=== PATIENT | female | born 1945 | race Caucasian/White ===

== ENCOUNTER 2021-01-28 10:16 | Emergency (ER) | payer MEDICARE, OTHER, SELFPAY ==
[2021-01-28 10:23] VITALS: BP 219/109; PULSE 100; O2SAT 98
[2021-01-28 10:28] VITALS: BP 209/82; PULSE 91; RESP 16; TEMP 36.2; O2SAT 98; BMI 39.4
--- NOTE | 2021-01-28 10:44 | ED.EPISTAXIS ---
History of Present Illness General Chief Complaint: Epistaxis <CHIO Sanderson Last Filed: 01/28/21 16:05> Stated Complaint: BLOODY NOSE, NOT ON BLOOD THINNERS <CHIO Sanderson Last Filed: 01/28/21 16:05> Time Seen by Provider: 01/28/21 10:21 <Marilyn Oliva NP - Last Filed: 01/28/21 16:05> Source: patient <CHIO Sanderson Last Filed: 01/28/21 16:05> Mode of arrival: ambulatory <CHIO Sanderson Last Filed: 01/28/21 16:05> Limitations: no limitations <CHIO Sanderson Last Filed: 01/28/21 16:05> History of Present Illness HPI Narrative: 75 yo female with past medical history of COPD, anemia, CHF, hypothyroidism, hypertension, DM, HLD here with complaints of epistaxis x 30 minutes. Patient tells me she was blowing her nose when she developed epistaxis. Not on anticoagulation. No SANTILLAN, dizziness, nausea, vomiting or vision changes. <CHIO Sanderson Last Filed: 01/28/21 16:05> Location: Yes bilateral nares <CHIO Sanderson Last Filed: 01/28/21 16:05> Related Data Home Medications: Previous Rx's Medication Instructions Recorded atorvastatin 40 mg tablet 40 mg PO BEDTIME 90 Days #90 tab 07/29/20 metformin 500 mg tablet 500 mg PO .five times a day 30 08/15/20 Days #150 tab amlodipine 5 mg tablet 5 mg PO DAILY #90 tab 09/07/20 gemfibrozil 600 mg tablet 600 mg PO BID #180 tab 09/07/20 glipizide 5 mg tablet 10 mg PO BID #360 tab 09/22/20 lorazepam 0.5 mg tablet 0.5 mg PO TID PRN 30 Days #90 tab 12/24/20 oxycodone 5 mg tablet 5 mg PO BID PRN 30 Days #60 tab 12/24/20 levothyroxine 200 mcg tablet 200 mcg PO DAILY #60 tab 12/25/20 <CHIO Sanderson Last Filed: 01/28/21 16:05> Allergies/Adverse Reactions: Allergies Allergy/AdvReac Type Severity Reaction Status Date / Time ibuprofen [From Motrin] Allergy Unknown swelling Verified 01/29/21 09:50 codeine [CODEINE] AdvReac Unknown SLEEPY Verified 01/29/21 09:50 <Marilyn Oliva NP - Last Filed: 01/28/21 16:05> Review of Systems Review of Systems: Yes all other systems are reviewed and are negative <Marilyn Oliva NP - Last Filed: 01/28/21 16:05> Constitutional: Constitutional: Reports no additional constitutional complaints, Denies body ache(s), Denies chills, Denies fever(s), Denies headache(s) and Denies weakness <Marilyn Oliva NP - Last Filed: 01/28/21 16:05> Eyes: Eyes: Reports no additional eye complaints and Denies change in vision <Marilyn Oliva NP - Last Filed: 01/28/21 16:05> ENT: Reports system reviewed and no additional complaints, except as documented, Denies dizziness, Denies headache(s), Reports epistaxis, Denies nasal congestion, Denies nasal discharge and Denies neck pain <Marilyn Oliva NP - Last Filed: 01/28/21 16:05> Cardiovascular: Cardiovascular: Reports no additional cardiovascular complaints, Denies chest pain, Denies leg edema and Denies dyspnea <Marilyn Oliva NP - Last Filed: 01/28/21 16:05> Respiratory: Respiratory: Reports no additional respiratory complaints, Denies cough and Denies dyspnea <Marilyn Oliva NP - Last Filed: 01/28/21 16:05> Gastrointestinal: Gastrointestinal: Reports no additional gastrointestinal complaints, Denies abdominal pain, Denies diarrhea, Denies nausea and Denies vomiting <Marilyn Oliva NP - Last Filed: 01/28/21 16:05> Genitourinary: Genitourinary: Reports no additional female genitourinary complaints and Denies urinary incontinence <Marilyn Oliva NP - Last Filed: 01/28/21 16:05> Musculoskeletal: Musculoskeletal: Reports no additional musculoskeletal complaints, Denies back pain, Denies arthralgias, Denies joint swelling, Denies neck pain, Denies numbness and Denies tingling <Marilyn Oliva NP - Last Filed: 01/28/21 16:05> Integumentary/Breasts: Skin/Breast: Reports system reviewed and no additional complaints, except as docu and Denies rash <Marilyn Oliva NP - Last Filed: 01/28/21 16:05> Neurologic: Reports system reviewed and no additional complaints, except as documented, Denies Abnormal speech present, Denies dizziness, Denies headache(s), Denies numbness, Denies tingling and Denies weakness <Marilyn Oliva NP - Last Filed: 01/28/21 16:05> [facility] Past Medical History Attestation statement: The following information was validated with the patient. <Marilyn Oliva NP - Last Filed: 01/28/21 16:05> Source: old records reviewed and nursing notes reviewed <Marilyn Oliva NP - Last Filed: 01/28/21 16:05> Medical History: Medical History (Updated 01/29/21 @ 11:03 by Neida Soto MD) Anxiety CHF (congestive heart failure) Chronic pain syndrome COPD (chronic obstructive pulmonary disease) Diabetes mellitus Essential hypertension Hypothyroidism Pernicious anemia Pure hypercholesterolemia <Marilyn Oliva NP - Last Filed: 01/28/21 16:05> Surgical History: Surgical History Deficient knowledge of leg surgery H/O left knee surgery History of appendectomy History of tonsillectomy and adenoidectomy <Marilyn Oliva NP - Last Filed: 01/28/21 16:05> Family History Family History: Family History Father CVD (cardiovascular disease) Mother No problems noted. Family/Other FH: mental illness <Marilyn Oliva NP - Last Filed: 01/28/21 16:05> Social History Social History: Social History Smoking Status: Former smoker Tobacco Type: Cigarette <Marilyn Oliva NP - Last Filed: 01/28/21 16:05> Physical Exam Vital Signs: Vital Signs: Last Vital Signs Temp 97.2 F 01/28/21 10:28 Pulse 73 01/28/21 10:51 Resp 20 01/28/21 10:51 BP 160/73 H 01/28/21 10:51 Pulse Ox 98 01/28/21 10:51 Body Mass Index 39.4 <Marilyn Oliva NP - Last Filed: 01/28/21 16:05> Vital Signs: Last Vital Signs Temp 97.2 F 01/28/21 10:28 Pulse 73 01/28/21 10:51 Resp 20 01/28/21 10:51 BP 160/73 H 01/28/21 10:51 Pulse Ox 98 01/28/21 10:51 Body Mass Index 39.4 <Wagner Ferrera MD - Last Filed: 02/12/21 07:43> Const: General: cooperative, healthy appearing, comfortable and no acute distress <Marilyn Oliva NP - Last Filed: 01/28/21 16:05> Orientation/consciousness: patient oriented x3 <Marilyn Oliva NP - Last Filed: 01/28/21 16:05> Limitations: no limitations <Marilyn Oliva NP - Last Filed: 01/28/21 16:05> HENMT: Head: Yes normal to inspection <Marilyn Oliva NP - Last Filed: 01/28/21 16:05> Ears: hearing grossly normal bilaterally <Marilyn Oliva NP - Last Filed: 01/28/21 16:05> General nose exam: Normal external nose present and Epistaxis present (Dried blood at the nares. Left nare no active, right nare small anterior) <Marilyn Oliva NP - Last Filed: 01/28/21 16:05> Face and sinus: Yes normal facial exam <Marilyn Oliva NP - Last Filed: 01/28/21 16:05> Mouth: Normal oral and palatal mucosa present <Marilyn Oliva NP - Last Filed: 01/28/21 16:05> Throat: Yes posterior oropharynx normal <Marilyn Oliva NP - Last Filed: 01/28/21 16:05> Eyes: General: appearance normal, both eyes and all related structures <Marilyn Oliva NP - Last Filed: 01/28/21 16:05> Pupils: Equal, round and reactive pupils present <Marilyn Oliva NP - Last Filed: 01/28/21 16:05> Neck: Neck: Yes normal visual inspection <Marilyn Oliva NP - Last Filed: 01/28/21 16:05> Chest: Chest palpation & inspection: normal inspection of the chest <Marilyn Oliva NP - Last Filed: 01/28/21 16:05> Resp: Effort & Inspection: normal respiratory effort <Marilyn Oliva NP - Last Filed: 01/28/21 16:05> Auscultation: clear to auscultation bilaterally <Marilyn Oliva NP - Last Filed: 01/28/21 16:05> Cardio: Rate: regular rate <Marilyn Oliva NP - Last Filed: 01/28/21 16:05> Rhythm: regular rhythm <Marilyn Oliva NP - Last Filed: 01/28/21 16:05> Peripheral pulses: Peripheral pulses 2+ throughout <Marilyn Oliva NP - Last Filed: 01/28/21 16:05> GI: Inspection: Yes normal to inspection <Marilyn Oliva NP - Last Filed: 01/28/21 16:05> Palpation (GI): Soft to palpation and nontender <Marilyn Oliva NP - Last Filed: 01/28/21 16:05> Auscultation: normal bowel sounds <Marilyn Oliva NP - Last Filed: 01/28/21 16:05> Back/Spine/Pelvis: Thoracic/Lumbar Spine: thoracic and lumbar spine normal to inspection <Marilyn Oliva NP - Last Filed: 01/28/21 16:05> Skin: General skin exam: no rashes or lesions noted <Marilyn Oliva NP - Last Filed: 01/28/21 16:05> Neuro: General: patient oriented x3, no focal motor deficits and normal sensation to monofilament <Marilyn Oliva NP - Last Filed: 01/28/21 16:05> Cranial nerves: Yes Equal, round and reactive pupils present <Marilyn Oliva NP - Last Filed: 01/28/21 16:05> Cognition (Neuro): normal cognition <Marilyn Oliva NP - Last Filed: 01/28/21 16:05> Speech: No Abnormal speech present <Marilyn Oliva NP - Last Filed: 01/28/21 16:05> Gait exam (Neuro): Normal gait present <Marilyn Oliva NP - Last Filed: 01/28/21 16:05> Motor exam (neuro): 5/5 motor strength present throughout <Marilyn Oliva NP - Last Filed: 01/28/21 16:05> Extrem: General: Yes normal to inspection <Marilyn Oliva NP - Last Filed: 01/28/21 16:05> Course Course Course Narrative: 75-year-old female here with epistaxis from bilateral nares times 30 minutes. No anticoagulation use. On arrival patient has 1 small area of epistaxis in the right anterior Reynoso. Left Reynoso no active bleeding. Will apply topical TXA for 30 minutes and reassess. 1120-packing removed. No active bleeding. Will monitor for short time prior to dispo. Blood pressure improving with no intervention. 1205-Patient monitored in ED for 2 hrs with no continued bleeding. Plan for discharge home. Reviewed worrisome signs and symptoms of when to return to the emergency department. Comfortable discharge home. <Marilyn Oliva NP - Last Filed: 01/28/21 16:05> I have reviewed the chart <Wagner Ferrera MD - Last Filed: 02/12/21 07:43> MDM - Epistaxis Medical Records Attestation: I reviewed the patient's medical records. <Marilyn Oliva NP - Last Filed: 01/28/21 16:05> Lab Data Attestation: I reviewed the patient's lab results. <Marilyn Oliva NP - Last Filed: 01/28/21 16:05> Discharge Plan Discharge Clinical Impression: Epistaxis <Marilyn Oliva NP - Last Filed: 01/28/21 16:05> Patient Disposition: Home, Self-Care <Marilyn Oliva NP - Last Filed: 01/28/21 16:05> Instructions: Nosebleed (ED) <Marilyn Oliva NP - Last Filed: 01/28/21 16:05> Additional Instructions: Keep the nose well lubricated with Vaseline or Aquaphor Avoid blowing the nose today No picking at the nose and any future blowing must be gentle <Marilyn Oliva NP - Last Filed: 01/28/21 16:05> Prescriptions: No Action atorvastatin 40 mg tablet 40 mg PO BEDTIME 90 Days Qty: 90 RF: 3 metformin 500 mg tablet 500 mg PO .five times a day 30 Days Qty: 150 RF: 11 gemfibrozil 600 mg tablet 600 mg PO BID Qty: 180 RF: 1 amlodipine 5 mg tablet 5 mg PO DAILY Qty: 90 RF: 1 glipizide 5 mg tablet 10 mg PO BID Qty: 360 RF: 1 lorazepam 0.5 mg tablet 0.5 mg PO TID PRN (Reason: anxiety) 30 Days Qty: 90 RF: 0 oxycodone 5 mg tablet 5 mg PO BID PRN (Reason: pain) 30 Days Qty: 60 RF: 0 levothyroxine 200 mcg tablet 200 mcg PO DAILY Qty: 60 RF: 3 <Marilyn Oliva NP - Last Filed: 01/28/21 16:05> Referrals: Neida Mirza MD [Primary Care Provider] - 2 days <Marilyn Oliva NP - Last Filed: 01/28/21 16:05> Interventions: ED Discharge Assessment Last Done: 01/28/21 12:55 <Marilyn Oliva NP - Last Filed: 01/28/21 16:05> Discharge Date/Time: 01/28/21 12:55 <Marilyn Oliva NP - Last Filed: 01/28/21 16:05>
[2021-01-28] MEDS: Tranexamic Acid 1,000 MG/10 ML VIAL 500 MG INTRANASAL (10:50)
[2021-01-28 10:51] VITALS: BP 160/73; PULSE 73; RESP 20; O2SAT 98
== END 2021-01-28 12:55 | disposition home or self-care (01) ==
PROVIDERS: Emergency Provider Emergency Medicine; PCP Internal Medicine
DX: R04.0 Epistaxis (principal); J44.9 Chronic obstructive pulmonary disease, unspecified; E11.9 Type 2 diabetes mellitus without complications; E03.9 Hypothyroidism, unspecified; Z87.891 Personal history of nicotine dependence; Z79.899 Other long term (current) drug therapy
CPT/HCPCS: 30901; 99284

== ENCOUNTER 2021-11-10 00:58 | Inpatient (IN) | payer MEDICARE, OTHER, SELFPAY ==
[2021-11-10] VITALS (37 sets, daily range): BP systolic 68–166; BP diastolic 17–88; PULSE 43–77; RESP 7–44; TEMP 33.7–36.8; O2SAT 3–100; BMI 48.6
--- NOTE | ~2021-11-10 | XR_ITS ---
EXAMINATION: XR CHEST CLINICAL INFORMATION: Shortness of breath COMPARISON: 06/16/2019 TECHNIQUE: Frontal view of the chest was obtained. FINDINGS: Cardiomegaly and pulmonary venous congestion. Bilateral perihilar patchy airspace opacities. Small bilateral pleural effusions suspected. No pneumothorax. XR/XR chest 1V IMPRESSION: Bilateral patchy airspace opacities could represent pulmonary edema or atypical pneumonitis.
--- NOTE | ~2021-11-10 | XR_ITS ---
EXAMINATION: XR CHEST CLINICAL INFORMATION: Dialysis, port placement COMPARISON: 11/10/2021 TECHNIQUE: Frontal view of the chest was obtained. FINDINGS: Catheter overlying the superior vena cava. There is no pneumothorax. Developing left basilar opacity may be infiltrate or atelectasis and or effusion. The right lung is comparable to previous. Findings suggest vascular congestion. XR/XR chest 1V IMPRESSION: Catheter overlying superior vena cava. There is no pneumothorax. Developing left basilar opacity. Attention to follow-up. There is vascular congestion here as well.
--- NOTE | ~2021-11-10 | CT_ITS ---
EXAMINATION: CT CHEST WITHOUT CONTRAST CT ABDOMEN AND PELVIS WITHOUT CONTRAST CLINICAL INFORMATION: Congestive heart failure. Chest pain and abdominal pain. Rule out third spacing. COMPARISON: Multiple previous chest x-rays with the last chest x-ray of 11/10/2021. Chest CT of 06/06/2019, 05/28/[address] scan of 05/20/2019. TECHNIQUE: Multidetector volumetric CT imaging of the chest, abdomen and pelvis is acquired without intravenous contrast administration. Postprocessing is performed at a dedicated workstation. Multiplanar reformatted images are submitted. This CT scan was performed using dose optimization techniques as appropriate to a performed exam including the following: *Automated exposure control *Adjustment of mA and/or kV according to patient size (this includes techniques or standardized protocols for targeted exams were dose is matched to indication/reason for exam; i.e. extremities or head) *Use of iterative reconstruction technique DLP: 2032 mGy-cm. FINDINGS: CHEST: There is no evidence of axillary, mediastinal or hilar adenopathy. Mild cardiomegaly. No pericardial effusion. Three-vessel coronary calcifications are noted. Trachea and central bronchi are well patent. Trace bilateral pleural effusions with mild dependent atelectasis in the lung bases. Trace effusions are noted in the bilateral fissure. There is interlobular septal thickening with faint scattered ground-glass opacities. The findings likely represent interstitial edema with mild alveolar edema. Additionally there is a more focal patchy airspace opacity in the posterior right upper lobe (series 5 image 20). Additional small patchy opacities noted in the more inferior right upper lobe. No discrete pulmonary nodules or masses are seen. The visualized chest wall soft tissues are grossly unremarkable. ABDOMEN AND PELVIS: The unenhanced liver, gallbladder, biliary tree, spleen and pancreas are unremarkable. No adrenal nodule. The kidneys are normal in size, shape and attenuation for patient's age. A 0.8 cm partially exophytic isodense lesion from the lateral cortex of the lower pole of the right kidney is a stable finding since previous CT of 05/20/2019 and probably represents a benign lesion/cyst. No evidence of radiopaque urinary tract calculi, hydroureteronephrosis or significant perinephric stranding. The stomach is decompressed. No abnormal small-bowel dilatation. The appendix is not clearly identified; however, there are no inflammatory changes in the expected location of the appendix. Colon is normal in caliber. No evidence of colonic wall thickening. There is moderate stool burden in the colon. No evidence of intestinal pneumatosis. Diffuse mesenteric stranding is noted. No free intraperitoneal air or fluid. There is diffuse anasarca in the visualized abdominal and pelvic wall. Mild thickening of the skin is noted in the lower abdomen/pelvis anteriorly. The bladder is decompressed due to Moyer catheter in place. Unremarkable CT appearance of the uterus and ovaries/adnexa. There is no evidence of pathologically enlarged lymph nodes. The aortoiliac vessels are normal in caliber. Moderate calcific atherosclerosis of the aorta. OSSEOUS STRUCTURES: There is no evidence of acute or suspicious osseous lesion in the chest, abdomen and pelvis. Multilevel degenerative changes in the spine. Mild degenerative changes in the bilateral hips. CT/CT abdomen pelvis wo con IMPRESSION: 1. Findings suggestive of mild pulmonary interstitial edema and probable minimal alveolar edema. Trace bilateral pleural effusions with associated bibasilar mild atelectasis. 2. Focal airspace opacities in the right upper lobe could be inflammatory or infectious in etiology. 3. No ascites. Diffuse anasarca in the visualized abdominal wall. Diffuse mesenteric stranding. 4. Moderate stool burden in the colon without evidence of abnormal bowel dilatation or bowel obstruction. 5. Cardiomegaly with 3-vessel coronary calcifications.
--- NOTE | ~2021-11-10 | XR_ITS ---
EXAMINATION: XR CHEST CLINICAL INFORMATION: Increased shortness of breath. Evaluate for congestive heart failure. COMPARISON: 11/10/2021 at 1:46 AM TECHNIQUE: Frontal view of the chest was obtained. FINDINGS: Stable cardiomegaly and pulmonary venous congestion, and bilateral perihilar patchy/streaky airspace opacities. No large pleural effusion. There may be small bilateral pleural effusions. No pneumothorax. XR/XR chest 1V IMPRESSION: Stable portable radiographic appearance of the chest. There could be interstitial and mild alveolar pulmonary edema, or atypical pneumonitis.
--- NOTE | 2021-11-10 01:26 | ED_ITS ---
HPI - SOB/Dyspnea General Chief Complaint: Dyspnea Stated Complaint: SOB 86% RA 96% 2LPM Time Seen by Provider: 11/10/21 01:11 Source: patient and EMS Limitations: no limitations History of Present Illness HPI Narrative: This is a 76-year-old female with history of COPD, CHF, pernicious anemia, hypertension, diabetes mellitus, who complains of worsening shortness of breath this evening. The patient denies any chest pain, cough, or fever. She denies having a nebulizer machine at home, does have an albuterol inhaler. She has noted chronic swelling in her legs which has worsened recently. She notes the erythema to her right leg is chronic. She denies any abdominal pain, nausea, sweats. Related Data Previous Rx's Medication Instructions Recorded glipizide 5 mg tablet 10 mg PO BID #360 tab 04/29/21 fluticasone 250 mcg-salmeterol 50 1 inh INHALATION BID 30 Days #60 ea 04/30/21 mcg/dose blistr powdr for inhalation (Advair Diskus) atorvastatin 40 mg tablet 40 mg PO BEDTIME 90 Days #90 tab 08/06/21 levothyroxine 200 mcg tablet 200 mcg PO DAILY #60 tab 08/26/21 oxycodone 5 mg tablet 5 mg PO BID PRN 30 Days #60 tab 08/28/21 amlodipine 5 mg tablet 5 mg PO DAILY #90 tab 08/31/21 metformin 500 mg tablet 500 mg PO .five times a day 30 09/03/21 Days #150 tab albuterol sulfate 90 mcg/actuation 2 inh INHALATION Q4-6H PRN 30 Days 09/23/21 aerosol inhaler (ProAir HFA) #6.7 g gemfibrozil 600 mg tablet 600 mg PO BID #180 tab 09/23/21 lorazepam 0.5 mg tablet 0.5 mg PO TID PRN 30 Days #90 tab 10/21/21 Allergies Allergy/AdvReac Type Severity Reaction Status Date / Time ibuprofen [From Motrin] Allergy Unknown swelling Verified 01/29/21 09:50 codeine [CODEINE] AdvReac Unknown SLEEPY Verified 01/29/21 09:50 Review of Systems Constitutional: Constitutional: Reports as per HPI Eyes: Eyes: Reports no additional eye complaints ENT: Reports system reviewed and no additional complaints, except as documented Cardiovascular: Cardiovascular: Reports edema and Reports dyspnea Respiratory: Respiratory: Denies cough and Reports dyspnea Gastrointestinal: Gastrointestinal: Denies abdominal pain, Denies nausea and Denies vomiting Musculoskeletal: Musculoskeletal: Reports no additional musculoskeletal complaints Integumentary/Breasts: Comments: Redness to right leg Neurologic: Reports system reviewed and no additional complaints, except as documented and Denies Sensory deficit (Neuro) [facility] Past Medical History Medical History (Updated 11/10/21 @ 02:08 by Iggy Ryan MD) Anxiety CHF (congestive heart failure) Chronic pain syndrome COPD (chronic obstructive pulmonary disease) Diabetes mellitus Essential hypertension Hypothyroidism Pernicious anemia Pure hypercholesterolemia Surgical History Deficient knowledge of leg surgery H/O left knee surgery History of appendectomy History of tonsillectomy and adenoidectomy Family History Family History Father CVD (cardiovascular disease) Mother No problems noted. Family/Other FH: mental illness Social History Social History Alcohol intake: unknown Patient Tobacco Use Status: Former Tobacco user Smoked in Last 30 Days: Yes Use of substances other than those prescribed or required for medical reasons: No Advance Directives: No Advance Directives Information Provided: Yes Physical Exam Vital Signs: Vital Signs: Last Vital Signs Temp 98.2 F 11/10/21 02:00 Pulse 49 L 11/10/21 02:00 Resp 22 H 11/10/21 02:00 BP 98/32 L 11/10/21 02:00 Pulse Ox 97 11/10/21 02:00 BMI result Body Mass Index 48.6 Const: Other: Patient morbidly obese, mildly lethargic appearing but not in respiratory distress, able to speak in full sentences General: cooperative, no acute distress and alert Orientation/consciousness: patient oriented x3 HENMT: Head: Yes normal to inspection Eyes: General: appearance normal, both eyes and all related structures Eyelids: Yes eyelids normal Conjunctivae: conjunctivae normal Pupils: Equal, round and reactive pupils present Neck: Neck: Yes normal visual inspection and Yes supple Chest: Chest palpation & inspection: normal inspection of the chest Resp: Effort & Inspection: normal respiratory effort Auscultation: clear to auscultation bilaterally Cardio: Rate: regular rate Rhythm: regular rhythm Heart sounds: S1 normal heart sound present, S2 normal heart sound present, no gallops, no murmurs and no rubs GI: Palpation (GI): Soft to palpation, nontender and Other GI palpation findings present (Non-distended) Auscultation: normal bowel sounds Skin: Other: Chronic venous stasis changes bilaterally with increased erythema to the right leg compared to the left Neuro: General: patient oriented x3, no focal motor deficits and CN's II-XI intact bilaterally Cranial nerves: Yes Equal, round and reactive pupils present Cognition (Neuro): normal cognition Motor exam (neuro): 5/5 motor strength present throughout Sensory Exam: No Sensory deficit (Neuro) Extrem: General: Yes normal to inspection and Yes no pedal edema Psych: Appearance: grossly normal Affect: normal affect MDM - SOB/Dyspnea MDM Narrative Medical decision making narrative: Patient with history of CHF, COPD, had worsened shortness of breath tonight. Patient does have chronic appearing leg edema. Patient has bradycardia, fused have a sinus rhythm. Patient's pulse oximetry came up to normal on 2 L nasal cannula. Chest x-ray does show marked cardiomegaly, as well as vascular congestion. Patient is being signed out to Dr. Perez at 02:05 AM Lab Data Result diagrams: 11/10/21 01:27 11/10/21 01:40 Labs: Lab Results 11/10/21 11/10/21 11/10/21 Range/Units 01:27 01:27 01:27 WBC 8.6 (4.8-10.8) X10*3/uL RBC 3.30 L (4.20-5.50) X10*6/uL Hgb 10.1 L (12.0-16.0) g/dl Hct 35.5 L (37.0-47.0) % MCV 107.6 H (80.0-98.0) fL MCH 30.6 (27.0-33.0) pg MCHC 28.5 L (31.0-35.0) g/dl RDW 16.4 H (11.0-16.0) % Plt Count 296 (160-400) X10*3/uL MPV 10.6 (9.4-12.3) fL Immature Gran % (Auto) 1.3 H (0.0-0.4) % Neut % (Auto) 91.5 H (45-73) % Lymph % (Auto) 2.6 L (20-40) % [place] % (Auto) 4.3 (2-11) % Eos % (Auto) 0.1 (0-4) % Baso % (Auto) 0.2 (0-2) % Lymph # (Auto) 0.2 L (1.2-4.9) X10*3/uL [place] # (Auto) 0.4 (0.1-1.2) X10*3/uL Eos # (Auto) 0.0 (0.0-0.4) X10*3/uL Baso # (Auto) 0.0 (0.0-0.2) X10*3/uL Abs Immat Gran (auto) 0.11 H (0.00-0.03) X10*3/uL Absolute Neuts (auto) 7.8 (2.0-8.3) x10*3/uL Absolute Nucleated RBC 0.030 H (0.0-0.012) X10*3/uL Nucleated RBC % (auto) 0.4 H (0.0-0.2) /100WBC Smear Tech's Comments VERIFIED Troponin I High Sens 37.4 H (<3.5-17.0) ng/L B-Natriuretic Peptide 900 H (<100) pg/mL COVID-19 (CAROLYN) Negative (Negative) COVID-19 Clin Com See Note Imaging Data Chest x-ray: Attestation: I personally reviewed and interpreted this imaging study as follows: My impression: Cardiomegaly, congestive heart failure ECG Data Attestation: I personally reviewed and interpreted this ECG as follows: ECG interpretation date: 11/10/21 ECG interpretation time: 02:03 Interpretation: Sinus bradycardia with a rate of 48. Left axis deviation. Nonspecific intraventricular conduction delay Discharge Plan Discharge Clinical Impression: CHF (congestive heart failure) Prescriptions: No Action glipizide 5 mg tablet 10 mg PO BID Qty: 360 RF: 2 fluticasone propion-salmeterol [Advair Diskus] 250-50 mcg/dose blister with device 1 inh inhalation BID 30 Days Qty: 60 RF: 6 atorvastatin 40 mg tablet 40 mg PO BEDTIME 90 Days Qty: 90 RF: 3 levothyroxine 200 mcg tablet 200 mcg PO DAILY Qty: 60 RF: 3 oxycodone 5 mg tablet 5 mg PO BID PRN (Reason: pain) 30 Days Qty: 60 RF: 0 amlodipine 5 mg tablet 5 mg PO DAILY Qty: 90 RF: 0 metformin 500 mg tablet 500 mg PO .five times a day 30 Days Qty: 150 RF: 11 gemfibrozil 600 mg tablet 600 mg PO BID Qty: 180 RF: 1 albuterol sulfate [ProAir HFA] 90 mcg/actuation HFA aerosol inhaler 2 inh inhalation Q4-6H PRN (Reason: shortness of breath or wheezing) 30 Days Qty: 6.7 RF: 0 lorazepam 0.5 mg tablet 0.5 mg PO TID PRN (Reason: anxiety) 30 Days Qty: 90 RF: 0
[2021-11-10 01:35] LABS: Basophils Percent Auto 0.2 % (0-2); Eosinophils Percent Auto 0.1 % (0-4); Hematocrit 35.5 % (37.0-47.0); Hemoglobin 10.1 g/dl (12.0-16.0); Imm Gran Abs Auto 0.11 X10*3/uL (0.00-0.03); Imm Gran Pct Auto 1.3 % (0.0-0.4); Lymphocytes Absolute Auto 0.2 X10*3/uL (1.2-4.9); Lymphocytes Percent Auto 2.6 % (20-40); MANUAL DIFF FLAG SCAN; Mean Corpuscular HGB Conc 28.5 g/dl (31.0-35.0); Mean Corpuscular Hemoglobin 30.6 pg (27.0-33.0); Mean Corpuscular Volume 107.6 fL (80.0-98.0); Mean Platelet Volume 10.6 fL (9.4-12.3); Monocytes Absolute Auto 0.4 X10*3/uL (0.1-1.2); Monocytes Percent Auto 4.3 % (2-11); NRBC Pct Auto 0.4 /100WBC (0.0-0.2); Neutrophils Absolute Auto 7.8 x10*3/uL (2.0-8.3); Neutrophils Percent Auto 91.5 % (45-73); Platelet Count 296 X10*3/uL (160-400); Red Cell Distribution Width 16.4 % (11.0-16.0); SCAN SMEAR FLAG 1; White Blood Count 8.6 X10*3/uL (4.8-10.8)
[2021-11-10] MEDS: Albuterol/Iprat 2.5/0.5MG 3 ML AMPUL.NEB INHALE (01:45)
[2021-11-10 01:55] LABS: COVID-19 Test Negative (Negative)
[2021-11-10 01:56] LABS: B Type Natriuretic Peptide 900 pg/mL (<100); Troponin-I High Sensitivity 37.4 ng/L (<3.5-17.0)
[2021-11-10 02:07] LABS: SLIDE REVIEW VERIFIED
[2021-11-10 02:17] LABS: Lactic Acid 6.4 mmol/L (0.5-2.0)
[2021-11-10 02:17] LABS: Alanine Aminotransferase 19 U/L (0-31); Albumin Level 3.4 g/dL (3.5-5.0); Alkaline Phosphatase 149 U/L (39-117); Anion Gap 24 (12-20); Aspartate Amino Transferase 24 U/L (5-31); Bilirubin Total 0.3 mg/dL (0.0-1.0); Blood Urea Nitrogen 75 mg/dL (9-16); Carbon Dioxide 10 mmol/L (22-29); Chloride 114 mmol/L (96-108); Creatinine Clr Calc Pharmacy 20.2; Estimated Glomerular Filt Rate 15; Glucose Random 125 mg/dL (60-115); Magnesium 2.6 mg/dL (1.6-2.6); Potassium 8.4 mmol/L (3.3-5.1); Sodium 140 mmol/L (135-145); Total Protein 6.4 g/dL (6.5-8.0)
[2021-11-10] MEDS: 0.9 % Sodium Chloride 500 ML 999 ML IV ×2 (02:30→03:23)
[2021-11-10] MEDS: Calcium Gluconate/NaCl,Iso-Osm 1 GM/50 ML PLAST..BAG IV (02:37)
[2021-11-10] MEDS: Dextrose 50 % 25 GM/50 ML SYRINGE IVPUSH ×2 (02:40→05:12)
[2021-11-10] MEDS: Insulin Regular, Human 100 UNIT/ML 3 ML VIAL 10 UNIT IVPUSH ×2 (02:40→05:11)
[2021-11-10 02:43] LABS: Appearance Urine TURBID; Color Urine RED; Glucose Urine UA NEG (NEG); Leukocyte Esterase Urine 2+ (NEG); Nitrite Urine NEG (NEG); PH 5.5 (5.0-8.0); Specific Gravity - Urine >= 1.030 (1.005-1.025); UACC Culture Trigger YES; Urine Blood 2+ (NEG); Urine Ketones 5 MG/DL (NEG); Urine Protein 3+ MG/DL (NEG-TRACE)
[2021-11-10] MEDS: Hydrocortisone Sod Succ/PF 100 MG VIAL IVPUSH (02:44)
[2021-11-10] MEDS: Sodium Bicarbonate 8.4% 50 MEQ/50 ML SYRINGE IVPUSH ×2 (02:45→05:12)
[2021-11-10 02:59] LABS: Bacteria Urine 4+ /LPF; Mucus Urine TRACE /LPF; Renal Epithelial Cells Urine TRACE /LPF; Squamous Epithelial Cell Urine 1+ /LPF; WBC Clumps Urine NOTED
[2021-11-10 03:02] LABS: Thyroid Stimulating Hormone 0.67 uIU/mL (0.32-4.0)
[2021-11-10] MEDS: cefTRIAXone sodium 1 GM in 0.9 % Sodium Chloride 50 ML IV ×2 (03:20→23:57)
[2021-11-10 03:50] LABS: Reflex Lactate? Lactic Acid Added
[2021-11-10 04:12] LABS: VBG Base Excess -17.6 mmol/L; VBG HCO3 10 mmol/L (22-26); VBG pCO2 29 mmHg; VBG pH 7.12 (7.32-7.43); VBG pO2 221 mmHg
[2021-11-10 04:13] LABS: Venous Blood Gas Refer to POC result
[2021-11-10 04:42] LABS: ~Lactic Acid-LAB USE ONLY 5.4 mmol/L (0.5-2.0)
[2021-11-10 04:42] LABS: Anion Gap 24 (12-20); Blood Urea Nitrogen 73 mg/dL (9-16); Calcium 7.9 mg/dL (8.4-10.2); Carbon Dioxide 11 mmol/L (22-29); Chloride 114 mmol/L (96-108); Creatinine Clr Calc Pharmacy 20.5; Estimated Glomerular Filt Rate 15; Glucose Random 121 mg/dL (60-115); Phosphorus 5.8 mg/dL (2.7-4.5); Sodium 141 mmol/L (135-145)
[2021-11-10] MEDS: Sodium Polystyrene Sulfon/Sorb 15 GM/60 ML ORAL.SUSP 45 GM PO ×2 (05:11→09:32)
[2021-11-10] MEDS: 0.9 % Sodium Chloride 500 ML IV (05:12)
--- NOTE | 2021-11-10 06:10 | PC.NURSE ---
Pt now tachypneic and increasing WOB- with noted SPO2 desaturation reported to md. RR in mid 30s shallow. Provider called to bedside. Pt remains Hypotensive, reports increased anxiety Plan: pt patient on HFNC at 55Lpm with titiration of FIO2 and repeat chest xr.
--- NOTE | 2021-11-10 06:18 | PC.NURSE ---
CXR obtained. Pt on HFNC at this time,
[2021-11-10 06:20] LABS: Reflex Lactate? 2 Y
--- NOTE | 2021-11-10 06:22 | PC.NURSE ---
HFNC settings 55L @ 55%
--- NOTE | 2021-11-10 06:41 | PC.NURSE ---
From temp sense francisco placement: approximately 21ml of Urine output.
[2021-11-10 07:24] LABS: ~Lactic Acid-LAB USE ONLY 5.1 mmol/L (0.5-2.0)
[2021-11-10 08:58] LABS: Acetaminophen LAB 5 mcg/mL (<30); Salicylate < 5.0 mg/dL (15-30)
--- NOTE | 2021-11-10 10:53 | W.PM.CCCN ---
History of Present Illness Data of Consult Service Date: 11/10/21 Requesting physician: Jennifer Tenorio Primary Care Provider: Unknown Physician HPI Reason for consult: hyperkalemia in the face of acute renal failure 76-year-old morbidly obese female who is a type 2 diabetic on metformin and glipizide also a hypertensive underlying COPD with bronchospasm and hyperlipidemic on a toward the statin who presents with profound weakness to the point where she was unable to stand without assistance off the toilet and was literally weight but no loss of consciousness no distinct chest pain or shortness of breath but had a very sallow color borderline blood pressure in the emergency room sinus bradycardia with wide QRS and a complete left bundle branch block pattern and with just mildly prolonged QT interval of about 480-490 milliseconds and a QRS duration of 130 milliseconds who despite Moyer catheter remains an uric over several hours and I had started her on a bicarb drip profoundly acidotic with a pH of 7.1 hyperkalemic initially at 8.4 treated and then came down to 8 then treated yet again with a profound fecal output and now down to 7 with slight narrowing of the QRS complex but pH still remains a 7.1 and the patient remains virtually an uric and it is a combination of a positive anion gap metabolic acidosis contributed to by a significant lactic acidosis which could be the metformin in the face of an urea in addition to the renal failure and she is frankly uremic bedside echo showed fair preservation with 55% ejection fraction of her left ventricular reserve no distinct right ventricular dilatation and no primary valve or pericardial disease she is a treated hypothyroid on 200 mcg of levothyroxine I have discussed this with the renal consult and we both agree she needs urgent dialysis and a bring her to the ICU for placement of a dialysis catheter Review of Systems Review of Systems: Yes all other systems are reviewed and are negative [facility] Past Medical History Medical History (Updated 11/10/21 @ 14:45 by Xander Painter MD) Anxiety CHF (congestive heart failure) Chronic pain syndrome COPD (chronic obstructive pulmonary disease) Diabetes mellitus Essential hypertension Hypothyroidism Left bundle branch block Morbid obesity Pernicious anemia Pure hypercholesterolemia Family History Family History Father CVD (cardiovascular disease) Mother No problems noted. Family/Other FH: mental illness Surgical History Surgical History Deficient knowledge of leg surgery H/O left knee surgery History of appendectomy History of tonsillectomy and adenoidectomy Social History Social History Alcohol intake: unknown Patient Tobacco Use Status: Former Tobacco user Smoked in Last 30 Days: Yes Use of substances other than those prescribed or required for medical reasons: No Advance Directives: No Advance Directives Information Provided: Yes Meds Allergies Allergy/AdvReac Type Severity Reaction Status Date / Time ibuprofen [From Motrin] Allergy Unknown swelling Verified 01/29/21 09:50 codeine [CODEINE] AdvReac Unknown SLEEPY Verified 01/29/21 09:50 Active Medications: Current Medications Sodium Bicarbonate 100 meq/ (Dextrose) 1,000 mls @ 50 mls/hr IV .Q20H GEO Physical Exam Vital Signs: Vital Signs: Last Vital Signs Temp 96.8 F 11/10/21 07:03 Pulse 60 11/10/21 09:29 Resp 22 H 11/10/21 09:29 BP 156/59 H 11/10/21 10:15 Pulse Ox 100 11/10/21 09:29 BMI result Body Mass Index 48.6 patient is awake and oriented but very weak skin color is sallow with with very severe bilateral stasis dermatitis and unfortunately f ilthy abdomen is massively obese but no organome madai chest essentially is clear even by radiographic imaging cardiac exam shows preserved reserve by bedside echo Results Labs CBC & Chem 7: 11/10/21 01:27 11/10/21 13:06 Labs: Short CBC 11/10/21 Range/Units 01:27 WBC 8.6 (4.8-10.8) X10*3/uL Hgb 10.1 L (12.0-16.0) g/dl Hct 35.5 L (37.0-47.0) % Plt Count 296 (160-400) X10*3/uL BMP 11/10/21 11/10/21 01:40 03:57 Sodium 140 141 Potassium 8.4 H* 8.0 H* Chloride 114 H 114 H Carbon Dioxide 10 L* 11 L BUN 75 H 73 H Creatinine 3.01 H 2.97 H Calcium 8.0 L 7.9 L Cardiac Enzymes 11/10/21 Range/Units 03:57 Total Creatine Kinase 151 H (26-140) U/L Liver Function 11/10/21 Range/Units 01:40 Total Bilirubin 0.3 (0.0-1.0) mg/dL AST 24 (5-31) U/L ALT 19 (0-31) U/L Alkaline Phosphatase 149 H (39-117) U/L Albumin 3.4 L (3.5-5.0) g/dL Urine 11/10/21 Range/Units 02:31 Urine Color RED A Urine Appearance TURBID Urine pH 5.5 (5.0-8.0) Ur Specific [place] >= 1.030 H (1.005-1.025) Urine Protein 3+ H (NEG-TRACE) MG/DL Urine Glucose (UA) NEG (NEG) MG/DL Assessment and Plan (1) Acute renal failure: Status: Acute (2) Acute hyperkalemia: Status: Acute (3) Urinary tract infection: Status: Acute (4) Pernicious anemia: Status: Acute (5) COPD (chronic obstructive pulmonary disease): Status: Acute (6) Hypothyroidism: Qualifiers: Hypothyroidism type: unspecified Qualified Code(s): E03.9 - Hypothyroidism, unspecified Status: Acute (7) Diabetes mellitus: Qualifiers: Diabetes mellitus type: type 2 Diabetes mellitus long-term insulin use: 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
[2021-11-10] MEDS: Sodium Bicarbonate 8.4% 100 MEQ in Dextrose 5 % 900 ML 50 MEQ IV (11:59)
[2021-11-10 13:29] LABS: Venous Blood Gas Refer to POC result
[2021-11-10 13:47] LABS: VBG Base Excess -15.9 mmol/L; VBG HCO3 12 mmol/L (22-26); VBG pCO2 38 mmHg; VBG pH 7.11 (7.32-7.43); VBG pO2 186 mmHg
[2021-11-10 14:17] LABS: Anion Gap 27 (12-20); Blood Urea Nitrogen 78 mg/dL (9-16); Calcium 7.5 mg/dL (8.4-10.2); Carbon Dioxide 11 mmol/L (22-29); Chloride 116 mmol/L (96-108); Creatinine Clr Calc Pharmacy 19.5; Estimated Glomerular Filt Rate 15; Glucose Random 131 mg/dL (60-115); Sodium 147 mmol/L (135-145)
[2021-11-10 14:18] LABS: Erythrocyte Sedimentation Rate 20 MM/HR (0-20)
[2021-11-10 14:25] LABS: Lactic Acid 4.8 mmol/L (0.5-2.0)
[2021-11-10 15:11] LABS: Glucose, Whole Blood 117 mg/dL (60-115)
[2021-11-10 15:45] LABS: Reflex Lactate? Lactic Acid Added
[2021-11-10] MEDS: Midazolam HCl/PF 2 MG/2 ML VIAL IVPUSH (16:05)
--- NOTE | 2021-11-10 16:31 | PHA.MEDREC ---
Pharmacy Consult ? Medication Reconciliation Pharmacy has completed the medication reconciliation Double checked med rec done by nurse.
--- NOTE | 2021-11-10 17:23 | P.CONNP_ITS ---
History of Present Illness Reason for Consult Consult date: 11/10/21 Reason for consult: MARJORIE Chief Complaint Chief complaint: Weakness/acute renal failure/hyperkalemia History of Present Illness Narrative: 76 yr old woman with DM comes with severe acidosis , Hyperkalemia - 8.4 and Marjorie She was on metformin prior to admission. Initially treated medically in ER . K remains at 7.0 I was consulted by ICU attending requesting emegency dialysis. Review of Systems Review of Systems Unable to obtain due to mentation. [facility] Past Medical History Medical History (Updated 11/10/21 @ 14:45 by Xander Painter MD) Anxiety CHF (congestive heart failure) Chronic pain syndrome COPD (chronic obstructive pulmonary disease) Diabetes mellitus Essential hypertension Hypothyroidism Left bundle branch block Morbid obesity Pernicious anemia Pure hypercholesterolemia Family History Family History Father CVD (cardiovascular disease) Mother No problems noted. Family/Other FH: mental illness Surgical History Surgical History Deficient knowledge of leg surgery H/O left knee surgery History of appendectomy History of tonsillectomy and adenoidectomy Social History Social History Household Members: Family and Children Housing: House Do you presently have visiting nurse or other home services: No Alcohol intake: unknown Patient Tobacco Use Status: Former Tobacco user Tobacco use type: Cigarette Smoked in Last 30 Days: No Patient Interested in Nicotine Replacement: No Patient Given Instructions on How to Stop Smoking: No Second Hand Smoke Exposure: No Use of substances other than those prescribed or required for medical reasons: No Currently Displaying Signs/Symptoms of Drug Intoxication Withdrawal: No Have you been hit, kicked, punched, or otherwise hurt by someone within the past year? If so, by whom?: No Do you feel safe in your current relationship?: No Is there a partner from a previous relationship who is making you feel unsafe now?: No Are you made to feel afraid or neglected: No Advance Directives: No Advance Directives Information Provided: Yes Do you have thoughts of harming others: None Do you have a plan to hurt others: No Plan Recently lost weight without trying: No Eating poorly because of decreased appetite: No Nutrition Risks: No Nutritional Risk and Diabetes new onset/Uncontrolled : No Current occupational status: disabled Meds Allergies Allergy/AdvReac Type Severity Reaction Status Date / Time ibuprofen [From Motrin] Allergy Unknown swelling Verified 01/29/21 09:50 codeine [CODEINE] AdvReac Unknown SLEEPY Verified 01/29/21 09:50 Active Medications: Current Medications Dextrose (Dextrose 50 % 25 Gm/50 Ml Syringe) 25 gm IVPUSH Q15M PRN; Protocol PRN Reason: per Hypoglycemia Standing Ord. Glucose (Glucose Gel 15 Gm Gel..Gram.) 15 gm PO Q15M PRN; Protocol PRN Reason: per Hypoglycemia Standing Ord. Heparin Sodium (Porcine) (Heparin Sodium,Porcine 5,000 Unit/Ml Vial) 5,000 unit SUBCUT Q8H GEO Sodium Bicarbonate 100 meq/ (Dextrose) 1,000 mls @ 50 mls/hr IV .Q20H [facility] Last Admin: 11/10/21 11:59 Dose: 50 mls/hr Documented by: Pantoprazole Sodium 40 mg/ (Sodium Chloride) 110 mls @ 400 mls/hr IV DAILY@0630 [facility] Insulin Human Lispro (Insulin Lispro 100 Unit/Ml 3 Ml Vial) 0 unit SUBCUT Q6H [facility]; Protocol Last Admin: 11/10/21 15:09 Dose: Not Given Documented by: Levothyroxine Sodium (Levothyroxine Sodium 100 Mcg Vial) 100 mcg IVPUSH DAILY [facility] Physical Exam Vital Signs: Last Vital Signs Temp 97.2 F 11/10/21 14:38 Pulse 72 11/10/21 16:03 Resp 21 H 11/10/21 16:59 BP 151/47 H 11/10/21 16:03 Pulse Ox 97 11/10/21 16:03 BMI result Body Mass Index 48.6 Const Other: Ill appearing. Responds to pain Lungs with rhonchi Hrt- Sinus yuri, No S3 or S4 Abd soft with BS Ns No myoclonus Ext-Erythema Results Lab Results Result Diagrams: 11/10/21 01:27 11/11/21 13:53 Lab results: Chemistry 11/10/21 11/10/21 11/10/21 01:40 03:57 13:06 Sodium 140 141 147 H Potassium 8.4 H* 8.0 H* 7.0 H* Carbon Dioxide 10 L* 11 L 11 L BUN 75 H 73 H 78 H Creatinine 3.01 H 2.97 H 3.13 H Calcium 8.0 L 7.9 L 7.5 L Phosphorus 5.8 H Hematology 11/10/21 01:27 WBC 8.6 Hgb 10.1 L Plt Count 296 Urinalysis 11/10/21 02:31 Urine Color RED A Urine Appearance TURBID Urine pH 5.5 Ur Specific [place] >= 1.030 H Urine Protein 3+ H Urine Glucose (UA) NEG Urine Ketones 5 Urine Blood 2+ H Urine Nitrite NEG Ur Leukocyte Esterase 2+ H Urine RBC 1-4 Urine WBC 76-150 H Ur Squamous Epith Cells 1+ Assessment and Plan (1) Lactic acidosis: Status: Acute (2) Acute renal failure: Status: Acute (3) Acute hyperkalemia: Status: Acute Will arrange for emergency dialysis Low K bath to correct hyperkalemia DC Metformin Agree with current IVF Management discussed with ICU attending. Procedures Date of Service Date of Service: 11/10/21
[2021-11-10] MEDS: Heparin Sodium,Porcine 5,000 UNIT/ML VIAL 5000 UNIT SUBCUT ×2 (17:28→23:56)
--- NOTE | 2021-11-10 17:50 | W.PM.CCHP ---
Procedures Date of Service Date of Service: 11/10/21 Abscess I/D Consent for Procedure: Elective - informed consent obtained Procedure Note Procedure Note: the patient presents with acute uremia with profound metabolic acidosis and intractable pH of 7.1 combination of uremia and lactic acidosis from metformin as well as marked hyperkalemia at 8.4 therefore after sterile preparation and draping in the usual fashion utilizing ultrasound guidance via the right internal jugular vein gained easy entry without complication passing retrograde with Seldinger technique J tipped guidewire and progressive dilators and then a 13 Portuguese and 20 cm length triple-lumen dialysis catheter without complication and by chest x-ray the no pneumothorax no significant bleeding position in the tip in the right atrium was perfect and then sterilely dressed and awaiting dialysis
--- NOTE | 2021-11-10 17:52 | PM.CCHP ---
History of Present Illness Date of Service: 11/10/21 Attending physician on admission: Xander Painter Chief Complaint: weakness 76-year-old morbidly obese female complaining of weakness noted to be in a significant sinus bradycardia with a wide QRS complex duration 130 milliseconds QT prolongation 490 milliseconds with symptomatic sinus bradycardia very weak very sallow and noted to be uremic with a BUN of 80 creatinine of 3 pH of 7.1 potassium of 8.4 and then we began to treat the potassium unknown type 2 diabetic and treated hypothyroidism with underlying COPD pernicious anemia and hyperlipidemia because the because she remained virtually an uric with persistent metabolic acidosis but improving potassium down to 7.0 but still dangerous course that required short-term dialysis was chosen patient agreed after having explained and I proceeded to place a triple-lumen 13 Vincentian dialysis catheter via the right internal jugular vein without complication bedside echo shows fairly preserved left ventricular systolic reserve and CT scan of the chest was really Tinel consistent with interstitial pulmonary edema Review of Systems Review of Systems: Yes all other systems are reviewed and are negative [facility] Past Medical History Medical History (Updated 11/10/21 @ 14:45 by Xander Painter MD) Anxiety CHF (congestive heart failure) Chronic pain syndrome COPD (chronic obstructive pulmonary disease) Diabetes mellitus Essential hypertension Hypothyroidism Left bundle branch block Morbid obesity Pernicious anemia Pure hypercholesterolemia Family History Family History Father CVD (cardiovascular disease) Mother No problems noted. Family/Other FH: mental illness Surgical History Surgical History Deficient knowledge of leg surgery H/O left knee surgery History of appendectomy History of tonsillectomy and adenoidectomy Social History Social History Alcohol intake: unknown Patient Tobacco Use Status: Former Tobacco user Smoked in Last 30 Days: Yes Use of substances other than those prescribed or required for medical reasons: No Advance Directives: No Advance Directives Information Provided: Yes Meds Allergies Allergy/AdvReac Type Severity Reaction Status Date / Time ibuprofen [From Motrin] Allergy Unknown swelling Verified 01/29/21 09:50 codeine [CODEINE] AdvReac Unknown SLEEPY Verified 01/29/21 09:50 Active Medications: Current Medications Dextrose (Dextrose 50 % 25 Gm/50 Ml Syringe) 25 gm IVPUSH Q15M PRN; Protocol PRN Reason: per Hypoglycemia Standing Ord. Glucose (Glucose Gel 15 Gm Gel..Gram.) 15 gm PO Q15M PRN; Protocol PRN Reason: per Hypoglycemia Standing Ord. Heparin Sodium (Porcine) (Heparin Sodium,Porcine 5,000 Unit/Ml Vial) 5,000 unit SUBCUT Q8H [facility] Last Admin: 11/10/21 17:28 Dose: 5,000 unit Documented by: Sodium Bicarbonate 100 meq/ (Dextrose) 1,000 mls @ 50 mls/hr IV .Q20H GEO Last Admin: 11/10/21 11:59 Dose: 50 mls/hr Documented by: Pantoprazole Sodium 40 mg/ (Sodium Chloride) 110 mls @ 400 mls/hr IV DAILY@0630 [facility] Insulin Human Lispro (Insulin Lispro 100 Unit/Ml 3 Ml Vial) 0 unit SUBCUT Q6H [facility]; Protocol Last Admin: 11/10/21 15:09 Dose: Not Given Documented by: Levothyroxine Sodium (Levothyroxine Sodium 100 Mcg Vial) 100 mcg IVPUSH DAILY [facility] Physical Exam Vital Signs: Vital Signs: Last Vital Signs Temp 97 F 11/10/21 17:35 Pulse 77 11/10/21 17:35 Resp 26 H 11/10/21 17:35 BP 166/63 H 11/10/21 17:35 Pulse Ox 100 11/10/21 17:35 BMI result Body Mass Index 48.6 she was awake and she was oriented at a able to carry on conversation and make judgment abdomen was obese but by CT scan no organomegaly no free fluid no free air a chest without the use of accessory muscles nor diaphragmatic effort nonetheless still plus Thorek bedside echo showing preserved systol ic reserve of the ventricle bilateral peripheral stasis dermatitis absolutely filthy but no evidence of cellulitis Results Labs CBC and Chem 7: 11/10/21 01:27 11/10/21 13:06 Labs: Laboratory Results - last 24 hr 11/10/21 11/10/21 11/10/21 01:27 01:27 01:27 MCV 107.6 H MCH 30.6 MCHC 28.5 L RDW 16.4 H Plt Count 296 MPV 10.6 Immature Gran % (Auto) 1.3 H Neut % (Auto) 91.5 H Lymph % (Auto) 2.6 L [place] % (Auto) 4.3 Eos % (Auto) 0.1 Baso % (Auto) 0.2 Lymph # (Auto) 0.2 L [place] # (Auto) 0.4 Eos # (Auto) 0.0 Baso # (Auto) 0.0 Abs Immat Gran (auto) 0.11 H Absolute Neuts (auto) 7.8 Absolute Nucleated RBC 0.030 H Nucleated RBC % (auto) 0.4 H Smear Tech's Comments VERIFIED ESR VBG pH VBG pCO2 VBG pO2 VBG HCO3 VBG O2 Saturation VBG Base Excess Anion Gap Estim Creat Clear Calc Estimated GFR POC Glucose Random Glucose Lactic Acid Lactic Acid F/U @ 2Hr Lactic Acid F/U @ 4Hr Calcium Phosphorus Magnesium Total Bilirubin AST ALT Alkaline Phosphatase Total Creatine Kinase Troponin I High Sens 37.4 H B-Natriuretic Peptide 900 H Total Protein Albumin TSH Urine Color Urine Appearance Urine pH Ur Specific [place] Urine Protein Urine Glucose (UA) Urine Ketones Urine Blood Urine Nitrite Ur Leukocyte Esterase Urine RBC Urine WBC Urine WBC Clumps Ur Squamous Epith Cells Ur Renal Epithelial Cell Urine Bacteria Granular Casts Urine Mucus Salicylates Acetaminophen COVID-19 (CAROLYN) Negative COVID-19 Clin Com See Note 11/10/21 11/10/21 11/10/21 01:40 01:46 02:31 MCV MCH MCHC RDW Plt Count MPV Immature Gran % (Auto) Neut % (Auto) Lymph % (Auto) [place] % (Auto) Eos % (Auto) Baso % (Auto) Lymph # (Auto) [place] # (Auto) Eos # (Auto) Baso # (Auto) Abs Immat Gran (auto) Absolute Neuts (auto) Absolute Nucleated RBC Nucleated RBC % (auto) Smear Tech's Comments ESR VBG pH VBG pCO2 VBG pO2 VBG HCO3 VBG O2 Saturation VBG Base Excess Anion Gap 24 H Estim Creat Clear Calc 20.2 Estimated GFR 15 POC Glucose Random Glucose 125 H Lactic Acid 6.4 H* Lactic Acid F/U @ 2Hr Lactic Acid F/U @ 4Hr Calcium 8.0 L Phosphorus Magnesium 2.6 Total Bilirubin 0.3 AST 24 ALT 19 Alkaline Phosphatase 149 H Total Creatine Kinase Troponin I High Sens B-Natriuretic Peptide Total Protein 6.4 L Albumin 3.4 L TSH 0.67 Urine Color RED A Urine Appearance TURBID Urine pH 5.5 Ur Specific [place] >= 1.030 H Urine Protein 3+ H Urine Glucose (UA) NEG Urine Ketones 5 Urine Blood 2+ H Urine Nitrite NEG Ur Leukocyte Esterase 2+ H Urine RBC 1-4 Urine WBC 76-150 H Urine WBC Clumps NOTED Ur Squamous Epith Cells 1+ Ur Renal Epithelial Cell TRACE Urine Bacteria 4+ Granular Casts 10-14 Urine Mucus TRACE Salicylates Acetaminophen COVID-19 (CAROLYN) COVID-19 Clin Com 11/10/21 11/10/21 11/10/21 03:57 04:05 04:12 MCV MCH MCHC RDW Plt Count MPV Immature Gran % (Auto) Neut % (Auto) Lymph % (Auto) [place] % (Auto) Eos % (Auto) Baso % (Auto) Lymph # (Auto) [place] # (Auto) Eos # (Auto) Baso # (Auto) Abs Immat Gran (auto) Absolute Neuts (auto) Absolute Nucleated RBC Nucleated RBC % (auto) Smear Tech's Comments ESR VBG pH 7.12 L* VBG pCO2 29 VBG pO2 221 VBG HCO3 10 L VBG O2 Saturation 99.0 VBG Base Excess -17.6 Anion Gap 24 H Estim Creat Clear Calc 20.5 Estimated GFR 15 POC Glucose Random Glucose 121 H Lactic Acid Lactic Acid F/U @ 2Hr 5.4 H* Lactic Acid F/U @ 4Hr Calcium 7.9 L Phosphorus 5.8 H Magnesium Total Bilirubin AST ALT Alkaline Phosphatase Total Creatine Kinase 151 H Troponin I High Sens B-Natriuretic Peptide Total Protein Albumin TSH Urine Color Urine Appearance Urine pH Ur Specific [place] Urine Protein Urine Glucose (UA) Urine Ketones Urine Blood Urine Nitrite Ur Leukocyte Esterase Urine RBC Urine WBC Urine WBC Clumps Ur Squamous Epith Cells Ur Renal Epithelial Cell Urine Bacteria Granular Casts Urine Mucus Salicylates < 5.0 L Acetaminophen 5 COVID-19 (CAROLYN) COVID-19 Clin Com 11/10/21 11/10/21 11/10/21 06:47 13:06 13:06 MCV MCH MCHC RDW Plt Count MPV Immature Gran % (Auto) Neut % (Auto) Lymph % (Auto) [place] % (Auto) Eos % (Auto) Baso % (Auto) Lymph # (Auto) [place] # (Auto) Eos # (Auto) Baso # (Auto) Abs Immat Gran (auto) Absolute Neuts (auto) Absolute Nucleated RBC Nucleated RBC % (auto) Smear Tech's Comments ESR 20 VBG pH VBG pCO2 VBG pO2 VBG HCO3 VBG O2 Saturation VBG Base Excess Anion Gap 27 H Estim Creat Clear Calc 19.5 Estimated GFR 15 POC Glucose Random Glucose 131 H Lactic Acid Lactic Acid F/U @ 2Hr Lactic Acid F/U @ 4Hr 5.1 H* Calcium 7.5 L Phosphorus Magnesium Total Bilirubin AST ALT Alkaline Phosphatase Total Creatine Kinase Troponin I High Sens B-Natriuretic Peptide Total Protein Albumin TSH Urine Color Urine Appearance Urine pH Ur Specific [place] Urine Protein Urine Glucose (UA) Urine Ketones Urine Blood Urine Nitrite Ur Leukocyte Esterase Urine RBC Urine WBC Urine WBC Clumps Ur Squamous Epith Cells Ur Renal Epithelial Cell Urine Bacteria Granular Casts Urine Mucus Salicylates Acetaminophen COVID-19 (CAROLYN) COVIDPocket Change 11/10/21 11/10/21 11/10/21 13:21 13:42 15:07 MCV MCH MCHC RDW Plt Count MPV Immature Gran % (Auto) Neut % (Auto) Lymph % (Auto) [place] % (Auto) Eos % (Auto) Baso % (Auto) Lymph # (Auto) [place] # (Auto) Eos # (Auto) Baso # (Auto) Abs Immat Gran (auto) Absolute Neuts (auto) Absolute Nucleated RBC Nucleated RBC % (auto) Smear Tech's Comments ESR VBG pH 7.11 L* VBG pCO2 38 VBG pO2 186 VBG HCO3 12 L VBG O2 Saturation 99.0 VBG Base Excess -15.9 Anion Gap Estim Creat Clear Calc Estimated GFR POC Glucose 117 H Random Glucose Lactic Acid 4.8 H* Lactic Acid F/U @ 2Hr Lactic Acid F/U @ 4Hr Calcium Phosphorus Magnesium Total Bilirubin AST ALT Alkaline Phosphatase Total Creatine Kinase Troponin I High Sens B-Natriuretic Peptide Total Protein Albumin TSH Urine Color Urine Appearance Urine pH Ur Specific [place] Urine Protein Urine Glucose (UA) Urine Ketones Urine Blood Urine Nitrite Ur Leukocyte Esterase Urine RBC Urine WBC Urine WBC Clumps Ur Squamous Epith Cells Ur Renal Epithelial Cell Urine Bacteria Granular Casts Urine Mucus Salicylates Acetaminophen COVID-19 (CAROLYN) COVID-19 [facility] Radiologist's Impressions: Impressions Chest X-Ray 11/10/21 01:52 IMPRESSION: Bilateral patchy airspace opacities could represent pulmonary edema or atypical pneumonitis. Chest X-Ray 11/10/21 06:22 IMPRESSION: Stable portable radiographic appearance of the chest. There could be interstitial and mild alveolar pulmonary edema, or atypical pneumonitis. Abdomen/Pelvis CT 11/10/21 09:40 IMPRESSION: 1. Findings suggestive of mild pulmonary interstitial edema and probable minimal alveolar edema. Trace bilateral pleural effusions with associated bibasilar mild atelectasis. 2. Focal airspace opacities in the right upper lobe could be inflammatory or infectious in etiology. 3. No ascites. Diffuse anasarca in the visualized abdominal wall. Diffuse mesenteric stranding. 4. Moderate stool burden in the colon without evidence of abnormal bowel dilatation or bowel obstruction. 5. Cardiomegaly with 3-vessel coronary calcifications. Chest CT 11/10/21 09:40 IMPRESSION: 1. Findings suggestive of mild pulmonary interstitial edema and probable minimal alveolar edema. Trace bilateral pleural effusions with associated bibasilar mild atelectasis. 2. Focal airspace opacities in the right upper lobe could be inflammatory or infectious in etiology. 3. No ascites. Diffuse anasarca in the visualized abdominal wall. Diffuse mesenteric stranding. 4. Moderate stool burden in the colon without evidence of abnormal bowel dilatation or bowel obstruction. 5. Cardiomegaly with 3-vessel coronary calcifications. Chest X-Ray 11/10/21 16:55 IMPRESSION: Catheter overlying superior vena cava. There is no pneumothorax. Developing left basilar opacity. Attention to follow-up. There is vascular congestion here as well. Assessment and Plan (1) Lactic acidosis: Status: Acute (2) Symptomatic bradycardia: Status: Acute (3) Sinus bradycardia: Status: Acute (4) Left bundle branch block: Status: Acute (5) Morbid obesity: Status: Acute (6) Uremia of renal origin: Status: Acute (7) Acute renal failure: Status: Acute (8) Acute hyperkalemia: Status: Acute (9) Urinary tract infection: Status: Acute (10) Chronic pain syndrome: Status: Acute (11) Pernicious anemia: Status: Acute (12) COPD (chronic obstructive pulmonary disease): Status: Acute (13) CHF (congestive heart failure): Status: Acute (14) Hypothyroidism: Qualifiers: Hypothyroidism type: unspecified Qualified Code(s): E03.9 - Hypothyroidism, unspecified Status: Acute (15) Essential hypertension: Status: Acute (16) Diabetes mellitus: Qualifiers: Diabetes mellitus type: type 2 Diabetes mellitus intermediate frame tender insulin use: without intermediate frame tender use Diabetes mellitus complication status: without complication Qualified Code(s): E11.9 - Type 2 diabetes mellitus without complications Status: Acute (17) Pure hypercholesterolemia: Status: Acute urgent hemodialysis tonight recheck blood gas and chemistry later on
[2021-11-10 19:32] LABS: ~Lactic Acid-LAB USE ONLY 1.7 mmol/L (0.5-2.0)
[2021-11-10 22:30] LABS: VBG Base Excess -6.1 mmol/L; VBG HCO3 19 mmol/L (22-26); VBG pCO2 38 mmHg; VBG pH 7.31 (7.32-7.43); VBG pO2 161 mmHg
[2021-11-10 22:30] LABS: Venous Blood Gas Refer to POC result
[2021-11-10 22:49] LABS: Anion Gap 16 (12-20); Blood Urea Nitrogen 36 mg/dL (9-16); Calcium 7.5 mg/dL (8.4-10.2); Carbon Dioxide 19 mmol/L (22-29); Chloride 109 mmol/L (96-108); Creatinine Clr Calc Pharmacy 35.2; Estimated Glomerular Filt Rate 29; Glucose Random 63 mg/dL (60-115); Sodium 140 mmol/L (135-145)
[2021-11-11] VITALS (31 sets, daily range): BP systolic 100–153; BP diastolic 35–80; PULSE 62–167; RESP 15–36; TEMP 35.7–37.6; O2SAT 89–100; BMI 48.6
[2021-11-11 02:21] LABS: Glucose, Whole Blood 37 mg/dL (60-115)
--- NOTE | 2021-11-11 02:37 | PC.NURSE ---
Pt bgl rechecked. Found to be 35, IVs on right side, Top: Sodium bicarb infusing, Bottom +blood return. no infiltrate noted. 1st amp d50 given, at approximately 1/4-1/3 of the amp given: pt was ntoed Noted to have swelling to lower FA access. Medication stopped. in upper FA, Flushed with good return, Rest of amp given. Pt c/o site pain and swelling. Both Lines given warm compresses. Hospitalist called to bedside and made aware of BGL. 2 additional points of access obtained. Pt has 20g in L wrist with swelling located at insertion site. 2nd amp of d50 given. 2nd point of access obtained: 20g Right bicep.
[2021-11-11 02:40] LABS: Glucose, Whole Blood 35 mg/dL (60-115)
[2021-11-11 02:40] LABS: Glucose, Whole Blood 47 mg/dL (60-115)
[2021-11-11 02:49] LABS: Glucose, Whole Blood 70 mg/dL (60-115)
[2021-11-11 03:09] LABS: Glucose, Whole Blood 109 mg/dL (60-115)
[2021-11-11 05:02] LABS: Acetone NONE DETECTED (NONE DETECTED); Analysis performed on: WHOLE BLOOD; Ethyl Alcohol g/dL (%) NONE DETECTED g/dL(%) (NONE DETECTED); Ethyl Alcohol mg/dL NONE DETECTED (NONE DETECTED); Isopropanol NONE DETECTED (NONE DETECTED)
[2021-11-11] MEDS: Heparin Sodium,Porcine 5,000 UNIT/ML VIAL 5000 UNIT SUBCUT ×2 (08:18→15:54)
[2021-11-11] MEDS: Pantoprazole Sodium 40 MG in 0.9 % Sodium Chloride 100 ML 400 MG IV (08:19)
[2021-11-11 08:20] LABS: Glucose, Whole Blood 79 mg/dL (60-115)
[2021-11-11] MEDS: Levothyroxine Sodium 100 MCG/5 ML VIAL IVPUSH (09:29)
[2021-11-11] MEDS: Sodium Bicarbonate 8.4% 100 MEQ in Dextrose 5 % 900 ML 50 MEQ IV (10:22)
--- NOTE | 2021-11-11 11:00 | CA_ITS ---
Transthoracic Echocardiogram Patient (Last, First, Middle): Radhika Vaca N Gender: Female Date of : 1945 Age: 76 Procedure Date: 11/11/2021 Procedure Type: Transthoracic Echocardiogram Location: ICU Height: 157.48 cm Weight: 120.2 kg BSA: 2.15 m2 Heart Rate: bpm BP: 136 / 49 mmHg [employer]inery [employer] Worker: Referring MD: Cortez Nelson MD Symptoms: pulm edema Study Quality: Fair ECG Rhythm: Sinus Conclusions: - Normal left ventricular size and systolic function. - Abnormal diastolic function is noted. Spectral Doppler is indicative of a pseudonormal filling pattern. Elevated filling pressures. - Mildly increased right ventricular cavity size. There is normal right ventricular systolic function. - The left atrium is moderately dilated. - Significantly elevated right atrial pressure. Severe pulmonary hypertension is present. Findings Left Ventricle Normal left ventricular size and systolic function. There is moderately increased left ventricular wall thickness. The visually estimated ejection fraction is between 60-65%. There is no evidence of regional wall motion abnormalities. Abnormal diastolic function is noted. Spectral Doppler is indicative of a pseudonormal filling pattern. Elevated filling pressures. Right Ventricle Mildly increased right ventricular cavity size. There is normal right ventricular systolic function. Atria The left atrium is moderately dilated. Aortic Valve Normal aortic valve structure and function. There is mild calcification of the aortic valve. There is no aortic valve stenosis. There is no aortic valve regurgitation. Mitral Valve There is severe mitral annular calcification. There is no mitral valve regurgitation. There is no mitral valve stenosis. Pulmonic Valve The pulmonic valve was not well visualized. Tricuspid Valve Normal tricuspid valve structure and function. There is mild tricuspid valve regurgitation. Significantly elevated right atrial pressure. Severe pulmonary hypertension is present. Great Vessels There is mild dilatation of the ascending aorta measuring 3.40 cm. The visualized portions of the pulmonary artery and branches are normal. Venous The inferior vena cava is dilated and does not collapse with inspiration. Pericardium/Pleural There is no evidence of pericardial effusion. Prior Study Comparison Changes noted compared to prior study. Elevated filling pressures. Severe pulm hypertension. Measurements 2D Linear Measurements IVSd: 1.42 0.6-0.9/0.6-1.0 cm LVIDd: 4.92 3.9-5.3/4.2-5.9 cm LVIDd Index: 2.29 2.4-3.2/2.2-3.1 cm/m2 LVIDs: 3.12 2.0-3.6 cm LVPWd: 1.38 0.7-1.1 cm Ao Root: 3.20 2.1-3.5 cm LA Diam: 4.50 2.7-3.8/3.0-4.0 cm LAIDs Index: 2.09 1.5-2.3 cm/m2 LV Mass: 354.64 67-162/88-224 g LV Mass Index: 164.95 43-95/49-115 g/m2 LVOT Diam: 2.20 3.0+(-)1.3 cm Mitral Valve MV VTI: 0.66 MV Pk Hayden: 1.99 MV Mn Hayden: 0.92 MV Pk Grad: 16.00 MV Mn Grad: 4.00 MV Pk E: 1.50 MV PK A: 1.12 MV Decel Time: 376.00 E/A: 1.30 E'Lateral: 6.09 E'Medial: 4.79 E/E' Med: 31.30 E/E' Lat: 24.60 PHT: 108.00 MVA PHT: 2.04 MVA Continuity: 1.62 Decel Jewell: 4.64 Aortic Valve AoV Pk Hayden: 1.80 AoV Mn Hayden: 1.28 AoV VTI: 0.45 AoV Pk Grad: 13.00 Aov Mn Grad: 7.00 CHASITY Cont.VTI: 2.36 LVOT LVOT Pk Hayden: 1.12 LVOT Mn Hayden: 0.77 LVOT VTI: 0.28 LVOT Pk Grad: 5.00 LVOT Mn Grad: 3.00 LVOT Diam: 2.20 LVOT Area: 3.80 Diastolic Function MV Pk E: 1.50 MV Pk A: 1.12 E/A: 1.30 E'Medial: 4.79 E/E' Med: 31.30 E' Laterial: 6.09 E/E' Lat: 24.60 Tricuspid Valve TR Pk Hayden: 4.20 TR Pk Grad: 71.00 RA Press: 15.00 RVSP: 86.00 Great Vessels Aorta Ao Root-2D: 3.20 2.0-3.7 cm Ao Asc: 3.40 2.1-3.4 cm Pulmonary Valve PV Pk Hayden: 1.37 Peak PV Grad: 8.00 Updated in Other Vendor System with Status of Final Jeremías Day MD electronically signed on 11/11/2021 6:30:46 PM with status of Final
[2021-11-11 11:43] LABS: Amphetamine Screen Urine Not Detected (Not Detect); Barbiturates, Urine Not Detected (Not Detect); Benzodiazepines Screen Urine POSITIVE (Not Detect); Cannabinoid Screen Urine Not Detected (Not Detect); Cocaine Screen Urine Not Detected (Not Detect); Fentanyl, urine Not Detected (Not Detect); Opiate Screen Urine Not Detected (Not Detect); Phencyclidine Screen Urine Not Detected (Not Detect)
--- NOTE | 2021-11-11 12:12 | MHC.CM.PN ---
Pt presently in ICU with respiratory therapist and unable to participate in CM assessment. Call placed to pt's next of kin, son Robbie with whom she lives. Per Robbie, pt is independent with ADL's, has [facility] for MOW and uses a walker. He states she very occassionally drives and most of her transportation needs are met by their neighbor. Pt sees Dr. Mccollum and has been to [facility] in 2019. Robbie states he is her HCP but does not have an official copy. [facility] on file from previous visit. D/C plan is likely for a return to home with [facility] vs STR. Robbie states pt would like to remain home if at all possible. He is able to assist pt with some care needs. refered to [facility] per family choice. Neighbor can transport home: Robbie will arrange.
--- NOTE | 2021-11-11 13:26 | HO.PM.IMPN ---
Subjective Subjective Date of Service: 11/11/21 Interval History: Feels short of breath. Hungry. Does not like the rectal tube. Review of Systems Review of Systems: Yes all other systems are reviewed and are negative Physical Exam Vital Signs: Vital Signs: Last Vital Signs Temp 98.2 F 11/11/21 13:00 Pulse 82 11/11/21 13:00 Resp 15 11/11/21 13:00 BP 132/45 L 11/11/21 13:00 Pulse Ox 97 11/11/21 13:00 BMI result Body Mass Index 48.6 Gen: in no acute distress HEENT: sclera anicteric, moist mucus membranes Neck: supple, RIJ HD catheter Lungs: diminished bilaterally Heart: regular rate and rhythm, no murmurs Abd: soft, non-tender, non-distended, obese Ext: no edema Skin: warm/well-perfused Neuro: alert and oriented x3, no focal findings Psych: appropriate affect Objective Data Active Medications Dextrose (Dextrose 50 % 25 Gm/50 Ml Syringe) 25 gm IVPUSH Q15M PRN; Protocol PRN Reason: per Hypoglycemia Standing Ord. Glucose (Glucose Gel 15 Gm Gel..Gram.) 15 gm PO Q15M PRN; Protocol PRN Reason: per Hypoglycemia Standing Ord. Heparin Sodium (Porcine) (Heparin Sodium,Porcine 5,000 Unit/Ml Vial) 5,000 unit SUBCUT Q8H [facility] Last Admin: 11/11/21 08:18 Dose: 5,000 unit Documented by: JUAN MIGUEL Sodium Bicarbonate 100 meq/ (Dextrose) 1,000 mls @ 50 mls/hr IV .Q20H [facility] Last Admin: 11/11/21 10:22 Dose: 50 mls/hr Documented by: JUAN MIGUEL Pantoprazole Sodium 40 mg/ (Sodium Chloride) 110 mls @ 400 mls/hr IV DAILY@0630 [facility] Last Infusion: 11/11/21 09:11 Dose: 0 mls/hr Documented by: JUAN MIGUEL Ceftriaxone Sodium 1 gm/ (Sodium Chloride) 50 mls @ 100 mls/hr IV Q24H [facility] Insulin Human Lispro (Insulin Lispro 100 Unit/Ml 3 Ml Vial) 0 unit SUBCUT Q6H [facility]; Protocol Last Admin: 11/11/21 08:17 Dose: Not Given Documented by: JUAN MIGUEL Non-Admin Reason: No Insulin Coverage Levothyroxine Sodium (Levothyroxine Sodium 100 Mcg/5 Ml Vial) 100 mcg IVPUSH DAILY@0600 [facility] Last Admin: 11/11/21 09:29 Dose: 100 mcg Documented by: JUAN MIGUEL Labs CBC & Chem 7: 11/10/21 01:27 11/10/21 22:07 Labs: Laboratory Results - last 24 hr 11/10/21 11/10/21 11/10/21 08:51 13:06 13:06 ESR 20 VBG pH VBG pCO2 VBG pO2 VBG HCO3 VBG O2 Saturation VBG Base Excess Anion Gap 27 H Estim Creat Clear Calc 19.5 Estimated GFR 15 POC Glucose Random Glucose 131 H Lactic Acid Lactic Acid F/U @ 2Hr Calcium 7.5 L Urine Opiates Screen Urine Fentanyl Screen Ur Barbiturates Screen Ur Phencyclidine Scrn Ur Amphetamines Screen U Benzodiazepines Scrn Urine Cocaine Screen U Marijuana (THC) Screen Volat Analys Perform On WHOLE BLOOD Ethyl Alcohol mg/dL NONE DETECTED Ethyl Alcohol g/dL NONE DETECTED Isopropyl Alc, Quant NONE DETECTED Acetone Level NONE DETECTED 11/10/21 11/10/21 11/10/21 13:21 13:42 15:07 ESR VBG pH 7.11 L* VBG pCO2 38 VBG pO2 186 VBG HCO3 12 L VBG O2 Saturation 99.0 VBG Base Excess -15.9 Anion Gap Estim Creat Clear Calc Estimated GFR POC Glucose 117 H Random Glucose Lactic Acid 4.8 H* Lactic Acid F/U @ 2Hr Calcium Urine Opiates Screen Urine Fentanyl Screen Ur Barbiturates Screen Ur Phencyclidine Scrn Ur Amphetamines Screen U Benzodiazepines Scrn Urine Cocaine Screen U Marijuana (THC) Screen Volat Analys Perform On Ethyl Alcohol mg/dL Ethyl Alcohol g/dL Isopropyl Alc, Quant Acetone Level 11/10/21 11/10/21 11/10/21 19:09 22:07 22:23 ESR VBG pH 7.31 L VBG pCO2 38 VBG pO2 161 VBG HCO3 19 L VBG O2 Saturation 100.0 VBG Base Excess -6.1 Anion Gap 16 Estim Creat Clear Calc 35.2 Estimated GFR 29 POC Glucose Random Glucose 63 Lactic Acid Lactic Acid F/U @ 2Hr 1.7 Calcium 7.5 L Urine Opiates Screen Urine Fentanyl Screen Ur Barbiturates Screen Ur Phencyclidine Scrn Ur Amphetamines Screen U Benzodiazepines Scrn Urine Cocaine Screen U Marijuana (THC) Screen Volat Analys Perform On Ethyl Alcohol mg/dL Ethyl Alcohol g/dL Isopropyl Alc, Quant Acetone Level 11/11/21 11/11/21 11/11/21 02:16 02:24 02:29 ESR VBG pH VBG pCO2 VBG pO2 VBG HCO3 VBG O2 Saturation VBG Base Excess Anion Gap Estim Creat Clear Calc Estimated GFR POC Glucose 37 L* 47 L* 35 L* Random Glucose Lactic Acid Lactic Acid F/U @ 2Hr Calcium Urine Opiates Screen Urine Fentanyl Screen Ur Barbiturates Screen Ur Phencyclidine Scrn Ur Amphetamines Screen U Benzodiazepines Scrn Urine Cocaine Screen U Marijuana (THC) Screen Volat Analys Perform On Ethyl Alcohol mg/dL Ethyl Alcohol g/dL Isopropyl Alc, Quant Acetone Level 11/11/21 11/11/21 11/11/21 02:44 03:06 08:16 ESR VBG pH VBG pCO2 VBG pO2 VBG HCO3 VBG O2 Saturation VBG Base Excess Anion Gap Estim Creat Clear Calc Estimated GFR POC Glucose 70 109 79 Random Glucose Lactic Acid Lactic Acid F/U @ 2Hr Calcium Urine Opiates Screen Urine Fentanyl Screen Ur Barbiturates Screen Ur Phencyclidine Scrn Ur Amphetamines Screen U Benzodiazepines Scrn Urine Cocaine Screen U Marijuana (THC) Screen Volat Analys Perform On Ethyl Alcohol mg/dL Ethyl Alcohol g/dL Isopropyl Alc, Quant Acetone Level 11/11/21 10:45 ESR VBG pH VBG pCO2 VBG pO2 VBG HCO3 VBG O2 Saturation VBG Base Excess Anion Gap Estim Creat Clear Calc Estimated GFR POC Glucose Random Glucose Lactic Acid Lactic Acid F/U @ 2Hr Calcium Urine Opiates Screen Not Detected Urine Fentanyl Screen Not Detected Ur Barbiturates Screen Not Detected Ur Phencyclidine Scrn Not Detected Ur Amphetamines Screen Not Detected U Benzodiazepines Scrn POSITIVE H Urine Cocaine Screen Not Detected U Marijuana (THC) Screen Not Detected Volat Analys Perform On Ethyl Alcohol mg/dL Ethyl Alcohol g/dL Isopropyl Alc, Quant Acetone Level Microbiology Microbiology Results: Microbiology 11/10/21 Unknown Urine Culture - Preliminary Urine Catheterized - Straight Catheter Gram negative eve 11/10/21 01:46 Blood Culture - Preliminary Blood - Venous No growth after 24 hours. 11/10/21 01:46 Blood Culture - Preliminary Blood - Venous No growth after 24 hours. Assessment and Plan (1) Lactic acidosis: Status: Acute (2) Uremia of renal origin: Status: Acute (3) Acute renal failure: Status: Acute (4) Acute hyperkalemia: Status: Acute Assessment and Plan: hospital d#2 76yo F with COPD, CHF, pernicious anemia, HTN, DM2, hypothyroidism presenting with 2 wk of progressive weakness and leg swelling and 1d of worsening dyspne presented with hypothermia, MARJORIE with uremia/hyperK/lactic acidosis # MARJORIE # metabolic acidosis # uremia # hyperK - resolved with emergency hemodialysis and also given Kayexelate - continue bicarbonate gtt pending repeat BMP - Nephrology following, leave Luis Manuel catheter in place for now - ?due to MTF- d/c'ed # acute hypoxic respiratory failure - on HFNC, wean as tolerated # pulmonary edema/CHF exacerbation - dialyzed as above. check TTE, trend BNP # diarrhea - perhaps due to Kayexelate but may have had some at home as well and so will check Cdiff PCR # UTI - ceftriaxone d#2, follow UCx # DM2 - was hypoglycemic likely due to renal failure- start diet # hypothyroidism - on LT4, IV equivalent to PO 200 mcg daily # COPD without acute exaerbation - ICS/LABA, prn LUCIA # VTE ppx - UFH Quality Stroke Does the patient have a stroke diagnosis?: No VTE Prior VTE?: No VTE Risk Level:: Medical - moderate - high VTE Device Contraindication: N/A - Device Ordered VTE Drug Contraindication: N/A - Med Ordered
[2021-11-11 14:41] LABS: Anion Gap 16 (12-20); Blood Urea Nitrogen 38 mg/dL (9-16); Calcium 7.3 mg/dL (8.4-10.2); Carbon Dioxide 24 mmol/L (22-29); Chloride 107 mmol/L (96-108); Creatinine Clr Calc Pharmacy 30.2; Estimated Glomerular Filt Rate 24; Glucose Random 68 mg/dL (60-115); Potassium 4.1 mmol/L (3.3-5.1); Sodium 143 mmol/L (135-145)
[2021-11-11 16:30] LABS: Glucose, Whole Blood 123 mg/dL (60-115)
--- NOTE | 2021-11-11 18:14 | P.PNNP_ITS ---
Subjective Subjective Date of Service: 11/28/21 Interval history: Events noted s/p HD yesterday Currently non oliguric Physical Exam Verdana 4l Vital Signs: Verdana 4d Verdana 4d Vital Signs: Verdana 4d Verdana 4Bd Last Vital Signs Verdana 4d [employer] New 4d Cynthia New 4d Temp 99.0 F 11/11/21 18:00 [employer] New 4d Pulse 95 11/11/21 18:00 [employer] New 4d Resp 20 11/11/21 18:00 BP 131/41 L 11/11/21 18:00 Pulse Ox 95 11/11/21 18:00 BMI result Body Mass Index 48.6 Const: Other: Ill appearing. Responds to pain Lungs with rhonchi Hrt- Sinus yuri, No S3 or S4 Abd soft with BS Ns No myoclonus Ext-Erythema Objective Data Labs CBC & Chem 7: 11/13/21 05:40 11/18/21 05:19 Labs: Laboratory Results - last 24 hr 11/10/21 11/10/21 11/10/21 08:51 19:09 22:07 VBG pH VBG pCO2 VBG pO2 VBG HCO3 VBG O2 Saturation VBG Base Excess Sodium 140 Potassium 4.0 D Chloride 109 H Carbon Dioxide 19 L Anion Gap 16 BUN 36 H D Creatinine 1.73 H Estim Creat Clear Calc 35.2 Estimated GFR 29 POC Glucose Random Glucose 63 Lactic Acid F/U @ 2Hr 1.7 Calcium 7.5 L Urine Opiates Screen Urine Fentanyl Screen Ur Barbiturates Screen Ur Phencyclidine Scrn Ur Amphetamines Screen U Benzodiazepines Scrn Urine Cocaine Screen U Marijuana (THC) Screen Volat Analys Perform On WHOLE BLOOD Ethyl Alcohol mg/dL NONE DETECTED Ethyl Alcohol g/dL NONE DETECTED Isopropyl Alc, Quant NONE DETECTED Acetone Level NONE DETECTED 11/10/21 11/11/21 11/11/21 22:23 02:16 02:24 VBG pH 7.31 L VBG pCO2 38 VBG pO2 161 VBG HCO3 19 L VBG O2 Saturation 100.0 VBG Base Excess -6.1 Sodium Potassium Chloride Carbon Dioxide Anion Gap BUN Creatinine Estim Creat Clear Calc Estimated GFR POC Glucose 37 L* 47 L* Random Glucose Lactic Acid F/U @ 2Hr Calcium Urine Opiates Screen Urine Fentanyl Screen Ur Barbiturates Screen Ur Phencyclidine Scrn Ur Amphetamines Screen U Benzodiazepines Scrn Urine Cocaine Screen U Marijuana (THC) Screen Volat Analys Perform On Ethyl Alcohol mg/dL Ethyl Alcohol g/dL Isopropyl Alc, Quant Acetone Level 11/11/21 11/11/21 11/11/21 02:29 02:44 03:06 VBG pH VBG pCO2 VBG pO2 VBG HCO3 VBG O2 Saturation VBG Base Excess Sodium Potassium Chloride Carbon Dioxide Anion Gap BUN Creatinine Estim Creat Clear Calc Estimated GFR POC Glucose 35 L* 70 109 Random Glucose Lactic Acid F/U @ 2Hr Calcium Urine Opiates Screen Urine Fentanyl Screen Ur Barbiturates Screen Ur Phencyclidine Scrn Ur Amphetamines Screen U Benzodiazepines Scrn Urine Cocaine Screen U Marijuana (THC) Screen Volat Analys Perform On Ethyl Alcohol mg/dL Ethyl Alcohol g/dL Isopropyl Alc, Quant Acetone Level 11/11/21 11/11/21 11/11/21 08:16 10:45 13:53 VBG pH VBG pCO2 VBG pO2 VBG HCO3 VBG O2 Saturation VBG Base Excess Sodium 143 Potassium 4.1 Chloride 107 Carbon Dioxide 24 Anion Gap 16 BUN 38 H Creatinine 2.02 H Estim Creat Clear Calc 30.2 Estimated GFR 24 POC Glucose 79 Random Glucose 68 Lactic Acid F/U @ 2Hr Calcium 7.3 L Urine Opiates Screen Not Detected Urine Fentanyl Screen Not Detected Ur Barbiturates Screen Not Detected Ur Phencyclidine Scrn Not Detected Ur Amphetamines Screen Not Detected U Benzodiazepines Scrn POSITIVE H Urine Cocaine Screen Not Detected U Marijuana (THC) Screen Not Detected Volat Analys Perform On Ethyl Alcohol mg/dL Ethyl Alcohol g/dL Isopropyl Alc, Quant Acetone Level 11/11/21 16:27 VBG pH VBG pCO2 VBG pO2 VBG HCO3 VBG O2 Saturation VBG Base Excess Sodium Potassium Chloride Carbon Dioxide Anion Gap BUN Creatinine Estim Creat Clear Calc Estimated GFR POC Glucose 123 H Random Glucose Lactic Acid F/U @ 2Hr Calcium Urine Opiates Screen Urine Fentanyl Screen Ur Barbiturates Screen Ur Phencyclidine Scrn Ur Amphetamines Screen U Benzodiazepines Scrn Urine Cocaine Screen U Marijuana (THC) Screen Volat Analys Perform On Ethyl Alcohol mg/dL Ethyl Alcohol g/dL Isopropyl Alc, Quant Acetone Level Microbiology Microbiology Results: Microbiology 11/10/21 Unknown Urine Catheterized - Straight Catheter Urine Culture - Preliminary Gram negative eve 11/10/21 01:46 Blood - Venous Blood Culture - Preliminary No growth after 24 hours. 11/10/21 01:46 Blood - Venous Blood Culture - Preliminary No growth after 24 hours. Procedures Date of Service Date of Service: 12/12/21 Assessment & Plan Assessment and plan (1) Lactic acidosis: Status: Resolved (2) Acute renal failure: Status: Resolved (3) Acute hyperkalemia: Status: Resolved Plan MARJORIE s/p Urgent HD for severe acidosis Renal function is improving UO has increased No need for dialysis today hyperkalemia stands corrected. LActic acidosis due to Metformin - Off Metformin now Keep I > O Can DC Bicarb If renal function continues to improve , will remove dialysis catheter in 24-48 hours Management discussed with ICU attending. Time Spent With Patient Time: Total time spent is greater than 50% in coordination of care (as documented) at patient's floor/unit and/or counseling patient: Time with patient: 15 - 24 minutes Progress Note: Quality Stroke Does the patient have a stroke diagnosis?: No
[2021-11-11 18:30] LABS: CDiff Gene PCR NEGATIVE (Negative)
[2021-11-11 21:21] LABS: Glucose, Whole Blood 169 mg/dL (60-115)
[2021-11-11] MEDS: Atorvastatin Calcium 40 MG TABLET PO (21:51)
[2021-11-11] MEDS: Insulin Lispro 100 UNIT/ML 3 ML VIAL SUBCUT (21:51)
[2021-11-11] MEDS: cefTRIAXone sodium 1 GM in 0.9 % Sodium Chloride 50 ML IV (21:52)
[2021-11-12] VITALS (7 sets, daily range): BP systolic 127–144; BP diastolic 44–79; PULSE 71–80; RESP 18–20; TEMP 36–36.8; O2SAT 94–100; BMI 48.5
--- NOTE | 2021-11-12 | ECG_ITS ---
Test Reason : sob Blood Pressure : / mmHG Vent. Rate : 075 BPM Atrial Rate : 075 BPM P-R Int : 152 ms QRS Dur : 108 ms QT Int : 418 ms P-R-T Axes : 020 -39 103 degrees QTc Int : 466 ms Sinus rhythm with marked sinus arrhythmia Left axis deviation Left ventricular hypertrophy with repolarization abnormality ( R in aVL , Gorge product ) Abnormal ECG When compared with ECG of 16-JUN-2019 02:02, No significant change was found Referred By: Xander Painter Electronically Signed By:Jeremías Day
[2021-11-12] MEDS: Heparin Sodium,Porcine 5,000 UNIT/ML VIAL 5000 UNIT SUBCUT ×4 (00:16→22:38)
[2021-11-12] MEDS: Pantoprazole Sodium 40 MG in 0.9 % Sodium Chloride 100 ML 400 MG IV (05:27)
[2021-11-12 06:43] LABS: Hematocrit 30.7 % (37.0-47.0); Hemoglobin 8.8 g/dl (12.0-16.0); Mean Corpuscular HGB Conc 28.7 g/dl (31.0-35.0); Mean Corpuscular Hemoglobin 28.9 pg (27.0-33.0); Mean Platelet Volume 9.3 fL (9.4-12.3); Platelet Count 274 X10*3/uL (160-400); Red Blood Count 3.04 X10*6/uL (4.20-5.50); Red Cell Distribution Width 16.4 % (11.0-16.0); White Blood Count 6.4 X10*3/uL (4.8-10.8)
[2021-11-12 06:45] LABS: Anion Gap 14 (12-20); Blood Urea Nitrogen 42 mg/dL (9-16); Calcium 6.9 mg/dL (8.4-10.2); Carbon Dioxide 25 mmol/L (22-29); Chloride 110 mmol/L (96-108); Creatinine Clr Calc Pharmacy 27.8; Estimated Glomerular Filt Rate 22; Glucose Random 72 mg/dL (60-115); Potassium 3.8 mmol/L (3.3-5.1); Sodium 145 mmol/L (135-145)
[2021-11-12 06:56] LABS: B Type Natriuretic Peptide 716 pg/mL (<100)
[2021-11-12 07:48] LABS: Glucose, Whole Blood 58 mg/dL (60-115)
[2021-11-12 07:59] LABS: Glucose, Whole Blood 91 mg/dL (60-115)
[2021-11-12] MEDS: Fluticasone/Vilanterol 100/25 BLST.W.DEV 1 PUFF INHALE (08:41)
[2021-11-12 09:23] LABS: Folate 4.4 ng/mL (> or = 4.0); Vitamin B12 297 pg/mL (200-900)
--- NOTE | 2021-11-12 11:20 | PM.PNNEP ---
Subjective Subjective Date of Service: 11/12/21 Interval history: Events noted, seen and examined Physical Exam Vital Signs: Vital Signs: Last Vital Signs Temp 97.6 F 11/12/21 07:14 Pulse 77 11/12/21 08:45 Resp 20 11/12/21 08:45 BP 127/58 L 11/12/21 07:14 Pulse Ox 100 11/12/21 07:14 BMI result Body Mass Index 48.5 Const: Other: Ill appearing. Responds to pain Lungs with rhonchi Hrt- Sinus yuri, No S3 or S4 Abd soft with BS Ns No myoclonus Ext-Erythema Objective Data Labs CBC & Chem 7: 11/12/21 05:46 11/12/21 05:46 Labs: Laboratory Results - last 24 hr 11/11/21 11/11/21 11/11/21 10:45 13:53 16:27 WBC RBC Hgb Hct MCV MCH MCHC RDW Plt Count MPV Absolute Nucleated RBC Nucleated RBC % (auto) Sodium 143 Potassium 4.1 Chloride 107 Carbon Dioxide 24 Anion Gap 16 BUN 38 H Creatinine 2.02 H Estim Creat Clear Calc 30.2 Estimated GFR 24 POC Glucose 123 H Random Glucose 68 Calcium 7.3 L B-Natriuretic Peptide Vitamin B12 Folate Urine Opiates Screen Not Detected Urine Fentanyl Screen Not Detected Ur Barbiturates Screen Not Detected Ur Phencyclidine Scrn Not Detected Ur Amphetamines Screen Not Detected U Benzodiazepines Scrn POSITIVE H Urine Cocaine Screen Not Detected U Marijuana (THC) Screen Not Detected C. difficile Tox B Gene 11/11/21 11/11/21 11/12/21 17:34 21:18 05:46 WBC 6.4 RBC 3.04 L Hgb 8.8 L Hct 30.7 L MCV 101.0 H D MCH 28.9 MCHC 28.7 L RDW 16.4 H Plt Count 274 MPV 9.3 L Absolute Nucleated RBC 0.000 Nucleated RBC % (auto) 0.0 Sodium Potassium Chloride Carbon Dioxide Anion Gap BUN Creatinine Estim Creat Clear Calc Estimated GFR POC Glucose 169 H Random Glucose Calcium B-Natriuretic Peptide Vitamin B12 Folate Urine Opiates Screen Urine Fentanyl Screen Ur Barbiturates Screen Ur Phencyclidine Scrn Ur Amphetamines Screen U Benzodiazepines Scrn Urine Cocaine Screen U Marijuana (THC) Screen C. difficile Tox B Gene NEGATIVE 11/12/21 11/12/21 11/12/21 05:46 05:46 05:46 WBC RBC Hgb Hct MCV MCH MCHC RDW Plt Count MPV Absolute Nucleated RBC Nucleated RBC % (auto) Sodium 145 Potassium 3.8 Chloride 110 H Carbon Dioxide 25 Anion Gap 14 BUN 42 H Creatinine 2.19 H Estim Creat Clear Calc 27.8 Estimated GFR 22 POC Glucose Random Glucose 72 Calcium 6.9 L B-Natriuretic Peptide 716 H Vitamin B12 297 Folate 4.4 Urine Opiates Screen Urine Fentanyl Screen Ur Barbiturates Screen Ur Phencyclidine Scrn Ur Amphetamines Screen U Benzodiazepines Scrn Urine Cocaine Screen U Marijuana (THC) Screen C. difficile Tox B Gene 11/12/21 11/12/21 07:17 07:55 WBC RBC Hgb Hct MCV MCH MCHC RDW Plt Count MPV Absolute Nucleated RBC Nucleated RBC % (auto) Sodium Potassium Chloride Carbon Dioxide Anion Gap BUN Creatinine Estim Creat Clear Calc Estimated GFR POC Glucose 58 L* 91 Random Glucose Calcium B-Natriuretic Peptide Vitamin B12 Folate Urine Opiates Screen Urine Fentanyl Screen Ur Barbiturates Screen Ur Phencyclidine Scrn Ur Amphetamines Screen U Benzodiazepines Scrn Urine Cocaine Screen U Marijuana (THC) Screen C. difficile Tox B Gene Microbiology Microbiology Results: Microbiology 11/10/21 01:46 Blood - Venous Blood Culture - Preliminary No growth after 48 hours. 11/10/21 01:46 Blood - Venous Blood Culture - Preliminary No growth after 48 hours. 11/10/21 Unknown Urine Catheterized - Straight Catheter Urine Culture - Preliminary Gram negative eve Procedures Date of Service Date of Service: 11/12/21 Assessment & Plan Assessment and plan (1) Lactic acidosis: Status: Acute (2) Acute renal failure: Status: Acute (3) Acute hyperkalemia: Status: Acute Assessment and Plan: 1. MARJORIE: SCr stable at 2.0 range; ques new BSL vs delayed recovery 2. CKD 3: ?? BSL SCr; last Scr 1.0 on EHR dates k to 2018 3. HyperK: resolved 4. DM 5. VOl: still hypervol on exam REC: cont diuretics; avoid metformin; track UOP/renal func; try to get BSL SCr from PCP's office; d/c HD cath if SCr remains < 2.5 tomorrow Time Spent With Patient Time: Total time spent is greater than 50% in coordination of care (as documented) at patient's floor/unit and/or counseling patient: Progress Note: Quality Stroke Does the patient have a stroke diagnosis?: No
[2021-11-12 11:25] LABS: Glucose, Whole Blood 158 mg/dL (60-115)
[2021-11-12] MEDS: Insulin Lispro 100 UNIT/ML 3 ML VIAL SUBCUT ×3 (12:34→22:38)
--- NOTE | 2021-11-12 13:04 | HO.PM.IMPN ---
Subjective Subjective Date of Service: 11/12/21 Interval History: Eating breakfast this AM. No pain. Good UOP. Review of Systems Review of Systems: Yes all other systems are reviewed and are negative Physical Exam Vital Signs: Vital Signs: Last Vital Signs Temp 97.6 F 11/12/21 11:19 Pulse 77 11/12/21 11:19 Resp 18 11/12/21 11:19 BP 139/54 L 11/12/21 11:19 Pulse Ox 97 11/12/21 11:19 BMI result Body Mass Index 48.5 Gen: in no acute distress HEENT: sclera anicteric, moist mucus membranes Neck: supple, RIJ HD catheter Lungs: diminished bilaterally Heart: regular rate and rhythm, no murmurs Abd: soft, non-tender, non-distended, obese Ext: no edema Skin: warm/well-perfused Neuro: alert and oriented x3, no focal findings Psych: appropriate affect Objective Data Active Medications Albuterol Sulfate (Albuterol Sulfate (0.083%) 2.5 Mg/3 Ml Vial.Neb) 2.5 mg INHALE Q2H PRN PRN Reason: shortness of breath/wheeze Atorvastatin Calcium (Atorvastatin Calcium 40 Mg Tablet) 40 mg PO BEDTIME [facility] Last Admin: 11/11/21 21:51 Dose: 40 mg Documented by: SERGIO Dextrose (Dextrose 50 % 25 Gm/50 Ml Syringe) 25 gm IVPUSH Q15M PRN; Protocol PRN Reason: per Hypoglycemia Standing Ord. Fluticasone/Vilanterol (Fluticasone/Vilanterol 100/25 Blst.W.Dev) 1 puff INHALE RDAILY [facility] Last Admin: 11/12/21 08:41 Dose: 1 puff Documented by: KATRINA Furosemide (Furosemide 40 Mg/4 Ml Vial) 40 mg IVPUSH BID@0900,1800 [facility]; Protocol Stop: 11/13/21 09:01 Glucose (Glucose Gel 15 Gm Gel..Gram.) 15 gm PO Q15M PRN; Protocol PRN Reason: per Hypoglycemia Standing Ord. Heparin Sodium (Porcine) (Heparin Sodium,Porcine 5,000 Unit/Ml Vial) 5,000 unit SUBCUT Q8H [facility] Last Admin: 11/12/21 09:58 Dose: 5,000 unit Documented by: YOLY Pantoprazole Sodium 40 mg/ (Sodium Chloride) 110 mls @ 400 mls/hr IV DAILY@0630 [facility] Last Infusion: 11/12/21 05:46 Dose: 0 mls/hr Documented by: MARK Ceftriaxone Sodium 1 gm/ (Sodium Chloride) 50 mls @ 100 mls/hr IV Q24H [facility] Last Infusion: 11/11/21 22:49 Dose: 0 mls/hr Documented by: SERGIO Insulin Human Lispro (Insulin Lispro 100 Unit/Ml 3 Ml Vial) 0 unit SUBCUT QIDACHS [facility]; Protocol Last Admin: 11/12/21 12:34 Dose: 2 unit Documented by: YOLY Levothyroxine Sodium (Levothyroxine Sodium 200 Mcg Tablet) 200 mcg PO DAILY@0600 [facility] Last Admin: 11/12/21 05:30 Dose: Not Given Documented by: MARK Non-Admin Reason: Med Not Available Labs CBC & Chem 7: 11/12/21 05:46 11/12/21 05:46 Labs: Laboratory Results - last 24 hr 11/11/21 11/11/21 11/11/21 13:53 16:27 17:34 MCV MCH MCHC RDW Plt Count MPV Absolute Nucleated RBC Nucleated RBC % (auto) Anion Gap 16 Estim Creat Clear Calc 30.2 Estimated GFR 24 POC Glucose 123 H Random Glucose 68 Calcium 7.3 L B-Natriuretic Peptide Vitamin B12 Folate C. difficile Tox B Gene NEGATIVE 11/11/21 11/12/21 11/12/21 21:18 05:46 05:46 MCV 101.0 H D MCH 28.9 MCHC 28.7 L RDW 16.4 H Plt Count 274 MPV 9.3 L Absolute Nucleated RBC 0.000 Nucleated RBC % (auto) 0.0 Anion Gap 14 Estim Creat Clear Calc 27.8 Estimated GFR 22 POC Glucose 169 H Random Glucose 72 Calcium 6.9 L B-Natriuretic Peptide Vitamin B12 Folate C. difficile Tox B Gene 11/12/21 11/12/21 11/12/21 05:46 05:46 07:17 MCV MCH MCHC RDW Plt Count MPV Absolute Nucleated RBC Nucleated RBC % (auto) Anion Gap Estim Creat Clear Calc Estimated GFR POC Glucose 58 L* Random Glucose Calcium B-Natriuretic Peptide 716 H Vitamin B12 297 Folate 4.4 C. difficile Tox B Gene 11/12/21 11/12/21 07:55 11:20 MCV MCH MCHC RDW Plt Count MPV Absolute Nucleated RBC Nucleated RBC % (auto) Anion Gap Estim Creat Clear Calc Estimated GFR POC Glucose 91 158 H Random Glucose Calcium B-Natriuretic Peptide Vitamin B12 Folate C. difficile Tox B Gene TTE 11/11/21 - Normal left ventricular size and systolic function.? - Abnormal diastolic function is noted.? Spectral Doppler is ? ? indicative of a pseudonormal filling pattern.? Elevated filling? pressures. ? - Mildly increased right ventricular cavity size.? There is? ? ? normal right ventricular systolic function.? - The left atrium is moderately dilated. ? - Significantly elevated right atrial pressure.? Severe pulmonary hypertension is present. ? Microbiology Microbiology Results: Microbiology 11/10/21 Unknown Urine Culture - Preliminary Urine Catheterized - Straight Catheter Gram negative eve 11/10/21 01:46 Blood Culture - Preliminary Blood - Venous No growth after 48 hours. 11/10/21 01:46 Blood Culture - Preliminary Blood - Venous No growth after 48 hours. Assessment and Plan (1) Lactic acidosis: Status: Acute (2) Uremia of renal origin: Status: Acute (3) Acute renal failure: Status: Acute (4) Acute hyperkalemia: Status: Acute Assessment and Plan: hospital d#3 76yo F with COPD, CHF, pernicious anemia, HTN, DM2, hypothyroidism presenting with 2 wk of progressive weakness and leg swelling and 1d of worsening dyspnea presented with hypothermia, MARJORIE with uremia/hyperK/lactic acidosis and admitted to ICU for emergency HD, stepped down to [facility] on hospital d#2 # MARJORIE # metabolic acidosis # uremia # hyperK - resolved with emergency hemodialysis and also given Kayexelate - d/c'ed biacrbonate gtt - Nephrology following, leave Luis Manuel catheter for 1 more day - ?due to MTF- d/c'ed # acute hypoxic respiratory failure - wean as tolerated and diurese # pulmonary edema/CHF exacerbation/[id number] HFpEF - dialyzed as above. will diurese with IV furosemide and trend I/O, BNP, BMP, Mg # diarrhea - due to Kayexelate, resolving # UTI - ceftriaxone d#3, follow UCx # DM2 - was hypoglycemic likely due to renal failure- restarted diet # hypothyroidism - continue LT4 # COPD without acute exaerbation - ICS/LABA, prn LUCIA # VTE ppx - UFH # dispo - anticipate eventual home with [facility]NA Quality Stroke Does the patient have a stroke diagnosis?: No VTE Prior VTE?: No VTE Risk Level:: Medical - moderate - high VTE Device Contraindication: N/A - Device Ordered VTE Drug Contraindication: N/A - Med Ordered
[2021-11-12 17:31] LABS: Glucose, Whole Blood 164 mg/dL (60-115)
[2021-11-12] MEDS: Furosemide 40 MG/4 ML VIAL IVPUSH (18:39)
[2021-11-12] MEDS: cefTRIAXone sodium 1 GM in 0.9 % Sodium Chloride 50 ML IV (22:37)
[2021-11-12] MEDS: Atorvastatin Calcium 40 MG TABLET PO (22:39)
[2021-11-12] MEDS: LORazepam 0.5 MG TABLET PO (22:45)
[2021-11-12] MEDS: oxyCODONE HCl Immed Release 5 MG TABLET PO (22:45)
[2021-11-13] VITALS (9 sets, daily range): BP systolic 150–166; BP diastolic 50–69; PULSE 69–84; RESP 16–32; TEMP 36.1–36.9; O2SAT 94–98
[2021-11-13 03:39] LABS: Glucose, Whole Blood 138 mg/dL (60-115)
[2021-11-13] MEDS: Albuterol Sulfate (0.083%) 2.5 MG/3 ML VIAL.NEB INHALE ×2 (04:07→08:38)
[2021-11-13] MEDS: Levothyroxine Sodium 200 MCG TABLET PO (05:22)
[2021-11-13] MEDS: Pantoprazole Sodium 40 MG in 0.9 % Sodium Chloride 100 ML 400 MG IV (05:22)
[2021-11-13 06:03] LABS: Hematocrit 30.5 % (37.0-47.0); Mean Corpuscular HGB Conc 29.5 g/dl (31.0-35.0); Mean Corpuscular Hemoglobin 29.7 pg (27.0-33.0); Mean Corpuscular Volume 100.7 fL (80.0-98.0); Platelet Count 217 X10*3/uL (160-400); Red Blood Count 3.03 X10*6/uL (4.20-5.50); White Blood Count 6.2 X10*3/uL (4.8-10.8)
--- NOTE | 2021-11-13 06:23 | PC.NURSE ---
Pt seen on bed alert and oriented but forgetful, tolerating O2 at 2L/mi via NC, still with SOB on exertion /repositioning, meds given, prn Oxycodone given and prn Lorazepam given as requested, slept at intervals, had increased WOB around 3am, O2 sat at high 90s, with Audible wheeze, RT came and given neb with good effect.
[2021-11-13 06:25] LABS: B Type Natriuretic Peptide 582 pg/mL (<100)
[2021-11-13 06:27] LABS: Anion Gap 13 (12-20); Blood Urea Nitrogen 42 mg/dL (9-16); Carbon Dioxide 28 mmol/L (22-29); Chloride 108 mmol/L (96-108); Creatinine Clr Calc Pharmacy 32.6; Estimated Glomerular Filt Rate 26; Glucose Random 149 mg/dL (60-115); Sodium 145 mmol/L (135-145)
[2021-11-13] MEDS: Fluticasone/Vilanterol 100/25 BLST.W.DEV 1 PUFF INHALE (08:34)
[2021-11-13 09:00] LABS: Glucose, Whole Blood 119 mg/dL (60-115)
[2021-11-13] MEDS: Heparin Sodium,Porcine 5,000 UNIT/ML VIAL 5000 UNIT SUBCUT ×3 (09:16→23:40)
[2021-11-13] MEDS: Furosemide 40 MG/4 ML VIAL IVPUSH ×2 (09:16→16:09)
--- NOTE | 2021-11-13 11:05 | PM.PNNEP ---
Subjective Subjective Date of Service: 11/13/21 Principal diagnosis: MARJORIE Interval history: Seen and exmianed, events noted. Physical Exam Vital Signs: Vital Signs: Last Vital Signs Temp 97.5 F 11/13/21 07:40 Pulse 81 11/13/21 08:35 Resp 20 11/13/21 08:35 BP 158/63 H 11/13/21 07:40 Pulse Ox 94 11/13/21 07:40 BMI result Body Mass Index 48.5 Const: Other: Ill appearing. Responds to pain Lungs with rhonchi Hrt- Sinus yuri, No S3 or S4 Abd soft with BS Ns No myoclonus Ext-Erythema Objective Data Labs CBC & Chem 7: 11/13/21 05:40 11/13/21 05:40 Labs: Laboratory Results - last 24 hr 11/12/21 11/12/21 11/13/21 11:20 17:28 03:35 WBC RBC Hgb Hct MCV MCH MCHC RDW Plt Count MPV Absolute Nucleated RBC Nucleated RBC % (auto) Sodium Potassium Chloride Carbon Dioxide Anion Gap BUN Creatinine Estim Creat Clear Calc Estimated GFR POC Glucose 158 H 164 H 138 H Random Glucose Calcium Magnesium B-Natriuretic Peptide 11/13/21 11/13/21 11/13/21 05:40 05:40 05:40 WBC 6.2 RBC 3.03 L Hgb 9.0 L Hct 30.5 L MCV 100.7 H MCH 29.7 MCHC 29.5 L RDW 16.0 Plt Count 217 MPV 9.0 L Absolute Nucleated RBC 0.000 Nucleated RBC % (auto) 0.0 Sodium 145 Potassium 4.0 Chloride 108 Carbon Dioxide 28 Anion Gap 13 BUN 42 H Creatinine 1.87 H Estim Creat Clear Calc 32.6 Estimated GFR 26 POC Glucose Random Glucose 149 H Calcium 7.0 L Magnesium 2.0 B-Natriuretic Peptide 582 H 11/13/21 08:36 WBC RBC Hgb Hct MCV MCH MCHC RDW Plt Count MPV Absolute Nucleated RBC Nucleated RBC % (auto) Sodium Potassium Chloride Carbon Dioxide Anion Gap BUN Creatinine Estim Creat Clear Calc Estimated GFR POC Glucose 119 H Random Glucose Calcium Magnesium B-Natriuretic Peptide Microbiology Microbiology Results: Microbiology 11/10/21 Unknown Urine Catheterized - Straight Catheter Urine Culture - Final Enterobacter cloacae complex 11/10/21 01:46 Blood - Venous Blood Culture - Preliminary No growth after 48 hours. 11/10/21 01:46 Blood - Venous Blood Culture - Preliminary No growth after 48 hours. Procedures Date of Service Date of Service: 11/13/21 Assessment & Plan Assessment and plan (1) Lactic acidosis: Start date: 11/13/21 Status: Acute (2) Acute renal failure: Status: Acute (3) Acute hyperkalemia: Status: Acute Assessment and Plan: 1. MARJORIE: SCr stable at 2.0 range; ques new BSL vs delayed recovery 2. CKD 3: ?? BSL SCr; last Scr 1.0 on EHR dates dack to 2018 3. HyperK: resolved 4. DM 5. VOl: still hypervol on exam REC: cont diuretics; avoid metformin; track UOP/renal func; try to get BSL SCr from PCP's office; d/c HD cath; will need oupt f/u wiht renal (I will arrange) Time Spent With Patient Time: Total time spent is greater than 50% in coordination of care (as documented) at patient's floor/unit and/or counseling patient: Progress Note: Quality Stroke Does the patient have a stroke diagnosis?: No
[2021-11-13 11:33] LABS: Glucose, Whole Blood 204 mg/dL (60-115)
[2021-11-13 12:53] LABS: Methyl Alcohol NONE DETECTED
[2021-11-13] MEDS: Insulin Lispro 100 UNIT/ML 3 ML VIAL SUBCUT ×3 (13:17→20:54)
--- NOTE | 2021-11-13 13:54 | P.PNIM_ITS ---
Subjective Subjective Date of Service: 11/13/21 Interval History: Up to chair for 1st time today. Very weak and short of breath. But hopeful about her recovery. Review of Systems Review of Systems: Yes all other systems are reviewed and are negative Physical Exam Vital Signs: Vital Signs: Last Vital Signs Temp 97.7 F 11/13/21 11:54 Pulse 76 11/13/21 11:54 Resp 20 11/13/21 11:54 BP 156/65 H 11/13/21 11:54 Pulse Ox 98 11/13/21 11:54 BMI result Body Mass Index 48.5 Gen: in no acute distress HEENT: sclera anicteric, moist mucus membranes Neck: supple, RIJ HD catheter Lungs: diminished bilaterally Heart: regular rate and rhythm, no murmurs Abd: soft, non-tender, non-distended, obese : Moyer with clear urine Ext: 1+ lower extremity edema Skin: warm/well-perfused Neuro: alert and oriented x3, no focal findings Psych: appropriate affect Objective Data Active Medications Albuterol Sulfate (Albuterol Sulfate (0.083%) 2.5 Mg/3 Ml Vial.Neb) 2.5 mg INHALE Q2H PRN PRN Reason: shortness of breath/wheeze Last Admin: 11/13/21 08:38 Dose: 2.5 mg Documented by: GABRIEL Atorvastatin Calcium (Atorvastatin Calcium 40 Mg Tablet) 40 mg PO BEDTIME [facility] Last Admin: 11/12/21 22:39 Dose: 40 mg Documented by: CURTISILScottie Dextrose (Dextrose 50 % 25 Gm/50 Ml Syringe) 25 gm IVPUSH Q15M PRN; Protocol PRN Reason: per Hypoglycemia Standing Ord. Fluticasone/Vilanterol (Fluticasone/Vilanterol 100/25 Blst.W.Dev) 1 puff INHALE RDAILY [facility] Last Admin: 11/13/21 08:34 Dose: 1 puff Documented by: GABRIEL Furosemide (Furosemide 40 Mg/4 Ml Vial) 40 mg IVPUSH BID@0900,1800 [facility]; Protocol Glucose (Glucose Gel 15 Gm Gel..Gram.) 15 gm PO Q15M PRN; Protocol PRN Reason: per Hypoglycemia Standing Ord. Heparin Sodium (Porcine) (Heparin Sodium,Porcine 5,000 Unit/Ml Vial) 5,000 unit SUBCUT Q8H [facility] Last Admin: 11/13/21 09:16 Dose: 5,000 unit Documented by: BRADY Pantoprazole Sodium 40 mg/ (Sodium Chloride) 110 mls @ 400 mls/hr IV DAILY@0630 [facility] Last Infusion: 11/13/21 06:18 Dose: 0 mls/hr Documented by: MO Ceftriaxone Sodium 1 gm/ (Sodium Chloride) 50 mls @ 100 mls/hr IV Q24H [facility] Last Infusion: 11/13/21 00:35 Dose: 0 mls/hr Documented by: MO Insulin Human Lispro (Insulin Lispro 100 Unit/Ml 3 Ml Vial) 0 unit SUBCUT QIDACHS [facility]; Protocol Last Admin: 11/13/21 13:17 Dose: 4 unit Documented by: BRADY Levothyroxine Sodium (Levothyroxine Sodium 200 Mcg Tablet) 200 mcg PO DAILY@0600 [facility] Last Admin: 11/13/21 05:22 Dose: 200 mcg Documented by: MO Lorazepam (Lorazepam 0.5 Mg Tablet) 0.5 mg PO TID PRN PRN Reason: anxiety Last Admin: 11/12/21 22:45 Dose: 0.5 mg Documented by: MO Oxycodone HCl (Oxycodone Hcl Immed Release 5 Mg Tablet) 5 mg PO BID PRN PRN Reason: pain- severe Last Admin: 11/12/21 22:45 Dose: 5 mg Documented by: MO Labs CBC & Chem 7: 11/13/21 05:40 11/13/21 05:40 Labs: Laboratory Results - last 24 hr 11/10/21 11/12/21 11/13/21 08:51 17:28 03:35 MCV MCH MCHC RDW Plt Count MPV Absolute Nucleated RBC Nucleated RBC % (auto) Anion Gap Estim Creat Clear Calc Estimated GFR POC Glucose 164 H 138 H Random Glucose Calcium Magnesium B-Natriuretic Peptide Methyl Alcohol Level NONE DETECTED 11/13/21 11/13/21 11/13/21 05:40 05:40 05:40 MCV 100.7 H MCH 29.7 MCHC 29.5 L RDW 16.0 Plt Count 217 MPV 9.0 L Absolute Nucleated RBC 0.000 Nucleated RBC % (auto) 0.0 Anion Gap 13 Estim Creat Clear Calc 32.6 Estimated GFR 26 POC Glucose Random Glucose 149 H Calcium 7.0 L Magnesium 2.0 B-Natriuretic Peptide 582 H Methyl Alcohol Level 11/13/21 11/13/21 08:36 11:21 MCV MCH MCHC RDW Plt Count MPV Absolute Nucleated RBC Nucleated RBC % (auto) Anion Gap Estim Creat Clear Calc Estimated GFR POC Glucose 119 H 204 H Random Glucose Calcium Magnesium B-Natriuretic Peptide Methyl Alcohol Level Microbiology Microbiology Results: Microbiology 11/10/21 Unknown Urine Culture - Final Urine Catheterized - Straight Catheter Enterobacter cloacae complex Assessment and Plan (1) Lactic acidosis: Status: Acute (2) Uremia of renal origin: Status: Acute (3) Acute renal failure: Status: Acute (4) Acute hyperkalemia: Status: Acute Assessment and Plan: hospital d#4 76yo F with COPD, CHF, pernicious anemia, HTN, DM2, hypothyroidism presenting with 2 wk of progressive weakness and leg swelling and 1d of worsening dyspnea presented with hypothermia, MARJORIE with uremia/hyperK/lactic acidosis and admitted to ICU for emergency HD, stepped down to C on hospital d#2 # MARJORIE # metabolic acidosis # uremia # hyperK - resolved with emergency hemodialysis x1 session and also given Kayexelate - d/c'ed biacrbonate gtt - Nephrology following, d/c Luis Manuel catheter - ?due to MTF- will stop this medication # acute hypoxic respiratory failure - wean as tolerated and continue to diurese # pulmonary edema/CHF exacerbation/[id number] HFpEF - dialyzed as above. will continue to diurese with IV furosemide and trend I/O, BNP, BMP, Mg. SCr improved with diuresis, suggesting some degree of cardiorenal syndrome # diarrhea - due to Kayexelate, resolving # UTI, cobian-sensitive Enterobacter cloacae - ceftriaxone d#01/30, follow UCx # DM2 - was hypoglycemic likely due to renal failure- restarted diet and hypoglycemia has resolved # hypothyroidism - continue LT4 # COPD without acute exaerbation - ICS/LABA, prn LUCIA # VTE ppx - UFH # dispo - STR vs home with VNA Quality Stroke Does the patient have a stroke diagnosis?: No VTE Prior VTE?: No VTE Risk Level:: Medical - moderate - high VTE Device Contraindication: N/A - Device Ordered VTE Drug Contraindication: N/A - Med Ordered
[2021-11-13] MEDS: LORazepam 0.5 MG TABLET PO (16:09)
[2021-11-13 16:16] LABS: Glucose, Whole Blood 202 mg/dL (60-115)
[2021-11-13 20:30] LABS: Glucose, Whole Blood 232 mg/dL (60-115)
[2021-11-13] MEDS: Atorvastatin Calcium 40 MG TABLET PO (20:54)
[2021-11-13] MEDS: cefTRIAXone sodium 1 GM in 0.9 % Sodium Chloride 50 ML IV (21:03)
[2021-11-13] MEDS: oxyCODONE HCl Immed Release 5 MG TABLET PO (23:41)
[2021-11-14] VITALS (7 sets, daily range): BP systolic 121–175; BP diastolic 57–75; PULSE 68–82; RESP 18–20; TEMP 36.1–37.1; O2SAT 94–98; BMI 47.5
[2021-11-14] MEDS: Levothyroxine Sodium 200 MCG TABLET PO (05:58)
[2021-11-14] MEDS: Pantoprazole Sodium 40 MG in 0.9 % Sodium Chloride 100 ML 400 MG IV (05:59)
[2021-11-14 06:51] LABS: B Type Natriuretic Peptide 397 pg/mL (<100)
[2021-11-14 06:54] LABS: Anion Gap 14 (12-20); Blood Urea Nitrogen 40 mg/dL (9-16); Calcium 7.2 mg/dL (8.4-10.2); Carbon Dioxide 29 mmol/L (22-29); Chloride 107 mmol/L (96-108); Creatinine Clr Calc Pharmacy 35.8; Estimated Glomerular Filt Rate 30; Glucose Random 142 mg/dL (60-115); Potassium 4.2 mmol/L (3.3-5.1); Sodium 146 mmol/L (135-145)
[2021-11-14 07:41] LABS: Glucose, Whole Blood 161 mg/dL (60-115)
[2021-11-14] MEDS: Fluticasone/Vilanterol 100/25 BLST.W.DEV 1 PUFF INHALE (07:59)
[2021-11-14] MEDS: Heparin Sodium,Porcine 5,000 UNIT/ML VIAL 5000 UNIT SUBCUT ×2 (08:19→16:56)
[2021-11-14] MEDS: Furosemide 40 MG/4 ML VIAL IVPUSH ×2 (08:19→16:56)
[2021-11-14] MEDS: Insulin Lispro 100 UNIT/ML 3 ML VIAL SUBCUT ×4 (08:19→21:53)
--- NOTE | 2021-11-14 10:25 | PM.PNNEP ---
Subjective Subjective Date of Service: 11/14/21 Principal diagnosis: MARJORIE Interval history: seen and examined, events noted Physical Exam Vital Signs: Vital Signs: Last Vital Signs Temp 97.1 F 11/14/21 07:39 Pulse 82 11/14/21 08:01 Resp 18 11/14/21 08:01 BP 175/66 H 11/14/21 07:39 Pulse Ox 95 11/14/21 07:39 BMI result Body Mass Index 47.5 Const: Other: Ill appearing. Responds to pain Lungs with rhonchi Hrt- Sinus yuri, No S3 or S4 Abd soft with BS Ns No myoclonus Ext-Erythema Objective Data Labs CBC & Chem 7: 11/13/21 05:40 11/14/21 05:43 Labs: Laboratory Results - last 24 hr 11/10/21 11/13/21 11/13/21 08:51 11:21 16:00 Sodium Potassium Chloride Carbon Dioxide Anion Gap BUN Creatinine Estim Creat Clear Calc Estimated GFR POC Glucose 204 H 202 H Random Glucose Calcium B-Natriuretic Peptide Methyl Alcohol Level NONE DETECTED 11/13/21 11/14/21 11/14/21 20:22 05:43 05:43 Sodium 146 H Potassium 4.2 Chloride 107 Carbon Dioxide 29 Anion Gap 14 BUN 40 H Creatinine 1.68 H Estim Creat Clear Calc 35.8 Estimated GFR 30 POC Glucose 232 H Random Glucose 142 H Calcium 7.2 L B-Natriuretic Peptide 397 H Methyl Alcohol Level 11/14/21 07:37 Sodium Potassium Chloride Carbon Dioxide Anion Gap BUN Creatinine Estim Creat Clear Calc Estimated GFR POC Glucose 161 H Random Glucose Calcium B-Natriuretic Peptide Methyl Alcohol Level Microbiology Microbiology Results: Microbiology 11/10/21 Unknown Urine Catheterized - Straight Catheter Urine Culture - Final Enterobacter cloacae complex 11/10/21 01:46 Blood - Venous Blood Culture - Preliminary No growth after 48 hours. 11/10/21 01:46 Blood - Venous Blood Culture - Preliminary No growth after 48 hours. Procedures Date of Service Date of Service: 11/14/21 Assessment & Plan Assessment and plan (1) Lactic acidosis: Status: Acute (2) Acute renal failure: Status: Acute (3) Acute hyperkalemia: Status: Acute Assessment and Plan: 1. MARJORIE: SCr cont to grad decr; ques new BSL 2. CKD 3: ?? BSL SCr; last Scr 1.0 on EHR dates dack to 2018 3. HyperK: resolved 4. DM 5. VOl: imporved REC: switch iv lasix to torsemide 40 qd; avoid metformin; track UOP/renal func; try to get BSL SCr from PCP's office; d/c HD cath; d/c francisco; will need oupt f/u wiht renal (I will arrange) Time Spent With Patient Time: Total time spent is greater than 50% in coordination of care (as documented) at patient's floor/unit and/or counseling patient: Progress Note: Quality Stroke Does the patient have a stroke diagnosis?: No
[2021-11-14 11:24] LABS: Glucose, Whole Blood 241 mg/dL (60-115)
[2021-11-14] MEDS: oxyCODONE HCl Immed Release 5 MG TABLET PO (11:45)
--- NOTE | 2021-11-14 11:48 | PC.NURSE ---
Skin/Wound assessment completed. Patient's skin tear on right arm has healed. Bilateral bruising to arms. No other skin issues noted at this time.
--- NOTE | 2021-11-14 13:26 | HO.PM.IMPN ---
Subjective Subjective Date of Service: 11/14/21 Interval History: Awake alert, complaining of generalized weakness, rectal tube with small amount of brown liquidy stool, Moyer catheter with clear urine, concern about removing rectal tube since she is nervous about bowel incontinence, denies shortness of breath, no fevers no chills no other acute issues overnight. Review of Systems Review of Systems: Yes all other systems are reviewed and are negative Physical Exam Vital Signs: Vital Signs: Last Vital Signs Temp 98.2 F 11/14/21 12:00 Pulse 69 11/14/21 12:00 Resp 20 11/14/21 12:00 BP 174/75 H 11/14/21 12:00 Pulse Ox 97 11/14/21 12:00 BMI result Body Mass Index 47.5 Gen: in no acute d istress HEENT: scl era anicteric, [address] st mucus membranes Neck: supple, RIJ HD catheter, no J VD Lungs: diminish ed bilaterally, no wheeze no rhonchi Heart: regular ra te and rhythm, no murmurs Abd: soft, non-tender, non-d istended, obese : Moyer with clear urine Ext: 1+ low er extremity edema Skin: warm/well-p erfused Neuro: frances rt and oriented x3 , no focal finding s Psych: appropria te affect Objective Data Active Medications Albuterol Sulfate (Albuterol Sulfate (0.083%) 2.5 Mg/3 Ml Vial.Neb) 2.5 mg INHALE Q2H PRN PRN Reason: shortness of breath/wheeze Last Admin: 11/13/21 08:38 Dose: 2.5 mg Documented by: GABRIEL Atorvastatin Calcium (Atorvastatin Calcium 40 Mg Tablet) 40 mg PO BEDTIME [facility] Last Admin: 11/13/21 20:54 Dose: 40 mg Documented by: ABIDA Dextrose (Dextrose 50 % 25 Gm/50 Ml Syringe) 25 gm IVPUSH Q15M PRN; Protocol PRN Reason: per Hypoglycemia Standing Ord. Fluticasone/Vilanterol (Fluticasone/Vilanterol 100/25 Blst.W.Dev) 1 puff INHALE RDAILY [facility] Last Admin: 11/14/21 07:59 Dose: 1 puff Documented by: SAMRA Furosemide (Furosemide 40 Mg/4 Ml Vial) 40 mg IVPUSH BID@0900,1800 [facility]; Protocol Last Admin: 11/14/21 08:19 Dose: 40 mg Documented by: JUAN MIGUEL Glucose (Glucose Gel 15 Gm Gel..Gram.) 15 gm PO Q15M PRN; Protocol PRN Reason: per Hypoglycemia Standing Ord. Heparin Sodium (Porcine) (Heparin Sodium,Porcine 5,000 Unit/Ml Vial) 5,000 unit SUBCUT Q8H [facility] Last Admin: 11/14/21 08:19 Dose: 5,000 unit Documented by: JUAN MIGUEL Ceftriaxone Sodium 1 gm/ (Sodium Chloride) 50 mls @ 100 mls/hr IV Q24H [facility] Last Infusion: 11/13/21 21:41 Dose: 0 mls/hr Documented by: ABIDA Insulin Human Lispro (Insulin Lispro 100 Unit/Ml 3 Ml Vial) 0 unit SUBCUT QIDACHS [facility]; Protocol Last Admin: 11/14/21 11:44 Dose: 4 unit Documented by: JUAN MIGUEL Levothyroxine Sodium (Levothyroxine Sodium 200 Mcg Tablet) 200 mcg PO DAILY@0600 [facility] Last Admin: 11/14/21 05:58 Dose: 200 mcg Documented by: ABIDA Lorazepam (Lorazepam 0.5 Mg Tablet) 0.5 mg PO TID PRN PRN Reason: anxiety Last Admin: 11/13/21 16:09 Dose: 0.5 mg Documented by: LEIGHTON Oxycodone HCl (Oxycodone Hcl Immed Release 5 Mg Tablet) 5 mg PO BID PRN PRN Reason: pain- severe Last Admin: 11/14/21 11:45 Dose: 5 mg Documented by: JUAN MIGUEL Labs CBC & Chem 7: 11/13/21 05:40 11/14/21 05:43 Labs: Laboratory Results - last 24 hr 11/13/21 11/13/21 11/14/21 16:00 20:22 05:43 Anion Gap 14 Estim Creat Clear Calc 35.8 Estimated GFR 30 POC Glucose 202 H 232 H Random Glucose 142 H Calcium 7.2 L B-Natriuretic Peptide 11/14/21 11/14/21 11/14/21 05:43 07:37 11:19 Anion Gap Estim Creat Clear Calc Estimated GFR POC Glucose 161 H 241 H Random Glucose Calcium B-Natriuretic Peptide 397 H Assessment and Plan (1) Chronic pain syndrome: Status: Acute (2) COPD (chronic obstructive pulmonary disease): Status: Acute (3) Hypothyroidism: Status: Acute (4) Essential hypertension: Status: Acute (5) Diabetes mellitus: Status: Acute (6) Pure hypercholesterolemia: Status: Acute (7) Uremia of renal origin: Status: Acute (8) Acute hyperkalemia: Status: Acute (9) Urinary tract infection: Status: Acute Assessment and Plan: 76yo F with COPD, CHF, pernicious anemia, HTN, DM2, hypothyroidism presenting with 2 wk of progressive weakness and leg swelling and 1d of worsening dyspnea presented with hypothermia, MARJORIE with uremia/hyperK/lactic acidosis and admitted to ICU for emergency HD, stepped down to [facility] on hospital d#2 # MARJORIE with metabolic acidosis and hyperkalemia - resolved with emergency hemodialysis x1 session and also given Kayexelate likely due to metformin Creatinine gradually trending down from 3 to 1.68 today, last baseline creatinine 1.07 [address] Nichole he recommend to discontinue hemodialysis catheter and Moyer catheter # acute hypoxic respiratory failure - wean as tolerated currently 97% on 3 L, continue to diurese # pulmonary edema/CHF exacerbation/[id number] HFpEF - dialyzed as above.? will continue to diurese with IV furosemide 40 mg b.i.d. and trend I/O, BNP, BMP, Mg.? SCr improved with diuresis, suggesting some degree of cardiorenal syndrome # diarrhea - due to Kayexelate, resolving, will DC rectal tube, will use bedside commode # UTI, cobian-sensitive Enterobacter cloacae - ceftriaxone d#03/01, urine culture grew Enterobacter [place] a sensitive to ceftriaxone # DM2 - was hypoglycemic likely due to renal failure- restarted diet and hypoglycemia has resolved, blood sugar trending up to 200 range, was on metformin at home that has been discontinued will consider glipizide XL low-dose # hypothyroidism - continue LT4 # COPD without acute exaerbation - ICS/LABA, prn LUCIA # VTE ppx - UFH # dispo - STR vs home with VNA, tolerating physical therapy Quality Stroke Does the patient have a stroke diagnosis?: No VTE Prior VTE?: No VTE Risk Level:: Medical - moderate - high VTE Device Contraindication: N/A - Device Ordered VTE Drug Contraindication: N/A - Med Ordered
[2021-11-14 16:46] LABS: Glucose, Whole Blood 199 mg/dL (60-115)
[2021-11-14 20:15] LABS: Glucose, Whole Blood 268 mg/dL (60-115)
[2021-11-14] MEDS: cefTRIAXone sodium 1 GM in 0.9 % Sodium Chloride 50 ML IV (21:53)
[2021-11-14] MEDS: Atorvastatin Calcium 40 MG TABLET PO (21:53)
[2021-11-14] MEDS: LORazepam 0.5 MG TABLET PO (21:53)
[2021-11-15] VITALS (9 sets, daily range): BP systolic 123–170; BP diastolic 44–81; PULSE 70–84; RESP 18–19; TEMP 36.3–37.1; O2SAT 93–98; BMI 47.9
[2021-11-15] MEDS: oxyCODONE HCl Immed Release 5 MG TABLET PO ×2 (00:09→12:53)
[2021-11-15] MEDS: Heparin Sodium,Porcine 5,000 UNIT/ML VIAL 5000 UNIT SUBCUT ×3 (00:09→16:27)
[2021-11-15] MEDS: Levothyroxine Sodium 200 MCG TABLET PO (06:00)
[2021-11-15 06:59] LABS: Anion Gap 13 (12-20); Blood Urea Nitrogen 41 mg/dL (9-16); Calcium 7.1 mg/dL (8.4-10.2); Carbon Dioxide 33 mmol/L (22-29); Chloride 101 mmol/L (96-108); Creatinine Clr Calc Pharmacy 32.8; Estimated Glomerular Filt Rate 27; Glucose Random 169 mg/dL (60-115); Potassium 3.7 mmol/L (3.3-5.1); Sodium 143 mmol/L (135-145)
[2021-11-15 07:10] LABS: Glucose, Whole Blood 170 mg/dL (60-115)
[2021-11-15] MEDS: Fluticasone/Vilanterol 100/25 BLST.W.DEV 1 PUFF INHALE (08:29)
[2021-11-15] MEDS: Insulin Lispro 100 UNIT/ML 3 ML VIAL SUBCUT ×4 (08:51→22:23)
[2021-11-15] MEDS: Furosemide 40 MG/4 ML VIAL IVPUSH (08:52)
[2021-11-15 10:56] LABS: Glucose, Whole Blood 266 mg/dL (60-115)
--- NOTE | 2021-11-15 12:59 | MHC.CM.PN ---
Female 76 MARJORIE HyperK+ NO VAXX. She lives with son. He assists with meals and adls. DP STR A referral was sent to [facility] at Pts request. No bed available in . Added Patience Eduardo to referral. She will transport via [facility]
--- NOTE | 2021-11-15 15:08 | P.PNNP_ITS ---
Subjective Subjective Date of Service: 11/15/21 Principal diagnosis: MARJORIE Interval history: Seen and examined, events noted Physical Exam Vital Signs: Vital Signs: Last Vital Signs Temp 98.3 F 11/15/21 10:59 Pulse 72 11/15/21 13:38 Resp 18 11/15/21 10:59 BP 170/81 H 11/15/21 13:38 Pulse Ox 93 11/15/21 13:38 BMI result Body Mass Index 47.9 Const: Other: Ill appearing. Responds to pain Lungs with rhonchi Hrt- Sinus yuri, No S3 or S4 Abd soft with BS Ns No myoclonus Ext-Erythema Objective Data Labs CBC & Chem 7: 11/13/21 05:40 11/15/21 06:11 Labs: Laboratory Results - last 24 hr 11/14/21 11/14/21 11/15/21 16:31 19:59 06:11 Sodium 143 Potassium 3.7 Chloride 101 Carbon Dioxide 33 H Anion Gap 13 BUN 41 H Creatinine 1.84 H Estim Creat Clear Calc 32.8 Estimated GFR 27 POC Glucose 199 H 268 H Random Glucose 169 H Calcium 7.1 L 11/15/21 11/15/21 07:05 10:53 Sodium Potassium Chloride Carbon Dioxide Anion Gap BUN Creatinine Estim Creat Clear Calc Estimated GFR POC Glucose 170 H 266 H Random Glucose Calcium Microbiology Microbiology Results: Microbiology 11/10/21 01:46 Blood - Venous Blood Culture - Final No growth after 5 days. 11/10/21 01:46 Blood - Venous Blood Culture - Final No growth after 5 days. 11/10/21 Unknown Urine Catheterized - Straight Catheter Urine Culture - Final Enterobacter cloacae complex Procedures Date of Service Date of Service: 11/15/21 Assessment & Plan Assessment and plan (1) Lactic acidosis: Status: Acute (2) Acute renal failure: Status: Acute (3) Acute hyperkalemia: Status: Acute Assessment and Plan: 1. MARJORIE: SCr slt bump up today may reflect ongoing diuresis; ques new BSL 2. CKD 3: ?? BSL SCr; last Scr 1.0 on EHR dates dack to 2018 3. HyperK: resolved 4. DM 5. VOl: imporved REC: hold diuretics x 24 hrs and start torsemide 20- 40 qd in next 24-48 hrs; a void metformin; track UOP/renal func; try to get BSL SCr from PCP's office;d/c francisco; will need oupt f/u with renal (I will arrange) Time Spent With Patient Time: Total time spent is greater than 50% in coordination of care (as documented) at patient's floor/unit and/or counseling patient: Progress Note: Quality Stroke Does the patient have a stroke diagnosis?: No
[2021-11-15 16:14] LABS: Glucose, Whole Blood 260 mg/dL (60-115)
--- NOTE | 2021-11-15 16:20 | P.PNIM_ITS ---
Subjective Subjective Date of Service: 11/15/21 Interval History: Sitting on recliner offers no acute complaints rectal tube removed no episodes of diarrhea or incontinence noted, resistant for removal of Moyer catheter, no acute events overnight. Review of Systems Review of Systems: Yes all other systems are reviewed and are negative Physical Exam Vital Signs: Vital Signs: Last Vital Signs Temp 98.7 F 11/15/21 15:14 Pulse 71 11/15/21 15:14 Resp 19 11/15/21 15:14 BP 153/44 H 11/15/21 15:14 Pulse Ox 94 11/15/21 15:14 BMI result Body Mass Index 47.9 Const: Other: Gen: in no acute distress Neck: supple, no JVD Lungs: diminished bilaterally, no?wheeze no rhonchi Heart: regular rate and rhythm, nomurmurs Abd: soft,?non-tender, non-distended, obese : Moyer with clear?urine Ext: Tracelower extremity edema Skin: warm/well-perfused Neuro: alert and oriented x3, no focal findings Psych: appropriate affect Objective Data Active Medications Albuterol Sulfate (Albuterol Sulfate (0.083%) 2.5 Mg/3 Ml Vial.Neb) 2.5 mg INHALE Q2H PRN PRN Reason: shortness of breath/wheeze Last Admin: 11/13/21 08:38 Dose: 2.5 mg Documented by: GABRIEL Atorvastatin Calcium (Atorvastatin Calcium 40 Mg Tablet) 40 mg PO BEDTIME [facility] Last Admin: 11/14/21 21:53 Dose: 40 mg Documented by: ABDULKADIR Dextrose (Dextrose 50 % 25 Gm/50 Ml Syringe) 25 gm IVPUSH Q15M PRN; Protocol PRN Reason: per Hypoglycemia Standing Ord. Fluticasone/Vilanterol (Fluticasone/Vilanterol 100/25 Blst.W.Dev) 1 puff INHALE RDAILY [facility] Last Admin: 11/15/21 08:29 Dose: 1 puff Documented by: SAMRA Glucose (Glucose Gel 15 Gm Gel..Gram.) 15 gm PO Q15M PRN; Protocol PRN Reason: per Hypoglycemia Standing Ord. Heparin Sodium (Porcine) (Heparin Sodium,Porcine 5,000 Unit/Ml Vial) 5,000 unit SUBCUT Q8H [facility] Last Admin: 11/15/21 08:52 Dose: 5,000 unit Documented by: HENOK Ceftriaxone Sodium 1 gm/ (Sodium Chloride) 50 mls @ 100 mls/hr IV Q24H [facility] Last Infusion: 11/14/21 22:59 Dose: 0 mls/hr Documented by: ABDULKADIR Insulin Human Lispro (Insulin Lispro 100 Unit/Ml 3 Ml Vial) 0 unit SUBCUT QIDACHS [facility]; Protocol Last Admin: 11/15/21 12:54 Dose: 6 unit Documented by: HENOK Levothyroxine Sodium (Levothyroxine Sodium 200 Mcg Tablet) 200 mcg PO DAILY@0600 [facility] Last Admin: 11/15/21 06:00 Dose: 200 mcg Documented by: YOLY Lorazepam (Lorazepam 0.5 Mg Tablet) 0.5 mg PO TID PRN PRN Reason: anxiety Last Admin: 11/14/21 21:53 Dose: 0.5 mg Documented by: ABDULKADIR Oxycodone HCl (Oxycodone Hcl Immed Release 5 Mg Tablet) 5 mg PO BID PRN PRN Reason: pain- severe Last Admin: 11/15/21 12:53 Dose: 5 mg Documented by: HENOK Labs CBC & Chem 7: 11/13/21 05:40 11/15/21 06:11 Labs: Laboratory Results - last 24 hr 11/14/21 11/14/21 11/15/21 16:31 19:59 06:11 Anion Gap 13 Estim Creat Clear Calc 32.8 Estimated GFR 27 POC Glucose 199 H 268 H Random Glucose 169 H Calcium 7.1 L 11/15/21 11/15/21 11/15/21 07:05 10:53 15:16 Anion Gap Estim Creat Clear Calc Estimated GFR POC Glucose 170 H 266 H 260 H Random Glucose Calcium Microbiology Microbiology Results: Microbiology 11/10/21 01:46 Blood Culture - Final Blood - Venous No growth after 5 days. 11/10/21 01:46 Blood Culture - Final Blood - Venous No growth after 5 days. Assessment and Plan (1) Chronic pain syndrome: Status: Acute (2) COPD (chronic obstructive pulmonary disease): Status: Acute (3) Hypothyroidism: Status: Acute (4) Essential hypertension: Status: Acute (5) Diabetes mellitus: Status: Acute (6) Pure hypercholesterolemia: Status: Acute (7) Uremia of renal origin: Status: Acute (8) Acute hyperkalemia: Status: Acute (9) Urinary tract infection: Status: Acute Assessment and Plan: 76yo F with COPD, CHF, pernicious anemia, HTN, DM2, hypothyroidism presenting with 2 wk of progressive weakness and leg swelling and 1d of worsening dyspnea presented with hypothermia, MARJORIE with uremia/hyperK/lactic acidosis and admitted to ICU for emergency HD, stepped down to [facility]MC on hospital d#2 # MARJORIE with metabolic acidosis and hyperkalemia - resolved with emergency hemodialysis x1 session and also given Kayexelate likely due to metformin Creatinine trended down from 3 to 1.68 but bumped back to 1.84 today, last baseline creatinine 1.07 2018 hemodialysis catheter removed, patient refusing to remove Moyer catheter Case discussed with Nephrology will hold diuretics times 24 hours and start torsemide 20-40 mg daily, will need close outpatient nephrology follow # acute hypoxic respiratory failure - wean as tolerated currently 94% on 2 L # pulmonary edema/CHF exacerbation/[id number] HFpEF - dialyzed as above.? Will hold diuretics since appear euvolemic and noted to have bump in creatinine , resume diuretics torsemide 20- 40 mg daily if noted to have fluid overload, follow BMP. # diarrhea - due to Kayexelate, resolved, rectal tube removed. # UTI, cobian-sensitive Enterobacter cloacae - ceftriaxone d#6/7, urine culture grew Enterobacter sensitive to ceftriaxone # DM2 - was hypoglycemic likely due to renal failure- restarted diet and hypoglycemia has resolved, blood sugar trending up to 200 range, was on metformin at home that has been discontinued start glipizide XL low-dose # hypothyroidism - continue LT4 # COPD without acute exaerbation - ICS/LABA, prn LUCIA # VTE ppx - UFH # dispo - STR psych social worker looking for bed Quality Stroke Does the patient have a stroke diagnosis?: No VTE Prior VTE?: No VTE Risk Level:: Medical - moderate - high VTE Device Contraindication: N/A - Device Ordered VTE Drug Contraindication: N/A - Med Ordered
[2021-11-15] MEDS: LORazepam 0.5 MG TABLET PO (17:50)
[2021-11-15 21:58] LABS: Glucose, Whole Blood 258 mg/dL (60-115)
[2021-11-15] MEDS: cefTRIAXone sodium 1 GM in 0.9 % Sodium Chloride 50 ML IV (22:23)
[2021-11-15] MEDS: Atorvastatin Calcium 40 MG TABLET PO (22:23)
[2021-11-16] VITALS (7 sets, daily range): BP systolic 135–163; BP diastolic 55–71; PULSE 64–76; RESP 16–19; TEMP 36.2–36.8; O2SAT 95–100; BMI 49.3
[2021-11-16] MEDS: Heparin Sodium,Porcine 5,000 UNIT/ML VIAL 5000 UNIT SUBCUT ×4 (00:01→23:41)
[2021-11-16] MEDS: oxyCODONE HCl Immed Release 5 MG TABLET PO ×2 (00:50→14:01)
[2021-11-16] MEDS: Levothyroxine Sodium 200 MCG TABLET PO (05:27)
[2021-11-16 06:28] LABS: Anion Gap 13 (12-20); Blood Urea Nitrogen 43 mg/dL (9-16); Calcium 7.3 mg/dL (8.4-10.2); Carbon Dioxide 34 mmol/L (22-29); Chloride 99 mmol/L (96-108); Creatinine Clr Calc Pharmacy 37.3; Estimated Glomerular Filt Rate 30; Glucose Random 170 mg/dL (60-115); Sodium 142 mmol/L (135-145)
[2021-11-16 06:37] LABS: B Type Natriuretic Peptide 254 pg/mL (<100)
[2021-11-16 07:54] LABS: Glucose, Whole Blood 151 mg/dL (60-115)
[2021-11-16] MEDS: Fluticasone/Vilanterol 100/25 BLST.W.DEV 1 PUFF INHALE (08:07)
[2021-11-16] MEDS: glipiZIDE XL 2.5 MG TAB.ER.24 PO (08:33)
[2021-11-16] MEDS: Insulin Lispro 100 UNIT/ML 3 ML VIAL SUBCUT ×4 (08:33→22:44)
--- NOTE | 2021-11-16 10:56 | MHC.CM.PN ---
NO UNVACCINATED BED OFFERS. [facility] IS STILL WILLING TO OFFER. RECTAL TUBE IS REMOVED. POSSIBLY HOME BY Thursday11/18/21 WITH NEW [facility]
--- NOTE | 2021-11-16 11:09 | MHC.CM.PN ---
PATIENT IS NOT AGREEABLE TO DC HOME TODAY OR TOMORROW. SHE IS AWARE OF NO LOCAL BED OFFERS. SHE DOES AGREE TO FINDING A BED OUT OF THE AREA AND ASKS THAT CASE MANAGEMENT TRY THIS OPTION. REFERRAL PLACED TO [facility] AND WILL BE ADDED TO IF NEEDED. CASE MANAGEMENT CONTINUING TO FOLLOW
[2021-11-16 11:49] LABS: Glucose, Whole Blood 224 mg/dL (60-115)
--- NOTE | 2021-11-16 12:29 | HO.PM.IMPN ---
Subjective Subjective Date of Service: 11/16/21 Interval History: good appetite rectal tube removed wishes to keep Moyer for now awaiting STR placement Review of Systems Review of Systems: Yes all other systems are reviewed and are negative Physical Exam Vital Signs: Vital Signs: Last Vital Signs Temp 97.3 F 11/16/21 12:00 Pulse 67 11/16/21 12:00 Resp 18 11/16/21 12:00 BP 136/65 11/16/21 07:57 Pulse Ox 95 11/16/21 12:00 BMI result Body Mass Index 49.3 Gen: in no acute distress HEENT: sclera anicteric, moist mucus membranes Neck: supple Lungs: diminished at bases bilaterally Heart: regular rate and rhythm, no murmurs Abd: soft, non-tender, non-distended, obese Ext: no edema Skin: warm/well-perfused Neuro: alert and oriented x3, no focal findings Psych: appropriate affect Objective Data Active Medications Albuterol Sulfate (Albuterol Sulfate (0.083%) 2.5 Mg/3 Ml Vial.Neb) 2.5 mg INHALE Q2H PRN PRN Reason: shortness of breath/wheeze Last Admin: 11/13/21 08:38 Dose: 2.5 mg Documented by: GABRIEL Atorvastatin Calcium (Atorvastatin Calcium 40 Mg Tablet) 40 mg PO BEDTIME [facility] Last Admin: 11/15/21 22:23 Dose: 40 mg Documented by: SALEEM Dextrose (Dextrose 50 % 25 Gm/50 Ml Syringe) 25 gm IVPUSH Q15M PRN; Protocol PRN Reason: per Hypoglycemia Standing Ord. Fluticasone/Vilanterol (Fluticasone/Vilanterol 100/25 Blst.W.Dev) 1 puff INHALE RDAILY [facility] Last Admin: 11/16/21 08:07 Dose: 1 puff Documented by: KATRINA Glipizide (Glipizide Xl 2.5 Mg Tab.Er.24) 2.5 mg PO DAILY [facility] Last Admin: 11/16/21 08:33 Dose: 2.5 mg Documented by: JUAN CARLOS Glucose (Glucose Gel 15 Gm Gel..Gram.) 15 gm PO Q15M PRN; Protocol PRN Reason: per Hypoglycemia Standing Ord. Heparin Sodium (Porcine) (Heparin Sodium,Porcine 5,000 Unit/Ml Vial) 5,000 unit SUBCUT Q8H [facility] Last Admin: 11/16/21 08:33 Dose: 5,000 unit Documented by: JUAN CARLOS Ceftriaxone Sodium 1 gm/ (Sodium Chloride) 50 mls @ 100 mls/hr IV Q24H [facility] Last Infusion: 11/15/21 23:23 Dose: 100 mls/hr Documented by: SALEEM Insulin Human Lispro (Insulin Lispro 100 Unit/Ml 3 Ml Vial) 0 unit SUBCUT QIDACHS [facility]; Protocol Last Admin: 11/16/21 12:03 Dose: 4 unit Documented by: JUAN CARLOS Levothyroxine Sodium (Levothyroxine Sodium 200 Mcg Tablet) 200 mcg PO DAILY@0600 [facility] Last Admin: 11/16/21 05:27 Dose: 200 mcg Documented by: SALEEM Lorazepam (Lorazepam 0.5 Mg Tablet) 0.5 mg PO TID PRN PRN Reason: anxiety Last Admin: 11/15/21 17:50 Dose: 0.5 mg Documented by: MUSA Oxycodone HCl (Oxycodone Hcl Immed Release 5 Mg Tablet) 5 mg PO BID PRN PRN Reason: pain- severe Last Admin: 11/16/21 00:50 Dose: 5 mg Documented by: SALEEM Labs CBC & Chem 7: 11/13/21 05:40 11/16/21 05:24 Labs: Laboratory Results - last 24 hr 11/15/21 11/15/21 11/16/21 15:16 21:18 05:24 Anion Gap 13 Estim Creat Clear Calc 37.3 Estimated GFR 30 POC Glucose 260 H 258 H Random Glucose 170 H Calcium 7.3 L B-Natriuretic Peptide 11/16/21 11/16/21 11/16/21 05:24 07:27 11:44 Anion Gap Estim Creat Clear Calc Estimated GFR POC Glucose 151 H 224 H Random Glucose Calcium B-Natriuretic Peptide 254 H Assessment and Plan (1) Chronic pain syndrome: Status: Acute (2) COPD (chronic obstructive pulmonary disease): Status: Acute (3) Hypothyroidism: Status: Acute (4) Essential hypertension: Status: Acute (5) Diabetes mellitus: Status: Acute (6) Pure hypercholesterolemia: Status: Acute (7) Uremia of renal origin: Status: Acute (8) Acute hyperkalemia: Status: Acute (9) Urinary tract infection: Status: Acute Assessment and Plan: hospital d#7 76yo F with COPD, CHF, pernicious anemia, HTN, DM2, hypothyroidism presenting with 2 wk of progressive weakness and leg swelling and 1d of worsening dyspnea presented with hypothermia, MARJORIE with uremia/hyperK/lactic acidosis and admitted to ICU for emergency HD, stepped down to IMC on hospital d#2 # MARJORIE with metabolic acidosis and hyperkalemia - resolved with emergency hemodialysis x1 session and also given Kayexelate likely due to metformin - SCr 3.01->1.68->1.84->1.65 - start torsemide 20 mg daily today - HD catheter removed # acute hypoxic respiratory failure - wean as tolerated; currently 95% on 3 L # pulmonary edema/CHF exacerbation/[id number] HFpEF - dialyzed as above.? was on IV diuresis- held for increasing SCr, now improved. start torsemide as above. # diarrhea - due to Kayexelate, resolved, rectal tube removed. # UTI, cobian-sensitive Enterobacter cloacae - ceftriaxone d#05/01 # DM2 - was hypoglycemic likely due to renal failure- restarted diet and hypoglycemia has resolved, blood sugar trending up to 200 range, was on metformin at home that has been discontinued - started glipizide XR # hypothyroidism - continue LT4 # COPD without acute exaerbation - ICS/LABA, prn LUCIA # VTE ppx - UFH # dispo - STR, awaiting placement, complicated by unvaccinated status Quality Stroke Does the patient have a stroke diagnosis?: No VTE Prior VTE?: No VTE Risk Level:: Medical - moderate - high VTE Device Contraindication: N/A - Device Ordered VTE Drug Contraindication: N/A - Med Ordered
--- NOTE | 2021-11-16 12:42 | PM.PNNEP ---
Subjective Subjective Date of Service: 11/16/21 Principal diagnosis: MARJORIE Interval history: Seen and examined, events noted Physical Exam Vital Signs: Vital Signs: Last Vital Signs Temp 97.3 F 11/16/21 12:00 Pulse 67 11/16/21 12:00 Resp 18 11/16/21 12:00 BP 136/65 11/16/21 07:57 Pulse Ox 95 11/16/21 12:00 BMI result Body Mass Index 49.3 Const: Other: Ill appearing. Responds to pain Lungs with rhonchi Hrt- Sinus yuri, No S3 or S4 Abd soft with BS Ns No myoclonus Ext-Erythema Objective Data Labs CBC & Chem 7: 11/13/21 05:40 11/16/21 05:24 Labs: Laboratory Results - last 24 hr 11/15/21 11/15/21 11/16/21 15:16 21:18 05:24 Sodium 142 Potassium 4.0 Chloride 99 Carbon Dioxide 34 H Anion Gap 13 BUN 43 H Creatinine 1.65 H Estim Creat Clear Calc 37.3 Estimated GFR 30 POC Glucose 260 H 258 H Random Glucose 170 H Calcium 7.3 L B-Natriuretic Peptide 11/16/21 11/16/21 11/16/21 05:24 07:27 11:44 Sodium Potassium Chloride Carbon Dioxide Anion Gap BUN Creatinine Estim Creat Clear Calc Estimated GFR POC Glucose 151 H 224 H Random Glucose Calcium B-Natriuretic Peptide 254 H Microbiology Microbiology Results: Microbiology 11/10/21 01:46 Blood - Venous Blood Culture - Final No growth after 5 days. 11/10/21 01:46 Blood - Venous Blood Culture - Final No growth after 5 days. 11/10/21 Unknown Urine Catheterized - Straight Catheter Urine Culture - Final Enterobacter cloacae complex Procedures Date of Service Date of Service: 11/16/21 Assessment & Plan Assessment and plan (1) Lactic acidosis: Status: Acute (2) Acute renal failure: Status: Acute (3) Acute hyperkalemia: Status: Acute Assessment and Plan: 1. MARJORIE: SCr slt bump up today may reflect ongoing diuresis; ques new BSL 2. CKD 3: ?? BSL SCr; last Scr 1.0 on EHR dates dack to 2019 3. HyperK: resolved 4. DM 5. VOl: imporved REC:start torsemide 20 qd; avoid metformin; track UOP/renal func; try to get BSL SCr from PCP's office;d/c [place]; will need oupt f/u with renal (I will arrange) Time Spent With Patient Time: Total time spent is greater than 50% in coordination of care (as documented) at patient's floor/unit and/or counseling patient: Progress Note: Quality Stroke Does the patient have a stroke diagnosis?: No
[2021-11-16 17:01] LABS: Glucose, Whole Blood 241 mg/dL (60-115)
[2021-11-16] MEDS: LORazepam 0.5 MG TABLET PO (17:14)
[2021-11-16 20:52] LABS: Glucose, Whole Blood 282 mg/dL (60-115)
[2021-11-16] MEDS: Atorvastatin Calcium 40 MG TABLET PO (22:44)
[2021-11-16] MEDS: cefTRIAXone sodium 1 GM in 0.9 % Sodium Chloride 50 ML IV (23:35)
[2021-11-17] VITALS (7 sets, daily range): BP systolic 124–171; BP diastolic 60–70; PULSE 65–77; RESP 16–19; TEMP 36–36.6; O2SAT 94–98
[2021-11-17] MEDS: oxyCODONE HCl Immed Release 5 MG TABLET PO ×2 (01:26→13:50)
[2021-11-17] MEDS: Levothyroxine Sodium 200 MCG TABLET PO (06:41)
[2021-11-17 07:58] LABS: Glucose, Whole Blood 170 mg/dL (60-115)
[2021-11-17] MEDS: Torsemide 20 MG TABLET PO (08:22)
[2021-11-17] MEDS: Heparin Sodium,Porcine 5,000 UNIT/ML VIAL 5000 UNIT SUBCUT ×3 (08:22→23:33)
[2021-11-17] MEDS: glipiZIDE XL 2.5 MG TAB.ER.24 PO (08:22)
[2021-11-17] MEDS: Insulin Lispro 100 UNIT/ML 3 ML VIAL SUBCUT ×4 (08:22→21:07)
--- NOTE | 2021-11-17 11:17 | HO.PM.IMPN ---
Subjective Subjective Date of Service: 11/17/21 Interval History: no dyspnea no chest pain no nausea or abd pain Review of Systems Review of Systems: Yes all other systems are reviewed and are negative Physical Exam Vital Signs: Vital Signs: Last Vital Signs Temp 97.2 F 11/17/21 08:00 Pulse 76 11/17/21 08:00 Resp 19 11/17/21 08:00 BP 149/69 H 11/17/21 08:00 Pulse Ox 98 11/17/21 08:00 BMI result Body Mass Index 49.3 Gen: in no acute distress HEENT: sclera anicteric, moist mucus membranes Neck: supple Lungs: diminished at bases bilaterally Heart: regular rate and rhythm, no murmurs : Moyer draining clear urine Abd: soft, non-tender, non-distended, obese Ext: no edema Skin: warm/well-perfused Neuro: alert and oriented x3, no focal findings Psych: appropriate affect Objective Data Active Medications Albuterol Sulfate (Albuterol Sulfate (0.083%) 2.5 Mg/3 Ml Vial.Neb) 2.5 mg INHALE Q2H PRN PRN Reason: shortness of breath/wheeze Last Admin: 11/13/21 08:38 Dose: 2.5 mg Documented by: GABRIEL Atorvastatin Calcium (Atorvastatin Calcium 40 Mg Tablet) 40 mg PO BEDTIME [facility] Last Admin: 11/16/21 22:44 Dose: 40 mg Documented by: SALEEM Dextrose (Dextrose 50 % 25 Gm/50 Ml Syringe) 25 gm IVPUSH Q15M PRN; Protocol PRN Reason: per Hypoglycemia Standing Ord. Fluticasone/Vilanterol (Fluticasone/Vilanterol 100/25 Blst.W.Dev) 1 puff INHALE RDAILY [facility] Last Admin: 11/17/21 08:06 Dose: Not Given Documented by: SAMRA Non-Admin Reason: Patient Asleep Glipizide (Glipizide Xl 2.5 Mg Tab.Er.24) 2.5 mg PO DAILY [facility] Last Admin: 11/17/21 08:22 Dose: 2.5 mg Documented by: JUAN CARLOS Glucose (Glucose Gel 15 Gm Gel..Gram.) 15 gm PO Q15M PRN; Protocol PRN Reason: per Hypoglycemia Standing Ord. Heparin Sodium (Porcine) (Heparin Sodium,Porcine 5,000 Unit/Ml Vial) 5,000 unit SUBCUT Q8H [facility] Last Admin: 11/17/21 08:22 Dose: 5,000 unit Documented by: JUAN CARLOS Insulin Human Lispro (Insulin Lispro 100 Unit/Ml 3 Ml Vial) 0 unit SUBCUT QIDACHS [facility]; Protocol Last Admin: 11/17/21 08:22 Dose: 2 unit Documented by: JUAN CARLOS Levothyroxine Sodium (Levothyroxine Sodium 200 Mcg Tablet) 200 mcg PO DAILY@0600 [facility] Last Admin: 11/17/21 06:41 Dose: 200 mcg Documented by: SALEEM Lorazepam (Lorazepam 0.5 Mg Tablet) 0.5 mg PO TID PRN PRN Reason: anxiety Last Admin: 11/16/21 17:14 Dose: 0.5 mg Documented by: JUAN CARLOS Oxycodone HCl (Oxycodone Hcl Immed Release 5 Mg Tablet) 5 mg PO BID PRN PRN Reason: pain- severe Last Admin: 11/17/21 01:26 Dose: 5 mg Documented by: SALEEM Torsemide (Torsemide 20 Mg Tablet) 20 mg PO DAILY [facility]; Protocol Last Admin: 11/17/21 08:22 Dose: 20 mg Documented by: JUAN CARLOS Labs CBC & Chem 7: 11/13/21 05:40 11/16/21 05:24 Labs: Laboratory Results - last 24 hr 11/16/21 11/16/21 11/16/21 11:44 16:46 20:32 POC Glucose 224 H 241 H 282 H 11/17/21 07:52 POC Glucose 170 H Assessment and Plan (1) Chronic pain syndrome: Status: Acute (2) COPD (chronic obstructive pulmonary disease): Status: Acute (3) Hypothyroidism: Status: Acute (4) Essential hypertension: Status: Acute (5) Diabetes mellitus: Status: Acute (6) Pure hypercholesterolemia: Status: Acute (7) Uremia of renal origin: Status: Acute (8) Acute hyperkalemia: Status: Acute (9) Urinary tract infection: Status: Acute Assessment and Plan: hospital d#8 76yo F with COPD, CHF, pernicious anemia, HTN, DM2, hypothyroidism presenting with 2 wk of progressive weakness and leg swelling and 1d of worsening dyspnea presented with hypothermia, MARJORIE with uremia/hyperK/lactic acidosis and admitted to ICU for emergency HD, stepped down to C on hospital d#2 # MARJORIE with metabolic acidosis and hyperkalemia - resolved with emergency hemodialysis x1 session and also given Kayexelate likely due to metformin - SCr 3.01->1.68->1.84->1.65 - started torsemide 20 mg daily on 11/16/21; recheck labs tomorrow - HD catheter removed # acute hypoxic respiratory failure - wean as tolerated; currently 98% on 2L # pulmonary edema/CHF exacerbation/yuudw-xm-tcvutcc HFpEF - dialyzed as above.? was on IV diuresis- held for increasing SCr, now improved. started torsemide as above; recheck BNP + BMP + Mg tomorrow # diarrhea - due to Kayexelate, resolved, rectal tube removed # UTI, cobian-sensitive Enterobacter cloacae - completed ceftriaxone x7d # DM2 - was hypoglycemic likely due to renal failure- restarted diet and hypoglycemia has resolved, blood sugar trending up to 200 range, was on metformin at home that has been discontinued - started glipizide XR # hypothyroidism - continue LT4 # COPD without acute exaerbation - ICS/LABA, prn LUCIA # VTE ppx - UFH # dispo - STR, awaiting placement, complicated by unvaccinated status Quality Stroke Does the patient have a stroke diagnosis?: No VTE Prior VTE?: No VTE Risk Level:: Medical - moderate - high VTE Device Contraindication: N/A - Device Ordered VTE Drug Contraindication: N/A - Med Ordered
--- NOTE | 2021-11-17 11:29 | P.PNNP_ITS ---
Subjective Subjective Date of Service: 11/17/21 Principal diagnosis: MARJORIE Interval history: Seen and examined, events noted Physical Exam Vital Signs: Vital Signs: Last Vital Signs Temp 97.2 F 11/17/21 08:00 Pulse 76 11/17/21 08:00 Resp 19 11/17/21 08:00 BP 149/69 H 11/17/21 08:00 Pulse Ox 98 11/17/21 08:00 BMI result Body Mass Index 49.3 Const: Other: Ill appearing. Responds to pain Lungs with rhonchi Hrt- Sinus yuri, No S3 or S4 Abd soft with BS Ns No myoclonus Ext-Erythema Objective Data Labs CBC & Chem 7: 11/13/21 05:40 11/16/21 05:24 Labs: Laboratory Results - last 24 hr 11/16/21 11/16/21 11/16/21 11:44 16:46 20:32 POC Glucose 224 H 241 H 282 H 11/17/21 07:52 POC Glucose 170 H Microbiology Microbiology Results: Microbiology 11/10/21 01:46 Blood - Venous Blood Culture - Final No growth after 5 days. 11/10/21 01:46 Blood - Venous Blood Culture - Final No growth after 5 days. 11/10/21 Unknown Urine Catheterized - Straight Catheter Urine Culture - Final Enterobacter cloacae complex Procedures Date of Service Date of Service: 11/17/21 Assessment & Plan Assessment and plan (1) Lactic acidosis: Status: Acute (2) Acute renal failure: Status: Acute (3) Acute hyperkalemia: Status: Acute Assessment and Plan: 1. MARJORIE: SCr stable and ? new BSL 2. CKD 3: ?? BSL SCr; last Scr 1.0 on EHR dates dack to 2018 3. HyperK: resolved 4. DM 5. VOl: imporved REC: cont torsemide 20 qd; avoid metformin; track UOP/renal func; try to get BSL SCr from PCP's office;d/c [place]; will need oupt f/u with renal (I will arrange) Time Spent With Patient Time: Total time spent is greater than 50% in coordination of care (as docume nted) at patient's floor/unit and/or counseling patient: Progress Note: Quality Stroke Does the patient have a stroke diagnosis?: No
[2021-11-17 11:41] LABS: Glucose, Whole Blood 230 mg/dL (60-115)
[2021-11-17] MEDS: LORazepam 0.5 MG TABLET PO ×2 (12:05→21:08)
[2021-11-17 16:09] LABS: Glucose, Whole Blood 241 mg/dL (60-115)
[2021-11-17 20:30] LABS: Glucose, Whole Blood 304 mg/dL (60-115)
[2021-11-17] MEDS: Atorvastatin Calcium 40 MG TABLET PO (21:08)
[2021-11-18] MEDS: oxyCODONE HCl Immed Release 5 MG TABLET PO ×2 (01:15→13:18)
[2021-11-18 03:13] VITALS: BP 127/58; PULSE 73; RESP 20; TEMP 37; O2SAT 92
[2021-11-18 06:03] LABS: Anion Gap 14 (12-20); Blood Urea Nitrogen 44 mg/dL (9-16); Calcium 7.7 mg/dL (8.4-10.2); Carbon Dioxide 35 mmol/L (22-29); Chloride 100 mmol/L (96-108); Creatinine Clr Calc Pharmacy 38.9; Estimated Glomerular Filt Rate 32; Glucose Random 222 mg/dL (60-115); Magnesium 1.7 mg/dL (1.6-2.6); Potassium 4.5 mmol/L (3.3-5.1); Sodium 144 mmol/L (135-145)
[2021-11-18] MEDS: Levothyroxine Sodium 200 MCG TABLET PO (06:04)
[2021-11-18 06:06] LABS: B Type Natriuretic Peptide 213 pg/mL (<100)
[2021-11-18 07:29] VITALS: BP 131/58; PULSE 70; RESP 18; TEMP 36.4; O2SAT 94
[2021-11-18 07:59] LABS: Glucose, Whole Blood 188 mg/dL (60-115)
[2021-11-18 08:11] VITALS: PULSE 72; RESP 18; O2SAT 94
[2021-11-18] MEDS: Fluticasone/Vilanterol 100/25 BLST.W.DEV 1 PUFF INHALE (08:11)
[2021-11-18] MEDS: Insulin Lispro 100 UNIT/ML 3 ML VIAL SUBCUT ×4 (08:50→21:00)
[2021-11-18] MEDS: glipiZIDE XL 2.5 MG TAB.ER.24 PO ×2 (08:50→21:01)
[2021-11-18] MEDS: Heparin Sodium,Porcine 5,000 UNIT/ML VIAL 5000 UNIT SUBCUT ×2 (08:50→17:18)
[2021-11-18] MEDS: Torsemide 20 MG TABLET PO (08:53)
[2021-11-18 11:03] LABS: Glucose, Whole Blood 320 mg/dL (60-115)
--- NOTE | 2021-11-18 11:16 | P.PNNP_ITS ---
Subjective Subjective Date of Service: 11/18/21 Principal diagnosis: MARJORIE Interval history: Seen and examined, events noted Physical Exam Vital Signs: Vital Signs: Last Vital Signs Temp 97.6 F 11/18/21 07:29 Pulse 72 11/18/21 08:11 Resp 18 11/18/21 08:11 BP 131/58 L 11/18/21 07:29 Pulse Ox 94 11/18/21 07:29 BMI result Body Mass Index 49.3 Const: General: cooperative, no acute distress and alert Orientation/consciousness: patient oriented x3 HENMT: Head: Yes normal to inspection Eyes: General: appearance normal, both eyes and all related structures Eyelids: Yes eyelids normal Conjunctivae: conjunctivae normal Pupils: Equal, round and reactive pupils present Neck: Neck: Yes normal visual inspection and Yes supple Chest: Chest palpation & inspection: normal inspection of the chest Resp: Effort & Inspection: normal respiratory effort Auscultation: clear to auscultation bilaterally Cardio: Rate: regular rate Rhythm: regular rhythm Heart sounds: S1 normal heart sound present, S2 normal heart sound present, no gallops, no murmurs and no rubs GI: Palpation (GI): Soft to palpation, nontender and Other GI palpation findings present (Non-distended) Auscultation: normal bowel sounds Neuro: General: patient oriented x3, no focal motor deficits and CN's II-XI intact bilaterally Cranial nerves: Yes Equal, round and reactive pupils present Cognition (Neuro): normal cognition Motor exam (neuro): 5/5 motor strength present throughout Sensory Exam: No Sensory deficit (Neuro) Extrem: General: Yes normal to inspection and Yes no pedal edema Psych: Appearance: grossly normal Affect: normal affect Objective Data Labs CBC & Chem 7: 11/13/21 05:40 11/18/21 05:19 Labs: Laboratory Results - last 24 hr 11/17/21 11/17/21 11/17/21 11:33 15:57 20:10 Sodium Potassium Chloride Carbon Dioxide Anion Gap BUN Creatinine Estim Creat Clear Calc Estimated GFR POC Glucose 230 H 241 H 304 H Random Glucose Calcium Magnesium B-Natriuretic Peptide 11/18/21 11/18/21 11/18/21 05:19 05:19 07:28 Sodium 144 Potassium 4.5 Chloride 100 Carbon Dioxide 35 H Anion Gap 14 BUN 44 H Creatinine 1.58 H Estim Creat Clear Calc 38.9 Estimated GFR 32 POC Glucose 188 H Random Glucose 222 H Calcium 7.7 L Magnesium 1.7 B-Natriuretic Peptide 213 H 11/18/21 10:58 Sodium Potassium Chloride Carbon Dioxide Anion Gap BUN Creatinine Estim Creat Clear Calc Estimated GFR POC Glucose 320 H Random Glucose Calcium Magnesium B-Natriuretic Peptide Microbiology Microbiology Results: Microbiology 11/10/21 01:46 Blood - Venous Blood Culture - Final No growth after 5 days. 11/10/21 01:46 Blood - Venous Blood Culture - Final No growth after 5 days. 11/10/21 Unknown Urine Catheterized - Straight Catheter Urine Culture - Final Enterobacter cloacae complex Procedures Date of Service Date of Service: 11/18/21 Assessment & Plan Assessment and plan (1) Lactic acidosis: Status: Acute (2) Acute renal failure: Status: Acute (3) Acute hyperkalemia: Status: Acute Assessment and Plan: 1. MARJORIE: SCr stable and ? new BSL 2. CKD 3: ?? BSL SCr; last Scr 1.0 on EHR dates k to 2018 3. HyperK: resolved 4. DM 5. VOl: imporved REC: no new recs; cont torsemide 20 qd; avoid metformin; track UOP/renal func; try to get BSL SCr from PCP's office;d/c francisco; will need oupt f/u with renal (I will arrange) Time Spent With Patient Time: Total time spent is greater than 50% in coordination of care (as documente d) at patient's floor/unit and/or counseling patient: Progress Note: Quality Stroke Does the patient have a stroke diagnosis?: No
--- NOTE | 2021-11-18 11:29 | MHC.CLN ---
NUTRITION ADDED 2 GRAM SODIUM TO DIET DUE TO KIDNEY FUNCTION. DIET=DIABETIC 2000 KCAL, 2 GRAM SODIUM.
--- NOTE | 2021-11-18 11:34 | HO.PM.IMPN ---
Subjective Subjective Date of Service: 11/18/21 Interval History: Complaining of urine leaking around Moyer catheter , refusing to remove Moyer since not ambulating, no history of urinary retention , denies shortness of breath no other acute issues overnight tolerating diet no nausea, no vomiting, no diarrhea. Review of Systems Review of Systems: Yes all other systems are reviewed and are negative Physical Exam Vital Signs: Vital Signs: Last Vital Signs Temp 97.6 F 11/18/21 07:29 Pulse 72 11/18/21 08:11 Resp 18 11/18/21 08:11 BP 131/58 L 11/18/21 07:29 Pulse Ox 94 11/18/21 07:29 BMI result Body Mass Index 49.3 Const: Other: Gen: Awake alert , in no acute distress HEENT: sclera anicteric, moist mucus membranes Neck: supple Lungs: diminished at bases bilaterally Heart: regular rate and rhythm, no murmurs : Moyer draining clear urine Abd: soft, non-tender, non-distended, obese Ext: no edema Skin: warm/well-perfused Neuro: alert and oriented x3, no focal findings Psych: appropriate affect ? Objective Data Active Medications Albuterol Sulfate (Albuterol Sulfate (0.083%) 2.5 Mg/3 Ml Vial.Neb) 2.5 mg INHALE Q2H PRN PRN Reason: shortness of breath/wheeze Last Admin: 11/13/21 08:38 Dose: 2.5 mg Documented by: GABRIEL Atorvastatin Calcium (Atorvastatin Calcium 40 Mg Tablet) 40 mg PO BEDTIME [facility] Last Admin: 11/17/21 21:08 Dose: 40 mg Documented by: CASTILScottie Dextrose (Dextrose 50 % 25 Gm/50 Ml Syringe) 25 gm IVPUSH Q15M PRN; Protocol PRN Reason: per Hypoglycemia Standing Ord. Fluticasone/Vilanterol (Fluticasone/Vilanterol 100/25 Blst.W.Dev) 1 puff INHALE RDAILY [facility] Last Admin: 11/18/21 08:11 Dose: 1 puff Documented by: WESLY Glipizide (Glipizide Xl 2.5 Mg Tab.Er.24) 2.5 mg PO DAILY [facility] Last Admin: 11/18/21 08:50 Dose: 2.5 mg Documented by: BRENDEN Glucose (Glucose Gel 15 Gm Gel..Gram.) 15 gm PO Q15M PRN; Protocol PRN Reason: per Hypoglycemia Standing Ord. Heparin Sodium (Porcine) (Heparin Sodium,Porcine 5,000 Unit/Ml Vial) 5,000 unit SUBCUT Q8H [facility] Last Admin: 11/18/21 08:50 Dose: 5,000 unit Documented by: BRENDEN Insulin Human Lispro (Insulin Lispro 100 Unit/Ml 3 Ml Vial) 0 unit SUBCUT QIDACHS [facility]; Protocol Last Admin: 11/18/21 08:50 Dose: 2 unit Documented by: BRENDEN Levothyroxine Sodium (Levothyroxine Sodium 200 Mcg Tablet) 200 mcg PO DAILY@0600 [facility] Last Admin: 11/18/21 06:04 Dose: 200 mcg Documented by: MO Lorazepam (Lorazepam 0.5 Mg Tablet) 0.5 mg PO TID PRN PRN Reason: anxiety Last Admin: 11/17/21 21:08 Dose: 0.5 mg Documented by: OM Oxycodone HCl (Oxycodone Hcl Immed Release 5 Mg Tablet) 5 mg PO BID PRN PRN Reason: pain- severe Last Admin: 11/18/21 01:15 Dose: 5 mg Documented by: MO Torsemide (Torsemide 20 Mg Tablet) 20 mg PO DAILY [facility]; Protocol Last Admin: 11/18/21 08:53 Dose: 20 mg Documented by: BRENDEN Labs CBC & Chem 7: 11/13/21 05:40 11/18/21 05:19 Labs: Laboratory Results - last 24 hr 11/17/21 11/17/21 11/17/21 11:33 15:57 20:10 Anion Gap Estim Creat Clear Calc Estimated GFR POC Glucose 230 H 241 H 304 H Random Glucose Calcium Magnesium B-Natriuretic Peptide 11/18/21 11/18/21 11/18/21 05:19 05:19 07:28 Anion Gap 14 Estim Creat Clear Calc 38.9 Estimated GFR 32 POC Glucose 188 H Random Glucose 222 H Calcium 7.7 L Magnesium 1.7 B-Natriuretic Peptide 213 H 11/18/21 10:58 Anion Gap Estim Creat Clear Calc Estimated GFR POC Glucose 320 H Random Glucose Calcium Magnesium B-Natriuretic Peptide Assessment and Plan (1) Chronic pain syndrome: Status: Acute (2) COPD (chronic obstructive pulmonary disease): Status: Acute (3) Hypothyroidism: Status: Acute (4) Essential hypertension: Status: Acute (5) Diabetes mellitus: Status: Acute (6) Pure hypercholesterolemia: Status: Acute (7) Uremia of renal origin: Status: Acute (8) Acute hyperkalemia: Status: Acute (9) Urinary tract infection: Status: Acute Assessment and Plan: 76yo F with COPD, CHF, pernicious anemia, HTN, DM2, hypothyroidism presenting with 2 wk of progressive weakness and leg swelling and 1d of worsening dyspnea presented with hypothermia, MARJORIE with uremia/hyperK/lactic acidosis and admitted to ICU for emergency HD, stepped down to [facility] on hospital d#2 # MARJORIE with metabolic acidosis and hyperkalemia - resolved with emergency hemodialysis x1 session and also given Kayexelate likely due to metformin - SCr 3.01->1.68->1.84->1.65 - cont.torsemide 20 mg daily on 11/16/21; creat improved to 1.58 - HD catheter removed # acute hypoxic respiratory failure - wean as tolerated; currently 98% on 2L # pulmonary edema/CHF exacerbation/[id number] HFpEF - dialyzed as above.? was on IV diuresis- held for increasing SCr, now improved. started torsemide as above; BNP improved, magnesium stable at 1.7 and creatinine is trending down # diarrhea - due to Kayexelate, resolved, rectal tube removed # UTI, cobian-sensitive Enterobacter cloacae - completed ceftriaxone x7d # DM2 - was hypoglycemic likely due to renal failure- restarted diet and hypoglycemia has resolved, blood sugar trending up to 200 range, was on metformin at home that has been discontinued - started glipizide XR will increase dose to 5 mg home dose 10 mg b.i.d. # hypothyroidism - continue LT4 # COPD without acute exaerbation - ICS/LABA, prn LUCIA # VTE ppx - UFH # dispo - STR, awaiting placement, complicated by unvaccinated status Quality Stroke Does the patient have a stroke diagnosis?: No VTE Prior VTE?: No VTE Risk Level:: Medical - moderate - high VTE Device Contraindication: N/A - Device Ordered VTE Drug Contraindication: N/A - Med Ordered
--- NOTE | 2021-11-18 11:44 | MHC.CM.PN ---
Broad SNF search is ongoing and CM will follow.
[2021-11-18 12:00] VITALS: BP 155/84; PULSE 78; RESP 20; TEMP 36.2; O2SAT 97
[2021-11-18] MEDS: Albuterol Sulfate (0.083%) 2.5 MG/3 ML VIAL.NEB INHALE (13:43)
--- NOTE | 2021-11-18 14:54 | MHC.CM.PN ---
Patient has been accepted at [facility] and will dc there tomorrow at 11 AM, once the bed becomes available, via [facility].IMM addressed with Patient and original has been given to her and a copy has been placed on the chart.Patient is aware of and in agreement with the dc plan.
[2021-11-18 16:00] VITALS: BP 153/67; PULSE 69; RESP 18; TEMP 37; O2SAT 98
[2021-11-18 16:32] LABS: Glucose, Whole Blood 252 mg/dL (60-115)
[2021-11-18] MEDS: LORazepam 0.5 MG TABLET PO (17:26)
[2021-11-18 18:57] VITALS: BP 162/72; PULSE 64; RESP 18; TEMP 36.4; O2SAT 98
[2021-11-18 20:15] LABS: Glucose, Whole Blood 262 mg/dL (60-115)
[2021-11-18] MEDS: Atorvastatin Calcium 40 MG TABLET PO (21:01)
[2021-11-18 22:52] LABS: COVID-19 Test Negative (Negative); IDNOW Serial# 55D5AD1C
[2021-11-19] VITALS: BP 173/74; PULSE 60; RESP 14; TEMP 36.1; O2SAT 100
[2021-11-19] MEDS: Albuterol Sulfate (0.083%) 2.5 MG/3 ML VIAL.NEB INHALE ×2 (00:16→06:32)
[2021-11-19 00:19] VITALS: PULSE 68; RESP 18; O2SAT 99
[2021-11-19] MEDS: Heparin Sodium,Porcine 5,000 UNIT/ML VIAL 5000 UNIT SUBCUT ×2 (00:37→07:28)
[2021-11-19] MEDS: oxyCODONE HCl Immed Release 5 MG TABLET PO (01:19)
[2021-11-19 03:50] VITALS: BP 139/62; PULSE 65; RESP 16; TEMP 36.2; O2SAT 98
[2021-11-19 06:00] VITALS: BMI 48.3
[2021-11-19 06:32] VITALS: PULSE 70; RESP 16; O2SAT 98
[2021-11-19] MEDS: LORazepam 0.5 MG TABLET PO (07:24)
[2021-11-19] MEDS: Torsemide 20 MG TABLET PO (07:24)
[2021-11-19] MEDS: glipiZIDE XL 2.5 MG TAB.ER.24 PO (07:24)
[2021-11-19 07:38] VITALS: BP 155/68; PULSE 73; RESP 19; TEMP 36.3; O2SAT 96
[2021-11-19 07:39] LABS: Glucose, Whole Blood 142 mg/dL (60-115)
[2021-11-19] MEDS: Fluticasone/Vilanterol 100/25 BLST.W.DEV 1 PUFF INHALE (08:19)
--- NOTE | 2021-11-19 08:24 | MHC.CM.PN ---
Per MD, Patient has been medically cleared for dc to [facility]/SNF today. Patient will dc to [facility] today at 11 AM. CM has left a detailed message for Patient's Son/Robbie at [phone].IMM addressed yesterday.
--- NOTE | 2021-11-19 09:45 | P.DS_ITS ---
DS: Providers Provider Date of Service: 11/19/21 Date of admission: 11/10/21 14:16 Primary care physician: Unknown Physician DS: Diagnosis Discharge Diagnosis (1) Chronic pain syndrome: Status: Acute (2) COPD (chronic obstructive pulmonary disease): Status: Acute (3) Hypothyroidism: Status: Acute (4) Essential hypertension: Status: Acute (5) Diabetes mellitus: Status: Acute (6) Pure hypercholesterolemia: Status: Acute (7) Uremia of renal origin: Status: Acute (8) Acute hyperkalemia: Status: Acute (9) Urinary tract infection: Status: Acute DS: Summary Hospital Course Hospital Course: Chief Complaint:? weakness 76-year-old morbidly obese female complaining of weakness noted to be in a significant sinus bradycardia with a wide QRS complex duration 130 milliseconds QT prolongation 490 milliseconds with symptomatic sinus bradycardia very weak very sallow and noted to be uremic with a BUN of 80 creatinine of 3 pH of 7.1 potassium of 8.4 and then we began to treat the potassium ?unknown type 2 diabetic and treated hypothyroidism with underlying COPD pernicious anemia and hyperlipidemia because the because she remained virtually an uric with persistent metabolic acidosis but improving potassium down to 7.0 but still dangerous course that required short-term dialysis was chosen patient agreed after having explained and I proceeded to place a triple-lumen 13 Georgian dialysis catheter via the right internal jugular vein without complication?bedside echo shows fairly preserved left ventricular systolic reserve and CT scan of the chest was really Tinel consistent with interstitial pulmonary edema Hospital course 76yo F with COPD, CHF, pernicious anemia, HTN, DM2, hypothyroidism presenting with 2 wk of progressive weakness and leg swelling and 1d of worsening dyspnea workup in the emergency room revealed hypothermia, MARJORIE with uremia/hyperK/lactic acidosis and admitted to ICU for emergency HD, stepped down to [facility] [place] hospital d#2 # MARJORIE with metabolic acidosis and hyperkalemia, patient treated with emergency hemodialysis x1 and was given Kayexalate serum creatinine improved SCr 3.01->1.68->1.84->1.65.>1.58, patient started on torsemide 20 mg daily creatinine remains stable, hemodialysis catheter has been removed recommend to follow BMP closely and outpatient follow-up with Dr. Nichole, metformin disco ntinue likely contributing to above symptoms # acute hypoxic respiratory failure resolved likely due to pulmonary edema wean oxygen as tolerated; currently 98% on 2L # pulmonary edema/[id number]-zu-yqpveig HFpEF patient was dialyzed as above and was treated with IV diuretics now on torsemide 20 mg daily BNP improved creatinine is trending down continue current treatment And follow labs, removed Moyer catheter once patient is more ambulatory. # diarrhea due to Kayexelate, resolved, rectal tube removed # UTI, cobian-sensitive Enterobacter cloacae, completed ceftriaxone x7d # DM2 was hypoglycemic likely due to renal failure- restarted diet and hypoglycemia has resolved, blood sugar trending up to 200 range, was on metformin at home that has been discontinued, started on glipizide XR 5 mg daily, home dose glipizide 10 mg b.i.d. can gradually increase dose of glipizide monitor blood sugar closely, strongly recommend diabetic diet and weight loss # hypothyroidism continue levothyroxine # COPD without acute exaerbation continue home inhalers Patient being discharged to rehab facility for less than 30 days Time Spent with Patient Time attestation: Total time spent providing and/or coordinating discharge services: Discharge coordination time: Greater than 30 minutes Quality: Stroke Does the patient have a stroke diagnosis?: No Physical Exam Vital Signs: Vital Signs: Last Vital Signs Temp 97.4 F 11/19/21 07:38 Pulse 73 11/19/21 07:38 Resp 19 11/19/21 07:38 BP 155/68 H 11/19/21 07:38 Pulse Ox 96 11/19/21 07:38 BMI result Body Mass Index 48.3 Const: Other: Gen:? Awake alert , in no acute distress HEENT: sclera anicteric, moist mucus membranes Neck: supple Lungs: diminished at bases bilaterally Heart: regular rate and rhythm, no murmurs : Moyer draining clear urine Abd: soft, non-tender, non-distended, obese Ext: no edema Skin: warm/well-perfused, dry scaly skin lower extremity Neuro: alert and oriented x3, no focal findings Psych: appropriate affect ? DS: Data Data Completed and Pending Labs on day of discharge: Laboratory Results - last 24 hr 11/18/21 11/18/21 11/18/21 10:58 16:27 18:59 POC Glucose 320 H 252 H 262 H COVID-19 (CAROLYN) COVID-19 Clin Com 11/18/21 11/19/21 22:16 07:17 POC Glucose 142 H COVID-19 (CAROLYN) Negative COVID-19 Clin Com See Note Discharge Plan Discharge Patient Disposition: Xfer SNF Discharge Diagnosis: Acute Kidney injury with metabolic acidosis Hyperkalemia Acute hypoxic respiratory failure Acute on chronic congestive heart failure with preserved EF Urinary tract infection Diarrhea Referrals: [facility] [Outside] - 1 Week Physician,Unknown J [Primary Care Provider] - 1 Week Discharge Medications: New torsemide 20 mg Tablet 20 mg PO DAILY Qty: 30 RF: 0 glipizide 5 mg tablet extended release 24 hr 5 mg PO DAILY Qty: 30 RF: 0 Continued fluticasone propion-salmeterol [Advair Diskus] 250-50 mcg/dose blister with device 1 inh inhalation BID 30 Days Qty: 60 RF: 6 atorvastatin 40 mg tablet 40 mg PO BEDTIME 90 Days Qty: 90 RF: 3 levothyroxine 200 mcg tablet 200 mcg PO DAILY Qty: 60 RF: 3 oxycodone 5 mg tablet 5 mg PO BID PRN (Reason: pain) 30 Days Qty: 60 RF: 0 gemfibrozil 600 mg tablet 600 mg PO BID Qty: 180 RF: 1 albuterol sulfate [ProAir HFA] 90 mcg/actuation HFA aerosol inhaler 2 inh inhalation Q4-6H PRN (Reason: shortness of breath or wheezing) 30 Days Qty: 6.7 RF: 0 lorazepam 0.5 mg tablet 0.5 mg PO TID PRN (Reason: anxiety) 30 Days Qty: 90 RF: 0 Discontinued glipizide 5 mg tablet 10 mg PO BID Qty: 360 RF: 2 amlodipine 5 mg tablet 5 mg PO DAILY Qty: 90 RF: 0 metformin 500 mg tablet 500 mg PO .five times a day 30 Days Qty: 150 RF: 11 Discharge Orders: Discharge Order (Routine); Ordered 11/19/21 Ordered By: Juliane Ann Diet: diabetic diet Activity on Discharge: As tolerated Stand Alone Forms: Patient Portal Discharge page Care Plan Goals: Acute kidney injury resolved follow BMP closely outpatient follow-up with Nephrology, follow diabetic diet , metformin discontinued. check bmp on 11/21/21, resume amlodipine if noted to have elevated blood pressure Health Concerns: Diabetes mellitus, congestive heart failure preserved EF, hypothyroidism, obesity take all medications as prescribed Plan of Treatment: Close outpatient follow-up with primary care physician in 1 week and with Nephrology in 1 week Assessment: per discharge summary
== END 2021-11-19 11:00 | disposition skilled nursing facility (03) | DRG 682 ==
LOC: HO.ED 06:42 → HO.EDOVER 16:00 → HO.ICU 18:10 → HO.IMC 11-12 00:09 → HO.S3 11-15 16:14
PROVIDERS: Emergency Medicine; Family Medicine; Physician Assistant; Admitting Provider Internal Medicine Cardiovascular Disease; Emergency Provider Emergency Medicine Emergency Medical Services; Visit Provider Hospitalist
DX: N17.9 Acute kidney failure, unspecified (principal); J96.01 Acute respiratory failure with hypoxia; I50.33 Acute on chronic diastolic (congestive) heart failure; Z68.42 Body mass index [BMI] 45.0-49.9, adult; E87.2 Acidosis; N39.0 Urinary tract infection, site not specified; K52.1 Toxic gastroenteritis and colitis; Z87.891 Personal history of nicotine dependence; E66.01 Morbid (severe) obesity due to excess calories; E78.5 Hyperlipidemia, unspecified; E03.9 Hypothyroidism, unspecified; E87.5 Hyperkalemia; D51.0 Vitamin B12 deficiency anemia due to intrinsic factor deficiency; N18.30 Chronic kidney disease, stage 3 unspecified; E11.22 Type 2 diabetes mellitus with diabetic chronic kidney disease; R94.31 Abnormal electrocardiogram [ECG] [EKG]; J44.9 Chronic obstructive pulmonary disease, unspecified; E11.649 Type 2 diabetes mellitus with hypoglycemia without coma; T50.3X5A Adverse effect of electrolytic, caloric and water-balance agents, initial encounter; Z23 Encounter for immunization; Z20.822 Contact with and (suspected) exposure to COVID-19; Z88.0 Allergy status to penicillin; Z88.6 Allergy status to analgesic agent; Z79.51 Long term (current) use of inhaled steroids; Z79.890 Hormone replacement therapy; Z79.899 Other long term (current) drug therapy
CPT/HCPCS: 36415; 71045; 71250; 74176; 80048; 80053; 80143; 80179; 80307; 80320; 81001; 82550; 82607; 82746; 82803; 82947; 83605; 83735; 83880; 84100; 84443; 84484; 85025; 85027; 85652; 87040; 87086; 87088; 87186; 87493; 87635; 90686; 90999; 93005; 93306; 94640; 96365; 96375; 96376; 97162; 97530; 99285; 99291; 99292; J0610; J0696; J1940; J2250

== ENCOUNTER 2022-01-17 11:07 | Outpatient (REF) | payer MEDICARE, MEDICAID, SELFPAY ==
[2022-01-17 13:44] LABS: MANUAL DIFF FLAG NO
[2022-01-17 13:56] LABS: Basophils Absolute Auto 0.1 X10*3/uL (0.0-0.2); Basophils Percent Auto 0.9 % (0-2); Eosinophils Absolute Auto 0.2 X10*3/uL (0.0-0.4); Eosinophils Percent Auto 2.6 % (0-4); Hematocrit 33.9 % (37.0-47.0); Hemoglobin 9.9 g/dl (12.0-16.0); Imm Gran Abs Auto 0.07 X10*3/uL (0.00-0.03); Imm Gran Pct Auto 1.2 % (0.0-0.4); Lymphocytes Absolute Auto 0.6 X10*3/uL (1.2-4.9); Lymphocytes Percent Auto 10.6 % (20-40); Mean Corpuscular HGB Conc 29.2 g/dl (31.0-35.0); Mean Corpuscular Hemoglobin 28.4 pg (27.0-33.0); Mean Corpuscular Volume 97.1 fL (80.0-98.0); Monocytes Absolute Auto 0.4 X10*3/uL (0.1-1.2); Monocytes Percent Auto 6.9 % (2-11); Neutrophils Absolute Auto 4.5 x10*3/uL (2.0-8.3); Neutrophils Percent Auto 77.8 % (45-73); Platelet Count 339 X10*3/uL (160-400); Red Blood Count 3.49 X10*6/uL (4.20-5.50); Red Cell Distribution Width 13.2 % (11.0-16.0); White Blood Count 5.8 X10*3/uL (4.8-10.8)
== END 2022-01-17 11:08 | disposition home or self-care (01) ==
LOC: HO.HMGCLNP 11:07
PROVIDERS: Visit Provider Physician Assistant
DX: E11.9 Type 2 diabetes mellitus without complications (principal)
CPT/HCPCS: 80053; 80061; 83036; 84443; 85025

== ENCOUNTER 2023-12-09 12:23 | Outpatient (AMB) | payer MEDICARE, MEDICAID, SELFPAY ==
--- NOTE | 2023-12-09 12:23 | A.OFFPC_ITS ---
Intake Visit Reasons: med refill home bound copd Intake Note: Telephone visit home bound for med review, COPD follow up Latex Caster Required: No Allergies ibuprofen [From Motrin] Allergy (Unknown, Verified 12/09/23 12:38) swelling codeine [CODEINE] Adverse Reaction (Unknown, Verified 12/09/23 12:38) SLEEPY Medication List - Last Reconciled 12/09/23 by Neida Soto MD amlodipine 5 mg PO DAILY 90 days atorvastatin 40 mg PO BEDTIME 90 days blood sugar diagnostic (Accu-Chek Odilia Plus test strips) Use 1 test strip once a day blood sugar diagnostic (Accu-Chek Guide test strips) Use 1 test strip once a day duloxetine (Cymbalta) 20 mg PO DAILY 90 days fluticasone propion-salmeterol 250-50 mcg/dose (Advair Diskus) 1 inh inhalation BID 30 days gemfibrozil 600 mg PO BID 90 days glipizide ER 5 mg PO DAILY insulin glargine (Basaglar KwikPen U-100 Insulin) 15 units (0.15 mL) subcut QAM 90 days insulin syringe-needle U-100 (BD Insulin Syringe Ultra-Fine) Use 1 needle once a day lancets (Accu-Chek Softclix Lancets) Use 1 lancet once a day levothyroxine 200 mcg PO DAILY 90 days lorazepam 0.5 mg PO TID PRN 30 days miscellaneous medical supply 1 ea miscellaneous DAILY miscellaneous medical supply 1 ea miscellaneous DAILY oxycodone 5 mg PO BID PRN 30 days pen needle, diabetic (1st Tier Unifine Pentips) Use 1 pen needle once a day Ventolin HFA 90 mcg/actuation (albuterol sulfate) 2 puffs inhalation Q6H PRN 30 days NS Tobacco use date assessed: 12/09/23 Fall risk assessment: No Falls in past year Last assessed Fall Risk: 12/09/23 Dental Screening Dental Screen Date: 12/09/23 Did you have a dental visit in the last 12 months?: No Did you have a dental problem in the last 6 months where you did not have access to dental care?: No Was dental information given to patient?: Patient declined HPI HPI Comments History of Present Illness Details This is a 78-year-old female with diabetes mellitus type 2 on long-term current use of insulin, hypertension, pure hypercholesterolemia, hypothyroidism, congestive heart failure and COPD on oxygen that has tele health visit by phone because she can not afford a phone with a camera for a video call and she refused to come to the office because she has urinary incontinence and is convinced that she will urinate while in the office and that will be embarrassing for her. I suggest diapers and she said she can not use it because she has thin thighs. She has not been in the office for 2 years because she said that she has COPD and can not use a mask but then the mask was optional and still she can not come and now is due to her incontinence. She has not been compliant with her blood work or her appointments. She said that her blood pressure and blood glucose are well control with her medications. She was on metformin in the past but was discontinue in the hospital due to low GFR in which I order multiple times labs that were not done. She is asking for Anirudh to go to her house and do the blood work because she can not go out due to her multiple conditions. I will order lipid panel and TSH. I will refer her to pulmonology for her COPD and her oxygen management. Last echocardiogram was 2021 showing a normal ejection fraction and severe pulmonary hypertension. She does not use diuretics anymore because as per patient she does not need them. She does have chronic low back pain due to lumbar degenerative disc disease and has been on opiates for many years. I advised her the importance of being seen at least once a year in the office because of all her conditions and because all the medications that she takes including controlled substances. I told her that she has to make an appointment with me to see her in person or I will not be able to prescribe her medications. [facility] Medical History (Updated 12/09/23 @ 19:12 by Neida Soto MD) MARJORIE (acute kidney injury) Left bundle branch block Morbid obesity Chronic pain syndrome Anxiety Pernicious anemia COPD (chronic obstructive pulmonary disease) CHF (congestive heart failure) Hypothyroidism Essential hypertension Diabetes mellitus Pure hypercholesterolemia Surgical History H/O left knee surgery Deficient knowledge of leg surgery History of tonsillectomy and adenoidectomy History of appendectomy Family History (Updated 12/09/23 @ 12:26 by MICHAEL Wiggins) Father CVD (cardiovascular disease) Mother No problems noted. Family/Other FH: mental illness Social History Household Members: Family and Children Housing: House Do you presently have visiting nurse or other home services: No Alcohol intake: unknown Patient Tobacco Use Status: Former Tobacco user Tobacco use type: Cigarette e-Cigarette/Vaping Use: Never Used Second Hand Smoke Exposure: No service: No Current occupational status: disabled Cognitive needs: Yes Hearing needs: No Vision needs: No Questionnaire PHQ-9 Over the last 2 weeks, how often have you been bothered by any of the following problems? 1. Little interest or pleasure in doing things: not at all 2. Feeling down, depressed, or hopeless: not at all 3. Trouble falling or staying asleep, or sleeping too much: not at all 4. Feeling tired or having little energy: not at all 5. Poor appetite or overeating: not at all 6. Feeling bad about yourself - or that you are a failure or have let yourself or your family down: not at all 7. Trouble concentrating on things, such as reading the newspaper or watching television: not at all 8. Moving or speaking so slowly that other people could have noticed. Or the opp osite - being so fidgety or restless that you have been moving around a lot more than usual: not at all 9. Thoughts that you would be better off or of hurting yourself in some way: not at all Total score: 0 Depression Screening Interpretation: Negative Depression Screening Done: Yes 89187 - PHQ-9 Billing: Yes Source: Developed by Drs. Valeriano Max, Tianna Reynolds, Glenroy Parra and colleagues, with an educational alexa from [employer]. Thrive Questionnaire Date Thrive assessed: 12/09/23 I am a: Patient What is your living situation today?: I have a steady place to live Within the past 12 months, did the food you bought not last and you didn't have the money to get more?: Never true Within the past 12 months, did you worry whether your food would run out before you got money to buy more?: Never true Do you have trouble paying for medicines?: No Do you have trouble getting transportation to medical appointments?: No Do you have trouble paying your heating and electricity bill?: No Do you have trouble taking care of your child, family member or friend?: No Do you have trouble with day-to-day activities such as bathing, preparing meals, shopping, managing finances, etc.?: Yes Are you currently unemployed and looking for a job?: No Are you interested in more education?: No Please select the resources that you would like help with: None Currently or been in a relationship where the following occur: no concerns reported THRIVE Score: 0 AUDIT C Alcohol Use Questionnaire (AUDIT-C) 1. How often do you have a drink containing alcohol?: Never Total Score: 0 ARGELIA-7 AMB Questionnaire ARGELIA-7 Date ARGELIA - 7 assessed: 12/09/23 Feeling nervous, anxious, or on edge: 1 = Several days Not being able to stop or control worryin = Not at all Worrying too much about different things: 2 = More than half the days Trouble relaxin = Not at all Being so restless that it is hard to sit still: 0 = Not at all Becoming easily annoyed or irritable: 0 = Not at all Feeling afraid as if something awful might happen: 1 = Several days Total ARGELIA-7 score (0-4 normal; 5-9 mild; 10-14 moderate; 15-21 severe): 4 Source: Developed by Drs. Valeriano Max, Tianna Reynolds, Glenroy Parra and colleagues, with an educational alexa from [employer]. ARGELIA-7 Assessment Billing ARGELIA-7 Assessment Tool: ARGELIA-7 Assessment 54685 Review of Systems Const All systems reviewed & are unremarkable except as noted in HPI and below Eyes Reports no additional complaints, Denies change in vision and Denies other visual disturbances Card Denies chest pain at rest, Denies chest pain with activity, Denies edema, Denies irregular heart rhythm, Denies claudication, Reports dyspnea, Reports dyspnea on exertion, Denies orthopnea, Denies paroxysmal nocturnal dyspnea and Denies slow heart rate Resp Denies cough, Reports dyspnea and Reports dyspnea on exertion GI Denies abdominal pain, Denies change in bowel habits, Denies excessive flatus, Denies nausea and Denies vomiting Denies urinary incontinence, Denies urinary hesitancy and Denies urinary urgency Musc Denies abnormal gait, Denies atrophy, Denies deformity and Denies limited range of motion Skin/Breast Denies bleeding lesions, Denies changing lesions and Denies rash Neuro Denies abnormal gait, Denies behavioral changes, Denies confusion and Denies lack of coordination Psych Denies behavioral changes and Denies confusion Physical exam (Primary Care) Tobacco/Smoking Status: Tobacco use Status Tobacco use date assessed 12/09/23 12/09/23 12:27 Patient Tobacco Use Status Former Tobacco user 12/09/23 12:27 Tobacco use type Cigarette 12/09/23 12:27 e-Cigarette/Vaping Use Never Used 12/09/23 12:27 PHQ-9: PHQ-9 Score PHQ-9: Total score 0 12/09/23 12:42 Depression Screening Interpretation: Negative Thrive Assessment: Date of Thrive Assessment Date Thrive assessed 12/09/23 12/09/23 12:27 Currently or been in a relationship where the following occur: no concerns reported Const General: No confusion Orientation/consciousness: No confusion Neuro General: No confusion Telehealth Telehealth Location of provider rendering services: practice address Location of patient: address on file Patient Identification confirmed using: Name, : Yes Telehealth method: voice only Patient verbally consented to treatment: Yes Patient verbally consented to billing insurance company: Yes Patient informed of any privacy concerns related to visit: Yes Minutes spent on Phone/Video with Pt.: 22 Assessment and Plan Assessment & Plan (1) Diabetes mellitus: Code(s): E11.9 - Type 2 diabetes mellitus without complications Qualifiers: Diabetes mellitus type: type 2 Diabetes mellitus penitentiary insulin use: without penitentiary use Diabetes mellitus complication status: without complication Qualified Code(s): E11.9 - Type 2 diabetes mellitus without complications Plan: Continue insulin. Labs ordered. A1c goal is equal or less than 7%. (2) CHF (congestive heart failure): Code(s): I50.9 - Heart failure, unspecified Qualifiers: Heart failure type: diastolic Heart failure chronicity: chronic Qualified Code(s): I50.32 - Chronic diastolic (congestive) heart failure Plan: The goal is to not gain 5 lb in a week. Keep blood pressure well control. (3) COPD (chronic obstructive pulmonary disease): Code(s): J44.9 - Chronic obstructive pulmonary disease, unspecified Qualifiers: COPD type: emphysema Emphysema type: centrilobular Qualified Code(s): J43.2 - Centrilobular emphysema Plan: Continue Advair. Referred to pulmonology for further evaluation and management. Continue oxygen as needed. (4) Hypothyroidism: Code(s): E03.9 - Hypothyroidism, unspecified Qualifiers: Hypothyroidism type: unspecified Qualified Code(s): E03.9 - Hypothyroidism, unspecified Plan: Continue levothyroxine. Monitor TSH. (5) Pure hypercholesterolemia: Code(s): E78.00 - Pure hypercholesterolemia, unspecified Plan: Continue statins. Repeat lipid panel. LDL goal should be less than 70. (6) Lumbar degenerative disc disease: Code(s): M51.36 - Other intervertebral disc degeneration, lumbar region Plan: Needs to renew pain management contract. Continue oxycodone as needed for pain. (7) Essential hypertension: Code(s): I10 - Essential (primary) hypertension Plan: Continue amlodipine. Blood pressure goal is equal or less than 130/80. Orders: Orders Lipid Panel Today E78.5 - Hyperlipidemia, unspecified Microalbumin, Random (w Creat) Today E11.9 - Type 2 diabetes mellitus without complications Vitamin D 25-OH Total Today E55.9 - Vitamin D deficiency, unspecified Complete Blood Count Auto Diff Today D64.9 - Anemia, unspecified IRON PROFILE Today D64.9 - Anemia, unspecified Thyroid Stimulating Hormone Today E03.9 - Hypothyroidism, unspecified Hemoglobin A1c Today E11.40 - Type 2 diabetes mellitus with diabetic neuropathy, unspecified NT-proBNP Today I50.9 - Heart failure, unspecified Comprehensive [place]. Panel Fast Today E11.9 - Type 2 diabetes mellitus without complications Vitamin B12 and Folate Today E53.8 - Deficiency of other specified B group vitamins Referrals Pulmonology Referral J44.9 - Chronic obstructive pulmonary disease, unspecified Coding Level of Care Code Tele Est Pt Level 4 (11386) Diagnoses Type 2 diabetes mellitus without complication, without long-term current use of insulin E11.9 Diabetes mellitus type: type 2 Diabetes mellitus ocean transportation intermediary insulin use: without ocean transportation intermediary use Diabetes mellitus complication status: without complication Chronic diastolic congestive heart failure I50.32 Heart failure type: diastolic Heart failure chronicity: chronic Centrilobular emphysema J43.2 COPD type: emphysema Emphysema type: centrilobular Hypothyroidism, unspecified type E03.9 Hypothyroidism type: unspecified Pure hypercholesterolemia E78.00 Lumbar degenerative disc disease M51.36 Essential hypertension I10 Additional Codes ARGELIA-7 Assessment Billing - ARGELIA-7 Assessment Tool: ARGELIA-7 Assessment [id number] ([id number]) Time Spent (min) 22
== END 2023-12-09 13:41 | disposition home or self-care (01) ==
LOC: HO.HMGH 12:23
PROVIDERS: PCP Internal Medicine; Visit Provider Internal Medicine
DX: E11.9 Type 2 diabetes mellitus without complications (principal); I11.0 Hypertensive heart disease with heart failure; I50.32 Chronic diastolic (congestive) heart failure; J43.2 Centrilobular emphysema; E03.9 Hypothyroidism, unspecified; E78.00 Pure hypercholesterolemia, unspecified; M51.36 Other intervertebral disc degeneration, lumbar region
CPT/HCPCS: 99443

== ENCOUNTER 2024-06-19 05:49 | Inpatient (IN) | payer MEDICARE, SELFPAY ==
[2024-06-19] VITALS (11 sets, daily range): BP systolic 130–179; BP diastolic 49–89; PULSE 66–98; RESP 20–28; TEMP 36.6–36.8; O2SAT 94–100; BMI 36.6
--- NOTE | 2024-06-19 | ECG_ITS ---
Test Reason : Hyperkalemia Blood Pressure : / mmHG Vent. Rate : 088 BPM Atrial Rate : 000 BPM P-R Int : 000 ms QRS Dur : 110 ms QT Int : 362 ms P-R-T Axes : 000 -41 100 degrees QTc Int : 438 ms Atrial fibrillation Left axis deviation Left ventricular hypertrophy with repolarization abnormality ( R in aVL , [place] product ) Abnormal ECG When compared with ECG of 19-JUN-2024 05:58, Atrial fibrillation has replaced Sinus rhythm Referred By: Opal Torres Electronically Signed By:SERGIO SAWYER
--- NOTE | ~2024-06-19 | XR_ITS ---
EXAMINATION: XR CHEST CLINICAL INFORMATION: Shortness of breath, COPD. COMPARISON: Chest radiograph 11/10/2021 TECHNIQUE: Frontal view of the chest was obtained. FINDINGS: Low lung volumes are present. Mild blunting of the right costophrenic sulcus is visualized. No focal pulmonary consolidation identified. Mild diffuse vascular indistinctness noted. Moderate aortic calcific atherosclerosis. XR/XR chest 1V IMPRESSION: *Small right pleural effusion. *Findings suspicious for pulmonary vascular congestion. *Low lung volumes. Electronically signed by: Angus Robles MD 06/19/2024 07:02 AM EDT
--- NOTE | ~2024-06-19 | CT_ITS ---
EXAMINATION: CT CHEST WITHOUT CONTRAST CLINICAL INFORMATION: Shortness of breath, evaluate for pneumonia. COMPARISON: Chest x-ray 06/19/2024 TECHNIQUE: Multidetector volumetric CT imaging of the chest was done. Axial MIP volume rendering provided. Sagittal and coronal reformatted images were obtained. This CT examination was performed using dose optimization techniques as appropriate, variously including the following: *Automated exposure control *Adjustment of mA and/or kV according to patient size (this includes techniques or standardized protocols for targeted exams where dose is matched to indication/reason for exam; i.e. extremities or head) *Use of iterative reconstruction technique DLP: 405 mGy-cm FINDINGS: PHYSICIST LIGHT AND OPTICS: Well-inflated lungs. LUNGS: There is mild emphysematous lungs with groundglass patchy opacities seen in both upper lobes. There are patchy ill-defined opacities seen in both upper lobes posterior segments and airspace consolidation right upper lobe posterior segment. There is bilateral pleural effusions right greater than left with dependent atelectasis and/or infiltrates. MEDIASTINUM: Ventral trachea and the bronchi appears widely patent with a soft tissue density along the posterior trachea question debris. Heart size is enlarged with moderate mitral valve calcification. There is no pericardial effusion. Small reaction lymph nodes in the mediastinum with the largest pretracheal lymph node measuring 8 mm short axis image 19/3. CORONARY ARTERY CALCIFICATION: There is moderate coronary artery calcifications. PLEURA: There are small bilateral pleural effusions with right lower lobe consolidation/atelectasis. There is loculated effusion suspected in upper right major fissure AXILLA: There are scattered bilateral lymph nodes. UPPER ABDOMEN: Visualized liver, spleen, pancreas and bilateral adrenal glands are unremarkable. OSSEOUS STRUCTURES: No aggressive lytic or sclerotic process seen. There is mild ventral spondylosis throughout the dorsal spine. CT/CT chest wo IV con IMPRESSION: Bilateral pleural effusions and right greater than left. Dependent bibasal atelectasis and likely right lower lobe consolidation. Diffuse groundglass attenuation both upper lobes with patchy ill-defined opacities suggestive of airway disease with underlying developing infiltrates. Fleischner guidelines were followed. Electronically signed by: Grant Willis MD 06/19/2024 10:11 AM EDT
--- NOTE | ~2024-06-19 | XR_ITS ---
EXAMINATION: XR CHEST CLINICAL INFORMATION: Shortness of breath COMPARISON: 06/19/2024 TECHNIQUE: Frontal view of the chest was obtained. FINDINGS: Mild cardiomegaly with mild distention of the pulmonary vessels persists. No significant change from the prior study. Mild congestive change and/or superimposed pneumonitis could have similar appearance. The previously noted right pleural effusion appears diminished. XR/XR chest 1V IMPRESSION: Slight improvement. Query mild congestive change. Electronically signed by: Riley Fuentes MD 06/22/2024 02:30 PM EDT
--- NOTE | 2024-06-19 06:03 | ECG_ITS ---
Test Reason : SOB Blood Pressure : / mmHG Vent. Rate : 068 BPM Atrial Rate : 068 BPM P-R Int : 166 ms QRS Dur : 108 ms QT Int : 398 ms P-R-T Axes : 000 -40 090 degrees QTc Int : 423 ms Normal sinus rhythm Left axis deviation Left ventricular hypertrophy with repolarization abnormality ( R in aVL , [place] product ) Abnormal ECG When compared with ECG of 12-NOV-2021 09:15, No significant change was found Referred By: Opal Torres Electronically Signed By:SERGIO SAWYER
--- NOTE | 2024-06-19 06:08 | ED.SOB ---
HPI - SOB/Dyspnea General Chief Complaint: Dyspnea Stated Complaint: sob Time Seen by Provider: 06/19/24 05:55 Source: patient and EMS Mode of arrival: EMS Limitations: no limitations History of Present Illness ED Provider: Dr. Jennifer Tenorio HPI Narrative: Patient comes to the emergency room complaining of 2-3 days of shortness of breath. Patient states that she is oxygen dependent 2 L. However, patient of an forgets to use her oxygen. Patient states that her oxygen drops to the 80s. However, patient states that she was not aware that even when she walks to the bathroom, she is supposed to use oxygen. Per EMS, patient's oxygen saturation was in the low 90s on her usual 2 L. patient received a DuoNeb, Solu-Medrol. Patient denies chest pain. Related Data Previous Rx's ?Medication ?Instructions ?Recorded glipizide 5 mg tablet, extended 5 mg PO DAILY #30 tabs 11/19/21 release 24 hr blood sugar diagnostic (Accu-Chek #100 ea 02/17/22 Odilia Plus test strips) miscellaneous medical supply 1 ea miscellaneous DAILY #1 ea 02/27/22 miscellaneous medical supply 1 ea miscellaneous DAILY #1 ea 02/27/22 blood sugar diagnostic (Accu-Chek #100 ea 03/04/22 Guide test strips) lancets (Accu-Chek Softclix #100 ea 11/10/22 Lancets) atorvastatin 40 mg tablet 40 mg PO BEDTIME 90 days #90 tabs 05/19/23 insulin syringe-needle U-100 0.5 #100 ea 07/29/23 mL 31 gauge x 5/16 (BD Insulin Syringe Ultra-Fine) pen needle, diabetic 31 gauge x #100 ea 07/29/23 5/16 (1st Tier Unifine Pentips) valacyclovir 1 gram tablet 1,000 mg PO Q8H 7 days #21 tabs 01/21/24 fluticasone 250 mcg-salmeterol 50 1 inh inhalation BID 30 days #60 ea 01/25/24 mcg/dose blistr powdr for inhalation (Advair Diskus) oxycodone 5 mg tablet 5 mg PO BID PRN pain 7 days #14 01/25/24 tabs gemfibrozil 600 mg tablet 600 mg PO BID 90 days #180 tabs 02/15/24 amlodipine 5 mg tablet 5 mg PO DAILY 90 days #90 tabs 03/07/24 levothyroxine 200 mcg tablet 200 mcg PO DAILY 90 days #90 tabs 03/07/24 lorazepam 0.5 mg tablet 0.5 mg PO TID PRN anxiety 30 days 04/04/24 #90 tabs insulin glargine 100 unit/mL (3 15 unit (0.15 mL) subcut QAM 90 04/05/24 mL) subcutaneous pen (Basaglar days #13.5 mL KwikPen U-100 Insulin) duloxetine 20 mg capsule,delayed 20 mg PO DAILY 90 days #90 caps 05/14/24 release (Cymbalta) albuterol sulfate 90 mcg/actuation 2 puff inhalation Q6H PRN 05/31/24 aerosol inhaler (Ventolin HFA) shortness of breath or wheezing 30 days #8.5 grams Allergies Allergy/AdvReac Type Severity Reaction Status Date / Time ibuprofen [From Motrin] Allergy Unknown swelling Verified 06/19/24 05:59 codeine [CODEINE] AdvReac Unknown SLEEPY Verified 06/19/24 05:59 Review of Systems Review of Systems: Constitutional : No Weight loss, No Fever, No Chills, No Night Sweats, No Fatigue, No Malaise ENT/Mouth : No Hearing loss, No Ear Pain, No Nasal Congestion, No Sinus Pain, No Hoarseness, No sore throat, No Rhinorrhea, No Swallowing Difficulty Eyes: No Eye Pain, No Swelling, No Redness, No Foreign Body, No Discharge, No Vision Changes Cardiovascular : No Chest Pain, No SOB, No Dyspnea on Exertion, No Orthopnea, No Edema, No Palpitations Respiratory : Complaining of cough, shortness of breath Gastrointestinal : No Nausea, No Vomiting, No Diarrhea, No Constipation, No abdominal Pain, No Hematochezia, No Melena Genitourinary : no irregular bleeding, No Dysuria, No Urinary Frequency, No Hematuria, No Urinary Incontinence, No Urgency, No Flank Pain, No Urinary Flow Changes, No Hesitancy Musculoskeletal : No joint pain, No Myalgias, No Joint Swelling Skin : No Skin Lesions, No rash Neuro : No Weakness, No Numbness, No Paresthesias, No Loss of Consciousness, No Dizziness, No Headache Psych : No Anxiety/Panic, No Depression, No SI/HI/AH/VH, No Social Issues, Heme/Lymph: No Bruising, No Bleeding,No Lymphadenopathy Endocrine : No Polyuria, No Polydipsia, No Temperature Intolerance [facility] Past Medical History Medical History MARJORIE (acute kidney injury) Left bundle branch block Morbid obesity Chronic pain syndrome Anxiety Pernicious anemia COPD (chronic obstructive pulmonary disease) CHF (congestive heart failure) Hypothyroidism Essential hypertension Diabetes mellitus Pure hypercholesterolemia Surgical History H/O left knee surgery Deficient knowledge of leg surgery History of tonsillectomy and adenoidectomy History of appendectomy Family History Family History (Updated 12/09/23 @ 12:26 by MICHAEL Wiggins) Father CVD (cardiovascular disease) Mother No problems noted. Family/Other FH: mental illness Social History Social History Household Members: Family and Children Housing: House Do you presently have visiting nurse or other home services: No Alcohol intake: unknown Patient Tobacco Use Status: Former Tobacco user Tobacco use type: Cigarette Smoked in Last 30 Days: No e-Cigarette/Vaping Use: Never Used Second Hand Smoke Exposure: No Use of substances other than those prescribed or required for medical reasons: No Advance Directives: No Advance Directives Information Provided: Yes Do you have a plan to hurt others: No Plan service: No Current occupational status: disabled Cognitive needs: Yes Hearing needs: No Vision needs: No Physical Exam Vital Signs: Vital Signs: Last Vital Signs Temp 98.2 F 06/19/24 05:56 Pulse 71 06/19/24 07:55 Resp 22 H 06/19/24 07:55 BP 172/56 H 06/19/24 07:55 Pulse Ox 97 06/19/24 07:55 O2 Del Method Nasal Cannula 06/19/24 07:55 O2 Flow Rate 2 06/19/24 07:55 Oxygen Flow Rate 2 06/19/24 05:56 BMI result Body Mass Index 36.6 Const: Other: Appearance: Alert. Oriented X3. No acute distress. Eyes: Pupils equal, round and reactive to light. ENT: Pharynx normal. Neck: Normal inspection. Neck supple. No lymph nodes noted. No crepitus CVS: Normal heart rate and rhythm. Pulses normal. Normal S1 and S2 Respiratory: No respiratory distress. Patient has bilateral wheezing, tachypneic Abdomen: Soft and nontender. No rigidity. No distention. Skin: Skin warm and dry. Normal skin color. Normal skin turgor. Extremities: No lower extremity edema. No Lacerations. No Rash Neuro: Oriented X 3. No motor deficit. No sensory deficit. Moving all extremities. No slurred speech. CN 2 through 12 grossly intact Psych: calm, cooperative, normal affect Course Course Course Narrative: all Of patient's labs pending -patient receiving another nebulization treatment. -my interpretation of chest x-ray, right lower lobe pneumonia. Patient empirically being treated with azithromycin and ceftriaxone. As mentioned above, patient already received Solu-Medrol and nebulization treatments -at this time, CHF exacerbation is not suspected. -patient's blood pressure normal, no fever, irregular heart rate, at this time, 06:55, sepsis is not suspected. As mentioned above, all of patient's labs pending -sign-out given to my colleague АНДРЕЙ Luong Reevaluation(s) Reevaluation #1: [id number]-I received sign-out on this patient pending labs, viral testing, chest x-ray results. [id number]-I went to see the patient. Her chest x-ray shows vascular congestion with no evidence of pneumonia. She does have 1+ pitting edema bilaterally. She sounds wet. She does have a history of failure but is not currently taking any diuretics. She is unsure of any weight gain. Nursing informs me they have been unable to get any labs on the patient. I was able to obtain some and they will call phleb for these. I did order Lasix 40mg as well as a CT noncontrast chest Medications Administered Discontinued Medications Generic Name Dose Route Start Last Admin Trade Name Freq PRN Reason Stop Dose Admin Albuterol Sulfate 5 mg/ 0 mg 06/19/24 06:15 06/19/24 06:17 Albuterol/Ipratropium 3 ml INHALE 06/19/24 06:16 3 each ONCE ONE Administration Furosemide 40 mg 06/19/24 07:29 06/19/24 07:52 Furosemide 40 Mg/4 Ml Vial IVPUSH 06/19/24 07:30 40 mg STAT STA Administration Protocol Azithromycin 500 mg/ Sodium 250 mls @ 125 mls/hr 06/19/24 06:48 06/19/24 11:31 Chloride IV 06/19/24 08:47 Infused ONCE ONE Infusion Ceftriaxone Sodium 1 gm/ 50 mls @ 100 mls/hr 06/19/24 06:48 06/19/24 11:31 Sodium Chloride IV 06/19/24 07:17 Infused ONCE ONE Infusion Lorazepam 0.5 mg 06/19/24 08:30 06/19/24 08:52 Lorazepam 0.5 Mg Tablet PO 06/19/24 08:31 0.5 mg ONCE ONE Administration Sodium Zirconium Cyclosilicate 5 gm 06/19/24 07:57 06/19/24 08:53 Sodium Zirconium Cyclosilicate 5 Gm Powd.Pack PO 06/19/24 07:58 5 gm ONCE ONE Administration Medical Decision Making Medical Decision Making MDM Narrative: 78-year-old female with a history of COPD who is oxygen dependent who presents with progressive shortness of breath for the last 2-3 days with productive cough with white sputum. No fever or chest pain. Does have some leg swelling. Denies leg pain. History of CHF currently not on diuretic. Consider CHF, COPD or pneumonia-pending workup Differential Diagnosis Differential Diagnoses: The differential diagnosis associated with the presentation includes (COVID, RSV, viral syndrome, pneumonia, CHF) ACS CHF COPD exacerbation PNA Admission/Observation Consideration of admission/observation: Escalation of care including admission/observation considered (Given patient's age, past medical history and presentation, admission has been considered) CT concerning for infiltrate, may have CHF, definitely COPD exacerbation despite nebs, IV steroids, lasix patient is still quite tachypnic, call out to hosptalist to admit Consult Healthcare Provider Management of the patient was discussed with: Hospitalist Patient admitted by Dr Barfield for further management Lab Data MDM Lab Attestation statement: I reviewed the patient's lab results. +hyper K. Lasix/lokelma ordered 06/19/24 09:16 06/19/24 07:32 Labs: Lab Results 06/19/24 06/19/24 06/19/24 Range/Units 07:32 08:27 08:35 WBC (4.8-10.8) X10*3/uL RBC (4.20-5.50) X10*6/uL Hgb (12.0-16.0) g/dl Hct (37.0-47.0) % MCV (80.0-98.0) fL MCH (27.0-33.0) pg MCHC (31.0-35.0) g/dl RDW (11.0-16.0) % Plt Count (160-400) X10*3/uL MPV (9.4-12.3) fL Immature Gran % (Auto) (0.0-0.4) % Neut % (Auto) (45-73) % Lymph % (Auto) (20-40) % [place] % (Auto) (2-11) % Eos % (Auto) (0-4) % Baso % (Auto) (0-2) % Lymph # (Auto) (1.2-4.9) X10*3/uL [place] # (Auto) (0.1-1.2) X10*3/uL Eos # (Auto) (0.0-0.4) X10*3/uL Baso # (Auto) (0.0-0.2) X10*3/uL Abs Immat Gran (auto) (0.00-0.03) X10*3/uL Absolute Neuts (auto) (2.0-8.3) x10*3/uL Absolute Nucleated RBC (0.0-0.012) X10*3/uL Nucleated RBC % (auto) (0.0-0.2) /100WBC Smear Tech's Comments VBG pH 7.51 H (7.32-7.43) VBG pCO2 20 mmHg VBG pO2 146 mmHg VBG HCO3 16 L (22-26) mmol/L VBG O2 Saturation 99.0 % VBG Base Excess -4.9 mmol/L Sodium 143 (135-145) mmol/L Potassium 5.8 H (3.3-5.1) mmol/L Chloride 115 H (96-108) mmol/L Carbon Dioxide 16 L (22-29) mmol/L Anion Gap 18 (12-20) BUN 56 H (9-16) mg/dL Creatinine 1.83 H (0.5-1.4) mg/dL Estim Creat Clear Calc 30.6 Estimated GFR 27 Random Glucose 335 H (60-115) mg/dL Lactic Acid 1.1 (0.5-2.0) mmol/L Calcium 8.4 D (8.4-10.2) mg/dL Magnesium 2.5 (1.6-2.6) mg/dL Total Bilirubin 0.2 (0.0-1.0) mg/dL Direct Bilirubin < 0.2 (0.0-0.5) mg/dL AST 14 (5-31) U/L ALT 19 (0-31) U/L Alkaline Phosphatase 172 H (39-117) U/L Troponin I High Sens 13.6 (<3.5-17.0) ng/L B-Natriuretic Peptide (<100) pg/mL Total Protein 6.8 (6.5-8.0) g/dL Albumin 3.4 L (3.5-5.0) g/dL Influenza Type A (PCR) (Negative) Influenza Type B (PCR) (Negative) RSV RNA Qual (PCR) (Negative) SARS-CoV-2 RNA (RT-PCR) (Negative) 06/19/24 06/19/24 Range/Units 08:48 09:16 WBC 10.7 (4.8-10.8) X10*3/uL RBC 2.95 L (4.20-5.50) X10*6/uL Hgb 9.1 L (12.0-16.0) g/dl Hct 29.9 L (37.0-47.0) % MCV 101.4 H (80.0-98.0) fL MCH 30.8 (27.0-33.0) pg MCHC 30.4 L (31.0-35.0) g/dl RDW 14.2 (11.0-16.0) % Plt Count 299 (160-400) X10*3/uL MPV 9.2 L (9.4-12.3) fL Immature Gran % (Auto) 2.2 H (0.0-0.4) % Neut % (Auto) 94.3 H (45-73) % Lymph % (Auto) 2.1 L (20-40) % [place] % (Auto) 0.9 L (2-11) % Eos % (Auto) 0.2 (0-4) % Baso % (Auto) 0.3 (0-2) % Lymph # (Auto) 0.2 L (1.2-4.9) X10*3/uL [place] # (Auto) 0.1 (0.1-1.2) X10*3/uL Eos # (Auto) 0.0 (0.0-0.4) X10*3/uL Baso # (Auto) 0.0 (0.0-0.2) X10*3/uL Abs Immat Gran (auto) 0.23 H (0.00-0.03) X10*3/uL Absolute Neuts (auto) 10.1 H (2.0-8.3) x10*3/uL Absolute Nucleated RBC 0.030 H (0.0-0.012) X10*3/uL Nucleated RBC % (auto) 0.3 H (0.0-0.2) /100WBC Smear Tech's Comments VERIFIED VBG pH (7.32-7.43) VBG pCO2 mmHg VBG pO2 mmHg VBG HCO3 (22-26) mmol/L VBG O2 Saturation % VBG Base Excess mmol/L Sodium (135-145) mmol/L Potassium (3.3-5.1) mmol/L Chloride (96-108) mmol/L Carbon Dioxide (22-29) mmol/L Anion Gap (12-20) BUN (9-16) mg/dL Creatinine (0.5-1.4) mg/dL Estim Creat Clear Calc Estimated GFR Random Glucose (60-115) mg/dL Lactic Acid (0.5-2.0) mmol/L Calcium (8.4-10.2) mg/dL Magnesium (1.6-2.6) mg/dL Total Bilirubin (0.0-1.0) mg/dL Direct Bilirubin (0.0-0.5) mg/dL AST (5-31) U/L ALT (0-31) U/L Alkaline Phosphatase (39-117) U/L Troponin I High Sens (<3.5-17.0) ng/L B-Natriuretic Peptide 755 H (<100) pg/mL Total Protein (6.5-8.0) g/dL Albumin (3.5-5.0) g/dL Influenza Type A (PCR) NEGATIVE (Negative) Influenza Type B (PCR) NEGATIVE (Negative) RSV RNA Qual (PCR) NEGATIVE (Negative) SARS-CoV-2 RNA (RT-PCR) NEGATIVE (Negative) Independent Interpretation I performed an independent interpretation of an: EKG, Plain X-Ray and CT Scan Interpretation: I independently reviewed the x-ray/CT chest and agree with the radiology report I independently viewed the EKG which shows normal sinus rhythm, LVH Radiology Impression Discussion of test interpretation with radiology: I have reviewed the radiologist's reading. Radiologist Impression: [address] [address] XRay Report Signed Patient: Radhika Vaca MR#: [id number] : 1945 Acct:[id number] Age/Sex: 78 / F ADM Date: 06/19/24 Loc: .ED Attending Dr: Ordering Physician: Jennifer Tenorio MD Date of Service: 06/19/24 Procedure(s): XR chest 1V Accession Number(s): [id number] cc: Jennifer Tenorio MD~ EXAMINATION: XR CHEST CLINICAL INFORMATION: Shortness of breath, COPD. COMPARISON: Chest radiograph 11/10/2021 TECHNIQUE: Frontal view of the chest was obtained. FINDINGS: Low lung volumes are present. Mild blunting of the right costophrenic sulcus is visualized. No focal pulmonary consolidation identified. Mild diffuse vascular indistinctness noted. Moderate aortic calcific atherosclerosis. XR/XR chest 1V IMPRESSION: *Small right pleural effusion. *Findings suspicious for pulmonary vascular congestion. *Low lung volumes. Electronically signed by: Angus Robles MD 06/19/2024 07:02 AM EDT [address] [address] [address] Scan Report Signed Patient: Radhika Vaca MR#: [id number] : 1945 Acct:[id number] Age/Sex: 78 / F ADM Date: 06/19/24 Loc: .ED Attending Dr: Ordering Physician: Marilyn Oliva NP Date of Service: 06/19/24 Procedure(s): CT chest wo IV con Accession Number(s): [id number] cc: Neida Mirza MD; Marilyn Oliva NP~ EXAMINATION: CT CHEST WITHOUT CONTRAST CLINICAL INFORMATION: Shortness of breath, evaluate for pneumonia. COMPARISON: Chest x-ray 06/19/2024 TECHNIQUE: Multidetector volumetric CT imaging of the chest was done. Axial MIP volume rendering provided. Sagittal and coronal reformatted images were obtained. This CT examination was performed using dose optimization techniques as appropriate, variously including the following: *Automated exposure control *Adjustment of mA and/or kV according to patient size (this includes techniques or standardized protocols for targeted exams where dose is matched to indication/reason for exam; i.e. extremities or head) *Use of iterative reconstruction technique DLP: 405 mGy-cm FINDINGS: PEANUT GRADER: Well-inflated lungs. LUNGS: There is mild emphysematous lungs with groundglass patchy opacities seen in both upper lobes. There are patchy ill-defined opacities seen in both upper lobes posterior segments and airspace consolidation right upper lobe posterior segment. There is bilateral pleural effusions right greater than left with dependent atelectasis and/or infiltrates. MEDIASTINUM: Ventral trachea and the bronchi appears widely patent with a soft tissue density along the posterior trachea question debris. Heart size is enlarged with moderate mitral valve calcification. There is no pericardial effusion. Small reaction lymph nodes in the mediastinum with the largest pretracheal lymph node measuring 8 mm short axis image 19/3. CORONARY ARTERY CALCIFICATION: There is moderate coronary artery calcifications. PLEURA: There are small bilateral pleural effusions with right lower lobe consolidation/atelectasis. There is loculated effusion suspected in upper right major fissure AXILLA: There are scattered bilateral lymph nodes. UPPER ABDOMEN: Visualized liver, spleen, pancreas and bilateral adrenal glands are unremarkable. OSSEOUS STRUCTURES: No aggressive lytic or sclerotic process seen. There is mild ventral spondylosis throughout the dorsal spine. CT/CT chest wo IV con IMPRESSION: Bilateral pleural effusions and right greater than left. Dependent bibasal atelectasis and likely right lower lobe consolidation. Diffuse groundglass attenuation both upper lobes with patchy ill-defined opacities suggestive of airway disease with underlying developing infiltrates. Fleischner guidelines were followed. Electronically signed by: Grant Willis MD 06/19/2024 10:11 AM EDT RP Critical Care Time Critical Care Time Critical Care Time: Yes Total Critical Care Time: 60 Attestation: Multiple re-evaluations her respiratory status, patient requiring hospitalization, discussion with hospitalist Discharge Plan Discharge Clinical Impression: Pneumonia, Acute exacerbation of chronic obstructive airways disease, Anemia, Hyperkalemia, Acute kidney injury superimposed on chronic kidney disease CHF (congestive heart failure) Qualifiers: Heart failure type: diastolic Heart failure chronicity: chronic Qualified Code(s): I50.32 - Chronic diastolic (congestive) heart failure Patient Disposition: Admitted As Inpatient
[2024-06-19] MEDS: Albuterol Sulfate 5 MG, Albuterol/Iprat 2.5/0.5MG 3 ML 3 ML INHALE (06:17)
[2024-06-19 07:51] LABS: Alanine Aminotransferase 19 U/L (0-31); Albumin Level 3.4 g/dL (3.5-5.0); Alkaline Phosphatase 172 U/L (39-117); Anion Gap 18 (12-20); Aspartate Amino Transferase 14 U/L (5-31); Bilirubin Direct < 0.2 mg/dL (0.0-0.5); Bilirubin Total 0.2 mg/dL (0.0-1.0); Blood Urea Nitrogen 56 mg/dL (9-16); Calcium 8.4 mg/dL (8.4-10.2); Carbon Dioxide 16 mmol/L (22-29); Chloride 115 mmol/L (96-108); Creatinine Clr Calc Pharmacy 30.6; Estimated Glomerular Filt Rate 27; Glucose Random 335 mg/dL (60-115); Magnesium 2.5 mg/dL (1.6-2.6); Potassium 5.8 mmol/L (3.3-5.1); Sodium 143 mmol/L (135-145); Total Protein 6.8 g/dL (6.5-8.0)
[2024-06-19] MEDS: Furosemide 40 MG/4 ML VIAL IVPUSH ×2 (07:52→18:29)
[2024-06-19] MEDS: cefTRIAXone sodium 1 GM in 0.9 % Sodium Chloride 50 ML IV (07:53)
[2024-06-19 07:58] LABS: Troponin-I High Sensitivity 13.6 ng/L (<3.5-17.0)
--- NOTE | 2024-06-19 07:58 | PC.NURSE ---
SOB after treatment. LS bases are cogested. tachipnic. speaking in short phrases. pure whick in palce. plus three pedal edema BLEs to mid shins. states she feels better right side lying at home.
[2024-06-19] MEDS: Azithromycin 500 MG in 0.9 % Sodium Chloride 250 ML 125 MG IV (08:11)
--- NOTE | 2024-06-19 08:31 | PC.NURSE ---
Pt is a very difficult stick. Marbella RN's tech and a RESIDENTIAL APPLIANCE REPAIR TECHNICIAN attempting labs. Phlebotomy is aware. A few tubes remain uncollected.
[2024-06-19 08:44] LABS: Lactic Acid 1.1 mmol/L (0.5-2.0)
[2024-06-19 08:45] LABS: VBG Base Excess -4.9 mmol/L; VBG HCO3 16 mmol/L (22-26); VBG pCO2 20 mmHg; VBG pH 7.51 (7.32-7.43); VBG pO2 146 mmHg
[2024-06-19] MEDS: LORazepam 0.5 MG TABLET PO ×3 (08:52→20:06)
[2024-06-19] MEDS: Sodium Zirconium Cyclosilicate 5 GM POWD.PACK PO (08:53)
[2024-06-19 08:55] LABS: Venous Blood Gas Refer to POC result
[2024-06-19 09:21] LABS: Basophils Percent Auto 0.3 % (0-2); Eosinophils Percent Auto 0.2 % (0-4); Hematocrit 29.9 % (37.0-47.0); Hemoglobin 9.1 g/dl (12.0-16.0); Imm Gran Abs Auto 0.23 X10*3/uL (0.00-0.03); Imm Gran Pct Auto 2.2 % (0.0-0.4); Lymphocytes Absolute Auto 0.2 X10*3/uL (1.2-4.9); Lymphocytes Percent Auto 2.1 % (20-40); MANUAL DIFF FLAG SCAN; Mean Corpuscular HGB Conc 30.4 g/dl (31.0-35.0); Mean Corpuscular Hemoglobin 30.8 pg (27.0-33.0); Mean Corpuscular Volume 101.4 fL (80.0-98.0); Mean Platelet Volume 9.2 fL (9.4-12.3); Monocytes Absolute Auto 0.1 X10*3/uL (0.1-1.2); Monocytes Percent Auto 0.9 % (2-11); NRBC Pct Auto 0.3 /100WBC (0.0-0.2); Neutrophils Absolute Auto 10.1 x10*3/uL (2.0-8.3); Neutrophils Percent Auto 94.3 % (45-73); Platelet Count 299 X10*3/uL (160-400); Red Blood Count 2.95 X10*6/uL (4.20-5.50); Red Cell Distribution Width 14.2 % (11.0-16.0); SCAN SMEAR FLAG 1; White Blood Count 10.7 X10*3/uL (4.8-10.8)
[2024-06-19 09:35] LABS: Influenza A PCR NEGATIVE (Negative); Influenza B PCR NEGATIVE (Negative); Resp Syncy Virus RNA Qual PCR NEGATIVE (Negative); SARS COV2 PCR INHOUSE NEGATIVE (Negative)
[2024-06-19 09:54] LABS: SLIDE REVIEW VERIFIED
[2024-06-19 10:09] LABS: B Type Natriuretic Peptide 755 pg/mL (<100)
--- NOTE | 2024-06-19 10:44 | PC.NURSE ---
update to Robbie molina.
--- NOTE | 2024-06-19 11:19 | PM.IMHP ---
History of Present Illness Date of Service: 06/19/24 Attending physician on admission: Beltran Barfield Chief Complaint: SOB Pt is a 78-year-old female with a PMH significant for?COPD, HFpEF, pernicious anemia, HTN, HLD insulin-dependent type 2 diabetes with neuropathy, CKD3, hypothyroidism, and mood disorder who presents to the ED with increasing SOB and RIZVI x2-3 days, worse this morning. Has also experienced chest heaviness during this time associated with deep breathing and exertion. Chronic lower edema at baseline. Nonproductive cough at baseline, however patient states she feels there is something ?rattling around? in her chest that she can not cough up. Patient reports she has previously diagnosed with CHF 3 years ago. Initially was started on home Lasix, but patient was unable to tolerate medication due to frequent urination and has not been taking any diuretics for over 2 years. Does not follow up outpatient with either cardiology or nephrology. Denies fever, chills, N/V/D, or abdominal pain. In the ED pt was tachypneic up to 28 and hypertensive up to 172/56. Labs were significant for stable macrocytic anemia 9.1/29.9 and MCV 101.4, potassium 5.8, bicarb 16, BUN 56, creatinine 1.83, random glucose 335, alk-phos 172, and BNP 755. Lactic acid WNL. No leukocytosis. Tested negative for influenza, RSV, and COVID. VB pH showed pH 7.1 with normal pCO2 and slightly low bicarb at 16. CXR showed right pleural effusion and findings suspicious for pulmonary vascular congestion. Chest CT found bilateral pleural effusions with right greater than left independent bibasilar atelectasis with likely right lower lobe consolidation. Overall found diffuse ground-glass attenuation suggestive of airway disease with underlying developing infiltrates. EKG pending. Pt was treated with DuoNebs, furosemide 40 mg IV, lorazepam, Lokelma, ceftriaxone, and azithromycin. Pt will be admitted to the hospital for treatment and further evaluation acute HFpEF exacerbation and hyperkalemia. Review of Systems Review of Systems: SOB, RIZVI Non-productive cough Chest heaviness associated with breathing and exertion No fever, chills, nausea, vomiting, diarrhea, abdominal pain PMFSH Medical History MARJORIE (acute kidney injury) Left bundle branch block Morbid obesity Chronic pain syndrome Anxiety Pernicious anemia COPD (chronic obstructive pulmonary disease) CHF (congestive heart failure) Hypothyroidism Essential hypertension Diabetes mellitus Pure hypercholesterolemia Family History Father CVD (cardiovascular disease) Mother No problems noted. Family/Other FH: mental illness Surgical History H/O left knee surgery Deficient knowledge of leg surgery History of tonsillectomy and adenoidectomy History of appendectomy Social History Household Members: Family and Children Housing: House Do you presently have visiting nurse or other home services: No Alcohol intake: unknown Patient Tobacco Use Status: Former Tobacco user Tobacco use type: Cigarette Smoked in Last 30 Days: No e-Cigarette/Vaping Use: Never Used Second Hand Smoke Exposure: No Use of substances other than those prescribed or required for medical reasons: No Advance Directives: No Advance Directives Information Provided: Yes Do you have a plan to hurt others: No Plan service: No Current occupational status: disabled Cognitive needs: Yes Hearing needs: No Vision needs: No Meds Allergies Allergy/AdvReac Type Severity Reaction Status Date / Time ibuprofen [From Motrin] Allergy Unknown swelling Verified 06/19/24 05:59 codeine [CODEINE] AdvReac Unknown SLEEPY Verified 06/19/24 05:59 Physical Exam Vital Signs and Narrative: Vital Signs: Last Vital Signs Temp 98.2 F 06/19/24 05:56 Pulse 71 06/19/24 07:55 Resp 22 H 06/19/24 07:55 BP 172/56 H 06/19/24 07:55 Pulse Ox 97 06/19/24 07:55 O2 Del Method Nasal Cannula 06/19/24 07:55 O2 Flow Rate 2 06/19/24 07:55 Oxygen Flow Rate 2 06/19/24 05:56 BMI result Body Mass Index 36.6 Constitutional: Alert, in no acute distress. Mental Status: Oriented to person, place and time. Eyes: Pupils are equal, round, and reactive to light. Ear, Nose, and Throat: Oropharynx clear, mucous membranes moist. Ears and nose without deformities. Trachea midline. Respiratory: Bibasilar crackles. No wheezing. Cardiovascular: S1, S2 regular. No murmurs, rubs, or gallops. Gastrointestinal: Abdomen soft, non-tender, non-distended. Normal bowel sounds. Neurologic: Cranial nerves II-XII are grossly intact bilaterally. No focal neurological deficits. Moves all extremities spontaneously. Skin: Warm, dry. Extremities: 1+ bilateral pitting edema. Chronic venous stasis dermatitis changes bilaterally. Psychiatric: Normal mood and affect. Results Labs 06/19/24 09:16 06/19/24 07:32 Labs: Laboratory Results - last 24 hr 06/19/24 06/19/24 06/19/24 07:32 08:27 08:35 MCV MCH MCHC RDW Plt Count MPV Immature Gran % (Auto) Neut % (Auto) Lymph % (Auto) [facility] % (Auto) Eos % (Auto) Baso % (Auto) Lymph # (Auto) [facility] # (Auto) Eos # (Auto) Baso # (Auto) Abs Immat Gran (auto) Absolute Neuts (auto) Absolute Nucleated RBC Nucleated RBC % (auto) Smear Tech's Comments VBG pH 7.51 H VBG pCO2 20 VBG pO2 146 VBG HCO3 16 L VBG O2 Saturation 99.0 VBG Base Excess -4.9 Anion Gap 18 Estim Creat Clear Calc 30.6 Estimated GFR 27 Random Glucose 335 H Lactic Acid 1.1 Calcium 8.4 D Magnesium 2.5 Total Bilirubin 0.2 Direct Bilirubin < 0.2 AST 14 ALT 19 Alkaline Phosphatase 172 H Troponin I High Sens 13.6 B-Natriuretic Peptide Total Protein 6.8 Albumin 3.4 L Influenza Type A (PCR) Influenza Type B (PCR) RSV RNA Qual (PCR) SARS-CoV-2 RNA (RT-PCR) 06/19/24 06/19/24 08:48 09:16 MCV 101.4 H MCH 30.8 MCHC 30.4 L RDW 14.2 Plt Count 299 MPV 9.2 L Immature Gran % (Auto) 2.2 H Neut % (Auto) 94.3 H Lymph % (Auto) 2.[address] [facility] % (Auto) 0.9 L Eos % (Auto) 0.2 Baso % (Auto) 0.3 Lymph # (Auto) 0.[address] [facility] # (Auto) 0.1 Eos # (Auto) 0.0 Baso # (Auto) 0.0 Abs Immat Gran (auto) 0.23 H Absolute Neuts (auto) 10.1 H Absolute Nucleated RBC 0.030 H Nucleated RBC % (auto) 0.3 H Smear Tech's Comments VERIFIED VBG pH VBG pCO2 VBG pO2 VBG HCO3 VBG O2 Saturation VBG Base Excess Anion Gap Estim Creat Clear Calc Estimated GFR Random Glucose Lactic Acid Calcium Magnesium Total Bilirubin Direct Bilirubin AST ALT Alkaline Phosphatase Troponin I High Sens B-Natriuretic Peptide 755 H Total Protein Albumin Influenza Type A (PCR) NEGATIVE Influenza Type B (PCR) NEGATIVE RSV RNA Qual (PCR) NEGATIVE SARS-CoV-2 RNA (RT-PCR) NEGATIVE Imaging Radiologist's Impressions: Impressions Chest X-Ray 06/19/24 06:04 IMPRESSION: *Small right pleural effusion. *Findings suspicious for pulmonary vascular congestion. *Low lung volumes. Electronically signed by: Angus Robles MD 06/19/2024 07:02 AM EDT RP Chest CT 06/19/24 09:36 IMPRESSION: Bilateral pleural effusions and right greater than left. Dependent bibasal atelectasis and likely right lower lobe consolidation. Diffuse groundglass attenuation both upper lobes with patchy ill-defined opacities suggestive of airway disease with underlying developing infiltrates. Fleischner guidelines were followed. Electronically signed by: Grant Willis MD 06/19/2024 10:11 AM EDT RP Assessment and Plan (1) Hyperkalemia: Status: Acute (2) Acute exacerbation of CHF (congestive heart failure): Status: Acute Plan Pt is a 78-year-old female with a PMH significant for?COPD, HFpEF, pernicious anemia, HTN, HLD insulin-dependent type 2 diabetes with neuropathy, CKD3, hypothyroidism, and mood disorder who presents to the ED with increasing SOB and RIZVI x2-3 days, worse this morning. Pt will be admitted to the hospital for treatment and further evaluation acute HFpEF exacerbation and hyperkalemia. Acute HFpEF exacerbation Pt with SOB, RIZVI, LLE, nonproductive cough Elevated BNP, CT with bilateral pleural effusions Likely secondary to medication noncompliance: Patient has not been taking diuretics for past 2+ years Lasix 40 mg b.i.d. Echocardiogram Follow Mag alejandra, I/O Daily weights, low-salt diet Cardiology consult Monitor on telemetry CKD 3 with Hyperkalemia Potassium 5.8 at time of presentation, peaked t-waves on EKG With metabolic acidosis compensated by respiratory alkalosis ? of RTA type 4 Patient given Lokelma in the ED Will give additional Lokelma, calcium gluconate, and albuterol Creatinine 1.83, around baseline Low phosphorus, low potassium diet Does not follow outpatient with Nephrology Nephrology consult Follow BMP Monitor on telemetry ?pneumonia CT with question of developing infiltrates Pt afebrile, no leukocytosis, nonproductive cough Clinically does not appear to have pneumonia, no sepsis Will continue azithromycin for pleiotropic effects, started 06/19/2024 COPD Not in acute exacerbation DuoNebs for SOB Guaifenesin for cough Continue home inhalers HTN Continue amlodipine HLD Continue statin, gemfibrozil Insulin-dependent type 2 diabetes Sliding scale insulin, Lantus Continue glipizide Diabetic diet Full Code Attending:?Dr. Barfield DVT Prophylaxis: Heparin Pt will require a hospitalization of at least two nights for treatment of?acute CHF exacerbation and hypokalemia that will require administration of IV diuretics, close monitoring of cardiac function and electrolytes, and specialist consultation with Cardiology and Nephrology. Quality Stroke Does the patient have a stroke diagnosis?: No VTE Prior VTE?: No VTE Risk Level:: Medical - moderate - high VTE Device Contraindication: Treatment Not Indicated VTE Drug Contraindication: N/A - Med Ordered
--- NOTE | 2024-06-19 11:43 | PC.NURSE ---
full bed change, pt cleaned, repositioned. purewick back in place.
[2024-06-19] MEDS: Sodium Zirconium Cyclosilicate 10 GM POWD.PACK PO ×2 (13:58→16:40)
--- NOTE | 2024-06-19 14:08 | PC.NURSE ---
Addendum entered by Mable Lo 06/19/24 14:15: rechecked POC before giving 8 unites of insulin. POC 482. Eden text to Dr Barfield for lispro dose. Per Dr. Barfield give 14u lispro. 8 units of insulin was not given, and 14 units will be given. Original Note: pr tiger text from Dr. Barfield - give sliding scale insulin based on sugar of 335. 8 units. unscheduled dose charted in MAR
[2024-06-19 14:09] LABS: Troponin-I High Sensitivity 12.1 ng/L (<3.5-17.0)
[2024-06-19] MEDS: Calcium Gluconate/NaCl,Iso-Osm 1 GM/50 ML PLAST..BAG IV ×2 (14:16→16:40)
[2024-06-19] MEDS: Heparin Sodium,Porcine 5,000 UNIT/ML VIAL 5000 UNIT SUBCUT (14:21)
[2024-06-19] MEDS: Insulin Lispro 100 UNIT/ML 3 ML VIAL SUBCUT ×3 (14:22→21:44)
[2024-06-19] MEDS: Albuterol/Iprat 2.5/0.5MG 3 ML AMPUL.NEB INHALE ×2 (14:28→21:14)
[2024-06-19] MEDS: Insulin Glargine,Hum.rec.anlog 100 UNIT/ML 10 ML VIAL 10 UNIT SUBCUT (14:33)
[2024-06-19 14:39] LABS: Glucose, Whole Blood 482 mg/dL (60-115)
[2024-06-19 15:10] LABS: Glucose Random 611 mg/dL (60-115)
[2024-06-19 15:11] LABS: Anion Gap 16 (12-20); Blood Urea Nitrogen 55 mg/dL (9-16); Calcium 8.3 mg/dL (8.4-10.2); Carbon Dioxide 21 mmol/L (22-29); Chloride 111 mmol/L (96-108); Creatinine Clr Calc Pharmacy 29.2; Estimated Glomerular Filt Rate 26; Potassium 5.8 mmol/L (3.3-5.1); Sodium 142 mmol/L (135-145)
[2024-06-19 15:16] LABS: Glucose, Whole Blood 580 mg/dL (60-115)
--- NOTE | 2024-06-19 15:20 | PC.NURSE ---
critical called BG 611. PA notified. tiger text order to recheck POC in 45 minutes
[2024-06-19 16:01] LABS: Glucose, Whole Blood 520 mg/dL (60-115)
[2024-06-19] MEDS: Sodium Bicarbonate 650 MG TABLET PO ×2 (16:40→20:06)
--- NOTE | 2024-06-19 16:57 | PC.NURSE ---
pt reports increased anxiety. PRN ativan given per mar
--- NOTE | 2024-06-19 17:18 | PHA.MEDREC ---
Addendum entered by Janine Chen RPh 06/19/24 17:31: [facility] reviewed Original Note: Pharmacy Consult ? Medication Reconciliation Pharmacy has completed the medication reconciliation. Patient poor historian. Called tracy Avalos to confirm meds.
--- NOTE | 2024-06-19 18:17 | PC.NURSE ---
recheck POC 399, PA notified
[2024-06-19 18:18] LABS: Glucose, Whole Blood 399 mg/dL (60-115)
[2024-06-19] MEDS: Insulin Regular, Human 100 UNIT/ML 10 ML VIAL 12 UNIT IVPUSH (18:25)
[2024-06-19 19:19] LABS: Glucose, Whole Blood 263 mg/dL (60-115)
[2024-06-19] MEDS: Atorvastatin Calcium 40 MG TABLET PO (20:06)
[2024-06-19] MEDS: Insulin Glargine,Hum.rec.anlog 100 UNIT/ML 10 ML VIAL 30 UNIT SUBCUT (20:07)
[2024-06-19 21:17] LABS: Glucose, Whole Blood 222 mg/dL (60-115)
[2024-06-19] MEDS: oxyCODONE HCl Immed Release 5 MG TABLET PO (21:44)
[2024-06-19] MEDS: gemfibroziL 600 MG TABLET PO (21:44)
[2024-06-19 22:41] LABS: Potassium 4.7 mmol/L (3.3-5.1)
--- NOTE | 2024-06-19 22:53 | PC.NURSE ---
Assumed care of this patient at 1900, patient very uncomfortable on hospital stretcher, complaining of coccyx pain r/t old tail bone injury, patient transitioned to hospital bed, repositioned, messaged provider Opal about pain medication, oxy 1x order given. Also spoke to Terrence RE: POC, did he still want SC given after IV insulin given 1 hour prior, okay to continue SC as ordered. Medicated per DEC. Patient now resting much more comfortably on bed at this time.
[2024-06-20] VITALS (15 sets, daily range): BP systolic 106–167; BP diastolic 36–72; PULSE 56–83; RESP 20–22; TEMP 36.2–36.8; O2SAT 90–100
--- NOTE | 2024-06-20 00:23 | PC.NURSE ---
assumed care of pt at this time. pt reports she is feeling anxious. prn not due at this time. MD notified. pt is axox4 calm/cooperative.
[2024-06-20] MEDS: LORazepam 0.5 MG TABLET PO ×3 (01:00→21:50)
[2024-06-20] MEDS: Heparin Sodium,Porcine 5,000 UNIT/ML VIAL 5000 UNIT SUBCUT ×3 (01:02→23:44)
[2024-06-20] MEDS: 0.9 % Sodium Chloride Flush 3 ML SYRINGE IVFLUSH ×3 (01:02→23:44)
--- NOTE | 2024-06-20 01:34 | PC.NURSE ---
pt medicated per mar tolerated po med. pt now resting comfortably in bed resp even and unlabored. call hull within reach.
[2024-06-20 05:32] LABS: Estimated Average Glucose 197 mg/dL; Hemoglobin A1c % 8.5 % (<6.0)
[2024-06-20 05:48] LABS: Anion Gap 16 (12-20); Blood Urea Nitrogen 59 mg/dL (9-16); Calcium 8.6 mg/dL (8.4-10.2); Carbon Dioxide 22 mmol/L (22-29); Chloride 109 mmol/L (96-108); Creatinine Clr Calc Pharmacy 29.4; Estimated Glomerular Filt Rate 26; Glucose Random 100 mg/dL (60-115); Magnesium 2.2 mg/dL (1.6-2.6); Sodium 142 mmol/L (135-145)
[2024-06-20] MEDS: Levothyroxine Sodium 200 MCG TABLET PO (06:45)
--- NOTE | 2024-06-20 07:00 | CA_ITS ---
Transthoracic Echocardiogram Patient (Last, First, Middle): Radhika Vaca N Gender: Female Date of : 1945 Age: 78 Procedure Date: 06/20/2024 Procedure Type: Transthoracic Echocardiogram Location: [facility] Height: 165.1 cm Weight: 99.79 kg BSA: 2.06 m2 Heart Rate: bpm BP: 134 / 59 mmHg Bolt Man: VIET Roberts MD: Opal [employer]ator: Fernando Leigh MD Symptoms: CHF exacerbation Study Quality: Fair ECG Rhythm: Sinus Conclusions: - 1. Normal LV ejection fraction 60 65% with pseudonormal filling pattern 2. At least mildly dilated left atrium 3. Mild calcific aortic stenosis 4. Heavy mitral annular calcification along with mitral valve leaflet calcification with possible mild mitral stenosis 5. Severely elevated right ventricular systolic pressure significant elevated right atrial pressures 6. Mildly dilated ascending aorta Findings Left Ventricle Normal left ventricular size and systolic function. There is mildly increased left ventricular wall thickness. The visually estimated ejection fraction is between 60-65%. Spectral Doppler is indicative of a pseudonormal filling pattern. Right Ventricle The right ventricle was not well visualized. Atria The left atrium is mildly dilated. Interatrial shunt cannot be excluded. The right atrium is likely dilated. Aortic Valve There is mild calcification of the aortic valve. There is mild aortic valve stenosis. The peak aortic gradient is 13 mmHg.The mean gradient is 8 mmHg. The aortic valve area is 1.91 cm2. There is no aortic valve regurgitation. Mitral Valve There is severe anterior and posterior mitral leaflet thickening. There is moderate anterior and moderate posterior mitral annular calcification. There is severe mitral annular calcification. There is no mitral valve regurgitation. mean gradient of 6 mm Hg. Mild mitral stenosis can not be ruled out. Pulmonic Valve The pulmonic valve was not well visualized. Tricuspid Valve Likely normal tricuspid valve structure and function. There is mild tricuspid valve regurgitation. Significantly elevated right atrial pressure. Severe pulmonary hypertension is present. Great Vessels The aorta was not well visualized. The pulmonary artery was not well visualized. There is mild dilatation of the ascending aorta measuring 3.70 cm. Venous The inferior vena cava is moderately dilated and does not collapse with inspiration. Pericardium/Pleural The pericardium was not well visualized. Prior Study Comparison No significant change compared to prior study dated: 11/11/2021. Measurements 2D Linear Measurements IVSd: 1.32 0.6-0.9/0.6-1.0 cm LVIDd: 4.44 3.9-5.3/4.2-5.9 cm LVIDd Index: 2.16 2.4-3.2/2.2-3.1 cm/m2 LVIDs: 2.65 2.0-3.6 cm LVPWd: 1.14 0.7-1.1 cm LA Diam: 4.60 2.7-3.8/3.0-4.0 cm LAIDs Index: 2.23 1.5-2.3 cm/m2 LV Mass: 250.62 67-162/88-224 g LV Mass Index: 121.66 43-95/49-115 g/m2 LVOT Diam: 2.00 3.0+(-)1.3 cm Mitral Valve MV VTI: 0.81 MV Pk Hayden: 2.27 MV Mn Hayden: 1.13 MV Pk Grad: 21.00 MV Mn Grad: 6.00 MV Pk E: 1.99 MV PK A: 1.28 MV Decel Time: 329.00 E/A: 1.60 E'Lateral: 4.57 E'Medial: 3.81 E/E' Med: 52.20 E/E' Lat: 43.50 PHT: 96.00 MVA PHT: 2.29 MVA Continuity: 1.07 Decel Coffee: 6.04 Aortic Valve AoV Pk Hayden: 1.83 AoV Mn Hayden: 1.30 AoV VTI: 0.45 AoV Pk Grad: 13.00 Aov Mn Grad: 8.00 CHASITY Cont.VTI: 1.91 LVOT LVOT Pk Hayden: 1.27 LVOT Mn Hayden: 0.82 LVOT VTI: 0.28 LVOT Pk Grad: 6.00 LVOT Mn Grad: 3.00 LVOT Diam: 2.00 LVOT Area: 3.14 Diastolic Function MV Pk E: 1.99 MV Pk A: 1.28 E/A: 1.60 E'Medial: 3.81 E/E' Med: 52.20 E' Laterial: 4.57 E/E' Lat: 43.50 Right Ventricle TAPSE (mm): 24.80 TVS' Hayden: 15.80 Tricuspid Valve TR Pk Hayden: 3.90 TR Pk Grad: 61.00 RA Press: 15.00 RVSP: 76.00 Great Vessels Aorta Sinus of Valsalva: 3.06 2.0-3.[address] Ridge: 2.40 1.7-3.4 cm Ao Asc: 3.70 2.1-3.4 cm Updated in Other Vendor System with Status of Final Fernando Leigh MD electronically signed on 06/20/2024 4:26:28 PM with status of Final
[2024-06-20 07:50] LABS: Glucose, Whole Blood 185 mg/dL (60-115)
[2024-06-20] MEDS: Albuterol/Iprat 2.5/0.5MG 3 ML AMPUL.NEB INHALE ×4 (07:50→19:43)
[2024-06-20] MEDS: Insulin Lispro 100 UNIT/ML 3 ML VIAL SUBCUT ×3 (08:30→21:48)
[2024-06-20] MEDS: Azithromycin 500 MG in 0.9 % Sodium Chloride 250 ML 125 MG IV (08:55)
[2024-06-20] MEDS: cefTRIAXone sodium 1 GM in 0.9 % Sodium Chloride 50 ML IV (08:58)
[2024-06-20] MEDS: Sodium Bicarbonate 650 MG TABLET PO ×4 (09:01→21:50)
[2024-06-20] MEDS: Furosemide 40 MG/4 ML VIAL IVPUSH ×2 (09:01→18:01)
[2024-06-20] MEDS: DULoxetine HCl 20 MG CAPSULE.DR PO (09:33)
--- NOTE | 2024-06-20 09:45 | PC.NURSE ---
Gemfibrozil unavailable in ED
--- NOTE | 2024-06-20 10:22 | P.CONNP_ITS ---
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 Has also experienced chest heaviness during this time associated with deep breathing and exertion. Chronic lower edema at baseline. Nonproductive cough at baseline, however patient states she feels there is something ?rattling around? in her chest that she can not cough up. Patient reports she has previously diagnosed with CHF 3 years ago. Initially was started on home Lasix, but patient was unable to tolerate medication due to frequent urination and has not been taking any diuretics for over 2 years. Denies fever, chills, N/V/D, or abdominal pain. She is well known to me from previous hospitalization and office visit. She was history of acute kidney injury with hyperkalemia requiring emergency dialysis couple of years ago. She has underlying CKD 3 PMFSH Past Medical History Medical History MARJORIE (acute kidney injury) Left bundle branch block Morbid obesity Chronic pain syndrome Anxiety Pernicious anemia COPD (chronic obstructive pulmonary disease) CHF (congestive heart failure) Hypothyroidism Essential hypertension Diabetes mellitus Pure hypercholesterolemia Family History Family History Father CVD (cardiovascular disease) Mother No problems noted. Family/Other FH: mental illness Surgical History Surgical History H/O left knee surgery Deficient knowledge of leg surgery History of tonsillectomy and adenoidectomy History of appendectomy Social History Social History Household Members: Children Housing: House Do you presently have visiting nurse or other home services: Yes ([facility]) Alcohol intake: unknown Patient Tobacco Use Status: Former Tobacco user Tobacco use type: Cigarette e-Cigarette/Vaping Use: Never Used Second Hand Smoke Exposure: No service: No Current occupational status: disabled Cognitive needs: Yes Hearing needs: No Vision needs: No Meds Allergies Allergy/AdvReac Type Severity Reaction Status Date / Time ibuprofen [From Motrin] Allergy Unknown swelling Verified 06/19/24 05:59 codeine [CODEINE] AdvReac Unknown SLEEPY Verified 06/19/24 05:59 Active Medications: Current Medications Acetaminophen (Acetaminophen 325 Mg Tablet) 650 mg PO Q6H PRN PRN Reason: Pain, Mild (Pain Scale 1-3), fever or headache Albuterol/Ipratropium (Albuterol/Iprat 2.5/0.5mg 3 Ml Ampul.Neb) 3 ml INHALE RQ4H WHILE AWAKE [facility] Last Admin: 06/20/24 07:50 Dose: 3 ml Atorvastatin Calcium (Atorvastatin Calcium 40 Mg Tablet) 40 mg PO BEDTIME [facility] Last Admin: 06/19/24 20:06 Dose: 40 mg Calcium Carbonate (Calcium Carbonate 750 Mg Tab.Chew) 750 mg PO Q4H PRN PRN Reason: Heartburn Duloxetine HCl (Duloxetine Hcl 20 Mg Capsule.Dr) 20 mg PO DAILY [facility] Last Admin: 06/20/24 09:33 Dose: 20 mg Furosemide (Furosemide 40 Mg/4 Ml Vial) 40 mg IVPUSH BID@0900,1800 [facility]; Protocol Last Admin: 06/20/24 09:01 Dose: 40 mg Gemfibrozil (Gemfibrozil 600 Mg Tablet) 600 mg PO BID [facility] Last Admin: 06/19/24 21:44 Dose: 600 mg Glucose (Glucose Gel 15 Gm Gel..Gram.) 15 gm PO Q15M PRN; Protocol PRN Reason: per Hypoglycemia Standing Ord. Guaifenesin/Dextromethorphan (Guaifenesin Dm 200/20/10 Ml 10 Ml Syrup) 10 ml PO Q6H PRN PRN Reason: Cough Heparin Sodium (Porcine) (Heparin Sodium,Porcine 5,000 Unit/Ml Vial) 5,000 unit SUBCUT Q12H [facility] Last Admin: 06/20/24 01:02 Dose: 5,000 unit Azithromycin 500 mg/ Sodium (Chloride) 250 mls @ 125 mls/hr IV Q24H [facility] Last Admin: 06/20/24 08:55 Dose: 125 mls/hr Dextrose (D10) 250 mls @ 750 mls/hr IV Q15M PRN; Protocol PRN Reason: per Hypoglycemia Standing Ord. Ceftriaxone Sodium 1 gm/ (Sodium Chloride) 50 mls @ 100 mls/hr IV Q24H [facility] Last Admin: 06/20/24 08:58 Dose: 100 mls/hr Insulin Glargine (Insulin Glargine,Hum.Rec.Anlog 100 Unit/Ml 10 Ml Vial) 30 unit SUBCUT BEDTIME [facility] Last Admin: 06/19/24 20:07 Dose: 30 unit Insulin Human Lispro (Insulin Lispro 100 Unit/Ml 3 Ml Vial) 0 unit SUBCUT QIDACHS [facility]; Protocol Last Admin: 06/20/24 08:30 Dose: 2 unit Levothyroxine Sodium (Levothyroxine Sodium 200 Mcg Tablet) 200 mcg PO DAILY@0600 [facility] Last Admin: 06/20/24 06:45 Dose: 200 mcg Lorazepam (Lorazepam 0.5 Mg Tablet) 0.5 mg PO TID PRN PRN Reason: anxiety Last Admin: 06/19/24 20:06 Dose: 0.5 mg Magnesium Hydroxide (Milk Of Magnesia 30 Ml Oral.Susp) 30 ml PO DAILY PRN PRN Reason: Constipation Melatonin (Melatonin 3 Mg Tablet) 6 mg PO BEDTIME PRN PRN Reason: Insomnia Ondansetron HCl (Ondansetron Hcl 4 Mg/2 Ml Vial) 4 mg IVPUSH Q8H PRN PRN Reason: Nausea and Vomiting Sodium Bicarbonate (Sodium Bicarbonate 650 Mg Tablet) 650 mg PO QID [facility] Last Admin: 06/20/24 09:01 Dose: 650 mg Sodium Chloride (0.9 % Sodium Chloride Flush 3 Ml Syringe) [address] [facility] Last Admin: 06/20/24 07:42 Dose: Not Given Home Medications ?Medication ?Instructions ?Recorded ?Confirmed ?Last Taken ?Type insulin glargine 100 unit/mL (3 15 unit subcut BEDTIME 06/19/24 06/19/24 06/18/24 History mL) subcutaneous pen (Basaglar KwikPen U-100 Insulin) levothyroxine 200 mcg tablet 200 mcg PO DAILY@0600 06/19/24 06/19/24 06/18/24 History Physical Exam Vital Signs: Last Vital Signs Temp 97.7 F 06/20/24 10:11 Pulse 62 06/20/24 10:11 Resp 20 06/20/24 10:11 BP 150/60 H 06/20/24 10:11 Pulse Ox 96 06/20/24 10:11 O2 Del Method Nasal Cannula 06/20/24 10:11 O2 Flow Rate 2 06/20/24 10:11 Oxygen Flow Rate 2 06/19/24 05:56 BMI result Body Mass Index 36.6 Neck Neck: Yes supple Resp Auscultation: clear to auscultation bilaterally Cardio Palpation: no palpable S3 Heart sounds: no rubs GI Palpation (GI): Soft to palpation Auscultation: normal bowel sounds Neuro Motor exam (neuro): no asterixis Results Lab Results 06/19/24 09:16 06/20/24 04:16 Lab results: Chemistry 06/19/24 06/19/24 06/19/24 07:32 14:37 22:13 Sodium 143 142 Potassium 5.8 H 5.8 H 4.7 Carbon Dioxide 16 L 21 L BUN 56 H 55 H Creatinine 1.83 H 1.91 H Calcium 8.4 D 8.3 L 06/20/24 04:16 Sodium 142 Potassium 5.0 Carbon Dioxide 22 BUN 59 H Creatinine 1.90 H Calcium 8.6 Hematology 06/19/24 09:16 WBC 10.7 Hgb 9.1 L Plt Count 299 Assessment and Plan (1) Acute kidney injury superimposed on chronic kidney disease: Status: Acute Plan 78-year-old man with MARJORIE superimposed on CKD. MARJORIE is primarily due to hypoperfusion. She has underlying CKD 3. No overt signs or symptoms of uremia. She has mild fluid overload. Agree with cautious diuresis. Keep her in negative fluid balance. Low-sodium diet. Continue overt nephrotoxic agents and hypotension. Adjust all medications to EGFR of less than 30 mL/minute. Anemia is multifactorial. She may need Epogen if hemoglobin stays less than 9 grams/deciliter. She will follow along with the team Procedures Date of Service Date of Service: 06/20/24
[2024-06-20] MEDS: gemfibroziL 600 MG TABLET PO ×2 (10:54→21:50)
--- NOTE | 2024-06-20 11:27 | MHC.CM.PN ---
CM met with Patient at bedside and addressed IMM with her, providing Patient with the original and a copy has been placed on the chart. Patient receives [facility] MOWs and home O2 from [facility]; home/resume said services is the goal and CM has initiated and will follow for dc planning. PCP is Dr. Neida Soto and Son/HCP/Robbie will transport to home. CM assisted Patient with the completion of a HCP; Patient named her Son/Robbie as her Agent.
--- NOTE | 2024-06-20 11:40 | PM.CNCAR ---
History of Present Illness History of Present Illness Date of Service: 06/20/24 Requesting physician: Beltran Barfield Consult reason: congestive heart failure Chief complaint: CHF, hyperkalemia Narrative: I was consulted to see Radhika in cardiology consultation today for acute hypoxemic respiratory failure related to heart failure. Patient is 78-year-old female with prior history of morbid obesity, sleep apnea, COPD, chronic anemia, hypertension, diabetes present hospital with progressive shortness of breath not able to breathe. Patient says this shortness of breath he has been happening over the last week or so. She has no significant leg edema. She sleeps in his semi reclining position and did not clearly complain of orthopnea. No clear PND. However shortness of breath with minimal exertion kept getting worse and she came to the emergency room. She had similar issues 3 years ago she was admitted with heart failure and she was prescribed diuretics but she stopped taking it couple years ago because of excessive diuresis. Since then she had done okay but now presents with shortness of breath. Findings consistent with elevated BNP and suggestive of CHF but also has bilateral atelectasis bilateral pleural effusion that could be contributing to hypoxemia. Underlying pneumonia can not be ruled out. She is currently getting broad-spectrum treatment along with antibiotics, diuretics, bronchodilators therapy. She also noted to be hyperkalemic in his currently getting Lokelma. Potassium to be follow-up. She has diuresed about 900 cc per continues to be short of breath as per her. Review of Systems Constitutional: Constitutional: Reports no additional constitutional complaints Cardiovascular: Cardiovascular: Denies chest pain, Denies leg edema, Denies lightheadedness, Denies Loss of Consciousness, Denies palpitations, Reports dyspnea and Reports dyspnea on exertion Respiratory: Respiratory: Reports dyspnea, Reports dyspnea on exertion and Reports wheezing Gastrointestinal: Gastrointestinal: Reports no additional gastrointestinal complaints Musculoskeletal: Musculoskeletal: Reports no additional musculoskeletal complaints Integumentary/Breasts: Skin/Breast: Reports system reviewed and no additional complaints, except as docu Endocrine: Endocrine: Denies palpitations Allergic/Immunologic: Allergic/Immunologic: Reports wheezing PMFSH Past Medical History Medical History MARJORIE (acute kidney injury) Left bundle branch block Morbid obesity Chronic pain syndrome Anxiety Pernicious anemia COPD (chronic obstructive pulmonary disease) CHF (congestive heart failure) Hypothyroidism Essential hypertension Diabetes mellitus Pure hypercholesterolemia Family History Family History Father CVD (cardiovascular disease) Mother No problems noted. Family/Other FH: mental illness Surgical History Surgical History H/O left knee surgery Deficient knowledge of leg surgery History of tonsillectomy and adenoidectomy History of appendectomy Social History Social History Household Members: Children Housing: House Do you presently have visiting nurse or other home services: Yes ([facility]) Alcohol intake: unknown Patient Tobacco Use Status: Former Tobacco user Tobacco use type: Cigarette e-Cigarette/Vaping Use: Never Used Second Hand Smoke Exposure: No service: No Current occupational status: disabled Cognitive needs: Yes Hearing needs: No Vision needs: No Meds Allergies Allergy/AdvReac Type Severity Reaction Status Date / Time ibuprofen [From Motrin] Allergy Unknown swelling Verified 06/19/24 05:59 codeine [CODEINE] AdvReac Unknown SLEEPY Verified 06/19/24 05:59 Active Medications: Current Medications Acetaminophen (Acetaminophen 325 Mg Tablet) 650 mg PO Q6H PRN PRN Reason: Pain, Mild (Pain Scale 1-3), fever or headache Albuterol/Ipratropium (Albuterol/Iprat 2.5/0.5mg 3 Ml Ampul.Neb) 3 ml INHALE RQ4H WHILE AWAKE [facility] Last Admin: 06/20/24 11:26 Dose: 3 ml Atorvastatin Calcium (Atorvastatin Calcium 40 Mg Tablet) 40 mg PO BEDTIME [facility] Last Admin: 06/19/24 20:06 Dose: 40 mg Calcium Carbonate (Calcium Carbonate 750 Mg Tab.Chew) 750 mg PO Q4H PRN PRN Reason: Heartburn Duloxetine HCl (Duloxetine Hcl 20 Mg Capsule.Dr) 20 mg PO DAILY [facility] Last Admin: 06/20/24 09:33 Dose: 20 mg Furosemide (Furosemide 40 Mg/4 Ml Vial) 40 mg IVPUSH BID@0900,1800 [facility]; Protocol Last Admin: 06/20/24 09:01 Dose: 40 mg Gemfibrozil (Gemfibrozil 600 Mg Tablet) 600 mg PO BID [facility] Last Admin: 06/20/24 10:54 Dose: 600 mg Glucose (Glucose Gel 15 Gm Gel..Gram.) 15 gm PO Q15M PRN; Protocol PRN Reason: per Hypoglycemia Standing Ord. Guaifenesin/Dextromethorphan (Guaifenesin Dm 200/20/10 Ml 10 Ml Syrup) 10 ml PO Q6H PRN PRN Reason: Cough Heparin Sodium (Porcine) (Heparin Sodium,Porcine 5,000 Unit/Ml Vial) 5,000 unit SUBCUT Q12H [facility] Last Admin: 06/20/24 01:02 Dose: 5,000 unit Azithromycin 500 mg/ Sodium (Chloride) 250 mls @ 125 mls/hr IV Q24H [facility] Last Admin: 06/20/24 08:55 Dose: 125 mls/hr Dextrose (D10) 250 mls @ 750 mls/hr IV Q15M PRN; Protocol PRN Reason: per Hypoglycemia Standing Ord. Ceftriaxone Sodium 1 gm/ (Sodium Chloride) 50 mls @ 100 mls/hr IV Q24H [facility] Last Admin: 06/20/24 08:58 Dose: 100 mls/hr Insulin Glargine (Insulin Glargine,Hum.Rec.Anlog 100 Unit/Ml 10 Ml Vial) 30 unit SUBCUT BEDTIME [facility] Last Admin: 06/19/24 20:07 Dose: 30 unit Insulin Human Lispro (Insulin Lispro 100 Unit/Ml 3 Ml Vial) 0 unit SUBCUT QIDACHS [facility]; Protocol Last Admin: 06/20/24 08:30 Dose: 2 unit Levothyroxine Sodium (Levothyroxine Sodium 200 Mcg Tablet) 200 mcg PO DAILY@0600 [facility] Last Admin: 06/20/24 06:45 Dose: 200 mcg Lorazepam (Lorazepam 0.5 Mg Tablet) 0.5 mg PO TID PRN PRN Reason: anxiety Last Admin: 06/19/24 20:06 Dose: 0.5 mg Magnesium Hydroxide (Milk Of Magnesia 30 Ml Oral.Susp) 30 ml PO DAILY PRN PRN Reason: Constipation Melatonin (Melatonin 3 Mg Tablet) 6 mg PO BEDTIME PRN PRN Reason: Insomnia Nystatin (Nystatin Powder 15 Gm Bottle) 1 appl TOPICAL TID [facility]; Protocol Ondansetron HCl (Ondansetron Hcl 4 Mg/2 Ml Vial) 4 mg IVPUSH Q8H PRN PRN Reason: Nausea and Vomiting Sodium Bicarbonate (Sodium Bicarbonate 650 Mg Tablet) 650 mg PO QID [facility] Last Admin: 06/20/24 09:01 Dose: 650 mg Sodium Chloride (0.9 % Sodium Chloride Flush 3 Ml Syringe) 3 ml IVFLUSH QSHIFT [facility] Last Admin: 06/20/24 07:42 Dose: Not Given Home Medications ?Medication ?Instructions ?Recorded ?Confirmed ?Last Taken ?Type insulin glargine 100 unit/mL (3 15 unit subcut BEDTIME 06/19/24 06/19/24 06/18/24 History mL) subcutaneous pen (Basaglar KwikPen U-100 Insulin) levothyroxine 200 mcg tablet 200 mcg PO DAILY@0600 06/19/24 06/19/24 06/18/24 History Physical Exam Vital Signs: Vital Signs: Last Vital Signs Temp 97.7 F 06/20/24 10:11 Pulse 68 06/20/24 11:26 Resp 20 06/20/24 11:26 BP 150/60 H 06/20/24 10:11 Pulse Ox 96 06/20/24 10:11 O2 Del Method Nasal Cannula 06/20/24 10:11 O2 Flow Rate 2 06/20/24 10:11 Oxygen Flow Rate 2 06/19/24 05:56 BMI result Body Mass Index 36.6 Const: General: cooperative, alert, awake and in distress mild and respiratory Nutritional Appearance: obese Orientation/consciousness: patient oriented x3 HEENT: Head: Yes normocephalic and Yes atraumatic Neck: Neck: Yes trachea midline, Yes supple and Yes JVD Resp: Effort & Inspection: normal respiratory effort and tachypneic Auscultation: wheezes and breath sounds absent (Both basis) Cardio: Jugular venous distension: JVD Rate: regular rate Rhythm: abnormal rhythm with ectopic beats Heart sounds: S1 normal heart sound present, S2 normal heart sound present, no click, no gallops, no murmurs and no rubs GI: Auscultation: normal bowel sounds Skin: General skin exam: no rashes or lesions noted Neuro: General: patient oriented x3 and no focal motor deficits Extrem: General: No clubbing, No cyanosis, Yes edema and Yes venous stasis dermatitis Objective Labs and Meds 06/19/24 09:16 06/20/24 04:16 Lab results: Laboratory Results - last 24 hr 06/19/24 06/19/24 06/19/24 13:39 14:11 14:37 Sodium 142 Potassium 5.8 H Chloride 111 H Carbon Dioxide 21 L Anion Gap 16 BUN 55 H Creatinine 1.91 H Estim Creat Clear Calc 29.2 Estimated GFR 26 POC Glucose 482 H* Random Glucose 611 H* Estimat Average Glucose Hemoglobin A1c % Calcium 8.3 L Magnesium Troponin I High Sens 12.1 06/19/24 06/19/24 06/19/24 15:12 15:57 18:15 Sodium Potassium Chloride Carbon Dioxide Anion Gap BUN Creatinine Estim Creat Clear Calc Estimated GFR POC Glucose 580 H* 520 H* 399 H* Random Glucose Estimat Average Glucose Hemoglobin A1c % Calcium Magnesium Troponin I High Sens 06/19/24 06/19/24 06/19/24 19:15 21:10 22:13 Sodium Potassium 4.7 Chloride Carbon Dioxide Anion Gap BUN Creatinine Estim Creat Clear Calc Estimated GFR POC Glucose 263 H 222 H Random Glucose Estimat Average Glucose Hemoglobin A1c % Calcium Magnesium Troponin I High Sens 06/20/24 06/20/24 04:16 07:45 Sodium 142 Potassium 5.0 Chloride 109 H Carbon Dioxide 22 Anion Gap 16 BUN 59 H Creatinine 1.90 H Estim Creat Clear Calc 29.4 Estimated GFR 26 POC Glucose 185 H Random Glucose 100 Estimat Average Glucose 197 Hemoglobin A1c % 8.5 H Calcium 8.6 Magnesium 2.2 Troponin I High Sens Assessment and Plan (1) Acute exacerbation of CHF (congestive heart failure): Status: Acute Acute hypoxemic respiratory failure with component of acute congestive heart failure but also reduced pulmonary capacity related to atelectasis and bilateral pleural effusion. Clinically still appears to be fluid overloaded. Continue with IV diuresis. Strict intake and output chart needs to be pursued. Continue monitor renal function as well as electrolytes and BNP. Management of heart failure was discussed importance of diuretic therapy on long-term basis were discussed. She says she will think about it. Continue to support underlying pulmonary issues and would suggest incentive pulmonary spirometry. Out of bed to chair. Continue supportive care and bronchodilators therapy. Politics being prescribed by hospitalist team at this point time. Will repeat echocardiogram. Overall high risk for recurrent hospitalization. Will follow with you Procedures Date of Service Date of Service: 06/20/24
[2024-06-20 11:45] LABS: Glucose, Whole Blood 194 mg/dL (60-115)
--- NOTE | 2024-06-20 12:45 | HO.SKINPHOTO ---
Location: Coccyx Category: Location: Right foot Category: Location: Left foot Category: Location: Category: Location: Category: Stage: Length: Width: Depth: cm Location: Category: Stage: Length: Width: Depth: cm
--- NOTE | 2024-06-20 15:38 | HO.PM.IMPN ---
Subjective Subjective Date of Service: 06/20/24 Interval History: chf execerbation, ckd. Review of Systems sob seems similar has dry cough no fever or chills Physical Exam Vital Signs: Vital Signs: Last Vital Signs Temp 97.9 F 06/20/24 12:00 Pulse 66 06/20/24 15:12 Resp 20 06/20/24 15:12 BP 156/60 H 06/20/24 12:00 Pulse Ox 92 06/20/24 12:00 O2 Del Method Nasal Cannula 06/20/24 12:00 O2 Flow Rate 2 06/20/24 12:00 Oxygen Flow Rate 2 06/19/24 05:56 BMI result Body Mass Index 36.6 Appearance: Alert.? Oriented X3.?. cvs: rrr, [id number] . res: air entry somewhat diminshed ,has base rales . abd: no rebound or guarding ,nt, bs present. ext pulses present , no cyanosis ,2+ edema neuro: axo3 , nonfocal. Objective Data Active Medications Acetaminophen (Acetaminophen 325 Mg Tablet) 650 mg PO Q6H PRN PRN Reason: Pain, Mild (Pain Scale 1-3), fever or headache Albuterol/Ipratropium (Albuterol/Iprat 2.5/0.5mg 3 Ml Ampul.Neb) 3 ml INHALE RQ4H WHILE AWAKE [facility] Last Admin: 06/20/24 15:12 Dose: 3 ml Documented By: RADHA Atorvastatin Calcium (Atorvastatin Calcium 40 Mg Tablet) 40 mg PO BEDTIME [facility] Last Admin: 06/19/24 20:06 Dose: 40 mg Documented By: BUD Calcium Carbonate (Calcium Carbonate 750 Mg Tab.Chew) 750 mg PO Q4H PRN PRN Reason: Heartburn Duloxetine HCl (Duloxetine Hcl 20 Mg Capsule.Dr) 20 mg PO DAILY [facility] Last Admin: 06/20/24 09:33 Dose: 20 mg Documented By: COLETTE Furosemide (Furosemide 40 Mg/4 Ml Vial) 40 mg IVPUSH BID@0900,1800 [facility]; Protocol Last Admin: 06/20/24 09:01 Dose: 40 mg Documented By: COLETTE Gemfibrozil (Gemfibrozil 600 Mg Tablet) 600 mg PO BID [facility] Last Admin: 06/20/24 10:54 Dose: 600 mg Documented By: AMANDA Glucose (Glucose Gel 15 Gm Gel..Gram.) 15 gm PO Q15M PRN; Protocol PRN Reason: per Hypoglycemia Standing Ord. Guaifenesin/Dextromethorphan (Guaifenesin Dm 200/20/10 Ml 10 Ml Syrup) 10 ml PO Q6H PRN PRN Reason: Cough Heparin Sodium (Porcine) (Heparin Sodium,Porcine 5,000 Unit/Ml Vial) 5,000 unit SUBCUT Q12H [facility] Last Admin: 06/20/24 14:31 Dose: 5,000 unit Documented By: AMANDA Azithromycin 500 mg/ Sodium (Chloride) 250 mls @ 125 mls/hr IV Q24H [facility] Last Infusion: 06/20/24 12:11 Dose: Infused Documented By: AMANDA Dextrose (D10) 250 mls @ 750 mls/hr IV Q15M PRN; Protocol PRN Reason: per Hypoglycemia Standing Ord. Ceftriaxone Sodium 1 gm/ (Sodium Chloride) 50 mls @ 100 mls/hr IV Q24H [facility] Last Infusion: 06/20/24 09:28 Dose: Infused Documented By: AMANDA Insulin Glargine (Insulin Glargine,Hum.Rec.Anlog 100 Unit/Ml 10 Ml Vial) 30 unit SUBCUT BEDTIME [facility] Last Admin: 06/19/24 20:07 Dose: 30 unit Documented By: BUD Insulin Human Lispro (Insulin Lispro 100 Unit/Ml 3 Ml Vial) 0 unit SUBCUT QIDACHS [facility]; Protocol Last Admin: 06/20/24 12:12 Dose: 2 unit Documented By: AMANDA Levothyroxine Sodium (Levothyroxine Sodium 200 Mcg Tablet) 200 mcg PO DAILY@0600 [facility] Last Admin: 06/20/24 06:45 Dose: 200 mcg Documented By: RIVER Lorazepam (Lorazepam 0.5 Mg Tablet) 0.5 mg PO TID PRN PRN Reason: anxiety Last Admin: 06/20/24 14:31 Dose: 0.5 mg Documented By: AMANDA Magnesium Hydroxide (Milk Of Magnesia 30 Ml Oral.Susp) 30 ml PO DAILY PRN PRN Reason: Constipation Melatonin (Melatonin 3 Mg Tablet) 6 mg PO BEDTIME PRN PRN Reason: Insomnia Nystatin (Nystatin Powder 15 Gm Bottle) 1 appl TOPICAL TID [facility]; Protocol Ondansetron HCl (Ondansetron Hcl 4 Mg/2 Ml Vial) 4 mg IVPUSH Q8H PRN PRN Reason: Nausea and Vomiting Sodium Bicarbonate (Sodium Bicarbonate 650 Mg Tablet) 650 mg PO QID [facility] Last Admin: 06/20/24 14:31 Dose: 650 mg Documented By: AMANDA Sodium Chloride (0.9 % Sodium Chloride Flush 3 Ml Syringe) 3 ml IVFLUSH QSHIFT [facility] Last Admin: 06/20/24 07:42 Dose: Not Given Documented By: COLETTE Non-Admin Reason: Previously Administered Labs 06/19/24 09:16 06/20/24 04:16 Labs: Laboratory Results - last 24 hr 06/19/24 06/19/24 06/19/24 15:57 18:15 19:15 Anion Gap Estim Creat Clear Calc Estimated GFR POC Glucose 520 H* 399 H* 263 H Random Glucose Estimat Average Glucose Hemoglobin A1c % Calcium Magnesium 06/19/24 06/20/24 06/20/24 21:10 04:16 07:45 Anion Gap 16 Estim Creat Clear Calc 29.4 Estimated GFR 26 POC Glucose 222 H 185 H Random Glucose 100 Estimat Average Glucose 197 Hemoglobin A1c % 8.5 H Calcium 8.6 Magnesium 2.2 06/20/24 11:41 Anion Gap Estim Creat Clear Calc Estimated GFR POC Glucose 194 H Random Glucose Estimat Average Glucose Hemoglobin A1c % Calcium Magnesium Microbiology Microbiology Results: Microbiology 06/19/24 08:27 Blood Culture - Preliminary Blood - Venous No growth after 24 hours. 06/19/24 07:32 Blood Culture - Preliminary Blood - Venous No growth after 24 hours. Assessment and Plan (1) Acute exacerbation of CHF (congestive heart failure): Status: Acute (2) Acute kidney injury superimposed on chronic kidney disease: Status: Acute Assessment and Plan: 78-year-old female with a PMH significant for?COPD, HFpEF, pernicious anemia, HTN, HLD insulin-dependent type 2 diabetes with neuropathy, CKD3, hypothyroidism, and mood disorder who presents to the ED with increasing SOB and RIZVI x2-3 days, worse this morning. Pt will be admitted to the hospital for treatment and further evaluation acute HFpEF exacerbation and hyperkalemia. Acute HFpEF exacerbation also has b/l atelactasis Pt with SOB, RIZVI, LLE, nonproductive cough Elevated BNP, CT with bilateral pleural effusions Likely secondary to medication noncompliance: Patient has not been taking diuretics for past 2+ years Lasix 40 mg b.i.d. Echocardiogram Follow lyMag elba, I/O neg 1.35liter Daily weights, low-salt diet Cardiology consult-noted -cotninue iv diuretics , moniter i/o Monitor on telemetry CKD 3 with Hyperkalemia given lokelma , nebs and insulin. Low phosphorus, low potassium diet neohrology eval ?pneumonia CT with question of developing infiltrates Pt afebrile, no leukocytosis, nonproductive cough Clinically does not appear to have pneumonia, no sepsis Will continue azithromycin for pleiotropic effects, started 06/19/2024 COPD Not in acute exacerbation DuoNebs for SOB Guaifenesin for cough Continue home inhalers HTN Continue amlodipine HLD Continue statin, gemfibrozil Insulin-dependent type 2 diabetes Sliding scale insulin, Lantus Continue glipizide Diabetic diet Full Code DVT Prophylaxis: Heparin ongoing hospitalization need for treatment of?acute CHF exacerbation and hypokalemia that will require administration of IV diuretics, close monitoring of cardiac function and electrolytes, and specialist consultation with Cardiology and Nephrology. Quality Stroke Does the patient have a stroke diagnosis?: No VTE Prior VTE?: No VTE Risk Level:: Medical - moderate - high VTE Device Contraindication: Treatment Not Indicated VTE Drug Contraindication: N/A - Med Ordered
[2024-06-20 17:02] LABS: Glucose, Whole Blood 143 mg/dL (60-115)
[2024-06-20] MEDS: Nystatin Powder 15 GM BOTTLE 1 APPL TOPICAL ×2 (17:06→21:54)
[2024-06-20 19:50] LABS: Glucose, Whole Blood 207 mg/dL (60-115)
[2024-06-20] MEDS: Insulin Glargine,Hum.rec.anlog 100 UNIT/ML 10 ML VIAL 30 UNIT SUBCUT (21:49)
[2024-06-20] MEDS: Atorvastatin Calcium 40 MG TABLET PO (21:50)
[2024-06-21] VITALS (10 sets, daily range): BP systolic 142–173; BP diastolic 56–82; PULSE 62–75; RESP 19–22; TEMP 36.1–36.7; O2SAT 92–100; BMI 37.8
[2024-06-21] MEDS: Levothyroxine Sodium 200 MCG TABLET PO (05:52)
[2024-06-21 06:58] LABS: Anion Gap 15 (12-20); Blood Urea Nitrogen 62 mg/dL (9-16); Carbon Dioxide 29 mmol/L (22-29); Chloride 105 mmol/L (96-108); Creatinine Clr Calc Pharmacy 29.2; Estimated Glomerular Filt Rate 25; Glucose Random 78 mg/dL (60-115); Potassium 4.9 mmol/L (3.3-5.1); Sodium 144 mmol/L (135-145)
[2024-06-21 07:09] LABS: Glucose, Whole Blood 65 mg/dL (60-115)
[2024-06-21 07:43] LABS: Glucose, Whole Blood 126 mg/dL (60-115)
[2024-06-21] MEDS: Albuterol/Iprat 2.5/0.5MG 3 ML AMPUL.NEB INHALE ×4 (07:50→19:12)
[2024-06-21] MEDS: cefTRIAXone sodium 1 GM in 0.9 % Sodium Chloride 50 ML IV (08:30)
[2024-06-21] MEDS: LORazepam 0.5 MG TABLET PO ×2 (08:39→15:55)
--- NOTE | 2024-06-21 09:25 | MHC.CM.PN ---
PT is recommending [facility] and [facility] is the first choice facility; CM will follow.
[2024-06-21] MEDS: 0.9 % Sodium Chloride Flush 3 ML SYRINGE IVFLUSH ×2 (09:38→17:07)
[2024-06-21] MEDS: Azithromycin 500 MG in 0.9 % Sodium Chloride 250 ML 125 MG IV (09:38)
[2024-06-21] MEDS: DULoxetine HCl 20 MG CAPSULE.DR PO (09:39)
[2024-06-21] MEDS: Nystatin Powder 15 GM BOTTLE 1 APPL TOPICAL ×2 (09:39→21:03)
[2024-06-21] MEDS: Sodium Bicarbonate 650 MG TABLET PO ×4 (09:39→21:02)
[2024-06-21] MEDS: gemfibroziL 600 MG TABLET PO ×2 (09:39→21:02)
[2024-06-21] MEDS: Furosemide 40 MG/4 ML VIAL IVPUSH (09:40)
--- NOTE | 2024-06-21 10:03 | PM.PNCARD ---
Subjective Subjective Date of Service: 06/21/24 Principal diagnosis: CHF, elevated creatinine. Interval history: Patient has diuresed about 3.6 L negative balance. Continues to be short of breath. Remains her diuretics and antibiotics. Complains of cough. Review of Systems Constitutional: Reports no additional constitutional complaints Cardiovascular: Denies chest pain, Denies lightheadedness, Denies Loss of Consciousness, Denies palpitations, Reports dyspnea and Reports dyspnea on exertion Respiratory: Reports cough, Reports dyspnea and Reports dyspnea on exertion Endocrine: Denies palpitations Physical Exam Vital Signs: Last Vital Signs Temp 97.1 F 06/21/24 07:08 Pulse 65 06/21/24 07:51 Resp 20 06/21/24 07:51 BP 170/63 H 06/21/24 07:08 Pulse Ox 95 06/21/24 07:08 O2 Del Method Nasal Cannula 06/21/24 07:08 O2 Flow Rate 2 06/21/24 07:08 Oxygen Flow Rate 2 06/19/24 05:56 BMI result Body Mass Index 37.8 Const General: cooperative, alert, awake and in distress mild and respiratory Nutritional Appearance: obese Orientation/consciousness: patient oriented x3 HEENT Head: Yes normocephalic and Yes atraumatic Neck Neck: Yes trachea midline, Yes supple and Yes JVD Resp Effort & Inspection: normal respiratory effort and tachypneic Auscultation: wheezes and breath sounds absent (Both basis) Cardio Jugular venous distension: JVD Rate: regular rate Rhythm: abnormal rhythm with ectopic beats Heart sounds: S1 normal heart sound present, S2 normal heart sound present, no click, no gallops, no murmurs and no rubs GI Auscultation: normal bowel sounds Skin General skin exam: no rashes or lesions noted Neuro General: patient oriented x3 and no focal motor deficits Extrem General: No clubbing, No cyanosis, Yes edema and Yes venous stasis dermatitis Objective Labs and Meds 06/19/24 09:16 06/21/24 06:11 Lab results: Laboratory Results - last 24 hr 06/20/24 06/20/24 06/20/24 11:41 16:51 19:29 Sodium Potassium Chloride Carbon Dioxide Anion Gap BUN Creatinine Estim Creat Clear Calc Estimated GFR POC Glucose 194 H 143 H 207 H Random Glucose Calcium 06/21/24 06/21/24 06/21/24 06:11 06:51 07:40 Sodium 144 Potassium 4.9 Chloride 105 Carbon Dioxide 29 Anion Gap 15 BUN 62 H Creatinine 1.95 H Estim Creat Clear Calc 29.2 Estimated GFR 25 POC Glucose 65 126 H Random Glucose 78 Calcium 8.0 L D Progress Note: A&P Assessment and plan (1) Acute exacerbation of CHF (congestive heart failure): Status: Acute Assessment and Plan: Acute congestive heart failure as well as pleural effusion and atelectasis. Continue incentive spirometry. Continue IV diuresis. Strict intake and output chart needs to be pursued. Echo consistent with severe right atrial elevated pressures along with LV diastolic dysfunction. Add Jardiance 10 mg to her regimen. Will continue to follow with you Time Spent With Patient Time: Total time managing care of this patient today ____ minutes. Progress Note: Quality Stroke Does the patient have a stroke diagnosis?: No Procedures Date of Service Date of Service: 06/21/24
[2024-06-21 10:37] LABS: B Type Natriuretic Peptide 254 pg/mL (<100)
[2024-06-21 10:59] LABS: Glucose, Whole Blood 152 mg/dL (60-115)
[2024-06-21] MEDS: Heparin Sodium,Porcine 5,000 UNIT/ML VIAL 5000 UNIT SUBCUT (12:13)
[2024-06-21] MEDS: Insulin Lispro 100 UNIT/ML 3 ML VIAL SUBCUT ×3 (12:13→21:01)
--- NOTE | 2024-06-21 12:19 | P.PNIM_ITS ---
Subjective Subjective Date of Service: 06/21/24 Interval History: chf execerbation, ckd. Review of Systems sob seomewhat improving i/o 3.8 liter neg leg edema also somewhat improving Physical Exam 2 Vital Signs: Vital Signs: Last Vital Signs Temp 97.5 F 06/21/24 11:08 Pulse 67 06/21/24 11:17 Resp 20 06/21/24 11:17 BP 170/74 H 06/21/24 11:08 Pulse Ox 93 06/21/24 11:08 O2 Del Method Nasal Cannula 06/21/24 11:08 O2 Flow Rate 2 06/21/24 11:08 Oxygen Flow Rate 2 06/19/24 05:56 BMI result Body Mass Index 37.8 Appearance: Alert.? Oriented X3.? cvs: rrr, [id number] . res: air entry somewhat diminshed ,has base rales . abd: no rebound or guarding ,nt, bs present. ext pulses present , no cyanosis ,1+ edema neuro: axo3 , nonfocal. Objective Data Active Medications Acetaminophen (Acetaminophen 325 Mg Tablet) 650 mg PO Q6H PRN PRN Reason: Pain, Mild (Pain Scale 1-3), fever or headache Albuterol/Ipratropium (Albuterol/Iprat 2.5/0.5mg 3 Ml Ampul.Neb) 3 ml INHALE RQ4H WHILE AWAKE [facility] Last Admin: 06/21/24 11:16 Dose: 3 ml Documented By: KATHLEEN Atorvastatin Calcium (Atorvastatin Calcium 40 Mg Tablet) 40 mg PO BEDTIME [facility] Last Admin: 06/20/24 21:50 Dose: 40 mg Documented By: XIOMY Calcium Carbonate (Calcium Carbonate 750 Mg Tab.Chew) 750 mg PO Q4H PRN PRN Reason: Heartburn Duloxetine HCl (Duloxetine Hcl 20 Mg Capsule.) 20 mg PO DAILY [facility] Last Admin: 06/21/24 09:39 Dose: 20 mg Documented By: DENZEL Furosemide (Furosemide 40 Mg/4 Ml Vial) 40 mg IVPUSH DAILY [facility]; Protocol Last Admin: 06/21/24 09:40 Dose: 40 mg Documented By: DENZEL Gemfibrozil (Gemfibrozil 600 Mg Tablet) 600 mg PO BID [facility] Last Admin: 06/21/24 09:39 Dose: 600 mg Documented By: DENZEL Glucose (Glucose Gel 15 Gm Gel..Gram.) 15 gm PO Q15M PRN; Protocol PRN Reason: per Hypoglycemia Standing Ord. Guaifenesin/Dextromethorphan (Guaifenesin Dm 200/20/10 Ml 10 Ml Syrup) 10 ml PO Q6H PRN PRN Reason: Cough Heparin Sodium (Porcine) (Heparin Sodium,Porcine 5,000 Unit/Ml Vial) 5,000 unit SUBCUT Q12H [facility] Last Admin: 06/21/24 12:13 Dose: 5,000 unit Documented By: DENZEL Azithromycin 500 mg/ Sodium (Chloride) 250 mls @ 125 mls/hr IV Q24H [facility] Last Infusion: 06/21/24 11:58 Dose: Infused Documented By: DENZEL Dextrose (D10) 250 mls @ 750 mls/hr IV Q15M PRN; Protocol PRN Reason: per Hypoglycemia Standing Ord. Ceftriaxone Sodium 1 gm/ (Sodium Chloride) 50 mls @ 100 mls/hr IV Q24H [facility] Last Infusion: 06/21/24 09:47 Dose: Infused Documented By: DENZEL Insulin Glargine (Insulin Glargine,Hum.Rec.Anlog 100 Unit/Ml 10 Ml Vial) 30 unit SUBCUT BEDTIME [facility] Last Admin: 06/20/24 21:49 Dose: 30 unit Documented By: XIOMY Insulin Human Lispro (Insulin Lispro 100 Unit/Ml 3 Ml Vial) 0 unit SUBCUT QIDACHS [facility]; Protocol Last Admin: 06/21/24 12:13 Dose: 2 unit Documented By: DENZEL Levothyroxine Sodium (Levothyroxine Sodium 200 Mcg Tablet) 200 mcg PO DAILY@0600 [facility] Last Admin: 06/21/24 05:52 Dose: 200 mcg Documented By: CINTHIA-RIVZOYA Lorazepam (Lorazepam 0.5 Mg Tablet) 0.5 mg PO TID PRN PRN Reason: anxiety Last Admin: 06/21/24 08:39 Dose: 0.5 mg Documented By: DENZEL Magnesium Hydroxide (Milk Of Magnesia 30 Ml Oral.Susp) 30 ml PO DAILY PRN PRN Reason: Constipation Melatonin (Melatonin 3 Mg Tablet) 6 mg PO BEDTIME PRN PRN Reason: Insomnia Nystatin (Nystatin Powder 15 Gm Bottle) 1 appl TOPICAL TID [facility]; Protocol Last Admin: 06/21/24 09:39 Dose: 1 appl Documented By: DENZEL Ondansetron HCl (Ondansetron Hcl 4 Mg/2 Ml Vial) 4 mg IVPUSH Q8H PRN PRN Reason: Nausea and Vomiting Sodium Bicarbonate (Sodium Bicarbonate 650 Mg Tablet) 650 mg PO QID [facility] Last Admin: 06/21/24 12:13 Dose: 650 mg Documented By: DENZEL Sodium Chloride (0.9 % Sodium Chloride Flush 3 Ml Syringe) 3 ml IVFLUSH QSHIFT [facility] Last Admin: 06/21/24 09:38 Dose: 3 ml Documented By: DENZEL Labs 06/19/24 09:16 06/21/24 06:11 Labs: Laboratory Results - last 24 hr 06/20/24 06/20/24 06/21/24 16:51 19:29 06:11 Anion Gap 15 Estim Creat Clear Calc 29.2 Estimated GFR 25 POC Glucose 143 H 207 H Random Glucose 78 Calcium 8.0 L D B-Natriuretic Peptide 06/21/24 06/21/24 06/21/24 06:51 07:40 09:02 Anion Gap Estim Creat Clear Calc Estimated GFR POC Glucose 65 126 H Random Glucose Calcium B-Natriuretic Peptide 254 H 06/21/24 10:56 Anion Gap Estim Creat Clear Calc Estimated GFR POC Glucose 152 H Random Glucose Calcium B-Natriuretic Peptide Microbiology Microbiology Results: Microbiology 06/19/24 08:27 Blood Culture - Preliminary Blood - Venous No growth after 48 hours. 06/19/24 07:32 Blood Culture - Preliminary Blood - Venous No growth after 48 hours. Assessment and Plan (1) Acute exacerbation of CHF (congestive heart failure): Status: Acute (2) Acute kidney injury superimposed on chronic kidney disease: Status: Acute Assessment and Plan: 78-year-old female with a PMH significant for?COPD, HFpEF, pernicious anemia, HTN, HLD insulin-dependent type 2 diabetes with neuropathy, CKD3, hypothyroidism, and mood disorder who presents to the ED with increasing SOB and RIZVI x2-3 days, worse this morning. Pt will be admitted to the hospital for treatment and further evaluation acute HFpEF exacerbation and hyperkalemia. Acute HFpEF exacerbation also has b/l atelactasis with activity SOB, nonproductive cough Likely secondary to medication noncompliance: Patient has not been taking diuretics for past 2+ years CT with bilateral pleural effusions i/o 3.8 liter negative ,bnp improving echo: Normal LV ejection fraction 60 65% with pseudonormal filling pattern At least mildly dilated left atrium Mild calcific aortic stenosis Heavy mitral annular calcification along with mitral valve leaflet calcification with possible mild mitral stenosis Severely elevated right ventricular systolic pressure significant elevated right atrial pressures Mildly dilated ascending aorta plan: adjusted Lasix 40 mg daily . Daily weights, low-salt diet Cardiology consult-noted -continue iv diuretics , moniter i/o Monitor on telemetry possible shala on CKD 3 with Hyperkalemia given lokelma , nebs and insulin on admission -hyperkalemia resolved. Low phosphorus, low potassium diet neohrology eval noted -moniter renal function/electrolytes ,avoid nephrotoxin ?pneumonia CT with question of developing infiltrates Pt afebrile, no leukocytosis, nonproductive cough no sepsis continue ceftriaxone+ azithromycin , started 06/19/2024 COPD Not in acute exacerbation DuoNebs for SOB Guaifenesin for cough Continue home inhalers HTN Continue amlodipine HLD Continue statin, gemfibrozil Insulin-dependent type 2 diabetes Sliding scale insulin, Lantus Continue glipizide Diabetic diet Full Code DVT Prophylaxis: Heparin ongoing hospitalization need for treatment of?acute CHF exacerbation and pneumonia that will require administration of IV diuretics, close monitoring of cardiac function and electrolytes,iv antibiotics. Quality Stroke Does the patient have a stroke diagnosis?: No VTE Prior VTE?: No VTE Risk Level:: Medical - moderate - high VTE Device Contraindication: Treatment Not Indicated VTE Drug Contraindication: N/A - Med Ordered
--- NOTE | 2024-06-21 14:09 | P.PNNP_ITS ---
Subjective Subjective Date of Service: 06/21/24 Principal diagnosis: CHF, elevated creatinine. Interval history: chf execerbation, ckd. Physical Exam 2 Vital Signs: Vital Signs: Last Vital Signs Temp 97.5 F 06/21/24 11:08 Pulse 67 06/21/24 11:17 Resp 20 06/21/24 11:17 BP 170/74 H 06/21/24 11:08 Pulse Ox 93 06/21/24 11:08 O2 Del Method Nasal Cannula 06/21/24 11:08 O2 Flow Rate 2 06/21/24 11:08 Oxygen Flow Rate 2 06/19/24 05:56 BMI result Body Mass Index 37.8 Neck: Neck: Yes supple Resp: Auscultation: clear to auscultation bilaterally Cardio: Palpation: no palpable S3 Heart sounds: no rubs GI: Palpation (GI): Soft to palpation Auscultation: normal bowel sounds Neuro: Motor exam (neuro): no asterixis Objective Data Labs 06/19/24 09:16 06/21/24 06:11 Labs: Laboratory Results - last 24 hr 06/20/24 06/20/24 06/21/24 16:51 19:29 06:11 Sodium 144 Potassium 4.9 Chloride 105 Carbon Dioxide 29 Anion Gap 15 BUN 62 H Creatinine 1.95 H Estim Creat Clear Calc 29.2 Estimated GFR 25 POC Glucose 143 H 207 H Random Glucose 78 Calcium 8.0 L D B-Natriuretic Peptide 06/21/24 06/21/24 06/21/24 06:51 07:40 09:02 Sodium Potassium Chloride Carbon Dioxide Anion Gap BUN Creatinine Estim Creat Clear Calc Estimated GFR POC Glucose 65 126 H Random Glucose Calcium B-Natriuretic Peptide 254 H 06/21/24 10:56 Sodium Potassium Chloride Carbon Dioxide Anion Gap BUN Creatinine Estim Creat Clear Calc Estimated GFR POC Glucose 152 H Random Glucose Calcium B-Natriuretic Peptide Microbiology Microbiology Results: Microbiology 06/19/24 08:27 Blood - Venous Blood Culture - Preliminary No growth after 48 hours. 06/19/24 07:32 Blood - Venous Blood Culture - Preliminary No growth after 48 hours. Procedures Date of Service Date of Service: 06/21/24 Assessment & Plan Assessment and plan (1) Acute kidney injury superimposed on chronic kidney disease: Status: Acute Plan 78-year-old man with MARJORIE superimposed on CKD. MARJORIE is primarily due to hypoperfusion. She has underlying CKD 3. No overt signs or symptoms of uremia. She has mild fluid overload. Agree with cautious diuresis. Keep her in negative fluid balance. Low-sodium diet. Continue to avoid nephrotoxic agents and hypotension. Adjust all medications to EGFR of less than 30 mL/minute. Anemia is multifactorial. She may need Epogen if hemoglobin stays less than 9 grams/deciliter. She will follow along with the team Time Spent With Patient Time: Total time managing care of this patient today ____ minutes. Progress Note: Quality Stroke Does the patient have a stroke diagnosis?: No
[2024-06-21 16:21] LABS: Glucose, Whole Blood 191 mg/dL (60-115)
--- NOTE | 2024-06-21 16:22 | HO.WOUND ---
Wound Consult: Initial 78 yr old? Female admitted to [facility] on 06/19/24 - See progress notes and H&P for detailed history.? Wound consult placed for BLE and Coccyx wound.? Patient agreeable to assessment and photo documentation.? Sacrum - Right Etiology: ?Deep Tissue Injury ?Present on Admission Measurements: see charting for detailed measurements Wound Bed: dark nonblanchable tissue purple and epidermal peeling noted Drainage / Odor: None Edges: ? irregular Patria wound: ? red pink blanchable tissue No Induration, Fluctuance or Warmth noted Pain: denies Goals of Treatment: ? Off Load and Protect with foam dressing Bilateral lower legs noted for venous dermatitis - red dark hemosiderin staining noted - both plantar area have thick calluses noted - no open wound noted - no topical interventions needed at this time. Recommendations: 1. Turn and Reposition every 2 hours and as needed for patient comfort.? Use pillows or wedges to support off loading positions. 2. Off Load all bony prominences with use of pillows and heel boots if needed.? Apply Preventative foams where needed. ? 3. Monitor for incontinence and moisture control, use barrier creams when needed for prevention and treatment. 4. Provide adequate and supplemental nutrition.? 5. Order low air loss mattress. 6. When applicable maintain blood glucose levels per Providers order. 7. Sacrum - Routine cleansing - Off Load Pressure - Apply sacral foam dressing - peel back and assess Q shift - Change every 5 days. Re-consult wound care Nurse for wound deterioration or wound changes.
[2024-06-21 19:57] LABS: Glucose, Whole Blood 176 mg/dL (60-115)
[2024-06-21] MEDS: Insulin Glargine,Hum.rec.anlog 100 UNIT/ML 10 ML VIAL 30 UNIT SUBCUT (21:00)
[2024-06-21] MEDS: Melatonin 3 MG TABLET 6 MG PO (21:02)
[2024-06-21] MEDS: Atorvastatin Calcium 40 MG TABLET PO (21:02)
[2024-06-22] VITALS (13 sets, daily range): BP systolic 134–161; BP diastolic 51–79; PULSE 61–77; RESP 18–20; TEMP 35.8–36.7; O2SAT 91–100; BMI 37.8
[2024-06-22] MEDS: 0.9 % Sodium Chloride Flush 3 ML SYRINGE IVFLUSH ×3 (00:50→16:14)
[2024-06-22] MEDS: Heparin Sodium,Porcine 5,000 UNIT/ML VIAL 5000 UNIT SUBCUT ×2 (01:39→12:46)
[2024-06-22] MEDS: LORazepam 0.5 MG TABLET PO ×2 (01:48→10:27)
[2024-06-22] MEDS: Levothyroxine Sodium 200 MCG TABLET PO (05:41)
[2024-06-22] MEDS: Albuterol/Iprat 2.5/0.5MG 3 ML AMPUL.NEB INHALE ×4 (05:44→19:14)
[2024-06-22 07:10] LABS: Glucose, Whole Blood 65 mg/dL (60-115)
[2024-06-22 07:17] LABS: Anion Gap 17 (12-20); Blood Urea Nitrogen 60 mg/dL (9-16); Calcium 7.8 mg/dL (8.4-10.2); Carbon Dioxide 31 mmol/L (22-29); Chloride 103 mmol/L (96-108); Creatinine Clr Calc Pharmacy 31.1; Estimated Glomerular Filt Rate 27; Glucose Random 68 mg/dL (60-115); Potassium 4.8 mmol/L (3.3-5.1); Sodium 146 mmol/L (135-145)
[2024-06-22] MEDS: Furosemide 40 MG/4 ML VIAL IVPUSH (08:59)
[2024-06-22] MEDS: DULoxetine HCl 20 MG CAPSULE.DR PO (09:00)
[2024-06-22] MEDS: gemfibroziL 600 MG TABLET PO ×2 (09:00→22:00)
[2024-06-22] MEDS: Sodium Bicarbonate 650 MG TABLET PO ×4 (09:00→22:01)
[2024-06-22] MEDS: Azithromycin 500 MG in 0.9 % Sodium Chloride 250 ML 125 MG IV (09:00)
--- NOTE | 2024-06-22 09:49 | HO.PM.IMPN ---
Subjective Subjective Date of Service: 06/22/24 Interval History: still sob Physical Exam Vital Signs: Vital Signs: Last Vital Signs Temp 98.1 F 06/22/24 07:33 Pulse 72 06/22/24 07:33 Resp 20 06/22/24 07:33 BP 161/72 H 06/22/24 08:59 Pulse Ox 93 06/22/24 07:33 O2 Del Method Nasal Cannula 06/22/24 07:33 O2 Flow Rate 2 06/22/24 07:33 Oxygen Flow Rate 2 06/19/24 05:56 BMI result Body Mass Index 37.8 Neck: Neck: Yes supple Resp: Auscultation: clear to auscultation bilaterally Cardio: Palpation: no palpable S3 Heart sounds: no rubs GI: Palpation (GI): Soft to palpation Auscultation: normal bowel sounds Neuro: Motor exam (neuro): no asterixis Objective Data Active Medications Acetaminophen (Acetaminophen 325 Mg Tablet) 650 mg PO Q6H PRN PRN Reason: Pain, Mild (Pain Scale 1-3), fever or headache Albuterol/Ipratropium (Albuterol/Iprat 2.5/0.5mg 3 Ml Ampul.Neb) 3 ml INHALE RQ4H WHILE AWAKE [facility] Last Admin: 06/22/24 05:44 Dose: 3 ml Documented By: VARSHA Atorvastatin Calcium (Atorvastatin Calcium 40 Mg Tablet) 40 mg PO BEDTIME [facility] Last Admin: 06/21/24 21:02 Dose: 40 mg Documented By: SANDRO Bumetanide (Bumetanide 1 Mg Tablet) 1 mg PO BID@0800,1700 [facility]; Protocol Calcium Carbonate (Calcium Carbonate 750 Mg Tab.Chew) 750 mg PO Q4H PRN PRN Reason: Heartburn Duloxetine HCl (Duloxetine Hcl 20 Mg Capsule.Dr) 20 mg PO DAILY [facility] Last Admin: 06/22/24 09:00 Dose: 20 mg Documented By: PERICO Gemfibrozil (Gemfibrozil 600 Mg Tablet) 600 mg PO BID [facility] Last Admin: 06/22/24 09:00 Dose: 600 mg Documented By: PERICO Glucose (Glucose Gel 15 Gm Gel..Gram.) 15 gm PO Q15M PRN; Protocol PRN Reason: per Hypoglycemia Standing Ord. Guaifenesin/Dextromethorphan (Guaifenesin Dm 200/20/10 Ml 10 Ml Syrup) 10 ml PO Q6H PRN PRN Reason: Cough Heparin Sodium (Porcine) (Heparin Sodium,Porcine 5,000 Unit/Ml Vial) 5,000 unit SUBCUT Q12H [facility] Last Admin: 06/22/24 01:39 Dose: 5,000 unit Documented By: SANDRO Azithromycin 500 mg/ Sodium (Chloride) 250 mls @ 125 mls/hr IV Q24H [facility] Last Admin: 06/22/24 09:00 Dose: 125 mls/hr Documented By: PERICO Dextrose (D10) 250 mls @ 750 mls/hr IV Q15M PRN; Protocol PRN Reason: per Hypoglycemia Standing Ord. Ceftriaxone Sodium 1 gm/ (Sodium Chloride) 50 mls @ 100 mls/hr IV Q24H [facility] Last Infusion: 06/21/24 09:47 Dose: Infused Documented By: DENZEL Insulin Glargine (Insulin Glargine,Hum.Rec.Anlog 100 Unit/Ml 10 Ml Vial) 30 unit SUBCUT BEDTIME [facility] Last Admin: 06/21/24 21:00 Dose: 30 unit Documented By: SANDRO Comments: Insulin Human Lispro (Insulin Lispro 100 Unit/Ml 3 Ml Vial) 0 unit SUBCUT QIDACHS [facility]; Protocol Last Admin: 06/22/24 07:13 Dose: Not Given Documented By: PERICO Non-Admin Reason: No Insulin Coverage Levothyroxine Sodium (Levothyroxine Sodium 200 Mcg Tablet) 200 mcg PO DAILY@0600 [facility] Last Admin: 06/22/24 05:41 Dose: 200 mcg Documented By: SANDRO Lorazepam (Lorazepam 0.5 Mg Tablet) 0.5 mg PO TID PRN PRN Reason: anxiety Last Admin: 06/22/24 01:48 Dose: 0.5 mg Documented By: SANDRO Magnesium Hydroxide (Milk Of Magnesia 30 Ml Oral.Susp) 30 ml PO DAILY PRN PRN Reason: Constipation Melatonin (Melatonin 3 Mg Tablet) 6 mg PO BEDTIME PRN PRN Reason: Insomnia Last Admin: 06/21/24 21:02 Dose: 6 mg Documented By: SANDRO Nystatin (Nystatin Powder 15 Gm Bottle) 1 appl TOPICAL TID [facility]; Protocol Last Admin: 06/21/24 21:03 Dose: 1 appl Documented By: SANDRO Ondansetron HCl (Ondansetron Hcl 4 Mg/2 Ml Vial) 4 mg IVPUSH Q8H PRN PRN Reason: Nausea and Vomiting Sodium Bicarbonate (Sodium Bicarbonate 650 Mg Tablet) 650 mg PO QID [facility] Last Admin: 06/22/24 09:00 Dose: 650 mg Documented By: PERICO Sodium Chloride (0.9 % Sodium Chloride Flush 3 Ml Syringe) 3 ml IVFLUSH QSHIFT [facility] Last Admin: 06/22/24 09:01 Dose: 3 ml Documented By: PERICO Labs 06/19/24 09:16 06/22/24 06:24 Labs: Laboratory Results - last 24 hr 06/21/24 06/21/24 06/21/24 09:02 10:56 16:16 Anion Gap Estim Creat Clear Calc Estimated GFR POC Glucose 152 H 191 H Random Glucose Calcium B-Natriuretic Peptide 254 H 06/21/24 06/22/24 06/22/24 19:46 06:24 07:06 Anion Gap 17 Estim Creat Clear Calc 31.1 Estimated GFR 27 POC Glucose 176 H 65 Random Glucose 68 Calcium 7.8 L B-Natriuretic Peptide Microbiology Microbiology Results: Microbiology 06/19/24 08:27 Blood Culture - Preliminary Blood - Venous No growth after 48 hours. 06/19/24 07:32 Blood Culture - Preliminary Blood - Venous No growth after 48 hours. Assessment and Plan (1) Acute exacerbation of CHF (congestive heart failure): Status: Acute (2) Acute kidney injury superimposed on chronic kidney disease: Status: Acute Assessment and Plan: 78F PMH COPD, HFpEF, pernicious anemia, HTN, HLD insulin-dependent type 2 diabetes with neuropathy, CKD3, hypothyroidism, and mood disorder who presented to the ED with increasing SOB and RIZVI x2-3 days Acute HFpEF exacerbation also has b/l atelactasis with activity SOB, nonproductive cough Likely secondary to medication noncompliance: Patient has not been taking diuretics for past 2+ years appears to have diuresed well, will change to po bumex CT with bilateral pleural effusions i/o 3.8 liter negative ,bnp improving echo: Normal LV ejection fraction 60 65% with pseudonormal filling pattern At least mildly dilated left atrium Mild calcific aortic stenosis Heavy mitral annular calcification along with mitral valve leaflet calcification with possible mild mitral stenosis Severely elevated right ventricular systolic pressure significant elevated right atrial pressures Mildly dilated ascending aorta still sob despite diruesis, will check repeat cxr CKD 3 with Hyperkalemia stable, resolved ?pneumonia CT with question of developing infiltrates Pt afebrile, no leukocytosis, nonproductive cough no sepsis continue ceftriaxone+ azithromycin , started 06/19/2024 COPD Not in acute exacerbation DuoNebs for SOB Guaifenesin for cough Continue home inhalers HTN Continue amlodipine HLD Continue statin, gemfibrozil Insulin-dependent type 2 diabetes Sliding scale insulin, Lantus Diabetic diet Full Code DVT Prophylaxis: Heparin reason for continued hospitalization: still sob Quality Stroke Does the patient have a stroke diagnosis?: No VTE Prior VTE?: No VTE Risk Level:: Medical - moderate - high VTE Device Contraindication: Treatment Not Indicated VTE Drug Contraindication: N/A - Med Ordered
--- NOTE | 2024-06-22 10:17 | MHC.CM.PN ---
Per ROUNDS discussion, Patient is not yet medically cleared for dc (still SOB); PT is recommending STR and CM will continue to follow.
[2024-06-22] MEDS: Nystatin Powder 15 GM BOTTLE 1 APPL TOPICAL ×3 (10:19→22:03)
--- NOTE | 2024-06-22 10:33 | P.PNCA_ITS ---
Subjective Subjective Date of Service: 06/22/24 Principal diagnosis: CHF, elevated creatinine. Interval history: Patient says she still short of breath not improved at all. However she has had a negative balance of 6.2 L. BNP is improved in the 200 range. She does not have any significant evidence of fluid overload. Denies any cardiac arrhythmias. Blood pressure remains elevated. Review of Systems Constitutional: Reports no additional constitutional complaints Cardiovascular: Denies chest pain, Denies leg edema, Denies lightheadedness, Denies Loss of Consciousness, Denies palpitations and Reports dyspnea Respiratory: Reports cough and Reports dyspnea Endocrine: Denies palpitations Physical Exam Vital Signs: Last Vital Signs Temp 98.1 F 06/22/24 07:33 Pulse 72 06/22/24 07:33 Resp 20 06/22/24 07:33 BP 161/72 H 06/22/24 08:59 Pulse Ox 93 06/22/24 07:33 O2 Del Method Nasal Cannula 06/22/24 07:33 O2 Flow Rate 2 06/22/24 07:33 Oxygen Flow Rate 2 06/19/24 05:56 BMI result Body Mass Index 37.8 Const General: cooperative, alert, awake and in distress mild and respiratory Nutritional Appearance: obese Orientation/consciousness: patient oriented x3 HEENT Head: Yes normocephalic and Yes atraumatic Neck Neck: Yes trachea midline, Yes supple and Yes no JVD Resp Effort & Inspection: normal respiratory effort and tachypneic Auscultation: wheezes and breath sounds absent (Both basis) Cardio Jugular venous distension: no JVD Rate: regular rate Rhythm: abnormal rhythm with ectopic beats Heart sounds: S1 normal heart sound present, S2 normal heart sound present, no click, no gallops, no murmurs and no rubs GI Auscultation: normal bowel sounds Skin General skin exam: no rashes or lesions noted Neuro General: patient oriented x3 and no focal motor deficits Extrem General: No clubbing, No cyanosis, Yes edema and Yes venous stasis dermatitis Objective Labs and Meds 06/19/24 09:16 06/22/24 06:24 Lab results: Laboratory Results - last 24 hr 06/21/24 06/21/24 06/21/24 09:02 10:56 16:16 Sodium Potassium Chloride Carbon Dioxide Anion Gap BUN Creatinine Estim Creat Clear Calc Estimated GFR POC Glucose 152 H 191 H Random Glucose Calcium B-Natriuretic Peptide 254 H 06/21/24 06/22/24 06/22/24 19:46 06:24 07:06 Sodium 146 H Potassium 4.8 Chloride 103 Carbon Dioxide 31 H Anion Gap 17 BUN 60 H Creatinine 1.83 H Estim Creat Clear Calc 31.1 Estimated GFR 27 POC Glucose 176 H 65 Random Glucose 68 Calcium 7.8 L B-Natriuretic Peptide Progress Note: A&P Assessment and plan (1) Acute exacerbation of CHF (congestive heart failure): Status: Acute Assessment and Plan: Acute decompensated congestive heart failure on presentation with negative balance of 6.2 L. I do not think her shortness of breath is not related to decompensated congestive heart failure. Possibly related to anxiety/deconditioning/pleural effusions/atelectasis. Would switch her to oral diuretics. Would switch her to Bumex 2 mg daily. I would also add Jardiance 10 mg to regimen. Blood pressure is not well optimized can increase Norvasc to [address] imaging to evaluate for pleural effusion and atelectasis. If she has significant pleural effusion may benefit from thoracocentesis. Recommend to continue pursue aggressive incentive spirometry. Will sign of the case (2) Essential hypertension: Status: Acute Assessment and Plan: Hypertension which is uncontrolled. Increase amlodipine to 10 mg daily. Low- salt diet. Continue other medications. Out of bed to chair. Will sign of the case. Thank you for allowing me to partake in his care Time Spent With Patient Time: Total time managing care of this patient today ____ minutes. Progress Note: Quality Stroke Does the patient have a stroke diagnosis?: No Procedures Date of Service Date of Service: 06/22/24
[2024-06-22 11:03] LABS: Glucose, Whole Blood 130 mg/dL (60-115)
[2024-06-22] MEDS: cefTRIAXone sodium 1 GM in 0.9 % Sodium Chloride 50 ML IV (11:41)
--- NOTE | 2024-06-22 12:00 | MHC.CLN ---
NUTRITION DIET=DIABETIC 2000 KCALS, 2 GRAM SODIUM. MARJORIE RESOLVED AND DISCONTINUED DIET RESTRICTION FOR LOW POTASSIUM AND LOW PHOSPHORUS. INTAKE AT MEALS 100%. SKIN WITH DTI RIGHT SACRUM PER WOUND RN. DIET SHOULD PROVIDE ADEQUATE PROTEIN TO PROMOTE SKIN INTEGRITY. FOLLOW FOR PO INTAKE AND SKIN INTEGRITY. SEE CLINICAL NUTRITION ASSESSMENT 06/22/24.
[2024-06-22] MEDS: Bumetanide 1 MG TABLET PO (16:14)
[2024-06-22 16:29] LABS: Glucose, Whole Blood 198 mg/dL (60-115)
[2024-06-22] MEDS: Insulin Lispro 100 UNIT/ML 3 ML VIAL SUBCUT ×2 (16:34→22:02)
[2024-06-22 20:08] LABS: Glucose, Whole Blood 225 mg/dL (60-115)
[2024-06-22] MEDS: Atorvastatin Calcium 40 MG TABLET PO (22:00)
[2024-06-22] MEDS: Melatonin 3 MG TABLET 6 MG PO (22:01)
[2024-06-22] MEDS: Insulin Glargine,Hum.rec.anlog 100 UNIT/ML 10 ML VIAL 30 UNIT SUBCUT (22:01)
[2024-06-23] MEDS: 0.9 % Sodium Chloride Flush 3 ML SYRINGE IVFLUSH (00:05)
[2024-06-23] MEDS: Heparin Sodium,Porcine 5,000 UNIT/ML VIAL 5000 UNIT SUBCUT ×2 (00:05→11:20)
[2024-06-23] MEDS: oxyCODONE HCl Immed Release 5 MG TABLET PO (00:12)
[2024-06-23 03:26] LABS: Glucose, Whole Blood 126 mg/dL (60-115)
[2024-06-23 03:30] LABS: Glucose, Whole Blood 117 mg/dL (60-115)
[2024-06-23 04:00] VITALS: BP 158/68; PULSE 75; RESP 19; TEMP 36.4; O2SAT 92
[2024-06-23 06:14] LABS: Hematocrit 30.8 % (37.0-47.0); Hemoglobin 9.3 g/dl (12.0-16.0); Mean Corpuscular HGB Conc 30.2 g/dl (31.0-35.0); Mean Corpuscular Volume 99.4 fL (80.0-98.0); Mean Platelet Volume 9.2 fL (9.4-12.3); Platelet Count 311 X10*3/uL (160-400); Red Cell Distribution Width 14.6 % (11.0-16.0); White Blood Count 8.4 X10*3/uL (4.8-10.8)
[2024-06-23] MEDS: Levothyroxine Sodium 200 MCG TABLET PO (06:17)
[2024-06-23 06:32] LABS: Anion Gap 16 (12-20); Blood Urea Nitrogen 54 mg/dL (9-16); Carbon Dioxide 35 mmol/L (22-29); Chloride 100 mmol/L (96-108); Creatinine Clr Calc Pharmacy 36.5; Estimated Glomerular Filt Rate 32; Glucose Fasting 91 mg/dL (60-99); Magnesium 2.1 mg/dL (1.6-2.6); Sodium 146 mmol/L (135-145)
[2024-06-23 07:10] VITALS: BP 170/82; PULSE 74; RESP 20; TEMP 36.8; O2SAT 94
[2024-06-23 07:11] LABS: Glucose, Whole Blood 85 mg/dL (60-115)
[2024-06-23] MEDS: Albuterol/Iprat 2.5/0.5MG 3 ML AMPUL.NEB INHALE ×2 (07:21→11:13)
[2024-06-23 07:23] VITALS: PULSE 82; RESP 20; O2SAT 95
--- NOTE | 2024-06-23 07:44 | PC.NURSE ---
Patient with c/o of lower back pain 05/04. Medicated with 5 mg po oxycodone with good relief. Assisted with incontinence care. 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 NSR on night monitor. No signs of acute distress noted.
[2024-06-23] MEDS: DULoxetine HCl 20 MG CAPSULE.DR PO (08:06)
[2024-06-23] MEDS: Bumetanide 1 MG TABLET 2 MG PO (08:06)
[2024-06-23] MEDS: gemfibroziL 600 MG TABLET PO (08:06)
[2024-06-23] MEDS: Empagliflozin 10 MG TABLET PO (08:06)
[2024-06-23] MEDS: amLODIPine Besylate 10 MG TABLET PO (08:07)
[2024-06-23] MEDS: Azithromycin 500 MG in 0.9 % Sodium Chloride 250 ML 125 MG IV (08:07)
[2024-06-23] MEDS: Nystatin Powder 15 GM BOTTLE 1 APPL TOPICAL (08:17)
--- NOTE | 2024-06-23 08:41 | P.CDIM_ITS ---
PROVIDER RESPONSE TEXT: To clarify, the appropriate diagnosis supported by the clinical indicators: Deep tissue injury Right sacrum QUERY TEXT: PHYSICIAN'S DOCUMENTATION REQUEST Date of Query: 06/23/2024 08:10 AM EDT Patient Name: Radhika Vaca Admit Date: 06/19/2024 Dear Nawaf Bhatti MD, A review of the medical record indicates additional documentation may be needed. Please review below and update the documentation accordingly. Clinical Indicators: Wound care assessment notes 06/21- Deep tissue injury right sacrum - present on arrival Dark non-blanchable tissue purple and epidermal peeling noted. Off load and protect with foam dressing. Based on the above, could you please provide further information regarding the ulcer/wound/injury: Deep tissue injury Right sacrum Other Other (explain) Clinically unable to determine (explain) Thank you, Sharda Kinsey, CCS, CDIS Use of terms such as suspected, likely, concern for, or probable (associated with a specific diagnosi s that is being evaluated, monitored, or treated as if it exists) are acceptable and can be coded in the inpatient se tting, when documented at the time of discharge. Please use your independent medical judgment in providing your response. THIS QUERY IS PART OF THE PERMANENT MEDICAL RECORD
--- NOTE | 2024-06-23 10:13 | PC.NURSE ---
Addendum entered by Tim Easton RN 06/23/24 11:16: report given to facility Addendum entered by Tim Easton RN 06/23/24 10:55: pt bladder scanned found to be 973ml. md informed. placing francisco per md order. pt c/o chest pressure. vitals WNL, pt stated she is anxious. prn ativan given, md informed. Original Note: pt c/o severe burning sensation/pain this AM demanding a francisco catheter stating the purewick is not working. Informed MD and ID. Pt to be bladder scanned. Patria area care performed. business leader informed. Pt refused pain medicine. Pt cleaned multiple times this shift.
--- NOTE | 2024-06-23 10:16 | P.PNIM_ITS ---
Subjective Subjective Date of Service: 06/23/24 Interval History: sob improved Physical Exam 2 Vital Signs: Vital Signs: Last Vital Signs Temp 98.2 F 06/23/24 07:10 Pulse 82 06/23/24 07:23 Resp 20 06/23/24 07:23 BP 170/82 H 06/23/24 07:10 Pulse Ox 94 06/23/24 07:10 O2 Del Method Nasal Cannula 06/23/24 07:10 O2 Flow Rate 2 06/23/24 07:10 Oxygen Flow Rate 2 06/19/24 05:56 BMI result Body Mass Index 37.8 Const: General: cooperative, alert, awake and in distress mild and respiratory Nutritional Appearance: obese Orientation/consciousness: patient oriented x3 HEENT: Head: Yes normocephalic and Yes atraumatic Neck: Neck: Yes trachea midline, Yes supple and Yes no JVD Resp: Effort & Inspection: normal respiratory effort and tachypneic A uscultation: wheezes and breath sounds absent (Both basis) Cardio: Jugular venous distension: no JVD Rate: regular rate Rhythm: a bnormal rhythm with ectopic beats Heart sounds: S1 normal heart sound present, S2 normal heart sound present, no click, no gallops, no murmurs and no rubs GI: Auscultation: normal bowel sounds Skin: General skin exam: no rashes or lesions noted Neuro: General: patient oriented x3 and no focal motor deficits Extrem: General: No clubbing, No cyanosis, Yes edema and Yes venous stasis dermatitis Objective Data Active Medications Acetaminophen (Acetaminophen 325 Mg Tablet) 650 mg PO Q6H PRN PRN Reason: Pain, Mild (Pain Scale 1-3), fever or headache Albuterol/Ipratropium (Albuterol/Iprat 2.5/0.5mg 3 Ml Ampul.Neb) 3 ml INHALE RQ4H WHILE AWAKE [facility] Last Admin: 06/23/24 07:21 Dose: 3 ml Documented By: KATRINA Amlodipine Besylate (Amlodipine Besylate 10 Mg Tablet) 10 mg PO DAILY [facility]; Protocol Last Admin: 06/23/24 08:07 Dose: 10 mg Documented By: DEMETRIUS Atorvastatin Calcium (Atorvastatin Calcium 40 Mg Tablet) 40 mg PO BEDTIME [facility] Last Admin: 06/22/24 22:00 Dose: 40 mg Documented By: HO.FENELOJ Bumetanide (Bumetanide 1 Mg Tablet) 2 mg PO DAILY [facility]; Protocol Last Admin: 06/23/24 08:06 Dose: 2 mg Documented By: DEMETRIUS Calcium Carbonate (Calcium Carbonate 750 Mg Tab.Chew) 750 mg PO Q4H PRN PRN Reason: Heartburn Duloxetine HCl (Duloxetine Hcl 20 Mg Capsule.Dr) 20 mg PO DAILY [facility] Last Admin: 06/23/24 08:06 Dose: 20 mg Documented By: DEMETRIUS Empagliflozin (Empagliflozin 10 Mg Tablet) 10 mg PO DAILY [facility] Last Admin: 06/23/24 08:06 Dose: 10 mg Documented By: DEMETRIUS Gemfibrozil (Gemfibrozil 600 Mg Tablet) 600 mg PO BID [facility] Last Admin: 06/23/24 08:06 Dose: 600 mg Documented By: DEMETRIUS Glucose (Glucose Gel 15 Gm Gel..Gram.) 15 gm PO Q15M PRN; Protocol PRN Reason: per Hypoglycemia Standing Ord. Guaifenesin/Dextromethorphan (Guaifenesin Dm 200/20/10 Ml 10 Ml Syrup) 10 ml PO Q6H PRN PRN Reason: Cough Heparin Sodium (Porcine) (Heparin Sodium,Porcine 5,000 Unit/Ml Vial) 5,000 unit SUBCUT Q12H [facility] Last Admin: 06/23/24 00:05 Dose: 5,000 unit Documented By: SANDRO Azithromycin 500 mg/ Sodium (Chloride) 250 mls @ 125 mls/hr IV Q24H [facility] Last Infusion: 06/23/24 10:08 Dose: Infused Documented By: DEMTERIUS Dextrose (D10) 250 mls @ 750 mls/hr IV Q15M PRN; Protocol PRN Reason: per Hypoglycemia Standing Ord. Ceftriaxone Sodium 1 gm/ (Sodium Chloride) 50 mls @ 100 mls/hr IV Q24H [facility] Last Infusion: 06/22/24 12:13 Dose: Infused Documented By: PERICO Insulin Glargine (Insulin Glargine,Hum.Rec.Anlog 100 Unit/Ml 10 Ml Vial) 30 unit SUBCUT BEDTIME [facility] Last Admin: 06/22/24 22:01 Dose: 1 unit Documented By: SANDRO Insulin Human Lispro (Insulin Lispro 100 Unit/Ml 3 Ml Vial) 0 unit SUBCUT QIDACHS [facility]; Protocol Last Admin: 06/23/24 07:28 Dose: Not Given Documented By: DEMETRIUS Non-Admin Reason: poc oor Levothyroxine Sodium (Levothyroxine Sodium 200 Mcg Tablet) 200 mcg PO DAILY@0600 [facility] Last Admin: 06/23/24 06:17 Dose: 200 mcg Documented By: SANDRO Lorazepam (Lorazepam 0.5 Mg Tablet) 0.5 mg PO TID PRN PRN Reason: anxiety Last Admin: 06/22/24 10:27 Dose: 0.5 mg Documented By: PERICO Magnesium Hydroxide (Milk Of Magnesia 30 Ml Oral.Susp) 30 ml PO DAILY PRN PRN Reason: Constipation Melatonin (Melatonin 3 Mg Tablet) 6 mg PO BEDTIME PRN PRN Reason: Insomnia Last Admin: 06/22/24 22:01 Dose: 6 mg Documented By: SANDRO Nystatin (Nystatin Powder 15 Gm Bottle) 1 appl TOPICAL TID [facility]; Protocol Last Admin: 06/23/24 08:17 Dose: 1 appl Documented By: DEMETRIUS Ondansetron HCl (Ondansetron Hcl 4 Mg/2 Ml Vial) 4 mg IVPUSH Q8H PRN PRN Reason: Nausea and Vomiting Oxycodone HCl (Oxycodone Hcl Immed Release 5 Mg Tablet) 5 mg PO Q6H PRN PRN Reason: Pain, Severe (Pain Scale 7-10) Last Admin: 06/23/24 00:12 Dose: 5 mg Documented By: SANDRO Sodium Bicarbonate (Sodium Bicarbonate 650 Mg Tablet) 650 mg PO QID [facility] Last Admin: 06/22/24 22:01 Dose: 650 mg Documented By: SANDRO Sodium Chloride (0.9 % Sodium Chloride Flush 3 Ml Syringe) [facility] Last Admin: 06/23/24 07:28 Dose: Not Given Documented By: DEMETRIUS Non-Admin Reason: Previously Administered Labs 06/23/24 05:40 06/23/24 05:40 Labs: Laboratory Results - last 24 hr 06/22/24 06/22/24 06/22/24 10:59 16:26 20:00 MCV MCH MCHC RDW Plt Count MPV Absolute Nucleated RBC Nucleated RBC % (auto) Anion Gap Estim Creat Clear Calc Estimated GFR POC Glucose 130 H 198 H 225 H Fasting Glucose Calcium Magnesium 06/23/24 06/23/24 06/23/24 03:20 03:26 05:40 MCV 99.4 H MCH 30.0 MCHC 30.2 L RDW 14.6 Plt Count 311 MPV 9.2 L Absolute Nucleated RBC 0.000 Nucleated RBC % (auto) 0.0 Anion Gap 16 Estim Creat Clear Calc 36.5 Estimated GFR 32 POC Glucose 126 H 117 H Fasting Glucose 91 Calcium 8.0 L Magnesium 2.1 06/23/24 06:52 MCV MCH MCHC RDW Plt Count MPV Absolute Nucleated RBC Nucleated RBC % (auto) Anion Gap Estim Creat Clear Calc Estimated GFR POC Glucose 85 Fasting Glucose Calcium Magnesium Assessment and Plan (1) Acute exacerbation of CHF (congestive heart failure): Status: Acute (2) Acute kidney injury superimposed on chronic kidney disease: Status: Acute Assessment and Plan: 78F PMH COPD, HFpEF, pernicious anemia, HTN, HLD insulin-dependent type 2 diabetes with neuropathy, CKD3, hypothyroidism, and mood disorder who presented to the ED with increasing SOB and RIZVI x2-3 days Acute HFpEF exacerbation also has b/l atelactasis with activity SOB, nonproductive cough Likely secondary to medication noncompliance: Patient has not been taking diuretics for past 2+ years appears to have diuresed well, will change to po bumex 2mg daily, added jardiance CT with bilateral pleural effusions i/o 3.8 liter negative ,bnp improving echo: Normal LV ejection fraction 60 65% with pseudonormal filling pattern At least mildly dilated left atrium Mild calcific aortic stenosis Heavy mitral annular calcification along with mitral valve leaflet calcification with possible mild mitral stenosis Severely elevated right ventricular systolic pressure significant elevated right atrial pressures Mildly dilated ascending aorta repeat cxr improved shala on CKD 3 with Hyperkalemia improved ?pneumonia CT with question of developing infiltrates Pt afebrile, no leukocytosis, nonproductive cough no sepsis continue ceftriaxone+ azithromycin , started 06/19/2024 COPD Not in acute exacerbation DuoNebs for SOB Guaifenesin for cough Continue home inhalers HTN Continue amlodipine increased to 10mg daily HLD Continue statin, gemfibrozil Insulin-dependent type 2 diabetes Sliding scale insulin, Lantus Diabetic diet Full Code DVT Prophylaxis: Heparin reason for continued hospitalization: placement Quality Stroke Does the patient have a stroke diagnosis?: No VTE Prior VTE?: No VTE Risk Level:: Medical - moderate - high VTE Device Contraindication: Treatment Not Indicated VTE Drug Contraindication: N/A - Med Ordered
--- NOTE | 2024-06-23 10:21 | PM.DS ---
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 06/20/24 08:00 Consult to Cardiology Routine Consulting Provider: [facility] [place] Reason for consultation: CHF exacerbation, CKD, to establish care 06/20/24 11:06 Consult to Wound Care Routine Reason for consultation: BLE redness, right foot wound, coccyx DS: Diagnosis Discharge Diagnosis (1) Acute exacerbation of CHF (congestive heart failure): Status: Acute (2) Acute kidney injury superimposed on chronic kidney disease: Status: Acute DS: Summary Hospital Course Hospital Course: from initial hpi: 78-year-old female with a PMH significant for?COPD, HFpEF, pernicious anemia, HTN, HLD insulin-dependent type 2 diabetes with neuropathy, CKD3, hypothyroidism, and mood disorder who presents to the ED with increasing SOB and RIZVI x2-3 days, worse this morning. Has also experienced chest heaviness during this time associated with deep breathing and exertion. Chronic lower edema at baseline. Nonproductive cough at baseline, however patient states she feels there is something ?rattling around? in her chest that she can not cough up. Patient reports she has previously diagnosed with CHF 3 years ago. Initially was started on home Lasix, but patient was unable to tolerate medication due to frequent urination and has not been taking any diuretics for over 2 years. Does not follow up outpatient with either cardiology or nephrology. Denies fever, chills, N/V/D, or abdominal pain. In the ED pt was tachypneic up to 28 and hypertensive up to 172/56. Labs were significant for stable macrocytic anemia 9.1/29.9 and MCV 101.4, potassium 5.8, bicarb 16, BUN 56, creatinine 1.83, random glucose 335, alk-phos 172, and BNP 755. Lactic acid WNL. No leukocytosis. Tested negative for influenza, RSV, and COVID. VB pH showed pH 7.1 with normal pCO2 and slightly low bicarb at 16. CXR showed right pleural effusion and findings suspicious for pulmonary vascular congestion. Chest CT found bilateral pleural effusions with right greater than left independent bibasilar atelectasis with likely right lower lobe consolidation. Overall found diffuse ground-glass attenuation suggestive of airway disease with underlying developing infiltrates. EKG pending. Pt was treated with DuoNebs, furosemide 40 mg IV, lorazepam, Lokelma, ceftriaxone, and azithromycin. Pt will be admitted to the hospital for treatment and further evaluation acute HFpEF exacerbation and hyperkalemia. hospital course: Patient was admitted for acute on chronic diastolic CHF. Was treated with IV Lasix and diuresed well. Was seen by Cardiology recommended transitioning to oral maintenance of Bumex 2 mg daily and adding Jardiance. For acute kidney injury with CKD 3 with hyperkalemia, hypokalemia resolved and renal function returned to baseline with diuresis. For question of pneumonia patient was treated with ceftriaxone azithromycin and will be transitioned to 3 more days of cefuroxime.. Fo for COPD patient remained stable was continued on DuoNebs as needed. For hypertension amlodipine was increased from 5 mg daily to 10 mg daily. For hyperlipidemia was continue statin and gemfibrozil. For obesity weight loss recommended. For diabetes was continued on basal bolus insulin. Course complicated by urinary retention. Moyer placed and will remain until more ambulatory and then should have a voiding trial. Due to debility patient was seen by physical therapy recommended short-term rehab which patient will be doing at assisted facility. Time Attestation Discharge Coordination Time (in mins): 33 Quality: Safe Use of Opioids Does Pt have an Active Cancer Diagnosis on the Problem List?: No Quality: Stroke Does the patient have a stroke diagnosis?: No Physical Exam Vital Signs: Vital Signs: Last Vital Signs Temp 98.2 F 06/23/24 07:10 Pulse 82 06/23/24 07:23 Resp 20 06/23/24 07:23 BP 170/82 H 06/23/24 07:10 Pulse Ox 94 06/23/24 07:10 O2 Del Method Nasal Cannula 06/23/24 07:10 O2 Flow Rate 2 06/23/24 07:10 Oxygen Flow Rate 2 06/19/24 05:56 BMI result Body Mass Index 37.8 Const: General: cooperative, alert, awake and in distress mild and respiratory Nutritional Appearance: obese Orientation/consciousness: patient oriented x3 HEENT: Head: Yes normocephalic and Yes atraumatic Neck: Neck: Yes trachea midline, Yes supple and Yes no JVD Resp: Effort & Inspection: normal respiratory effort and tachypneic Auscultation: wheezes and breath sounds absent (Both basis) Cardio: Jugular venous distension: no JVD Rate: regular rate Rhythm: abnormal rhythm with ectopic beats Heart sounds: S1 normal heart sound present, S2 normal heart sound present, no click, no gallops, no murmurs and no rubs GI: Auscultation: normal bowel sounds Skin: General skin exam: no rashes or lesions noted Neuro: General: patient oriented x3 and no focal motor deficits Extrem: General: No clubbing, No cyanosis, Yes edema and Yes venous stasis dermatitis DS: Data Data Completed and Pending Completed studies during hospitalization [Text1]: Procedures Insertion of Infusion Device into Superior Vena Cava, Percutaneous Approach (11/10/21) Performance of Urinary Filtration, Intermittent, Less than 6 Hours Per Day (11/10/21) Labs on day of discharge: Laboratory Results - last 24 hr 06/22/24 06/22/24 06/22/24 10:59 16:26 20:00 WBC RBC Hgb Hct MCV MCH MCHC RDW Plt Count MPV Absolute Nucleated RBC Nucleated RBC % (auto) Sodium Potassium Chloride Carbon Dioxide Anion Gap BUN Creatinine Estim Creat Clear Calc Estimated GFR POC Glucose 130 H 198 H 225 H Fasting Glucose Calcium Magnesium 06/23/24 06/23/24 06/23/24 03:20 03:26 05:40 WBC 8.4 RBC 3.10 L Hgb 9.3 L Hct 30.8 L MCV 99.4 H MCH 30.0 MCHC 30.2 L RDW 14.6 Plt Count 311 MPV 9.2 L Absolute Nucleated RBC 0.000 Nucleated RBC % (auto) 0.0 Sodium 146 H Potassium 5.0 Chloride 100 Carbon Dioxide 35 H Anion Gap 16 BUN 54 H Creatinine 1.56 H Estim Creat Clear Calc 36.5 Estimated GFR 32 POC Glucose 126 H 117 H Fasting Glucose 91 Calcium 8.0 L Magnesium 2.1 06/23/24 06:52 WBC RBC Hgb Hct MCV MCH MCHC RDW Plt Count MPV Absolute Nucleated RBC Nucleated RBC % (auto) Sodium Potassium Chloride Carbon Dioxide Anion Gap BUN Creatinine Estim Creat Clear Calc Estimated GFR POC Glucose 85 Fasting Glucose Calcium Magnesium Preliminary micro results at discharge 06/19/24 08:27 Blood Culture - Preliminary Blood - Venous No growth after 48 hours. 06/19/24 07:32 Blood Culture - Preliminary Blood - Venous No growth after 48 hours. Discharge Plan Discharge Anticipated Discharge Date/Time: 06/23/24 10:17 Patient Disposition: Xfer SNF Discharge Diagnosis: chf, pna, shala Referrals: [facility] [Outside] - 1 Week Neida Mirza MD [Primary Care Provider] - 1 Week Discharge Medications: New cefuroxime axetil 500 mg tablet 500 mg PO BID Qty: 6 0RF amlodipine 10 mg Tablet 10 mg PO DAILY Qty: 0 0RF Protocol: Hold for SBP< HOLD for SBP < : 90 bumetanide 1 mg Tablet 2 mg PO DAILY Qty: 0 0RF Protocol: Hold for SBP< HOLD for SBP < : 90 Jardiance 10 mg Tablet 10 mg PO DAILY Qty: 0 0RF Continued (DME) Accu-Chek Odilia Plus test strp Strip See Rx Instructions .Route Qty: 100 1RF Rx Instructions: Use 1 test strip once a day (DME) Accu-Chek Guide test strips Strip See Rx Instructions .Route Qty: 100 3RF Rx Instructions: Use 1 test strip once a day (DME) lancets [Accu-Chek Softclix Lancets] Misc See Rx Instructions .Route Qty: 100 3RF Rx Instructions: Use 1 lancet once a day (DME) insulin syringe-needle U-100 [BD Insulin Syringe Ultra-Fine] 0.5 mL 31 gauge x 5/16 syringe See Rx Instructions .Route Qty: 100 3RF Rx Instructions: Use 1 needle once a day (DME) pen needle, diabetic [1st Tier Unifine Pentips] 31 gauge x 5/16 needle See Rx Instructions .Route Qty: 100 4RF Rx Instructions: Use 1 pen needle once a day gemfibrozil 600 mg tablet 600 mg PO BID 90 Days Qty: 180 1RF lorazepam 0.5 mg tablet 0.5 mg PO TID PRN (Reason: anxiety) 30 Days Qty: 90 0RF Rx Instructions: coverage for Ranjith Chun duloxetine [Cymbalta] 20 mg capsule,delayed release(DR/EC) 20 mg PO DAILY 90 Days Qty: 90 0RF albuterol sulfate [Ventolin HFA] 90 mcg/actuation HFA aerosol inhaler 2 puff inhalation Q6H PRN (Reason: shortness of breath or wheezing) 30 Days Qty: 8.5 3RF atorvastatin 40 mg tablet 40 mg PO BEDTIME 90 Days Qty: 90 3RF levothyroxine 200 mcg tablet 200 mcg PO DAILY@0600 insulin glargine [Basaglar KwikPen U-100 Insulin] 100 unit/mL (3 mL) insulin pen 15 unit subcut BEDTIME Discontinued amlodipine 5 mg tablet 5 mg PO DAILY 90 Days Qty: 90 0RF Discharge Orders: Discharge Order (Routine); Ordered 06/23/24 Ordered By: Nawaf Bhatti Diet: Diabetic diet Activity on Discharge: As tolerated Stand Alone Forms: Patient Portal Discharge page Print Language: Arabic Care Plan Goals: recovery Health Concerns: chf, pna Plan of Treatment: 3 more days ceftin, started bumex 2mg daily, other med changes as noted on medrec Voiding trial when more ambulatory Assessment: see above Discharge Date/Time: 06/23/24 14:55
[2024-06-23 10:41] VITALS: BP 140/82
--- NOTE | 2024-06-23 10:45 | HO.WOUND ---
Wound Consult: Initial 78 yr old female admitted to [facility] 06/19/24 12:45 - see H&P for detailed history. Wound consult requested follow up by direct care nurse for pain and burning to the vaginal area. Per conversation with direct care nurse Bladder scan for 900cc unable to void. Discussed per protocol to attempt straight cath - per direct care nurse order per provider to place Moyer Cath, Lorena JENNINGS from infection control notified. Patients perineal area was not assessed - discomfort suspect is from urinary retention - direct care nurse reports no injury to vaginal area no wound consult needed at this time.
--- NOTE | 2024-06-23 10:50 | P.PNNP_ITS ---
Subjective Subjective Date of Service: 06/23/24 Principal diagnosis: CHF, elevated creatinine. Interval history: Events noted Physical Exam 2 Vital Signs: Vital Signs: Last Vital Signs Temp 98.2 F 06/23/24 07:10 Pulse 82 06/23/24 07:23 Resp 20 06/23/24 07:23 BP 140/82 H 06/23/24 10:41 Pulse Ox 94 06/23/24 07:10 O2 Del Method Nasal Cannula 06/23/24 07:10 O2 Flow Rate 2 06/23/24 07:10 Oxygen Flow Rate 2 06/19/24 05:56 BMI result Body Mass Index 37.8 Neck: Neck: Yes supple Resp: Auscultation: clear to auscultation bilaterally Cardio: Palpation: no palpable S3 Heart sounds: no rubs GI: Palpation (GI): Soft to palpation Auscultation: normal bowel sounds Neuro: Motor exam (neuro): no asterixis Objective Data Labs 06/23/24 05:40 06/23/24 05:40 Labs: Laboratory Results - last 24 hr 06/22/24 06/22/24 06/22/24 10:59 16:26 20:00 WBC RBC Hgb Hct MCV MCH MCHC RDW Plt Count MPV Absolute Nucleated RBC Nucleated RBC % (auto) Sodium Potassium Chloride Carbon Dioxide Anion Gap BUN Creatinine Estim Creat Clear Calc Estimated GFR POC Glucose 130 H 198 H 225 H Fasting Glucose Calcium Magnesium 06/23/24 06/23/24 06/23/24 03:20 03:26 05:40 WBC 8.4 RBC 3.10 L Hgb 9.3 L Hct 30.8 L MCV 99.4 H MCH 30.0 MCHC 30.2 L RDW 14.6 Plt Count 311 MPV 9.2 L Absolute Nucleated RBC 0.000 Nucleated RBC % (auto) 0.0 Sodium 146 H Potassium 5.0 Chloride 100 Carbon Dioxide 35 H Anion Gap 16 BUN 54 H Creatinine 1.56 H Estim Creat Clear Calc 36.5 Estimated GFR 32 POC Glucose 126 H 117 H Fasting Glucose 91 Calcium 8.0 L Magnesium 2.1 06/23/24 06:52 WBC RBC Hgb Hct MCV MCH MCHC RDW Plt Count MPV Absolute Nucleated RBC Nucleated RBC % (auto) Sodium Potassium Chloride Carbon Dioxide Anion Gap BUN Creatinine Estim Creat Clear Calc Estimated GFR POC Glucose 85 Fasting Glucose Calcium Magnesium Microbiology Microbiology Results: Microbiology 06/19/24 08:27 Blood - Venous Blood Culture - Preliminary No growth after 48 hours. 06/19/24 07:32 Blood - Venous Blood Culture - Preliminary No growth after 48 hours. Procedures Date of Service Date of Service: 06/23/24 Assessment & Plan Assessment and plan (1) Acute kidney injury superimposed on chronic kidney disease: Status: Acute Plan 78-year-old man with MARJORIE superimposed on CKD. MARJORIE is primarily due to hypoperfusion. She has underlying CKD 3. No overt signs or symptoms of uremia. She has mild fluid overload. Agree with cautious diuresis. Keep her in negative fluid balance. Low-sodium diet. Continue to avoid nephrotoxic agents and hypotension. Adjust all medications to EGFR of less than 30 mL/minute. Anemia is multifactorial. She may need Epogen if hemoglobin stays less than 9 grams/deciliter. She will follow along with the team Time Spent With Patient Time: Total time managing care of this patient today ____ minutes. Progress Note: Quality Stroke Does the patient have a stroke diagnosis?: No
[2024-06-23] MEDS: LORazepam 0.5 MG TABLET PO (10:51)
[2024-06-23 10:56] VITALS: BP 140/82; PULSE 92; RESP 20; TEMP 36.7; O2SAT 93
[2024-06-23 11:15] VITALS: PULSE 83; RESP 18
[2024-06-23] MEDS: cefTRIAXone sodium 1 GM in 0.9 % Sodium Chloride 50 ML IV (11:20)
[2024-06-23 11:27] LABS: Glucose, Whole Blood 166 mg/dL (60-115)
--- NOTE | 2024-06-23 11:28 | MHC.CM.PN ---
Pt is medically cleared for discharge to [facility] at [facility] today via BLS/Arielle at 2pm. Pt aware and in agreement with discharge plan, she requesting this CM call her son to update him. Pts son Yee called by this CM and updated per pts request.
[2024-06-23] MEDS: Insulin Lispro 100 UNIT/ML 3 ML VIAL SUBCUT (11:31)
[2024-06-23 11:40] LABS: Appearance Urine Clear; Color Urine Yellow; Glucose Urine UA 250 mg/dL (Negative); Leukocyte Esterase Urine Moderate (2+) (Negative); Nitrite Urine Negative (Negative); UMIC TRIGGER UA YES; Urine Blood Small (1+) (Negative); Urine Ketones Negative (Negative); Urine Protein 100 (2+) mg/dL (Neg-Trace)
[2024-06-23 12:17] LABS: Bacteria Urine None Seen (None Seen); Squamous Epithelial Cell Urine 0-2 /HPF (0-2); WBC Urine >50 /HPF (0-5)
== END 2024-06-23 14:55 | disposition skilled nursing facility (03) | DRG 291 ==
LOC: HO.ED 12:25 → HO.EDOVER 13:05 → HO.IMC 06-20 08:47
PROVIDERS: Emergency Medicine; Internal Medicine; Admitting Provider Student in an Organized Health Care Education/Training Program; Emergency Provider Emergency Medicine; PCP Internal Medicine; Visit Provider Internal Medicine
DX: I13.0 Hypertensive heart and chronic kidney disease with heart failure and stage 1 through stage 4 chronic kidney disease, or unspecified chronic kidney disease (principal); I50.33 Acute on chronic diastolic (congestive) heart failure; J18.9 Pneumonia, unspecified organism; J96.01 Acute respiratory failure with hypoxia; J44.0 Chronic obstructive pulmonary disease with (acute) lower respiratory infection; E87.20 Acidosis, unspecified; E87.3 Alkalosis; J98.11 Atelectasis; E87.5 Hyperkalemia; E11.40 Type 2 diabetes mellitus with diabetic neuropathy, unspecified; D63.1 Anemia in chronic kidney disease; E78.5 Hyperlipidemia, unspecified; N18.30 Chronic kidney disease, stage 3 unspecified; R33.9 Retention of urine, unspecified; E11.22 Type 2 diabetes mellitus with diabetic chronic kidney disease; I35.0 Nonrheumatic aortic (valve) stenosis; I05.0 Rheumatic mitral stenosis; E03.9 Hypothyroidism, unspecified; T50.2X6A Underdosing of carbonic-anhydrase inhibitors, benzothiadiazides and other diuretics, initial encounter; Z91.128 Patient's intentional underdosing of medication regimen for other reason; L89.156 Pressure-induced deep tissue damage of sacral region; Z20.822 Contact with and (suspected) exposure to COVID-19; Z99.81 Dependence on supplemental oxygen; Z91.199 Patient's noncompliance with other medical treatment and regimen due to unspecified reason; Z79.4 Long term (current) use of insulin; Z79.890 Hormone replacement therapy; Z79.899 Other long term (current) drug therapy
CPT/HCPCS: 0241U; 36415; 71045; 71250; 80048; 80076; 81001; 82803; 82947; 83036; 83605; 83735; 83880; 84132; 84484; 85025; 85027; 87040; 93005; 93306; 94640; 97110; 97162; 99285; C1758; J0456; J0613; J0696; J1644; J1940; Q9957

== ENCOUNTER 2024-06-19 12:45 | Outpatient (BNV) | payer MEDICARE, SELFPAY | END 2024-06-20 07:00 | PROVIDERS: Admitting Provider Student in an Organized Health Care Education/Training Program; Emergency Provider Emergency Medicine; PCP Internal Medicine; Visit Provider Internal Medicine Cardiovascular Disease | DX: I35.0 Nonrheumatic aortic (valve) stenosis (principal); I34.81 Nonrheumatic mitral (valve) annulus calcification; I36.1 Nonrheumatic tricuspid (valve) insufficiency | CPT/HCPCS: 93306 ==

== ENCOUNTER → 2024-06-19 12:45 | Outpatient (BNV) | payer MEDICARE, SELFPAY | PROVIDERS: Admitting Provider Student in an Organized Health Care Education/Training Program; Emergency Provider Emergency Medicine; PCP Internal Medicine; Visit Provider Internal Medicine Hypertension Specialist | DX: N17.9 Acute kidney failure, unspecified (principal); N18.30 Chronic kidney disease, stage 3 unspecified | CPT/HCPCS: 99223; 99232 ==

== ENCOUNTER → 2024-06-19 12:45 | Outpatient (BNV) | payer MEDICARE, SELFPAY | PROVIDERS: Admitting Provider Student in an Organized Health Care Education/Training Program; Emergency Provider Emergency Medicine; PCP Internal Medicine; Visit Provider Student in an Organized Health Care Education/Training Program | DX: I50.33 Acute on chronic diastolic (congestive) heart failure (principal); N17.9 Acute kidney failure, unspecified; N18.30 Chronic kidney disease, stage 3 unspecified | CPT/HCPCS: 99223; 99232; 99239 ==

== ENCOUNTER → 2024-06-19 12:45 | Outpatient (BNV) | payer MEDICARE, SELFPAY | PROVIDERS: Admitting Provider Student in an Organized Health Care Education/Training Program; Emergency Provider Emergency Medicine; PCP Internal Medicine; Visit Provider Internal Medicine Cardiovascular Disease | DX: I50.9 Heart failure, unspecified (principal); I10 Essential (primary) hypertension | CPT/HCPCS: 99222; 99233 ==

== ENCOUNTER 2024-08-03 13:00 | Inpatient (IN) | payer MEDICARE, SELFPAY ==
[2024-08-03] VITALS (18 sets, daily range): BP systolic 115–157; BP diastolic 41–67; PULSE 59–77; RESP 14–50; TEMP 36.6; O2SAT 84–99; BMI 34.2; BMI 36.1
--- NOTE | ~2024-08-03 | XR_ITS ---
EXAMINATION: XR CHEST CLINICAL INFORMATION: Thoracentesis COMPARISON: Chest 08/03/2024 TECHNIQUE: Frontal view of the chest was obtained. FINDINGS: There is moderate left pleural effusion with underlying left lower lobe atelectasis/consolidation. Rest of the lungs are expanded and clear. Heart size is enlarged. Pulmonary vascularity is normal. No gross bony abnormality seen. There is mild deformity of right mid ribs likely old healed fractures. No acute fracture seen. XR/XR chest 1V IMPRESSION: 1. Moderate left pleural effusion with underlying left lower lobe atelectasis/consolidation. 2. Mild pulmonary vascular congestion. Electronically signed by: Grant Willis MD 08/03/2024 08:26 PM EDT RP
--- NOTE | ~2024-08-03 | XR_ITS ---
EXAMINATION: XR CHEST CLINICAL INFORMATION: Shortness of breath COMPARISON: Prior chest radiograph 06/14/2024. TECHNIQUE: Frontal view of the chest was obtained. FINDINGS: Abnormal. Increasing consolidation and pleural effusion left base obscured in the left heart border. Left upper lung and right lung clear. Heart is borderline with normal caliber pulmonary vessels. Old right-sided rib fractures noted. XR/XR chest 1V IMPRESSION: Increasing left basilar consolidation and pleural effusion could reflect pneumonia. Electronically signed by: Riley Fuentes MD 08/03/2024 04:14 PM EDT
--- NOTE | 2024-08-03 13:22 | ED.SOB ---
HPI - SOB/Dyspnea General Chief Complaint: Dyspnea Stated Complaint: DIFF BREATHING, 100% NRB @10LPM PER EMS Time Seen by Provider: 08/03/24 13:22 Source: patient, EMS, RN notes reviewed and old records reviewed Mode of arrival: EMS Limitations: no limitations History of Present Illness ED Provider: Diaz Knowles PA-C HPI Narrative: 78-year-old female with a PMH significant for?chronic hypoxic respiratory failure on 2L NC, COPD, HFpEF, pernicious anemia, HTN, HLD insulin-dependent type 2 diabetes with neuropathy, CKD III, hypothyroidism, and mood disorder who presents to the ED from home via EMS for evaluation of difficulty breathing that started 2-3 days ago. She reports she feels like her CHF is acting up again. She reports compliance with her diuretics. She denies any significant weight gain. She denies any changes in her diet. She was admitted here in May for CHF exacerbation, went to rehab after that and has been home for the last 3 weeks. She denies any fever or chills, no chest pain, abdominal pain, nausea, vomiting, diarrhea. She endorses weakness and productive cough, does not look at the color of the phlegm. She intermittently has productive cough with her COPD. She denies any wheezing. No known sick contacts. EMS reports patient was hypoxic to 84% on room air. She was placed on 2 L nasal cannula with improvement in SpO2 93%. She reports did ongoing shortness of breath and difficulty breathing so she was replaced on 8 L via non-rebreather. MD elicited complaint: shortness of breath Pertinent past history: COPD and congestive heart failure Onset (ago): day(s) Timing: progressively worsening Severity: severe Exacerbating factors: exertion, movement and coughing Relieving factors: oxygen and upright position Known history of: COPD, congestive heart failure and diabetes Associated symptoms: cough and sputum production Treatment prior to arrival: oxygen Related Data Home oxygen amount: 2 liters Home Medications ?Medication ?Instructions ?Recorded ?Confirmed insulin glargine 100 unit/mL (3 15 unit subcut BEDTIME 06/19/24 06/19/24 mL) subcutaneous pen (Basaglar KwikPen U-100 Insulin) levothyroxine 200 mcg tablet 200 mcg PO DAILY@0600 06/19/24 06/19/24 Previous Rx's ?Medication ?Instructions ?Recorded insulin syringe-needle U-100 0.5 #100 ea 07/29/23 mL 31 gauge x 5/16 (BD Insulin Syringe Ultra-Fine) pen needle, diabetic 31 gauge x #100 ea 07/29/23 516 (1st Tier Unifine Pentips) gemfibrozil 600 mg tablet 600 mg PO BID 90 days #180 tabs 02/15/24 lorazepam 0.5 mg tablet 0.5 mg PO TID PRN anxiety 30 days 04/04/24 #90 tabs duloxetine 20 mg capsule,delayed 20 mg PO DAILY 90 days #90 caps 05/14/24 release (Cymbalta) albuterol sulfate 90 mcg/actuation 2 puff inhalation Q6H PRN 05/31/24 aerosol inhaler (Ventolin HFA) shortness of breath or wheezing 30 days #8.5 grams atorvastatin 40 mg tablet 40 mg PO BEDTIME 90 days #90 tabs 06/19/24 amlodipine 10 mg tablet 10 mg PO DAILY #0 tabs 06/23/24 cefuroxime axetil 500 mg tablet 500 mg PO BID #6 tabs 06/23/24 blood sugar diagnostic (Accu-Chek #100 ea 07/26/24 Odilia Plus test strips) blood sugar diagnostic (Accu-Chek #100 ea 07/26/24 Guide test strips) bumetanide 1 mg tablet 2 mg PO DAILY #90 tabs 07/26/24 empagliflozin 10 mg tablet 10 mg PO DAILY #90 tabs 07/26/24 (Jardiance) lancets (Accu-Chek Softclix #100 ea 07/26/24 Lancets) Allergies Allergy/AdvReac Type Severity Reaction Status Date / Time ibuprofen [From Motrin] Allergy Unknown swelling Verified 08/03/24 13:26 codeine [CODEINE] AdvReac Unknown SLEEPY Verified 08/03/24 13:26 Review of Systems Review of Systems: Yes all other systems are reviewed and are negative PMFSH Past Medical History Medical History MARJORIE (acute kidney injury) Left bundle branch block Morbid obesity Chronic pain syndrome Anxiety Pernicious anemia COPD (chronic obstructive pulmonary disease) CHF (congestive heart failure) Hypothyroidism Essential hypertension Diabetes mellitus Pure hypercholesterolemia Surgical History H/O left knee surgery Deficient knowledge of leg surgery History of tonsillectomy and adenoidectomy History of appendectomy Family History Family History Father CVD (cardiovascular disease) Mother No problems noted. Family/Other FH: mental illness Social History Social History Household Members: Children Housing: House Do you presently have visiting nurse or other home services: Yes ([facility]) Alcohol intake: unknown Patient Tobacco Use Status: Former Tobacco user Tobacco use type: Cigarette Smoked in Last 30 Days: No e-Cigarette/Vaping Use: Never Used Second Hand Smoke Exposure: No Use of substances other than those prescribed or required for medical reasons: No Advance Directives: Yes Advance Directives on File: Yes Advance Directives Date on File: 06/24/24 Do you have a plan to hurt others: No Plan service: No Current occupational status: disabled Cognitive needs: Yes Hearing needs: No Vision needs: No Physical Exam Vital Signs: Vital Signs: Last Vital Signs Pulse 64 08/03/24 14:57 Resp 24 H 08/03/24 14:57 BP 152/53 H 08/03/24 14:57 Pulse Ox 96 08/03/24 14:57 O2 Del Method BiPAP 08/03/24 14:57 BMI result Body Mass Index 34.2 Appearance: Lethargic female, appears older than stated age, on oxygen, tachypnea with moderate respiratory distress Head: normocephalic, atraumatic. Eyes: Pupils equal, round and reactive to light. ENT: Pharynx normal. No tonsillar swelling or exudate. Neck: Normal inspection. Neck supple. CVS: Normal heart rate and rhythm. Pulses normal. Respiratory: Moderate respiratory distress, increased respiratory rate and belly breathing pattern present. Breath sounds severely diminished in the left lung, mildly decreased in the right lower lobe. Abdomen: Obese, Soft and nontender. +BS x4 Skin: Skin warm and dry. Normal skin color. Normal skin turgor. No rashes. Extremities: Bilateral lower extremity swelling that is pitting, 3+ of the lower legs. Lower legs are erythematous, dry and scaling, tender to touch anteriorly Neuro/psych: Arouses to voice and answers questions appropriately. Diffusely weak, nonfocal, strength is equal and symmetrical throughout. Oriented X 3. No motor deficit. No sensory deficit. CN II-XII intact. Normal speech and cognition. Course Reevaluation(s) Reevaluation #1: Concern for infection at this time. Patient has a positive urinalysis. Moyer in place. She was refusing a PureWick. 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 She also has an acute kidney injury on top of her CKD. Moyer is reasonable at this point. She has no leukocytosis or fever. IV Rocephin was ordered. She was treated for hyperkalemia with calcium, insulin, D50, albuterol. She was given Bumex as well. Time: 15:11 Medications Administered Discontinued Medications Generic Name Dose Route Start Last Admin Trade Name Freq PRN Reason Stop Dose Admin Albuterol Sulfate 5 mg 08/03/24 14:07 08/03/24 14:17 Albuterol Sulfate (0.083%) 2.5 Mg/3 Ml Vial.Neb INHALE 08/03/24 14:08 5 mg ONCE ONE Administration Bumetanide 1 mg 08/03/24 13:59 08/03/24 14:34 Bumetanide 1 Mg/4 Ml Vial IVPUSH 08/03/24 14:00 1 mg ONCE ONE Administration Protocol Dextrose 25 gm 08/03/24 14:15 08/03/24 14:34 Dextrose 50 % 25 Gm/50 Ml Syringe IVPUSH 08/03/24 14:16 25 gm ONCE ONE Administration Calcium Gluconate 2 gm in 100 mls @ 50 mls/hr 08/03/24 14:06 08/03/24 14:34 Calcium Gluconate IV 08/03/24 16:05 50 mls/hr ONCE ONE Administration Ceftriaxone Sodium 1 gm/ 50 mls @ 100 mls/hr 08/03/24 15:10 08/03/24 15:35 Sodium Chloride IV 08/03/24 15:39 100 mls/hr ONCE ONE Administration Insulin Human Regular 5 unit 08/03/24 14:07 08/03/24 14:36 Insulin Regular, Human 100 Unit/Ml 10 Ml Vial IVPUSH 08/03/24 14:08 5 unit ONCE ONE Administration Medical Decision Making Medical Decision Making [facility] Narrative: 78-year-old female with a PMH significant for?chronic hypoxic respiratory failure on 2L NC, COPD, HFpEF, pernicious anemia, HTN, HLD insulin-dependent type 2 diabetes with neuropathy, CKD III, hypothyroidism, and mood disorder who presents to the ED from home via EMS for evaluation of difficulty breathing that started 2-3 days ago. Lethargic and tachypneic on arrival. Saturating well on 2 L will continues to complain of shortness of breath and difficulty breathing. No fever or tachycardia. Low suspicion for infection at this time. She is not wheezing, low suspicion for COPD exacerbation. Patient found to have hypercarbic respiratory failure with pH of 7.11 with PCO2 66. Lactic acid is low at 0.4. Bicarb was 19. She also has an MARJORIE on top of her CKD with acute hyperkalemia. Spoke with the lab there is no hemolysis. Potassium is 6.5. Mildly elevated peak T-waves. Heart rates are in the 60s to 80s. Blood pressure is stable in the 150s. Patient was placed on rescue BiPAP 16/8 with 28% FiO2. She is getting good tidal volumes around 400. She has triggering 100% of the time. She arouses to voice. Patient was given IV Bumex, calcium gluconate, insulin, D50, albuterol. 15: 30 - Patient continues to be tachypneic and acidotic on BiPAP. Repeat labs are pending. Will plan to admit to the intensive care unit for further management. Differential Diagnosis Differential Diagnoses: The differential diagnosis associated with the presentation includes Acute COPD exacerbation, acute CHF exacerbation, pneumonia, pleural effusion, malignant effusion Admission/Observation Consideration of admission/observation: Escalation of care including admission/observation considered Consult Healthcare Provider Management of the patient was discussed with: [employer] Dr. Baires Lab Data [facility] Lab Attestation statement: I reviewed the patient's lab results. Stable anemia, acute hyperkalemia, MARJORIE on CKD 08/03/24 13:37 08/03/24 13:37 Labs: Lab Results 08/03/24 08/03/24 08/03/24 Range/Units 13:37 13:45 14:48 WBC 9.3 (4.8-10.8) X10*3/uL RBC 3.35 L (4.20-5.50) X10*6/uL Hgb 10.2 L (12.0-16.0) g/dl Hct 32.9 L (37.0-47.0) % MCV 98.2 H (80.0-98.0) fL MCH 30.4 (27.0-33.0) pg MCHC 31.0 (31.0-35.0) g/dl RDW 14.0 (11.0-16.0) % Plt Count 331 (160-400) X10*3/uL MPV 9.0 L (9.4-12.3) fL Immature Gran % (Auto) 1.2 H (0.0-0.4) % Neut % (Auto) 89.6 H (45-73) % Lymph % (Auto) 4.0 L (20-40) % Brooke % (Auto) 4.6 (2-11) % Eos % (Auto) 0.3 (0-4) % Baso % (Auto) 0.3 (0-2) % Lymph # (Auto) 0.4 L (1.2-4.9) X10*3/uL Brooke # (Auto) 0.4 (0.1-1.2) X10*3/uL Eos # (Auto) 0.0 (0.0-0.4) X10*3/uL Baso # (Auto) 0.0 (0.0-0.2) X10*3/uL Abs Immat Gran (auto) 0.11 H (0.00-0.03) X10*3/uL Absolute Neuts (auto) 8.3 (2.0-8.3) x10*3/uL Absolute Nucleated RBC 0.000 (0.0-0.012) X10*3/uL Nucleated RBC % (auto) 0.0 (0.0-0.2) /100WBC O2 Saturation % ABG pH at Pt Temp (7.35-7.45) ABG pCO2 at Pt Temp (32-45) mmHg ABG pO2 at Pt Temp (83-108) mmHg ABG HCO3 (22-26) mmol/L ABG Base Excess (Actual) mmol/L VBG pH 7.11 L* (7.32-7.43) VBG pCO2 66 mmHg VBG pO2 67 mmHg VBG HCO3 21 L (22-26) mmol/L VBG O2 Saturation 93.0 % VBG Base Excess -8.7 mmol/L Sodium 141 (135-145) mmol/L Potassium 6.5 H* D (3.3-5.1) mmol/L Chloride 111 H (96-108) mmol/L Carbon Dioxide 19 L (22-29) mmol/L Anion Gap 18 (12-20) BUN 83 H (9-16) mg/dL Creatinine 2.12 H (0.5-1.4) mg/dL Estim Creat Clear Calc 26.4 Estimated GFR 23 Random Glucose 157 H (60-115) mg/dL Lactic Acid 0.4 L (0.5-2.0) mmol/L Calcium 8.3 L (8.4-10.2) mg/dL Magnesium 3.1 H (1.6-2.6) mg/dL Total Bilirubin 0.2 (0.0-1.0) mg/dL Direct Bilirubin < 0.2 (0.0-0.5) mg/dL AST 18 (5-31) U/L ALT 19 (0-31) U/L Alkaline Phosphatase 137 H (39-117) U/L Troponin I High Sens 13.2 (<3.5-17.0) ng/L B-Natriuretic Peptide 496 H (<100) pg/mL Total Protein 7.5 (6.5-8.0) g/dL Albumin 3.6 (3.5-5.0) g/dL Urine Color Yellow Urine Appearance Turbid Urine pH 6.0 (5.0-9.0) Ur Specific Safford 1.015 (1.005-1.025) Urine Protein 300 (3+) H (Neg-Trace) mg/dL Urine Glucose (UA) 500 H (Negative) mg/dL Urine Ketones Negative (Negative) mg/dL Urine Blood Moderate (2+) H (Negative) Urine Nitrite Negative (Negative) Ur Leukocyte Esterase Large (3+) H (Negative) Urine RBC 3-5 H (0-2) /HPF Urine WBC >50 H (0-5) /HPF Ur Squamous Epith Cells 6-10 (0-2) /HPF Urine Bacteria 4+ (None Seen) Hyaline Casts >20 (0-2) /LPF 08/03/24 08/03/24 Range/Units 15:38 15:52 WBC (4.8-10.8) X10*3/uL RBC (4.20-5.50) X10*6/uL Hgb (12.0-16.0) g/dl Hct (37.0-47.0) % MCV (80.0-98.0) fL MCH (27.0-33.0) pg MCHC (31.0-35.0) g/dl RDW (11.0-16.0) % Plt Count (160-400) X10*3/uL MPV (9.4-12.3) fL Immature Gran % (Auto) (0.0-0.4) % Neut % (Auto) (45-73) % Lymph % (Auto) (20-40) % Brooke % (Auto) (2-11) % Eos % (Auto) (0-4) % Baso % (Auto) (0-2) % Lymph # (Auto) (1.2-4.9) X10*3/uL Brooke # (Auto) (0.1-1.2) X10*3/uL Eos # (Auto) (0.0-0.4) X10*3/uL Baso # (Auto) (0.0-0.2) X10*3/uL Abs Immat Gran (auto) (0.00-0.03) X10*3/uL Absolute Neuts (auto) (2.0-8.3) x10*3/uL Absolute Nucleated RBC (0.0-0.012) X10*3/uL Nucleated RBC % (auto) (0.0-0.2) /100WBC O2 Saturation 97.0 % ABG pH at Pt Temp 7.15 L* (7.35-7.45) ABG pCO2 at Pt Temp 54 H (32-45) mmHg ABG pO2 at Pt Temp 89 (83-108) mmHg ABG HCO3 19 L (22-26) mmol/L ABG Base Excess (Actual) -9.2 mmol/L VBG pH 7.11 L* (7.32-7.43) VBG pCO2 58 mmHg VBG pO2 38 mmHg VBG HCO3 18 L (22-26) mmol/L VBG O2 Saturation 61.0 % VBG Base Excess -10.5 mmol/L Sodium (135-145) mmol/L Potassium (3.3-5.1) mmol/L Chloride (96-108) mmol/L Carbon Dioxide (22-29) mmol/L Anion Gap (12-20) BUN (9-16) mg/dL Creatinine (0.5-1.4) mg/dL Estim Creat Clear Calc Estimated GFR Random Glucose (60-115) mg/dL Lactic Acid (0.5-2.0) mmol/L Calcium (8.4-10.2) mg/dL Magnesium (1.6-2.6) mg/dL Total Bilirubin (0.0-1.0) mg/dL Direct Bilirubin (0.0-0.5) mg/dL AST (5-31) U/L ALT (0-31) U/L Alkaline Phosphatase (39-117) U/L Troponin I High Sens (<3.5-17.0) ng/L B-Natriuretic Peptide (<100) pg/mL Total Protein (6.5-8.0) g/dL Albumin (3.5-5.0) g/dL Urine Color Urine Appearance Urine pH (5.0-9.0) Ur Specific Safford (1.005-1.025) Urine Protein (Neg-Trace) mg/dL Urine Glucose (UA) (Negative) mg/dL Urine Ketones (Negative) mg/dL Urine Blood (Negative) Urine Nitrite (Negative) Ur Leukocyte Esterase (Negative) Urine RBC (0-2) /HPF Urine WBC (0-5) /HPF Ur Squamous Epith Cells (0-2) /HPF Urine Bacteria (None Seen) Hyaline Casts (0-2) /LPF ABG Data ABG Results: Attestation ABG: I personally reviewed and interpreted this ABG as follows: Interpretation: Acute hypercarbic respiratory failure Independent Interpretation I performed an independent interpretation of an: EKG and Plain X-Ray Interpretation: EKG with irregular rhythm, HR 60 bpm, irregular intervals, unclear if P waves are present, no ST segment elevations or depressions. compared to prior EKG she had sinus arrhythmia in May CXR with rotation, left sided pleural effusion much larger than prior Radiology Impression Discussion of test interpretation with radiology: I have reviewed the radiologist's reading. Independent Historian Clinical information obtained from an independent historian. History obtained from or confirmed by: EMS External Record Review External record reviewed: Inpatient record, Outpatient record, Prior outpatient labs and Prior outpatient radiology Tests considered The following testing was considered but not selected: CT scan chest - can be done inpatient if indicated Prescription Management I considered prescription management with: Antibiotic and Other (Diuretic) Chronic Conditions Patient?s care impacted by: Diabetes and Other (COPD, CHF) Critical Care Time Critical Care Time Critical Care Time: Yes Total Critical Care Time: 50 Attestation: I have personally provided critical care time exclusive of time spent on separately billable procedures. Time includes review of lab data, radiology results, discussion with consultants, and monitoring for potential decompensation. Intervention performed as documented. Discharge Plan Discharge Clinical Impression: Pleural effusion, Acute kidney injury superimposed on CKD, Acute hyperkalemia Acute and chronic respiratory failure Qualifiers: Respiratory failure complication: hypoxia and hypercapnia Qualified Code(s): J96.21 - Acute and chronic respiratory failure with hypoxia Patient Disposition: Admitted As Inpatient Print Language: Sri Lankan
--- NOTE | 2024-08-03 13:24 | ECG_ITS ---
Test Reason : SOB Blood Pressure : / mmHG Vent. Rate : 060 BPM Atrial Rate : 000 BPM P-R Int : 000 ms QRS Dur : 110 ms QT Int : 440 ms P-R-T Axes : 000 -32 086 degrees QTc Int : 440 ms Atrial fibrillation Left axis deviation Incomplete right bundle branch block Left ventricular hypertrophy with repolarization abnormality ( R in aVL , Gorge product ) Cannot rule out Septal infarct , age undetermined Abnormal ECG When compared with ECG of 19-JUN-2024 16:37, Atrial fibrillation has replaced Sinus rhythm Minimal criteria for Septal infarct are now Present Referred By: Isaura Knowles Electronically Signed By:BECKIE GARRETT MD
[2024-08-03 13:45] LABS: MANUAL DIFF FLAG NO
[2024-08-03 13:47] LABS: Basophils Percent Auto 0.3 % (0-2); Eosinophils Percent Auto 0.3 % (0-4); Hematocrit 32.9 % (37.0-47.0); Hemoglobin 10.2 g/dl (12.0-16.0); Imm Gran Abs Auto 0.11 X10*3/uL (0.00-0.03); Imm Gran Pct Auto 1.2 % (0.0-0.4); Lymphocytes Absolute Auto 0.4 X10*3/uL (1.2-4.9); Mean Corpuscular Hemoglobin 30.4 pg (27.0-33.0); Mean Corpuscular Volume 98.2 fL (80.0-98.0); Monocytes Absolute Auto 0.4 X10*3/uL (0.1-1.2); Monocytes Percent Auto 4.6 % (2-11); Neutrophils Absolute Auto 8.3 x10*3/uL (2.0-8.3); Neutrophils Percent Auto 89.6 % (45-73); Platelet Count 331 X10*3/uL (160-400); Red Blood Count 3.35 X10*6/uL (4.20-5.50); White Blood Count 9.3 X10*3/uL (4.8-10.8)
[2024-08-03 13:54] LABS: VBG Base Excess -8.7 mmol/L; VBG HCO3 21 mmol/L (22-26); VBG pCO2 66 mmHg; VBG pH 7.11 (7.32-7.43); VBG pO2 67 mmHg
[2024-08-03 13:55] LABS: Venous Blood Gas Refer to POC result
[2024-08-03 14:01] LABS: Lactic Acid 0.4 mmol/L (0.5-2.0)
[2024-08-03 14:07] LABS: Alanine Aminotransferase 19 U/L (0-31); Albumin Level 3.6 g/dL (3.5-5.0); Alkaline Phosphatase 137 U/L (39-117); Anion Gap 18 (12-20); Aspartate Amino Transferase 18 U/L (5-31); Bilirubin Direct < 0.2 mg/dL (0.0-0.5); Bilirubin Total 0.2 mg/dL (0.0-1.0); Blood Urea Nitrogen 83 mg/dL (9-16); Calcium 8.3 mg/dL (8.4-10.2); Carbon Dioxide 19 mmol/L (22-29); Chloride 111 mmol/L (96-108); Creatinine Clr Calc Pharmacy 26.4; Estimated Glomerular Filt Rate 23; Glucose Random 157 mg/dL (60-115); Magnesium 3.1 mg/dL (1.6-2.6); Potassium 6.5 mmol/L (3.3-5.1); Sodium 141 mmol/L (135-145); Total Protein 7.5 g/dL (6.5-8.0)
[2024-08-03 14:08] LABS: B Type Natriuretic Peptide 496 pg/mL (<100)
[2024-08-03 14:13] LABS: Troponin-I High Sensitivity 13.2 ng/L (<3.5-17.0)
[2024-08-03] MEDS: Albuterol Sulfate (0.083%) 2.5 MG/3 ML VIAL.NEB 5 MG INHALE (14:17)
[2024-08-03] MEDS: Calcium Gluconate/NaCl,Iso-Osm 2 GM/100 ML PLAST..BAG IV (14:34)
[2024-08-03] MEDS: Bumetanide 1 MG/4 ML VIAL IVPUSH (14:34)
[2024-08-03] MEDS: Dextrose 50 % 25 GM/50 ML SYRINGE IVPUSH (14:34)
[2024-08-03] MEDS: Insulin Regular, Human 100 UNIT/ML 10 ML VIAL IVPUSH (14:36)
[2024-08-03 15:05] LABS: Appearance Urine Turbid; Color Urine Yellow; Glucose Urine UA 500 mg/dL (Negative); Leukocyte Esterase Urine Large (3+) (Negative); Nitrite Urine Negative (Negative); Specific Gravity - Urine 1.015 (1.005-1.025); UMIC TRIGGER UACC YES; Urine Blood Moderate (2+) (Negative); Urine Ketones Negative (Negative); Urine Protein 300 (3+) mg/dL (Neg-Trace)
[2024-08-03 15:32] LABS: Bacteria Urine 4+ (None Seen); Hyaline Casts Urine >20 /LPF (0-2); UACC Culture Trigger YES; WBC Urine >50 /HPF (0-5)
[2024-08-03] MEDS: cefTRIAXone sodium 1 GM in 0.9 % Sodium Chloride 50 ML IV (15:35)
[2024-08-03 15:48] LABS: VBG Base Excess -10.5 mmol/L; VBG HCO3 18 mmol/L (22-26); VBG pCO2 58 mmHg; VBG pH 7.11 (7.32-7.43); VBG pO2 38 mmHg
[2024-08-03 15:48] LABS: Venous Blood Gas Refer to POC result
--- NOTE | 2024-08-03 15:48 | PC.NURSE ---
VBG critical reported from lab as pH 7.106, Isaura provider made aware, RT called, will come adjust settings, requested ABG ordered, Isaura to order.
[2024-08-03 16:02] LABS: ABG Base Excess -9.2 mmol/L; ABG HCO3 19 mmol/L (22-26); ABG pCO2 54 mmHg (32-45); ABG pH 7.15 (7.35-7.45); ABG pO2 89 mmHg (83-108)
[2024-08-03 16:49] LABS: Anion Gap 21 (12-20); Blood Urea Nitrogen 77 mg/dL (9-16); Calcium 8.3 mg/dL (8.4-10.2); Carbon Dioxide 15 mmol/L (22-29); Chloride 114 mmol/L (96-108); Creatinine Clr Calc Pharmacy 26.9; Estimated Glomerular Filt Rate 23; Glucose Random 170 mg/dL (60-115); Potassium 5.7 mmol/L (3.3-5.1); Sodium 144 mmol/L (135-145)
--- NOTE | 2024-08-03 16:55 | P.HPCC_ITS ---
History of Present Illness Date of Service: 08/03/24 Chief Complaint: Shortness of breaths 78-year-old lady with past medical history of COPD, pulmonary hypertension and right heart failure, hypertension, diabetes mellitus, CKD-III, hyperlipidemia, hypothyroidism, and mood disorder presented to the hospital with complaints of shortness of breath for past couple of days. Apparently patient was admitted to the hospital in May for heart failure exacerbation. In the ED patient was placed on the BiPAP support to worsening shortness of breath, labs suggestive of worsening MARJORIE on CKD with hyperkalemia to 6.4, ABG showing a pH of 7.11 so MICU was consulted for admission. Review of Systems 2 Review of Systems: Unable to obtain due to clinical status PMFSH Past Medical History Medical History MARJORIE (acute kidney injury) Left bundle branch block Morbid obesity Chronic pain syndrome Anxiety Pernicious anemia COPD (chronic obstructive pulmonary disease) CHF (congestive heart failure) Hypothyroidism Essential hypertension Diabetes mellitus Pure hypercholesterolemia Family History Family History Father CVD (cardiovascular disease) Mother No problems noted. Family/Other FH: mental illness Surgical History Surgical History H/O left knee surgery Deficient knowledge of leg surgery History of tonsillectomy and adenoidectomy History of appendectomy Social History Social History Household Members: Children Housing: House Do you presently have visiting nurse or other home services: Yes ([facility]) Alcohol intake: unknown Patient Tobacco Use Status: Former Tobacco user Tobacco use type: Cigarette Smoked in Last 30 Days: No e-Cigarette/Vaping Use: Never Used Second Hand Smoke Exposure: No Use of substances other than those prescribed or required for medical reasons: No Advance Directives: Yes Advance Directives on File: Yes Advance Directives Date on File: 06/24/24 Do you have a plan to hurt others: No Plan service: No Current occupational status: disabled Cognitive needs: Yes Hearing needs: No Vision needs: No Meds Allergies Allergy/AdvReac Type Severity Reaction Status Date / Time ibuprofen [From Motrin] Allergy Unknown swelling Verified 08/03/24 13:26 codeine [CODEINE] AdvReac Unknown SLEEPY Verified 08/03/24 13:26 Active Medications: Current Medications Heparin Sodium (Porcine) (Heparin Sodium,Porcine 5,000 Unit/Ml Vial) 5,000 unit SUBCUT Q8H [facility] Pantoprazole Sodium (Pantoprazole Sodium 40 Mg/10 Ml Vial) 40 mg IVPUSH DAILY@0630 [facility] Home Medications ?Medication ?Instructions ?Recorded ?Confirmed ?Last Taken ?Type insulin glargine 100 unit/mL (3 15 unit subcut BEDTIME 06/19/24 06/19/24 06/18/24 History mL) subcutaneous pen (Basaglar KwikPen U-100 Insulin) levothyroxine 200 mcg tablet 200 mcg PO DAILY@0600 06/19/24 06/19/24 06/18/24 History Physical Exam 2 Vital Signs: Vital Signs: Last Vital Signs Pulse 64 08/03/24 14:57 Resp 38 H 08/03/24 16:10 BP 152/53 H 08/03/24 14:57 Pulse Ox 96 08/03/24 14:57 O2 Del Method BiPAP 08/03/24 14:57 BMI result Body Mass Index 34.2 General: acute distress, ill appearing and tired appearing Nutritional Appearance: well nourished and overweight Eyes: appearance normal, both eyes and all related structures; Alignment and Position: alignment normal and position normal Neck: No lymphadenopathy, no thyromegaly Resp: bilateral air entry equal, decreased breath sounds of the left flank area Cardio: Regular rate, regular rhythm; Heart sounds: S1 normal heart sound present and S2 normal heart sound present, pericardial edema present GI: soft, nontender, no guarding, no hepatosplenomegaly : bladder normal to inspection, bladder normal to palpation, no renal angle tenderness Skin: Erythematous skin over bilateral lower extremities Neuro: Confusion present, no focal deficits Results Labs 08/03/24 13:37 08/03/24 16:25 Labs: Laboratory Results - last 24 hr 08/03/24 08/03/24 08/03/24 13:37 13:45 14:48 MCV 98.2 H MCH 30.4 MCHC 31.0 RDW 14.0 Plt Count 331 MPV 9.0 L Immature Gran % (Auto) 1.2 H Neut % (Auto) 89.6 H Lymph % (Auto) 4.0 L [place] % (Auto) 4.6 Eos % (Auto) 0.3 Baso % (Auto) 0.3 Lymph # (Auto) 0.4 L [place] # (Auto) 0.4 Eos # (Auto) 0.0 Baso # (Auto) 0.0 Abs Immat Gran (auto) 0.11 H Absolute Neuts (auto) 8.3 Absolute Nucleated RBC 0.000 Nucleated RBC % (auto) 0.0 O2 Saturation ABG pH at Pt Temp ABG pCO2 at Pt Temp ABG pO2 at Pt Temp ABG HCO3 ABG Base Excess (Actual) VBG pH 7.11 L* VBG pCO2 66 VBG pO2 67 VBG HCO3 21 L VBG O2 Saturation 93.0 VBG Base Excess -8.7 Anion Gap 18 Estim Creat Clear Calc 26.4 Estimated GFR 23 Random Glucose 157 H Lactic Acid 0.4 L Calcium 8.3 L Magnesium 3.1 H Total Bilirubin 0.2 Direct Bilirubin < 0.2 AST 18 ALT 19 Alkaline Phosphatase 137 H Troponin I High Sens 13.2 B-Natriuretic Peptide 496 H Total Protein 7.5 Albumin 3.6 Urine Color Yellow Urine Appearance Turbid Urine pH 6.0 Ur Specific [place] 1.015 Urine Protein 300 (3+) H Urine Glucose (UA) 500 H Urine Ketones Negative Urine Blood Moderate (2+) H Urine Nitrite Negative Ur Leukocyte Esterase Large (3+) H Urine RBC 3-5 H Urine WBC >50 H Ur Squamous Epith Cells 6-10 Urine Bacteria 4+ Hyaline Casts >20 08/03/24 08/03/24 08/03/24 15:38 15:52 16:25 MCV MCH MCHC RDW Plt Count MPV Immature Gran % (Auto) Neut % (Auto) Lymph % (Auto) [place] % (Auto) Eos % (Auto) Baso % (Auto) Lymph # (Auto) [place] # (Auto) Eos # (Auto) Baso # (Auto) Abs Immat Gran (auto) Absolute Neuts (auto) Absolute Nucleated RBC Nucleated RBC % (auto) O2 Saturation 97.0 ABG pH at Pt Temp 7.15 L* ABG pCO2 at Pt Temp 54 H ABG pO2 at Pt Temp 89 ABG HCO3 19 L ABG Base Excess (Actual) -9.2 VBG pH 7.11 L* VBG pCO2 58 VBG pO2 38 VBG HCO3 18 L VBG O2 Saturation 61.0 VBG Base Excess -10.5 Anion Gap 21 H Estim Creat Clear Calc 26.9 Estimated GFR 23 Random Glucose 170 H Lactic Acid Calcium 8.3 L Magnesium Total Bilirubin Direct Bilirubin AST ALT Alkaline Phosphatase Troponin I High Sens B-Natriuretic Peptide Total Protein Albumin Urine Color Urine Appearance Urine pH Ur Specific [place] Urine Protein Urine Glucose (UA) Urine Ketones Urine Blood Urine Nitrite Ur Leukocyte Esterase Urine RBC Urine WBC Ur Squamous Epith Cells Urine Bacteria Hyaline Casts Imaging Radiologist's Impressions: Impressions Chest X-Ray 08/03/24 13:25 IMPRESSION: Increasing left basilar consolidation and pleural effusion could reflect pneumonia. Electronically signed by: Riley Fuentes MD 08/03/2024 04:14 PM EDT RP Assessment and Plan (1) Acute hyperkalemia: Status: Acute (2) Acute kidney injury superimposed on CKD: Status: Acute (3) Pleural effusion: Status: Acute (4) Acute and chronic respiratory failure: Qualifiers: Respiratory failure complication: hypoxia and hypercapnia Qualified Code(s): J96.21 - Acute and chronic respiratory failure with hypoxia; J96.22 - Acute and chronic respiratory failure with hypercapnia Status: Acute (5) Anemia: Status: Acute (6) Chronic pain syndrome: Status: Acute Plan Neuro: Acute encephalopathy possibly due to metabolic encephalopathy Close neurological status monitoring in the ICU every hour Cardiac: Congestive heart failure: CHF possibly secondary to pulmonary hypertension type 3 Last TTE in 06/14/2024 showing normal LV systolic function, possible mitral valve calcification, elevated RVSP, dilated RV and RA We will start the patient on Lasix 80 mg TID Respiratory: Acute on chronic hypoxemic and hypercapnic respiratory failure due to COPD exacerbation from heart failure Currently on BiPAP support, we will place the support 20/, we will increase the rate to 20 with which patient has been at volume over 15 L with some leak. Last ABG showed pH of 7.15, pco2 54 and bicarb of 19, changes in the BiPAP settings helped improving minute ventilation Bedside ultrasound showed left-sided pleural effusion, we will possibly do a thoracentesis GI: Oral feeds as tolerated Renal: Acute kidney injury possibly secondary to cardiorenal syndrome Has underlying CKD stage 3 We will closely monitor I's and O's Avoid nephrotoxic medications Heme: Chronic anemia, closely monitor H&H, transfuse for hemoglobin less than 7 grams/deciliter Endocrine: Blood sugars under control Sliding scale insulin as needed Infectious disease: We will send pancultures We will start empiric ceftriaxone Musculoskeletal: Decubitus ulcer prevention protocol Lines: Peripheral Prophylaxis: Heparin, pantoprazole Patient's acute decompensation in the respiratory status needing BiPAP support is due to combination of decompensated heart failure and COPD exacerbation. This is not related to infection or sepsis. Patient's initial lactate was normal, can not get fluid boluses due to decompensated heart failure. Blood cultures has been sent, received empiric antibiotics Total time managing care of this patient today: 45 minutes.
[2024-08-03 17:11] LABS: Phosphorus 5.3 mg/dL (2.7-4.5)
[2024-08-03] MEDS: fentaNYL citrate/PF 100 MCG/2 ML VIAL 50 MCG IVPUSH (17:18)
--- NOTE | 2024-08-03 17:53 | PHA.MEDREC ---
Addendum entered by Adalgisa Pugh [facility] 08/03/24 18:17: reviewed Original Note: Pharmacy Consult ? Medication Reconciliation Pharmacy has completed the medication reconciliation. Spoke to patients son to confirm med list. Son was able to tell he what medications his mom is taking. Son states patient injects Basaglar KwikPen is 15 units at bedtime.
[2024-08-03] MEDS: methylPREDNISolone Sod Succ 40 MG/ML VIAL IVPUSH (17:55)
[2024-08-03] MEDS: Furosemide 100 MG/10 ML VIAL 80 MG IVPUSH (17:59)
[2024-08-03] MEDS: Pantoprazole Sodium 40 MG/10 ML VIAL IVPUSH (18:09)
[2024-08-03] MEDS: Heparin Sodium,Porcine 5,000 UNIT/ML VIAL 5000 UNIT SUBCUT (18:15)
[2024-08-03] MEDS: cefTRIAXone sodium 2 GM in 0.9 % Sodium Chloride 50 ML IV (18:18)
[2024-08-03] MEDS: Azithromycin 500 MG in 0.9 % Sodium Chloride 250 ML 125 MG IV (18:18)
[2024-08-03 19:15] LABS: RBC Pleural Fluid 0.026 X10*6/uL; WBC Pleural Fluid 0.549 X10*3/uL
[2024-08-03 19:46] LABS: BF Shift QC OK YES
[2024-08-03 19:47] LABS: Neutrophils Pleural Fluid 11 %
[2024-08-03 19:48] LABS: Lymphocytes Pleural Fluid 12 %; Monocytes Pleural Fluid 11 %; Other Cells Plerual Fl 66 %
[2024-08-03 20:10] LABS: VBG Base Excess -9.4 mmol/L; VBG HCO3 15 mmol/L (22-26); VBG pCO2 30 mmHg; VBG pH 7.31 (7.32-7.43); VBG pO2 51 mmHg
[2024-08-03] MEDS: Albuterol/Iprat 2.5/0.5MG 3 ML AMPUL.NEB INHALE (20:22)
[2024-08-03 20:27] LABS: Alanine Aminotransferase 18 U/L (0-31); Albumin Level 3.4 g/dL (3.5-5.0); Alkaline Phosphatase 124 U/L (39-117); Anion Gap 18 (12-20); Aspartate Amino Transferase 16 U/L (5-31); Bilirubin Total 0.2 mg/dL (0.0-1.0); Blood Urea Nitrogen 83 mg/dL (9-16); Calcium 8.7 mg/dL (8.4-10.2); Carbon Dioxide 18 mmol/L (22-29); Chloride 112 mmol/L (96-108); Creatinine Clr Calc Pharmacy 26.9; Estimated Glomerular Filt Rate 23; Glucose Random 156 mg/dL (60-115); Potassium 5.6 mmol/L (3.3-5.1); Sodium 142 mmol/L (135-145); Total Protein 7.1 g/dL (6.5-8.0)
[2024-08-03] MEDS: Albuterol Sulfate (0.083%) 2.5 MG/3 ML VIAL.NEB 10 MG INHALE (21:19)
[2024-08-03] MEDS: Dextrose 10 % 250 ML 750 ML IV (21:20)
[2024-08-03] MEDS: Insulin Regular, Human 100 UNIT/ML 10 ML VIAL 10 UNIT IVPUSH (21:20)
[2024-08-03 23:40] LABS: ABG Refer to POC result
[2024-08-03 23:49] LABS: Venous Blood Gas Refer to POC result
[2024-08-04] VITALS (22 sets, daily range): BP systolic 118–166; BP diastolic 36–70; PULSE 67–80; RESP 12–56; TEMP 36.2–37.4; O2SAT 93–98; BMI 36.0
[2024-08-04] MEDS: Furosemide 100 MG/10 ML VIAL 80 MG IVPUSH ×3 (00:56→21:40)
[2024-08-04] MEDS: Heparin Sodium,Porcine 5,000 UNIT/ML VIAL 5000 UNIT SUBCUT ×4 (00:56→23:40)
[2024-08-04] MEDS: methylPREDNISolone Sod Succ 40 MG/ML VIAL IVPUSH ×2 (00:56→08:18)
[2024-08-04] MEDS: 0.9 % Sodium Chloride Flush 3 ML SYRINGE IVFLUSH ×4 (01:02→23:41)
--- NOTE | 2024-08-04 01:29 | HO.SKINPHOTO ---
Location: Bilateral Buttocks Category: Pressure Stage: DTI
[2024-08-04] MEDS: Albuterol/Iprat 2.5/0.5MG 3 ML AMPUL.NEB INHALE ×5 (04:03→19:03)
[2024-08-04] MEDS: LORazepam 2 MG/ML VIAL 0.5 MG IVPUSH (04:07)
[2024-08-04 05:19] LABS: Glucose, Whole Blood 183 mg/dL (60-115)
[2024-08-04] MEDS: Pantoprazole Sodium 40 MG/10 ML VIAL IVPUSH (05:44)
[2024-08-04 05:47] LABS: VBG HCO3 16 mmol/L (22-26); VBG pCO2 25 mmHg; VBG pH 7.43 (7.32-7.43); VBG pO2 66 mmHg
[2024-08-04 05:52] LABS: Basophils Percent Auto 0.2 % (0-2); Eosinophils Percent Auto 0.2 % (0-4); Hematocrit 27.4 % (37.0-47.0); Hemoglobin 8.7 g/dl (12.0-16.0); Imm Gran Abs Auto 0.04 X10*3/uL (0.00-0.03); Imm Gran Pct Auto 0.6 % (0.0-0.4); Lymphocytes Absolute Auto 0.1 X10*3/uL (1.2-4.9); Lymphocytes Percent Auto 1.6 % (20-40); MANUAL DIFF FLAG SCAN; Mean Corpuscular HGB Conc 31.8 g/dl (31.0-35.0); Mean Corpuscular Hemoglobin 29.8 pg (27.0-33.0); Mean Corpuscular Volume 93.8 fL (80.0-98.0); Mean Platelet Volume 9.1 fL (9.4-12.3); Monocytes Absolute Auto 0.1 X10*3/uL (0.1-1.2); Monocytes Percent Auto 0.8 % (2-11); Neutrophils Percent Auto 96.6 % (45-73); Platelet Count 291 X10*3/uL (160-400); Red Blood Count 2.92 X10*6/uL (4.20-5.50); SCAN SMEAR FLAG 1; White Blood Count 6.2 X10*3/uL (4.8-10.8)
[2024-08-04 05:52] LABS: Venous Blood Gas Refer to POC result
[2024-08-04 06:07] LABS: Alanine Aminotransferase 15 U/L (0-31); Albumin Level 3.2 g/dL (3.5-5.0); Alkaline Phosphatase 110 U/L (39-117); Anion Gap 18 (12-20); Aspartate Amino Transferase 15 U/L (5-31); Bilirubin Total 0.2 mg/dL (0.0-1.0); Blood Urea Nitrogen 82 mg/dL (9-16); Calcium 8.8 mg/dL (8.4-10.2); Carbon Dioxide 17 mmol/L (22-29); Chloride 111 mmol/L (96-108); Creatinine Clr Calc Pharmacy 24.8; Estimated Glomerular Filt Rate 21; Glucose Random 197 mg/dL (60-115); Magnesium 2.7 mg/dL (1.6-2.6); Phosphorus 3.5 mg/dL (2.7-4.5); Potassium 4.9 mmol/L (3.3-5.1); Sodium 141 mmol/L (135-145); Total Protein 6.5 g/dL (6.5-8.0); Triglycerides 82 mg/dL (<150)
[2024-08-04 06:28] LABS: SLIDE REVIEW VERIFIED
--- NOTE | 2024-08-04 08:12 | P.PNCC_ITS ---
Subjective Subjective Date of Service: 08/04/24 Critical Care Time (minutes): 35 Comment: Underwent thoracentesis with 400 cc of fluid removal yesterday following which her respiratory status improved and currently she is stable on high-flow nasal cannula. Physical Exam 2 Vital Signs: Vital Signs: Last Vital Signs Temp 98.2 F 08/04/24 08:00 Pulse 69 08/04/24 08:00 Resp 20 08/04/24 08:00 BP 132/49 L 08/04/24 08:00 Pulse Ox 96 08/04/24 08:00 O2 Del Method High Flow Nasal C annula 08/04/24 08:00 O2 Flow Rate 50 08/04/24 08:00 FiO2 32 08/04/24 08:00 BMI result Body Mass Index 36.0 General: Ill-appearing, normal mentation Nutritional Appearance: well nourished and overweight Eyes: appearance normal, both eyes and all related structures; Alignment and Position: alignment normal and position normal Neck: No lymphadenopathy, no thyromegaly Resp: bilateral air entry equal, decreased breath sounds in the left axillary area Cardio: Regular rate, regular rhythm; Heart sounds: S1 normal heart sound present and S2 normal heart sound present GI: soft, nontender, no guarding, no hepatosplenomegaly : bladder normal to inspection, bladder normal to palpation, no renal angle tenderness Skin: no rashes or lesions noted and elasticity normal Neuro: oriented to person, oriented to place, oriented to time and moves all extremities Objective Data Labs 08/04/24 05:40 08/04/24 05:40 Labs: Laboratory Results - last 24 hr 08/03/24 08/03/24 08/03/24 13:37 13:45 14:48 WBC 9.3 RBC 3.35 L Hgb 10.2 L Hct 32.9 L MCV 98.2 H MCH 30.4 MCHC 31.0 RDW 14.0 Plt Count 331 MPV 9.0 L Immature Gran % (Auto) 1.2 H Neut % (Auto) 89.6 H Lymph % (Auto) 4.0 L [place] % (Auto) 4.6 Eos % (Auto) 0.3 Baso % (Auto) 0.3 Lymph # (Auto) 0.4 L [place] # (Auto) 0.4 Eos # (Auto) 0.0 Baso # (Auto) 0.0 Abs Immat Gran (auto) 0.11 H Absolute Neuts (auto) 8.3 Absolute Nucleated RBC 0.000 Nucleated RBC % (auto) 0.0 Smear Tech's Comments O2 Saturation ABG pH at Pt Temp ABG pCO2 at Pt Temp ABG pO2 at Pt Temp ABG HCO3 ABG Base Excess (Actual) VBG pH 7.11 L* VBG pCO2 66 VBG pO2 67 VBG HCO3 21 L VBG O2 Saturation 93.0 VBG Base Excess -8.7 Sodium 141 Potassium 6.5 H* D Chloride 111 H Carbon Dioxide 19 L Anion Gap 18 BUN 83 H Creatinine 2.12 H Estim Creat Clear Calc 26.4 Estimated GFR 23 POC Glucose Random Glucose 157 H Lactic Acid 0.4 L Calcium 8.3 L Phosphorus Magnesium 3.1 H Total Bilirubin 0.2 Direct Bilirubin < 0.2 AST 18 ALT 19 Alkaline Phosphatase 137 H Troponin I High Sens 13.2 B-Natriuretic Peptide 496 H Total Protein 7.5 Albumin 3.6 Triglycerides Urine Color Yellow Urine Appearance Turbid Urine pH 6.0 Ur Specific [place] 1.015 Urine Protein 300 (3+) H Urine Glucose (UA) 500 H Urine Ketones Negative Urine Blood Moderate (2+) H Urine Nitrite Negative Ur Leukocyte Esterase Large (3+) H Urine RBC 3-5 H Urine WBC >50 H Ur Squamous Epith Cells 6-10 Urine Bacteria 4+ Hyaline Casts >20 Pleural WBC Pleural RBC Pleural Neutrophils Pleural Lymphocytes Pleural Monocytes Pleural Other Cells 08/03/24 08/03/24 08/03/24 15:38 15:52 16:25 WBC RBC Hgb Hct MCV MCH MCHC RDW Plt Count MPV Immature Gran % (Auto) Neut % (Auto) Lymph % (Auto) [place] % (Auto) Eos % (Auto) Baso % (Auto) Lymph # (Auto) [place] # (Auto) Eos # (Auto) Baso # (Auto) Abs Immat Gran (auto) Absolute Neuts (auto) Absolute Nucleated RBC Nucleated RBC % (auto) Smear Tech's Comments O2 Saturation 97.0 ABG pH at Pt Temp 7.15 L* ABG pCO2 at Pt Temp 54 H ABG pO2 at Pt Temp 89 ABG HCO3 19 L ABG Base Excess (Actual) -9.2 VBG pH 7.11 L* VBG pCO2 58 VBG pO2 38 VBG HCO3 18 L VBG O2 Saturation 61.0 VBG Base Excess -10.5 Sodium 144 Potassium 5.7 H Chloride 114 H Carbon Dioxide 15 L Anion Gap 21 H BUN 77 H Creatinine 2.07 H Estim Creat Clear Calc 26.9 Estimated GFR 23 POC Glucose Random Glucose 170 H Lactic Acid Calcium 8.3 L Phosphorus 5.3 H Magnesium Total Bilirubin Direct Bilirubin AST ALT Alkaline Phosphatase Troponin I High Sens B-Natriuretic Peptide Total Protein Albumin Triglycerides Urine Color Urine Appearance Urine pH Ur Specific [place] Urine Protein Urine Glucose (UA) Urine Ketones Urine Blood Urine Nitrite Ur Leukocyte Esterase Urine RBC Urine WBC Ur Squamous Epith Cells Urine Bacteria Hyaline Casts Pleural WBC Pleural RBC Pleural Neutrophils Pleural Lymphocytes Pleural Monocytes Pleural Other Cells 08/03/24 08/03/24 08/03/24 18:37 19:59 20:00 WBC RBC Hgb Hct MCV MCH MCHC RDW Plt Count MPV Immature Gran % (Auto) Neut % (Auto) Lymph % (Auto) [place] % (Auto) Eos % (Auto) Baso % (Auto) Lymph # (Auto) [place] # (Auto) Eos # (Auto) Baso # (Auto) Abs Immat Gran (auto) Absolute Neuts (auto) Absolute Nucleated RBC Nucleated RBC % (auto) Smear Tech's Comments O2 Saturation ABG pH at Pt Temp ABG pCO2 at Pt Temp ABG pO2 at Pt Temp ABG HCO3 ABG Base Excess (Actual) VBG pH 7.31 L VBG pCO2 30 VBG pO2 51 VBG HCO3 15 L VBG O2 Saturation 88.0 VBG Base Excess -9.4 Sodium 142 Potassium 5.6 H Chloride 112 H Carbon Dioxide 18 L Anion Gap 18 BUN 83 H Creatinine 2.13 H Estim Creat Clear Calc 26.9 Estimated GFR 23 POC Glucose Random Glucose 156 H Lactic Acid Calcium 8.7 Phosphorus Magnesium Total Bilirubin 0.2 Direct Bilirubin AST 16 ALT 18 Alkaline Phosphatase 124 H Troponin I High Sens B-Natriuretic Peptide Total Protein 7.1 Albumin 3.4 L Triglycerides Urine Color Urine Appearance Urine pH Ur Specific [place] Urine Protein Urine Glucose (UA) Urine Ketones Urine Blood Urine Nitrite Ur Leukocyte Esterase Urine RBC Urine WBC Ur Squamous Epith Cells Urine Bacteria Hyaline Casts Pleural WBC 0.549 Pleural RBC 0.026 Pleural Neutrophils 11 Pleural Lymphocytes 12 Pleural Monocytes 11 Pleural Other Cells 66 08/04/24 08/04/24 08/04/24 05:16 05:37 05:40 WBC 6.2 RBC 2.92 L Hgb 8.7 L Hct 27.4 L MCV 93.8 MCH 29.8 MCHC 31.8 RDW 14.0 Plt Count 291 MPV 9.1 L Immature Gran % (Auto) 0.6 H Neut % (Auto) 96.6 H Lymph % (Auto) 1.6 L [place] % (Auto) 0.8 L Eos % (Auto) 0.2 Baso % (Auto) 0.2 Lymph # (Auto) 0.1 L [place] # (Auto) 0.1 Eos # (Auto) 0.0 Baso # (Auto) 0.0 Abs Immat Gran (auto) 0.04 H Absolute Neuts (auto) 6.0 Absolute Nucleated RBC 0.000 Nucleated RBC % (auto) 0.0 Smear Tech's Comments VERIFIED O2 Saturation ABG pH at Pt Temp ABG pCO2 at Pt Temp ABG pO2 at Pt Temp ABG HCO3 ABG Base Excess (Actual) VBG pH 7.43 VBG pCO2 25 VBG pO2 66 VBG HCO3 16 L VBG O2 Saturation 95.0 VBG Base Excess -6.0 Sodium 141 Potassium 4.9 Chloride 111 H Carbon Dioxide 17 L Anion Gap 18 BUN 82 H Creatinine 2.31 H Estim Creat Clear Calc 24.8 Estimated GFR 21 POC Glucose 183 H Random Glucose 197 H Lactic Acid Calcium 8.8 Phosphorus 3.5 Magnesium 2.7 H Total Bilirubin 0.2 Direct Bilirubin AST 15 ALT 15 Alkaline Phosphatase 110 Troponin I High Sens B-Natriuretic Peptide Total Protein 6.5 Albumin 3.2 L Triglycerides 82 Urine Color Urine Appearance Urine pH Ur Specific [place] Urine Protein Urine Glucose (UA) Urine Ketones Urine Blood Urine Nitrite Ur Leukocyte Esterase Urine RBC Urine WBC Ur Squamous Epith Cells Urine Bacteria Hyaline Casts Pleural WBC Pleural RBC Pleural Neutrophils Pleural Lymphocytes Pleural Monocytes Pleural Other Cells Progress Note: A&P Assessment and plan (1) Acute hyperkalemia: Status: Acute (2) Acute kidney injury superimposed on CKD: Status: Acute (3) Pleural effusion: Status: Acute (4) Acute and chronic respiratory failure: Status: Acute (5) Herpes zoster: Status: Acute (6) Anemia: Status: Acute (7) Chronic pain syndrome: Status: Acute Plan Neuro: Acute encephalopathy possibly due to metabolic encephalopathy, is improving Close neurological status monitoring in the ICU every hour Cardiac: Congestive heart failure: CHF possibly secondary to pulmonary hypertension type 3 Last TTE in 06/14/2024 showing normal LV systolic function, possible mitral valve calcification, elevated RVSP, dilated RV and RA Continue Lasix 80 mg TID We will do a bedside echo to evaluate her volume status Respiratory: Acute on chronic hypoxemic and hypercapnic respiratory failure due to COPD exacerbation from heart failure Was on hypercapnic respiratory failure needing BiPAP support yesterday, underwent thoracentesis with 400 cc of fluid removal following which her respiratory status improved. Currently she is stable on high-flow oxygen at 35% at 50L more to ease her breathing rather than hypoxia, we will transfer her to floor. We will change the Solu-Medrol to p.o. prednisone, continue duo nebs GI: Oral feeds as tolerated Renal: Acute kidney injury possibly secondary to cardiorenal syndrome Good urine output with Lasix, fluid balance net-2.2 L. We will do a bedside echo to further evaluate her volume status and then decide on her diuresis Has underlying CKD stage 3 We will closely monitor I's and O's Avoid nephrotoxic medications High anion gap metabolic acidosis: Secondary to acute on chronic kidney disease On Bicitra 30 mL q.i.d., bicarb 18 Heme: Chronic anemia, closely monitor H&H, transfuse for hemoglobin less than 7 grams/deciliter Endocrine: Blood sugars under control Sliding scale insulin as needed Infectious disease: Pending pancultures On empiric ceftriaxone and azithromycin Musculoskeletal: Decubitus ulcer prevention protocol Lines: Peripheral Prophylaxis: Heparin, pantoprazole Quality Stroke Does the patient have a stroke diagnosis?: No VTE Prior VTE?: No VTE Risk Level:: Medical - moderate - high VTE Device Contraindication: N/A - Device Ordered VTE Drug Contraindication: N/A - Med Ordered
--- NOTE | 2024-08-04 08:16 | P.CDIM_ITS ---
PROVIDER RESPONSE TEXT: To clarify, the appropriate diagnosis supported by the clinical indicators: Deep Tissue Injury bilateral buttocks: possible QUERY TEXT: PHYSICIAN'S DOCUMENTATION REQUEST Date of Query: 08/04/2024 08:04 AM EDT Patient Name: Radhika Vaca Admit Date: 08/03/2024 Dear Michael Baires MD, A review of the medical record indicates additional documentation may be needed. Please review below and update the documentation accordingly. Clinical Indicators: Wound care assessment - Deep tissue injury bilateral buttocks, present on admission. Triad applied, foam dressing, tolerated poorly. Based on the above, could you please provide further information regarding the ulcer/wound/injury: Deep Tissue Injury bilateral buttocks Possible, probable, suspected et c. Other (explain) Clinically unable to determine (explain) Thank you, Sharda Kinsey, CCS, CDIS Use of terms such as suspected, likely, concern for, or probable (associated with a specific diagnosi s that is being evaluated, monitored, or treated as if it exists) are acceptable and can be coded in the inpatient se tting, when documented at the time of discharge. Please use your independent medical judgment in providing your response. THIS QUERY IS PART OF THE PERMANENT MEDICAL RECORD
--- NOTE | 2024-08-04 09:20 | HO.WOUND ---
[address] [address] Radhika Vaca Female : 1945 Emr# [id number] 08/04/24 01:29 - Skin Note/Photo by Daniela Villagran RN Acct Num: [id number] : 1945 Patient Age: 78 Location: Bilateral Buttocks Category: Pressure Stage: DTI Initialized on 08/04/24 01:29 - END OF NOTE
--- NOTE | 2024-08-04 09:47 | W.PM.CCHP ---
Procedures Date of Service Date of Service: 08/04/24 Thoracentesis Consent for Procedure: Elective - informed consent obtained Indication: left-sided pleural effusion Procedure: therapeutic thoracentesis Local anesthetic used: lidocaine 1% Amount of anesthesia used (ml): 10 Bedside ultrasound used: yes, real-time guidance Preparation: sterile prep and drape Amount of fluid obtained (mL): 400 Fluid: bloody and sent to lab for analysis Post procedure exam: awake, alert, normal BP and normal HR Patient tolerated procedure: well Complications: none
--- NOTE | 2024-08-04 10:21 | HO.SKINPHOTO ---
Location:coccyx/buttock present upon admission barrier cream and foam dressing applied Category: Stage: Length: Width: Depth: cm Location: Category: Stage: Length: Width: Depth: cm Location: Category: Stage: Length: Width: Depth: cm Location: Category: Stage: Length: Width: Depth: cm Location: Category: Stage: Length: Width: Depth: cm Location: Category: Stage: Length: Width: Depth: cm
[2024-08-04 11:49] LABS: pH Pleural Fluid 7.23
[2024-08-04 11:50] LABS: Albumin Pleural Fluid 2.5
[2024-08-04 11:52] LABS: Glucose Pleural Fluid 186; LDH Pleural Fluid 156
[2024-08-04 11:53] LABS: Amylase Pleural Fluid 23; Creatinine Pleural Fluid 2.2
[2024-08-04 12:44] LABS: Glucose, Whole Blood 267 mg/dL (60-115)
--- NOTE | 2024-08-04 12:44 | HO.WOUND ---
Wound Consult: Initial 78yr old?female admitted to [facility] [place]03[place]24 - See progress notes and H&P for detailed history.? Wound consult placed for coccyx wound POA.? Patient agreeable to assessment and photo documentation.? See photo uploaded while in ICU Sacrum Etiology: ??Deep tissue Injury in Evolution Present on Admission Measurements: see charting for detailed measurements Wound Bed: dark maroon purple nonblanchable tissue - small pinpoint opening with red wound bed Drainage / Odor: none Edges: ? irregular and attached Patria wound: ?MASD to perianal area No Induration, Fluctuance or Warmth noted Pain: Pain noted Goals of Treatment: ? Off Load Pressure - Foam to protect from friction and moisture. Bilateral Lower Legs noted for venous dermatitis while at the bedside. no open wounds noted - recommend topical lotion or cream to soften thick scaling skin. Recommendations: 1. Turn and Reposition every 2 hours and as needed for patient comfort.? Use pillows or wedges to support off loading positions. 2. Off Load all bony prominences with use of pillows and heel boots if needed.? Apply Preventative foams where needed. ? 3. Monitor for incontinence and moisture control, use barrier creams when needed for prevention and treatment. 4. Provide adequate and supplemental nutrition.? 5. Order low air loss mattress. 6. When applicable maintain blood glucose levels per Providers order. 7. Sacrum - Off Load Pressure? - Cleanse with PH balance spray or wipes, pat dry. ?Apply thin layer of Triad to wound bed. Do not remove all of paste between applications as this may cause further skin damage.? Cover with foam dressing to aid in off loading and protection from friction. Change two days and PRN. Re-consult wound care Nurse for wound deterioration or wound changes.
--- NOTE | 2024-08-04 15:16 | MHC.CM.PN ---
Met w/pt to review d/c planning needs: pt states she resides at home w/adult son and has [facility] for skilled RN visits. She uses a walker and has 24/7 home O2 supplied by [employer]. Son assists with shopping: no vehicle so they rely on public transport. Pt had been at [facility] for STR - d/c'd in June. She would return if necessary but would prefer to return to home. IMM in chart, HCP verified. Pt will need BLS transport at the time of d/c to either home or STR. CM to follow.
[2024-08-04] MEDS: cefTRIAXone sodium 2 GM in 0.9 % Sodium Chloride 50 ML IV (16:43)
[2024-08-04] MEDS: Azithromycin 500 MG in 0.9 % Sodium Chloride 250 ML 125 MG IV (16:49)
--- NOTE | 2024-08-04 17:20 | PM.EVENT ---
Event Note Date of Service: 08/04/24 Event Note: Pt seen/examined, discussed with ICU MD. Admitted through ICU with acute hypoxic resp failure nand treated for heart failure and copd exacerbation with hypercarbia and required bipap. Improved and transfered to out of ICU. Med rec reviewed and completed. Restart insulin Lantus at night and sliding scale insulin, glucose check. Monitor metabolic acidosis Time Spent With Patient Time: Total time managing care of this patient today ____ minutes.
[2024-08-04 17:28] LABS: Glucose, Whole Blood 256 mg/dL (60-115)
[2024-08-04] MEDS: amLODIPine Besylate 10 MG TABLET PO (19:13)
[2024-08-04] MEDS: Insulin Lispro 100 UNIT/ML 3 ML VIAL 6 UNIT SUBCUT (19:13)
[2024-08-04 21:11] LABS: Glucose, Whole Blood 195 mg/dL (60-115)
[2024-08-04] MEDS: Atorvastatin Calcium 40 MG TABLET PO (21:40)
[2024-08-04 21:43] LABS: Glucose, Whole Blood 260 mg/dL (60-115)
[2024-08-04] MEDS: Insulin Glargine,Hum.rec.anlog 100 UNIT/ML 10 ML VIAL 15 UNIT SUBCUT (21:52)
[2024-08-04] MEDS: Insulin Lispro 100 UNIT/ML 3 ML VIAL SUBCUT (21:53)
[2024-08-04] MEDS: LORazepam 0.5 MG TABLET PO (23:40)
[2024-08-05] VITALS (8 sets, daily range): BP systolic 130–163; BP diastolic 62–71; PULSE 69–86; RESP 18–20; TEMP 36.1–37.3; O2SAT 92–96; BMI 36.0
[2024-08-05] MEDS: Levothyroxine Sodium 200 MCG TABLET PO (05:46)
[2024-08-05] MEDS: Omeprazole 20 MG CAPSULE.DR PO (05:46)
[2024-08-05 07:23] LABS: Glucose, Whole Blood 86 mg/dL (60-115)
[2024-08-05 08:48] LABS: Hematocrit 30.2 % (37.0-47.0); Hemoglobin 9.4 g/dl (12.0-16.0); Mean Corpuscular HGB Conc 31.1 g/dl (31.0-35.0); Mean Corpuscular Hemoglobin 29.3 pg (27.0-33.0); Mean Corpuscular Volume 94.1 fL (80.0-98.0); Platelet Count 310 X10*3/uL (160-400); Red Blood Count 3.21 X10*6/uL (4.20-5.50); White Blood Count 7.7 X10*3/uL (4.8-10.8)
[2024-08-05 09:06] LABS: Anion Gap 16 (12-20); Blood Urea Nitrogen 79 mg/dL (9-16); Calcium 8.3 mg/dL (8.4-10.2); Carbon Dioxide 23 mmol/L (22-29); Chloride 109 mmol/L (96-108); Creatinine Clr Calc Pharmacy 26.4; Estimated Glomerular Filt Rate 22; Glucose Random 126 mg/dL (60-115); Potassium 4.3 mmol/L (3.3-5.1); Sodium 144 mmol/L (135-145)
[2024-08-05] MEDS: Albuterol/Iprat 2.5/0.5MG 3 ML AMPUL.NEB INHALE ×3 (09:37→18:46)
[2024-08-05] MEDS: Heparin Sodium,Porcine 5,000 UNIT/ML VIAL 5000 UNIT SUBCUT ×2 (09:55→16:52)
[2024-08-05] MEDS: amLODIPine Besylate 10 MG TABLET PO (09:55)
[2024-08-05] MEDS: DULoxetine HCl 20 MG CAPSULE.DR PO (09:55)
[2024-08-05] MEDS: predniSONE 20 MG TABLET 40 MG PO (09:55)
[2024-08-05] MEDS: Furosemide 100 MG/10 ML VIAL 80 MG IVPUSH (09:55)
[2024-08-05] MEDS: 0.9 % Sodium Chloride Flush 3 ML SYRINGE IVFLUSH ×3 (09:56→21:32)
--- NOTE | 2024-08-05 11:07 | P.PNIM_ITS ---
Subjective Subjective Date of Service: 08/05/24 Interval History: f/u on acute on chronic hypoxic resp failure d/t copd, heart failure and pna with effusion s/p bipap in icu s/p thoracentesis, and overall doing better Physical Exam 2 Vital Signs: Vital Signs: Last Vital Signs Temp 97.1 F 08/05/24 08:00 Pulse 74 08/05/24 08:00 Resp 20 08/05/24 08:00 BP 159/67 H 08/05/24 08:00 Pulse Ox 96 08/05/24 08:00 O2 Del Method Nasal Cannula 08/05/24 08:00 O2 Flow Rate 2 08/05/24 08:00 FiO2 32 08/04/24 11:00 BMI result Body Mass Index 36.0 Const: Other: General: AO X 3, no acute distress Resp: CTA bilateral CVS: S1,S2,RRR GI: +BS, NT, no distention Skin: bilateral stasis venous stasis changes of both legs. Neuro: motor grossly intact Psych: appropriate affect Objective Data Active Medications Albuterol Sulfate (Albuterol Sulfate 90 Mcg 8 Gm Inhaler) 2 puff INHALE Q6H PRN PRN Reason: shortness of breath or wheezing Albuterol/Ipratropium (Albuterol/Iprat 2.5/0.5mg 3 Ml Ampul.Neb) 3 ml INHALE Q4H [facility] Last Admin: 08/05/24 09:37 Dose: 3 ml Documented By: ANASTASIYA Amlodipine Besylate (Amlodipine Besylate 10 Mg Tablet) 10 mg PO DAILY [facility]; Protocol Last Admin: 08/05/24 09:55 Dose: 10 mg Documented By: DENZEL Atorvastatin Calcium (Atorvastatin Calcium 40 Mg Tablet) 40 mg PO BEDTIME [facility] Last Admin: 08/04/24 21:40 Dose: 40 mg Documented By: ABIDA Citric Acid/Sodium Citrate (Citric Acid/Sodium Citrate 15 Ml Solution) 30 ml PO QID [facility] Last Admin: 08/05/24 09:50 Dose: Not Given Documented By: DENZEL Non-Admin Reason: Med Not Available Duloxetine HCl (Duloxetine Hcl 20 Mg Capsule.) 20 mg PO DAILY [facility] Last Admin: 08/05/24 09:55 Dose: 20 mg Documented By: DENZEL Furosemide (Furosemide 100 Mg/10 Ml Vial) 80 mg IVPUSH Q12H [facility]; Protocol Last Admin: 08/05/24 09:55 Dose: 80 mg Documented By: DENZEL Glucose (Glucose Gel 15 Gm Gel..Gram.) 15 gm PO Q15M PRN; Protocol PRN Reason: per Hypoglycemia Standing Ord. Heparin Sodium (Porcine) (Heparin Sodium,Porcine 5,000 Unit/Ml Vial) 5,000 unit SUBCUT Q8H [facility] Last Admin: 08/05/24 09:55 Dose: 5,000 unit Documented By: DENZEL Ceftriaxone Sodium 2 gm/ (Sodium Chloride) 50 mls @ 100 mls/hr IV Q24H [facility] Last Infusion: 08/04/24 17:30 Dose: Infused Documented By: ITA Azithromycin 500 mg/ Sodium (Chloride) 250 mls @ 125 mls/hr IV Q24H [facility] Last Infusion: 08/04/24 20:01 Dose: Infused Documented By: ITA Dextrose (D10) 250 mls @ 750 mls/hr IV Q15M PRN; Protocol PRN Reason: per Hypoglycemia Standing Ord. Insulin Glargine (Insulin Glargine,Hum.Rec.Anlog 100 Unit/Ml 10 Ml Vial) 15 unit SUBCUT BEDTIME [facility] Last Admin: 08/04/24 21:52 Dose: 15 unit Documented By: AIBDA Insulin Human Lispro (Insulin Lispro 100 Unit/Ml 3 Ml Vial) 0 unit SUBCUT QIDACHS [facility]; Protocol Last Admin: 08/05/24 08:07 Dose: Not Given Documented By: DENZEL Non-Admin Reason: No Insulin Coverage Levothyroxine Sodium (Levothyroxine Sodium 200 Mcg Tablet) 200 mcg PO DAILY@0600 [facility] Last Admin: 08/05/24 05:46 Dose: 200 mcg Documented By: YOLY Lorazepam (Lorazepam 0.5 Mg Tablet) 0.5 mg PO TID PRN PRN Reason: anxiety Last Admin: 08/04/24 23:40 Dose: 0.5 mg Documented By: YOLY Omeprazole (Omeprazole 20 Mg Capsule.) 20 mg PO DAILY@0630 [facility] Last Admin: 08/05/24 05:46 Dose: 20 mg Documented By: YOLY Prednisone (Prednisone 20 Mg Tablet) 40 mg PO DAILY [facility] Last Admin: 08/05/24 09:55 Dose: 40 mg Documented By: BROCindy Sodium Chloride (0.9 % Sodium Chloride Flush 3 Ml Syringe) 3 ml IVFLUSH QSHIFT [facility] Last Admin: 08/05/24 09:56 Dose: 3 ml Documented By: DOBROB Labs 08/05/24 08:40 08/05/24 08:40 Labs: Laboratory Results - last 24 hr 08/03/24 08/04/24 08/04/24 18:37 12:40 17:25 MCV MCH MCHC RDW Plt Count MPV Absolute Nucleated RBC Nucleated RBC % (auto) Anion Gap Estim Creat Clear Calc Estimated GFR POC Glucose 267 H 256 H Random Glucose Calcium Pleural pH 7.23 Pleural Creatinine 2.2 Pleural Total Protein 4.0 Pleural Albumin 2.5 Pleural LDH 156 Pleural Glucose 186 Pleural Amylase 23 08/04/24 08/04/24 08/05/24 18:46 21:06 07:03 MCV MCH MCHC RDW Plt Count MPV Absolute Nucleated RBC Nucleated RBC % (auto) Anion Gap Estim Creat Clear Calc Estimated GFR POC Glucose 195 H 260 H 86 Random Glucose Calcium Pleural pH Pleural Creatinine Pleural Total Protein Pleural Albumin Pleural LDH Pleural Glucose Pleural Amylase 08/05/24 08:40 MCV 94.1 MCH 29.3 MCHC 31.1 RDW 14.0 Plt Count 310 MPV 9.0 L Absolute Nucleated RBC 0.000 Nucleated RBC % (auto) 0.0 Anion Gap 16 Estim Creat Clear Calc 26.4 Estimated GFR 22 POC Glucose Random Glucose 126 H Calcium 8.3 L Pleural pH Pleural Creatinine Pleural Total Protein Pleural Albumin Pleural LDH Pleural Glucose Pleural Amylase Microbiology Microbiology Results: Microbiology 08/03/24 18:37 Gram Stain - Final Pleura Routine Culture - Preliminary No growth to date. Anaerobic Culture - Preliminary No growth to date. 08/03/24 15:33 Urine Culture - Final Urine clean catch - Clean Catch Midstream Methicillin Res Staph Aureus 08/03/24 14:06 Blood Culture - Preliminary Blood - Venous No growth after 24 hours. 08/03/24 13:37 Blood Culture - Preliminary Blood - Venous No growth after 24 hours. Assessment and Plan (1) Acute kidney injury superimposed on CKD: Status: Acute (2) Pleural effusion: Status: Acute (3) Acute and chronic respiratory failure: Status: Acute Plan 78F PMH COPD on home O2, HFpEF, pernicious anemia, HTN, HLD insulin-dependent type 2 diabetes with neuropathy, CKD3, hypothyroidism, and mood disorder admitted through the ICU with aute hypoxic and hypercarbic respriatory failure d/t COPD exacerbation and acute on chronic heart failure, PNA w/ Pleural effusion required BiPAP in the ICU, did well and transferred the next day Acut on chronic respiratory failure with hypercarbia d/t copd ex and heart failure, acute resp failure resolved -treat underlying copd and heart as below -O2 to keep sat 88 to 92 -bipap at night Acute on chronic HFpEF exacerbation -has been on IV Lasix 80 bid, -has diuressed 4.5 lit -change to oral Bumex home dose -resume jardiance COPD with acute exacerbation -Prednisone for 5 days -bronchodilators by Neb and O2 as above PNA with parapneumonic effusio s/p thoracentesis in ICU -continue Ceftriaxone and Azithro, change to Augmentin at dc MARJORIE on CKD 3 d/t cardiorenal syndrome -stable. Hyperkalemia d/t renal failure--resolved HTN -continue Norvasc 10 daily HLD -Lipitor, hold gemfibrozil d/t interaction with lipitor Insulin-dependent type 2 diabetes Sliding scale insulin, Lantus and jardiance Diabetic diet Full Code DVT Prophylaxis: Heparin PT eval for likely plaement Quality Stroke Does the patient have a stroke diagnosis?: No VTE Prior VTE?: No VTE Risk Level:: Medical - moderate - high VTE Device Contraindication: N/A - Device Ordered VTE Drug Contraindication: N/A - Med Ordered
[2024-08-05 12:02] LABS: Glucose, Whole Blood 187 mg/dL (60-115)
[2024-08-05] MEDS: Insulin Lispro 100 UNIT/ML 3 ML VIAL SUBCUT ×3 (12:50→21:32)
[2024-08-05] MEDS: Doxycycline Monohydrate 100 MG CAPSULE PO ×2 (12:50→21:32)
[2024-08-05] MEDS: Empagliflozin 10 MG TABLET PO (12:50)
--- NOTE | 2024-08-05 13:13 | MHC.CM.PN ---
Addendum entered by Manuela Holley 08/05/24 13:17: referral was submitted to [facility], and they declined to accept pt. Original Note: CM met with pt. to discuss DCP. She said she went to [facility] rehab at end of May for STR and that is where she wants to go again. At this time, she is c/o being very weak. PT eval attempted, she initially refused, but then agreed to participate in eval after PT discussed with her what she would do and CM let her know that this eval is needed in order for pt. to go to STR. Referral will be submitted to [facility]. Skilled.
--- NOTE | 2024-08-05 13:41 | MHC.CLN ---
F/U PT WITH INCREASED NUTRITION RISK R/T PRESSURE INJURY PO INTAKE GOOD DIET RX: 1800DM CARDIAC GRD M/S-APPROPRIATE PT RECEIVING ENSURE MAX BID TO PROMOTE WOUND HEALING SUPP TO PROVIDE 300KCALS, 60G PROTEIN MONITOR PO INTAKE AND ENCOURAGE SUPPLEMENTS
[2024-08-05 15:42] LABS: Glucose, Whole Blood 246 mg/dL (60-115)
[2024-08-05] MEDS: Azithromycin 500 MG in 0.9 % Sodium Chloride 250 ML 125 MG IV (16:52)
[2024-08-05] MEDS: cefTRIAXone sodium 2 GM VIAL IV (16:52)
[2024-08-05 21:24] LABS: Glucose, Whole Blood 305 mg/dL (60-115)
[2024-08-05] MEDS: Amoxicillin/Potassium Clav 875 MG TABLET PO (21:32)
[2024-08-05] MEDS: Insulin Glargine,Hum.rec.anlog 100 UNIT/ML 10 ML VIAL 15 UNIT SUBCUT (21:32)
[2024-08-05] MEDS: Atorvastatin Calcium 40 MG TABLET PO (21:32)
[2024-08-05] MEDS: Nystatin Powder 15 GM BOTTLE 1 APPL TOPICAL (22:37)
[2024-08-06] VITALS (9 sets, daily range): BP systolic 140–160; BP diastolic 65–74; PULSE 74–81; RESP 16–20; TEMP 36.1–36.8; O2SAT 92–97; BMI 33.5
[2024-08-06 00:15] LABS: Glucose, Whole Blood 191 mg/dL (60-115)
[2024-08-06] MEDS: Heparin Sodium,Porcine 5,000 UNIT/ML VIAL 5000 UNIT SUBCUT ×3 (00:46→18:00)
[2024-08-06] MEDS: LORazepam 0.5 MG TABLET PO ×2 (06:02→18:06)
[2024-08-06] MEDS: Omeprazole 20 MG CAPSULE.DR PO (06:05)
[2024-08-06] MEDS: Levothyroxine Sodium 200 MCG TABLET PO (06:05)
--- NOTE | 2024-08-06 06:35 | PC.NURSE ---
Pt c/o anxiety. Requested PRN Ativan. Given with good affect.
[2024-08-06 07:43] LABS: Glucose, Whole Blood 131 mg/dL (60-115)
[2024-08-06 08:01] LABS: Anion Gap 18 (12-20); Blood Urea Nitrogen 72 mg/dL (9-16); Calcium 8.5 mg/dL (8.4-10.2); Carbon Dioxide 25 mmol/L (22-29); Chloride 106 mmol/L (96-108); Estimated Glomerular Filt Rate 28; Glucose Random 151 mg/dL (60-115); Potassium 4.3 mmol/L (3.3-5.1); Sodium 145 mmol/L (135-145)
[2024-08-06] MEDS: Albuterol/Iprat 2.5/0.5MG 3 ML AMPUL.NEB INHALE ×2 (08:29→19:18)
[2024-08-06] MEDS: Bumetanide 1 MG TABLET 2 MG PO (10:04)
[2024-08-06] MEDS: Doxycycline Monohydrate 100 MG CAPSULE PO ×2 (10:04→21:23)
[2024-08-06] MEDS: predniSONE 20 MG TABLET 40 MG PO (10:04)
[2024-08-06] MEDS: Empagliflozin 10 MG TABLET PO (10:04)
[2024-08-06] MEDS: Amoxicillin/Potassium Clav 875 MG TABLET PO ×2 (10:04→21:23)
[2024-08-06] MEDS: DULoxetine HCl 20 MG CAPSULE.DR PO (10:04)
[2024-08-06] MEDS: 0.9 % Sodium Chloride Flush 3 ML SYRINGE IVFLUSH ×3 (10:05→21:26)
[2024-08-06] MEDS: amLODIPine Besylate 10 MG TABLET PO (10:05)
[2024-08-06 11:36] LABS: Glucose, Whole Blood 195 mg/dL (60-115)
--- NOTE | 2024-08-06 12:04 | P.PNIM_ITS ---
Subjective Subjective Date of Service: 08/06/24 Interval History: f/u on acute on chronic hypoxic resp failure d/t copd, heart failure and pna with effusion s/p bipap in icu s/p thoracentesis, and overall doing better overall doing better, no respiratory failure Physical Exam 2 Vital Signs: Vital Signs: Last Vital Signs Temp 97.5 F 08/06/24 07:45 Pulse 80 08/06/24 08:30 Resp 18 08/06/24 08:30 BP 146/73 H 08/06/24 07:45 Pulse Ox 96 08/06/24 07:45 O2 Del Method Nasal Cannula 08/06/24 07:45 O2 Flow Rate 2 08/06/24 07:45 FiO2 32 08/04/24 11:00 BMI result Body Mass Index 33.5 Const: Other: General: AO X 3, no acute distress Resp: CTA bilateral CVS: S1,S2,RRR GI: +BS, NT, no distention Skin: bilateral stasis venous stasis changes of both legs. Neuro: motor grossly intact Psych: appropriate affect Objective Data Active Medications Albuterol Sulfate (Albuterol Sulfate 90 Mcg 8 Gm Inhaler) 2 puff INHALE Q6H PRN PRN Reason: shortness of breath or wheezing Albuterol/Ipratropium (Albuterol/Iprat 2.5/0.5mg 3 Ml Ampul.Neb) 3 ml INHALE Q4H [facility] Last Admin: 08/06/24 08:29 Dose: 3 ml Documented By: LILY Amlodipine Besylate (Amlodipine Besylate 10 Mg Tablet) 10 mg PO DAILY [facility]; Protocol Last Admin: 08/06/24 10:05 Dose: 10 mg Documented By: DENZEL Amoxicillin/Clavulanate Potassium (Amoxicillin/Potassium Clav 875 Mg Tablet) 875 mg PO BID [facility] Last Admin: 08/06/24 10:04 Dose: 875 mg Documented By: DENZEL Atorvastatin Calcium (Atorvastatin Calcium 40 Mg Tablet) 40 mg PO BEDTIME [facility] Last Admin: 08/05/24 21:32 Dose: 40 mg Documented By: SERGIO Bumetanide (Bumetanide 1 Mg Tablet) 2 mg PO DAILY [facility]; Protocol Last Admin: 08/06/24 10:04 Dose: 2 mg Documented By: DENZEL Ceftriaxone Sodium (Ceftriaxone Sodium 2 Gm Vial) 2 gm IV Q24H [facility] Last Admin: 08/05/24 16:52 Dose: 2 gm Documented By: DENZEL Citric Acid/Sodium Citrate (Citric Acid/Sodium Citrate 15 Ml Solution) 30 ml PO QID [facility] Last Admin: 08/06/24 10:22 Dose: Not Given Documented By: DENZEL Non-Admin Reason: Med Not Available Doxycycline Monohydrate (Doxycycline Monohydrate 100 Mg Capsule) 100 mg PO BID [facility] Last Admin: 08/06/24 10:04 Dose: 100 mg Documented By: DENZEL Duloxetine HCl (Duloxetine Hcl 20 Mg Capsule.Dr) 20 mg PO DAILY [facility] Last Admin: 08/06/24 10:04 Dose: 20 mg Documented By: DENZEL Empagliflozin (Empagliflozin 10 Mg Tablet) 10 mg PO DAILY [facility] Last Admin: 08/06/24 10:04 Dose: 10 mg Documented By: DENZEL Glucose (Glucose Gel 15 Gm Gel..Gram.) 15 gm PO Q15M PRN; Protocol PRN Reason: per Hypoglycemia Standing Ord. Heparin Sodium (Porcine) (Heparin Sodium,Porcine 5,000 Unit/Ml Vial) 5,000 unit SUBCUT Q8H [facility] Last Admin: 08/06/24 10:05 Dose: 5,000 unit Documented By: DENZEL Azithromycin 500 mg/ Sodium (Chloride) 250 mls @ 125 mls/hr IV Q24H [facility] Last Infusion: 08/05/24 19:54 Dose: Infused Documented By: SERGIO Dextrose (D10) 250 mls @ 750 mls/hr IV Q15M PRN; Protocol PRN Reason: per Hypoglycemia Standing Ord. Insulin Glargine (Insulin Glargine,Hum.Rec.Anlog 100 Unit/Ml 10 Ml Vial) 15 unit SUBCUT BEDTIME [facility] Last Admin: 08/05/24 21:32 Dose: 15 unit Documented By: SERGIO Insulin Human Lispro (Insulin Lispro 100 Unit/Ml 3 Ml Vial) 0 unit SUBCUT QIDACHS [facility]; Protocol Last Admin: 08/06/24 08:09 Dose: Not Given Documented By: DENZEL Non-Admin Reason: No Insulin Coverage Levothyroxine Sodium (Levothyroxine Sodium 200 Mcg Tablet) 200 mcg PO DAILY@0600 [facility] Last Admin: 08/06/24 06:05 Dose: 200 mcg Documented By: YOLY Lorazepam (Lorazepam 0.5 Mg Tablet) 0.5 mg PO TID PRN PRN Reason: anxiety Last Admin: 08/06/24 06:02 Dose: 0.5 mg Documented By: YOLY Nystatin (Nystatin Powder 15 Gm Bottle) 1 appl TOPICAL BID [facility]; Protocol Last Admin: 08/06/24 10:22 Dose: Not Given Documented By: DENZEL Non-Admin Reason: Previously Administered Omeprazole (Omeprazole 20 Mg Capsule.) 20 mg PO DAILY@0630 [facility] Last Admin: 08/06/24 06:05 Dose: 20 mg Documented By: YOLY Prednisone (Prednisone 20 Mg Tablet) 40 mg PO DAILY [facility] Last Admin: 08/06/24 10:04 Dose: 40 mg Documented By: DENZEL Sodium Chloride (0.9 % Sodium Chloride Flush 3 Ml Syringe) 3 ml IVFLUSH QSHIFT [facility] Last Admin: 08/06/24 10:05 Dose: 3 ml Documented By: DENZEL Labs 08/05/24 08:40 08/06/24 06:49 Labs: Laboratory Results - last 24 hr 08/05/24 08/05/24 08/06/24 15:38 21:20 00:11 Hold Purple Top Anion Gap Estim Creat Clear Calc Estimated GFR POC Glucose 246 H 305 H 191 H Random Glucose Calcium 08/06/24 08/06/24 08/06/24 06:49 07:39 11:21 Hold Purple Top SEE NOTE Anion Gap 18 Estim Creat Clear Calc 31.0 Estimated GFR 28 POC Glucose 131 H 195 H Random Glucose 151 H Calcium 8.5 Microbiology Microbiology Results: Microbiology 08/03/24 18:37 Gram Stain - Final Pleura Routine Culture - Final No growth after 2 days Anaerobic Culture - Preliminary No growth to date. 08/03/24 14:06 Blood Culture - Preliminary Blood - Venous No growth after 48 hours. 08/03/24 13:37 Blood Culture - Preliminary Blood - Venous No growth after 48 hours. Assessment and Plan (1) Acute kidney injury superimposed on CKD: Status: Acute (2) Pleural effusion: Status: Acute (3) Acute and chronic respiratory failure: Status: Acute Plan 78F PMH COPD on home O2, HFpEF, pernicious anemia, HTN, HLD insulin-dependent type 2 diabetes with neuropathy, CKD3, hypothyroidism, and mood disorder admitted through the ICU with aute hypoxic and hypercarbic respriatory failure d/t COPD exacerbation and acute on chronic heart failure, PNA w/ Pleural effusion required BiPAP in the ICU, did well and transferred the next day Acut on chronic respiratory failure with hypercarbia d/t copd ex and heart failure, acute resp failure resolved -treat underlying copd and heart as below -O2 to keep sat 88 to 92 -bipap at night Acute on chronic HFpEF exacerbation -has been on IV Lasix 80 bid and changed to home Bumex 08/05 -continue jardiance COPD with acute exacerbation -Prednisone for 5 days -bronchodilators by Neb and O2 as above PNA with parapneumonic effusio s/p thoracentesis in ICU -was on Ceftriaxone and Azithro, changed to Augmentin + Doxy for total of 7 days MARJORIE on CKD 3 d/t cardiorenal syndrome,improved Hyperkalemia d/t renal failure--resolved HTN -continue Norvasc 10 daily HLD -Lipitor, hold gemfibrozil d/t interaction with lipitor Insulin-dependent type 2 diabetes Sliding scale insulin, Lantus and jardiance Diabetic diet Full Code DVT Prophylaxis: Heparin PT eval for likely plaement Quality Stroke Does the patient have a stroke diagnosis?: No VTE Prior VTE?: No VTE Risk Level:: Medical - moderate - high VTE Device Contraindication: N/A - Device Ordered VTE Drug Contraindication: N/A - Med Ordered
[2024-08-06] MEDS: Insulin Lispro 100 UNIT/ML 3 ML VIAL SUBCUT ×3 (12:06→21:24)
[2024-08-06 17:30] LABS: Glucose, Whole Blood 337 mg/dL (60-115)
[2024-08-06] MEDS: cefTRIAXone sodium 2 GM VIAL IV (18:01)
[2024-08-06] MEDS: Azithromycin 500 MG in 0.9 % Sodium Chloride 250 ML 125 MG IV (18:01)
[2024-08-06 20:51] LABS: Glucose, Whole Blood 306 mg/dL (60-115)
[2024-08-06] MEDS: Atorvastatin Calcium 40 MG TABLET PO (21:23)
[2024-08-06] MEDS: Insulin Glargine,Hum.rec.anlog 100 UNIT/ML 10 ML VIAL 15 UNIT SUBCUT (21:24)
[2024-08-06] MEDS: Nystatin Powder 15 GM BOTTLE 1 APPL TOPICAL (21:25)
[2024-08-07] VITALS (13 sets, daily range): BP systolic 129–159; BP diastolic 60–69; PULSE 58–75; RESP 12–20; TEMP 36.1–36.6; O2SAT 93–100; BMI 33.2
[2024-08-07] MEDS: Heparin Sodium,Porcine 5,000 UNIT/ML VIAL 5000 UNIT SUBCUT ×4 (01:13→23:51)
[2024-08-07] MEDS: LORazepam 0.5 MG TABLET PO ×2 (02:20→11:50)
[2024-08-07] MEDS: Levothyroxine Sodium 200 MCG TABLET PO (06:31)
[2024-08-07] MEDS: Omeprazole 20 MG CAPSULE.DR PO (06:31)
[2024-08-07 07:35] LABS: Glucose, Whole Blood 100 mg/dL (60-115)
[2024-08-07] MEDS: Albuterol/Iprat 2.5/0.5MG 3 ML AMPUL.NEB INHALE ×4 (07:46→20:28)
[2024-08-07] MEDS: DULoxetine HCl 20 MG CAPSULE.DR PO (08:10)
[2024-08-07] MEDS: Bumetanide 1 MG TABLET 2 MG PO (08:10)
[2024-08-07] MEDS: Amoxicillin/Potassium Clav 875 MG TABLET PO ×2 (08:10→21:51)
[2024-08-07] MEDS: amLODIPine Besylate 10 MG TABLET PO (08:10)
[2024-08-07] MEDS: Empagliflozin 10 MG TABLET PO (08:11)
[2024-08-07] MEDS: Doxycycline Monohydrate 100 MG CAPSULE PO ×2 (08:11→21:51)
[2024-08-07] MEDS: predniSONE 10 MG TABLET 30 MG PO (08:11)
[2024-08-07] MEDS: Acetaminophen 325 MG TABLET 650 MG PO (08:11)
[2024-08-07] MEDS: 0.9 % Sodium Chloride Flush 3 ML SYRINGE IVFLUSH ×3 (08:12→21:52)
[2024-08-07] MEDS: Nystatin Powder 15 GM BOTTLE 1 APPL TOPICAL ×2 (08:15→21:56)
[2024-08-07 10:18] LABS: Glucose, Whole Blood 258 mg/dL (60-115)
--- NOTE | 2024-08-07 11:20 | HO.PM.IMPN ---
Subjective Subjective Date of Service: 08/07/24 Interval History: f/u on acute on chronic hypoxic resp failure d/t copd, heart failure and pna with effusion s/p bipap in icu s/p thoracentesis, and overall doing better No new issues, breathing is good Physical Exam Vital Signs: Vital Signs: Last Vital Signs Temp 97.8 F 08/07/24 11:17 Pulse 61 08/07/24 11:17 Resp 18 08/07/24 11:17 BP 129/60 08/07/24 11:17 Pulse Ox 100 08/07/24 11:17 O2 Del Method Nasal Cannula 08/07/24 11:17 O2 Flow Rate 3 08/07/24 11:17 FiO2 32 08/04/24 11:00 BMI result Body Mass Index 33.2 Const: Other: General: AO X 3, no acute distress Resp: CTA bilateral CVS: S1,S2,RRR GI: +BS, NT, no distention Skin: bilateral stasis venous stasis changes of both legs. Neuro: motor grossly intact Psych: appropriate affect Objective Data Active Medications Acetaminophen (Acetaminophen 325 Mg Tablet) 650 mg PO Q4H PRN PRN Reason: Pain, Moderate(Pain Scale 4-6) Last Admin: 08/07/24 08:11 Dose: 650 mg Documented By: TATIANNA Albuterol Sulfate (Albuterol Sulfate 90 Mcg 8 Gm Inhaler) 2 puff INHALE Q6H PRN PRN Reason: shortness of breath or wheezing Albuterol/Ipratropium (Albuterol/Iprat 2.5/0.5mg 3 Ml Ampul.Neb) 3 ml INHALE Q4H [facility] Last Admin: 08/07/24 11:02 Dose: 3 ml Documented By: LILY Amlodipine Besylate (Amlodipine Besylate 10 Mg Tablet) 10 mg PO DAILY [facility]; Protocol Last Admin: 08/07/24 08:10 Dose: 10 mg Documented By: TATIANNA Amoxicillin/Clavulanate Potassium (Amoxicillin/Potassium Clav 875 Mg Tablet) 875 mg PO BID [facility] Last Admin: 08/07/24 08:10 Dose: 875 mg Documented By: TATIANNA Atorvastatin Calcium (Atorvastatin Calcium 40 Mg Tablet) 40 mg PO BEDTIME [facility] Last Admin: 08/06/24 21:23 Dose: 40 mg Documented By: NELDA Bumetanide (Bumetanide 1 Mg Tablet) 2 mg PO DAILY [facility]; Protocol Last Admin: 08/07/24 08:10 Dose: 2 mg Documented By: TATIANNA Ceftriaxone Sodium (Ceftriaxone Sodium 2 Gm Vial) 2 gm IV Q24H [facility] Last Admin: 08/06/24 18:01 Dose: 2 gm Documented By: BROCindy Doxycycline Monohydrate (Doxycycline Monohydrate 100 Mg Capsule) 100 mg PO BID [facility] Last Admin: 08/07/24 08:11 Dose: 100 mg Documented By: TATIANNA Duloxetine HCl (Duloxetine Hcl 20 Mg Capsule.Dr) 20 mg PO DAILY [facility] Last Admin: 08/07/24 08:10 Dose: 20 mg Documented By: TATIANNA Empagliflozin (Empagliflozin 10 Mg Tablet) 10 mg PO DAILY [facility] Last Admin: 08/07/24 08:11 Dose: 10 mg Documented By: TATIANNA Glucose (Glucose Gel 15 Gm Gel..Gram.) 15 gm PO Q15M PRN; Protocol PRN Reason: per Hypoglycemia Standing Ord. Heparin Sodium (Porcine) (Heparin Sodium,Porcine 5,000 Unit/Ml Vial) 5,000 unit SUBCUT Q8H [facility] Last Admin: 08/07/24 08:15 Dose: 5,000 unit Documented By: TATIANNA Azithromycin 500 mg/ Sodium (Chloride) 250 mls @ 125 mls/hr IV Q24H [facility] Last Infusion: 08/06/24 20:01 Dose: Infused Documented By: NELDA Dextrose (D10) 250 mls @ 750 mls/hr IV Q15M PRN; Protocol PRN Reason: per Hypoglycemia Standing Ord. Insulin Glargine (Insulin Glargine,Hum.Rec.Anlog 100 Unit/Ml 10 Ml Vial) 15 unit SUBCUT BEDTIME [facility] Last Admin: 08/06/24 21:24 Dose: 15 unit Documented By: NELDA Insulin Human Lispro (Insulin Lispro 100 Unit/Ml 3 Ml Vial) 0 unit SUBCUT QIDACHS [facility]; Protocol Last Admin: 08/07/24 07:35 Dose: Not Given Documented By: TATIANNA Non-Admin Reason: No Insulin Coverage Levothyroxine Sodium (Levothyroxine Sodium 200 Mcg Tablet) 200 mcg PO DAILY@0600 [facility] Last Admin: 08/07/24 06:31 Dose: 200 mcg Documented By: NELDA Lorazepam (Lorazepam 0.5 Mg Tablet) 0.5 mg PO TID PRN PRN Reason: anxiety Last Admin: 08/07/24 02:20 Dose: 0.5 mg Documented By: NELDA Nystatin (Nystatin Powder 15 Gm Bottle) 1 appl TOPICAL BID [facility]; Protocol Last Admin: 08/07/24 08:15 Dose: 1 appl Documented By: TATIANNA Omeprazole (Omeprazole 20 Mg Capsule.) 20 mg PO DAILY@0630 [facility] Last Admin: 08/07/24 06:31 Dose: 20 mg Documented By: NELDA Prednisone (Prednisone 10 Mg Tablet) 30 mg PO DAILY [facility] Last Admin: 08/07/24 08:11 Dose: 30 mg Documented By: TATIANNA Sodium Chloride (0.9 % Sodium Chloride Flush 3 Ml Syringe) 3 ml IVFLUSH QSHIFT [facility] Last Admin: 08/07/24 08:12 Dose: 3 ml Documented By: TATIANNA Labs 08/05/24 08:40 08/06/24 06:49 Labs: Laboratory Results - last 24 hr 08/06/24 08/06/24 08/06/24 11:21 17:18 20:47 POC Glucose 195 H 337 H 306 H 08/07/24 08/07/24 07:30 10:12 POC Glucose 100 258 H Microbiology Microbiology Results: Microbiology 08/03/24 18:37 Gram Stain - Final Pleura Routine Culture - Final No growth after 2 days Anaerobic Culture - Preliminary No growth to date. Assessment and Plan (1) Acute kidney injury superimposed on CKD: Status: Acute (2) Pleural effusion: Status: Acute (3) Acute and chronic respiratory failure: Status: Acute Plan 78F PMH COPD on home O2, HFpEF, pernicious anemia, HTN, HLD insulin-dependent type 2 diabetes with neuropathy, CKD3, hypothyroidism, and mood disorder admitted through the ICU with aute hypoxic and hypercarbic respriatory failure d/t COPD exacerbation and acute on chronic heart failure, PNA w/ Pleural effusion required BiPAP in the ICU, did well and transferred the next day Acut on chronic respiratory failure with hypercarbia d/t copd ex and heart failure, acute resp failure resolved -treat underlying copd and heart as below -O2 to keep sat 88 to 92 -bipap at night Acute on chronic HFpEF exacerbation -has been on IV Lasix 80 bid and changed to home Bumex 08/05 -continue jardiance COPD with acute exacerbation -Prednisone for 5 days -bronchodilators by Neb and O2 as above PNA with parapneumonic effusio s/p thoracentesis in ICU -was on Ceftriaxone and Azithro, changed to Augmentin + Doxy for total of 7 days MARJORIE on CKD 3 d/t cardiorenal syndrome,improved Hyperkalemia d/t renal failure--resolved HTN -continue Norvasc 10 daily HLD -Lipitor, hold gemfibrozil d/t interaction with lipitor Insulin-dependent type 2 diabetes Sliding scale insulin, Lantus and jardiance Diabetic diet Full Code DVT Prophylaxis: Heparin PT is recommending STR Quality Stroke Does the patient have a stroke diagnosis?: No VTE Prior VTE?: No VTE Risk Level:: Medical - moderate - high VTE Device Contraindication: N/A - Device Ordered VTE Drug Contraindication: N/A - Med Ordered
[2024-08-07 11:42] LABS: Glucose, Whole Blood 226 mg/dL (60-115)
[2024-08-07] MEDS: Insulin Lispro 100 UNIT/ML 3 ML VIAL SUBCUT ×3 (11:48→21:52)
[2024-08-07 17:06] LABS: Glucose, Whole Blood 307 mg/dL (60-115)
[2024-08-07 21:14] LABS: Glucose, Whole Blood 291 mg/dL (60-115)
[2024-08-07] MEDS: Atorvastatin Calcium 40 MG TABLET PO (21:51)
[2024-08-07] MEDS: Insulin Glargine,Hum.rec.anlog 100 UNIT/ML 10 ML VIAL 15 UNIT SUBCUT (21:51)
[2024-08-07] MEDS: oxyCODONE HCl Immed Release 5 MG TABLET PO (22:58)
[2024-08-08] VITALS (12 sets, daily range): BP systolic 131–150; BP diastolic 60–77; PULSE 59–71; RESP 16–18; TEMP 36.3–36.6; O2SAT 94–100; BMI 33.3
[2024-08-08] MEDS: Albuterol/Iprat 2.5/0.5MG 3 ML AMPUL.NEB INHALE ×7 (00:15→23:37)
[2024-08-08] MEDS: Acetaminophen 325 MG TABLET 650 MG PO ×2 (06:33→20:50)
[2024-08-08] MEDS: Omeprazole 20 MG CAPSULE.DR PO (06:33)
[2024-08-08] MEDS: Levothyroxine Sodium 200 MCG TABLET PO (06:34)
[2024-08-08 07:09] LABS: Glucose, Whole Blood 120 mg/dL (60-115)
[2024-08-08] MEDS: amLODIPine Besylate 10 MG TABLET PO (08:12)
[2024-08-08] MEDS: Empagliflozin 10 MG TABLET PO (08:12)
[2024-08-08] MEDS: Amoxicillin/Potassium Clav 875 MG TABLET PO ×2 (08:13→20:50)
[2024-08-08] MEDS: DULoxetine HCl 20 MG CAPSULE.DR PO (08:13)
[2024-08-08] MEDS: predniSONE 10 MG TABLET 30 MG PO (08:13)
[2024-08-08] MEDS: Doxycycline Monohydrate 100 MG CAPSULE PO ×2 (08:13→20:50)
[2024-08-08] MEDS: Bumetanide 1 MG TABLET 2 MG PO (08:13)
[2024-08-08] MEDS: oxyCODONE HCl Immed Release 5 MG TABLET PO (08:13)
[2024-08-08] MEDS: Heparin Sodium,Porcine 5,000 UNIT/ML VIAL 5000 UNIT SUBCUT ×2 (08:15→16:43)
[2024-08-08] MEDS: 0.9 % Sodium Chloride Flush 3 ML SYRINGE IVFLUSH ×3 (08:21→20:51)
[2024-08-08] MEDS: Nystatin Powder 15 GM BOTTLE 1 APPL TOPICAL (08:23)
--- NOTE | 2024-08-08 10:13 | P.PNIM_ITS ---
Subjective Subjective Date of Service: 08/08/24 Interval History: f/u on acute on chronic hypoxic resp failure d/t copd, heart failure and pna with effusion s/p bipap in icu s/p thoracentesis, and overall doing better No new issues, breathing is good. skin burning from Purewick not working well and wants a francisco Physical Exam 2 Vital Signs: Vital Signs: Last Vital Signs Temp 97.6 F 08/08/24 07:04 Pulse 59 08/08/24 07:32 Resp 18 08/08/24 07:32 BP 131/64 08/08/24 07:04 Pulse Ox 99 08/08/24 07:04 O2 Del Method Nasal Cannula 08/08/24 07:04 O2 Flow Rate 3 08/08/24 07:04 FiO2 32 08/04/24 11:00 BMI result Body Mass Index 33.3 Const: Other: General: AO X 3, no acute distress Resp: CTA bilateral CVS: S1,S2,RRR GI: +BS, NT, no distention Skin: bilateral stasis venous stasis changes of both legs. Neuro: motor grossly intact Psych: appropriate affect Objective Data Active Medications Acetaminophen (Acetaminophen 325 Mg Tablet) 650 mg PO Q4H PRN PRN Reason: Pain, Moderate(Pain Scale 4-6) Last Admin: 08/08/24 06:33 Dose: 650 mg Documented By: NELDA Albuterol Sulfate (Albuterol Sulfate 90 Mcg 8 Gm Inhaler) 2 puff INHALE Q6H PRN PRN Reason: shortness of breath or wheezing Albuterol/Ipratropium (Albuterol/Iprat 2.5/0.5mg 3 Ml Ampul.Neb) 3 ml INHALE Q4H [facility] Last Admin: 08/08/24 07:32 Dose: 3 ml Documented By: RADHA Amlodipine Besylate (Amlodipine Besylate 10 Mg Tablet) 10 mg PO DAILY [facility]; Protocol Last Admin: 08/08/24 08:12 Dose: 10 mg Documented By: TATIANNA Amoxicillin/Clavulanate Potassium (Amoxicillin/Potassium Clav 875 Mg Tablet) 875 mg PO BID [facility] Last Admin: 08/08/24 08:13 Dose: 875 mg Documented By: TATIANNA Atorvastatin Calcium (Atorvastatin Calcium 40 Mg Tablet) 40 mg PO BEDTIME [facility] Last Admin: 08/07/24 21:51 Dose: 40 mg Documented By: NELDA Bumetanide (Bumetanide 1 Mg Tablet) 2 mg PO DAILY [facility]; Protocol Last Admin: 08/08/24 08:13 Dose: 2 mg Documented By: TATIANNA Doxycycline Monohydrate (Doxycycline Monohydrate 100 Mg Capsule) 100 mg PO BID [facility] Last Admin: 08/08/24 08:13 Dose: 100 mg Documented By: TATIANNA Duloxetine HCl (Duloxetine Hcl 20 Mg Capsule.Dr) 20 mg PO DAILY [facility] Last Admin: 08/08/24 08:13 Dose: 20 mg Documented By: TATIANNA Empagliflozin (Empagliflozin 10 Mg Tablet) 10 mg PO DAILY [facility] Last Admin: 08/08/24 08:12 Dose: 10 mg Documented By: TATIANNA Glucose (Glucose Gel 15 Gm Gel..Gram.) 15 gm PO Q15M PRN; Protocol PRN Reason: per Hypoglycemia Standing Ord. Heparin Sodium (Porcine) (Heparin Sodium,Porcine 5,000 Unit/Ml Vial) 5,000 unit SUBCUT Q8H [facility] Last Admin: 08/08/24 08:15 Dose: 5,000 unit Documented By: TATIANNA Dextrose (D10) 250 mls @ 750 mls/hr IV Q15M PRN; Protocol PRN Reason: per Hypoglycemia Standing Ord. Insulin Glargine (Insulin Glargine,Hum.Rec.Anlog 100 Unit/Ml 10 Ml Vial) 15 unit SUBCUT BEDTIME [facility] Last Admin: 08/07/24 21:51 Dose: 15 unit Documented By: NELDA Insulin Human Lispro (Insulin Lispro 100 Unit/Ml 3 Ml Vial) 0 unit SUBCUT QIDACHS [facility]; Protocol Last Admin: 08/08/24 07:28 Dose: Not Given Documented By: TATIANNA Non-Admin Reason: No Insulin Coverage Levothyroxine Sodium (Levothyroxine Sodium 200 Mcg Tablet) 200 mcg PO DAILY@0600 [facility] Last Admin: 08/08/24 06:34 Dose: 200 mcg Documented By: NELDA Lorazepam (Lorazepam 0.5 Mg Tablet) 0.5 mg PO TID PRN PRN Reason: anxiety Last Admin: 08/07/24 11:50 Dose: 0.5 mg Documented By: TATIANNA Nystatin (Nystatin Powder 15 Gm Bottle) 1 appl TOPICAL BID [facility]; Protocol Last Admin: 08/08/24 08:23 Dose: 1 appl Documented By: TATIANNA Omeprazole (Omeprazole 20 Mg Capsule.) 20 mg PO DAILY@0630 [facility] Last Admin: 08/08/24 06:33 Dose: 20 mg Documented By: NELDA Oxycodone HCl (Oxycodone Hcl Immed Release 5 Mg Tablet) 5 mg PO Q8H PRN PRN Reason: Pain, Severe (Pain Scale 7-10) Last Admin: 08/08/24 08:13 Dose: 5 mg Documented By: TATIANNA Prednisone (Prednisone 10 Mg Tablet) 30 mg PO DAILY [facility] Last Admin: 08/08/24 08:13 Dose: 30 mg Documented By: TATIANNA Sodium Chloride (0.9 % Sodium Chloride Flush 3 Ml Syringe) 3 ml IVFLUSH QSHIFT [facility] Last Admin: 08/08/24 08:21 Dose: 3 ml Documented By: TATIANNA Labs 08/05/24 08:40 08/06/24 06:49 Labs: Laboratory Results - last 24 hr 08/07/24 08/07/24 08/07/24 10:12 11:33 17:01 POC Glucose 258 H 226 H 307 H 08/07/24 08/08/24 20:41 07:02 POC Glucose 291 H 120 H Microbiology Microbiology Results: Microbiology 08/03/24 18:37 Gram Stain - Final Pleura Routine Culture - Final No growth after 2 days Anaerobic Culture - Preliminary No growth to date. Assessment and Plan (1) Acute kidney injury superimposed on CKD: Status: Acute (2) Pleural effusion: Status: Acute (3) Acute and chronic respiratory failure: Status: Acute Plan 78F PMH COPD on home O2, HFpEF, pernicious anemia, HTN, HLD insulin-dependent type 2 diabetes with neuropathy, CKD3, hypothyroidism, and mood disorder admitted through the ICU with aute hypoxic and hypercarbic respriatory failure d/t COPD exacerbation and acute on chronic heart failure, PNA w/ Pleural effusion required BiPAP in the ICU, did well and transferred the next day Acut on chronic respiratory failure with hypercarbia d/t copd ex and heart failure, acute resp failure resolved -treat underlying copd and heart as below -O2 to keep sat 88 to 92 -bipap at night Acute on chronic HFpEF exacerbation -has been on IV Lasix 80 bid and changed to home Bumex 08/05 -continue jardiance COPD with acute exacerbation -Prednisone for 5 days -bronchodilators by Neb and O2 as above PNA with parapneumonic effusio s/p thoracentesis in ICU -was on Ceftriaxone and Azithro, changed to Augmentin + Doxy for total of 7 days MARJORIE on CKD 3 d/t cardiorenal syndrome,improved Hyperkalemia d/t renal failure--resolved HTN -continue Norvasc 10 daily HLD -Lipitor, hold gemfibrozil d/t interaction with lipitor Insulin-dependent type 2 diabetes Sliding scale insulin, Lantus and jardiance Diabetic diet skin fungal infection--nystatin powder Full Code DVT Prophylaxis: Heparin PT is recommending STR Quality Stroke Does the patient have a stroke diagnosis?: No VTE Prior VTE?: No VTE Risk Level:: Medical - moderate - high VTE Device Contraindication: N/A - Device Ordered VTE Drug Contraindication: N/A - Med Ordered
[2024-08-08 11:17] LABS: Glucose, Whole Blood 231 mg/dL (60-115)
[2024-08-08] MEDS: Insulin Lispro 100 UNIT/ML 3 ML VIAL SUBCUT ×3 (11:55→20:51)
[2024-08-08 16:47] LABS: Glucose, Whole Blood 265 mg/dL (60-115)
[2024-08-08 20:43] LABS: Glucose, Whole Blood 312 mg/dL (60-115)
[2024-08-08] MEDS: Atorvastatin Calcium 40 MG TABLET PO (20:50)
[2024-08-08] MEDS: LORazepam 0.5 MG TABLET PO (20:50)
[2024-08-08] MEDS: Insulin Glargine,Hum.rec.anlog 100 UNIT/ML 10 ML VIAL 15 UNIT SUBCUT (20:50)
[2024-08-09] VITALS (7 sets, daily range): BP systolic 138–152; BP diastolic 60–63; PULSE 63–71; RESP 16–18; TEMP 36.1–36.7; O2SAT 95–100; BMI 33.1
[2024-08-09] MEDS: Heparin Sodium,Porcine 5,000 UNIT/ML VIAL 5000 UNIT SUBCUT ×2 (00:24→10:22)
[2024-08-09] MEDS: Nystatin Powder 15 GM BOTTLE 1 APPL TOPICAL (00:25)
[2024-08-09 00:43] LABS: Appearance Urine Clear; Color Urine Yellow; Glucose Urine UA >=1000 mg/dL (Negative); Leukocyte Esterase Urine Negative (Negative); Nitrite Urine Negative (Negative); PH 5.5 (5.0-9.0); UMIC TRIGGER UACC YES; Urine Blood Trace (Negative); Urine Ketones Negative (Negative); Urine Protein 100 (2+) mg/dL (Neg-Trace)
[2024-08-09 01:16] LABS: Bacteria Urine None Seen (None Seen); Hyaline Casts Urine 0-2 /LPF (0-2); Squamous Epithelial Cell Urine 0-2 /HPF (0-2); WBC Urine 0-5 /HPF (0-5)
[2024-08-09] MEDS: oxyCODONE HCl Immed Release 5 MG TABLET PO (01:51)
[2024-08-09] MEDS: Albuterol/Iprat 2.5/0.5MG 3 ML AMPUL.NEB INHALE ×3 (03:27→11:07)
[2024-08-09] MEDS: Omeprazole 20 MG CAPSULE.DR PO (06:36)
[2024-08-09] MEDS: Levothyroxine Sodium 200 MCG TABLET PO (06:36)
[2024-08-09 07:16] LABS: Anion Gap 16 (12-20); Blood Urea Nitrogen 73 mg/dL (9-16); Carbon Dioxide 28 mmol/L (22-29); Chloride 105 mmol/L (96-108); Creatinine Clr Calc Pharmacy 28.9; Estimated Glomerular Filt Rate 26; Glucose Random 104 mg/dL (60-115); Potassium 4.5 mmol/L (3.3-5.1); Sodium 144 mmol/L (135-145)
[2024-08-09 07:57] LABS: Glucose, Whole Blood 84 mg/dL (60-115)
[2024-08-09] MEDS: predniSONE 10 MG TABLET 30 MG PO (10:20)
[2024-08-09] MEDS: Amoxicillin/Potassium Clav 875 MG TABLET PO (10:20)
[2024-08-09] MEDS: LORazepam 0.5 MG TABLET PO ×2 (10:20→14:58)
[2024-08-09] MEDS: Doxycycline Monohydrate 100 MG CAPSULE PO (10:20)
[2024-08-09] MEDS: 0.9 % Sodium Chloride Flush 3 ML SYRINGE IVFLUSH (10:21)
[2024-08-09] MEDS: Bumetanide 1 MG TABLET 2 MG PO (10:21)
[2024-08-09] MEDS: DULoxetine HCl 20 MG CAPSULE.DR PO (10:21)
[2024-08-09] MEDS: amLODIPine Besylate 10 MG TABLET PO (10:21)
[2024-08-09] MEDS: Empagliflozin 10 MG TABLET PO (10:21)
[2024-08-09 11:54] LABS: Glucose, Whole Blood 152 mg/dL (60-115)
[2024-08-09] MEDS: Insulin Lispro 100 UNIT/ML 3 ML VIAL SUBCUT (12:07)
--- NOTE | 2024-08-09 13:00 | PM.DS ---
DS: Providers Provider Date of Service: 08/09/24 Date of admission: 08/03/24 16:08 Primary care physician: Neida Soto MD Consults: 08/03/24 17:29 Consult to Wound Care Routine Reason for consultation: open area on coccyx Has provider been notified: Yes DS: Diagnosis Discharge Diagnosis (1) Acute kidney injury superimposed on CKD: Status: Resolved (2) Pleural effusion: Status: Resolved (3) Acute and chronic respiratory failure: Status: Resolved DS: Summary Hospital Course Hospital Course: Chief Complaint: Shortness of breaths 78-year-old lady with past medical history of COPD, pulmonary hypertension and right heart failure, hypertension, diabetes mellitus, CKD-III, hyperlipidemia, hypothyroidism, and mood disorder presented to the hospital with complaints of shortness of breath for past couple of days. Apparently patient was admitted to the hospital in May for heart failure exacerbation. In the ED patient was placed on the BiPAP support to worsening shortness of breath, labs suggestive of worsening MARJORIE on CKD with hyperkalemia to 6.4, ABG showing a pH of 7.11 so MICU was consulted for admission. Hospital course: 78-year-old female with a past medical history of COPD on home oxygen, heart failure with preserved ejection fraction (HFpEF), pernicious anemia, hypertension, hyperlipidemia, insulin-dependent type 2 diabetes with neuropathy, chronic kidney disease stage 3 (CKD3), hypothyroidism, and a mood disorder, was admitted through the ICU for acute hypoxic and hypercarbic respiratory failure due to a COPD exacerbation and [id number] heart failure. She was also diagnosed with pneumonia and a pleural effusion. The patient required BiPAP in the ICU, responded well to treatment, and was transferred to the general floor the next day. Acut on chronic respiratory failure with hypercarbia d/t copd ex and heart failure, acute respiratory failure has resolved resolved. Underlying COPD and heart failure were treated with goal to keep O2 saturation around 88 to 92%. She has been using BiPAP at night. Acute on chronic HFpEF exacerbation--While in the ICU she was treated with IV Lasix 80 mg twice daily and was eventually transitioned back to home Bumex 2 mg daily, to continue jardiance for dual roles (diabetes and heart failure) COPD with acute exacerbation, treated with bronchodilators and steroid and has completed 5 days of steroid, continue bronchodilators Pneumonia with with parapneumonic effusion s/p thoracentesis in ICU. Initially treated with Ceftriaxone and Azithromycin, which has been changed to oral Augmentin and Doxycyline for 3 more days, total of 10 days -was on Ceftriaxone and Azithro, changed to Augmentin + Doxy for total of 7 days MARJORIE on CKD 3 d/t cardiorenal syndrome, marjorie improved, Creatine within baseline Hyperkalemia d/t renal failure--resolved HTN -continue Norvasc 10 daily HLD -Lipitor, hold gemfibrozil d/t interaction with lipitor Insulin-dependent type 2 diabetes Sliding scale insulin, Lantus and jardiance Diabetic diet skin fungal infection--nystatin powder F PT is recommending STR Time Attestation Discharge Coordination Time (in mins): 40 Quality: Safe Use of Opioids Does Pt have an Active Cancer Diagnosis on the Problem List?: No Quality: Stroke Does the patient have a stroke diagnosis?: No Physical Exam Vital Signs: Vital Signs: Last Vital Signs Temp 97.8 F 08/09/24 11:52 Pulse 67 08/09/24 11:52 Resp 16 08/09/24 11:52 BP 152/63 H 08/09/24 11:52 Pulse Ox 96 08/09/24 11:52 O2 Del Method Nasal Cannula 08/09/24 11:52 O2 Flow Rate 3 08/09/24 11:52 FiO2 32 08/04/24 11:00 BMI result Body Mass Index 33.1 Const: Other: General: AO X 3, no acute distress Resp: CTA bilateral CVS: S1,S2,RRR GI: +BS, NT, no distention Skin: bilateral stasis venous stasis changes of both legs. Neuro: motor grossly intact Psych: appropriate affect DS: Data Data Completed and Pending Completed studies during hospitalization [Text1]: Procedures Insertion of Infusion Device into Superior Vena Cava, Percutaneous Approach (11/10/21) Performance of Urinary Filtration, Intermittent, Less than 6 Hours Per Day (11/10/21) Pending studies at discharge: Pending at discharge 08/03/24 18:20 Cytology [PTH] Routine Labs on day of discharge: Laboratory Results - last 24 hr 08/08/24 08/08/24 08/09/24 16:25 20:23 00:22 Hold Purple Top Sodium Potassium Chloride Carbon Dioxide Anion Gap BUN Creatinine Estim Creat Clear Calc Estimated GFR POC Glucose 265 H 312 H Random Glucose Calcium Urine Color Yellow Urine Appearance Clear Urine pH 5.5 Ur Specific [place] 1.020 Urine Protein 100 (2+) H Urine Glucose (UA) >=1000 H Urine Ketones Negative Urine Blood Trace H Urine Nitrite Negative Ur Leukocyte Esterase Negative Urine RBC 6-10 H Urine WBC 0-5 Ur Squamous Epith Cells 0-2 Urine Bacteria None Seen Hyaline Casts 0-2 08/09/24 08/09/24 08/09/24 06:44 07:49 11:50 Hold Purple Top SEE NOTE Sodium 144 Potassium 4.5 Chloride 105 Carbon Dioxide 28 Anion Gap 16 BUN 73 H Creatinine 1.90 H Estim Creat Clear Calc 28.9 Estimated GFR 26 POC Glucose 84 152 H Random Glucose 104 Calcium 8.0 L Urine Color Urine Appearance Urine pH Ur Specific [place] Urine Protein Urine Glucose (UA) Urine Ketones Urine Blood Urine Nitrite Ur Leukocyte Esterase Urine RBC Urine WBC Ur Squamous Epith Cells Urine Bacteria Hyaline Casts Discharge Plan Discharge Anticipated Discharge Date/Time: 08/09/24 13:15 Patient Disposition: [facility] Discharge Diagnosis: Acute respiratory failure, pneumononia, copd exacerbation, heart failure Referrals: [facility] [Outside] - 1 Week [facility] [Outside] - 1 Week Neida Mirza MD [Primary Care Provider] - 1 Week Discharge Medications: New nystatin 100,000 unit/gram Powder 1 appl topical BID Qty: 30 0RF Protocol: Apply to: Apply to: Groin insulin lispro [Admelog U-100 Insulin lispro] 100 unit/mL Solution See Protocol subcut QIDACHS Qty: 10 0RF Protocol: Insulin Correction Scale Less than or equal to 110 ---- Give (units): 0 111 to 150 Give (units): 0 151 to 200 Give (units): 2 201 to 250 Give (units): 4 251 to 300 Give (units): 6 301 to 350 Give (units): 8 Greater than 350 Give (units): 10 Call MD if Blood Glucose > : 350 Rx Instructions: BG <111 0 units, 111-150 - 0 units, 151-200 2 units, 201-250 4 units, 251-300 6 units, 301-350 8 units, >350 10 units omeprazole 20 mg Capsule,Delayed Release(Dr/Ec) 20 mg PO DAILY@0630 Qty: 30 0RF oxycodone 5 mg Tablet 5 mg PO Q8H PRN (Reason: Pain, Severe (Pain Scale 7-10)) Qty: 10 0RF Rx Instructions: Partial Fill upon patient request. doxycycline monohydrate 100 mg Capsule 100 mg PO BID Qty: 6 0RF amoxicillin-pot clavulanate 875-125 mg Tablet 1 tab PO BID Qty: 6 0RF ipratropium-albuterol 0.5 mg-3 mg(2.5 mg base)/3 mL Solution For Nebulization 3 ml inhalation Q4H PRN (Reason: shortness of breath or wheezing) Qty: 90 0RF Continued lorazepam 0.5 mg tablet 0.5 mg PO TID PRN (Reason: anxiety) 30 Days Qty: 90 0RF Rx Instructions: coverage for Ranjith Kopperl duloxetine [Cymbalta] 20 mg capsule,delayed release(DR/EC) 20 mg PO DAILY 90 Days Qty: 90 0RF albuterol sulfate [Ventolin HFA] 90 mcg/actuation HFA aerosol inhaler 2 puff inhalation Q6H PRN (Reason: shortness of breath or wheezing) 30 Days Qty: 8.5 3RF atorvastatin 40 mg tablet 40 mg PO BEDTIME 90 Days Qty: 90 3RF Jardiance 10 mg tablet 10 mg PO DAILY Qty: 90 1RF bumetanide 1 mg tablet 2 mg PO DAILY Qty: 90 1RF Protocol: Hold for SBP< HOLD for SBP < : 90 levothyroxine 200 mcg tablet 200 mcg PO DAILY@0600 insulin glargine [Basaglar KwikPen U-100 Insulin] 100 unit/mL (3 mL) insulin pen 15 unit subcut BEDTIME amlodipine 10 mg Tablet 10 mg PO DAILY Qty: 0 0RF Protocol: Hold for SBP< HOLD for SBP < : 90 Discontinued gemfibrozil 600 mg tablet 600 mg PO BID 90 Days Qty: 180 1RF No Action (DME) insulin syringe-needle U-100 [BD Insulin Syringe Ultra-Fine] 0.5 mL 31 gauge x 5/16 syringe See Rx Instructions .Route Qty: 100 3RF Rx Instructions: Use 1 needle once a day (DME) pen needle, diabetic [1st Tier Unifine Pentips] 31 gauge x 5/16 needle See Rx Instructions .Route Qty: 100 4RF Rx Instructions: Use 1 pen needle once a day (DME) Accu-Chek Odilia Plus test strp Strip See Rx Instructions .Route Qty: 100 1RF Rx Instructions: Use 1 test strip once a day (DME) Accu-Chek Guide test strips Strip See Rx Instructions .Route Qty: 100 3RF Rx Instructions: Use 1 test strip once a day (DME) lancets [Accu-Chek Softclix Lancets] Misc See Rx Instructions .Route Qty: 100 3RF Rx Instructions: Use 1 lancet once a day Discharge Orders: Discharge Order (Routine); Ordered 08/09/24 Ordered By: Christian Mujica Diet: Diabetic diet Activity on Discharge: As tolerated Stand Alone Forms: Patient Portal Discharge page Print Language: Telugu Care Plan Goals: recovery from respiatory failure Health Concerns: acute hypoxic respiratory failure copd exacerbation pneumonia heart failure pleural effusion Plan of Treatment: take augmentin and doxycycline as recommended and follow up with your doctor, continue all other medications to short term rehab for less than 30 days Assessment: see west Discharge Date/Time: 08/09/24 15:25
--- NOTE | 2024-08-09 13:13 | MHC.CM.PN ---
Second IMM 08/09/24, Pt has been medically cleared for DC, she will go to [facility] for STR this afternoon via BLS.
== END 2024-08-09 15:25 | disposition skilled nursing facility (03) | DRG 291 ==
LOC: HO.ED 15:13 → HO.EDOVER 16:15 → HO.ICU 16:22 → HO.IMC 08-04 11:23
PROVIDERS: Internal Medicine; Physician Assistant; Physician Assistant Medical; Admitting Provider Internal Medicine Critical Care Medicine; Emergency Provider Emergency Medicine; PCP Internal Medicine; Visit Provider Internal Medicine
DX: I13.0 Hypertensive heart and chronic kidney disease with heart failure and stage 1 through stage 4 chronic kidney disease, or unspecified chronic kidney disease (principal); G93.41 Metabolic encephalopathy; I50.33 Acute on chronic diastolic (congestive) heart failure; J96.21 Acute and chronic respiratory failure with hypoxia; J18.9 Pneumonia, unspecified organism; N17.9 Acute kidney failure, unspecified; J91.8 Pleural effusion in other conditions classified elsewhere; J44.1 Chronic obstructive pulmonary disease with (acute) exacerbation; J44.0 Chronic obstructive pulmonary disease with (acute) lower respiratory infection; E03.9 Hypothyroidism, unspecified; E87.5 Hyperkalemia; N18.30 Chronic kidney disease, stage 3 unspecified; E78.5 Hyperlipidemia, unspecified; B95.62 Methicillin resistant Staphylococcus aureus infection as the cause of diseases classified elsewhere; I27.23 Pulmonary hypertension due to lung diseases and hypoxia; G89.4 Chronic pain syndrome; E11.40 Type 2 diabetes mellitus with diabetic neuropathy, unspecified; L89.326 Pressure-induced deep tissue damage of left buttock; L89.316 Pressure-induced deep tissue damage of right buttock; B36.9 Superficial mycosis, unspecified; E11.22 Type 2 diabetes mellitus with diabetic chronic kidney disease; Z99.81 Dependence on supplemental oxygen; Z87.891 Personal history of nicotine dependence; Z79.4 Long term (current) use of insulin; Z79.890 Hormone replacement therapy; Z79.899 Other long term (current) drug therapy
CPT/HCPCS: 36415; 71045; 80048; 80053; 80076; 81001; 81003; 82042; 82150; 82570; 82803; 82945; 82947; 83605; 83615; 83735; 83880; 83986; 84100; 84157; 84478; 84484; 85025; 85027; 87040; 87070; 87073; 87086; 87088; 87186; 87205; 88112; 88305; 88341; 88342; 89051; 93005; 94640; 94799; 97162; 97530; 99285; C1758; J0456; J0613; J0696; J1644; J1939; J1940; J2060; J2470; J2919; J3010

== ENCOUNTER → 2024-08-03 13:24 | Outpatient (BNV) | payer MEDICARE, SELFPAY | PROVIDERS: Emergency Provider Emergency Medicine; Visit Provider Internal Medicine Cardiovascular Disease | DX: R94.31 Abnormal electrocardiogram [ECG] [EKG] (principal) | CPT/HCPCS: 93010 ==

== ENCOUNTER → 2024-08-03 16:08 | Outpatient (BNV) | payer MEDICARE, SELFPAY | PROVIDERS: Admitting Provider Internal Medicine Critical Care Medicine; Emergency Provider Emergency Medicine; PCP Internal Medicine; Visit Provider Internal Medicine | DX: J96.21 Acute and chronic respiratory failure with hypoxia (principal); J96.22 Acute and chronic respiratory failure with hypercapnia; N17.9 Acute kidney failure, unspecified; N18.30 Chronic kidney disease, stage 3 unspecified | CPT/HCPCS: 99232; 99239; 99499 ==

== ENCOUNTER → 2024-08-03 16:08 | Outpatient (BNV) | payer MEDICARE, SELFPAY | PROVIDERS: Admitting Provider Internal Medicine Critical Care Medicine; Emergency Provider Emergency Medicine; Visit Provider Internal Medicine Critical Care Medicine | DX: N17.9 Acute kidney failure, unspecified (principal); N18.9 Chronic kidney disease, unspecified; E87.5 Hyperkalemia; J90 Pleural effusion, not elsewhere classified; J96.21 Acute and chronic respiratory failure with hypoxia; J96.22 Acute and chronic respiratory failure with hypercapnia | CPT/HCPCS: 32555; 99223; 99291 ==

== ENCOUNTER 2024-10-27 07:08 | Inpatient (IN) | payer MEDICARE, OTHER, SELFPAY ==
[2024-10-27] VITALS (7 sets, daily range): BP systolic 130–156; BP diastolic 58–73; PULSE 74–88; RESP 16–24; TEMP 36.4–37; O2SAT 97–100; BMI 33.9
--- NOTE | ~2024-10-27 | XR_ITS ---
EXAMINATION: XR CHEST CLINICAL INFORMATION: shortness of breath COMPARISON: Chest x-ray 08/03/2024. TECHNIQUE: Frontal view of the chest was obtained. FINDINGS: The lungs are hypoexpanded any acute pneumonic process. The heart size is mildly enlarged with mild prominence of pulmonary vascularity question mild congestion. There is mild deformity of right lateral fifth and sixth ribs question old healed fracture. XR/XR chest 1V IMPRESSION: Mild cardiomegaly with pulmonary vascular congestion. Electronically signed by: Grant Willis MD 10/27/2024 08:35 AM EST
--- NOTE | ~2024-10-27 | US_ITS ---
EXAMINATION: US KIDNEY BILATERAL HISTORY: hydronephrosis TECHNIQUE: Real-time grayscale ultrasound imaging of the kidneys was performed and images were reviewed. COMPARISON: Correlation is made with a CT of the abdomen and pelvis dated 10/27/2024. FINDINGS: Right kidney: The right kidney measures 12.0 x 6.2 x 6.7 cm. There is cortical thinning. There are 2 cysts of the lower pole measuring 2.0 x 2.0 x 2.3 cm and 2.1 x 2.0 x 2.0 cm. There is no hydronephrosis or renal calculi. Left Kidney: The left kidney measures 12.3 x 6.5 x 7.2 cm. There is cortical thinning. There are no masses. There is no hydronephrosis or renal calculi. US/US renal BI IMPRESSION: Bilateral renal cortical thinning. Right renal cysts as described. No hydronephrosis. Electronically signed by: Valeriano Garnett MD 11/02/2024 03:57 PM EST
--- NOTE | ~2024-10-27 | CT_ITS ---
EXAMINATION: CT ABDOMEN AND PELVIS WITHOUT CONTRAST CLINICAL INFORMATION: Sacral wound COMPARISON: CT abdomen and pelvis 11/10/2021 TECHNIQUE: Multidetector volumetric imaging was performed from the superior aspect of the liver through the pubic symphysis. Sagittal and coronal reformatted images were obtained on the technologist's workstation. This CT examination was performed using dose optimization techniques as appropriate, variously including the following: *Automated exposure control *Adjustment of mA and/or kV according to patient size (this includes techniques or standardized protocols for targeted exams where dose is matched to indication/reason for exam; i.e. extremities or head) *Use of iterative reconstruction technique DLP: 1040 mGy-cm FINDINGS: LUNG BASES: There is a platelike atelectasis or scarring left lung base. Dense mitral valve calcification is seen. LIVER, GALLBLADDER, AND BILIARY TREE: The liver is normal in size, shape, and attenuation. No focal hepatic lesion or biliary ductal dilatation is present. The gallbladder is distended with no evidence of radiopaque gallstones, gallbladder wall thickening, or obvious pericholecystic inflammatory changes. PANCREAS: Unremarkable. SPLEEN: Unremarkable. ADRENAL GLANDS: Unremarkable. KIDNEYS AND URETERS: Kidneys are normal size and shape for patient's age. There is diffuse cortical thinning without radiopaque calculi. There is a 1.7 cm exophytic cyst mid pole right kidney measuring 8 Hounsfield units. There is bilateral perinephric stranding more so on the right and left. There is moderate hydroureteronephrosis exiting all the way to the bladder with no obstructive etiology seen along the ureters. BLADDER: Bladder is minimally prominent. There is no bladder wall thickening or radiopaque calculi GASTROINTESTINAL TRACT: There is moderate scattered stool and gas seen in colon without distention. Mild thickening of rectal wall without pericolic fat stranding. Similar findings were seen on the previous study The small bowel loops are normal caliber. Appendix is not visualized there there is no free air or inflammatory process in the abdomen. ABDOMINAL WALL: A small umbilical hernia containing intraperitoneal fat is noted. LYMPH NODES: Normal. VASCULAR: There is mild atherosclerotic changes of abdominal aorta without aneurysmal dilatation. IVC is normal caliber. PELVIC VISCERA: Uterus is anteverted and appears unremarkable. There is no adnexal mass or free fluid. OSSEOUS STRUCTURES: There are degenerative disc changes with vacuum disc phenomena lower dorsal spine, L2-3, L4-5-5-S1 disc levels. No aggressive lytic or sclerotic process seen.- CT/CT abdomen pelvis wo IV con IMPRESSION: Bilateral hydroureteronephrosis without any obstructive etiology. Small simple exophytic cyst mid pole right kidney, stable Mild constipation without obstruction. Mild circumferential thickening of the rectal wall, stable. Small umbilical hernia containing intraperitoneal fat. Fleischner guidelines were followed. Electronically signed by: Grant Willis MD 10/27/2024 10:48 AM EST
--- NOTE | 2024-10-27 07:15 | ED_ITS ---
HPI - General Adult General Chief complaint: Wound/Laceration Stated complaint: BED SORE PAIN/SPLIT ON BUTTOCK PER EMS Time Seen by Provider: 10/27/24 07:15 History of Present Illness ED Provider: Micah BUCK narrative: The patient is a 79-year-old female with a history of COPD. She lives at home with her son. She is on chronic home oxygen. The patient has multiple medical problems and was last hospitalized almost three months ago from August 03 to August 09, 2024. She has been hospitalized for an exacerbation of her COPD and her congestive heart failure. Additionally she was found to have had a pleural effusion and an acute kidney injury and may have also had pneumonia. She says that at discharge she went to a rehab facility and she was at a rehab facility for about a month. She has therefore been home almost 2 months. She says that she spends a lot of time sitting. She is not very ambulatory. She uses a walker to get around. She has developed a bedsore near her buttocks. She has had worsening pain at the site of the bedsore and this morning her son called an ambulance because the bedsore seemed to be getting worse and they did not feel they could handle this problem at home anymore. She does not think she has had a fever. She feels uncomfortable and anxious and she feels this is making her breathing worse. No abdominal pain. No nausea or vomiting. No significant chest pain. Related Data Home Medications ?Medication ?Instructions ?Recorded ?Confirmed insulin glargine 100 unit/mL (3 15 unit subcut BEDTIME 06/19/24 10/27/24 mL) subcutaneous pen (Danielaglar JoshPen U-100 Insulin) levothyroxine 200 mcg tablet 200 mcg PO DAILY@0600 06/19/24 10/27/24 oxycodone 5 mg tablet 5 mg PO BID PRN Pain, Severe (Pain 10/27/24 10/27/24 Scale 7-10) Previous Rx's ?Medication ?Instructions ?Recorded insulin syringe-needle U-100 0.5 #100 ea 07/29/23 mL 31 gauge x 03/10 (BD Insulin Syringe Ultra-Fine) pen needle, diabetic 31 gauge x #100 ea 07/29/2316 (1st Tier Unifine Pentips) lorazepam 0.5 mg tablet 0.5 mg PO TID PRN anxiety 30 days 04/04/24 #90 tabs duloxetine 20 mg capsule,delayed 20 mg PO DAILY 90 days #90 caps 05/14/24 release (Cymbalta) albuterol sulfate 90 mcg/actuation 2 puff inhalation Q6H PRN 05/31/24 aerosol inhaler (Ventolin HFA) shortness of breath or wheezing 30 days #8.5 grams atorvastatin 40 mg tablet 40 mg PO BEDTIME 90 days #90 tabs 06/19/24 blood sugar diagnostic (Accu-Chek #100 ea 07/26/24 Odilia Plus test strips) blood sugar diagnostic (Accu-Chek #100 ea 07/26/24 Guide test strips) bumetanide 1 mg tablet 2 mg PO DAILY #90 tabs 07/26/24 empagliflozin 10 mg tablet 10 mg PO DAILY #90 tabs 07/26/24 (Jardiance) lancets (Accu-Chek Softclix #100 ea 07/26/24 Lancets) nystatin 100,000 unit/gram topical 1 appl topical BID #30 grams 08/09/24 powder ipratropium 0.5 mg-albuterol 3 mg 3 ml inhalation Q4H PRN shortness 10/16/24 (2.5 mg base)/3 mL nebulization of breath or wheezing #90 mL soln Allergies Allergy/AdvReac Type Severity Reaction Status Date / Time ibuprofen [From Motrin] Allergy Unknown swelling Verified 10/27/24 07:38 codeine [CODEINE] AdvReac Unknown SLEEPY Verified 10/27/24 07:38 Review of Systems 2 Review of Systems: Yes all other systems are reviewed and are negative PMFSH Past Medical History Medical History Anemia Herpes zoster MARJORIE (acute kidney injury) Left bundle branch block Morbid obesity Chronic pain syndrome Anxiety Pernicious anemia COPD (chronic obstructive pulmonary disease) CHF (congestive heart failure) Hypothyroidism Essential hypertension Diabetes mellitus Pure hypercholesterolemia Surgical History H/O left knee surgery Deficient knowledge of leg surgery History of tonsillectomy and adenoidectomy History of appendectomy Family History Family History Father CVD (cardiovascular disease) Mother No problems noted. Family/Other FH: mental illness Social History Social History Household Members: Children Housing: Apartment Do you presently have visiting nurse or other home services: No Alcohol intake: unknown Patient Tobacco Use Status: Former Tobacco user Tobacco use type: Cigarette e-Cigarette/Vaping Use: Never Used Second Hand Smoke Exposure: No Use of substances other than those prescribed or required for medical reasons: No Currently Displaying Signs/Symptoms of Drug Intoxication Withdrawal: No Have you been hit, kicked, punched, or otherwise hurt by someone within the past year? If so, by whom?: No Do you feel safe in your current relationship?: Yes Is there a partner from a previous relationship who is making you feel unsafe now?: No Are you made to feel afraid or neglected: No [facility] Healthcare Practices: judaism Advance Directives: Yes Advance Directives on File: Yes Advance Directives Date on File: 06/24/24 Do you have a plan to hurt others: No Plan Recently lost weight without trying: Unsure Nutrition Risks: No Nutritional Risk Patient : No service: No Current occupational status: disabled Cognitive needs: Yes Hearing needs: No Vision needs: No Physical Exam ED Vital Signs: Vital Signs - 24 hr 10/27/24 10:43 10/27/24 13:04 Temperature 98.0 F 97.6 F Pulse Rate 88 74 Respiratory Rate 20 17 Blood Pressure 144/66 H 156/58 H Pulse Oximetry 97 99 Oxygen Delivery Method Nasal Cannula Nasal Cannula Oxygen Flow Rate 2 BMI result Body Mass Index 33.9 Const Other: The patient is a chronically ill-appearing 79-year-old woman who was awake and alert. She is wearing nasal oxygen as she does at home. She has a somewhat anxious affect. She seems to be mildly tachypneic but she does not seem to exhibit increased work of breathing. HENMT Other: Face is symmetrical. Mucous membranes are moist. Eyes Other: Pupils are round equal, conjunctivae are clear, extraocular movements intact Neck Other: No obvious JVD Resp Other: The patient seemed mildly tachypneic but was not exhibiting obvious increased work of breathing. Breath sounds may show some slight wheezes. No crackles. Cardio Rate: regular rate Rhythm: regular rhythm Heart sounds: S1 normal heart sound present and S2 normal heart sound present GI Other: The patient has a large abdomen. It is soft and nontender. Skin Other: The patient has an area of some skin breakdown on the right upper buttock near the sacrum. There is excoriation but no exposure of subcutaneous fat. Neuro Other: The patient is awake and alert. Her mental status seems clear. Cranial nerves are grossly intact. She moves her extremities symmetrically although she seems generally weak. Extrem Other: The patient seems to have findings of chronic venous stasis in both lower legs. Feet are cool. Pulses are not easily appreciated. Capillary refill seems present. Medications Administered Generic Name Dose Route Start Last Admin Trade Name Freq PRN Reason Stop Dose Admin Acetaminophen 650 mg 10/27/24 13:51 10/27/24 20:30 Acetaminophen 325 Mg Tablet PO 650 mg Q6H PRN Administration Pain, Mild 1-3,fever,headache Atorvastatin Calcium 40 mg 10/27/24 21:00 10/27/24 21:52 Atorvastatin Calcium 40 Mg Tablet PO 40 mg BEDTIME GEO Administration Bumetanide 2 mg 10/28/24 09:00 10/28/24 07:59 Bumetanide 1 Mg Tablet PO 2 mg DAILY GEO Administration Protocol Duloxetine HCl 20 mg 10/28/24 09:00 10/28/24 07:59 Duloxetine Hcl 20 Mg Capsule.Dr PO 20 mg DAILY GEO Administration Insulin Glargine 15 unit 10/27/24 21:00 10/27/24 21:52 Insulin Glargine,Hum.Rec.Anlog 100 Unit/Ml 10 Ml Vial SUBCUT 15 unit BEDTIME GEO Administration Insulin Human Lispro 0 unit 10/27/24 16:30 10/28/24 08:20 Insulin Lispro 100 Unit/Ml 3 Ml Vial SUBCUT 4 unit QIDACHS [facility] Administration Protocol Levothyroxine Sodium 200 mcg 10/28/24 06:00 10/28/24 06:23 Levothyroxine Sodium 200 Mcg Tablet PO 200 mcg DAILY@0600 GEO Administration Lorazepam 0.5 mg 10/27/24 15:31 10/27/24 21:52 Lorazepam 0.5 Mg Tablet PO 0.5 mg TID PRN Administration anxiety Nystatin 1 appl 10/27/24 21:00 10/27/24 21:53 Nystatin Powder 15 Gm Bottle TOPICAL Not Given BID [facility] Protocol Oxycodone HCl 5 mg 10/27/24 15:31 10/28/24 07:59 Oxycodone Hcl Immed Release 5 Mg Tablet PO 5 mg BID PRN Administration Pain, Severe (Pain Scale 7-10) Sodium Bicarbonate 1,300 mg 10/27/24 21:30 10/28/24 07:59 Sodium Bicarbonate 650 Mg Tablet PO 1,300 mg BID GEO Administration Sodium Chloride 3 ml 10/27/24 16:00 10/28/24 07:59 0.9 % Sodium Chloride Flush 3 Ml Syringe IVFLUSH 3 ml QSHIFT GEO Administration Discontinued Medications Generic Name Dose Route Start Last Admin Trade Name Freq PRN Reason Stop Dose Admin Albuterol/Ipratropium 3 ml 10/27/24 09:13 10/27/24 09:46 Albuterol/Iprat 2.5/0.5mg 3 Ml Ampul.Neb INHALE 10/27/24 09:14 3 ml ONCE ONE Administration Ceftriaxone Sodium 1 gm 10/27/24 11:43 10/27/24 11:50 Ceftriaxone Sodium 1 Gm Vial IVPUSH 10/27/24 11:44 1 gm ONCE ONE Administration Ceftriaxone Sodium 1 gm 10/28/24 01:14 10/28/24 01:49 Ceftriaxone Sodium 1 Gm Vial IVPUSH 10/28/24 01:15 1 gm ONCE ONE Administration Heparin Sodium (Porcine) 5,000 unit 10/27/24 14:00 10/27/24 14:34 Heparin Sodium,Porcine 5,000 Unit/Ml Vial SUBCUT 5,000 unit Q12H GEO Administration Morphine Sulfate 4 mg 10/28/24 01:30 10/28/24 01:54 Morphine Sulfate 4 Mg/Ml Cartridge IVPUSH 10/28/24 01:31 4 mg ONCE ONE Administration Protocol Medical Decision Making Medical Decision Making MDM Narrative: The patient is a 79-year-old female who comes from home. She looks as if she is quite chronically ill and is on home oxygen. She is complaining primarily of pain related to some skin breakdown on the right upper buttock near the sacrum. Rectal temperature was normal. The patient looked mildly tachypneic but I thought this was probably her baseline respiratory status. I was surprised that her venous blood gas showed a pCO2 of 18. Her pH was 7.36. This suggests respiratory compensation for metabolic acidosis. On her metabolic panel her bicarb was 13. There was no significant anion gap. The patient's CRP was 22. A CT scan of the abdomen and pelvis was done to investigate for a possible source of patient's elevated CRP and something that might explain her apparent metabolic acidosis. The primary finding on the CT scan was bilateral hydroureteronephrosis and a large bladder. The patient has been seemingly spontaneously voiding. A urinary catheter was placed and she quickly put out 800 mL of urine. Clearly she was having some degree of bladder outlet obstruction. Her urine looks infected. Blood cultures were obtained. Her lactate was normal. She was started on ceftriaxone. She will be admitted to the hospitalist service for further treatment and evaluation. Lab Data 10/27/24 07:55 10/28/24 05:23 Labs: Lab Results 10/27/24 10/27/24 10/27/24 Range/Units 07:55 08:02 08:24 WBC 12.2 H (4.8-10.8) X10*3/uL RBC 3.89 L D (4.20-5.50) X10*6/uL Hgb 11.2 L (12.0-16.0) g/dl Hct 34.6 L (37.0-47.0) % MCV 88.9 (80.0-98.0) fL MCH 28.8 (27.0-33.0) pg MCHC 32.4 (31.0-35.0) g/dl RDW 16.0 (11.0-16.0) % Plt Count 218 D (160-400) X10*3/uL MPV 9.0 L (9.4-12.3) fL Immature Gran % (Auto) 0.8 H (0.0-0.4) % Neut % (Auto) 90.5 H (45-73) % Lymph % (Auto) 3.0 L (20-40) % [place] % (Auto) 4.4 (2-11) % Eos % (Auto) 0.9 (0-4) % Baso % (Auto) 0.4 (0-2) % Lymph # (Auto) 0.4 L (1.2-4.9) X10*3/uL [place] # (Auto) 0.5 (0.1-1.2) X10*3/uL Eos # (Auto) 0.1 (0.0-0.4) X10*3/uL Baso # (Auto) 0.1 (0.0-0.2) X10*3/uL Abs Immat Gran (auto) 0.10 H (0.00-0.03) X10*3/uL Absolute Neuts (auto) 11.0 H (2.0-8.3) x10*3/uL Absolute Nucleated RBC 0.000 (0.0-0.012) X10*3/uL Nucleated RBC % (auto) 0.0 (0.0-0.2) /100WBC Smear Tech's Comments VERIFIED PT (10.9-12.4) SEC INR (0.9-1.1) VBG pH 7.36 (7.32-7.43) VBG pCO2 18 mmHg VBG pO2 235 mmHg VBG HCO3 10 L (22-26) mmol/L VBG O2 Saturation 100.0 % VBG Base Excess -12.2 mmol/L Sodium 139 (135-145) mmol/L Potassium 4.9 (3.3-5.1) mmol/L Chloride 113 H (96-108) mmol/L Carbon Dioxide 13 L (22-29) mmol/L Anion Gap 18 (12-20) BUN 80 H (9-16) mg/dL Creatinine 2.80 H (0.5-1.4) mg/dL Estim Creat Clear Calc 18.9 Estimated GFR 16 Random Glucose 163 H (60-115) mg/dL Lactic Acid (0.5-2.0) mmol/L Calcium 8.7 D (8.4-10.2) mg/dL Magnesium 2.3 (1.6-2.6) mg/dL Total Bilirubin 0.3 (0.0-1.0) mg/dL Direct Bilirubin 0.1 (0.0-0.5) mg/dL AST 22 (5-31) U/L ALT 6 (0-31) U/L Alkaline Phosphatase 86 (39-117) U/L C-Reactive Protein 22.57 H (< or = 0.50) mg/dL B-Natriuretic Peptide 671 H (<100) pg/mL Total Protein 6.8 (6.5-8.0) g/dL Albumin 3.0 L (3.5-5.0) g/dL Beta-Hydroxybutyrate 1.20 H (0.02-0.27) mmol/L Urine Color Urine Appearance Urine pH (5.0-9.0) Ur Specific [place] (1.005-1.025) Urine Protein (Neg-Trace) mg/dL Urine Glucose (UA) (Negative) mg/dL Urine Ketones (Negative) mg/dL Urine Blood (Negative) Urine Nitrite (Negative) Ur Leukocyte Esterase (Negative) Urine RBC (0-2) /HPF Urine WBC (0-5) /HPF Ur Squamous Epith Cells (0-2) /HPF Urine Bacteria (None Seen) Hyaline Casts (0-2) /LPF Influenza Type A (PCR) NEGATIVE (Negative) Influenza Type B (PCR) NEGATIVE (Negative) RSV RNA Qual (PCR) NEGATIVE (Negative) SARS-CoV-2 RNA (RT-PCR) NEGATIVE (Negative) 10/27/24 10/27/24 10/27/24 Range/Units 09:00 10:07 11:19 WBC (4.8-10.8) X10*3/uL RBC (4.20-5.50) X10*6/uL Hgb (12.0-16.0) g/dl Hct (37.0-47.0) % MCV (80.0-98.0) fL MCH (27.0-33.0) pg MCHC (31.0-35.0) g/dl RDW (11.0-16.0) % Plt Count (160-400) X10*3/uL MPV (9.4-12.3) fL Immature Gran % (Auto) (0.0-0.4) % Neut % (Auto) (45-73) % Lymph % (Auto) (20-40) % [place] % (Auto) (2-11) % Eos % (Auto) (0-4) % Baso % (Auto) (0-2) % Lymph # (Auto) (1.2-4.9) X10*3/uL [place] # (Auto) (0.1-1.2) X10*3/uL Eos # (Auto) (0.0-0.4) X10*3/uL Baso # (Auto) (0.0-0.2) X10*3/uL Abs Immat Gran (auto) (0.00-0.03) X10*3/uL Absolute Neuts (auto) (2.0-8.3) x10*3/uL Absolute Nucleated RBC (0.0-0.012) X10*3/uL Nucleated RBC % (auto) (0.0-0.2) /100WBC Smear Tech's Comments PT 11.9 (10.9-12.4) SEC INR 1.0 (0.9-1.1) VBG pH (7.32-7.43) VBG pCO2 mmHg VBG pO2 mmHg VBG HCO3 (22-26) mmol/L VBG O2 Saturation % VBG Base Excess mmol/L Sodium (135-145) mmol/L Potassium (3.3-5.1) mmol/L Chloride (96-108) mmol/L Carbon Dioxide (22-29) mmol/L Anion Gap (12-20) BUN (9-16) mg/dL Creatinine (0.5-1.4) mg/dL Estim Creat Clear Calc Estimated GFR Random Glucose (60-115) mg/dL Lactic Acid 0.8 (0.5-2.0) mmol/L Calcium (8.4-10.2) mg/dL Magnesium (1.6-2.6) mg/dL Total Bilirubin (0.0-1.0) mg/dL Direct Bilirubin (0.0-0.5) mg/dL AST (5-31) U/L ALT (0-31) U/L Alkaline Phosphatase (39-117) U/L C-Reactive Protein (< or = 0.50) mg/dL B-Natriuretic Peptide (<100) pg/mL Total Protein (6.5-8.0) g/dL Albumin (3.5-5.0) g/dL Beta-Hydroxybutyrate (0.02-0.27) mmol/L Urine Color Yellow Urine Appearance Turbid Urine pH 5.5 (5.0-9.0) Ur Specific [place] 1.010 (1.005-1.025) Urine Protein 300 (3+) H (Neg-Trace) mg/dL Urine Glucose (UA) 500 H (Negative) mg/dL Urine Ketones Trace (Negative) mg/dL Urine Blood Large (3+) H (Negative) Urine Nitrite Negative (Negative) Ur Leukocyte Esterase Large (3+) H (Negative) Urine RBC 11-20 H (0-2) /HPF Urine WBC >50 H (0-5) /HPF Ur Squamous Epith Cells 0-2 (0-2) /HPF Urine Bacteria 4+ (None Seen) Hyaline Casts 3-5 (0-2) /LPF Influenza Type A (PCR) (Negative) Influenza Type B (PCR) (Negative) RSV RNA Qual (PCR) (Negative) SARS-CoV-2 RNA (RT-PCR) (Negative) Discharge Plan Discharge Clinical Impression: Urinary tract infection, Urinary retention, Renal insufficiency, Metabolic acidosis, Skin ulcer of sacral region Patient Disposition: Admitted As Inpatient Interventions: Admission Worksheet (ED) Last Done: 10/27/24 20:18 Discharge Date/Time: 10/27/24 21:02
--- NOTE | 2024-10-27 07:15 | ED_ITS ---
HPI - Skin/Abscess/Foreign Bdy General Stated complaint: BED SORE PAIN/SPLIT ON BUTTOCK PER EMS Time Seen by Provider: 10/27/24 07:15 Related Data Home Medications ?Medication ?Instructions ?Recorded ?Confirmed insulin glargine 100 unit/mL (3 15 unit subcut BEDTIME 06/19/24 08/03/24 mL) subcutaneous pen (Basaglar KwikPen U-100 Insulin) levothyroxine 200 mcg tablet 200 mcg PO DAILY@0600 06/19/24 08/03/24 Previous Rx's ?Medication ?Instructions ?Recorded insulin syringe-needle U-100 0.5 #100 ea 07/29/23 mL 31 gauge x 5/16 (BD Insulin Syringe Ultra-Fine) pen needle, diabetic 31 gauge x #100 ea 07/29/23 5/16 (1st Tier Unifine Pentips) lorazepam 0.5 mg tablet 0.5 mg PO TID PRN anxiety 30 days 04/04/24 #90 tabs duloxetine 20 mg capsule,delayed 20 mg PO DAILY 90 days #90 caps 05/14/24 release (Cymbalta) albuterol sulfate 90 mcg/actuation 2 puff inhalation Q6H PRN 05/31/24 aerosol inhaler (Ventolin HFA) shortness of breath or wheezing 30 days #8.5 grams atorvastatin 40 mg tablet 40 mg PO BEDTIME 90 days #90 tabs 06/19/24 amlodipine 10 mg tablet 10 mg PO DAILY #0 tabs 06/23/24 blood sugar diagnostic (Accu-Chek #100 ea 07/26/24 Odilia Plus test strips) blood sugar diagnostic (Accu-Chek #100 ea 07/26/24 Guide test strips) bumetanide 1 mg tablet 2 mg PO DAILY #90 tabs 07/26/24 empagliflozin 10 mg tablet 10 mg PO DAILY #90 tabs 07/26/24 (Jardiance) lancets (Accu-Chek Softclix #100 ea 07/26/24 Lancets) amoxicillin 875 mg-potassium 1 tab PO BID #6 tabs 08/09/24 clavulanate 125 mg tablet doxycycline monohydrate 100 mg 100 mg PO BID #6 caps 08/09/24 capsule insulin lispro 100 unit/mL See Protocol subcut QIDACHS #10 mL 08/09/24 subcutaneous solution (Admelog U-100 Insulin lispro) nystatin 100,000 unit/gram topical 1 appl topical BID #30 grams 08/09/24 powder omeprazole 20 mg capsule,delayed 20 mg PO DAILY@0630 #30 caps 08/09/24 release oxycodone 5 mg tablet 5 mg PO Q8H PRN Pain, Severe (Pain 08/09/24 Scale 7-10) #10 tabs ipratropium 0.5 mg-albuterol 3 mg 3 ml inhalation Q4H PRN shortness 10/16/24 (2.5 mg base)/3 mL nebulization of breath or wheezing #90 mL soln Allergies Allergy/AdvReac Type Severity Reaction Status Date / Time ibuprofen [From Motrin] Allergy Unknown swelling Verified 08/03/24 13:26 codeine [CODEINE] AdvReac Unknown SLEEPY Verified 08/03/24 13:26 FOR[facility]LY [facility], [facility] Past Medical History Medical History MARJORIE (acute kidney injury) Left bundle branch block Morbid obesity Chronic pain syndrome Anxiety Pernicious anemia COPD (chronic obstructive pulmonary disease) CHF (congestive heart failure) Hypothyroidism Essential hypertension Diabetes mellitus Pure hypercholesterolemia Surgical History H/O left knee surgery Deficient knowledge of leg surgery History of tonsillectomy and adenoidectomy History of appendectomy Family History Family History Father CVD (cardiovascular disease) Mother No problems noted. Family/Other FH: mental illness Social History Social History Household Members: Unknown / Unable to assess Housing: Unknown / Unable to assess Do you presently have visiting nurse or other home services: Yes ([facility]) Alcohol intake: unknown Patient Tobacco Use Status: Former Tobacco user Tobacco use type: Cigarette e-Cigarette/Vaping Use: Never Used Second Hand Smoke Exposure: No Advance Directives Date on File: 06/24/24 service: No Current occupational status: disabled Cognitive needs: Yes Hearing needs: No Vision needs: No Discharge Plan Discharge Prescriptions: No Action (DME) insulin syringe-needle U-100 [BD Insulin Syringe Ultra-Fine] 0.5 mL 31 gauge x 5/16 syringe See Rx Instructions .Route Qty: 100 3RF Rx Instructions: Use 1 needle once a day (DME) pen needle, diabetic [1st Tier Unifine Pentips] 31 gauge x 5/16 needle See Rx Instructions .Route Qty: 100 4RF Rx Instructions: Use 1 pen needle once a day lorazepam 0.5 mg tablet 0.5 mg PO TID PRN (Reason: anxiety) 30 Days Qty: 90 0RF Rx Instructions: coverage for [facility] [place] duloxetine [Cymbalta] 20 mg capsule,delayed release(DR/EC) 20 mg PO DAILY 90 Days Qty: 90 0RF albuterol sulfate [Ventolin HFA] 90 mcg/actuation HFA aerosol inhaler 2 puff inhalation Q6H PRN (Reason: shortness of breath or wheezing) 30 Days Qty: 8.5 3RF atorvastatin 40 mg tablet 40 mg PO BEDTIME 90 Days Qty: 90 3RF Jardiance 10 mg tablet 10 mg PO DAILY Qty: 90 1RF bumetanide 1 mg tablet 2 mg PO DAILY Qty: 90 1RF Protocol: Hold for SBP< HOLD for SBP < : 90 (DME) Accu-Chek Odilia Plus test strp Strip See Rx Instructions .Route Qty: 100 1RF Rx Instructions: Use 1 test strip once a day (DME) Accu-Chek Guide test strips Strip See Rx Instructions .Route Qty: 100 3RF Rx Instructions: Use 1 test strip once a day (DME) lancets [Accu-Chek Softclix Lancets] Misc See Rx Instructions .Route Qty: 100 3RF Rx Instructions: Use 1 lancet once a day ipratropium-albuterol 0.5 mg-3 mg(2.5 mg base)/3 mL solution for nebulization 3 ml inhalation Q4H PRN (Reason: shortness of breath or wheezing) Qty: 90 0RF levothyroxine 200 mcg tablet 200 mcg PO DAILY@0600 insulin glargine [Basaglar KwikPen U-100 Insulin] 100 unit/mL (3 mL) insulin pen 15 unit subcut BEDTIME amlodipine 10 mg Tablet 10 mg PO DAILY Qty: 0 0RF Protocol: Hold for SBP< HOLD for SBP < : 90 nystatin 100,000 unit/gram Powder 1 appl topical BID Qty: 30 0RF Protocol: Apply to: Apply to: Groin insulin lispro [Admelog U-100 Insulin lispro] 100 unit/mL Solution See Protocol subcut YARED Qty: 10 0RF Protocol: Insulin Correction Scale Less than or equal to 110 ---- Give (units): 0 111 to 150 Give (units): 0 151 to 200 Give (units): 2 201 to 250 Give (units): 4 251 to 300 Give (units): 6 301 to 350 Give (units): 8 Greater than 350 Give (units): 10 Call MD if Blood Glucose > : 350 Rx Instructions: BG <111 0 units, 111-150 - 0 units, 151-200 2 units, 201-250 4 units, 251-300 6 units, 301-350 8 units, >350 10 units omeprazole 20 mg Capsule,Delayed Release(Dr/Ec) 20 mg PO DAILY@0630 Qty: 30 0RF oxycodone 5 mg Tablet 5 mg PO Q8H PRN (Reason: Pain, Severe (Pain Scale 7-10)) Qty: 10 0RF Rx Instructions: Partial Fill upon patient request. doxycycline monohydrate 100 mg Capsule 100 mg PO BID Qty: 6 0RF amoxicillin-pot clavulanate 875-125 mg Tablet 1 tab PO BID Qty: 6 0RF Print Language: Azeri
--- NOTE | 2024-10-27 07:33 | ECG_ITS ---
Test Reason : SOB Blood Pressure : / mmHG Vent. Rate : 077 BPM Atrial Rate : 077 BPM P-R Int : 212 ms QRS Dur : 116 ms QT Int : 430 ms P-R-T Axes : 067 -47 080 degrees QTc Int : 486 ms Sinus rhythm with marked sinus arrhythmia with 1st degree A-V block Left anterior fascicular block Left ventricular hypertrophy with QRS widening and repolarization abnormality ( R in aVL , [place] product ) Abnormal ECG When compared with ECG of 03-AUG-2024 13:34, Sinus rhythm has replaced Atrial fibrillation Minimal criteria for Septal infarct are no longer Present Referred By: Feng Obrien Electronically Signed By:BECKIE GARRETT MD
--- OUTSIDE RECORDS SUMMARY | 2024-10-27 07:54 | XMS_ITS | Continuity of Care Document ---
Author Organization [facility], [facility] Address [address] [place] [address] Care Team Providers Care Dental Hygiene Teacher Name Role Phone VALARIE JORDAN - 2ND FLOOR OTHER SHOBHA SMITH Primary Care Provider Assessment No assessment recorded. Plan of Treatment Reminders Order Date Submit Date Provider Last Modified By Organization Details Last Modified Time Details Appointments None record ed. Lab None record ed. Referral None record ed. Procedures None record ed. Surgeries None record ed. Imaging None record ed. Medication Orders None record ed. Patient TargetsNo targets recorded. Patient InstructionsNo instructions recorded. Reason for Referral None Reported. Problems Name Problem SNOMED Code Status Onset Date Resolution Date Notes Provider Name and Address Organization Details Recorded Time Acute hypoxemic respirator y failure 899909104 Active 2023 ALLAN PRADHAN NP [address] [facility], [address], [place], [address], [facility] 4 10:51:05 Pneumonia 775726659 Active 2023 ALLAN PRADHAN NP [address] , [address], [place], [address], [facility] 4 10:51:21 Pleural effusion 12323609 Active 2023 ALLAN PRADHAN NP [address] , [address], [place], [address], [facility] 4 10:51:43 Gastroesop hageal reflux disease without esophagiti s 385331456 Active 2023 ALLAN PRADHAN NP [address] [facility], [address], [place], [address], [facility] 4 10:53:46 Anxiety 66411046 Active 2023 ALLAN PRADHAN NP [address], [address], [place], [address], [facility] 4 11:00:09 Chronic kidney disease stage 3 349038519 Active 2023 ALLAN PRADHAN NP [address], [address], [place], [address], [facility] 4 11:21:29 Chronic pain syndrome 487087057 Active 2023 ALLAN PRADHAN NP [address], [address], [place], [address], [facility] 4 11:21:39 Acute nontraumat ic kidney injury 3826615410916 03 Active 2023 ALLAN PRADHAN NP [address], [address], [place], [address], [facility] 4 11:23:16 Left bundle branch block 01591818 Active 2023 ALLAN PRADHAN NP [address], [address], [place], [address], [facility] 4 11:23:30 Pernicious anemia 39529282 Active 2023 ALLAN PRADHAN NP [address], [address], [place], [address], [facility] 4 11:23:46 Obstructiv e sleep apnea syndrome 63316907 Active 2023 ALLAN PRADHAN NP [address], [address], [place], [address], [facility] 4 11:47:23 Open wound 550395456 Active 2023 sacral ALLAN PRADHAN NP [address], [address], [place], [address], [facility] 4 12:05:33 Asthenia 02527361 Active 2023 ALLAN PRADHAN NP [address], [address], [place], [address], [facility] 4 12:10:47 Diastolic heart failure 988221978 Active 2018 Hal Cole MD [address], [address], [place], [address], [facility] 9 14:45:31 Dysphagia 89705672 Active 2018 Hal Cole MD [address], [address], [place], [address], [facility] 9 14:45:39 Chronic obstructiv e pulmonary disease 21393609 Active 2018 Hal Cole MD [address], [address], [place], [address], [facility] 9 14:45:48 Essential hypertensi on 08929917 Active 2018 Hal Cole MD [address] [facility] [address], [address], [place], [address], [facility] 9 14:45:53 Diabetes mellitus 19055137 Active 2018 Hal Cole MD [address] [facility], [address], [place], [address], [facility] 9 14:45:57 Hyperlipid emia 19239273 Active 2018 Hal Cole MD [address] [facility] [address], [address], [place], [address], [facility] 9 14:46:04 Obesity 723096609 Active 2018 Hal Cole MD [address] [facility], [address], [place], [address], [facility] 9 14:46:12 Hypothyroi dism 04771489 Active 2018 Hal Cole MD [address] [facility] [address], [address], [place], [address], [facility] 9 14:50:40 Problem Notes None recorded. Medical Equipment None Reported. Allergies Allergen ID Allergen Name Allergen Category Reaction Reaction Severity Criticality Documentation Date Start Date Code Code System Note Provider Name and Address Organization Details Recorded Time [id number] 2824e ibuprofen medicatio n Not available Not available Not available 08/11/2024 5640 RxNorm swell ing Not Available Not Available Not Available [id number] 8577820o8 2824e codeine medicatio n Not available Not available Not available 08/11/2024 2670 RxNorm sleep y Not Available Not Available Not Available Medications Name Sig Start Date Stop Date Status Note LastModified by Organization Details LastModified Time Ativan 0.5 mg tablet 1 tab po tid prn 024 active Not Available Not Available Not Avai lable oxycodone 5 mg tablet Take 1 tablet every 8 hours by oral route as needed. 024 active Not Available Not Available Not Avai lable Vitals Date Recorded Body height Body weight Body mass index (BMI) Heart rate Respiratory rate Body temperature Oxygen saturation Oxygen saturation in Arterial blood by Pulse oximetry Systolic blood pressure Diastolic blood pressure Provider Name and Address Organization Details Last Updated DateTime 4 167.64 cm 72684.2 5 g 32.8 kg/m2 74 /min 16 /min 97.9 [degF] 95 % 95 % 133 mm[Hg] 72 mm[Hg] Eloina Odom, CHIO [address] [facility] [address] [facility] [address], [place], [address] [place] - [facility] 4 08:16:49 Social History Question Answer Notes LastModified by Organizat ion Details LastModified Time Tobacco Smoking Status [facility]oker Not Available [facility] 08/21/2020 03:13:21 Do You Have An Advance Directive? No Full Code [id number] Information not available 08/21/2020 What Is Your Level Of Alcohol Consumption? None [email or web address] Information not available 08/11/2024 What Is Your Code Status? Full Code [email or web address] Information not available 09/01/2024 Do You Have A Medical Power Of General Accountant? Yes Has HCP [email or web address] Information not available 08/11/2024 What Was The Date Of Your Most Recent Tobacco Screening? 08/11/2024 Information not available 08/11/2024 Do You Have An Out Of Hospital DNR? Yes Information not available 09/01/2024 How Much Tobacco Do You Smoke? 1.5 PPD [id number] Information not available 08/21/2020 Do You Use Any Illicit Or Recreational Drugs? No Information not available 08/11/2024 Has Tobacco Cessation Counseling Been Provided? No [email or web address] Information not available 08/11/2024 How Many Years Have You Smoked Tobacco? 25 [id number] Information not available 08/21/2020 Do You Or Have You Ever Used Any Other Forms Of Tobacco Or Nicotine? No Information not available 08/11/2024 Sex: Unknown Functional Status None recorded. Mental Status None recorded. Family History Relationship Description Onset Age of this Age Resolved Age Notes LastModified by Organization Details LastModified Time Father Disorder of cardiovascul ar system [email or web address] Not available 2023 11:24:15 Medical History No medical history recorded. Gynecological HistoryNo gynecological history recorded. Obstetrics History GPAL:G 0 P 0 0 0 0 Immunizations Vaccine Type Date Status Note Provider Nam e and Address Organization Details Recorded Time influenza, unspecified formulation 11/10/2021 completed Jessica Santos [facility] 08/10/2024 14:21:03 Past Encounters Encounter ID Performer Location Encounter Start Date Encounter Closed Date Diagnosis/Indication Diagnosis SNOMED-CT Code Diagnosis ICD10 Code [id number] ALLAN PRADHAN NP [address] [address] 09/01/2024 12:36:05 09/02/2024 11:15:18 Asthenia 67467705 R53.1 Acute hypo xemic respiratory failure 672030018 J96.01 Chronic ob structive pulmonary disease 99544268 J41.1 Pneumonia 949767828 J18. 9 Diastolic heart failure 344158560 I50.33 Pleural effusion 9132550 8 J90 Chronic ki dney disease stage 3 424899653 N18.30 Diabetes mellitus 645326 09 E11.9 Essential hypertension 98967967 I10 Hyperlipidemia 31291148 E78.49 Hypothyroidism 41930367 E03.8 Gastroesop hageal reflux disease without esophagitis 561234842 K21.9 Anxiety 30416175 F41.9 Chronic pain syndrome 37 6077678 G89.4 Obstructiv e sleep apnea syndrome 99573481 G47.33 Open wound 570315003 T14 .8XXA Constipation 11698351 K5 9.00 [id number] ALLAN PRADHAN NP [facility] [address] 09/06/2024 14:01:29 09/07/2024 10:12:43 Asthenia 48875542 R53.1 Acute hypo xemic respiratory failure 003243226 J96.01 Chronic ob structive pulmonary disease 26978201 J41.1 Pneumonia 275241540 J18. 9 Diastolic heart failure 126895286 I50.33 Pleural effusion 3329162 8 J90 Chronic ki dney disease stage 3 595991994 N18.30 Diabetes mellitus 756340 09 E11.9 Essential hypertension 03615407 I10 Hyperlipidemia 38860302 E78.49 Hypothyroidism 01090281 E03.8 Gastroesop hageal reflux disease without esophagitis 355809703 K21.9 Anxiety 16108825 F41.9 Chronic pain syndrome 37 5427440 G89.4 Obstructiv e sleep apnea syndrome 73359244 G47.33 Open wound 420402181 T14 .8XXA Constipation 33961427 K5 9.00 [id number] ALLAN PRADHAN NP [facility] [address] [address] 09/08/2024 13:47:32 09/09/2024 11:13:19 Constipation 21316901 K59.00 Asthenia 61465627 R53.1 Open wound 587379896 T14 .8XXA Acute hypo xemic respiratory failure 940407563 J96.01 Chronic ob structive pulmonary disease 94634731 J41.1 Pneumonia 463407509 J18. 9 Diastolic heart failure 281083950 I50.33 Pleural effusion 0296224 8 J90 Chronic ki dney disease stage 3 061427884 N18.30 Diabetes mellitus 171589 09 E11.9 Essential hypertension 90042589 I10 Hyperlipidemia 81437312 E78.49 Hypothyroidism 63314670 E03.8 Gastroesop hageal reflux disease without esophagitis 884421588 K21.9 Anxiety 80558919 F41.9 Chronic pain syndrome 37 0615459 G89.4 Obstructiv e sleep apnea syndrome 22728997 G47.33 [id number] Eloina Odom NP [facility] [address] [address] 09/14/2024 09:01:39 09/15/2024 09:07:05 Constipation 42440267 K59.00 Asthenia 24758382 R53.1 Open wound 267479407 T14 .8XXA Acute hypo xemic respiratory failure 456732205 J96.01 Chronic ob structive pulmonary disease 78383160 J41.1 Pneumonia 537690212 J18. 9 Diastolic heart failure 237314703 I50.33 Pleural effusion 7332744 8 J90 Chronic ki dney disease stage 3 868784294 N18.30 Diabetes mellitus 427807 09 E11.9 Essential hypertension 63094974 I10 Hyperlipidemia 87997714 E78.49 Hypothyroidism 20821374 E03.8 Gastroesop hageal reflux disease without esophagitis 111654221 K21.9 Anxiety 77579911 F41.9 Chronic pain syndrome 37 4480332 G89.4 Obstructiv e sleep apnea syndrome 21378800 G47.33 [id number] [facility] [address] 09/27/2024 20:05:35 09/28/2024 10:42:39 Diastolic heart failure 146703238 I50.33 Asthenia 00752846 R53.1 Open wound 974230363 T14 .8XXA Acute hypo xemic respiratory failure 427625386 J96.01 Chronic ob structive pulmonary disease 68679186 J41.1 Pleural effusion 9163658 8 J90 Chronic ki dney disease stage 3 406632008 N18.32 Diabetes mellitus 858499 09 E11.9 Essential hypertension 06304950 I10 Hyperlipidemia 87076348 E78.49 Hypothyroidism 17113446 E03.8 Gastroesop hageal reflux disease without esophagitis 878976943 K21.9 Pneumonia 714931176 J18. 9 Anxiety 54440092 F41.1 Chronic pain syndrome 37 5775185 G89.4 Obstructiv e sleep apnea syndrome 75441312 G47.33 [id number] [facility] [address] 09/30/2024 08:15:34 10/03/2024 13:20:59 Diastolic heart failure 391986589 I50.33 Asthenia 81187291 R53.1 Chronic ob structive pulmonary disease 64665870 J41.1 Pleural effusion 5159974 8 J90 Acute hypo xemic respiratory failure 161496608 J96.01 Chronic ki dney disease stage 3 120159419 N18.32 Diabetes mellitus 006637 09 E11.9 Essential hypertension 34986975 I10 Hyperlipidemia 88499865 E78.49 Open wound 604296960 T14 .8XXA Hypothyroidism 49805494 E03.8 Gastroesop hageal reflux disease without esophagitis 691755429 K21.9 Pneumonia 672143576 J18. 9 Anxiety 10880896 F41.1 Chronic pain syndrome 37 8305005 G89.4 Obstructiv e sleep apnea syndrome 46365681 G47.33 Health Concerns Section Related Observation LastModified by Organization Detai ls LastModified Time None Recorded Concern Status LastModified by Organization Details LastModified Time None Recorded Payers Encounter Date Sequence Insurance Name Policy Number Policy Tidwell Covered Member ID Tidwell Member ID Guarantor Name 09/30/2024 1 [place]: [employer] Radhika Vaca [id number] Radhika Vaca 09/30/2024 2 [place] [facility] Radhika Vaca [id number] Radhika Vaca Notes Date Note Type Note Provider Name and Address Organization Details Recorded Time 09/30/2024 text/html Pt is a 79 yo fe male seen for a discharge summary today. Her PMH includes HTN, CKD stage 3B, COPD on home O2, CHF-right sided, AODM, chronic pain, dysphagia, HLD, hypothyroidism, morbid obesity, pernicious anemia, LBBB, and TEZ. Radhika was admitted on 08/09 after a hospitalization for acute on chronic hypoxic resp failure due to a combination of PNA, COPD and CHF. Per records:She initially needed BiPAP support, but was quickly weaned.Responded well to multiple interventions including thoracentesis. She also had MARJORIE thought to be due to cardiorenal syndrome which resolved with fluid management. She also developed a sacral wound and was followed by wound care for this. She improved and was transferred here for STR. Since here at [facility]: She had a sacral wound treated with barrier cream and foam dressing now healed in. She was treated for a fungal rash mostly healed. She is aware continuing freq changes and antifungal cream or powder will cont to keep fungal at bay. BS controlled 100s with occassional 200s. Seems new supplies recently sent to pharmacy on dc from hospital. She has not used sliding scale much and controlled on home regimen of basaglar and jardiance with occassional SSI coverage. She was noted to be constipated required fleets enema, mag citrate, and increase in bowel meds while here which seems resolved. She reports she always has a large obese abd. Pneumonia resolved clinically and completed abx. Seems at baseline with chronic o2 at 2 liters. Overall, has made slow progress, but feels she is now at the point she was prior to this illness. She still needs help getting in and out of bed, but is ambulating with walker independently once up. Per therapy notes on 09/29 she ambulated with o2 75 with walker. Her home is handicapped accessible and her son is home almost all the time to help with transfers. She also has a lift chair she uses during the day. PT notes say she still has compromised balance and coordination, however she is persistant on heading to home today. Her vitals and Blood pressure are stable. Labs reviewed and stable while here. Cr 1.5-1.9 seems like new baseline. On exam, Radhika is persistant to go home and mentions a [employer] bus that may take her home with o2. She is aware social worker school is working on a plan and she will follow with pcp outpt. Breathing non labored. Eloina Odom NP [address] [facility], [address], [place], [address], [facility] 09/30/2024 08:56:26 OBGyn Episode No OBEpisode recorded.
--- OUTSIDE RECORDS SUMMARY | 2024-10-27 07:54 | XMS_ITS | Continuity of Care Document ---
Author Organization [facility], [facility] Address [address] [place] [address] Care Team Providers Care [employer] Mdm Developer Name Role Phone VALARIE JORDAN - 2ND FLOOR OTHER SHOBHA SMITH Primary Care Provider [phone] Assessment No assessment recorded. Plan of Treatment Reminders Order Date Submit Date Provider Last Modified By Organization Details Last Modified Time Details Appointments None record ed. Lab None record ed. Referral None record ed. Procedures None record ed. Surgeries None record ed. Imaging None record ed. Medication Orders None record ed. Patient TargetsNo targets recorded. Patient Instructions Encounter Date Encounter Id Patient Instructions Last Modified By Organization Details Last Modified Time 09/08/2024 [id number] medicines to avoid with kidney disease: care instructions Not available 09/08/2024 13:56:49 Reason for Referral None Reported. Problems Name Problem SNOMED Code Status Onset Date Resolution Date Notes Provider Name and Address Organization Details Recorded Time Acute hypoxemic respirator y failure 664230056 Active 2023 ALLAN PRADHAN NP [address] [facility], [address], [place], [address], [facility] 4 10:51:05 Pneumonia 228946752 Active 2023 ALLAN PRADHAN NP [address] [facility], [address], [place], [address], [facility] [employer] 4 10:51:21 Pleural effusion 85307357 Active 2023 ALLAN PRADHAN NP [address] [facility], [address], [place], [address], [facility] [employer] 4 10:51:43 Gastroesop hageal reflux disease without esophagiti s 641915592 Active 2023 ALLAN PRADHAN NP [address], [address], [place], [address], [facility] 4 10:53:46 Anxiety 39622788 Active 2023 ALLAN PRADHAN NP [address], [place], [address], [facility] 4 11:00:09 Chronic kidney disease stage 3 735197514 Active 2023 ALLAN PRADHAN NP [address], [place], [address], [facility] 4 11:21:29 Chronic pain syndrome 833291268 Active 2023 ALLAN PRADHAN NP [address], [address], [place], [address], [facility] 4 11:21:39 Acute nontraumat ic kidney injury 7524140761686 03 Active 2023 ALLAN PRADHAN NP [address], [address], [place], [address], [facility] 4 11:23:16 Left bundle branch block 35034135 Active 2023 ALLAN PRADHAN NP [address], [address], [place], [address], [facility] 4 11:23:30 Pernicious anemia 04542978 Active 2023 ALLAN PRADHAN NP [address], [place], [address], [facility] 4 11:23:46 Obstructiv e sleep apnea syndrome 44559596 Active 2023 ALLAN PRADHAN NP [address], [address], [place], [address], [facility] 4 11:47:23 Open wound 968487028 Active 2023 sacral ALLAN PRADHAN NP [address], [address], [place], [address], [facility] 4 12:05:33 Asthenia 33812701 Active 2023 ALLAN PRADHAN NP [address], [address], [place], [address], [facility] 4 12:10:47 Diastolic heart failure 655073342 Active 2018 Hal Cole MD [address], [place], [address], [facility] 9 14:45:31 Dysphagia 02626515 Active 2018 Hal Cole MD [address], [address], [place], [address], [facility] 9 14:45:39 Chronic obstructiv e pulmonary disease 83249113 Active 2018 Hal Cole MD [address], [place], [address], [facility] 9 14:45:48 Essential hypertensi on 42283946 Active 2018 Hal Cole MD [address], [address], [place], [address], [place] [facility] 9 14:45:53 Diabetes mellitus 99858362 Active 2018 Hal Cole MD [address], [address], [place], [address], [facility] 9 14:45:57 Hyperlipid emia 37392785 Active 2018 Hal Cole MD [address], [place], [address], [facility] 9 14:46:04 Obesity 481158044 Active 2018 Hal Cole MD [address], [address], [place], [address], [facility] 9 14:46:12 Hypothyroi dism 89665783 Active 2018 Hal Cole MD [address], [address], [place], [address], [facility] 9 14:50:40 Problem Notes None recorded. Medical Equipment None Reported. Allergies Allergen ID Allergen Name Allergen Category Reaction Reaction Severity Criticality Documentation Date Start Date Code Code System Note Provider Name and Address Organization Details Recorded Time [id number] 2824e ibuprofen medicatio n Not available Not available Not available 08/11/2024 5640 RxNorm swell ing Not Available Not Available Not Available [id number] 2824e codeine medicatio n Not available Not [...] Available Not Avai lable Vitals Date Recorded Heart rate Respiratory rate Body temperature Oxygen saturation Oxygen saturation in Arterial blood by Pulse oximetry Systolic blood pressure Diastolic blood pressure Provider Name and Address Organization Details Last Updated DateTime 4 74 /min 18 /min 99 [degF] 98 % 98 % 130 mm[Hg] 74 mm[Hg] ALLAN PRADHAN, CHIO [address] [facility], [address], [place], [address], [place] [facility] 4 13:48:17 Social History Question Answer Notes LastModified by Organizat ion Details LastModified Time Tobacco Smoking Status Former Smoker Not Available [facility] 08/21/2020 03:13:21 Do You Have An Advance Directive? No Full Code [id number] Information not available 08/21/2020 What Is Your Level Of Alcohol Consumption? None [email or web address] Information not available 08/11/2024 What Is Your Code Status? 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 08/11/2024 Information not available 08/11/2024 Do You Have An Out Of Hospital DNR? Yes Information not available 09/01/2024 How Much Tobacco Do You Smoke? 1.5 PPD [id number] Information not available 08/21/2020 Do You Use Any Illicit Or Recreational Drugs? No [email or web address] Information not available 08/11/2024 Has Tobacco Cessation Counseling Been Provided? No Information not available 08/11/2024 How Many Years Have You Smoked Tobacco? 25 [id number] Information not available 08/21/2020 Do You Or Have You Ever Used Any Other Forms Of Tobacco Or Nicotine? No [email or web address] Information not available 08/11/2024 Sex: Unknown Functional Status None recorded. Mental Status None recorded. Family History Relationship Description Onset Age of this Age Resolved Age Notes LastModified by Organization Details LastModified Time Father Disorder of cardiovascul ar system [email or web address] Not available 2023 11:24:15 Medical History No medical history recorded. Gynecological HistoryNo gynecological history recorded. Obstetrics History GPAL:G 0 P 0 0 0 0 Immunizations Vaccine Type Date Status Note Provider Nam e and Address Organization Details Recorded Time influenza, unspecified formulation 11/10/2021 completed [facility] 08/10/2024 14:21:03 Past Encounters Encounter ID Performer Location Encounter Start Date Encounter Closed Date Diagnosis/Indication Diagnosis SNOMED-CT Code Diagnosis ICD10 Code [id number] ALLAN PRADHAN NP [address] [address] 08/11/2024 10:50:24 08/15/2024 09:32:52 Acute hypoxemic respiratory failure 763074819 J96.01 Chronic ob structive pulmonary disease 69889285 J41.1 Pneumonia 284072518 J18. 9 Diastolic heart failure 938548771 I50.33 Pleural effusion 2221929 8 J90 Diabetes mellitus 149981 09 E11.9 Essential hypertension 77084702 I10 Hyperlipidemia 03543179 E78.49 Hypothyroidism 51724466 E03.8 Gastroesop hageal reflux disease without esophagitis 021325291 K21.9 Anxiety 95473676 F41.9 Chronic ki dney disease stage 3 340323933 N18.30 Chronic pain syndrome 37 1637566 G89.4 Obstructiv e sleep apnea syndrome 74548724 G47.33 Asthenia 47610608 R53.1 Open wound 920241279 T14 .8XXA [id number] Hal Cole MD [facility] [address] 08/15/2024 12:44:18 08/17/2024 11:09:33 Asthenia 34981094 R53.1 Acute hypo xemic respiratory failure 518061381 J96.01 Chronic ob structive pulmonary disease 20290496 J44.1 Pneumonia 457165489 J15. 8 Diastolic heart failure 593550508 I50.33 Diabetes mellitus 918350 09 E11.9 Hyperlipidemia 14042848 E78.49 Hypothyroidism 35000467 E03.8 Gastroesop hageal reflux disease without esophagitis 995690414 K21.9 Acute kidney injury 1466 9001 N17.8 [id number] ALLAN PRADHAN NP [facility] [address] [address] 08/16/2024 11:32:50 08/24/2024 10:16:43 Asthenia 41331760 R53.1 Acute hypo xemic respiratory failure 438833564 J96.01 Chronic ob structive pulmonary disease 68176565 J41.1 Pneumonia 360838420 J18. 9 Diastolic heart failure 406676305 I50.33 Pleural effusion 2828786 8 J90 Chronic ki dney disease stage 3 567760930 N18.30 Diabetes mellitus 125426 09 E11.9 Essential hypertension 53515061 I10 Hyperlipidemia 70297838 E78.49 Hypothyroidism 76238784 E03.8 Gastroesop hageal reflux disease without esophagitis 233432160 K21.9 Anxiety 03107960 F41.9 Chronic pain syndrome 37 2517774 G89.4 Obstructiv e sleep apnea syndrome 95216605 G47.33 Open wound 734669390 T14 .8XXA [id number] ALLAN PRADHAN NP [facility] [address] 08/23/2024 10:50:36 08/24/2024 10:28:22 Asthenia 80841507 R53.1 Acute hypo xemic respiratory failure 877740963 J96.01 Chronic ob structive pulmonary disease 71543391 J41.1 Pneumonia 073888478 J18. 9 Diastolic heart failure 874051278 I50.33 Pleural effusion 9151189 8 J90 Chronic ki dney disease stage 3 324071745 N18.30 Diabetes mellitus 795272 09 E11.9 Essential hypertension 84431283 I10 Hyperlipidemia 09018785 E78.49 Hypothyroidism 54120743 E03.8 Gastroesop hageal reflux disease without esophagitis 606135299 K21.9 Anxiety 53379743 F41.9 Chronic pain syndrome 37 8735835 G89.4 Obstructiv e sleep apnea syndrome 46409803 G47.33 Open wound 011678112 T14 .8XXA Constipation 93591845 K5 9.00 [id number] ALLAN PRADHAN NP [facility] [address] [address] 09/01/2024 12:36:05 09/02/2024 11:15:18 Asthenia 36726521 R53.1 Acute hypo xemic respiratory failure 456975995 J96.01 Chronic ob structive pulmonary disease 32760242 J41.1 Pneumonia 056499419 J18. 9 Diastolic heart failure 771971845 I50.33 Pleural effusion 6067326 8 J90 Chronic ki dney disease stage 3 659941115 N18.30 Diabetes mellitus 963447 09 E11.9 Essential hypertension 17879536 I10 Hyperlipidemia 32463790 E78.49 Hypothyroidism 61216034 E03.8 Gastroesop hageal reflux disease without esophagitis 080993832 K21.9 Anxiety 46101339 F41.9 Chronic pain syndrome 37 7847761 G89.4 Obstructiv e sleep apnea syndrome 50604349 G47.33 Open wound 519245640 T14 .8XXA Constipation 96475644 K5 9.00 [id number] ALLAN PRADHAN NP [facility] [address] [address] 09/06/2024 14:01:29 09/07/2024 10:12:43 Asthenia 91122084 R53.1 Acute hypo xemic respiratory failure 830497633 J96.01 Chronic ob structive pulmonary disease 21981602 J41.1 Pneumonia 914146209 J18. 9 Diastolic heart failure 316148776 I50.33 Pleural effusion 7074202 8 J90 Chronic ki dney disease stage 3 863954334 N18.30 Diabetes mellitus 622715 09 E11.9 Essential hypertension 72148797 I10 Hyperlipidemia 61139778 E78.49 Hypothyroidism 60679071 E03.8 Gastroesop hageal reflux disease without esophagitis 168333903 K21.9 Anxiety 55371759 F41.9 Chronic pain syndrome 37 5311015 G89.4 Obstructiv e sleep apnea syndrome 28780736 G47.33 Open wound 377463053 T14 .8XXA Constipation 25863630 K5 9.00 [id number] ALLAN PRADHAN NP [address] [address] 09/08/2024 13:47:32 09/09/2024 11:13:19 Constipation 47864712 K59.00 Asthenia 38381544 R53.1 Open wound 048383809 T14 .8XXA Acute hypo xemic respiratory failure 726323970 J96.01 Chronic ob structive pulmonary disease 32085937 J41.1 Pneumonia 762766013 J18. 9 Diastolic heart failure 645072062 I50.33 Pleural effusion 7755291 8 J90 Chronic ki dney disease stage 3 521253976 N18.30 Diabetes mellitus 764985 09 E11.9 Essential hypertension 62124369 I10 Hyperlipidemia 39274710 E78.49 Hypothyroidism 17154634 E03.8 Gastroesop hageal reflux disease without esophagitis 120683627 K21.9 Anxiety 02491047 F41.9 Chronic pain syndrome 37 9268238 G89.4 Obstructiv e sleep apnea syndrome 69098697 G47.33 Health Concerns Section Related Observation LastModified by Organization Detai ls LastModified Time None Recorded Concern Status LastModified by Organization Details LastModified Time None Recorded Payers Encounter Date Sequence Insurance Name Policy Number Policy Tidwell Covered Member ID Tidwell Member ID Guarantor Name 09/08/2024 1 [place] [employer] [employer] Radhika Vaca [id number] Radhika Vaca 09/08/2024 2 [place] [facility]aca [id number] Radhika Vaca Notes Date Note Type Note Provider Name and Address Organization Details Recorded Time 09/08/2024 text/html Radhika is seen today for an acute visit. She is a 78 yo lady, admitted to [facility] 08/09/24 from [facility] for continued care and rehab after a a brief hosp. due to resp. failure (COPD, PNA, CHF) and MARJORIE on CKD (cardiorenal syndrome). Also developed a sacral wound during admission. So far while here, Radhika has been doing well. Working with rehab, now up ambulating in the halls.VSS, BP variable at times but tends to run on the higher side.BS decent control, 100s-200s.No recent labs.Weights requested daily, 218 lbs the past 2 days, about 8 lbs. higher than earlier.Seen earlier in the week, concerned with worsening constipation and abdominal distention. Fleets and Mag Citrate ordered in addition to daily laxatives, now moving bowels well. Per staff passed multiple XXL stools. Upon exam, Radhika is in bed napping. Easily arousable, belly feeling better, closer to baseline. She says she has been moving her bowels much better lately, and continues with the daily laxatives. No other complaints today. SMALL: mod. fall risk PMH: anxiety, CKD3, COPD, chronic pain, DM, CHF, dysphagia, HTN, HLD, hypothyroid, LBBB, morbid obesity, pernicious anemia, TEZ, chronic O2 use.Full code ALLAN PRADHAN NP [address] [facility], [address], [place], [address], [facility] - [employer] 09/08/2024 13:56:51 OBGyn Episode No OBEpisode recorded.
--- OUTSIDE RECORDS SUMMARY | 2024-10-27 07:54 | XMS_ITS | Data Portability ---
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 Name Role Phone VALARIE JORDAN - 2ND FLOOR OTHER SHOBHA SMITH Primary Care Provider [phone] Assessment Encounter Date Assessment Date Assessment LastModified by Organization Details LastModified Time 09/27/2024 09/27/2024 Spent 30 reviewing records, seeing pt, consulting with staff and documenting [email or web address] Not available 09/28/2024 02:15:24 Plan of Treatment Reminders Order Date Submit [...] Modified By Organization Details Last Modified Time 09/06/2024 [id number] medicines to avoid with kidney disease: care instructions [email or web address] Not available 09/06/2024 14:42:44 09/08/2024 [id number] medicines to avoid with kidney disease: care instructions [email or web address] Not available 09/08/2024 13:56:49 Reason for Referral None Reported. Problems Name Problem SNOMED Code Status Onset Date Resolution Date Notes Provider Name and Address Organization Details Recorded Time Acute hypoxemic respirator y failure 160254418 Active 2023 ALLAN PRADHAN NP [address] [facility], [address], [place], [address], [email or web address] 4 10:51:05 Pneumonia 934422861 Active 2023 ALLAN PRADHAN NP [address] [facility], [address], [place], [address], [place] [facility] 4 10:51:21 Pleural effusion 28180704 Active 2023 ALLAN PRADHAN NP [address], [address], [place], [address], [facility] 4 10:51:43 Gastroesop hageal reflux disease without esophagiti s 742539915 Active 2023 ALLAN PRADHAN NP [address], [address], [place], [address], [facility] 4 10:53:46 Anxiety 45776142 Active 2023 ALLAN PRADHAN NP [address], [address], [place], [address], [facility] 4 11:00:09 Chronic kidney disease stage 3 305549559 Active 2023 ALLAN PRADHAN NP [address], [address], [place], [address], [facility] 4 11:21:29 Chronic pain syndrome 626467289 Active 2023 ALLAN PRADHAN NP [address], [address], [place], [address], [facility] 4 11:21:39 Acute nontraumat ic kidney injury 8787348762436 03 Active 2023 ALLAN PRADHAN NP [address], [address], [place], [address], [facility] 4 11:23:16 Left bundle branch block 12792127 Active 2023 ALLAN PRADHAN NP [address], [address], [place], [address], [facility] 4 11:23:30 Pernicious anemia 33142246 Active 2023 ALLAN PRADHAN NP [address], [address], [place], [address], [facility] 4 11:23:46 Obstructiv e sleep apnea syndrome 88564061 Active 2023 ALLAN PRADHAN NP [address], [address], [place], [address], [facility] 4 11:47:23 Open wound 854882628 Active 2023 sacral ALLAN PRADHAN NP [address], [address], [place], [address], [facility] 4 12:05:33 Asthenia 38714065 Active 2023 ALLAN PRADHAN NP [address], [address], [place] [address], [facility] 4 12:10:47 Diastolic heart failure 336888801 Active 2018 Hal Cole MD [address], [address], [place], [address], [facility] 9 14:45:31 Dysphagia 24736927 Active 2018 Hal Cole MD [address], [address], [place], [address], [facility] 9 14:45:39 Chronic obstructiv e pulmonary disease 23778248 Active 2018 Hal Cole MD [address], [address], [place], [address], [facility] 9 14:45:48 Essential hypertensi on 37490649 Active 2018 Hal Cloe MD [address], [address], [place], [address], [facility] 9 14:45:53 Diabetes mellitus 96839512 Active 2018 Hal Cole MD [address], [address], [place], [address], [facility] 9 14:45:57 Hyperlipid emia 54808000 Active 2018 Hal Cole MD [address], [address], [place], [address], [facility] 9 14:46:04 Obesity 066668318 Active 2018 Hal Cole MD [address], [address], [place], [address], [employer] [email or web address] 9 14:46:12 Hypothyroi dism 85535008 Active 2018 Hal Cole MD [address] [facility], [facility] [address], [place], [address], [email or web address] 9 14:50:40 Problem Notes None recorded. Medical Equipment None Reported. Allergies Allergen ID Allergen Name Allergen Category Reaction Reaction Severity Criticality Documentation Date Start Date Code Code System Note Provider Name and Address Organization Details Recorded Time [id number] 2824e ibuprofen medicatio n Not available Not available Not available 08/11/2024 5640 RxNorm swell ing Not Available Not Available Not Available [id number] 2824e codeine medicatio n Not available Not [...] Address Organization Details Last Updated DateTime 4 61 /min 22 /min 97.8 [degF] 99 % 99 % 151 mm[Hg] 86 mm[Hg] ALLAN PRADHAN NP [address] [facility], [facility] [address], [place], [address], [employer] 4 14:03:04 Date Recorded Heart rate Respiratory rate Body temperature Oxygen saturation Oxygen saturation in Arterial blood by Pulse oximetry Systolic blood pressure Diastolic blood pressure Provider Name and Address Organization Details Last Updated DateTime 4 74 /min 18 /min 99 [degF] 98 % 98 % 130 mm[Hg] 74 mm[Hg] ALLAN PRADHAN NP [address] [facility], [facility] [address], [place], [address], [employer] 4 13:48:17 Date Recorded Body weight Heart rate Respiratory rate Body temperature Oxygen saturation Oxygen saturation in Arterial blood by Pulse oximetry Systolic blood pressure Diastolic blood pressure Provider Name and Address Organization Details Last Updated DateTime 4 15416.1 4 g 69 /min 16 /min 98.3 [degF] 97 % 97 % 134 mm[Hg] 64 mm[Hg] Eloina Odom NP [address] [facility] [address], [place], [address], [employer] 4 09:02:44 Date Recorded Body height Body mass index (BMI) Body weight Heart rate Respiratory rate Body temperature Oxygen saturation Oxygen saturation in Arterial blood by Pulse oximetry Inhaled oxygen flow rate Systolic blood pressure Diastolic blood pressure Provider Name and Address Organization Details Last Updated DateTime 4 167.64 cm 32.9 kg/m2 95170.1 3 g 72 /min 18 /min 97.5 [degF] 97 % 97 % 2 L/min 129 mm[Hg] 76 mm[Hg] Carlee Amezcua MD [address], [place], [address], [facility] 4 22:10:41 Date Recorded Body height Body weight Body mass index (BMI) Heart rate Respiratory rate Body temperature Oxygen saturation Oxygen saturation in Arterial blood by Pulse oximetry Systolic blood pressure Diastolic blood pressure Provider Name and Address Organization Details Last Updated DateTime 4 167.64 cm 79234.2 5 g 32.8 kg/m2 74 /min 16 /min 97.9 [degF] 95 % 95 % 133 mm[Hg] 72 mm[Hg] Eloina Odom NP [address] [place] [address], [address] , [employer] 4 08:16:49 Social History Question Answer Notes LastModified by Organizat ion Details LastModified Time Tobacco Smoking Status [facility]oker Not Available [facility] 08/21/2020 03:13:21 Do You Have An Advance Directive? No Full Code [id number] Information not available 08/21/2020 What Is Your Level Of Alcohol Consumption? None [email or web address] Information not available 08/11/2024 What Is Your Code Status? Full Code Information not available 09/01/2024 Do You Have A Medical Power Of Park Superintendent? Yes Has HCP Information not available 08/11/2024 What Was The Date Of Your Most Recent Tobacco Screening? 08/11/2024 [email or web address] Information not available 08/11/2024 Do You Have An Out Of Hospital DNR? Yes [email or web address] Information not available 09/01/2024 How Much Tobacco Do You Smoke? 1.5 PPD [id number] Information not available 08/21/2020 Do You Use Any Illicit Or Recreational Drugs? No [email or web address] Information not available 08/11/2024 Has Tobacco Cessation Counseling Been Provided? No [email or web address] Information not available 08/11/2024 How Many Years Have You Smoked Tobacco? 25 [id number] Information not available 08/21/2020 Do You Or Have You Ever Used Any Other Forms Of Tobacco Or Nicotine? No [email or web address] Information not available 08/11/2024 Sex: Unknown Functional Status None recorded. Mental Status None recorded. Family History Relationship Description Onset Age of this Age Resolved Age Notes LastModified by Organization Details LastModified Time Father Disorder of cardiovascul ar system [email or web address] Not available 2023 11:24:15 Medical History No medical history recorded. Gynecological HistoryNo gynecological history recorded. Obstetrics History GPAL:G 0 P 0 0 0 0 Immunizations Vaccine Type Date Status Note Provider Nam e and Address Organization Details Recorded Time influenza, unspecified formulation 11/10/2021 completed Jessica gonsalez [facility] 08/10/2024 14:21:03 Past Encounters Encounter ID Performer Location Encounter Start Date Encounter Closed Date Diagnosis/Indication Diagnosis SNOMED-CT Code Diagnosis ICD10 Code [id number] [facility] [address] [place] [address] [place] [address] 06/01/2019 14:38:26 06/08/2019 15:41:33 Acute hypoxemic respiratory failure 003240998 J96.01 Diastolic heart failure 576641334 I50.33 Dysphagia 76624809 R13.1 2 Chronic ob structive pulmonary disease 46670673 J41.1 Essential hypertension 20005069 I10 Asthenia 56605915 R53.1 Diabetes mellitus 608355 09 E11.9 Hypothyroidism 40860115 E03.8 Hyperlipidemia 66263136 E78.49 Obesity 004129887 E66.01 [id number] [facility] [address] [place] [address] [place] [address] 06/06/2019 11:35:48 06/08/2019 16:08:53 Hypoxia 977022260 R09.02 Acute kidney injury 1466 9001 N17.9 Acute hypo xemic respiratory failure 617333575 J96.01 Diastolic heart failure 150524034 I50.33 Dysphagia 89865216 R13.1 2 Chronic ob structive pulmonary disease 75878472 J41.1 [id number] ALLAN PRADHAN NP [facility] [address] 08/11/2024 10:50:24 08/15/2024 09:32:52 Acute hypoxemic respiratory failure 587267360 J96.01 Chronic ob structive pulmonary disease 05699051 J41.1 Pneumonia 041421738 J18. 9 Diastolic heart failure 985709078 I50.33 Pleural effusion 2162555 8 J90 Diabetes mellitus 610179 09 E11.9 Essential hypertension 72025646 I10 Hyperlipidemia 17156016 E78.49 Hypothyroidism 12293592 E03.8 Gastroesop hageal reflux disease without esophagitis 917146269 K21.9 Anxiety 53478229 F41.9 Chronic ki dney disease stage 3 830415566 N18.30 Chronic pain syndrome 37 2602278 G89.4 Obstructiv e sleep apnea syndrome 79314822 G47.33 Asthenia 91673703 R53.1 Open wound 187425662 T14 .8XXA [id number] Hal Cole MD [facility] [address] [address] 08/15/2024 12:44:18 08/17/2024 11:09:33 Asthenia 84653407 R53.1 Acute hypo xemic respiratory failure 582630326 J96.01 Chronic ob structive pulmonary disease 87309443 J44.1 Pneumonia 478586025 J15. 8 Diastolic heart failure 368333667 I50.33 Diabetes mellitus 846540 09 E11.9 Hyperlipidemia 70251327 E78.49 Hypothyroidism 57301561 E03.8 Gastroesop hageal reflux disease without esophagitis 932644699 K21.9 Acute kidney injury 1466 9001 N17.8 [id number] ALLAN PRADHAN NP [facility] [address] 08/16/2024 11:32:50 08/24/2024 10:16:43 Asthenia 92256164 R53.1 Acute hypo xemic respiratory failure 328539984 J96.01 Chronic ob structive pulmonary disease 05723399 J41.1 Pneumonia 411496647 J18. 9 Diastolic heart failure 563792842 I50.33 Pleural effusion 2935369 8 J90 Chronic ki dney disease stage 3 711856598 N18.30 Diabetes mellitus 728711 09 E11.9 Essential hypertension 32137417 I10 Hyperlipidemia 17841471 E78.49 Hypothyroidism 27913662 E03.8 Gastroesop hageal reflux disease without esophagitis 428245648 K21.9 Anxiety 15919068 F41.9 Chronic pain syndrome 37 0114356 G89.4 Obstructiv e sleep apnea syndrome 54488658 G47.33 Open wound 344630002 T14 .8XXA [id number] ALLAN PRADHAN NP [facility] [address] [address] 08/23/2024 10:50:36 08/24/2024 10:28:22 Asthenia 09654448 R53.1 Acute hypo xemic respiratory failure 297756288 J96.01 Chronic ob structive pulmonary disease 34161937 J41.1 Pneumonia 841795941 J18. 9 Diastolic heart failure 142131590 I50.33 Pleural effusion 9578248 8 J90 Chronic ki dney disease stage 3 598435029 N18.30 Diabetes mellitus 241806 09 E11.9 Essential hypertension 43493462 I10 Hyperlipidemia 87996833 E78.49 Hypothyroidism 40006955 E03.8 Gastroesop hageal reflux disease without esophagitis 813318765 K21.9 Anxiety 36778109 F41.9 Chronic pain syndrome 37 4914056 G89.4 Obstructiv e sleep apnea syndrome 94423537 G47.33 Open wound 194142942 T14 .8XXA Constipation 58507612 K5 9.00 [id number] ALLAN PRADHAN NP [facility] [address] 09/01/2024 12:36:05 09/02/2024 11:15:18 Asthenia 62998825 R53.1 Acute hypo xemic respiratory failure 278985856 J96.01 Chronic ob structive pulmonary disease 22758583 J41.1 Pneumonia 534354500 J18. 9 Diastolic heart failure 940920022 I50.33 Pleural effusion 0340700 8 J90 Chronic ki dney disease stage 3 866474067 N18.30 Diabetes mellitus 421742 09 E11.9 Essential hypertension 71248444 I10 Hyperlipidemia 77774211 E78.49 Hypothyroidism 88128324 E03.8 Gastroesop hageal reflux disease without esophagitis 986753757 K21.9 Anxiety 47106083 F41.9 Chronic pain syndrome 37 1414931 G89.4 Obstructiv e sleep apnea syndrome 59270338 G47.33 Open wound 958298197 T14 .8XXA Constipation 24393138 K5 9.00 [id number] ALLAN PRADHAN NP [facility] [address] 09/06/2024 14:01:29 09/07/2024 10:12:43 Asthenia 24398970 R53.1 Acute hypo xemic respiratory failure 300295503 J96.01 Chronic ob structive pulmonary disease 37311468 J41.1 Pneumonia 060280449 J18. 9 Diastolic heart failure 677367218 I50.33 Pleural effusion 6611982 8 J90 Chronic ki dney disease stage 3 961998767 N18.30 Diabetes mellitus 622191 09 E11.9 Essential hypertension 88105277 I10 Hyperlipidemia 68964189 E78.49 Hypothyroidism 25938251 E03.8 Gastroesop hageal reflux disease without esophagitis 263309053 K21.9 Anxiety 80947755 F41.9 Chronic pain syndrome 37 8636332 G89.4 Obstructiv e sleep apnea syndrome 59936148 G47.33 Open wound 577442716 T14 .8XXA Constipation 90500984 K5 9.00 [id number] [facility] [address] 09/08/2024 13:47:32 09/09/2024 11:13:19 Constipation 85692223 K59.00 Asthenia 04437518 R53.1 Open wound 259398499 T14 .8XXA Acute hypo xemic respiratory failure 532401931 J96.01 Chronic ob structive pulmonary disease 56496747 J41.1 Pneumonia 982018785 J18. 9 Diastolic heart failure 083924115 I50.33 Pleural effusion 1204154 8 J90 Chronic ki dney disease stage 3 412965007 N18.30 Diabetes mellitus 326392 09 E11.9 Essential hypertension 90926652 I10 Hyperlipidemia 48263293 E78.49 Hypothyroidism 98224206 E03.8 Gastroesop hageal reflux disease without esophagitis 929935620 K21.9 Anxiety 08000895 F41.9 Chronic pain syndrome 37 6345073 G89.4 Obstructiv e sleep apnea syndrome 46539174 G47.33 [id number] Eloina Odom NP [address] [address] 09/14/2024 09:01:39 09/15/2024 09:07:05 Constipation 59627440 K59.00 Asthenia 69993676 R53.1 Open wound 758485425 T14 .8XXA Acute hypo xemic respiratory failure 250986313 J96.01 Chronic ob structive pulmonary disease 17104872 J41.1 Pneumonia 666391483 J18. 9 Diastolic heart failure 844883391 I50.33 Pleural effusion 9081920 8 J90 Chronic ki dney disease stage 3 523964608 N18.30 Diabetes mellitus 964459 09 E11.9 Essential hypertension 72952444 I10 Hyperlipidemia 02721141 E78.49 Hypothyroidism 47781275 E03.8 Gastroesop hageal reflux disease without esophagitis 512153500 K21.9 Anxiety 56920606 F41.9 Chronic pain syndrome 37 6928008 G89.4 Obstructiv e sleep apnea syndrome 15420494 G47.33 [id number] Carlee Amezcua MD [address] [address] 09/27/2024 20:05:35 09/28/2024 10:42:39 Diastolic heart failure 894117908 I50.33 Asthenia 02446239 R53.1 Open wound 897319987 T14 .8XXA Acute hypo xemic respiratory failure 629509997 J96.01 Chronic ob structive pulmonary disease 62583134 J41.1 Pleural effusion 8801612 8 J90 Chronic ki dney disease stage 3 940930485 N18.32 Diabetes mellitus 686895 09 E11.9 Essential hypertension 74719390 I10 Hyperlipidemia 20837334 E78.49 Hypothyroidism 78109140 E03.8 Gastroesop hageal reflux disease without esophagitis 286702554 K21.9 Pneumonia 052233430 J18. 9 Anxiety 40687106 F41.1 Chronic pain syndrome 37 7097893 G89.4 Obstructiv e sleep apnea syndrome 78550849 G47.33 [id number] Eloina Odom NP [address] [address] 09/30/2024 08:15:34 10/03/2024 13:20:59 Diastolic heart failure 329829792 I50.33 Asthenia 27900044 R53.1 Chronic ob structive pulmonary disease 11739587 J41.1 Pleural effusion 2248157 8 J90 Acute hypo xemic respiratory failure 638025998 J96.01 Chronic ki dney disease stage 3 424454284 N18.32 Diabetes mellitus 190933 09 E11.9 Essential hypertension 88123094 I10 Hyperlipidemia 35653395 E78.49 Open wound 662879482 T14 .8XXA Hypothyroidism 02644066 E03.8 Gastroesop hageal reflux disease without esophagitis 345988747 K21.9 Pneumonia 838561222 J18. 9 Anxiety 96865122 F41.1 Chronic pain syndrome 37 6088391 G89.4 Obstructiv e sleep apnea syndrome 13715139 G47.33 Health Concerns Section Related Observation LastModified by Organization Detai ls LastModified Time None Recorded Concern Status LastModified by Organization Details LastModified Time None Recorded Advance Directives Directive N: Full Code Payers Encounter Date Sequence Insurance Name Policy Number Policy Tidwell Covered Member ID Tidwell Member ID Guarantor Name 09/06/2024 1 [place] [employer] Radhika Vaca [id number] Radhika Vaca 09/06/2024 2 [place] [facility] Radhika Vaca [id number] Radhika Vaca 09/08/2024 1 [place] [facility] Radhika Vaca [id number] Radhika Mirelesin 09/08/2024 2 [place] [facility] Radhika Vaca [id number] Radhika Vaca 09/14/2024 1 [place] [facility] Radhika Mirelesin [id number] Radhika Patein 09/14/2024 2 [place] [facility] Radhika Vaca [id number] Radhika Mirelesin 09/27/2024 1 [place] [facility] Radhika Mirelesin [id number] Radhika Mirelesin 09/27/2024 2 [place] [facility] Radhika Vaca [id number] Radhika Mirelesin 09/30/2024 1 [place] [facility] Radhika Mirelesin [id number] Radhika Patein 09/30/2024 2 [place] [facility] Radhika Vaca [id number] Radhika Patesukhi Notes Date Note Type Note Provider Name and Address Organization Details Recorded Time 09/06/2024 text/html Radhika is seen today for a routine, 30 day visit. She is a 78 yo lady, admitted to [facility] 08/09/24 from [facility] for continued care and rehab after a [...] decent control, 100s-200s.No recent labs.Weights requested daily, last weight documented from 08/25. Laxatives increased last week due to constipation, apparently has not moved her bowels since 08/31. BM documentation reviewed, appears she had a large BM on 08/29 and 08/30, and a medium on 08/31. Otherwise, no BMs documented. Does not appear bowel protocol was implemented. Belly now very distended. Passing gas, but not BM.MAR reviewed, does not appear the senna- s was started last week as ordered. Referred to [facility] re: sacral area breakdown, checked EMR again, and still no notes scanned into chart yet. Order in place for triad cream and pressure relief to sacral area. Currently with a border foam in place which she prefers - pads the area and much more comfortable with the dressing in place. Upon exam, Radhika is resting in bed, arousable, pleasant, but sleepy. No c/o other than bowel issues. Still eating, no N/V, no abd. pain or stomach upset. SMALL: mod. fall risk PMH: anxiety, CKD3, COPD, chronic pain, DM, CHF, dysphagia, HTN, HLD, hypothyroid, LBBB, morbid obesity, pernicious anemia, TEZ, chronic O2 use.Full code ALLAN PRADHAN NP [address] [facility], [address], [place], [address], [facility] 09/06/2024 15:00:32 09/08/2024 text/html Radhika is seen today for an acute visit. She is a 78 yo lady, admitted to [facility] 08/09/24 from [facility] for continued care and rehab after a [...] anemia, TEZ, chronic O2 use.Full code ALLAN PRADHAN, [facility] [address] [facility], [address], [place], [address], [employer] 09/08/2024 13:56:51 09/14/2024 text/html Radhika is seen today for an acute rounding visit. PMH: anxiety, CKD3, COPD, chronic pain, DM, CHF, dysphagia, HTN, HLD, hypothyroid, LBBB, morbid obesity, pernicious anemia, ETZ, chronic O2 use.Full code She is a 78 yo lady, admitted to [facility] 08/09/24 from [facility] for continued care and rehab after a a brief hosp. due to resp. failure (COPD, PNA, CHF) and MARJORIE on CKD (cardiorenal syndrome). Also developed a sacral wound during admission. While here at [facility]:Radhika is doing well and working with rehab daily. During the last two sessions she has refused to ambulate due to diarrhea and did leg excercises and strengthening in bed with therapy. For the last few days she has had large hard stools with enema, stool softners and laxatives ordered and eventually had large amount of liquid diarrhea and feels she beyond cleaned out . She is agreeable to a stool softer and miralax daily and will see how that works now the diarrhea has stopped. She states she will wear a brief and ambulate with therapy today. She reports she would like to go home before her birthday on [birth year] and wants to speak with social work about this to create a plan. she is eating and drinking without nausea or vomiting. On exam, She is seen in bed in the early am on 2 l o2 at baseline. Her abd is distended and large. She states this is baseline and feels normal at this time and is much better. She appears euvolemic today. SMALL: mod. fall risk Eloina Odom, [facility] [address] [facility], [address], [place], [address], [employer] 09/14/2024 09:44:48 09/27/2024 text/html This is a 79 yo woman who I am seeing today for a routine MD 60 day reeval rounding visit.She was admitted on 08/09 after a hospitalization for acute on chronic hypoxic resp failure due to a combination of PNA, COPD and CHF.She initially needed BiPAP support, but was quickly weaned.Responded well to multiple interventions including thoracentesis.She also had MARJORIE thought to be due to cardiorenal syndrome which resolved with fluid management.She also developed a sacral wound and was followed by wound care for this.She improved and was transferred here for STR. She has made slow progress, but feels she is now at the point she was prior to this illness. She still needs help getting in and out of bed, but is ambulating with walker independently once up. Her home is handicapped accessible and her son is home almost all the time to help with transfers. She also has a lift chair she uses during the day.She tells me she feels like her breathing is back to baseline.She tells me the sacral ulcer is completely healed.She would love to go home the end of this week.Of note, PT notes say she still has compromised balance and coordination. Her PMH includes HTN, CKD stage 3B, COPD on home O2, CHF-right sided, AODM, chronic pain, dysphagia, HLD, hypothyroidism, morbid obesity, pernicious anemia, LBBB, and TEZ. Carlee Amezcua MD [address] [place] [address], [address], [place], [address], [facility] [employer] 09/28/2024 02:15:34 09/30/2024 text/html Pt is a 79 yo [...] transferred here for STR. Since [facility]: She had a sacral wound treated with [...] with o2. She is aware social worker aide is working on a plan and she will follow with pcp outpt. Breathing non labored. Eloina Odom, [facility] [address] [facility], [address], [place], [place], [address], [facility] - [email or web address] 09/30/2024 08:56:26 OBGyn Episode No OBEpisode recorded.
--- OUTSIDE RECORDS SUMMARY | 2024-10-27 07:55 | XMS_ITS | Continuity of Care Document ---
Author Organization [facility], [facility] Address [address] [place] [address] Care Team Providers Care Electric Repair Supervisor Name Role Phone VALARIE JORDAN - 2ND FLOOR OTHER SHOBHA SMITH Primary Care Provider [phone] Assessment No assessment recorded. Plan of Treatment Reminders Order Date Submit Date Provider Last Modified By Organization Details Last Modified Time Details Appointments None recorded. Lab None recorded. Referral None recorded. Procedures None recorded. Surgeries None recorded. Imaging None recorded. Medication Orders oxycodone 5 mg tablet 2023 [facility] , [address] [place] [address], [address], 21:36:35 Ativan 0.5 mg tablet 2023 [facility] , [address] [place] [address], [address], 22:06:47 Patient TargetsNo targets recorded. Patient Instructions Encounter Date Encounter Id Patient Instructions Last Modified By Organization Details Last Modified Time 08/11/2024 [id number] medicines to avoid with kidney disease: care instructions [email or web address] Not available 08/11/2024 12:23:41 Reason for Referral None Reported. Problems Name Problem SNOMED Code Status Onset Date Resolution Date Notes Provider Name and Address Organization Details Recorded Time Acute hypoxemic respirator y failure 030698779 Active 2023 ALLAN PRADHAN NP [address] [facility], [address], [place], [address] , [facility] 4 10:51:05 Pneumonia 828088918 Active 2023 ALLAN PRADHAN NP [address], [address], [place], [address], [facility] 4 10:51:21 Pleural effusion 84915348 Active 2023 ALLAN PRADHAN NP [address], [address], [place], [address], [facility] 4 10:51:43 Gastroesop hageal reflux disease without esophagiti s 447357197 Active 2023 ALLAN PRADHAN NP [address], [address], [place], [address], [facility] 4 10:53:46 Anxiety 99779237 Active 2023 ALLAN PRADHAN NP [address], [address], [place], [address], [facility] 4 11:00:09 Chronic kidney disease stage 3 416846082 Active 2023 ALLAN PRADHAN NP [address], [address], [place], [address], [facility] 4 11:21:29 Chronic pain syndrome 043487650 Active 2023 ALLAN PRADHAN NP [address], [address], [place], [address], [facility] 4 11:21:39 Acute nontraumat ic kidney injury 9124706470800 03 Active 2023 ALLAN PRADHAN NP [address], [address], [place], [address], [facility] 4 11:23:16 Left bundle branch block 15083621 Active 2023 ALLAN PRADHAN NP [address], [address], [place], [address], [facility] 4 11:23:30 Pernicious anemia 59312163 Active 2023 ALLAN PRADHAN NP [address], [address], [place], [address], [facility] 4 11:23:46 Obstructiv e sleep apnea syndrome 89259779 Active 2023 ALLAN PRADHAN NP [address], [address], [place], [address], [facility] 4 11:47:23 Open wound 785068678 Active 2023 [facility] ALLAN PRADHAN NP [address], [address], [place], [address], [facility] 4 12:05:33 Asthenia 49551694 Active 2023 ALLAN PRADHAN NP [address], [address], [place], [address], [facility] 4 12:10:47 Diastolic heart failure 054918998 Active 2018 Hal Cole MD [address], [address], [place], [address], [facility] 9 14:45:31 Dysphagia 54901222 Active 2018 Hal Cole MD [address], [place], [address], [facility] 9 14:45:39 Chronic obstructiv e pulmonary disease 97921808 Active 2018 Hal Cole MD [address] [facility], [address], [place], [address], [facility] 9 14:45:48 Essential hypertensi on 50171881 Active 2018 Hal Cole MD [address] [facility], [address], [place], [address], [facility] 9 14:45:53 Diabetes mellitus 76569161 Active 2018 Hal Cole MD [address], [address], [place], [address], [facility] 9 14:45:57 Hyperlipid emia 94094232 Active 2018 Hal Cole MD [address], [address], [place], [address], [facility] 9 14:46:04 Obesity 991653535 Active 2018 Hal Cole MD [address] [facility], [address], [place], [address], [facility] [employer] 9 14:46:12 Hypothyroi dism 69290835 Active 2018 Hal Cole MD [address] [facility], [address], [place], [address], [facility] 9 14:50:40 Problem Notes None recorded. Medical Equipment None Reported. Allergies Allergen ID Allergen Name Allergen Category Reaction Reaction Severity Criticality Documentation Date Start Date Code Code System Note Provider Name and Address Organization Details Recorded Time [id number] 2824e ibuprofen medicatio n Not available Not available Not available 08/11/2024 5640 RxNorm swell ing Not Available Not Available Not Available [id number] 3029057n3 2824e codeine medicatio n Not available Not [...] Address Organization Details Last Updated DateTime 4 72 /min 18 /min 97.5 [degF] 93 % 93 % 2 L/min 141 mm[Hg] 57 mm[Hg] ALLAN PRADHAN NP [address] [facility], [address], [place], [address], [facility] 4 11:47:04 Social History Question Answer Notes LastModified by Organizat ion Details LastModified Time Tobacco Smoking Status Former Smoker Not Available [facility] 08/21/2020 03:13:21 Do You Have An Advance Directive? No Full Code [id number] Information not available 08/21/2020 What Is Your Level Of Alcohol Consumption? None [email or web address] Information not available 08/11/2024 What Is Your Code Status? Full Code [email or web address] Information not available 09/01/2024 Do You Have A Medical Power Of Special Education Administrator? Yes Has HCP [email or web address] Information not available 08/11/2024 What Was The Date Of Your Most Recent Tobacco Screening? 08/11/2024 Information not available 08/11/2024 Do You Have An Out Of Hospital DNR? Yes [email or web address] Information not available 09/01/2024 How Much Tobacco Do You Smoke? 1.5 PPD [id number] Information not available 08/21/2020 Do You Use Any Illicit Or Recreational Drugs? No [email or web address] Information not available 08/11/2024 Has Tobacco Cessation Counseling Been Provided? No [email or web address] Information not available 08/11/2024 How Many Years Have You Smoked Tobacco? 25 [id number] Information not available 08/21/2020 Do You Or Have You Ever Used Any Other Forms Of Tobacco Or Nicotine? No [email or web address] Information not available 08/11/2024 Sex: Unknown Functional Status None recorded. Mental Status None recorded. Family History Relationship Description Onset Age of this Age Resolved Age Notes LastModified by Organization Details LastModified Time Father Disorder of cardiovascul ar system [email or web address] Not available 2023 11:24:15 Medical History No medical history recorded. Gynecological HistoryNo gynecological history recorded. Obstetrics History GPAL:G 0 P 0 0 0 0 Immunizations Vaccine Type Date Status Note Provider Nam e and Address Organization Details Recorded Time influenza, unspecified formulation 11/10/2021 completed Jessica gonsalez [place] [facility] 08/10/2024 14:21:03 Past Encounters Encounter ID Performer Location Encounter Start Date Encounter Closed Date Diagnosis/Indication Diagnosis SNOMED-CT Code Diagnosis ICD10 Code [id number] ALLAN PRADHAN NP [address] [address] 08/11/2024 10:50:24 08/15/2024 09:32:52 Acute hypoxemic respiratory failure 863173313 J96.01 Chronic ob structive pulmonary disease 32265290 J41.1 Pneumonia 209430652 J18. 9 Diastolic heart failure 177455669 I50.33 Pleural effusion 4517122 8 J90 Diabetes mellitus 522402 09 E11.9 Essential hypertension 23108683 I10 Hyperlipidemia 52896076 E78.49 Hypothyroidism 61661603 E03.8 Gastroesop hageal reflux disease without esophagitis 833182539 K21.9 Anxiety 66270876 F41.9 Chronic ki dney disease stage 3 784598452 N18.30 Chronic pain syndrome 37 5625092 G89.4 Obstructiv e sleep apnea syndrome 28042762 G47.33 Asthenia 16008545 R53.1 Open wound 985804670 T14 .8XXA Health Concerns Section Related Observation LastModified by Organization Detai ls LastModified Time None Recorded Concern Status LastModified by Organization Details LastModified Time None Recorded Payers Encounter Date Sequence Insurance Name Policy Number Policy Tidwell Covered Member ID Tidwell Member ID Guarantor Name 08/11/2024 1 [place] [employer] Radhika Vaca [id number] Radhika Vaca 08/11/2024 2 [place] [facility] Radhika Vaca [id number] Radhika Vaca Notes Date Note Type Note Provider Name and Address Organization Details Recorded Time 08/11/2024 text/html Radhika is seen today for initial intake.She is a 78 yo lady, admitted to [facility] 08/09/24 from [facility] for continued care and rehab after a a brief hosp. due to resp. failure and MARJORIE on CHF. She presented to [facility] 08/03 with SOB x [address]. Place on Bipap in the ER, labs indicating MARJORIE on CKD. Sent to MICU for mgmt. It was felt her acute resp. failure was due to COPD exac. and acute on chronic CHF. Also dx'd with PNA and pleural effusion. Fortunately responded to interventions (IV lasix, bronchodilators, steroids, ceftriaxone, azithromycin, and thoracentesis). Antibiotics changed to Augmentin and doxycycline x 3 days to complete a 10 day course of tx. MARJORIE on CKD felt related to cardiorenal syndrome, also improved with tx. Other meds continued except gemfibrozil due to interaction with lipitor . Nystatin powder added to help with fungal infection. Also developed a sacral wound during admission, no treatment outlined on d/c summary. SMALL: mod. fall risk PMH: anxiety, CKD3, COPD, chronic pain, DM, CHF, dysphagia, HTN, HLD, hypothyroid, LBBB, morbid obesity, pernicious anemia, TEZ, chronic O2 use.Full code ALLAN PRADHAN NP [address] [place] [address], [address], [place], [address], [facility] 08/11/2024 12:32:53 OBGyn Episode No OBEpisode recorded.
--- OUTSIDE RECORDS SUMMARY | 2024-10-27 07:55 | XMS_ITS | Continuity of Care Document ---
Author Organization [facility], [facility] Address [address] [place] [address] Care Team Providers Care Salon Sales Consultant Name Role Phone VALARIE JORDAN - 2ND [...] Modified By Organization Details Last Modified Time 09/01/2024 [id number] medicines to avoid with kidney disease: care instructions [email or web address] Not available 09/01/2024 12:48:09 Reason for Referral None Reported. Problems Name Problem SNOMED Code Status Onset Date Resolution Date Notes Provider Name and Address Organization Details Recorded Time Acute hypoxemic respirator y failure 267528847 Active 2023 ALLAN PRADHAN NP [address] [facility], [facility] [address], [place], [address], [facility] 4 10:51:05 Pneumonia 837080607 Active 2023 ALLAN PRADHAN NP [address] [facility], [address], [place], [address], [facility] 4 10:51:21 Pleural effusion 72731133 Active 2023 ALLAN PRADHAN NP [address] [facility], [address], [place], [address], [facility] 4 10:51:43 Gastroesop hageal reflux disease without esophagiti s 482808782 Active 2023 ALLAN PRADHAN NP [address], [address], [place], [address], [facility] 4 10:53:46 Anxiety 72543085 Active 2023 ALLAN PRADHAN NP [address], [address], [place], [address], [facility] 4 11:00:09 Chronic kidney disease stage 3 396984826 Active 2023 ALLAN PRADHAN NP [address], [place], [address], [facility] 4 11:21:29 Chronic pain syndrome 841438838 Active 2023 ALLAN PRADHAN NP [address], [address], [place], [address], [facility] 4 11:21:39 Acute nontraumat ic kidney injury 8275683855999 03 Active 2023 ALLAN PRADHAN NP [address], [address], [place], [address], [facility] 4 11:23:16 Left bundle branch block 59439658 Active 2023 ALLAN PRADHAN NP [address], [address], [place], [address], [facility] 4 11:23:30 Pernicious anemia 20901153 Active 2023 ALLAN PRADHAN NP [address], [address], [place], [address], [facility] 4 11:23:46 Obstructiv e sleep apnea syndrome 72913693 Active 2023 ALLAN PRADHAN NP [address], [address], [place], [address], [facility] 4 11:47:23 Open wound 757807969 Active 2023 sacral ALLAN PRADHAN NP [address], [address], [place], [address], [facility] 4 12:05:33 Asthenia 37653271 Active 2023 ALLAN PRADHAN NP [address], [address], [place], [address], [facility] 4 12:10:47 Diastolic heart failure 156161407 Active 2018 Hal Cole MD [address], [address], [place], [address], [facility] 9 14:45:31 Dysphagia 41926394 Active 2018 Hal Cole MD [address], [address], [place], [address], [facility] 9 14:45:39 Chronic obstructiv e pulmonary disease 73944010 Active 2018 Hal Cole MD [address], [address], [place], [address], [facility] 9 14:45:48 Essential hypertensi on 45937428 Active 2018 Hal Cole MD [address], [address], [place], [address], [facility] 9 14:45:53 Diabetes mellitus 40151972 Active 2018 Hal Cole MD [address], [address], [place], [address], [facility] 9 14:45:57 Hyperlipid emia 91319340 Active 2018 Hal Cole MD [address], [place], [address], [facility] 9 14:46:04 Obesity 820512878 Active 2018 Hal Cole MD [address], [address], [place], [address], [facility] 9 14:46:12 Hypothyroi dism 29857361 Active 2018 Hal Cole MD [address], [address], [place], [address], [facility] 9 14:50:40 Problem Notes None recorded. Medical Equipment None Reported. Allergies Allergen ID Allergen Name Allergen Category Reaction Reaction Severity Criticality Documentation Date Start Date Code Code System Note Provider Name and Address Organization Details Recorded Time [id number] 8964983s3 2824e ibuprofen medicatio n Not available Not available Not available 08/11/2024 5640 RxNorm swell ing Not Available Not Available Not Available [id number] 295122703 6618935a0 2824e codeine medicatio n Not available Not [...] Updated DateTime 4 74 /min 18 /min 97 [degF] 98 % 98 % 124 mm[Hg] 76 mm[Hg] ALLAN PRADHAN NP [address] [facility], [address], [place], [address], [place] [facility] 4 12:36:46 Social History Question Answer Notes LastModified by Organizat ion Details LastModified Time Tobacco Smoking Status Former Smoker Not Available [facility] 08/21/2020 03:13:21 Do You Have An Advance Directive? No Full Code [id number] Information not available 08/21/2020 What Is Your Level Of Alcohol Consumption? None [email or web address] Information not available 08/11/2024 What Is Your Code Status? Full Code [email or web address] Information not available 09/01/2024 Do You Have A Medical Power Of Fire Suppression Captain? Yes Has HCP Information not available 08/11/2024 What Was The Date Of Your Most Recent Tobacco Screening? 08/11/2024 [email or web address] Information not available 08/11/2024 Do You Have An Out Of Hospital DNR? Yes [email or web address] Information not available 09/01/2024 How Much Tobacco Do You Smoke? 1.5 PPD [id number] Information not available 08/21/2020 Do You Use Any Illicit Or Recreational Drugs? No [email or web address] Information not available 08/11/2024 Has Tobacco Cessation Counseling Been Provided? No [email or web address] Information not available 08/11/2024 How Many Years Have You Smoked Tobacco? 25 [id number] Information not available 08/21/2020 Do You Or Have You Ever Used Any Other Forms Of Tobacco Or Nicotine? No [email or web address] Information not available 08/11/2024 Sex: Unknown Functional Status None recorded. Mental Status None recorded. Family History Relationship Description Onset Age of this Age Resolved Age Notes LastModified by Organization Details LastModified Time Father Disorder of cardiovascul ar system [email or web address] Not available 2023 11:24:15 Medical History No medical history recorded. Gynecological HistoryNo gynecological history recorded. Obstetrics History GPAL:G 0 P 0 0 0 0 Immunizations Vaccine Type Date Status Note Provider Nam e and Address Organization Details Recorded Time influenza, unspecified formulation 11/10/2021 completed Jessica Santos [facility] 08/10/2024 14:21:03 Past Encounters Encounter ID Performer Location Encounter Start Date Encounter Closed Date Diagnosis/Indication Diagnosis SNOMED-CT Code Diagnosis ICD10 Code [id number] ALLAN PRADHAN NP [address] [address] 08/11/2024 10:50:24 08/15/2024 09:32:52 Acute hypoxemic respiratory failure 330913822 J96.01 Chronic ob structive pulmonary disease 12474149 J41.1 Pneumonia 453506535 J18. 9 Diastolic heart failure 996620556 I50.33 Pleural effusion 9043793 8 J90 Diabetes mellitus 837378 09 E11.9 Essential hypertension 08182390 I10 Hyperlipidemia 98927956 E78.49 Hypothyroidism 91801611 E03.8 Gastroesop hageal reflux disease without esophagitis 903736285 K21.9 Anxiety 52152516 F41.9 Chronic ki dney disease stage 3 601102145 N18.30 Chronic pain syndrome 37 7349981 G89.4 Obstructiv e sleep apnea syndrome 62608423 G47.33 Asthenia 70771888 R53.1 Open wound 718677863 T14 .8XXA [id number] Hal Cole MD [facility] [address] 08/15/2024 12:44:18 08/17/2024 11:09:33 Asthenia 69179360 R53.1 Acute hypo xemic respiratory failure 775646922 J96.01 Chronic ob structive pulmonary disease 36173079 J44.1 Pneumonia 806191476 J15. 8 Diastolic heart failure 711296741 I50.33 Diabetes mellitus 960462 09 E11.9 Hyperlipidemia 68074522 E78.49 Hypothyroidism 47365655 E03.8 Gastroesop hageal reflux disease without esophagitis 682342609 K21.9 Acute kidney injury 1466 9001 N17.8 [id number] ALLAN PRADHAN NP [facility] [address] [address] 08/16/2024 11:32:50 08/24/2024 10:16:43 Asthenia 89555818 R53.1 Acute hypo xemic respiratory failure 396396809 J96.01 Chronic ob structive pulmonary disease 48311689 J41.1 Pneumonia 964623878 J18. 9 Diastolic heart failure 217330140 I50.33 Pleural effusion 3923903 8 J90 Chronic ki dney disease stage 3 291472866 N18.30 Diabetes mellitus 991883 09 E11.9 Essential hypertension 53129713 I10 Hyperlipidemia 79401540 E78.49 Hypothyroidism 13924776 E03.8 Gastroesop hageal reflux disease without esophagitis 320983699 K21.9 Anxiety 84003555 F41.9 Chronic pain syndrome 37 6918284 G89.4 Obstructiv e sleep apnea syndrome 27514008 G47.33 Open wound 825254894 T14 .8XXA [id number] ALLAN PRADHAN NP [facility] [address] 08/23/2024 10:50:36 08/24/2024 10:28:22 Asthenia 16596653 R53.1 Acute hypo xemic respiratory failure 552547859 J96.01 Chronic ob structive pulmonary disease 89650670 J41.1 Pneumonia 779064123 J18. 9 Diastolic heart failure 258839663 I50.33 Pleural effusion 9961928 8 J90 Chronic ki dney disease stage 3 822075332 N18.30 Diabetes mellitus 940766 09 E11.9 Essential hypertension 21320467 I10 Hyperlipidemia 01417838 E78.49 Hypothyroidism 05293927 E03.8 Gastroesop hageal reflux disease without esophagitis 801976068 K21.9 Anxiety 60902535 F41.9 Chronic pain syndrome 37 7246745 G89.4 Obstructiv e sleep apnea syndrome 04958772 G47.33 Open wound 640453540 T14 .8XXA Constipation 33821892 K5 9.00 [id number] ALLAN PRADHAN NP [address] [address] 09/01/2024 12:36:05 09/02/2024 11:15:18 Asthenia 80695973 R53.1 Acute hypo xemic respiratory failure 294492636 J96.01 Chronic ob structive pulmonary disease 24174216 J41.1 Pneumonia 261439272 J18. 9 Diastolic heart failure 421842286 I50.33 Pleural effusion 1307907 8 J90 Chronic ki dney disease stage 3 643657413 N18.30 Diabetes mellitus 820647 09 E11.9 Essential hypertension 58600238 I10 Hyperlipidemia 77819976 E78.49 Hypothyroidism 77064836 E03.8 Gastroesop hageal reflux disease without esophagitis 347097586 K21.9 Anxiety 83269357 F41.9 Chronic pain syndrome 37 1821351 G89.4 Obstructiv e sleep apnea syndrome 50166757 G47.33 Open wound 840049909 T14 .8XXA Constipation 21883082 K5 9.00 Health Concerns Section Related Observation LastModified by Organization Detai ls LastModified Time None Recorded Concern Status LastModified by Organization Details LastModified Time None Recorded Payers Encounter Date Sequence Insurance Name Policy Number Policy Tidwell Covered Member ID Tidwell Member ID Guarantor Name 09/01/2024 1 [place] [email or web address] Radhika Vaca [id number] Radhika Vaca 09/01/2024 2 [place] [facility] Radhika Vaca [id number] Radhika Vaca Notes Date Note Type Note Provider Name and Address Organization Details Recorded Time 09/01/2024 text/html Radhika is seen today for an acute visit. She is a 78 yo lady, admitted to [facility] 08/09/24 from [facility] for continued care and rehab after a a brief hosp. due to resp. failure (COPD, PNA, CHF) and MARJORIE on CKD (cardiorenal syndrome). Also developed a sacral wound during admission. So far while here, Radhika has been doing well. Working with rehab, now starting to ambulate in her room with assist.She has been feeling better in general. Denies feeling weak or dizzy. No increased SOB, cough, resp. distress. Appetite good, starting to move bowels, but still sluggish. Agreeable to increase in laxatives. No abd. pain or N/V. VSS. BP variable at times.BS in good control, mostly 100s, occ. 200s.Despite order for daily weights, only 4 recorded so far in EMR (210 -> 216 lbs. on 08/25)Labs stable. Referred to Wound PA-C re: sacral area breakdown, checked EMR again, and no notes scanned into chart yet. Continues with triad cream and pressure relief to sacral area. Upon exam, Radhika is resting in bed, arousable, pleasant, but sleepy. No c/o other than bowel issues. SMALL: mod. fall risk PMH: anxiety, CKD3, COPD, chronic pain, DM, CHF, dysphagia, HTN, HLD, hypothyroid, LBBB, morbid obesity, pernicious anemia, TEZ, chronic O2 use.Full code ALLAN PRADHAN NP [address] [facility], [address], [place], [address], [facility] 09/01/2024 12:48:11 OBGyn Episode No OBEpisode recorded.
--- OUTSIDE RECORDS SUMMARY | 2024-10-27 07:55 | XMS_ITS | Continuity of Care Document ---
Author Organization [facility], [facility] Address [address] [place] [address] Care Team Providers Care Card Tender Name Role Phone VALARIE JORDAN - 2ND FLOOR OTHER SHOBHA SMITH Primary Care Provider [phone] Assessment No assessment recorded. Plan of Treatment [...] Modified By Organization Details Last Modified Time 08/23/2024 [id number] medicines to avoid with kidney disease: care instructions Not available 08/23/2024 11:19:09 Reason for Referral None Reported. Problems Name Problem SNOMED Code Status Onset Date Resolution Date Notes Provider Name and Address Organization Details Recorded Time Acute hypoxemic respirator y failure 065945291 Active 2023 ALLAN PRADHAN NP [address] [facility], [address], [place], [address], [facility] 4 10:51:05 Pneumonia 658792972 Active 2023 ALLAN PRADHAN NP [address] [facility], [address], [place], [address], [facility] [employer] 4 10:51:21 Pleural effusion 21983527 Active 2023 ALLAN PRADHAN NP [address] [facility], [address], [place], [address], [facility] 4 10:51:43 Gastroesop hageal reflux disease without esophagiti s 480969174 Active 2023 ALLAN PRADHAN NP [address], [address], [place], [address], [facility] 4 10:53:46 Anxiety 92137455 Active 2023 ALLAN PRADHAN NP [address], [address], [place], [address], [facility] 4 11:00:09 Chronic kidney disease stage 3 218846526 Active 2023 ALLAN PRADHAN NP [address], [address], [place], [address], [facility] 4 11:21:29 Chronic pain syndrome 222644925 Active 2023 ALLAN PRADHAN NP [address], [address], [place], [address], [facility] 4 11:21:39 Acute nontraumat ic kidney injury 0428757925093 03 Active 2023 ALLAN PRADHAN NP [address], [address], [place], [address], [facility] 4 11:23:16 Left bundle branch block 11777111 Active 2023 ALLAN PRADHAN NP [address], [place], [address], [facility] 4 11:23:30 Pernicious anemia 32259434 Active 2023 ALLAN PRADHAN NP [address], [address], [place], [address], [facility] 4 11:23:46 Obstructiv e sleep apnea syndrome 81793886 Active 2023 ALLAN PRADHAN NP [address], [address], [place], [address], [facility] 4 11:47:23 Open wound 251860705 Active 2023 sacral ALLAN PRADHAN NP [address], [address], [place], [address], [facility] 4 12:05:33 Asthenia 27759574 Active 2023 ALLAN PRADHAN NP [address], [address], [place], [address], [facility] 4 12:10:47 Diastolic heart failure 975966031 Active 2018 Hal Cole MD [address], [address], [place], [address], [facility] 9 14:45:31 Dysphagia 25184263 Active 2018 Hal Cole MD [address], [address], [place], [address], [facility] 9 14:45:39 Chronic obstructiv e pulmonary disease 89640724 Active 2018 Hal Cole MD [address], [address], [place], [address], [facility] 9 14:45:48 Essential hypertensi on 41364375 Active 2018 Hal Cole MD [address], [address], [place], [address], [facility] 9 14:45:53 Diabetes mellitus 36858409 Active 2018 Hal Cole MD [address], [address], [place], [address], [facility] 9 14:45:57 Hyperlipid emia 66307525 Active 2018 Hal Cole MD [address], [place], [address], [facility] 9 14:46:04 Obesity 882814497 Active 2018 Hal Cole MD [address], [place], [address], [facility] 9 14:46:12 Hypothyroi dism 33143234 Active 2018 Hal Cole MD [address], [address], [place], [address], [facility] 9 14:50:40 Problem Notes None recorded. Medical Equipment None Reported. Allergies Allergen ID Allergen Name Allergen Category Reaction Reaction Severity Criticality Documentation Date Start Date Code Code System Note Provider Name and Address Organization Details Recorded Time [id number] 0556365z6 2824e ibuprofen medicatio n Not available Not available Not available 08/11/2024 5640 RxNorm swell ing Not Available Not Available Not Available [id number] [id number] 3242840h4 2824e codeine medicatio n Not available Not [...] Address Organization Details Last Updated DateTime 4 62 /min 18 /min 98 [degF] 98 % 98 % 2 L/min 124 mm[Hg] 78 mm[Hg] ALLAN PRADHAN NP [address] [facility], [address], [place], [address] [place] - [facility] 4 10:51:27 Social History Question Answer Notes LastModified by Organizat ion Details LastModified Time Tobacco Smoking Status Former Smoker Not Available [facility] 08/21/2020 03:13:21 Do You Have An Advance Directive? No Full Code [id number] Information not available 08/21/2020 What Is Your Level Of Alcohol Consumption? None [email or web address] Information not available 08/11/2024 What Is Your Code Status? Full Code Information not available 09/01/2024 Do You Have A Medical Power Of Stabilizing Machine Operator? Yes Has HCP Information not available 08/11/2024 What Was The Date Of Your Most Recent Tobacco Screening? 08/11/2024 [email or web address] Information not available 08/11/2024 Do You Have An Out Of Hospital DNR? Yes Information not available 09/01/2024 How Much Tobacco Do You Smoke? 1.5 PPD [id number] Information not available 08/21/2020 Do You Use Any Illicit Or Recreational Drugs? No Information not available 08/11/2024 Has Tobacco Cessation Counseling Been Provided? No [email or web address] Information not available 08/11/2024 How Many Years Have You Smoked Tobacco? 25 [id number] Information not available 08/21/2020 Do You Or Have You Ever Used Any Other Forms Of Tobacco Or Nicotine? No [email or web address] Information not available 08/11/2024 Sex: Unknown Functional Status None recorded. Mental Status None recorded. Family History Relationship Description Onset Age of this Age Resolved Age Notes LastModified by Organization Details LastModified Time Father Disorder of cardiovascul ar system Not available 2023 11:24:15 Medical History No medical history recorded. Gynecological HistoryNo gynecological history recorded. Obstetrics History GPAL:G 0 P 0 0 0 0 Immunizations Vaccine Type Date Status Note Provider Nam e and Address Organization Details Recorded Time influenza, unspecified formulation 11/10/2021 completed Jessica Santos [facility] 08/10/2024 14:21:03 Past Encounters Encounter ID Performer Location Encounter Start Date Encounter Closed Date Diagnosis/Indication Diagnosis SNOMED-CT Code Diagnosis ICD10 Code [id number] ALLAN PRADHAN NP [address] [address] 08/11/2024 10:50:24 08/15/2024 09:32:52 Acute hypoxemic respiratory failure 426404034 J96.01 Chronic ob structive pulmonary disease 08200658 J41.1 Pneumonia 760458577 J18. 9 Diastolic heart failure 508964506 I50.33 Pleural effusion 0156413 8 J90 Diabetes mellitus 111179 09 E11.9 Essential hypertension 07317082 I10 Hyperlipidemia 31568636 E78.49 Hypothyroidism 43019701 E03.8 Gastroesop hageal reflux disease without esophagitis 346440030 K21.9 Anxiety 73902443 F41.9 Chronic ki dney disease stage 3 473530643 N18.30 Chronic pain syndrome 37 4233433 G89.4 Obstructiv e sleep apnea syndrome 36873397 G47.33 Asthenia 56387679 R53.1 Open wound 984006959 T14 .8XXA [id number] Hal Cole MD [address] [address] 08/15/2024 12:44:18 08/17/2024 11:09:33 Asthenia 95532475 R53.1 Acute hypo xemic respiratory failure 099179795 J96.01 Chronic ob structive pulmonary disease 21480518 J44.1 Pneumonia 595688373 J15. 8 Diastolic heart failure 671297529 I50.33 Diabetes mellitus 951233 09 E11.9 Hyperlipidemia 49525149 E78.49 Hypothyroidism 77493174 E03.8 Gastroesop hageal reflux disease without esophagitis 709794101 K21.9 Acute kidney injury 1466 9001 N17.8 [id number] ALLAN PRADHAN NP [facility] [address] [address] 08/16/2024 11:32:50 08/24/2024 10:16:43 Asthenia 58277492 R53.1 Acute hypo xemic respiratory failure 836003108 J96.01 Chronic ob structive pulmonary disease 06555303 J41.1 Pneumonia 809843657 J18. 9 Diastolic heart failure 696653520 I50.33 Pleural effusion 4619820 8 J90 Chronic ki dney disease stage 3 722251889 N18.30 Diabetes mellitus 965667 09 E11.9 Essential hypertension 04049714 I10 Hyperlipidemia 71482394 E78.49 Hypothyroidism 33738155 E03.8 Gastroesop hageal reflux disease without esophagitis 971781775 K21.9 Anxiety 02351832 F41.9 Chronic pain syndrome 37 5532447 G89.4 Obstructiv e sleep apnea syndrome 96487325 G47.33 Open wound 217699750 T14 .8XXA [id number] ALLAN PRADHAN NP [facility] [address] 08/23/2024 10:50:36 08/24/2024 10:28:22 Asthenia 59694367 R53.1 Acute hypo xemic respiratory failure 920215470 J96.01 Chronic ob structive pulmonary disease 64340418 J41.1 Pneumonia 012284559 J18. 9 Diastolic heart failure 176025386 I50.33 Pleural effusion 6451095 8 J90 Chronic ki dney disease stage 3 076915255 N18.30 Diabetes mellitus 676380 09 E11.9 Essential hypertension 48792451 I10 Hyperlipidemia 58772472 E78.49 Hypothyroidism 40848363 E03.8 Gastroesop hageal reflux disease without esophagitis 688771879 K21.9 Anxiety 82097232 F41.9 Chronic pain syndrome 37 1586101 G89.4 Obstructiv e sleep apnea syndrome 83784445 G47.33 Open wound 402503547 T14 .8XXA Constipation 48455107 K5 9.00 Health Concerns Section Related Observation LastModified by Organization Detai ls LastModified Time None Recorded Concern Status LastModified by Organization Details LastModified Time None Recorded Payers Encounter Date Sequence Insurance Name Policy Number Policy Tidwell Covered Member ID Tidwell Member ID Guarantor Name 08/23/2024 1 [place] [employer] Radhika Vaca [id number] Radhika Vaca 08/23/2024 2 [place] [facility] Radhika Vaca [id number] Radhika Vaca Notes Date Note Type Note Provider Name and Address Organization Details Recorded Time 08/23/2024 text/html Radhika is seen today for an acute visit. She is a 78 yo lady, admitted to [facility] 08/09/24 from [facility] for continued care and rehab after a [...] increased SOB, cough, resp. distress. Appetite good, but she reports she still has not moved her bowels and is starting to feel full. Passing gas, but not BM. Hoping if she can sit on the toilet to facilitate a BM. No abd. pain or N/V. Low air loss mattress in place, sacral area still sore but more comfortable.Comple moni antibiotics VSS.BS in good control, mostly 100s, occ. 200s.Despite order for daily weights, only 3 recorded so far in EMR (210 -> 208 lbs.)Labs 08/22 stable; sl. increase in Creat.BM log reviewed, documented BM qd - q other day. Referred to Wound PA-C re: sacral area breakdown, checked EMR again, and no notes scanned into chart yet. Continues with triad cream and pressure relief to sacral area. SMALL: mod. fall risk PMH: anxiety, CKD3, COPD, chronic pain, DM, CHF, dysphagia, HTN, HLD, hypothyroid, LBBB, morbid obesity, pernicious anemia, TEZ, chronic O2 use.Full code ALLAN PRADHAN NP [address] [facility], [address], [place], [address], [facility] 08/23/2024 11:19:11 OBGyn Episode No OBEpisode recorded.
--- OUTSIDE RECORDS SUMMARY | 2024-10-27 07:55 | XMS_ITS | Continuity of Care Document ---
Author Organization [facility] Address [address] [place] [address] Care Team Providers Care Learning Design Specialist Name Role Phone VALARIE JORDAN - 2ND [...] Recorded Time Acute hypoxemic respirator y failure 636237432 Active 2023 ALLAN PRADHAN NP [address] [facility], [address], [place], [address], [facility] [employer] [facility] 4 10:51:05 Pneumonia 527156866 Active 2023 ALLAN PRADHAN NP [address] , [address], [place], [address], [facility] [employer] 4 10:51:21 Pleural effusion 79716965 Active 2023 ALLAN PRADHAN NP [address] , [address], [place], [address], [facility] 4 10:51:43 Gastroesop hageal reflux disease without esophagiti s 312955121 Active 2023 ALLAN PRADHAN NP [address] [facility], [address], [place], [address], [facility] [employer] 4 10:53:46 Anxiety 98799176 Active 2023 ALLAN PRADHAN NP [address], [address], [place], [address], [facility] 4 11:00:09 Chronic kidney disease stage 3 391110238 Active 2023 ALLAN PRADHAN NP [address], [address], [place], [address], [facility] 4 11:21:29 Chronic pain syndrome 520842396 Active 2023 ALLAN PRADHAN NP [address], [address], [place], [address], [facility] 4 11:21:39 Acute nontraumat ic kidney injury 7133540327732 03 Active 2023 ALLAN PRADHAN NP [address], [address], [place], [address], [facility] 4 11:23:16 Left bundle branch block 80547631 Active 2023 ALLAN PRADHAN NP [address], [address], [place], [address], [facility] 4 11:23:30 Pernicious anemia 78071820 Active 2023 ALLAN PRADHAN NP [address], [address], [place], [address], [facility] 4 11:23:46 Obstructiv e sleep apnea syndrome 20297884 Active 2023 ALLAN PRADHAN NP [address], [address], [place], [address], [facility] 4 11:47:23 Open wound 595376640 Active 2023 sacral ALLAN PRADHAN NP [address], [place], [address], [facility] 4 12:05:33 Asthenia 56683816 Active 2023 ALLAN PRADHAN NP [address], [place], [address], [facility] 4 12:10:47 Diastolic heart failure 006282379 Active 2018 Hal Cole MD [address], [place], [address], [facility] 9 14:45:31 Dysphagia 81229877 Active 2018 Hal Cole MD [address], [place], [address], [facility] 9 14:45:39 Chronic obstructiv e pulmonary disease 30828078 Active 2018 Hal Cole MD [address], [place], [address], [facility] 9 14:45:48 Essential hypertensi on 44886208 Active 2018 Hal Cole MD [address] [facility], [address], [place], [address], [facility] 9 14:45:53 Diabetes mellitus 75628944 Active 2018 Hal Cole MD [address] [facility], [address], [place], [address], [facility] 9 14:45:57 Hyperlipid emia 93174294 Active 2018 Hal Cole MD [address] [facility], [address], [place], [address], [facility] 9 14:46:04 Obesity 999895196 Active 2018 Hal Cole MD [address] [facility], [address], [place], [address], [facility] 9 14:46:12 Hypothyroi dism 13111255 Active 2018 Hal Cole MD [address] [facility], [address], [place], [address], [facility] 9 14:50:40 Problem Notes None recorded. Medical Equipment None Reported. Allergies Allergen ID Allergen Name Allergen Category Reaction Reaction Severity Criticality Documentation Date Start Date Code Code System Note Provider Name and Address Organization Details Recorded Time [id number] 688864620 5632093q6 2824e ibuprofen medicatio n Not available Not available Not available 08/11/2024 5640 RxNorm swell ing Not Available Not Available Not Available [id number] [id number] 2824e codeine medicatio n Not available Not [...] Available Not Avai lable Vitals Date Recorded Systolic blood pressure Diastolic blood pressure Provider Name and Address Organization Details Last Updated DateTime 08/15/2024 134 mm[Hg] 72 mm[Hg] Hal Cole MD [address] [facility], [address], [place], [address], [place] [facility] 08/15/2024 12:44:53 Social History Question Answer Notes LastModified by Organizat ion Details LastModified Time Tobacco Smoking Status Former Smoker Not Available [employer] 08/21/2020 03:13:21 Do You Have An Advance Directive? No Full Code [id number] Information not available 08/21/2020 What Is Your Level Of Alcohol Consumption? None Information not available 08/11/2024 What Is Your Code Status? Full Code [email or web address] Information not available 09/01/2024 Do You Have A Medical Power Of Art Critic? Yes Has HCP [email or web address] Information not available 08/11/2024 What Was The Date Of Your Most Recent Tobacco Screening? 08/11/2024 [email or web address] Information not available 08/11/2024 Do You Have An Out Of Hospital DNR? Yes Information not available 09/01/2024 How Much Tobacco Do You Smoke? 1.5 PPD [id number] Information not available 08/21/2020 Do You Use Any Illicit Or Recreational Drugs? No [email or web address] Information not available 08/11/2024 Has Tobacco Cessation Counseling Been Provided? No [email or web address] Information not available 08/11/2024 How Many Years Have You Smoked Tobacco? 25 [id number] Information not available 08/21/2020 Do You Or Have You Ever Used Any Other Forms Of Tobacco Or Nicotine? No [email or web address] Information not available 08/11/2024 Sex: Unknown Functional Status None recorded. Mental Status None recorded. Family History Relationship Description Onset Age of this Age Resolved Age Notes LastModified by Organization Details LastModified Time Father Disorder of cardiovascul ar system [email or web address] Not available 2023 11:24:15 Medical History No medical history recorded. Gynecological HistoryNo gynecological history recorded. Obstetrics History GPAL:G 0 P 0 0 0 0 Immunizations Vaccine Type Date Status Note Provider Nam e and Address Organization Details Recorded Time influenza, unspecified formulation 11/10/2021 completed Jessica gonsalez [facility] 08/10/2024 14:21:03 Past Encounters Encounter ID Performer Location Encounter Start Date Encounter Closed Date Diagnosis/Indication Diagnosis SNOMED-CT Code Diagnosis ICD10 Code [id number] ALLAN PRADHAN NP [address] [address] 08/11/2024 10:50:24 08/15/2024 09:32:52 Acute hypoxemic respiratory failure 824738500 J96.01 Chronic ob structive pulmonary disease 67345520 J41.1 Pneumonia 536428083 J18. 9 Diastolic heart failure 153598304 I50.33 Pleural effusion 4179490 8 J90 Diabetes mellitus 520546 09 E11.9 Essential hypertension 50276215 I10 Hyperlipidemia 38636725 E78.49 Hypothyroidism 14921843 E03.8 Gastroesop hageal reflux disease without esophagitis 606116302 K21.9 Anxiety 94394805 F41.9 Chronic ki dney disease stage 3 337243206 N18.30 Chronic pain syndrome 37 1882593 G89.4 Obstructiv e sleep apnea syndrome 64482059 G47.33 Asthenia 34425320 R53.1 Open wound 919485027 T14 .8XXA [id number] Hal Cole MD [facility] [address] 08/15/2024 12:44:18 08/17/2024 11:09:33 Asthenia 26055246 R53.1 Acute hypo xemic respiratory failure 381873008 J96.01 Chronic ob structive pulmonary disease 77017963 J44.1 Pneumonia 715511690 J15. 8 Diastolic heart failure 292353164 I50.33 Diabetes mellitus 593396 09 E11.9 Hyperlipidemia 36931127 E78.49 Hypothyroidism 84356383 E03.8 Gastroesop hageal reflux disease without esophagitis 741464955 K21.9 Acute kidney injury 1466 9001 N17.8 Health Concerns Section Related Observation LastModified by Organization Detai ls LastModified Time None Recorded Concern Status LastModified by Organization Details LastModified Time None Recorded Payers Encounter Date Sequence Insurance Name Policy Number Policy Tidwell Covered Member ID Tidwell Member ID Guarantor Name 08/15/2024 1 [place] [employer] Radhika Vaca [id number] Radhika Vaca 08/15/2024 2 [place] [facility] Radhika Vaca [id number] Radhika Vcaa Notes Date Note Type Note Provider Name and Address Organization Details Recorded Time 08/15/2024 text/html Patient is a 78 yo female admit from hospital after presenting with increasing shortness of breath. Required Bipap on presentation for respiratory failure due to probable CHF, COPD and pneumonia. Treated with IV lasix, steroids and rocephin/zithromax, later changed to augmentin and doxy. Complicated by ARF on CRF improved with supportive care PMH is significant formorbid obesitychfcopd on O2crf stage 3htnhldhypothyroiddm dysphagiaanemia admit to facility for continued care and therapy Hal Cole MD [address] [place] [address], [address], [place], [address], [facility] [employer] 08/15/2024 13:00:33 OBGyn Episode No OBEpisode recorded.
[2024-10-27 08:02] LABS: Basophils Absolute Auto 0.1 X10*3/uL (0.0-0.2); Basophils Percent Auto 0.4 % (0-2); Eosinophils Absolute Auto 0.1 X10*3/uL (0.0-0.4); Eosinophils Percent Auto 0.9 % (0-4); Hematocrit 34.6 % (37.0-47.0); Hemoglobin 11.2 g/dl (12.0-16.0); Imm Gran Pct Auto 0.8 % (0.0-0.4); Lymphocytes Absolute Auto 0.4 X10*3/uL (1.2-4.9); MANUAL DIFF FLAG SCAN; Mean Corpuscular HGB Conc 32.4 g/dl (31.0-35.0); Mean Corpuscular Hemoglobin 28.8 pg (27.0-33.0); Mean Corpuscular Volume 88.9 fL (80.0-98.0); Monocytes Absolute Auto 0.5 X10*3/uL (0.1-1.2); Monocytes Percent Auto 4.4 % (2-11); Neutrophils Percent Auto 90.5 % (45-73); Platelet Count 218 X10*3/uL (160-400); Red Blood Count 3.89 X10*6/uL (4.20-5.50); SCAN SMEAR FLAG 1; White Blood Count 12.2 X10*3/uL (4.8-10.8)
[2024-10-27 08:07] LABS: VBG Base Excess -12.2 mmol/L; VBG HCO3 10 mmol/L (22-26); VBG pCO2 18 mmHg; VBG pH 7.36 (7.32-7.43); VBG pO2 235 mmHg
[2024-10-27 08:07] LABS: Venous Blood Gas Refer to POC result
[2024-10-27 08:23] LABS: SLIDE REVIEW VERIFIED
[2024-10-27 08:51] LABS: Alanine Aminotransferase 6 U/L (0-31); Alkaline Phosphatase 86 U/L (39-117); Anion Gap 18 (12-20); Aspartate Amino Transferase 22 U/L (5-31); Bilirubin Direct 0.1 mg/dL (0.0-0.5); Bilirubin Total 0.3 mg/dL (0.0-1.0); Blood Urea Nitrogen 80 mg/dL (9-16); Calcium 8.7 mg/dL (8.4-10.2); Carbon Dioxide 13 mmol/L (22-29); Chloride 113 mmol/L (96-108); Creatinine Clr Calc Pharmacy 18.9; Estimated Glomerular Filt Rate 16; Glucose Random 163 mg/dL (60-115); Magnesium 2.3 mg/dL (1.6-2.6); Potassium 4.9 mmol/L (3.3-5.1); Sodium 139 mmol/L (135-145); Total Protein 6.8 g/dL (6.5-8.0)
[2024-10-27 09:13] LABS: Prothrombin Time 11.9 SEC (10.9-12.4)
[2024-10-27 09:32] LABS: C Reactive Protein 22.57 mg/dL (< or = 0.50)
[2024-10-27] MEDS: Albuterol/Iprat 2.5/0.5MG 3 ML AMPUL.NEB INHALE (09:46)
[2024-10-27 09:48] LABS: Influenza A PCR NEGATIVE (Negative); Influenza B PCR NEGATIVE (Negative); Resp Syncy Virus RNA Qual PCR NEGATIVE (Negative); SARS COV2 PCR INHOUSE NEGATIVE (Negative)
[2024-10-27 09:49] LABS: B Type Natriuretic Peptide 671 pg/mL (<100)
[2024-10-27 10:32] LABS: Lactic Acid 0.8 mmol/L (0.5-2.0)
--- NOTE | 2024-10-27 11:22 | PC.NURSE ---
16F FC inserted, over 800 ccs cloudy purulent yellow drainage noted, Dr. Toney made aware.
[2024-10-27 11:28] LABS: Appearance Urine Turbid; Color Urine Yellow; Glucose Urine UA 500 mg/dL (Negative); Leukocyte Esterase Urine Large (3+) (Negative); Nitrite Urine Negative (Negative); PH 5.5 (5.0-9.0); UMIC TRIGGER UACC YES; Urine Blood Large (3+) (Negative); Urine Ketones Trace mg/dL (Negative); Urine Protein 300 (3+) mg/dL (Neg-Trace)
[2024-10-27 11:30] LABS: Bacteria Urine 4+ (None Seen); Squamous Epithelial Cell Urine 0-2 /HPF (0-2); UACC Culture Trigger YES; WBC Urine >50 /HPF (0-5)
[2024-10-27] MEDS: cefTRIAXone sodium 1 GM VIAL IVPUSH (11:50)
--- NOTE | 2024-10-27 13:20 | P.HPHOSP_ITS ---
History of Present Illness Date of Service: 10/27/24 Chief Complaint: pain from coccyx ulcer The patient is a 79-year-old female with a past medical history significant for COPD, HFpEF, pernicious anemia, HTN, HLD, insulin-dependent type 2 diabetes with neuropathy, CKD3, hypothyroidism, and mood disorder, who presents with increasing pain from her coccyx wound. She denies fever, chills, or shortness of breath. Routine workup revealed a positive urinalysis, and she is being treated for a UTI. However, she subsequently presented to the ED with increasing shortness of breath and dyspnea on exertion for the past 2?3 days, which worsened this morning. Findings include mild MARJORIE on CKD, a slightly elevated WBC, and a serum bicarbonate of 13 with no anion gap. Her COPD and respiratory status remain stable at this time. Review of Systems 2 Review of Systems: Gen: no fever Resp: no sob, no cough CV: no chest, no RIZVI, no leg edema GI: No n/v, no abd pain MSK/skin: pain from decub ulcer Neuro: No confusion Yes all other systems are reviewed and are negative [facility] Medical History Anemia Herpes zoster MARJORIE (acute kidney injury) Left bundle branch block Morbid obesity Chronic pain syndrome Anxiety Pernicious anemia COPD (chronic obstructive pulmonary disease) CHF (congestive heart failure) Hypothyroidism Essential hypertension Diabetes mellitus Pure hypercholesterolemia Family History Father CVD (cardiovascular disease) Mother No problems noted. Family/Other FH: mental illness Surgical History H/O left knee surgery Deficient knowledge of leg surgery History of tonsillectomy and adenoidectomy History of appendectomy Social History Household Members: Children Housing: Apartment Do you presently have visiting nurse or other home services: No Alcohol intake: unknown Patient Tobacco Use Status: Former Tobacco user Tobacco use type: Cigarette e-Cigarette/Vaping Use: Never Used Second Hand Smoke Exposure: No Use of substances other than those prescribed or required for medical reasons: No Currently Displaying Signs/Symptoms of Drug Intoxication Withdrawal: No Have you been hit, kicked, punched, or otherwise hurt by someone within the past year? If so, by whom?: No Do you feel safe in your current relationship?: Yes Is there a partner from a previous relationship who is making you feel unsafe now?: No Are you made to feel afraid or neglected: No [facility] Practices: sikhism Advance Directives: Yes Advance Directives on File: Yes Advance Directives Date on File: 06/24/24 Do you have a plan to hurt others: No Plan Recently lost weight without trying: Unsure Nutrition Risks: No Nutritional Risk Patient : No service: No Current occupational status: disabled Cognitive needs: Yes Hearing needs: No Vision needs: No Meds Allergies Allergy/AdvReac Type Severity Reaction Status Date / Time ibuprofen [From Motrin] Allergy Unknown swelling Verified 10/27/24 07:38 codeine [CODEINE] AdvReac Unknown SLEEPY Verified 10/27/24 07:38 Home Medications ?Medication ?Instructions ?Recorded ?Confirmed ?Last Taken ?Type insulin glargine 100 unit/mL (3 15 unit subcut BEDTIME 06/19/24 10/27/24 10/27/24 09:00 History mL) subcutaneous pen (Basaglar KwikPen U-100 Insulin) levothyroxine 200 mcg tablet 200 mcg PO DAILY@0600 06/19/24 10/27/24 10/27/24 09:00 History oxycodone 5 mg tablet 5 mg PO BID PRN Pain, Severe (Pain 10/27/24 10/27/24 10/27/24 09:00 History Scale 7-10) Physical Exam 2 Vital Signs and Narrative: Vital Signs: Last Vital Signs Temp 97.6 F 10/27/24 13:04 Pulse 74 10/27/24 13:04 Resp 17 10/27/24 13:04 BP 156/58 H 10/27/24 13:04 Pulse Ox 99 10/27/24 13:04 O2 Del Method Nasal Cannula 10/27/24 13:04 O2 Flow Rate 2 10/27/24 10:43 Oxygen Flow Rate 2 10/27/24 07:37 BMI result Body Mass Index 33.9 Constitutional: Alert, in no acute distress. Mental Status: Oriented to person, place and time. Eyes: Pupils are equal, round, and reactive to light. Ear, Nose, and Throat: Oropharynx clear, mucous membranes moist. Ears and nose without deformities. Trachea midline. Respiratory: Bibasilar crackles. No wheezing. Cardiovascular: S1, S2 regular. No murmurs, rubs, or gallops. Gastrointestinal: Abdomen soft, non-tender, non-distended. Normal bowel sounds. Neurologic: Cranial nerves II-XII are grossly intact bilaterally. No focal neurological deficits. Moves all extremities spontaneously. Skin: Extremities: 1+ bilateral pitting edema. Chronic venous stasis dermatitis changes bilaterally. Psychiatric: Normal mood and affect. Results Labs 10/27/24 07:55 10/28/24 05:23 Labs: Laboratory Results - last 24 hr 10/27/24 10/27/24 10/27/24 07:55 08:02 08:24 MCV 88.9 MCH 28.8 MCHC 32.4 RDW 16.0 Plt Count 218 D MPV 9.0 L Immature Gran % (Auto) 0.8 H Neut % (Auto) 90.5 H Lymph % (Auto) 3.0 L [place] % (Auto) 4.4 Eos % (Auto) 0.9 Baso % (Auto) 0.4 Lymph # (Auto) 0.4 L [place] # (Auto) 0.5 Eos # (Auto) 0.1 Baso # (Auto) 0.1 Abs Immat Gran (auto) 0.10 H Absolute Neuts (auto) 11.0 H Absolute Nucleated RBC 0.000 Nucleated RBC % (auto) 0.0 Smear Tech's Comments VERIFIED PT INR VBG pH 7.36 VBG pCO2 18 VBG pO2 235 VBG HCO3 10 L VBG O2 Saturation 100.0 VBG Base Excess -12.2 Anion Gap 18 Estim Creat Clear Calc 18.9 Estimated GFR 16 Random Glucose 163 H Lactic Acid Calcium 8.7 D Magnesium 2.3 Total Bilirubin 0.3 Direct Bilirubin 0.1 AST 22 ALT 6 Alkaline Phosphatase 86 C-Reactive Protein 22.57 H B-Natriuretic Peptide 671 H Total Protein 6.8 Albumin 3.0 L Urine Color Urine Appearance Urine pH Ur Specific [place] Urine Protein Urine Glucose (UA) Urine Ketones Urine Blood Urine Nitrite Ur Leukocyte Esterase Urine RBC Urine WBC Ur Squamous Epith Cells Urine Bacteria Hyaline Casts Influenza Type A (PCR) NEGATIVE Influenza Type B (PCR) NEGATIVE RSV RNA Qual (PCR) NEGATIVE SARS-CoV-2 RNA (RT-PCR) NEGATIVE 10/27/24 10/27/24 10/27/24 09:00 10:07 11:19 MCV MCH MCHC RDW Plt Count MPV Immature Gran % (Auto) Neut % (Auto) Lymph % (Auto) [place] % (Auto) Eos % (Auto) Baso % (Auto) Lymph # (Auto) [place] # (Auto) Eos # (Auto) Baso # (Auto) Abs Immat Gran (auto) Absolute Neuts (auto) Absolute Nucleated RBC Nucleated RBC % (auto) Smear Tech's Comments PT 11.9 INR 1.0 VBG pH VBG pCO2 VBG pO2 VBG HCO3 VBG O2 Saturation VBG Base Excess Anion Gap Estim Creat Clear Calc Estimated GFR Random Glucose Lactic Acid 0.8 Calcium Magnesium Total Bilirubin Direct Bilirubin AST ALT Alkaline Phosphatase C-Reactive Protein B-Natriuretic Peptide Total Protein Albumin Urine Color Yellow Urine Appearance Turbid Urine pH 5.5 Ur Specific [place] 1.010 Urine Protein 300 (3+) H Urine Glucose (UA) 500 H Urine Ketones Trace Urine Blood Large (3+) H Urine Nitrite Negative Ur Leukocyte Esterase Large (3+) H Urine RBC 11-20 H Urine WBC >50 H Ur Squamous Epith Cells 0-2 Urine Bacteria 4+ Hyaline Casts 3-5 Influenza Type A (PCR) Influenza Type B (PCR) RSV RNA Qual (PCR) SARS-CoV-2 RNA (RT-PCR) Imaging Radiologist's Impressions: Impressions Chest X-Ray 10/27/24 08:05 IMPRESSION: Mild cardiomegaly with pulmonary vascular congestion. Electronically signed by: Grant Willis MD 10/27/2024 08:35 AM EST RP Abdomen/Pelvis CT 10/27/24 10:27 IMPRESSION: Bilateral hydroureteronephrosis without any obstructive etiology. Small simple exophytic cyst mid pole right kidney, stable Mild constipation without obstruction. Mild circumferential thickening of the rectal wall, stable. Small umbilical hernia containing intraperitoneal fat. Fleischner guidelines were followed. Electronically signed by: Grant Willis MD 10/27/2024 10:48 AM EST RP Assessment and Plan (1) Metabolic acidosis: Status: Acute (2) Renal insufficiency: Status: Acute (3) Urinary tract infection: Status: Acute Plan 79F PMH COPD on home O2, HFpEF, pernicious anemia, HTN, HLD insulin-dependent type 2 diabetes with neuropathy, CKD3, hypothyroidism, and mood disorder here with pain from pressure ulcer and incidental UTI, no speis, and acute on chronic renal failure complicated by metabolic acidosis Sore back from pressure ulcer --POA, no evidence of infection -wound care consult -frequent turning -and other nursng protocl UTI, no sepsis, culture sent -continue Ceftriaxone Metabolic acidosis--without GAP, likely Jardiance induced acidosis, -hold jardiance -check B-hydroxybutyrate -may need bicab replacement MARJORIE on CKD,concern for chf, so avoid fluid for now and closely monitor and consider nephrology consultation chronic respiratory failure d/t copd , no exacrebation -continue home inhalers -O2 to keep sat 88 to 92 chronic HFpEF, no exacerbation -resume home diuretic -hold jardiance because of metabolic acidosis COPD with acute exacerbation -Prednisone for 5 days -bronchodilators by Neb and O2 as above HTN -resume home meds once med rec verified HLD -statin Insulin-dependent type 2 diabetes Sliding scale insulin, Lantus stop jardiance as stated above Diabetic diet Full Code DVT Prophylaxis: Heparin Code: Full code Quality Stroke Does the patient have a stroke diagnosis?: No VTE Prior VTE?: No VTE Risk Level:: Medical - moderate - high VTE Device Contraindication: N/A - Device Ordered VTE Drug Contraindication: N/A - Med Ordered
--- NOTE | 2024-10-27 14:25 | PHA.MEDREC ---
Pharmacy Consult ? Medication Reconciliation Pharmacy has completed the medication reconciliation. Pt asked me to call her son Robbie, spoke with him over the phone and he was able to confirm her home meds. States the only insulin he gives her is the glargine 15 units at night and that she stopped taking her amlodipine a long time ago .
[2024-10-27] MEDS: Heparin Sodium,Porcine 5,000 UNIT/ML VIAL 5000 UNIT SUBCUT (14:34)
[2024-10-27] MEDS: Insulin Lispro 100 UNIT/ML 3 ML VIAL SUBCUT ×2 (16:13→21:52)
[2024-10-27] MEDS: 0.9 % Sodium Chloride Flush 3 ML SYRINGE IVFLUSH ×2 (16:13→21:52)
[2024-10-27 16:26] LABS: Glucose, Whole Blood 266 mg/dL (60-115)
[2024-10-27 17:06] LABS: Alanine Aminotransferase < 6 U/L (0-31); Albumin Level 2.9 g/dL (3.5-5.0); Alkaline Phosphatase 87 U/L (39-117); Anion Gap 18 (12-20); Aspartate Amino Transferase 22 U/L (5-31); Bilirubin Total 0.2 mg/dL (0.0-1.0); Blood Urea Nitrogen 74 mg/dL (9-16); Calcium 8.3 mg/dL (8.4-10.2); Carbon Dioxide 12 mmol/L (22-29); Chloride 113 mmol/L (96-108); Creatinine Clr Calc Pharmacy 18.8; Estimated Glomerular Filt Rate 16; Glucose Random 280 mg/dL (60-115); Potassium 4.5 mmol/L (3.3-5.1); Sodium 138 mmol/L (135-145); Total Protein 6.7 g/dL (6.5-8.0)
[2024-10-27] MEDS: oxyCODONE HCl Immed Release 5 MG TABLET PO (19:19)
[2024-10-27 20:09] LABS: Glucose, Whole Blood 268 mg/dL (60-115)
[2024-10-27] MEDS: Acetaminophen 325 MG TABLET 650 MG PO (20:30)
--- NOTE | 2024-10-27 21:21 | HO.SKINPHOTO ---
Location: right buttock Category: pressure Stage: II Length: Width: Depth: cm Location: Category: Stage: Length: Width: Depth: cm Location: Category: Stage: Length: Width: Depth: cm Location: Category: Stage: Length: Width: Depth: cm Location: Category: Stage: Length: Width: Depth: cm Location: Category: Stage: Length: Width: Depth: cm
[2024-10-27] MEDS: Sodium Bicarbonate 650 MG TABLET 1300 MG PO (21:51)
[2024-10-27] MEDS: Atorvastatin Calcium 40 MG TABLET PO (21:52)
[2024-10-27] MEDS: Insulin Glargine,Hum.rec.anlog 100 UNIT/ML 10 ML VIAL 15 UNIT SUBCUT (21:52)
[2024-10-27] MEDS: LORazepam 0.5 MG TABLET PO (21:52)
--- NOTE | 2024-10-28 00:52 | MHC.PIE ---
p; informed by staff pt is wet with urine even with francisco? dark yellow/brown urine with sediment/clots noted in tube. i; francisco hand irrigated. p; post irrigation, francisco output noted with dark cloudy sediment that turned to bloody with sediment. pt also c/o pain 10/10 to back and bladder/burning pain i; dr lee notified. new order morphine 4 mg iv once p; blood cx positive for GNR i; dr lee notified by lab - new order ceftriaxone once e; will cont to [facility]
--- NOTE | 2024-10-28 00:55 | PM.EVENT ---
Event Note Date of Service: 10/28/24 Event Note: Nurse reported hematuria with clots. Will hold heparin. Will start CBI and consult urology Time Spent With Patient Time: Total time managing care of this patient today ____ minutes.
--- NOTE | 2024-10-28 01:15 | PM.EVENT ---
Event Note Date of Service: 10/28/24 Event Note: Lab reported Gram negative bacteremia. Will increase ceftriaxone to 2g daily Time Spent With Patient Time: Total time managing care of this patient today ____ minutes.
[2024-10-28] MEDS: cefTRIAXone sodium 1 GM VIAL IVPUSH (01:49)
[2024-10-28] MEDS: Morphine Sulfate 4 MG/ML CARTRIDGE IVPUSH (01:54)
[2024-10-28 03:21] VITALS: BP 126/58; PULSE 81; RESP 18; TEMP 36.4; O2SAT 99
[2024-10-28 05:50] LABS: Anion Gap 18 (12-20); Blood Urea Nitrogen 73 mg/dL (9-16); Calcium 8.4 mg/dL (8.4-10.2); Carbon Dioxide 12 mmol/L (22-29); Chloride 112 mmol/L (96-108); Creatinine Clr Calc Pharmacy 20.2; Estimated Glomerular Filt Rate 18; Glucose Random 257 mg/dL (60-115); Potassium 4.3 mmol/L (3.3-5.1); Sodium 138 mmol/L (135-145)
[2024-10-28] MEDS: Levothyroxine Sodium 200 MCG TABLET PO (06:23)
[2024-10-28] MEDS: 0.9 % Sodium Chloride Flush 3 ML SYRINGE IVFLUSH (07:59)
[2024-10-28] MEDS: DULoxetine HCl 20 MG CAPSULE.DR PO (07:59)
[2024-10-28] MEDS: Bumetanide 1 MG TABLET 2 MG PO (07:59)
[2024-10-28] MEDS: Sodium Bicarbonate 650 MG TABLET 1300 MG PO (07:59)
[2024-10-28] MEDS: oxyCODONE HCl Immed Release 5 MG TABLET PO ×2 (07:59→21:47)
[2024-10-28 08:00] VITALS: BP 170/74; PULSE 80; RESP 18; TEMP 36.1; O2SAT 100
[2024-10-28] MEDS: Insulin Lispro 100 UNIT/ML 3 ML VIAL SUBCUT ×4 (08:20→21:48)
[2024-10-28 08:21] LABS: Glucose, Whole Blood 202 mg/dL (60-115)
--- NOTE | 2024-10-28 09:53 | HO.PM.IMPN ---
Subjective Subjective Date of Service: 10/28/24 Interval History: She is overall feeling better, still with soreness on back from pressure ulcer, Review of Systems no fever Physical Exam Vital Signs: Vital Signs: Last Vital Signs Temp 96.9 F 10/28/24 08:00 Pulse 80 10/28/24 08:00 Resp 18 10/28/24 08:00 BP 170/74 H 10/28/24 08:00 Pulse Ox 100 10/28/24 08:00 O2 Del Method Nasal Cannula 10/28/24 08:00 O2 Flow Rate 2 10/28/24 08:00 Oxygen Flow Rate 2 10/27/24 07:37 BMI result Body Mass Index 33.9 Const: Other: General: AO X 3, no acute distress Resp: CTA bilateral CVS: S1,S2,RRR GI: +BS, NT, no distention Skin: see back pic in h and p Neuro: motor grossly intact Psych: appropriate affect Skin: Other: The patient has an area of some skin breakdown on the right upper buttock near the sacrum. There is excoriation but no exposure of subcutaneous fat. Objective Data Active Medications Acetaminophen (Acetaminophen 325 Mg Tablet) 650 mg PO Q6H PRN PRN Reason: Pain, Mild 1-3,fever,headache Last Admin: 10/27/24 20:30 Dose: 650 mg Documented By: JANETH Albuterol Sulfate (Albuterol Sulfate 90 Mcg 8 Gm Inhaler) 2 puff INHALE Q6H PRN PRN Reason: shortness of breath or wheezing Albuterol/Ipratropium (Albuterol/Iprat 2.5/0.5mg 3 Ml Ampul.Neb) 3 ml INHALE Q4H PRN PRN Reason: shortness of breath or wheezing Atorvastatin Calcium (Atorvastatin Calcium 40 Mg Tablet) 40 mg PO BEDTIME [facility] Last Admin: 10/27/24 21:52 Dose: 40 mg Documented By: CARLOS Bumetanide (Bumetanide 1 Mg Tablet) 2 mg PO DAILY [facility]; Protocol Last Admin: 10/28/24 07:59 Dose: 2 mg Documented By: PHUC Calcium Carbonate (Calcium Carbonate 750 Mg Tab.Chew) 750 mg PO Q4H PRN PRN Reason: Heartburn Ceftriaxone Sodium (Ceftriaxone Sodium 2 Gm Vial) 2 gm IVPUSH Q24H [facility] Duloxetine HCl (Duloxetine Hcl 20 Mg Capsule.Dr) 20 mg PO DAILY [facility] Last Admin: 10/28/24 07:59 Dose: 20 mg Documented By: PHUC Glucose (Glucose Gel 15 Gm Gel..Gram.) 15 gm PO Q15M PRN; Protocol PRN Reason: per Hypoglycemia Standing Ord. Dextrose (D10) 250 mls @ 750 mls/hr IV Q15M PRN; Protocol PRN Reason: per Hypoglycemia Standing Ord. Sodium Bicarbonate 100 meq/ (Dextrose) 1,000 mls @ 50 mls/hr IV .Q20H [facility] Insulin Glargine (Insulin Glargine,Hum.Rec.Anlog 100 Unit/Ml 10 Ml Vial) 15 unit SUBCUT BEDTIME [facility] Last Admin: 10/27/24 21:52 Dose: 15 unit Documented By: CARLOS Insulin Human Lispro (Insulin Lispro 100 Unit/Ml 3 Ml Vial) 0 unit SUBCUT QIDACHS [facility]; Protocol Last Admin: 10/28/24 08:20 Dose: 4 unit Documented By: PHUC Levothyroxine Sodium (Levothyroxine Sodium 200 Mcg Tablet) 200 mcg PO DAILY@0600 [facility] Last Admin: 10/28/24 06:23 Dose: 200 mcg Documented By: CARLOS Lorazepam (Lorazepam 0.5 Mg Tablet) 0.5 mg PO TID PRN PRN Reason: anxiety Last Admin: 10/27/24 21:52 Dose: 0.5 mg Documented By: CARLOS Magnesium Hydroxide (Milk Of Magnesia 30 Ml Oral.Susp) 30 ml PO DAILY PRN PRN Reason: Constipation Melatonin (Melatonin 3 Mg Tablet) 6 mg PO BEDTIME PRN PRN Reason: Insomnia Nystatin (Nystatin Powder 15 Gm Bottle) 1 appl TOPICAL BID [facility]; Protocol Last Admin: 10/27/24 21:53 Dose: Not Given Documented By: CARLOS Non-Admin Reason: Med Not Available Oxycodone HCl (Oxycodone Hcl Immed Release 5 Mg Tablet) 5 mg PO BID PRN PRN Reason: Pain, Severe (Pain Scale 7-10) Last Admin: 10/28/24 07:59 Dose: 5 mg Documented By: PHUC Polyethylene Glycol (Polyethylene Glycol 3350 17 Gm Powd.Pack) 17 gm PO DAILY PRN PRN Reason: Constipation Sodium Bicarbonate (Sodium Bicarbonate 650 Mg Tablet) 1,300 mg PO BID [facility] Last Admin: 10/28/24 07:59 Dose: 1,300 mg Documented By: PHUC Sodium Chloride (0.9 % Sodium Chloride Flush 3 Ml Syringe) 3 ml IVFLUSH QSHIFT [facility] Last Admin: 10/28/24 07:59 Dose: 3 ml Documented By: PHUC Labs 10/27/24 07:55 10/29/24 07:37 Labs: Laboratory Results - last 24 hr 10/27/24 10/27/24 10/27/24 08:24 10:07 11:19 Anion Gap Estim Creat Clear Calc Estimated GFR POC Glucose Random Glucose Lactic Acid 0.8 Calcium Total Bilirubin AST ALT Alkaline Phosphatase Total Protein Albumin Beta-Hydroxybutyrate 1.20 H Urine Color Yellow Urine Appearance Turbid Urine pH 5.5 Ur Specific [place] 1.010 Urine Protein 300 (3+) H Urine Glucose (UA) 500 H Urine Ketones Trace Urine Blood Large (3+) H Urine Nitrite Negative Ur Leukocyte Esterase Large (3+) H Urine RBC 11-20 H Urine WBC >50 H Ur Squamous Epith Cells 0-2 Urine Bacteria 4+ Hyaline Casts 3-5 10/27/24 10/27/24 10/27/24 16:03 16:32 20:06 Anion Gap 18 Estim Creat Clear Calc 18.8 Estimated GFR 16 POC Glucose 266 H 268 H Random Glucose 280 H Lactic Acid Calcium 8.3 L Total Bilirubin 0.2 AST 22 ALT < 6 Alkaline Phosphatase 87 Total Protein 6.7 Albumin 2.9 L Beta-Hydroxybutyrate Urine Color Urine Appearance Urine pH Ur Specific [place] Urine Protein Urine Glucose (UA) Urine Ketones Urine Blood Urine Nitrite Ur Leukocyte Esterase Urine RBC Urine WBC Ur Squamous Epith Cells Urine Bacteria Hyaline Casts 10/28/24 10/28/24 05:23 08:17 Anion Gap 18 Estim Creat Clear Calc 20.2 Estimated GFR 18 POC Glucose 202 H Random Glucose 257 H Lactic Acid Calcium 8.4 Total Bilirubin AST ALT Alkaline Phosphatase Total Protein Albumin Beta-Hydroxybutyrate Urine Color Urine Appearance Urine pH Ur Specific [place] Urine Protein Urine Glucose (UA) Urine Ketones Urine Blood Urine Nitrite Ur Leukocyte Esterase Urine RBC Urine WBC Ur Squamous Epith Cells Urine Bacteria Hyaline Casts Microbiology Microbiology Results: Microbiology 10/27/24 10:07 Blood Culture - Preliminary Blood - Venous Prelim: GNR Gram Stain only Assessment and Plan (1) Hematuria: Status: Acute (2) Acute kidney injury superimposed on CKD: Status: Acute (3) Urinary tract infection: Status: Acute (4) Gram-negative bacteremia: Status: Acute Plan 79F PMH COPD on home O2, HFpEF, pernicious anemia, HTN, HLD insulin-dependent type 2 diabetes with neuropathy, CKD3, hypothyroidism, and mood disorder here with pain from pressure ulcer and incidental UTI, no speis, and acute on chronic renal failure complicated by metabolic acidosis Sore back from pressure ulcer --POA, no evidence of infection -wound care consult -frequent turning -and other nursng protocl UTI, no sepsis, culture sent -continue Ceftriaxone GNR bacteremia, likely same source as uti -continue Ceftriaxone 2g daily, follow sensitivity Metabolic acidosis--without GAP, likely Jardiance induced acidosis, unchanged -hold jardiance -B-hydroxybutyrate mild high, -IV and PO bicab replacement and repeat lab -Nephrology following -may need bicab replacement MARJORIE on CKD,concern for chf, better, chronic respiratory failure d/t copd , no exacrebation -continue home inhalers -O2 to keep sat 88 to 92 chronic HFpEF, no exacerbation -resume home diuretic -hold jardiance because of metabolic acidosis COPD with acute exacerbation -Prednisone for 5 days -bronchodilators by Neb and O2 as above HTN -resume home meds once med rec verified HLD -statin Insulin-dependent type 2 diabetes Sliding scale insulin, Lantus stop jardiance as stated above Diabetic diet Full Code DVT Prophylaxis: Heparin Code: Full code Quality Stroke Does the patient have a stroke diagnosis?: No VTE Prior VTE?: No VTE Risk Level:: Medical - moderate - high VTE Device Contraindication: N/A - Device Ordered VTE Drug Contraindication: N/A - Med Ordered
[2024-10-28] MEDS: Sodium Bicarbonate 8.4% 100 MEQ in Dextrose 5 % 900 ML 50 MEQ IV (10:08)
--- NOTE | 2024-10-28 10:57 | MHC.CM.PN ---
PT REPORTS SHE LIVES WITH HER SON AND IS INDEPENDENT WITH CARE SHE HAS MEALS ON WHEELS AND NO OTHER SERVICES PT HAS HOME O2 FROM [employer] A TOILET RISE, A VAL WALKER, GRAB BARS, AND RAMP SHE HAS A MOLST AND HCP ON FILE PCP: SHOBHA BOOGIE IMM DELIVERED DCP: TBD PENDING PT EVAL PT STATES IF SHE QUALIFIES FOR STR, SHE WOULD PREFER [facility] SKILLED SHE WILL LIKELY NEED BLS TRANSFER EVEN IF SHE RETURNS HOME
[2024-10-28 11:10] LABS: Glucose, Whole Blood 257 mg/dL (60-115)
[2024-10-28] MEDS: Albuterol/Iprat 2.5/0.5MG 3 ML AMPUL.NEB INHALE ×2 (11:13→17:21)
[2024-10-28 11:19] VITALS: PULSE 88; RESP 18; O2SAT 95
[2024-10-28] MEDS: cefTRIAXone sodium 2 GM VIAL IVPUSH (11:19)
--- NOTE | 2024-10-28 13:15 | P.CDIM_ITS ---
PROVIDER RESPONSE TEXT: To clarify, the appropriate diagnosis supported by the clinical indicators: stage 3 QUERY TEXT: PHYSICIAN'S DOCUMENTATION REQUEST Date of Query: 10/28/2024 08:29 AM EST Patient Name: Radhika Vaca Admit Date: 10/27/2024 Dear Christian Mujica MD, A review of the medical record indicates additional documentation may be needed. Please review below and update the documentation accordingly. Clinical Indicators: patient admitted with pain from coccyx ulcer/bed sore Based on the above, could you please provide further information regarding the stage of pressure ulce r/wound: stage 1 stage 2 stage 3 stage 4 unstageable Other (explain) Clinically unable to determine (explain) Thank you, Génesis Forman RN Use of terms such as suspected, likely, concern for, or probable (associated with a specific diagnosi s that is being evaluated, monitored, or treated as if it exists) are acceptable and can be coded in the inpatient se tting, when documented at the time of discharge. Please use your independent medical judgment in providing your response. THIS QUERY IS PART OF THE PERMANENT MEDICAL RECORD
--- NOTE | 2024-10-28 13:17 | P.CDIM_ITS ---
PROVIDER RESPONSE TEXT: To clarify, the appropriate diagnosis supported by the clinical indicators: Chronic Respiratory failure with hypoxia QUERY TEXT: PHYSICIAN'S DOCUMENTATION REQUEST Date of Query: 10/28/2024 08:34 AM EST Patient Name: Radhika Vaca Admit Date: 10/27/2024 Dear Christian Mujica MD, A review of the medical record indicates additional documentation may be needed. Please review below and update the documentation accordingly. Respiratory failure was documented on 10/27/24. Clinical Indicators: chronic respiratory failure d/t COPD , no exacerbation on home oxygen SATS 97-100 on 2L O2 If possible, please further clarify the type of respiratory failure: Chronic Respiratory failure with hypoxia Chronic Respiratory failure with hypercapnia Chronic Respiratory failure with hypoxia and hypercapnia Other (explain) Clinically unable to determine (explain) Thank you, Génesis Forman RN Use of terms such as suspected, likely, concern for, or probable (associated with a specific diagnosi s that is being evaluated, monitored, or treated as if it exists) are acceptable and can be coded in the inpatient se tting, when documented at the time of discharge. Please use your independent medical judgment in providing your response. THIS QUERY IS PART OF THE PERMANENT MEDICAL RECORD
--- NOTE | 2024-10-28 13:17 | P.CDIM_ITS ---
PROVIDER RESPONSE TEXT: To clarify, the appropriate diagnosis supported by the clinical indicators: Acute QUERY TEXT: PHYSICIAN'S DOCUMENTATION REQUEST Date of Query: 10/28/2024 08:33 AM EST Patient Name: Radhika Vaca Admit Date: 10/27/2024 Dear Christian Mujica MD, A review of the medical record indicates additional documentation may be needed. Please review below and update the documentation accordingly. Clinical Indicators: Per H&P: Metabolic acidosis--without GAP, likely Jardiance induced acidosis, -hold jardiance -check B-hydroxybutyrate Clarify which of the following accurately represents the acuity of the Metabolic Acidosis. Possible options might include: Acute Acute on chronic Compensated Chronic stable condition Remission Other (explain) Clinically unable to determine (explain) Thank you, Génesis Forman RN Use of terms such as suspected, likely, concern for, or probable (associated with a specific diagnosi s that is being evaluated, monitored, or treated as if it exists) are acceptable and can be coded in the inpatient se tting, when documented at the time of discharge. Please use your independent medical judgment in providing your response. THIS QUERY IS PART OF THE PERMANENT MEDICAL RECORD
--- NOTE | 2024-10-28 13:33 | HO.WOUND ---
Wound Consult: Initial 79yr old?female admitted to [facility] [place] on 10/27/24 - See progress notes and H&P for detailed history.? Wound consult placed for buttock wound POA.? Patient agreeable to assessment and photo documentation.? Sacrum Etiology: ??Currently Unstageable Pressure Injury previous admission documented as Deep tissue Injury in Evolution Present on Admission Measurements: 4.5cm x 4cm x 0.2cm Wound Bed: adherent pale slough with granulation buds noted Drainage / Odor: small amount of serosang Edges: ? irregular and attached Patria wound: ?MASD to perianal area dark maroon purple slow to blanchable tissue No Induration, Fluctuance or Warmth noted Pain: Pain noted Goals of Treatment: ? Off Load Pressure - Foam and Triad to protect from friction and moisture Right Heel - Intact red blanchable tissue however the patient reports significant pain to the heel and the pigmentation is bright red recommend preventative treatment of foam dressing and off loading heels from surface of bed with pillows. Left Heel Etiology: Deep tissue Injury Present on Admission Measurements: 0.2cm x 2cm x 0cm Wound Bed: intact dark purple nonblanchable tissue Drainage / Odor: None Edges: ? irregular and attached Patria wound: ? dark red slow to blanchable tissue No Induration, Fluctuance or Warmth noted Pain: Significant Pain noted Goals of Treatment: ? Off Load Pressure - Foam to protect from friction and aid in pressure redistribution Bilateral Lower Legs noted for venous dermatitis while at the bedside. no open wounds noted - recommend topical lotion or cream to soften thick scaling skin. Recommendations: 1. Turn and Reposition every 2 hours and as needed for patient comfort.? Use pillows or wedges to support off loading positions. 2. Off Load all bony prominences with use of pillows and heel boots if needed.? Apply Preventative foams where needed. ? 3. Monitor for incontinence and moisture control, use barrier creams when needed for prevention and treatment. 4. Provide adequate and supplemental nutrition.? 5. Order low air loss mattress. 6. When applicable maintain blood glucose levels per Providers order. 7. Sacrum - Off Load Pressure? - Cleanse with PH balance spray or wipes, pat dry. ?Apply thin layer of Triad to wound bed. Do not remove all of paste between applications as this may cause further skin damage.? Cover with foam dressing to aid in off loading and protection from friction. Change two days and PRN. 8. Bilateral Heels - Elevate heels off of bed with use of pillows. Apply skin prep to heels followed by foam dressings. Change every 3 days and PRN. Re-consult wound care Nurse for wound deterioration or wound changes.
[2024-10-28 14:11] LABS: Anion Gap 15 (12-20); Carbon Dioxide 18 mmol/L (22-29); Chloride 112 mmol/L (96-108); Potassium 4.5 mmol/L (3.3-5.1); Sodium 140 mmol/L (135-145)
[2024-10-28 14:24] VITALS: BMI 33.9
--- NOTE | 2024-10-28 14:27 | MHC.CLN ---
PT WITH INCREASED NUTRITION RISK R/T PRESSURE INJURY PO INTAKE 75% X 2 MEALS DIET RX: 1800DM-WILL INCREASE TO 2000DM D/T WOUND HEALING INCREASED NEEDS RECOMMEND ADDING ENSURE MAX BID TO PROMOTE WOUND HEALING SUPP TO PROVIDE 300KCALS, 60G PROTEIN MONITOR PO INTAKE AND ENCOURAGE SUPPLEMENTS SEE ALSO FULL CLINICAL NUTRITION ASSESSMENT
[2024-10-28 15:17] VITALS: BP 146/71; PULSE 78; RESP 18; TEMP 36.2; O2SAT 100
[2024-10-28 16:07] LABS: Glucose, Whole Blood 275 mg/dL (60-115)
--- NOTE | 2024-10-28 16:26 | P.CONNP_ITS ---
History of Present Illness Reason for Consult Consult date: 10/28/24 Chief Complaint Chief complaint: UTI, metabolic acidosis, marjorie History of Present Illness Narrative: 79-year-old female with COPD, HFpEF, HTN, HLD, insulin-dependent type 2 diabetes with neuropathy, CKD3, hypothyroidism, and mood disorder, who presented to ER with increasing pain from her coccyx wound. She denies fever, chills, or shortness of breath. Routine workup revealed a positive urinalysis, and she is being treated for a UTI. She has GNR in blood culture. However, she had increasing shortness of breath and dyspnea on exertion for the past 2?3 days, which worsened as well. W/U showed mild MARJORIE on CKD, a slightly elevated WBC, and a serum bicarbonate of 13 with no anion gap. Nephrology has been consulted to assist in her clinical care during her current hospital stay Review of Systems Review of Systems Yes all other systems are reviewed and are negative PMFSH Past Medical History Medical History Anemia Herpes zoster MARJORIE (acute kidney injury) Left bundle branch block Morbid obesity Chronic pain syndrome Anxiety Pernicious anemia COPD (chronic obstructive pulmonary disease) CHF (congestive heart failure) Hypothyroidism Essential hypertension Diabetes mellitus Pure hypercholesterolemia Family History Family History Father CVD (cardiovascular disease) Mother No problems noted. Family/Other FH: mental illness Surgical History Surgical History H/O left knee surgery Deficient knowledge of leg surgery History of tonsillectomy and adenoidectomy History of appendectomy Social History Social History Household Members: Children Housing: Apartment Do you presently have visiting nurse or other home services: No Alcohol intake: unknown Patient Tobacco Use Status: Former Tobacco user Tobacco use type: Cigarette e-Cigarette/Vaping Use: Never Used Second Hand Smoke Exposure: No Use of substances other than those prescribed or required for medical reasons: No Currently Displaying Signs/Symptoms of Drug Intoxication Withdrawal: No Have you been hit, kicked, punched, or otherwise hurt by someone within the past year? If so, by whom?: No Do you feel safe in your current relationship?: Yes Is there a partner from a previous relationship who is making you feel unsafe now?: No Are you made to feel afraid or neglected: No Jew Healthcare Practices: gnosticism Advance Directives: Yes Advance Directives on File: Yes Advance Directives Date on File: 06/24/24 Do you have a plan to hurt others: No Plan Recently lost weight without trying: Unsure Nutrition Risks: No Nutritional Risk Patient : No service: No Current occupational status: disabled Cognitive needs: Yes Hearing needs: No Vision needs: No Meds Allergies Allergy/AdvReac Type Severity Reaction Status Date / Time ibuprofen [From Motrin] Allergy Unknown swelling Verified 10/27/24 07:38 codeine [CODEINE] AdvReac Unknown SLEEPY Verified 10/27/24 07:38 Active Medications: Current Medications Acetaminophen (Acetaminophen 325 Mg Tablet) 650 mg PO Q6H PRN PRN Reason: Pain, Mild 1-3,fever,headache Last Admin: 10/27/24 20:30 Dose: 650 mg Albuterol Sulfate (Albuterol Sulfate 90 Mcg 8 Gm Inhaler) 2 puff INHALE Q6H PRN PRN Reason: shortness of breath or wheezing Albuterol/Ipratropium (Albuterol/Iprat 2.5/0.5mg 3 Ml Ampul.Neb) 3 ml INHALE Q4H PRN PRN Reason: shortness of breath or wheezing Last Admin: 10/28/24 11:13 Dose: 3 ml Atorvastatin Calcium (Atorvastatin Calcium 40 Mg Tablet) 40 mg PO BEDTIME [facility] Last Admin: 10/27/24 21:52 Dose: 40 mg Bumetanide (Bumetanide 1 Mg Tablet) 2 mg PO DAILY [facility]; Protocol Last Admin: 10/28/24 07:59 Dose: 2 mg Calcium Carbonate (Calcium Carbonate 750 Mg Tab.Chew) 750 mg PO Q4H PRN PRN Reason: Heartburn Ceftriaxone Sodium (Ceftriaxone Sodium 2 Gm Vial) 2 gm IVPUSH Q24H [facility] Last Admin: 10/28/24 11:19 Dose: 2 gm Duloxetine HCl (Duloxetine Hcl 20 Mg Capsule.Dr) 20 mg PO DAILY [facility] Last Admin: 10/28/24 07:59 Dose: 20 mg Glucose (Glucose Gel 15 Gm Gel..Gram.) 15 gm PO Q15M PRN; Protocol PRN Reason: per Hypoglycemia Standing Ord. Dextrose (D10) 250 mls @ 750 mls/hr IV Q15M PRN; Protocol PRN Reason: per Hypoglycemia Standing Ord. Sodium Bicarbonate 100 meq/ (Dextrose) 1,000 mls @ 50 mls/hr IV .Q20H [facility] Insulin Glargine (Insulin Glargine,Hum.Rec.Anlog 100 Unit/Ml 10 Ml Vial) 15 unit SUBCUT BEDTIME [facility] Last Admin: 10/27/24 21:52 Dose: 15 unit Insulin Human Lispro (Insulin Lispro 100 Unit/Ml 3 Ml Vial) 0 unit SUBCUT QIDACHS [facility]; Protocol Last Admin: 10/28/24 11:19 Dose: 6 unit Levothyroxine Sodium (Levothyroxine Sodium 200 Mcg Tablet) 200 mcg PO DAILY@0600 [facility] Last Admin: 10/28/24 06:23 Dose: 200 mcg Lorazepam (Lorazepam 0.5 Mg Tablet) 0.5 mg PO TID PRN PRN Reason: anxiety Last Admin: 10/27/24 21:52 Dose: 0.5 mg Magnesium Hydroxide (Milk Of Magnesia 30 Ml Oral.Susp) 30 ml PO DAILY PRN PRN Reason: Constipation Melatonin (Melatonin 3 Mg Tablet) 6 mg PO BEDTIME PRN PRN Reason: Insomnia Nystatin (Nystatin Powder 15 Gm Bottle) 1 appl TOPICAL BID [facility]; Protocol Last Admin: 10/27/24 21:53 Dose: Not Given Oxycodone HCl (Oxycodone Hcl Immed Release 5 Mg Tablet) 5 mg PO BID PRN PRN Reason: Pain, Severe (Pain Scale 7-10) Last Admin: 10/28/24 07:59 Dose: 5 mg Polyethylene Glycol (Polyethylene Glycol 3350 17 Gm Powd.Pack) 17 gm PO DAILY PRN PRN Reason: Constipation Sodium Bicarbonate (Sodium Bicarbonate 650 Mg Tablet) 1,300 mg PO BID [facility] Last Admin: 10/28/24 07:59 Dose: 1,300 mg Sodium Chloride (0.9 % Sodium Chloride Flush 3 Ml Syringe) [facility] Last Admin: 10/28/24 15:49 Dose: Not Given Home Medications ?Medication ?Instructions ?Recorded ?Confirmed ?Last Taken ?Type insulin glargine 100 unit/mL (3 15 unit subcut BEDTIME 08/10/27/24 10/27/24 09:00 History mL) subcutaneous pen (Basaglar KwikPen U-100 Insulin) levothyroxine 200 mcg tablet 200 mcg PO DAILY@0600 06/19/24 10/27/24 10/27/24 09:00 History oxycodone 5 mg tablet 5 mg PO BID PRN Pain, Severe (Pain 10/27/24 10/27/24 10/27/24 09:00 History Scale 7-10) Physical Exam Vital Signs: Last Vital Signs Temp 97.2 F 10/28/24 15:17 Pulse 78 10/28/24 15:17 Resp 18 10/28/24 15:17 BP 146/71 H 10/28/24 15:17 Pulse Ox 100 10/28/24 15:17 O2 Del Method Nasal Cannula 10/28/24 15:17 O2 Flow Rate 2 10/28/24 08:00 Oxygen Flow Rate 2 10/27/24 07:37 BMI result Body Mass Index 33.9 Const General: comfortable and no acute distress Orientation/consciousness: patient oriented x3 HEENT Head: Yes normocephalic Mouth: Normal oral and palatal mucosa present Eyes EOM: EOMs intact bilaterally Neck Neck: Yes supple Resp Auscultation: clear to auscultation bilaterally Cardio Jugular venous distension: no JVD Rate: regular rate GI Palpation (GI): Soft to palpation Auscultation: normal bowel sounds General: Yes no CVA tenderness Back/Spine/Pelvis Back: no CVA tenderness Skin General skin exam: no rashes or lesions noted Neuro General: patient oriented x3 and moves all extremities Results Lab Results 10/27/24 07:55 10/28/24 13:50 Lab results: Chemistry 10/27/24 10/27/24 10/28/24 08:24 16:32 05:23 Sodium 139 138 138 Potassium 4.9 4.5 4.3 Carbon Dioxide 13 L 12 L 12 L BUN 80 H 74 H 73 H Creatinine 2.80 H 2.81 H 2.61 H Calcium 8.7 D 8.3 L 8.4 10/28/24 13:50 Sodium 140 Potassium 4.5 Carbon Dioxide 18 L BUN Creatinine Calcium Hematology 10/27/24 07:55 WBC 12.2 H Hgb 11.2 L Plt Count 218 D Urinalysis 10/27/24 11:19 Urine Color Yellow Urine Appearance Turbid Urine pH 5.5 Ur Specific [place] 1.010 Urine Protein 300 (3+) H Urine Glucose (UA) 500 H Urine Ketones Trace Urine Blood Large (3+) H Urine Nitrite Negative Ur Leukocyte Esterase Large (3+) H Urine RBC 11-20 H Urine WBC >50 H Ur Squamous Epith Cells 0-2 Hyaline Casts 3-5 Assessment and Plan (1) Acute kidney injury superimposed on CKD: Status: Acute (2) Metabolic acidosis: Status: Acute Plan Has CKD at baseline; Metabolic acidosis multifactorial; Beta HB high Was on Jardiance- put on hold; Was given PO NaHCO3 last night; No indication for renal replacement Started IV NaHCO3 this AM; Renal function stable; C/W rest of current supportive care for now Procedures Date of Service Date of Service: 10/28/24
[2024-10-28] MEDS: Nystatin Powder 15 GM BOTTLE 1 APPL TOPICAL ×2 (16:55→21:51)
[2024-10-28 17:21] VITALS: PULSE 89; RESP 18; O2SAT 98
--- NOTE | 2024-10-28 17:35 | PM.UROCN ---
History of Present Illness Consult details Consult date: 10/28/24 Narrative: 79-year-old female with a past medical history significant for COPD, HFpEF, pernicious anemia, HTN, HLD, insulin-dependent type 2 diabetes with neuropathy, CKD3, hypothyroidism, and mood disorder, who presents with increasing pain from her coccyx wound. Routine workup revealed a positive urinalysis, and she is being treated for a UTI. Urology called to evaluate for gross hematuria. The patient is currently on CBI. CTAP notes bilateral hydronephrosis hydroureter to level of the bladder no urolithiasis noted. However bladder is distended at time of imaging.. Review of Systems Review of Systems: Yes all other systems are reviewed and are negative Constitutional: Constitutional: Reports no additional constitutional complaints Eyes: Eyes: Reports no additional eye complaints ENT: Reports system reviewed and no additional complaints, except as documented Cardiovascular: Cardiovascular: Reports no additional cardiovascular complaints Respiratory: Respiratory: Reports no additional respiratory complaints Gastrointestinal: Gastrointestinal: Reports no additional gastrointestinal complaints Genitourinary: Genitourinary: Reports as per HPI Musculoskeletal: Musculoskeletal: Reports no additional musculoskeletal complaints Integumentary/Breasts: Skin/Breast: Reports system reviewed and no additional complaints, except as docu Neurologic: Reports system reviewed and no additional complaints, except as documented Psychiatric: Psychiatric: Reports no additional psychiatric complaints Endocrine: Endocrine: Reports no additional endocrine complaints Hematologic/Lymphatic: Hematologic/Lymphatic: Reports no additional hematologic/lymphatic complaints Allergic/Immunologic: Allergic/Immunologic: Reports no additional allergic/immunologic complaints PMFSH Past Medical History Medical History Anemia Herpes zoster MARJORIE (acute kidney injury) Left bundle branch block Morbid obesity Chronic pain syndrome Anxiety Pernicious anemia COPD (chronic obstructive pulmonary disease) CHF (congestive heart failure) Hypothyroidism Essential hypertension Diabetes mellitus Pure hypercholesterolemia Family History Family History Father CVD (cardiovascular disease) Mother No problems noted. Family/Other FH: mental illness Surgical History Surgical History H/O left knee surgery Deficient knowledge of leg surgery History of tonsillectomy and adenoidectomy History of appendectomy Social History Social History Household Members: Children Housing: Apartment Do you presently have visiting nurse or other home services: No Alcohol intake: unknown Patient Tobacco Use Status: Former Tobacco user Tobacco use type: Cigarette e-Cigarette/Vaping Use: Never Used Second Hand Smoke Exposure: No Use of substances other than those prescribed or required for medical reasons: No Currently Displaying Signs/Symptoms of Drug Intoxication Withdrawal: No Have you been hit, kicked, punched, or otherwise hurt by someone within the past year? If so, by whom?: No Do you feel safe in your current relationship?: Yes Is there a partner from a previous relationship who is making you feel unsafe now?: No Are you made to feel afraid or neglected: No [facility] Practices: [facility]ahai Advance Directives: Yes Advance Directives on File: Yes Advance Directives Date on File: 06/24/24 Do you have a plan to hurt others: No Plan Recently lost weight without trying: Unsure Nutrition Risks: No Nutritional Risk Patient : No service: No Current occupational status: disabled Cognitive needs: Yes Hearing needs: No Vision needs: No Meds Allergies Allergy/AdvReac Type Severity Reaction Status Date / Time ibuprofen [From Motrin] Allergy Unknown swelling Verified 10/27/24 07:38 codeine [CODEINE] AdvReac Unknown SLEEPY Verified 10/27/24 07:38 Active Medications: Current Medications Acetaminophen (Acetaminophen 325 Mg Tablet) 650 mg PO Q6H PRN PRN Reason: Pain, Mild 1-3,fever,headache Last Admin: 10/27/24 20:30 Dose: 650 mg Albuterol Sulfate (Albuterol Sulfate 90 Mcg 8 Gm Inhaler) 2 puff INHALE Q6H PRN PRN Reason: shortness of breath or wheezing Albuterol/Ipratropium (Albuterol/Iprat 2.5/0.5mg 3 Ml Ampul.Neb) 3 ml INHALE Q4H PRN PRN Reason: shortness of breath or wheezing Last Admin: 10/28/24 17:21 Dose: 3 ml Atorvastatin Calcium (Atorvastatin Calcium 40 Mg Tablet) 40 mg PO BEDTIME [facility] Last Admin: 10/27/24 21:52 Dose: 40 mg Bumetanide (Bumetanide 1 Mg Tablet) 2 mg PO DAILY [facility]; Protocol Last Admin: 10/28/24 07:59 Dose: 2 mg Calcium Carbonate (Calcium Carbonate 750 Mg Tab.Chew) 750 mg PO Q4H PRN PRN Reason: Heartburn Ceftriaxone Sodium (Ceftriaxone Sodium 2 Gm Vial) 2 gm IVPUSH Q24H [facility] Last Admin: 10/28/24 11:19 Dose: 2 gm Duloxetine HCl (Duloxetine Hcl 20 Mg Capsule.Dr) 20 mg PO DAILY [facility] Last Admin: 10/28/24 07:59 Dose: 20 mg Glucose (Glucose Gel 15 Gm Gel..Gram.) 15 gm PO Q15M PRN; Protocol PRN Reason: per Hypoglycemia Standing Ord. Dextrose (D10) 250 mls @ 750 mls/hr IV Q15M PRN; Protocol PRN Reason: per Hypoglycemia Standing Ord. Sodium Bicarbonate 100 meq/ (Dextrose) 1,000 mls @ 50 mls/hr IV .Q20H [facility] Insulin Glargine (Insulin Glargine,Hum.Rec.Anlog 100 Unit/Ml 10 Ml Vial) 15 unit SUBCUT BEDTIME [facility] Last Admin: 10/27/24 21:52 Dose: 15 unit Insulin Human Lispro (Insulin Lispro 100 Unit/Ml 3 Ml Vial) 0 unit SUBCUT QIDACHS [facility]; Protocol Last Admin: 10/28/24 16:49 Dose: 6 unit Levothyroxine Sodium (Levothyroxine Sodium 200 Mcg Tablet) 200 mcg PO DAILY@0600 [facility] Last Admin: 10/28/24 06:23 Dose: 200 mcg Lorazepam (Lorazepam 0.5 Mg Tablet) 0.5 mg PO TID PRN PRN Reason: anxiety Last Admin: 10/27/24 21:52 Dose: 0.5 mg Magnesium Hydroxide (Milk Of Magnesia 30 Ml Oral.Susp) 30 ml PO DAILY PRN PRN Reason: Constipation Melatonin (Melatonin 3 Mg Tablet) 6 mg PO BEDTIME PRN PRN Reason: Insomnia Nystatin (Nystatin Powder 15 Gm Bottle) 1 appl TOPICAL BID [facility]; Protocol Last Admin: 10/28/24 16:55 Dose: 1 appl Oxycodone HCl (Oxycodone Hcl Immed Release 5 Mg Tablet) 5 mg PO BID PRN PRN Reason: Pain, Severe (Pain Scale 7-10) Last Admin: 10/28/24 07:59 Dose: 5 mg Polyethylene Glycol (Polyethylene Glycol 3350 17 Gm Powd.Pack) 17 gm PO DAILY PRN PRN Reason: Constipation Sodium Bicarbonate (Sodium Bicarbonate 650 Mg Tablet) 1,300 mg PO BID [facility] Last Admin: 10/28/24 07:59 Dose: 1,300 mg Sodium Chloride (0.9 % Sodium Chloride Flush 3 Ml Syringe) 3 ml IVFLUSH QSHIFT [facility] Last Admin: 10/28/24 15:49 Dose: Not Given Home Medications ?Medication ?Instructions ?Recorded ?Confirmed ?Last Taken ?Type insulin glargine 100 unit/mL (3 15 unit subcut BEDTIME 06/19/24 10/27/24 10/27/24 09:00 History mL) subcutaneous pen (Basaglar KwikPen U-100 Insulin) levothyroxine 200 mcg tablet 200 mcg PO DAILY@0600 06/19/24 10/27/24 10/27/24 09:00 History oxycodone 5 mg tablet 5 mg PO BID PRN Pain, Severe (Pain 10/27/24 10/27/24 10/27/24 09:00 History Scale 7-10) Physical Exam Vital Signs: Vital Signs: Last Vital Signs Temp 97.2 F 10/28/24 15:17 Pulse 89 10/28/24 17:21 Resp 18 10/28/24 17:21 BP 146/71 H 10/28/24 15:17 Pulse Ox 100 10/28/24 15:17 O2 Del Method Nasal Cannula 10/28/24 15:17 O2 Flow Rate 2 10/28/24 08:00 Oxygen Flow Rate 2 10/27/24 07:37 BMI result Body Mass Index 33.9 Const: General: cooperative, healthy appearing and no acute distress Orientation/consciousness: patient oriented x3 HEENT: Head: Yes normal to inspection, Yes normocephalic and Yes atraumatic Eyes: Conjunctivae: conjunctivae normal Neck: Neck: Yes normal visual inspection and Yes trachea midline Chest: Chest palpation & inspection: normal inspection of the chest Resp: Effort & Inspection: normal respiratory effort Cardio: Rate: regular rate GI: Inspection: Yes normal to inspection Palpation (GI): Soft to palpation : Other: Catheter in place on continuous bladder irrigation General: No no CVA tenderness Back/Spine/Pelvis: Back: No no CVA tenderness Neuro: General: patient oriented x3 Psych: Appearance: grossly normal Results Labs 10/27/24 07:55 10/28/24 13:50 Labs: Abnormal lab results 10/27/24 10/28/24 10/28/24 Range/Units 20:06 05:23 08:17 Chloride 112 H (96-108) mmol/L Carbon Dioxide 12 L (22-29) mmol/L BUN 73 H (9-16) mg/dL Creatinine 2.61 H (0.5-1.4) mg/dL POC Glucose 268 H 202 H (60-115) mg/dL Random Glucose 257 H (60-115) mg/dL 10/28/24 10/28/24 10/28/24 Range/Units 10:57 13:50 16:03 Chloride 112 H (96-108) mmol/L Carbon Dioxide 18 L (22-29) mmol/L BUN (9-16) mg/dL Creatinine (0.5-1.4) mg/dL POC Glucose 257 H 275 H (60-115) mg/dL Random Glucose (60-115) mg/dL BMP 10/28/24 10/28/24 05:23 13:50 Sodium 138 140 Potassium 4.3 4.5 Chloride 112 H 112 H Carbon Dioxide 12 L 18 L BUN 73 H Creatinine 2.61 H Calcium 8.4 Urine 10/27/24 Range/Units 11:19 Urine Color Yellow Urine Appearance Turbid Urine pH 5.5 (5.0-9.0) Ur Specific [place] 1.010 (1.005-1.025) Urine Protein 300 (3+) H (Neg-Trace) mg/dL Urine Glucose (UA) 500 H (Negative) mg/dL Imaging Additional studies: Date of Service: 10/27/24 EXAMINATION: CT ABDOMEN AND PELVIS WITHOUT CONTRAST CLINICAL INFORMATION: Sacral wound COMPARISON: CT abdomen and pelvis 11/10/2021 TECHNIQUE: Multidetector volumetric imaging was performed from the superior aspect of the liver through the pubic symphysis. Sagittal and coronal reformatted images were obtained on the technologist's workstation. This CT examination was performed using dose optimization techniques as appropriate, variously including the following: *Automated exposure control *Adjustment of mA and/or kV according to patient size (this includes techniques or standardized protocols for targeted exams where dose is matched to indication/reason for exam; i.e. extremities or head) *Use of iterative reconstruction technique DLP: 1040 mGy-cm FINDINGS: LUNG BASES: There is a platelike atelectasis or scarring left lung base. Dense mitral valve calcification is seen. LIVER, GALLBLADDER, AND BILIARY TREE: The liver is normal in size, shape, and attenuation. No focal hepatic lesion or biliary ductal dilatation is present. The gallbladder is distended with no evidence of radiopaque gallstones, gallbladder wall thickening, or obvious pericholecystic inflammatory changes. PANCREAS: Unremarkable. SPLEEN: Unremarkable. ADRENAL GLANDS: Unremarkable. KIDNEYS AND URETERS: Kidneys are normal size and shape for patient's age. There is diffuse cortical thinning without radiopaque calculi. There is a 1.7 cm exophytic cyst mid pole right kidney measuring 8 Hounsfield units. There is bilateral perinephric stranding more so on the right and left. There is moderate hydroureteronephrosis exiting all the way to the bladder with no obstructive etiology seen along the ureters. BLADDER: Bladder is minimally prominent. There is no bladder wall thickening or radiopaque calculi GASTROINTESTINAL TRACT: There is moderate scattered stool and gas seen in colon without distention. Mild thickening of rectal wall without pericolic fat stranding. Similar findings were seen on the previous study The small bowel loops are normal caliber. Appendix is not visualized there there is no free air or inflammatory process in the abdomen. ABDOMINAL WALL: A small umbilical hernia containing intraperitoneal fat is noted. LYMPH NODES: Normal. VASCULAR: There is mild atherosclerotic changes of abdominal aorta without aneurysmal dilatation. IVC is normal caliber. PELVIC VISCERA: Uterus is anteverted and appears unremarkable. There is no adnexal mass or free fluid. OSSEOUS STRUCTURES: There are degenerative disc changes with vacuum disc phenomena lower dorsal spine, L2-3, L4-5-5-S1 disc levels. No aggressive lytic or sclerotic process seen.- IMPRESSION: Bilateral hydroureteronephrosis without any obstructive etiology. Small simple exophytic cyst mid pole right kidney, stable Mild constipation without obstruction. Mild circumferential thickening of the rectal wall, stable. Small umbilical hernia containing intraperitoneal fat. Assessment and Plan (1) Acute kidney injury superimposed on CKD: Status: Acute (2) Urinary tract infection: Status: Acute (3) Hematuria: Status: Acute (4) Bilateral hydronephrosis: Status: Acute Plan Hematuria improving with continuous bladder irrigation. bilateral hydronephrosis hydroureter to level of the bladder no urolithiasis noted. However bladder is distended at time of imaging.. Patient denies flank pain. On IV antibiotics. Will monitor. Procedures Date of Service Date of Service: 10/28/24
[2024-10-28] MEDS: Acetaminophen 325 MG TABLET 650 MG PO (18:37)
--- NOTE | 2024-10-28 18:37 | PC.NURSE ---
late note entry form 10/27/24 @ 2030. patient had request to take Tylenol between oxycodone doses for additional pain relief. Tylenol was administered to patient per their request for a pain score of 10. patient had been administered oxycodone about 1 hour prior to tylenol which was to be administered for pain score of 10.
[2024-10-28 19:45] VITALS: BP 126/60; PULSE 88; RESP 18; TEMP 36.6; O2SAT 97
[2024-10-28 21:01] LABS: Glucose, Whole Blood 312 mg/dL (60-115)
[2024-10-28] MEDS: LORazepam 0.5 MG TABLET PO (21:47)
[2024-10-28] MEDS: Atorvastatin Calcium 40 MG TABLET PO (21:47)
[2024-10-28] MEDS: Insulin Glargine,Hum.rec.anlog 100 UNIT/ML 10 ML VIAL 15 UNIT SUBCUT (21:48)
[2024-10-29 03:33] VITALS: BP 146/64; PULSE 79; RESP 18; TEMP 36.6; O2SAT 100
[2024-10-29 07:21] VITALS: BP 156/66; PULSE 74; RESP 24; TEMP 36.2; O2SAT 96
[2024-10-29 07:31] LABS: Glucose, Whole Blood 219 mg/dL (60-115)
[2024-10-29] MEDS: Insulin Lispro 100 UNIT/ML 3 ML VIAL SUBCUT ×4 (07:43→21:39)
[2024-10-29] MEDS: Levothyroxine Sodium 200 MCG TABLET PO (07:44)
[2024-10-29] MEDS: DULoxetine HCl 20 MG CAPSULE.DR PO (07:44)
[2024-10-29] MEDS: Bumetanide 1 MG TABLET 2 MG PO (07:44)
[2024-10-29] MEDS: 0.9 % Sodium Chloride Flush 3 ML SYRINGE IVFLUSH (07:47)
[2024-10-29] MEDS: Nystatin Powder 15 GM BOTTLE 1 APPL TOPICAL ×2 (07:53→21:38)
[2024-10-29 08:02] LABS: Anion Gap 16 (12-20); Blood Urea Nitrogen 61 mg/dL (9-16); Calcium 8.4 mg/dL (8.4-10.2); Carbon Dioxide 20 mmol/L (22-29); Chloride 109 mmol/L (96-108); Creatinine Clr Calc Pharmacy 24.1; Estimated Glomerular Filt Rate 22; Glucose Random 254 mg/dL (60-115); Potassium 4.7 mmol/L (3.3-5.1); Sodium 140 mmol/L (135-145)
--- NOTE | 2024-10-29 09:09 | HO.PM.IMPN ---
Subjective Subjective Date of Service: 10/29/24 Interval History: She is overall feeling better, still with soreness on back from pressure ulcer, Review of Systems no fever Physical Exam Vital Signs: Vital Signs: Last Vital Signs Temp 97.1 F 10/29/24 07:21 Pulse 74 10/29/24 07:21 Resp 24 H 10/29/24 07:21 BP 156/66 H 10/29/24 07:21 Pulse Ox 96 10/29/24 07:21 O2 Del Method Nasal Cannula 10/29/24 07:21 O2 Flow Rate 2 10/29/24 07:21 Oxygen Flow Rate 2 10/27/24 07:37 BMI result Body Mass Index 33.9 Const: Other: General: AO X 3, no acute distress Resp: CTA bilateral CVS: S1,S2,RRR GI: +BS, NT, no distention Skin: No rash Neuro: motor grossly intact Psych: appropriate affect Objective Data Active Medications Acetaminophen (Acetaminophen 325 Mg Tablet) 650 mg PO Q6H PRN PRN Reason: Pain, Mild 1-3,fever,headache Last Admin: 10/28/24 18:37 Dose: 650 mg Documented By: JUAN CARLOS Albuterol Sulfate (Albuterol Sulfate 90 Mcg 8 Gm Inhaler) 2 puff INHALE Q6H PRN PRN Reason: shortness of breath or wheezing Albuterol/Ipratropium (Albuterol/Iprat 2.5/0.5mg 3 Ml Ampul.Neb) 3 ml INHALE Q4H PRN PRN Reason: shortness of breath or wheezing Last Admin: 10/28/24 17:21 Dose: 3 ml Documented By: PRABHA Atorvastatin Calcium (Atorvastatin Calcium 40 Mg Tablet) 40 mg PO BEDTIME [facility] Last Admin: 10/28/24 21:47 Dose: 40 mg Documented By: SALEEM Bumetanide (Bumetanide 1 Mg Tablet) 2 mg PO DAILY [facility]; Protocol Last Admin: 10/29/24 07:44 Dose: 2 mg Documented By: LISSA Calcium Carbonate (Calcium Carbonate 750 Mg Tab.Chew) 750 mg PO Q4H PRN PRN Reason: Heartburn Ceftriaxone Sodium (Ceftriaxone Sodium 2 Gm Vial) 2 gm IVPUSH Q24H [facility] Last Admin: 10/28/24 11:19 Dose: 2 gm Documented By: JUAN CARLOS Duloxetine HCl (Duloxetine Hcl 20 Mg Capsule.Dr) 20 mg PO DAILY [facility] Last Admin: 10/29/24 07:44 Dose: 20 mg Documented By: LISSA Glucose (Glucose Gel 15 Gm Gel..Gram.) 15 gm PO Q15M PRN; Protocol PRN Reason: per Hypoglycemia Standing Ord. Dextrose (D10) 250 mls @ 750 mls/hr IV Q15M PRN; Protocol PRN Reason: per Hypoglycemia Standing Ord. Insulin Glargine (Insulin Glargine,Hum.Rec.Anlog 100 Unit/Ml 10 Ml Vial) 15 unit SUBCUT BEDTIME [facility] Last Admin: 10/28/24 21:48 Dose: 15 unit Documented By: SALEEM Insulin Human Lispro (Insulin Lispro 100 Unit/Ml 3 Ml Vial) 0 unit SUBCUT QIDACHS [facility]; Protocol Last Admin: 10/29/24 07:43 Dose: 4 unit Documented By: LISSA Levothyroxine Sodium (Levothyroxine Sodium 200 Mcg Tablet) 200 mcg PO DAILY@0600 [facility] Last Admin: 10/29/24 07:44 Dose: 200 mcg Documented By: LISSA Lorazepam (Lorazepam 0.5 Mg Tablet) 0.5 mg PO TID PRN PRN Reason: anxiety Last Admin: 10/28/24 21:47 Dose: 0.5 mg Documented By: SALEEM Magnesium Hydroxide (Milk Of Magnesia 30 Ml Oral.Susp) 30 ml PO DAILY PRN PRN Reason: Constipation Melatonin (Melatonin 3 Mg Tablet) 6 mg PO BEDTIME PRN PRN Reason: Insomnia Nystatin (Nystatin Powder 15 Gm Bottle) 1 appl TOPICAL BID [facility]; Protocol Last Admin: 10/29/24 07:53 Dose: 1 appl Documented By: LISSA Oxycodone HCl (Oxycodone Hcl Immed Release 5 Mg Tablet) 5 mg PO BID PRN PRN Reason: Pain, Severe (Pain Scale 7-10) Last Admin: 10/28/24 21:47 Dose: 5 mg Documented By: SALEEM Polyethylene Glycol (Polyethylene Glycol 3350 17 Gm Powd.Pack) 17 gm PO DAILY PRN PRN Reason: Constipation Sodium Chloride (0.9 % Sodium Chloride Flush 3 Ml Syringe) 3 ml IVFLUSH QSHIFT [facility] Last Admin: 10/29/24 07:47 Dose: 3 ml Documented By: LISSA Labs 10/27/24 07:55 10/29/24 07:37 Labs: Laboratory Results - last 24 hr 10/28/24 10/28/24 10/28/24 10:57 13:50 16:03 Hold Purple Top Anion Gap 15 Estim Creat Clear Calc Estimated GFR POC Glucose 257 H 275 H Random Glucose Calcium 10/28/24 10/29/24 10/29/24 20:37 06:00 07:25 Hold Purple Top SEE NOTE Anion Gap Estim Creat Clear Calc Estimated GFR POC Glucose 312 H 219 H Random Glucose Calcium 10/29/24 07:37 Hold Purple Top Anion Gap 16 Estim Creat Clear Calc 24.1 Estimated GFR 22 POC Glucose Random Glucose 254 H Calcium 8.4 Microbiology Microbiology Results: Microbiology 10/27/24 10:07 Blood Culture - Preliminary Blood - Venous Gram negative eve 10/27/24 Unknown Urine Culture - Final Urine Catheterized - Francisco Catheter Escherichia coli 10/27/24 10:07 Blood Culture - Preliminary Blood - Venous No growth after 24 hours. Assessment and Plan (1) Hematuria: Status: Acute (2) Acute kidney injury superimposed on CKD: Status: Acute (3) Urinary tract infection: Status: Acute (4) Gram-negative bacteremia: Status: Acute Plan 79F PMH COPD on home O2, HFpEF, pernicious anemia, HTN, HLD insulin-dependent type 2 diabetes with neuropathy, CKD3, hypothyroidism, and mood disorder here with pain from pressure ulcer and incidental UTI, no speis, and acute on chronic renal failure complicated by metabolic acidosis Sore back from pressure ulcer --POA, no evidence of infection -wound care consult -frequent turning -and other nursng protocl Ecoli UTI, no sepsis, sensitive to ceftriaxone -continue Ceftriaxone GNR bacteremia, likely same source as uti -continue Ceftriaxone 2g daily, follow sensitivity Metabolic acidosis--without GAP, likely Jardiance induced acidosis, improved -hold jardiance -monitor, -hold bicab replacement and follow -Nephrology following Hydronephrosis MARJORIE on CKD4, stable -continue francisco -urology follwing Hematuria, likely traumatic Francisco -resolved, stop CBI, leave follow chronic respiratory failure d/t copd , no exacrebation -continue home inhalers -O2 to keep sat 88 to 92 chronic HFpEF, no exacerbation -continue home diuretic -hold jardiance because of metabolic acidosis COPD, no exacerbation HTN--in past was on Norvasc, but not on present med list -restart Norvasc at 5 HLD -statin Insulin-dependent type 2 diabetes Sliding scale insulin, Lantus stop jardiance as stated above Diabetic diet Full Code DVT Prophylaxis: Heparin Code: Full code Quality Stroke Does the patient have a stroke diagnosis?: No VTE Prior VTE?: No VTE Risk Level:: Medical - moderate - high VTE Device Contraindication: N/A - Device Ordered VTE Drug Contraindication: N/A - Med Ordered
--- NOTE | 2024-10-29 10:32 | PC.NURSE ---
Attempt IV x 2 with two RNs, unsuccessful. Primary RN notified.
[2024-10-29] MEDS: LORazepam 0.5 MG TABLET PO (10:57)
[2024-10-29 11:31] LABS: Glucose, Whole Blood 271 mg/dL (60-115)
[2024-10-29] MEDS: Acetaminophen 325 MG TABLET 650 MG PO (14:49)
[2024-10-29 15:11] VITALS: PULSE 74; RESP 24; O2SAT 95
[2024-10-29] MEDS: Albuterol/Iprat 2.5/0.5MG 3 ML AMPUL.NEB INHALE (15:11)
[2024-10-29 15:15] VITALS: BP 143/65; PULSE 91; RESP 18; TEMP 36.2; O2SAT 97
[2024-10-29 16:17] LABS: Glucose, Whole Blood 349 mg/dL (60-115)
[2024-10-29] MEDS: oxyCODONE HCl Immed Release 5 MG TABLET PO (17:07)
--- NOTE | 2024-10-29 17:56 | PC.NURSE ---
Unable to get IV Access earlier. Reach out to US MONITORING SPECIALIST, she is unable to place line due to acuity of ICU. Attempt to reach out to RN on S4 to place line. updated.
[2024-10-29] MEDS: levoFLOXacin 500 MG TABLET PO (18:03)
--- NOTE | 2024-10-29 18:06 | PC.NURSE ---
Clin Sup notified that patient doesn't have access. Possibly a staff member on overnights can attempt IV line.
--- NOTE | 2024-10-29 18:13 | PC.NURSE ---
1030a notified MD that patients IV was leaking and that multiple nurses attempted to place a new one without success. Notified that asked ICU nurse to place ultrasound guided IV but that she is very busy and could not confirm if she had time. at 220p notified MD that patient anxious that IV still not placed and asking for something other than Ativan for anxiety. MD notified that multiple nurses were asked to place ultrasound guided IV at 6p and that neither are able to do it. Also reminded that patient never received IV abx and PO abx prescribed and administered by nurse.
[2024-10-29 19:40] VITALS: BP 120/56; PULSE 85; RESP 17; TEMP 36.1; O2SAT 95
[2024-10-29 20:17] LABS: Glucose, Whole Blood 407 mg/dL (60-115)
[2024-10-29] MEDS: Atorvastatin Calcium 40 MG TABLET PO (21:39)
[2024-10-29] MEDS: Insulin Glargine,Hum.rec.anlog 100 UNIT/ML 10 ML VIAL 15 UNIT SUBCUT (21:39)
[2024-10-30] MEDS: Albuterol Sulfate 90 MCG 8 GM INHALER 2 PUFF INHALE (01:44)
[2024-10-30] MEDS: LORazepam 0.5 MG TABLET PO ×3 (01:45→21:12)
[2024-10-30 02:52] VITALS: BP 137/63; PULSE 85; RESP 19; TEMP 36.1; O2SAT 95
[2024-10-30] MEDS: oxyCODONE HCl Immed Release 5 MG TABLET PO ×3 (04:02→21:44)
[2024-10-30] MEDS: Levothyroxine Sodium 200 MCG TABLET PO (07:15)
[2024-10-30 07:17] VITALS: BP 142/65; PULSE 81; RESP 18; TEMP 36.7; O2SAT 96
[2024-10-30 07:29] LABS: Anion Gap 17 (12-20); Blood Urea Nitrogen 66 mg/dL (9-16); Calcium 7.9 mg/dL (8.4-10.2); Carbon Dioxide 19 mmol/L (22-29); Chloride 103 mmol/L (96-108); Creatinine Clr Calc Pharmacy 26.8; Estimated Glomerular Filt Rate 25; Potassium 4.4 mmol/L (3.3-5.1); Sodium 135 mmol/L (135-145)
[2024-10-30 07:36] LABS: Glucose Random 372 mg/dL (60-115)
[2024-10-30 07:40] LABS: Glucose, Whole Blood 321 mg/dL (60-115)
[2024-10-30] MEDS: Insulin Lispro 100 UNIT/ML 3 ML VIAL SUBCUT ×7 (07:41→21:12)
[2024-10-30] MEDS: 0.9 % Sodium Chloride Flush 3 ML SYRINGE IVFLUSH ×2 (07:41→16:48)
[2024-10-30] MEDS: DULoxetine HCl 20 MG CAPSULE.DR PO (08:30)
[2024-10-30] MEDS: Bumetanide 1 MG TABLET 2 MG PO (08:30)
--- NOTE | 2024-10-30 09:24 | HO.PM.IMPN ---
Subjective Subjective Date of Service: 10/30/24 Interval History: No new issues, blood culture and urine growing e coli creatine is better Review of Systems no fever Physical Exam Vital Signs: Vital Signs: Last Vital Signs Temp 98.1 F 10/30/24 07:17 Pulse 81 10/30/24 07:17 Resp 18 10/30/24 07:17 BP 142/65 H 10/30/24 07:17 Pulse Ox 96 10/30/24 07:17 O2 Del Method Nasal Cannula 10/30/24 07:17 O2 Flow Rate 2.0 10/30/24 07:17 Oxygen Flow Rate 2 10/27/24 07:37 BMI result Body Mass Index 33.9 Const: Other: General: AO X 3, no acute distress Resp: CTA bilateral CVS: S1,S2,RRR GI: +BS, NT, no distention Skin: see pressure ulcer from earlier documentation Neuro: motor grossly intact Psych: appropriate affect Objective Data Active Medications Acetaminophen (Acetaminophen 325 Mg Tablet) 650 mg PO Q6H PRN PRN Reason: Pain, Mild 1-3,fever,headache Last Admin: 10/29/24 14:49 Dose: 650 mg Documented By: ILSSA Albuterol Sulfate (Albuterol Sulfate 90 Mcg 8 Gm Inhaler) 2 puff INHALE Q6H PRN PRN Reason: shortness of breath or wheezing Last Admin: 10/30/24 01:44 Dose: 2 puff Documented By: GUIDO Albuterol/Ipratropium (Albuterol/Iprat 2.5/0.5mg 3 Ml Ampul.Neb) 3 ml INHALE Q4H PRN PRN Reason: shortness of breath or wheezing Last Admin: 10/29/24 15:11 Dose: 3 ml Documented By: RADHA Atorvastatin Calcium (Atorvastatin Calcium 40 Mg Tablet) 40 mg PO BEDTIME [facility] Last Admin: 10/29/24 21:39 Dose: 40 mg Documented By: GUIDO Bumetanide (Bumetanide 1 Mg Tablet) 2 mg PO DAILY [facility]; Protocol Last Admin: 10/30/24 08:30 Dose: 2 mg Documented By: JIE Calcium Carbonate (Calcium Carbonate 750 Mg Tab.Chew) 750 mg PO Q4H PRN PRN Reason: Heartburn Ceftriaxone Sodium (Ceftriaxone Sodium 2 Gm Vial) 2 gm IVPUSH Q24H [facility] Last Admin: 10/29/24 18:22 Dose: Not Given Documented By: LISSA Non-Admin Reason: No Access Duloxetine HCl (Duloxetine Hcl 20 Mg Capsule.) 20 mg PO DAILY [facility] Last Admin: 10/30/24 08:30 Dose: 20 mg Documented By: JIE Glucose (Glucose Gel 15 Gm Gel..Gram.) 15 gm PO Q15M PRN; Protocol PRN Reason: per Hypoglycemia Standing Ord. Dextrose (D10) 250 mls @ 750 mls/hr IV Q15M PRN; Protocol PRN Reason: per Hypoglycemia Standing Ord. Insulin Glargine (Insulin Glargine,Hum.Rec.Anlog 100 Unit/Ml 10 Ml Vial) 15 unit SUBCUT BEDTIME [facility] Last Admin: 10/29/24 21:39 Dose: 15 unit Documented By: GUIDO Insulin Human Lispro (Insulin Lispro 100 Unit/Ml 3 Ml Vial) 0 unit SUBCUT QIDACHS [facility]; Protocol Last Admin: 10/30/24 07:41 Dose: 10 unit Documented By: JIE Levothyroxine Sodium (Levothyroxine Sodium 200 Mcg Tablet) 200 mcg PO DAILY@0600 [facility] Last Admin: 10/30/24 07:15 Dose: 200 mcg Documented By: JIE Lorazepam (Lorazepam 0.5 Mg Tablet) 0.5 mg PO TID PRN PRN Reason: anxiety Last Admin: 10/30/24 01:45 Dose: 0.5 mg Documented By: GUIDO Magnesium Hydroxide (Milk Of Magnesia 30 Ml Oral.Susp) 30 ml PO DAILY PRN PRN Reason: Constipation Melatonin (Melatonin 3 Mg Tablet) 6 mg PO BEDTIME PRN PRN Reason: Insomnia Nystatin (Nystatin Powder 15 Gm Bottle) 1 appl TOPICAL BID [facility]; Protocol Last Admin: 10/29/24 21:38 Dose: 1 appl Documented By: GUIDO Oxycodone HCl (Oxycodone Hcl Immed Release 5 Mg Tablet) 5 mg PO BID PRN PRN Reason: Pain, Severe (Pain Scale 7-10) Last Admin: 10/30/24 04:02 Dose: 5 mg Documented By: GUIDO Polyethylene Glycol (Polyethylene Glycol 3350 17 Gm Powd.Pack) 17 gm PO DAILY PRN PRN Reason: Constipation Sodium Chloride (0.9 % Sodium Chloride Flush 3 Ml Syringe) 3 ml IVFLUSH QSHIFT [facility] Last Admin: 10/30/24 07:41 Dose: 3 ml Documented By: JIE Labs 10/27/24 07:55 10/30/24 05:49 Labs: Laboratory Results - last 24 hr 10/29/24 10/29/24 10/29/24 11:14 16:09 20:11 Hold Purple Top Anion Gap Estim Creat Clear Calc Estimated GFR POC Glucose 271 H 349 H 407 H* Random Glucose Calcium 10/30/24 10/30/24 05:49 07:20 Hold Purple Top SEE NOTE Anion Gap 17 Estim Creat Clear Calc 26.8 Estimated GFR 25 POC Glucose 321 H Random Glucose 372 H* Calcium 7.9 L Microbiology Microbiology Results: Microbiology 10/27/24 10:07 Blood Culture - Preliminary Blood - Venous Escherichia coli 10/27/24 10:07 Blood Culture - Preliminary Blood - Venous No growth after 48 hours. 10/27/24 Unknown Urine Culture - Final Urine Catheterized - Francisco Catheter Escherichia coli Assessment and Plan (1) Hematuria: Status: Acute (2) Acute kidney injury superimposed on CKD: Status: Acute (3) Urinary tract infection: Status: Acute (4) Gram-negative bacteremia: Status: Acute Plan 79F PMH COPD on home O2, HFpEF, pernicious anemia, HTN, HLD insulin-dependent type 2 diabetes with neuropathy, CKD3, hypothyroidism, and mood disorder here with pain from pressure ulcer and incidental UTI, no speis, and acute on chronic renal failure complicated by metabolic acidosis Sore back from pressure ulcer --POA, no evidence of infection -wound care consult -frequent turning per nursing protocol Ecoli UTI and Bacteremia, no sepsis, sensitive to ceftriaxone -continue Ceftriaxone and change to Ceftin at DC Metabolic acidosis--without GAP, likely Jardiance induced acidosis, improved -hold jardiance -monitor, -hold bicab replacement and follow -Nephrology following Hydronephrosis MARJORIE on CKD4, stable -continue francisco -urology follwing Hematuria, likely traumatic Francisco -resolved, stop CBI, leave follow chronic respiratory failure d/t copd , no exacrebation -continue home inhalers -O2 to keep sat 88 to 92 chronic HFpEF, no exacerbation -continue home diuretic -hold jardiance because of metabolic acidosis COPD, no exacerbation HTN--in past was on Norvasc, but not on present med list -restart Norvasc at 5 HLD -statin Insulin-dependent type 2 diabetes with hyperglycemia Sliding scale insulin, increase lantus 15 to 20, add 5 unit pre meal insulin (for sugars >200) stop jardiance as stated above Diabetic diet Full Code DVT Prophylaxis: Heparin Code: Full code Quality Stroke Does the patient have a stroke diagnosis?: No VTE Prior VTE?: No VTE Risk Level:: Medical - moderate - high VTE Device Contraindication: N/A - Device Ordered VTE Drug Contraindication: N/A - Med Ordered
[2024-10-30] MEDS: Albuterol/Iprat 2.5/0.5MG 3 ML AMPUL.NEB INHALE ×2 (11:19→17:41)
[2024-10-30 11:31] VITALS: PULSE 83; RESP 18; O2SAT 95
[2024-10-30 11:37] LABS: Glucose, Whole Blood 280 mg/dL (60-115)
[2024-10-30] MEDS: cefTRIAXone sodium 2 GM VIAL IVPUSH (12:33)
[2024-10-30] MEDS: Acetaminophen 325 MG TABLET 650 MG PO (12:47)
[2024-10-30 15:58] VITALS: BP 130/59; PULSE 91; RESP 16; TEMP 36.3; O2SAT 96
[2024-10-30 16:33] LABS: Glucose, Whole Blood 309 mg/dL (60-115)
[2024-10-30 17:42] VITALS: PULSE 87; RESP 18; O2SAT 94
[2024-10-30 19:30] VITALS: BP 127/59; PULSE 84; RESP 18; TEMP 36.3; O2SAT 96
[2024-10-30 20:21] LABS: Glucose, Whole Blood 355 mg/dL (60-115)
[2024-10-30] MEDS: Atorvastatin Calcium 40 MG TABLET PO (21:12)
[2024-10-30] MEDS: Insulin Glargine,Hum.rec.anlog 100 UNIT/ML 10 ML VIAL 20 UNIT SUBCUT (21:13)
[2024-10-30] MEDS: Nystatin Powder 15 GM BOTTLE 1 APPL TOPICAL (21:55)
[2024-10-31 04:00] VITALS: BP 131/58; PULSE 86; RESP 18; TEMP 36.8; O2SAT 98
[2024-10-31] MEDS: oxyCODONE HCl Immed Release 5 MG TABLET PO ×3 (05:33→18:36)
[2024-10-31] MEDS: Levothyroxine Sodium 200 MCG TABLET PO (05:33)
[2024-10-31 07:10] VITALS: BP 145/63; PULSE 72; RESP 16; TEMP 37.2; O2SAT 98
[2024-10-31 07:30] LABS: Glucose, Whole Blood 201 mg/dL (60-115)
[2024-10-31] MEDS: 0.9 % Sodium Chloride Flush 3 ML SYRINGE IVFLUSH ×2 (07:57→16:35)
[2024-10-31] MEDS: Insulin Lispro 100 UNIT/ML 3 ML VIAL SUBCUT ×5 (07:57→21:12)
[2024-10-31] MEDS: Bumetanide 1 MG TABLET 2 MG PO (07:58)
[2024-10-31] MEDS: DULoxetine HCl 20 MG CAPSULE.DR PO (07:58)
--- NOTE | 2024-10-31 08:39 | P.PNNP_ITS ---
Subjective Subjective Date of Service: 10/31/24 Interval history: Events noted Physical Exam 2 Vital Signs: Vital Signs: Last Vital Signs Temp 98.9 F 10/31/24 07:10 Pulse 72 10/31/24 07:10 Resp 16 10/31/24 07:10 BP 145/63 H 10/31/24 07:10 Pulse Ox 98 10/31/24 07:10 O2 Del Method Nasal Cannula 10/31/24 07:10 O2 Flow Rate 2 10/31/24 07:10 Oxygen Flow Rate 2 10/27/24 07:37 BMI result Body Mass Index 33.9 Const: General: comfortable and no acute distress O rientation/consciousness: patient oriented x3 HEENT: Head: Yes normocephalic Mouth: Normal oral and palatal mucosa present Eyes: EOM: EOMs intact bilaterally Neck: Neck: Yes supple Resp: Auscultation: clear to auscultation bilaterally Cardio: Jugular venous distension: no JVD Rate: regular rate GI: Palpation (GI): Soft to palpation Auscultation: normal bowel sounds : General: Yes no CVA tenderness Back/Spine/Pelvis: Back: no CVA tenderness Skin: General skin exam: no rashes or lesions noted Neuro: General: patient oriented x3 and moves all extremities Objective Data Labs 10/27/24 07:55 10/30/24 05:49 Labs: Laboratory Results - last 24 hr 10/30/24 10/30/24 10/30/24 11:33 16:29 20:16 POC Glucose 280 H 309 H 355 H* 10/31/24 07:15 POC Glucose 201 H Microbiology Microbiology Results: Microbiology 10/27/24 10:07 Blood - Venous Blood Culture - Preliminary Escherichia coli 10/27/24 10:07 Blood - Venous Blood Culture - Preliminary No growth after 48 hours. 10/27/24 Unknown Urine Catheterized - Moyer Catheter Urine Culture - Final Escherichia coli Procedures Date of Service Date of Service: 10/31/24 Assessment & Plan Assessment and plan (1) Acute kidney injury superimposed on CKD: Status: Acute (2) Metabolic acidosis: Status: Acute Plan MARJORIE superimposed on CKD MARJORIE due to obstructive uropathy with a component of volume depletion/hypoperfusion E.Coli Urosepsis Cr is marginally improving Metabolic acidosis multifactorial; Beta HB high Was on Jardiance- put on hold; Was given PO NaHCO3 last night; No indication for renal replacement Renal function stable; C/W rest of current supportive care for now Time Spent With Patient Time: Total time managing care of this patient today ____ minutes. Progress Note: Quality Stroke Does the patient have a stroke diagnosis?: No
[2024-10-31 08:41] VITALS: PULSE 72; RESP 16; O2SAT 95
[2024-10-31] MEDS: Albuterol/Iprat 2.5/0.5MG 3 ML AMPUL.NEB INHALE ×2 (08:41→19:44)
--- NOTE | 2024-10-31 09:19 | HO.PM.IMPN ---
Subjective Subjective Date of Service: 10/31/24 Interval History: No new issues, blood culture and urine growing e coli she is reporting her pain is better and overall is feeling better Review of Systems no fever Physical Exam Vital Signs: Vital Signs: Last Vital Signs Temp 98.9 F 10/31/24 07:10 Pulse 72 10/31/24 08:41 Resp 16 10/31/24 08:41 BP 145/63 H 10/31/24 07:10 Pulse Ox 98 10/31/24 07:10 O2 Del Method Nasal Cannula 10/31/24 07:10 O2 Flow Rate 2 10/31/24 07:10 Oxygen Flow Rate 2 10/27/24 07:37 BMI result Body Mass Index 33.9 Const: Other: General: AO X 3, no acute distress Resp: CTA bilateral CVS: S1,S2,RRR GI: +BS, NT, no distention Skin: see pressure ulcer from earlier documentation Neuro: motor grossly intact Psych: appropriate affect Objective Data Active Medications Acetaminophen (Acetaminophen 325 Mg Tablet) 650 mg PO Q6H PRN PRN Reason: Pain, Mild 1-3,fever,headache Last Admin: 10/30/24 12:47 Dose: 650 mg Documented By: JIE Albuterol Sulfate (Albuterol Sulfate 90 Mcg 8 Gm Inhaler) 2 puff INHALE Q6H PRN PRN Reason: shortness of breath or wheezing Last Admin: 10/30/24 01:44 Dose: 2 puff Documented By: GUIDO Albuterol/Ipratropium (Albuterol/Iprat 2.5/0.5mg 3 Ml Ampul.Neb) 3 ml INHALE Q4H PRN PRN Reason: shortness of breath or wheezing Last Admin: 10/31/24 08:41 Dose: 3 ml Documented By: RADHA Atorvastatin Calcium (Atorvastatin Calcium 40 Mg Tablet) 40 mg PO BEDTIME [facility] Last Admin: 10/30/24 21:12 Dose: 40 mg Documented By: LUIS Bumetanide (Bumetanide 1 Mg Tablet) 2 mg PO DAILY [facility]; Protocol Last Admin: 10/31/24 07:58 Dose: 2 mg Documented By: MARV Calcium Carbonate (Calcium Carbonate 750 Mg Tab.Chew) 750 mg PO Q4H PRN PRN Reason: Heartburn Ceftriaxone Sodium (Ceftriaxone Sodium 2 Gm Vial) 2 gm IVPUSH Q24H [facility] Last Admin: 10/30/24 12:33 Dose: 2 gm Documented By: JIE Duloxetine HCl (Duloxetine Hcl 20 Mg Capsule.Dr) 20 mg PO DAILY [facility] Last Admin: 10/31/24 07:58 Dose: 20 mg Documented By: MARV Glucose (Glucose Gel 15 Gm Gel..Gram.) 15 gm PO Q15M PRN; Protocol PRN Reason: per Hypoglycemia Standing Ord. Dextrose (D10) 250 mls @ 750 mls/hr IV Q15M PRN; Protocol PRN Reason: per Hypoglycemia Standing Ord. Insulin Glargine (Insulin Glargine,Hum.Rec.Anlog 100 Unit/Ml 10 Ml Vial) 20 unit SUBCUT BEDTIME [facility] Last Admin: 10/30/24 21:13 Dose: 20 unit Documented By: LUIS Insulin Human Lispro (Insulin Lispro 100 Unit/Ml 3 Ml Vial) 0 unit SUBCUT QIDACHS [facility]; Protocol Last Admin: 10/31/24 07:57 Dose: 4 unit Documented By: MARV Insulin Human Lispro (Insulin Lispro 100 Unit/Ml 3 Ml Vial) 5 unit SUBCUT QIDACHS [facility] Last Admin: 10/31/24 07:57 Dose: 5 unit Documented By: MARV Levothyroxine Sodium (Levothyroxine Sodium 200 Mcg Tablet) 200 mcg PO DAILY@0600 [facility] Last Admin: 10/31/24 05:33 Dose: 200 mcg Documented By: JENARO Lorazepam (Lorazepam 0.5 Mg Tablet) 0.5 mg PO TID PRN PRN Reason: anxiety Last Admin: 10/30/24 21:12 Dose: 0.5 mg Documented By: LUIS Magnesium Hydroxide (Milk Of Magnesia 30 Ml Oral.Susp) 30 ml PO DAILY PRN PRN Reason: Constipation Melatonin (Melatonin 3 Mg Tablet) 6 mg PO BEDTIME PRN PRN Reason: Insomnia Nystatin (Nystatin Powder 15 Gm Bottle) 1 appl TOPICAL BID [facility]; Protocol Last Admin: 10/30/24 21:55 Dose: 1 appl Documented By: LUIS Oxycodone HCl (Oxycodone Hcl Immed Release 5 Mg Tablet) 5 mg PO Q6H PRN PRN Reason: Pain, Severe (Pain Scale 7-10) Last Admin: 10/31/24 05:33 Dose: 5 mg Documented By: JENARO Polyethylene Glycol (Polyethylene Glycol 3350 17 Gm Powd.Pack) 17 gm PO DAILY PRN PRN Reason: Constipation Sodium Chloride (0.9 % Sodium Chloride Flush 3 Ml Syringe) 3 ml IVFLUSH QSHIFT [facility] Last Admin: 10/31/24 07:57 Dose: 3 ml Documented By: MARV Labs 10/27/24 07:55 10/30/24 05:49 Labs: Laboratory Results - last 24 hr 10/30/24 10/30/24 10/30/24 11:33 16:29 20:16 POC Glucose 280 H 309 H 355 H* 10/31/24 07:15 POC Glucose 201 H Microbiology Microbiology Results: Microbiology 10/27/24 10:07 Blood Culture - Preliminary Blood - Venous Escherichia coli Assessment and Plan (1) Hematuria: Status: Acute (2) Acute kidney injury superimposed on CKD: Status: Acute (3) Urinary tract infection: Status: Acute (4) Gram-negative bacteremia: Status: Acute Plan 79F PMH COPD on home O2, HFpEF, pernicious anemia, HTN, HLD insulin-dependent type 2 diabetes with neuropathy, CKD3, hypothyroidism, and mood disorder here with pain from pressure ulcer and incidental UTI, no speis, and acute on chronic renal failure complicated by metabolic acidosis Sore back from pressure ulcer --POA, no evidence of infection -wound care consult -frequent turning per nursing protocol Ecoli UTI and Bacteremia, no sepsis, sensitive to ceftriaxone -continue Ceftriaxone and change to Ceftin at DC probably for 14 days, check with ID Metabolic acidosis--without GAP, likely Jardiance induced acidosis, improved -hold jardiance -monitor, -hold bicab replacement and follow -Nephrology following Hydronephrosis MARJORIE on CKD4, stable -continue francisco -urology follwing Hematuria, likely traumatic Francisco -resolved, stoped CBI, leave francisco for now for skin, uro following chronic respiratory failure d/t copd , no exacrebation -continue home inhalers -O2 to keep sat 88 to 92 chronic HFpEF, no exacerbation -continue home diuretic -hold jardiance because of metabolic acidosis COPD, no exacerbation HTN--in past was on Norvasc, but not on present med list -restart Norvasc at 5 HLD -statin Insulin-dependent type 2 diabetes with hyperglycemia Sliding scale insulin, increase lantus 20, add 5 unit pre meal insulin (for sugars >200) stop jardiance as stated above Diabetic diet Full Code DVT Prophylaxis: Heparin PT eval for possible rehab, she is open to this Code: Full code Quality Stroke Does the patient have a stroke diagnosis?: No VTE Prior VTE?: No VTE Risk Level:: Medical - moderate - high VTE Device Contraindication: N/A - Device Ordered VTE Drug Contraindication: N/A - Med Ordered
[2024-10-31 09:20] LABS: Anion Gap 16 (12-20); Blood Urea Nitrogen 74 mg/dL (9-16); Carbon Dioxide 19 mmol/L (22-29); Chloride 106 mmol/L (96-108); Creatinine Clr Calc Pharmacy 18.6; Estimated Glomerular Filt Rate 16; Glucose Random 219 mg/dL (60-115); Potassium 4.3 mmol/L (3.3-5.1); Sodium 137 mmol/L (135-145)
[2024-10-31 09:29] LABS: Calcium 8.7 mg/dL (8.4-10.2)
--- NOTE | 2024-10-31 11:07 | MHC.CLN ---
F/U DIET=DIAB 2000 KCAL. SUPPLEMENT ENSURE MAX BID PROVIDES 300 KCALS, 60 G PROTEIN. INTAKE AT MEALS 75-100%. STAGE II PRESSURE INJURY TO RIGHT BUTTOCKS. SUPPLEMENT TO PROMOTE WOUND HEALING. MONITOR PO INTAKE AND ENCOURAGE SUPPLEMENTS.
[2024-10-31 11:30] LABS: Glucose, Whole Blood 164 mg/dL (60-115)
[2024-10-31] MEDS: cefTRIAXone sodium 2 GM VIAL IVPUSH (11:50)
[2024-10-31] MEDS: Nystatin Powder 15 GM BOTTLE 1 APPL TOPICAL ×2 (11:58→21:17)
--- NOTE | 2024-10-31 13:38 | PC.NURSE ---
pt refused francisco removal, stated that pure wick irritates her. eduated pt. MD Mujica notified.
[2024-10-31 15:36] VITALS: BP 138/80; PULSE 79; RESP 18; TEMP 36.5; O2SAT 95
--- NOTE | 2024-10-31 16:08 | MHC.CM.PN ---
PT INITIALLY STATING SHE WANTED TO GO TO [facility], [facility] WAS OFFERING A BED HOWEVER PT IS NOW IN THE COPAY DAYS OF HER MEDICARE THEREFORE, SHE WOULD HAVE A COPAY OF $200+ PER DAY CM SPOKE TO PTS SON, EVGENY [phone] WHO STATES THEY DO NOT HAVE THAT MONEY AND ASKS IF SHE WOULD BE OK TO DC HOME CM UNABLE TO DETERMINE PTS SAFETY SHE DID NOT PARTICIPATE WITH PT TODAY PER DISCUSSION, CM WILL FOLLOW UP WITH PTS SON AFTER PtS PT EVAL TOMORROW CM MET WITH PT AND INFORMED HER OF THE COPAY, SHE ALSO STATES THEY CANNOT PAY THIS PT STATES SHE UNDERSTANDS IT IS IMPORTANT TO WORK WITH PT AND WILL WHEN THEY RETURN TOMORROW
[2024-10-31 16:09] LABS: Glucose, Whole Blood 196 mg/dL (60-115)
--- NOTE | 2024-10-31 16:21 | P.CNID_ITS ---
History of Present Illness Data of Consult Service Date: 10/31/24 [facility] Primary Care Provider: Neida Soto MD HPI Reason for consult: sepsis, Ecoli,tachycardia and leukocytosis She presents with weakness and concern over sacral decub and she also has urinary retetention. She has COPD and HTN. On arrival 10/27 blood and urine cultures show E coli. She has no fever or chills . She has mild bilateral hydronephrosis. Review of Systems 2 Review of Systems: Yes Unobtainable due to mental condition PMFSH Past Medical History Medical History Anemia Herpes zoster MARJORIE (acute kidney injury) Left bundle branch block Morbid obesity Chronic pain syndrome Anxiety Pernicious anemia COPD (chronic obstructive pulmonary disease) CHF (congestive heart failure) Hypothyroidism Essential hypertension Diabetes mellitus Pure hypercholesterolemia Family History Family History Father CVD (cardiovascular disease) Mother No problems noted. Family/Other FH: mental illness Surgical History Surgical History H/O left knee surgery Deficient knowledge of leg surgery History of tonsillectomy and adenoidectomy History of appendectomy Social History Social History Household Members: Children Housing: Apartment Do you presently have visiting nurse or other home services: No Alcohol intake: unknown Patient Tobacco Use Status: Former Tobacco user Tobacco use type: Cigarette e-Cigarette/Vaping Use: Never Used Second Hand Smoke Exposure: No Use of substances other than those prescribed or required for medical reasons: No Currently Displaying Signs/Symptoms of Drug Intoxication Withdrawal: No Have you been hit, kicked, punched, or otherwise hurt by someone within the past year? If so, by whom?: No Do you feel safe in your current relationship?: Yes Is there a partner from a previous relationship who is making you feel unsafe now?: No Are you made to feel afraid or neglected: No [employer] Healthcare Practices: adventism Advance Directives: Yes Advance Directives on File: Yes Advance Directives Date on File: 06/24/24 Do you have a plan to hurt others: No Plan Recently lost weight without trying: Unsure Nutrition Risks: No Nutritional Risk Patient : No service: No Current occupational status: disabled Cognitive needs: Yes Hearing needs: No Vision needs: No Meds Allergies Allergy/AdvReac Type Severity Reaction Status Date / Time ibuprofen [From Motrin] Allergy Unknown swelling Verified 10/27/24 07:38 codeine [CODEINE] AdvReac Unknown SLEEPY Verified 10/27/24 07:38 Active Medications: Current Medications Acetaminophen (Acetaminophen 325 Mg Tablet) 650 mg PO Q6H PRN PRN Reason: Pain, Mild 1-3,fever,headache Last Admin: 10/30/24 12:47 Dose: 650 mg Albuterol Sulfate (Albuterol Sulfate 90 Mcg 8 Gm Inhaler) 2 puff INHALE Q6H PRN PRN Reason: shortness of breath or wheezing Last Admin: 10/30/24 01:44 Dose: 2 puff Albuterol/Ipratropium (Albuterol/Iprat 2.5/0.5mg 3 Ml Ampul.Neb) 3 ml INHALE Q4H PRN PRN Reason: shortness of breath or wheezing Last Admin: 10/31/24 08:41 Dose: 3 ml Atorvastatin Calcium (Atorvastatin Calcium 40 Mg Tablet) 40 mg PO BEDTIME [facility] Last Admin: 10/30/24 21:12 Dose: 40 mg Bumetanide (Bumetanide 1 Mg Tablet) 2 mg PO DAILY [facility]; Protocol Last Admin: 10/31/24 07:58 Dose: 2 mg Calcium Carbonate (Calcium Carbonate 750 Mg Tab.Chew) 750 mg PO Q4H PRN PRN Reason: Heartburn Ceftriaxone Sodium (Ceftriaxone Sodium 2 Gm Vial) 2 gm IVPUSH Q24H [facility] Last Admin: 10/31/24 11:50 Dose: 2 gm Duloxetine HCl (Duloxetine Hcl 20 Mg Capsule.Dr) 20 mg PO DAILY [facility] Last Admin: 10/31/24 07:58 Dose: 20 mg Glucose (Glucose Gel 15 Gm Gel..Gram.) 15 gm PO Q15M PRN; Protocol PRN Reason: per Hypoglycemia Standing Ord. Dextrose (D10) 250 mls @ 750 mls/hr IV Q15M PRN; Protocol PRN Reason: per Hypoglycemia Standing Ord. Insulin Glargine (Insulin Glargine,Hum.Rec.Anlog 100 Unit/Ml 10 Ml Vial) 20 unit SUBCUT BEDTIME [facility] Last Admin: 10/30/24 21:13 Dose: 20 unit Insulin Human Lispro (Insulin Lispro 100 Unit/Ml 3 Ml Vial) 0 unit SUBCUT QIDACHS [facility]; Protocol Last Admin: 10/31/24 12:33 Dose: 2 unit Levothyroxine Sodium (Levothyroxine Sodium 200 Mcg Tablet) 200 mcg PO DAILY@0600 [facility] Last Admin: 10/31/24 05:33 Dose: 200 mcg Lorazepam (Lorazepam 0.5 Mg Tablet) 0.5 mg PO TID PRN PRN Reason: anxiety Last Admin: 10/30/24 21:12 Dose: 0.5 mg Magnesium Hydroxide (Milk Of Magnesia 30 Ml Oral.Susp) 30 ml PO DAILY PRN PRN Reason: Constipation Melatonin (Melatonin 3 Mg Tablet) 6 mg PO BEDTIME PRN PRN Reason: Insomnia Nystatin (Nystatin Powder 15 Gm Bottle) 1 appl TOPICAL BID [facility]; Protocol Last Admin: 10/31/24 11:58 Dose: 1 appl Oxycodone HCl (Oxycodone Hcl Immed Release 5 Mg Tablet) 5 mg PO Q6H PRN PRN Reason: Pain, Severe (Pain Scale 7-10) Last Admin: 10/31/24 12:32 Dose: 5 mg Polyethylene Glycol (Polyethylene Glycol 3350 17 Gm Powd.Pack) 17 gm PO DAILY PRN PRN Reason: Constipation Sodium Chloride (0.9 % Sodium Chloride Flush 3 Ml Syringe) 3 ml IVFLUSH QSHIFT [facility] Last Admin: 10/31/24 07:57 Dose: 3 ml Home Medications ?Medication ?Instructions ?Recorded ?Confirmed ?Last Taken ?Type insulin glargine 100 unit/mL (3 15 unit subcut BEDTIME 06/19/24 10/27/24 10/27/24 09:00 History mL) subcutaneous pen (Basaglar KwikPen U-100 Insulin) levothyroxine 200 mcg tablet 200 mcg PO DAILY@0600 06/19/24 10/27/24 10/27/24 09:00 History oxycodone 5 mg tablet 5 mg PO BID PRN Pain, Severe (Pain 10/27/24 10/27/24 10/27/24 09:00 History Scale 7-10) Physical Exam 2 Vital Signs: Vital Signs: Last Vital Signs Temp 97.7 F 10/31/24 15:36 Pulse 79 10/31/24 15:36 Resp 18 10/31/24 15:36 BP 138/80 10/31/24 15:36 Pulse Ox 95 10/31/24 15:36 O2 Del Method Nasal Cannula 10/31/24 15:36 O2 Flow Rate 2 10/31/24 15:36 Oxygen Flow Rate 2 10/27/24 07:37 BMI result Body Mass Index 33.9 Const: General: cooperative HEENT: Head: Yes normal to inspection Face and sinus: Yes normal facial exam Mouth: Normal oral and palatal mucosa present Teeth and gingiva: d entition normal Eyes: General: appearance normal, both eyes and all related structures P upils: Equal, round and reactive pupils present Resp: Effort & Inspection: normal respiratory effort Cardio: Rate: regular rate Rhythm: regular rhythm GI: Palpation (GI): Soft to palpation and nontender : General: Yes no CVA tenderness Back/Spine/Pelvis: Back: no CVA tenderness Skin: General skin exam: no rashes or lesions noted Neuro: General: moves all extremities Cranial nerves: Yes Equal, round and reactive pupils present Extrem: General: Yes normal to inspection Psych: Appearance: grossly normal Results Labs 10/27/24 07:55 10/31/24 08:26 Labs: BMP 10/31/24 08:26 Sodium 137 Potassium 4.3 Chloride 106 Carbon Dioxide 19 L BUN 74 H Creatinine 2.84 H Calcium 8.7 D Microbiology Microbiology Results: Microbiology 10/27/24 10:07 Blood - Venous Blood Culture - Preliminary Escherichia coli 10/27/24 10:07 Blood - Venous Blood Culture - Preliminary No growth after 48 hours. 10/27/24 Unknown Urine Catheterized - Moyer Catheter Urine Culture - Final Escherichia coli Assessment and Plan (1) Gram-negative bacteremia: Status: Acute (2) Bilateral hydronephrosis: Status: Acute (3) Hematuria: Status: Acute Plan She has bacteremia and is tolerating Ceftriaxone. Would continue Ceftriaxone and on discharge total po cephalosporins for 10 days. There is apparently no OM and local care for sacral decub
[2024-10-31 19:45] VITALS: PULSE 94; RESP 18; O2SAT 96
[2024-10-31 20:00] VITALS: BP 134/59; PULSE 96; RESP 17; TEMP 36; O2SAT 98
[2024-10-31 20:59] LABS: Glucose, Whole Blood 271 mg/dL (60-115)
[2024-10-31] MEDS: Acetaminophen 325 MG TABLET 650 MG PO (21:10)
[2024-10-31] MEDS: Atorvastatin Calcium 40 MG TABLET PO (21:11)
[2024-10-31] MEDS: LORazepam 0.5 MG TABLET PO (21:11)
[2024-10-31] MEDS: Insulin Glargine,Hum.rec.anlog 100 UNIT/ML 10 ML VIAL 20 UNIT SUBCUT (21:12)
[2024-11-01] VITALS (8 sets, daily range): BP systolic 109–149; BP diastolic 53–67; PULSE 62–87; RESP 16–24; TEMP 36–36.2; O2SAT 95–99
[2024-11-01] MEDS: oxyCODONE HCl Immed Release 5 MG TABLET PO ×4 (01:55→23:11)
[2024-11-01] MEDS: 0.9 % Sodium Chloride Flush 3 ML SYRINGE IVFLUSH ×4 (02:03→22:18)
[2024-11-01] MEDS: Levothyroxine Sodium 200 MCG TABLET PO (05:44)
[2024-11-01 07:27] LABS: Glucose, Whole Blood 240 mg/dL (60-115)
[2024-11-01] MEDS: Insulin Lispro 100 UNIT/ML 3 ML VIAL SUBCUT ×4 (07:34→22:17)
[2024-11-01] MEDS: Albuterol/Iprat 2.5/0.5MG 3 ML AMPUL.NEB INHALE ×4 (08:07→23:46)
[2024-11-01] MEDS: Bumetanide 1 MG TABLET 2 MG PO (08:22)
[2024-11-01] MEDS: DULoxetine HCl 20 MG CAPSULE.DR PO (08:22)
[2024-11-01] MEDS: Nystatin Powder 15 GM BOTTLE 1 APPL TOPICAL ×2 (08:24→22:17)
[2024-11-01 11:06] LABS: Anion Gap 15 (12-20); Blood Urea Nitrogen 80 mg/dL (9-16); Calcium 8.5 mg/dL (8.4-10.2); Carbon Dioxide 20 mmol/L (22-29); Chloride 105 mmol/L (96-108); Creatinine Clr Calc Pharmacy 19.1; Estimated Glomerular Filt Rate 17; Glucose Random 273 mg/dL (60-115); Potassium 4.3 mmol/L (3.3-5.1); Sodium 136 mmol/L (135-145)
[2024-11-01 11:29] LABS: Glucose, Whole Blood 228 mg/dL (60-115)
[2024-11-01] MEDS: cefTRIAXone sodium 2 GM VIAL IVPUSH (11:38)
[2024-11-01] MEDS: LORazepam 0.5 MG TABLET PO (11:51)
--- NOTE | 2024-11-01 14:48 | P.PNNP_ITS ---
Subjective Subjective Date of Service: 11/01/24 Interval history: Events noted. All recent data reviewed Physical Exam 2 Vital Signs: Vital Signs: Last Vital Signs Temp 96.9 F 11/01/24 07:18 Pulse 87 11/01/24 11:07 Resp 18 11/01/24 11:07 BP 149/67 H 11/01/24 07:18 Pulse Ox 97 11/01/24 07:18 O2 Del Method Nasal Cannula 11/01/24 07:18 O2 Flow Rate 2 11/01/24 07:18 Oxygen Flow Rate 2 10/27/24 07:37 BMI result Body Mass Index 33.9 Const: General: comfortable and no acute distress O rientation/consciousness: patient oriented x3 HEENT: Head: Yes normocephalic Mouth: Normal oral and palatal mucosa present Eyes: EOM: EOMs intact bilaterally Neck: Neck: Yes supple Resp: Auscultation: clear to auscultation bilaterally Cardio: Jugular venous distension: no JVD Rate: regular rate GI: Palpation (GI): Soft to palpation Auscultation: normal bowel sounds Neuro: General: patient oriented x3 and moves all extremities Objective Data Labs 10/27/24 07:55 11/01/24 10:37 Labs: Laboratory Results - last 24 hr 10/31/24 10/31/24 11/01/24 16:02 20:47 07:20 Sodium Potassium Chloride Carbon Dioxide Anion Gap BUN Creatinine Estim Creat Clear Calc Estimated GFR POC Glucose 196 H 271 H 240 H Random Glucose Calcium 11/01/24 11/01/24 10:37 11:22 Sodium 136 Potassium 4.3 Chloride 105 Carbon Dioxide 20 L Anion Gap 15 BUN 80 H Creatinine 2.76 H Estim Creat Clear Calc 19.1 Estimated GFR 17 POC Glucose 228 H Random Glucose 273 H Calcium 8.5 Microbiology Microbiology Results: Microbiology 10/27/24 10:07 Blood - Venous Blood Culture - Final No growth after 5 days. 10/27/24 10:07 Blood - Venous Blood Culture - Preliminary Escherichia coli 10/27/24 Unknown Urine Catheterized - Moyer Catheter Urine Culture - Final Escherichia coli Procedures Date of Service Date of Service: 11/01/24 Assessment & Plan Assessment and plan (1) Bilateral hydronephrosis: Status: Acute (2) Acute kidney injury superimposed on CKD: Status: Acute (3) Essential hypertension: Status: Acute (4) Metabolic acidosis: Status: Acute Plan MARJORIE superimposed on CKD MARJORIE due to obstructive uropathy with a component of volume depletion/hypoperfusion E.Coli Urosepsis; Serum Cr better Metabolic acidosis multifactorial; Beta HB high; Was on Jardiance- put on hold; Was given PO NaHCO3 last night; No indication for renal replacement C/W rest of current supportive care for now Progress Note: Quality Stroke Does the patient have a stroke diagnosis?: No
--- NOTE | 2024-11-01 15:18 | P.PNIM_ITS ---
Subjective Subjective Date of Service: 11/01/24 Interval History: No new issues, blood culture and urine growing e coli Review of Systems pain seems somewhat improving no fevers Physical Exam 2 Vital Signs: Vital Signs: Last Vital Signs Temp 97.2 F 11/01/24 15:03 Pulse 72 11/01/24 15:03 Resp 18 11/01/24 15:03 BP 149/67 H 11/01/24 07:18 Pulse Ox 96 11/01/24 15:03 O2 Del Method Nasal Cannula 11/01/24 15:03 O2 Flow Rate 1 11/01/24 15:03 Oxygen Flow Rate 2 10/27/24 07:37 BMI result Body Mass Index 33.9 General: AO X 3, no acute distress Resp: CTA bilateral CVS: S1,S2,RRR GI: +BS, NT, no distention Skin: see pressure ulcer from earlier documentation Neuro: motor grossly intact Psych: appropriate affect Objective Data Active Medications Acetaminophen (Acetaminophen 325 Mg Tablet) 650 mg PO Q6H PRN PRN Reason: Pain, Mild 1-3,fever,headache Last Admin: 10/31/24 21:10 Dose: 650 mg Documented By: LUIS Albuterol Sulfate (Albuterol Sulfate 90 Mcg 8 Gm Inhaler) 2 puff INHALE Q6H PRN PRN Reason: shortness of breath or wheezing Last Admin: 10/30/24 01:44 Dose: 2 puff Documented By: GUIDO Albuterol/Ipratropium (Albuterol/Iprat 2.5/0.5mg 3 Ml Ampul.Neb) 3 ml INHALE Q4H PRN PRN Reason: shortness of breath or wheezing Last Admin: 11/01/24 11:05 Dose: 3 ml Documented By: ALBARO Atorvastatin Calcium (Atorvastatin Calcium 40 Mg Tablet) 40 mg PO BEDTIME [facility] Last Admin: 10/31/24 21:11 Dose: 40 mg Documented By: LUIS Bumetanide (Bumetanide 1 Mg Tablet) 2 mg PO DAILY [facility] [place]; Protocol Last Admin: 11/01/24 08:22 Dose: 2 mg Documented By: MARV Calcium Carbonate (Calcium Carbonate 750 Mg Tab.Chew) 750 mg PO Q4H PRN PRN Reason: Heartburn Ceftriaxone Sodium (Ceftriaxone Sodium 2 Gm Vial) 2 gm IVPUSH Q24H [facility] [place] Last Admin: 11/01/24 11:38 Dose: 2 gm Documented By: MARV Duloxetine HCl (Duloxetine Hcl 20 Mg Capsule.Dr) 20 mg PO DAILY [facility] [place] Last Admin: 11/01/24 08:22 Dose: 20 mg Documented By: MARV Glucose (Glucose Gel 15 Gm Gel..Gram.) 15 gm PO Q15M PRN; Protocol PRN Reason: per Hypoglycemia Standing Ord. Dextrose (D10) 250 mls @ 750 mls/hr IV Q15M PRN; Protocol PRN Reason: per Hypoglycemia Standing Ord. Insulin Glargine (Insulin Glargine,Hum.Rec.Anlog 100 Unit/Ml 10 Ml Vial) 20 unit SUBCUT BEDTIME [facility] Last Admin: 10/31/24 21:12 Dose: 20 unit Documented By: LUIS Insulin Human Lispro (Insulin Lispro 100 Unit/Ml 3 Ml Vial) 0 unit SUBCUT QIDACHS [facility] [place]; Protocol Last Admin: 11/01/24 11:37 Dose: 4 unit Documented By: MARV Levothyroxine Sodium (Levothyroxine Sodium 200 Mcg Tablet) 200 mcg PO DAILY@0600 [facility] [place] Last Admin: 11/01/24 05:44 Dose: 200 mcg Documented By: LUIS Lorazepam (Lorazepam 0.5 Mg Tablet) 0.5 mg PO TID PRN PRN Reason: anxiety Last Admin: 11/01/24 11:51 Dose: 0.5 mg Documented By: MARV Magnesium Hydroxide (Milk Of Magnesia 30 Ml Oral.Susp) 30 ml PO DAILY PRN PRN Reason: Constipation Melatonin (Melatonin 3 Mg Tablet) 6 mg PO BEDTIME PRN PRN Reason: Insomnia Nystatin (Nystatin Powder 15 Gm Bottle) 1 appl TOPICAL BID [facility] [place]; Protocol Last Admin: 11/01/24 08:24 Dose: 1 appl Documented By: MARV Oxycodone HCl (Oxycodone Hcl Immed Release 5 Mg Tablet) 5 mg PO Q6H PRN PRN Reason: Pain, Severe (Pain Scale 7-10) Last Admin: 11/01/24 09:44 Dose: 5 mg Documented By: MARV Polyethylene Glycol (Polyethylene Glycol 3350 17 Gm Powd.Pack) 17 gm PO DAILY PRN PRN Reason: Constipation Sodium Chloride (0.9 % Sodium Chloride Flush 3 Ml Syringe) 3 ml IVFLUSH QSHIFT GEO Last Admin: 11/01/24 07:35 Dose: 3 ml Documented By: MARV Labs 10/27/24 07:55 11/01/24 10:37 Labs: Laboratory Results - last 24 hr 10/31/24 10/31/24 11/01/24 16:02 20:47 07:20 Anion Gap Estim Creat Clear Calc Estimated GFR POC Glucose 196 H 271 H 240 H Random Glucose Calcium 11/01/24 11/01/24 10:37 11:22 Anion Gap 15 Estim Creat Clear Calc 19.1 Estimated GFR 17 POC Glucose 228 H Random Glucose 273 H Calcium 8.5 Microbiology Microbiology Results: Microbiology 10/27/24 10:07 Blood Culture - Final Blood - Venous No growth after 5 days. Assessment and Plan (1) Hematuria: Status: Acute (2) Acute kidney injury superimposed on CKD: Status: Acute (3) Urinary tract infection: Status: Acute (4) Gram-negative bacteremia: Status: Acute Plan 79F PMH COPD on home O2, HFpEF, pernicious anemia, HTN, HLD insulin-dependent type 2 diabetes with neuropathy, CKD3, hypothyroidism, and mood disorder here with pain from pressure ulcer and incidental UTI, no speis, and acute on chronic renal failure complicated by metabolic acidosis Ecoli UTI and Bacteremia, no sepsis, sensitive to ceftriaxone -continue Ceftriaxone and change to Ceftin at DC probably for 14 days, check with ID Metabolic acidosis--without GAP, likely Jardiance induced acidosis, improved hold jardiance monitor,hold bicab replacement and follow Nephrology following Hydronephrosis MARJORIE on CKD4 cr in 2.7-2.8 range -continue francisco nephro-MARJORIE due to obstructive uropathy with a component of volume depletion. urology follow up Hematuria, likely traumatic Francisco -resolved, stoped CBI, leave francisco for now for skin, uro following chronic respiratory failure d/t copd , no exacrebation -continue home inhalers -O2 to keep sat 88 to 92 chronic HFpEF, no exacerbation -continue home diuretic -hold jardiance because of metabolic acidosis COPD, no exacerbation HTN--in past was on Norvasc, but not on present med list -restart Norvasc at 5 HLD -statin Insulin-dependent type 2 diabetes with hyperglycemia Sliding scale insulin, increase lantus 20, add 5 unit pre meal insulin (for sugars >200) stop jardiance as stated above Diabetic diet Sore back from pressure ulcer --POA, no evidence of infection wound care consult -frequent turning per nursing protocol Turn and Reposition every 2 hours and as needed for patient comfort.? Use pillows or wedges to support off loading positions. Off Load all bony prominences with use of pillows and heel boots if needed.? Apply Preventative foams where needed. ? Monitor for incontinence and moisture control, use barrier creams when needed for prevention and treatment. Provide adequate and supplemental nutrition.? Order low air loss mattress. When applicable maintain blood glucose levels per Providers order. Sacrum - Off Load Pressure? - Cleanse with PH balance spray or wipes, pat dry. ?Apply thin layer of Triad to wound bed. Do not remove all of paste between applications as this may cause further skin damage.? Cover with foam dressing to aid in off loading and protection from friction. Change two days and PRN. Bilateral Heels - Elevate heels off of bed with use of pillows. Apply skin prep to heels followed by foam dressings. Change every 3 days and PRN. DVT Prophylaxis: mech devices sec to hematuria. PT eval for possible rehab, she is open to this Code: Full code ongoing need for hospitlisation: marjorie on ckd , bacteremia -need iv antibiotics , close monitreing renal function/elecatrolytes ,urology follow up for ?bilateral hydronephrosis/marjorie Quality Stroke Does the patient have a stroke diagnosis?: No VTE Prior VTE?: No VTE Risk Level:: Medical - moderate - high VTE Device Contraindication: N/A - Device Ordered VTE Drug Contraindication: N/A - Med Ordered
--- NOTE | 2024-11-01 15:53 | MHC.CM.PN ---
Per MD rounds Patient is not ready to discharge today. She continues with JACOB Hydronephrosis and MARJORIE. DP home with services. Patient will transport via BLS.
[2024-11-01 15:58] LABS: Glucose, Whole Blood 316 mg/dL (60-115)
--- NOTE | 2024-11-01 17:43 | PC.NURSE ---
Dr. Barfield advised to keep francisco in place.
[2024-11-01 20:39] LABS: Glucose, Whole Blood 328 mg/dL (60-115)
[2024-11-01] MEDS: Atorvastatin Calcium 40 MG TABLET PO (22:06)
[2024-11-01] MEDS: Insulin Glargine,Hum.rec.anlog 100 UNIT/ML 10 ML VIAL 20 UNIT SUBCUT (22:17)
[2024-11-02] VITALS (10 sets, daily range): BP systolic 119–163; BP diastolic 57–96; PULSE 60–74; RESP 16–20; TEMP 36.1–36.6; O2SAT 94–98
[2024-11-02] MEDS: oxyCODONE HCl Immed Release 5 MG TABLET PO ×3 (05:19→17:39)
[2024-11-02] MEDS: Levothyroxine Sodium 200 MCG TABLET PO (05:20)
[2024-11-02] MEDS: Albuterol/Iprat 2.5/0.5MG 3 ML AMPUL.NEB INHALE ×6 (05:24→23:27)
[2024-11-02 07:45] LABS: Glucose, Whole Blood 349 mg/dL (60-115)
[2024-11-02] MEDS: Insulin Lispro 100 UNIT/ML 3 ML VIAL SUBCUT ×4 (07:53→19:55)
[2024-11-02] MEDS: DULoxetine HCl 20 MG CAPSULE.DR PO (07:53)
[2024-11-02] MEDS: Bumetanide 1 MG TABLET 2 MG PO (07:54)
[2024-11-02] MEDS: 0.9 % Sodium Chloride Flush 3 ML SYRINGE IVFLUSH ×3 (07:55→19:56)
[2024-11-02] MEDS: Nystatin Powder 15 GM BOTTLE 1 APPL TOPICAL ×2 (08:01→19:54)
--- NOTE | 2024-11-02 09:28 | MHC.CLN ---
F/U DIET=DIAB 2000 KCAL. SUPPLEMENT ENSURE MAX BID PROVIDES 300 KCALS, 60 G PROTEIN. INTAKE AT MEALS 75-100%. STAGE II PRESSURE INJURY TO RIGHT BUTTOCKS. SUPPLEMENT TO PROMOTE WOUND HEALING. NEPHROLOGY FOLLOWING. CONTINUE TO MONITOR LABS. MONITOR PO INTAKE AND ENCOURAGE SUPPLEMENTS.
[2024-11-02 11:12] LABS: Glucose, Whole Blood 383 mg/dL (60-115)
[2024-11-02] MEDS: cefTRIAXone sodium 2 GM VIAL IVPUSH (11:35)
--- NOTE | 2024-11-02 12:54 | P.PNNP_ITS ---
Subjective Subjective Date of Service: 11/02/24 Interval history: Events noted. All recent data reviewed Physical Exam 2 Vital Signs: Vital Signs: Last Vital Signs Temp 96.9 F 11/02/24 07:05 Pulse 71 11/02/24 11:10 Resp 20 11/02/24 11:10 BP 152/68 H 11/02/24 07:05 Pulse Ox 98 11/02/24 07:05 O2 Del Method Nasal Cannula 11/02/24 07:05 O2 Flow Rate 2 11/02/24 07:05 Oxygen Flow Rate 2 10/27/24 07:37 BMI result Body Mass Index 33.9 Const: General: comfortable and no acute distress O rientation/consciousness: patient oriented x3 HEENT: Head: Yes normocephalic Mouth: Normal oral and palatal mucosa present Eyes: EOM: EOMs intact bilaterally Neck: Neck: Yes supple Resp: Auscultation: clear to auscultation bilaterally Cardio: Jugular venous distension: no JVD Rate: regular rate GI: Palpation (GI): Soft to palpation Auscultation: normal bowel sounds Skin: General skin exam: no rashes or lesions noted Neuro: General: patient oriented x3 and moves all extremities Objective Data Labs 10/27/24 07:55 11/01/24 10:37 Labs: Laboratory Results - last 24 hr 11/01/24 11/01/24 11/02/24 15:54 20:35 07:10 POC Glucose 316 H 328 H 349 H 11/02/24 11:08 POC Glucose 383 H* Microbiology Microbiology Results: Microbiology 10/27/24 10:07 Blood - Venous Blood Culture - Final No growth after 5 days. 10/27/24 10:07 Blood - Venous Blood Culture - Preliminary Escherichia coli 10/27/24 Unknown Urine Catheterized - Moyer Catheter Urine Culture - Final Escherichia coli Procedures Date of Service Date of Service: 11/02/24 Assessment & Plan Assessment and plan (1) Bilateral hydronephrosis: Status: Acute (2) Acute kidney injury superimposed on CKD: Status: Acute Plan MARJORIE superimposed on CKD MARJORIE due to obstructive uropathy with a component of volume depletion/hypoperfusion E.Coli Urosepsis; Serum Cr better Metabolic acidosis multifactorial; Beta HB high; Was on Jardiance- put on hold; Was given PO NaHCO3 ; No indication for renal replacement C/W rest of current supportive care for now Progress Note: Quality Stroke Does the patient have a stroke diagnosis?: No
--- NOTE | 2024-11-02 13:56 | HO.WOUND ---
Wound Consult: Follow up 79yr old?female admitted to [facility] [place] on 10/27/24 - See progress notes and H&P for detailed history.? Wound consult follow up for buttock and left heel wound POA.? Patient agreeable to assessment and photo documentation of heels, she refused sacral assessment since she was up to a chair. Educated on the importance of assessment to ensure proper healing she began to get frustrated and requested future time or date assessment. Will attempt sacral assessment tomorrow. ? Right Heel - Intact red blanchable tissue however the patient reports significant pain to the heel and the pigmentation is bright red recommend continue preventative treatment of foam dressing and off loading heels from surface of bed with pillows. Left Heel Etiology: Deep tissue Injury Present on Admission Measurements: 0.2cm x 2cm x 0cm two lesions Wound Bed: intact dark purple nonblanchable tissue Drainage / Odor: None Edges: ? irregular and attached Patria wound: ? dark red slow to blanchable tissue No Induration, Fluctuance or Warmth noted Pain: Significant Pain noted Goals of Treatment: ? Off Load Pressure - Foam to protect from friction and aid in pressure redistribution Bilateral Lower Legs noted for venous dermatitis while at the bedside. no open wounds noted - recommend topical lotion or cream to soften thick scaling skin. No new topical recommendations needed at this time. Recommendations: 1. Turn and Reposition every 2 hours and as needed for patient comfort.? Use pillows or wedges to support off loading positions. 2. Off Load all bony prominences with use of pillows and heel boots if needed.? Apply Preventative foams where needed. ? 3. Monitor for incontinence and moisture control, use barrier creams when needed for prevention and treatment. 4. Provide adequate and supplemental nutrition.? 5. Order low air loss mattress. 6. When applicable maintain blood glucose levels per Providers order. 7. Sacrum - Off Load Pressure? - Cleanse with PH balance spray or wipes, pat dry. ?Apply thin layer of Triad to wound bed. Do not remove all of paste between applications as this may cause further skin damage.? Cover with foam dressing to aid in off loading and protection from friction. Change two days and PRN. 8. Bilateral Heels - Elevate heels off of bed with use of pillows. Apply skin prep to heels followed by foam dressings. Change every 3 days and PRN. Re-consult wound care Nurse for wound deterioration or wound changes. Previous assessment on 10/28/24: Sacrum Etiology: ??Currently Unstageable Pressure Injury previous admission documented as Deep tissue Injury in Evolution Present on Admission Measurements: 4.5cm x 4cm x 0.2cm Wound Bed: adherent pale slough with granulation buds noted Drainage / Odor: small amount of serosang Edges: ? irregular and attached Patria wound: ?MASD to perianal area dark maroon purple slow to blanchable tissue No Induration, Fluctuance or Warmth noted Pain: Pain noted Goals of Treatment: ? Off Load Pressure - Foam and Triad to protect from friction and moisture Right Heel - Intact red blanchable tissue however the patient reports significant pain to the heel and the pigmentation is bright red recommend preventative treatment of foam dressing and off loading heels from surface of bed with pillows. Left Heel Etiology: Deep tissue Injury Present on Admission Measurements: 0.2cm x 2cm x 0cm Wound Bed: intact dark purple nonblanchable tissue Drainage / Odor: None Edges: ? irregular and attached Patria wound: ? dark red slow to blanchable tissue No Induration, Fluctuance or Warmth noted Pain: Significant Pain noted Goals of Treatment: ? Off Load Pressure - Foam to protect from friction and aid in pressure redistribution Bilateral Lower Legs noted for venous dermatitis while at the bedside. no open wounds noted - recommend topical lotion or cream to soften thick scaling skin. Recommendations: 1. Turn and Reposition every 2 hours and as needed for patient comfort.? Use pillows or wedges to support off loading positions. 2. Off Load all bony prominences with use of pillows and heel boots if needed.? Apply Preventative foams where needed. ? 3. Monitor for incontinence and moisture control, use barrier creams when needed for prevention and treatment. 4. Provide adequate and supplemental nutrition.? 5. Order low air loss mattress. 6. When applicable maintain blood glucose levels per Providers order. 7. Sacrum - Off Load Pressure? - Cleanse with PH balance spray or wipes, pat dry. ?Apply thin layer of Triad to wound bed. Do not remove all of paste between applications as this may cause further skin damage.? Cover with foam dressing to aid in off loading and protection from friction. Change two days and PRN. 8. Bilateral Heels - Elevate heels off of bed with use of pillows. Apply skin prep to heels followed by foam dressings. Change every 3 days and PRN. Re-consult wound care Nurse for wound deterioration or wound changes.
--- NOTE | 2024-11-02 14:07 | HO.PM.IMPN ---
Subjective Subjective Date of Service: 11/02/24 Interval History: Ecoli UTI and Bacteremia shala on ckd Review of Systems seems improving no new c/o Physical Exam Vital Signs: Vital Signs: Last Vital Signs Temp 96.9 F 11/02/24 07:05 Pulse 71 11/02/24 11:10 Resp 20 11/02/24 11:10 BP 152/68 H 11/02/24 07:05 Pulse Ox 98 11/02/24 07:05 O2 Del Method Nasal Cannula 11/02/24 07:05 O2 Flow Rate 2 11/02/24 07:05 Oxygen Flow Rate 2 10/27/24 07:37 BMI result Body Mass Index 33.9 General: AO X 3, no acute distress Resp: air entry fair , no rales , has few rhonchii CVS: S1,S2,RRR GI: +BS, NT, no distention Skin: see pressure ulcer from earlier documentation Neuro: motor grossly intact Psych: appropriate affect Objective Data Active Medications Acetaminophen (Acetaminophen 325 Mg Tablet) 650 mg PO Q6H PRN PRN Reason: Pain, Mild 1-3,fever,headache Last Admin: 10/31/24 21:10 Dose: 650 mg Documented By: LUIS Albuterol Sulfate (Albuterol Sulfate 90 Mcg 8 Gm Inhaler) 2 puff INHALE Q6H PRN PRN Reason: shortness of breath or wheezing Last Admin: 10/30/24 01:44 Dose: 2 puff Documented By: GUIDO Albuterol/Ipratropium (Albuterol/Iprat 2.5/0.5mg 3 Ml Ampul.Neb) 3 ml INHALE Q4H PRN PRN Reason: shortness of breath or wheezing Last Admin: 11/02/24 08:12 Dose: 3 ml Documented By: PRABHA Albuterol/Ipratropium (Albuterol/Iprat 2.5/0.5mg 3 Ml Ampul.Neb) 3 ml INHALE RQ4H WHILE AWAKE GEO Last Admin: 11/02/24 11:07 Dose: 3 ml Documented By: KATRINA Atorvastatin Calcium (Atorvastatin Calcium 40 Mg Tablet) 40 mg PO BEDTIME GEO Last Admin: 11/01/24 22:06 Dose: 40 mg Documented By: SARAHY Calcium Carbonate (Calcium Carbonate 750 Mg Tab.Chew) 750 mg PO Q4H PRN PRN Reason: Heartburn Ceftriaxone Sodium (Ceftriaxone Sodium 2 Gm Vial) 2 gm IVPUSH Q24H [facility] Last Admin: 11/02/24 11:35 Dose: 2 gm Documented By: JIE Duloxetine HCl (Duloxetine Hcl 20 Mg Capsule.Dr) 20 mg PO DAILY [facility] Last Admin: 11/02/24 07:53 Dose: 20 mg Documented By: JIE Glucose (Glucose Gel 15 Gm Gel..Gram.) 15 gm PO Q15M PRN; Protocol PRN Reason: per Hypoglycemia Standing Ord. Dextrose (D10) 250 mls @ 750 mls/hr IV Q15M PRN; Protocol PRN Reason: per Hypoglycemia Standing Ord. Insulin Glargine (Insulin Glargine,Hum.Rec.Anlog 100 Unit/Ml 10 Ml Vial) 20 unit SUBCUT BEDTIME [facility] Last Admin: 11/01/24 22:17 Dose: 20 unit Documented By: SARAHY Insulin Human Lispro (Insulin Lispro 100 Unit/Ml 3 Ml Vial) 0 unit SUBCUT QIDACHS [facility]; Protocol Last Admin: 11/02/24 12:54 Dose: 10 unit Documented By: JIE Levothyroxine Sodium (Levothyroxine Sodium 200 Mcg Tablet) 200 mcg PO DAILY@0600 [facility] Last Admin: 11/02/24 05:20 Dose: 200 mcg Documented By: SARAHY Magnesium Hydroxide (Milk Of Magnesia 30 Ml Oral.Susp) 30 ml PO DAILY PRN PRN Reason: Constipation Melatonin (Melatonin 3 Mg Tablet) 6 mg PO BEDTIME PRN PRN Reason: Insomnia Nystatin (Nystatin Powder 15 Gm Bottle) 1 appl TOPICAL BID [facility]; Protocol Last Admin: 11/02/24 08:01 Dose: 1 appl Documented By: JIE Oxycodone HCl (Oxycodone Hcl Immed Release 5 Mg Tablet) 5 mg PO Q6H PRN PRN Reason: Pain, Severe (Pain Scale 7-10) Last Admin: 11/02/24 11:34 Dose: 5 mg Documented By: JIE Polyethylene Glycol (Polyethylene Glycol 3350 17 Gm Powd.Pack) 17 gm PO DAILY PRN PRN Reason: Constipation Sodium Chloride (0.9 % Sodium Chloride Flush 3 Ml Syringe) 3 ml IVFLUSH QSHIFT [facility] Last Admin: 11/02/24 07:55 Dose: 3 ml Documented By: JIE Labs 10/27/24 07:55 11/01/24 10:37 Labs: Laboratory Results - last 24 hr 11/01/24 11/01/24 11/02/24 15:54 20:35 07:10 POC Glucose 316 H 328 H 349 H 11/02/24 11:08 POC Glucose 383 H* Microbiology Microbiology Results: Microbiology 10/27/24 10:07 Blood Culture - Final Blood - Venous No growth after 5 days. Assessment and Plan (1) Gram-negative bacteremia: Status: Acute (2) Bilateral hydronephrosis: Status: Acute Assessment and Plan: 79F PMH COPD on home O2, HFpEF, pernicious anemia, HTN, HLD insulin-dependent type 2 diabetes with neuropathy, CKD3, hypothyroidism, and mood disorder here with pain from pressure ulcer and incidental UTI, no speis, and acute on chronic renal failure complicated by metabolic acidosis Ecoli UTI and Bacteremia, no sepsis, sensitive to ceftriaxone -continue Ceftriaxone and change to Ceftin at DC probably for 14 days, check with ID Metabolic acidosis--without GAP, likely Jardiance induced acidosis, improved hold jardiance monitor,hold bicab replacement and follow Nephrology following Hydronephrosis SHALA on CKD4 cr in 2.7-2.8 range -continue francisco nephro-SHALA due to obstructive uropathy with a component of volume depletion. urology follow up-added renal us for ?bilateral hydronephrosis/shala. Hematuria, likely traumatic Francisco -resolved, stoped CBI, leave francisco for now for skin, uro following chronic respiratory failure d/t copd , no exacrebation -continue home inhalers -O2 to keep sat 88 to 92 chronic HFpEF, no exacerbation -continue home diuretic -hold jardiance because of metabolic acidosis COPD, no exacerbation HTN--in past was on Norvasc, but not on present med list -restart Norvasc at 5 HLD -statin Insulin-dependent type 2 diabetes with hyperglycemia Sliding scale insulin, increase lantus 20, add 5 unit pre meal insulin (for sugars >200) stop jardiance as stated above Diabetic diet Sore back from pressure ulcer --POA, no evidence of infection wound care consult -frequent turning per nursing protocol Turn and Reposition every 2 hours and as needed for patient comfort.? Use pillows or wedges to support off loading positions. Off Load all bony prominences with use of pillows and heel boots if needed.? Apply Preventative foams where needed. ? Monitor for incontinence and moisture control, use barrier creams when needed for prevention and treatment. Provide adequate and supplemental nutrition.? Order low air loss mattress. When applicable maintain blood glucose levels per Providers order. Sacrum - Off Load Pressure? - Cleanse with PH balance spray or wipes, pat dry. ?Apply thin layer of Triad to wound bed. Do not remove all of paste between applications as this may cause further skin damage.? Cover with foam dressing to aid in off loading and protection from friction. Change two days and PRN. Bilateral Heels - Elevate heels off of bed with use of pillows. Apply skin prep to heels followed by foam dressings. Change every 3 days and PRN. DVT Prophylaxis: mech devices sec to hematuria. PT eval for possible rehab. Code: Full code ongoing need for hospitlisation: shala on ckd , bacteremia -need iv antibiotics , close monitreing renal function/elecatrolytes ,urology follow up for ?bilateral hydronephrosis/shala Quality Stroke Does the patient have a stroke diagnosis?: No VTE Prior VTE?: No VTE Risk Level:: Medical - moderate - high VTE Device Contraindication: N/A - Device Ordered VTE Drug Contraindication: N/A - Med Ordered
--- NOTE | 2024-11-02 15:35 | MHC.CM.PN ---
Per MD rounds Patient is not medically clear to discharge. A Nephrology consult was ordered. DP Home with resumption of [facility].
[2024-11-02 16:52] LABS: Glucose, Whole Blood 372 mg/dL (60-115)
[2024-11-02 19:44] LABS: Glucose, Whole Blood 347 mg/dL (60-115)
[2024-11-02] MEDS: Insulin Glargine,Hum.rec.anlog 100 UNIT/ML 10 ML VIAL 25 UNIT SUBCUT (19:52)
[2024-11-02] MEDS: Atorvastatin Calcium 40 MG TABLET PO (19:53)
[2024-11-03] VITALS (8 sets, daily range): BP systolic 106–159; BP diastolic 52–73; PULSE 68–78; RESP 17–20; TEMP 36.2–36.4; O2SAT 95–98
[2024-11-03] MEDS: oxyCODONE HCl Immed Release 5 MG TABLET PO ×4 (02:50→23:38)
[2024-11-03] MEDS: Albuterol/Iprat 2.5/0.5MG 3 ML AMPUL.NEB INHALE ×5 (03:43→19:09)
[2024-11-03] MEDS: Levothyroxine Sodium 200 MCG TABLET PO (06:34)
[2024-11-03 07:22] LABS: Glucose, Whole Blood 230 mg/dL (60-115)
[2024-11-03] MEDS: Insulin Lispro 100 UNIT/ML 3 ML VIAL SUBCUT ×6 (07:55→20:18)
[2024-11-03] MEDS: 0.9 % Sodium Chloride Flush 3 ML SYRINGE IVFLUSH ×3 (07:56→19:47)
[2024-11-03] MEDS: cefuroxime axetiL 250 MG TABLET PO ×2 (09:32→19:47)
[2024-11-03] MEDS: DULoxetine HCl 20 MG CAPSULE.DR PO (09:32)
--- NOTE | 2024-11-03 10:42 | HO.WOUND ---
Wound Consult: Follow up 79yr old?female admitted to [facility] on 10/27/24 - See progress notes and H&P for detailed history.? Wound consult follow up for buttock wound POA.? Patient agreeable to assessment and photo documentation.? 10/28/24 Sacrum Etiology: ??Stage 3 Pressure Injury - currently resolving, Previously documented as Unstageable Pressure Injury previous admission documented as Deep tissue Injury in Evolution Present on Admission Measurements: 3cm x 4cm x 0.2cm Wound Bed: red clean moist viable wound bed Drainage / Odor: small amount of serosang Edges: ? irregular and attached Patria wound: ?MASD to periwound area dark maroon purple remains blanchable tissue of note some areas are slow to phillip as on admission No Induration, Fluctuance or Warmth noted Pain: Pain noted Goals of Treatment: ? Off Load Pressure - Foam and Triad to protect from friction and moisture Right Heel - Intact pink blanchable tissue however the patient reports significant pain to the heel recommend continue preventative treatment of foam dressing and off loading heels from surface of bed with pillows. Left Heel 11/02/24 Left Heel 10/28/24 Etiology: Deep tissue Injury Present on Admission Measurements: 0.2cm x 2cm x 0cm two lesions Wound Bed: intact dark purple nonblanchable tissue Drainage / Odor: None Edges: ? irregular and attached Patria wound: ? dark red slow to blanchable tissue No Induration, Fluctuance or Warmth noted Pain: Significant Pain noted Goals of Treatment: ? Off Load Pressure - Foam to protect from friction and aid in pressure redistribution Bilateral Lower Legs noted for venous dermatitis while at the bedside. no open wounds noted - recommend topical lotion or cream to soften thick scaling skin. No new topical recommendations needed at this time. Recommendations: 1. Turn and Reposition every 2 hours and as needed for patient comfort.? Use pillows or wedges to support off loading positions. 2. Off Load all bony prominences with use of pillows and heel boots if needed.? Apply Preventative foams where needed. ? 3. Monitor for incontinence and moisture control, use barrier creams when needed for prevention and treatment. 4. Provide adequate and supplemental nutrition.? 5. Order low air loss mattress. 6. When applicable maintain blood glucose levels per Providers order. 7. Sacrum - Off Load Pressure? - Cleanse with PH balance spray or wipes, pat dry. ?Apply thin layer of Triad to wound bed. Do not remove all of paste between applications as this may cause further skin damage.? Cover with foam dressing to aid in off loading and protection from friction. Change every 3 days and PRN. 8. Bilateral Heels - Elevate heels off of bed with use of pillows. Apply skin prep to heels followed by foam dressings. Change every 5 days and PRN. At time of d/c to home patient should continue to off load pressure from bony prominences. Foam dressing can be continued if available. Triad should be continued to the sacral area to allow for healing and protect from moisture and friction. Patient advised if wearing brief to change once wet or soiled. Re-consult wound care Nurse for wound deterioration or wound changes.
--- NOTE | 2024-11-03 11:03 | MHC.CM.PN ---
IMM 11/03/24 Patient is discharged by MD today. She wishes to appeal her discharge. The Notice of non coverage has been given to the patient as well as [facility]. Patient has called [facility]. CM will wait for decision. A VM has been left for the patients son.
--- NOTE | 2024-11-03 11:10 | P.F2F_ITS ---
Service Date Service Date: 11/03/24 Encounter Date of encounter: 11/03/24 Encounter: shala on ckd ,e coli bacteremia, pressure ulcer Reasons for Services Signs and symptoms assessed: new fever or urinary c/o or sob Reason for assisted: CV/CP assess and/or care, wound care, diabetic teaching, monitoring of unstable blood sugar, medication management, medication treatment and teach disease management Reason for physical therapy: home safety and mobility, therapeutic exercises, restore joint function, gait/transfer training, assess need for DME, ADL training, energy conservation and other MD Overseeing Care: Neida Soto Homebound: Leaving the home is medically contraindicated at this time without the asist of a device and/or another person due th the listed conditions above and below. Reason homebound: weakness related to hospital stay Homebound supporting statement: Patient is generalised weak has multiple comorbidities- need help going to ger ointments and labs draws, wound care , medical management as well as PT. Certification: Based on the above findings, I certify that this patient is confined to the home and needs intermittent assisted care, physical therapy and/or speech therapy, or continues to need occupational therapy. The patient is under my care, and I have initiated the establishment of the plan of care. The patient will be followed by a physician who will periodically review the plan of care. Time Spent With Patient Time: Total time managing care of this patient today ____ minutes.
--- NOTE | 2024-11-03 11:13 | P.DS_ITS ---
DS: Providers Provider Date of Service: 11/03/24 Date of admission: 10/27/24 13:51 Date of discharge: 11/03/24 Primary care physician: Neida Soto MD Consults: 10/27/24 07:41 Consult to Wound Care Routine Reason for consultation: wound on coccyx, no prior wound care 10/27/24 14:53 Consult to Wound Care Routine Reason for consultation: wound to right buttock 10/27/24 21:18 Consult to Nephrology Routine Consulting Provider: [facility] Reason for consultation: Marjorie on CKD, hyperchloremic metabolic acidosis Has provider been notified: No 10/28/24 00:54 Consult to Urology Routine Consulting Provider: [facility] Reason for consultation: hematuria 10/31/24 09:21 Consult to Infectious Diseases Routine Consulting Provider: [facility] Reason for consultation: bacteremia Has provider been notified: No 11/02/24 02:01 Consult to Wound Care Routine Reason for consultation: wound on coccyx Attending physician on discharge: Beltran Barfield Discharging clinician: Beltran Barfield DS: Diagnosis Discharge Diagnosis (1) Gram-negative bacteremia: Status: Acute (2) Bilateral hydronephrosis: Status: Acute DS: Summary Hospital Course Hospital Course: HPI: 79-year-old female with a past medical history significant for COPD, HFpEF, pernicious anemia, HTN, HLD, insulin-dependent type 2 diabetes with neuropathy, CKD3, hypothyroidism, and mood disorder, who presents with increasing pain from her coccyx wound. She denies fever, chills, or shortness of breath. Routine workup revealed a positive urinalysis, and she is being treated for a UTI. However, she subsequently presented to the ED with increasing shortness of breath and dyspnea on exertion for the past 2?3 days, which worsened this morning. Findings include mild MARJORIE on CKD, a slightly elevated WBC, and a serum bicarbonate of 13 with no anion gap. Her COPD and respiratory status remain stable at this time. Hospital course: 79F PMH COPD on home O2, HFpEF, pernicious anemia, HTN, HLD insulin-dependent type 2 diabetes with neuropathy, CKD3, hypothyroidism, and mood disorder here with pain from pressure ulcer and incidental UTI, no speis, and acute on chronic renal failure complicated by metabolic acidosis: E coli UTI and bacteremia burt turcios was on ceftriaxone and subsequently switched to p.o. Ceftin upon discharge and metabolic acidosis was thought to be related to Jardiance which is placed on hold, MARJORIE on CKD-was thought to be related to volume depletion/question of obstructive uropathy-seen by nephrology and Urology: Diuretics was placed on hold initially, Francisco placed and renal sono was repeated-on renal sono patient does not have hydronephrosis: Discussed with nephrology creatinine is stable between 2.7-2.8 range. Upon discharge nephrology recommended to adjust Bumex to 1 mg daily. Monitor BMP in 1 week outpatient. Urology recommended to continue Francisco-they will decide outpatient voiding trial. Patient had episode of brief hematuria which was requiring brief CBI-hematuria resolved.has ct abd intially (10/27/24): b/l hydronpheosis , has francisco , renal us as above done on 11/02/24: does not show hydronephrosis. d/w urology-recomneded to continue francisco and follow up with urology outpatient . Patient is to follow-up with Nephrology and Urology outpatient. dm with hyperglycemia : lantus adjusted to 25units at bedtime ,moniter fs and further management outaptient. Patient has sore back from pressure ulcer(Poa): Seen by wound care: Instructions as above. Patient will be going home with VNA and PT. plan: Monitor BMP in 1 week outpatient. lantus adjusted to 25units at bedtime ,moniter fs and further management outaptient. Complete Ceftin 250 mg b.i.d. for 10 days. Bumex adjusted to 1 mg daily Jardiance is at hold until seen by Nephrology. Diabetic and CHF education given. Patient is to follow-up with Urology outpatient for Francisco as above. Patient is to follow out patiently with PCP, Nephro, urology. Above management discussed with the patient in detail length she understand and in agreement with the above plan, time spent 40 minute. Time Attestation Total time managing care of this patient today: 40 mintues. Discharge Coordination Time (in mins): 40 min Quality: Safe Use of Opioids Does Pt have an Active Cancer Diagnosis on the Problem List?: No Quality: Stroke Does the patient have a stroke diagnosis?: No Physical Exam Vital Signs: Vital Signs: Last Vital Signs Temp 97.3 F 01/09/25 08:00 Pulse 77 11/03/24 08:00 Resp 20 11/03/24 08:00 BP 159/73 H 11/03/24 08:00 Pulse Ox 95 11/03/24 08:00 O2 Del Method Nasal Cannula 11/03/24 08:00 O2 Flow Rate 2 11/03/24 08:00 Oxygen Flow Rate 2 10/27/24 07:37 BMI result Body Mass Index 33.9 General: AO X 3, no acute distress Resp: air entry fair , no rales , has few rhonchii CVS: S1,S2,RRR GI: +BS, NT, no distention Skin: see pressure ulcer from earlier documentation Neuro: motor grossly intact Psych: appropriate affect DS: Data Data Completed and Pending Completed studies during hospitalization [Text1]: Procedures Assistance with Respiratory Ventilation, Less than 24 Consecutive Hours, Continuous Positive Airway Pressure (08/03/24) Drainage of Left Pleural Cavity, Percutaneous Approach (08/03/24) Insertion of Infusion Device into Superior Vena Cava, Percutaneous Approach (11/10/21) Performance of Urinary Filtration, Intermittent, Less than 6 Hours Per Day (11/10/21) Labs on day of discharge: Laboratory Results - last 24 hr 11/02/24 11/02/24 11/02/24 11:08 16:48 19:37 POC Glucose 383 H* 372 H* 347 H 11/03/24 07:18 POC Glucose 230 H Preliminary micro results at discharge 10/27/24 10:07 Blood Culture - Preliminary Blood - Venous Escherichia coli Imaging Chest x-ray: Radiologist's impression: ITS Impressions Chest X-Ray 10/27/24 08:05 IMPRESSION: Mild cardiomegaly with pulmonary vascular congestion. Electronically signed by: Grant Willis MD 10/27/2024 08:35 AM EST RP Abdomen/Pelvis CT 10/27/24 10:27 IMPRESSION: Bilateral hydroureteronephrosis without any obstructive etiology. Small simple exophytic cyst mid pole right kidney, stable Mild constipation without obstruction. Mild circumferential thickening of the rectal wall, stable. Small umbilical hernia containing intraperitoneal fat. Fleischner guidelines were followed. Electronically signed by: Grant Willis MD 10/27/2024 10:48 AM EST RP Renal Ultrasound 11/02/24 15:16 IMPRESSION: Bilateral renal cortical thinning. Right renal cysts as described. No hydronephrosis. Electronically signed by: Valeriano Garnett MD 11/02/2024 03:57 PM EST Discharge Plan Discharge Anticipated Discharge Date/Time: 11/03/24 08:39 Patient Disposition: Home Health Service Discharge Diagnosis: Ecoli UTI and Bacteremia, no sepsis, sensitive to ceftriaxone,hydronephrosis ,akion ckd 4 Referrals: [facility] [Outside] - 1 Week Neida Mirza MD [Primary Care Provider] - Discharge Medications: New cefuroxime axetil 250 mg tablet 250 mg PO Q12H Qty: 18 0RF Continued (DME) insulin syringe-needle U-100 [BD Insulin Syringe Ultra-Fine] 0.5 mL 31 gauge x 5/16 syringe See Rx Instructions .Route Qty: 100 3RF Rx Instructions: Use 1 needle once a day (DME) pen needle, diabetic [1st Tier Unifine Pentips] 31 gauge x 5/16 needle See Rx Instructions .Route Qty: 100 4RF Rx Instructions: Use 1 pen needle once a day lorazepam 0.5 mg tablet 0.5 mg PO TID PRN (Reason: anxiety) 30 Days Qty: 90 0RF Rx Instructions: coverage for Ranjith [place] duloxetine [Cymbalta] 20 mg capsule,delayed release(DR/EC) 20 mg PO DAILY 90 Days Qty: 90 0RF albuterol sulfate [Ventolin HFA] 90 mcg/actuation HFA aerosol inhaler 2 puff inhalation Q6H PRN (Reason: shortness of breath or wheezing) 30 Days Qty: 8.5 3RF atorvastatin 40 mg tablet 40 mg PO BEDTIME 90 Days Qty: 90 3RF (DME) Accu-Chek Odilia Plus test strp Strip See Rx Instructions .Route Qty: 100 1RF Rx Instructions: Use 1 test strip once a day (DME) Accu-Chek Guide test strips Strip See Rx Instructions .Route Qty: 100 3RF Rx Instructions: Use 1 test strip once a day (DME) lancets [Accu-Chek Softclix Lancets] Misc See Rx Instructions .Route Qty: 100 3RF Rx Instructions: Use 1 lancet once a day ipratropium-albuterol 0.5 mg-3 mg(2.5 mg base)/3 mL solution for nebulization 3 ml inhalation Q4H PRN (Reason: shortness of breath or wheezing) Qty: 90 0RF oxycodone 5 mg tablet 5 mg PO BID PRN (Reason: Pain, Severe (Pain Scale 7-10)) Rx Instructions: Partial Fill upon patient request. levothyroxine 200 mcg tablet 200 mcg PO DAILY@0600 nystatin 100,000 unit/gram Powder 1 appl topical BID Qty: 30 0RF Protocol: Apply to: Apply to: Groin Changed bumetanide 1 mg tablet 1 mg PO DAILY Qty: 90 1RF Protocol: Hold for SBP< HOLD for SBP < : 90 insulin glargine [Basaglar KwikPen U-100 Insulin] 100 unit/mL (3 mL) insulin pen 25 unit subcut BEDTIME Qty: 15 0RF Held Jardiance 10 mg tablet 10 mg PO DAILY Qty: 90 1RF Hold Instructions: Resume on 12/27/24. Discharge Orders: Discharge Order (Routine); Ordered 11/04/24 Ordered By: Beltran Barfield Diet: Advance to usual diet Activity on Discharge: As tolerated Stand Alone Forms: Patient Portal Discharge page Print Language: Gibralt[place] Other Ambulatory Orders: Basic Metabolic Panel (Routine) Timeframe: 1 Week Facility: [facility] - Location: Laboratory Ordered By: Beltran Barfield Activity Restrictions/Additional Instructions: Bilateral Heels - Elevate heels off of bed or recliner surface with use of pillows. Apply skin prep to heels followed by foam dressings. Change every 5 days and PRN. At time of d/c to home patient should continue to off load pressure from bony prominences. Foam dressing can be continued if available. Triad should be continued to the sacral area to allow for healing and protect from moisture and friction. Patient advised if wearing brief to change once wet or soiled. follow up with wound care Recommend follow up out patient [facility] at [address] [place] [id number] and to call for an appointment at time of discharge. [phone].? Care Plan Goals: 79F PMH COPD on home O2, HFpEF, pernicious anemia, HTN, HLD insulin-dependent type 2 diabetes with neuropathy, CKD3, hypothyroidism, and mood disorder here with pain from pressure ulcer and incidental UTI, no speis, and acute on chronic renal failure complicated by metabolic acidosis: E coli UTI and bacteremia patient was on ceftriaxone and subsequently switched to p.o. Ceftin upon discharge and metabolic acidosis was thought to be related to Jardiance which is placed on hold, MARJORIE on CKD-was thought to be related to volume depletion/question of obstructive uropathy-seen by nephrology and Urology: Diuretics was placed on hold initially, Francisco placed and renal sono was repeated-on renal sono patient does not have hydronephrosis: Discussed with nephrology creatinine is stable between 2.7-2.8 range. Upon discharge nephrology recommended to adjust Bumex to 1 mg daily. Monitor BMP in 1 week outpatient. Urology recommended to continue Francisco-they will decide outpatient voiding trial. Patient had episode of brief hematuria which was requiring brief CBI-hematuria resolved. Patient is to follow-up with Nephrology and Urology outpatient. dm with hyperglycemia : lantus adjusted to 25units at bedtime ,moniter fs and further management outaptient. Patient has sore back from pressure ulcer(Poa): Seen by wound care: Instructions as above. Patient will be going home with VNA and PT. Health Concerns: as above. Plan of Treatment: Monitor BMP in 1 week outpatient. lantus adjusted to 25units at bedtime. Complete Ceftin 250 mg b.i.d. for 10 days. Bumex adjusted to 1 mg daily Jardiance is at hold until seen by Nephrology. Diabetic and CHF education given. Patient is to follow-up with Urology outpatient for Francisco as above. Patient is to follow out patiently with PCP, Nephro, urology. Assessment: As above. Patient Instructions: Kidney Infection (DC), Sepsis (GEN)
[2024-11-03 11:23] LABS: Glucose, Whole Blood 254 mg/dL (60-115)
[2024-11-03 13:43] LABS: Glucose, Whole Blood 312 mg/dL (60-115)
--- NOTE | 2024-11-03 13:54 | P.PNIM_ITS ---
Subjective Subjective Date of Service: 11/03/24 Interval History: ckd Review of Systems no new symptoms seems at her baseline Physical Exam 2 Vital Signs: Vital Signs: Last Vital Signs Temp 97.3 F 11/03/24 08:00 Pulse 77 11/03/24 11:22 Resp 20 11/03/24 11:22 BP 159/73 H 11/03/24 08:00 Pulse Ox 95 11/03/24 08:00 O2 Del Method Nasal Cannula 11/03/24 08:00 O2 Flow Rate 2 11/03/24 08:00 Oxygen Flow Rate 2 10/27/24 07:37 BMI result Body Mass Index 33.9 General: AO X 3, no acute distress Resp: air entry fair , no rales , has few rhonchii CVS: S1,S2,RRR GI: +BS, NT, no distention Skin: see pressure ulcer from earlier documentation Neuro: motor grossly intact Psych: appropriate affect Objective Data Active Medications Acetaminophen (Acetaminophen 325 Mg Tablet) 650 mg PO Q6H PRN PRN Reason: Pain, Mild 1-3,fever,headache Last Admin: 10/31/24 21:10 Dose: 650 mg Documented By: LUIS Albuterol Sulfate (Albuterol Sulfate 90 Mcg 8 Gm Inhaler) 2 puff INHALE Q6H PRN PRN Reason: shortness of breath or wheezing Last Admin: 10/30/24 01:44 Dose: 2 puff Documented By: GUIDO Albuterol/Ipratropium (Albuterol/Iprat 2.5/0.5mg 3 Ml Ampul.Neb) 3 ml INHALE Q4H PRN PRN Reason: shortness of breath or wheezing Last Admin: 11/03/24 03:43 Dose: 3 ml Documented By: VARSHA Albuterol/Ipratropium (Albuterol/Iprat 2.5/0.5mg 3 Ml Ampul.Neb) 3 ml INHALE RQ4H WHILE AWAKE [facility] Last Admin: 11/03/24 11:21 Dose: 3 ml Documented By: KATRINA Atorvastatin Calcium (Atorvastatin Calcium 40 Mg Tablet) 40 mg PO BEDTIME [facility] Last Admin: 11/02/24 19:53 Dose: 40 mg Documented By: LINDY Calcium Carbonate (Calcium Carbonate 750 Mg Tab.Chew) 750 mg PO Q4H PRN PRN Reason: Heartburn Cefuroxime Axetil (Cefuroxime Axetil 250 Mg Tablet) 250 mg PO Q12H [facility] Last Admin: 11/03/24 09:32 Dose: 250 mg Documented By: DENZEL Duloxetine HCl (Duloxetine Hcl 20 Mg Capsule.Dr) 20 mg PO DAILY [facility] Last Admin: 11/03/24 09:32 Dose: 20 mg Documented By: DENZEL Glucose (Glucose Gel 15 Gm Gel..Gram.) 15 gm PO Q15M PRN; Protocol PRN Reason: per Hypoglycemia Standing Ord. Dextrose (D10) 250 mls @ 750 mls/hr IV Q15M PRN; Protocol PRN Reason: per Hypoglycemia Standing Ord. Insulin Glargine (Insulin Glargine,Hum.Rec.Anlog 100 Unit/Ml 10 Ml Vial) 25 unit SUBCUT BEDTIME [facility] Last Admin: 11/02/24 19:52 Dose: 25 unit Documented By: LINDY Insulin Human Lispro (Insulin Lispro 100 Unit/Ml 3 Ml Vial) 0 unit SUBCUT QIDACHS [facility]; Protocol Last Admin: 11/03/24 13:44 Dose: 10 unit Documented By: DAVID Levothyroxine Sodium (Levothyroxine Sodium 200 Mcg Tablet) 200 mcg PO DAILY@0600 [facility] Last Admin: 11/03/24 06:34 Dose: 200 mcg Documented By: LINDY Magnesium Hydroxide (Milk Of Magnesia 30 Ml Oral.Susp) 30 ml PO DAILY PRN PRN Reason: Constipation Melatonin (Melatonin 3 Mg Tablet) 6 mg PO BEDTIME PRN PRN Reason: Insomnia Nystatin (Nystatin Powder 15 Gm Bottle) 1 appl TOPICAL BID [facility]; Protocol Last Admin: 11/03/24 09:33 Dose: Not Given Documented By: DENZEL Non-Admin Reason: Previously Administered Oxycodone HCl (Oxycodone Hcl Immed Release 5 Mg Tablet) 5 mg PO Q6H PRN PRN Reason: Pain, Severe (Pain Scale 7-10) Last Admin: 11/03/24 09:32 Dose: 5 mg Documented By: DENZEL Polyethylene Glycol (Polyethylene Glycol 3350 17 Gm Powd.Pack) 17 gm PO DAILY PRN PRN Reason: Constipation Sodium Chloride (0.9 % Sodium Chloride Flush 3 Ml Syringe) 3 ml IVFLUSH QSHIFT GEO Last Admin: 11/03/24 07:56 Dose: 3 ml Documented By: DAVID Labs 10/27/24 07:55 11/01/24 10:37 Labs: Laboratory Results - last 24 hr 11/02/24 11/02/24 11/03/24 16:48 19:37 07:18 POC Glucose 372 H* 347 H 230 H 11/03/24 11/03/24 11:16 13:30 POC Glucose 254 H 312 H Assessment and Plan (1) Gram-negative bacteremia: Status: Acute Plan 79F PMH COPD on home O2, HFpEF, pernicious anemia, HTN, HLD insulin-dependent type 2 diabetes with neuropathy, CKD3, hypothyroidism, and mood disorder here with pain from pressure ulcer and incidental UTI, no speis, and acute on chronic renal failure complicated by metabolic acidosis Ecoli UTI and Bacteremia, no sepsis, sensitive to ceftriaxone stop Ceftriaxone and change to Ceftin at DC probably for 10more days. Metabolic acidosis--without GAP, likely Jardiance induced acidosis, improved hold jardiance imptoving follow outpatient with nepjrology. Hydronephrosis MARJORIE on CKD4 cr in 2.7-2.8 range urology added renal us-does not show hydronephrosis d/w nephrology and urology:continue francisco nephro-MARJORIE due to obstructive uropathy with a component of volume depletion. Hematuria, likely traumatic -has Francisco- hematuria resolved. chronic respiratory failure d/t copd , no exacrebation -continue home inhalers -O2 to keep sat 88 to 92 chronic HFpEF, no exacerbation d/w nephro:adjusted bumex to 1mg po daily,hold jardiance because of metabolic acidosis. COPD, no exacerbation. HTN--in past was on Norvasc, but not on present med list continue Norvasc at 5 HLD-statin Insulin-dependent type 2 diabetes with hyperglycemia Sliding scale insulin, increase lantus 25, added 5 unit pre meal insulin (for sugars >200). Diabetic diet Sore back from pressure ulcer --POA, no evidence of infection wound care consult -frequent turning per nursing protocol Turn and Reposition every 2 hours and as needed for patient comfort.? Use pillows or wedges to support off loading positions. Off Load all bony prominences with use of pillows and heel boots if needed.? Apply Preventative foams where needed. ? Monitor for incontinence and moisture control, use barrier creams when needed for prevention and treatment. Provide adequate and supplemental nutrition.? Order low air loss mattress. When applicable maintain blood glucose levels per Providers order. Sacrum - Off Load Pressure? - Cleanse with PH balance spray or wipes, pat dry. ?Apply thin layer of Triad to wound bed. Do not remove all of paste between applications as this may cause further skin damage.? Cover with foam dressing to aid in off loading and protection from friction. Change two days and PRN. Bilateral Heels - Elevate heels off of bed with use of pillows. Apply skin prep to heels followed by foam dressings. Change every 3 days and PRN. DVT Prophylaxis: mech devices sec to hematuria. PT eval for possible rehab. Code: Full code ongoing need for hospitlisation: patient appealed discharge. Quality Stroke Does the patient have a stroke diagnosis?: No VTE Prior VTE?: No VTE Risk Level:: Medical - moderate - high VTE Device Contraindication: N/A - Device Ordered VTE Drug Contraindication: N/A - Med Ordered
[2024-11-03] MEDS: Acetaminophen 325 MG TABLET 650 MG PO (14:24)
[2024-11-03 16:30] LABS: Glucose, Whole Blood 218 mg/dL (60-115)
[2024-11-03] MEDS: Atorvastatin Calcium 40 MG TABLET PO (19:47)
[2024-11-03] MEDS: Nystatin Powder 15 GM BOTTLE 1 APPL TOPICAL (19:48)
[2024-11-03 20:11] LABS: Glucose, Whole Blood 348 mg/dL (60-115)
[2024-11-03] MEDS: Insulin Glargine,Hum.rec.anlog 100 UNIT/ML 10 ML VIAL 25 UNIT SUBCUT (20:18)
[2024-11-03] MEDS: Albuterol Sulfate 90 MCG 8 GM INHALER 2 PUFF INHALE (23:39)
[2024-11-04 03:18] VITALS: BP 126/60; PULSE 78; RESP 18; TEMP 36.2; O2SAT 99
[2024-11-04] MEDS: Albuterol Sulfate 90 MCG 8 GM INHALER 2 PUFF INHALE (04:08)
[2024-11-04] MEDS: Acetaminophen 325 MG TABLET 650 MG PO (04:09)
[2024-11-04] MEDS: Levothyroxine Sodium 200 MCG TABLET PO (05:53)
[2024-11-04] MEDS: oxyCODONE HCl Immed Release 5 MG TABLET PO ×2 (05:53→12:08)
[2024-11-04 07:42] VITALS: BP 136/63; PULSE 82; RESP 18; TEMP 36.2; O2SAT 97
[2024-11-04 07:48] LABS: Glucose, Whole Blood 160 mg/dL (60-115)
[2024-11-04] MEDS: Albuterol/Iprat 2.5/0.5MG 3 ML AMPUL.NEB INHALE ×2 (08:14→11:22)
--- NOTE | 2024-11-04 08:15 | PC.NURSE ---
Holding 5u scheduled 7:30 am insulin per MD as POC is 160, giving sliding scale 2u per MD
[2024-11-04 08:16] VITALS: PULSE 82; RESP 20; O2SAT 97
[2024-11-04] MEDS: Insulin Lispro 100 UNIT/ML 3 ML VIAL SUBCUT ×2 (08:23→12:08)
[2024-11-04] MEDS: DULoxetine HCl 20 MG CAPSULE.DR PO (08:23)
[2024-11-04] MEDS: Docusate Sodium 100 MG CAPSULE PO (08:24)
[2024-11-04] MEDS: cefuroxime axetiL 250 MG TABLET PO (08:24)
[2024-11-04] MEDS: 0.9 % Sodium Chloride Flush 3 ML SYRINGE IVFLUSH (08:24)
[2024-11-04] MEDS: Nystatin Powder 15 GM BOTTLE 1 APPL TOPICAL (08:32)
[2024-11-04 11:24] VITALS: PULSE 79; RESP 20; O2SAT 98
--- NOTE | 2024-11-04 11:27 | MHC.CM.PN ---
Patient has lost the appeal of discharge. Her son has been notified of the discharge. She will transport via BLS. supervisor beater room time is 1pm. Pts son will be there to let her in.
--- NOTE | 2024-11-04 11:44 | MHC.CLN ---
F/U DIET=DIAB 2000 KCAL. SUPPLEMENT ENSURE MAX BID PROVIDES 300 KCALS, 60 G PROTEIN. INTAKE AT MEALS 75-100%. STAGE III PRESSURE INJURY TO RIGHT BUTTOCKS AND DTI TO LEFT HEEL. SUPPLEMENT TO PROMOTE WOUND HEALING. MONITOR PO INTAKE AND ENCOURAGE SUPPLEMENTS.
[2024-11-04 11:52] LABS: Glucose, Whole Blood 191 mg/dL (60-115)
--- NOTE | 2024-11-04 13:01 | PC.NURSE ---
Education printed for SON in discharge paperwork on follow up, and [facility].
--- NOTE | 2024-11-08 13:10 | MHC.CM.PN ---
Received call from patient's son, Robbie, stating Dayna PRATT called an would not see mother because hospital did not send them all the paperwork. Call placed to Dayna. NORAHA: unable to see patient because she has not gone to her PCP in [address] Mccollum not willing to write orders until seen. Canceled appointments noted. Return call to patient and son. Explained they have to see Dr. Mccollum in order to have VNA. Patient has an appt on 12/21/24. Suggested they call office to attempt to gain earlier appointment or inquire regarding telehealth.
== END 2024-11-04 13:38 | disposition home health service (06) | DRG 689 ==
LOC: HO.ED 12:04 → HO.EDOVER 14:02 → HO.S3 20:07
PROVIDERS: Admitting Provider Internal Medicine; Emergency Provider Emergency Medicine; PCP Internal Medicine; Visit Provider Internal Medicine
DX: N13.6 Pyonephrosis (principal); L89.153 Pressure ulcer of sacral region, stage 3; E87.21 Acute metabolic acidosis; J96.11 Chronic respiratory failure with hypoxia; I13.0 Hypertensive heart and chronic kidney disease with heart failure and stage 1 through stage 4 chronic kidney disease, or unspecified chronic kidney disease; I50.32 Chronic diastolic (congestive) heart failure; R78.81 Bacteremia; B96.20 Unspecified Escherichia coli [E. coli] as the cause of diseases classified elsewhere; N18.4 Chronic kidney disease, stage 4 (severe); E11.40 Type 2 diabetes mellitus with diabetic neuropathy, unspecified; E03.9 Hypothyroidism, unspecified; I87.2 Venous insufficiency (chronic) (peripheral); E78.5 Hyperlipidemia, unspecified; E11.65 Type 2 diabetes mellitus with hyperglycemia; J44.9 Chronic obstructive pulmonary disease, unspecified; R31.9 Hematuria, unspecified; N17.9 Acute kidney failure, unspecified; E11.22 Type 2 diabetes mellitus with diabetic chronic kidney disease; D51.0 Vitamin B12 deficiency anemia due to intrinsic factor deficiency; Z99.81 Dependence on supplemental oxygen; Z20.822 Contact with and (suspected) exposure to COVID-19; Z87.891 Personal history of nicotine dependence; Z79.4 Long term (current) use of insulin; Z79.890 Hormone replacement therapy; Z79.899 Other long term (current) drug therapy
CPT/HCPCS: 0241U; 36415; 71045; 74176; 76775; 80048; 80051; 80053; 80076; 81001; 82010; 82803; 82947; 83605; 83735; 83880; 85025; 85610; 86140; 87040; 87077; 87086; 87088; 87186; 87205; 93005; 94640; 97110; 97162; 97530; 99285; C1758; J0696; J1644; J2270

== ENCOUNTER → 2024-10-27 07:33 | Outpatient (BNV) | payer MEDICARE, SELFPAY | PROVIDERS: Emergency Provider Emergency Medicine; PCP Internal Medicine; Visit Provider Radiology Diagnostic Radiology | DX: I51.7 Cardiomegaly (principal); N13.39 Other hydronephrosis; N28.1 Cyst of kidney, acquired | CPT/HCPCS: 71045; 74176 ==

== ENCOUNTER → 2024-10-27 07:33 | Outpatient (BNV) | payer MEDICARE, SELFPAY | PROVIDERS: Admitting Provider Internal Medicine; Emergency Provider Emergency Medicine; PCP Internal Medicine; Visit Provider Internal Medicine Cardiovascular Disease | DX: R94.31 Abnormal electrocardiogram [ECG] [EKG] (principal) | CPT/HCPCS: 93010 ==

== ENCOUNTER 2024-10-27 13:51 | Outpatient (BNV) | payer MEDICARE, MEDICAID, SELFPAY | END 2024-11-02 15:16 | PROVIDERS: Admitting Provider Internal Medicine; Emergency Provider Emergency Medicine; PCP Internal Medicine; Visit Provider Radiology Diagnostic Radiology | DX: N28.9 Disorder of kidney and ureter, unspecified (principal); N28.1 Cyst of kidney, acquired | CPT/HCPCS: 76775 ==

== ENCOUNTER → 2024-10-27 13:51 | Outpatient (BNV) | payer MEDICARE, SELFPAY | PROVIDERS: Admitting Provider Internal Medicine; Emergency Provider Emergency Medicine; PCP Internal Medicine; Visit Provider Internal Medicine Nephrology | DX: N13.30 Unspecified hydronephrosis (principal); N17.9 Acute kidney failure, unspecified; N18.30 Chronic kidney disease, stage 3 unspecified | CPT/HCPCS: 99223; 99232 ==

== ENCOUNTER → 2024-10-27 13:51 | Outpatient (BNV) | payer MEDICARE, MEDICAID, SELFPAY | PROVIDERS: Admitting Provider Internal Medicine; Emergency Provider Emergency Medicine; PCP Internal Medicine; Visit Provider Internal Medicine | DX: R78.81 Bacteremia (principal); N13.30 Unspecified hydronephrosis; R31.9 Hematuria, unspecified | CPT/HCPCS: 99222 ==

== ENCOUNTER → 2024-10-27 13:51 | Outpatient (BNV) | payer MEDICARE, MEDICAID, SELFPAY | PROVIDERS: Admitting Provider Internal Medicine; Emergency Provider Emergency Medicine; PCP Internal Medicine; Visit Provider Urology | DX: N17.9 Acute kidney failure, unspecified (principal); N18.9 Chronic kidney disease, unspecified; N39.0 Urinary tract infection, site not specified; R31.9 Hematuria, unspecified; N13.30 Unspecified hydronephrosis | CPT/HCPCS: 99222 ==

== ENCOUNTER → 2024-10-27 13:51 | Outpatient (BNV) | payer MEDICARE, MEDICAID, SELFPAY | PROVIDERS: Admitting Provider Internal Medicine; Emergency Provider Emergency Medicine; PCP Internal Medicine; Visit Provider Student in an Organized Health Care Education/Training Program | DX: R78.81 Bacteremia (principal); N13.30 Unspecified hydronephrosis; E87.21 Acute metabolic acidosis | CPT/HCPCS: 99223; 99231; 99232; 99239; 99499; G0180 ==

== ENCOUNTER 2024-11-21 10:40 | Emergency (ER) | payer MEDICARE, MEDICAID, SELFPAY ==
--- NOTE | 2024-11-21 10:52 | ED.GENADULT ---
HPI - General Adult General Chief complaint: Urogenital-Female Stated complaint: CATH ISSUE PER EMS Time Seen by Provider: 11/21/24 10:51 Source: patient, EMS, RN notes reviewed and old records reviewed Mode of arrival: EMS Limitations: no limitations History of Present Illness ED Provider: Mayte HPI narrative: Patient is a 79-year-old female with history of anemia, LBBB, obesity, chronic pain syndrome, anxiety, COPD, CHF, hypothyroidism, HTN, DM, hypercholesterolemia presenting to the ED with complaint of her indwelling urinary catheter leaking since this morning. States she had it placed a few weeks ago for urinary retention. She denies any fevers, body aches, abdominal pain or back pain. Has not noted any hematuria in her drainage bag. MD complaint: catheter leaking Onset (ago): hour(s) Associated symptoms: denies other symptoms Treatments prior to arrival: none Related Data Home Medications ?Medication ?Instructions ?Recorded ?Confirmed levothyroxine 200 mcg tablet 200 mcg PO DAILY@0600 06/19/24 11/07/24 oxycodone 5 mg tablet 5 mg PO BID PRN Pain, Severe (Pain 10/27/24 11/07/24 Scale 7-10) Previous Rx's ?Medication ?Instructions ?Recorded insulin syringe-needle U-100 0.5 #100 ea 07/29/23 mL 31 gauge x 5/16 (BD Insulin Syringe Ultra-Fine) pen needle, diabetic 31 gauge x #100 ea 07/29/23 5/16 (1st Tier Unifine Pentips) lorazepam 0.5 mg tablet 0.5 mg PO TID PRN anxiety 30 days 04/04/24 #90 tabs duloxetine 20 mg capsule,delayed 20 mg PO DAILY 90 days #90 caps 05/14/24 release (Cymbalta) albuterol sulfate 90 mcg/actuation 2 puff inhalation Q6H PRN 05/31/24 aerosol inhaler (Ventolin HFA) shortness of breath or wheezing 30 days #8.5 grams atorvastatin 40 mg tablet 40 mg PO BEDTIME 90 days #90 tabs 06/19/24 blood sugar diagnostic (Accu-Chek #100 ea 07/26/24 Odilia Plus test strips) empagliflozin 10 mg tablet 10 mg PO DAILY #90 tabs 07/26/24 (Jardiance) nystatin 100,000 unit/gram topical 1 appl topical BID #30 grams 08/09/24 powder ipratropium 0.5 mg-albuterol 3 mg 3 ml inhalation Q4H PRN shortness 10/16/24 (2.5 mg base)/3 mL nebulization of breath or wheezing #90 mL soln bumetanide 1 mg tablet 1 mg PO DAILY #90 tabs 11/03/24 cefuroxime axetil 250 mg tablet 250 mg PO Q12H #18 tabs 11/03/24 insulin glargine 100 unit/mL (3 25 unit (0.25 mL) subcut BEDTIME 11/04/24 mL) subcutaneous pen (Basaglar #15 mL KwikPen U-100 Insulin) blood sugar diagnostic (Accu-Chek #100 ea 11/08/24 Guide test strips) lancets (Accu-Chek Softclix #100 ea 11/08/24 Lancets) Allergies Allergy/AdvReac Type Severity Reaction Status Date / Time ibuprofen [From Motrin] Allergy Unknown swelling Verified 11/21/24 11:03 codeine [CODEINE] AdvReac Unknown SLEEPY Verified 10/27/24 07:38 Review of Systems Review of Systems: As per HPI Yes all other systems are reviewed and are negative Constitutional: Constitutional: Reports as per HPI PMFSH Past Medical History Medical History Anemia Herpes zoster MARJORIE (acute kidney injury) Left bundle branch block Morbid obesity Chronic pain syndrome Anxiety Pernicious anemia COPD (chronic obstructive pulmonary disease) CHF (congestive heart failure) Hypothyroidism Essential hypertension Diabetes mellitus Pure hypercholesterolemia Surgical History H/O left knee surgery Deficient knowledge of leg surgery History of tonsillectomy and adenoidectomy History of appendectomy Family History Family History Father CVD (cardiovascular disease) Mother No problems noted. Family/Other FH: mental illness Social History Social History Household Members: Children Housing: Apartment Do you presently have visiting nurse or other home services: No Alcohol intake: unknown Patient Tobacco Use Status: Former Tobacco user Tobacco use type: Cigarette e-Cigarette/Vaping Use: Never Used Second Hand Smoke Exposure: No Advance Directives: Yes Advance Directives on File: Yes Advance Directives Date on File: 06/24/24 service: No Current occupational status: disabled Cognitive needs: Yes Hearing needs: No Vision needs: No Physical Exam ED Vital Signs: Vital Signs - 24 hr 11/21/24 11:01 Temperature 98.1 F Pulse Rate 68 Respiratory Rate 19 Blood Pressure 164/95 H Pulse Oximetry 95 Oxygen Delivery Method Nasal Cannula BMI result Body Mass Index 34.8 Vital signs have been reviewed and appear to be correct. Blood pressure elevated. Heart rate normal. Respiratory rate normal. Temperature normal. Oxygen saturation normal. Const General: cooperative, no acute distress and ill appearing chronically Nutritional Appearance: obese Orientation/consciousness: oriented to person, oriented to place, oriented to time and patient oriented x3 Limitations: no limitations HENMT Head: Yes normocephalic and Yes atraumatic Ears: external ears normal General nose exam: Normal external nose present Face and sinus: Yes face symmetric Mouth: oropharynx normal and moist mucous membranes Throat: Yes uvula midline Eyes Pupils: Equal, round and reactive pupils present Neck Neck: Yes normal visual inspection and Yes supple Resp Effort & Inspection: normal respiratory effort and able to speak in complete sentences Auscultation: clear to auscultation bilaterally Cardio Rate: regular rate Rhythm: regular rhythm Heart sounds: S1 normal heart sound present and S2 normal heart sound present GI Palpation (GI): Soft to palpation and nontender Auscultation: normoactive bowel sounds Other: indwelling urinary catheter with urine draining into bag, no hematuria General: Yes no CVA tenderness Back/Spine/Pelvis Back: no CVA tenderness Skin General skin exam: elasticity normal and turgor normal Wounds: wounds noted (erythema with mild excoriation to right buttock, improved compared to 10/27) Neuro General: oriented to person, oriented to place, oriented to time, patient oriented x3, moves all extremities, no focal motor deficits and CN's II-XI intact bilaterally Cranial nerves: Yes Equal, round and reactive pupils present Cognition (Neuro): normal cognition Extrem General: Yes full ROM, Yes no pedal edema and Yes no calf tenderness Psych Mental Status: mental status grossly normal Affect: normal affect Thought process: Normal thought process present Medications Administered Discontinued Medications Generic Name Dose Route Start Last Admin Trade Name Freq PRN Reason Stop Dose Admin Albuterol Sulfate 2 puff 11/21/24 12:37 11/21/24 12:51 Albuterol Sulfate 90 Mcg 8 Gm Inhaler INHALE 11/21/24 12:38 2 puff ONCE ONE Administration Medical Decision Making Medical Decision Making [facility] Narrative: Patient is a 79-year-old female with history of anemia, LBBB, obesity, chronic pain syndrome, anxiety, COPD, CHF, hypothyroidism, HTN, DM, hypercholesterolemia, CKD3 presenting to the ED with complaint of her indwelling urinary catheter leaking since this morning. On exam patient is awake, A+Ox3, BP elevated, VS otherwise WNL, afebrile, normal neurological exam without focal deficits, physical exam findings as above. Given reported symptoms and physical exam findings, initial differential includes but is not limited to catheter malfunction, UTI, pyelonephritis. Will replace catheter as current catheter contaminated with stool, patient reports frequent episodes of bowel incontinence. Urinalysis notable for 3+ leukocytes, 3+ blood, 3+ protein, >50WBCs, and WBC clumps present. Case discussed with attending MD, Dr. Davis, who notes that patient frequently has large amount of leukocytes and WBCs as well as blood. Patient was treated for UTI on 10/27/24. Dr. Davis recommends holding off on additional antibiotics until urine culture is back. Indwelling catheter changed without complications. Follow up with PCP/urology. Return precautions discussed. Patient verbalized understanding of and agreement with plan. Differential Diagnosis Differential Diagnoses: The differential diagnosis associated with the presentation includes As per [facility] Admission/Observation Consideration of admission/observation: Escalation of care including admission/observation considered Patient would have been admitted to the hospital had their work up had any findings where hospital admission was appropriate and their clinical presentation warranted hospital admission. Lab Data [facility] Lab Attestation statement: I reviewed the patient's lab results. As per [facility] Labs: Lab Results 11/21/24 Range/Units 13:30 Urine Color Yellow Urine Appearance Turbid Urine pH 6.0 (5.0-9.0) Ur Specific [place] 1.015 (1.005-1.025) Urine Protein 300 (3+) H (Neg-Trace) mg/dL Urine Glucose (UA) >=1000 H (Negative) mg/dL Urine Ketones Negative (Negative) mg/dL Urine Blood Large (3+) H (Negative) Urine Nitrite Negative (Negative) Ur Leukocyte Esterase Large (3+) H (Negative) Urine RBC >20 H (0-2) /HPF Urine WBC >50 H (0-5) /HPF Urine WBC Clumps Present Ur Squamous Epith Cells 0-2 (0-2) /HPF Urine Bacteria Trace (None Seen) Hyaline Casts 0-2 (0-2) /LPF External Record Review External record reviewed: Inpatient record, Office record and Outpatient record Prescription Management I considered prescription management with: Antibiotic (see MDM) Discharge Plan Discharge Clinical Impression: Urinary catheter complication Patient Disposition: Home, Self-Care Additional Instructions: You were evaluated in the emergency department today for a leaking urinary catheter. The catheter was replaced in the ED today. Your urine results are pending and you will be contacted via telephone if you require antibiotics. Please follow up with your primary care provider and urologist as needed. Return to the emergency department if you have any additional complications with your catheter or for any other new or concerning symptoms. Prescriptions: No Action (DME) insulin syringe-needle U-100 [BD Insulin Syringe Ultra-Fine] 0.5 mL 31 gauge x 5/16 syringe See Rx Instructions .Route Qty: 100 3RF Rx Instructions: Use 1 needle once a day (DME) pen needle, diabetic [1st Tier Unifine Pentips] 31 gauge x 5/16 needle See Rx Instructions .Route Qty: 100 4RF Rx Instructions: Use 1 pen needle once a day lorazepam 0.5 mg tablet 0.5 mg PO TID PRN (Reason: anxiety) 30 Days Qty: 90 0RF Rx Instructions: coverage for Ranjith Dale duloxetine [Cymbalta] 20 mg capsule,delayed release(DR/EC) 20 mg PO DAILY 90 Days Qty: 90 0RF albuterol sulfate [Ventolin HFA] 90 mcg/actuation HFA aerosol inhaler 2 puff inhalation Q6H PRN (Reason: shortness of breath or wheezing) 30 Days Qty: 8.5 3RF atorvastatin 40 mg tablet 40 mg PO BEDTIME 90 Days Qty: 90 3RF Jardiance 10 mg tablet 10 mg PO DAILY Qty: 90 1RF (DME) Accu-Chek Odilia Plus test strp Strip See Rx Instructions .Route Qty: 100 1RF Rx Instructions: Use 1 test strip once a day ipratropium-albuterol 0.5 mg-3 mg(2.5 mg base)/3 mL solution for nebulization 3 ml inhalation Q4H PRN (Reason: shortness of breath or wheezing) Qty: 90 0RF (DME) Accu-Chek Guide test strips Strip See Rx Instructions .Route Qty: 100 3RF Rx Instructions: Use 1 test strip once a day (DME) lancets [Accu-Chek Softclix Lancets] [facility] See Rx Instructions .Route Qty: 100 3RF Rx Instructions: Use 1 lancet once a day oxycodone 5 mg tablet 5 mg PO BID PRN (Reason: Pain, Severe (Pain Scale 7-10)) Rx Instructions: Partial Fill upon patient request. bumetanide 1 mg tablet 1 mg PO DAILY Qty: 90 1RF Protocol: Hold for SBP< HOLD for SBP < : 90 cefuroxime axetil 250 mg tablet 250 mg PO Q12H Qty: 18 0RF insulin glargine [Basaglar KwikPen U-100 Insulin] 100 unit/mL (3 mL) insulin pen 25 unit subcut BEDTIME Qty: 15 0RF levothyroxine 200 mcg tablet 200 mcg PO DAILY@0600 nystatin 100,000 unit/gram Powder 1 appl topical BID Qty: 30 0RF Protocol: Apply to: Apply to: Groin Referrals: [facility] Urology Services [Provider Group] Print Language: [place]er
[2024-11-21 11:01] VITALS: BP 164/95; BP 172/81; PULSE 68; PULSE 76; RESP 19; TEMP 36.7; O2SAT 95; O2SAT 99; BMI 34.8
[2024-11-21] MEDS: Albuterol Sulfate 90 MCG 8 GM INHALER 2 PUFF INHALE (12:51)
[2024-11-21 13:56] LABS: Appearance Urine Turbid; Color Urine Yellow; Glucose Urine UA >=1000 mg/dL (Negative); Leukocyte Esterase Urine Large (3+) (Negative); Nitrite Urine Negative (Negative); Specific Gravity - Urine 1.015 (1.005-1.025); UMIC TRIGGER UACC YES; Urine Blood Large (3+) (Negative); Urine Ketones Negative (Negative); Urine Protein 300 (3+) mg/dL (Neg-Trace)
[2024-11-21 13:58] LABS: Bacteria Urine Trace (None Seen); Hyaline Casts Urine 0-2 /LPF (0-2); RBC Urine >20 /HPF (0-2); Squamous Epithelial Cell Urine 0-2 /HPF (0-2); UACC Culture Trigger YES; WBC Clumps Urine Present; WBC Urine >50 /HPF (0-5)
--- OUTSIDE RECORDS SUMMARY | 2024-11-21 16:09 | XMS_ITS | Encounter Summary ---
Author Organization [employer] Address [address] [place] [address] Care Team Providers Care Vision Care Associate Name Role Phone Hal Cole MD Primary Care Provider [phone] Encounter Details Date Type Department Care Team (Late st Contact Info) Description 09/28/2024 Lab Requisition [facility] - Main Lab [address] [facility] [place] [address] Hal Cole MD [address] [place] [address], [phone] Essential (primary) hypertension; Chronic obstructive pulmonary disease, unspecified (CMS/HCC) Social History Tobacco Use Types Packs/Day Years Used Date Smoking Tobacco: Never Assessed Sex and Gender Information Value Date Recorded Sex Assigned at Not on file Gender Identity Not on file Sexual Orientation Not on file documented as of this encounter Plan of Treatment Not on file documented as of this encounter Procedures Procedure Name Priority Date/Time Associated Diagnosis Comments THYROID STIMULATING HORMONE WITH REFLEX TO FREE T4 AND FREE T3 Routine 09/28/2024 7:04 AM EST Essential (primary) hypertension Chronic obstructive pulmonary disease, unspecified (CMS/HCC) FREE THYROXINE WITH REFLEX TO FREE TRIIODOTHYRONINE Routine 09/28/2024 7:04 AM EST Essential (primary) hypertension Chronic obstructive pulmonary disease, unspecified (CMS/HCC) COMPLETE BLOOD COUNT Routine 09/28/2024 7:04 AM EST Essential (primary) hypertension Chronic obstructive pulmonary disease, unspecified (CMS/HCC) TRIIODOTHYRONINE FREE Routine 09/28/2024 7:04 AM EST Essential (primary) hypertension Chronic obstructive pulmonary disease, unspecified (CMS/HCC) BASIC METABOLIC PANEL Routine 09/28/2024 7:04 AM EST Essential (primary) hypertension Chronic obstructive pulmonary disease, unspecified (CMS/HCC) documented in this encounter Results * (ABNORMAL) Triiodothyronine free (09/28/2024 7:04 AM EST) T3, Free 148(L) 230 - 420 pcg/dL LAB CHEMISTRY METHOD 09/28/2024 1:08 PM EST [facility] Blood Venous blood specimen / Unknown Venipuncture / Unknown 09/28/2024 7:04 AM EST 09/28/2024 11:03 AM EST Hal Cole MD LAB BLOOD ORDERABLES Performing Organization Address [facility]/ZIP Co de Phone Number [facility] [address] [place] [address], * Free thyroxine with reflex to free triiodothyronine (09/28/2024 7:04 AM EST) Pathologist [facility] Free T4 0.88 0.70 - 1.80 ng/dL LAB CHEMISTRY METHOD 09/28/2024 12:41 PM EST [facility] Blood Venous blood specimen / Unknown Venipuncture / Unknown 09/28/2024 7:04 AM EST 09/28/2024 11:03 AM EST Hal Cole MD LAB BLOOD ORDERABLES [facility] [address] [place] [address], * (ABNORMAL) Thyroid stimulating hormone with reflex to free t4 and free t3 (09/28/2024 7:04 AM EST) TSH 50.98(H) 0.40 - 4.00 mcIU/mL LAB CHEMISTRY METHOD 09/28/2024 12:15 PM EST [facility] Blood Venous blood specimen / Unknown Venipuncture / Unknown 09/28/2024 7:04 AM EST 09/28/2024 11:03 AM EST Hal Cole MD LAB BLOOD ORDERABLES [facility] [address] [place] [address], * (ABNORMAL) Basic metabolic panel (09/28/2024 7:04 AM EST) Sodium 141 133 - 145 mmol/L LAB CHEMISTRY METHOD 09/28/2024 12:06 PM [facility] Potassium 4.2 3.5 - 5.5 mmol/L LAB CHEMISTRY METHOD 09/28/2024 12:06 PM [facility] Chloride 106 96 - 110 mmol/L LAB CHEMISTRY METHOD 09/28/2024 12:06 PM [facility] CO2 29 21 - 32 mmol/L LAB CHEMISTRY METHOD 09/28/2024 12:06 PM [facility] Anion Gap 6 3 - 11 LAB CHEMISTRY METHOD 09/28/2024 12:06 PM [facility] Glucose 139(H) 70 - 100 mg/dL LAB CHEMISTRY METHOD 09/28/2024 12:06 PM [facility] BUN 67(H) 5 - 25 mg/dL LAB CHEMISTRY METHOD 09/28/2024 12:06 PM [facility] Creatinine 1.83(H) 0.50 - 1.10 mg/dL LAB CHEMISTRY METHOD 09/28/2024 12:06 PM [facility] eGFR 28(L) >=60 mL/min/1. 73m2 LAB CHEMISTRY METHOD 09/28/2024 12:06 PM [facility] Comment:Calculation based on the??Chronic Kidney Disease Epidemiology Collaboration (CKD-EPI) equation refit??without adjustment for race. BUN/Creatinine Ratio 36.6 LAB CHEMISTRY METHOD 09/28/2024 12:06 PM [facility] Calcium 8.3(L) 8.5 - 10.5 mg/dL LAB CHEMISTRY METHOD 09/28/2024 12:06 PM [facility] Blood Venous blood specimen / Unknown Venipuncture / Unknown 09/28/2024 7:04 AM EST 09/28/2024 11:03 AM EST Hal Cole MD LAB BLOOD ORDERABLES [facility] [address] [place] [address], * (ABNORMAL) Complete blood count (09/28/2024 7:04 AM EST) WBC 7.1 4.8 - 10.8 K/mcL LAB HEMETOLOGY METHOD 09/28/2024 11:31 AM [facility] RBC 3.70(L) 3.80 - 4.80 M/[facility] LAB HEMETOLOGY METHOD 09/28/2024 11:31 AM [facility] Hemoglobin 10.8(L) 11.5 - 16.0 g/dL LAB HEMETOLOGY METHOD 09/28/2024 11:31 AM [facility] Hematocrit 36.0 35.0 - 47.0 % LAB HEMETOLOGY METHOD 09/28/2024 11:31 AM [facility] MCV 96.5 79.0 - 98.0 FL LAB HEMETOLOGY METHOD 09/28/2024 11:31 AM [facility] MCH 29.0 27.0 - 32.0 pcg LAB HEMETOLOGY METHOD 09/28/2024 11:31 AM [facility] MCHC 30.0(L) 32.0 - 37.0 g/dL LAB HEMETOLOGY METHOD 09/28/2024 11:31 AM [facility] RDW 13.5 11.0 - 15.0 % LAB HEMETOLOGY METHOD 09/28/2024 11:31 AM EST [facility] Platelets 214 130 - 400 K/mcL LAB HEMETOLOGY METHOD 09/28/2024 11:31 AM EST [facility] MPV 9.9 7.0 - 11.0 FL LAB HEMETOLOGY METHOD 09/28/2024 11:31 AM EST [facility] NRBC 0.0 <1.0 % LAB HEMETOLOGY METHOD 09/28/2024 11:31 AM EST [facility] NRBC Absolute 0.00 <0.10 K/mcL LAB HEMETOLOGY METHOD 09/28/2024 11:31 AM [facility] Blood Venous blood specimen / Unknown Venipuncture / Unknown 09/28/2024 7:04 AM EST 09/28/2024 11:03 AM EST Hal Cole MD LAB BLOOD ORDERABLES [facility] [address] [place] [address], documented in this encounter Visit Diagnoses Diagnosis Essential (primary) hypertension Unspecified essential hypertension Chronic obstructive pulmonary disease, unspecified (CMS/HCC) documented in this encounter Care Teams Vision Care Associate Relationship Specialty Start Date End Date Hal Cole MD [address] [place] [address], [phone] PCP - General Family Medicine 09/15/24 documented as of this encounter
--- OUTSIDE RECORDS SUMMARY | 2024-11-21 16:09 | XMS_ITS | Encounter Summary ---
Author Organization [employer] [facility] Address [address] [place] [address] Care Team Providers Care Rotary Veneer Machine Operator Name Role Phone aHl Cole MD Primary Care Provider [phone] Encounter Details Date Type Department Care Team (Late st Contact Info) Description 09/21/2024 Lab Requisition [facility] - Main Lab [address] [place] [address] Hal Cole MD [address] [place] [address], [phone] Chronic kidney disease, unspecified Social History Tobacco Use Types Packs/Day Years Used Date Smoking Tobacco: Never Assessed Sex and Gender Information Value Date Recorded Sex Assigned at Not on file Gender Identity Not on file Sexual Orientation Not on file documented as of this encounter Plan of Treatment Not on file documented as of this encounter Procedures Procedure Name Priority Date/Time Associated Diagnosis Comments BASIC METABOLIC PANEL Routine 09/21/2024 7:31 AM EST Chronic kidney disease, unspecified documented in this encounter Results * (ABNORMAL) Basic metabolic panel (09/21/2024 7:31 AM EST) Sodium 143 133 - 145 mmol/L LAB CHEMISTRY METHOD 09/21/2024 12:11 PM EST [facility] Potassium 4.2 3.5 - 5.5 mmol/L LAB CHEMISTRY METHOD 09/21/2024 12:11 PM EST [facility] Chloride 107 96 - 110 mmol/L LAB CHEMISTRY METHOD 09/21/2024 12:11 PM EST [facility] CO2 26 21 - 32 mmol/L LAB CHEMISTRY METHOD 09/21/2024 12:11 PM EST [facility] Anion Gap 10 3 - 11 LAB CHEMISTRY METHOD 09/21/2024 12:11 PM [facility] Glucose 126(H) 70 - 100 mg/dL LAB CHEMISTRY METHOD 09/21/2024 12:11 PM [facility] BUN 49(H) 5 - 25 mg/dL LAB CHEMISTRY METHOD 09/21/2024 12:11 PM [facility] Creatinine 1.58(H) 0.50 - 1.10 mg/dL LAB CHEMISTRY METHOD 09/21/2024 12:11 PM [facility] eGFR 34(L) >=60 mL/min/1. 73m2 LAB CHEMISTRY METHOD 09/21/2024 12:11 PM [facility] Comment:Calculation based on the??Chronic Kidney Disease Epidemiology Collaboration (CKD-EPI) equation refit??without adjustment for race. BUN/Creatinine Ratio 31.0 LAB CHEMISTRY METHOD 09/21/2024 12:11 PM [facility] Calcium 8.4(L) 8.5 - 10.5 mg/dL LAB CHEMISTRY METHOD 09/21/2024 12:11 PM [facility] Blood Venous blood specimen / Unknown Venipuncture / Unknown 09/21/2024 7:31 AM EST 09/21/2024 9:59 AM EST Hal Cole MD LAB BLOOD ORDERABLES [facility] [address] [place] [address], documented in this encounter Visit Diagnoses Diagnosis Chronic kidney disease, unspecified documented in this encounter Care Teams Rotary Veneer Machine Operator Relationship Specialty Start Date End Date Hal Cole MD [address] [place] [address], [phone] PCP - General Family Medicine 09/15/24 documented as of this encounter
--- OUTSIDE RECORDS SUMMARY | 2024-11-21 16:09 | XMS_ITS | Encounter Summary ---
Author Organization [employer] Address [address] [place] [address] Care Team Providers Care Electrical And Radio Mechanic Name Role Phone Hal Cole MD Primary Care Provider [phone] Encounter Details Date Type Department Care Team (Late st Contact Info) Description 08/27/2024 Lab Requisition [facility] - Main Lab [address] [facility] [place] [address] Hal Cole MD [address] [place] [address], [phone] Type 2 diabetes mellitus without complications (CMS/HCC); Chronic obstructive pulmonary disease, unspecified (CMS/HCC) Social [...] Procedure Name Priority Date/Time Associated Diagnosis Comments TRAVEL PHLEBOTOMY FEE Routine 08/29/2024 5:30 AM EST Type 2 diabetes mellitus without complications (CMS/HCC) Chronic obstructive pulmonary disease, unspecified (CMS/HCC) COMPLETE BLOOD COUNT Routine 08/29/2024 5:30 AM EST Type 2 diabetes mellitus without complications (CMS/HCC) Chronic obstructive pulmonary disease, unspecified (CMS/HCC) BASIC METABOLIC PANEL Routine 08/29/2024 5:30 AM EST Type 2 diabetes mellitus without complications (CMS/HCC) Chronic obstructive pulmonary disease, unspecified (CMS/HCC) documented in this encounter Results * Travel phlebotomy fee (08/29/2024 5:30 AM EST) [facility] TRAVEL PHLEBOTOMY FEE Completed 08/29/2024 10:01 AM [facility] Blood Venous blood specimen / Unknown Venipuncture / Unknown 08/29/2024 5:30 AM EST 08/29/2024 9:51 AM EST Hal Cole MD LAB BLOOD ORDERABLES [facility] [address] [place] [address], * (ABNORMAL) Basic metabolic panel (08/29/2024 5:30 AM EST) [facility] Sodium 137 133 - 145 mmol/L LAB CHEMISTRY METHOD 08/29/2024 10:57 AM [facility] Potassium 5.0 3.5 - 5.5 mmol/L LAB CHEMISTRY METHOD 08/29/2024 10:57 AM [facility] Comment:Hemolysis present Chloride 101 96 - 110 mmol/L LAB CHEMISTRY METHOD 08/29/2024 10:57 AM [facility] CO2 29 21 - 32 mmol/L LAB CHEMISTRY METHOD 08/29/2024 10:57 AM [facility] Anion Gap 7 3 - 11 LAB CHEMISTRY METHOD 08/29/2024 10:57 AM [facility] Glucose 156(H) 70 - 100 mg/dL LAB CHEMISTRY METHOD 08/29/2024 10:57 AM [facility] BUN 62(H) 5 - 25 mg/dL LAB CHEMISTRY METHOD 08/29/2024 10:57 AM [facility] Creatinine 1.63(H) 0.50 - 1.10 mg/dL LAB CHEMISTRY METHOD 08/29/2024 10:57 AM [facility] eGFR 33(L) >=60 mL/min/1. 73m2 LAB CHEMISTRY METHOD 08/29/2024 10:57 AM [facility] Comment:Calculation based on the??Chronic Kidney Disease Epidemiology Collaboration (CKD-EPI) equation refit??without adjustment for race. BUN/Creatinine Ratio 38.0 LAB CHEMISTRY METHOD 08/29/2024 10:57 AM [facility] Calcium 8.8 8.5 - 10.5 mg/dL LAB CHEMISTRY METHOD 08/29/2024 10:57 AM [facility] Blood Venous blood specimen / Unknown Venipuncture / Unknown 08/29/2024 5:30 AM EST 08/29/2024 9:51 AM EST Hal Cole MD LAB BLOOD ORDERABLES [facility] [address] [place] [address], * (ABNORMAL) Complete blood count (08/29/2024 5:30 AM EST) WBC 8.4 4.8 - 10.8 K/mcL LAB HEMETOLOGY METHOD 08/29/2024 10:59 AM [facility] RBC 4.00 3.80 - 4.80 M/mcL LAB HEMETOLOGY METHOD 08/29/2024 10:59 AM [facility] Hemoglobin 11.6 11.5 - 16.0 g/dL LAB HEMETOLOGY METHOD 08/29/2024 10:59 AM [facility] Hematocrit 39.0 35.0 - 47.0 % LAB HEMETOLOGY METHOD 08/29/2024 10:59 AM [facility] MCV 98.5(H) 79.0 - 98.0 FL LAB HEMETOLOGY METHOD 08/29/2024 10:59 AM [facility] MCH 29.3 27.0 - 32.0 pcg LAB HEMETOLOGY METHOD 08/29/2024 10:59 AM [facility] MCHC 29.7(L) 32.0 - 37.0 g/dL LAB HEMETOLOGY METHOD 08/29/2024 10:59 AM EST [facility] RDW 13.5 11.0 - 15.0 % LAB HEMETOLOGY METHOD 08/29/2024 10:59 AM [facility] Platelets 308 130 - 400 K/mcL LAB HEMETOLOGY METHOD 08/29/2024 10:59 AM [facility] MPV 9.9 7.0 - 11.0 FL LAB HEMETOLOGY METHOD 08/29/2024 10:59 AM [facility] NRBC 0.0 <1.0 % LAB HEMETOLOGY METHOD 08/29/2024 10:59 AM [facility] NRBC Absolute 0.00 <0.10 K/mcL LAB HEMETOLOGY METHOD 08/29/2024 10:59 AM [facility] Blood Venous blood specimen / Unknown Venipuncture / Unknown 08/29/2024 5:30 AM EST 08/29/2024 9:51 AM EST Hal Cole MD LAB BLOOD ORDERABLES [facility] [address] [phone] documented in this encounter Visit Diagnoses Diagnosis Type 2 diabetes mellitus without complications (CMS/HCC) Chronic obstructive pulmonary disease, unspecified (CMS/HCC) documented in this encounter Care Teams Electrical And Radio Mechanic Relationship Specialty Start Date End Date Hal Cole MD [address] [place] [address], [phone] PCP - General Family Medicine 09/15/24 documented as of this encounter
--- OUTSIDE RECORDS SUMMARY | 2024-11-21 16:09 | XMS_ITS | Clinical Summary ---
Author Organization [facility] Address [address] [place] [address] Phone Care Team Providers Care Improvement Specialist Name Role Phone Neida Mirza MD Primary Care Provider [phone] Allergies Active Allergy Reactions Criticality Noted Date Comments Codeine 05/31/2019 Ibuprofen 12/05/2021 Medications atorvastatin (LIPITOR) 40 MG tablet Take 1 tablet by mouth 1 (one) time each day Active gemfibrozil (LOPID) 600 MG tablet Take 1 tablet by mouth in the morning and 1 tablet in the evening. Active levothyroxine (SYNTHROID, LEVOTHROID) 200 MCG tablet Take 1 tablet by mouth 1 (one) time each day Active LORazepam (ATIVAN) 0.5 MG tablet Take 1 tablet by mouth Active albuterol HFA (PROVENTIL HFA;VENTOLIN HFA) 108 (90 Base) MCG/ACT inhaler INHALE ONCE INTO THE LUNGS EVERY 4 HOURS FOR 30 DAYS NEEDED FOR SHOPRTNESS OF BREATH OR WHEEZING 2 Active oxyCODONE (ROXICODONE) 5 MG immediate release tablet TAKE 1 TABLET (5MG) BY MOUTH TWICE DAILY NEEDED FOR PAIN. 1 Active DULoxetine (CYMBALTA) [address] capsule Take 20 mg by mouth 1 (one) time each day Do not crush or chew. Active insulin glargine (LANTUS) 100 UNIT/ML injection Inject 10 Units under the skin every night Active torsemide (DEMADEX) 20 MG tablet Take 20 mg by mouth 1 (one) time each day Active acetaminophen (TYLENOL) 325 MG tablet Take by mouth every 6 (six) hours if needed for mild pain Active amLODIPine (NORVASC) 5 MG tablet Take 5 mg by mouth 1 (one) time each day 2 Active Active Problems Problem Noted Date Diagnosed Date Acute nontraumatic kidney injury 12/05/2021 Anemia 12/05/2021 Acute and chronic respiratory failure with hypox ia 05/31/2019 Acute kidney failure 05/31/2019 Chronic obstructive pulmonary disease 05/31/2019 Dysphagia, oropharyngeal phase 05/31/2019 Heart failure 05/31/2019 Hyperlipidemia 05/31/2019 Essential (primary) hypertension 05/31/2019 Morbid (severe) obesity due to excess calories 0 05/31/2019 Other specified hypothyroidism 05/31/2019 Shortness of breath 05/31/2019 Type 2 diabetes mellitus without complication Family History Medical History Relation Comments Heart disease Father Relation Status Comments Father Unknown Mother Unknown Social History Tobacco Use Types Packs/Day Years Used Date Smoking Tobacco: Former Smokeless Tobacco: Never Alcohol Use Standard Drinks/Week Comments Yes 0 (1 standard drink = 0.6 oz pure alcohol) Alcoholic Drinks/day: Occasional social drink Comments Unknown Sex and Gender Information Value Date Recorded Sex Assigned at Not on file Legal Sex Female 4:55 PM EST Gender Identity Not on file Sexual Orientation Not on file Last Filed Vital Signs Vital Sign Reading Time Taken Comments Blood Pressure 117/72 04/10/2022 12:49 PM EDT Pulse 68 12/09/2021 12:36 PM EST Temperature - - Respiratory Rate - - Oxygen Saturation 96% 12/09/2021 12:36 PM EST Inhaled Oxygen Concentration - - Weight 98.5 kg (217 lb 3.2 oz) 04/10/2022 12:49 PM EDT Height 165.1 cm (5' 5 ) 07/01/2019 12:00 PM EDT Body Mass Index 36.14 07/01/2019 12:00 PM EDT Plan of Treatment Health Maintenance Due Date Last Done Comments Pneumococcal Vaccine: 65+ Ye ars (1 of 2 - PCV) 1951 Diabetes: Hemoglobin A1C 11/25/2021 Diabetes: Ophthalmology Exam 11/25/2021 Diabetes: Pedal Pulse Checked 11/25/2021 Diabetes: Sensory Foot Exam 11/25/2021 Diabetes: Visual Foot Exam 11/25/2021 Influenza Vaccine (#1) 2024 Hepatitis B Vaccine Aged Out No longe r eligible based on patient's age to complete this topic Insurance MEDICARE MEDICARE Care Teams Improvement Specialist Relationship Specialty Start Date End Date Neida Mirza MD [address] [place], [place] PCP - General 11/05/20
--- OUTSIDE RECORDS SUMMARY | 2024-11-21 16:09 | XMS_ITS | Clinical Summary ---
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 [address] [place] [phone] Hal Cole MD Essential (primary) hypertension; Chronic obstructive pulmonary disease, unspecified (CMS/HCC) 09/21/[address] [facility] [address] [place] [phone] Hal Cole MD Chronic kidney disease, unspecified 09/15/[address] [facility] [address] [place] [phone] Hal Cole MD Chronic obstructive pulmonary disease, unspecified (CMS/HCC) 08/27/[address] [facility] [address] [place] [phone] Hal Cole MD Type 2 diabetes mellitus without complications (CMS/HCC); Chronic obstructive pulmonary disease, unspecified (CMS/HCC) from Last 3 Months Social History Tobacco Use Types Packs/Day Years Used Date Smoking Tobacco: Never Assessed Sex and Gender Information Value Date Recorded Sex Assigned at Not on file Gender Identity Not on file Sexual Orientation Not on file Plan of Treatment Health Maintenance Due Date Last Done Comments Pneumococcal Vaccine: 65+ Years (1 of 2 - PCV) 1951 Diabetes: Annual Foot Exam 1957 Diabetes: Annual Retina Eye Exam 1957 DTaP,Tdap,and Td Vaccines (1 - Tdap) 1966 Zoster Vaccines (1 of 2) 1997 RSV Immunization Patients 60+ Years Old (1 - 1-dose 75+ series) 2022 Cholesterol Screening (Lipid Panel) 09/27/2022 Depression Screening 09/27/2022 Falls Risk Assessment 09/27/2022 Hepatitis C Screening 09/27/2022 Medicare Annual Wellness Visit 09/27/2022 Osteoporosis Screening (Bone Density Screening) 09/27/2022 Social Influencers of Health Screening 09/27/2022 COVID-19 Vaccine ( season) 2024 Influenza Vaccine (#1) 2024 Diabetes: Annual Urine Albumin-Creatinine Ratio (uACR) 08/27/2024 Diabetes: Blood Sugar Control Test (HGBA1C) 08/27/2024 Diabetes: Annual GFR (Glomerular Filtration Rate) 09/28/2025 09/28/2024, 09/21/2024, 09/15/2024, Additional history exists Hypertension/CHF/CAD Annual BMP Blood Test 09/28/2025 09/28/2024, 09/21/2024, 09/15/2024, Additional history exists HIB Vaccines Aged Out No longer eligi ble based on patient's age to complete this topic HPV Vaccines Aged Out No longer eligi ble based on patient's age to complete this topic Hepatitis A Vaccines Aged Out No long er eligible based on patient's age to complete this topic Hepatitis B Vaccines Aged Out No long er eligible based on patient's age to complete this topic IPV Vaccines Aged Out No longer eligi ble based on patient's age to complete this topic MMR Vaccines Aged Out No longer eligi ble based on patient's age to complete this topic Meningococcal ACWY Vaccine Aged Out N o longer eligible based on patient's age to complete this topic RSV Immunization Patients Under 20 months Aged Out No longer eligible based on patient's age to complete this topic Varicella Vaccines Aged Out No longer eligible based on patient's age to complete this topic Procedures Procedure Name Priority Date/Time Associated Diagnosis Comments TRIIODOTHYRONINE FREE Routine 09/28/2024 7:04 AM EST Essential (primary) hypertension Chronic obstructive pulmonary disease, unspecified (CMS/HCC) FREE THYROXINE WITH REFLEX TO FREE TRIIODOTHYRONINE Routine 09/28/2024 7:04 AM EST Essential (primary) hypertension Chronic obstructive pulmonary disease, unspecified (CMS/HCC) THYROID STIMULATING HORMONE WITH REFLEX TO FREE T4 AND FREE T3 Routine 09/28/2024 7:04 AM EST Essential (primary) hypertension Chronic obstructive pulmonary disease, unspecified (CMS/HCC) BASIC METABOLIC PANEL Routine 09/28/2024 7:04 AM EST Essential (primary) hypertension Chronic obstructive pulmonary disease, unspecified (CMS/HCC) COMPLETE BLOOD COUNT Routine 09/28/2024 7:04 AM EST Essential (primary) hypertension Chronic obstructive pulmonary disease, unspecified (CMS/HCC) BASIC METABOLIC PANEL Routine 09/21/2024 7:31 AM EST Chronic kidney disease, unspecified CBC WITH AUTO DIFFERENTIAL Routine 09/15/2024 5:17 AM EST Chronic obstructive pulmonary disease, unspecified (CMS/HCC) BASIC METABOLIC PANEL Routine 09/15/2024 5:17 AM EST Chronic obstructive pulmonary disease, unspecified (CMS/HCC) CBC AND DIFFERENTIAL Routine 09/15/2024 5:17 AM EST Chronic obstructive pulmonary disease, unspecified (CMS/HCC) TRAVEL PHLEBOTOMY FEE Routine 08/29/2024 5:30 AM EST Type 2 diabetes mellitus without complications (CMS/HCC) Chronic obstructive pulmonary disease, unspecified (CMS/HCC) BASIC METABOLIC PANEL Routine 08/29/2024 5:30 AM EST Type 2 diabetes mellitus without complications (CMS/HCC) Chronic obstructive pulmonary disease, unspecified (CMS/HCC) COMPLETE BLOOD COUNT Routine 08/29/2024 5:30 AM EST Type 2 diabetes mellitus without complications (CMS/HCC) Chronic obstructive pulmonary disease, unspecified (CMS/HCC) from Last 3 Months Results * (ABNORMAL) Thyroid stimulating hormone with reflex to free t4 and free t3 (09/28/2024 7:04 AM EST) TSH 50.98(H) 0.40 - 4.00 mcIU/mL LAB CHEMISTRY METHOD 09/28/2024 12:15 PM EST [facility] Blood Venous blood specimen / Unknown Venipuncture / Unknown 09/28/2024 7:04 AM EST 09/28/2024 11:03 AM EST Hal Cole MD LAB BLOOD ORDERABLES [facility] [address] [place] [address], * Free thyroxine with reflex to free triiodothyronine (09/28/2024 7:04 AM EST) Pathologist [facility] Free T4 0.88 0.70 - 1.80 ng/dL LAB CHEMISTRY METHOD 09/28/2024 12:41 PM EST [facility] Blood Venous blood specimen / Unknown Venipuncture / Unknown 09/28/2024 7:04 AM EST 09/28/2024 11:03 AM EST Hal Cole MD LAB BLOOD ORDERABLES Performing Organization Address City/[facility]/ZIP Co de Phone Number [facility] [address] [place] [address], [place] [phone] * (ABNORMAL) Complete blood count (09/28/2024 7:04 AM EST) Only the most recent of2 resultswithin the time period is included. WBC 7.1 4.8 - 10.8 K/mcL LAB HEMETOLOGY METHOD 09/28/2024 11:31 AM EST [facility] RBC 3.70(L) 3.80 - 4.80 M/mcL LAB HEMETOLOGY METHOD 09/28/2024 11:31 AM EST [facility] Hemoglobin 10.8(L) 11.5 - 16.0 g/dL LAB HEMETOLOGY METHOD 09/28/2024 11:31 AM [facility] Hematocrit 36.0 35.0 - 47.0 % LAB HEMETOLOGY METHOD 09/28/2024 11:31 AM [facility] MCV 96.5 79.0 - 98.0 FL LAB HEMETOLOGY METHOD 09/28/2024 11:31 AM [facility] MCH 29.0 27.0 - 32.0 pcg LAB HEMETOLOGY METHOD 09/28/2024 11:31 AM [facility] MCHC 30.0(L) 32.0 - 37.0 g/dL LAB HEMETOLOGY METHOD 09/28/2024 11:31 AM [facility] RDW 13.5 11.0 - 15.0 % LAB HEMETOLOGY METHOD 09/28/2024 11:31 AM [facility] Platelets 214 130 - 400 K/mcL LAB HEMETOLOGY METHOD 09/28/2024 11:31 AM [facility] MPV 9.9 7.0 - 11.0 FL LAB HEMETOLOGY METHOD 09/28/2024 11:31 AM [facility] NRBC 0.0 <1.0 % LAB HEMETOLOGY METHOD 09/28/2024 11:31 AM [facility] NRBC Absolute 0.00 <0.10 K/mcL LAB HEMETOLOGY METHOD 09/28/2024 11:31 AM [facility] Blood Venous blood specimen / Unknown Venipuncture / Unknown 09/28/2024 7:04 AM EST 09/28/2024 11:03 AM EST Hal Cole MD LAB BLOOD ORDERABLES [facility] [address] [place] [address], [place] [phone] * (ABNORMAL) Triiodothyronine free (09/28/2024 7:04 AM EST) Pathologist [facility] T3, Free 148(L) 230 - 420 pcg/dL LAB CHEMISTRY METHOD 09/28/2024 1:08 PM [facility] Blood Venous blood specimen / Unknown Venipuncture / Unknown 09/28/2024 7:04 AM EST 09/28/2024 11:03 AM EST Hal Cole MD LAB BLOOD ORDERABLES [facility] [address] [place] [address], * (ABNORMAL) Basic metabolic panel (09/28/2024 7:04 AM EST) Only the most recent of4 resultswithin the time period is included. [facility] Sodium 141 133 - 145 mmol/L LAB CHEMISTRY METHOD 09/28/2024 12:06 PM [facility] Potassium 4.2 3.5 - 5.5 mmol/L LAB CHEMISTRY METHOD 09/28/2024 12:06 PM [facility] Chloride 106 96 - 110 mmol/L LAB CHEMISTRY METHOD 09/28/2024 12:06 PM [facility] CO2 29 21 - 32 mmol/L LAB CHEMISTRY METHOD 09/28/2024 12:06 PM [facility] Anion Gap 6 3 - 11 LAB CHEMISTRY METHOD 09/28/2024 12:06 PM [facility] Glucose 139(H) 70 - 100 mg/dL LAB CHEMISTRY METHOD 09/28/2024 12:06 PM [facility] BUN 67(H) 5 - 25 mg/dL LAB CHEMISTRY METHOD 09/28/2024 12:06 PM [facility] Creatinine 1.83(H) 0.50 - 1.10 mg/dL LAB CHEMISTRY METHOD 09/28/2024 12:06 PM [facility] eGFR 28(L) >=60 mL/min/1. 73m2 LAB CHEMISTRY METHOD 09/28/2024 12:06 PM [facility] Comment:Calculation based on the??Chronic Kidney Disease Epidemiology Collaboration (CKD-EPI) equation refit??without adjustment for race. BUN/Creatinine Ratio 36.6 LAB CHEMISTRY METHOD 09/28/2024 12:06 PM [facility] Calcium 8.3(L) 8.5 - 10.5 mg/dL LAB CHEMISTRY METHOD 09/28/2024 12:06 PM [facility] Blood Venous blood specimen / Unknown Venipuncture / Unknown 09/28/2024 7:04 AM EST 09/28/2024 11:03 AM EST Hal Cole MD LAB BLOOD ORDERABLES [facility] [address] [place] [address], * (ABNORMAL) CBC auto differential (09/15/2024 5:17 AM EST) WBC 7.4 4.8 - 10.8 K/mcL LAB HEMETOLOGY METHOD 09/15/2024 8:25 AM [facility] RBC 3.70(L) 3.80 - 4.80 M/mcL LAB HEMETOLOGY METHOD 09/15/2024 8:25 AM [facility] Hemoglobin 10.6(L) 11.5 - 16.0 g/dL LAB HEMETOLOGY METHOD 09/15/2024 8:25 AM [facility] Hematocrit 35.5 35.0 - 47.0 % LAB HEMETOLOGY METHOD 09/15/2024 8:25 AM [facility] MCV 95.4 79.0 - 98.0 FL LAB HEMETOLOGY METHOD 09/15/2024 8:25 AM [facility] MCH 28.5 27.0 - 32.0 pcg LAB HEMETOLOGY METHOD 09/15/2024 8:25 AM [facility] MCHC 29.9(L) 32.0 - 37.0 g/dL LAB HEMETOLOGY METHOD 09/15/2024 8:25 AM [facility] RDW 13.3 11.0 - 15.0 % LAB HEMETOLOGY METHOD 09/15/2024 8:25 AM [facility] Platelets 245 130 - 400 K/mcL LAB HEMETOLOGY METHOD 09/15/2024 8:25 AM [facility] MPV 9.5 7.0 - 11.0 FL LAB HEMETOLOGY METHOD 09/15/2024 8:25 AM [facility] NRBC 0.0 <1.0 % LAB HEMETOLOGY METHOD 09/15/2024 8:25 AM [facility] NRBC Absolute 0.00 <0.10 K/mcL LAB HEMETOLOGY METHOD 09/15/2024 8:25 AM [facility] Neutrophils Relative 73.5 % LAB HEMETOLOGY METHOD 09/15/2024 8:25 AM [facility] Lymphocytes Relative 14.3 % LAB HEMETOLOGY METHOD 09/15/2024 8:25 AM [facility] Monocytes Relative 6.0 % LAB HEMETOLOGY METHOD 09/15/2024 8:25 AM [facility] Eosinophils Relative 4.8 % LAB HEMETOLOGY METHOD 09/15/2024 8:25 AM [facility] Basophils Relative 0.7 % LAB HEMETOLOGY METHOD 09/15/2024 8:25 AM [facility] Immature Granulocytes Relative 0.7 % LAB HEMETOLOGY METHOD 09/15/2024 8:25 AM EST [facility] Neutrophils Absolute 5.41 1.50 - 7.00 K/mcL LAB HEMETOLOGY METHOD 09/15/2024 8:25 AM EST [facility] Lymphocytes Absolute 1.05 1.00 - 5.00 K/mcL LAB HEMETOLOGY METHOD 09/15/2024 8:25 AM EST [facility] Monocytes Absolute 0.44 0.20 - 1.00 K/mcL LAB HEMETOLOGY METHOD 09/15/2024 8:25 AM EST [facility] Eosinophils Absolute 0.35 0.00 - 0.50 K/mcL LAB HEMETOLOGY METHOD 09/15/2024 8:25 AM EST [facility] Basophils Absolute 0.05 0.00 - 0.20 K/mcL LAB HEMETOLOGY METHOD 09/15/2024 8:25 AM EST [facility] Immature Granulocytes Absolute 0.05(H) 0.00 - 0.03 K/mcL LAB HEMETOLOGY METHOD 09/15/2024 8:25 AM EST [facility] Blood Venous blood specimen / Unknown Venipuncture / Unknown 09/15/2024 5:17 AM EST 09/15/2024 8:04 AM EST Hal Cole MD LAB BLOOD ORDERABLES [facility] [address] [place] [address], * Travel phlebotomy fee (08/29/2024 5:30 AM EST) [facility] TRAVEL PHLEBOTOMY FEE Completed 08/29/2024 10:01 AM EST [facility] Blood Venous blood specimen / Unknown Venipuncture / Unknown 08/29/2024 5:30 AM EST 08/29/2024 9:51 AM EST Hal Cole MD LAB BLOOD ORDERABLES [facility] [address] [place] [address], from Last 3 Months Care Teams Welding Machine Operator Helper Arc Relationship Specialty Start Date End Date Hal Cole MD [address] [facility] [address] [facility] [phone] PCP - General Family Medicine 09/15/24
--- OUTSIDE RECORDS SUMMARY | 2024-11-21 16:09 | XMS_ITS | Encounter Summary ---
Author Organization [employer] Address [address] [place] [address] Care Team Providers Care Tin Can Feeder Name Role Phone Hal Cole MD Primary Care Provider [phone] Encounter Details Date Type Department Care Team (Late st Contact Info) Description 09/15/2024 Lab Requisition [facility] - Main Lab [address] [place] [address] Hal Cole MD [address] [place] [address], [phone] Chronic obstructive pulmonary disease, unspecified (CMS/HCC) Social [...] Procedure Name Priority Date/Time Associated Diagnosis Comments CBC WITH AUTO DIFFERENTIAL Routine 09/15/2024 5:17 AM EST Chronic obstructive pulmonary disease, unspecified (CMS/HCC) CBC AND DIFFERENTIAL Routine 09/15/2024 5:17 AM EST Chronic obstructive pulmonary disease, unspecified (CMS/HCC) BASIC METABOLIC PANEL Routine 09/15/2024 5:17 AM EST Chronic obstructive pulmonary disease, unspecified (CMS/HCC) documented in this encounter Results * (ABNORMAL) CBC auto differential (09/15/2024 5:17 AM EST) [facility] Signature WBC 7.4 4.8 - 10.8 K/[facility] LAB HEMETOLOGY METHOD 09/15/2024 8:25 AM EST [facility] RBC 3.70(L) 3.80 - 4.80 M/[facility] LAB HEMETOLOGY METHOD 09/15/2024 8:25 AM [facility] LAB Hemoglobin 10.6(L) 11.5 - 16.0 g/dL LAB HEMETOLOGY METHOD 09/15/2024 8:25 AM [facility] LAB Hematocrit 35.5 35.0 - 47.0 % LAB HEMETOLOGY METHOD 09/15/2024 8:25 AM [facility] LAB MCV 95.4 79.0 - 98.0 FL LAB HEMETOLOGY METHOD 09/15/2024 8:25 AM [facility] LAB MCH 28.5 27.0 - 32.0 pcg LAB HEMETOLOGY METHOD 09/15/2024 8:25 AM [facility] LAB MCHC 29.9(L) 32.0 - 37.0 g/dL LAB HEMETOLOGY METHOD 09/15/2024 8:25 AM [facility] LAB RDW 13.3 11.0 - 15.0 % LAB HEMETOLOGY METHOD 09/15/2024 8:25 AM [facility] LAB Platelets 245 130 - 400 K/[facility] LAB HEMETOLOGY METHOD 09/15/2024 8:25 AM [facility] LAB MPV 9.5 7.0 - 11.0 FL LAB HEMETOLOGY METHOD 09/15/2024 8:25 AM [facility] LAB NRBC 0.0 <1.0 % LAB HEMETOLOGY METHOD 09/15/2024 8:25 AM [facility] LAB NRBC Absolute 0.00 <0.10 K/mcL LAB HEMETOLOGY METHOD 09/15/2024 8:25 AM [facility] LAB Neutrophils Relative 73.5 % LAB HEMETOLOGY METHOD 09/15/2024 8:25 AM [facility] LAB Lymphocytes Relative 14.3 % LAB HEMETOLOGY METHOD 09/15/2024 8:25 AM EST [facility] LAB Monocytes Relative 6.0 % LAB HEMETOLOGY METHOD 09/15/2024 8:25 AM EST [facility] LAB Eosinophils Relative 4.8 % LAB HEMETOLOGY METHOD 09/15/2024 8:25 AM [facility] LAB Basophils Relative 0.7 % LAB HEMETOLOGY METHOD 09/15/2024 8:25 AM [facility] LAB Immature Granulocytes Relative 0.7 % LAB HEMETOLOGY METHOD 09/15/2024 8:25 AM [facility] LAB Neutrophils Absolute 5.41 1.50 - 7.00 K/mcL LAB HEMETOLOGY METHOD 09/15/2024 8:25 AM [facility] LAB Lymphocytes Absolute 1.05 1.00 - 5.00 K/mcL LAB HEMETOLOGY METHOD 09/15/2024 8:25 AM EST [facility] LAB Monocytes Absolute 0.44 0.20 - 1.00 K/mcL LAB HEMETOLOGY METHOD 09/15/2024 8:25 AM EST [facility] LAB Eosinophils Absolute 0.35 0.00 - 0.50 K/mcL LAB HEMETOLOGY METHOD 09/15/2024 8:25 AM EST [facility] LAB Basophils Absolute 0.05 0.00 - 0.20 K/mcL LAB HEMETOLOGY METHOD 09/15/2024 8:25 AM [facility] LAB Immature Granulocytes Absolute 0.05(H) 0.00 - 0.03 K/mcL LAB HEMETOLOGY METHOD 09/15/2024 8:25 AM [facility] LAB Blood Venous blood specimen / Unknown Venipuncture / Unknown 09/15/2024 5:17 AM EST 09/15/2024 8:04 AM EST Hal Cole MD LAB BLOOD ORDERABLES [facility] LAB [address] [place] [address], * (ABNORMAL) Basic metabolic panel (09/15/2024 5:17 AM EST) Sodium 141 133 - 145 mmol/L LAB CHEMISTRY METHOD 09/15/2024 9:01 AM [facility] LAB Potassium 3.7 3.5 - 5.5 mmol/L LAB CHEMISTRY METHOD 09/15/2024 9:01 AM [facility] LAB Chloride 104 96 - 110 mmol/L LAB CHEMISTRY METHOD 09/15/2024 9:01 AM [facility] LAB CO2 32 21 - 32 mmol/L LAB CHEMISTRY METHOD 09/15/2024 9:01 AM [facility] LAB Anion Gap 5 3 - 11 LAB CHEMISTRY METHOD 09/15/2024 9:01 AM [facility] LAB Glucose 187(H) 70 - 100 mg/dL LAB CHEMISTRY METHOD 09/15/2024 9:01 AM [facility] BUN 57(H) 5 - 25 mg/dL LAB CHEMISTRY METHOD 09/15/2024 9:01 AM [facility] LAB Creatinine 1.92(H) 0.50 - 1.10 mg/dL LAB CHEMISTRY METHOD 09/15/2024 9:01 AM [facility] LAB eGFR 27(L) >=60 mL/min/1. 73m2 LAB CHEMISTRY METHOD 09/15/2024 9:01 AM [facility] LAB Comment:Calculation based on the??Chronic Kidney Disease Epidemiology Collaboration (CKD-EPI) equation refit??without adjustment for race. BUN/Creatinine Ratio 29.7 LAB CHEMISTRY METHOD 09/15/2024 9:01 AM [facility] LAB Calcium 8.4(L) 8.5 - 10.5 mg/dL LAB CHEMISTRY METHOD 09/15/2024 9:01 AM [facility] LAB Blood Venous blood specimen / Unknown Venipuncture / Unknown 09/15/2024 5:17 AM EST 09/15/2024 8:04 AM EST Hal Cole MD LAB BLOOD ORDERABLES [facility] [address] [place] [address], documented in this encounter Visit Diagnoses Diagnosis Chronic obstructive pulmonary disease, unspecified (CMS/HCC) documented in this encounter Care Teams Tin Can Feeder Relationship Specialty Start Date End Date Hal Cole MD [address] [place] [address] [address] [place], [phone] PCP - General Family Medicine 09/15/24 documented as of this encounter
--- OUTSIDE RECORDS SUMMARY | 2024-11-21 16:09 | XMS_ITS ---
Author Organization [facility] Address Unknown Allergies, Adverse Reactions, Alerts Substance Reaction Status Noted Date Resolved Date Codeine active 05/31/2019 Problems Problem Status Start Date End Date CHRONIC OBSTRUCTIVE PULMONAR Y DISEASE, UNSPECIFIED (Primary) (J44.9 - ICD-10-CM) ACTIVE 05/31/2019 HEART FAILURE, UNSPECIFIED (I50.9 - ICD-10-CM) ACTIVE 05/31/2019 HYPERLIPIDEMIA, UNSPECIFIED (E78.5 - ICD-10-CM) ACTIVE 05/31/2019 ESSENTIAL (PRIMARY) HYPERTENSION (I10 - ICD-10-CM) ACT TOBIAS 05/31/2019 TYPE 2 DIABETES MELLITUS WIT HOUT COMPLICATIONS (E11.9 - ICD-10-CM) ACTIVE 05/31/2019 SHORTNESS OF BREATH (R06.02 - ICD-10-CM) ACTIVE 05/31/2019 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 - ICD-10-CM) ACTIVE 05/31/2019 MORBID (SEVERE) OBESITY DUE TO EXCESS CALORIES (E66.01 - ICD-10-CM) ACTIVE 05/31/2019 DYSPHAGIA, OROPHARYNGEAL PHASE (R13.12 - ICD-10-CM) AC TIVE 05/31/2019 OTHER SPECIFIED HYPOTHYROIDISM (E03.8 - ICD-10-CM) ACT TOBIAS 05/31/2019 ACUTE KIDNEY FAILURE, UNSPECIFIED (N17.9 - ICD-10-CM) ACTIVE 05/31/2019 Encounters Encounter Performer Performer Role Encounter Diagnoses Location Date Discharge - [facility] - Acute care [place] [facility] 05/31/2019 04:01 pm EDT - 06/06/2019 12:27 pm EDT Reason For Referral Chest Pain Immunizations Vaccine Date Influenza PCV13 (Pneumococcal Conjugate)Vaccine Social History
--- OUTSIDE RECORDS SUMMARY | 2024-11-21 16:09 | XMS_ITS | Data Portability ---
Author Organization [facility] [employer] [facility], Main Office Address [address] [facility] [place] [address] Care Team Providers Care Grip Name Role Phone VALARIE JORDAN - 2ND FLOOR OTHER SHOBHA SMITH Primary Care Provider [phone] Assessment Encounter Date Assessment Date Assessment LastModified [...] By Organization Details Last Modified Time 09/06/2024 [id number] medicines to avoid with kidney disease: care instructions Not available 09/06/2024 14:42:44 09/08/2024 [id number] medicines to avoid with kidney disease: care instructions Not available 09/08/2024 13:56:49 Reason for Referral None Reported. Problems Name Problem SNOMED Code Status Onset Date Resolution Date Notes Provider Name and Address Organization Details Recorded Time Acute hypoxemic respirator y failure 521326058 Active 2023 ALLAN PRADHAN NP [address] [facility], [address], [place], [address], [facility] [employer] 4 10:51:05 Pneumonia 343498572 Active 2023 ALLAN PRADHAN NP [address] [facility], [address], [place], [address], [place] [facility] 4 10:51:21 Pleural effusion 07190071 Active 2023 ALLAN PRADHAN NP [address], [address], [place], [address], [facility] 4 10:51:43 Gastroesop hageal reflux disease without esophagiti s 899432256 Active 2023 ALLAN PRADHAN NP [address], [place], [address], [facility] 4 10:53:46 Anxiety 73197895 Active 2023 ALLAN PRADHAN NP [address], [place], [address], [facility] 4 11:00:09 Chronic kidney disease stage 3 279132179 Active 2023 ALLAN PRADHAN NP [address], [place], [address], [facility] 4 11:21:29 Chronic pain syndrome 140401270 Active 2023 ALLAN PRADHAN NP [address], [place], [address], [facility] 4 11:21:39 Acute nontraumat ic kidney injury 1820215908448 03 Active 2023 ALLAN PRADHAN NP [address], [place], [address], [facility] 4 11:23:16 Left bundle branch block 08019178 Active 2023 ALLAN PRADHAN NP [address], [place], [address], [facility] 4 11:23:30 Pernicious anemia 16080638 Active 2023 ALLAN PRADHAN NP [address], [address], [place], [address], [facility] 4 11:23:46 Obstructiv e sleep apnea syndrome 63386984 Active 2023 ALLAN PRADHAN NP [address], [place], [address], [facility] 4 11:47:23 Open wound 808152199 Active 2023 sacral ALLAN PRADHAN NP [address], [place], [address], [facility] 4 12:05:33 Asthenia 90538006 Active 2023 ALLAN PRADHAN NP [address], [place], [address], [facility] 4 12:10:47 Diastolic heart failure 629309151 Active 2018 Hal Cole MD [address], [place], [address], [facility] 9 14:45:31 Dysphagia 76917482 Active 2018 Hal Cole MD [address], [place], [address], [facility] 9 14:45:39 Chronic obstructiv e pulmonary disease 46210884 Active 2018 Hal Cole MD [address], [place], [address], [facility] 9 14:45:48 Essential hypertensi on 61804504 Active 2018 Hal Cole MD [address], [place], [address], [facility] 9 14:45:53 Diabetes mellitus 24607585 Active 2018 Hal Cole MD [address], [place], [address], [facility] 9 14:45:57 Hyperlipid emia 12896501 Active 2018 Hal Cole MD [address], [place], [address], [facility] 9 14:46:04 Obesity 000015239 Active 2018 Hal Cole MD [address], [place], [address], [employer] 9 14:46:12 Hypothyroi dism 80215436 Active 2018 Hal Cole MD [address] [facility] [facility] [address], [place], [address], [employer] 9 14:50:40 Problem Notes None recorded. Medical Equipment None Reported. Allergies Allergen ID Allergen Name Allergen Category Reaction Reaction Severity Criticality Documentation Date Start Date Code Code System Note Provider Name and Address Organization Details Recorded Time [id number] 2824e ibuprofen medicatio n Not available Not available Not available 08/11/2024 5640 RxNorm swell ing Not Available Not Available Not Available [id number] 2824e codeine medicatio n Not available Not [...] mm[Hg] 86 mm[Hg] ALLAN PRADHAN NP [address] [facility], [facility] [address], [place], [address], [employer] 4 14:03:04 Date Recorded Heart rate Respiratory rate Body temperature Oxygen saturation Oxygen saturation in Arterial blood by Pulse oximetry Systolic blood pressure Diastolic blood pressure Provider Name and Address Organization Details Last Updated DateTime 4 74 /min 18 /min 99 [degF] 98 % 98 % 130 mm[Hg] 74 mm[Hg] ALLAN PRADHAN NP [address] [facility], [facility] [address], [place], [address], [employer] 4 13:48:17 Date Recorded Body weight Heart rate Respiratory rate Body temperature Oxygen saturation Oxygen saturation in Arterial blood by Pulse oximetry Systolic blood pressure Diastolic blood pressure Provider Name and Address Organization Details Last Updated DateTime 4 15836.1 4 g 69 /min 16 /min 98.3 [degF] 97 % 97 % 134 mm[Hg] 64 mm[Hg] Eloina Odom NP [address] [facility] [address], [place], [address], [employer] 4 09:02:44 Date Recorded Body height Body mass index (BMI) Body weight Heart rate Respiratory rate Body temperature Oxygen saturation Oxygen saturation in Arterial blood by Pulse oximetry Inhaled oxygen flow rate Systolic blood pressure Diastolic blood pressure Provider Name and Address Organization Details Last Updated DateTime 4 167.64 cm 32.9 kg/m2 91292.1 3 g 72 /min 18 /min 97.5 [degF] 97 % 97 % 2 L/min 129 mm[Hg] 76 mm[Hg] Carlee Amezcua MD [address] [facility] [address], [place], [address], [employer] 4 22:10:41 Date Recorded Body height Body weight Body mass index (BMI) Heart rate Respiratory rate Body temperature Oxygen saturation Oxygen saturation in Arterial blood by Pulse oximetry Systolic blood pressure Diastolic blood pressure Provider Name and Address Organization Details Last Updated DateTime 4 167.64 cm 72805.2 5 g 32.8 kg/m2 74 /min 16 /min 97.9 [degF] 95 % 95 % 133 mm[Hg] 72 mm[Hg] Eloina Odom NP [address] [facility] [address], [place], [address] , [employer] 4 08:16:49 Social History Question Answer Notes LastModified by Organizat ion Details LastModified Time Tobacco Smoking Status Former Smoker Not Available [facility] 08/21/2020 03:13:21 Do You Have An Advance Directive? No Full Code [id number] Information not available 08/21/2020 What Is Your Level Of Alcohol Consumption? None [email or web address] Information not available 08/11/2024 What Is Your Code Status? Full Code [email or web address] Information not available 09/01/2024 Do You Have A Medical Power Of Hotel Registration Clerk? Yes Has HCP [email or web address] Information not available 08/11/2024 What Was The Date Of Your Most Recent Tobacco Screening? 08/11/2024 [email or web address] Information not available 08/11/2024 Do You Have An Out Of Hospital DNR? Yes [email or web address] Information not available 09/01/2024 How Much Tobacco Do You Smoke? 1.5 PPD [id number] Information not available 08/21/2020 Do You Use Any Illicit Or Recreational Drugs? No [email or web address] Information not available 08/11/2024 Has Tobacco Cessation Counseling Been Provided? No [email or web address] Information not available 08/11/2024 How Many Years Have You Smoked Tobacco? 25 [id number] Information not available 08/21/2020 Do You Or Have You Ever Used Any Other Forms Of Tobacco Or Nicotine? No [email or web address] Information not available 08/11/2024 Sex: Unknown Functional [...] unspecified formulation 11/10/2021 completed Jessica gonsalez MA [facility] 08/10/2024 14:21:03 Past Encounters Encounter ID Performer Location Encounter Start Date Encounter Closed Date Diagnosis/Indication Diagnosis SNOMED-CT Code Diagnosis ICD10 Code Diagnosis Note [id number] MD ARMEN Urrutia [address] [place] [address] [place] [address] 06/01/2019 14:38:26 06/08/2019 15:41:33 Acute hypoxemic respiratory failure 981163004 J96.01 see HPIseconda ry to aspiration dx with dysphagiaC HF exacerbati on with recent dx of diastolic CHFmonitor respirator y functionto be scheduled for sleep study due to concern for OSAtitrate O2 in patient with baseline COPD Diastolic heart failure 970040564 I50.33 see HPIappears chronicall y ill due to multiple co-morbid conditions recent dx with diuresis of 18 liters at prior hospitaliz ationnow onlasix 40 mg bidmonitor weights and fluid statusmoni tor respirator y and renal functionti trate medication s prn Dysphagia 54817505 R13.1 2 see HPIeval by speechnow on ground mech soft dietrepeat speech eval prn Chronic ob structive pulmonary disease 04459298 J41.1 hx tobacco quit > 30 yrs priormonit or respirator y functionto be scheduled for sleep study with concern for OSApulmona ry consult prn Essential hypertension 41547353 I10 norvasc 5 mg qdlasix 40 mg bidmonitor bp and renal function Asthenia 45159671 R53.1 PT OT eval and treatmonit or fall risk Diabetes mellitus 269923 09 E11.9 hx of DMonmetfor min 1000 mg bid with 500 mg q noonglipiz nneka 5 mg bidinsulin SSmonitor blood glucose Hypothyroidism 79098573 E03.8 synthroid 200 mcg qdmonitor tsh prn Hyperlipidemia 30213806 E78.49 gemfibrozi l 600 mg bidlipitor 40 mg qd continue Obesity 970789138 E66.01 dietary eval at baseline [id number] [facility] [address] [place] [address] [place] [address] 06/06/2019 11:35:48 06/08/2019 16:08:53 Hypoxia 499350261 R09.02 send to ER for this d/t sat 50% on O2 with chest pain. Acute kidney injury 1466 9001 N17.9 likely d/t overdiures is. had been on lasix 40 bid, sending to ER, may need this held. Acute hypo xemic respiratory failure 222143780 J96.01 see HPIseconda ry to aspiration dx with dysphagiaC HF exacerbati on with recent dx of diastolic CHFmonitor respirator y functionto be scheduled for sleep study due to concern for OSAtitrate O2 in patient with baseline COPD Diastolic heart failure 566317831 I50.33 see HPIappears chronicall y ill due to multiple co-morbid conditions recent dx with diuresis of 18 liters at prior hospitaliz ationhere was on:lasix 40 mg bid*Now appearing dry- may need to hold diuretics at hospital. Dysphagia 58789498 R13.1 2 see HPIeval by spe[facility]chnow [facility] dietrepeat speech eval prn Chronic ob structive pulmonary disease 13786213 J41.1 hx tobacco quit > 30 yrs priorsendi ng to ER for hypoxia, chest pain, ARF [id number] ALLAN PRADHAN NP [address] [address] 08/11/2024 10:50:24 08/15/2024 09:32:52 Acute hypoxemic respiratory failure 284162768 J96.01 Bangs related to COPD and acute on chronic CHF.Respon ded well to interventi ons in hosp.Chuck nue O2 @ 2L - chronic use.Contin ue inhalers for COPD, bumex for CHF.Monito r closely Chronic ob structive pulmonary disease 20853368 J41.1 Treated for exac. in hosp. with nebs and steroids with adamaris wright.Continue O2 - uses 2L chronicall y at home.Chuck nue:duoneb prnalbuter ol MDI prn - at bedside for self administra tion.Monit or sats, resp. status for change. Pneumonia 700832066 J18. 9 Treated with ceftriaxon e and azithromyc in x 7 days with adamaris wright, transition ed to Augmentin 875 mg bid x 3d and Doxy 100 mg bid x 3d upon d/c to complete a 10 day course of tx.Monitor resp. sx. Diastolic heart failure 458791300 I50.33 Treated with IV lasix in hosp., changed back to bumex 2 mg qd with adamaris t in condition. Continue bumexHeart healthy/lo w salt dietDaily VS and weightsLab s q mond. x 3Follow for decompensa tion Pleural effusion 8841442 8 J90 s/p thoracente sismonitor Diabetes mellitus 211049 09 E11.9 A1C 7.6%Contin ue home meds:basag lar 15 units qdjardianc e 10 mg qdlispro SSICarb control dietAdjust meds prn Essential hypertension 99868127 I10 Continue home meds:norva sc 10 mg qdbumex 2 mg qdMoniotor VS, labs, adjust meds prn Hyperlipidemia 80625476 E78.49 continue atorvastat in 40 mg qdgemfibro zil stopped due to interventi on with lipitor LF Ts WNRLipid panel if stays chcf Hypothyroidism 75228981 E03.8 Continue levothyrox ine 200 mcg qdTSH, FT4 prn Gastroesop hageal reflux disease without esophagitis 049540222 K21.9 ??started omeprazole 20 mg qd while in the hospitalmo nitor GI sx.conside r stopping in 6 wks. if no sx. Anxiety 94477493 F41.9 Continue home meds:cymba lta 20 mg qdativan 0.5 mg tid prn (x14d, then re-eval)Ps ych referral PRNMonitor mood, behaviors Chronic ki dney disease stage 3 637359912 N18.30 Monitor labs - BMP q mond. x 3Maintain hydrationA void nephrotoxi cs Chronic pain syndrome 37 6080954 G89.4 Continue:c ymbalta 20 mg qdoxycodon e 5 mg q8 hr prnPt. states chronic low back pain, knee pain, and sacral pain due to a fractured tailbone at 20 yrs. of age) Obstructiv e sleep apnea syndrome 21071033 G47.33 Per pt.Does not use CPAP, instead wears O2 2L RTC at home. Asthenia 89941815 R53.1 Deconditio rosana due to hospitaliz ation and chronic medical conditions .PT OT eval and tx.Goal is to return home. Open wound 655245731 T14 .8XXA Open wound sacral area - developed in hosp.Suspe ct started first as MASD due to chronic incontinen ce, now with opening in skin.Plan -Triad cream q shift and prnPressur e relief as much as possible - needs low air loss bed as well as astute q 2 hr. turning.Ke ep brief open, keep skin as clean and dry as possible.R efer to Wound PA-CMVI with minerals dailyDieta ry supplement s per puller out Concern of potential breakdown on heels as does not allow pillow under legs to float heels due to chronic sacral pain from old fracture. Can try heel boots if cyndi. to help reduce pressure as well as skin prep qd.Monitor closely. [id number] Hal Cole MD [facility] [address] [address] 08/15/2024 12:44:18 08/17/2024 11:09:33 Asthenia 26061898 R53.1 PT OT Eval and treatmonit or fall risk and need for increased support in community Acute hypo xemic respiratory failure 431133687 J96.01 see HPI due to CHF, COPD, pneumoniao n O2 at baselinemo nitor respirator y status and need to repeat imaging Chronic ob structive pulmonary disease 94185270 J44.1 On O2 at baselineco mpleted steroid coursecont inue outpatient medsmonito r respirator y status Pneumonia 294589289 J15. 8 see HPI now to complete doxy and augmentinm onitor need to reimage Diastolic heart failure 859557168 I50.33 required IV lasix in hospital now onbumex 2 mg qdmonitor respirator y and fluid statusnote d ARF on CRF Diabetes mellitus 979293 09 E11.9 continue out patient medsmonito r need to titrate Hyperlipidemia 13066396 E78.49 medication s adjusted in hospital now onlipitor 40 mg qd Hypothyroidism 20635424 E03.8 synthroid 200 mcg qdtsh prn Gastroesop hageal reflux disease without esophagitis 323688140 K21.9 recently started on PPImonitor need to continuetr ial off in 2-4 weeks Acute kidney injury 1466 9001 N17.8 ARF on CRFmonitor renal functionav oid nephrotoxi c meds as ablenephro consult prn [id number] ALLAN PRADHAN NP [facility] [address] [address] 08/16/2024 11:32:50 08/24/2024 10:16:43 Asthenia 41093349 R53.1 Deconditio rosana due to hospitaliz ation and chronic medical conditions .Continue PT OT eval and tx.Goal is to return home. Acute hypo xemic respiratory failure 357658196 J96.01 Bangs related to COPD and acute on chronic CHF.Respon ded well to interventi ons in hosp.Chuck nue O2 @ 2L - chronic use.Contin ue inhalers for COPD, bumex for CHF.Monito r closely Chronic ob structive pulmonary disease 63444318 J41.1 Treated for exac. in hosp. with nebs and steroids with improvemen t.Continue O2 - uses 2L chronicall y at home.Chuck nue:duoneb prnalbuter ol MDI prn - at bedside for self administra tion.Monit or sats, resp. status for change. Pneumonia 946092286 J18. 9 Treated with ceftriaxon e and azithromyc in x 7 days with improvemen t, transition ed to Augmentin 875 mg bid x 3d and Doxy 100 mg bid x 3d upon d/c to complete a 10 day course of tx.Monitor resp. sx. Diastolic heart failure 864320824 I50.33 Treated with IV lasix in hosp., changed back to bumex 2 mg qd with improvemen t in condition. Continue bumexHeart healthy/lo w salt dietDaily VS and weights (reminded nursing of daily weights and record)Lab s q mond. x 3Follow for decompensa tion Pleural effusion 9604960 8 J90 s/p thoracente sismonitor Chronic ki dney disease stage 3 402762180 N18.30 Monitor labs - BMP q mond. x 3Maintain hydrationA void nephrotoxi cs Diabetes mellitus 187408 09 E11.9 A1C 7.6%BS mostly 100sContin ue home meds:basag lar 15 units qdjardianc e 10 mg qdlispro SSICarb control dietAdjust meds prn Essential hypertension 22669021 I10 Continue home meds:norva sc 10 mg qdbumex 2 mg qdMoniotor VS, labs, adjust meds prn Hyperlipidemia 55361724 E78.49 continue atorvastat in 40 mg qdgemfibro zil stopped due to interventi on with lipitor LF Ts WNRLipid panel if stays chcf Hypothyroidism 86264601 E03.8 Continue levothyrox ine 200 mcg qdTSH, FT4 prn Gastroesop hageal reflux disease without esophagitis 277112111 K21.9 ??started omeprazole 20 mg qd while in the hospitalmo nitor GI sx.conside r stopping in 6 wks. if no sx. Anxiety 09868937 F41.9 Continue home meds:cymba lta 20 mg qdativan 0.5 mg tid prn (x14d, then re-eval)Ps ych referral PRNMonitor mood, behaviors Chronic pain syndrome 37 5292284 G89.4 Continue:c ymbalta 20 mg qdoxycodon e 5 mg q8 hr prnPt. states chronic low back pain, knee pain, and sacral pain due to a fractured tailbone at 20 yrs. of age) Obstructiv e sleep apnea syndrome 78120643 G47.33 Per pt.Does not use CPAP, instead wears O2 2L RTC at home. Open wound 802697237 T14 .8XXA Open wound sacral area - developed in hosp.Suspe ct started first as MASD due to chronic incontinen ce, now with opening in skin.Plan -Continue: Triad cream q shift and prnPressur e relief as much as possibleRe ferred to Wound PA-CMVI with minerals daily addedDieta ry supplement s per puller out - currently on glucerna bid. Concern of potential breakdown on heels as does not allow pillow under legs to float heels due to chronic sacral pain from old fracture. Can try heel boots if cyndi. to help reduce pressure as well as skin prep qd.Monitor closely. [id number] ALLAN PRADHAN NP [facility] [address] [address] 08/23/2024 10:50:36 08/24/2024 10:28:22 Asthenia 71048972 R53.1 Deconditio rosana due to hospitaliz ation and chronic medical conditions .PT OT eval and tx., making gains.Goal is to return home. Acute hypo xemic respiratory failure 400734161 J96.01 Bangs related to COPD and acute on chronic CHF.Respon ded well to interventi ons in hosp., currently stable.Con tinue O2 @ 2L - chronic use.Contin ue inhalers for COPD, bumex for CHF.Monito r closely Chronic ob structive pulmonary disease 01014147 J41.1 Treated for exac. in hosp. with nebs and steroids with improvemen t.Continue O2 - uses 2L chronicall y at home.Chuck nue:duoneb prnalbuter ol MDI prn - at bedside for self administra tion.Monit or sats, resp. status for change. Pneumonia 110446577 J18. 9 Treated with ceftriaxon e and azithromyc in x 7 days with improvemen t, transition ed to Augmentin 875 mg bid x 3d and Doxy 100 mg bid x 3d upon d/c to complete a 10 day course of tx.Resolvi ng, continue to monitor resp. sx. Diastolic heart failure 401859321 I50.33 Treated with IV lasix in hosp., changed back to bumex 2 mg qd with improvemen t in condition. Continue bumexHeart healthy/lo w salt dietDaily VS and weights (reminded nursing again of daily weights and record)Lab s q mond. x 3Follow for decompensa tion Pleural effusion 6438472 8 J90 s/p thoracente sismonitor Chronic ki dney disease stage 3 736739760 N18.30 Monitor labs - BMP q mond. x 2 more timesMaint ain hydrationA void nephrotoxi cs Diabetes mellitus 985703 09 E11.9 A1C 7.6%BS mostly 100sContin ue home meds:basag lar 15 units qdjardianc e 10 mg qdlispro SSICarb control dietAdjust meds prn Essential hypertension 47701758 I10 Continue home meds:norva sc 10 mg qdbumex 2 mg qdMoniotor VS, labs, adjust meds prn Hyperlipidemia 70778485 E78.49 continue atorvastat in 40 mg qdgemfibro zil stopped due to interventi on with lipitor LF Ts WNRLipid panel if stays chcf Hypothyroidism 99971035 E03.8 Continue levothyrox ine 200 mcg qdTSH, FT4 prn Gastroesop hageal reflux disease without esophagitis 527375317 K21.9 ??started omeprazole 20 mg qd while in the hospitalmo nitor GI sx.conside r stopping in 6 wks. if no sx. Anxiety 76649363 F41.9 Continue home meds:cymba lta 20 mg qdativan 0.5 mg tid prn (x14d, then re-eval)Ps ych referral PRNMonitor mood, behaviors Chronic pain syndrome 37 2691566 G89.4 Continue:c ymbalta 20 mg qdoxycodon e 5 mg q8 hr prnPt. states chronic low back pain, knee pain, and sacral pain due to a fractured tailbone at 20 yrs. of age) Obstructiv e sleep apnea syndrome 49612947 G47.33 Per pt.Does not use CPAP, instead wears O2 2L RTC at home. Open wound 942364178 T14 .8XXA Open wound sacral area - developed in hosp.Suspe ct started first as MASD due to chronic incontinen ce, now with opening in skin.Plan -Continue: Triad cream q shift and prnPressur e relief as much as possibleRe ferred to Wound PA-CMVI with minerals daily addedDieta ry supplement s per puller out - currently on glucerna bid. Concern of potential breakdown on heels as does not allow pillow under legs to float heels due to chronic sacral pain from old fracture. Can try heel boots if cyndi. to help reduce pressure as well as skin prep qd.Monitor closely. Constipation 32431654 K5 9.00 discussed with LIVING NURSE, last BM 3 days ago.add miralax daily, start today.enco urage OOB, fiber, fluids [id number] [facility] [address] 09/01/2024 12:36:05 09/02/2024 11:15:18 Asthenia 74783426 R53.1 Deconditio rosana due to hospitaliz ation and chronic medical conditions .PT OT eval and tx., making gains.Goal is to return home. Acute hypo xemic respiratory failure 002272972 J96.01 Bangs related to COPD and acute on chronic CHF.Respon ded well to interventi ons in hosp., currently stable.Con tinue O2 @ 2L - chronic use.Contin ue inhalers for COPD, bumex for CHF.Monito r closely Chronic ob structive pulmonary disease 75191096 J41.1 Treated for exac. in hosp. with nebs and steroids with improvemen t.Continue O2 - uses 2L chronicall y at home.Chuck nue:duoneb prnalbuter ol MDI prn - at bedside for self administra tion.Monit or sats, resp. status for change. Pneumonia 556823820 J18. 9 Treated with ceftriaxon e and azithromyc in x 7 days with improvemen t, transition ed to Augmentin 875 mg bid x 3d and Doxy 100 mg bid x 3d upon d/c to complete a 10 day course of tx.Resolvi ng, continue to monitor resp. sx. Diastolic heart failure 458622118 I50.33 Treated with IV lasix in hosp., changed back to bumex 2 mg qd with improvemen t in condition. Continue bumexHeart healthy/lo w salt dietDaily VS and weights (reminded nursing AGAIN of daily weights and record)Lab s q mond. x 3Follow for decompensa tion Pleural effusion 5867861 8 J90 s/p thoracente sismonitor Chronic ki dney disease stage 3 342832996 N18.30 Monitor labs - BMP q mond. x 2 more timesMaint ain hydrationA void nephrotoxi cs Diabetes mellitus 514713 09 E11.9 A1C 7.6%BS mostly 100sContin ue home meds:basag lar 15 units qdjardianc e 10 mg qdlispro SSICarb control dietAdjust meds prn Essential hypertension 98191651 I10 Continue home meds:norva sc 10 mg qdbumex 2 mg qdMoniotor VS, labs, adjust meds prn Hyperlipidemia 27333661 E78.49 continue atorvastat in 40 mg qdgemfibro zil stopped due to interventi on with lipitor LF Ts WNRLipid panel if stays chcf Hypothyroidism 06575166 E03.8 Continue levothyrox ine 200 mcg qdTSH, FT4 prn Gastroesop hageal reflux disease without esophagitis 044114738 K21.9 ??started omeprazole 20 mg qd while in the hospitalmo nitor GI sx.conside r stopping in 6 wks. if no sx. Anxiety 40770253 F41.9 Continue home meds:cymba lta 20 mg qdativan 0.5 mg tid prn (x14d, then re-eval)Ps [facility] referral PRNMonitor mood, behaviors Chronic pain syndrome 37 7640414 G89.4 Continue:c ymbalta 20 mg qdoxycodon e 5 mg q8 hr prnPt. states chronic low back pain, knee pain, and sacral pain due to a fractured tailbone at 20 yrs. of age) Obstructiv e sleep apnea syndrome 54477395 G47.33 Per pt.Does not use CPAP, instead wears O2 2L RTC at home. Open wound 341981944 T14 .8XXA Open wound sacral area - developed in hosp.[place] ct started first as MASD due to chronic incontinen ce, now with opening in skin.Plan -Continue: Triad cream q shift and prnPressur e relief as much as possibleRe ferred to Wound PA-CMVI with minerals daily addedDieta ry supplement s per puller out - currently on glucerna bid. Concern of potential breakdown on heels as does not allow pillow under legs to float heels due to chronic sacral pain from old fracture. Can try heel boots if cyndi. to help reduce pressure as well as skin prep qd.Monitor closely. Constipation 18613495 K5 9.00 Bowels still sluggishAl ready on miralax, now add senna-s 2 tabs daily, hold for loose stool.enco urage OOB, fiber, fluidsCont inue to monitor and adjust. [id number] ALLAN PRADHAN, CHIO [facility] [address] [address] 09/06/2024 14:01:29 09/07/2024 10:12:43 Asthenia 24103806 R53.1 Deconditio rosana due to hospitaliz ation and chronic medical conditions .PT OT eval and tx., making gains.Goal is to return home. Acute hypo xemic respiratory failure 926495374 J96.01 Bangs related to COPD and acute on chronic CHF.Respon ded well to interventi ons in hosp., currently stable.Con tinue O2 @ 2L - chronic use.Contin ue inhalers for COPD, bumex for CHF.Monito r closely Chronic ob structive pulmonary disease 12377632 J41.1 Treated for exac. in hosp. with nebs and steroids with adamaris t.Continue O2 - uses 2L chronicall y at home.Chuck nue:duoneb prnalbuter ol MDI prn - at bedside for self administra tion.Monit or sats, resp. status for change. Pneumonia 693526993 J18. 9 Treated with ceftriaxon e and azithromyc in x 7 days with improvemen t, transition ed to Augmentin 875 mg bid x 3d and Doxy 100 mg bid x 3d upon d/c to complete a 10 day course of tx.Resolvi ng, continue to monitor resp. sx. Diastolic heart failure 627927655 I50.33 Treated with IV lasix in hosp., changed back to bumex 2 mg qd with improvetiera t in condition. Continue bumexHeart healthy/lo w salt dietDaily VS and weights (reminded nursing AGAIN of daily weights and record)CBC , BMP in am x 1Follow for decompensa tion Pleural effusion 0209309 8 J90 s/p thoracente sismonitor Chronic ki dney disease stage 3 929060648 N18.30 Monitor labs - BMP x 1 in amMaintain hydrationA void nephrotoxi cs Diabetes mellitus 869974 09 E11.9 A1C 7.6%BS mostly 100s - 200sContin ue home meds:basag lar 15 units qdjardianc e 10 mg qdlispro SSICarb control dietAdjust meds prn Essential hypertension 90780967 I10 Continue home meds:norva sc 10 mg qdbumex 2 mg qdMoniotor VS, labs, adjust meds prn Hyperlipidemia 17162073 E78.49 continue atorvastat in 40 mg qdgemfibro zil stopped due to interventi on with lipitor LF Ts WNRLipid panel 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 if no sx. Anxiety 53985984 F41.9 Continue home meds:cymba lta 20 mg qdativan 0.5 mg tid prn (x14d, then re-eval)Ps h referral PRNMonitor mood, behaviors Chronic pain syndrome 37 7527821 G89.4 Continue:c ymbalta 20 mg qdoxycodon e 5 mg q8 hr prnPt. states chronic low back pain, knee pain, and sacral pain due to a fractured tailbone at 20 yrs. of age) Obstructiv e sleep apnea syndrome 84760687 G47.33 Per pt.Does not use CPAP, instead wears O2 2L RTC at home. Open wound 340325916 T14 .8XXA Open wound sacral area - developed in hosp.[place] ct started first as MASD due to chronic incontinen ce, now with opening in skin.Had been referred to Wound PAZari in house, but has not been seen.Fortu nately the area is improving. Plan -Continue triad cream, cover with border foam dressing for comfort, change q od and prn.Pressu re relief as much as possibleMV I with minerals daily addedDieta ry supplement s per puller out - currently on glucerna bid. Concern of potential breakdown on heels as does not allow pillow under legs to float heels due to chronic sacral pain from old fracture. Can try heel boots if cyndi. to help reduce pressure as well as skin prep qd.Monitor closely. Constipation 97194336 K5 9.00 No BM since 08/31 if documentat ion correct.RI N bowel meds not used.Curre ntly on miralax daily.Torrey a-s 2 tabs bid ordered 09/01, currently not on MARAbdomen distended. Plan -Fleets nowMag Citrate 1/2 bottle today, repeat 1/2 bottle in am if poor results.In crease miralax to bidRe-orde r senna-s 2 tabs bid, hold for loose stoolMonit or closely.en courage OOB, fiber, fluidsCont inue to monitor and adjust. [id number] ALLAN PRADHAN NP [address] [address] 09/08/2024 13:47:32 09/09/2024 11:13:19 Constipation 20365491 K59.00 No BM since 08/31 if documentat ion correct.RI N bowel meds had not been utilized. Mag Citrate and fleets ordered with very good results. Now on:Miralax bidSenna-s 2 tabs bid Plan -Continue current laxativesE ncourage OOB, fiber, fluidsCont inue to monitor closely and adjust PRN Asthenia 20022064 R53.1 Deconditio rosana due to hospitaliz ation and chronic medical conditions .PT OT eval and tx., making gains.Goal is to return home. Open wound 380260762 T14 .8XXA Open wound sacral area - developed in hosp.[place] ct started first as MASD due to chronic incontinen ce, now with opening in skin.Had been referred to Wound PAZari in house, but has not been seen.Surinderu vipul the area is improving. Plan -Continue triad cream, cover with border foam dressing for comfort, change q od and prn.Pressu re relief as much as possibleMV I with minerals daily addedDieta ry supplement s per puller out - currently on glucerna bid. Concern of potential breakdown on heels as does not allow pillow under legs to float heels due to chronic sacral pain from old fracture. Can try heel boots if cyndi. to help reduce pressure as well as skin prep qd.Monitor closely. Acute hypo xemic respiratory failure 440238443 J96.01 Bangs related to COPD and acute on chronic CHF.Respon ded well to interventi ons in hosp., currently stable.Con tinue O2 @ 2L - chronic use.Contin ue inhalers for COPD, bumex for CHF.Monito r closely Chronic ob structive pulmonary disease 65509943 J41.1 Treated for exac. in hosp. with nebs and steroids with adamaris wright.Continue O2 - uses 2L chronicall y at home.Chuck nue:ducarab prnalbuter ol MDI prn - at bedside for self administra tion.Monit or sats, resp. status for change. Pneumonia 351503792 J18. 9 Treated with ceftriaxon e and azithromyc in x 7 days with adamaris wright, transition ed to Augmentin 875 mg bid x 3d and Doxy 100 mg bid x 3d upon d/c to complete a 10 day course of tx.Resolvi ng, continue to monitor resp. sx. Diastolic heart failure 636596759 I50.33 Treated with IV lasix in hosp., changed back to bumex 2 mg qd with adamaris wright in condition. Continue bumexHeart healthy/lo w salt dietDaily VS and weights (reminded nursing AGAIN of daily weights and record)CBC , BMP in am x 1Follow for decompensa tion Pleural effusion 4658678 8 J90 s/p thoracente sismonitor Chronic ki dney disease stage 3 994653339 N18.30 Monitor labs - BMP x 1 in amMaintain hydrationA void nephrotoxi cs Diabetes mellitus 307938 09 E11.9 A1C 7.6%BS mostly 100s - 200sContin ue home meds:basag lar 15 units qdjardianc e 10 mg qdlispro SSICarb control dietAdjust meds prn Essential hypertension 58948585 I10 Continue home meds:norva sc 10 mg qdbumex 2 mg qdMoniotor VS, labs, adjust meds prn Hyperlipidemia 80903676 E78.49 continue atorvastat in 40 mg qdgemfibro zil stopped due to interventi on with lipitor LF Ts WNRLipid panel if stays [facility] Hypothyroidism 43536072 E03.8 Continue levothyrox ine 200 mcg qdTSH, FT4 prn Gastroesop hageal reflux disease without esophagitis 163095277 K21.9 ??started omeprazole 20 mg qd while in the hospitalmo nitor GI sx.conside r stopping in 6 wks. if no sx. Anxiety 84390988 F41.9 Continue home meds:cymba lta 20 mg qdativan 0.5 mg tid prn (x14d, then re-eval)Ps h referral PRNMonitor mood, behaviors Chronic pain syndrome 37 0095874 G89.4 Continue:c ymbalta 20 mg qdoxycodon e 5 mg q8 hr prnPt. states chronic low back pain, knee pain, and sacral pain due to a fractured tailbone at 20 yrs. of age) Obstructiv e sleep apnea syndrome 66742826 G47.33 Per pt.Does not use CPAP, instead wears O2 2L RTC at home. [id number] [facility] [address] 09/14/2024 09:01:39 09/15/2024 09:07:05 Constipation 68683644 K59.00 resolvedMa g Citrate and fleets ordered with very good results.Miralax daily09/14 change Senna-s 2 tabs from bid to dailyEncou rage OOB, fiber, fluidsCont inue to monitor closely and adjust PRN Asthenia 74520863 R53.1 Deconditio rosana due to hospitaliz ation and chronic medical conditions .PT OT eval and tx., making gains.Goal is to return home. Open wound 237078938 T14 .8XXA Open wound sacral area - developed in hosp.[place] ct started first as MASD due to chronic incontinen ce, now with opening in skin.Had been referred to Wound PA-C in house, but has not been seen.area is improving. will reconsultC ontinuetri ad cream, cover with border foam dressing for comfort, change q od and prn.Pressu re relief as much as possibleMV I with minerals dailyDieta ry supplement s per puller out - currently on glucerna bid. Concern of potential breakdown on heels as does not allow pillow under legs to float heels due to chronic sacral pain from old fracture. Can try heel boots if cyndi. to help reduce pressure as well as skin prep qd.Monitor closely. Acute hypo xemic respiratory failure 644082402 J96.01 Bangs related to COPD and acute on chronic CHF.Respon ded well to interventi ons in hosp., currently stable.Con tinue O2 @ 2L - chronic use.Contin ue inhalers for COPD, bumex for CHF.Monito r closely Chronic ob structive pulmonary disease 58216944 J41.1 Treated for exac. in hosp. with nebs and steroids with adamaris t.Continue O2 - uses 2L chronicall y at home.Chuck nue:duoneb prnalbuter ol MDI prn - at bedside for self administra tion.Monit or sats, resp. status for change. Pneumonia 548748482 J18. 9 resolvedTr eated with ceftriaxon e and azithromyc in x 7 days with adamaris t, transition ed to Augmentin 875 mg bid x 3d and Doxy 100 mg bid x 3d upon d/c to complete a 10 day course of tx.Resolvi ng, continue to monitor resp. sx.monitor for need to repeat cxr if resp symptoms persist/re turn Diastolic heart failure 963000273 I50.33 Treated with IV lasix in hosp.,harding ged back to bumex 2 mg qd with adamaris t in condition. Heart healthy/lo w salt dietDaily VS and weightspt currently 218, will need another weight(8 lb increase since admit)nsg awareFollo w for decompensa tionmonito rbmp and cbc maggi 09/15 Pleural effusion 2006577 8 J90 stable without increased work of breathings /p thoracente sis from hospmonito r Chronic ki dney disease stage 3 955796064 N18.30 bmp and cbc as above, monitor need to continueMa intain hydrationA void nephrotoxi cs Diabetes mellitus 820014 09 E11.9 A1C 7.6%BS mostly 100s - 200sContin ue :basaglar 15 units qdjardianc e 10 mg qdlispro SSICarb control dietAdjust meds prn Essential hypertension 73295491 I10 Continue:n orvasc 10 mg qdbumex 2 mg qdMoniotor VS, labs, adjust meds prn Hyperlipidemia 86566702 E78.49 continueat orvastatin 40 mg qdgemfibro zil stopped due to interventi on with lipitor LF Ts WNRLipid panel 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 started while in the hospital)m onitor GI sx.conside r stopping in 6 wks. if no sx. Anxiety 20091539 F41.9 Continue :cymbalta 20 mg qdativan 0.5 mg tid prn (x14d, then re-eval)ev al on sych referral PRNMonitor mood, behaviors Chronic pain syndrome 37 5960623 G89.4 Continue:c ymbalta 20 mg qdoxycodon e 5 mg q8 hr prnPt. states chronic low back pain, knee pain, and sacral pain due to a fractured tailbone at 20 yrs. of age) Obstructiv e sleep apnea syndrome 38887299 G47.33 Per pt.Does not use CPAP, instead wears O2 2L RTC at home. [id number] Carlee [facility]zc[facility] [address] 09/27/2024 20:05:35 09/28/2024 10:42:39 Diastolic heart failure 044165400 I50.33 Appears euvolemic. Last wt on 09/24 was down 5# from previous wt.Daily wts have been ordered 4 times and not being done.Wts ordered for M/W/FConti nue Bumex 2 mg qd.Monitor resp. status, fluid status, wts and labs. Asthenia 85198764 R53.1 Improved back to baseline per pt.Unclear if rehab agrees.Molina villareal have SS consult with rehab and pt tomorrow to see if ready for d/c. Open wound 318699729 T14 .8XXA Resolved.C ontinue good skin care to prevent reopening. Acute hypo xemic respiratory failure 178353906 J96.01 Resolved.A s above. Chronic ob structive pulmonary disease 89863511 J41.1 Back to baseline per pt.Continu e atrovent 2 puffs q 6 hrs prn.Contin ue supplement al O2 titrated to sats >90%Monito r resp status. Pleural effusion 7002831 8 J90 Thought to be due to PNA and CHF.Txed with abxs and thoracente sis.No f/u needed unless increased sxs.Monito r resp status Chronic ki dney disease stage 3 510006862 N18.32 Back to baseline.C ontinue to avoid nephrotoxi c meds as able.Monit or labs.Renal consult prn. Diabetes mellitus 008161 09 E11.9 Sugars in adequate control.Co ntinue basaglar 15 units qd, jardiance 10 mg qd and SSIMonitor fingerstic ks TID and HgA1C q 3 months. Essential hypertension 46701789 I10 In good control since here.Chuck nue amlodipine 10 mg qd and bumex 2 mg qdMonitor BP and labs. Hyperlipidemia 42893271 E78.49 Continue atorvastat in 40 mg qdMonitor labs as outpt Hypothyroidism 53126215 E03.8 Continue levothyrox ine 200 mcg qdI can't find a TSH in [facility] or [facility] systems.Wi ll order for AM Gastroesop hageal reflux disease without esophagitis 222285699 K21.9 No current sxs.Contin ue omeprazole 20 mg qdMonitor GI sx. Pneumonia 175173182 J18. 9 Resolved Anxiety 41746392 F41.1 Mood good tonight.Co ntinue Cymbalta 20 mg qd and lorazepam 0.5 mg TID prn.Monito r mood.Psych following. Chronic pain syndrome 37 0806260 G89.4 Continue meds as above and oxycodone 5 mg q 8 hrs prn and APAP 650 mg q 4 hrs prn.Monito r sxs. Obstructiv e sleep apnea syndrome 24793969 G47.33 Not on CPAP.F/U as outpt. [id number] Eloina Odom NP [facility] [address] 09/30/2024 08:15:34 10/03/2024 13:20:59 Diastolic heart failure 725829306 I50.33 Appears euvolemic. weight 203 on 09/24 last, down approx 5 lbs hereweight daily at homeContin ue Bumex 2 mg qd.Monitor resp. status, fluid status, at home with services and pcp outpt Asthenia 61603344 R53.1 Improved back to baseline per pt.Unclear if rehab agrees but pt insistent on going home.Pt able to walk approx 75 feet with walker and at baseline prior to hospitaliz ationmonit or with pcp outpt Chronic ob structive pulmonary disease 23689045 J41.1 Back to baseline per pt.Continu e atrovent 2 puffs q 6 hrs prn.Contin ue supplement al O2 2at liters baseline and titrated to sats >90%Monito r resp status outpt with pcp and services Pleural effusion 4438149 8 J90 Thought to be due to PNA and CHF.Txed with abxs and thoracente sis.No f/u needed unless increased sxs.Monito r resp status outpt with pcp Acute hypo xemic respiratory failure 701014765 J96.01 Resolved.A s above. Chronic ki dney disease stage 3 014227518 N18.32 Back to baseline. cr 1.5-1.9Con tinue to avoid nephrotoxi c meds as able.Monit or labs outpt with pcpRenal consult prn outpt Diabetes mellitus 682546 09 E11.9 Sugars in adequate control.mo stly 100-200sCo ntinue basaglar 15 units qd, jardiance 10 mg qd and SSIMonitor fingerstic ks TID and HgA1C q 3 months with pcp outpt Essential hypertension 03981997 I10 In good control since here.Chuck nue amlodipine 10 mg qd and bumex 2 mg qdMonitor BP and labs outpt with pcp prn Hyperlipidemia 77041063 E78.49 Continue atorvastat in 40 mg qdMonitor outpt with pcp Open wound 012849929 T14 .8XXA Resolved.C ontinue good skin care to prevent reopening. Hypothyroidism 48572343 E03.8 Continue levothyrox ine 200 mcg qdmonitor oupt with pcp Gastroesop hageal reflux disease without esophagitis 668285271 K21.9 No current sxs.Contin ue omeprazole 20 mg qdMonitor GI sx. outpt with pcp Pneumonia 722391090 J18. 9 Resolved Anxiety 50539425 F41.1 Mood good tonight.Co ntinue Cymbalta 20 mg qd and lorazepam 0.5 mg TID prn.Monito r mood outpt with pcp Chronic pain syndrome 37 8130077 G89.4 Continue meds as above and oxycodone 5 mg q 8 hrs prn and APAP 650 mg q 4 hrs prn.Monito r sxs. outpt with pcp Obstructiv e sleep apnea syndrome 56648040 G47.33 Not on CPAP.F/U as outpt Health Concerns Section Related Observation LastModified by Organization Detai ls LastModified Time None Recorded Concern Status LastModified by Organization Details LastModified Time None Recorded Advance Directives Directive N: Full Code Payers Encounter Date Sequence Insurance Name Policy Number Policy Tidwell Covered Member ID [place] Member ID Guarantor Name 09/06/2024 1 [place] [employer] Radhika Vaca [id number] Radhika Vaca 09/06/2024 2 [place] [facility] Radhika Vaca [id number] Radhika Vaca 09/08/2024 1 [place] [employer] Radhika Vaca [id number] Radhika Vaca 09/08/2024 2 [place] [facility] Radhika Vaca [id number] Radhika Vaca 09/14/2024 1 [place] [employer] Radhika Vaca [id number] Radhika Vaca 09/14/2024 2 [place] [facility] Radhika Vaca [id number] Radhika Vaca 09/27/2024 1 [place] [facility] Radhika Vaca [id number] Radhika Vaca 09/27/2024 2 [place] [facility] Radhika Vaca [id number] Radhika Vaca 09/30/2024 1 [place]: [facility] Radhika Vaca [id number] Radhika Vaca 09/30/2024 2 [place] [facility] Radhika Vaca [id number] Radhika Vaca Notes Date Note Type Note Provider Name and Address Organization Details Recorded Time 09/06/2024 text/html Radhika is seen today for a routine, 30 day visit. She is a 78 yo lady, admitted to [facility] 08/09/24 from [facility] for continued care [...] last week as ordered. Referred to Wound PA-C re: sacral area [...] O2 use.Full code ALLAN PRADHAN NP [address], [address], [place], [address], [facility] [employer] 09/06/2024 15:00:32 09/08/2024 text/html Radhika is seen today for an acute visit. She is a 78 yo lady, admitted to [facility] 08/09/24 from [facility] for continued care [...] O2 use.Full code ALLAN PRADHAN NP [address], [address], [place], [address], [facility] [employer] 09/08/2024 13:56:51 09/14/2024 text/html Radhika is seen today for an acute rounding visit. PMH: anxiety, CKD3, COPD, chronic pain, DM, CHF, dysphagia, HTN, HLD, hypothyroid, LBBB, morbid obesity, pernicious anemia, TEZ, chronic O2 use.Full code She is a 78 yo lady, admitted to [facility] 08/09/24 from [facility] for continued care and rehab after a a brief hosp. due to resp. failure (COPD, PNA, CHF) and MARJORIE on CKD (cardiorenal syndrome). Also developed a sacral wound during admission. While here at [facility]:Radhika is doing well and working with rehab [...] mod. fall risk Eloina Odom, CHIO [address], [address], [place], [address], [facility] [employer] 09/14/2024 09:44:48 09/27/2024 text/html This is a [...] anemia, LBBB, and TEZ. Carlee Amezcua MD [address] [place] [address], [address], [place], [address], [facility] - [employer] 09/28/2024 02:15:34 09/30/2024 text/html Pt is a [...] transferred here for STR. Since [facility]: She had a sacral wound treated [...] her home with o2. She is aware nephrology social worker is working on a plan and she will follow with pcp outpt. Breathing non labored. Eloina Odom NP [address], [address], [place], [address], [facility] [employer] 09/30/2024 08:56:26 OBGyn Episode No OBEpisode recorded.
[2024-11-21 17:16] VITALS: BP 126/49; PULSE 86; RESP 20; TEMP 36.8; O2SAT 96
--- NOTE | 2024-11-21 17:18 | PC.NURSE ---
catheter that was present on admission was removed. new 16f catheter inserted.
[2024-11-21 18:26] VITALS: BP 126/49; PULSE 86; RESP 20; TEMP 36.8; O2SAT 96
== END 2024-11-21 18:27 | disposition home or self-care (01) ==
PROVIDERS: Registered Nurse Emergency; Emergency Provider Emergency Medicine; PCP Internal Medicine
DX: T83.038A Leakage of other urinary catheter, initial encounter (principal); Y73.8 Miscellaneous gastroenterology and urology devices associated with adverse incidents, not elsewhere classified; Y92.019 Unspecified place in single-family (private) house as the place of occurrence of the external cause; R33.9 Retention of urine, unspecified
CPT/HCPCS: 51702; 81001; 87086; 87088; 99284

== ENCOUNTER 2024-12-23 06:05 | Emergency (ER) | payer MEDICARE, MEDICAID, SELFPAY ==
[2024-12-23 06:14] VITALS: BP 155/58; PULSE 63; RESP 24; TEMP 37.1; O2SAT 100; BMI 36.6
--- NOTE | 2024-12-23 06:33 | PC.NURSE ---
new francisco cath placed, 18f. provider aware. patient appears more comfortable after new francisco cath placed.
--- NOTE | 2024-12-23 06:52 | ED.FEMALEGU ---
HPI - Female Genitourinary General Chief complaint: Urogenital-Female Stated complaint: Cath pulled out pain & Diff breathing BGL 256 Time Seen by Provider: 12/23/24 06:32 Source: patient and EMS Mode of arrival: EMS Limitations: no limitations History of Present Illness ED Provider: Kelli Vital NP HPI Narrative: Patient is a 79-year-old female presents emergency department via EMS for evaluation. She reports prior to arrival, her Moyer catheter tubing had gotten caught underneath her chair she went to stand up and it pulled, the catheter was not fully removed. She was endorsing pain and pressure to the genital region. On arrival, the Moyer catheter again was not fully dislodged, was removed and she had great relief from the pain, the catheter balloon was still inflated. she otherwise denies any recent complications with the catheter, denies fevers, chills, nausea, vomiting, abdominal or back pain. Related Data Home Medications ?Medication ?Instructions ?Recorded ?Confirmed levothyroxine 200 mcg tablet 200 mcg PO DAILY@0600 06/19/24 11/07/24 oxycodone 5 mg tablet 5 mg PO BID PRN Pain, Severe (Pain 10/27/24 11/07/24 Scale 7-10) Previous Rx's ?Medication ?Instructions ?Recorded insulin syringe-needle U-100 0.5 #100 ea 07/29/23 mL 31 gauge x 5/16 (BD Insulin Syringe Ultra-Fine) pen needle, diabetic 31 gauge x #100 ea 07/29/23 5/16 (1st Tier Unifine Pentips) lorazepam 0.5 mg tablet 0.5 mg PO TID PRN anxiety 30 days 04/04/24 #90 tabs duloxetine 20 mg capsule,delayed 20 mg PO DAILY 90 days #90 caps 05/14/24 release (Cymbalta) atorvastatin 40 mg tablet 40 mg PO BEDTIME 90 days #90 tabs 06/19/24 blood sugar diagnostic (Accu-Chek #100 ea 07/26/24 Odilia Plus test strips) empagliflozin 10 mg tablet 10 mg PO DAILY #90 tabs 07/26/24 (Jardiance) nystatin 100,000 unit/gram topical 1 appl topical BID #30 grams 08/09/24 powder ipratropium 0.5 mg-albuterol 3 mg 3 ml inhalation Q4H PRN shortness 10/16/24 (2.5 mg base)/3 mL nebulization of breath or wheezing #90 mL soln bumetanide 1 mg tablet 1 mg PO DAILY #90 tabs 11/03/24 cefuroxime axetil 250 mg tablet 250 mg PO Q12H #18 tabs 11/03/24 blood sugar diagnostic (Accu-Chek #100 ea 11/08/24 Guide test strips) lancets (Accu-Chek Softclix #100 ea 11/08/24 Lancets) albuterol sulfate 90 mcg/actuation 2 puff inhalation Q6H PRN 12/08/24 aerosol inhaler (Ventolin HFA) shortness of breath or wheezing 30 days #8.5 grams insulin glargine 100 unit/mL (3 25 unit (0.25 mL) subcut BEDTIME 12/22/24 mL) subcutaneous pen (Basaglar 30 days #7.5 mL KwikPen U-100 Insulin) Allergies Allergy/AdvReac Type Severity Reaction Status Date / Time ibuprofen [From Motrin] Allergy Unknown swelling Verified 12/23/24 06:17 codeine [CODEINE] AdvReac Unknown SLEEPY Verified 12/23/24 06:17 Review of Systems Review of Systems: Yes all other systems are reviewed and are negative PMFSH Past Medical History Attestation statement: The following information was validated with the patient. Source: old records reviewed Medical History Anemia Herpes zoster MARJORIE (acute kidney injury) Left bundle branch block Morbid obesity Chronic pain syndrome Anxiety Pernicious anemia COPD (chronic obstructive pulmonary disease) CHF (congestive heart failure) Hypothyroidism Essential hypertension Diabetes mellitus Pure hypercholesterolemia Surgical History H/O left knee surgery Deficient knowledge of leg surgery History of tonsillectomy and adenoidectomy History of appendectomy Family History Family History Father CVD (cardiovascular disease) Mother No problems noted. Family/Other FH: mental illness Social History Social History Household Members: Children Housing: Apartment Do you presently have visiting nurse or other home services: No Alcohol intake: unknown Patient Tobacco Use Status: Former Tobacco user Tobacco use type: Cigarette Smoked in Last 30 Days: No e-Cigarette/Vaping Use: Never Used Second Hand Smoke Exposure: No Use of substances other than those prescribed or required for medical reasons: No Advance Directives: Yes Advance Directives on File: Yes Advance Directives Date on File: 06/24/24 service: No Current occupational status: disabled Cognitive needs: Yes Hearing needs: No Vision needs: No Physical Exam Vital Signs: Vital Signs: Last Vital Signs Temp 98.7 F 12/23/24 06:14 Pulse 63 12/23/24 06:14 Resp 24 H 12/23/24 06:14 BP 155/58 H 12/23/24 06:14 Pulse Ox 100 12/23/24 06:14 O2 Del Method Nasal Cannula 12/23/24 06:14 Oxygen Flow Rate 2 12/23/24 06:14 BMI result Body Mass Index 36.6 Appearance: Alert.?Oriented to person, place and time. No acute distress.?Normal affect.? CVS: Heart sounds normal. Normal heart rate and rhythm.? Pulses normal.?? Respiratory: No respiratory distress.? Lung sounds clear to auscultation bilaterally?? Abdomen: Soft and non-tender. Normoactive bowel sounds. ? Urogenital: No bleeding or erythema at the urethra, catheter insertion site free from abnormal findings Skin: Skin warm and dry.? Normal skin color.? Neuro: Moves all extremities spontaneously. Sensation intact bilaterally. Medical Decision Making Medical Decision Making MDM Narrative: patient is a 79-year-old female with past medical history of anemia, left bundle-branch block, obesity, chronic pain syndrome, anxiety, COPD, CHF, hypothyroidism, hypertension, diabetes, hypercholesterolemia presents emergency department for accidental dislodgement of Moyer catheter as per HPI. Catheter was removed on arrival to the ED Moyer, balloon was still inflated, had relief from pain at the urethra after removal. Moyer catheter was replaced without incident by nursing staff. It is draining clear yellow urine. No signs and symptoms to suggest urogenital infection. Stable for discharge back home at this time. Examination is benign. Differential Diagnosis Differential Diagnoses: The differential diagnosis associated with the presentation includes ( See narrative above) Independent Historian Clinical information obtained from an independent historian. History obtained from or confirmed by: EMS External Record Review External record reviewed: Outpatient record Prescription Management I considered prescription management with: Pain Medication ( Tylenol as needed) Discharge Plan Discharge Clinical Impression: Dislodged Moyer catheter Patient Disposition: Home, Self-Care Additional Instructions: You were seen in the emergency department after Moyer catheter had accidentally dislodged. This was replaced without difficulty and was draining adequately clear yellow urine. Follow-up with your primary care doctor. Return with any new or worsening symptoms or concerns Prescriptions: No Action (DME) insulin syringe-needle U-100 [BD Insulin Syringe Ultra-Fine] 0.5 mL 31 gauge x 5/16 syringe See Rx Instructions .Route Qty: 100 3RF Rx Instructions: Use 1 needle once a day (DME) pen needle, diabetic [1st Tier Unifine Pentips] 31 gauge x 5/16 needle See Rx Instructions .Route Qty: 100 4RF Rx Instructions: Use 1 pen needle once a day lorazepam 0.5 mg tablet 0.5 mg PO TID PRN (Reason: anxiety) 30 Days Qty: 90 0RF Rx Instructions: coverage for Ranjith Chnu duloxetine [Cymbalta] 20 mg capsule,delayed release(DR/EC) 20 mg PO DAILY 90 Days Qty: 90 0RF atorvastatin 40 mg tablet 40 mg PO BEDTIME 90 Days Qty: 90 3RF Jardiance 10 mg tablet 10 mg PO DAILY Qty: 90 1RF (DME) Accu-Chek Odilia Plus test strp Strip See Rx Instructions .Route Qty: 100 1RF Rx Instructions: Use 1 test strip once a day ipratropium-albuterol 0.5 mg-3 mg(2.5 mg base)/3 mL solution for nebulization 3 ml inhalation Q4H PRN (Reason: shortness of breath or wheezing) Qty: 90 0RF (DME) Accu-Chek Guide test strips Strip See Rx Instructions .Route Qty: 100 3RF Rx Instructions: Use 1 test strip once a day (DME) lancets [Accu-Chek Softclix Lancets] Misc See Rx Instructions .Route Qty: 100 3RF Rx Instructions: Use 1 lancet once a day albuterol sulfate [Ventolin HFA] 90 mcg/actuation HFA aerosol inhaler 2 puff inhalation Q6H PRN (Reason: shortness of breath or wheezing) 30 Days Qty: 8.5 1RF insulin glargine [Basaglar KwikPen U-100 Insulin] 100 unit/mL (3 mL) insulin pen 25 unit subcut BEDTIME 30 Days Qty: 7.5 0RF oxycodone 5 mg tablet 5 mg PO BID PRN (Reason: Pain, Severe (Pain Scale 7-10)) Rx Instructions: Partial Fill upon patient request. bumetanide 1 mg tablet 1 mg PO DAILY Qty: 90 1RF Protocol: Hold for SBP< HOLD for SBP < : 90 cefuroxime axetil 250 mg tablet 250 mg PO Q12H Qty: 18 0RF levothyroxine 200 mcg tablet 200 mcg PO DAILY@0600 nystatin 100,000 unit/gram Powder 1 appl topical BID Qty: 30 0RF Protocol: Apply to: Apply to: [facility] [employer] Language: Luxembourger
--- NOTE | 2024-12-23 07:07 | PC.NURSE ---
Moyer draining clear yellow urine. Protective blacked to buttocks per patients request. Transport home via ems to be booked , patient provided with phone to call son
--- OUTSIDE RECORDS SUMMARY | 2024-12-23 07:16 | XMS_ITS | Encounter Summary ---
Author Organization [facility] Address [address] [place] [address] Care Team Providers Care Ribbon Lapper Tender Name Role Phone Hal Cole MD Primary Care Provider [phone] Encounter Details Date Type Department Care Team (Late st Contact Info) Description 09/21/[address] [facility] - Main Lab [address] [place] [address] Hal Cole MD [address] [place] [address], [phone] Chronic kidney disease, unspecified Social History Tobacco Use Types Packs/Day Years Used Date Smoking Tobacco: Never Assessed Comments Unknown Sex and Gender Information Value Date Recorded Sex Assigned at Not on file Legal Sex Female 8:35 PM EST Gender Identity Not on file [...] LAB CHEMISTRY METHOD 09/21/2024 12:11 PM EST [facility] Potassium 4.2 3.5 - 5.5 mmol/L LAB CHEMISTRY METHOD 09/21/2024 12:11 PM EST [facility] Chloride 107 96 - 110 mmol/L LAB CHEMISTRY METHOD 09/21/2024 12:11 PM EST [facility] CO2 26 21 - 32 mmol/L LAB CHEMISTRY METHOD 09/21/2024 12:11 PM [facility] Anion Gap 10 3 - 11 LAB CHEMISTRY METHOD 09/21/2024 12:11 PM [facility] Glucose 126(H) 70 - 100 mg/dL LAB CHEMISTRY METHOD 09/21/2024 12:11 PM [facility] BUN 49(H) 5 - 25 mg/dL LAB CHEMISTRY METHOD 09/21/2024 12:11 PM [facility] Creatinine 1.58(H) 0.50 - 1.10 mg/dL LAB CHEMISTRY METHOD 09/21/2024 12:11 PM [facility] eGFR 34(L) >=60 mL/min/1. 73m2 LAB CHEMISTRY METHOD 09/21/2024 12:11 PM [facility] Comment:Calculation based on the??Chronic Kidney Disease Epidemiology Collaboration (CKD-EPI) equation refit??without adjustment for race. BUN/Creatinine Ratio 31.0 LAB CHEMISTRY METHOD 09/21/2024 12:11 PM [facility] Calcium 8.4(L) 8.5 - 10.5 mg/dL LAB CHEMISTRY METHOD 09/21/2024 12:11 PM [facility] Blood Venous blood specimen / Unknown Venipuncture / Unknown 09/21/2024 7:31 AM EST 09/21/2024 9:59 AM EST us Hal Cole MD LAB BLOOD ORDERABLES Final Resul t [facility] [address] [place] [address], documented in this encounter Visit Diagnoses Diagnosis Chronic kidney disease, unspecified documented in this encounter Care Teams Ribbon Lapper Tender Relationship Specialty Start Date End Date Hal Cole MD [address] [place] [address], [phone] PCP - General Family Medicine 11/21/24 documented as of this encounter
--- OUTSIDE RECORDS SUMMARY | 2024-12-23 07:16 | XMS_ITS | Encounter Summary ---
Author Organization [employer] Address [address] [place] [address] Care Team Providers Care Software Engineer Kernel Name Role Phone Hal Cole MD Primary Care Provider [phone] Encounter Details Date Type Department Care Team (Late st Contact Info) Description 09/28/2024 Lab Requisition [facility] - Main Lab [address] [facility] [place] [address] Hal Cole MD [address] [place] [address], [phone] Essential (primary) hypertension; Chronic obstructive pulmonary [...] LAB CHEMISTRY METHOD 09/28/2024 1:08 PM EST [facility] Blood Venous blood specimen / Unknown Venipuncture / Unknown 09/28/2024 7:04 AM EST 09/28/2024 11:03 AM EST Hal Cole MD LAB BLOOD ORDERABLES Final Resul t Performing Organization Address [facility]/ZIP Co de Phone Number [facility] [address] [place] [address], [place] [phone] * Free thyroxine with reflex to free triiodothyronine (09/28/2024 7:04 AM EST) Free T4 0.88 0.70 - 1.80 ng/dL LAB CHEMISTRY METHOD 09/28/2024 12:41 PM EST [facility] Blood Venous blood specimen / Unknown Venipuncture / Unknown 09/28/2024 7:04 AM EST 09/28/2024 11:03 AM EST Hal Cole MD LAB BLOOD ORDERABLES Final Resul t Performing Organization Address City/[facility]/ZIP Co de Phone Number [facility] [address] [place] [address], [place] [phone] * (ABNORMAL) Thyroid stimulating hormone with reflex to free t4 and free t3 (09/28/2024 7:04 AM EST) TSH 50.98(H) 0.40 - 4.00 mcIU/mL LAB CHEMISTRY METHOD 09/28/2024 12:15 PM [facility] Blood Venous blood specimen / Unknown Venipuncture / Unknown 09/28/2024 7:04 AM EST 09/28/2024 11:03 AM EST us Hal Cole MD LAB BLOOD ORDERABLES Final Resul t [facility] [address] [place] [address], [place] [phone] * (ABNORMAL) Basic metabolic panel (09/28/2024 7:04 AM EST) Sodium 141 133 - 145 mmol/L LAB CHEMISTRY METHOD 09/28/2024 12:06 PM [facility] Potassium 4.2 3.5 - 5.5 mmol/L LAB CHEMISTRY METHOD 09/28/2024 12:06 PM [facility] Chloride 106 96 - 110 mmol/L LAB CHEMISTRY METHOD 09/28/2024 12:06 PM [facility] CO2 29 21 - 32 mmol/L LAB CHEMISTRY METHOD 09/28/2024 12:06 PM [facility] Anion Gap 6 3 - 11 LAB CHEMISTRY METHOD 09/28/2024 12:06 PM [facility] Glucose 139(H) 70 - 100 mg/dL LAB CHEMISTRY METHOD 09/28/2024 12:06 PM [facility] BUN 67(H) 5 - 25 mg/dL LAB CHEMISTRY METHOD 09/28/2024 12:06 PM [facility] Creatinine 1.83(H) 0.50 - 1.10 mg/dL LAB CHEMISTRY METHOD 09/28/2024 12:06 PM [facility] eGFR 28(L) >=60 mL/min/1. 73m2 LAB CHEMISTRY METHOD 09/28/2024 12:06 PM EST [facility] Comment:Calculation based on the??Chronic Kidney Disease Epidemiology Collaboration (CKD-EPI) equation refit??without adjustment for race. BUN/Creatinine Ratio 36.6 LAB CHEMISTRY METHOD 09/28/2024 12:06 PM [facility] Calcium 8.3(L) 8.5 - 10.5 mg/dL LAB CHEMISTRY METHOD 09/28/2024 12:06 PM [facility] Blood Venous blood specimen / Unknown Venipuncture / Unknown 09/28/2024 7:04 AM EST 09/28/2024 11:03 AM EST us Hal Cole MD LAB BLOOD ORDERABLES Final Resul t [facility] [address] [place] [address], [place] [phone] * (ABNORMAL) Complete blood count (09/28/2024 7:04 AM EST) WBC 7.1 4.8 - 10.8 K/mcL LAB HEMETOLOGY METHOD 09/28/2024 11:31 AM [facility] RBC 3.70(L) 3.80 - 4.80 M/mcL LAB HEMETOLOGY METHOD 09/28/2024 11:31 AM [facility] Hemoglobin 10.8(L) 11.5 - 16.0 g/dL LAB HEMETOLOGY METHOD 09/28/2024 11:31 AM [facility] Hematocrit 36.0 35.0 - 47.0 % LAB HEMETOLOGY METHOD 09/28/2024 11:31 AM [facility] MCV 96.5 79.0 - 98.0 FL LAB HEMETOLOGY METHOD 09/28/2024 11:31 AM [facility] MCH 29.0 27.0 - 32.0 pcg LAB HEMETOLOGY METHOD 09/28/2024 11:31 AM EST [facility] MCHC 30.0(L) 32.0 - 37.0 g/dL LAB HEMETOLOGY METHOD 09/28/2024 11:31 AM [facility] RDW 13.5 11.0 - 15.0 % LAB HEMETOLOGY METHOD 09/28/2024 11:31 AM [facility] Platelets 214 130 - 400 K/mcL LAB HEMETOLOGY METHOD 09/28/2024 11:31 AM [facility] MPV 9.9 7.0 - 11.0 FL LAB HEMETOLOGY METHOD 09/28/2024 11:31 AM [facility] NRBC 0.0 <1.0 % LAB HEMETOLOGY METHOD 09/28/2024 11:31 AM [facility] NRBC Absolute 0.00 <0.10 K/mcL LAB HEMETOLOGY METHOD 09/28/2024 11:31 AM [facility] Blood Venous blood specimen / Unknown Venipuncture / Unknown 09/28/2024 7:04 AM EST 09/28/2024 11:03 AM EST us Hal Cole MD LAB BLOOD ORDERABLES Final Resul t [facility] [address] [place] [address], documented in this encounter Visit Diagnoses Diagnosis Essential (primary) hypertension Unspecified essential hypertension Chronic obstructive pulmonary disease, unspecified (CMS/HCC) documented in this encounter Care Teams Software Engineer Kernel Relationship Specialty Start Date End Date Hal Cole MD [address] [place] [address], [phone] PCP - General Family Medicine 09/15/24 documented as of this encounter
--- OUTSIDE RECORDS SUMMARY | 2024-12-23 07:16 | XMS_ITS | Encounter Summary ---
Author Organization [facility] Address [address] [place] [address] Care Team Providers Care Transition Program Manager Name Role Phone aHl Cole MD Primary Care Provider [phone] Encounter Details Date Type Department Care Team (Late st Contact Info) Description 08/27/[address] [facility] - Main Lab [address] [facility] [place] [address] Hal Cole MD [address] [place] [address], [phone] Type 2 diabetes mellitus without complications [...] Travel phlebotomy fee (08/29/2024 5:30 AM EST) [facility] HOME TRAVEL PHLEBOTOMY FEE Completed 08/29/2024 10:01 AM [facility] Blood Venous blood specimen / Unknown Venipuncture / Unknown 08/29/2024 5:30 AM EST 08/29/2024 9:51 AM EST us Hal Cole MD LAB BLOOD ORDERABLES Final Resul t [facility] [address] [place] [address], [place] [phone] * (ABNORMAL) Basic metabolic panel (08/29/2024 5:30 AM EST) [facility] Sodium 137 133 - 145 mmol/L LAB CHEMISTRY METHOD 08/29/2024 10:57 AM [facility] Potassium 5.0 3.5 - 5.5 mmol/L LAB CHEMISTRY METHOD 08/29/2024 10:57 AM [facility] Comment:Hemolysis present Chloride 101 96 - 110 mmol/L LAB CHEMISTRY METHOD 08/29/2024 10:57 AM [facility] CO2 29 21 - 32 mmol/L LAB CHEMISTRY METHOD 08/29/2024 10:57 AM [facility] Anion Gap 7 3 - 11 LAB CHEMISTRY METHOD 08/29/2024 10:57 AM [facility] Glucose 156(H) 70 - 100 mg/dL LAB CHEMISTRY METHOD 08/29/2024 10:57 AM [facility] BUN 62(H) 5 - 25 mg/dL LAB CHEMISTRY METHOD 08/29/2024 10:57 AM [facility] Creatinine 1.63(H) 0.50 - 1.10 mg/dL LAB CHEMISTRY METHOD 08/29/2024 10:57 AM [facility] eGFR 33(L) >=60 mL/min/1. 73m2 LAB CHEMISTRY METHOD 08/29/2024 10:57 AM [facility] Comment:Calculation based on the??Chronic Kidney Disease Epidemiology Collaboration (CKD-EPI) equation refit??without adjustment for race. BUN/Creatinine Ratio 38.0 LAB CHEMISTRY METHOD 08/29/2024 10:57 AM [facility] Calcium 8.8 8.5 - 10.5 mg/dL LAB CHEMISTRY METHOD 08/29/2024 10:57 AM [facility] Blood Venous blood specimen / Unknown Venipuncture / Unknown 08/29/2024 5:30 AM EST 08/29/2024 9:51 AM EST us Hal Cole MD LAB BLOOD ORDERABLES Final Resul t [facility] [address] [place] [address], * (ABNORMAL) Complete blood count (08/29/2024 5:30 AM EST) WBC 8.4 4.8 - 10.8 K/mcL LAB HEMETOLOGY METHOD 08/29/2024 10:59 AM [facility] RBC 4.00 3.80 - 4.80 M/mcL LAB HEMETOLOGY METHOD 08/29/2024 10:59 AM [facility] Hemoglobin 11.6 11.5 - 16.0 g/dL LAB HEMETOLOGY METHOD 08/29/2024 10:59 AM [facility] Hematocrit 39.0 35.0 - 47.0 % LAB HEMETOLOGY METHOD 08/29/2024 10:59 AM [facility] MCV 98.5(H) 79.0 - 98.0 FL LAB HEMETOLOGY METHOD 08/29/2024 10:59 AM [facility] MCH 29.3 27.0 - 32.0 pcg LAB HEMETOLOGY METHOD 08/29/2024 10:59 AM EST [facility] MCHC 29.7(L) 32.0 - 37.0 g/dL LAB HEMETOLOGY METHOD 08/29/2024 10:59 AM [facility] RDW 13.5 11.0 - 15.0 % LAB HEMETOLOGY METHOD 08/29/2024 10:59 AM [facility] Platelets 308 130 - 400 K/mcL LAB HEMETOLOGY METHOD 08/29/2024 10:59 AM [facility] MPV 9.9 7.0 - 11.0 FL LAB HEMETOLOGY METHOD 08/29/2024 10:59 AM [facility] NRBC 0.0 <1.0 % LAB HEMETOLOGY METHOD 08/29/2024 10:59 AM [facility] NRBC Absolute 0.00 <0.10 K/mcL LAB HEMETOLOGY METHOD 08/29/2024 10:59 AM [facility] Blood Venous blood specimen / Unknown Venipuncture / Unknown 08/29/2024 5:30 AM EST 08/29/2024 9:51 AM EST us Hal Cole MD LAB BLOOD ORDERABLES Final Resul t [facility] [address] [place] [address], documented in this encounter Visit Diagnoses Diagnosis Type 2 diabetes mellitus without complications (CMS/HCC) Chronic obstructive pulmonary disease, unspecified (CMS/HCC) documented in this encounter Care Teams Transition Program Manager Relationship Specialty Start Date End Date Hal Cole MD [address] [place] [address], [phone] PCP - General Family Medicine 09/15/24 documented as of this encounter
--- OUTSIDE RECORDS SUMMARY | 2024-12-23 07:17 | XMS_ITS | Clinical Summary ---
Author Organization [facility] Address [address] [place] [address] Phone Care Team Providers Care Onshore Diver Name Role Phone Neida Mirza MD Primary Care Provider [phone] Allergies Active Allergy Reactions Criticality Noted Date [...] Pneumococcal Vaccine: 65+ Ye ars (1 of 1 - PCV) 2012 Diabetes: Hemoglobin A1C 11/25/2021 Diabetes: Ophthalmology Exam 11/25/2021 Diabetes: Pedal Pulse Checked 11/25/2021 Diabetes: Sensory Foot Exam 11/25/2021 Diabetes: Visual Foot Exam 11/25/2021 Influenza Vaccine (#1) 2024 Hepatitis B Vaccine Aged Out No longe r eligible based on patient's age to complete this topic Insurance MEDICARE MEDICARE Care Teams Onshore Diver Relationship Specialty Start Date End Date Neida Mirza MD [address] [place], [place] PCP - General 11/05/20
--- OUTSIDE RECORDS SUMMARY | 2024-12-23 07:17 | XMS_ITS | Clinical Summary ---
Author Organization [address] [facility] Address [address] [place] [address] Phone Care Team Providers Care Resistor Tester Name Role Phone Hal Cole MD Primary Care Provider [phone] Encounters Date Type Department Care Team Description 09/28/2024 Lab Requisition [facility] - Main Lab [address] [place] [address] Hal Cole MD Essential (primary) hypertension; Chronic obstructive pulmonary disease, unspecified (CMS/HCC) from [...] Health Maintenance Due Date Last Done Comments DTaP,Tdap,and Td Vaccines (1 - Tdap) 1966 Pneumococcal Vaccine: 50+ Years (1 of 2 - PCV) 1966 Zoster Vaccines (1 of 2) 1997 RSV Immunization Patients 60+ Years Old (1 - 1-dose 75+ series) 2022 Cholesterol Screening (Lipid Panel) 09/27/2022 Depression Screening 09/27/2022 Falls Risk Assessment 09/27/2022 Hepatitis C Screening 09/27/2022 Medicare Annual Wellness Visit 09/27/2022 Osteoporosis Screening (Bone Density Screening) 09/27/2022 Social Influencers of Health Screening 09/27/2022 COVID-19 Vaccine ( - season) 2024 Influenza Vaccine (#1) 2024 Hypertension/CHF/CAD Annual BMP Blood Test 09/28/2025 09/28/2024, [...] patient's age to complete this topic Meningococcal B Vacine Aged Out No lo nger eligible based on patient's age to complete [...] hypertension Chronic obstructive pulmonary disease, unspecified (CMS/HCC) from Last 3 Months Results * (ABNORMAL) Thyroid stimulating hormone with reflex to free t4 and free t3 (09/28/2024 7:04 AM EST) TSH 50.98(H) 0.40 - 4.00 mcIU/mL LAB CHEMISTRY METHOD 09/28/2024 12:15 PM EST [facility] Blood Venous blood specimen / Unknown Venipuncture / Unknown 09/28/2024 7:04 AM EST 09/28/2024 11:03 AM EST Hal Cole MD LAB BLOOD ORDERABLES Final Resul t Performing Organization Address [facility]/ZIP Co de Phone Number [facility] [address] [place] [address], [place] [phone] * Free thyroxine with reflex to free triiodothyronine (09/28/2024 7:04 AM EST) [facility] Free T4 0.88 0.70 - 1.80 ng/dL LAB CHEMISTRY METHOD 09/28/2024 12:41 PM EST [facility] Blood Venous blood specimen / Unknown Venipuncture / Unknown 09/28/2024 7:04 AM EST 09/28/2024 11:03 AM EST Hal Cole MD LAB BLOOD ORDERABLES Final Resul t Performing Organization Address [facility] de Phone Number [facility] [address] [place] [address], [place] [phone] * (ABNORMAL) Complete blood count (09/28/2024 7:04 AM EST) Pathologist [facility] WBC 7.1 4.8 - 10.8 K/mcL LAB HEMETOLOGY METHOD 09/28/2024 11:31 AM EST [facility] RBC 3.70(L) 3.80 - 4.80 M/mcL LAB HEMETOLOGY METHOD 09/28/2024 11:31 AM EST [facility] Hemoglobin 10.8(L) 11.5 - 16.0 g/dL LAB HEMETOLOGY METHOD 09/28/2024 11:31 AM EST [facility] Hematocrit 36.0 35.0 - 47.0 % LAB HEMETOLOGY METHOD 09/28/2024 11:31 AM [facility] MCV 96.5 79.0 - 98.0 FL LAB HEMETOLOGY METHOD 09/28/2024 11:31 AM [facility] MCH 29.0 27.0 - 32.0 pcg LAB HEMETOLOGY METHOD 09/28/2024 11:31 AM [facility] MCHC 30.0(L) 32.0 - 37.0 g/dL LAB HEMETOLOGY METHOD 09/28/2024 11:31 AM [facility] RDW 13.5 11.0 - 15.0 % LAB HEMETOLOGY METHOD 09/28/2024 11:31 AM [facility] Platelets 214 130 - 400 K/mcL LAB HEMETOLOGY METHOD 09/28/2024 11:31 AM [facility] MPV 9.9 7.0 - 11.0 FL LAB HEMETOLOGY METHOD 09/28/2024 11:31 AM [facility] NRBC 0.0 <1.0 % LAB HEMETOLOGY METHOD 09/28/2024 11:31 AM [facility] NRBC Absolute 0.00 <0.10 K/mcL LAB HEMETOLOGY METHOD 09/28/2024 11:31 AM [facility] Blood Venous blood specimen / Unknown Venipuncture / Unknown 09/28/2024 7:04 AM EST 09/28/2024 11:03 AM EST us Hal Cole MD LAB BLOOD ORDERABLES Final Resul t [facility] [address] [place] [address], * (ABNORMAL) Triiodothyronine free (09/28/2024 7:04 AM EST) T3, Free 148(L) 230 - 420 pcg/dL LAB CHEMISTRY METHOD 09/28/2024 1:08 PM [facility] Blood Venous blood specimen / Unknown Venipuncture / Unknown 09/28/2024 7:04 AM EST 09/28/2024 11:03 AM EST us Hal Cole MD LAB BLOOD ORDERABLES Final Resul t [facility] [address] [place] [address], [place] [phone] * (ABNORMAL) Basic metabolic panel (09/28/2024 7:04 AM EST) Pathologist [facility] Sodium 141 133 - 145 mmol/L LAB CHEMISTRY METHOD 09/28/2024 12:06 PM [facility] Potassium 4.2 3.5 - 5.5 mmol/L LAB CHEMISTRY METHOD 09/28/2024 12:06 PM [facility] Chloride 106 96 - 110 mmol/L LAB CHEMISTRY METHOD 09/28/2024 12:06 PM [facility] CO2 29 21 - 32 mmol/L LAB CHEMISTRY METHOD 09/28/2024 12:06 PM [facility] Anion Gap 6 3 - 11 LAB CHEMISTRY METHOD 09/28/2024 12:06 PM [facility] Glucose 139(H) 70 - 100 mg/dL LAB CHEMISTRY METHOD 09/28/2024 12:06 PM [facility] BUN 67(H) 5 - 25 mg/dL LAB CHEMISTRY METHOD 09/28/2024 12:06 PM [facility] Creatinine 1.83(H) 0.50 - 1.10 mg/dL LAB CHEMISTRY METHOD 09/28/2024 12:06 PM [facility] eGFR 28(L) >=60 mL/min/1. 73m2 LAB CHEMISTRY METHOD 09/28/2024 12:06 PM EST [facility] Comment:Calculation based on the??Chronic Kidney Disease Epidemiology Collaboration (CKD-EPI) equation refit??without adjustment for race. BUN/Creatinine Ratio 36.6 LAB CHEMISTRY METHOD 09/28/2024 12:06 PM EST [facility] Calcium 8.3(L) 8.5 - 10.5 mg/dL LAB CHEMISTRY METHOD 09/28/2024 12:06 PM EST [facility] Blood Venous blood specimen / Unknown Venipuncture / Unknown 09/28/2024 7:04 AM EST 09/28/2024 11:03 AM EST us Hal Cole MD LAB BLOOD ORDERABLES Final Resul t [facility] [address] [place] [address], from Last 3 Months Insurance MEDICAID - [place] MEDICARE Care Teams Resistor Tester Relationship Specialty Start Date End Date Hal Cole MD [address] [place] [address], [phone] PCP - General Family Medicine 09/15/24
--- OUTSIDE RECORDS SUMMARY | 2024-12-23 07:17 | XMS_ITS | Encounter Summary ---
Author Organization [employer] Address [address] [place] [address] Care Team Providers Care House Director Name Role Phone Hal Cole MD Primary Care Provider [phone] Encounter Details Date Type Department Care Team (Late st Contact Info) Description 09/15/[address] [facility] - Main Lab [address] [place] [address] Hal Cole MD [address] [place] [address], [phone] Chronic obstructive pulmonary disease, unspecified (CMS/HCC) [...] AM EST) WBC 7.4 4.8 - 10.8 K/[facility] LAB HEMETOLOGY METHOD 09/15/2024 8:[address] [facility] RBC 3.70(L) 3.80 - 4.80 M/mcL LAB HEMETOLOGY METHOD 09/15/2024 8:[address] [facility] Hemoglobin 10.6(L) 11.5 - 16.0 g/dL LAB HEMETOLOGY METHOD 09/15/2024 8:[address] [facility] Hematocrit 35.5 35.0 - 47.0 % LAB HEMETOLOGY METHOD 09/15/2024 8:[address] [facility] MCV 95.4 79.0 - 98.0 FL LAB HEMETOLOGY METHOD 09/15/2024 8:[address] [facility] MCH 28.5 27.0 - 32.0 pcg LAB HEMETOLOGY METHOD 09/15/2024 8:[address] [facility] MCHC 29.9(L) 32.0 - 37.0 g/dL LAB HEMETOLOGY METHOD 09/15/2024 8:[address] [facility] RDW 13.3 11.0 - 15.0 % LAB HEMETOLOGY METHOD 09/15/2024 8:[address] [facility] Platelets 245 130 - 400 K/mcL LAB HEMETOLOGY METHOD 09/15/2024 8:[address] [facility] MPV 9.5 7.0 - 11.0 FL LAB HEMETOLOGY METHOD 09/15/2024 8:[address] [facility] NRBC 0.0 <1.0 % LAB HEMETOLOGY METHOD 09/15/2024 8:[address] [facility] NRBC Absolute 0.00 <0.10 K/mcL LAB HEMETOLOGY METHOD 09/15/2024 8:[address] [facility] Neutrophils Relative 73.5 % LAB HEMETOLOGY METHOD 09/15/2024 8:[address] [facility] Lymphocytes Relative 14.3 % LAB HEMETOLOGY METHOD 09/15/2024 8:[address] [facility] Monocytes Relative 6.0 % LAB HEMETOLOGY METHOD 09/15/2024 8:[address] [facility] Eosinophils Relative 4.8 % LAB HEMETOLOGY METHOD 09/15/2024 8:[address] [facility] Basophils Relative 0.7 % LAB HEMETOLOGY METHOD 09/15/2024 8:[address] [facility] Immature Granulocytes Relative 0.7 % LAB HEMETOLOGY METHOD 09/15/2024 8:[address] [facility] Neutrophils Absolute 5.41 1.50 - 7.00 K/mcL LAB HEMETOLOGY METHOD 09/15/2024 8:[address] [facility] Lymphocytes Absolute 1.05 1.00 - 5.00 K/mcL LAB HEMETOLOGY METHOD 09/15/2024 8:[address] [facility] Monocytes Absolute 0.44 0.20 - 1.00 K/mcL LAB HEMETOLOGY METHOD 09/15/2024 8:[address] [facility] Eosinophils Absolute 0.35 0.00 - 0.50 K/mcL LAB HEMETOLOGY METHOD 09/15/2024 8:[address] [facility] Basophils Absolute 0.05 0.00 - 0.20 K/mcL LAB HEMETOLOGY METHOD 09/15/2024 8:[address] [facility] Immature Granulocytes Absolute 0.05(H) 0.00 - 0.03 K/mcL LAB HEMETOLOGY METHOD 09/15/2024 8:[address] [facility] Blood Venous blood specimen / Unknown Venipuncture / Unknown 09/15/2024 5:17 AM EST 09/15/2024 8:04 AM EST us Hal Cole MD LAB BLOOD ORDERABLES Final Resul t [facility] [address] [place] [address], * (ABNORMAL) Basic metabolic panel (09/15/2024 5:17 AM EST) Sodium 141 133 - 145 mmol/L LAB CHEMISTRY METHOD 09/15/2024 9:[address] [facility] Potassium 3.7 3.5 - 5.5 mmol/L LAB CHEMISTRY METHOD 09/15/2024 9:[address] [facility] Chloride 104 96 - 110 mmol/L LAB CHEMISTRY METHOD 09/15/2024 9:[address] [facility] CO2 32 21 - 32 mmol/L LAB CHEMISTRY METHOD 09/15/2024 9:[address] [facility] Anion Gap 5 3 - 11 LAB CHEMISTRY METHOD 09/15/2024 9:[address] [facility] Glucose 187(H) 70 - 100 mg/dL LAB CHEMISTRY METHOD 09/15/2024 9:[address] [facility] BUN 57(H) 5 - 25 mg/dL LAB CHEMISTRY METHOD 09/15/2024 9:[address] [facility] Creatinine 1.92(H) 0.50 - 1.10 mg/dL LAB CHEMISTRY METHOD 09/15/2024 9:[address] [facility] eGFR 27(L) >=60 mL/min/1. 73m2 LAB CHEMISTRY METHOD 09/15/2024 9:[address] [facility] Comment:Calculation based on the??Chronic Kidney Disease Epidemiology Collaboration (CKD-EPI) equation refit??without adjustment for race. BUN/Creatinine Ratio 29.7 LAB CHEMISTRY METHOD 09/15/2024 9:[address] [facility] Calcium 8.4(L) 8.5 - 10.5 mg/dL LAB CHEMISTRY METHOD 09/15/2024 9:[address] [facility] Blood Venous blood specimen / Unknown Venipuncture / Unknown 09/15/2024 5:17 AM EST 09/15/2024 8:04 AM EST us Hal Cole MD LAB BLOOD ORDERABLES Final Resul t [facility] [address] [place] [address], documented in this encounter Visit Diagnoses Diagnosis Chronic obstructive pulmonary disease, unspecified (CMS/HCC) documented in this encounter Care Teams House Director Relationship Specialty Start Date End Date Hal Cole MD [address] [place] [address], [phone] PCP - General Family Medicine 09/15/24 documented as of this encounter
--- OUTSIDE RECORDS SUMMARY | 2024-12-23 07:17 | XMS_ITS | Data Portability ---
Author Organization [facility], Main Office Address [address] [facility], [address] [place] [address] Care Team Providers Care Logistics Operations Manager Name Role Phone VALARIE JORDAN - 2ND FLOOR OTHER SHOBHA SMITH Primary Care Provider Assessment Encounter Date Assessment Date Assessment LastModified [...] By Organization Details Last Modified Time 09/06/2024 [id number] medicines to avoid with kidney disease: care instructions [email or web address] Not available 09/06/2024 14:42:44 09/08/2024 [id number] medicines to avoid with kidney disease: care instructions [email or web address] Not available 09/08/2024 13:56:49 Reason for Referral None Reported. Problems Name Problem SNOMED Code Status Onset Date Resolution Date Notes Provider Name and Address Organization Details Recorded Time Acute hypoxemic respirator y failure 551874807 Active 2023 ALLAN PRADHAN NP [address] [facility], [address], [place], [address], [facility] [employer] 4 10:51:05 Pneumonia 288579772 Active 2023 ALLAN PRADHAN NP [address] [facility], [address], [place], [address], [place] [employer] [facility] 4 10:51:21 Pleural effusion 85829254 Active 2023 ALLAN PRADHAN NP [address], [address], [place], [address], [employer] [facility] 4 10:51:43 Gastroesop hageal reflux disease without esophagiti s 529713299 Active 2023 ALLAN PRADHAN NP [address], [address], [place], [address], [employer] [facility] 4 10:53:46 Anxiety 74083696 Active 2023 ALLAN PRADHAN NP [address], [address], [place], [address], [employer] [facility] 4 11:00:09 Chronic kidney disease stage 3 115005862 Active 2023 ALLAN PRADHAN NP [address], [address], [place], [address], [employer] [facility] 4 11:21:29 Chronic pain syndrome 193645310 Active 2023 ALLAN PRADHAN NP [address], [address], [place], [address], [employer] [facility] 4 11:21:39 Acute nontraumat ic kidney injury 6569600158453 03 Active 2023 ALLAN PRADHAN NP [address], [address], [place], [address], [employer] [facility] 4 11:23:16 Left bundle branch block 37716967 Active 2023 ALLAN PRADHAN NP [address], [place], [address], [employer] [facility] 4 11:23:30 Pernicious anemia 67135780 Active 2023 ALLAN PRADHAN NP [address], [place], [address], [employer] [facility] 4 11:23:46 Obstructiv e sleep apnea syndrome 02919132 Active 2023 ALLAN PRADHAN NP [address], [address], [place], [address], [employer] [facility] 4 11:47:23 Open wound 311740494 Active 2023 sacral ALLAN PRADHAN NP [address], [place], [address], [employer] [facility] 4 12:05:33 Asthenia 78064179 Active 2023 ALLAN PRADHAN NP [address], [place], [address], [employer] [facility] 4 12:10:47 Diastolic heart failure 975375984 Active 2018 Hal Cole MD [address], [address], [place], [address], [employer] [facility] 9 14:45:31 Dysphagia 75111143 Active 2018 Hal Cole MD [address], [place], [address], [employer] 9 14:45:39 Chronic obstructiv e pulmonary disease 07429542 Active 2018 Hal Cole MD [address], [address], [place], [address], [employer] 9 14:45:48 Essential hypertensi on 77731471 Active 2018 Hal Cole MD [address], [address], [place], [address], [employer] [facility] 9 14:45:53 Diabetes mellitus 66662525 Active 2018 Hal Cole MD [address], [place], [address], [employer] [facility] 9 14:45:57 Hyperlipid emia 56150163 Active 2018 Hal Cole MD [address], [address], [place], [address], [employer] [facility] 9 14:46:04 Obesity 780134904 Active 2018 Hal Cole MD [address], [place], [address], [employer] 9 14:46:12 Hypothyroi dism 10866195 Active 2018 Hal Cole MD [address] [facility], [address], [place], [address], [employer] 9 14:50:40 Problem Notes None recorded. Medical Equipment None Reported. Allergies Allergen ID Allergen Name Allergen Category Reaction Reaction Severity Criticality Documentation Date Start Date Code Code System Note Provider Name and Address Organization Details Recorded Time 36911 ibuprofen medicatio n Not available Not available Not available 08/11/2024 5640 RxNorm swell ing Not Available Not Available Not Available 97998 codeine medicatio n Not available Not available [...] mm[Hg] 86 mm[Hg] ALLAN PRADHAN NP [address] [facility] [address], [place], [address] , [employer] 4 14:03:04 Date Recorded Heart rate Respiratory rate Body temperature Oxygen saturation Oxygen saturation in Arterial blood by Pulse oximetry Systolic blood pressure Diastolic blood pressure Provider Name and Address Organization Details Last Updated DateTime 4 74 /min 18 /min 99 [degF] 98 % 98 % 130 mm[Hg] 74 mm[Hg] ALLAN PRADHAN NP [address] [facility], [address], [place], [address] , [employer] 4 13:48:17 Date Recorded Body weight Heart rate Respiratory rate Body temperature Oxygen saturation Oxygen saturation in Arterial blood by Pulse oximetry Systolic blood pressure Diastolic blood pressure Provider Name and Address Organization Details Last Updated DateTime 4 96890.1 4 g 69 /min 16 /min 98.3 [degF] 97 % 97 % 134 mm[Hg] 64 mm[Hg] Eloina Odom NP [address] [facility] [address], [place], [address], [employer] 4 09:02:44 Date Recorded Body height Body mass index (BMI) Body weight Heart rate Respiratory rate Body temperature Oxygen saturation Oxygen saturation in Arterial blood by Pulse oximetry Inhaled oxygen flow rate Systolic blood pressure Diastolic blood pressure Provider Name and Address Organization Details Last Updated DateTime 4 167.64 cm 32.9 kg/m2 97355.1 3 g 72 /min 18 /min 97.5 [degF] 97 % 97 % 2 L/min 129 mm[Hg] 76 mm[Hg] Carlee Amezcua MD [address] [facility] [address], [place], [address], [employer] 4 22:10:41 Date Recorded Body height Body weight Body mass index (BMI) Heart rate Respiratory rate Body temperature Oxygen saturation Oxygen saturation in Arterial blood by Pulse oximetry Systolic blood pressure Diastolic blood pressure Provider Name and Address Organization Details Last Updated DateTime 4 167.64 cm 62037.2 5 g 32.8 kg/m2 74 /min 16 /min 97.9 [degF] 95 % 95 % 133 mm[Hg] 72 mm[Hg] Eloina Odom NP [address] [facility] [address], [place], [address], [employer] 4 08:16:49 Social History Question Answer Notes LastModified by Organizat ion Details LastModified Time Tobacco Smoking Status Former Smoker Not Available [employer] 08/21/2020 03:13:21 Do You Have An Advance Directive? No Full Code [id number] Information not available 08/21/2020 What Is Your Level Of Alcohol Consumption? None Information not available 08/11/2024 What Is Your Code Status? 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 08/11/2024 [email or web address] Information not available 08/11/2024 Do You Have An Out Of Hospital DNR? Yes [email or web address] Information not available 09/01/2024 How Much Tobacco Do You Smoke? 1.5 PPD [id number] Information not available 08/21/2020 Do You Use Any Illicit Or Recreational Drugs? No Information not available 08/11/2024 Has Tobacco Cessation Counseling Been Provided? No [email or web address] Information not available 08/11/2024 How Many Years Have You Smoked Tobacco? 25 [id number] Information not available 08/21/2020 Do You Or Have You Ever Used Any Other Forms Of Tobacco Or Nicotine? No [email or web address] Information not available 08/11/2024 Sex: Unknown Functional Status None recorded. Mental Status None recorded. Family History Relationship Description Onset Age of this Age Resolved Age Notes LastModified by Organization Details LastModified Time Father Disorder of cardiovascul ar system [email or web address] Not available 2023 11:24:15 Medical History No medical history recorded. Gynecological HistoryNo gynecological history recorded. Obstetrics History GPAL:G 0 P 0 0 0 0 Immunizations Vaccine Type Date Status Note Provider Nam e and Address Organization Details Recorded Time influenza, unspecified formulation 11/10/2021 completed Jessica gonsalez [place] - [facility] 08/10/2024 14:21:03 Past Encounters Encounter ID Performer Location Encounter Start Date Encounter Closed Date Diagnosis/Indication Diagnosis SNOMED-CT Code Diagnosis ICD10 Code Diagnosis Note [id number] MD ARMEN Urrutia [address] [place] [address] [place] [address] 06/01/2019 14:38:26 06/08/2019 15:41:33 Acute hypoxemic respiratory failure 479914310 J96.01 see HPIseconda ry to aspiration dx with dysphagiaC HF exacerbati on with recent dx of diastolic CHFmonitor respirator y functionto be scheduled for sleep study due to concern for OSAtitrate O2 in patient with baseline COPD Diastolic heart failure 609572371 I50.33 see HPIappears chronicall y ill due to multiple co-morbid conditions recent dx with diuresis of 18 liters at prior hospitaliz ationnow onlasix 40 mg bidmonitor weights and fluid statusmoni tor respirator y and renal functionti trate medication s prn Dysphagia 01262811 R13.1 2 see HPIeval by speechnow on ground mech soft dietrepeat speech eval prn Chronic ob structive pulmonary disease 89941960 J41.1 hx tobacco quit > 30 yrs priormonit or respirator y functionto be scheduled for sleep study with concern for OSApulmona ry consult prn Essential hypertension 05015338 I10 norvasc 5 mg qdlasix 40 mg bidmonitor bp and renal function Asthenia 45783221 R53.1 PT OT eval and treatmonit or fall risk Diabetes mellitus 609722 09 E11.9 hx of DMonmetfor min 1000 mg bid with 500 mg q noonglipiz nneka 5 mg bidinsulin SSmonitor blood glucose Hypothyroidism 67171598 E03.8 synthroid 200 mcg qdmonitor tsh prn Hyperlipidemia 39817722 E78.49 gemfibrozi l 600 mg bidlipitor 40 mg qd continue Obesity 137201440 E66.01 dietary eval at baseline [id number] [facility] [address] [place] [address] 06/06/2019 11:35:48 06/08/2019 16:08:53 Hypoxia 352737862 R09.02 send to ER for this d/t sat 50% on O2 with chest pain. Acute kidney injury 1466 9001 N17.9 likely d/t overdiures is. had been on lasix 40 bid, sending to ER, may need this held. Acute hypo xemic respiratory failure 515936406 J96.01 see HPIseconda ry to aspiration dx with dysphagiaC HF exacerbati on with recent dx of diastolic CHFmonitor respirator y functionto be scheduled for sleep study due to concern for OSAtitrate O2 in patient with baseline COPD Diastolic heart failure 602255519 I50.33 see HPIappears chronicall y ill due to multiple co-morbid conditions recent dx with diuresis of 18 liters at prior hospitaliz ationhere was on:lasix 40 mg bid*Now appearing dry- may need to hold diuretics at hospital. Dysphagia 31819373 R13.1 2 see HPIeval by speechnow on ground [facility] soft dietrepeat speech eval prn Chronic ob structive pulmonary disease 18332621 J41.1 hx tobacco quit > 30 yrs priorsendi ng to ER for hypoxia, chest pain, ARF [id number] ALLAN PRADHAN [facility] [address] [address] 08/11/2024 10:50:24 08/15/2024 09:32:52 Acute hypoxemic respiratory failure 032472656 J96.01 [place] related to COPD and acute on chronic CHF.Respon ded well to interventi ons in hosp.Chuck nue O2 @ 2L - chronic use.Contin ue inhalers for COPD, bumex for CHF.Monito r closely Chronic ob structive pulmonary disease 11898423 J41.1 Treated for exac. in hosp. with nebs and steroids with improvemen t.Continue O2 - uses 2L chronicall y at home.Chuck nue:duoneb prnalbuter ol MDI prn - at bedside for self administra tion.Monit or sats, resp. status for change. Pneumonia 883802710 J18. 9 Treated with ceftriaxon e and azithromyc in x 7 days with improvemen t, transition ed to Augmentin 875 mg bid x 3d and Doxy 100 mg bid x 3d upon d/c to complete a 10 day course of tx.Monitor resp. sx. Diastolic heart failure 964088723 I50.33 Treated with IV lasix in hosp., changed back to bumex 2 mg qd with improvemen t in condition. Continue bumexHeart healthy/lo w salt dietDaily VS and weightsLab s q mond. x 3Follow for decompensa tion Pleural effusion 2068351 8 J90 s/p thoracente sismonitor Diabetes mellitus 215971 09 E11.9 A1C 7.6%Contin ue home meds:basag lar 15 units qdjardianc e 10 mg qdlispro SSICarb control dietAdjust meds prn Essential hypertension 45077886 I10 Continue home meds:norva sc 10 mg qdbumex 2 mg qdMoniotor VS, labs, adjust meds prn Hyperlipidemia 40771421 E78.49 continue atorvastat in 40 mg qdgemfibro zil stopped due to interventi on with lipitor LF Ts WNRLipid panel if stays mcc Hypothyroidism 21261799 E03.8 Continue levothyrox ine 200 mcg qdTSH, FT4 prn Gastroesop hageal reflux disease without esophagitis 724952661 K21.9 ??started omeprazole 20 mg qd while in the hospitalmo nitor GI sx.conside r stopping in 6 wks. if no sx. Anxiety 81815395 F41.9 Continue home meds:cymba lta 20 mg qdativan 0.5 mg tid prn (x14d, then re-eval)Ps ych referral PRNMonitor mood, behaviors Chronic ki dney disease stage 3 436970723 N18.30 Monitor labs - BMP q mond. x 3Maintain hydrationA void nephrotoxi cs Chronic pain syndrome 37 1106348 G89.4 Continue:c ymbalta 20 mg qdoxycodon e 5 mg q8 hr prnPt. states chronic low back pain, knee pain, and sacral pain due to a fractured tailbone at 20 yrs. of age) Obstructiv e sleep apnea syndrome 34374459 G47.33 Per pt.Does not use CPAP, instead wears O2 2L RTC at home. Asthenia 64821859 R53.1 Deconditio rosana due to hospitaliz ation and chronic medical conditions .PT OT eval and tx.Goal is to return home. Open wound 064437422 T14 .8XXA Open wound sacral area - [...] with minerals dailyDieta ry supplement s per college athlete Concern of potential breakdown on heels as does not allow pillow under legs to float heels due to chronic sacral pain from old fracture. Can try heel boots if cyndi. to help reduce pressure as well as skin prep qd.Monitor closely. [id number] Hal Cole MD [address] [address] 08/15/2024 12:44:18 08/17/2024 11:09:33 Asthenia 28914291 R53.1 PT OT Eval and treatmonit or fall risk and need for increased support in community Acute hypo xemic respiratory failure 682255557 J96.01 see HPI due to CHF, COPD, pneumoniao n O2 at baselinemo nitor respirator y status and need to repeat imaging Chronic ob structive pulmonary disease 07297421 J44.1 On O2 at baselineco mpleted steroid coursecont inue outpatient medsmonito r respirator y status Pneumonia 846509192 J15. 8 see HPI now to complete doxy and augmentinm onitor need to reimage Diastolic heart failure 666085376 I50.33 required IV lasix in hospital now onbumex 2 mg qdmonitor respirator y and fluid statusnote d ARF on CRF Diabetes mellitus 698722 09 E11.9 continue out patient medsmonito r need to titrate Hyperlipidemia 56677644 E78.49 medication s adjusted in hospital now onlipitor 40 mg qd Hypothyroidism 73944150 E03.8 synthroid 200 mcg qdtsh prn Gastroesop hageal reflux disease without esophagitis 147871033 K21.9 recently started on PPImonitor need to continuetr ial off in 2-4 weeks Acute kidney injury 1466 9001 N17.8 ARF on CRFmonitor renal functionav oid nephrotoxi c meds as ablenephro consult prn [id number] ALLAN PRADHAN NP [address] [address] 08/16/2024 11:32:50 08/24/2024 10:16:43 Asthenia 61972096 R53.1 Deconditio rosana due to hospitaliz ation and chronic medical conditions .Continue PT OT eval and tx.Goal is to return home. Acute hypo xemic respiratory failure 328416885 J96.01 [place] related to COPD and acute on chronic CHF.Respon ded well to interventi ons in hosp.Chuck nue O2 @ 2L - chronic use.Contin ue inhalers for COPD, bumex for CHF.Monito r closely Chronic ob structive pulmonary disease 86832461 J41.1 Treated for exac. in hosp. with nebs and steroids with improvemen t.Continue O2 - uses 2L chronicall y at home.Chuck nue:duoneb prnalbuter ol MDI prn - at bedside for self administra tion.Monit or sats, resp. status for change. Pneumonia 713816614 J18. 9 Treated with ceftriaxon e and azithromyc in x 7 days with improvemen t, transition ed to Augmentin 875 mg bid x 3d and Doxy 100 mg bid x 3d upon d/c to complete a 10 day course of tx.Monitor resp. sx. Diastolic heart failure 419547853 I50.33 Treated with IV lasix in hosp., changed back to bumex 2 mg qd with improvemen t in condition. Continue bumexHeart healthy/lo w salt dietDaily VS and weights (reminded nursing of daily weights and record)Lab s q mond. x 3Follow for decompensa tion Pleural effusion 2167677 8 J90 s/p thoracente sismonitor Chronic ki dney disease stage 3 099779201 N18.30 Monitor labs - BMP q mond. x 3Maintain hydrationA void nephrotoxi cs Diabetes mellitus 287555 09 E11.9 A1C 7.6%BS mostly 100sContin ue home meds:basag lar 15 units qdjardianc e 10 mg qdlispro SSICarb control dietAdjust meds prn Essential hypertension 85607523 I10 Continue home meds:norva sc 10 mg qdbumex 2 mg qdMoniotor VS, labs, adjust meds prn Hyperlipidemia 53279326 E78.49 continue atorvastat in 40 mg qdgemfibro zil stopped due to interventi on with lipitor LF Ts WNRLipid panel if stays longwall foreman Hypothyroidism 85081910 E03.8 Continue levothyrox ine 200 mcg qdTSH, FT4 prn Gastroesop hageal reflux disease without esophagitis 758611066 K21.9 ??started omeprazole 20 mg qd while in the hospitalmo nitor GI sx.conside r stopping in 6 wks. if no sx. Anxiety 70183861 F41.9 Continue home meds:cymba lta 20 mg qdativan 0.5 mg tid prn (x14d, then re-eval)Ps ych referral PRNMonitor mood, behaviors Chronic pain syndrome 37 1520008 G89.4 Continue:c ymbalta 20 mg qdoxycodon e 5 mg q8 hr prnPt. states chronic low back pain, knee pain, and sacral pain due to a fractured tailbone at 20 yrs. of age) Obstructiv e sleep apnea syndrome 95678458 G47.33 Per pt.Does not use CPAP, instead wears O2 2L RTC at home. Open wound 247758619 T14 .8XXA Open wound sacral area - developed in hosp.Suspe ct started first as MASD due to chronic incontinen ce, now with opening in skin.Plan -Continue: Triad cream q shift and prnPressur e relief as much as possibleRe ferred to Wound PA-CMVI with minerals daily addedDieta ry supplement s per college athlete - currently on glucerna bid. Concern of potential breakdown on heels as does not allow pillow under legs to float heels due to chronic sacral pain from old fracture. Can try heel boots if cyndi. to help reduce pressure as well as skin prep qd.Monitor closely. [id number] ALLAN PRADHAN NP [facility] [address] [address] 08/23/2024 10:50:36 08/24/2024 10:28:22 Asthenia 82973757 R53.1 Deconditio rosana due to hospitaliz ation and chronic medical conditions .PT OT eval and tx., making gains.Goal is to return home. Acute hypo xemic respiratory failure 688811497 J96.01 [place] related to COPD and acute on chronic CHF.Respon ded well to interventi ons in hosp., currently stable.Con tinue O2 @ 2L - chronic use.Contin ue inhalers for COPD, bumex for CHF.Monito r closely Chronic ob structive pulmonary disease 29234580 J41.1 Treated for exac. in hosp. with nebs and steroids with improvemen t.Continue O2 - uses 2L chronicall y at home.Chuck nue:duoneb prnalbuter ol MDI prn - at bedside for self administra tion.Monit or sats, resp. status for change. Pneumonia 309546897 J18. 9 Treated with ceftriaxon e and azithromyc in x 7 days with improvemen t, transition ed to Augmentin 875 mg bid x 3d and Doxy 100 mg bid x 3d upon d/c to complete a 10 day course of tx.Resolvi ng, continue to monitor resp. sx. Diastolic heart failure 053579796 I50.33 Treated with IV lasix in hosp., changed back to bumex 2 mg qd with improvemen t in condition. Continue bumexHeart healthy/lo w salt dietDaily VS and weights (reminded nursing again of daily weights and record)Lab s q mond. x 3Follow for decompensa tion Pleural effusion 8625539 8 J90 s/p thoracente sismonitor Chronic ki dney disease stage 3 596528657 N18.30 Monitor labs - BMP q mond. x 2 more timesMaint ain hydrationA void nephrotoxi cs Diabetes mellitus 801814 09 E11.9 A1C 7.6%BS mostly 100sContin ue home meds:basag lar 15 units qdjardianc e 10 mg qdlispro SSICarb control dietAdjust meds prn Essential hypertension 91752022 I10 Continue home meds:norva sc 10 mg qdbumex 2 mg qdMoniotor VS, labs, adjust meds prn Hyperlipidemia 89684326 E78.49 continue atorvastat in 40 mg qdgemfibro zil stopped due to interventi on with lipitor LF Ts WNRLipid panel if stays mcc Hypothyroidism 86148935 E03.8 Continue levothyrox ine 200 mcg qdTSH, FT4 prn Gastroesop hageal reflux disease without esophagitis 718165255 K21.9 ??started omeprazole 20 mg qd while in the hospitalmo nitor GI sx.conside r stopping in 6 wks. if no sx. Anxiety 27839052 F41.9 Continue home meds:cymba lta 20 mg qdativan 0.5 mg tid prn (x14d, then re-eval)Ps [facility] referral PRNMonitor mood, behaviors Chronic pain syndrome 37 7226262 G89.4 Continue:c ymbalta 20 mg qdoxycodon e 5 mg q8 hr prnPt. states chronic low back pain, knee pain, and sacral pain due to a fractured tailbone at 20 yrs. of age) Obstructiv e sleep apnea syndrome 90245756 G47.33 Per pt.Does not use CPAP, instead wears O2 2L RTC at home. Open wound 175342374 T14 .8XXA Open wound sacral area - developed in hosp.Sus[place] ct started first as MASD due to chronic incontinen ce, now with opening in skin.Plan -Continue: Triad cream q shift and prnPressur e relief as much as possibleRe ferred to Wound PA-CMVI with minerals daily addedDieta ry supplement s per college athlete - currently on glucerna bid. Concern of potential breakdown on heels as does not allow pillow under legs to float heels due to chronic sacral pain from old fracture. Can try heel boots if cyndi. to help reduce pressure as well as skin prep qd.Monitor closely. Constipation 15593715 K5 9.00 discussed with VALENTIN, last BM 3 days ago.add miralax daily, start today.enco urage OOB, fiber, fluids [id number] ALLAN PRADHAN, CHIO [facility] [address] [address] 09/01/2024 12:36:05 09/02/2024 11:15:18 Asthenia 10939572 R53.1 Deconditio rosana due to hospitaliz ation and chronic medical conditions .PT OT eval and tx., making gains.Goal is to return home. Acute hypo xemic respiratory failure 514511702 J96.01 [place] related to COPD and acute on chronic CHF.Respon ded well to interventi ons in hosp., currently stable.Con tinue O2 @ 2L - chronic use.Contin ue inhalers for COPD, bumex for CHF.Monito r closely Chronic ob structive pulmonary disease 57767554 J41.1 Treated for exac. in hosp. with nebs and steroids with improvemen t.Continue O2 - uses 2L chronicall y at home.Chuck nue:duoneb prnalbuter ol MDI prn - at bedside for self administra tion.Monit or sats, resp. status for change. Pneumonia 710772846 J18. 9 Treated with ceftriaxon e and azithromyc in x 7 days with improvemen t, transition ed to Augmentin 875 mg bid x 3d and Doxy 100 mg bid x 3d upon d/c to complete a 10 day course of tx.Resolvi ng, continue to monitor resp. sx. Diastolic heart failure 209584004 I50.33 Treated with IV lasix in hosp., changed back to bumex 2 mg qd with improvemen t in condition. Continue bumexHeart healthy/lo w salt dietDaily VS and weights (reminded nursing AGAIN of daily weights and record)Lab s q mond. x 3Follow for decompensa tion Pleural effusion 1765856 8 J90 s/p thoracente sismonitor Chronic ki dney disease stage 3 779698727 N18.30 Monitor labs - BMP q mond. x 2 more timesMaint ain hydrationA void nephrotoxi cs Diabetes mellitus 777141 09 E11.9 A1C 7.6%BS mostly 100sContin ue home meds:basag lar 15 units qdjardianc e 10 mg qdlispro SSICarb control dietAdjust meds prn Essential hypertension 75225441 I10 Continue home meds:norva sc 10 mg qdbumex 2 mg qdMoniotor VS, labs, adjust meds prn Hyperlipidemia 04605990 E78.49 continue atorvastat in 40 mg qdgemfibro zil stopped due to interventi on with lipitor LF Ts WNRLipid panel if stays longwall foreman Hypothyroidism 41962228 E03.8 Continue levothyrox ine 200 mcg qdTSH, FT4 prn Gastroesop hageal reflux disease without esophagitis 477890025 K21.9 ??started omeprazole 20 mg qd while in the hospitalmo nitor GI sx.conside r stopping in 6 wks. if no sx. Anxiety 76671253 F41.9 Continue home meds:cymba lta 20 mg qdativan 0.5 mg tid prn (x14d, then re-eval)Ps h referral PRNMonitor mood, behaviors Chronic pain syndrome 37 6795230 G89.4 Continue:c ymbalta 20 mg qdoxycodon e 5 mg q8 hr prnPt. states chronic low back pain, knee pain, and sacral pain due to a fractured tailbone at 20 yrs. of age) Obstructiv e sleep apnea syndrome 78000124 G47.33 Per pt.Does not use CPAP, instead wears O2 2L RTC at home. Open wound 834994284 T14 .8XXA Open wound sacral area - developed in hosp.[place] ct started first as MASD due to chronic incontinen ce, now with opening in skin.Plan -Continue: Triad cream q shift and prnPressur e relief as much as possibleRe ferred to Wound PA-CMVI with minerals daily addedDieta ry supplement s per college athlete - currently on glucerna bid. Concern of potential breakdown on heels as does not allow pillow under legs to float heels due to chronic sacral pain from old fracture. Can try heel boots if cyndi. to help reduce pressure as well as skin prep qd.Monitor closely. Constipation 29443361 K5 9.00 Bowels still sluggishAl ready on miralax, now add senna-s 2 tabs daily, hold for loose stool.enco urage OOB, fiber, fluidsCont inue to monitor and adjust. [id number] ALLAN [facility]AD[facility]AN [facility] [address] 09/06/2024 14:01:29 09/07/2024 10:12:43 Asthenia 46564149 R53.1 Deconditio rosana due to hospitaliz ation and chronic medical conditions .PT OT eval and tx., making gains.Goal is to return home. Acute hypo xemic respiratory failure 595722506 J96.01 [place] related to COPD and acute on chronic CHF.Respon ded well to interventi ons in hosp., currently stable.Con tinue O2 @ 2L - chronic use.Contin ue inhalers for COPD, bumex for CHF.Monito r closely Chronic ob structive pulmonary disease 81585181 J41.1 Treated for exac. in hosp. with nebs and steroids with improvemen t.Continue O2 - uses 2L chronicall y at home.Chuck nue:duoneb prnalbuter ol MDI prn - at bedside for self administra tion.Monit or sats, resp. status for change. Pneumonia 130098567 J18. 9 Treated with ceftriaxon e and azithromyc in x 7 days with improvemen t, transition ed to Augmentin 875 mg bid x 3d and Doxy 100 mg bid x 3d upon d/c to complete a 10 day course of tx.Resolvi ng, continue to monitor resp. sx. Diastolic heart failure 849644759 I50.33 Treated with IV lasix in hosp., changed back to bumex 2 mg qd with improvemen t in condition. Continue bumexHeart healthy/lo w salt dietDaily VS and weights (reminded nursing AGAIN of daily weights and record)CBC , BMP in am x 1Follow for decompensa tion Pleural effusion 5655935 8 J90 s/p thoracente sismonitor Chronic ki dney disease stage 3 369139335 N18.30 Monitor labs - BMP x 1 in amMaintain hydrationA void nephrotoxi cs Diabetes mellitus 150776 09 E11.9 A1C 7.6%BS mostly 100s - 200sContin ue home meds:basag lar 15 units qdjardianc e 10 mg qdlispro SSICarb control dietAdjust meds prn Essential hypertension 88649154 I10 Continue home meds:norva sc 10 mg qdbumex 2 mg qdMoniotor VS, labs, adjust meds prn Hyperlipidemia 65717374 E78.49 continue atorvastat in 40 mg qdgemfibro zil stopped due to interventi on with lipitor LF Ts WNRLipid panel if stays mcc Hypothyroidism 02825889 E03.8 Continue levothyrox ine 200 mcg qdTSH, FT4 prn Gastroesop hageal reflux disease without esophagitis 143267951 K21.9 ??started omeprazole 20 mg qd while in the hospitalmo nitor GI sx.conside r stopping in 6 wks. if no sx. Anxiety 15000690 F41.9 Continue home meds:cymba lta 20 mg qdativan 0.5 mg tid prn (x14d, then re-eval)Ps h referral PRNMonitor mood, behaviors Chronic pain syndrome 37 9806917 G89.4 Continue:c ymbalta 20 mg qdoxycodon e 5 mg q8 hr prnPt. states chronic low back pain, knee pain, and sacral pain due to a fractured tailbone at 20 yrs. of age) Obstructiv e sleep apnea syndrome 82189111 G47.33 Per pt.Does not use CPAP, instead wears O2 2L RTC at home. Open wound 827224430 T14 .8XXA Open wound sacral area - developed in hosp.[place] ct started first as MASD due to chronic incontinen ce, now with opening in skin.Had been referred to Wound LIUDMILA in house, but has not been seen.Fortu nately the area is improving. Plan -Continue triad cream, cover with border foam dressing for comfort, change q od and prn.Pressu re relief as much as possibleMV I with minerals daily addedDieta ry supplement s per college athlete - currently on glucerna bid. Concern of potential breakdown on heels as does not allow pillow under legs to float heels due to chronic sacral pain from old fracture. Can try heel boots if cyndi. to help reduce pressure as well as skin prep qd.Monitor closely. Constipation 93691199 K5 9.00 No BM since 08/31 if documentat ion correct.NH N bowel meds not used.Curre ntly on miralax daily.[place] a-s 2 tabs bid ordered 09/01, currently not on MARAbdomen distended. Plan -Fleets nowMag Citrate 1/2 bottle today, repeat 1/2 bottle in am if poor results.In crease miralax to bidRe-orde r senna-s 2 tabs bid, hold for loose stoolMonit or closely.en courage OOB, fiber, fluidsCont inue to monitor and adjust. [id number] ALLAN PRADHAN NP [address] [address] 09/08/2024 13:47:32 09/09/2024 11:13:19 Constipation 85356151 K59.00 No BM since 08/31 if documentat ion correct.NH N bowel meds had not been utilized. Mag Citrate and fleets ordered with very good results. Now on:Miralax bidSenna-s 2 tabs bid Plan -Continue current laxativesE ncourage OOB, fiber, fluidsCont inue to monitor closely and adjust PRN Asthenia 46145753 R53.1 Deconditio rosana due to hospitaliz ation and chronic medical conditions .PT OT eval and tx., making gains.Goal is to return home. Open wound 961897373 T14 .8XXA Open wound sacral area - developed in hosp.[place] ct started first as MASD due to chronic incontinen ce, now with opening in skin.Had been referred to Wound PAZari in house, but has not been seen.Nadeen matthew the area is improving. Plan -Continue triad cream, cover with border foam dressing for comfort, change q od and prn.Pressu re relief as much as possibleMV I with minerals daily addedDieta ry supplement s per college athlete - currently on glucerna bid. Concern of potential breakdown on heels as does not allow pillow under legs to float heels due to chronic sacral pain from old fracture. Can try heel boots if cyndi. to help reduce pressure as well as skin prep qd.Monitor closely. Acute hypo xemic respiratory failure 103233497 J96.01 [place] related to COPD and acute on chronic CHF.Respon ded well to interventi ons in hosp., currently stable.Con tinue O2 @ 2L - chronic use.Contin ue inhalers for COPD, bumex for CHF.Monito r closely Chronic ob structive pulmonary disease 03500299 J41.1 Treated for exac. in hosp. with nebs and steroids with adamaris t.Continue O2 - uses 2L chronicall y at home.Chuck nue:duoneb prnalbuter ol MDI prn - at bedside for self administra tion.Monit or sats, resp. status for change. Pneumonia 081966575 J18. 9 Treated with ceftriaxon e and azithromyc in x 7 days with adamaris t, transition ed to Augmentin 875 mg bid x 3d and Doxy 100 mg bid x 3d upon d/c to complete a 10 day course of tx.Resolvi ng, continue to monitor resp. sx. Diastolic heart failure 648106911 I50.33 Treated with IV lasix in hosp., changed back to bumex 2 mg qd with adamaris t in condition. Continue bumexHeart healthy/lo w salt dietDaily VS and weights (reminded nursing AGAIN of daily weights and record)CBC , BMP in am x 1Follow for decompensa tion Pleural effusion 6218719 8 J90 s/p thoracente sismonitor Chronic ki dney disease stage 3 990885519 N18.30 Monitor labs - BMP x 1 in amMaintain hydrationA void nephrotoxi cs Diabetes mellitus 376615 09 E11.9 A1C 7.6%BS mostly 100s - 200sContin ue home meds:basag lar 15 units qdjardianc e 10 mg qdlispro SSICarb control dietAdjust meds prn Essential hypertension 20540715 I10 Continue home meds:norva sc 10 mg qdbumex 2 mg qdMoniotor VS, labs, adjust meds prn Hyperlipidemia 94787760 E78.49 continue atorvastat in 40 mg qdgemfibro zil stopped due to interventi on with lipitor LF Ts WNRLipid panel if stays mcc Hypothyroidism 96955790 E03.8 Continue levothyrox ine 200 mcg qdTSH, FT4 prn Gastroesop hageal reflux disease without esophagitis 770143798 K21.9 ??started omeprazole 20 mg qd while in the hospitalmo nitor GI sx.conside r stopping in 6 wks. if no sx. Anxiety 44677282 F41.9 Continue home meds:cymba lta 20 mg qdativan 0.5 mg tid prn (x14d, then re-eval)Ps ych referral PRNMonitor mood, behaviors Chronic pain syndrome 37 4878244 G89.4 Continue:c ymbalta 20 mg qdoxycodon e 5 mg q8 hr prnPt. states chronic low back pain, knee pain, and sacral pain due to a fractured tailbone at 20 yrs. of age) Obstructiv e sleep apnea syndrome 16673363 G47.33 Per pt.Does not use CPAP, instead wears O2 2L RTC at home. [id number] [facility]dom [facility] [address] 09/14/2024 09:01:39 09/15/2024 09:07:05 Constipation 51099252 K59.00 resolvedMa g Citrate and fleets ordered with very good results.Miralax daily09/14 change Senna-s 2 tabs from bid to dailyEncou rage OOB, fiber, fluidsCont inue to monitor closely and adjust PRN Asthenia 32366519 R53.1 Deconditio rosana due to hospitaliz ation and chronic medical conditions .PT OT eval and tx., making gains.Goal is to return home. Open wound 707348840 T14 .8XXA Open wound sacral area - [...] with minerals dailyDieta ry supplement s per college athlete - currently on glucerna bid. Concern of potential breakdown on heels as does not allow pillow under legs to float heels due to chronic sacral pain from old fracture. Can try heel boots if cyndi. to help reduce pressure as well as skin prep qd.Monitor closely. Acute hypo xemic respiratory failure 408286171 J96.01 [place] related to COPD and acute on chronic CHF.Respon ded well to interventi ons in hosp., currently stable.Con tinue O2 @ 2L - chronic use.Contin ue inhalers for COPD, bumex for CHF.Monito r closely Chronic ob structive pulmonary disease 65676493 J41.1 Treated for exac. in hosp. with nebs and steroids with adamaris wright.Continue O2 - uses 2L chronicall y at home.Chuck nue:duoneb prnalbuter ol MDI prn - at bedside for self administra tion.Monit or sats, resp. status for change. Pneumonia 971581342 J18. 9 resolvedTr eated with ceftriaxon e and azithromyc in x 7 days with adamaris wright, transition ed to Augmentin 875 mg bid x 3d and Doxy 100 mg bid x 3d upon d/c to complete a 10 day course of tx.Resolvi ng, continue to monitor resp. sx.monitor for need to repeat cxr if resp symptoms persist/re turn Diastolic heart failure 227302460 I50.33 Treated with IV lasix in hosp.,harding gethien back to bumex 2 mg qd with adamaris wright in condition. Heart healthy/lo w salt dietDaily VS and weightspt currently 218, will need another weight(8 lb increase since admit)nsg awareFollo w for decompensa tionmonito rbmp and cbc maggi 09/15 Pleural effusion 7099305 8 J90 stable without increased work of breathings /p thoracente sis from hospmonito r Chronic ki dney disease stage 3 478369159 N18.30 bmp and cbc as above, monitor need to continueMa intain hydrationA void nephrotoxi cs Diabetes mellitus 638415 09 E11.9 A1C 7.6%BS mostly 100s - 200sContin ue :basaglar 15 units qdjardianc e 10 mg qdlispro SSICarb control dietAdjust meds prn Essential hypertension 67195405 I10 Continue:n orvasc 10 mg qdbumex 2 mg qdMoniotor VS, labs, adjust meds prn Hyperlipidemia 42886906 E78.49 continueat orvastatin 40 mg qdgemfibro zil stopped due to interventi on with lipitor LF Ts WNRLipid panel 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 started while in the hospital)m onitor GI sx.conside r stopping in 6 wks. if no sx. Anxiety 18839639 F41.9 Continue :cymbalta 20 mg qdativan 0.5 mg tid prn (x14d, then re-eval)ev al on sych referral PRNMonitor mood, behaviors Chronic pain syndrome 37 8922183 G89.4 Continue:c ymbalta 20 mg qdoxycodon e 5 mg q8 hr prnPt. states chronic low back pain, knee pain, and sacral pain due to a fractured tailbone at 20 yrs. of age) Obstructiv e sleep apnea syndrome 16235193 G47.33 Per pt.Does not use CPAP, instead wears O2 2L RTC at home. [id number] Carlee Amezcua MD [facility] [address] [address] 09/27/2024 20:05:35 09/28/2024 10:42:39 Diastolic heart failure 696153930 I50.33 Appears euvolemic. Last wt on 09/24 was down 5# from previous wt.Daily wts have been ordered 4 times and not being done.Wts ordered for M/W/FConti nue Bumex 2 mg qd.Monitor resp. status, fluid status, wts and labs. Asthenia 83268408 R53.1 Improved back to baseline per pt.Unclear if rehab agrees.Molina villareal have SS consult with rehab and pt tomorrow to see if ready for d/c. Open wound 200682023 T14 .8XXA Resolved.C ontinue good skin care to prevent reopening. Acute hypo xemic respiratory failure 186340896 J96.01 Resolved.A s above. Chronic ob structive pulmonary disease 00147297 J41.1 Back to baseline per pt.Continu e atrovent 2 puffs q 6 hrs prn.Contin ue supplement al O2 titrated to sats >90%Monito r resp status. Pleural effusion 1779242 8 J90 Thought to be due to PNA and CHF.Txed with abxs and thoracente sis.No f/u needed unless increased sxs.Monito r resp status Chronic ki dney disease stage 3 532658003 N18.32 Back to baseline.C ontinue to avoid nephrotoxi c meds as able.Monit or labs.Renal consult prn. Diabetes mellitus 631573 09 E11.9 Sugars in adequate control.Co ntinue basaglar 15 units qd, jardiance 10 mg qd and SSIMonitor fingerstic ks TID and HgA1C q 3 months. Essential hypertension 36270955 I10 In good control since here.Chuck nue amlodipine 10 mg qd and bumex 2 mg qdMonitor BP and labs. Hyperlipidemia 63254202 E78.49 Continue atorvastat in 40 mg qdMonitor labs as outpt Hypothyroidism 33054544 E03.8 Continue levothyrox ine 200 mcg qdI can't find a TSH in [facility] [place] [facility] systems.Wi ll order for AM Gastroesop hageal reflux disease without esophagitis 410405399 K21.9 No current sxs.Contin ue omeprazole 20 mg qdMonitor GI sx. Pneumonia 115900988 J18. 9 Resolved Anxiety 31546073 F41.1 Mood good tonight.Co ntinue Cymbalta 20 mg qd and lorazepam 0.5 mg TID prn.Monito r mood.Psych following. Chronic pain syndrome 37 2749775 G89.4 Continue meds as above and oxycodone 5 mg q 8 hrs prn and APAP 650 mg q 4 hrs prn.Monito r sxs. Obstructiv e sleep apnea syndrome 24062134 G47.33 Not on CPAP.F/U as outpt. [id number] Eloina Odom NP [facility] [address] [place] [place] [address] 09/30/2024 08:15:34 10/03/2024 13:20:59 Diastolic heart failure 925803035 I50.33 Appears euvolemic. weight 203 on 09/24 last, down approx 5 lbs hereweight daily at homeContin ue Bumex 2 mg qd.Monitor resp. status, fluid status, at home with services and pcp outpt Asthenia 90255531 R53.1 Improved back to baseline per pt.Unclear if rehab agrees but pt insistent on going home.Pt able to walk approx 75 feet with walker and at baseline prior to hospitaliz ationmonit or with pcp outpt Chronic ob structive pulmonary disease 03140925 J41.1 Back to baseline per pt.Continu e atrovent 2 puffs q 6 hrs prn.Contin ue supplement al O2 2at liters baseline and titrated to sats >90%Monito r resp status outpt with pcp and services Pleural effusion 4363046 8 J90 Thought to be due to PNA and CHF.Txed with abxs and thoracente sis.No f/u needed unless increased sxs.Monito r resp status outpt with pcp Acute hypo xemic respiratory failure 704576734 J96.01 Resolved.A s above. Chronic ki dney disease stage 3 532173165 N18.32 Back to baseline. cr 1.5-1.9Con tinue to avoid nephrotoxi c meds as able.Monit or labs outpt with pcpRenal consult prn outpt Diabetes mellitus 769508 09 E11.9 Sugars in adequate control.mo stly 100-200sCo ntinue basaglar 15 units qd, jardiance 10 mg qd and SSIMonitor fingerstic ks TID and HgA1C q 3 months with pcp outpt Essential hypertension 48238924 I10 In good control since here.Chuck nue amlodipine 10 mg qd and bumex 2 mg qdMonitor BP and labs outpt with pcp prn Hyperlipidemia 07948888 E78.49 Continue atorvastat in 40 mg qdMonitor outpt with pcp Open wound 246160802 T14 .8XXA Resolved.C ontinue good skin care to prevent reopening. Hypothyroidism 36898515 E03.8 Continue levothyrox ine 200 mcg qdmonitor oupt with pcp Gastroesop hageal reflux disease without esophagitis 028867435 K21.9 No current sxs.Contin ue omeprazole 20 mg qdMonitor GI sx. outpt with pcp Pneumonia 322787611 J18. 9 Resolved Anxiety 63013845 F41.1 Mood good tonight.Co ntinue Cymbalta 20 mg qd and lorazepam 0.5 mg TID prn.Monito r mood outpt with pcp Chronic pain syndrome 37 5533574 G89.4 Continue meds as above and oxycodone 5 mg q 8 hrs prn and APAP 650 mg q 4 hrs prn.Monito r sxs. outpt with pcp Obstructiv e sleep apnea syndrome 44415347 G47.33 Not on CPAP.F/U as outpt Health Concerns Section Related Observation LastModified by Organization Detai ls LastModified Time None Recorded Concern Status LastModified by Organization Details LastModified Time None Recorded Advance Directives Directive N: Full Code Payers Encounter Date Sequence Insurance Name Policy Number Policy Tidwell Covered Member ID [place] Member ID Guarantor Name 09/06/2024 1 [place] [employer] Radhika Vaca [id number] Radhika Vaca 09/06/2024 2 [place] [facility] Radhika Vaca [id number] Radhika Vaca 09/08/2024 1 [place] [employer] Radhika Vaca [id number] Radhika Vaca 09/08/2024 2 [place] [facility] Radhika Vaca [id number] Radhika Vaca 09/14/2024 1 [place] [employer] Radhika Vaca [id number] Radhika Vaca 09/14/2024 2 [place] [facility] Radhika Vaca [id number] Radhika Vaca 09/27/2024 1 [place] [facility] Radhika Vaca [id number] Radhika Vaca 09/27/2024 2 [place] [facility] Radhika Vaca [id number] Radhika Vaca 09/30/2024 1 [place] [facility] Radhika Vaca [id number] Radhika Vaca 09/30/2024 2 [place] [facility] Radhika Vaca [id number] Radhika Vaca Notes Date Note Type Note Provider Name and Address Organization Details Recorded Time 09/06/2024 text/html Radhika is seen today for a routine, 30 day visit. She is a 78 yo lady, admitted to [facility] 08/09/24 from [facility] for continued care [...] O2 use.Full code ALLAN PRADHAN NP [address], [address], [place], [address], [facility] 09/06/2024 15:00:32 09/08/2024 text/html Radhika is seen today for an acute visit. She is a 78 yo lady, admitted to [facility] 08/09/24 from [facility] for continued care [...] O2 use.Full code ALLAN PRADHAN NP [address], [address], [place], [address], [facility] 09/08/2024 13:56:51 09/14/2024 text/html Radhika is seen today for an acute rounding visit. PMH: anxiety, CKD3, COPD, chronic pain, DM, CHF, dysphagia, HTN, HLD, hypothyroid, LBBB, morbid obesity, pernicious anemia, TEZ, chronic O2 use.Full code She is a 78 yo lady, admitted to [facility] 08/09/24 from [facility] for continued care and rehab after a a brief hosp. due to resp. failure (COPD, PNA, CHF) and MARJORIE on CKD (cardiorenal syndrome). Also developed a sacral wound during admission. While here at [facility]:Radhika is doing well and working with [...] mod. fall risk Eloina Odom, [facility] [address], [address], [place], [address], [facility] [employer] 09/14/2024 09:44:48 09/27/2024 text/html This is a [...] anemia, LBBB, and TEZ. Carlee Amezcua MD [address], [address], [place], [address], [facility] - [employer] 09/28/2024 02:15:34 09/30/2024 text/html Pt is a [...] transferred here for STR. Since here at [facility]: She had a sacral wound [...] home with o2. She is aware social media marketing specialist is working on a plan and she will follow with pcp outpt. Breathing non labored. Eloina Odom, [facility] [address], [address], [place], [address], [facility] - [facility] 09/30/2024 08:56:26 OBGyn Episode No OBEpisode recorded.
--- NOTE | 2024-12-23 09:46 | PC.NURSE ---
Report given to EMS
== END 2024-12-23 09:47 | disposition home or self-care (01) ==
PROVIDERS: Emergency Provider Emergency Medicine; PCP Internal Medicine
DX: T83.9XXA Unspecified complication of genitourinary prosthetic device, implant and graft, initial encounter (principal); Y84.6 Urinary catheterization as the cause of abnormal reaction of the patient, or of later complication, without mention of misadventure at the time of the procedure; Y73.8 Miscellaneous gastroenterology and urology devices associated with adverse incidents, not elsewhere classified; Y92.89 Other specified places as the place of occurrence of the external cause; Z79.899 Other long term (current) drug therapy; Z87.891 Personal history of nicotine dependence
CPT/HCPCS: 99283

== ENCOUNTER 2025-01-03 14:38 | Emergency (ER) | payer MEDICARE, MEDICAID, SELFPAY ==
--- NOTE | 2025-01-03 14:55 | ED.GENADULT ---
HPI - General Adult General Chief complaint: Urogenital-Female Stated complaint: catheter leaking Time Seen by Provider: 01/03/25 14:52 Source: patient, EMS, RN notes reviewed and old records reviewed Mode of arrival: EMS Limitations: no limitations History of Present Illness ED Provider: Mayte HPI narrative: Patient is a 79-year-old female with history of COPD, CHF, DM, hypothyroidism, HTN, urinary retention with chronic indwelling urinary catheter, CKD presenting to the emergency department stating that she is leaking urine around her indwelling catheter. States that her son accidentally stepped on her catheter tubing 4 hours prior to arrival she has been leaking urine since that time. Denies any abdominal, flank, or back pain. Denies fevers. MD complaint: catheter leaking Onset (ago): hour(s) Associated symptoms: denies other symptoms Related Data Home Medications ?Medication ?Instructions ?Recorded ?Confirmed levothyroxine 200 mcg tablet 200 mcg PO DAILY@0600 06/19/24 11/07/24 oxycodone 5 mg tablet 5 mg PO BID PRN Pain, Severe (Pain 10/27/24 11/07/24 Scale 7-10) Previous Rx's ?Medication ?Instructions ?Recorded insulin syringe-needle U-100 0.5 #100 ea 07/29/23 mL 31 gauge x 5/16 (BD Insulin Syringe Ultra-Fine) pen needle, diabetic 31 gauge x #100 ea 07/29/23 5/16 (1st Tier Unifine Pentips) lorazepam 0.5 mg tablet 0.5 mg PO TID PRN anxiety 30 days 04/04/24 #90 tabs duloxetine 20 mg capsule,delayed 20 mg PO DAILY 90 days #90 caps 05/14/24 release (Cymbalta) atorvastatin 40 mg tablet 40 mg PO BEDTIME 90 days #90 tabs 06/19/24 blood sugar diagnostic (Accu-Chek #100 ea 07/26/24 Odilia Plus test strips) empagliflozin 10 mg tablet 10 mg PO DAILY #90 tabs 07/26/24 (Jardiance) nystatin 100,000 unit/gram topical 1 appl topical BID #30 grams 08/09/24 powder ipratropium 0.5 mg-albuterol 3 mg 3 ml inhalation Q4H PRN shortness 10/16/24 (2.5 mg base)/3 mL nebulization of breath or wheezing #90 mL soln bumetanide 1 mg tablet 1 mg PO DAILY #90 tabs 11/03/24 cefuroxime axetil 250 mg tablet 250 mg PO Q12H #18 tabs 11/03/24 blood sugar diagnostic (Accu-Chek #100 ea 11/08/24 Guide test strips) lancets (Accu-Chek Softclix #100 ea 11/08/24 Lancets) insulin glargine 100 unit/mL (3 25 unit (0.25 mL) subcut BEDTIME 12/23/24 mL) subcutaneous pen (Basaglar 30 days #7.5 mL KwikPen U-100 Insulin) albuterol sulfate 90 mcg/actuation 2 puff inhalation Q6H PRN 01/02/25 aerosol inhaler (Ventolin HFA) shortness of breath or wheezing 30 days #8.5 grams cefuroxime axetil 500 mg tablet 500 mg PO BID #13 tabs 01/03/25 Allergies Allergy/AdvReac Type Severity Reaction Status Date / Time ibuprofen [From Motrin] Allergy Unknown swelling Verified 01/03/25 14:59 codeine [CODEINE] AdvReac Unknown SLEEPY Verified 12/23/24 06:17 Review of Systems Review of Systems: As per HPI Yes all other systems are reviewed and are negative Constitutional: Constitutional: Reports as per HPI PMFSH Past Medical History Medical History Anemia Herpes zoster MARJORIE (acute kidney injury) Left bundle branch block Morbid obesity Chronic pain syndrome Anxiety Pernicious anemia COPD (chronic obstructive pulmonary disease) CHF (congestive heart failure) Hypothyroidism Essential hypertension Diabetes mellitus Pure hypercholesterolemia Surgical History H/O left knee surgery Deficient knowledge of leg surgery History of tonsillectomy and adenoidectomy History of appendectomy Family History Family History Father CVD (cardiovascular disease) Mother No problems noted. Family/Other FH: mental illness Social History Social History Household Members: Children Housing: Apartment Do you presently have visiting nurse or other home services: No Alcohol intake: unknown Patient Tobacco Use Status: Former Tobacco user Tobacco use type: Cigarette Smoked in Last 30 Days: No e-Cigarette/Vaping Use: Never Used Second Hand Smoke Exposure: No Use of substances other than those prescribed or required for medical reasons: No Advance Directives: Yes Advance Directives on File: Yes Advance Directives Date on File: 06/24/24 service: No Current occupational status: disabled Cognitive needs: Yes Hearing needs: No Vision needs: No Physical Exam ED Vital Signs: Vital Signs - 24 hr 01/03/25 14:58 Temperature 97.5 F Pulse Rate 61 Respiratory Rate 18 Blood Pressure 156/84 H Pulse Oximetry 97 Oxygen Delivery Method Nasal Cannula BMI result Body Mass Index 41.6 Vital signs have been reviewed and appear to be correct. Blood pressure normal. Heart rate normal. Respiratory rate normal. Temperature normal. Oxygen saturation normal. Const General: no acute distress, ill appearing chronically and poor hygiene Nutritional Appearance: obese Orientation/consciousness: oriented to person, oriented to place, oriented to time and patient oriented x3 Limitations: no limitations and physical limitations HENMT Head: Yes normocephalic and Yes atraumatic Ears: external ears normal General nose exam: Normal external nose present Face and sinus: Yes face symmetric Mouth: oropharynx normal and moist mucous membranes Throat: Yes uvula midline Eyes Pupils: Equal, round and reactive pupils present Neck Neck: Yes normal visual inspection and Yes supple Resp Effort & Inspection: normal respiratory effort and able to speak in complete sentences Auscultation: clear to auscultation bilaterally Cardio Rate: regular rate Rhythm: regular rhythm Heart sounds: S1 normal heart sound present and S2 normal heart sound present GI Palpation (GI): Soft to palpation and nontender Auscultation: normoactive bowel sounds Other: indwelling urinary catheter in place on arrival to ED General: Yes no CVA tenderness Back/Spine/Pelvis Back: no CVA tenderness Skin Other: chronic sacral wound with dressing in place on arrival General skin exam: elasticity normal and turgor normal Neuro General: oriented to person, oriented to place, oriented to time, patient oriented x3, moves all extremities, no focal motor deficits and CN's II-XI intact bilaterally Cranial nerves: Yes Equal, round and reactive pupils present Cognition (Neuro): normal cognition Extrem General: Yes full ROM, Yes no pedal edema and Yes no calf tenderness Psych Mental Status: mental status grossly normal Affect: normal affect Thought process: Normal thought process present Medications Administered Discontinued Medications Generic Name Dose Route Start Last Admin Trade Name Robert PRN Reason Stop Dose Admin Albuterol Sulfate 4 puff 01/03/25 16:05 01/03/25 16:25 Albuterol Sulfate 90 Mcg 8 Gm Inhaler INHALE 01/03/25 16:06 4 puff ONCE ONE Administration Medical Decision Making Medical Decision Making [facility] Narrative: Patient is a 79-year-old female with history of COPD, CHF, DM, hypothyroidism, HTN, urinary retention with chronic indwelling urinary catheter, CKD presenting to the emergency department stating that she is leaking urine around her indwelling catheter. On exam patient is awake, A+Ox3, BP elevated, VS otherwise WNL, afebrile, normal neurological exam without focal deficits, physical exam findings as above. Given reported symptoms and physical exam findings, initial differential includes but is not limited to malfunctioning urinary catheter, UTI. Urine noted to be leaking around catheter on physical exam. Indwelling catheter removed and replaced by RN. UA notable for 2+ leukocytes, positive nitrites, 2+ blood, greater than 50 wbc's, 4+ bacteria. Will treat for UTI at this time with cefuroxime. Patient is stable for discharge home, advised to follow up with PCP. Return precautions discussed. Patient verbalized understanding of and agreement with plan. Differential Diagnosis Differential Diagnoses: The differential diagnosis associated with the presentation includes As per [facility] Lab Data [facility] Lab Attestation statement: I reviewed the patient's lab results. As per [facility] Labs: Lab Results 01/03/25 Range/Units 16:29 Urine Color Yellow Urine Appearance Cloudy Urine pH 5.5 (5.0-9.0) Ur Specific Harriet 1.015 (1.005-1.025) Urine Protein 300 (3+) H (Neg-Trace) mg/dL Urine Glucose (UA) >=1000 H (Negative) mg/dL Urine Ketones Negative (Negative) mg/dL Urine Blood Moderate (2+) H (Negative) Urine Nitrite Positive H (Negative) Ur Leukocyte Esterase Moderate (2+) H (Negative) External Record Review External record reviewed: Inpatient record, Office record and Outpatient record Prescription Management I considered prescription management with: Antibiotic Discharge Plan Discharge Clinical Impression: Urinary tract infection, Urinary catheter dysfunction Patient Disposition: Home, Self-Care Instructions: Catheter-associated Urinary Tract Infection (ED), Urinary Tract Infection in Older Adults (ED) Additional Instructions: You were evaluated in the emergency department today for urinary catheter dysfunction. You previous catheter was removed and a new catheter was placed. Your urine appears infected and you are being treated with a course of antibiotics. Follow up with your primary care provider this week. Return to the emergency department if you develop fever, abdominal pain, back or flank pain, or have any other new or concerning symptoms. Prescriptions: New cefuroxime axetil 500 mg tablet 500 mg PO BID Qty: 13 0RF No Action (DME) insulin syringe-needle U-100 [BD Insulin Syringe Ultra-Fine] 0.5 mL 31 gauge x 5/16 syringe See Rx Instructions .Route Qty: 100 3RF Rx Instructions: Use 1 needle once a day (DME) pen needle, diabetic [1st Tier Unifine Pentips] 31 gauge x 5/16 needle See Rx Instructions .Route Qty: 100 4RF Rx Instructions: Use 1 pen needle once a day lorazepam 0.5 mg tablet 0.5 mg PO TID PRN (Reason: anxiety) 30 Days Qty: 90 0RF Rx Instructions: coverage for Ranjith Austin duloxetine [Cymbalta] 20 mg capsule,delayed release(DR/EC) 20 mg PO DAILY 90 Days Qty: 90 0RF atorvastatin 40 mg tablet 40 mg PO BEDTIME 90 Days Qty: 90 3RF Jardiance 10 mg tablet 10 mg PO DAILY Qty: 90 1RF (DME) Accu-Chek Odilia Plus test strp Strip See Rx Instructions .Route Qty: 100 1RF Rx Instructions: Use 1 test strip once a day ipratropium-albuterol 0.5 mg-3 mg(2.5 mg base)/3 mL solution for nebulization 3 ml inhalation Q4H PRN (Reason: shortness of breath or wheezing) Qty: 90 0RF (DME) Accu-Chek Guide test strips Strip See Rx Instructions .Route Qty: 100 3RF Rx Instructions: Use 1 test strip once a day (DME) lancets [Accu-Chek Softclix Lancets] Misc See Rx Instructions .Route Qty: 100 3RF Rx Instructions: Use 1 lancet once a day insulin glargine [Basaglar KwikPen U-100 Insulin] 100 unit/mL (3 mL) insulin pen 25 unit subcut BEDTIME 30 Days Qty: 7.5 0RF albuterol sulfate [Ventolin HFA] 90 mcg/actuation HFA aerosol inhaler 2 puff inhalation Q6H PRN (Reason: shortness of breath or wheezing) 30 Days Qty: 8.5 0RF oxycodone 5 mg tablet 5 mg PO BID PRN (Reason: Pain, Severe (Pain Scale 7-10)) Rx Instructions: Partial Fill upon patient request. bumetanide 1 mg tablet 1 mg PO DAILY Qty: 90 1RF Protocol: Hold for SBP< HOLD for SBP < : 90 cefuroxime axetil 250 mg tablet 250 mg PO Q12H Qty: 18 0RF levothyroxine 200 mcg tablet 200 mcg PO DAILY@0600 nystatin 100,000 unit/gram Powder 1 appl topical BID Qty: 30 0RF Protocol: Apply to: Apply to: Groin Print Language: Wallisian
[2025-01-03 14:58] VITALS: BP 156/84; PULSE 61; RESP 18; TEMP 36.4; O2SAT 97; BMI 41.6
[2025-01-03] MEDS: Albuterol Sulfate 90 MCG 8 GM INHALER 4 PUFF INHALE (16:25)
[2025-01-03 16:46] LABS: Appearance Urine Cloudy; Color Urine Yellow; Glucose Urine UA >=1000 mg/dL (Negative); Leukocyte Esterase Urine Moderate (2+) (Negative); Nitrite Urine Positive (Negative); PH 5.5 (5.0-9.0); Specific Gravity - Urine 1.015 (1.005-1.025); UMIC TRIGGER UACC YES; Urine Blood Moderate (2+) (Negative); Urine Ketones Negative (Negative); Urine Protein 300 (3+) mg/dL (Neg-Trace)
[2025-01-03 16:53] LABS: Bacteria Urine 4+ (None Seen); Squamous Epithelial Cell Urine 0-2 /HPF (0-2); UACC Culture Trigger YES; WBC Urine >50 /HPF (0-5)
[2025-01-03 17:21] VITALS: BP 127/54; PULSE 56; RESP 18; O2SAT 99
[2025-01-03] MEDS: cefuroxime axetiL 500 MG TABLET PO (18:13)
[2025-01-03 18:18] VITALS: BP 138/64; PULSE 58; RESP 16; TEMP 36.6; O2SAT 98
--- NOTE | 2025-01-03 18:20 | PC.NURSE ---
Son Robbie called and notified @ #[phone] to wait for mom and open the door at pt's home.
[2025-01-03 18:30] VITALS: BP 138/64; PULSE 58; RESP 16; TEMP 36.6; O2SAT 98
--- OUTSIDE RECORDS SUMMARY | 2025-01-03 18:34 | XMS_ITS | Encounter Summary ---
Author Organization [employer] Address [address] [place] [address] Care Team Providers Care Keyboard Teacher Name Role Phone Hal Cole MD Primary Care Provider [phone] Encounter Details Date Type Department Care Team (Late st Contact Info) Description 09/28/2024 Lab Requisition [facility] - Main Lab [address] [facility] [place] [address] Hal Cole MD [address] [place] [address], [phone] Essential (primary) hypertension; Chronic obstructive pulmonary [...] LAB CHEMISTRY METHOD 09/28/2024 1:08 PM EST [facility] Blood Venous blood specimen / Unknown Venipuncture / Unknown 09/28/2024 7:04 AM EST 09/28/2024 11:03 AM EST Hal Cole MD LAB BLOOD ORDERABLES Final Resul t Performing Organization Address [facility]/ZIP Co de Phone Number [facility] [address] [place] [address], [place] [phone] * Free thyroxine with reflex to free triiodothyronine (09/28/2024 7:04 AM EST) Free T4 0.88 0.70 - 1.80 ng/dL LAB CHEMISTRY METHOD 09/28/2024 12:41 PM EST [facility] Blood Venous blood specimen / Unknown Venipuncture / Unknown 09/28/2024 7:04 AM EST 09/28/2024 11:03 AM EST Hal Cole MD LAB BLOOD ORDERABLES Final Resul t Performing Organization Address City/[facility]/ZIP Co de Phone Number [facility] [address] [place] [address], [place] [phone] * (ABNORMAL) Thyroid stimulating hormone with reflex to free t4 and free t3 (09/28/2024 7:04 AM EST) TSH 50.98(H) 0.40 - 4.00 mcIU/mL LAB CHEMISTRY METHOD 09/28/2024 12:15 PM [facility] Blood Venous blood specimen / Unknown Venipuncture / Unknown 09/28/2024 7:04 AM EST 09/28/2024 11:03 AM EST us Hal Cole MD LAB BLOOD ORDERABLES Final Resul t [facility] [address] [place] [address], [place] [phone] * (ABNORMAL) Basic metabolic panel (09/28/2024 7:04 AM EST) Sodium 141 133 - 145 mmol/L LAB CHEMISTRY METHOD 09/28/2024 12:06 PM [facility] Potassium 4.2 3.5 - 5.5 mmol/L LAB CHEMISTRY METHOD 09/28/2024 12:06 PM [facility] Chloride 106 96 - 110 mmol/L LAB CHEMISTRY METHOD 09/28/2024 12:06 PM [facility] CO2 29 21 - 32 mmol/L LAB CHEMISTRY METHOD 09/28/2024 12:06 PM [facility] Anion Gap 6 3 - 11 LAB CHEMISTRY METHOD 09/28/2024 12:06 PM [facility] Glucose 139(H) 70 - 100 mg/dL LAB CHEMISTRY METHOD 09/28/2024 12:06 PM [facility] BUN 67(H) 5 - 25 mg/dL LAB CHEMISTRY METHOD 09/28/2024 12:06 PM [facility] Creatinine 1.83(H) 0.50 - 1.10 mg/dL LAB CHEMISTRY METHOD 09/28/2024 12:06 PM [facility] eGFR 28(L) >=60 mL/min/1. 73m2 LAB CHEMISTRY METHOD 09/28/2024 12:06 PM EST [facility] Comment:Calculation based on the??Chronic Kidney Disease Epidemiology Collaboration (CKD-EPI) equation refit??without adjustment for race. BUN/Creatinine Ratio 36.6 LAB CHEMISTRY METHOD 09/28/2024 12:06 PM [facility] Calcium 8.3(L) 8.5 - 10.5 mg/dL LAB CHEMISTRY METHOD 09/28/2024 12:06 PM [facility] Blood Venous blood specimen / Unknown Venipuncture / Unknown 09/28/2024 7:04 AM EST 09/28/2024 11:03 AM EST us Hal Cole MD LAB BLOOD ORDERABLES Final Resul t [facility] [address] [place] [address], [place] [phone] * (ABNORMAL) Complete blood count (09/28/2024 7:04 AM EST) WBC 7.1 4.8 - 10.8 K/mcL LAB HEMETOLOGY METHOD 09/28/2024 11:31 AM [facility] RBC 3.70(L) 3.80 - 4.80 M/mcL LAB HEMETOLOGY METHOD 09/28/2024 11:31 AM [facility] Hemoglobin 10.8(L) 11.5 - 16.0 g/dL LAB HEMETOLOGY METHOD 09/28/2024 11:31 AM [facility] Hematocrit 36.0 35.0 - 47.0 % LAB HEMETOLOGY METHOD 09/28/2024 11:31 AM [facility] MCV 96.5 79.0 - 98.0 FL LAB HEMETOLOGY METHOD 09/28/2024 11:31 AM [facility] MCH 29.0 27.0 - 32.0 pcg LAB HEMETOLOGY METHOD 09/28/2024 11:31 AM EST [facility] MCHC 30.0(L) 32.0 - 37.0 g/dL LAB HEMETOLOGY METHOD 09/28/2024 11:31 AM [facility] RDW 13.5 11.0 - 15.0 % LAB HEMETOLOGY METHOD 09/28/2024 11:31 AM [facility] Platelets 214 130 - 400 K/mcL LAB HEMETOLOGY METHOD 09/28/2024 11:31 AM [facility] MPV 9.9 7.0 - 11.0 FL LAB HEMETOLOGY METHOD 09/28/2024 11:31 AM [facility] NRBC 0.0 <1.0 % LAB HEMETOLOGY METHOD 09/28/2024 11:31 AM [facility] NRBC Absolute 0.00 <0.10 K/mcL LAB HEMETOLOGY METHOD 09/28/2024 11:31 AM [facility] Blood Venous blood specimen / Unknown Venipuncture / Unknown 09/28/2024 7:04 AM EST 09/28/2024 11:03 AM EST us Hal Cole MD LAB BLOOD ORDERABLES Final Resul t [facility] [address] [place] [address], documented in this encounter Visit Diagnoses Diagnosis Essential (primary) hypertension Unspecified essential hypertension Chronic obstructive pulmonary disease, unspecified (CMS/HCC) documented in this encounter Care Teams Keyboard Teacher Relationship Specialty Start Date End Date Hal Cole MD [address] [place] [address], [phone] PCP - General Family Medicine 09/15/24 documented as of this encounter
--- OUTSIDE RECORDS SUMMARY | 2025-01-03 18:34 | XMS_ITS | Encounter Summary ---
Author Organization [employer] Address [address] [place] [address] Care Team Providers Care Business Development Professional Name Role Phone Hal Cole MD Primary Care Provider [phone] Encounter Details Date Type Department Care Team (Late st Contact Info) Description 08/27/2024 Lab Requisition [facility] - Main Lab [address] [facility] [place] [address] Hal Cole MD [address] [place] [address], [phone] Type 2 diabetes mellitus without complications [...] Travel phlebotomy fee (08/29/2024 5:30 AM EST) [facility] HOME TRAVEL PHLEBOTOMY FEE Completed 08/29/2024 10:[address] [facility] Blood Venous blood specimen / Unknown Venipuncture / Unknown 08/29/2024 5:30 AM EST 08/29/2024 9:51 AM EST us Hal Cole MD LAB BLOOD ORDERABLES Final Resul t [facility] [address] [place] [address], [place] [phone] * (ABNORMAL) Basic metabolic panel (08/29/2024 5:30 AM EST) [facility] Sodium 137 133 - 145 mmol/L LAB CHEMISTRY METHOD 08/29/2024 10:[address] [facility] Potassium 5.0 3.5 - 5.5 mmol/L LAB CHEMISTRY METHOD 08/29/2024 10:[address] [facility] Comment:Hemolysis present Chloride 101 96 - 110 mmol/L LAB CHEMISTRY METHOD 08/29/2024 10:[address] [facility] CO2 29 21 - 32 mmol/L LAB CHEMISTRY METHOD 08/29/2024 10:[address] [facility] Anion Gap 7 3 - 11 LAB CHEMISTRY METHOD 08/29/2024 10:[address] [facility] Glucose 156(H) 70 - 100 mg/dL LAB CHEMISTRY METHOD 08/29/2024 10:[address] [facility] BUN 62(H) 5 - 25 mg/dL LAB CHEMISTRY METHOD 08/29/2024 10:[address] [facility] Creatinine 1.63(H) 0.50 - 1.10 mg/dL LAB CHEMISTRY METHOD 08/29/2024 10:[address] [facility] eGFR 33(L) >=60 mL/min/1. 73m2 LAB CHEMISTRY METHOD 08/29/2024 10:[address] [facility] Comment:Calculation based on the??Chronic Kidney Disease Epidemiology Collaboration (CKD-EPI) equation refit??without adjustment for race. BUN/Creatinine Ratio 38.0 LAB CHEMISTRY METHOD 08/29/2024 10:[address] [facility] Calcium 8.8 8.5 - 10.5 mg/dL LAB CHEMISTRY METHOD 08/29/2024 10:[address] [facility] Blood Venous blood specimen / Unknown Venipuncture / Unknown 08/29/2024 5:30 AM EST 08/29/2024 9:51 AM EST us Hal Cole MD LAB BLOOD ORDERABLES Final Resul t [facility] [address] [place] [address], * (ABNORMAL) Complete blood count (08/29/2024 5:30 AM EST) WBC 8.4 4.8 - 10.8 K/mcL LAB HEMETOLOGY METHOD 08/29/2024 10:[address] [facility] RBC 4.00 3.80 - 4.80 M/mcL LAB HEMETOLOGY METHOD 08/29/2024 10:[address] [facility] Hemoglobin 11.6 11.5 - 16.0 g/dL LAB HEMETOLOGY METHOD 08/29/2024 10:[address] [facility] Hematocrit 39.0 35.0 - 47.0 % LAB HEMETOLOGY METHOD 08/29/2024 10:[address] [facility] MCV 98.5(H) 79.0 - 98.0 FL LAB HEMETOLOGY METHOD 08/29/2024 10:[address] [facility] MCH 29.3 27.0 - 32.0 pcg LAB HEMETOLOGY METHOD 08/29/2024 10:59 AM EST [facility] MCHC 29.7(L) 32.0 - 37.0 g/dL LAB HEMETOLOGY METHOD 08/29/2024 10:[address] [facility] RDW 13.5 11.0 - 15.0 % LAB HEMETOLOGY METHOD 08/29/2024 10:[address] [facility] Platelets 308 130 - 400 K/mcL LAB HEMETOLOGY METHOD 08/29/2024 10:[address] [facility] MPV 9.9 7.0 - 11.0 FL LAB HEMETOLOGY METHOD 08/29/2024 10:[address] [facility] NRBC 0.0 <1.0 % LAB HEMETOLOGY METHOD 08/29/2024 10:[address] [facility] NRBC Absolute 0.00 <0.10 K/mcL LAB HEMETOLOGY METHOD 08/29/2024 10:[address] [facility] Blood Venous blood specimen / Unknown Venipuncture / Unknown 08/29/2024 5:30 AM EST 08/29/2024 9:51 AM EST us Hal Cole MD LAB BLOOD ORDERABLES Final Resul t [facility] [address] [place] [address], documented in this encounter Visit Diagnoses Diagnosis Type 2 diabetes mellitus without complications (CMS/HCC) Chronic obstructive pulmonary disease, unspecified (CMS/HCC) documented in this encounter Care Teams Business Development Professional Relationship Specialty Start Date End Date Hal Cole MD [address] [place] [address], [phone] PCP - General Family Medicine 09/15/24 documented as of this encounter
--- OUTSIDE RECORDS SUMMARY | 2025-01-03 18:34 | XMS_ITS | Clinical Summary ---
Author Organization [facility] Address [address] [place] [address] Phone Care Team Providers Care Audiometrist Name Role Phone Neida Mirza MD Primary Care Provider [phone] Allergies Active Allergy Reactions Criticality Noted Date [...] this topic Insurance MEDICARE MEDICARE Care Teams Audiometrist Relationship Specialty Start Date End Date Neida Mirza MD [address] [place], [place] PCP - General 11/05/20
--- OUTSIDE RECORDS SUMMARY | 2025-01-03 18:34 | XMS_ITS | Encounter Summary ---
Author Organization [employer] Address [address] [place] [address] Care Team Providers Care Structures Assembler Name Role Phone Hal Cole MD Primary Care Provider [phone] Encounter Details Date Type Department Care Team (Late st Contact Info) Description 09/15/2024 Lab Requisition [facility] - Main Lab [address] [place] [address] Hal Cole MD [address] [place] [address], [phone] Chronic obstructive pulmonary disease, unspecified (CMS/HCC) [...] AM EST) WBC 7.4 4.8 - 10.8 [facility] LAB HEMETOLOGY METHOD 09/15/2024 8:25 AM [facility] LAB RBC 3.70(L) 3.80 - 4.80 M/mcL LAB HEMETOLOGY METHOD 09/15/2024 8:25 AM [facility] LAB Hemoglobin 10.6(L) 11.5 - 16.0 g/dL LAB HEMETOLOGY METHOD 09/15/2024 8:25 AM [facility] LAB Hematocrit 35.5 35.0 - 47.0 % LAB HEMETOLOGY METHOD 09/15/2024 8:25 AM [facility] LAB MCV 95.4 79.0 - 98.0 FL LAB HEMETOLOGY METHOD 09/15/2024 8:25 AM [facility] LAB MCH 28.5 27.0 - 32.0 pcg LAB HEMETOLOGY METHOD 09/15/2024 8:25 AM [facility] LAB MCHC 29.9(L) 32.0 - 37.0 g/dL LAB HEMETOLOGY METHOD 09/15/2024 8:25 AM [facility] LAB RDW 13.3 11.0 - 15.0 % LAB HEMETOLOGY METHOD 09/15/2024 8:25 AM [facility] LAB Platelets 245 130 - 400 K/mcL LAB HEMETOLOGY METHOD 09/15/2024 8:25 AM [facility] LAB MPV 9.5 7.0 - 11.0 FL LAB HEMETOLOGY METHOD 09/15/2024 8:25 AM [facility] LAB NRBC 0.0 <1.0 % LAB HEMETOLOGY METHOD 09/15/2024 8:25 AM [facility] LAB NRBC Absolute 0.00 <0.10 K/mcL LAB HEMETOLOGY METHOD 09/15/2024 8:25 AM [facility] LAB Neutrophils Relative 73.5 % LAB HEMETOLOGY METHOD 09/15/2024 8:25 AM [facility] LAB Lymphocytes Relative 14.3 % LAB HEMETOLOGY METHOD 09/15/2024 8:25 AM [facility] LAB Monocytes Relative 6.0 % LAB HEMETOLOGY METHOD 09/15/2024 8:25 AM [facility] LAB Eosinophils Relative 4.8 % LAB HEMETOLOGY METHOD 09/15/2024 8:25 AM [facility] LAB Basophils Relative 0.7 % LAB HEMETOLOGY METHOD 09/15/2024 8:25 AM [facility] LAB Immature Granulocytes Relative 0.7 % LAB HEMETOLOGY METHOD 09/15/2024 8:25 AM [facility] LAB Neutrophils Absolute 5.41 1.50 - 7.00 K/mcL LAB HEMETOLOGY METHOD 09/15/2024 8:25 AM [facility] LAB Lymphocytes Absolute 1.05 1.00 - 5.00 K/mcL LAB HEMETOLOGY METHOD 09/15/2024 8:25 AM [facility] LAB Monocytes Absolute 0.44 0.20 - 1.00 K/mcL LAB HEMETOLOGY METHOD 09/15/2024 8:25 AM [facility] LAB Eosinophils Absolute 0.35 0.00 - 0.50 K/mcL LAB HEMETOLOGY METHOD 09/15/2024 8:25 AM [facility] LAB Basophils Absolute 0.05 0.00 - 0.20 K/mcL LAB HEMETOLOGY METHOD 09/15/2024 8:25 AM [facility] LAB Immature Granulocytes Absolute 0.05(H) 0.00 - 0.03 K/mcL LAB HEMETOLOGY METHOD 09/15/2024 8:25 AM [facility] LAB Blood Venous blood specimen / Unknown Venipuncture / Unknown 09/15/2024 5:17 AM EST 09/15/2024 8:04 AM EST us Hal Cole MD LAB BLOOD ORDERABLES Final Resul t [facility] [address] [place] [address], * (ABNORMAL) Basic metabolic panel (09/15/2024 5:17 AM EST) Sodium 141 133 - 145 mmol/L LAB CHEMISTRY METHOD 09/15/2024 9:01 AM [facility] LAB Potassium 3.7 3.5 - 5.5 mmol/L LAB CHEMISTRY METHOD 09/15/2024 9:01 AM [facility] LAB Chloride 104 96 - 110 mmol/L LAB CHEMISTRY METHOD 09/15/2024 9:01 AM [facility] LAB CO2 32 21 - 32 mmol/L LAB CHEMISTRY METHOD 09/15/2024 9:01 AM [facility] LAB Anion Gap 5 3 - 11 LAB CHEMISTRY METHOD 09/15/2024 9:01 AM [facility] LAB Glucose 187(H) 70 - 100 mg/dL LAB CHEMISTRY METHOD 09/15/2024 9:01 AM [facility] LAB BUN 57(H) 5 - 25 mg/dL LAB CHEMISTRY METHOD 09/15/2024 9:01 AM [facility] LAB Creatinine 1.92(H) 0.50 - 1.10 mg/dL LAB CHEMISTRY METHOD 09/15/2024 9:01 AM [facility] LAB eGFR 27(L) >=60 mL/min/1. 73m2 LAB CHEMISTRY METHOD 09/15/2024 9:01 AM [facility] LAB Comment:Calculation based on the??Chronic Kidney Disease Epidemiology Collaboration (CKD-EPI) equation refit??without adjustment for race. BUN/Creatinine Ratio 29.7 LAB CHEMISTRY METHOD 09/15/2024 9:01 AM [facility] LAB Calcium 8.4(L) 8.5 - 10.5 mg/dL LAB CHEMISTRY METHOD 09/15/2024 9:01 AM [facility] LAB Blood Venous blood specimen / Unknown Venipuncture / Unknown 09/15/2024 5:17 AM EST 09/15/2024 8:04 AM EST us Hal Cole MD LAB BLOOD ORDERABLES Final Resul t [facility] [address] [place] [address], documented in this encounter Visit Diagnoses Diagnosis Chronic obstructive pulmonary disease, unspecified (CMS/HCC) documented in this encounter Care Teams Structures Assembler Relationship Specialty Start Date End Date aHl Cole MD [address] [place] [address], [phone] PCP - General Family Medicine 09/15/24 documented as of this encounter
--- OUTSIDE RECORDS SUMMARY | 2025-01-03 18:34 | XMS_ITS ---
Author Organization [facility] Care Team Providers Care Nuclear Process Engineer Name Role Phone Hal Cole Unavailable Unavailable Carlee Amezcua Unavailable Allergies and adverse reactions Code CodeSystem Substance Reaction Severity StartDate Concern Status 2670 RXNORM Codeine Unknown 05/31/2019 active Care Team Name Role Address Phone Organization Dates Hal Cole PCP [address], [address], [place] (Office): : [facility] 05/31/2019 - 06/06/2019 Carlee Amezcua Attending Physician [address], [address], [facility] (Office): [facility] 05/31/2019 - 06/06/2019 Goals Section Description Status Target Date I will be free from any s/sx of hyperglycemia or hypoglycemia through the review date. Active 08/25/2019 I will be free of injury through the next review date. Active 08/25/2019 I will demonstrate the appro priate use of adaptive device(s) to increase ability in (Bed Mobility, Transfers, Eating, Dressing, Toilet Use and Personal Hygiene) through the review date. Active 08/25/2019 I will follow smoking policy through next review . Active 08/25/2019 I will have no complications related to SOB though the review date. Active 08/25/2019 I will not develop complicat ions from weight gain such as skin breakdown, ineffective breathing pattern, altered cardiac output, diabetes, impaired mobility through review date. , Active I will not have an interrupt ion in normal activities due to pain through the review date. Active 08/25/2019 I will participate in indepe ndent leisure pursuits of past and present interest of my choice as often as tolerated by time of discharge or by evaluation date. Active 08/25/2019 I will remain free from skin breakdown due to incontinence and brief use through the review date. Active 08/25/2019 I will safely consume at [address] 75% of most meals and maintain my weight less than 330 pounds through next review date Active 11/10/2018 My pressure ulcer will show signs of healing and remain free from infection by/through review date. Active 08/25/2019 Immunizations Immunization Status Vaccine Details Vaccine Code CodeSystem Jhonny e Notes Influenza cancelled Influenza, split virus, trivalent, injectable, contains preservative 141 CVX created date: 06/02/2019 consent date: 06/01/2019 PCV13 (Pneumococcal Conjugate)Vaccine cancelled pneumococcal conjugate vaccine, 13 valent 133 CVX created date: 06/02/2019 consent date: 06/01/2019 Mental Status Section Date Assessment Total Score Description 06/06/2019 CAM 0 No delirium ind icated Problems Problem # Description Date of onset Resolved Date Code CodeSystem Concern Status 1 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 05/31/2019 J96.21 ICD-10-CM active 2 ACUTE KIDNEY FAILURE, UNSPECIFIED 05/31/2019 N17.9 ICD-10-CM active 3 CHRONIC OBSTRUCTIVE PULMONARY DISEASE, UNSPECIFIED 05/31/2019 J44.9 ICD-10-CM active 4 DYSPHAGIA, OROPHARYNGEAL PHASE 05/31/2019 R13.12 ICD-10-CM active 5 ESSENTIAL (PRIMARY) HYPERTENSION 05/31/2019 I10 ICD-10-CM active 6 HEART FAILURE, UNSPECIFIED 05/31/2019 I50.9 ICD-10-CM active 7 HYPERLIPIDEMIA, UNSPECIFIED 05/31/2019 E78.5 ICD-10-CM active 8 MORBID (SEVERE) OBESITY DUE TO EXCESS CALORIES 05/31/2019 E66.01 ICD-10-CM active 9 OTHER SPECIFIED HYPOTHYROIDISM 05/31/2019 E03.8 ICD-10-CM active 10 SHORTNESS OF BREATH 05/31/2019 R06.02 ICD-10-CM active 11 TYPE 2 DIABETES MELLITUS WITHOUT COMPLICATIONS 05/31/2019 E11.9 ICD-10-CM active Reason for Referral No Reasons for Referral Entered Social History Social History Observation Description Start Date End Date Code Code System Current Smoking Status Tobacco smoking consumption unknown 123900465 SNOMED CT Sex Assigned At Female 1945 19903-6 [facility] Vital Signs Code Code System Vitals Name Values and Units Timing Information 9279-1 [facility] Respiratory Rate Value=20.0 Units=/m in 06/06/2019 8462-4 [facility] Blood Pressure-Diastolic Value=71 Un its=mmHg 06/06/2019 8480-6 [facility] Blood Pressure-Systolic Bvxch=053 Un its=mmHg 06/06/2019 8867-4 [facility] Heart rate Value=90.0 Units=/min 09/2019 78850-6 [facility] O2 % dC Oximetry Value=55.0 Units= % 06/06/2019 2339-0 [facility] Blood Sugar Nktqr=784.0 Units=mg/dL 06/06/2019 8310-5 [facility] Body Temperature Value=98.1 Units=?? F 06/05/2019 52157-5 [facility] Pain Level Value=1.0 06/05/2019 00690-0 [facility] Weight Ehelq=414.5 Units=Lbs 08/2019 8302-2 [facility] Height Value=64.0 Units=Inches 05/31/2019
--- OUTSIDE RECORDS SUMMARY | 2025-01-03 18:34 | XMS_ITS | Data Portability ---
Author Organization [facility], Main Office Address [address], [address] [place] [address] Care Team Providers Care Manifest Clerk Name Role Phone VALARIE JORDAN - 2ND FLOOR OTHER SHOBHA SMITH Primary Care Provider [phone] Assessment Encounter Date Assessment Date Assessment LastModified [...] By Organization Details Last Modified Time 09/06/2024 [id number] medicines to avoid with kidney disease: care instructions [email or web address] Not available 09/06/2024 14:42:44 09/08/2024 [id number] medicines to avoid with kidney disease: care instructions [email or web address] Not available 09/08/2024 13:56:49 Reason for Referral None Reported. Problems Name Problem SNOMED Code Status Onset Date Resolution Date Notes Provider Name and Address Organization Details Recorded Time Acute hypoxemic respirator y failure 835875871 Active 2023 ALLAN RPADHAN NP [address] [facility], [address], [place], [address], [facility] [employer] 4 10:51:05 Pneumonia 961252470 Active 2023 ALLAN PRADHAN NP [address] [facility], [address], [place], [address], [place] [facility] 4 10:51:21 Pleural effusion 05015450 Active 2023 ALLAN PRADHAN NP [address], [address], [place], [address], [facility] 4 10:51:43 Gastroesop hageal reflux disease without esophagiti s 294679538 Active 2023 ALLAN PRADHAN NP [address], [address], [place], [address], [facility] 4 10:53:46 Anxiety 49338600 Active 2023 ALLAN PRADHAN NP [address], [address], [place], [address], [facility] 4 11:00:09 Chronic kidney disease stage 3 166922378 Active 2023 ALLAN PRADHAN NP [address], [address], [place], [address], [facility] 4 11:21:29 Chronic pain syndrome 541431200 Active 2023 ALLAN PRADHAN NP [address], [address], [place], [address], [facility] 4 11:21:39 Acute nontraumat ic kidney injury 0439982023002 03 Active 2023 ALLAN PRADHAN NP [address], [address], [place], [address], [facility] 4 11:23:16 Left bundle branch block 92203081 Active 2023 ALLAN PRADHAN NP [address], [address], [place], [address], [facility] 4 11:23:30 Pernicious anemia 69805645 Active 2023 ALLAN PRADHAN NP [address], [address], [place], [address], [facility] 4 11:23:46 Obstructiv e sleep apnea syndrome 85332134 Active 2023 ALLAN PRADHAN NP [address], [address], [place], [address], [facility] 4 11:47:23 Open wound 180348289 Active 2023 sacral ALLAN PRADHAN NP [address], [address], [place], [address], [facility] 4 12:05:33 Asthenia 60053918 Active 2023 ALLAN PRADHAN NP [address], [address], [place], [address], [facility] 4 12:10:47 Diastolic heart failure 249219523 Active 2018 Hal Cole MD [address], [address], [place], [address], [facility] 9 14:45:31 Dysphagia 97056213 Active 2018 Hal Cole MD [address], [place], [address], [facility] 9 14:45:39 Chronic obstructiv e pulmonary disease 40732324 Active 2018 Hal Cole MD [address], [address], [place], [address], [facility] 9 14:45:48 Essential hypertensi on 11338192 Active 2018 Hal Cole MD [address], [address], [place], [address], [facility] 9 14:45:53 Diabetes mellitus 01409396 Active 2018 Hal Cole MD [address], [address], [place], [address], [facility] 9 14:45:57 Hyperlipid emia 91264107 Active 2018 Hal Cole MD [address], [place], [address], [facility] 9 14:46:04 Obesity 725150406 Active 2018 Hal Cole MD [address], [address], [place], [address], [employer] 9 14:46:12 Hypothyroi dism 99349353 Active 2018 Hal Cole MD [address] [facility], [address], [place], [address], [employer] 9 14:50:40 Problem Notes None recorded. Medical Equipment None Reported. Allergies Allergen ID Allergen Name Allergen Category Reaction Reaction Severity Criticality Documentation Date Start Date Code Code System Note Provider Name and Address Organization Details Recorded Time 81821 ibuprofen medicatio n Not available Not available Not available 08/11/2024 5640 RxNorm swell ing Not Available Not Available Not Available 40650 codeine medicatio n Not available Not available [...] mm[Hg] 86 mm[Hg] ALLAN PRADHAN NP [address] [facility] [address], [place], [address] , [employer] 4 14:03:04 Date Recorded Heart rate Respiratory rate Body temperature Oxygen saturation Oxygen saturation in Arterial blood by Pulse oximetry Systolic blood pressure Diastolic blood pressure Provider Name and Address Organization Details Last Updated DateTime 4 74 /min 18 /min 99 [degF] 98 % 98 % 130 mm[Hg] 74 mm[Hg] ALLAN PRADHAN NP [address] [facility], [address], [place], [address] , [employer] 4 13:48:17 Date Recorded Body weight Heart rate Respiratory rate Body temperature Oxygen saturation Oxygen saturation in Arterial blood by Pulse oximetry Systolic blood pressure Diastolic blood pressure Provider Name and Address Organization Details Last Updated DateTime 4 18348.1 4 g 69 /min 16 /min 98.3 [degF] 97 % 97 % 134 mm[Hg] 64 mm[Hg] Eloina Odom NP [address] [facility] [address], [place], [address], [employer] 4 09:02:44 Date Recorded Body height Body mass index (BMI) Body weight Heart rate Respiratory rate Body temperature Oxygen saturation Oxygen saturation in Arterial blood by Pulse oximetry Inhaled oxygen flow rate Systolic blood pressure Diastolic blood pressure Provider Name and Address Organization Details Last Updated DateTime 4 167.64 cm 32.9 kg/m2 62451.1 3 g 72 /min 18 /min 97.5 [degF] 97 % 97 % 2 L/min 129 mm[Hg] 76 mm[Hg] Carlee Amezcua MD [address] [facility] [address], [place], [address], [employer] 4 22:10:41 Date Recorded Body height Body weight Body mass index (BMI) Heart rate Respiratory rate Body temperature Oxygen saturation Oxygen saturation in Arterial blood by Pulse oximetry Systolic blood pressure Diastolic blood pressure Provider Name and Address Organization Details Last Updated DateTime 4 167.64 cm 24823.2 5 g 32.8 kg/m2 74 /min 16 /min 97.9 [degF] 95 % 95 % 133 mm[Hg] 72 mm[Hg] Eloina Odom NP [address] [facility] [address], [place], [address], [employer] 4 08:16:49 Social History Question Answer Notes LastModified by Organizat ion Details LastModified Time Tobacco Smoking Status Former Smoker Not Available [employer] 08/21/2020 03:13:21 Do You Have An Advance Directive? No Full Code [id number] Information not available 08/21/2020 What Is Your Level Of Alcohol Consumption? None [email or web address] Information not available 08/11/2024 What Is Your Code Status? Full Code [email or web address] Information not available 09/01/2024 Do You Have A Medical Power Of Money Examiner? Yes Has HCP [email or web address] Information not available 08/11/2024 What Was The Date Of Your Most Recent Tobacco Screening? 08/11/2024 [email or web address] Information not available 08/11/2024 Do You Have An Out Of Hospital DNR? Yes [email or web address] Information not available 09/01/2024 How Much Tobacco Do You Smoke? 1.5 PPD [id number] Information not available 08/21/2020 Do You Use Any Illicit Or Recreational Drugs? No [email or web address] Information not available 08/11/2024 Has Tobacco Cessation Counseling Been Provided? No [email or web address] Information not available 08/11/2024 How Many Years Have You Smoked Tobacco? 25 [id number] Information not available 08/21/2020 Do You Or Have You Ever Used Any Other Forms Of Tobacco Or Nicotine? No [email or web address] Information not available 08/11/2024 Sex: Unknown Functional Status None recorded. Mental Status None recorded. Family History Relationship Description Onset Age of this Age Resolved Age Notes LastModified by Organization Details LastModified Time Father Disorder of cardiovascul ar system [email or web address] Not available 2023 11:24:15 Medical History No medical history recorded. Gynecological HistoryNo gynecological history recorded. Obstetrics History GPAL:G 0 P 0 0 0 0 Immunizations Vaccine Type Date Status Note Provider Nam e and Address Organization Details Recorded Time influenza, unspecified formulation 11/10/2021 completed Jessica gonsalez [place] - [facility] 08/10/2024 14:21:03 Past Encounters Encounter ID Performer Location Encounter Start Date Encounter Closed Date Diagnosis/Indication Diagnosis SNOMED-CT Code Diagnosis ICD10 Code Diagnosis Note [id number] MD ARMEN Urrutia [address] [place] [address] [place] [address] 06/01/2019 14:38:26 06/08/2019 15:41:33 Acute hypoxemic respiratory failure 562625041 J96.01 see HPIseconda ry to aspiration dx with dysphagiaC HF exacerbati on with recent dx of diastolic CHFmonitor respirator y functionto be scheduled for sleep study due to concern for OSAtitrate O2 in patient with baseline COPD Diastolic heart failure 144023066 I50.33 see HPIappears chronicall y ill due to multiple co-morbid conditions recent dx with diuresis of 18 liters at prior hospitaliz ationnow onlasix 40 mg bidmonitor weights and fluid statusmoni tor respirator y and renal functionti trate medication s prn Dysphagia 34745225 R13.1 2 see HPIeval by speechnow on ground mech soft dietrepeat speech eval prn Chronic ob structive pulmonary disease 18940946 J41.1 hx tobacco quit > 30 yrs priormonit or respirator y functionto be scheduled for sleep study with concern for OSApulmona ry consult prn Essential hypertension 83189933 I10 norvasc 5 mg qdlasix 40 mg bidmonitor bp and renal function Asthenia 30407111 R53.1 PT OT eval and treatmonit or fall risk Diabetes mellitus 514469 09 E11.9 hx of DMonmetfor min 1000 mg bid with 500 mg q noonglipiz nneka 5 mg bidinsulin SSmonitor blood glucose Hypothyroidism 13862762 E03.8 synthroid 200 mcg qdmonitor tsh prn Hyperlipidemia 73386816 E78.49 gemfibrozi l 600 mg bidlipitor 40 mg qd continue Obesity 954266527 E66.01 dietary eval at baseline [id number] [facility] [address] [place] [address] 06/06/2019 11:35:48 06/08/2019 16:08:53 Hypoxia 687391954 R09.02 send to ER for this d/t sat 50% on O2 with chest pain. Acute kidney injury 1466 9001 N17.9 likely d/t overdiures is. had been on lasix 40 bid, sending to ER, may need this held. Acute hypo xemic respiratory failure 916460832 J96.01 see HPIseconda ry to aspiration dx with dysphagiaC HF exacerbati on with recent dx of diastolic CHFmonitor respirator y functionto be scheduled for sleep study due to concern for OSAtitrate O2 in patient with baseline COPD Diastolic heart failure 928076832 I50.33 see HPIappears chronicall y ill due to multiple co-morbid conditions recent dx with diuresis of 18 liters at prior hospitaliz ationhere was on:lasix 40 mg bid*Now appearing dry- may need to hold diuretics at hospital. Dysphagia 46002931 R13.1 2 see HPIeval by speechnow on ground [facility] soft dietrepeat speech eval prn Chronic ob structive pulmonary disease 17344992 J41.1 hx tobacco quit > 30 yrs priorsendi ng to ER for hypoxia, chest pain, ARF [id number] ALLAN PRADHAN NP [facility] [address] [address] 08/11/2024 10:50:24 08/15/2024 09:32:52 Acute hypoxemic respiratory failure 298325388 J96.01 Santo related to COPD and acute on chronic CHF.Respon ded well to interventi ons in hosp.Chuck nue O2 @ 2L - chronic use.Contin ue inhalers for COPD, bumex for CHF.Monito r closely Chronic ob structive pulmonary disease 46670416 J41.1 Treated for exac. in hosp. with nebs and steroids with improvemen t.Continue O2 - uses 2L chronicall y at home.Chuck nue:duoneb prnalbuter ol MDI prn - at bedside for self administra tion.Monit or sats, resp. status for change. Pneumonia 702370329 J18. 9 Treated with ceftriaxon e and azithromyc in x 7 days with improvemen t, transition ed to Augmentin 875 mg bid x 3d and Doxy 100 mg bid x 3d upon d/c to complete a 10 day course of tx.Monitor resp. sx. Diastolic heart failure 034191742 I50.33 Treated with IV lasix in hosp., changed back to bumex 2 mg qd with improvemen t in condition. Continue bumexHeart healthy/lo w salt dietDaily VS and weightsLab s q mond. x 3Follow for decompensa tion Pleural effusion 9134739 8 J90 s/p thoracente sismonitor Diabetes mellitus 373902 09 E11.9 A1C 7.6%Contin ue home meds:basag lar 15 units qdjardianc e 10 mg qdlispro SSICarb control dietAdjust meds prn Essential hypertension 59283696 I10 Continue home meds:norva sc 10 mg qdbumex 2 mg qdMoniotor VS, labs, adjust meds prn Hyperlipidemia 90610186 E78.49 continue atorvastat in 40 mg qdgemfibro zil stopped due to interventi on with lipitor LF Ts WNRLipid panel if stays shelter Hypothyroidism 83360558 E03.8 Continue levothyrox ine 200 mcg qdTSH, FT4 prn Gastroesop hageal reflux disease without esophagitis 533721469 K21.9 ??started omeprazole 20 mg qd while in the hospitalmo nitor GI sx.conside r stopping in 6 wks. if no sx. Anxiety 27196786 F41.9 Continue home meds:cymba lta 20 mg qdativan 0.5 mg tid prn (x14d, then re-eval)Ps ych referral PRNMonitor mood, behaviors Chronic ki dney disease stage 3 635655312 N18.30 Monitor labs - BMP q mond. x 3Maintain hydrationA void nephrotoxi cs Chronic pain syndrome 37 4807875 G89.4 Continue:c ymbalta 20 mg qdoxycodon e 5 mg q8 hr prnPt. states chronic low back pain, knee pain, and sacral pain due to a fractured tailbone at 20 yrs. of age) Obstructiv e sleep apnea syndrome 01973313 G47.33 Per pt.Does not use CPAP, instead wears O2 2L RTC at home. Asthenia 78110528 R53.1 Deconditio rosana due to hospitaliz ation and chronic medical conditions .PT OT eval and tx.Goal is to return home. Open wound 477278491 T14 .8XXA Open wound sacral area - [...] with minerals dailyDieta ry supplement s per coat presser Concern of potential breakdown on heels as does not allow pillow under legs to float heels due to chronic sacral pain from old fracture. Can try heel boots if cyndi. to help reduce pressure as well as skin prep qd.Monitor closely. [id number] Hal Cole MD [address] [address] 08/15/2024 12:44:18 08/17/2024 11:09:33 Asthenia 91907938 R53.1 PT OT Eval and treatmonit or fall risk and need for increased support in community Acute hypo xemic respiratory failure 876050588 J96.01 see HPI due to CHF, COPD, pneumoniao n O2 at baselinemo nitor respirator y status and need to repeat imaging Chronic ob structive pulmonary disease 19259788 J44.1 On O2 at baselineco mpleted steroid coursecont inue outpatient medsmonito r respirator y status Pneumonia 414822187 J15. 8 see HPI now to complete doxy and augmentinm onitor need to reimage Diastolic heart failure 517010453 I50.33 required IV lasix in hospital now onbumex 2 mg qdmonitor respirator y and fluid statusnote d ARF on CRF Diabetes mellitus 460755 09 E11.9 continue out patient medsmonito r need to titrate Hyperlipidemia 06810037 E78.49 medication s adjusted in hospital now onlipitor 40 mg qd Hypothyroidism 01817991 E03.8 synthroid 200 mcg qdtsh prn Gastroesop hageal reflux disease without esophagitis 480349973 K21.9 recently started on PPImonitor need to continuetr ial off in 2-4 weeks Acute kidney injury 1466 9001 N17.8 ARF on CRFmonitor renal functionav oid nephrotoxi c meds as ablenephro consult prn [id number] ALLAN PRADHAN NP [address] [address] 08/16/2024 11:32:50 08/24/2024 10:16:43 Asthenia 16260494 R53.1 Deconditio rosana due to hospitaliz ation and chronic medical conditions .Continue PT OT eval and tx.Goal is to return home. Acute hypo xemic respiratory failure 605312691 J96.01 Santo related to COPD and acute on chronic CHF.Respon ded well to interventi ons in hosp.Chuck nue O2 @ 2L - chronic use.Contin ue inhalers for COPD, bumex for CHF.Monito r closely Chronic ob structive pulmonary disease 29836406 J41.1 Treated for exac. in hosp. with nebs and steroids with improvemen t.Continue O2 - uses 2L chronicall y at home.Chuck nue:duoneb prnalbuter ol MDI prn - at bedside for self administra tion.Monit or sats, resp. status for change. Pneumonia 843716490 J18. 9 Treated with ceftriaxon e and azithromyc in x 7 days with improvemen t, transition ed to Augmentin 875 mg bid x 3d and Doxy 100 mg bid x 3d upon d/c to complete a 10 day course of tx.Monitor resp. sx. Diastolic heart failure 318668335 I50.33 Treated with IV lasix in hosp., changed back to bumex 2 mg qd with improvemen t in condition. Continue bumexHeart healthy/lo w salt dietDaily VS and weights (reminded nursing of daily weights and record)Lab s q mond. x 3Follow for decompensa tion Pleural effusion 8212820 8 J90 s/p thoracente sismonitor Chronic ki dney disease stage 3 480554722 N18.30 Monitor labs - BMP q mond. x 3Maintain hydrationA void nephrotoxi cs Diabetes mellitus 355827 09 E11.9 A1C 7.6%BS mostly 100sContin ue home meds:basag lar 15 units qdjardianc e 10 mg qdlispro SSICarb control dietAdjust meds prn Essential hypertension 41992402 I10 Continue home meds:norva sc 10 mg qdbumex 2 mg qdMoniotor VS, labs, adjust meds prn Hyperlipidemia 03898912 E78.49 continue atorvastat in 40 mg qdgemfibro zil stopped due to interventi on with lipitor LF Ts WNRLipid panel if stays shelter Hypothyroidism 86457580 E03.8 Continue levothyrox ine 200 mcg qdTSH, FT4 prn Gastroesop hageal reflux disease without esophagitis 142866611 K21.9 ??started omeprazole 20 mg qd while in the hospitalmo nitor GI sx.conside r stopping in 6 wks. if no sx. Anxiety 43883869 F41.9 Continue home meds:cymba lta 20 mg qdativan 0.5 mg tid prn (x14d, then re-eval)Ps ych referral PRNMonitor mood, behaviors Chronic pain syndrome 37 7823295 G89.4 Continue:c ymbalta 20 mg qdoxycodon e 5 mg q8 hr prnPt. states chronic low back pain, knee pain, and sacral pain due to a fractured tailbone at 20 yrs. of age) Obstructiv e sleep apnea syndrome 41888021 G47.33 Per pt.Does not use CPAP, instead wears O2 2L RTC at home. Open wound 176698316 T14 .8XXA Open wound sacral area - developed in hosp.Suspe ct started first as MASD due to chronic incontinen ce, now with opening in skin.Plan -Continue: Triad cream q shift and prnPressur e relief as much as possibleRe ferred to Wound PA-CMVI with minerals daily addedDieta ry supplement s per coat presser - currently on glucerna bid. Concern of potential breakdown on heels as does not allow pillow under legs to float heels due to chronic sacral pain from old fracture. Can try heel boots if cyndi. to help reduce pressure as well as skin prep qd.Monitor closely. [id number] ALLAN PRADHAN NP [facility] [address] [address] 08/23/2024 10:50:36 08/24/2024 10:28:22 Asthenia 62908356 R53.1 Deconditio rosana due to hospitaliz ation and chronic medical conditions .PT OT eval and tx., making gains.Goal is to return home. Acute hypo xemic respiratory failure 180491791 J96.01 Santo related to COPD and acute on chronic CHF.Respon ded well to interventi ons in hosp., currently stable.Con tinue O2 @ 2L - chronic use.Contin ue inhalers for COPD, bumex for CHF.Monito r closely Chronic ob structive pulmonary disease 55716489 J41.1 Treated for exac. in hosp. with nebs and steroids with improvemen t.Continue O2 - uses 2L chronicall y at home.Chuck nue:duoneb prnalbuter ol MDI prn - at bedside for self administra tion.Monit or sats, resp. status for change. Pneumonia 078875949 J18. 9 Treated with ceftriaxon e and azithromyc in x 7 days with improvemen t, transition ed to Augmentin 875 mg bid x 3d and Doxy 100 mg bid x 3d upon d/c to complete a 10 day course of tx.Resolvi ng, continue to monitor resp. sx. Diastolic heart failure 621011816 I50.33 Treated with IV lasix in hosp., changed back to bumex 2 mg qd with improvemen t in condition. Continue bumexHeart healthy/lo w salt dietDaily VS and weights (reminded nursing again of daily weights and record)Lab s q mond. x 3Follow for decompensa tion Pleural effusion 2821004 8 J90 s/p thoracente sismonitor Chronic ki dney disease stage 3 354785521 N18.30 Monitor labs - BMP q mond. x 2 more timesMaint ain hydrationA void nephrotoxi cs Diabetes mellitus 074410 09 E11.9 A1C 7.6%BS mostly 100sContin ue home meds:basag lar 15 units qdjardianc e 10 mg qdlispro SSICarb control dietAdjust meds prn Essential hypertension 30239896 I10 Continue home meds:norva sc 10 mg qdbumex 2 mg qdMoniotor VS, labs, adjust meds prn Hyperlipidemia 53972592 E78.49 continue atorvastat in 40 mg qdgemfibro zil stopped due to interventi on with lipitor LF Ts WNRLipid panel if stays shelter Hypothyroidism 01549293 E03.8 Continue levothyrox ine 200 mcg qdTSH, FT4 prn Gastroesop hageal reflux disease without esophagitis 020320356 K21.9 ??started omeprazole 20 mg qd while in the hospitalmo nitor GI sx.conside r stopping in 6 wks. if no sx. Anxiety 62858395 F41.9 Continue home meds:cymba lta 20 mg qdativan 0.5 mg tid prn (x14d, then re-eval)Ps [facility] referral PRNMonitor mood, behaviors Chronic pain syndrome 37 3600707 G89.4 Continue:c ymbalta 20 mg qdoxycodon e 5 mg q8 hr prnPt. states chronic low back pain, knee pain, and sacral pain due to a fractured tailbone at 20 yrs. of age) Obstructiv e sleep apnea syndrome 82042197 G47.33 Per pt.Does not use CPAP, instead wears O2 2L RTC at home. Open wound 488022539 T14 .8XXA Open wound sacral area - developed in hosp.Sus[place] ct started first as MASD due to chronic incontinen ce, now with opening in skin.Plan -Continue: Triad cream q shift and prnPressur e relief as much as possibleRe ferred to Wound PA-CMVI with minerals daily addedDieta ry supplement s per coat presser - currently on glucerna bid. Concern of potential breakdown on heels as does not allow pillow under legs to float heels due to chronic sacral pain from old fracture. Can try heel boots if cyndi. to help reduce pressure as well as skin prep qd.Monitor closely. Constipation 80847732 K5 9.00 discussed with VALENTIN, last BM 3 days ago.add miralax daily, start today.enco urage OOB, fiber, fluids [id number] ALLAN PRADHAN, CHIO [facility] [address] [address] 09/01/2024 12:36:05 09/02/2024 11:15:18 Asthenia 58184260 R53.1 Deconditio rosana due to hospitaliz ation and chronic medical conditions .PT OT eval and tx., making gains.Goal is to return home. Acute hypo xemic respiratory failure 872995494 J96.01 Santo related to COPD and acute on chronic CHF.Respon ded well to interventi ons in hosp., currently stable.Con tinue O2 @ 2L - chronic use.Contin ue inhalers for COPD, bumex for CHF.Monito r closely Chronic ob structive pulmonary disease 78778789 J41.1 Treated for exac. in hosp. with nebs and steroids with improvemen t.Continue O2 - uses 2L chronicall y at home.Chuck nue:duoneb prnalbuter ol MDI prn - at bedside for self administra tion.Monit or sats, resp. status for change. Pneumonia 039013390 J18. 9 Treated with ceftriaxon e and azithromyc in x 7 days with improvemen t, transition ed to Augmentin 875 mg bid x 3d and Doxy 100 mg bid x 3d upon d/c to complete a 10 day course of tx.Resolvi ng, continue to monitor resp. sx. Diastolic heart failure 029574974 I50.33 Treated with IV lasix in hosp., changed back to bumex 2 mg qd with improvemen t in condition. Continue bumexHeart healthy/lo w salt dietDaily VS and weights (reminded nursing AGAIN of daily weights and record)Lab s q mond. x 3Follow for decompensa tion Pleural effusion 6497651 8 J90 s/p thoracente sismonitor Chronic ki dney disease stage 3 329573655 N18.30 Monitor labs - BMP q mond. x 2 more timesMaint ain hydrationA void nephrotoxi cs Diabetes mellitus 969786 09 E11.9 A1C 7.6%BS mostly 100sContin ue home meds:basag lar 15 units qdjardianc e 10 mg qdlispro SSICarb control dietAdjust meds prn Essential hypertension 15170867 I10 Continue home meds:norva sc 10 mg qdbumex 2 mg qdMoniotor VS, labs, adjust meds prn Hyperlipidemia 98120999 E78.49 continue atorvastat in 40 mg qdgemfibro zil stopped due to interventi on with lipitor LF Ts WNRLipid panel if stays shelter Hypothyroidism 55019376 E03.8 Continue levothyrox ine 200 mcg qdTSH, FT4 prn Gastroesop hageal reflux disease without esophagitis 417412823 K21.9 ??started omeprazole 20 mg qd while in the hospitalmo nitor GI sx.conside r stopping in 6 wks. if no sx. Anxiety 71493645 F41.9 Continue home meds:cymba lta 20 mg qdativan 0.5 mg tid prn (x14d, then re-eval)Ps h referral PRNMonitor mood, behaviors Chronic pain syndrome 37 3764708 G89.4 Continue:c ymbalta 20 mg qdoxycodon e 5 mg q8 hr prnPt. states chronic low back pain, knee pain, and sacral pain due to a fractured tailbone at 20 yrs. of age) Obstructiv e sleep apnea syndrome 74323012 G47.33 Per pt.Does not use CPAP, instead wears O2 2L RTC at home. Open wound 295123159 T14 .8XXA Open wound sacral area - developed in hosp.Sus[place] ct started first as MASD due to chronic incontinen ce, now with opening in skin.Plan -Continue: Triad cream q shift and prnPressur e relief as much as possibleRe ferred to Wound PA-CMVI with minerals daily addedDieta ry supplement s per coat presser - currently on glucerna bid. Concern of potential breakdown on heels as does not allow pillow under legs to float heels due to chronic sacral pain from old fracture. Can try heel boots if cyndi. to help reduce pressure as well as skin prep qd.Monitor closely. Constipation 76114834 K5 9.00 Bowels still sluggishAl ready on miralax, now add senna-s 2 tabs daily, hold for loose stool.enco urage OOB, fiber, fluidsCont inue to monitor and adjust. [id number] [facility] [address] 09/06/2024 14:01:29 09/07/2024 10:12:43 Asthenia [id number] R53.1 Deconditio rosana due to hospitaliz ation and chronic medical conditions .PT OT eval and tx., making gains.Goal is to return home. Acute hypo xemic respiratory failure 834590224 J96.01 Santo related to COPD and acute on chronic CHF.Respon ded well to interventi ons in hosp., currently stable.Con tinue O2 @ 2L - chronic use.Contin ue inhalers for COPD, bumex for CHF.Monito r closely Chronic ob structive pulmonary disease 22033059 J41.1 Treated for exac. in hosp. with nebs and steroids with improvemen t.Continue O2 - uses 2L chronicall y at home.Chuck nue:duoneb prnalbuter ol MDI prn - at bedside for self administra tion.Monit or sats, resp. status for change. Pneumonia 135695937 J18. 9 Treated with ceftriaxon e and azithromyc in x 7 days with improvemen t, transition ed to Augmentin 875 mg bid x 3d and Doxy 100 mg bid x 3d upon d/c to complete a 10 day course of tx.Resolvi ng, continue to monitor resp. sx. Diastolic heart failure 592205073 I50.33 Treated with IV lasix in hosp., changed back to bumex 2 mg qd with improvemen t in condition. Continue bumexHeart healthy/lo w salt dietDaily VS and weights (reminded nursing AGAIN of daily weights and record)CBC , BMP in am x 1Follow for decompensa tion Pleural effusion 9283220 8 J90 s/p thoracente sismonitor Chronic ki dney disease stage 3 879911083 N18.30 Monitor labs - BMP x 1 in amMaintain hydrationA void nephrotoxi cs Diabetes mellitus 118811 09 E11.9 A1C 7.6%BS mostly 100s - 200sContin ue home meds:basag lar 15 units qdjardianc e 10 mg qdlispro SSICarb control dietAdjust meds prn Essential hypertension 48561130 I10 Continue home meds:norva sc 10 mg qdbumex 2 mg qdMoniotor VS, labs, adjust meds prn Hyperlipidemia 66634425 E78.49 continue atorvastat in 40 mg qdgemfibro zil stopped due to interventi on with lipitor LF Ts WNRLipid panel if stays shelter Hypothyroidism 15077985 E03.8 Continue levothyrox ine 200 mcg qdTSH, FT4 prn Gastroesop hageal reflux disease without esophagitis 574852005 K21.9 ??started omeprazole 20 mg qd while in the hospitalmo nitor GI sx.conside r stopping in 6 wks. if no sx. Anxiety 31213371 F41.9 Continue home meds:cymba lta 20 mg qdativan 0.5 mg tid prn (x14d, then re-eval)Ps h referral PRNMonitor mood, behaviors Chronic pain syndrome 37 3910017 G89.4 Continue:c ymbalta 20 mg qdoxycodon e 5 mg q8 hr prnPt. states chronic low back pain, knee pain, and sacral pain due to a fractured tailbone at 20 yrs. of age) Obstructiv e sleep apnea syndrome 66714823 G47.33 Per pt.Does not use CPAP, instead wears O2 2L RTC at home. Open wound 279650752 T14 .8XXA Open wound sacral area - [...] minerals daily addedDieta ry supplement s per coat presser - currently on glucerna bid. Concern of potential breakdown on heels as does not allow pillow under legs to float heels due to chronic sacral pain from old fracture. Can try heel boots if cyndi. to help reduce pressure as well as skin prep qd.Monitor closely. Constipation 59173084 K5 9.00 No BM since 08/31 if documentat ion correct.NM N bowel meds not used.Curre ntly on miralax daily.Torrey a-s 2 tabs bid ordered 09/01, currently not on MARAbdomen distended. Plan -Fleets nowMag Citrate 1/2 bottle today, repeat 1/2 bottle in am if poor results.In crease miralax to bidRe-orde r senna-s 2 tabs bid, hold for loose stoolMonit or closely.en courage OOB, fiber, fluidsCont inue to monitor and adjust. [id number] ALLAN PRADHAN NP [address] [address] 09/08/2024 13:47:32 09/09/2024 11:13:19 Constipation 12134528 K59.00 No BM since 08/31 if documentat ion correct.NM N bowel meds had not been utilized. Mag Citrate and fleets ordered with very good results. Now on:Miralax bidSenna-s 2 tabs bid Plan -Continue current laxativesE ncourage OOB, fiber, fluidsCont inue to monitor closely and adjust PRN Asthenia 15080975 R53.1 Deconditio rosana due to hospitaliz ation and chronic medical conditions .PT OT eval and tx., making gains.Goal is to return home. Open wound 581723094 T14 .8XXA Open wound sacral area - [...] minerals daily addedDieta ry supplement s per coat presser - currently on glucerna bid. Concern of potential breakdown on heels as does not allow pillow under legs to float heels due to chronic sacral pain from old fracture. Can try heel boots if cyndi. to help reduce pressure as well as skin prep qd.Monitor closely. Acute hypo xemic respiratory failure 409521189 J96.01 Santo related to COPD and acute on chronic CHF.Respon ded well to interventi ons in hosp., currently stable.Con tinue O2 @ 2L - chronic use.Contin ue inhalers for COPD, bumex for CHF.Monito r closely Chronic ob structive pulmonary disease 78969156 J41.1 Treated for exac. in hosp. with nebs and steroids with adamaris t.Continue O2 - uses 2L chronicall y at home.Chuck nue:duoneb prnalbuter ol MDI prn - at bedside for self administra tion.Monit or sats, resp. status for change. Pneumonia 139273337 J18. 9 Treated with ceftriaxon e and azithromyc in x 7 days with adamaris t, transition ed to Augmentin 875 mg bid x 3d and Doxy 100 mg bid x 3d upon d/c to complete a 10 day course of tx.Resolvi ng, continue to monitor resp. sx. Diastolic heart failure 840583988 I50.33 Treated with IV lasix in hosp., changed back to bumex 2 mg qd with adamaris t in condition. Continue bumexHeart healthy/lo w salt dietDaily VS and weights (reminded nursing AGAIN of daily weights and record)CBC , BMP in am x 1Follow for decompensa tion Pleural effusion 0348135 8 J90 s/p thoracente sismonitor Chronic ki dney disease stage 3 518773187 N18.30 Monitor labs - BMP x 1 in amMaintain hydrationA void nephrotoxi cs Diabetes mellitus 091226 09 E11.9 A1C 7.6%BS mostly 100s - 200sContin ue home meds:basag lar 15 units qdjardianc e 10 mg qdlispro SSICarb control dietAdjust meds prn Essential hypertension 43926193 I10 Continue home meds:norva sc 10 mg qdbumex 2 mg qdMoniotor VS, labs, adjust meds prn Hyperlipidemia 38396576 E78.49 continue atorvastat in 40 mg qdgemfibro zil stopped due to interventi on with lipitor LF Ts WNRLipid panel 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 if no sx. Anxiety 49917296 F41.9 Continue home meds:cymba lta 20 mg qdativan 0.5 mg tid prn (x14d, then re-eval)Ps ych referral PRNMonitor mood, behaviors Chronic pain syndrome 37 8263497 G89.4 Continue:c ymbalta 20 mg qdoxycodon e 5 mg q8 hr prnPt. states chronic low back pain, knee pain, and sacral pain due to a fractured tailbone at 20 yrs. of age) Obstructiv e sleep apnea syndrome 59187256 G47.33 Per pt.Does not use CPAP, instead wears O2 2L RTC at home. [id number] [facility] [address] 09/14/2024 09:01:39 09/15/2024 09:07:05 Constipation 23000674 K59.00 resolvedMa g Citrate and fleets ordered with very good results.Miralax daily09/14 change Senna-s 2 tabs from bid to dailyEncou rage OOB, fiber, fluidsCont inue to monitor closely and adjust PRN Asthenia 58954495 R53.1 Deconditio rosana due to hospitaliz ation and chronic medical conditions .PT OT eval and tx., making gains.Goal is to return home. Open wound 917983718 T14 .8XXA Open wound sacral area - [...] with minerals dailyDieta ry supplement s per coat presser - currently on glucerna bid. Concern of potential breakdown on heels as does not allow pillow under legs to float heels due to chronic sacral pain from old fracture. Can try heel boots if cyndi. to help reduce pressure as well as skin prep qd.Monitor closely. Acute hypo xemic respiratory failure 753610191 J96.01 Santo related to COPD and acute on chronic CHF.Respon ded well to interventi ons in hosp., currently stable.Con tinue O2 @ 2L - chronic use.Contin ue inhalers for COPD, bumex for CHF.Monito r closely Chronic ob structive pulmonary disease 36178086 J41.1 Treated for exac. in hosp. with nebs and steroids with adamaris wright.Continue O2 - uses 2L chronicall y at home.Chuck nue:duoneb prnalbuter ol MDI prn - at bedside for self administra tion.Monit or sats, resp. status for change. Pneumonia 122861505 J18. 9 resolvedTr eated with ceftriaxon e and azithromyc in x 7 days with adamaris wright, transition ed to Augmentin 875 mg bid x 3d and Doxy 100 mg bid x 3d upon d/c to complete a 10 day course of tx.Resolvi ng, continue to monitor resp. sx.monitor for need to repeat cxr if resp symptoms persist/re turn Diastolic heart failure 674574156 I50.33 Treated with IV lasix in hosp.,harding gethien back to bumex 2 mg qd with adamaris wright in condition. Heart healthy/lo w salt dietDaily VS and weightspt currently 218, will need another weight(8 lb increase since admit)nsg awareFollo w for decompensa tionmonito rbmp and cbc maggi 09/15 Pleural effusion 4600568 8 J90 stable without increased work of breathings /p thoracente sis from hospmonito r Chronic ki dney disease stage 3 946876451 N18.30 bmp and cbc as above, monitor need to continueMa intain hydrationA void nephrotoxi cs Diabetes mellitus 909374 09 E11.9 A1C 7.6%BS mostly 100s - 200sContin ue :basaglar 15 units qdjardianc e 10 mg qdlispro SSICarb control dietAdjust meds prn Essential hypertension 31254361 I10 Continue:n orvasc 10 mg qdbumex 2 mg qdMoniotor VS, labs, adjust meds prn Hyperlipidemia 99498526 E78.49 continueat orvastatin 40 mg qdgemfibro zil stopped due to interventi on with lipitor LF Ts WNRLipid panel if stays shelter Hypothyroidism 68199477 E03.8 Continuele vothyroxin e 200 mcg qdTSH, FT4 prn Gastroesop hageal reflux disease without esophagitis 493360316 K21.9 contomepra zole 20 mg qd (? started while in the hospital)m onitor GI sx.conside r stopping in 6 wks. if no sx. Anxiety 41948614 F41.9 Continue :cymbalta 20 mg qdativan 0.5 mg tid prn (x14d, then re-eval)ev al on sych referral PRNMonitor mood, behaviors Chronic pain syndrome 37 6936807 G89.4 Continue:c ymbalta 20 mg qdoxycodon e 5 mg q8 hr prnPt. states chronic low back pain, knee pain, and sacral pain due to a fractured tailbone at 20 yrs. of age) Obstructiv e sleep apnea syndrome 84444931 G47.33 Per pt.Does not use CPAP, instead wears O2 2L RTC at home. [id number] Carlee Amezcua MD [facility] [address] [address] 09/27/2024 20:05:35 09/28/2024 10:42:39 Diastolic heart failure 694733201 I50.33 Appears euvolemic. Last wt on 09/24 was down 5# from previous wt.Daily wts have been ordered 4 times and not being done.Wts ordered for M/W/FConti nue Bumex 2 mg qd.Monitor resp. status, fluid status, wts and labs. Asthenia 78938462 R53.1 Improved back to baseline per pt.Unclear if rehab agrees.Molina villareal have SS consult with rehab and pt tomorrow to see if ready for d/c. Open wound 364317656 T14 .8XXA Resolved.C ontinue good skin care to prevent reopening. Acute hypo xemic respiratory failure 570950327 J96.01 Resolved.A s above. Chronic ob structive pulmonary disease 93015176 J41.1 Back to baseline per pt.Continu e atrovent 2 puffs q 6 hrs prn.Contin ue supplement al O2 titrated to sats >90%Monito r resp status. Pleural effusion 5605888 8 J90 Thought to be due to PNA and CHF.Txed with abxs and thoracente sis.No f/u needed unless increased sxs.Monito r resp status Chronic ki dney disease stage 3 182325049 N18.32 Back to baseline.C ontinue to avoid nephrotoxi c meds as able.Monit or labs.Renal consult prn. Diabetes mellitus 418900 09 E11.9 Sugars in adequate control.Co ntinue basaglar 15 units qd, jardiance 10 mg qd and SSIMonitor fingerstic ks TID and HgA1C q 3 months. Essential hypertension 55154420 I10 In good control since here.Chuck nue amlodipine 10 mg qd and bumex 2 mg qdMonitor BP and labs. Hyperlipidemia 26230178 E78.49 Continue atorvastat in 40 mg qdMonitor labs as outpt Hypothyroidism 52117181 E03.8 Continue levothyrox ine 200 mcg qdI can't find a TSH in [facility] or [facility] systems.Wi ll order for AM Gastroesop hageal reflux disease without esophagitis 196410264 K21.9 No current sxs.Contin ue omeprazole 20 mg qdMonitor GI sx. Pneumonia 361075025 J18. 9 Resolved Anxiety 94197218 F41.1 Mood good tonight.Co ntinue Cymbalta 20 mg qd and lorazepam 0.5 mg TID prn.Monito r mood.Psych following. Chronic pain syndrome 37 5051218 G89.4 Continue meds as above and oxycodone 5 mg q 8 hrs prn and APAP 650 mg q 4 hrs prn.Monito r sxs. Obstructiv e sleep apnea syndrome 15092078 G47.33 Not on CPAP.F/U as outpt. [id number] Eloina Odom NP [facility] [address] [place] [address] 09/30/2024 08:15:34 10/03/2024 13:20:59 Diastolic heart failure 964428303 I50.33 Appears euvolemic. weight 203 on 09/24 last, down approx 5 lbs hereweight daily at homeContin ue Bumex 2 mg qd.Monitor resp. status, fluid status, at home with services and pcp outpt Asthenia 16592894 R53.1 Improved back to baseline per pt.Unclear if rehab agrees but pt insistent on going home.Pt able to walk approx 75 feet with walker and at baseline prior to hospitaliz ationmonit or with pcp outpt Chronic ob structive pulmonary disease 45630829 J41.1 Back to baseline per pt.Continu e atrovent 2 puffs q 6 hrs prn.Contin ue supplement al O2 2at liters baseline and titrated to sats >90%Monito r resp status outpt with pcp and services Pleural effusion 3125843 8 J90 Thought to be due to PNA and CHF.Txed with abxs and thoracente sis.No f/u needed unless increased sxs.Monito r resp status outpt with pcp Acute hypo xemic respiratory failure 937592642 J96.01 Resolved.A s above. Chronic ki dney disease stage 3 183051026 N18.32 Back to baseline. cr 1.5-1.9Con tinue to avoid nephrotoxi c meds as able.Monit or labs outpt with pcpRenal consult prn outpt Diabetes mellitus 684586 09 E11.9 Sugars in adequate control.mo stly 100-200sCo ntinue basaglar 15 units qd, jardiance 10 mg qd and SSIMonitor fingerstic ks TID and HgA1C q 3 months with pcp outpt Essential hypertension 96176706 I10 In good control since here.Chuck nue amlodipine 10 mg qd and bumex 2 mg qdMonitor BP and labs outpt with pcp prn Hyperlipidemia 47684236 E78.49 Continue atorvastat in 40 mg qdMonitor outpt with pcp Open wound 124469464 T14 .8XXA Resolved.C ontinue good skin care to prevent reopening. Hypothyroidism 55363626 E03.8 Continue levothyrox ine 200 mcg qdmonitor oupt with pcp Gastroesop hageal reflux disease without esophagitis 129837468 K21.9 No current sxs.Contin ue omeprazole 20 mg qdMonitor GI sx. outpt with pcp Pneumonia 128184369 J18. 9 Resolved Anxiety 51555604 F41.1 Mood good tonight.Co ntinue Cymbalta 20 mg qd and lorazepam 0.5 mg TID prn.Monito r mood outpt with pcp Chronic pain syndrome 37 1018551 G89.4 Continue meds as above and oxycodone 5 mg q 8 hrs prn and APAP 650 mg q 4 hrs prn.Monito r sxs. outpt with pcp Obstructiv e sleep apnea syndrome 52292599 G47.33 Not on CPAP.F/U as outpt Health Concerns Section Related Observation LastModified by Organization Detai ls LastModified Time None Recorded Concern Status LastModified by Organization Details LastModified Time None Recorded Advance Directives Directive N: Full Code Payers Encounter Date Sequence Insurance Name Policy Number Policy Tidwell Covered Member ID Tidwell Member ID Guarantor Name 09/06/2024 1 [place] [employer] Radhika Vaca [id number] Radhika Vaca 09/06/2024 2 [place] [facility] Radhika Vaca [id number] Radhika Vaca 09/08/2024 1 [place] [employer] Radhika Vaca [id number] Radhika Vaca 09/08/2024 2 [place] [facility] Radhika Vaca [id number] Radhika Vaca 09/14/2024 1 [place] [employer] Radhika Vaca [id number] Radhika Vaca 09/14/2024 2 [place] [facility] Radhika Vaca [id number] Radhika Vaca 09/27/2024 1 [place] [facility] Radhika Vaca [id number] Radhika Vaca 09/27/2024 2 [place] [facility] Radhika Vaca [id number] Radhika Vaca 09/30/2024 1 [place] [facility] Radhika Vaca [id number] Radhika Vaca 09/30/2024 2 [place] [facility] Radhika Vaca [id number] Radhika Vaca Notes Date Note Type Note Provider Name and Address Organization Details Recorded Time 09/06/2024 text/html Radhika is seen today for a routine, 30 day visit. She is a 78 yo lady, admitted to [facility] 08/09/24 from [facility] for continued care [...] code ALLAN PRADHAN NP [address] [facility] [address], [address], [place], [address], [facility] [employer] [facility] 09/06/2024 15:00:32 09/08/2024 text/html Radhika is seen today for an acute visit. She is a 78 yo lady, admitted to [facility] 08/09/24 from [facility] for continued care [...] code ALLAN PRADHAN NP [address] [facility], [address], [place], [address], [facility] [employer] [facility] 09/08/2024 13:56:51 09/14/2024 text/html Radhika is seen today for an acute rounding visit. PMH: anxiety, CKD3, COPD, chronic pain, DM, CHF, dysphagia, HTN, HLD, hypothyroid, LBBB, morbid obesity, pernicious anemia, TEZ, chronic O2 use.Full code She is a 78 yo lady, admitted to [facility] 08/09/24 from [facility] for continued care and rehab after a a brief hosp. due to resp. failure (COPD, PNA, CHF) and MARJORIE on CKD (cardiorenal syndrome). Also developed a sacral wound during admission. While here at [facility]:Radhika is doing well and working with [...] fall risk Eloina Odom, CHIO [address], [address], [place], [address], [facility] [employer] 09/14/2024 09:44:48 09/27/2024 text/html This is a [...] LBBB, and TEZ. Carlee Amezcua MD [address] [facility], [address], [place], [address], [facility] 09/28/2024 02:15:34 09/30/2024 text/html Pt is a [...] transferred here for STR. Since here at [facility]: She had a sacral wound treated [...] her home with o2. 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 Breathing non labored. Eloina Odom, CHIO [address], [address], [place], [address], [facility] [employer] 09/30/2024 08:56:26 OBGyn Episode No OBEpisode recorded.
--- OUTSIDE RECORDS SUMMARY | 2025-01-03 18:34 | XMS_ITS | Encounter Summary ---
Author Organization [facility] Address [address] [place] [address] Care Team Providers Care Snowboard Designer Name Role Phone Hal Cole MD Primary Care Provider [phone] Encounter Details Date Type Department Care Team (Late st Contact Info) Description 09/21/2024 Lab Requisition [facility] - Main Lab [address] [place] [address] Hal Cole MD [address] [place] [address], [phone] Chronic kidney disease, unspecified Social History [...] LAB CHEMISTRY METHOD 09/21/2024 12:11 PM EST [facility] Potassium 4.2 3.5 - 5.5 mmol/L LAB CHEMISTRY METHOD 09/21/2024 12:11 PM EST [facility] Chloride 107 96 - 110 mmol/L LAB CHEMISTRY METHOD 09/21/2024 12:11 PM EST [facility] CO2 26 21 - 32 mmol/L LAB CHEMISTRY METHOD 09/21/2024 12:11 PM [facility] Anion Gap 10 3 - 11 LAB CHEMISTRY METHOD 09/21/2024 12:11 PM [facility] Glucose 126(H) 70 - 100 mg/dL LAB CHEMISTRY METHOD 09/21/2024 12:11 PM [facility] BUN 49(H) 5 - 25 mg/dL LAB CHEMISTRY METHOD 09/21/2024 12:11 PM [facility] Creatinine 1.58(H) 0.50 - 1.10 mg/dL LAB CHEMISTRY METHOD 09/21/2024 12:11 PM [facility] eGFR 34(L) >=60 mL/min/1. 73m2 LAB CHEMISTRY METHOD 09/21/2024 12:11 PM [facility] Comment:Calculation based on the??Chronic Kidney Disease Epidemiology Collaboration (CKD-EPI) equation refit??without adjustment for race. BUN/Creatinine Ratio 31.0 LAB CHEMISTRY METHOD 09/21/2024 12:11 PM [facility] Calcium 8.4(L) 8.5 - 10.5 mg/dL LAB CHEMISTRY METHOD 09/21/2024 12:11 PM [facility] Blood Venous blood specimen / Unknown Venipuncture / Unknown 09/21/2024 7:31 AM EST 09/21/2024 9:59 AM EST us Hal Cole MD LAB BLOOD ORDERABLES Final Resul t [facility] [address] [place] [address], documented in this encounter Visit Diagnoses Diagnosis Chronic kidney disease, unspecified documented in this encounter Care Teams Snowboard Designer Relationship Specialty Start Date End Date Hal Cole MD [address] [place] [address], [phone] PCP - General Family Medicine 11/21/24 documented as of this encounter
--- OUTSIDE RECORDS SUMMARY | 2025-01-03 18:34 | XMS_ITS | Clinical Summary ---
Author Organization [facility] Address [address] [place] [address] Phone Care Team Providers Care Pigment Processor Name Role Phone Hal Cole MD Primary Care Provider [phone] Social History Tobacco Use Types Packs/Day Years [...] ( season) 2024 Influenza Vaccine (#1) 2024 Hypertension/CHF/CAD [...] Associated Diagnosis Comments BASIC METABOLIC PANEL Routine 09/28/2024 7:04 AM EST Essential (primary) hypertension Chronic obstructive pulmonary disease, unspecified (CMS/HCC) from Last 3 Months or Most Recently Relevant to Health Maintenance Results * (ABNORMAL) Basic metabolic panel (09/28/2024 7:04 AM EST) Sodium 141 133 - 145 mmol/L LAB CHEMISTRY METHOD 09/28/2024 12:06 PM [facility] Potassium 4.2 3.5 - 5.5 mmol/L LAB CHEMISTRY METHOD 09/28/2024 12:06 PM [facility] Chloride 106 96 - 110 mmol/L LAB CHEMISTRY METHOD 09/28/2024 12:06 PM [facility] CO2 29 21 - 32 mmol/L LAB CHEMISTRY METHOD 09/28/2024 12:06 PM [facility] Anion Gap 6 3 - 11 LAB CHEMISTRY METHOD 09/28/2024 12:06 PM [facility] Glucose 139(H) 70 - 100 mg/dL LAB CHEMISTRY METHOD 09/28/2024 12:06 PM [facility] BUN 67(H) 5 - 25 mg/dL LAB CHEMISTRY METHOD 09/28/2024 12:06 PM [facility] Creatinine 1.83(H) 0.50 - 1.10 mg/dL LAB CHEMISTRY METHOD 09/28/2024 12:06 PM [facility] eGFR 28(L) >=60 mL/min/1. 73m2 [...] Resul t [facility] [address] [place] [address], from Last 3 Months or Most Recently Relevant to Health Maintenance Insurance MEDICAID - [place] MEDICARE Care Teams Pigment Processor Relationship Specialty Start Date End Date Hal Cole MD [address] [place] [address] [address] [place], [phone] PCP - General Family Medicine 09/15/24
== END 2025-01-03 18:30 | disposition home or self-care (01) ==
PROVIDERS: Registered Nurse Emergency; Emergency Provider Student in an Organized Health Care Education/Training Program; PCP Student in an Organized Health Care Education/Training Program
DX: N39.0 Urinary tract infection, site not specified (principal)
CPT/HCPCS: 81001; 87086; 87088; 87186; 99284

== ENCOUNTER 2025-01-05 02:03 | Inpatient (IN) | payer MEDICARE, OTHER, SELFPAY ==
[2025-01-05] VITALS (27 sets, daily range): BP systolic 109–166; BP diastolic 35–83; PULSE 52–65; RESP 15–42; TEMP 36.1–37.2; O2SAT 91–100; BMI 40.1
--- NOTE | 2025-01-05 | ECG_ITS ---
Test Reason : SOB Blood Pressure : */* mmHG Vent. Rate : 54 BPM Atrial Rate : 214 BPM P-R Int : * ms QRS Dur : 108 ms QT Int : 456 ms P-R-T Axes : * -36 82 degrees QTcB Int : 432 ms Undetermined rhythm - possible sinus, difficult to see P waves Left axis deviation Minimal voltage criteria for LVH, may be normal variant ( Mcclave product ) Possible Anterior infarct , age undetermined Abnormal ECG When compared with ECG of 27-Oct-2024 08:14, Current undetermined rhythm precludes rhythm comparison, needs review QT has shortened Referred By: Generic ED Physician Electronically Signed By: JIMBO CASTILLO
--- NOTE | ~2025-01-05 | XR_ITS ---
EXAMINATION: XR CHEST 1 VIEW HISTORY: RUL infiltrates follow up COMPARISON: Comparison is made with the prior examination dated 01/05/2025. FINDINGS: A single AP portable view of the chest performed at 10:34 AM is submitted. There has been slight progression of the previously seen right upper lobe airspace opacity. There are new airspace opacities are noted at the left lung base. Findings are consistent with pneumonia. There is no pleural effusion, pneumothorax, or pulmonary vascular congestion. The heart is enlarged. The aorta is calcified. The bones are intact. XR/XR chest 1V IMPRESSION: Progression of right upper lobe pneumonia. New left lower lobe pneumonia. Electronically signed by: Valeriano Garnett MD 01/11/2025 10:50 AM EDT
--- NOTE | ~2025-01-05 | XR_ITS ---
CLINICAL HISTORY: sob 1 view chest x-ray Comparison: CR/SR - XR CHEST 1V - 10/27/24 07:58 EST Findings: There is interstitial prominence with patchy right suprahilar density. Trace effusions. Cardiac and mediastinal contours are stable. No acute fracture. IMPRESSION: Chronic interstitial prominence with possible right upper lobe infiltrate. Follow-up recommended. This document has been electronically signed by: Juan Fernandes MD on 01/05/2025 05:28:23
[2025-01-05] MEDS: Albuterol Sulfate 7.5 MG, Albuterol Sulfate (0.083%) 2.5 MG 10 MG INHALE (02:25)
--- OUTSIDE RECORDS SUMMARY | 2025-01-05 02:45 | XMS_ITS | Clinical Summary ---
Author Organization [facility] Address [address] [place] [address] Phone Care Team Providers Care Commission Broker Name Role Phone Neida Mirza MD Primary Care Provider [phone] Allergies Active Allergy Reactions Criticality Noted Date [...] this topic Insurance MEDICARE MEDICARE Care Teams Commission Broker Relationship Specialty Start Date End Date Neida Mirza MD [address] [place], [place] PCP - General 11/05/20
--- OUTSIDE RECORDS SUMMARY | 2025-01-05 02:45 | XMS_ITS | Encounter Summary ---
Author Organization [facility] Address [address] [place] [address] Care Team Providers Care Writing Tutor Name Role Phone Hal Cole MD Primary Care Provider [phone] Encounter Details Date Type Department Care Team (Late st Contact Info) Description 09/21/2024 Lab Requisition [facility] - Main Lab [address] [place] [address] Hal Cole MD [address] [place] [address], [phone] Chronic kidney disease, unspecified Social History [...] LAB CHEMISTRY METHOD 09/21/2024 12:11 PM EST [facility] Potassium 4.2 3.5 - 5.5 mmol/L LAB CHEMISTRY METHOD 09/21/2024 12:11 PM EST [facility] Chloride 107 96 - 110 mmol/L LAB CHEMISTRY METHOD 09/21/2024 12:11 PM EST [facility] CO2 26 21 - 32 mmol/L LAB CHEMISTRY METHOD 09/21/2024 12:11 PM [facility] Anion Gap 10 3 - 11 LAB CHEMISTRY METHOD 09/21/2024 12:11 PM [facility] Glucose 126(H) 70 - 100 mg/dL LAB CHEMISTRY METHOD 09/21/2024 12:11 PM [facility] BUN 49(H) 5 - 25 mg/dL LAB CHEMISTRY METHOD 09/21/2024 12:11 PM [facility] Creatinine 1.58(H) 0.50 - 1.10 mg/dL LAB CHEMISTRY METHOD 09/21/2024 12:11 PM [facility] eGFR 34(L) >=60 mL/min/1. 73m2 LAB CHEMISTRY METHOD 09/21/2024 12:11 PM [facility] Comment:Calculation based on the??Chronic Kidney Disease Epidemiology Collaboration (CKD-EPI) equation refit??without adjustment for race. BUN/Creatinine Ratio 31.0 LAB CHEMISTRY METHOD 09/21/2024 12:11 PM [facility] Calcium 8.4(L) 8.5 - 10.5 mg/dL LAB CHEMISTRY METHOD 09/21/2024 12:11 PM [facility] Blood Venous blood specimen / Unknown Venipuncture / Unknown 09/21/2024 7:31 AM EST 09/21/2024 9:59 AM EST us Hal Cole MD LAB BLOOD ORDERABLES Final Resul t [facility] [address] [place] [address], documented in this encounter Visit Diagnoses Diagnosis Chronic kidney disease, unspecified documented in this encounter Care Teams Writing Tutor Relationship Specialty Start Date End Date Hal Cole MD [address] [place] [address], [phone] PCP - General Family Medicine 11/21/24 documented as of this encounter
--- OUTSIDE RECORDS SUMMARY | 2025-01-05 02:45 | XMS_ITS | Encounter Summary ---
Author Organization [employer] Address [address] [place] [address] Care Team Providers Care Corporate Travel Counselor Name Role Phone Hal Cole MD Primary Care Provider [phone] Encounter Details Date Type Department Care Team (Late st Contact Info) Description 09/15/2024 Lab Requisition [facility] - Main Lab [address] [place] [address] Hal Cole MD [address] [place] [address], [phone] Chronic obstructive pulmonary disease, unspecified (CMS/HCC) [...] AM EST) WBC 7.4 4.8 - 10.8 K/[facility] LAB HEMETOLOGY METHOD 09/15/2024 8:25 AM [facility] RBC 3.70(L) 3.80 - 4.80 M/mcL LAB HEMETOLOGY METHOD 09/15/2024 8:25 AM [facility] Hemoglobin 10.6(L) 11.5 - 16.0 g/dL LAB HEMETOLOGY METHOD 09/15/2024 8:25 AM [facility] Hematocrit 35.5 35.0 - 47.0 % LAB HEMETOLOGY METHOD 09/15/2024 8:25 AM [facility] MCV 95.4 79.0 - 98.0 FL LAB HEMETOLOGY METHOD 09/15/2024 8:25 AM [facility] MCH 28.5 27.0 - 32.0 pcg LAB HEMETOLOGY METHOD 09/15/2024 8:25 AM [facility] MCHC 29.9(L) 32.0 - 37.0 g/dL LAB HEMETOLOGY METHOD 09/15/2024 8:25 AM [facility] RDW 13.3 11.0 - 15.0 % LAB HEMETOLOGY METHOD 09/15/2024 8:25 AM [facility] Platelets 245 130 - 400 K/mcL LAB HEMETOLOGY METHOD 09/15/2024 8:25 AM [facility] MPV 9.5 7.0 - 11.0 FL LAB HEMETOLOGY METHOD 09/15/2024 8:25 AM [facility] NRBC 0.0 <1.0 % LAB HEMETOLOGY METHOD 09/15/2024 8:25 AM [facility] NRBC Absolute 0.00 <0.10 K/mcL LAB HEMETOLOGY METHOD 09/15/2024 8:25 AM [facility] Neutrophils Relative 73.5 % LAB HEMETOLOGY METHOD 09/15/2024 8:25 AM [facility] Lymphocytes Relative 14.3 % LAB HEMETOLOGY METHOD 09/15/2024 8:25 AM [facility] Monocytes Relative 6.0 % LAB HEMETOLOGY METHOD 09/15/2024 8:25 AM [facility] Eosinophils Relative 4.8 % LAB HEMETOLOGY METHOD 09/15/2024 8:25 AM [facility] Basophils Relative 0.7 % LAB HEMETOLOGY METHOD 09/15/2024 8:25 AM [facility] Immature Granulocytes Relative 0.7 % LAB HEMETOLOGY METHOD 09/15/2024 8:25 AM [facility] Neutrophils Absolute 5.41 1.50 - 7.00 K/mcL LAB HEMETOLOGY METHOD 09/15/2024 8:25 AM [facility] Lymphocytes Absolute 1.05 1.00 - 5.00 K/mcL LAB HEMETOLOGY METHOD 09/15/2024 8:25 AM [facility] Monocytes Absolute 0.44 0.20 - 1.00 K/mcL LAB HEMETOLOGY METHOD 09/15/2024 8:25 AM [facility] Eosinophils Absolute 0.35 0.00 - 0.50 K/mcL LAB HEMETOLOGY METHOD 09/15/2024 8:25 AM [facility] Basophils Absolute 0.05 0.00 - 0.20 K/mcL LAB HEMETOLOGY METHOD 09/15/2024 8:25 AM [facility] Immature Granulocytes Absolute 0.05(H) 0.00 - 0.03 K/mcL LAB HEMETOLOGY METHOD 09/15/2024 8:25 AM [facility] Blood Venous blood specimen / Unknown Venipuncture / Unknown 09/15/2024 5:17 AM EST 09/15/2024 8:04 AM EST us Hal Cole MD LAB BLOOD ORDERABLES Final Resul t [facility] [address] [place] [address], * (ABNORMAL) Basic metabolic panel (09/15/2024 5:17 AM EST) Sodium 141 133 - 145 mmol/L LAB CHEMISTRY METHOD 09/15/2024 9:01 AM [facility] Potassium 3.7 3.5 - 5.5 mmol/L LAB CHEMISTRY METHOD 09/15/2024 9:01 AM [facility] Chloride 104 96 - 110 mmol/L LAB CHEMISTRY METHOD 09/15/2024 9:01 AM [facility] CO2 32 21 - 32 mmol/L LAB CHEMISTRY METHOD 09/15/2024 9:01 AM [facility] Anion Gap 5 3 - 11 LAB CHEMISTRY METHOD 09/15/2024 9:01 AM [facility] Glucose 187(H) 70 - 100 mg/dL LAB CHEMISTRY METHOD 09/15/2024 9:01 AM [facility] BUN 57(H) 5 - 25 mg/dL LAB CHEMISTRY METHOD 09/15/2024 9:01 AM [facility] Creatinine 1.92(H) 0.50 - 1.10 mg/dL LAB CHEMISTRY METHOD 09/15/2024 9:01 AM [facility] eGFR 27(L) >=60 mL/min/1. 73m2 LAB CHEMISTRY METHOD 09/15/2024 9:01 AM [facility] Comment:Calculation based on the??Chronic Kidney Disease Epidemiology Collaboration (CKD-EPI) equation refit??without adjustment for race. BUN/Creatinine Ratio 29.7 LAB CHEMISTRY METHOD 09/15/2024 9:01 AM [facility] Calcium 8.4(L) 8.5 - 10.5 mg/dL LAB CHEMISTRY METHOD 09/15/2024 9:01 AM [facility] Blood Venous blood specimen / Unknown Venipuncture / Unknown 09/15/2024 5:17 AM EST 09/15/2024 8:04 AM EST us Hal Cole MD LAB BLOOD ORDERABLES Final Resul t [facility] [address] [place] [address], documented in this encounter Visit Diagnoses Diagnosis Chronic obstructive pulmonary disease, unspecified (CMS/HCC) documented in this encounter Care Teams Corporate Travel Counselor Relationship Specialty Start Date End Date Hal Cole MD [address] [place] [address], [phone] PCP - General Family Medicine 09/15/24 documented as of this encounter
--- OUTSIDE RECORDS SUMMARY | 2025-01-05 02:45 | XMS_ITS | Encounter Summary ---
Author Organization [employer] Address [address] [place] [address] Care Team Providers Care Cellophane Press Operator Name Role Phone Hal Cole MD Primary Care Provider [phone] Encounter Details Date Type Department Care Team (Late st Contact Info) Description 09/28/[address] [facility] - Main Lab [address] [facility] [place] [address] Hal Cole MD [address] [place] [address], [phone] Essential (primary) hypertension; Chronic obstructive pulmonary [...] LAB CHEMISTRY METHOD 09/28/2024 1:08 PM EST [facility] Blood Venous blood specimen / Unknown Venipuncture / Unknown 09/28/2024 7:04 AM EST 09/28/2024 11:03 AM EST Hal Cole MD LAB BLOOD ORDERABLES Final Resul t Performing Organization Address [facility]/ZIP Co de Phone Number [facility] [address] [place] [address], [place] [phone] * Free thyroxine with reflex to free triiodothyronine (09/28/2024 7:04 AM EST) Free T4 0.88 0.70 - 1.80 ng/dL LAB CHEMISTRY METHOD 09/28/2024 12:41 PM EST [facility] Blood Venous blood specimen / Unknown Venipuncture / Unknown 09/28/2024 7:04 AM EST 09/28/2024 11:03 AM EST Hal Cole MD LAB BLOOD ORDERABLES Final Resul t Performing Organization Address City/[facility]/ZIP Co de Phone Number [facility] [address] [place] [address], [place] [phone] * (ABNORMAL) Thyroid stimulating hormone with reflex to free t4 and free t3 (09/28/2024 7:04 AM EST) TSH 50.98(H) 0.40 - 4.00 mcIU/mL LAB CHEMISTRY METHOD 09/28/2024 12:[address] [facility] Blood Venous blood specimen / Unknown Venipuncture / Unknown 09/28/2024 7:04 AM EST 09/28/2024 11:03 AM EST us Hal Cole MD LAB BLOOD ORDERABLES Final Resul t [facility] [address] [place] [address], [place] [phone] * (ABNORMAL) Basic metabolic panel (09/28/2024 7:04 AM EST) Sodium 141 133 - 145 mmol/L LAB CHEMISTRY METHOD 09/28/2024 12:[address] [facility] Potassium 4.2 3.5 - 5.5 mmol/L LAB CHEMISTRY METHOD 09/28/2024 12:[address] [facility] Chloride 106 96 - 110 mmol/L LAB CHEMISTRY METHOD 09/28/2024 12:[address] [facility] CO2 29 21 - 32 mmol/L LAB CHEMISTRY METHOD 09/28/2024 12:[address] [facility] Anion Gap 6 3 - 11 LAB CHEMISTRY METHOD 09/28/2024 12:[address] [facility] Glucose 139(H) 70 - 100 mg/dL LAB CHEMISTRY METHOD 09/28/2024 12:[address] [facility] BUN 67(H) 5 - 25 mg/dL LAB CHEMISTRY METHOD 09/28/2024 12:[address] [facility] Creatinine 1.83(H) 0.50 - 1.10 mg/dL LAB CHEMISTRY METHOD 09/28/2024 12:[address] [facility] eGFR 28(L) >=60 mL/min/1. 73m2 LAB CHEMISTRY METHOD 09/28/2024 12:06 PM EST [facility] Comment:Calculation based on the??Chronic Kidney Disease Epidemiology Collaboration (CKD-EPI) equation refit??without adjustment for race. BUN/Creatinine Ratio 36.6 LAB CHEMISTRY METHOD 09/28/2024 12:[address] [facility] Calcium 8.3(L) 8.5 - 10.5 mg/dL LAB CHEMISTRY METHOD 09/28/2024 12:[address] [facility] Blood Venous blood specimen / Unknown Venipuncture / Unknown 09/28/2024 7:04 AM EST 09/28/2024 11:03 AM EST us Hal Cole MD LAB BLOOD ORDERABLES Final Resul t [facility] [address] [place] [address], [place] [phone] * (ABNORMAL) Complete blood count (09/28/2024 7:04 AM EST) WBC 7.1 4.8 - 10.8 K/mcL LAB HEMETOLOGY METHOD 09/28/2024 11:[address] [facility] RBC 3.70(L) 3.80 - 4.80 M/mcL LAB HEMETOLOGY METHOD 09/28/2024 11:[address] [facility] Hemoglobin 10.8(L) 11.5 - 16.0 g/dL LAB HEMETOLOGY METHOD 09/28/2024 11:[address] [facility] Hematocrit 36.0 35.0 - 47.0 % LAB HEMETOLOGY METHOD 09/28/2024 11:[address] [facility] MCV 96.5 79.0 - 98.0 FL LAB HEMETOLOGY METHOD 09/28/2024 11:[address] [facility] MCH 29.0 27.0 - 32.0 pcg LAB HEMETOLOGY METHOD 09/28/2024 11:31 AM EST [facility] MCHC 30.0(L) 32.0 - 37.0 g/dL LAB HEMETOLOGY METHOD 09/28/2024 11:[address] [facility] RDW 13.5 11.0 - 15.0 % LAB HEMETOLOGY METHOD 09/28/2024 11:[address] [facility] Platelets 214 130 - 400 K/mcL LAB HEMETOLOGY METHOD 09/28/2024 11:[address] [facility] MPV 9.9 7.0 - 11.0 FL LAB HEMETOLOGY METHOD 09/28/2024 11:[address] [facility] NRBC 0.0 <1.0 % LAB HEMETOLOGY METHOD 09/28/2024 11:[address] [facility] NRBC Absolute 0.00 <0.10 K/mcL LAB HEMETOLOGY METHOD 09/28/2024 11:[address] [facility] Blood Venous blood specimen / Unknown Venipuncture / Unknown 09/28/2024 7:04 AM EST 09/28/2024 11:03 AM EST us Hal Cole MD LAB BLOOD ORDERABLES Final Resul t [facility] [address] [place] [address], documented in this encounter Visit Diagnoses Diagnosis Essential (primary) hypertension Unspecified essential hypertension Chronic obstructive pulmonary disease, unspecified (CMS/HCC) documented in this encounter Care Teams Cellophane Press Operator Relationship Specialty Start Date End Date Hal Cole MD [address] [place] [address], [phone] PCP - General Family Medicine 09/15/24 documented as of this encounter
--- OUTSIDE RECORDS SUMMARY | 2025-01-05 02:45 | XMS_ITS ---
Author Organization [facility] Care Team Providers Care Doughnut Machine Operator Name Role Phone Hal Cole Unavailable Unavailable Carlee Amezcua Unavailable Allergies and adverse reactions Code CodeSystem Substance Reaction Severity StartDate Concern Status 2670 RXNORM Codeine Unknown 05/31/2019 active Care Team Name Role Address Phone Organization Dates Hal Cole PCP [address], [address], [place] (Office): : [facility] 05/31/2019 - 06/06/2019 Carlee Amezcua Attending Physician [address], [address], [facility] (Office): [facility] 05/31/2019 - 06/06/2019 Goals Section Description Status [...] 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 05/31/[id number] active 2 ACUTE KIDNEY FAILURE, UNSPECIFIED 05/31/[address] active 3 CHRONIC OBSTRUCTIVE PULMONARY DISEASE, UNSPECIFIED 05/31/[address] active 4 DYSPHAGIA, OROPHARYNGEAL PHASE 05/31/[address] active 5 ESSENTIAL (PRIMARY) HYPERTENSION 05/31/[address] active 6 HEART FAILURE, UNSPECIFIED 05/31/[address] active 7 HYPERLIPIDEMIA, UNSPECIFIED 05/31/[address] active 8 MORBID (SEVERE) OBESITY DUE TO EXCESS CALORIES 05/31/[address] active 9 OTHER SPECIFIED HYPOTHYROIDISM 05/31/[address] active 10 SHORTNESS OF BREATH 05/31/[address] active 11 TYPE 2 DIABETES MELLITUS WITHOUT COMPLICATIONS 05/31/[address] active Reason for Referral No Reasons for Referral Entered Social History Social History Observation Description Start Date End Date Code Code System Current Smoking Status Tobacco smoking consumption unknown 725744705 SNOMED CT Sex Assigned At Female 1945 97344-1 [facility] Vital Signs Code Code System Vitals Name Values and Units Timing Information 9279-1 [facility] Respiratory Rate Value=20.0 Units=/m in 06/06/2019 8462-4 [facility] Blood Pressure-Diastolic Value=71 Un its=mmHg 06/06/2019 8480-6 [facility] Blood Pressure-Systolic Sfzcd=306 Un its=mmHg 06/06/2019 8867-4 [facility] Heart rate Value=90.0 Units=/min 09/2019 65514-3 [facility] O2 % dC Oximetry Value=55.0 Units= % 06/06/2019 2339-0 [facility] Blood Sugar Tbpch=980.0 Units=mg/dL 06/06/2019 8310-5 [facility] Body Temperature Value=98.1 Units=?? F 06/05/2019 10561-7 [facility] Pain Level Value=1.0 06/05/2019 40447-0 [facility] Weight Vndsv=883.5 Units=Lbs 08/2019 8302-2 [facility] Height Value=64.0 Units=Inches 05/31/2019
--- OUTSIDE RECORDS SUMMARY | 2025-01-05 02:45 | XMS_ITS | Encounter Summary ---
Author Organization [employer] Address [address] [place] [address] Care Team Providers Care Airport Operations Duty Manager Name Role Phone Hal Cole MD Primary Care Provider [phone] Encounter Details Date Type Department Care Team (Late st Contact Info) Description 08/27/2024 Lab Requisition [facility] - Main Lab [address] [facility] [place] [address] Hal Cole MD [address] [place] [address], [phone] Type 2 diabetes mellitus without complications [...] Travel phlebotomy fee (08/29/2024 5:30 AM EST) [facility] HOME TRAVEL PHLEBOTOMY FEE Completed 08/29/2024 10:01 AM [facility] Blood Venous blood specimen / Unknown Venipuncture / Unknown 08/29/2024 5:30 AM EST 08/29/2024 9:51 AM EST us Hal Cole MD LAB BLOOD ORDERABLES Final Resul t [facility] [address] [place] [address], [place] [phone] * (ABNORMAL) Basic metabolic panel (08/29/2024 5:30 AM EST) [facility] Sodium 137 133 - 145 mmol/L LAB CHEMISTRY METHOD 08/29/2024 10:57 AM [facility] Potassium 5.0 3.5 - 5.5 mmol/L LAB CHEMISTRY METHOD 08/29/2024 10:57 AM [facility] Comment:Hemolysis present Chloride 101 96 - 110 mmol/L LAB CHEMISTRY METHOD 08/29/2024 10:57 AM [facility] CO2 29 21 - 32 mmol/L LAB CHEMISTRY METHOD 08/29/2024 10:57 AM [facility] Anion Gap 7 3 - 11 LAB CHEMISTRY METHOD 08/29/2024 10:57 AM [facility] Glucose 156(H) 70 - 100 mg/dL LAB CHEMISTRY METHOD 08/29/2024 10:57 AM [facility] BUN 62(H) 5 - 25 mg/dL LAB CHEMISTRY METHOD 08/29/2024 10:57 AM [facility] Creatinine 1.63(H) 0.50 - 1.10 mg/dL LAB CHEMISTRY METHOD 08/29/2024 10:57 AM [facility] eGFR 33(L) >=60 mL/min/1. 73m2 LAB CHEMISTRY METHOD 08/29/2024 10:57 AM [facility] Comment:Calculation based on the??Chronic Kidney Disease Epidemiology Collaboration (CKD-EPI) equation refit??without adjustment for race. BUN/Creatinine Ratio 38.0 LAB CHEMISTRY METHOD 08/29/2024 10:57 AM [facility] Calcium 8.8 8.5 - 10.5 mg/dL LAB CHEMISTRY METHOD 08/29/2024 10:57 AM [facility] Blood Venous blood specimen / Unknown Venipuncture / Unknown 08/29/2024 5:30 AM EST 08/29/2024 9:51 AM EST us Hal Cole MD LAB BLOOD ORDERABLES Final Resul t [facility] [address] [place] [address], * (ABNORMAL) Complete blood count (08/29/2024 5:30 AM EST) WBC 8.4 4.8 - 10.8 K/mcL LAB HEMETOLOGY METHOD 08/29/2024 10:59 AM [facility] RBC 4.00 3.80 - 4.80 M/mcL LAB HEMETOLOGY METHOD 08/29/2024 10:59 AM [facility] Hemoglobin 11.6 11.5 - 16.0 g/dL LAB HEMETOLOGY METHOD 08/29/2024 10:59 AM [facility] Hematocrit 39.0 35.0 - 47.0 % LAB HEMETOLOGY METHOD 08/29/2024 10:59 AM [facility] MCV 98.5(H) 79.0 - 98.0 FL LAB HEMETOLOGY METHOD 08/29/2024 10:59 AM [facility] MCH 29.3 27.0 - 32.0 pcg LAB HEMETOLOGY METHOD 08/29/2024 10:59 AM EST [facility] MCHC 29.7(L) 32.0 - 37.0 g/dL LAB HEMETOLOGY METHOD 08/29/2024 10:59 AM [facility] RDW 13.5 11.0 - 15.0 % LAB HEMETOLOGY METHOD 08/29/2024 10:59 AM [facility] Platelets 308 130 - 400 K/mcL LAB HEMETOLOGY METHOD 08/29/2024 10:59 AM [facility] MPV 9.9 7.0 - 11.0 FL LAB HEMETOLOGY METHOD 08/29/2024 10:59 AM [facility] NRBC 0.0 <1.0 % LAB HEMETOLOGY METHOD 08/29/2024 10:59 AM [facility] NRBC Absolute 0.00 <0.10 K/mcL LAB HEMETOLOGY METHOD 08/29/2024 10:59 AM [facility] Blood Venous blood specimen / Unknown Venipuncture / Unknown 08/29/2024 5:30 AM EST 08/29/2024 9:51 AM EST us Hal Cole MD LAB BLOOD ORDERABLES Final Resul t [facility] [address] [place] [address], documented in this encounter Visit Diagnoses Diagnosis Type 2 diabetes mellitus without complications (CMS/HCC) Chronic obstructive pulmonary disease, unspecified (CMS/HCC) documented in this encounter Care Teams Airport Operations Duty Manager Relationship Specialty Start Date End Date Hal Cole MD [address] [place] [address], [phone] PCP - General Family Medicine 09/15/24 documented as of this encounter
--- OUTSIDE RECORDS SUMMARY | 2025-01-05 02:45 | XMS_ITS | Clinical Summary ---
Author Organization [facility] Address [address] [place] [address] Phone Care Team Providers Care Atmospheric Physics Professor Name Role Phone Hal Cole MD Primary Care Provider [phone] Social History Tobacco Use Types Packs/Day Years [...] mmol/L LAB CHEMISTRY METHOD 09/28/2024 12:06 PM [facility] Potassium 4.2 3.5 - 5.5 mmol/L LAB CHEMISTRY METHOD 09/28/2024 12:06 PM [facility] Chloride 106 96 - 110 mmol/L LAB CHEMISTRY METHOD 09/28/2024 12:06 PM [facility] CO2 29 21 - 32 mmol/L LAB CHEMISTRY METHOD 09/28/2024 12:06 PM [facility] Anion Gap 6 3 - 11 LAB CHEMISTRY METHOD 09/28/2024 12:06 PM [facility] Glucose 139(H) 70 - 100 mg/dL LAB CHEMISTRY METHOD 09/28/2024 12:06 PM [facility] BUN 67(H) 5 - 25 mg/dL LAB CHEMISTRY METHOD 09/28/2024 12:06 PM [facility] Creatinine 1.83(H) 0.50 - 1.10 mg/dL LAB CHEMISTRY METHOD 09/28/2024 12:06 PM [facility] eGFR 28(L) >=60 mL/min/1. 73m2 LAB CHEMISTRY METHOD 09/28/2024 12:06 PM EST [facility] Comment:Calculation based on the??Chronic Kidney Disease Epidemiology Collaboration (CKD-EPI) equation refit??without adjustment for race. BUN/Creatinine Ratio 36.6 LAB CHEMISTRY METHOD 09/28/2024 12:06 PM EST [facility] Calcium 8.3(L) 8.5 - 10.5 mg/dL LAB CHEMISTRY METHOD 09/28/2024 12:06 PM EST [facility] Blood Venous blood specimen / Unknown Venipuncture / Unknown 09/28/2024 7:04 AM EST 09/28/2024 11:03 AM EST us Hal Cole MD LAB BLOOD ORDERABLES Final Resul t [facility] [address] [place] [address], from Last 3 Months or Most Recently Relevant to Health Maintenance Insurance MEDICAID - [place] MEDICARE Care Teams Atmospheric Physics Professor Relationship Specialty Start Date End Date Hal Cole MD [address] [place] [address] [address] [place], [address] PCP - General Family Medicine 09/15/24
--- OUTSIDE RECORDS SUMMARY | 2025-01-05 02:46 | XMS_ITS | Data Portability ---
Author Organization [facility] [email or web address] [facility], Main Office Address [address] [facility], [address] [place] [address] Care Team Providers Care Chemist Assistant Name Role Phone VALARIE JORDAN - 2ND FLOOR OTHER SHOBHA SMITH Primary Care Provider [phone] Assessment Encounter Date Assessment Date Assessment LastModified [...] By Organization Details Last Modified Time 09/06/2024 [id number] medicines to avoid with kidney disease: care instructions [email or web address] Not available 09/06/2024 14:42:44 09/08/2024 [id number] medicines to avoid with kidney disease: care instructions [email or web address] Not available 09/08/2024 13:56:49 Reason for Referral None Reported. Problems Name Problem SNOMED Code Status Onset Date Resolution Date Notes Provider Name and Address Organization Details Recorded Time Acute hypoxemic respirator y failure 686901133 Active 2023 ALLAN PRADHAN NP [address] [facility], [address], [place], [address], [facility] 4 10:51:05 Pneumonia 284627767 Active 2023 ALLAN PRADHAN NP [address] [facility], [address], [place], [address], [place] [facility] 4 10:51:21 Pleural effusion 01880517 Active 2023 ALLAN PRADHAN NP [address], [address], [place], [address], [facility] 4 10:51:43 Gastroesop hageal reflux disease without esophagiti s 782714512 Active 2023 ALLAN PRADHAN NP [address], [address], [place], [address], [facility] 4 10:53:46 Anxiety 24227518 Active 2023 ALLAN PRADHAN NP [address], [address], [place], [address], [facility] 4 11:00:09 Chronic kidney disease stage 3 668065484 Active 2023 ALLAN PRADHAN NP [address], [address], [place], [address], [facility] 4 11:21:29 Chronic pain syndrome 429676470 Active 2023 ALLAN PRADHAN NP [address], [address], [place], [address], [facility] 4 11:21:39 Acute nontraumat ic kidney injury 2166005696725 03 Active 2023 ALLAN PRADHAN NP [address], [address], [place], [address], [facility] 4 11:23:16 Left bundle branch block 79469766 Active 2023 ALLAN PRADHAN NP [address], [place], [address], [facility] 4 11:23:30 Pernicious anemia 42530054 Active 2023 ALLAN PRADHAN NP [address], [address], [place], [address], [facility] 4 11:23:46 Obstructiv e sleep apnea syndrome 74879922 Active 2023 ALLAN PRADHAN NP [address], [address], [place], [address], [facility] 4 11:47:23 Open wound 983045280 Active 2023 sacral ALLAN PRADHAN NP [address], [address], [place], [address], [facility] 4 12:05:33 Asthenia 57951516 Active 2023 ALLAN PRADHAN NP [address], [place], [address], [facility] 4 12:10:47 Diastolic heart failure 081198418 Active 2018 Hal Cole MD [address], [place], [address], [facility] 9 14:45:31 Dysphagia 91921431 Active 2018 Hal Cole MD [address], [address], [place], [address], [facility] 9 14:45:39 Chronic obstructiv e pulmonary disease 79265296 Active 2018 Hal Cole MD [address], [address], [place], [address], [facility] 9 14:45:48 Essential hypertensi on 12244312 Active 2018 Hal Cole MD [address], [address], [place], [address], [facility] 9 14:45:53 Diabetes mellitus 14716376 Active 2018 Hal Cole MD [address], [place], [address], [facility] 9 14:45:57 Hyperlipid emia 72996787 Active 2018 Hal Cole MD [address], [place], [address], [facility] 9 14:46:04 Obesity 745124328 Active 2018 Hal Cole MD [address], [place], [address], [facility] 9 14:46:12 Hypothyroi dism 51602747 Active 2018 Hal Cole MD [address] [facility], [address], [place], [address], [facility] 9 14:50:40 Problem Notes None recorded. Medical Equipment None Reported. Allergies Allergen ID Allergen Name Allergen Category Reaction Reaction Severity Criticality Documentation Date Start Date Code Code System Note Provider Name and Address Organization Details Recorded Time 93972 ibuprofen medicatio n Not available Not available Not available 08/11/2024 5640 RxNorm swell ing Not Available Not Available Not Available 37307 codeine medicatio n Not available Not available [...] mm[Hg] 86 mm[Hg] ALLAN PRADHAN NP [address] [facility] [address], [place], [address] , [facility] 4 14:03:04 Date Recorded Heart rate Respiratory rate Body temperature Oxygen saturation Oxygen saturation in Arterial blood by Pulse oximetry Systolic blood pressure Diastolic blood pressure Provider Name and Address Organization Details Last Updated DateTime 4 74 /min 18 /min 99 [degF] 98 % 98 % 130 mm[Hg] 74 mm[Hg] ALLAN PRADHAN NP [address] [facility], [address], [place], [address] , [facility] 4 13:48:17 Date Recorded Body weight Heart rate Respiratory rate Body temperature Oxygen saturation Oxygen saturation in Arterial blood by Pulse oximetry Systolic blood pressure Diastolic blood pressure Provider Name and Address Organization Details Last Updated DateTime 4 44840.1 4 g 69 /min 16 /min 98.3 [degF] 97 % 97 % 134 mm[Hg] 64 mm[Hg] Eloina Odom NP [address] [facility] [address], [place], [address], [facility] 4 09:02:44 Date Recorded Body height Body mass index (BMI) Body weight Heart rate Respiratory rate Body temperature Oxygen saturation Oxygen saturation in Arterial blood by Pulse oximetry Inhaled oxygen flow rate Systolic blood pressure Diastolic blood pressure Provider Name and Address Organization Details Last Updated DateTime 4 167.64 cm 32.9 kg/m2 17442.1 3 g 72 /min 18 /min 97.5 [degF] 97 % 97 % 2 L/min 129 mm[Hg] 76 mm[Hg] Carlee Amezcua MD [address] [facility] [address], [place], [address], [facility] 4 22:10:41 Date Recorded Body height Body weight Body mass index (BMI) Heart rate Respiratory rate Body temperature Oxygen saturation Oxygen saturation in Arterial blood by Pulse oximetry Systolic blood pressure Diastolic blood pressure Provider Name and Address Organization Details Last Updated DateTime 4 167.64 cm 74843.2 5 g 32.8 kg/m2 74 /min 16 /min 97.9 [degF] 95 % 95 % 133 mm[Hg] 72 mm[Hg] Eloina Odom NP [address] [facility] [address], [place], [address], [facility] 4 08:16:49 Social History Question Answer Notes LastModified by Organizat ion Details LastModified Time Tobacco Smoking Status Former Smoker Not Available [employer] 08/21/2020 03:13:21 Do You Have An Advance Directive? No Full Code [id number] Information not available 08/21/2020 What Is Your Level Of Alcohol Consumption? None [email or web address] Information not available 08/11/2024 What Is Your Code Status? Full Code Information not available 09/01/2024 Do You Have A Medical Power Of Sample Stitcher? Yes Has HCP Information not available 08/11/2024 What Was The Date Of Your Most Recent Tobacco Screening? 08/11/2024 [email or web address] Information not available 08/11/2024 Do You Have An Out Of Hospital DNR? Yes [email or web address] Information not available 09/01/2024 How Much Tobacco Do You Smoke? 1.5 PPD [id number] Information not available 08/21/2020 Do You Use Any Illicit Or Recreational Drugs? No Information not available 08/11/2024 Has Tobacco Cessation Counseling Been Provided? No [email or web address] Information not available 08/11/2024 How Many Years Have You Smoked Tobacco? 25 [id number] Information not available 08/21/2020 Do You Or Have You Ever Used Any Other Forms Of Tobacco Or Nicotine? No [email or web address] Information not available 08/11/2024 Sex: Unknown Functional Status None recorded. Mental Status None recorded. Family History Relationship Description Onset Age of this Age Resolved Age Notes LastModified by Organization Details LastModified Time Father Disorder of cardiovascul ar system [email or web address] Not available 2023 11:24:15 Medical History No medical history recorded. Gynecological HistoryNo gynecological history recorded. Obstetrics History GPAL:G 0 P 0 0 0 0 Immunizations Vaccine Type Date Status Note Provider Nam e and Address Organization Details Recorded Time influenza, unspecified formulation 11/10/2021 completed Jessica gonsalez [place] - [facility] 08/10/2024 14:21:03 Past Encounters Encounter ID Performer Location Encounter Start Date Encounter Closed Date Diagnosis/Indication Diagnosis SNOMED-CT Code Diagnosis ICD10 Code Diagnosis Note [id number] MD ARMEN Urrutia [address] [place] [address] [place] [address] 06/01/2019 14:38:26 06/08/2019 15:41:33 Acute hypoxemic respiratory failure 122472505 J96.01 see HPIseconda ry to aspiration dx with dysphagiaC HF exacerbati on with recent dx of diastolic CHFmonitor respirator y functionto be scheduled for sleep study due to concern for OSAtitrate O2 in patient with baseline COPD Diastolic heart failure 320917098 I50.33 see HPIappears chronicall y ill due to multiple co-morbid conditions recent dx with diuresis of 18 liters at prior hospitaliz ationnow onlasix 40 mg bidmonitor weights and fluid statusmoni tor respirator y and renal functionti trate medication s prn Dysphagia 13043264 R13.1 2 see HPIeval by speechnow on ground mech soft dietrepeat speech eval prn Chronic ob structive pulmonary disease 87244377 J41.1 hx tobacco quit > 30 yrs priormonit or respirator y functionto be scheduled for sleep study with concern for OSApulmona ry consult prn Essential hypertension 45563229 I10 norvasc 5 mg qdlasix 40 mg bidmonitor bp and renal function Asthenia 63145591 R53.1 PT OT eval and treatmonit or fall risk Diabetes mellitus 457729 09 E11.9 hx of DMonmetfor min 1000 mg bid with 500 mg q noonglipiz nneka 5 mg bidinsulin SSmonitor blood glucose Hypothyroidism 74982821 E03.8 synthroid 200 mcg qdmonitor tsh prn Hyperlipidemia 38182026 E78.49 gemfibrozi l 600 mg bidlipitor 40 mg qd continue Obesity 806424844 E66.01 dietary eval at baseline [id number] [address] [facility] [address] [place] [address] 06/06/2019 11:35:48 06/08/2019 16:08:53 Hypoxia 478692352 R09.02 send to ER for this d/t sat 50% on O2 with chest pain. Acute kidney injury 1466 9001 N17.9 likely d/t overdiures is. had been on lasix 40 bid, sending to ER, may need this held. Acute hypo xemic respiratory failure 332405962 J96.01 see HPIseconda ry to aspiration dx with dysphagiaC HF exacerbati on with recent dx of diastolic CHFmonitor respirator y functionto be scheduled for sleep study due to concern for OSAtitrate O2 in patient with baseline COPD Diastolic heart failure 993279258 I50.33 see HPIappears chronicall y ill due to multiple co-morbid conditions recent dx with diuresis of 18 liters at prior hospitaliz ationhere was on:lasix 40 mg bid*Now appearing dry- may need to hold diuretics at hospital. Dysphagia 01810687 R13.1 2 see HPIeval by speechnow on ground [facility] soft dietrepeat speech eval prn Chronic ob structive pulmonary disease 03556797 J41.1 hx tobacco quit > 30 yrs priorsendi ng to ER for hypoxia, chest pain, ARF [id number] ALLAN PRADHAN NP [facility] [address] [address] 08/11/2024 10:50:24 08/15/2024 09:32:52 Acute hypoxemic respiratory failure 660393476 J96.01 [place] related to COPD and acute on chronic CHF.Respon ded well to interventi ons in hosp.Chuck nue O2 @ 2L - chronic use.Contin ue inhalers for COPD, bumex for CHF.Monito r closely Chronic ob structive pulmonary disease 28699132 J41.1 Treated for exac. in hosp. with nebs and steroids with improvemen t.Continue O2 - uses 2L chronicall y at home.Chuck nue:duoneb prnalbuter ol MDI prn - at bedside for self administra tion.Monit or sats, resp. status for change. Pneumonia 235241148 J18. 9 Treated with ceftriaxon e and azithromyc in x 7 days with improvemen t, transition ed to Augmentin 875 mg bid x 3d and Doxy 100 mg bid x 3d upon d/c to complete a 10 day course of tx.Monitor resp. sx. Diastolic heart failure 090313309 I50.33 Treated with IV lasix in hosp., changed back to bumex 2 mg qd with improvemen t in condition. Continue bumexHeart healthy/lo w salt dietDaily VS and weightsLab s q mond. x 3Follow for decompensa tion Pleural effusion 4914366 8 J90 s/p thoracente sismonitor Diabetes mellitus 987969 09 E11.9 A1C 7.6%Contin ue home meds:basag lar 15 units qdjardianc e 10 mg qdlispro SSICarb control dietAdjust meds prn Essential hypertension 55274142 I10 Continue home meds:norva sc 10 mg qdbumex 2 mg qdMoniotor VS, labs, adjust meds prn Hyperlipidemia 89439848 E78.49 continue atorvastat in 40 mg qdgemfibro zil stopped due to interventi on with lipitor LF Ts WNRLipid panel if stays snf Hypothyroidism 46970144 E03.8 Continue levothyrox ine 200 mcg qdTSH, FT4 prn Gastroesop hageal reflux disease without esophagitis 770988668 K21.9 ??started omeprazole 20 mg qd while in the hospitalmo nitor GI sx.conside r stopping in 6 wks. if no sx. Anxiety 76605402 F41.9 Continue home meds:cymba lta 20 mg qdativan 0.5 mg tid prn (x14d, then re-eval)Ps ych referral PRNMonitor mood, behaviors Chronic ki dney disease stage 3 923387036 N18.30 Monitor labs - BMP q mond. x 3Maintain hydrationA void nephrotoxi cs Chronic pain syndrome 37 2864816 G89.4 Continue:c ymbalta 20 mg qdoxycodon e 5 mg q8 hr prnPt. states chronic low back pain, knee pain, and sacral pain due to a fractured tailbone at 20 yrs. of age) Obstructiv e sleep apnea syndrome 24590155 G47.33 Per pt.Does not use CPAP, instead wears O2 2L RTC at home. Asthenia 51288503 R53.1 Deconditio rosana due to hospitaliz ation and chronic medical conditions .PT OT eval and tx.Goal is to return home. Open wound 448553377 T14 .8XXA Open wound sacral area - [...] with minerals dailyDieta ry supplement s per kaiawhina Concern of potential breakdown on heels as does not allow pillow under legs to float heels due to chronic sacral pain from old fracture. Can try heel boots if cyndi. to help reduce pressure as well as skin prep qd.Monitor closely. [id number] Hal Cole MD [address] [address] 08/15/2024 12:44:18 08/17/2024 11:09:33 Asthenia 22110007 R53.1 PT OT Eval and treatmonit or fall risk and need for increased support in community Acute hypo xemic respiratory failure 658129306 J96.01 see HPI due to CHF, COPD, pneumoniao n O2 at baselinemo nitor respirator y status and need to repeat imaging Chronic ob structive pulmonary disease 27293685 J44.1 On O2 at baselineco mpleted steroid coursecont inue outpatient medsmonito r respirator y status Pneumonia 056093903 J15. 8 see HPI now to complete doxy and augmentinm onitor need to reimage Diastolic heart failure 746966410 I50.33 required IV lasix in hospital now onbumex 2 mg qdmonitor respirator y and fluid statusnote d ARF on CRF Diabetes mellitus 138298 09 E11.9 continue out patient medsmonito r need to titrate Hyperlipidemia 82870970 E78.49 medication s adjusted in hospital now onlipitor 40 mg qd Hypothyroidism 18984696 E03.8 synthroid 200 mcg qdtsh prn Gastroesop hageal reflux disease without esophagitis 913622298 K21.9 recently started on PPImonitor need to continuetr ial off in 2-4 weeks Acute kidney injury 1466 9001 N17.8 ARF on CRFmonitor renal functionav oid nephrotoxi c meds as ablenephro consult prn [id number] ALLAN PRADHAN NP [address] [address] 08/16/2024 11:32:50 08/24/2024 10:16:43 Asthenia 44868117 R53.1 Deconditio rosana due to hospitaliz ation and chronic medical conditions .Continue PT OT eval and tx.Goal is to return home. Acute hypo xemic respiratory failure 436499206 J96.01 [place] related to COPD and acute on chronic CHF.Respon ded well to interventi ons in hosp.Chuck nue O2 @ 2L - chronic use.Contin ue inhalers for COPD, bumex for CHF.Monito r closely Chronic ob structive pulmonary disease 33686611 J41.1 Treated for exac. in hosp. with nebs and steroids with improvemen t.Continue O2 - uses 2L chronicall y at home.Chuck nue:duoneb prnalbuter ol MDI prn - at bedside for self administra tion.Monit or sats, resp. status for change. Pneumonia 952817460 J18. 9 Treated with ceftriaxon e and azithromyc in x 7 days with improvemen t, transition ed to Augmentin 875 mg bid x 3d and Doxy 100 mg bid x 3d upon d/c to complete a 10 day course of tx.Monitor resp. sx. Diastolic heart failure 006028428 I50.33 Treated with IV lasix in hosp., changed back to bumex 2 mg qd with improvemen t in condition. Continue bumexHeart healthy/lo w salt dietDaily VS and weights (reminded nursing of daily weights and record)Lab s q mond. x 3Follow for decompensa tion Pleural effusion 9391148 8 J90 s/p thoracente sismonitor Chronic ki dney disease stage 3 168230742 N18.30 Monitor labs - BMP q mond. x 3Maintain hydrationA void nephrotoxi cs Diabetes mellitus 489955 09 E11.9 A1C 7.6%BS mostly 100sContin ue home meds:basag lar 15 units qdjardianc e 10 mg qdlispro SSICarb control dietAdjust meds prn Essential hypertension 56457551 I10 Continue home meds:norva sc 10 mg qdbumex 2 mg qdMoniotor VS, labs, adjust meds prn Hyperlipidemia 61848106 E78.49 continue atorvastat in 40 mg qdgemfibro zil stopped due to interventi on with lipitor LF Ts WNRLipid panel if stays snf Hypothyroidism 99486360 E03.8 Continue levothyrox ine 200 mcg qdTSH, FT4 prn Gastroesop hageal reflux disease without esophagitis 631762630 K21.9 ??started omeprazole 20 mg qd while in the hospitalmo nitor GI sx.conside r stopping in 6 wks. if no sx. Anxiety 55156851 F41.9 Continue home meds:cymba lta 20 mg qdativan 0.5 mg tid prn (x14d, then re-eval)Ps ych referral PRNMonitor mood, behaviors Chronic pain syndrome 37 0295451 G89.4 Continue:c ymbalta 20 mg qdoxycodon e 5 mg q8 hr prnPt. states chronic low back pain, knee pain, and sacral pain due to a fractured tailbone at 20 yrs. of age) Obstructiv e sleep apnea syndrome 28857918 G47.33 Per pt.Does not use CPAP, instead wears O2 2L RTC at home. Open wound 296300079 T14 .8XXA Open wound sacral area - developed in hosp.Suspe ct started first as MASD due to chronic incontinen ce, now with opening in skin.Plan -Continue: Triad cream q shift and prnPressur e relief as much as possibleRe ferred to Wound PA-CMVI with minerals daily addedDieta ry supplement s per kaiawhina - currently on glucerna bid. Concern of potential breakdown on heels as does not allow pillow under legs to float heels due to chronic sacral pain from old fracture. Can try heel boots if cyndi. to help reduce pressure as well as skin prep qd.Monitor closely. [id number] ALLAN PRADHAN NP [facility] [address] [address] 08/23/2024 10:50:36 08/24/2024 10:28:22 Asthenia 68503948 R53.1 Deconditio rosana due to hospitaliz ation and chronic medical conditions .PT OT eval and tx., making gains.Goal is to return home. Acute hypo xemic respiratory failure 718194522 J96.01 [place] related to COPD and acute on chronic CHF.Respon ded well to interventi ons in hosp., currently stable.Con tinue O2 @ 2L - chronic use.Contin ue inhalers for COPD, bumex for CHF.Monito r closely Chronic ob structive pulmonary disease 62792074 J41.1 Treated for exac. in hosp. with nebs and steroids with improvemen t.Continue O2 - uses 2L chronicall y at home.Chuck nue:duoneb prnalbuter ol MDI prn - at bedside for self administra tion.Monit or sats, resp. status for change. Pneumonia 405822783 J18. 9 Treated with ceftriaxon e and azithromyc in x 7 days with improvemen t, transition ed to Augmentin 875 mg bid x 3d and Doxy 100 mg bid x 3d upon d/c to complete a 10 day course of tx.Resolvi ng, continue to monitor resp. sx. Diastolic heart failure 528237766 I50.33 Treated with IV lasix in hosp., changed back to bumex 2 mg qd with improvemen t in condition. Continue bumexHeart healthy/lo w salt dietDaily VS and weights (reminded nursing again of daily weights and record)Lab s q mond. x 3Follow for decompensa tion Pleural effusion 6444280 8 J90 s/p thoracente sismonitor Chronic ki dney disease stage 3 198321058 N18.30 Monitor labs - BMP q mond. x 2 more timesMaint ain hydrationA void nephrotoxi cs Diabetes mellitus 700224 09 E11.9 A1C 7.6%BS mostly 100sContin ue home meds:basag lar 15 units qdjardianc e 10 mg qdlispro SSICarb control dietAdjust meds prn Essential hypertension 06136331 I10 Continue home meds:norva sc 10 mg qdbumex 2 mg qdMoniotor VS, labs, adjust meds prn Hyperlipidemia 35308689 E78.49 continue atorvastat in 40 mg qdgemfibro zil stopped due to interventi on with lipitor LF Ts WNRLipid panel if stays snf Hypothyroidism 63429852 E03.8 Continue levothyrox ine 200 mcg qdTSH, FT4 prn Gastroesop hageal reflux disease without esophagitis 690983607 K21.9 ??started omeprazole 20 mg qd while in the hospitalmo nitor GI sx.conside r stopping in 6 wks. if no sx. Anxiety 86784356 F41.9 Continue home meds:cymba lta 20 mg qdativan 0.5 mg tid prn (x14d, then re-eval)Ps [facility] referral PRNMonitor mood, behaviors Chronic pain syndrome 37 2776120 G89.4 Continue:c ymbalta 20 mg qdoxycodon e 5 mg q8 hr prnPt. states chronic low back pain, knee pain, and sacral pain due to a fractured tailbone at 20 yrs. of age) Obstructiv e sleep apnea syndrome 78239705 G47.33 Per pt.Does not use CPAP, instead wears O2 2L RTC at home. Open wound 271884554 T14 .8XXA Open wound sacral area - developed in hosp.Sus[place] ct started first as MASD due to chronic incontinen ce, now with opening in skin.Plan -Continue: Triad cream q shift and prnPressur e relief as much as possibleRe ferred to Wound PA-CMVI with minerals daily addedDieta ry supplement s per kaiawhina - currently on glucerna bid. Concern of potential breakdown on heels as does not allow pillow under legs to float heels due to chronic sacral pain from old fracture. Can try heel boots if cyndi. to help reduce pressure as well as skin prep qd.Monitor closely. Constipation 45132459 K5 9.00 discussed with VALENTIN, last BM 3 days ago.add miralax daily, start today.enco urage OOB, fiber, fluids [id number] ALLAN PRADHAN, CHIO [facility] [address] [address] 09/01/2024 12:36:05 09/02/2024 11:15:18 Asthenia 06950765 R53.1 Deconditio rosana due to hospitaliz ation and chronic medical conditions .PT OT eval and tx., making gains.Goal is to return home. Acute hypo xemic respiratory failure 026349021 J96.01 [place] related to COPD and acute on chronic CHF.Respon ded well to interventi ons in hosp., currently stable.Con tinue O2 @ 2L - chronic use.Contin ue inhalers for COPD, bumex for CHF.Monito r closely Chronic ob structive pulmonary disease 57600688 J41.1 Treated for exac. in hosp. with nebs and steroids with improvemen t.Continue O2 - uses 2L chronicall y at home.Chuck nue:duoneb prnalbuter ol MDI prn - at bedside for self administra tion.Monit or sats, resp. status for change. Pneumonia 478616245 J18. 9 Treated with ceftriaxon e and azithromyc in x 7 days with improvemen t, transition ed to Augmentin 875 mg bid x 3d and Doxy 100 mg bid x 3d upon d/c to complete a 10 day course of tx.Resolvi ng, continue to monitor resp. sx. Diastolic heart failure 117738728 I50.33 Treated with IV lasix in hosp., changed back to bumex 2 mg qd with improvemen t in condition. Continue bumexHeart healthy/lo w salt dietDaily VS and weights (reminded nursing AGAIN of daily weights and record)Lab s q mond. x 3Follow for decompensa tion Pleural effusion 0926615 8 J90 s/p thoracente sismonitor Chronic ki dney disease stage 3 782203926 N18.30 Monitor labs - BMP q mond. x 2 more timesMaint ain hydrationA void nephrotoxi cs Diabetes mellitus 136990 09 E11.9 A1C 7.6%BS mostly 100sContin ue home meds:basag lar 15 units qdjardianc e 10 mg qdlispro SSICarb control dietAdjust meds prn Essential hypertension 87444634 I10 Continue home meds:norva sc 10 mg qdbumex 2 mg qdMoniotor VS, labs, adjust meds prn Hyperlipidemia 40696363 E78.49 continue atorvastat in 40 mg qdgemfibro zil stopped due to interventi on with lipitor LF Ts WNRLipid panel if stays snf Hypothyroidism 09336457 E03.8 Continue levothyrox ine 200 mcg qdTSH, FT4 prn Gastroesop hageal reflux disease without esophagitis 641098890 K21.9 ??started omeprazole 20 mg qd while in the hospitalmo nitor GI sx.conside r stopping in 6 wks. if no sx. Anxiety 23045209 F41.9 Continue home meds:cymba lta 20 mg qdativan 0.5 mg tid prn (x14d, then re-eval)Ps h referral PRNMonitor mood, behaviors Chronic pain syndrome 37 4461881 G89.4 Continue:c ymbalta 20 mg qdoxycodon e 5 mg q8 hr prnPt. states chronic low back pain, knee pain, and sacral pain due to a fractured tailbone at 20 yrs. of age) Obstructiv e sleep apnea syndrome 07566541 G47.33 Per pt.Does not use CPAP, instead wears O2 2L RTC at home. Open wound 574214690 T14 .8XXA Open wound sacral area - developed in hosp.Sus[place] ct started first as MASD due to chronic incontinen ce, now with opening in skin.Plan -Continue: Triad cream q shift and prnPressur e relief as much as possibleRe ferred to Wound PA-CMVI with minerals daily addedDieta ry supplement s per kaiawhina - currently on glucerna bid. Concern of potential breakdown on heels as does not allow pillow under legs to float heels due to chronic sacral pain from old fracture. Can try heel boots if cyndi. to help reduce pressure as well as skin prep qd.Monitor closely. Constipation 50479604 K5 9.00 Bowels still sluggishAl ready on miralax, now add senna-s 2 tabs daily, hold for loose stool.enco urage OOB, fiber, fluidsCont inue to monitor and adjust. [id number] [facility] [address] 09/06/2024 14:01:29 09/07/2024 10:12:43 Asthenia [id number] R53.1 Deconditio rosana due to hospitaliz ation and chronic medical conditions .PT OT eval and tx., making gains.Goal is to return home. Acute hypo xemic respiratory failure 275236348 J96.01 Bellaire related to COPD and acute on chronic CHF.Respon ded well to interventi ons in hosp., currently stable.Con tinue O2 @ 2L - chronic use.Contin ue inhalers for COPD, bumex for CHF.Monito r closely Chronic ob structive pulmonary disease 71140773 J41.1 Treated for exac. in hosp. with nebs and steroids with improvemen t.Continue O2 - uses 2L chronicall y at home.Chuck nue:duoneb prnalbuter ol MDI prn - at bedside for self administra tion.Monit or sats, resp. status for change. Pneumonia 376937372 J18. 9 Treated with ceftriaxon e and azithromyc in x 7 days with improvemen t, transition ed to Augmentin 875 mg bid x 3d and Doxy 100 mg bid x 3d upon d/c to complete a 10 day course of tx.Resolvi ng, continue to monitor resp. sx. Diastolic heart failure 131437430 I50.33 Treated with IV lasix in hosp., changed back to bumex 2 mg qd with improvemen t in condition. Continue bumexHeart healthy/lo w salt dietDaily VS and weights (reminded nursing AGAIN of daily weights and record)CBC , BMP in am x 1Follow for decompensa tion Pleural effusion 9720197 8 J90 s/p thoracente sismonitor Chronic ki dney disease stage 3 414493851 N18.30 Monitor labs - BMP x 1 in amMaintain hydrationA void nephrotoxi cs Diabetes mellitus 236530 09 E11.9 A1C 7.6%BS mostly 100s - 200sContin ue home meds:basag lar 15 units qdjardianc e 10 mg qdlispro SSICarb control dietAdjust meds prn Essential hypertension 30525620 I10 Continue home meds:norva sc 10 mg qdbumex 2 mg qdMoniotor VS, labs, adjust meds prn Hyperlipidemia 81346220 E78.49 continue atorvastat in 40 mg qdgemfibro zil stopped due to interventi on with lipitor LF Ts WNRLipid panel if stays snf Hypothyroidism 68492124 E03.8 Continue levothyrox ine 200 mcg qdTSH, FT4 prn Gastroesop hageal reflux disease without esophagitis 516774417 K21.9 ??started omeprazole 20 mg qd while in the hospitalmo nitor GI sx.conside r stopping in 6 wks. if no sx. Anxiety 98434086 F41.9 Continue home meds:cymba lta 20 mg qdativan 0.5 mg tid prn (x14d, then re-eval)Ps h referral PRNMonitor mood, behaviors Chronic pain syndrome 37 4034403 G89.4 Continue:c ymbalta 20 mg qdoxycodon e 5 mg q8 hr prnPt. states chronic low back pain, knee pain, and sacral pain due to a fractured tailbone at 20 yrs. of age) Obstructiv e sleep apnea syndrome 74977064 G47.33 Per pt.Does not use CPAP, instead wears O2 2L RTC at home. Open wound 661758455 T14 .8XXA Open wound sacral area - [...] minerals daily addedDieta ry supplement s per kaiawhina - currently on glucerna bid. Concern of potential breakdown on heels as does not allow pillow under legs to float heels due to chronic sacral pain from old fracture. Can try heel boots if cyndi. to help reduce pressure as well as skin prep qd.Monitor closely. Constipation 50625698 K5 9.00 No BM since 08/31 if documentat ion correct.TN N bowel meds not used.Curre ntly on miralax daily.Torrey a-s 2 tabs bid ordered 09/01, currently not on MARAbdomen distended. Plan -Fleets nowMag Citrate 1/2 bottle today, repeat 1/2 bottle in am if poor results.In crease miralax to bidRe-orde r senna-s 2 tabs bid, hold for loose stoolMonit or closely.en courage OOB, fiber, fluidsCont inue to monitor and adjust. [id number] ALLAN PRADHAN NP [address] [address] 09/08/2024 13:47:32 09/09/2024 11:13:19 Constipation 51052168 K59.00 No BM since 08/31 if documentat ion correct.TN N bowel meds had not been utilized. Mag Citrate and fleets ordered with very good results. Now on:Miralax bidSenna-s 2 tabs bid Plan -Continue current laxativesE ncourage OOB, fiber, fluidsCont inue to monitor closely and adjust PRN Asthenia 30199241 R53.1 Deconditio rosana due to hospitaliz ation and chronic medical conditions .PT OT eval and tx., making gains.Goal is to return home. Open wound 670494152 T14 .8XXA Open wound sacral area - [...] minerals daily addedDieta ry supplement s per kaiawhina - currently on glucerna bid. Concern of potential breakdown on heels as does not allow pillow under legs to float heels due to chronic sacral pain from old fracture. Can try heel boots if cyndi. to help reduce pressure as well as skin prep qd.Monitor closely. Acute hypo xemic respiratory failure 654009298 J96.01 [place] related to COPD and acute on chronic CHF.Respon ded well to interventi ons in hosp., currently stable.Con tinue O2 @ 2L - chronic use.Contin ue inhalers for COPD, bumex for CHF.Monito r closely Chronic ob structive pulmonary disease 15546157 J41.1 Treated for exac. in hosp. with nebs and steroids with adamaris t.Continue O2 - uses 2L chronicall y at home.Chuck nue:duoneb prnalbuter ol MDI prn - at bedside for self administra tion.Monit or sats, resp. status for change. Pneumonia 759011152 J18. 9 Treated with ceftriaxon e and azithromyc in x 7 days with adamaris t, transition ed to Augmentin 875 mg bid x 3d and Doxy 100 mg bid x 3d upon d/c to complete a 10 day course of tx.Resolvi ng, continue to monitor resp. sx. Diastolic heart failure 433604538 I50.33 Treated with IV lasix in hosp., changed back to bumex 2 mg qd with adamaris t in condition. Continue bumexHeart healthy/lo w salt dietDaily VS and weights (reminded nursing AGAIN of daily weights and record)CBC , BMP in am x 1Follow for decompensa tion Pleural effusion 2388262 8 J90 s/p thoracente sismonitor Chronic ki dney disease stage 3 282289759 N18.30 Monitor labs - BMP x 1 in amMaintain hydrationA void nephrotoxi cs Diabetes mellitus 063002 09 E11.9 A1C 7.6%BS mostly 100s - 200sContin ue home meds:basag lar 15 units qdjardianc e 10 mg qdlispro SSICarb control dietAdjust meds prn Essential hypertension 97577750 I10 Continue home meds:norva sc 10 mg qdbumex 2 mg qdMoniotor VS, labs, adjust meds prn Hyperlipidemia 09450514 E78.49 continue atorvastat in 40 mg qdgemfibro zil stopped due to interventi on with lipitor LF Ts WNRLipid panel if stays intermediate frame tender Hypothyroidism 49529278 E03.8 Continue levothyrox ine 200 mcg qdTSH, FT4 prn Gastroesop hageal reflux disease without esophagitis 803653541 K21.9 ??started omeprazole 20 mg qd while in the hospitalmo nitor GI sx.conside r stopping in 6 wks. if no sx. Anxiety 09747201 F41.9 Continue home meds:cymba lta 20 mg qdativan 0.5 mg tid prn (x14d, then re-eval)Ps ych referral PRNMonitor mood, behaviors Chronic pain syndrome 37 1268052 G89.4 Continue:c ymbalta 20 mg qdoxycodon e 5 mg q8 hr prnPt. states chronic low back pain, knee pain, and sacral pain due to a fractured tailbone at 20 yrs. of age) Obstructiv e sleep apnea syndrome 81721892 G47.33 Per pt.Does not use CPAP, instead wears O2 2L RTC at home. [id number] [facility] [address] 09/14/2024 09:01:39 09/15/2024 09:07:05 Constipation 90768302 K59.00 resolvedMa g Citrate and fleets ordered with very good results.Miralax daily09/14 change Senna-s 2 tabs from bid to dailyEncou rage OOB, fiber, fluidsCont inue to monitor closely and adjust PRN Asthenia 15942247 R53.1 Deconditio rosana due to hospitaliz ation and chronic medical conditions .PT OT eval and tx., making gains.Goal is to return home. Open wound 656954141 T14 .8XXA Open wound sacral area - [...] with minerals dailyDieta ry supplement s per kaiawhina - currently on glucerna bid. Concern of potential breakdown on heels as does not allow pillow under legs to float heels due to chronic sacral pain from old fracture. Can try heel boots if cyndi. to help reduce pressure as well as skin prep qd.Monitor closely. Acute hypo xemic respiratory failure 115561528 J96.01 [place] related to COPD and acute on chronic CHF.Respon ded well to interventi ons in hosp., currently stable.Con tinue O2 @ 2L - chronic use.Contin ue inhalers for COPD, bumex for CHF.Monito r closely Chronic ob structive pulmonary disease 46839664 J41.1 Treated for exac. in hosp. with nebs and steroids with adamaris wright.Continue O2 - uses 2L chronicall y at home.Chuck nue:duoneb prnalbuter ol MDI prn - at bedside for self administra tion.Monit or sats, resp. status for change. Pneumonia 044809439 J18. 9 resolvedTr eated with ceftriaxon e and azithromyc in x 7 days with adamaris wright, transition ed to Augmentin 875 mg bid x 3d and Doxy 100 mg bid x 3d upon d/c to complete a 10 day course of tx.Resolvi ng, continue to monitor resp. sx.monitor for need to repeat cxr if resp symptoms persist/re turn Diastolic heart failure 026790716 I50.33 Treated with IV lasix in hosp.,harding gethien back to bumex 2 mg qd with adamaris wright in condition. Heart healthy/lo w salt dietDaily VS and weightspt currently 218, will need another weight(8 lb increase since admit)nsg awareFollo w for decompensa tionmonito rbmp and cbc maggi 09/15 Pleural effusion 2793013 8 J90 stable without increased work of breathings /p thoracente sis from hospmonito r Chronic ki dney disease stage 3 233376240 N18.30 bmp and cbc as above, monitor need to continueMa intain hydrationA void nephrotoxi cs Diabetes mellitus 995979 09 E11.9 A1C 7.6%BS mostly 100s - 200sContin ue :basaglar 15 units qdjardianc e 10 mg qdlispro SSICarb control dietAdjust meds prn Essential hypertension 79749946 I10 Continue:n orvasc 10 mg qdbumex 2 mg qdMoniotor VS, labs, adjust meds prn Hyperlipidemia 50393815 E78.49 continueat orvastatin 40 mg qdgemfibro zil stopped due to interventi on with lipitor LF Ts WNRLipid panel if stays snf Hypothyroidism 95528733 E03.8 Continuele vothyroxin e 200 mcg qdTSH, FT4 prn Gastroesop hageal reflux disease without esophagitis 610787548 K21.9 contomepra zole 20 mg qd (? started while in the hospital)m onitor GI sx.conside r stopping in 6 wks. if no sx. Anxiety 76244475 F41.9 Continue :cymbalta 20 mg qdativan 0.5 mg tid prn (x14d, then re-eval)ev al on sych referral PRNMonitor mood, behaviors Chronic pain syndrome 37 6343444 G89.4 Continue:c ymbalta 20 mg qdoxycodon e 5 mg q8 hr prnPt. states chronic low back pain, knee pain, and sacral pain due to a fractured tailbone at 20 yrs. of age) Obstructiv e sleep apnea syndrome 54212459 G47.33 Per pt.Does not use CPAP, instead wears O2 2L RTC at home. [id number] Carlee Amezcua MD [facility] [address] [address] 09/27/2024 20:05:35 09/28/2024 10:42:39 Diastolic heart failure 598296778 I50.33 Appears euvolemic. Last wt on 09/24 was down 5# from previous wt.Daily wts have been ordered 4 times and not being done.Wts ordered for M/W/FConti nue Bumex 2 mg qd.Monitor resp. status, fluid status, wts and labs. Asthenia 83446764 R53.1 Improved back to baseline per pt.Unclear if rehab agrees.Molina villareal have SS consult with rehab and pt tomorrow to see if ready for d/c. Open wound 766183746 T14 .8XXA Resolved.C ontinue good skin care to prevent reopening. Acute hypo xemic respiratory failure 348604841 J96.01 Resolved.A s above. Chronic ob structive pulmonary disease 42658595 J41.1 Back to baseline per pt.Continu e atrovent 2 puffs q 6 hrs prn.Contin ue supplement al O2 titrated to sats >90%Monito r resp status. Pleural effusion 0535169 8 J90 Thought to be due to PNA and CHF.Txed with abxs and thoracente sis.No f/u needed unless increased sxs.Monito r resp status Chronic ki dney disease stage 3 173037346 N18.32 Back to baseline.C ontinue to avoid nephrotoxi c meds as able.Monit or labs.Renal consult prn. Diabetes mellitus 214177 09 E11.9 Sugars in adequate control.Co ntinue basaglar 15 units qd, jardiance 10 mg qd and SSIMonitor fingerstic ks TID and HgA1C q 3 months. Essential hypertension 70029156 I10 In good control since here.Chuck nue amlodipine 10 mg qd and bumex 2 mg qdMonitor BP and labs. Hyperlipidemia 01624870 E78.49 Continue atorvastat in 40 mg qdMonitor labs as outpt Hypothyroidism 40488235 E03.8 Continue levothyrox ine 200 mcg qdI can't find a TSH in [facility] or [facility] systems.Wi ll order for AM Gastroesop hageal reflux disease without esophagitis 454099093 K21.9 No current sxs.Contin ue omeprazole 20 mg qdMonitor GI sx. Pneumonia 621351121 J18. 9 Resolved Anxiety 84504173 F41.1 Mood good tonight.Co ntinue Cymbalta 20 mg qd and lorazepam 0.5 mg TID prn.Monito r mood.Psych following. Chronic pain syndrome 37 6712789 G89.4 Continue meds as above and oxycodone 5 mg q 8 hrs prn and APAP 650 mg q 4 hrs prn.Monito r sxs. Obstructiv e sleep apnea syndrome 68414592 G47.33 Not on CPAP.F/U as outpt. [id number] Eloina Odom NP [facility] [address] [facility] [place] [address] 09/30/2024 08:15:34 10/03/2024 13:20:59 Diastolic heart failure 835554379 I50.33 Appears euvolemic. weight 203 on 09/24 last, down approx 5 lbs hereweight daily at homeContin ue Bumex 2 mg qd.Monitor resp. status, fluid status, at home with services and pcp outpt Asthenia 37261348 R53.1 Improved back to baseline per pt.Unclear if rehab agrees but pt insistent on going home.Pt able to walk approx 75 feet with walker and at baseline prior to hospitaliz ationmonit or with pcp outpt Chronic ob structive pulmonary disease 72605279 J41.1 Back to baseline per pt.Continu e atrovent 2 puffs q 6 hrs prn.Contin ue supplement al O2 2at liters baseline and titrated to sats >90%Monito r resp status outpt with pcp and services Pleural effusion 0763955 8 J90 Thought to be due to PNA and CHF.Txed with abxs and thoracente sis.No f/u needed unless increased sxs.Monito r resp status outpt with pcp Acute hypo xemic respiratory failure 306901174 J96.01 Resolved.A s above. Chronic ki dney disease stage 3 917989524 N18.32 Back to baseline. cr 1.5-1.9Con tinue to avoid nephrotoxi c meds as able.Monit or labs outpt with pcpRenal consult prn outpt Diabetes mellitus 908406 09 E11.9 Sugars in adequate control.mo stly 100-200sCo ntinue basaglar 15 units qd, jardiance 10 mg qd and SSIMonitor fingerstic ks TID and HgA1C q 3 months with pcp outpt Essential hypertension 28526598 I10 In good control since here.Chuck nue amlodipine 10 mg qd and bumex 2 mg qdMonitor BP and labs outpt with pcp prn Hyperlipidemia 14532847 E78.49 Continue atorvastat in 40 mg qdMonitor outpt with pcp Open wound 848826656 T14 .8XXA Resolved.C ontinue good skin care to prevent reopening. Hypothyroidism 84472854 E03.8 Continue levothyrox ine 200 mcg qdmonitor oupt with pcp Gastroesop hageal reflux disease without esophagitis 949843485 K21.9 No current sxs.Contin ue omeprazole 20 mg qdMonitor GI sx. outpt with pcp Pneumonia 726318403 J18. 9 Resolved Anxiety 81621666 F41.1 Mood good tonight.Co ntinue Cymbalta 20 mg qd and lorazepam 0.5 mg TID prn.Monito r mood outpt with pcp Chronic pain syndrome 37 1113163 G89.4 Continue meds as above and oxycodone 5 mg q 8 hrs prn and APAP 650 mg q 4 hrs prn.Monito r sxs. outpt with pcp Obstructiv e sleep apnea syndrome 39658468 G47.33 Not on CPAP.F/U as outpt Health Concerns Section Related Observation LastModified by Organization Detai ls LastModified Time None Recorded Concern Status LastModified by Organization Details LastModified Time None Recorded Advance Directives Directive N: Full Code Payers Encounter Date Sequence Insurance Name Policy Number Policy Tidwell Covered Member ID [place] Member ID Guarantor Name 09/06/2024 1 [place] [employer] Radhika Vaca [id number] Radhika Vaca 09/06/2024 2 [place] [facility] Radhika Vaca [id number] Radhika Vaca 09/08/2024 1 [place] [employer] Radhika Vaca [id number] Radhika Vaca 09/08/2024 2 [place] [facility] Radhika Vaca [id number] Radhika Vaca 09/14/2024 1 [place] [employer] Radhika Vaca [id number] Radhika Vaca 09/14/2024 2 [place] [facility] Radhika Vaca [id number] Radhika Vaca 09/27/2024 1 [place] [facility] Radhika Vaca [id number] Radhika Vaca 09/27/2024 2 [place] [facility] Radhika Vaca [id number] Radhika Vaca 09/30/2024 1 [place] [facility] Radhika Vaca [id number] Radhika Vaca 09/30/2024 2 [place] [facility] Radhika Vaca [id number] Radhika Vaca Notes Date Note Type Note Provider Name and Address Organization Details Recorded Time 09/06/2024 text/html Radhika is seen today for a routine, 30 day visit. She is a 78 yo lady, admitted to [facility] 08/09/24 from [facility] for continued care and rehab after a [...] O2 use.Full code ALLAN PRADHAN NP [address], [address], [place], [address], [facility] 09/06/2024 15:00:32 09/08/2024 text/html Radhika is seen today for an acute visit. She is a 78 yo lady, admitted to [facility] 08/09/24 from [facility] for continued care and rehab after a [...] O2 use.Full code ALLAN PRADHAN NP [address], [address], [place], [address], [facility] 09/08/2024 13:56:51 09/14/2024 text/html Radhika is seen today for an acute rounding visit. PMH: anxiety, CKD3, COPD, chronic pain, DM, CHF, dysphagia, HTN, HLD, hypothyroid, LBBB, morbid obesity, pernicious anemia, TEZ, chronic O2 use.Full code She is a 78 yo lady, admitted to [facility] 08/09/24 from [facility] for continued care and rehab after a a brief hosp. due to resp. failure (COPD, PNA, CHF) and MARJORIE on CKD (cardiorenal syndrome). Also developed a sacral wound during admission. While here at [facility]:Radhika is doing well and working with [...] mod. fall risk Eloina Odom, [facility] [address], [address], [place], [address], [facility] 09/14/2024 09:44:48 09/27/2024 text/html This is a [...] LBBB, and TEZ. Carlee Amezcua MD [address], [address], [place], [address], [facility] - [employer] 09/28/2024 02:15:34 09/30/2024 text/html Pt is a [...] transferred here for STR. Since here at [facility]: She had a sacral wound [...] with o2. She is aware social worker health services is working on a plan and she will follow with pcp outpt. Breathing non labored. Eloina Odom, [facility] [address], [address], [place], [address], [facility] 09/30/2024 08:56:26 OBGyn Episode No OBEpisode recorded.
[2025-01-05 03:15] LABS: MANUAL DIFF FLAG NO
[2025-01-05 03:16] LABS: Basophils Absolute Auto 0.1 X10*3/uL (0.0-0.2); Basophils Percent Auto 0.8 % (0-2); Eosinophils Absolute Auto 0.1 X10*3/uL (0.0-0.4); Eosinophils Percent Auto 1.6 % (0-4); Hematocrit 31.1 % (37.0-47.0); Hemoglobin 9.4 g/dl (12.0-16.0); Imm Gran Abs Auto 0.03 X10*3/uL (0.00-0.03); Imm Gran Pct Auto 0.5 % (0.0-0.4); Lymphocytes Absolute Auto 0.5 X10*3/uL (1.2-4.9); Lymphocytes Percent Auto 7.5 % (20-40); Mean Corpuscular HGB Conc 30.2 g/dl (31.0-35.0); Mean Corpuscular Hemoglobin 29.4 pg (27.0-33.0); Mean Corpuscular Volume 97.2 fL (80.0-98.0); Mean Platelet Volume 9.1 fL (9.4-12.3); Monocytes Absolute Auto 0.4 X10*3/uL (0.1-1.2); Monocytes Percent Auto 5.7 % (2-11); Neutrophils Absolute Auto 5.3 x10*3/uL (2.0-8.3); Neutrophils Percent Auto 83.9 % (45-73); Platelet Count 244 X10*3/uL (160-400); Red Cell Distribution Width 17.6 % (11.0-16.0); White Blood Count 6.3 X10*3/uL (4.8-10.8)
[2025-01-05 03:17] LABS: Appearance Urine Cloudy; Color Urine Yellow; Glucose Urine UA 500 mg/dL (Negative); Leukocyte Esterase Urine Moderate (2+) (Negative); Nitrite Urine Negative (Negative); PH 5.5 (5.0-9.0); Specific Gravity - Urine 1.015 (1.005-1.025); UMIC TRIGGER UACC YES; Urine Blood Moderate (2+) (Negative); Urine Ketones Negative (Negative); Urine Protein 300 (3+) mg/dL (Neg-Trace)
[2025-01-05 03:20] LABS: Venous Blood Gas Refer to POC result
[2025-01-05 03:30] LABS: Alanine Aminotransferase 12 U/L (0-31); Albumin Level 3.2 g/dL (3.5-5.0); Alkaline Phosphatase 103 U/L (39-117); Anion Gap 17 (12-20); Aspartate Amino Transferase 22 U/L (5-31); Bilirubin Total 0.2 mg/dL (0.0-1.0); Blood Urea Nitrogen 78 mg/dL (9-16); Calcium 8.3 mg/dL (8.4-10.2); Carbon Dioxide 15 mmol/L (22-29); Chloride 114 mmol/L (96-108); Creatinine Clr Calc Pharmacy 26.3; Estimated Glomerular Filt Rate 22; Glucose Random 199 mg/dL (60-115); Magnesium 2.7 mg/dL (1.6-2.6); Potassium 5.7 mmol/L (3.3-5.1); Sodium 140 mmol/L (135-145); Total Protein 7.1 g/dL (6.5-8.0)
[2025-01-05 03:33] LABS: Bacteria Urine 3+ (None Seen); UACC Culture Trigger YES
--- NOTE | 2025-01-05 03:35 | PC.NURSE ---
pt biba from home, a&ox4, respirations even and unlabored. pt is bedbound at baseline, has chronic francisco in place draining well. pt is on 2L nc baseline. pt reports onset of shortness of breath x1 day, pt reports it increased tonight. she placed her o2 up to 4L nc and reported it did not help. pt given duoneb in ems, new duoneb administered by RT. aware of pt.
[2025-01-05 03:36] LABS: B Type Natriuretic Peptide 643 pg/mL (<100)
[2025-01-05 03:37] LABS: Troponin-I High Sensitivity 29.4 ng/L (<3.5-17.0)
[2025-01-05 03:45] LABS: VBG Base Excess -11.6 mmol/L; VBG HCO3 17 mmol/L (22-26); VBG pCO2 52 mmHg; VBG pH 7.12 (7.32-7.43); VBG pO2 39 mmHg
--- NOTE | 2025-01-05 03:46 | PC.NURSE ---
critical PH 7.12 called. informed.
[2025-01-05 03:53] LABS: Influenza A PCR NEGATIVE (Negative); Influenza B PCR NEGATIVE (Negative); Resp Syncy Virus RNA Qual PCR NEGATIVE (Negative); SARS COV2 PCR INHOUSE NEGATIVE (Negative)
--- NOTE | 2025-01-05 04:02 | ED.SOB ---
HPI - SOB/Dyspnea General Chief Complaint: Dyspnea Stated Complaint: SOB Time Seen by Provider: 01/05/25 03:49 Source: patient Mode of arrival: ambulatory Limitations: no limitations History of Present Illness ED Provider: Dr. Jennifer Tenorio HPI Narrative: patient comes to the emergency room complaining of shortness of breath for 1 day. Patient known to use oxygen at home 4 L for COPD. Patient also has history of CHF. Patient denies chest pain, complaining of shortness of breath. EMS gave the patient a DuoNeb prior to arrival. Related Data Home Medications ?Medication ?Instructions ?Recorded ?Confirmed levothyroxine 200 mcg tablet 200 mcg PO DAILY@0600 06/19/24 11/07/24 oxycodone 5 mg tablet 5 mg PO BID PRN Pain, Severe (Pain 10/27/24 11/07/24 Scale 7-10) Previous Rx's ?Medication ?Instructions ?Recorded insulin syringe-needle U-100 0.5 #100 ea 07/29/23 mL 31 gauge x 5/16 (BD Insulin Syringe Ultra-Fine) pen needle, diabetic 31 gauge x #100 ea 07/29/23 5/16 (1st Tier Unifine Pentips) lorazepam 0.5 mg tablet 0.5 mg PO TID PRN anxiety 30 days 04/04/24 #90 tabs duloxetine 20 mg capsule,delayed 20 mg PO DAILY 90 days #90 caps 05/14/24 release (Cymbalta) atorvastatin 40 mg tablet 40 mg PO BEDTIME 90 days #90 tabs 06/19/24 blood sugar diagnostic (Accu-Chek #100 ea 07/26/24 Odilia Plus test strips) empagliflozin 10 mg tablet 10 mg PO DAILY #90 tabs 07/26/24 (Jardiance) nystatin 100,000 unit/gram topical 1 appl topical BID #30 grams 08/09/24 powder ipratropium 0.5 mg-albuterol 3 mg 3 ml inhalation Q4H PRN shortness 10/16/24 (2.5 mg base)/3 mL nebulization of breath or wheezing #90 mL soln bumetanide 1 mg tablet 1 mg PO DAILY #90 tabs 11/03/24 cefuroxime axetil 250 mg tablet 250 mg PO Q12H #18 tabs 11/03/24 blood sugar diagnostic (Accu-Chek #100 ea 11/08/24 Guide test strips) lancets (Accu-Chek Softclix #100 ea 11/08/24 Lancets) insulin glargine 100 unit/mL (3 25 unit (0.25 mL) subcut BEDTIME 12/23/24 mL) subcutaneous pen (Basaglar 30 days #7.5 mL KwikPen U-100 Insulin) albuterol sulfate 90 mcg/actuation 2 puff inhalation Q6H PRN 01/02/25 aerosol inhaler (Ventolin HFA) shortness of breath or wheezing 30 days #8.5 grams cefuroxime axetil 500 mg tablet 500 mg PO BID #13 tabs 01/03/25 Allergies Allergy/AdvReac Type Severity Reaction Status Date / Time ibuprofen [From Motrin] Allergy Unknown swelling Verified 01/05/25 02:13 codeine [CODEINE] AdvReac Unknown SLEEPY Verified 01/05/25 02:13 [facility] Past Medical History Medical History Anemia Herpes zoster MARJORIE (acute kidney injury) Left bundle branch block Morbid obesity Chronic pain syndrome Anxiety Pernicious anemia COPD (chronic obstructive pulmonary disease) CHF (congestive heart failure) Hypothyroidism Essential hypertension Diabetes mellitus Pure hypercholesterolemia Surgical History H/O left knee surgery Deficient knowledge of leg surgery History of tonsillectomy and adenoidectomy History of appendectomy Family History Family History Father CVD (cardiovascular disease) Mother No problems noted. Family/Other FH: mental illness Social History Social History Household Members: Children Housing: Apartment Do you presently have visiting nurse or other home services: No Alcohol intake: unknown Patient Tobacco Use Status: Former Tobacco user Tobacco use type: Cigarette Smoked in Last 30 Days: No e-Cigarette/Vaping Use: Never Used Second Hand Smoke Exposure: No Use of substances other than those prescribed or required for medical reasons: No Advance Directives: Yes Advance Directives on File: Yes Advance Directives Date on File: 06/24/24 Do you have a plan to hurt others: No Plan service: No Current occupational status: disabled Cognitive needs: Yes Hearing needs: No Vision needs: No Physical Exam Vital Signs: Vital Signs: Last Vital Signs Temp 97.0 F 01/05/25 07:38 Pulse 57 01/05/25 07:38 Resp 20 01/05/25 07:38 BP 116/41 L 01/05/25 07:38 Pulse Ox 99 01/05/25 07:38 O2 Del Method BiPAP 01/05/25 07:38 O2 Flow Rate 2 01/05/25 06:08 FiO2 24 01/05/25 06:40 Oxygen Flow Rate 4 01/05/25 02:06 BMI result Body Mass Index 40.1 Course Course Course Narrative: Patient has history of COPD and CHF. Patient complaining of cough, shortness of breath. Patient empirically being treated with IV ceftriaxone. patient's vitals stable, no episodes of hypotension. At this time, 04:00, sepsis is not suspected. Medications Administered Generic Name Dose Route Start Last Admin Trade Name Freq PRN Reason Stop Dose Admin Sodium Chloride 500 mls @ 200 mls/hr 01/05/25 06:15 01/05/25 06:39 Ns IV 01/05/25 08:44 200 mls/hr .Q2H30M GEO Administration Discontinued Medications Generic Name Dose Route Start Last Admin Trade Name Freq PRN Reason Stop Dose Admin Albuterol Sulfate 7.5 mg/ 10 mg 01/05/25 02:18 01/05/25 02:25 Albuterol Sulfate 2.5 mg INHALE 01/05/25 02:19 10 mg ONCE ONE Administration Ceftriaxone Sodium 1 gm 01/05/25 04:03 01/05/25 04:31 Ceftriaxone Sodium 1 Gm Vial IVPUSH 01/05/25 04:04 1 gm ONCE ONE Administration Furosemide 40 mg 01/05/25 04:00 01/05/25 04:23 Furosemide 40 Mg/4 Ml Vial IVPUSH 01/05/25 04:01 40 mg ONCE ONE Administration Protocol Azithromycin 500 mg/ Sodium 250 mls @ 125 mls/hr 01/05/25 06:06 01/05/25 06:39 Chloride IV 01/05/25 08:05 125 mls/hr ONCE ONE Administration Lorazepam 1 mg 01/05/25 04:45 01/05/25 04:56 Lorazepam 2 Mg/Ml Vial IVPUSH 01/05/25 04:46 1 mg ONCE ONE Administration Lorazepam 1 mg 01/05/25 07:18 01/05/25 07:27 Lorazepam 2 Mg/Ml Vial IVPUSH 01/05/25 07:19 1 mg ONCE ONE Administration Medical Decision Making Medical Decision Making MDM Narrative: Patient's white blood cell count within normal limits, at baseline hematology. Chemistry shows slightly increased potassium of 5.7. BUN 78 and creatinine 2.20 which is chronic for the patient. Patient's troponin slightly bumped 29.4. However, patient's BNP elevated 643. In October when patient was here, patient's BNP was elevated, had CHF exacerbation. My interpretation of chest x-ray: Mild to moderate vascular congestion, no overt pulmonary edema My interpretation of EKG: Sinus rhythm, P waves better visualized in V2, heart rate 54, no ST segment depression or elevation, no T-wave inversion, QTC 432 Due to history of CHF, patient will be put on CPAP. on auscultation, patient has been out a crackles, likely CHF exacerbation patient's vitals remained stable. However, at this time, 04:10 the patient's blood gases. Patient's pH is 7.12, pCO2 52, bicarb 17. Patient remains awake, alert and oriented x3. Patient refusing to use CPAP. After a prolonged conversation, patient states that she will do a try. However, it is expected that the patient will take it off And refused CPAP/BiPAP patient's urinalysis has a moderate amount of blood, leukocyte esterase white blood cells. Patient has had multiple urinalysis reports. Most of them did not grow any specific bacteria. Patient does not have any urinary symptoms. In the past, patient had 1 time an episode of E coli susceptible to most antibiotics. As mentioned above, patient was already started on ceftriaxone which will cover both, URI and UTI. sepsis is not suspected at this time, 06:05, patient's x-ray shows right upper lobe pneumonia. We will add azithromycin to the patient's medication regimen. Patient receiving a small amount of fluids, 200 mL per hour. Patient has your of CHF, therefore she will not be bolused With IV fluids. Patient's venous blood gases improved. PH still a bit on the lower side. However, pCO2 improved. Ideally, patient should stay a little bit longer on the CPAP /BiPAP. after a long discussion with the patient, patient grudgingly agreeable to put his BiPAP mask back on. Patient had a good response within 2 hours of being on BiPAP. This time, we will with a bit longer, different on room air on the recheck blood gases. Is likely the patient may be able to go up to the floor. However, we spoke with the nursing /warehouse manager. The ICU may have an ICU available in 2 hours From now, a proximally a 930-10 a.m in case that the patient needs ICU patient is not in severe septic shock. Patient is on BiPAP secondary to chronic conditions including CHF, chronic lung disease next blood gas check will be done at 08:30. It is gases acceptable, patient become of BiPAP and then recheck gas again to make sure that patient is doing well without BiPAP I discussed the above-mentioned with my colleague Dr. Davis Lab Data 01/05/25 03:10 01/05/25 03:10 Labs: Lab Results 01/05/25 01/05/25 01/05/25 Range/Units 03:10 03:21 04:26 WBC 6.3 (4.8-10.8) X10*3/uL RBC 3.20 L (4.20-5.50) X10*6/uL Hgb 9.4 L (12.0-16.0) g/dl Hct 31.1 L (37.0-47.0) % MCV 97.2 (80.0-98.0) fL MCH 29.4 (27.0-33.0) pg MCHC 30.2 L (31.0-35.0) g/dl RDW 17.6 H (11.0-16.0) % Plt Count 244 (160-400) X10*3/uL MPV 9.1 L (9.4-12.3) fL Immature Gran % (Auto) 0.5 H (0.0-0.4) % Neut % (Auto) 83.9 H (45-73) % Lymph % (Auto) 7.5 L (20-40) % [place] % (Auto) 5.7 (2-11) % Eos % (Auto) 1.6 (0-4) % Baso % (Auto) 0.8 (0-2) % Lymph # (Auto) 0.5 L (1.2-4.9) X10*3/uL [place] # (Auto) 0.4 (0.1-1.2) X10*3/uL Eos # (Auto) 0.1 (0.0-0.4) X10*3/uL Baso # (Auto) 0.1 (0.0-0.2) X10*3/uL Abs Immat Gran (auto) 0.03 (0.00-0.03) X10*3/uL Absolute Neuts (auto) 5.3 (2.0-8.3) x10*3/uL Absolute Nucleated RBC 0.000 (0.0-0.012) X10*3/uL Nucleated RBC % (auto) 0.0 (0.0-0.2) /100WBC VBG pH 7.12 L* (7.32-7.43) VBG pCO2 52 mmHg VBG pO2 39 mmHg VBG HCO3 17 L (22-26) mmol/L VBG O2 Saturation 65.0 % VBG Base Excess -11.6 mmol/L Sodium 140 (135-145) mmol/L Potassium 5.7 H D (3.3-5.1) mmol/L Chloride 114 H (96-108) mmol/L Carbon Dioxide 15 L (22-29) mmol/L Anion Gap 17 (12-20) BUN 78 H (9-16) mg/dL Creatinine 2.20 H (0.5-1.4) mg/dL Estim Creat Clear Calc 26.3 Estimated GFR 22 Random Glucose 199 H (60-115) mg/dL Lactic Acid 1.3 (0.5-2.0) mmol/L Calcium 8.3 L (8.4-10.2) mg/dL Magnesium 2.7 H (1.6-2.6) mg/dL Total Bilirubin 0.2 (0.0-1.0) mg/dL AST 22 (5-31) U/L ALT 12 (0-31) U/L Alkaline Phosphatase 103 (39-117) U/L Troponin I High Sens 29.4 H D (<3.5-17.0) ng/L B-Natriuretic Peptide 643 H (<100) pg/mL Total Protein 7.1 (6.5-8.0) g/dL Albumin 3.2 L (3.5-5.0) g/dL Urine Color Yellow Urine Appearance Cloudy Urine pH 5.5 (5.0-9.0) Ur Specific [place] 1.015 (1.005-1.025) Urine Protein 300 (3+) H (Neg-Trace) mg/dL Urine Glucose (UA) 500 H (Negative) mg/dL Urine Ketones Negative (Negative) mg/dL Urine Blood Moderate (2+) H (Negative) Urine Nitrite Negative (Negative) Ur Leukocyte Esterase Moderate (2+) H (Negative) Urine RBC 3-5 H (0-2) /HPF Urine WBC 11-20 (0-5) /HPF Ur Squamous Epith Cells 3-5 (0-2) /HPF Urine Bacteria 3+ (None Seen) Hyaline Casts 3-5 (0-2) /LPF Urine Yeast Present Influenza Type A (PCR) NEGATIVE (Negative) Influenza Type B (PCR) NEGATIVE (Negative) RSV RNA Qual (PCR) NEGATIVE (Negative) SARS-CoV-2 RNA (RT-PCR) NEGATIVE (Negative) 01/05/25 01/05/25 Range/Units 04:27 05:32 WBC (4.8-10.8) X10*3/uL RBC (4.20-5.50) X10*6/uL Hgb (12.0-16.0) g/dl Hct (37.0-47.0) % MCV (80.0-98.0) fL MCH (27.0-33.0) pg MCHC (31.0-35.0) g/dl RDW (11.0-16.0) % Plt Count (160-400) X10*3/uL MPV (9.4-12.3) fL Immature Gran % (Auto) (0.0-0.4) % Neut % (Auto) (45-73) % Lymph % (Auto) (20-40) % [place] % (Auto) (2-11) % Eos % (Auto) (0-4) % Baso % (Auto) (0-2) % Lymph # (Auto) (1.2-4.9) X10*3/uL [place] # (Auto) (0.1-1.2) X10*3/uL Eos # (Auto) (0.0-0.4) X10*3/uL Baso # (Auto) (0.0-0.2) X10*3/uL Abs Immat Gran (auto) (0.00-0.03) X10*3/uL Absolute Neuts (auto) (2.0-8.3) x10*3/uL Absolute Nucleated RBC (0.0-0.012) X10*3/uL Nucleated RBC % (auto) (0.0-0.2) /100WBC VBG pH 7.22 L (7.32-7.43) VBG pCO2 33 mmHg VBG pO2 66 mmHg VBG HCO3 14 L (22-26) mmol/L VBG O2 Saturation 92.0 % VBG Base Excess -12.1 mmol/L Sodium (135-145) mmol/L Potassium (3.3-5.1) mmol/L Chloride (96-108) mmol/L Carbon Dioxide (22-29) mmol/L Anion Gap (12-20) BUN (9-16) mg/dL Creatinine (0.5-1.4) mg/dL Estim Creat Clear Calc Estimated GFR Random Glucose (60-115) mg/dL Lactic Acid (0.5-2.0) mmol/L Calcium (8.4-10.2) mg/dL Magnesium (1.6-2.6) mg/dL Total Bilirubin (0.0-1.0) mg/dL AST (5-31) U/L ALT (0-31) U/L Alkaline Phosphatase (39-117) U/L Troponin I High Sens 26.8 H (<3.5-17.0) ng/L B-Natriuretic Peptide 644 H (<100) pg/mL Total Protein (6.5-8.0) g/dL Albumin (3.5-5.0) g/dL Urine Color Urine Appearance Urine pH (5.0-9.0) Ur Specific [place] (1.005-1.025) Urine Protein (Neg-Trace) mg/dL Urine Glucose (UA) (Negative) mg/dL Urine Ketones (Negative) mg/dL Urine Blood (Negative) Urine Nitrite (Negative) Ur Leukocyte Esterase (Negative) Urine RBC (0-2) /HPF Urine WBC (0-5) /HPF Ur Squamous Epith Cells (0-2) /HPF Urine Bacteria (None Seen) Hyaline Casts (0-2) /LPF Urine Yeast Influenza Type A (PCR) (Negative) Influenza Type B (PCR) (Negative) RSV RNA Qual (PCR) (Negative) SARS-CoV-2 RNA (RT-PCR) (Negative) Critical Care Time Critical Care Time Critical Care Time: Yes Total Critical Care Time: 75 Attestation: I have personally provided critical care time. Time includes review of lab data, radiology results, discussion with consultants, and monitoring for potential decompensation. Intervention performed as documented. Discharge Plan Discharge Clinical Impression: CHF (congestive heart failure), Pneumonia Prescriptions: No Action (DME) insulin syringe-needle U-100 [BD Insulin Syringe Ultra-Fine] 0.5 mL 31 gauge x 5/16 syringe See Rx Instructions .Route Qty: 100 3RF Rx Instructions: Use 1 needle once a day (DME) pen needle, diabetic [1st Tier Unifine Pentips] 31 gauge x 5/16 needle See Rx Instructions .Route Qty: 100 4RF Rx Instructions: Use 1 pen needle once a day lorazepam 0.5 mg tablet 0.5 mg PO TID PRN (Reason: anxiety) 30 Days Qty: 90 0RF Rx Instructions: coverage for Ranjith Chun duloxetine [Cymbalta] 20 mg capsule,delayed release(DR/EC) 20 mg PO DAILY 90 Days Qty: 90 0RF atorvastatin 40 mg tablet 40 mg PO BEDTIME 90 Days Qty: 90 3RF Jardiance 10 mg tablet 10 mg PO DAILY Qty: 90 1RF (DME) Accu-Chek Odilia Plus test strp Strip See Rx Instructions .Route Qty: 100 1RF Rx Instructions: Use 1 test strip once a day ipratropium-albuterol 0.5 mg-3 mg(2.5 mg base)/3 mL solution for nebulization 3 ml inhalation Q4H PRN (Reason: shortness of breath or wheezing) Qty: 90 0RF (DME) Accu-Chek Guide test strips Strip See Rx Instructions .Route Qty: 100 3RF Rx Instructions: Use 1 test strip once a day (DME) lancets [Accu-Chek Softclix Lancets] Misc See Rx Instructions .Route Qty: 100 3RF Rx Instructions: Use 1 lancet once a day insulin glargine [Basaglar KwikPen U-100 Insulin] 100 unit/mL (3 mL) insulin pen 25 unit subcut BEDTIME 30 Days Qty: 7.5 0RF albuterol sulfate [Ventolin HFA] 90 mcg/actuation HFA aerosol inhaler 2 puff inhalation Q6H PRN (Reason: shortness of breath or wheezing) 30 Days Qty: 8.5 0RF oxycodone 5 mg tablet 5 mg PO BID PRN (Reason: Pain, Severe (Pain Scale 7-10)) Rx Instructions: Partial Fill upon patient request. bumetanide 1 mg tablet 1 mg PO DAILY Qty: 90 1RF Protocol: Hold for SBP< HOLD for SBP < : 90 cefuroxime axetil 250 mg tablet 250 mg PO Q12H Qty: 18 0RF cefuroxime axetil 500 mg tablet 500 mg PO BID Qty: 13 0RF levothyroxine 200 mcg tablet 200 mcg PO DAILY@0600 nystatin 100,000 unit/gram Powder 1 appl topical BID Qty: 30 0RF Protocol: Apply to: Apply to: Groin Print Language: Nepali
--- NOTE | 2025-01-05 04:21 | PC.NURSE ---
pt is a hard stick, attempting to obtain blood cultures at this time.
[2025-01-05] MEDS: Furosemide 40 MG/4 ML VIAL IVPUSH (04:23)
[2025-01-05] MEDS: cefTRIAXone sodium 1 GM VIAL IVPUSH (04:31)
--- NOTE | 2025-01-05 04:39 | PC.NURSE ---
pt placed on BIPAP at this time by RT. pt tolerating moderately. pt given IV lasix, urine output noted.
[2025-01-05 04:51] LABS: Lactic Acid 1.3 mmol/L (0.5-2.0)
[2025-01-05] MEDS: LORazepam 2 MG/ML VIAL 1 MG IVPUSH ×2 (04:56→07:27)
[2025-01-05 04:57] LABS: B Type Natriuretic Peptide 644 pg/mL (<100); Troponin-I High Sensitivity 26.8 ng/L (<3.5-17.0)
[2025-01-05 05:31] LABS: Venous Blood Gas Refer to POC result
[2025-01-05 05:35] LABS: VBG Base Excess -12.1 mmol/L; VBG HCO3 14 mmol/L (22-26); VBG pCO2 33 mmHg; VBG pH 7.22 (7.32-7.43); VBG pO2 66 mmHg
--- NOTE | 2025-01-05 05:39 | PC.NURSE ---
PH reported to . plan to keep pt on bipap as tolerated.
--- NOTE | 2025-01-05 06:06 | PC.NURSE ---
pt not tolerating BIPAP at this time. per provider, remove pt from BIPAP and place pt back on o2. pt on 2L oxymax due to being more comfortable mouth breathing.
[2025-01-05] MEDS: 0.9 % Sodium Chloride 500 ML 200 ML IV (06:39)
[2025-01-05] MEDS: Azithromycin 500 MG in 0.9 % Sodium Chloride 250 ML 125 MG IV (06:39)
--- NOTE | 2025-01-05 06:39 | PC.NURSE ---
pt placed back onto BIPAP by rt. pt tolerating moderately at this time, vss.
--- NOTE | 2025-01-05 06:49 | PC.NURSE ---
francisco emptied for 650 of yellow urine at this time.
--- NOTE | 2025-01-05 06:53 | PC.NURSE ---
new Coccyx barrier pad placed d/t redness. wound care consult placed.
--- NOTE | 2025-01-05 07:30 | PC.NURSE ---
Pt extremely anxious, hyperventilating around bipap settings; MD made aware; pt medicated per orders; will cont to monitor/tx per orders
[2025-01-05 08:46] LABS: ABG Base Excess -10.5 mmol/L; ABG HCO3 15 mmol/L (22-26); ABG pCO2 36 mmHg (32-45); ABG pH 7.24 (7.35-7.45); ABG pO2 94 mmHg (83-108)
--- NOTE | 2025-01-05 09:03 | PC.NURSE ---
Pt's ABG pH 7.24; Dr Davis at bedside to remove Bipap; 3 ltr NC applied; SAO2 98% at this time with RR 18; pt tolerating PO liquids; will monitor x1 hour and repeat ABG, per
--- NOTE | 2025-01-05 09:17 | PC.NURSE ---
O2 titrated down to 2 ltr NC; SAO2 97%; pt speaking full sentences
[2025-01-05 10:27] LABS: ABG Base Excess -10.5 mmol/L; ABG HCO3 16 mmol/L (22-26); ABG pCO2 39 mmHg (32-45); ABG pH 7.21 (7.35-7.45); ABG pO2 117 mmHg (83-108)
--- NOTE | 2025-01-05 10:47 | PC.NURSE ---
Pt cont to tolerate 2 ltr NC with SAO2 97%, RR 19; pt tolerating PO food/fluids, speaking full sentences at this time; pt reports interm. 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
[2025-01-05 11:10] LABS: ABG Refer to POC result
[2025-01-05 12:02] LABS: Glucose, Whole Blood 199 mg/dL (60-115)
[2025-01-05 12:13] LABS: Venous Blood Gas Refer to POC result
[2025-01-05 12:17] LABS: VBG Base Excess -11.1 mmol/L; VBG HCO3 14 mmol/L (22-26); VBG pCO2 30 mmHg; VBG pH 7.27 (7.32-7.43); VBG pO2 57 mmHg
[2025-01-05 12:31] LABS: Anion Gap 15 (12-20); Blood Urea Nitrogen 74 mg/dL (9-16); Calcium 8.1 mg/dL (8.4-10.2); Carbon Dioxide 16 mmol/L (22-29); Chloride 116 mmol/L (96-108); Creatinine Clr Calc Pharmacy 27.8; Estimated Glomerular Filt Rate 23; Glucose Random 216 mg/dL (60-115); Potassium 5.2 mmol/L (3.3-5.1); Sodium 142 mmol/L (135-145)
[2025-01-05 12:32] LABS: Glucose, Whole Blood 194 mg/dL (60-115)
--- NOTE | 2025-01-05 12:41 | P.HPHOSP_ITS ---
History of Present Illness Date of Service: 01/05/25 Attending physician on admission: Juliane Ann Chief Complaint: sob This is a 79-year-old female with history of COPD on 2 L of home oxygen who presents to the emergency department with one-week history of intermittent shortness of breath. She reports associated cough. She denies any associated fever or chills. In the emergency department due to increased work of breathing she required BiPAP. She has been off BiPAP in the past 2 hours and her work of breathing has improved. VBG was obtained showing pH of 7.1 initially, improving to 7.2 after BiPAP. Lab work revealing metabolic acidosis with bicarb of 15 as well as hyperkalemia with potassium of 5.7. Chest x-ray showed concern for right upper lobe pneumonia. BNP elevated. Patient received treatment for CHF with IV Lasix, IV antibiotics for pneumonia as well as breathing treatments. She will be admitted for further management. Review of Systems 2 Review of Systems: Yes all other systems are reviewed and are negative Constitutional: Constitutional: Denies chills and Denies fever(s) Cardiovascular: Cardiovascular: Denies chest pain, Denies palpitations and Reports dyspnea Respiratory: Respiratory: Reports cough and Reports dyspnea Endocrine: Endocrine: Denies palpitations FORMERLY [facility], [facility]–1983 Medical History Anemia Herpes zoster MARJORIE (acute kidney injury) Left bundle branch block Morbid obesity Chronic pain syndrome Anxiety Pernicious anemia COPD (chronic obstructive pulmonary disease) CHF (congestive heart failure) Hypothyroidism Essential hypertension Diabetes mellitus Pure hypercholesterolemia Family History Father CVD (cardiovascular disease) Mother No problems noted. Family/Other FH: mental illness Surgical History H/O left knee surgery Deficient knowledge of leg surgery History of tonsillectomy and adenoidectomy History of appendectomy Social History Household Members: Children Housing: Apartment Do you presently have visiting nurse or other home services: No Alcohol intake: unknown Patient Tobacco Use Status: Former Tobacco user Tobacco use type: Cigarette Smoked in Last 30 Days: No e-Cigarette/Vaping Use: Never Used Second Hand Smoke Exposure: No Use of substances other than those prescribed or required for medical reasons: No Advance Directives: Yes Advance Directives on File: Yes Advance Directives Date on File: 06/24/24 Do you have a plan to hurt others: No Plan service: No Current occupational status: disabled Cognitive needs: Yes Hearing needs: No Vision needs: No Meds Allergies Allergy/AdvReac Type Severity Reaction Status Date / Time ibuprofen [From Motrin] Allergy Unknown swelling Verified 01/05/25 02:13 codeine [CODEINE] AdvReac Unknown SLEEPY Verified 01/05/25 02:13 Active Medications: Current Medications Dextrose (Dextrose 50 % 25 Gm/50 Ml Syringe) 25 gm IVPUSH Q15M PRN; Protocol PRN Reason: per Hypoglycemia Standing Ord. Glucose (Glucose Gel 15 Gm Gel..Gram.) 15 gm PO Q15M PRN; Protocol PRN Reason: per Hypoglycemia Standing Ord. Home Medications ?Medication ?Instructions ?Recorded ?Confirmed ?Last Taken ?Type levothyroxine 200 mcg tablet 200 mcg PO DAILY@0600 06/19/24 01/05/25 01/04/25 History gemfibrozil 600 mg tablet 600 mg PO BID 01/05/25 01/05/25 01/04/25 History Physical Exam 2 Vital Signs and Narrative: Vital Signs: Last Vital Signs Temp 97.1 F 01/05/25 10:46 Pulse 57 01/05/25 10:46 Resp 18 01/05/25 10:46 BP 109/53 L 01/05/25 10:46 Pulse Ox 98 01/05/25 10:46 O2 Del Method Nasal Cannula 01/05/25 10:46 O2 Flow Rate 2 01/05/25 10:46 FiO2 24 01/05/25 06:40 Oxygen Flow Rate 4 01/05/25 02:06 BMI result Body Mass Index 40.1 Const: General: cooperative, alert and awake Nutritional Appearance: obese Orientation/consciousness: patient oriented x3 Resp: Other: mild tachypnea, able to speak in full sentences; no wheezing on exam Cardio: Rate: bradycardic GI: Inspection: No distended and Yes obesity Palpation (GI): Soft to palpation and nontender Skin: Other: chronic thickened skin Neuro: Other: grossly nonfocal General: patient oriented x3 and moves all extremities Results Labs 01/05/25 03:10 01/05/25 12:06 Labs: Laboratory Results - last 24 hr 01/05/25 01/05/25 01/05/25 03:10 03:21 04:26 MCV 97.2 MCH 29.4 MCHC 30.2 L RDW 17.6 H Plt Count 244 MPV 9.1 L Immature Gran % (Auto) 0.5 H Neut % (Auto) 83.9 H Lymph % (Auto) 7.5 L Jenkins % (Auto) 5.7 Eos % (Auto) 1.6 Baso % (Auto) 0.8 Lymph # (Auto) 0.5 L Jenkins # (Auto) 0.4 Eos # (Auto) 0.1 Baso # (Auto) 0.1 Abs Immat Gran (auto) 0.03 Absolute Neuts (auto) 5.3 Absolute Nucleated RBC 0.000 Nucleated RBC % (auto) 0.0 O2 Saturation ABG pH at Pt Temp ABG pCO2 at Pt Temp ABG pO2 at Pt Temp ABG HCO3 ABG Base Excess (Actual) VBG pH 7.12 L* VBG pCO2 52 VBG pO2 39 VBG HCO3 17 L VBG O2 Saturation 65.0 VBG Base Excess -11.6 Anion Gap 17 Estim Creat Clear Calc 26.3 Estimated GFR 22 POC Glucose Random Glucose 199 H Lactic Acid 1.3 Calcium 8.3 L Magnesium 2.7 H Total Bilirubin 0.2 AST 22 ALT 12 Alkaline Phosphatase 103 B-Natriuretic Peptide 643 H Total Protein 7.1 Albumin 3.2 L Beta-Hydroxybutyrate Urine Color Yellow Urine Appearance Cloudy Urine pH 5.5 Ur Specific [place] 1.015 Urine Protein 300 (3+) H Urine Glucose (UA) 500 H Urine Ketones Negative Urine Blood Moderate (2+) H Urine Nitrite Negative Ur Leukocyte Esterase Moderate (2+) H Urine RBC 3-5 H Urine WBC 11-20 Ur Squamous Epith Cells 3-5 Urine Bacteria 3+ Hyaline Casts 3-5 Urine Yeast Present Influenza Type A (PCR) NEGATIVE Influenza Type B (PCR) NEGATIVE RSV RNA Qual (PCR) NEGATIVE SARS-CoV-2 RNA (RT-PCR) NEGATIVE 01/05/25 01/05/25 01/05/25 04:27 05:32 08:43 MCV MCH MCHC RDW Plt Count MPV Immature Gran % (Auto) Neut % (Auto) Lymph % (Auto) Jenkins % (Auto) Eos % (Auto) Baso % (Auto) Lymph # (Auto) Jenkins # (Auto) Eos # (Auto) Baso # (Auto) Abs Immat Gran (auto) Absolute Neuts (auto) Absolute Nucleated RBC Nucleated RBC % (auto) O2 Saturation 98.0 ABG pH at Pt Temp 7.24 L ABG pCO2 at Pt Temp 36 ABG pO2 at Pt Temp 94 ABG HCO3 15 L ABG Base Excess (Actual) -10.5 VBG pH 7.22 L VBG pCO2 33 VBG pO2 66 VBG HCO3 14 L VBG O2 Saturation 92.0 VBG Base Excess -12.1 Anion Gap Estim Creat Clear Calc Estimated GFR POC Glucose Random Glucose Lactic Acid Calcium Magnesium Total Bilirubin AST ALT Alkaline Phosphatase B-Natriuretic Peptide 644 H Total Protein Albumin Beta-Hydroxybutyrate Urine Color Urine Appearance Urine pH Ur Specific [place] Urine Protein Urine Glucose (UA) Urine Ketones Urine Blood Urine Nitrite Ur Leukocyte Esterase Urine RBC Urine WBC Ur Squamous Epith Cells Urine Bacteria Hyaline Casts Urine Yeast Influenza Type A (PCR) Influenza Type B (PCR) RSV RNA Qual (PCR) SARS-CoV-2 RNA (RT-PCR) 01/05/25 01/05/25 01/05/25 10:23 11:58 12:06 MCV MCH MCHC RDW Plt Count MPV Immature Gran % (Auto) Neut % (Auto) Lymph % (Auto) Jenkins % (Auto) Eos % (Auto) Baso % (Auto) Lymph # (Auto) Jenkins # (Auto) Eos # (Auto) Baso # (Auto) Abs Immat Gran (auto) Absolute Neuts (auto) Absolute Nucleated RBC Nucleated RBC % (auto) O2 Saturation 99.0 ABG pH at Pt Temp 7.21 L ABG pCO2 at Pt Temp 39 ABG pO2 at Pt Temp 117 H ABG HCO3 16 L ABG Base Excess (Actual) -10.5 VBG pH VBG pCO2 VBG pO2 VBG HCO3 VBG O2 Saturation VBG Base Excess Anion Gap 15 Estim Creat Clear Calc 27.8 Estimated GFR 23 POC Glucose 199 H Random Glucose 216 H Lactic Acid Calcium 8.1 L Magnesium Total Bilirubin AST ALT Alkaline Phosphatase B-Natriuretic Peptide Total Protein Albumin Beta-Hydroxybutyrate 0.10 Urine Color Urine Appearance Urine pH Ur Specific [place] Urine Protein Urine Glucose (UA) Urine Ketones Urine Blood Urine Nitrite Ur Leukocyte Esterase Urine RBC Urine WBC Ur Squamous Epith Cells Urine Bacteria Hyaline Casts Urine Yeast Influenza Type A (PCR) Influenza Type B (PCR) RSV RNA Qual (PCR) SARS-CoV-2 RNA (RT-PCR) 01/05/25 01/05/25 12:13 12:28 MCV MCH MCHC RDW Plt Count MPV Immature Gran % (Auto) Neut % (Auto) Lymph % (Auto) Jenkins % (Auto) Eos % (Auto) Baso % (Auto) Lymph # (Auto) Jenkins # (Auto) Eos # (Auto) Baso # (Auto) Abs Immat Gran (auto) Absolute Neuts (auto) Absolute Nucleated RBC Nucleated RBC % (auto) O2 Saturation ABG pH at Pt Temp ABG pCO2 at Pt Temp ABG pO2 at Pt Temp ABG HCO3 ABG Base Excess (Actual) VBG pH 7.27 L VBG pCO2 30 VBG pO2 57 VBG HCO3 14 L VBG O2 Saturation 90.0 VBG Base Excess -11.1 Anion Gap Estim Creat Clear Calc Estimated GFR POC Glucose 194 H Random Glucose Lactic Acid Calcium Magnesium Total Bilirubin AST ALT Alkaline Phosphatase B-Natriuretic Peptide Total Protein Albumin Beta-Hydroxybutyrate Urine Color Urine Appearance Urine pH Ur Specific [place] Urine Protein Urine Glucose (UA) Urine Ketones Urine Blood Urine Nitrite Ur Leukocyte Esterase Urine RBC Urine WBC Ur Squamous Epith Cells Urine Bacteria Hyaline Casts Urine Yeast Influenza Type A (PCR) Influenza Type B (PCR) RSV RNA Qual (PCR) SARS-CoV-2 RNA (RT-PCR) Assessment and Plan (1) Pneumonia: Status: Acute Plan this is a 79-year-old female with history of COPD / TEZ on 2 L of supplemental oxygen, IDDM, HFpEF, ckd4, HTN, HLD who presents to the emergency department with intermittent shortness of breath found to have possible pneumonia and recurrent metabolic acidosis acute on chronic respiratory failure with hypoxia Due to pneumonia. No evidence of COPD exacerbation s/p bipap in ED, currently saturating 98% on baseline 2 L of supplemental oxygen pneumonia does not meet sepsis criteria. Lactic acid within normal limits Continue IV ceftriaxone and azithromycin Follow-up blood cultures possible UTI was rx cefuroxime on 01/03 outpatient but has not filled it antibiotics as above Follow urine culture acute on chronic non-anion gap metabolic acidosis likely due to CKD and jardiance. jardiance on med rec again ( had been instructed to discontinue Jardiance on last admission). will stop start po sodium bicarbonate Nephrology consultation pending follow BMP hyperkalemia likely due to above trending down without intervention, should improve as acidosis improves HFpEF/severe pulm HTN does not appear to be in acute CHF got IV lasix in ED no diuretics on med list - was previously on Bumex. 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 Present on admission continue local wound care tez - does not tolerate CPAP, continue supplemental oxygen DVT prophylaxis -renally dosed Lovenox Code status full code due to increased work of breathing patient will be going to the ICU for further care Quality Stroke Does the patient have a stroke diagnosis?: No VTE Prior VTE?: No VTE Risk Level:: Medical - moderate - high VTE Device Contraindication: Treatment Not Indicated VTE Drug Contraindication: N/A - Med Ordered
--- NOTE | 2025-01-05 12:48 | PHA.MEDREC ---
Addendum entered by Salvador Elmore [facility] 01/05/25 12:59: MED REC CHECKED BY [facility] Original Note: Pharmacy Consult ? Medication Reconciliation Pharmacy has completed the medication reconciliation. Spoke to patient son Robbie over the phone to confirm med list. Robbie was able to confirm all of patient medication. Son states patient is no longer taking Bumetanide 1 mg, Impratropium 0.5 /albuterol 3 mg. Son states patient never started taking Cefuroxime 500 mg because he doesn't have transportation. Son confirmed Lantus is 25 units daily. Son says patent is still taking Jardiance 10 mg. when asked if she stopped at one point he said no Patient had been taking it.
[2025-01-05] MEDS: Sodium Bicarbonate 650 MG TABLET PO (13:07)
[2025-01-05] MEDS: Insulin Lispro 100 UNIT/ML 3 ML VIAL SUBCUT ×3 (13:08→21:18)
[2025-01-05] MEDS: Enoxaparin Sodium 30 MG/0.3 ML SYRINGE SUBCUT (13:08)
--- NOTE | 2025-01-05 13:16 | PM.EVENT ---
Event Note Date of Service: 01/05/25 Event Note: Patient is a 79 Y F w/ hypertension, hyperlipidemia, diabetes mellitus, CHF, COPD c/b chronic respiratory failure on 2 L NC, presenting initially to emergency department on 01/05 w/ dyspnea, found to have chest x-ray c/f pneumonia, as well as metabolic acidosis, though placed on BiPAP w/ initially improvement of dyspnea; patient initially admitted medicine for COPD vs CHF management, though re-developed worsening dyspnea, prompting ICU admission N: no acute issues CV: no acute issues; to closely monitor R: dyspnea, likely d/t pneumonia; underlying COPD and CHF, to consider empiric treatment; HFNC vs BiPAP GI: NPO if on BiPAP, otherwise diabetic diet : chronic renal insufficiency; metabolic acidosis, likely d/t empagliflozin, though does not appear to be in DKA/HSS; to monitor closely H: no acute issues; chemical DVT prophylaxis w/ heparin SQ ID: c/f pneumonia, ceftriaxone/azithromycin E: diabetes mellitus c/b hyperglycemia, insulin sliding scale P: anxiety, agitation, at times re-directable Time Spent With Patient Time: Total time managing care of this patient today ____ minutes.
[2025-01-05] MEDS: Acetaminophen 325 MG TABLET 650 MG PO (13:21)
[2025-01-05 15:04] LABS: Lactic Acid 1.1 mmol/L (0.5-2.0)
[2025-01-05 15:05] LABS: Acetaminophen LAB 4 mcg/mL (<30); Salicylate < 5.0 mg/dL (15-30)
[2025-01-05] MEDS: Calcium Gluconate/NaCl,Iso-Osm 1 GM/50 ML PLAST..BAG IV (15:23)
[2025-01-05] MEDS: Heparin Sodium,Porcine 5,000 UNIT/ML VIAL 5000 UNIT SUBCUT ×2 (15:23→21:20)
[2025-01-05] MEDS: Sodium Bicarbonate 8.4% 50 MEQ/50 ML SYRINGE IVPUSH (15:23)
[2025-01-05] MEDS: 0.9 % Sodium Chloride Flush 3 ML SYRINGE IVFLUSH (15:25)
[2025-01-05] MEDS: methylPREDNISolone Sod Succ 40 MG/ML VIAL IVPUSH (15:31)
[2025-01-05] MEDS: Albuterol/Iprat 2.5/0.5MG 3 ML AMPUL.NEB INHALE ×2 (16:21→20:16)
[2025-01-05 17:17] LABS: Glucose, Whole Blood 180 mg/dL (60-115)
[2025-01-05] MEDS: Furosemide 20 MG/2 ML VIAL IVPUSH (18:17)
[2025-01-05 18:30] LABS: VBG Base Excess -9.3 mmol/L; VBG HCO3 14 mmol/L (22-26); VBG pCO2 25 mmHg; VBG pH 7.35 (7.32-7.43); VBG pO2 169 mmHg
[2025-01-05 18:30] LABS: Venous Blood Gas Refer to POC result
[2025-01-05 18:38] LABS: Anion Gap 14 (12-20); Blood Urea Nitrogen 77 mg/dL (9-16); Calcium 7.9 mg/dL (8.4-10.2); Carbon Dioxide 16 mmol/L (22-29); Chloride 117 mmol/L (96-108); Creatinine Clr Calc Pharmacy 26.7; Estimated Glomerular Filt Rate 22; Glucose Random 236 mg/dL (60-115); Magnesium 2.6 mg/dL (1.6-2.6); Phosphorus 4.7 mg/dL (2.7-4.5); Potassium 5.2 mmol/L (3.3-5.1); Sodium 142 mmol/L (135-145)
--- NOTE | 2025-01-05 19:23 | HE.ICUCC ---
Addendum entered by Danica Moeller RN 01/06/25 20:04: Not vented. Original Note: ICU Critical Care Nursing Note ICU Day #:1 Vent Day #:1 Neuro:Alert and orientedx4, forgetful vague at times, anxious Cardiac:SR on arrival to ICU, SB currently, edema to upper dorcas area Resp:SOB at rest anxious GI/:Chronic Moyer in place, patient states it was placed 1week ago. Endocrine:POC covered with Lispro sliding scale as ordered, see MAR Integumentary/Musculoskeletal:small open areas noted to bilateral outer under pandus, triad applied, small open areas to buttucks triad and pink foam applied. bilateral redness to lower extremities, bleachable, scattered bruising to bilateral forearms Psychosocial (family etc.):son HCP and caregiver arrived to unit, oriented to unit, CHG cloths used to wash patient up, repositioned to side and new IV to right AC placed via US.
[2025-01-05 20:41] LABS: Glucose, Whole Blood 291 mg/dL (60-115)
[2025-01-05] MEDS: Insulin Glargine,Hum.rec.anlog 100 UNIT/ML 10 ML VIAL 18 UNIT SUBCUT (21:17)
[2025-01-05] MEDS: Atorvastatin Calcium 40 MG TABLET PO (21:17)
[2025-01-06] VITALS (26 sets, daily range): BP systolic 110–149; BP diastolic 37–96; PULSE 57–89; RESP 16–39; TEMP 36.3–36.7; O2SAT 86–99; BMI 39.1
[2025-01-06 00:29] LABS: VBG Base Excess -9.7 mmol/L; VBG HCO3 17 mmol/L (22-26); VBG pCO2 44 mmHg; VBG pO2 56 mmHg
[2025-01-06] MEDS: LORazepam 2 MG/ML VIAL 0.5 MG IVPUSH ×3 (00:36→21:57)
[2025-01-06] MEDS: 0.9 % Sodium Chloride Flush 3 ML SYRINGE IVFLUSH ×4 (00:39→22:02)
[2025-01-06] MEDS: Sodium Bicarbonate 8.4% 50 MEQ/50 ML SYRINGE IVPUSH (00:59)
[2025-01-06 04:58] LABS: VBG HCO3 20 mmol/L (22-26); VBG pCO2 48 mmHg; VBG pH 7.22 (7.32-7.43); VBG pO2 60 mmHg
[2025-01-06 05:02] LABS: Basophils Percent Auto 0.5 % (0-2); Eosinophils Percent Auto 0.2 % (0-4); Hematocrit 27.8 % (37.0-47.0); Hemoglobin 8.6 g/dl (12.0-16.0); Imm Gran Abs Auto 0.03 X10*3/uL (0.00-0.03); Imm Gran Pct Auto 0.7 % (0.0-0.4); Lymphocytes Absolute Auto 0.2 X10*3/uL (1.2-4.9); Lymphocytes Percent Auto 4.3 % (20-40); MANUAL DIFF FLAG SCAN; Mean Corpuscular HGB Conc 30.9 g/dl (31.0-35.0); Mean Corpuscular Hemoglobin 29.7 pg (27.0-33.0); Mean Corpuscular Volume 95.9 fL (80.0-98.0); Mean Platelet Volume 9.1 fL (9.4-12.3); Monocytes Absolute Auto 0.2 X10*3/uL (0.1-1.2); Monocytes Percent Auto 4.1 % (2-11); NRBC Pct Auto 0.5 /100WBC (0.0-0.2); Neutrophils Percent Auto 90.2 % (45-73); Platelet Count 246 X10*3/uL (160-400); Red Cell Distribution Width 17.7 % (11.0-16.0); SCAN SMEAR FLAG 1; White Blood Count 4.4 X10*3/uL (4.8-10.8)
[2025-01-06 05:16] LABS: Venous Blood Gas Refer to POC result
[2025-01-06 05:17] LABS: Venous Blood Gas Refer to POC result
[2025-01-06 05:22] LABS: Anion Gap 14 (12-20); Blood Urea Nitrogen 72 mg/dL (9-16); Calcium 8.3 mg/dL (8.4-10.2); Carbon Dioxide 19 mmol/L (22-29); Chloride 114 mmol/L (96-108); Creatinine Clr Calc Pharmacy 27.5; Estimated Glomerular Filt Rate 23; Glucose Random 326 mg/dL (60-115); Magnesium 2.7 mg/dL (1.6-2.6); Phosphorus 4.4 mg/dL (2.7-4.5); Potassium 5.1 mmol/L (3.3-5.1); Sodium 142 mmol/L (135-145)
[2025-01-06 05:28] LABS: SLIDE REVIEW VERIFIED
[2025-01-06] MEDS: Heparin Sodium,Porcine 5,000 UNIT/ML VIAL 5000 UNIT SUBCUT ×3 (05:57→21:42)
[2025-01-06] MEDS: Levothyroxine Sodium 100 MCG/5 ML VIAL IVPUSH (05:58)
--- NOTE | 2025-01-06 07:10 | PC.NURSE ---
Critical Care Nursing Note 01-06-2025 0657 Neuro:alert and oriented, vague, anxious, frequent reassurance Cardiac: sinus rhythm on telemetry Resp: 1L NC, CPAP with 2L GI/: francisco Endocrine: sliding scale Integumentary/Musculoskeletal:? bilateral lower extremities red, warm, taut; groin red Psychosocial (family etc.): ID:? azythromycin, ceftriaxone Central Lines:N/A Events: patient placed on CPAP after midnight VBG resulted, bicarb administered? Plan moving forward:repeat blood gas
[2025-01-06 07:31] LABS: Glucose, Whole Blood 217 mg/dL (60-115)
--- NOTE | 2025-01-06 08:13 | PM.CCPN ---
Subjective Subjective Date of Service: 01/06/25 Interval History: no significant overnight events; persistent metabolic acidosis; of note, patient w/ known TEZ necessitating non-invasive, though non-compliant, requires significant verbal redirection to tolerate CPAP; has been told numerous times and ways that non-invasive is strongly recommended Critical Care Time (minutes): 0 Physical Exam Vital Signs: Vital Signs: Last Vital Signs Temp 97.8 F 01/06/25 00:00 Pulse 89 01/06/25 07:00 Resp 39 H 01/06/25 07:00 BP 116/42 L 01/06/25 07:00 Pulse Ox 92 01/06/25 07:00 O2 Del Method Nasal Cannula 01/06/25 07:00 O2 Flow Rate 2 01/06/25 07:00 FiO2 24 01/05/25 06:40 Oxygen Flow Rate 4 01/05/25 02:06 BMI result Body Mass Index 40.1 Const: General: cooperative, healthy appearing, comfortable, no acute distress, well developed, alert, awake and Physically active Orientation/consciousness: patient oriented x3 HEENT: Head: Yes normal to inspection, Yes normocephalic and Yes atraumatic Eyes: General: appearance normal, both eyes and all related structures Neck: Neck: Yes normal visual inspection, Yes full ROM, Yes no meningeal signs, Yes trachea midline and Yes supple Chest: Chest palpation & inspection: normal inspection of the chest Resp: Other: no appreciable overt rales, rhonchi, wheezing Effort & Inspection: normal respiratory effort Cardio: Rate: regular rate Rhythm: regular rhythm GI: Inspection: Yes normal to inspection, No Abdominal wall edema and No distended Palpation (GI): Soft to palpation, not firm, nontender, no guarding and not rigid Skin: General skin exam: no rashes or lesions noted Neuro: General: patient oriented x3, tone normal, moves all extremities, no meningeal signs and no focal motor deficits Extrem: Other: appreciable erythema, edema bilateral legs w/o appreciable purulence, likely chronic venous stasis changes General: Yes normal to inspection, Yes full ROM and Yes capillary refill normal Psych: Other: anxiety and uncooperative necessitating significant verbal re-direction Objective Data Labs 01/06/25 04:50 01/06/25 04:50 Labs: Laboratory Results - last 24 hr 01/05/25 01/05/25 01/05/25 08:43 10:23 11:58 WBC RBC Hgb Hct MCV MCH MCHC RDW Plt Count MPV Immature Gran % (Auto) Neut % (Auto) Lymph % (Auto) [place] % (Auto) Eos % (Auto) Baso % (Auto) Lymph # (Auto) [place] # (Auto) Eos # (Auto) Baso # (Auto) Abs Immat Gran (auto) Absolute Neuts (auto) Absolute Nucleated RBC Nucleated RBC % (auto) Smear Tech's Comments O2 Saturation 98.0 99.0 ABG pH at Pt Temp 7.24 L 7.21 L ABG pCO2 at Pt Temp 36 39 ABG pO2 at Pt Temp 94 117 H ABG HCO3 15 L 16 L ABG Base Excess (Actual) -10.5 -10.5 VBG pH VBG pCO2 VBG pO2 VBG HCO3 VBG O2 Saturation VBG Base Excess Sodium Potassium Chloride Carbon Dioxide Anion Gap BUN Creatinine Estim Creat Clear Calc Estimated GFR POC Glucose 199 H Random Glucose Lactic Acid Calcium Phosphorus Magnesium Albumin Beta-Hydroxybutyrate Procalcitonin Salicylates Acetaminophen 01/05/25 01/05/25 01/05/25 12:06 12:13 12:28 WBC RBC Hgb Hct MCV MCH MCHC RDW Plt Count MPV Immature Gran % (Auto) Neut % (Auto) Lymph % (Auto) [place] % (Auto) Eos % (Auto) Baso % (Auto) Lymph # (Auto) [place] # (Auto) Eos # (Auto) Baso # (Auto) Abs Immat Gran (auto) Absolute Neuts (auto) Absolute Nucleated RBC Nucleated RBC % (auto) Smear Tech's Comments O2 Saturation ABG pH at Pt Temp ABG pCO2 at Pt Temp ABG pO2 at Pt Temp ABG HCO3 ABG Base Excess (Actual) VBG pH 7.27 L VBG pCO2 30 VBG pO2 57 VBG HCO3 14 L VBG O2 Saturation 90.0 VBG Base Excess -11.1 Sodium 142 Potassium 5.2 H Chloride 116 H Carbon Dioxide 16 L Anion Gap 15 BUN 74 H Creatinine 2.08 H Estim Creat Clear Calc 27.8 Estimated GFR 23 POC Glucose 194 H Random Glucose 216 H Lactic Acid Calcium 8.1 L Phosphorus Magnesium Albumin Beta-Hydroxybutyrate 0.10 Procalcitonin 0.20 Salicylates Acetaminophen 01/05/25 01/05/25 01/05/25 14:39 17:09 18:14 WBC RBC Hgb Hct MCV MCH MCHC RDW Plt Count MPV Immature Gran % (Auto) Neut % (Auto) Lymph % (Auto) [place] % (Auto) Eos % (Auto) Baso % (Auto) Lymph # (Auto) [place] # (Auto) Eos # (Auto) Baso # (Auto) Abs Immat Gran (auto) Absolute Neuts (auto) Absolute Nucleated RBC Nucleated RBC % (auto) Smear Tech's Comments O2 Saturation ABG pH at Pt Temp ABG pCO2 at Pt Temp ABG pO2 at Pt Temp ABG HCO3 ABG Base Excess (Actual) VBG pH VBG pCO2 VBG pO2 VBG HCO3 VBG O2 Saturation VBG Base Excess Sodium 142 Potassium 5.2 H Chloride 117 H Carbon Dioxide 16 L Anion Gap 14 BUN 77 H Creatinine 2.17 H Estim Creat Clear Calc 26.7 Estimated GFR 22 POC Glucose 180 H Random Glucose 236 H Lactic Acid 1.1 Calcium 7.9 L Phosphorus 4.7 H Magnesium 2.6 Albumin Beta-Hydroxybutyrate Procalcitonin Salicylates < 5.0 L Acetaminophen 4 01/05/25 01/05/25 01/06/25 18:25 20:39 00:25 WBC RBC Hgb Hct MCV MCH MCHC RDW Plt Count MPV Immature Gran % (Auto) Neut % (Auto) Lymph % (Auto) [place] % (Auto) Eos % (Auto) Baso % (Auto) Lymph # (Auto) [place] # (Auto) Eos # (Auto) Baso # (Auto) Abs Immat Gran (auto) Absolute Neuts (auto) Absolute Nucleated RBC Nucleated RBC % (auto) Smear Tech's Comments O2 Saturation ABG pH at Pt Temp ABG pCO2 at Pt Temp ABG pO2 at Pt Temp ABG HCO3 ABG Base Excess (Actual) VBG pH 7.35 7.20 L* VBG pCO2 25 44 VBG pO2 169 56 VBG HCO3 14 L 17 L VBG O2 Saturation 99.0 86.0 VBG Base Excess -9.3 -9.7 Sodium Potassium Chloride Carbon Dioxide Anion Gap BUN Creatinine Estim Creat Clear Calc Estimated GFR POC Glucose 291 H Random Glucose Lactic Acid Calcium Phosphorus Magnesium Albumin Beta-Hydroxybutyrate Procalcitonin Salicylates Acetaminophen 01/06/25 01/06/25 01/06/25 04:50 04:55 07:28 WBC 4.4 L RBC 2.90 L Hgb 8.6 L Hct 27.8 L MCV 95.9 MCH 29.7 MCHC 30.9 L RDW 17.7 H Plt Count 246 MPV 9.1 L Immature Gran % (Auto) 0.7 H Neut % (Auto) 90.2 H Lymph % (Auto) 4.3 L [place] % (Auto) 4.1 Eos % (Auto) 0.2 Baso % (Auto) 0.5 Lymph # (Auto) 0.2 L [place] # (Auto) 0.2 Eos # (Auto) 0.0 Baso # (Auto) 0.0 Abs Immat Gran (auto) 0.03 Absolute Neuts (auto) 4.0 Absolute Nucleated RBC 0.020 H Nucleated RBC % (auto) 0.5 H Smear Tech's Comments VERIFIED O2 Saturation ABG pH at Pt Temp ABG pCO2 at Pt Temp ABG pO2 at Pt Temp ABG HCO3 ABG Base Excess (Actual) VBG pH 7.22 L VBG pCO2 48 VBG pO2 60 VBG HCO3 20 L VBG O2 Saturation 90.0 VBG Base Excess -7.0 Sodium 142 Potassium 5.1 Chloride 114 H Carbon Dioxide 19 L Anion Gap 14 BUN 72 H Creatinine 2.11 H Estim Creat Clear Calc 27.5 Estimated GFR 23 POC Glucose 217 H Random Glucose 326 H Lactic Acid Calcium 8.3 L Phosphorus 4.4 Magnesium 2.7 H Albumin 3.0 L Beta-Hydroxybutyrate Procalcitonin Salicylates Acetaminophen Microbiology Microbiology Results: Microbiology 01/05/25 04:27 Blood - Venous Blood Culture - Preliminary No growth after 24 hours. 01/05/25 04:26 Blood - Venous Blood Culture - Preliminary No growth after 24 hours. Progress Note: A&P Assessment and plan (1) Pneumonia: Status: Acute (2) COPD (chronic obstructive pulmonary disease): Status: Acute (3) CHF (congestive heart failure): Status: Acute (4) Metabolic acidosis: Status: Acute Plan Patient is a 79 Y F w/ hypertension, hyperlipidemia, diabetes mellitus, CHF, COPD c/b chronic respiratory failure on 2 L NC, presenting initially to emergency department on 01/05 w/ dyspnea, found to have chest x-ray c/f pneumonia, as well as metabolic acidosis, though placed on BiPAP w/ initially improvement of dyspnea; patient initially admitted medicine for COPD vs CHF management, though re-developed worsening dyspnea, prompting ICU admission N: no acute issues CV: no acute issues; to closely monitor R: dyspnea, likely d/t pneumonia; underlying COPD and CHF, to consider empiric treatment; TEZ, recommends CPAP, though non-compliant despite significant efforts by care team GI: diabetic diet : chronic renal insufficiency; metabolic acidosis, likely d/t empagliflozin, though does not appear to be in DKA/HSS; to monitor closely H: no acute issues; chemical DVT prophylaxis w/ heparin SQ ID: c/f pneumonia, ceftriaxone/azithromycin E: diabetes mellitus c/b hyperglycemia, insulin sliding scale P: anxiety, requires significant verbal re-direction Quality Stroke Does the patient have a stroke diagnosis?: No VTE Prior VTE?: No VTE Risk Level:: Medical - moderate - high VTE Device Contraindication: N/A - Device Ordered VTE Drug Contraindication: N/A - Med Ordered
[2025-01-06] MEDS: Insulin Lispro 100 UNIT/ML 3 ML VIAL SUBCUT ×3 (08:44→21:41)
[2025-01-06] MEDS: Calcium Gluconate/NaCl,Iso-Osm 1 GM/50 ML PLAST..BAG IV (08:45)
[2025-01-06] MEDS: Azithromycin 500 MG in 0.9 % Sodium Chloride 250 ML 125 MG IV (08:46)
[2025-01-06] MEDS: cefTRIAXone sodium 1 GM VIAL IVPUSH (08:46)
[2025-01-06] MEDS: Furosemide 20 MG/2 ML VIAL IVPUSH ×2 (08:46→18:47)
[2025-01-06] MEDS: Albuterol/Iprat 2.5/0.5MG 3 ML AMPUL.NEB INHALE ×4 (09:26→19:13)
[2025-01-06] MEDS: Albumin Human 25 % 50 ML 100 ML IV (11:07)
[2025-01-06 11:44] LABS: Glucose, Whole Blood 167 mg/dL (60-115)
[2025-01-06 12:16] LABS: Venous Blood Gas Refer to POC result
[2025-01-06 12:17] LABS: VBG Base Excess -5.6 mmol/L; VBG HCO3 21 mmol/L (22-26); VBG pCO2 50 mmHg; VBG pH 7.23 (7.32-7.43); VBG pO2 60 mmHg
--- NOTE | 2025-01-06 13:40 | MHC.CM.PN ---
Met with pt to review d/c planning needs: pt resides w/son who assists with her daily care. She has [employer] for home O2, MOW and uses a walker, w/c and states her home has grab bars and a w/c ramp. She also just received a power lift chair from the [facility]. Pt states barriers to care include transportation (relies on [facility] w/c van/bus). She also states she hasn't been able to see her PCP, Dr. Mccollum but states she has an appointment in April. She has been using the ED to change her chronic [place]. Discussed importance of keeping PCP appointments for chronic disease management and to be eligible for VNA. D/C plan: return to home via BLS with son and [employer] IMM copy in chart, HCP/MOLST on file and verified.
[2025-01-06] MEDS: methylPREDNISolone Sod Succ 40 MG/ML VIAL IVPUSH (15:37)
[2025-01-06 16:17] LABS: Glucose, Whole Blood 166 mg/dL (60-115)
[2025-01-06 19:34] LABS: VBG Base Excess -4.9 mmol/L; VBG HCO3 19 mmol/L (22-26); VBG pCO2 33 mmHg; VBG pH 7.37 (7.32-7.43); VBG pO2 205 mmHg
[2025-01-06 19:34] LABS: Venous Blood Gas Refer to POC result
[2025-01-06 19:42] LABS: Anion Gap 15 (12-20); Blood Urea Nitrogen 68 mg/dL (9-16); Calcium 7.9 mg/dL (8.4-10.2); Carbon Dioxide 18 mmol/L (22-29); Chloride 114 mmol/L (96-108); Creatinine Clr Calc Pharmacy 30.7; Estimated Glomerular Filt Rate 26; Glucose Random 187 mg/dL (60-115); Magnesium 2.4 mg/dL (1.6-2.6); Phosphorus 4.3 mg/dL (2.7-4.5); Potassium 5.2 mmol/L (3.3-5.1); Sodium 142 mmol/L (135-145)
--- NOTE | 2025-01-06 20:04 | PC.NURSE ---
ICU Day #:2 Neuro:Alert and oriented x 4, forgetful vague at times, anxious Cardiac:SR on arrival to ICU, SR currently, edema to upper [place]or[place] area Resp:SOB at rest anxious GI/:Chronic Moyer in place, patient states it was replaced 1week ago. Endocrine:POC covered with Lispro sliding scale as ordered, see MAR ID continues on Rocephen and Azithromicin IV Integumentary/Musculoskeletal:small open areas noted to bilateral outer under pandus, triad applied, small open areas to buttucks triad and pink foam applied. bilateral redness to lower extremities, bleachable, scattered bruising to bilateral forearms, patient downgraded this afternoon to Med Tele and report called.
[2025-01-06 21:11] LABS: Glucose, Whole Blood 243 mg/dL (60-115)
[2025-01-06] MEDS: Atorvastatin Calcium 40 MG TABLET PO (21:40)
[2025-01-06] MEDS: Insulin Glargine,Hum.rec.anlog 100 UNIT/ML 10 ML VIAL 18 UNIT SUBCUT (21:40)
[2025-01-06] MEDS: Acetaminophen 325 MG TABLET 650 MG PO (21:56)
[2025-01-07] VITALS (12 sets, daily range): BP systolic 133–150; BP diastolic 59–65; PULSE 60–88; RESP 20–24; TEMP 36.4–37.2; O2SAT 92–100
[2025-01-07] MEDS: Levothyroxine Sodium 100 MCG/5 ML VIAL IVPUSH (04:46)
[2025-01-07] MEDS: LORazepam 2 MG/ML VIAL 0.5 MG IVPUSH ×3 (04:46→21:50)
[2025-01-07] MEDS: Heparin Sodium,Porcine 5,000 UNIT/ML VIAL 5000 UNIT SUBCUT ×3 (04:46→21:45)
[2025-01-07] MEDS: Acetaminophen 325 MG TABLET 650 MG PO ×2 (04:49→21:55)
[2025-01-07 07:03] LABS: MANUAL DIFF FLAG NO
[2025-01-07 07:06] LABS: Basophils Percent Auto 0.5 % (0-2); Eosinophils Percent Auto 0.2 % (0-4); Hematocrit 26.6 % (37.0-47.0); Imm Gran Abs Auto 0.04 X10*3/uL (0.00-0.03); Imm Gran Pct Auto 0.7 % (0.0-0.4); Lymphocytes Absolute Auto 0.4 X10*3/uL (1.2-4.9); Lymphocytes Percent Auto 7.2 % (20-40); Mean Corpuscular HGB Conc 30.1 g/dl (31.0-35.0); Mean Corpuscular Hemoglobin 29.6 pg (27.0-33.0); Mean Corpuscular Volume 98.5 fL (80.0-98.0); Mean Platelet Volume 9.7 fL (9.4-12.3); Monocytes Absolute Auto 0.3 X10*3/uL (0.1-1.2); Monocytes Percent Auto 5.9 % (2-11); NRBC Pct Auto 0.4 /100WBC (0.0-0.2); Neutrophils Absolute Auto 4.8 x10*3/uL (2.0-8.3); Neutrophils Percent Auto 85.5 % (45-73); Platelet Count 224 X10*3/uL (160-400); Red Cell Distribution Width 17.9 % (11.0-16.0); White Blood Count 5.6 X10*3/uL (4.8-10.8)
[2025-01-07 07:18] LABS: Anion Gap 14 (12-20); Blood Urea Nitrogen 75 mg/dL (9-16); Calcium 7.9 mg/dL (8.4-10.2); Carbon Dioxide 21 mmol/L (22-29); Chloride 113 mmol/L (96-108); Creatinine Clr Calc Pharmacy 29.4; Estimated Glomerular Filt Rate 25; Glucose Random 303 mg/dL (60-115); Magnesium 2.5 mg/dL (1.6-2.6); Phosphorus 4.9 mg/dL (2.7-4.5); Sodium 143 mmol/L (135-145)
[2025-01-07 07:18] LABS: Glucose, Whole Blood 238 mg/dL (60-115)
[2025-01-07] MEDS: Albuterol/Iprat 2.5/0.5MG 3 ML AMPUL.NEB INHALE ×4 (07:31→18:48)
[2025-01-07] MEDS: Insulin Lispro 100 UNIT/ML 3 ML VIAL SUBCUT ×4 (08:07→21:48)
[2025-01-07] MEDS: Azithromycin 500 MG in 0.9 % Sodium Chloride 250 ML 125 MG IV (08:08)
[2025-01-07] MEDS: 0.9 % Sodium Chloride Flush 3 ML SYRINGE IVFLUSH ×2 (08:08→16:43)
[2025-01-07] MEDS: Furosemide 20 MG/2 ML VIAL IVPUSH ×2 (08:08→18:06)
[2025-01-07] MEDS: Sodium Bicarbonate 650 MG TABLET PO ×3 (08:08→21:45)
--- NOTE | 2025-01-07 09:58 | P.PNIM_ITS ---
Subjective Subjective Date of Service: 01/07/25 Interval History: improving Physical Exam 2 Vital Signs: Vital Signs: Last Vital Signs Temp 97.5 F 01/07/25 07:22 Pulse 64 01/07/25 07:31 Resp 22 H 01/07/25 07:31 BP 140/64 H 01/07/25 07:22 Pulse Ox 97 01/07/25 07:22 O2 Del Method Nasal Cannula 01/07/25 07:22 O2 Flow Rate 1 01/07/25 07:22 FiO2 24 01/05/25 06:40 Oxygen Flow Rate 4 01/05/25 02:06 BMI result Body Mass Index 39.1 Const: General: cooperative, healthy appearing, comfortable, no acute distress, well developed, alert, awake and Physically active O rientation/consciousness: patient oriented x3 HEENT: Head: Yes normal to inspection, Yes normocephalic and Yes atraumatic Eyes: General: appearance normal, both eyes and all related structures Neck: Neck: Yes normal visual inspection, Yes full ROM, Yes no meningeal signs, Yes trachea midline and Yes supple Chest: Chest palpation & inspection: normal inspection of the chest Resp: Other: no appreciable overt rales, rhonchi, wheezing Effort & Inspection: normal respiratory effort Cardio: Rate: regular rate Rhythm: regular rhythm GI: Inspection: Yes normal to inspection, No Abdominal wall edema and No distended Palpation (GI): Soft to palpation, not firm, nontender, no guarding and not rigid Skin: General skin exam: no rashes or lesions noted Neuro: General: patient oriented x3, tone normal, moves all extremities, no meningeal signs and no focal motor deficits Extrem: Other: appreciable erythema, edema bilateral legs w/o appreciable purulence, likely chronic venous stasis changes General: Yes normal to inspection, Yes full ROM and Yes capillary refill normal Psych: Other: anxiety and uncooperative necessitating significant verbal re-direction Objective Data Active Medications Acetaminophen (Acetaminophen 325 Mg Tablet) 650 mg PO Q6H PRN PRN Reason: Pain, Mild 1-3,fever,headache Last Admin: 01/07/25 04:49 Dose: 650 mg Documented By: NICOLA Albuterol Sulfate (Albuterol Sulfate 90 Mcg 8 Gm Inhaler) 2 puff INHALE Q2H PRN PRN Reason: shortness of breath or wheezing Albuterol/Ipratropium (Albuterol/Iprat 2.5/0.5mg 3 Ml Ampul.Neb) 3 ml INHALE RQ4H WHILE AWAKE [facility] Last Admin: 01/07/25 07:31 Dose: 3 ml Documented By: RADHA Atorvastatin Calcium (Atorvastatin Calcium 40 Mg Tablet) 40 mg PO BEDTIME [facility] Last Admin: 01/06/25 21:40 Dose: 40 mg Documented By: NICOLA Ceftriaxone Sodium (Ceftriaxone Sodium 1 Gm Vial) 1 gm IVPUSH Q24H [facility] Last Admin: 01/06/25 08:46 Dose: 1 gm Documented By: CARLEE Dextrose (Dextrose 50 % 25 Gm/50 Ml Syringe) 25 gm IVPUSH Q15M PRN; Protocol PRN Reason: per Hypoglycemia Standing Ord. Furosemide (Furosemide 20 Mg/2 Ml Vial) 20 mg IVPUSH BID@0900,1800 [facility]; Protocol Last Admin: 01/07/25 08:08 Dose: 20 mg Documented By: SUZI Glucose (Glucose Gel 15 Gm Gel..Gram.) 15 gm PO Q15M PRN; Protocol PRN Reason: per Hypoglycemia Standing Ord. Heparin Sodium (Porcine) (Heparin Sodium,Porcine 5,000 Unit/Ml Vial) 5,000 unit SUBCUT Q8H [facility] Last Admin: 01/07/25 04:46 Dose: 5,000 unit Documented By: NICOLA Azithromycin 500 mg/ Sodium (Chloride) 250 mls @ 125 mls/hr IV Q24H [facility] Last Admin: 01/07/25 08:08 Dose: 125 mls/hr Documented By: SUZI Insulin Glargine (Insulin Glargine,Hum.Rec.Anlog 100 Unit/Ml 10 Ml Vial) 18 unit SUBCUT BEDTIME [facility] Last Admin: 01/06/25 21:40 Dose: 18 unit Documented By: NICOLA Insulin Human Lispro (Insulin Lispro 100 Unit/Ml 3 Ml Vial) 0 unit SUBCUT QIDACHS [facility]; Protocol Last Admin: 01/07/25 08:07 Dose: 4 unit Documented By: SUZI Levothyroxine Sodium (Levothyroxine Sodium 100 Mcg/5 Ml Vial) 100 mcg IVPUSH DAILY@0600 [facility] Last Admin: 01/07/25 04:46 Dose: 100 mcg Documented By: NICOLA Lorazepam (Lorazepam 2 Mg/Ml Vial) 0.5 mg IVPUSH Q6H PRN PRN Reason: Anxiety Last Admin: 01/07/25 04:46 Dose: 0.5 mg Documented By: NICOLA Methylprednisolone Sodium Succinate (Methylprednisolone Sod Succ 40 Mg/Ml Vial) 40 mg IVPUSH Q24H [facility] Last Admin: 01/06/25 15:37 Dose: 40 mg Documented By: CARLEE Sodium Bicarbonate (Sodium Bicarbonate 650 Mg Tablet) 650 mg PO TID [facility] Last Admin: 01/07/25 08:08 Dose: 650 mg Documented By: SUZI Sodium Chloride (0.9 % Sodium Chloride Flush 3 Ml Syringe) 3 ml IVFLUSH QSHIFT [facility] Last Admin: 01/07/25 08:08 Dose: 3 ml Documented By: EMELITEKR Labs 01/07/25 06:30 01/07/25 06:30 Labs: Laboratory Results - last 24 hr 01/06/25 01/06/25 01/06/25 11:32 12:12 16:10 MCV MCH MCHC RDW Plt Count MPV Immature Gran % (Auto) Neut % (Auto) Lymph % (Auto) [place] % (Auto) Eos % (Auto) Baso % (Auto) Lymph # (Auto) [place] # (Auto) Eos # (Auto) Baso # (Auto) Abs Immat Gran (auto) Absolute Neuts (auto) Absolute Nucleated RBC Nucleated RBC % (auto) VBG pH 7.23 L VBG pCO2 50 VBG pO2 60 VBG HCO3 21 L VBG O2 Saturation 89.0 VBG Base Excess -5.6 Anion Gap Estim Creat Clear Calc Estimated GFR POC Glucose 167 H 166 H Random Glucose Calcium Phosphorus Magnesium 01/06/25 01/06/25 01/06/25 19:18 19:28 21:07 MCV MCH MCHC RDW Plt Count MPV Immature Gran % (Auto) Neut % (Auto) Lymph % (Auto) [place] % (Auto) Eos % (Auto) Baso % (Auto) Lymph # (Auto) [place] # (Auto) Eos # (Auto) Baso # (Auto) Abs Immat Gran (auto) Absolute Neuts (auto) Absolute Nucleated RBC Nucleated RBC % (auto) VBG pH 7.37 VBG pCO2 33 VBG pO2 205 VBG HCO3 19 L VBG O2 Saturation 99.0 VBG Base Excess -4.9 Anion Gap 15 Estim Creat Clear Calc 30.7 Estimated GFR 26 POC Glucose 243 H Random Glucose 187 H Calcium 7.9 L Phosphorus 4.3 Magnesium 2.4 01/07/25 01/07/25 06:30 07:13 MCV 98.5 H MCH 29.6 MCHC 30.1 L RDW 17.9 H Plt Count 224 MPV 9.7 Immature Gran % (Auto) 0.7 H Neut % (Auto) 85.5 H Lymph % (Auto) 7.2 L [place] % (Auto) 5.9 Eos % (Auto) 0.2 Baso % (Auto) 0.5 Lymph # (Auto) 0.4 L [place] # (Auto) 0.3 Eos # (Auto) 0.0 Baso # (Auto) 0.0 Abs Immat Gran (auto) 0.04 H Absolute Neuts (auto) 4.8 Absolute Nucleated RBC 0.020 H Nucleated RBC % (auto) 0.4 H VBG pH VBG pCO2 VBG pO2 VBG HCO3 VBG O2 Saturation VBG Base Excess Anion Gap 14 Estim Creat Clear Calc 29.4 Estimated GFR 25 POC Glucose 238 H Random Glucose 303 H Calcium 7.9 L Phosphorus 4.9 H Magnesium 2.5 Microbiology Microbiology Results: Microbiology 01/05/25 Unknown Urine Culture - Final Urine Catheterized - Moyer Catheter Providencia stuartii 01/05/25 04:27 Blood Culture - Preliminary Blood - Venous No growth after 48 hours. 01/05/25 04:26 Blood Culture - Preliminary Blood - Venous No growth after 48 hours. Assessment and Plan (1) Anxiety: Status: Acute Plan 79F PMH chronic hypoxic respiratory failure on 2 L home O2 due to COPD, morbid obesity with obstructive sleep apnea noncompliant with CPAP, chronic right-sided and diastolic CHF, CKD 4, diabetes, hypertension, hyperlipidemia presented with shortness of breath. On initial presentation had combined acute respiratory acidosis and acute on chronic metabolic acidosis. Was treated with BiPAP and then transferred to the intensive care unit for persistent acidosis. Patient's respiratory status improved and was downgraded to medical floor on 01/06/2025. Acute on chronic hypoxic and hypercapnic respiratory failure due to COPD with acute decompensation, acute on chronic diastolic CHF and possible pneumonia Now back at baseline Continue ceftriaxone azithromycin Steroids and nebs Likely additional element of anxiety Acute on chronic metabolic acidosis Nephro eval P.o. bicarb Monitor Urinary tract infection Due to Providencia, continue ceftriaxone Hyperkalemia Improving Diabetes Insulin Hypothyroid Levothyroxine Morbid obesity/TEZ CPAP at night, weight loss Chronic venous stasis and stage I pressure wound of coccyx Continue local wound care DVT prophylaxis with Lovenox Full Code reason for continued hospitalization: Still acidotic Quality Stroke Does the patient have a stroke diagnosis?: No VTE Prior VTE?: No VTE Risk Level:: Medical - moderate - high VTE Device Contraindication: N/A - Device Ordered VTE Drug Contraindication: N/A - Med Ordered
[2025-01-07 11:19] LABS: Glucose, Whole Blood 266 mg/dL (60-115)
[2025-01-07] MEDS: cefTRIAXone sodium 1 GM VIAL IVPUSH (11:21)
[2025-01-07] MEDS: methylPREDNISolone Sod Succ 40 MG/ML VIAL IVPUSH (13:36)
[2025-01-07 16:36] LABS: Glucose, Whole Blood 154 mg/dL (60-115)
[2025-01-07 21:32] LABS: Glucose, Whole Blood 298 mg/dL (60-115)
[2025-01-07] MEDS: Atorvastatin Calcium 40 MG TABLET PO (21:45)
[2025-01-07] MEDS: Insulin Glargine,Hum.rec.anlog 100 UNIT/ML 10 ML VIAL 18 UNIT SUBCUT (21:47)
[2025-01-08] VITALS (10 sets, daily range): BP systolic 135–177; BP diastolic 63–74; PULSE 63–82; RESP 16–24; TEMP 36.1–37.2; O2SAT 92–98
[2025-01-08] MEDS: LORazepam 2 MG/ML VIAL 0.5 MG IVPUSH ×3 (04:18→16:07)
[2025-01-08] MEDS: Levothyroxine Sodium 100 MCG/5 ML VIAL IVPUSH (04:18)
[2025-01-08] MEDS: 0.9 % Sodium Chloride Flush 3 ML SYRINGE IVFLUSH ×3 (04:22→16:22)
[2025-01-08] MEDS: Heparin Sodium,Porcine 5,000 UNIT/ML VIAL 5000 UNIT SUBCUT ×3 (06:23→21:01)
[2025-01-08 06:46] LABS: MANUAL DIFF FLAG NO
[2025-01-08 06:58] LABS: Basophils Percent Auto 0.4 % (0-2); Eosinophils Absolute Auto 0.1 X10*3/uL (0.0-0.4); Eosinophils Percent Auto 0.7 % (0-4); Hematocrit 26.7 % (37.0-47.0); Imm Gran Abs Auto 0.07 X10*3/uL (0.00-0.03); Lymphocytes Absolute Auto 0.5 X10*3/uL (1.2-4.9); Lymphocytes Percent Auto 7.6 % (20-40); Mean Corpuscular Hemoglobin 29.5 pg (27.0-33.0); Mean Corpuscular Volume 98.5 fL (80.0-98.0); Mean Platelet Volume 9.8 fL (9.4-12.3); Monocytes Absolute Auto 0.4 X10*3/uL (0.1-1.2); Monocytes Percent Auto 6.1 % (2-11); Neutrophils Absolute Auto 5.6 x10*3/uL (2.0-8.3); Neutrophils Percent Auto 84.2 % (45-73); Platelet Count 225 X10*3/uL (160-400); Red Blood Count 2.71 X10*6/uL (4.20-5.50); Red Cell Distribution Width 17.8 % (11.0-16.0); White Blood Count 6.7 X10*3/uL (4.8-10.8)
[2025-01-08 07:09] LABS: Anion Gap 15 (12-20); Blood Urea Nitrogen 66 mg/dL (9-16); Calcium 7.7 mg/dL (8.4-10.2); Carbon Dioxide 22 mmol/L (22-29); Chloride 113 mmol/L (96-108); Creatinine Clr Calc Pharmacy 31.7; Estimated Glomerular Filt Rate 27; Glucose Random 190 mg/dL (60-115); Magnesium 2.4 mg/dL (1.6-2.6); Phosphorus 4.1 mg/dL (2.7-4.5); Potassium 4.8 mmol/L (3.3-5.1); Sodium 145 mmol/L (135-145)
[2025-01-08 07:24] LABS: Glucose, Whole Blood 173 mg/dL (60-115)
[2025-01-08] MEDS: Azithromycin 500 MG in 0.9 % Sodium Chloride 250 ML 125 MG IV (08:41)
[2025-01-08] MEDS: Insulin Lispro 100 UNIT/ML 3 ML VIAL SUBCUT ×4 (08:41→20:59)
--- NOTE | 2025-01-08 09:27 | P.PNIM_ITS ---
Subjective Subjective Date of Service: 01/08/25 Interval History: improving Physical Exam 2 Vital Signs: Vital Signs: Last Vital Signs Temp 97.7 F 01/08/25 08:00 Pulse 65 01/08/25 08:00 Resp 22 H 01/08/25 08:00 BP 177/74 H 01/08/25 08:00 Pulse Ox 98 01/08/25 08:00 O2 Del Method CPAP 01/08/25 08:00 O2 Flow Rate 1 01/07/25 19:22 FiO2 24 01/05/25 06:40 Oxygen Flow Rate 4 01/05/25 02:06 BMI result Body Mass Index 39.1 Const: General: cooperative, healthy appearing, comfortable, no acute distress, well developed, alert, awake and Physically active O rientation/consciousness: patient oriented x3 HEENT: Head: Yes normal to inspection, Yes normocephalic and Yes atraumatic Eyes: General: appearance normal, both eyes and all related structures Neck: Neck: Yes normal visual inspection, Yes full ROM, Yes no meningeal signs, Yes trachea midline and Yes supple Chest: Chest palpation & inspection: normal inspection of the chest Resp: Other: no appreciable overt rales, rhonchi, wheezing Effort & Inspection: normal respiratory effort Cardio: Rate: regular rate Rhythm: regular rhythm GI: Inspection: Yes normal to inspection, No Abdominal wall edema and No distended Palpation (GI): Soft to palpation, not firm, nontender, no guarding and not rigid Skin: General skin exam: no rashes or lesions noted Neuro: General: patient oriented x3, tone normal, moves all extremities, no meningeal signs and no focal motor deficits Extrem: Other: appreciable erythema, edema bilateral legs w/o appreciable purulence, likely chronic venous stasis changes General: Yes normal to inspection, Yes full ROM and Yes capillary refill normal Psych: Other: anxiety and uncooperative necessitating significant verbal re-direction Objective Data Active Medications Acetaminophen (Acetaminophen 325 Mg Tablet) 650 mg PO Q6H PRN PRN Reason: Pain, Mild 1-3,fever,headache Last Admin: 01/07/25 21:55 Dose: 650 mg Documented By: NICOLA Albuterol Sulfate (Albuterol Sulfate 90 Mcg 8 Gm Inhaler) 2 puff INHALE Q2H PRN PRN Reason: shortness of breath or wheezing Albuterol/Ipratropium (Albuterol/Iprat 2.5/0.5mg 3 Ml Ampul.Neb) 3 ml INHALE RQ4H WHILE AWAKE [facility] Last Admin: 01/08/25 07:48 Dose: Not Given Documented By: SAMRA Non-Admin Reason: Patient Asleep Atorvastatin Calcium (Atorvastatin Calcium 40 Mg Tablet) 40 mg PO BEDTIME [facility] Last Admin: 01/07/25 21:45 Dose: 40 mg Documented By: NICOLA Ceftriaxone Sodium (Ceftriaxone Sodium 1 Gm Vial) 1 gm IVPUSH Q24H [facility] Last Admin: 01/07/25 11:21 Dose: 1 gm Documented By: SUZI Dextrose (Dextrose 50 % 25 Gm/50 Ml Syringe) 25 gm IVPUSH Q15M PRN; Protocol PRN Reason: per Hypoglycemia Standing Ord. Furosemide (Furosemide 20 Mg/2 Ml Vial) 20 mg IVPUSH BID@0900,1800 [facility]; Protocol Last Admin: 01/07/25 18:06 Dose: 20 mg Documented By: SUZI Glucose (Glucose Gel 15 Gm Gel..Gram.) 15 gm PO Q15M PRN; Protocol PRN Reason: per Hypoglycemia Standing Ord. Heparin Sodium (Porcine) (Heparin Sodium,Porcine 5,000 Unit/Ml Vial) 5,000 unit SUBCUT Q8H [facility] Last Admin: 01/08/25 06:23 Dose: 5,000 unit Documented By: NICOLA Azithromycin 500 mg/ Sodium (Chloride) 250 mls @ 125 mls/hr IV Q24H [facility] Last Admin: 01/08/25 08:41 Dose: 125 mls/hr Documented By: SUZI Insulin Glargine (Insulin Glargine,Hum.Rec.Anlog 100 Unit/Ml 10 Ml Vial) 18 unit SUBCUT BEDTIME [facility] Last Admin: 01/07/25 21:47 Dose: 18 unit Documented By: NICOLA Insulin Human Lispro (Insulin Lispro 100 Unit/Ml 3 Ml Vial) 0 unit SUBCUT QIDACHS [facility]; Protocol Last Admin: 01/08/25 08:41 Dose: 2 unit Documented By: SUZI Levothyroxine Sodium (Levothyroxine Sodium 100 Mcg/5 Ml Vial) 100 mcg IVPUSH DAILY@0600 [facility] Last Admin: 01/08/25 04:18 Dose: 100 mcg Documented By: NICOLA Lorazepam (Lorazepam 2 Mg/Ml Vial) 0.5 mg IVPUSH Q6H PRN PRN Reason: Anxiety Last Admin: 01/08/25 04:18 Dose: 0.5 mg Documented By: NICOLA Methylprednisolone Sodium Succinate (Methylprednisolone Sod Succ 40 Mg/Ml Vial) 40 mg IVPUSH Q24H [facility] Last Admin: 01/07/25 13:36 Dose: 40 mg Documented By: SUZI Sodium Bicarbonate (Sodium Bicarbonate 650 Mg Tablet) 650 mg PO TID [facility] Last Admin: 01/07/25 21:45 Dose: 650 mg Documented By: NICOLA Sodium Chloride (0.9 % Sodium Chloride Flush 3 Ml Syringe) 3 ml IVFLUSH QSHIFT [facility] Last Admin: 01/08/25 08:45 Dose: 3 ml Documented By: SUZI Labs 01/08/25 06:22 01/08/25 06:22 Labs: Laboratory Results - last 24 hr 01/07/25 01/07/25 01/07/25 11:15 16:30 21:28 MCV MCH MCHC RDW Plt Count MPV Immature Gran % (Auto) Neut % (Auto) Lymph % (Auto) [place] % (Auto) Eos % (Auto) Baso % (Auto) Lymph # (Auto) [place] # (Auto) Eos # (Auto) Baso # (Auto) Abs Immat Gran (auto) Absolute Neuts (auto) Absolute Nucleated RBC Nucleated RBC % (auto) Anion Gap Estim Creat Clear Calc Estimated GFR POC Glucose 266 H 154 H 298 H Random Glucose Calcium Phosphorus Magnesium 01/08/25 01/08/25 06:22 07:20 MCV 98.5 H MCH 29.5 MCHC 30.0 L RDW 17.8 H Plt Count 225 MPV 9.8 Immature Gran % (Auto) 1.0 H Neut % (Auto) 84.2 H Lymph % (Auto) 7.6 L [place] % (Auto) 6.1 Eos % (Auto) 0.7 Baso % (Auto) 0.4 Lymph # (Auto) 0.5 L [place] # (Auto) 0.4 Eos # (Auto) 0.1 Baso # (Auto) 0.0 Abs Immat Gran (auto) 0.07 H Absolute Neuts (auto) 5.6 Absolute Nucleated RBC 0.000 Nucleated RBC % (auto) 0.0 Anion Gap 15 Estim Creat Clear Calc 31.7 Estimated GFR 27 POC Glucose 173 H Random Glucose 190 H Calcium 7.7 L Phosphorus 4.1 Magnesium 2.4 Microbiology Microbiology Results: Microbiology 01/05/25 Unknown Urine Culture - Final Urine Catheterized - Moyer Catheter Li fatimartii 01/05/25 04:27 Blood Culture - Preliminary Blood - Venous No growth after 48 hours. 01/05/25 04:26 Blood Culture - Preliminary Blood - Venous No growth after 48 hours. Assessment and Plan (1) Anxiety: Status: Acute Plan 79F PMH chronic hypoxic respiratory failure on 2 L home O2 due to COPD, morbid obesity with obstructive sleep apnea noncompliant with CPAP, chronic right-sided and diastolic CHF, CKD 4, diabetes, hypertension, hyperlipidemia presented with shortness of breath. On initial presentation had combined acute respiratory acidosis and acute on chronic metabolic acidosis. Was treated with BiPAP and then transferred to the intensive care unit for persistent acidosis. Patient's respiratory status improved and was downgraded to medical floor on 01/06/2025. Acute on chronic hypoxic and hypercapnic respiratory failure due to COPD with acute decompensation, acute on chronic diastolic CHF and possible pneumonia Now back at baseline Continue ceftriaxone azithromycin Steroids and nebs Likely additional element of anxiety Acute on chronic metabolic acidosis, ?RTA IV Nephro follwoing P.o. bicarb Monitor Urinary tract infection Due to Providencia, continue ceftriaxone Hyperkalemia Improving Diabetes Insulin Hypothyroid Levothyroxine Morbid obesity/TEZ CPAP at night, weight loss Chronic venous stasis and stage I pressure wound of coccyx Continue local wound care DVT prophylaxis with Lovenox Full Code reason for continued hospitalization: Still sob Quality Stroke Does the patient have a stroke diagnosis?: No VTE Prior VTE?: No VTE Risk Level:: Medical - moderate - high VTE Device Contraindication: N/A - Device Ordered VTE Drug Contraindication: N/A - Med Ordered
[2025-01-08] MEDS: Furosemide 20 MG/2 ML VIAL IVPUSH ×2 (09:56→16:44)
[2025-01-08] MEDS: cefTRIAXone sodium 1 GM VIAL IVPUSH (09:56)
[2025-01-08] MEDS: Sodium Bicarbonate 650 MG TABLET PO ×3 (09:56→20:58)
[2025-01-08] MEDS: Albuterol/Iprat 2.5/0.5MG 3 ML AMPUL.NEB INHALE ×3 (10:50→18:47)
[2025-01-08 11:25] LABS: Glucose, Whole Blood 168 mg/dL (60-115)
[2025-01-08 16:03] LABS: Glucose, Whole Blood 173 mg/dL (60-115)
[2025-01-08] MEDS: methylPREDNISolone Sod Succ 40 MG/ML VIAL IVPUSH (16:07)
[2025-01-08 20:54] LABS: Glucose, Whole Blood 266 mg/dL (60-115)
[2025-01-08] MEDS: Insulin Glargine,Hum.rec.anlog 100 UNIT/ML 10 ML VIAL 18 UNIT SUBCUT (20:58)
[2025-01-08] MEDS: Atorvastatin Calcium 40 MG TABLET PO (20:58)
[2025-01-08] MEDS: oxyCODONE HCl Immed Release 5 MG TABLET PO (21:11)
[2025-01-09] VITALS (11 sets, daily range): BP systolic 136–158; BP diastolic 58–73; PULSE 61–78; RESP 18–20; TEMP 36.1–36.6; O2SAT 91–98; BMI 39.1
[2025-01-09] MEDS: LORazepam 2 MG/ML VIAL 0.5 MG IVPUSH ×2 (00:24→04:28)
[2025-01-09] MEDS: Levothyroxine Sodium 100 MCG/5 ML VIAL IVPUSH (04:28)
[2025-01-09] MEDS: Heparin Sodium,Porcine 5,000 UNIT/ML VIAL 5000 UNIT SUBCUT ×3 (04:28→20:35)
[2025-01-09 06:58] LABS: Glucose, Whole Blood 206 mg/dL (60-115)
[2025-01-09 07:11] LABS: MANUAL DIFF FLAG NO
[2025-01-09 07:16] LABS: Basophils Percent Auto 0.2 % (0-2); Eosinophils Percent Auto 0.7 % (0-4); Hematocrit 28.6 % (37.0-47.0); Hemoglobin 8.4 g/dl (12.0-16.0); Imm Gran Abs Auto 0.07 X10*3/uL (0.00-0.03); Imm Gran Pct Auto 1.2 % (0.0-0.4); Lymphocytes Absolute Auto 0.6 X10*3/uL (1.2-4.9); Lymphocytes Percent Auto 10.3 % (20-40); Mean Corpuscular HGB Conc 29.4 g/dl (31.0-35.0); Mean Corpuscular Hemoglobin 29.6 pg (27.0-33.0); Mean Corpuscular Volume 100.7 fL (80.0-98.0); Mean Platelet Volume 9.4 fL (9.4-12.3); Monocytes Absolute Auto 0.4 X10*3/uL (0.1-1.2); Monocytes Percent Auto 6.3 % (2-11); Neutrophils Absolute Auto 4.9 x10*3/uL (2.0-8.3); Neutrophils Percent Auto 81.3 % (45-73); Platelet Count 215 X10*3/uL (160-400); Red Blood Count 2.84 X10*6/uL (4.20-5.50); Red Cell Distribution Width 17.4 % (11.0-16.0)
[2025-01-09 07:29] LABS: Anion Gap 13 (12-20); Blood Urea Nitrogen 63 mg/dL (9-16); Carbon Dioxide 28 mmol/L (22-29); Chloride 110 mmol/L (96-108); Creatinine Clr Calc Pharmacy 35.3; Estimated Glomerular Filt Rate 31; Glucose Random 234 mg/dL (60-115); Magnesium 2.2 mg/dL (1.6-2.6); Phosphorus 4.4 mg/dL (2.7-4.5); Potassium 5.6 mmol/L (3.3-5.1); Sodium 145 mmol/L (135-145)
[2025-01-09] MEDS: Albuterol/Iprat 2.5/0.5MG 3 ML AMPUL.NEB INHALE ×4 (07:37→18:30)
[2025-01-09] MEDS: Furosemide 20 MG/2 ML VIAL IVPUSH ×2 (08:43→18:24)
[2025-01-09] MEDS: Azithromycin 500 MG in 0.9 % Sodium Chloride 250 ML 125 MG IV (08:44)
[2025-01-09] MEDS: cefTRIAXone sodium 1 GM VIAL IVPUSH (08:44)
--- NOTE | 2025-01-09 08:57 | HO.PM.IMPN ---
Subjective Subjective Date of Service: 01/09/25 Interval History: improving Physical Exam Vital Signs: Vital Signs: Last Vital Signs Temp 97.6 F 01/09/25 06:57 Pulse 64 01/09/25 08:11 Resp 20 01/09/25 08:11 BP 143/64 H 01/09/25 06:57 Pulse Ox 97 01/09/25 06:57 O2 Del Method Nasal Cannula 01/09/25 06:57 O2 Flow Rate 2 01/09/25 06:57 FiO2 24 01/05/25 06:40 Oxygen Flow Rate 4 01/05/25 02:06 BMI result Body Mass Index 39.1 Const: General: cooperative, healthy appearing, comfortable, no acute distress, well developed, alert, awake and Physically active Orientation/consciousness: patient oriented x3 HEENT: Head: Yes normal to inspection, Yes normocephalic and Yes atraumatic Eyes: General: appearance normal, both eyes and all related structures Neck: Neck: Yes normal visual inspection, Yes full ROM, Yes no meningeal signs, Yes trachea midline and Yes supple Chest: Chest palpation & inspection: normal inspection of the chest Resp: Other: no appreciable overt rales, rhonchi, wheezing Effort & Inspection: normal respiratory effort Cardio: Rate: regular rate Rhythm: regular rhythm GI: Inspection: Yes normal to inspection, No Abdominal wall edema and No distended Palpation (GI): Soft to palpation, not firm, nontender, no guarding and not rigid Skin: General skin exam: no rashes or lesions noted Neuro: General: patient oriented x3, tone normal, moves all extremities, no meningeal signs and no focal motor deficits Extrem: Other: appreciable erythema, edema bilateral legs w/o appreciable purulence, likely chronic venous stasis changes General: Yes normal to inspection, Yes full ROM and Yes capillary refill normal Psych: Other: anxiety and uncooperative necessitating significant verbal re-direction Objective Data Active Medications Acetaminophen (Acetaminophen 325 Mg Tablet) 650 mg PO Q6H PRN PRN Reason: Pain, Mild 1-3,fever,headache Last Admin: 01/07/25 21:55 Dose: 650 mg Documented By: NICOLA Albuterol Sulfate (Albuterol Sulfate 90 Mcg 8 Gm Inhaler) 2 puff INHALE Q2H PRN PRN Reason: shortness of breath or wheezing Albuterol/Ipratropium (Albuterol/Iprat 2.5/0.5mg 3 Ml Ampul.Neb) 3 ml INHALE RQ4H WHILE AWAKE [facility] Last Admin: 01/09/25 07:37 Dose: 3 ml Documented By: ALBARO Atorvastatin Calcium (Atorvastatin Calcium 40 Mg Tablet) 40 mg PO BEDTIME [facility] Last Admin: 01/08/25 20:58 Dose: 40 mg Documented By: RICKEY Ceftriaxone Sodium (Ceftriaxone Sodium 1 Gm Vial) 1 gm IVPUSH Q24H [facility] Last Admin: 01/08/25 09:56 Dose: 1 gm Documented By: SOPHIA Dextrose (Dextrose 50 % 25 Gm/50 Ml Syringe) 25 gm IVPUSH Q15M PRN; Protocol PRN Reason: per Hypoglycemia Standing Ord. Furosemide (Furosemide 20 Mg/2 Ml Vial) 20 mg IVPUSH BID@0900,1800 [facility]; Protocol Last Admin: 01/08/25 16:44 Dose: 20 mg Documented By: SUZI Glucose (Glucose Gel 15 Gm Gel..Gram.) 15 gm PO Q15M PRN; Protocol PRN Reason: per Hypoglycemia Standing Ord. Heparin Sodium (Porcine) (Heparin Sodium,Porcine 5,000 Unit/Ml Vial) 5,000 unit SUBCUT Q8H [facility] Last Admin: 01/09/25 04:28 Dose: 5,000 unit Documented By: RICKEY Azithromycin 500 mg/ Sodium (Chloride) 250 mls @ 125 mls/hr IV Q24H [facility] Last Infusion: 01/08/25 10:45 Dose: Infused Documented By: SUZI Insulin Glargine (Insulin Glargine,Hum.Rec.Anlog 100 Unit/Ml 10 Ml Vial) 18 unit SUBCUT BEDTIME [facility] Last Admin: 01/08/25 20:58 Dose: 18 unit Documented By: RICKEY Insulin Human Lispro (Insulin Lispro 100 Unit/Ml 3 Ml Vial) 0 unit SUBCUT QIDACHS [facility]; Protocol Last Admin: 01/08/25 20:59 Dose: 6 unit Documented By: RICKEY Comments: Levothyroxine Sodium (Levothyroxine Sodium 100 Mcg/5 Ml Vial) 100 mcg IVPUSH DAILY@0600 [facility] Last Admin: 01/09/25 04:28 Dose: 100 mcg Documented By: RICKEY Lorazepam (Lorazepam 2 Mg/Ml Vial) 0.5 mg IVPUSH Q6H PRN PRN Reason: Anxiety Last Admin: 01/09/25 04:28 Dose: 0.5 mg Documented By: RICKEY Comments: approved Methylprednisolone Sodium Succinate (Methylprednisolone Sod Succ 40 Mg/Ml Vial) 40 mg IVPUSH Q24H [facility] Last Admin: 01/08/25 16:07 Dose: 40 mg Documented By: SUZI Sodium Bicarbonate (Sodium Bicarbonate 650 Mg Tablet) 650 mg PO DAILY [facility] Sodium Chloride (0.9 % Sodium Chloride Flush 3 Ml Syringe) 3 ml IVFLUSH QSHIFT [facility] Last Admin: 01/09/25 01:52 Dose: Not Given Documented By: RICKEY Non-Admin Reason: Previously Administered Labs 01/09/25 06:54 01/09/25 06:54 Labs: Laboratory Results - last 24 hr 01/08/25 01/08/25 01/08/25 11:18 15:56 20:48 MCV MCH MCHC RDW Plt Count MPV Immature Gran % (Auto) Neut % (Auto) Lymph % (Auto) [place] % (Auto) Eos % (Auto) Baso % (Auto) Lymph # (Auto) [place] # (Auto) Eos # (Auto) Baso # (Auto) Abs Immat Gran (auto) Absolute Neuts (auto) Absolute Nucleated RBC Nucleated RBC % (auto) Anion Gap Estim Creat Clear Calc Estimated GFR POC Glucose 168 H 173 H 266 H Random Glucose Calcium Phosphorus Magnesium 01/09/25 01/09/25 06:54 06:55 MCV 100.7 H MCH 29.6 MCHC 29.4 L RDW 17.4 H Plt Count 215 MPV 9.4 Immature Gran % (Auto) 1.2 H Neut % (Auto) 81.3 H Lymph % (Auto) 10.3 L [place] % (Auto) 6.3 Eos % (Auto) 0.7 Baso % (Auto) 0.2 Lymph # (Auto) 0.6 L [place] # (Auto) 0.4 Eos # (Auto) 0.0 Baso # (Auto) 0.0 Abs Immat Gran (auto) 0.07 H Absolute Neuts (auto) 4.9 Absolute Nucleated RBC 0.000 Nucleated RBC % (auto) 0.0 Anion Gap 13 Estim Creat Clear Calc 35.3 Estimated GFR 31 POC Glucose 206 H Random Glucose 234 H Calcium 8.0 L Phosphorus 4.4 Magnesium 2.2 Assessment and Plan (1) Anxiety: Status: Acute Plan 79F PMH chronic hypoxic respiratory failure on 2 L home O2 due to COPD, morbid obesity with obstructive sleep apnea noncompliant with CPAP, chronic right-sided and diastolic CHF, CKD 4, diabetes, hypertension, hyperlipidemia presented with shortness of breath. On initial presentation had combined acute respiratory acidosis and acute on chronic metabolic acidosis. Was treated with BiPAP and then transferred to the intensive care unit for persistent acidosis. Patient's respiratory status improved and was downgraded to medical floor on 01/06/2025. Acute on chronic hypoxic and hypercapnic respiratory failure due to COPD with acute decompensation, acute on chronic diastolic CHF and possible pneumonia Now back at baseline Continue ceftriaxone azithromycin Steroids and nebs Likely additional element of anxiety Acute on chronic metabolic acidosis, ?RTA IV Nephro follwoing bicarb now 28 will decrease po bicarb to 650 daily Monitor Urinary tract infection Due to Providencia, continue ceftriaxone Hyperkalemia lokelma Diabetes Insulin Hypothyroid Levothyroxine Morbid obesity/TEZ CPAP at night, weight loss Chronic venous stasis and stage I pressure wound of coccyx Continue local wound care DVT prophylaxis with Lovenox Full Code reason for continued hospitalization: safe dispo Quality Stroke Does the patient have a stroke diagnosis?: No VTE Prior VTE?: No VTE Risk Level:: Medical - moderate - high VTE Device Contraindication: N/A - Device Ordered VTE Drug Contraindication: N/A - Med Ordered
[2025-01-09] MEDS: Insulin Lispro 100 UNIT/ML 3 ML VIAL SUBCUT ×3 (09:10→21:41)
[2025-01-09] MEDS: 0.9 % Sodium Chloride Flush 3 ML SYRINGE IVFLUSH ×3 (09:11→20:35)
[2025-01-09] MEDS: Sodium Zirconium Cyclosilicate 10 GM POWD.PACK PO (09:58)
--- NOTE | 2025-01-09 10:25 | MHC.CM.PN ---
Per ROUNDS discussion, Patient is not yet medically cleared for dc (K is high); Patient may benefit from a PT Eval to assist with disposition. CM will follow.
[2025-01-09] MEDS: LORazepam 0.5 MG TABLET PO ×2 (10:29→17:07)
[2025-01-09 10:44] LABS: Glucose, Whole Blood 256 mg/dL (60-115)
--- NOTE | 2025-01-09 11:41 | P.CONNP_ITS ---
History of Present Illness Reason for Consult Consult date: 01/09/25 Reason for consult: MARJORIE Chief Complaint Chief complaint: respiratory failure History of Present Illness Narrative: 79-year-old female with history of COPD on 2 L of home oxygen who presents to the emergency department with one-week history of intermittent shortness of breath. She reports associated cough. She denies any associated fever or chills. In the emergency department due to increased work of breathing she required BiPAP. She has been off BiPAP in the past 2 hours and her work of breathing has improved. VBG was obtained showing pH of 7.1 initially, improving to 7.2 after BiPAP. Lab work revealing metabolic acidosis with bicarb of 15 as well as hyperkalemia with potassium of 5.7. Chest x-ray showed concern for right upper lobe pneumonia. [facility] Past Medical History Medical History Anemia Herpes zoster MARJORIE (acute kidney injury) Left bundle branch block Morbid obesity Chronic pain syndrome Anxiety Pernicious anemia COPD (chronic obstructive pulmonary disease) CHF (congestive heart failure) Hypothyroidism Essential hypertension Diabetes mellitus Pure hypercholesterolemia Family History Family History Father CVD (cardiovascular disease) Mother No problems noted. Family/Other FH: mental illness Surgical History Surgical History H/O left knee surgery Deficient knowledge of leg surgery History of tonsillectomy and adenoidectomy History of appendectomy Social History Social History Household Members: Children and Caregiver Household Members Other:: 2 Housing: House Do you presently have visiting nurse or other home services: No Alcohol intake: unknown Patient Tobacco Use Status: Former Tobacco user Tobacco use type: Cigarette Smoked in Last 30 Days: No e-Cigarette/Vaping Use: Never Used Patient Interested in Nicotine Replacement: No Patient Given Instructions on How to Stop Smoking: No Second Hand Smoke Exposure: No Use of substances other than those prescribed or required for medical reasons: No Currently Displaying Signs/Symptoms of Drug Intoxication Withdrawal: No Have you been hit, kicked, punched, or otherwise hurt by someone within the past year? If so, by whom?: No Do you feel safe in your current relationship?: No Current Relationship Is there a partner from a previous relationship who is making you feel unsafe now?: No Are you made to feel afraid or neglected: No Spiritual Healthcare Practices: Religion Advance Directives: Yes Advance Directives on File: Yes Advance Directives Date on File: 06/24/24 Do you have a plan to hurt others: No Plan Recently lost weight without trying: No Nutrition Risks: No Nutritional Risk Patient : No service: No Current occupational status: disabled Cognitive needs: Yes Hearing needs: No Vision needs: No Meds Allergies Allergy/AdvReac Type Severity Reaction Status Date / Time ibuprofen [From Motrin] Allergy Unknown swelling Verified 01/05/25 02:13 codeine [CODEINE] AdvReac Unknown SLEEPY Verified 01/05/25 02:13 Active Medications: Current Medications Acetaminophen (Acetaminophen 325 Mg Tablet) 650 mg PO Q6H PRN PRN Reason: Pain, Mild 1-3,fever,headache Last Admin: 01/07/25 21:55 Dose: 650 mg Albuterol Sulfate (Albuterol Sulfate 90 Mcg 8 Gm Inhaler) 2 puff INHALE Q2H PRN PRN Reason: shortness of breath or wheezing Albuterol/Ipratropium (Albuterol/Iprat 2.5/0.5mg 3 Ml Ampul.Neb) 3 ml INHALE RQ4H WHILE AWAKE [facility] Last Admin: 01/09/25 07:37 Dose: 3 ml Atorvastatin Calcium (Atorvastatin Calcium 40 Mg Tablet) 40 mg PO BEDTIME [facility] BY [facility] Last Admin: 01/08/25 20:58 Dose: 40 mg Ceftriaxone Sodium (Ceftriaxone Sodium 1 Gm Vial) 1 gm IVPUSH Q24H [facility] Last Admin: 01/09/25 08:44 Dose: 1 gm Dextrose (Dextrose 50 % 25 Gm/50 Ml Syringe) 25 gm IVPUSH Q15M PRN; Protocol PRN Reason: per Hypoglycemia Standing Ord. Furosemide (Furosemide 20 Mg/2 Ml Vial) 20 mg IVPUSH BID@0900,1800 [facility]; Protocol Last Admin: 01/09/25 08:43 Dose: 20 mg Glucose (Glucose Gel 15 Gm Gel..Gram.) 15 gm PO Q15M PRN; Protocol PRN Reason: per Hypoglycemia Standing Ord. Heparin Sodium (Porcine) (Heparin Sodium,Porcine 5,000 Unit/Ml Vial) 5,000 unit SUBCUT Q8H [facility] Last Admin: 01/09/25 04:28 Dose: 5,000 unit Azithromycin 500 mg/ Sodium (Chloride) 250 mls @ 125 mls/hr IV Q24H [facility] BY [facility] Last Admin: 01/09/25 08:44 Dose: 125 mls/hr Insulin Glargine (Insulin Glargine,Hum.Rec.Anlog 100 Unit/Ml 10 Ml Vial) 18 unit SUBCUT BEDTIME [facility] Last Admin: 01/08/25 20:58 Dose: 18 unit Insulin Human Lispro (Insulin Lispro 100 Unit/Ml 3 Ml Vial) 0 unit SUBCUT QIDACHS [facility]PL[facility] BY [facility]; Protocol Last Admin: 01/09/25 09:10 Dose: 4 unit Levothyroxine Sodium (Levothyroxine Sodium 100 Mcg/5 Ml Vial) 100 mcg IVPUSH DAILY@0600 [facility] Last Admin: 01/09/25 04:28 Dose: 100 mcg Lorazepam (Lorazepam 0.5 Mg Tablet) 0.5 mg PO Q8H PRN PRN Reason: Anxiety Last Admin: 01/09/25 10:29 Dose: 0.5 mg Methylprednisolone Sodium Succinate (Methylprednisolone Sod Succ 40 Mg/Ml Vial) 40 mg IVPUSH Q24H [facility] Last Admin: 01/08/25 16:07 Dose: 40 mg Oxycodone HCl (Oxycodone Hcl Immed Release 5 Mg Tablet) 5 mg PO Q8H PRN PRN Reason: Pain, Severe (Pain Scale 7-10) Sodium Bicarbonate (Sodium Bicarbonate 650 Mg Tablet) 650 mg PO DAILY [facility] BY [facility] Last Admin: 01/09/25 09:59 Dose: Not Given Sodium Chloride (0.9 % Sodium Chloride Flush 3 Ml Syringe) 3 ml IVFLUSH QSHIFT REPLACED BY [facility] Last Admin: 01/09/25 09:11 Dose: 3 ml Home Medications ?Medication ?Instructions ?Recorded ?Confirmed ?Last Taken ?Type levothyroxine 200 mcg tablet 200 mcg PO DAILY@0600 06/19/24 01/05/25 01/04/25 History gemfibrozil 600 mg tablet 600 mg PO BID 01/05/25 01/05/25 01/04/25 History Physical Exam Vital Signs: Last Vital Signs Temp 97.8 F 01/09/25 10:44 Pulse 65 01/09/25 10:44 Resp 20 01/09/25 10:44 BP 142/58 H 01/09/25 10:44 Pulse Ox 95 01/09/25 10:44 O2 Del Method Nasal Cannula 01/09/25 10:44 O2 Flow Rate 2 01/09/25 10:44 FiO2 24 01/05/25 06:40 Oxygen Flow Rate 4 01/05/25 02:06 BMI result Body Mass Index 39.1 HEENT Head: Yes normal to inspection, Yes normocephalic and Yes atraumatic Eyes General: appearance normal, both eyes and all related structures Neck Neck: Yes normal visual inspection, Yes full ROM, Yes no meningeal signs, Yes trachea midline and Yes supple Chest Chest palpation & inspection: normal inspection of the chest Resp Other: no appreciable overt rales, rhonchi, wheezing Effort & Inspection: normal respiratory effort Cardio Rate: regular rate Rhythm: regular rhythm GI Inspection: Yes normal to inspection, No Abdominal wall edema and No distended Palpation (GI): Soft to palpation, not firm, nontender, no guarding and not rigid Skin General skin exam: no rashes or lesions noted Neuro General: tone normal, moves all extremities, no meningeal signs and no focal motor deficits Extrem Other: appreciable erythema, edema bilateral legs w/o appreciable purulence, likely chronic venous stasis changes General: Yes normal to inspection, Yes full ROM and Yes capillary refill normal Psych Other: anxiety and uncooperative necessitating significant verbal re-direction Results Lab Results 01/09/25 06:54 01/09/25 06:54 Lab results: Chemistry 01/06/25 01/07/25 01/08/25 19:18 06:30 06:22 Sodium 142 143 145 Potassium 5.2 H 5.0 4.8 Carbon Dioxide 18 L 21 L 22 BUN 68 H 75 H 66 H Creatinine 1.86 H 1.94 H 1.80 H Calcium 7.9 L 7.9 L 7.7 L Phosphorus 4.3 4.9 H 4.1 01/09/25 06:54 Sodium 145 Potassium 5.6 H Carbon Dioxide 28 BUN 63 H Creatinine 1.62 H Calcium 8.0 L Phosphorus 4.4 Hematology 01/07/25 01/08/25 01/09/25 06:30 06:22 06:54 WBC 5.6 6.7 6.0 Hgb 8.0 L 8.0 L 8.4 L Plt Count 224 225 215 Assessment and Plan (1) Acute kidney injury superimposed on CKD: Status: Acute Plan 79-year-old woman with a history of acute kidney injury superimposed on CKD. At present renal function is close to baseline. She was persistent mild hyperkalemia. Watch for obstructive uropathy. Monitor intake and output. Keep on low-potassium diet. Lokelma p.r.n.. Replace bicarbonate orally and maintain total CO2 more than 18 millimoles. Shall follow along with the team Procedures Date of Service Date of Service: 01/09/25
[2025-01-09] MEDS: oxyCODONE HCl Immed Release 5 MG TABLET PO (13:21)
--- NOTE | 2025-01-09 13:52 | MHC.CLN ---
PT WITH INCREASED NUTRITION RISK R/T PRESSURE INJURY PO INTAKE 100% DIET RX: 2000DM -APPROPRIATE RECOMMEND ADDING ENURE MAX BID TO PROMOTE WOUND HEALING SUPP PROVIDES 300KCALS, 60G PROTEIN MONITOR PO INTAKE AND ENCOURAGE SUPPLEMENTS SEE CLINICAL NUTRITION ASSESSMENT
[2025-01-09] MEDS: methylPREDNISolone Sod Succ 40 MG/ML VIAL IVPUSH (15:04)
[2025-01-09 15:54] LABS: Glucose, Whole Blood 127 mg/dL (60-115)
[2025-01-09] MEDS: Atorvastatin Calcium 40 MG TABLET PO (20:35)
[2025-01-09 21:08] LABS: Glucose, Whole Blood 339 mg/dL (60-115)
[2025-01-09] MEDS: Insulin Glargine,Hum.rec.anlog 100 UNIT/ML 10 ML VIAL 18 UNIT SUBCUT (21:42)
[2025-01-10] VITALS (13 sets, daily range): BP systolic 140–169; BP diastolic 64–77; PULSE 55–96; RESP 17–18; TEMP 36–36.7; O2SAT 93–100
[2025-01-10] MEDS: oxyCODONE HCl Immed Release 5 MG TABLET PO ×3 (00:30→17:00)
[2025-01-10] MEDS: LORazepam 0.5 MG TABLET PO ×2 (01:30→09:44)
[2025-01-10] MEDS: Levothyroxine Sodium 100 MCG/5 ML VIAL IVPUSH (06:19)
[2025-01-10] MEDS: Heparin Sodium,Porcine 5,000 UNIT/ML VIAL 5000 UNIT SUBCUT ×3 (06:19→22:48)
[2025-01-10] MEDS: Albuterol Sulfate 90 MCG 8 GM INHALER 2 PUFF INHALE (06:22)
[2025-01-10 07:27] LABS: Glucose, Whole Blood 169 mg/dL (60-115)
[2025-01-10 07:28] LABS: MANUAL DIFF FLAG NO
[2025-01-10 07:33] LABS: Hematocrit 30.7 % (37.0-47.0); Hemoglobin 9.2 g/dl (12.0-16.0); Mean Corpuscular Hemoglobin 29.7 pg (27.0-33.0); Mean Platelet Volume 9.3 fL (9.4-12.3); Platelet Count 225 X10*3/uL (160-400); Red Cell Distribution Width 17.2 % (11.0-16.0); White Blood Count 6.8 X10*3/uL (4.8-10.8)
[2025-01-10 07:35] LABS: Basophils Percent Auto 0.3 % (0-2); Eosinophils Percent Auto 0.6 % (0-4); Hematocrit 30.1 % (37.0-47.0); Imm Gran Abs Auto 0.04 X10*3/uL (0.00-0.03); Imm Gran Pct Auto 0.6 % (0.0-0.4); Lymphocytes Absolute Auto 0.7 X10*3/uL (1.2-4.9); Lymphocytes Percent Auto 9.6 % (20-40); Mean Corpuscular HGB Conc 29.9 g/dl (31.0-35.0); Mean Corpuscular Hemoglobin 29.6 pg (27.0-33.0); Mean Platelet Volume 9.2 fL (9.4-12.3); Monocytes Absolute Auto 0.5 X10*3/uL (0.1-1.2); Monocytes Percent Auto 7.5 % (2-11); Neutrophils Absolute Auto 5.7 x10*3/uL (2.0-8.3); Neutrophils Percent Auto 81.4 % (45-73); Platelet Count 237 X10*3/uL (160-400); Red Blood Count 3.04 X10*6/uL (4.20-5.50); Red Cell Distribution Width 17.2 % (11.0-16.0)
[2025-01-10 07:50] LABS: Anion Gap 13 (12-20); Blood Urea Nitrogen 63 mg/dL (9-16); Calcium 7.9 mg/dL (8.4-10.2); Carbon Dioxide 29 mmol/L (22-29); Chloride 106 mmol/L (96-108); Creatinine Clr Calc Pharmacy 36.6; Estimated Glomerular Filt Rate 32; Glucose Random 219 mg/dL (60-115); Magnesium 2.1 mg/dL (1.6-2.6); Phosphorus 4.6 mg/dL (2.7-4.5); Potassium 5.2 mmol/L (3.3-5.1); Sodium 143 mmol/L (135-145)
[2025-01-10] MEDS: Albuterol/Iprat 2.5/0.5MG 3 ML AMPUL.NEB INHALE ×4 (08:05→18:53)
[2025-01-10] MEDS: cefTRIAXone sodium 1 GM VIAL IVPUSH (08:11)
[2025-01-10] MEDS: Sodium Bicarbonate 650 MG TABLET PO (08:11)
[2025-01-10] MEDS: Furosemide 20 MG/2 ML VIAL IVPUSH ×2 (08:11→16:58)
[2025-01-10] MEDS: Azithromycin 500 MG in 0.9 % Sodium Chloride 250 ML 125 MG IV (08:12)
[2025-01-10] MEDS: 0.9 % Sodium Chloride Flush 3 ML SYRINGE IVFLUSH ×3 (08:12→22:49)
[2025-01-10] MEDS: Insulin Lispro 100 UNIT/ML 3 ML VIAL SUBCUT ×4 (08:13→22:48)
--- NOTE | 2025-01-10 08:31 | P.PNIM_ITS ---
Subjective Subjective Date of Service: 01/10/25 Interval History: feels weak, tired, sob Physical Exam 2 Vital Signs: Vital Signs: Last Vital Signs Temp 97.5 F 01/10/25 07:18 Pulse 59 01/10/25 08:05 Resp 18 01/10/25 08:05 BP 153/68 H 01/10/25 07:18 Pulse Ox 100 01/10/25 07:18 O2 Del Method CPAP 01/10/25 07:18 O2 Flow Rate 3 01/09/25 19:14 FiO2 24 01/05/25 06:40 Oxygen Flow Rate 4 01/05/25 02:06 BMI result Body Mass Index 39.1 alert, tachypneic, anxious, overall ill appearing diminished lung sounds Objective Data Active Medications Acetaminophen (Acetaminophen 325 Mg Tablet) 650 mg PO Q6H PRN PRN Reason: Pain, Mild 1-3,fever,headache Last Admin: 01/07/25 21:55 Dose: 650 mg Documented By: NICOLA Albuterol Sulfate (Albuterol Sulfate 90 Mcg 8 Gm Inhaler) 2 puff INHALE Q2H PRN PRN Reason: shortness of breath or wheezing Last Admin: 01/10/25 06:22 Dose: 2 puff Documented By: RICKEY Albuterol/Ipratropium (Albuterol/Iprat 2.5/0.5mg 3 Ml Ampul.Neb) 3 ml INHALE RQ4H WHILE AWAKE [facility] Last Admin: 01/10/25 08:05 Dose: 3 ml Documented By: RADHA Atorvastatin Calcium (Atorvastatin Calcium 40 Mg Tablet) 40 mg PO BEDTIME [facility] Last Admin: 01/09/25 20:35 Dose: 40 mg Documented By: RICKEY Ceftriaxone Sodium (Ceftriaxone Sodium 1 Gm Vial) 1 gm IVPUSH Q24H [facility] Last Admin: 01/10/25 08:11 Dose: 1 gm Documented By: VITO Dextrose (Dextrose 50 % 25 Gm/50 Ml Syringe) 25 gm IVPUSH Q15M PRN; Protocol PRN Reason: per Hypoglycemia Standing Ord. Furosemide (Furosemide 20 Mg/2 Ml Vial) 20 mg IVPUSH BID@0900,1800 [facility]; Protocol Last Admin: 01/10/25 08:11 Dose: 20 mg Documented By: VITO Glucose (Glucose Gel 15 Gm Gel..Gram.) 15 gm PO Q15M PRN; Protocol PRN Reason: per Hypoglycemia Standing Ord. Heparin Sodium (Porcine) (Heparin Sodium,Porcine 5,000 Unit/Ml Vial) 5,000 unit SUBCUT Q8H [facility] Last Admin: 01/10/25 06:19 Dose: 5,000 unit Documented By: RICKEY Azithromycin 500 mg/ Sodium (Chloride) 250 mls @ 125 mls/hr IV Q24H [facility] Last Admin: 01/10/25 08:12 Dose: 125 mls/hr Documented By: VITO Insulin Glargine (Insulin Glargine,Hum.Rec.Anlog 100 Unit/Ml 10 Ml Vial) 18 unit SUBCUT BEDTIME [facility] Last Admin: 01/09/25 21:42 Dose: 18 unit Documented By: RICKEY Insulin Human Lispro (Insulin Lispro 100 Unit/Ml 3 Ml Vial) 0 unit SUBCUT QIDACHS [facility]; Protocol Last Admin: 01/10/25 08:13 Dose: 2 unit Documented By: VITO Levothyroxine Sodium (Levothyroxine Sodium 100 Mcg/5 Ml Vial) 100 mcg IVPUSH DAILY@0600 [facility] Last Admin: 01/10/25 06:19 Dose: 100 mcg Documented By: RICKEY Lorazepam (Lorazepam 0.5 Mg Tablet) 0.5 mg PO Q8H PRN PRN Reason: Anxiety Last Admin: 01/10/25 01:30 Dose: 0.5 mg Documented By: RICKEY Methylprednisolone Sodium Succinate (Methylprednisolone Sod Succ 40 Mg/Ml Vial) 40 mg IVPUSH Q24H [facility] Last Admin: 01/09/25 15:04 Dose: 40 mg Documented By: VITO Oxycodone HCl (Oxycodone Hcl Immed Release 5 Mg Tablet) 5 mg PO Q8H PRN PRN Reason: Pain, Severe (Pain Scale 7-10) Last Admin: 01/10/25 08:10 Dose: 5 mg Documented By: VITO Sodium Bicarbonate (Sodium Bicarbonate 650 Mg Tablet) 650 mg PO DAILY [facility] Last Admin: 01/10/25 08:11 Dose: 650 mg Documented By: VITO Sodium Chloride (0.9 % Sodium Chloride Flush 3 Ml Syringe) 3 ml IVFLUSH QSHIFT [facility] Last Admin: 01/10/25 08:12 Dose: 3 ml Documented By: VITO Labs 01/10/25 07:06 01/10/25 07:05 Labs: Laboratory Results - last 24 hr 01/09/25 01/09/25 01/09/25 10:41 15:51 20:49 MCV MCH MCHC RDW Plt Count MPV Immature Gran % (Auto) Neut % (Auto) Lymph % (Auto) [place] % (Auto) Eos % (Auto) Baso % (Auto) Lymph # (Auto) [place] # (Auto) Eos # (Auto) Baso # (Auto) Abs Immat Gran (auto) Absolute Neuts (auto) Absolute Nucleated RBC Nucleated RBC % (auto) Anion Gap Estim Creat Clear Calc Estimated GFR POC Glucose 256 H 127 H 339 H Random Glucose Calcium Phosphorus Magnesium 01/10/25 01/10/25 01/10/25 07:05 07:06 07:06 MCV 99.0 H 99.0 H MCH 29.6 MCHC RDW Plt Count MPV Immature Gran % (Auto) Neut % (Auto) Lymph % (Auto) [place] % (Auto) Eos % (Auto) Baso % (Auto) Lymph # (Auto) [place] # (Auto) Eos # (Auto) Baso # (Auto) Abs Immat Gran (auto) Absolute Neuts (auto) Absolute Nucleated RBC Nucleated RBC % (auto) Anion Gap 13 Estim Creat Clear Calc 36.6 Estimated GFR 32 POC Glucose Random Glucose 219 H Calcium 7.9 L Phosphorus 4.6 H Magnesium 2.1 01/10/25 01/10/25 01/10/25 07:06 07:06 07:06 MCV MCH 29.7 MCHC 29.9 L 30.0 L RDW 17.2 H 17.2 H Plt Count 237 MPV Immature Gran % (Auto) Neut % (Auto) Lymph % (Auto) [place] % (Auto) Eos % (Auto) Baso % (Auto) Lymph # (Auto) [place] # (Auto) Eos # (Auto) Baso # (Auto) Abs Immat Gran (auto) Absolute Neuts (auto) Absolute Nucleated RBC Nucleated RBC % (auto) Anion Gap Estim Creat Clear Calc Estimated GFR POC Glucose Random Glucose Calcium Phosphorus Magnesium 01/10/25 01/10/25 01/10/25 07:06 07:06 07:06 MCV MCH MCHC RDW Plt Count 225 MPV 9.2 L 9.3 L Immature Gran % (Auto) 0.6 H Neut % (Auto) 81.4 H Lymph % (Auto) 9.6 L [place] % (Auto) 7.5 Eos % (Auto) 0.6 Baso % (Auto) 0.3 Lymph # (Auto) 0.7 L [place] # (Auto) 0.5 Eos # (Auto) 0.0 Baso # (Auto) 0.0 Abs Immat Gran (auto) 0.04 H Absolute Neuts (auto) 5.7 Absolute Nucleated RBC 0.000 0.000 Nucleated RBC % (auto) 0.0 Anion Gap Estim Creat Clear Calc Estimated GFR POC Glucose Random Glucose Calcium Phosphorus Magnesium 01/10/25 01/10/25 07:06 07:22 MCV MCH MCHC RDW Plt Count MPV Immature Gran % (Auto) Neut % (Auto) Lymph % (Auto) [place] % (Auto) Eos % (Auto) Baso % (Auto) Lymph # (Auto) [place] # (Auto) Eos # (Auto) Baso # (Auto) Abs Immat Gran (auto) Absolute Neuts (auto) Absolute Nucleated RBC Nucleated RBC % (auto) 0.0 Anion Gap Estim Creat Clear Calc Estimated GFR POC Glucose 169 H Random Glucose Calcium Phosphorus Magnesium Microbiology Microbiology Results: Microbiology 01/05/25 04:27 Blood Culture - Final Blood - Venous No growth after 5 days. 01/05/25 04:26 Blood Culture - Final Blood - Venous No growth after 5 days. Assessment and Plan (1) Anxiety: Status: Acute Plan 79F PMH chronic hypoxic respiratory failure on 2 L home O2 due to COPD, morbid obesity with obstructive sleep apnea noncompliant with CPAP, chronic right-sided and diastolic CHF, CKD 4, diabetes, hypertension, hyperlipidemia presented with shortness of breath. On initial presentation, 01/05/25, had combined acute respiratory acidosis and acute on chronic metabolic acidosis. Was treated with BiPAP and then transferred to the intensive care unit for persistent acidosis. Patient's respiratory status improved and was downgraded to medical floor on 01/06/2025. Acute on chronic hypoxic and hypercapnic respiratory failure due to COPD with acute decompensation, acute on chronic diastolic CHF and possible pneumonia Now back at baseline O2, still sob and tachypneic Continue ceftriaxone azithromycin Steroids and nebs Likely additional element of anxiety - ativan Acute on chronic metabolic acidosis, ?RTA IV Nephro follwoing bicarb now increased to 29 decreased po bicarb to 650 daily Monitor Urinary tract infection Due to Providencia, continue ceftriaxone (started 01/05/25) culture 01/03/25 also had e faecalis, but repeat 01/05 providencia only Hyperkalemia rta IV, s/p lokelma, monitor Diabetes Insulin Hypothyroid Levothyroxine Morbid obesity/TEZ CPAP at night, weight loss Chronic venous stasis and stage I pressure wound of coccyx Continue local wound care deconditioning - PT eval DVT prophylaxis with Lovenox Full Code reason for continued hospitalization: still sob, tachypneic, deconditioned Quality Stroke Does the patient have a stroke diagnosis?: No VTE Prior VTE?: No VTE Risk Level:: Medical - moderate - high VTE Device Contraindication: N/A - Device Ordered VTE Drug Contraindication: N/A - Med Ordered
[2025-01-10] MEDS: hydrOXYzine HCL 10 MG TABLET PO ×2 (10:46→22:48)
[2025-01-10 11:10] LABS: Glucose, Whole Blood 221 mg/dL (60-115)
--- NOTE | 2025-01-10 11:32 | PM.PNNEP ---
Subjective Subjective Date of Service: 01/10/25 Interval history: feels weak, tired, sob Physical Exam Vital Signs: Vital Signs: Last Vital Signs Temp 97.1 F 01/10/25 10:55 Pulse 60 01/10/25 11:08 Resp 18 01/10/25 11:08 BP 148/66 H 01/10/25 10:55 Pulse Ox 93 01/10/25 10:55 O2 Del Method CPAP 01/10/25 10:55 O2 Flow Rate 3 01/09/25 19:14 FiO2 24 01/05/25 06:40 Oxygen Flow Rate 4 01/05/25 02:06 BMI result Body Mass Index 39.1 HEENT: Head: Yes normal to inspection, Yes normocephalic and Yes atraumatic Eyes: General: appearance normal, both eyes and all related structures Neck: Neck: Yes normal visual inspection, Yes full ROM, Yes no meningeal signs, Yes trachea midline and Yes supple Chest: Chest palpation & inspection: normal inspection of the chest Resp: Other: no appreciable overt rales, rhonchi, wheezing Effort & Inspection: normal respiratory effort Cardio: Rate: regular rate Rhythm: regular rhythm GI: Inspection: Yes normal to inspection, No Abdominal wall edema and No distended Palpation (GI): Soft to palpation, not firm, nontender, no guarding and not rigid Skin: General skin exam: no rashes or lesions noted Neuro: General: tone normal, moves all extremities, no meningeal signs and no focal motor deficits Extrem: Other: appreciable erythema, edema bilateral legs w/o appreciable purulence, likely chronic venous stasis changes General: Yes normal to inspection, Yes full ROM and Yes capillary refill normal Psych: Other: anxiety and uncooperative necessitating significant verbal re-direction Objective Data Labs 01/10/25 07:06 01/10/25 07:05 Labs: Laboratory Results - last 24 hr 01/09/25 01/09/25 01/10/25 15:51 20:49 07:05 WBC RBC Hgb Hct MCV MCH MCHC RDW Plt Count MPV Immature Gran % (Auto) Neut % (Auto) Lymph % (Auto) [place] % (Auto) Eos % (Auto) Baso % (Auto) Lymph # (Auto) [place] # (Auto) Eos # (Auto) Baso # (Auto) Abs Immat Gran (auto) Absolute Neuts (auto) Absolute Nucleated RBC Nucleated RBC % (auto) Sodium 143 Potassium 5.2 H Chloride 106 Carbon Dioxide 29 Anion Gap 13 BUN 63 H Creatinine 1.56 H Estim Creat Clear Calc 36.6 Estimated GFR 32 POC Glucose 127 H 339 H Random Glucose 219 H Calcium 7.9 L Phosphorus 4.6 H Magnesium 2.1 01/10/25 01/10/25 01/10/25 07:06 07:06 07:06 WBC 7.0 6.8 RBC 3.04 L 3.10 L Hgb 9.0 L Hct MCV MCH MCHC RDW Plt Count MPV Immature Gran % (Auto) Neut % (Auto) Lymph % (Auto) [place] % (Auto) Eos % (Auto) Baso % (Auto) Lymph # (Auto) [place] # (Auto) Eos # (Auto) Baso # (Auto) Abs Immat Gran (auto) Absolute Neuts (auto) Absolute Nucleated RBC Nucleated RBC % (auto) Sodium Potassium Chloride Carbon Dioxide Anion Gap BUN Creatinine Estim Creat Clear Calc Estimated GFR POC Glucose Random Glucose Calcium Phosphorus Magnesium 01/10/25 01/10/25 01/10/25 07:06 07:06 07:06 WBC RBC Hgb 9.2 L Hct 30.1 L 30.7 L MCV 99.0 H 99.0 H MCH 29.6 MCHC RDW Plt Count MPV Immature Gran % (Auto) Neut % (Auto) Lymph % (Auto) [place] % (Auto) Eos % (Auto) Baso % (Auto) Lymph # (Auto) [place] # (Auto) Eos # (Auto) Baso # (Auto) Abs Immat Gran (auto) Absolute Neuts (auto) Absolute Nucleated RBC Nucleated RBC % (auto) Sodium Potassium Chloride Carbon Dioxide Anion Gap BUN Creatinine Estim Creat Clear Calc Estimated GFR POC Glucose Random Glucose Calcium Phosphorus Magnesium 01/10/25 01/10/25 01/10/25 07:06 07:06 07:06 WBC RBC Hgb Hct MCV MCH 29.7 MCHC 29.9 L 30.0 L RDW 17.2 H 17.2 H Plt Count 237 MPV Immature Gran % (Auto) Neut % (Auto) Lymph % (Auto) [place] % (Auto) Eos % (Auto) Baso % (Auto) Lymph # (Auto) [place] # (Auto) Eos # (Auto) Baso # (Auto) Abs Immat Gran (auto) Absolute Neuts (auto) Absolute Nucleated RBC Nucleated RBC % (auto) Sodium Potassium Chloride Carbon Dioxide Anion Gap BUN Creatinine Estim Creat Clear Calc Estimated GFR POC Glucose Random Glucose Calcium Phosphorus Magnesium 01/10/25 01/10/25 01/10/25 07:06 07:06 07:06 WBC RBC Hgb Hct MCV MCH MCHC RDW Plt Count 225 MPV 9.2 L 9.3 L Immature Gran % (Auto) 0.6 H Neut % (Auto) 81.4 H Lymph % (Auto) 9.6 L [place] % (Auto) 7.5 Eos % (Auto) 0.6 Baso % (Auto) 0.3 Lymph # (Auto) 0.7 L [place] # (Auto) 0.5 Eos # (Auto) 0.0 Baso # (Auto) 0.0 Abs Immat Gran (auto) 0.04 H Absolute Neuts (auto) 5.7 Absolute Nucleated RBC 0.000 0.000 Nucleated RBC % (auto) 0.0 Sodium Potassium Chloride Carbon Dioxide Anion Gap BUN Creatinine Estim Creat Clear Calc Estimated GFR POC Glucose Random Glucose Calcium Phosphorus Magnesium 01/10/25 01/10/25 01/10/25 07:06 07:22 10:58 WBC RBC Hgb Hct MCV MCH MCHC RDW Plt Count MPV Immature Gran % (Auto) Neut % (Auto) Lymph % (Auto) [place] % (Auto) Eos % (Auto) Baso % (Auto) Lymph # (Auto) [place] # (Auto) Eos # (Auto) Baso # (Auto) Abs Immat Gran (auto) Absolute Neuts (auto) Absolute Nucleated RBC Nucleated RBC % (auto) 0.0 Sodium Potassium Chloride Carbon Dioxide Anion Gap BUN Creatinine Estim Creat Clear Calc Estimated GFR POC Glucose 169 H 221 H Random Glucose Calcium Phosphorus Magnesium Microbiology Microbiology Results: Microbiology 01/05/25 04:27 Blood - Venous Blood Culture - Final No growth after 5 days. 01/05/25 04:26 Blood - Venous Blood Culture - Final No growth after 5 days. 01/05/25 Unknown Urine Catheterized - Moyer Catheter Urine Culture - Final Providencia stuartii Procedures Date of Service Date of Service: 01/10/25 Assessment & Plan Assessment and plan (1) Acute kidney injury superimposed on CKD: Status: Acute Plan 79-year-old woman with a history of acute kidney injury superimposed on CKD. At present renal function is close to baseline. h/o persistent mild hyperkalemia. Watch for obstructive uropathy. Keep on low-potassium diet. Lokelma p.r.n.. Replace bicarbonate orally and maintain total CO2 more than 18 millimoles. Shall follow along with the team Time Spent With Patient Time: Total time managing care of this patient today ____ minutes. Progress Note: Quality Stroke Does the patient have a stroke diagnosis?: No
[2025-01-10] MEDS: methylPREDNISolone Sod Succ 40 MG/ML VIAL IVPUSH (15:24)
[2025-01-10 15:49] LABS: Glucose, Whole Blood 203 mg/dL (60-115)
[2025-01-10] MEDS: DULoxetine HCl 20 MG CAPSULE.DR PO (16:58)
[2025-01-10 21:02] LABS: Glucose, Whole Blood 320 mg/dL (60-115)
[2025-01-10] MEDS: Atorvastatin Calcium 40 MG TABLET PO (22:48)
[2025-01-10] MEDS: Insulin Glargine,Hum.rec.anlog 100 UNIT/ML 10 ML VIAL 18 UNIT SUBCUT (22:49)
[2025-01-11] VITALS (11 sets, daily range): BP systolic 127–145; BP diastolic 50–65; PULSE 54–82; RESP 14–20; TEMP 36.1–36.6; O2SAT 93–100
[2025-01-11] MEDS: LORazepam 0.5 MG TABLET PO ×2 (03:10→18:31)
[2025-01-11] MEDS: Levothyroxine Sodium 100 MCG/5 ML VIAL IVPUSH (05:41)
[2025-01-11] MEDS: Heparin Sodium,Porcine 5,000 UNIT/ML VIAL 5000 UNIT SUBCUT ×3 (05:41→22:23)
[2025-01-11 05:50] LABS: MANUAL DIFF FLAG NO
[2025-01-11 06:00] LABS: Basophils Percent Auto 0.3 % (0-2); Eosinophils Percent Auto 0.3 % (0-4); Hematocrit 26.8 % (37.0-47.0); Hemoglobin 7.9 g/dl (12.0-16.0); Imm Gran Abs Auto 0.03 X10*3/uL (0.00-0.03); Imm Gran Pct Auto 0.5 % (0.0-0.4); Lymphocytes Absolute Auto 0.4 X10*3/uL (1.2-4.9); Lymphocytes Percent Auto 6.5 % (20-40); Mean Corpuscular HGB Conc 29.5 g/dl (31.0-35.0); Mean Corpuscular Hemoglobin 29.7 pg (27.0-33.0); Mean Corpuscular Volume 100.8 fL (80.0-98.0); Mean Platelet Volume 9.8 fL (9.4-12.3); Monocytes Absolute Auto 0.3 X10*3/uL (0.1-1.2); Monocytes Percent Auto 5.2 % (2-11); Neutrophils Absolute Auto 5.7 x10*3/uL (2.0-8.3); Neutrophils Percent Auto 87.2 % (45-73); Platelet Count 219 X10*3/uL (160-400); Red Blood Count 2.66 X10*6/uL (4.20-5.50); Red Cell Distribution Width 16.5 % (11.0-16.0); White Blood Count 6.5 X10*3/uL (4.8-10.8)
[2025-01-11 06:22] LABS: Anion Gap 14 (12-20); Blood Urea Nitrogen 77 mg/dL (9-16); Calcium 7.4 mg/dL (8.4-10.2); Carbon Dioxide 30 mmol/L (22-29); Chloride 103 mmol/L (96-108); Creatinine Clr Calc Pharmacy 34.4; Estimated Glomerular Filt Rate 30; Glucose Random 268 mg/dL (60-115); Phosphorus 5.8 mg/dL (2.7-4.5); Potassium 5.3 mmol/L (3.3-5.1); Sodium 142 mmol/L (135-145)
[2025-01-11 07:29] LABS: Glucose, Whole Blood 172 mg/dL (60-115)
[2025-01-11] MEDS: Albuterol/Iprat 2.5/0.5MG 3 ML AMPUL.NEB INHALE ×4 (07:31→19:22)
[2025-01-11] MEDS: Furosemide 20 MG/2 ML VIAL IVPUSH ×2 (08:08→16:21)
[2025-01-11] MEDS: cefTRIAXone sodium 1 GM VIAL IVPUSH (08:08)
[2025-01-11] MEDS: Insulin Lispro 100 UNIT/ML 3 ML VIAL SUBCUT ×4 (08:08→22:23)
[2025-01-11] MEDS: Sodium Bicarbonate 650 MG TABLET PO (08:09)
[2025-01-11] MEDS: DULoxetine HCl 20 MG CAPSULE.DR PO (08:09)
[2025-01-11] MEDS: 0.9 % Sodium Chloride Flush 3 ML SYRINGE IVFLUSH ×3 (08:09→22:23)
[2025-01-11] MEDS: Sodium Zirconium Cyclosilicate 10 GM POWD.PACK PO (08:10)
[2025-01-11] MEDS: Azithromycin 500 MG in 0.9 % Sodium Chloride 250 ML 125 MG IV (08:10)
[2025-01-11] MEDS: hydrOXYzine HCL 10 MG TABLET PO (08:20)
[2025-01-11 10:49] LABS: Anion Gap 14 (12-20); Blood Urea Nitrogen 79 mg/dL (9-16); Calcium 7.6 mg/dL (8.4-10.2); Carbon Dioxide 30 mmol/L (22-29); Chloride 103 mmol/L (96-108); Creatinine Clr Calc Pharmacy 34.6; Estimated Glomerular Filt Rate 30; Glucose Random 248 mg/dL (60-115); Potassium 4.9 mmol/L (3.3-5.1); Sodium 142 mmol/L (135-145)
[2025-01-11] MEDS: oxyCODONE HCl Immed Release 5 MG TABLET PO ×2 (11:30→22:22)
[2025-01-11] MEDS: guaiFENesin LA 600 MG TAB.ER.12H PO ×2 (11:30→22:22)
[2025-01-11 11:42] LABS: Glucose, Whole Blood 189 mg/dL (60-115)
--- NOTE | 2025-01-11 11:44 | P.PNIM_ITS ---
Subjective Subjective Date of Service: 01/11/25 Interval History: Seen and evaluated this morning Feels anxious and dyspneic with little efforts denies fever or chills no other events Review of Systems Review of Systems: Yes all other systems are reviewed and are negative Physical Exam 2 Vital Signs: Vital Signs: Last Vital Signs Temp 97.7 F 01/11/25 11:21 Pulse 62 01/11/25 11:31 Resp 20 01/11/25 11:31 BP 145/65 H 01/11/25 11:21 Pulse Ox 100 01/11/25 11:21 O2 Del Method Oxymask 01/11/25 11:21 O2 Flow Rate 2 01/11/25 11:21 FiO2 24 01/05/25 06:40 Oxygen Flow Rate 4 01/05/25 02:06 BMI result Body Mass Index 39.1 Const: Other: Constitutional : Awake, interactive, not in distress Neck : Normal inspection, Supple Cardiovascular : RRR, no JVP, trace lower extremity edema Respiratory : good bilateral air entry, fair crackles, scattered expiratory wheezes , on O2 Gastrointestinal: soft, lax, Normal bowel sounds, Non tender Skin : Warm, Dry Neurological : Alert & oriented x3, No focal deficit Objective Data Active Medications Acetaminophen (Acetaminophen 325 Mg Tablet) 650 mg PO Q6H PRN PRN Reason: Pain, Mild 1-3,fever,headache Last Admin: 01/07/25 21:55 Dose: 650 mg Documented By: NICOLA Albuterol Sulfate (Albuterol Sulfate 90 Mcg 8 Gm Inhaler) 2 puff INHALE Q2H PRN PRN Reason: shortness of breath or wheezing Last Admin: 01/10/25 06:22 Dose: 2 puff Documented By: RICKEY Albuterol/Ipratropium (Albuterol/Iprat 2.5/0.5mg 3 Ml Ampul.Neb) 3 ml INHALE RQ4H WHILE AWAKE [facility] Last Admin: 01/11/25 11:31 Dose: 3 ml Documented By: RADHA Atorvastatin Calcium (Atorvastatin Calcium 40 Mg Tablet) 40 mg PO BEDTIME [facility] Last Admin: 01/10/25 22:48 Dose: 40 mg Documented By: RAFA Ceftriaxone Sodium (Ceftriaxone Sodium 1 Gm Vial) 1 gm IVPUSH Q24H [facility] Last Admin: 01/11/25 08:08 Dose: 1 gm Documented By: PERICO Dextrose (Dextrose 50 % 25 Gm/50 Ml Syringe) 25 gm IVPUSH Q15M PRN; Protocol PRN Reason: per Hypoglycemia Standing Ord. Duloxetine HCl (Duloxetine Hcl 20 Mg Capsule.Dr) 20 mg PO DAILY [facility] Last Admin: 01/11/25 08:09 Dose: 20 mg Documented By: PERICO Furosemide (Furosemide 20 Mg/2 Ml Vial) 20 mg IVPUSH BID@0900,1800 [facility]; Protocol Last Admin: 01/11/25 08:08 Dose: 20 mg Documented By: PERICO Glucose (Glucose Gel 15 Gm Gel..Gram.) 15 gm PO Q15M PRN; Protocol PRN Reason: per Hypoglycemia Standing Ord. Guaifenesin (Guaifenesin La 600 Mg Tab.Er.12h) 600 mg PO BID [facility] Last Admin: 01/11/25 11:30 Dose: 600 mg Documented By: MEGAN Heparin Sodium (Porcine) (Heparin Sodium,Porcine 5,000 Unit/Ml Vial) 5,000 unit SUBCUT Q8H [facility] Last Admin: 01/11/25 05:41 Dose: 5,000 unit Documented By: RAFA Hydroxyzine HCl (Hydroxyzine Hcl 25 Mg Tablet) 25 mg PO Q8H PRN PRN Reason: Anxiety Azithromycin 500 mg/ Sodium (Chloride) 250 mls @ 125 mls/hr IV Q24H [facility] Last Infusion: 01/11/25 09:57 Dose: 0 mls/hr Documented By: PERICO Insulin Glargine (Insulin Glargine,Hum.Rec.Anlog 100 Unit/Ml 10 Ml Vial) 18 unit SUBCUT BEDTIME [facility] Last Admin: 01/10/25 22:49 Dose: 18 unit Documented By: RAFA Insulin Human Lispro (Insulin Lispro 100 Unit/Ml 3 Ml Vial) 0 unit SUBCUT QIDACHS [facility]; Protocol Last Admin: 01/11/25 11:28 Dose: 2 unit Documented By: MEGAN Levothyroxine Sodium (Levothyroxine Sodium 100 Mcg/5 Ml Vial) 100 mcg IVPUSH DAILY@0600 [facility] Last Admin: 01/11/25 05:41 Dose: 100 mcg Documented By: RAFA Lorazepam (Lorazepam 0.5 Mg Tablet) 0.5 mg PO Q8H PRN PRN Reason: Anxiety Last Admin: 01/11/25 03:10 Dose: 0.5 mg Documented By: CINTHIA-ANGELA Methylprednisolone Sodium Succinate (Methylprednisolone Sod Succ 40 Mg/Ml Vial) 40 mg IVPUSH Q24H [facility] Last Admin: 01/10/25 15:24 Dose: 40 mg Documented By: VITO Oxycodone HCl (Oxycodone Hcl Immed Release 5 Mg Tablet) 5 mg PO Q8H PRN PRN Reason: Pain, Severe (Pain Scale 7-10) Last Admin: 01/11/25 11:30 Dose: 5 mg Documented By: MEGAN Sodium Bicarbonate (Sodium Bicarbonate 650 Mg Tablet) 650 mg PO DAILY [facility] Last Admin: 01/11/25 08:09 Dose: 650 mg Documented By: PERICO Sodium Chloride (0.9 % Sodium Chloride Flush 3 Ml Syringe) 3 ml IVFLUSH QSHIFT [facility] Last Admin: 01/11/25 08:09 Dose: 3 ml Documented By: PERICO Sodium Zirconium Cyclosilicate (Sodium Zirconium Cyclosilicate 10 Gm Powd.Pack) 10 gm PO DAILY [facility] Last Admin: 01/11/25 08:10 Dose: 10 gm Documented By: PERICO Labs 01/11/25 05:01 01/11/25 10:21 Labs: Laboratory Results - last 24 hr 01/10/25 01/10/25 01/11/25 15:45 20:48 05:01 MCV 100.8 H MCH 29.7 MCHC 29.5 L RDW 16.5 H Plt Count 219 MPV 9.8 Immature Gran % (Auto) 0.5 H Neut % (Auto) 87.2 H Lymph % (Auto) 6.5 L [place] % (Auto) 5.2 Eos % (Auto) 0.3 Baso % (Auto) 0.3 Lymph # (Auto) 0.4 L [place] # (Auto) 0.3 Eos # (Auto) 0.0 Baso # (Auto) 0.0 Abs Immat Gran (auto) 0.03 Absolute Neuts (auto) 5.7 Absolute Nucleated RBC 0.000 Nucleated RBC % (auto) 0.0 Hold Purple Top Anion Gap 14 Estim Creat Clear Calc 34.4 Estimated GFR 30 POC Glucose 203 H 320 H Random Glucose 268 H Calcium 7.4 L D Phosphorus 5.8 H Magnesium 2.0 01/11/25 01/11/25 01/11/25 07:24 10:21 11:20 MCV MCH MCHC RDW Plt Count MPV Immature Gran % (Auto) Neut % (Auto) Lymph % (Auto) [place] % (Auto) Eos % (Auto) Baso % (Auto) Lymph # (Auto) [place] # (Auto) Eos # (Auto) Baso # (Auto) Abs Immat Gran (auto) Absolute Neuts (auto) Absolute Nucleated RBC Nucleated RBC % (auto) Hold Purple Top SEE NOTE Anion Gap 14 Estim Creat Clear Calc 34.6 Estimated GFR 30 POC Glucose 172 H 189 H Random Glucose 248 H Calcium 7.6 L Phosphorus Magnesium Assessment and Plan (1) Pneumonia: Status: Acute (2) CHF (congestive heart failure): Status: Acute (3) Urinary tract infection: Status: Acute Plan 79F PMH chronic hypoxic respiratory failure on 2 L home O2 due to COPD, morbid obesity with obstructive sleep apnea noncompliant with CPAP, chronic right-sided and diastolic CHF, CKD 4, diabetes, hypertension, hyperlipidemia presented with shortness of breath. On initial presentation, 01/05/25, had combined acute respiratory acidosis and acute on chronic metabolic acidosis. Was treated with BiPAP and then transferred to the intensive care unit for persistent acidosis. Patient's respiratory status improved and was downgraded to medical floor on 01/06/2025. Acute on chronic hypoxic and hypercapnic respiratory failure due to COPD with acute decompensation, acute on chronic diastolic CHF and possible pneumonia Now back at baseline O2, still sob and tachypneic Continue ceftriaxone azithromycin Steroids and nebs Likely additional element of anxiety - ativan\Valium Acute on chronic metabolic acidosis, ?RTA IV Nephro follwoing po bicarb to 650 daily Monitor Urinary tract infection Due to Providencia, continue ceftriaxone (started 01/05/25) culture 01/03/25 also had e faecalis, but repeat 01/05 providencia only acute Hyperkalemia could be rta IV low potassium diet Daily lokelma, monitor Diabetes Insulin Hypothyroid Levothyroxine Morbid obesity/TEZ CPAP at night, weight loss Chronic venous stasis and stage I pressure wound of coccyx Continue local wound care deconditioning - PT eval DVT prophylaxis with Lovenox Full Code reason for continued hospitalization: still sob, tachypneic, deconditioned Quality Stroke Does the patient have a stroke diagnosis?: No VTE Prior VTE?: No VTE Risk Level:: Medical - moderate - high VTE Device Contraindication: N/A - Device Ordered VTE Drug Contraindication: N/A - Med Ordered
--- NOTE | 2025-01-11 11:58 | MHC.CLN ---
F/U PO INTAKE REMAINS 100% CONSISTENTLY DIET RX: 2000DM -APPROPRIATE RECEIVING ENSURE MAX BID TO PROMOTE WOUND HEALING SUPP PROVIDES 300KCALS, 60G PROTEIN MONITOR PO INTAKE AND ENCOURAGE SUPPLEMENTS
--- NOTE | 2025-01-11 13:22 | PM.PNNEP ---
Subjective Subjective Date of Service: 01/11/25 Interval history: Seen and evaluated this morning ;no other events Physical Exam Vital Signs: Vital Signs: Last Vital Signs Temp 97.7 F 01/11/25 11:21 Pulse 62 01/11/25 11:31 Resp 20 01/11/25 11:31 BP 145/65 H 01/11/25 11:21 Pulse Ox 100 01/11/25 11:21 O2 Del Method Oxymask 01/11/25 11:21 O2 Flow Rate 2 01/11/25 11:21 FiO2 24 01/05/25 06:40 Oxygen Flow Rate 4 01/05/25 02:06 BMI result Body Mass Index 39.1 Const: General: no acute distress Orientation/consciousness: patient oriented x3 Eyes: EOM: EOMs intact bilaterally Resp: Auscultation: diminished lung sounds Cardio: Rate: regular rate GI: Palpation (GI): Soft to palpation Neuro: General: patient oriented x3 Objective Data Labs 01/11/25 05:01 01/11/25 10:21 Labs: Laboratory Results - last 24 hr 01/10/25 01/10/25 01/11/25 15:45 20:48 05:01 WBC 6.5 RBC 2.66 L Hgb 7.9 L Hct 26.8 L MCV 100.8 H MCH 29.7 MCHC 29.5 L RDW 16.5 H Plt Count 219 MPV 9.8 Immature Gran % (Auto) 0.5 H Neut % (Auto) 87.2 H Lymph % (Auto) 6.5 L [place] % (Auto) 5.2 Eos % (Auto) 0.3 Baso % (Auto) 0.3 Lymph # (Auto) 0.4 L [place] # (Auto) 0.3 Eos # (Auto) 0.0 Baso # (Auto) 0.0 Abs Immat Gran (auto) 0.03 Absolute Neuts (auto) 5.7 Absolute Nucleated RBC 0.000 Nucleated RBC % (auto) 0.0 Hold Purple Top Sodium 142 Potassium 5.3 H Chloride 103 Carbon Dioxide 30 H Anion Gap 14 BUN 77 H Creatinine 1.66 H Estim Creat Clear Calc 34.4 Estimated GFR 30 POC Glucose 203 H 320 H Random Glucose 268 H Calcium 7.4 L D Phosphorus 5.8 H Magnesium 2.0 01/11/25 01/11/25 01/11/25 07:24 10:21 11:20 WBC RBC Hgb Hct MCV MCH MCHC RDW Plt Count MPV Immature Gran % (Auto) Neut % (Auto) Lymph % (Auto) [place] % (Auto) Eos % (Auto) Baso % (Auto) Lymph # (Auto) [place] # (Auto) Eos # (Auto) Baso # (Auto) Abs Immat Gran (auto) Absolute Neuts (auto) Absolute Nucleated RBC Nucleated RBC % (auto) Hold Purple Top SEE NOTE Sodium 142 Potassium 4.9 Chloride 103 Carbon Dioxide 30 H Anion Gap 14 BUN 79 H Creatinine 1.65 H Estim Creat Clear Calc 34.6 Estimated GFR 30 POC Glucose 172 H 189 H Random Glucose 248 H Calcium 7.6 L Phosphorus Magnesium Microbiology Microbiology Results: Microbiology 01/05/25 04:27 Blood - Venous Blood Culture - Final No growth after 5 days. 01/05/25 04:26 Blood - Venous Blood Culture - Final No growth after 5 days. 01/05/25 Unknown Urine Catheterized - Moyer Catheter Urine Culture - Final Providencia stuartii Procedures Date of Service Date of Service: 01/11/25 Assessment & Plan Assessment and plan (1) Acute kidney injury superimposed on CKD: Status: Acute Plan 79-year-old woman with a history of acute kidney injury superimposed on CKD. At present renal function is close to baseline. ; h/o persistent mild hyperkalemia. Keep on low-potassium diet. Lokelma p.r.n.. C/W PO bicarbonate and maintain total CO2 more than 18 millimoles. Shall follow along with the team Progress Note: Quality Stroke Does the patient have a stroke diagnosis?: No
[2025-01-11] MEDS: methylPREDNISolone Sod Succ 40 MG/ML VIAL IVPUSH (14:33)
--- NOTE | 2025-01-11 14:44 | P.CNPS_ITS ---
History of Present Illness Date of Service: 01/11/2025 Chief Complaint: respiratory failure Reason for Consult: anxiety Requesting physician: Nawaf Bhatti Discussed with referring provider: Yes Sources of Information: patient interviewed, chart reviewed and crisis/core team assessment reviewed HPI Narrative: Mrs. Vaca is a 79 year-old with multiple medical comorbidities, including COPD, CKD, CHF, DM. She was admitted for acute on chronic respiratory failure due to pneumonia. She has had a prolonged admission in that she had metabolic and respiratory acidosis and had brief admission to ICU. Psychiatry was asked to recommend tx for anxiety as it is also affecting her medical conditions. Pt seen in her room. She reports she has had anxiety for some time. She reports she feels anxious mostly all day long. No panic attacks. She reports she worries about her son who lives with her and although he helps her with her care, she reports he also has some emotional problems. She reports she is mostly anxious. She does not describe her self as depressed, but feeling of worry does seem to cause to sadness. She adamantly denies SI/HI. She reports sleep is fair due to ongoing pain in back. She denies hx of visual or auditory hallucinations. She denies s/s suggestive of hypomania or queta. She reports she is currently on cymbalta which was started while she was at a nursing facility. She reports some benefit, however, dose increase is limited due to creatinine clearance 34.6. She reports she has not tried any other antidepressants. She has been on atarax for anxiety as well. Past Psychiatric History: Inpt: none OP: none Hx of suicide attempt: none Past medication trials: cymbalta Medical Evaluation Reviewed: Yes [facility] Medical History Anemia Herpes zoster MARJORIE (acute kidney injury) Left bundle branch block Morbid obesity Chronic pain syndrome Anxiety Pernicious anemia COPD (chronic obstructive pulmonary disease) CHF (congestive heart failure) Hypothyroidism Essential hypertension Diabetes mellitus Pure hypercholesterolemia Surgical History H/O left knee surgery Deficient knowledge of leg surgery History of tonsillectomy and adenoidectomy History of appendectomy Diagnostics Vital Signs (24Hr): Vital Signs - 24 hr 01/10/25 15:19 01/10/25 15:26 01/10/25 18:53 Temperature 97.6 F Pulse Rate 70 70 65 Respiratory Rate 18 18 18 Blood Pressure 147/64 H Pulse Oximetry 97 Oxygen Delivery Method CPAP Oxygen Flow Rate 01/10/25 19:23 01/10/25 23:44 01/11/25 04:00 Temperature 97.0 F 96.8 F 97.8 F Pulse Rate 60 66 58 Respiratory Rate 18 17 17 Blood Pressure 152/66 H 143/65 H 131/60 Pulse Oximetry 98 100 99 Oxygen Delivery Method Oxymask Nasal Cannula Oxymask Oxygen Flow Rate 4 4.5 3 01/11/25 07:31 01/11/25 07:31 01/11/25 11:21 Temperature 97.6 F 97.7 F Pulse Rate 58 54 62 Respiratory Rate 17 20 20 Blood Pressure 141/64 H 145/65 H Pulse Oximetry 98 100 Oxygen Delivery Method Oxymask Oxymask Oxygen Flow Rate 2 2 01/11/25 11:31 Temperature Pulse Rate 62 Respiratory Rate 20 Blood Pressure Pulse Oximetry Oxygen Delivery Method Oxygen Flow Rate BMI result Body Mass Index 39.1 Labs 01/11/25 05:01 01/11/25 10:21 Labs: Laboratory Results - last 48 hr 01/09/25 01/09/25 01/10/25 15:51 20:49 07:05 WBC RBC Hgb Hct MCV MCH MCHC RDW Plt Count MPV Immature Gran % (Auto) Neut % (Auto) Lymph % (Auto) [place] % (Auto) Eos % (Auto) Baso % (Auto) Lymph # (Auto) [place] # (Auto) Eos # (Auto) Baso # (Auto) Abs Immat Gran (auto) Absolute Neuts (auto) Absolute Nucleated RBC Nucleated RBC % (auto) Hold Purple Top Sodium 143 Potassium 5.2 H Chloride 106 Carbon Dioxide 29 Anion Gap 13 BUN 63 H Creatinine 1.56 H Estim Creat Clear Calc 36.6 Estimated GFR 32 POC Glucose 127 H 339 H Random Glucose 219 H Calcium 7.9 L Phosphorus 4.6 H Magnesium 2.1 01/10/25 01/10/25 01/10/25 07:06 07:06 07:06 WBC 7.0 6.8 RBC 3.04 L 3.10 L Hgb 9.0 L Hct MCV MCH MCHC RDW Plt Count MPV Immature Gran % (Auto) Neut % (Auto) Lymph % (Auto) [place] % (Auto) Eos % (Auto) Baso % (Auto) Lymph # (Auto) [place] # (Auto) Eos # (Auto) Baso # (Auto) Abs Immat Gran (auto) Absolute Neuts (auto) Absolute Nucleated RBC Nucleated RBC % (auto) Hold Purple Top Sodium Potassium Chloride Carbon Dioxide Anion Gap BUN Creatinine Estim Creat Clear Calc Estimated GFR POC Glucose Random Glucose Calcium Phosphorus Magnesium 01/10/25 01/10/25 01/10/25 07:06 07:06 07:06 WBC RBC Hgb 9.2 L Hct 30.1 L 30.7 L MCV 99.0 H 99.0 H MCH 29.6 MCHC RDW Plt Count MPV Immature Gran % (Auto) Neut % (Auto) Lymph % (Auto) [place] % (Auto) Eos % (Auto) Baso % (Auto) Lymph # (Auto) [place] # (Auto) Eos # (Auto) Baso # (Auto) Abs Immat Gran (auto) Absolute Neuts (auto) Absolute Nucleated RBC Nucleated RBC % (auto) Hold Purple Top Sodium Potassium Chloride Carbon Dioxide Anion Gap BUN Creatinine Estim Creat Clear Calc Estimated GFR POC Glucose Random Glucose Calcium Phosphorus Magnesium 01/10/25 01/10/25 01/10/25 07:06 07:06 07:06 WBC RBC Hgb Hct MCV MCH 29.7 MCHC 29.9 L 30.0 L RDW 17.2 H 17.2 H Plt Count 237 MPV Immature Gran % (Auto) Neut % (Auto) Lymph % (Auto) [place] % (Auto) Eos % (Auto) Baso % (Auto) Lymph # (Auto) [place] # (Auto) Eos # (Auto) Baso # (Auto) Abs Immat Gran (auto) Absolute Neuts (auto) Absolute Nucleated RBC Nucleated RBC % (auto) Hold Purple Top Sodium Potassium Chloride Carbon Dioxide Anion Gap BUN Creatinine Estim Creat Clear Calc Estimated GFR POC Glucose Random Glucose Calcium Phosphorus Magnesium 01/10/25 01/10/25 01/10/25 07:06 07:06 07:06 WBC RBC Hgb Hct MCV MCH MCHC RDW Plt Count 225 MPV 9.2 L 9.3 L Immature Gran % (Auto) 0.6 H Neut % (Auto) 81.4 H Lymph % (Auto) 9.6 L [place] % (Auto) 7.5 Eos % (Auto) 0.6 Baso % (Auto) 0.3 Lymph # (Auto) 0.7 L [place] # (Auto) 0.5 Eos # (Auto) 0.0 Baso # (Auto) 0.0 Abs Immat Gran (auto) 0.04 H Absolute Neuts (auto) 5.7 Absolute Nucleated RBC 0.000 0.000 Nucleated RBC % (auto) 0.0 Hold Purple Top Sodium Potassium Chloride Carbon Dioxide Anion Gap BUN Creatinine Estim Creat Clear Calc Estimated GFR POC Glucose Random Glucose Calcium Phosphorus Magnesium 01/10/25 01/10/25 01/10/25 07:06 07:22 10:58 WBC RBC Hgb Hct MCV MCH MCHC RDW Plt Count MPV Immature Gran % (Auto) Neut % (Auto) Lymph % (Auto) [place] % (Auto) Eos % (Auto) Baso % (Auto) Lymph # (Auto) [place] # (Auto) Eos # (Auto) Baso # (Auto) Abs Immat Gran (auto) Absolute Neuts (auto) Absolute Nucleated RBC Nucleated RBC % (auto) 0.0 Hold Purple Top Sodium Potassium Chloride Carbon Dioxide Anion Gap BUN Creatinine Estim Creat Clear Calc Estimated GFR POC Glucose 169 H 221 H Random Glucose Calcium Phosphorus Magnesium 01/10/25 01/10/25 01/11/25 15:45 20:48 05:01 WBC 6.5 RBC 2.66 L Hgb 7.9 L Hct 26.8 L MCV 100.8 H MCH 29.7 MCHC 29.5 L RDW 16.5 H Plt Count 219 MPV 9.8 Immature Gran % (Auto) 0.5 H Neut % (Auto) 87.2 H Lymph % (Auto) 6.5 L [place] % (Auto) 5.2 Eos % (Auto) 0.3 Baso % (Auto) 0.3 Lymph # (Auto) 0.4 L [place] # (Auto) 0.3 Eos # (Auto) 0.0 Baso # (Auto) 0.0 Abs Immat Gran (auto) 0.03 Absolute Neuts (auto) 5.7 Absolute Nucleated RBC 0.000 Nucleated RBC % (auto) 0.0 Hold Purple Top Sodium 142 Potassium 5.3 H Chloride 103 Carbon Dioxide 30 H Anion Gap 14 BUN 77 H Creatinine 1.66 H Estim Creat Clear Calc 34.4 Estimated GFR 30 POC Glucose 203 H 320 H Random Glucose 268 H Calcium 7.4 L D Phosphorus 5.8 H Magnesium 2.0 01/11/25 01/11/25 01/11/25 07:24 10:21 11:20 WBC RBC Hgb Hct MCV MCH MCHC RDW Plt Count MPV Immature Gran % (Auto) Neut % (Auto) Lymph % (Auto) [place] % (Auto) Eos % (Auto) Baso % (Auto) Lymph # (Auto) [place] # (Auto) Eos # (Auto) Baso # (Auto) Abs Immat Gran (auto) Absolute Neuts (auto) Absolute Nucleated RBC Nucleated RBC % (auto) Hold Purple Top SEE NOTE Sodium 142 Potassium 4.9 Chloride 103 Carbon Dioxide 30 H Anion Gap 14 BUN 79 H Creatinine 1.65 H Estim Creat Clear Calc 34.6 Estimated GFR 30 POC Glucose 172 H 189 H Random Glucose 248 H Calcium 7.6 L Phosphorus Magnesium Imaging Radiology Impressions: ITS Impressions Chest X-Ray 01/11/25 10:19 IMPRESSION: Progression of right upper lobe pneumonia. New left lower lobe pneumonia. Electronically signed by: Valeriano Garnett MD 01/11/2025 10:50 AM EDT RP Mental Status Exam Mental Status Exam Narrative: Appearance: wearing hospital gown, fair hygiene, in NAD Behavior: cooperative Psychomotor: no agitation or retardation noted Speech: clear, normal rate/rhythm/volume, spontaneous TP: linear TC: feeling tired and weak Mood: anxious Affect: more tired, than anxious SI: none HI: none VH/AH: none Delusions: none Insight/judgment: fair x 2. memory/cog: alert, oriented x 3. not formally tested, grossly intact to conversational testing. Medications Medications Current Medications Acetaminophen (Acetaminophen 325 Mg Tablet) 650 mg PO Q6H PRN PRN Reason: Pain, Mild 1-3,fever,headache Last Admin: 01/07/25 21:55 Dose: 650 mg Albuterol Sulfate (Albuterol Sulfate 90 Mcg 8 Gm Inhaler) 2 puff INHALE Q2H PRN PRN Reason: shortness of breath or wheezing Last Admin: 01/10/25 06:22 Dose: 2 puff Albuterol/Ipratropium (Albuterol/Iprat 2.5/0.5mg 3 Ml Ampul.Neb) 3 ml INHALE RQ4H WHILE AWAKE GEO Last Admin: 01/11/25 11:31 Dose: 3 ml Atorvastatin Calcium (Atorvastatin Calcium 40 Mg Tablet) 40 mg PO BEDTIME [facility] Last Admin: 01/10/25 22:48 Dose: 40 mg Ceftriaxone Sodium (Ceftriaxone Sodium 1 Gm Vial) 1 gm IVPUSH Q24H [facility] Last Admin: 01/11/25 08:08 Dose: 1 gm Dextrose (Dextrose 50 % 25 Gm/50 Ml Syringe) 25 gm IVPUSH Q15M PRN; Protocol PRN Reason: per Hypoglycemia Standing Ord. Furosemide (Furosemide 20 Mg/2 Ml Vial) 20 mg IVPUSH BID@0900,1800 [facility]; Protocol Last Admin: 01/11/25 08:08 Dose: 20 mg Glucose (Glucose Gel 15 Gm Gel..Gram.) 15 gm PO Q15M PRN; Protocol PRN Reason: per Hypoglycemia Standing Ord. Guaifenesin (Guaifenesin La 600 Mg Tab.Er.12h) 600 mg PO BID [facility] Last Admin: 01/11/25 11:30 Dose: 600 mg Heparin Sodium (Porcine) (Heparin Sodium,Porcine 5,000 Unit/Ml Vial) 5,000 unit SUBCUT Q8H [facility] Last Admin: 01/11/25 14:33 Dose: 5,000 unit Hydroxyzine HCl (Hydroxyzine Hcl 25 Mg Tablet) 25 mg PO Q8H PRN PRN Reason: Anxiety Azithromycin 500 mg/ Sodium (Chloride) 250 mls @ 125 mls/hr IV Q24H [facility] Last Infusion: 01/11/25 12:52 Dose: Infused Insulin Glargine (Insulin Glargine,Hum.Rec.Anlog 100 Unit/Ml 10 Ml Vial) 18 unit SUBCUT BEDTIME [facility] Last Admin: 01/10/25 22:49 Dose: 18 unit Insulin Human Lispro (Insulin Lispro 100 Unit/Ml 3 Ml Vial) 0 unit SUBCUT QIDACHS [facility]; Protocol Last Admin: 01/11/25 11:28 Dose: 2 unit Levothyroxine Sodium (Levothyroxine Sodium 100 Mcg/5 Ml Vial) 100 mcg IVPUSH DAILY@0600 [facility] Last Admin: 01/11/25 05:41 Dose: 100 mcg Lorazepam (Lorazepam 0.5 Mg Tablet) 0.5 mg PO Q8H PRN PRN Reason: Anxiety Last Admin: 01/11/25 03:10 Dose: 0.5 mg Methylprednisolone Sodium Succinate (Methylprednisolone Sod Succ 40 Mg/Ml Vial) 40 mg IVPUSH Q24H [facility] Last Admin: 01/11/25 14:33 Dose: 40 mg Oxycodone HCl (Oxycodone Hcl Immed Release 5 Mg Tablet) 5 mg PO Q8H PRN PRN Reason: Pain, Severe (Pain Scale 7-10) Last Admin: 01/11/25 11:30 Dose: 5 mg Sertraline HCl (Sertraline Hcl 25 Mg Tablet) 25 mg PO ONCE ONE Stop: 01/11/25 14:43 Sertraline HCl (Sertraline Hcl 50 Mg Tablet) 50 mg PO DAILY [facility] Sodium Bicarbonate (Sodium Bicarbonate 650 Mg Tablet) 650 mg PO DAILY [facility] Last Admin: 01/11/25 08:09 Dose: 650 mg Sodium Chloride (0.9 % Sodium Chloride Flush 3 Ml Syringe) 3 ml IVFLUSH QSHIFT [facility] Last Admin: 01/11/25 08:09 Dose: 3 ml Sodium Zirconium Cyclosilicate (Sodium Zirconium Cyclosilicate 10 Gm Powd.Pack) 10 gm PO DAILY [facility] Last Admin: 01/11/25 08:10 Dose: 10 gm Allergies Allergies Allergy/AdvReac Type Severity Reaction Status Date / Time ibuprofen [From Motrin] Allergy Unknown swelling Verified 01/05/25 02:13 codeine [CODEINE] AdvReac Unknown SLEEPY Verified 01/05/25 02:13 Assessment & Plan Assessment & Plan (1) Generalized anxiety disorder: Status: Acute Code(s): F41.1 - Generalized anxiety disorder Plan Mrs. Vaca is a 79 year-old woman admitted for acute on chronic respiratory failure due to pneumonia, multiple other comorbidities including CHF, CKD, DM, CHF. Psychiatry asked to see her as she has been presenting as anxious. Although, she reports anxiety related to multiple factors and denies depression, there is some degree of sadness. She does denied SI/HI. We discussed risks, benefit and alternative treatment options, recommend switching to sertraline and d/c cymbalta as dose is limited due to renal function. We discussed most common side effects with sertraline including GI side effects, loose stools or nausea, that may resolved within week but if severe or persistent may need to change antidepressant. She has been taking atarax for anxiety- I do not recommend this medication as it can increase confusion, effect of antihistamine on the heart. PLAN 1. No need for inpt psych admission 2. d/c cymbalta, start sertraline 50mg po daily. Follow up with PCP or if she can be referred to OP psychiatric provider it would be better. Total time managing care of this patient today ____ minutes.
[2025-01-11] MEDS: Acetaminophen 325 MG TABLET 650 MG PO ×2 (16:20→22:22)
[2025-01-11] MEDS: Sertraline HCL 25 MG TABLET PO (16:20)
[2025-01-11] MEDS: hydrOXYzine HCL 25 MG TABLET PO (16:20)
[2025-01-11 16:21] LABS: Glucose, Whole Blood 168 mg/dL (60-115)
[2025-01-11 22:00] LABS: Glucose, Whole Blood 365 mg/dL (60-115)
[2025-01-11] MEDS: Atorvastatin Calcium 40 MG TABLET PO (22:22)
[2025-01-11] MEDS: Insulin Glargine,Hum.rec.anlog 100 UNIT/ML 10 ML VIAL 18 UNIT SUBCUT (22:22)
[2025-01-12] VITALS (9 sets, daily range): BP systolic 137–168; BP diastolic 62–64; PULSE 48–81; RESP 16–18; TEMP 36–37; O2SAT 86–99
[2025-01-12] MEDS: Heparin Sodium,Porcine 5,000 UNIT/ML VIAL 5000 UNIT SUBCUT (05:59)
[2025-01-12] MEDS: Levothyroxine Sodium 100 MCG/5 ML VIAL IVPUSH (06:00)
--- NOTE | 2025-01-12 06:49 | PC.NURSE ---
Assumed care of patient at 23:00. 03:00 hour pt's HR was noted to be lower than trend of 50-70's (noted in 40's intermittently). Vitals obtained, slightly hypertensive though patient was upset about being woken up for vitals and denied symptoms, reported she wanted to go back to sleep. Covering Dr. Hernández notified, no new orders advised. Breathing remains even and unlabored without distress on cpap overnight. Resistive/refuses repositioning at times despite education. Please see shift assessments, tasks, and MAR for full details. Bed alarm on and safety measures in place. Plan of care continues. Handoff report given to oncoming RN at 06:45.
[2025-01-12 07:14] LABS: Glucose, Whole Blood 232 mg/dL (60-115)
[2025-01-12 07:26] LABS: MANUAL DIFF FLAG NO
[2025-01-12 07:34] LABS: Basophils Percent Auto 0.4 % (0-2); Eosinophils Percent Auto 0.6 % (0-4); Hematocrit 27.4 % (37.0-47.0); Hemoglobin 8.3 g/dl (12.0-16.0); Imm Gran Abs Auto 0.04 X10*3/uL (0.00-0.03); Imm Gran Pct Auto 0.6 % (0.0-0.4); Lymphocytes Absolute Auto 0.6 X10*3/uL (1.2-4.9); Lymphocytes Percent Auto 7.6 % (20-40); Mean Corpuscular HGB Conc 30.3 g/dl (31.0-35.0); Mean Corpuscular Hemoglobin 30.5 pg (27.0-33.0); Mean Corpuscular Volume 100.7 fL (80.0-98.0); Mean Platelet Volume 9.1 fL (9.4-12.3); Monocytes Absolute Auto 0.5 X10*3/uL (0.1-1.2); Monocytes Percent Auto 6.6 % (2-11); Neutrophils Absolute Auto 6.1 x10*3/uL (2.0-8.3); Neutrophils Percent Auto 84.2 % (45-73); Platelet Count 194 X10*3/uL (160-400); Red Blood Count 2.72 X10*6/uL (4.20-5.50); Red Cell Distribution Width 16.5 % (11.0-16.0); White Blood Count 7.2 X10*3/uL (4.8-10.8)
[2025-01-12 07:43] LABS: Anion Gap 15 (12-20); Blood Urea Nitrogen 90 mg/dL (9-16); Calcium 7.3 mg/dL (8.4-10.2); Carbon Dioxide 31 mmol/L (22-29); Chloride 102 mmol/L (96-108); Creatinine Clr Calc Pharmacy 37.1; Estimated Glomerular Filt Rate 33; Glucose Random 196 mg/dL (60-115); Magnesium 2.1 mg/dL (1.6-2.6); Phosphorus 5.6 mg/dL (2.7-4.5); Potassium 5.2 mmol/L (3.3-5.1); Sodium 143 mmol/L (135-145)
[2025-01-12] MEDS: Albuterol/Iprat 2.5/0.5MG 3 ML AMPUL.NEB INHALE ×3 (07:43→15:39)
[2025-01-12] MEDS: Sodium Bicarbonate 650 MG TABLET PO (08:09)
[2025-01-12] MEDS: guaiFENesin LA 600 MG TAB.ER.12H PO (08:09)
[2025-01-12] MEDS: LORazepam 0.5 MG TABLET PO ×2 (08:09→15:39)
[2025-01-12] MEDS: Sertraline HCL 50 MG TABLET PO (08:09)
[2025-01-12] MEDS: Insulin Lispro 100 UNIT/ML 3 ML VIAL SUBCUT ×3 (08:10→17:06)
[2025-01-12] MEDS: 0.9 % Sodium Chloride Flush 3 ML SYRINGE IVFLUSH (08:11)
[2025-01-12] MEDS: Furosemide 20 MG/2 ML VIAL IVPUSH (08:11)
[2025-01-12] MEDS: Azithromycin 500 MG in 0.9 % Sodium Chloride 250 ML 125 MG IV (09:28)
[2025-01-12] MEDS: cefTRIAXone sodium 1 GM VIAL IVPUSH (09:30)
[2025-01-12] MEDS: Sodium Zirconium Cyclosilicate 10 GM POWD.PACK PO (09:43)
[2025-01-12] MEDS: oxyCODONE HCl Immed Release 5 MG TABLET PO (10:58)
[2025-01-12 11:19] LABS: Glucose, Whole Blood 151 mg/dL (60-115)
--- NOTE | 2025-01-12 12:47 | MHC.CM.PN ---
Per MD, Patient is medically cleared for dc; PT is recommending home with services. Patient will have her initial PCP appointment with Dr. Neida العلي in April 2025; [facility] has reached out to PCP, asking if there is a way to get VNA services for Patient before the initial appointment in April. CM spoke with Son/HCP/Caregiver/Robbie @ [phone] and he indicated that he is comfortable with his Mother returning home to his continued care, with or without VNA. CM has informed MD and CM awaits a response from the VNA. CM will follow.
[2025-01-12] MEDS: hydrOXYzine HCL 25 MG TABLET PO (13:36)
--- NOTE | 2025-01-12 13:44 | PM.PNNEP ---
Subjective Subjective Date of Service: 01/12/25 Interval history: Events noted Physical Exam Vital Signs: Vital Signs: Last Vital Signs Temp 96.8 F 01/12/25 10:52 Pulse 57 01/12/25 11:33 Resp 16 01/12/25 11:33 BP 137/62 01/12/25 10:52 Pulse Ox 97 01/12/25 10:52 O2 Del Method Nasal Cannula 01/12/25 10:52 O2 Flow Rate 2 01/12/25 10:52 FiO2 24 01/05/25 06:40 Oxygen Flow Rate 4 01/05/25 02:06 BMI result Body Mass Index 39.1 Const: General: no acute distress Orientation/consciousness: patient oriented x3 HEENT: Head: Yes normal to inspection, Yes normocephalic and Yes atraumatic Eyes: General: appearance normal, both eyes and all related structures EOM: EOMs intact bilaterally Neck: Neck: Yes normal visual inspection, Yes full ROM, Yes no meningeal signs, Yes trachea midline and Yes supple Chest: Chest palpation & inspection: normal inspection of the chest Resp: Other: no appreciable overt rales, rhonchi, wheezing Effort & Inspection: normal respiratory effort Auscultation: diminished lung sounds Cardio: Rate: regular rate Rhythm: regular rhythm GI: Inspection: Yes normal to inspection, No Abdominal wall edema and No distended Palpation (GI): Soft to palpation, not firm, nontender, no guarding and not rigid Skin: General skin exam: no rashes or lesions noted Neuro: General: patient oriented x3, tone normal, moves all extremities, no meningeal signs and no focal motor deficits Extrem: Other: appreciable erythema, edema bilateral legs w/o appreciable purulence, likely chronic venous stasis changes General: Yes normal to inspection, Yes full ROM and Yes capillary refill normal Psych: Other: anxiety and uncooperative necessitating significant verbal re-direction Objective Data Labs 01/12/25 07:00 01/12/25 07:00 Labs: Laboratory Results - last 24 hr 01/11/25 01/11/25 01/12/25 16:17 21:13 07:00 WBC 7.2 RBC 2.72 L Hgb 8.3 L Hct 27.4 L MCV 100.7 H MCH 30.5 MCHC 30.3 L RDW 16.5 H Plt Count 194 MPV 9.1 L Immature Gran % (Auto) 0.6 H Neut % (Auto) 84.2 H Lymph % (Auto) 7.6 L [place] % (Auto) 6.6 Eos % (Auto) 0.6 Baso % (Auto) 0.4 Lymph # (Auto) 0.6 L [place] # (Auto) 0.5 Eos # (Auto) 0.0 Baso # (Auto) 0.0 Abs Immat Gran (auto) 0.04 H Absolute Neuts (auto) 6.1 Absolute Nucleated RBC 0.000 Nucleated RBC % (auto) 0.0 Sodium 143 Potassium 5.2 H Chloride 102 Carbon Dioxide 31 H Anion Gap 15 BUN 90 H Creatinine 1.54 H Estim Creat Clear Calc 37.1 Estimated GFR 33 POC Glucose 168 H 365 H* Random Glucose 196 H Calcium 7.3 L Phosphorus 5.6 H Magnesium 2.1 01/12/25 01/12/25 07:04 10:52 WBC RBC Hgb Hct MCV MCH MCHC RDW Plt Count MPV Immature Gran % (Auto) Neut % (Auto) Lymph % (Auto) [place] % (Auto) Eos % (Auto) Baso % (Auto) Lymph # (Auto) [place] # (Auto) Eos # (Auto) Baso # (Auto) Abs Immat Gran (auto) Absolute Neuts (auto) Absolute Nucleated RBC Nucleated RBC % (auto) Sodium Potassium Chloride Carbon Dioxide Anion Gap BUN Creatinine Estim Creat Clear Calc Estimated GFR POC Glucose 232 H 151 H Random Glucose Calcium Phosphorus Magnesium Microbiology Microbiology Results: Microbiology 01/05/25 04:27 Blood - Venous Blood Culture - Final No growth after 5 days. 01/05/25 04:26 Blood - Venous Blood Culture - Final No growth after 5 days. 01/05/25 Unknown Urine Catheterized - Moyer Catheter Urine Culture - Final Providencia stuartii Procedures Date of Service Date of Service: 01/12/25 Assessment & Plan Assessment and plan (1) Acute kidney injury superimposed on CKD: Status: Acute Plan 79-year-old woman with a history of acute kidney injury superimposed on CKD. At present renal function is close to baseline. h/o persistent mild hyperkalemia. Watch for obstructive uropathy. Keep on low-potassium diet. Lokelma p.r.n.. Replace bicarbonate orally and maintain total CO2 more than 18 millimoles. Shall follow along with the team Time Spent With Patient Time: Total time managing care of this patient today ____ minutes. Progress Note: Quality Stroke Does the patient have a stroke diagnosis?: No
--- NOTE | 2025-01-12 14:16 | P.DS_ITS ---
DS: Providers Provider Date of Service: 01/12/25 Date of admission: 01/05/25 12:37 Date of discharge: 01/12/25 Primary care physician: Unknown Physician Consults: 01/07/25 07:28 Consult to Nephrology Routine Consulting Provider: [facility] Reason for consultation: chronic metabolic acidosis, ?etiology 01/10/25 14:06 Consult to Psychiatry Routine Consulting Provider: [facility] Reason for consultation: severe anxiety contributing to respiratory distress DS: Diagnosis Discharge Diagnosis (1) Acute kidney injury superimposed on CKD: Status: Acute (2) Generalized anxiety disorder: Status: Acute (3) Pneumonia: Status: Acute (4) CHF (congestive heart failure): Status: Acute (5) Metabolic acidosis: Status: Acute (6) Urinary tract infection: Status: Acute (7) Acute hyperkalemia: Status: Acute (8) Acute on chronic respiratory failure with hypoxia and hypercapnia: Status: Acute (9) COPD exacerbation: Status: Acute DS: Summary Hospital Course Hospital Course: The patient had prolonged hospital stay. for full details please return to EMR. Admission note HPI This is a 79-year-old female with history of COPD on 2 L of home oxygen who presents to the emergency department with one-week history of intermittent shortness of breath. She reports associated cough. She denies any associated fever or chills. In the emergency department due to increased work of breathing she required BiPAP. She has been off BiPAP in the past 2 hours and her work of breathing has improved. VBG was obtained showing pH of 7.1 initially, improving to 7.2 after BiPAP. Lab work revealing metabolic acidosis with bicarb of 15 as well as hyperkalemia with potassium of 5.7. Chest x-ray showed concern for right upper lobe pneumonia. BNP elevated. Patient received treatment for CHF with IV Lasix, IV antibiotics for pneumonia as well as breathing treatments. She will be admitted for further management. Hospital course The patient was treated for the following: # Acute on chronic hypoxic and hypercapnic respiratory failure due to COPD with acute decompensation, acute on chronic diastolic CHF and pneumonia. The patient required ICU placement for BiPAP on presentation given persistant metabolic acidosis. Treated with Nebulizers, Steroids, antibiotics and O2 supplement with improvement over the course of hospital stay. CPAP at night time. back at baseline O2. Was able to participate with PT who recommended home PT. To be discharged on Azithromycin and Ceftin to finish total of 14 days of antibiotics. Tapering dose prednisone. advised to use CPAP at night time and with naps. # Acute on chronic metabolic acidosis and hyperkalemia She was evaluated by Nephrology team who recommended PO bicarb to 650 daily and Lokelma to control elevated Potassium. To repeat blood test next week and follow with Nephrology as outpatient. # Urinary tract infection, Due to Providencia Treated with IV Ceftriaxone with good response. To finish 5 more days of Ceftin on discharge. #Morbid obesity/TEZ, Advised to stick to CPAP at night, weight loss # Chronic venous stasis and stage I pressure wound of coccyx, Continue local wound care. Cleanse with PH balance spray or wipes, pat dry. ?Apply thin layer of Triad to wound bed. Cover with foam dressing to aid in off loading and protection from friction. Change every 3 days and PRN. Discharge plan Use CPAP at home , wear 2-3L O2 during day time Continue Antibiotics as prescribed Wean down Prednisone as prescribed Lokelma to lower potassium level Furosemide for heart failure Low potassium diet Repeat blood test next week Follow up with dr Villalobos [place] [facility] Follow with PCP for anxiety and dose adjustment of Sertraline Time Attestation Discharge Coordination Time (in mins): 46 Quality: Safe Use of Opioids Does Pt have an Active Cancer Diagnosis on the Problem List?: No Quality: Stroke Does the patient have a stroke diagnosis?: No Physical Exam Vital Signs: Vital Signs: Last Vital Signs Temp 96.8 F 01/12/25 10:52 Pulse 57 01/12/25 11:33 Resp 16 01/12/25 11:33 BP 137/62 01/12/25 10:52 Pulse Ox 97 01/12/25 10:52 O2 Del Method Nasal Cannula 01/12/25 10:52 O2 Flow Rate 2 01/12/25 10:52 FiO2 24 01/05/25 06:40 Oxygen Flow Rate 4 01/05/25 02:06 BMI result Body Mass Index 39.1 Const: Other: Constitutional : Awake, interactive, not in distress Neck : Normal inspection, Supple Cardiovascular : RRR, no JVP, trace lower extremity edema Respiratory : good bilateral air entry, no crackles, no expiratory wheezes , on O2 Gastrointestinal: soft, lax, Normal bowel sounds, Non tender Skin : Warm, Dry Neurological : Alert & oriented x3, No focal deficit DS: Data Data Completed and Pending Completed studies during hospitalization [Text1]: Procedures Assistance with Respiratory Ventilation, Less than 24 Consecutive Hours, Continuous Positive Airway Pressure (08/03/24) Drainage of Left Pleural Cavity, Percutaneous Approach (08/03/24) Insertion of Infusion Device into Superior Vena Cava, Percutaneous Approach (11/10/21) Performance of Urinary Filtration, Intermittent, Less than 6 Hours Per Day (11/10/21) Labs on day of discharge: Laboratory Results - last 24 hr 01/11/25 01/11/25 01/12/25 16:17 21:13 07:00 WBC 7.2 RBC 2.72 L Hgb 8.3 L Hct 27.4 L MCV 100.7 H MCH 30.5 MCHC 30.3 L RDW 16.5 H Plt Count 194 MPV 9.1 L Immature Gran % (Auto) 0.6 H Neut % (Auto) 84.2 H Lymph % (Auto) 7.6 L [place] % (Auto) 6.6 Eos % (Auto) 0.6 Baso % (Auto) 0.4 Lymph # (Auto) 0.6 L [place] # (Auto) 0.5 Eos # (Auto) 0.0 Baso # (Auto) 0.0 Abs Immat Gran (auto) 0.04 H Absolute Neuts (auto) 6.1 Absolute Nucleated RBC 0.000 Nucleated RBC % (auto) 0.0 Sodium 143 Potassium 5.2 H Chloride 102 Carbon Dioxide 31 H Anion Gap 15 BUN 90 H Creatinine 1.54 H Estim Creat Clear Calc 37.1 Estimated GFR 33 POC Glucose 168 H 365 H* Random Glucose 196 H Calcium 7.3 L Phosphorus 5.6 H Magnesium 2.1 01/12/25 01/12/25 07:04 10:52 WBC RBC Hgb Hct MCV MCH MCHC RDW Plt Count MPV Immature Gran % (Auto) Neut % (Auto) Lymph % (Auto) [place] % (Auto) Eos % (Auto) Baso % (Auto) Lymph # (Auto) [place] # (Auto) Eos # (Auto) Baso # (Auto) Abs Immat Gran (auto) Absolute Neuts (auto) Absolute Nucleated RBC Nucleated RBC % (auto) Sodium Potassium Chloride Carbon Dioxide Anion Gap BUN Creatinine Estim Creat Clear Calc Estimated GFR POC Glucose 232 H 151 H Random Glucose Calcium Phosphorus Magnesium Imaging Chest x-ray: Radiologist's impression: ITS Impressions Chest X-Ray 01/11/25 10:19 IMPRESSION: Progression of right upper lobe pneumonia. New left lower lobe pneumonia. Electronically signed by: Valeriano Garnett MD 01/11/2025 10:50 AM EDT RP Discharge Plan Discharge Anticipated Discharge Date/Time: 01/12/25 13:59 Patient Disposition: Home Health Service Discharge Diagnosis: Pneumonia, COPD exacerbation Urine infection Elevated potassium level Referrals: [facility] [Outside] - 1 Week Physician,Unknown J [Primary Care Provider] - 1 Week Discharge Medications: New sodium bicarbonate 650 mg Tablet 650 mg PO DAILY Qty: 90 0RF guaifenesin [Mucinex] 600 mg Tablet Extended Release 12hr 600 mg PO BID Qty: 20 0RF Lokelma 10 gram Powder In Packet 10 g PO DAILY Qty: 90 0RF sertraline 50 mg Tablet 50 mg PO DAILY Qty: 90 0RF azithromycin 500 mg tablet 500 mg PO DAILY 5 Days Qty: 5 0RF cefuroxime axetil 500 mg tablet 500 mg PO BID Qty: 10 0RF furosemide 40 mg tablet 40 mg PO DAILY Qty: 90 0RF prednisone 10 mg tablet See Taper PO DIRECTED Qty: 30 0RF Taper: Prednisone 40 mg daily for 3 Days and 0 Hour 30 mg daily for 3 Days and 0 Hour 20 mg daily for 3 Days and 0 Hour 10 mg daily for 3 Days and 0 Hour Rx Instructions: see taper instructions Continued (DME) insulin syringe-needle U-100 [BD Insulin Syringe Ultra-Fine] 0.5 mL 31 gauge x 5/16 syringe See Rx Instructions .Route Qty: 100 3RF Rx Instructions: Use 1 needle once a day (DME) pen needle, diabetic [1st Tier Unifine Pentips] 31 gauge x 5/16 needle See Rx Instructions .Route Qty: 100 4RF Rx Instructions: Use 1 pen needle once a day atorvastatin 40 mg tablet 40 mg PO BEDTIME 90 Days Qty: 90 3RF Jardiance 10 mg tablet 10 mg PO DAILY Qty: 90 1RF (DME) Accu-Chek Odilia Plus test strp Strip See Rx Instructions .Route Qty: 100 1RF Rx Instructions: Use 1 test strip once a day (DME) Accu-Chek Guide test strips Strip See Rx Instructions .Route Qty: 100 3RF Rx Instructions: Use 1 test strip once a day (DME) lancets [Accu-Chek Softclix Lancets] Misc See Rx Instructions .Route Qty: 100 3RF Rx Instructions: Use 1 lancet once a day insulin glargine [Basaglar KwikPen U-100 Insulin] 100 unit/mL (3 mL) insulin pen 25 unit subcut BEDTIME 30 Days Qty: 7.5 0RF albuterol sulfate [Ventolin HFA] 90 mcg/actuation HFA aerosol inhaler 2 puff inhalation Q6H PRN (Reason: shortness of breath or wheezing) 30 Days Qty: 8.5 0RF levothyroxine 200 mcg tablet 200 mcg PO DAILY@0600 gemfibrozil 600 mg tablet 600 mg PO BID Discontinued duloxetine [Cymbalta] 20 mg capsule,delayed release(DR/EC) 20 mg PO DAILY 90 Days Qty: 90 0RF Discharge Orders: Discharge Order (Routine); Ordered 01/12/25 Ordered By: Jarrett Michel Diet: Diabetic diet Activity on Discharge: As tolerated Stand Alone Forms: Patient Portal Discharge page Print Language: Stateless Other Ambulatory Orders: Basic Metabolic Panel (Routine) Timeframe: 5 Days Facility: [facility] - Location: Laboratory Ordered By: Jarrett Michel Care Plan Goals: Use CPAP at home , wear 2-3L O2 during day time Continue Antibiotics as prescribed Wean down Prednisone as prescribed [facility] to lower potassium level Furosemide for heart failure Low potassium diet Repeat blood test next week Follow up with [place]ob[place] [facility] Follow with PCP for anxiety and dose adjustment of Sertraline Health Concerns: Elevated Potassium Pnuemonia, COPD Urine infection Plan of Treatment: Antibiotics, Steroids [place]ella Nephrology follow up Assessment: as above Patient Instructions: Potassium Content of Foods List (DC), Hyperkalemia (DC)
--- NOTE | 2025-01-12 14:18 | MHC.CM.PN ---
[facility] will start care tomorrow. Patient will dc to home today at 7PM, via [facility] (patient and Son are aware of the dc plan). CM met with Patient at bedside and addressed IMM with her, providing Patient with the original and a copy has been placed on the chart. Originally, forklift picker was set for 4PM but per Son's request, it was changed to 7PM, to allow him time to go grocery shopping. is aware.
--- NOTE | 2025-01-12 14:40 | P.F2F_ITS ---
Service Date Service Date: 01/12/25 Encounter Date of encounter: 01/12/25 Reasons for Services Signs and symptoms assessed: physical deconditioning sacral wound Reason for group home: wound care (Cover with foam dressing to aid in off loading and protection from friction. Change every 3 days and PRN.) Reason for physical therapy: home safety and mobility and therapeutic exercises Homebound: Leaving the home is medically contraindicated at this time without the asist of a device and/or another person due th the listed conditions above and below. Reason homebound: unsteady gait / fall risk Certification: Based on the above findings, I certify that this patient is confined to the home and needs intermittent group home care, physical therapy and/or speech therapy, or continues to need occupational therapy. The patient is under my care, and I have initiated the establishment of the plan of care. The patient will be followed by a physician who will periodically review the plan of care. Time Spent With Patient Time: Total time managing care of this patient today ____ minutes.
[2025-01-12 17:00] LABS: Glucose, Whole Blood 151 mg/dL (60-115)
== END 2025-01-12 19:06 | disposition home health service (06) | DRG 291 ==
LOC: HO.ED 11:10 → HO.EDOVER 12:43 → HO.ICU 13:29 → HO.IMC 01-06 17:03
PROVIDERS: Emergency Medicine; Internal Medicine; Internal Medicine Critical Care Medicine; Nurse Practitioner Family; Admitting Provider Physician Assistant Medical; Emergency Provider Emergency Medicine; Visit Provider Student in an Organized Health Care Education/Training Program
DX: I13.0 Hypertensive heart and chronic kidney disease with heart failure and stage 1 through stage 4 chronic kidney disease, or unspecified chronic kidney disease (principal); I50.33 Acute on chronic diastolic (congestive) heart failure; J18.9 Pneumonia, unspecified organism; J96.21 Acute and chronic respiratory failure with hypoxia; J96.22 Acute and chronic respiratory failure with hypercapnia; J44.0 Chronic obstructive pulmonary disease with (acute) lower respiratory infection; J44.1 Chronic obstructive pulmonary disease with (acute) exacerbation; N18.4 Chronic kidney disease, stage 4 (severe); E87.21 Acute metabolic acidosis; E87.22 Chronic metabolic acidosis; N39.0 Urinary tract infection, site not specified; E87.5 Hyperkalemia; I27.29 Other secondary pulmonary hypertension; I50.812 Chronic right heart failure; E11.65 Type 2 diabetes mellitus with hyperglycemia; I87.8 Other specified disorders of veins; Z99.81 Dependence on supplemental oxygen; L89.151 Pressure ulcer of sacral region, stage 1; E11.22 Type 2 diabetes mellitus with diabetic chronic kidney disease; F41.1 Generalized anxiety disorder; E03.9 Hypothyroidism, unspecified; B96.89 Other specified bacterial agents as the cause of diseases classified elsewhere; E66.01 Morbid (severe) obesity due to excess calories; Z68.39 Body mass index [BMI] 39.0-39.9, adult; Z71.3 Dietary counseling and surveillance; G47.33 Obstructive sleep apnea (adult) (pediatric); T36.1X6A Underdosing of cephalosporins and other beta-lactam antibiotics, initial encounter; Z87.891 Personal history of nicotine dependence; Z91.199 Patient's noncompliance with other medical treatment and regimen due to unspecified reason; Z20.822 Contact with and (suspected) exposure to COVID-19; Z79.4 Long term (current) use of insulin; Z79.890 Hormone replacement therapy; Z79.899 Other long term (current) drug therapy
CPT/HCPCS: 0241U; 36415; 71045; 80048; 80053; 80143; 80179; 81001; 82010; 82040; 82803; 82947; 83605; 83735; 83880; 84100; 84145; 84484; 85025; 85027; 87040; 87086; 87088; 87186; 93005; 94640; 94660; 97110; 97162; 97530; 99284; 99285; J0456; J0613; J0651; J0696; J1644; J1650; J1940; J2060; J2919; P9047

== ENCOUNTER → 2025-01-05 02:19 | Outpatient (BNV) | payer MEDICARE, MEDICAID, SELFPAY | PROVIDERS: Admitting Provider Physician Assistant Medical; Emergency Provider Emergency Medicine; Visit Provider Internal Medicine | DX: R94.31 Abnormal electrocardiogram [ECG] [EKG] (principal); R06.02 Shortness of breath | CPT/HCPCS: 93010 ==

== ENCOUNTER → 2025-01-05 02:25 | Outpatient (BNV) | payer MEDICARE, MEDICAID, SELFPAY | PROVIDERS: Emergency Provider Emergency Medicine; Visit Provider Radiology Vascular & Interventional Radiology | DX: J84.9 Interstitial pulmonary disease, unspecified (principal) | CPT/HCPCS: 71045 ==

== ENCOUNTER 2025-01-05 12:37 | Outpatient (BNV) | payer MEDICARE, MEDICAID, SELFPAY | END 2025-01-11 10:19 | PROVIDERS: Admitting Provider Physician Assistant Medical; Emergency Provider Emergency Medicine; Visit Provider Radiology Diagnostic Radiology | DX: J18.9 Pneumonia, unspecified organism (principal) | CPT/HCPCS: 71045 ==

== ENCOUNTER → 2025-01-05 12:37 | Outpatient (BNV) | payer MEDICARE, MEDICAID, SELFPAY | PROVIDERS: Admitting Provider Physician Assistant Medical; Emergency Provider Emergency Medicine; Visit Provider Internal Medicine Critical Care Medicine | DX: J43.2 Centrilobular emphysema (principal); I50.32 Chronic diastolic (congestive) heart failure; J18.9 Pneumonia, unspecified organism; E87.20 Acidosis, unspecified | CPT/HCPCS: 99223; 99499 ==

== ENCOUNTER → 2025-01-05 12:37 | Outpatient (BNV) | payer MEDICARE, MEDICAID, SELFPAY | PROVIDERS: Admitting Provider Physician Assistant Medical; Emergency Provider Emergency Medicine; Visit Provider Internal Medicine Hypertension Specialist | DX: N17.9 Acute kidney failure, unspecified (principal); N18.9 Chronic kidney disease, unspecified | CPT/HCPCS: 99223; 99232 ==

== ENCOUNTER → 2025-01-05 12:37 | Outpatient (BNV) | payer MEDICARE, MEDICAID, SELFPAY | PROVIDERS: Admitting Provider Physician Assistant Medical; Emergency Provider Emergency Medicine; Visit Provider Social Worker | DX: F41.1 Generalized anxiety disorder (principal) | CPT/HCPCS: 99232 ==

== ENCOUNTER → 2025-01-05 12:37 | Outpatient (BNV) | payer MEDICARE, MEDICAID, SELFPAY | PROVIDERS: Admitting Provider Physician Assistant Medical; Emergency Provider Emergency Medicine; Visit Provider Physician Assistant Medical | DX: J18.9 Pneumonia, unspecified organism (principal); E87.21 Acute metabolic acidosis | CPT/HCPCS: 99223; 99232; 99239; G0180 ==

== ENCOUNTER → 2025-01-17 23:59 | Outpatient (BNV) | payer MEDICARE, MEDICAID, SELFPAY | PROVIDERS: PCP Internal Medicine; Visit Provider Internal Medicine | DX: I13.0 Hypertensive heart and chronic kidney disease with heart failure and stage 1 through stage 4 chronic kidney disease, or unspecified chronic kidney disease (principal); I50.9 Heart failure, unspecified; E11.22 Type 2 diabetes mellitus with diabetic chronic kidney disease; N18.9 Chronic kidney disease, unspecified | CPT/HCPCS: G0180 ==

== ENCOUNTER 2025-02-22 22:47 | Emergency (ER) | payer MEDICARE, MEDICAID, SELFPAY ==
[2025-02-22 22:55] VITALS: BP 150/43; PULSE 58; O2SAT 98
[2025-02-22 22:56] VITALS: BP 150/49; PULSE 59; RESP 16; TEMP 36.8; O2SAT 98; BMI 38.8
[2025-02-22 23:36] VITALS: BP 138/50; PULSE 58; RESP 24; TEMP 36.4; O2SAT 99
[2025-02-22 23:39] LABS: MANUAL DIFF FLAG NO
[2025-02-23 00:01] LABS: Alanine Aminotransferase 8 U/L (0-31); Albumin Level 3.2 g/dL (3.5-5.0); Alkaline Phosphatase 112 U/L (39-117); Anion Gap 19 (12-20); Aspartate Amino Transferase 17 U/L (5-31); Bilirubin Total 0.2 mg/dL (0.0-1.0); Blood Urea Nitrogen 69 mg/dL (9-16); Calcium 8.1 mg/dL (8.4-10.2); Carbon Dioxide 24 mmol/L (22-29); Chloride 107 mmol/L (96-108); Creatinine Clr Calc Pharmacy 28.7; Estimated Glomerular Filt Rate 24; Glucose Random 184 mg/dL (60-115); Potassium 4.8 mmol/L (3.3-5.1); Sodium 145 mmol/L (135-145); Total Protein 6.6 g/dL (6.5-8.0)
--- NOTE | 2025-02-23 00:05 | PC.NURSE ---
pt requesting breathing tx, slight wheezing ausc. sats 99% on baseline 3L NC. aware.
[2025-02-23 00:06] LABS: Basophils Percent Auto 0.5 % (0-2); Eosinophils Absolute Auto 0.1 X10*3/uL (0.0-0.4); Eosinophils Percent Auto 1.7 % (0-4); Hematocrit 27.7 % (37.0-47.0); Hemoglobin 8.4 g/dl (12.0-16.0); Imm Gran Abs Auto 0.05 X10*3/uL (0.00-0.03); Imm Gran Pct Auto 0.8 % (0.0-0.4); Lymphocytes Absolute Auto 0.5 X10*3/uL (1.2-4.9); Lymphocytes Percent Auto 8.1 % (20-40); Mean Corpuscular HGB Conc 30.3 g/dl (31.0-35.0); Mean Corpuscular Hemoglobin 29.4 pg (27.0-33.0); Mean Corpuscular Volume 96.9 fL (80.0-98.0); Mean Platelet Volume 8.9 fL (9.4-12.3); Monocytes Absolute Auto 0.5 X10*3/uL (0.1-1.2); Monocytes Percent Auto 7.2 % (2-11); Neutrophils Absolute Auto 5.4 x10*3/uL (2.0-8.3); Neutrophils Percent Auto 81.7 % (45-73); Platelet Count 264 X10*3/uL (160-400); Red Blood Count 2.86 X10*6/uL (4.20-5.50); Red Cell Distribution Width 13.9 % (11.0-16.0); White Blood Count 6.7 X10*3/uL (4.8-10.8)
[2025-02-23] MEDS: Albuterol Sulfate 5 MG, Albuterol/Iprat 2.5/0.5MG 3 ML 3 ML INHALE (00:19)
[2025-02-23 00:22] VITALS: PULSE 58; RESP 22; O2SAT 100
--- NOTE | 2025-02-23 00:50 | ED.FEMALEGU ---
HPI - Female Genitourinary General Chief complaint: Urogenital-Female Stated complaint: blood in catheter Time Seen by Provider: 02/23/25 00:11 Source: patient and EMS Mode of arrival: EMS Limitations: no limitations History of Present Illness ED Provider: Dr. Jennifer Tenorio HPI Narrative: Patient comes to the emergency room stating that her Moyer catheter is burning. Patient states that she gets it changed every 4-5 weeks, it has been almost 6 weeks since she got it change. Patient denies fever chills, denies abdominal pain flank pain. Patient requesting to have her Moyer catheter changed. Related Data Previous Rx's ?Medication ?Instructions ?Recorded insulin syringe-needle U-100 0.5 #100 ea 07/29/23 mL 31 gauge x 5/16 (BD Insulin Syringe Ultra-Fine) atorvastatin 40 mg tablet 40 mg PO BEDTIME 90 days #90 tabs 06/19/24 blood sugar diagnostic (Accu-Chek #100 ea 07/26/24 Odilia Plus test strips) empagliflozin 10 mg tablet 10 mg PO DAILY #90 tabs 07/26/24 (Jardiance) blood sugar diagnostic (Accu-Chek #100 ea 11/08/24 Guide test strips) lancets (Accu-Chek Softclix #100 ea 11/08/24 Lancets) insulin glargine 100 unit/mL (3 25 unit (0.25 mL) subcut BEDTIME 12/23/24 mL) subcutaneous pen (Basaglar 30 days #7.5 mL KwikPen U-100 Insulin) azithromycin 500 mg tablet 500 mg PO DAILY 5 days #5 tabs 01/12/25 cefuroxime axetil 500 mg tablet 500 mg PO BID #10 tabs 01/12/25 furosemide 40 mg tablet 40 mg PO DAILY #90 tabs 01/12/25 guaifenesin 600 mg tablet, 600 mg PO BID #20 tabs 01/12/25 extended release 12 hr (Mucinex) prednisone 10 mg tablet See Taper PO DIRECTED #30 tabs 01/12/25 sertraline 50 mg tablet 50 mg PO DAILY #90 tabs 01/12/25 sodium bicarbonate 650 mg tablet 650 mg PO DAILY #90 tabs 01/12/25 sodium zirconium cyclosilicate 10 10 g PO DAILY #90 ea 01/12/25 gram oral powder packet (Lokelma) Lift chair #1 ea 01/19/25 pen needle, diabetic 31 gauge x #100 ea 01/24/2503/10 (1st Tier Unifine Pentips) gemfibrozil 600 mg tablet 600 mg PO BID #180 tabs 02/05/25 albuterol sulfate 90 mcg/actuation 2 puff inhalation Q6H PRN 02/10/25 aerosol inhaler (Ventolin HFA) shortness of breath or wheezing 30 days #8.5 grams levothyroxine 200 mcg tablet 200 mcg PO DAILY@0600 90 days #90 02/11/25 tabs cefuroxime axetil 250 mg tablet 250 mg PO BID #14 tabs 02/23/25 Allergies Allergy/AdvReac Type Severity Reaction Status Date / Time ibuprofen [From Motrin] Allergy Unknown swelling Verified 02/22/25 23:05 codeine [CODEINE] AdvReac Unknown SLEEPY Verified 02/22/25 23:05 Review of Systems Review of Systems: Constitutional : No Weight loss, No Fever, No Chills, No Night Sweats, No Fatigue, No Malaise ENT/Mouth : No Hearing loss, No Ear Pain, No Nasal Congestion, No Sinus Pain, No Hoarseness, No sore throat, No Rhinorrhea, No Swallowing Difficulty Eyes: No Eye Pain, No Swelling, No Redness, No Foreign Body, No Discharge, No Vision Changes Cardiovascular : No Chest Pain, No SOB, No Dyspnea on Exertion, No Orthopnea, No Edema, No Palpitations Respiratory : No Cough, No Sputum, complaining of shortness of breath and wheezing, patient states that she missed her scheduled nebulization treatment and requesting a neb treatment Gastrointestinal : No Nausea, No Vomiting, No Diarrhea, No Constipation, No abdominal Pain, No Hematochezia, No Melena Genitourinary : no irregular bleeding, complaining of dysuria from the Moyer catheter,, No Urinary Frequency, No Hematuria, No Urinary Incontinence, No Urgency, No Flank Pain, No Urinary Flow Changes, No Hesitancy Musculoskeletal : No joint pain, No Myalgias, No Joint Swelling Skin : No Skin Lesions, No rash Neuro : No Weakness, No Numbness, No Paresthesias, No Loss of Consciousness, No Dizziness, No Headache Psych : No Anxiety/Panic, No Depression, No SI/HI/AH/VH, No Social Issues, Heme/Lymph: No Bruising, No Bleeding,No Lymphadenopathy Endocrine : No Polyuria, No Polydipsia, No Temperature Intolerance [facility] Past Medical History Medical History Generalized anxiety disorder CHF (congestive heart failure) Anemia Herpes zoster MARJORIE (acute kidney injury) Left bundle branch block Morbid obesity Chronic pain syndrome Anxiety Pernicious anemia COPD (chronic obstructive pulmonary disease) CHF (congestive heart failure) Hypothyroidism Essential hypertension Diabetes mellitus Pure hypercholesterolemia Surgical History H/O left knee surgery Deficient knowledge of leg surgery History of tonsillectomy and adenoidectomy History of appendectomy Family History Family History Father CVD (cardiovascular disease) Mother No problems noted. Family/Other FH: mental illness Social History Social History Household Members: Children and Caregiver Household Members Other:: 2 Housing: House Do you presently have visiting nurse or other home services: No Alcohol intake: unknown Patient Tobacco Use Status: Former Tobacco user Tobacco use type: Cigarette e-Cigarette/Vaping Use: Never Used Second Hand Smoke Exposure: No Advance Directives: Yes Advance Directives on File: Yes Advance Directives Date on File: 06/24/24 Do you have a plan to hurt others: No Plan service: No Current occupational status: disabled Cognitive needs: Yes Hearing needs: No Vision needs: No Physical Exam Vital Signs: Vital Signs: Last Vital Signs Temp 98.1 F 02/23/25 01:38 Pulse 75 02/23/25 01:38 Resp 24 H 02/23/25 01:38 BP 143/49 H 02/23/25 01:38 Pulse Ox 95 02/23/25 01:38 O2 Del Method Nasal Cannula 02/23/25 01:38 O2 Flow Rate 3 02/23/25 01:38 BMI result Body Mass Index 38.8 Const: Other: Appearance: Alert. Oriented X3. No acute distress. Eyes: Pupils equal, round and reactive to light. ENT: Pharynx normal. Neck: Normal inspection. Neck supple. No lymph nodes noted. No crepitus CVS: Normal heart rate and rhythm. Pulses normal. Normal S1 and S2 Respiratory: No respiratory distress. Bilateral wheezing, moderate to good air movement bilaterally Abdomen: Soft and nontender. No rigidity. No distention. Skin: Skin warm and dry. Normal skin color. Normal skin turgor. Extremities: No lower extremity edema. No Lacerations. No Rash Neuro: Oriented X 3. No motor deficit. No sensory deficit. Moving all extremities. No slurred speech. CN 2 through 12 grossly intact Psych: calm, cooperative, normal affect Course Course Course Narrative: Patient states that she missed her scheduled nebulization treatment and is requesting to have a dose before being discharged. Patient denies any recent URI or UTI symptoms. Patient states that this is her baseline. Medications Administered Discontinued Medications Generic Name Dose Route Start Last Admin Trade Name Freq PRN Reason Stop Dose Admin Albuterol Sulfate 5 mg/ 0 mg 02/23/25 00:14 02/23/25 00:19 Albuterol/Ipratropium 3 ml INHALE 02/23/25 00:15 7.5 each ONCE ONE Administration Medical Decision Making Medical Decision Making [facility] Narrative: Patient's Moyer catheter was changed. Patient's hematology and chemistry are at baseline, patient is chronically anemic, creatinine 1.98, at baseline. Urinalysis positive. Patient has a chronic colonizer. However, given that the patient has burning sensation, we will go ahead and treat with antibiotics. Based on patient's microbiology report, patient grows providencia Stuartii, susceptible to most cephalosporins accept cefazolin, resistant to ciprofloxacin, nitrofurantoin, Bactrim ampicillin and gentamicin Patient was given the 1st dose of cefuroxime here in the emergency room. After the nebulization treatment the patient received, patient states that her breathing is back to normal and is requesting to be discharged home as soon as possible, patient feels at baseline Lab Data 02/22/25 23:35 02/22/25 23:35 Labs: Lab Results 02/22/25 02/23/25 Range/Units 23:35 00:57 WBC 6.7 (4.8-10.8) X10*3/uL RBC 2.86 L (4.20-5.50) X10*6/uL Hgb 8.4 L (12.0-16.0) g/dl Hct 27.7 L (37.0-47.0) % MCV 96.9 (80.0-98.0) fL MCH 29.4 (27.0-33.0) pg MCHC 30.3 L (31.0-35.0) g/dl RDW 13.9 (11.0-16.0) % Plt Count 264 D (160-400) X10*3/uL MPV 8.9 L (9.4-12.3) fL Immature Gran % (Auto) 0.8 H (0.0-0.4) % Neut % (Auto) 81.7 H (45-73) % Lymph % (Auto) 8.1 L (20-40) % [place] % (Auto) 7.2 (2-11) % Eos % (Auto) 1.7 (0-4) % Baso % (Auto) 0.5 (0-2) % Lymph # (Auto) 0.5 L (1.2-4.9) X10*3/uL [place] # (Auto) 0.5 (0.1-1.2) X10*3/uL Eos # (Auto) 0.1 (0.0-0.4) X10*3/uL Baso # (Auto) 0.0 (0.0-0.2) X10*3/uL Abs Immat Gran (auto) 0.05 H (0.00-0.03) X10*3/uL Absolute Neuts (auto) 5.4 (2.0-8.3) x10*3/uL Absolute Nucleated RBC 0.000 (0.0-0.012) X10*3/uL Nucleated RBC % (auto) 0.0 (0.0-0.2) /100WBC Sodium 145 (135-145) mmol/L Potassium 4.8 (3.3-5.1) mmol/L Chloride 107 (96-108) mmol/L Carbon Dioxide 24 (22-29) mmol/L Anion Gap 19 (12-20) BUN 69 H (9-16) mg/dL Creatinine 1.98 H (0.5-1.4) mg/dL Estim Creat Clear Calc 28.7 Estimated GFR 24 Random Glucose 184 H (60-115) mg/dL Calcium 8.1 L D (8.4-10.2) mg/dL Total Bilirubin 0.2 (0.0-1.0) mg/dL AST 17 (5-31) U/L ALT 8 (0-31) U/L Alkaline Phosphatase 112 (39-117) U/L Total Protein 6.6 (6.5-8.0) g/dL Albumin 3.2 L (3.5-5.0) g/dL Urine Color Yellow Urine Appearance Turbid Urine pH 5.5 (5.0-9.0) Ur Specific [place] 1.015 (1.005-1.025) Urine Protein 300 (3+) H (Neg-Trace) mg/dL Urine Glucose (UA) 500 H (Negative) mg/dL Urine Ketones Negative (Negative) mg/dL Urine Blood Large (3+) H (Negative) Urine Nitrite Negative (Negative) Ur Leukocyte Esterase Large (3+) H (Negative) Urine RBC >20 H (0-2) /HPF Urine WBC >50 H (0-5) /HPF Ur Squamous Epith Cells >20 (0-2) /HPF Urine Bacteria 2+ (None Seen) Hyaline Casts 3-5 (0-2) /LPF Urine Yeast Present Discharge Plan Discharge Clinical Impression: Acute UTI, Wheezing Patient Disposition: Home, Self-Care Instructions: Urinary Tract Infection in Women (ED), Wheezing (ED) Additional Instructions: Please follow-up with your primary care physician tomorrow. If you have any worsening or new symptoms, please return to the emergency room or call 911 Prescriptions: New cefuroxime axetil 250 mg tablet 250 mg PO BID Qty: 14 0RF No Action (DME) insulin syringe-needle U-100 [BD Insulin Syringe Ultra-Fine] 0.5 mL 31 gauge x 5/16 syringe See Rx Instructions .Route Qty: 100 3RF Rx Instructions: Use 1 needle once a day atorvastatin 40 mg tablet 40 mg PO BEDTIME 90 Days Qty: 90 3RF Jardiance 10 mg tablet 10 mg PO DAILY Qty: 90 1RF (DME) Accu-Chek Odilia Plus test strp Strip See Rx Instructions .Route Qty: 100 1RF Rx Instructions: Use 1 test strip once a day (DME) Accu-Chek Guide test strips Strip See Rx Instructions .Route Qty: 100 3RF Rx Instructions: Use 1 test strip once a day (DME) lancets [Accu-Chek Softclix Lancets] Misc See Rx Instructions .Route Qty: 100 3RF Rx Instructions: Use 1 lancet once a day insulin glargine [Basaglar KwikPen U-100 Insulin] 100 unit/mL (3 mL) insulin pen 25 unit subcut BEDTIME 30 Days Qty: 7.5 0RF (DME) Lift chair See Rx Instructions .Route .MEDSUPPLY Qty: 1 0RF Rx Instructions: As directed (DME) pen needle, diabetic [1st Tier Unifine Pentips] 31 gauge x 5/16 needle See Rx Instructions .Route Qty: 100 4RF Rx Instructions: Use 1 pen needle once a day gemfibrozil 600 mg tablet 600 mg PO BID Qty: 180 1RF albuterol sulfate [Ventolin HFA] 90 mcg/actuation HFA aerosol inhaler 2 puff inhalation Q6H PRN (Reason: shortness of breath or wheezing) 30 Days Qty: 8.5 0RF levothyroxine 200 mcg tablet 200 mcg PO DAILY@0600 90 Days Qty: 90 0RF sodium bicarbonate 650 mg Tablet 650 mg PO DAILY Qty: 90 0RF guaifenesin [Mucinex] 600 mg Tablet Extended Release 12hr 600 mg PO BID Qty: 20 0RF Lokelma 10 gram Powder In Packet 10 g PO DAILY Qty: 90 0RF sertraline 50 mg Tablet 50 mg PO DAILY Qty: 90 0RF azithromycin 500 mg tablet 500 mg PO DAILY 5 Days Qty: 5 0RF cefuroxime axetil 500 mg tablet 500 mg PO BID Qty: 10 0RF furosemide 40 mg tablet 40 mg PO DAILY Qty: 90 0RF prednisone 10 mg tablet See Taper PO DIRECTED Qty: 30 0RF Taper: Prednisone 40 mg daily for 3 Days and 0 Hour 30 mg daily for 3 Days and 0 Hour 20 mg daily for 3 Days and 0 Hour 10 mg daily for 3 Days and 0 Hour Rx Instructions: see taper instructions Print Language: [place]
[2025-02-23 01:25] LABS: Appearance Urine Turbid; Color Urine Yellow; Glucose Urine UA 500 mg/dL (Negative); Leukocyte Esterase Urine Large (3+) (Negative); Nitrite Urine Negative (Negative); PH 5.5 (5.0-9.0); Specific Gravity - Urine 1.015 (1.005-1.025); UMIC TRIGGER UACC YES; Urine Blood Large (3+) (Negative); Urine Ketones Negative (Negative); Urine Protein 300 (3+) mg/dL (Neg-Trace)
--- NOTE | 2025-02-23 01:27 | PC.NURSE ---
t/w assisted primary nurse and put in [place] 20F per orders, urine sent off [place] to lab.
[2025-02-23 01:33] LABS: Bacteria Urine 2+ (None Seen); RBC Urine >20 /HPF (0-2); Squamous Epithelial Cell Urine >20 /HPF (0-2); UACC Culture Trigger YES; WBC Urine >50 /HPF (0-5)
[2025-02-23 01:38] VITALS: BP 143/49; PULSE 75; RESP 24; TEMP 36.7; O2SAT 95
[2025-02-23] MEDS: cefuroxime axetiL 250 MG TABLET PO (02:05)
[2025-02-23 02:06] VITALS: BP 147/48; PULSE 85; RESP 22; TEMP 36.7; O2SAT 97
== END 2025-02-23 02:57 | disposition home or self-care (01) ==
PROVIDERS: Emergency Provider Emergency Medicine
DX: N39.0 Urinary tract infection, site not specified (principal); R06.2 Wheezing; E11.9 Type 2 diabetes mellitus without complications; Z79.899 Other long term (current) drug therapy; Z87.891 Personal history of nicotine dependence; Z79.4 Long term (current) use of insulin
CPT/HCPCS: 36415; 80053; 81001; 85025; 87086; 94640; 96361; 96374; 96375; 99284

== ENCOUNTER 2025-02-28 02:28 | Emergency (ER) | payer MEDICARE, MEDICAID, SELFPAY ==
--- NOTE | ~2025-02-28 | XR_ITS ---
CLINICAL HISTORY: dyspnea 1 view chest x-ray Comparison: CR/SR - XR CHEST 1V - 01/11/25 10:34 EDT Findings: Lungs are well inflated. Cardiac silhouette is mildly enlarged with left ventricular prominence. Improved, but not completely resolved, areas of consolidation in the left lung base in the right suprahilar region. Central interstitial markings remain prominent. Likely small left pleural effusion. IMPRESSION: Improved, but not completely resolved, areas of consolidation within the lungs suggesting improving pneumonia. Mild findings of volume overload. This document has been electronically signed by: Jesse Bueno MD on 02/28/2025 07:10:26
[2025-02-28 02:40] VITALS: BP 109/70; BP 180/80; PULSE 84; RESP 19; TEMP 36.6; O2SAT 98; BMI 37.7
--- OUTSIDE RECORDS SUMMARY | 2025-02-28 03:25 | XMS_ITS | Encounter Summary ---
Author Organization [facility] Address [address] [place] [address] Care Team Providers Care Ground Nuclear Weapons Assembly Officer Name Role Phone Hal Cole MD Primary Care Provider [phone] Encounter Details Date Type Department Care Team (Late st Contact Info) Description 08/27/2024 Lab Requisition [facility] - Main Lab [address] [facility] [place] [address] Hal Cole MD [address] [place] [address], [phone] Type 2 diabetes mellitus without complications (CMS/HCC V24, CMS/HCC V28); Chronic obstructive pulmonary disease, unspecified (CMS/HCC V24, CMS/HCC V28) Social History Tobacco Use Types Packs/Day Years [...] Travel phlebotomy fee (08/29/2024 5:30 AM EST) [facility] HOME TRAVEL PHLEBOTOMY FEE Completed 08/29/2024 10:01 AM [facility] Blood Venous blood specimen / Unknown Venipuncture / Unknown 08/29/2024 5:30 AM EST 08/29/2024 9:51 AM EST us Hal Cole MD LAB BLOOD ORDERABLES Final Resul t [facility] [address] [place] [address], * (ABNORMAL) Basic metabolic panel (08/29/2024 5:30 AM EST) [facility] Sodium 137 133 - 145 mmol/L LAB [...] 73m2 LAB CHEMISTRY METHOD 08/29/2024 10:57 AM EST [facility] Comment:Calculation based on the??Chronic [...] MD LAB BLOOD ORDERABLES Final Resul t [facility] [address] [place] [address], [place] [phone] * (ABNORMAL) Complete blood count (08/29/2024 5:30 [...] LAB HEMETOLOGY METHOD 08/29/2024 10:59 AM EST [facility] MCHC 29.7(L) 32.0 - 37.0 g/dL LAB HEMETOLOGY METHOD 08/29/2024 10:59 AM [facility] RDW 13.5 11.0 - 15.0 [...] MD LAB BLOOD ORDERABLES Final Resul t [facility] [address] [place] [address], documented in this encounter Visit Diagnoses Diagnosis Type 2 diabetes mellitus without complications (CMS/HCC V24, CMS/HCC V28) Chronic obstructive pulmonary disease, unspecified (CMS/HCC V24, CMS/HCC V28) documented in this encounter Care Teams Ground Nuclear Weapons Assembly Officer Relationship Specialty Start Date End Date Hal Cole MD [address] [place] [address], [phone] PCP - General Family Medicine 09/15/24 documented as of this encounter
--- OUTSIDE RECORDS SUMMARY | 2025-02-28 03:25 | XMS_ITS | Encounter Summary ---
Author Organization [facility] Address [address] [place] [address] Care Team Providers Care Railroad Surveyor Name Role Phone Hal Cole MD Primary Care Provider [phone] Encounter Details Date Type Department Care Team (Late st Contact Info) Description 09/21/2024 Lab Requisition [facility] - Main Lab [address] [place] [address] Hal Cole MD [address] [place] [address], [phone] Chronic kidney disease, unspecified Social History [...] LAB CHEMISTRY METHOD 09/21/2024 12:11 PM EST [facility] Potassium 4.2 3.5 - 5.5 mmol/L LAB CHEMISTRY METHOD 09/21/2024 12:11 PM EST [facility] Chloride 107 96 - 110 mmol/L LAB CHEMISTRY METHOD 09/21/2024 12:11 PM EST [facility] CO2 26 21 - 32 mmol/L LAB CHEMISTRY METHOD 09/21/2024 12:11 PM [facility] Anion Gap 10 3 - 11 LAB CHEMISTRY METHOD 09/21/2024 12:11 PM [facility] Glucose 126(H) 70 - 100 mg/dL LAB CHEMISTRY METHOD 09/21/2024 12:11 PM [facility] BUN 49(H) 5 - 25 mg/dL LAB CHEMISTRY METHOD 09/21/2024 12:11 PM [facility] Creatinine 1.58(H) 0.50 - 1.10 mg/dL LAB CHEMISTRY METHOD 09/21/2024 12:11 PM [facility] eGFR 34(L) >=60 mL/min/1. 73m2 LAB CHEMISTRY METHOD 09/21/2024 12:11 PM [facility] Comment:Calculation based on the??Chronic Kidney Disease Epidemiology Collaboration (CKD-EPI) equation refit??without adjustment for race. BUN/Creatinine Ratio 31.0 LAB CHEMISTRY METHOD 09/21/2024 12:11 PM [facility] Calcium 8.4(L) 8.5 - 10.5 mg/dL LAB CHEMISTRY METHOD 09/21/2024 12:11 PM [facility] Blood Venous blood specimen / Unknown Venipuncture / Unknown 09/21/2024 7:31 AM EST 09/21/2024 9:59 AM EST us Hal Cole MD LAB BLOOD ORDERABLES Final Resul t [facility] [address] [place] [address], documented in this encounter Visit Diagnoses Diagnosis Chronic kidney disease, unspecified documented in this encounter Care Teams Railroad Surveyor Relationship Specialty Start Date End Date Hal Cole MD [address] [place] [address], [phone] PCP - General Family Medicine 11/21/24 documented as of this encounter
--- OUTSIDE RECORDS SUMMARY | 2025-02-28 03:25 | XMS_ITS | Data Portability ---
Author Organization [facility], Main Office Address [address] [facility], [address] [place] [address] Care Team Providers Care Rn Travel Name Role Phone VALARIE JORDAN - 2ND FLOOR OTHER SHOBHA SMITH Primary Care Provider [phone] Assessment Encounter Date Assessment Date Assessment LastModified [...] By Organization Details Last Modified Time 09/06/2024 [id number] medicines to avoid with kidney disease: care instructions [email or web address] Not available 09/06/2024 14:42:44 09/08/2024 [id number] medicines to avoid with kidney disease: care instructions [email or web address] Not available 09/08/2024 13:56:49 Reason for Referral None Reported. Problems Name Problem SNOMED Code Status Onset Date Resolution Date Notes Provider Name and Address Organization Details Recorded Time Acute hypoxemic respirator y failure 657658645 Active 2023 ALLAN PRADHAN NP [address] [facility], [address], [place], [address], [facility] 4 10:51:05 Pneumonia 604000466 Active 2023 ALLAN PRADHAN NP [address] [facility], [address], [place], [address], [place] [facility] 4 10:51:21 Pleural effusion 12438964 Active 2023 ALLAN PRADHAN NP [address], [address], [place], [address], [facility] 4 10:51:43 Gastroesop hageal reflux disease without esophagiti s 298382969 Active 2023 ALLAN PRADHAN NP [address], [place], [address], [facility] 4 10:53:46 Anxiety 66942197 Active 2023 ALLAN PRADHAN NP [address], [address], [place], [address], [facility] 4 11:00:09 Chronic kidney disease stage 3 040553344 Active 2023 ALLAN PRADHAN NP [address], [address], [place], [address], [facility] 4 11:21:29 Chronic pain syndrome 845243380 Active 2023 ALLAN PRADHAN NP [address], [address], [place], [address], [facility] 4 11:21:39 Acute nontraumat ic kidney injury 7452957719640 03 Active 2023 ALLAN PRADHAN NP [address], [address], [place], [address], [facility] 4 11:23:16 Left bundle branch block 52874260 Active 2023 ALLAN PRADHAN NP [address], [address], [place], [address], [facility] 4 11:23:30 Pernicious anemia 74879557 Active 2023 ALLAN PRADHAN NP [address], [address], [place], [address], [facility] 4 11:23:46 Obstructiv e sleep apnea syndrome 24986502 Active 2023 ALLAN PRADHAN NP [address], [address], [place], [address], [facility] 4 11:47:23 Open wound 724622846 Active 2023 sacral ALLAN PRADHAN NP [address], [place], [address], [facility] 4 12:05:33 Asthenia 78247960 Active 2023 ALLAN PRADHAN NP [address], [address], [place], [address], [facility] 4 12:10:47 Diastolic heart failure 008284938 Active 2018 Hal Cole MD [address], [address], [place], [address], [facility] 9 14:45:31 Dysphagia 80391921 Active 2018 Hal Cole MD [address], [address], [place], [address], [facility] 9 14:45:39 Chronic obstructiv e pulmonary disease 45981385 Active 2018 Hal Cole MD [address], [address], [place], [address], [facility] 9 14:45:48 Essential hypertensi on 59922240 Active 2018 Hal Cole MD [address], [address], [place], [address], [facility] 9 14:45:53 Diabetes mellitus 59092336 Active 2018 Hal Cole MD [address], [place], [address], [facility] 9 14:45:57 Hyperlipid emia 54971625 Active 2018 Hal Cole MD [address], [place], [address], [facility] 9 14:46:04 Obesity 668826441 Active 2018 Hal Cole MD [address], [place], [address], [facility] 9 14:46:12 Hypothyroi dism 16190903 Active 2018 Hal Cole MD [address] [facility] [facility] [address], [place], [address], [facility] 9 14:50:40 Problem Notes None recorded. Medical Equipment None Reported. Allergies Allergen ID Allergen Name Allergen Category Reaction Reaction Severity Criticality Documentation Date Start Date Code Code System Note Provider Name and Address Organization Details Recorded Time 92019 ibuprofen medicatio n Not available Not available Not available 08/11/2024 5640 RxNorm swell ing ALLAN PRADHAN NP [address] [facility], [facility] [address], [place], [address], [facility] 4 11:04:39 99358 codeine medicatio n Not available Not available Not available 08/11/2024 2670 RxNorm sleep y ALLAN PRADHAN NP [address] [facility], [facility] [address], [place], [address], [facility] 4 11:05:51 Medications Name Sig Start Date Stop Date [...] mm[Hg] 86 mm[Hg] ALLAN PRADHAN NP [address] [facility], [facility] [address], [place], [address], [place] [facility] 4 14:03:04 Date Recorded Heart rate Respiratory rate Body temperature Oxygen saturation Oxygen saturation in Arterial blood by Pulse oximetry Systolic blood pressure Diastolic blood pressure Provider Name and Address Organization Details Last Updated DateTime 4 74 /min 18 /min 99 [degF] 98 % 98 % 130 mm[Hg] 74 mm[Hg] ALLAN PRADHAN NP [address] [facility], [address], [place], [address], [facility] 4 13:48:17 Date Recorded Body weight Heart rate Respiratory rate Body temperature Oxygen saturation Oxygen saturation in Arterial blood by Pulse oximetry Systolic blood pressure Diastolic blood pressure Provider Name and Address Organization Details Last Updated DateTime 4 72152.1 4 g 69 /min 16 /min 98.3 [degF] 97 % 97 % 134 mm[Hg] 64 mm[Hg] Eloina Odom NP [address] [facility], [address], [place], [address], [facility] 4 09:02:44 Date Recorded Body height Body mass index (BMI) Body weight Heart rate Respiratory rate Body temperature Oxygen saturation Oxygen saturation in Arterial blood by Pulse oximetry Inhaled oxygen flow rate Systolic blood pressure Diastolic blood pressure Provider Name and Address Organization Details Last Updated DateTime 4 167.64 cm 32.9 kg/m2 92768.1 3 g 72 /min 18 /min 97.5 [degF] 97 % 97 % 2 L/min 129 mm[Hg] 76 mm[Hg] Carlee Amezcua MD [address] [facility] [address], [place], [address], [facility] 4 22:10:41 Date Recorded Body height Body weight Body mass index (BMI) Heart rate Respiratory rate Body temperature Oxygen saturation Oxygen saturation in Arterial blood by Pulse oximetry Systolic blood pressure Diastolic blood pressure Provider Name and Address Organization Details Last Updated DateTime 4 167.64 cm 25921.2 5 g 32.8 kg/m2 74 /min 16 /min 97.9 [degF] 95 % 95 % 133 mm[Hg] 72 mm[Hg] Eloina Odom NP [address] [facility] [address], [place], [address], [facility] 4 08:16:49 Social History Question Answer Notes LastModified by Organizat ion Details LastModified Time Tobacco Smoking Status Former Smoker Not Available [facility] 08/21/2020 03:13:21 Do You Have An Advance Directive? No Full Code [id number] Information not available 08/21/2020 What Is Your Level Of Alcohol Consumption? None Information not available 08/11/2024 What Is Your Code Status? 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 08/11/2024 [email or web address] Information not available 08/11/2024 Do You Have An Out Of Hospital DNR? Yes [email or web address] Information not available 09/01/2024 How Much Tobacco Do You Smoke? 1.5 PPD [id number] Information not available 08/21/2020 Do You Use Any Illicit Or Recreational Drugs? No Information not available 08/11/2024 Has Tobacco Cessation Counseling Been Provided? No [email or web address] Information not available 08/11/2024 How Many Years Have You Smoked Tobacco? 25 [id number] Information not available 08/21/2020 Do You Or Have You Ever Used Any Other Forms Of Tobacco Or Nicotine? No Information not available 08/11/2024 Sex: Unknown Functional Status None recorded. Mental Status None recorded. Family History Relationship Description Onset Age of this Age Resolved Age Notes LastModified by Organization Details LastModified Time Father Disorder of cardiovascul ar system [email or web address] Not available 2023 11:24:15 Medical History No medical history recorded. Gynecological HistoryNo gynecological history recorded. Obstetrics History GPAL:G 0 P 0 0 0 0 Immunizations Vaccine Type Date Status Note Provider Nam e and Address Organization Details Recorded Time influenza, unspecified formulation 11/10/2021 completed Jessica gonsalez MA [facility] 08/10/2024 14:21:03 Past Encounters Encounter ID Performer Location Encounter Start Date Encounter Closed Date Diagnosis/Indication Diagnosis SNOMED-CT Code Diagnosis ICD10 Code Diagnosis Note [id number] MD ARMEN Urrutia [address] [place] [address] [place] [address] 06/01/2019 14:38:26 06/08/2019 15:41:33 Acute hypoxemic respiratory failure 294649958 J96.01 see HPIseconda ry to aspiration dx with dysphagiaC HF exacerbati on with recent dx of diastolic CHFmonitor respirator y functionto be scheduled for sleep study due to concern for OSAtitrate O2 in patient with baseline COPD Diastolic heart failure 350118591 I50.33 see HPIappears chronicall y ill due to multiple co-morbid conditions recent dx with diuresis of 18 liters at prior hospitaliz ationnow onlasix 40 mg bidmonitor weights and fluid statusmoni tor respirator y and renal functionti trate medication s prn Dysphagia 79588968 R13.1 2 see HPIeval by speechnow on ground mech soft dietrepeat speech eval prn Chronic ob structive pulmonary disease 22006899 J41.1 hx tobacco quit > 30 yrs priormonit or respirator y functionto be scheduled for sleep study with concern for OSApulmona ry consult prn Essential hypertension 04312959 I10 norvasc 5 mg qdlasix 40 mg bidmonitor bp and renal function Asthenia 52439564 R53.1 PT OT eval and treatmonit or fall risk Diabetes mellitus 360876 09 E11.9 hx of DMonmetfor min 1000 mg bid with 500 mg q noonglipiz nneka 5 mg bidinsulin SSmonitor blood glucose Hypothyroidism 69238225 E03.8 synthroid 200 mcg qdmonitor tsh prn Hyperlipidemia 04911111 E78.49 gemfibrozi l 600 mg bidlipitor 40 mg qd continue Obesity 039559548 E66.01 dietary eval at baseline [id number] [facility] [address] [place] [address] [place] [address] 06/06/2019 11:35:48 06/08/2019 16:08:53 Hypoxia 715877561 R09.02 send to ER for this d/t sat 50% on O2 with chest pain. Acute kidney injury 1466 9001 N17.9 likely d/t overdiures is. had been on lasix 40 bid, sending to ER, may need this held. Acute hypo xemic respiratory failure 537129523 J96.01 see HPIseconda ry to aspiration dx with dysphagiaC HF exacerbati on with recent dx of diastolic CHFmonitor respirator y functionto be scheduled for sleep study due to concern for OSAtitrate O2 in patient with baseline COPD Diastolic heart failure 128373429 I50.33 see HPIappears chronicall y ill due to multiple co-morbid conditions recent dx with diuresis of 18 liters at prior hospitaliz atkayleighhere was on:lasix 40 mg bid*Now appearing dry- may need to hold diuretics at hospital. Dysphagia 43154499 R13.1 2 see HPIeval by speechnow on ground mech soft dietrepeat speech eval prn Chronic ob structive pulmonary disease 68347043 J41.1 hx tobacco quit > 30 yrs priorsendi ng to ER for hypoxia, chest pain, ARF [id number] ALLAN PRADHAN NP [facility] [address] 08/11/2024 10:50:24 08/15/2024 09:32:52 Acute hypoxemic respiratory failure 226531288 J96.01 [place] related to COPD and acute on chronic CHF.Respon ded well to interventi ons in hosp.Chuck nue O2 @ 2L - chronic use.Contin ue inhalers for COPD, bumex for CHF.Monito r closely Chronic ob structive pulmonary disease 46887311 J41.1 Treated for exac. in hosp. with nebs and steroids with adamaris t.Continue O2 - uses 2L chronicall y at home.Chuck nue:duoneb prnalbuter ol MDI prn - at bedside for self administra tion.Monit or sats, resp. status for change. Pneumonia 898259969 J18. 9 Treated with ceftriaxon e and azithromyc in x 7 days with adamaris t, transition ed to Augmentin 875 mg bid x 3d and Doxy 100 mg bid x 3d upon d/c to complete a 10 day course of tx.Monitor resp. sx. Diastolic heart failure 067321425 I50.33 Treated with IV lasix in hosp., changed back to bumex 2 mg qd with adamaris t in condition. Continue bumexHeart healthy/lo w salt dietDaily VS and weightsLab s q mond. x 3Follow for decompensa tion Pleural effusion 0911276 8 J90 s/p thoracente sismonitor Diabetes mellitus 588361 09 E11.9 A1C 7.6%Contin ue home meds:basag lar 15 units qdjardianc e 10 mg qdlispro SSICarb control dietAdjust meds prn Essential hypertension 12906561 I10 Continue home meds:norva sc 10 mg qdbumex 2 mg qdMoniotor VS, labs, adjust meds prn Hyperlipidemia 32194178 E78.49 continue atorvastat in 40 mg qdgemfibro zil stopped due to interventi on with lipitor LF Ts WNRLipid panel if stays nursing home Hypothyroidism 67400900 E03.8 Continue levothyrox ine 200 mcg qdTSH, FT4 prn Gastroesop hageal reflux disease without esophagitis 551234008 K21.9 ??started omeprazole 20 mg qd while in the hospitalmo nitor GI sx.conside r stopping in 6 wks. if no sx. Anxiety 01629167 F41.9 Continue home meds:cymba lta 20 mg qdativan 0.5 mg tid prn (x14d, then re-eval)Ps ych referral PRNMonitor mood, behaviors Chronic ki dney disease stage 3 941300475 N18.30 Monitor labs - BMP q mond. x 3Maintain hydrationA void nephrotoxi cs Chronic pain syndrome 37 9592394 G89.4 Continue:c ymbalta 20 mg qdoxycodon e 5 mg q8 hr prnPt. states chronic low back pain, knee pain, and sacral pain due to a fractured tailbone at 20 yrs. of age) Obstructiv e sleep apnea syndrome 04806577 G47.33 Per pt.Does not use CPAP, instead wears O2 2L RTC at home. Asthenia 57424909 R53.1 Deconditio rosana due to hospitaliz ation and chronic medical conditions .PT OT eval and tx.Goal is to return home. Open wound 310040350 T14 .8XXA Open wound sacral area - [...] with minerals dailyDieta ry supplement s per slip mixer Concern of potential breakdown on heels as does not allow pillow under legs to float heels due to chronic sacral pain from old fracture. Can try heel boots if cyndi. to help reduce pressure as well as skin prep qd.Monitor closely. [id number] Hal Cole MD [facility] [address] [address] 08/15/2024 12:44:18 08/17/2024 11:09:33 Asthenia 66653922 R53.1 PT OT Eval and treatmonit or fall risk and need for increased support in community Acute hypo xemic respiratory failure 614812949 J96.01 see HPI due to CHF, COPD, pneumoniao n O2 at baselinemo nitor respirator y status and need to repeat imaging Chronic ob structive pulmonary disease 49473232 J44.1 On O2 at baselineco mpleted steroid coursecont inue outpatient medsmonito r respirator y status Pneumonia 384061159 J15. 8 see HPI now to complete doxy and augmentinm onitor need to reimage Diastolic heart failure 778942850 I50.33 required IV lasix in hospital now onbumex 2 mg qdmonitor respirator y and fluid statusnote d ARF on CRF Diabetes mellitus 346064 09 E11.9 continue out patient medsmonito r need to titrate Hyperlipidemia 23022694 E78.49 medication s adjusted in hospital now onlipitor 40 mg qd Hypothyroidism 72738116 E03.8 synthroid 200 mcg qdtsh prn Gastroesop hageal reflux disease without esophagitis 468536728 K21.9 recently started on PPImonitor need to continuetr ial off in 2-4 weeks Acute kidney injury 1466 9001 N17.8 ARF on CRFmonitor renal functionav oid nephrotoxi c meds as ablenephro consult prn [id number] ALLAN PRADHAN NP [facility] [address] [address] 08/16/2024 11:32:50 08/24/2024 10:16:43 Asthenia 15297516 R53.1 Deconditio rosana due to hospitaliz ation and chronic medical conditions .Continue PT OT eval and tx.Goal is to return home. Acute hypo xemic respiratory failure 119251735 J96.01 [place] related to COPD and acute on chronic CHF.Respon ded well to interventi ons in hosp.Chuck nue O2 @ 2L - chronic use.Contin ue inhalers for COPD, bumex for CHF.Monito r closely Chronic ob structive pulmonary disease 00153712 J41.1 Treated for exac. in hosp. with nebs and steroids with improvemen t.Continue O2 - uses 2L chronicall y at home.Chuck nue:duoneb prnalbuter ol MDI prn - at bedside for self administra tion.Monit or sats, resp. status for change. Pneumonia 633865316 J18. 9 Treated with ceftriaxon e and azithromyc in x 7 days with improvemen t, transition ed to Augmentin 875 mg bid x 3d and Doxy 100 mg bid x 3d upon d/c to complete a 10 day course of tx.Monitor resp. sx. Diastolic heart failure 003576855 I50.33 Treated with IV lasix in hosp., changed back to bumex 2 mg qd with improvemen t in condition. Continue bumexHeart healthy/lo w salt dietDaily VS and weights (reminded nursing of daily weights and record)Lab s q mond. x 3Follow for decompensa tion Pleural effusion 4935395 8 J90 s/p thoracente sismonitor Chronic ki dney disease stage 3 873730889 N18.30 Monitor labs - BMP q mond. x 3Maintain hydrationA void nephrotoxi cs Diabetes mellitus 341815 09 E11.9 A1C 7.6%BS mostly 100sContin ue home meds:basag lar 15 units qdjardianc e 10 mg qdlispro SSICarb control dietAdjust meds prn Essential hypertension 01050028 I10 Continue home meds:norva sc 10 mg qdbumex 2 mg qdMoniotor VS, labs, adjust meds prn Hyperlipidemia 72187694 E78.49 continue atorvastat in 40 mg qdgemfibro zil stopped due to interventi on with lipitor LF Ts WNRLipid panel if stays oil heaterman Hypothyroidism 90196884 E03.8 Continue levothyrox ine 200 mcg qdTSH, FT4 prn Gastroesop hageal reflux disease without esophagitis 728626484 K21.9 ??started omeprazole 20 mg qd while in the hospitalmo nitor GI sx.conside r stopping in 6 wks. if no sx. Anxiety 91956708 F41.9 Continue home meds:cymba lta 20 mg qdativan 0.5 mg tid prn (x14d, then re-eval)Ps [facility] referral PRNMonitor mood, behaviors Chronic pain syndrome 37 0565715 G89.4 Continue:c ymbalta 20 mg qdoxycodon e 5 mg q8 hr prnPt. states chronic low back pain, knee pain, and sacral pain due to a fractured tailbone at 20 yrs. of age) Obstructiv e sleep apnea syndrome 94187807 G47.33 Per pt.Does not use CPAP, instead wears O2 2L RTC at home. Open wound 718020421 T14 .8XXA Open wound sacral area - developed in hosp.Suspe ct started first as MASD due to chronic incontinen ce, now with opening in skin.Plan -Continue: Triad cream q shift and prnPressur e relief as much as possibleRe ferred to Wound PA-CMVI with minerals daily addedDieta ry supplement s per slip mixer - currently on glucerna bid. Concern of potential breakdown on heels as does not allow pillow under legs to float heels due to chronic sacral pain from old fracture. Can try heel boots if cyndi. to help reduce pressure as well as skin prep qd.Monitor closely. [id number] ALLAN PRADHAN NP [facility] [address] [address] 08/23/2024 10:50:36 08/24/2024 10:28:22 Asthenia 99405045 R53.1 Deconditio rosana due to hospitaliz ation and chronic medical conditions .PT OT eval and tx., making gains.Goal is to return home. Acute hypo xemic respiratory failure 819909747 J96.01 [place] related to COPD and acute on chronic CHF.Respon ded well to interventi ons in hosp., currently stable.Con tinue O2 @ 2L - chronic use.Contin ue inhalers for COPD, bumex for CHF.Monito r closely Chronic ob structive pulmonary disease 22777200 J41.1 Treated for exac. in hosp. with nebs and steroids with improvemen t.Continue O2 - uses 2L chronicall y at home.Chuck nue:duoneb prnalbuter ol MDI prn - at bedside for self administra tion.Monit or sats, resp. status for change. Pneumonia 988549627 J18. 9 Treated with ceftriaxon e and azithromyc in x 7 days with improvemen t, transition ed to Augmentin 875 mg bid x 3d and Doxy 100 mg bid x 3d upon d/c to complete a 10 day course of tx.Resolvi ng, continue to monitor resp. sx. Diastolic heart failure 347127714 I50.33 Treated with IV lasix in hosp., changed back to bumex 2 mg qd with improvemen t in condition. Continue bumexHeart healthy/lo w salt dietDaily VS and weights (reminded nursing again of daily weights and record)Lab s q mond. x 3Follow for decompensa tion Pleural effusion 0720177 8 J90 s/p thoracente sismonitor Chronic ki dney disease stage 3 421379828 N18.30 Monitor labs - BMP q mond. x 2 more timesMaint ain hydrationA void nephrotoxi cs Diabetes mellitus 798172 09 E11.9 A1C 7.6%BS mostly 100sContin ue home meds:basag lar 15 units qdjardianc e 10 mg qdlispro SSICarb control dietAdjust meds prn Essential hypertension 50994153 I10 Continue home meds:norva sc 10 mg qdbumex 2 mg qdMoniotor VS, labs, adjust meds prn Hyperlipidemia 68125530 E78.49 continue atorvastat in 40 mg qdgemfibro zil stopped due to interventi on with lipitor LF Ts WNRLipid panel if stays oil heaterman Hypothyroidism 33173938 E03.8 Continue levothyrox ine 200 mcg qdTSH, FT4 prn Gastroesop hageal reflux disease without esophagitis 369650471 K21.9 ??started omeprazole 20 mg qd while in the hospitalmo nitor GI sx.conside r stopping in 6 wks. if no sx. Anxiety 78432977 F41.9 Continue home meds:cymba lta 20 mg qdativan 0.5 mg tid prn (x14d, then re-eval)Ps ych referral PRNMonitor mood, behaviors Chronic pain syndrome 37 6103107 G89.4 Continue:c ymbalta 20 mg qdoxycodon e 5 mg q8 hr prnPt. states chronic low back pain, knee pain, and sacral pain due to a fractured tailbone at 20 yrs. of age) Obstructiv e sleep apnea syndrome 31833778 G47.33 Per pt.Does not use CPAP, instead wears O2 2L RTC at home. Open wound 371399439 T14 .8XXA Open wound sacral area - developed in hosp.[place] ct started first as MASD due to chronic incontinen ce, now with opening in skin.Plan -Continue: Triad cream q shift and prnPressur e relief as much as possibleRe ferred to Wound PA-CMVI with minerals daily addedDieta ry supplement s per slip mixer - currently on glucerna bid. Concern of potential breakdown on heels as does not allow pillow under legs to float heels due to chronic sacral pain from old fracture. Can try heel boots if cyndi. to help reduce pressure as well as skin prep qd.Monitor closely. Constipation 44807536 K5 9.00 discussed with CHART WRITER, last BM 3 days ago.add miralax daily, start today.enco urage OOB, fiber, fluids [id number] ALLAN PRADHAN NP [address] [address] 09/01/2024 12:36:05 09/02/2024 11:15:18 Asthenia 95390546 R53.1 Deconditio rosana due to hospitaliz ation and chronic medical conditions .PT OT eval and tx., making gains.Goal is to return home. Acute hypo xemic respiratory failure 475992207 J96.01 [place] related to COPD and acute on chronic CHF.Respon ded well to interventi ons in hosp., currently stable.Con tinue O2 @ 2L - chronic use.Contin ue inhalers for COPD, bumex for CHF.Monito r closely Chronic ob structive pulmonary disease 50360507 J41.1 Treated for exac. in hosp. with nebs and steroids with improvemen t.Continue O2 - uses 2L chronicall y at home.Chuck nue:duoneb prnalbuter ol MDI prn - at bedside for self administra tion.Monit or sats, resp. status for change. Pneumonia 635018657 J18. 9 Treated with ceftriaxon e and azithromyc in x 7 days with improvemen t, transition ed to Augmentin 875 mg bid x 3d and Doxy 100 mg bid x 3d upon d/c to complete a 10 day course of tx.Resolvi ng, continue to monitor resp. sx. Diastolic heart failure 692111228 I50.33 Treated with IV lasix in hosp., changed back to bumex 2 mg qd with improvemen t in condition. Continue bumexHeart healthy/lo w salt dietDaily VS and weights (reminded nursing AGAIN of daily weights and record)Lab s q mond. x 3Follow for decompensa tion Pleural effusion 7928404 8 J90 s/p thoracente sismonitor Chronic ki dney disease stage 3 638870995 N18.30 Monitor labs - BMP q mond. x 2 more timesMaint ain hydrationA void nephrotoxi cs Diabetes mellitus 490601 09 E11.9 A1C 7.6%BS mostly 100sContin ue home meds:basag lar 15 units qdjardianc e 10 mg qdlispro SSICarb control dietAdjust meds prn Essential hypertension 04199970 I10 Continue home meds:norva sc 10 mg qdbumex 2 mg qdMoniotor VS, labs, adjust meds prn Hyperlipidemia 14010632 E78.49 continue atorvastat in 40 mg qdgemfibro zil stopped due to interventi on with lipitor LF Ts WNRLipid panel if stays nursing home Hypothyroidism 22810998 E03.8 Continue levothyrox ine 200 mcg qdTSH, FT4 prn Gastroesop hageal reflux disease without esophagitis 724538441 K21.9 ??started omeprazole 20 mg qd while in the hospitalmo nitor GI sx.conside r stopping in 6 wks. if no sx. Anxiety 68013937 F41.9 Continue home meds:cymba lta 20 mg qdativan 0.5 mg tid prn (x14d, then re-eval)Ps ych referral PRNMonitor mood, behaviors Chronic pain syndrome 37 9114429 G89.4 Continue:c ymbalta 20 mg qdoxycodon e 5 mg q8 hr prnPt. states chronic low back pain, knee pain, and sacral pain due to a fractured tailbone at 20 yrs. of age) Obstructiv e sleep apnea syndrome 09760918 G47.33 Per pt.Does not use CPAP, instead wears O2 2L RTC at home. Open wound 212971690 T14 .8XXA Open wound sacral area - developed in hosp.[place] ct started first as MASD due to chronic incontinen ce, now with opening in skin.Plan -Continue: Triad cream q shift and prnPressur e relief as much as possibleRe ferred to Wound PA-CMVI with minerals daily addedDieta ry supplement s per slip mixer - currently on glucerna bid. Concern of potential breakdown on heels as does not allow pillow under legs to float heels due to chronic sacral pain from old fracture. Can try heel boots if cyndi. to help reduce pressure as well as skin prep qd.Monitor closely. Constipation 07758272 K5 9.00 Bowels still sluggishAl ready on miralax, now add senna-s 2 tabs daily, hold for loose stool.enco urage OOB, fiber, fluidsCont inue to monitor and adjust. [id number] ALLAN PRADHAN NP [address] [address] 09/06/2024 14:01:29 09/07/2024 10:12:43 Asthenia 04558855 R53.1 Deconditio rosana due to hospitaliz ation and chronic medical conditions .PT OT eval and tx., making gains.Goal is to return home. Acute hypo xemic respiratory failure 640705030 J96.01 [place] related to COPD and acute on chronic CHF.Respon ded well to interventi ons in hosp., currently stable.Con tinue O2 @ 2L - chronic use.Contin ue inhalers for COPD, bumex for CHF.Monito r closely Chronic ob structive pulmonary disease 68359468 J41.1 Treated for exac. in hosp. with nebs and steroids with improvemen t.Continue O2 - uses 2L chronicall y at home.Chuck nue:duoneb prnalbuter ol MDI prn - at bedside for self administra tion.Monit or sats, resp. status for change. Pneumonia 611606129 J18. 9 Treated with ceftriaxon e and azithromyc in x 7 days with improvemen t, transition ed to Augmentin 875 mg bid x 3d and Doxy 100 mg bid x 3d upon d/c to complete a 10 day course of tx.Resolvi ng, continue to monitor resp. sx. Diastolic heart failure 646658333 I50.33 Treated with IV lasix in hosp., changed back to bumex 2 mg qd with improvemen t in condition. Continue bumexHeart healthy/lo w salt dietDaily VS and weights (reminded nursing AGAIN of daily weights and record)CBC , BMP in am x 1Follow for decompensa tion Pleural effusion 0618239 8 J90 s/p thoracente sismonitor Chronic ki dney disease stage 3 068510143 N18.30 Monitor labs - BMP x 1 in amMaintain hydrationA void nephrotoxi cs Diabetes mellitus 808014 09 E11.9 A1C 7.6%BS mostly 100s - 200sContin ue home meds:basag lar 15 units qdjardianc e 10 mg qdlispro SSICarb control dietAdjust meds prn Essential hypertension 94036537 I10 Continue home meds:norva sc 10 mg qdbumex 2 mg qdMoniotor VS, labs, adjust meds prn Hyperlipidemia 96038626 E78.49 continue atorvastat in 40 mg qdgemfibro zil stopped due to interventi on with lipitor LF Ts WNRLipid panel if stays oil heaterman Hypothyroidism 15472032 E03.8 Continue levothyrox ine 200 mcg qdTSH, FT4 prn Gastroesop hageal reflux disease without esophagitis 538532107 K21.9 ??started omeprazole 20 mg qd while in the hospitalmo nitor GI sx.conside r stopping in 6 wks. if no sx. Anxiety 81888820 F41.9 Continue home meds:cymba lta 20 mg qdativan 0.5 mg tid prn (x14d, then re-eval)Ps ych referral PRNMonitor mood, behaviors Chronic pain syndrome 37 8028403 G89.4 Continue:c ymbalta 20 mg qdoxycodon e 5 mg q8 hr prnPt. states chronic low back pain, knee pain, and sacral pain due to a fractured tailbone at 20 yrs. of age) Obstructiv e sleep apnea syndrome 98358764 G47.33 Per pt.Does not use CPAP, instead wears O2 2L RTC at home. Open wound 952171620 T14 .8XXA Open wound sacral area - developed in hosp.[place] ct started first as MASD due to chronic incontinen ce, now with opening in skin.Had been referred to Wound PALeandroC in house, but has not been seen.Fortu nately the area is improving. Plan -Continue triad cream, cover with border foam dressing for comfort, change q od and prn.Pressu re relief as much as possibleMV I with minerals daily addedDieta ry supplement s per slip mixer - currently on glucerna bid. Concern of potential breakdown on heels as does not allow pillow under legs to float heels due to chronic sacral pain from old fracture. Can try heel boots if cyndi. to help reduce pressure as well as skin prep qd.Monitor closely. Constipation 70537132 K5 9.00 No BM since 08/31 if documentat ion correct.DE N bowel meds not used.Curre ntly on miralax daily.Torrey a-s 2 tabs bid ordered 09/01, currently not on MARAbdomen distended. Plan -Fleets nowMag Citrate 1/2 bottle today, repeat 1/2 bottle in am if poor results.In crease miralax to bidRe-orde r senna-s 2 tabs bid, hold for loose stoolMonit or closely.en courage OOB, fiber, fluidsCont inue to monitor and adjust. [id number] ALLAN PRADHAN NP [address] [place] [address] 09/08/2024 13:47:32 09/09/2024 11:13:19 Constipation 86204938 K59.00 No BM since 08/31 if documentat ion correct.DE N bowel meds had not been utilized. Mag Citrate and fleets ordered with very good results. Now on:Miralax bidSenna-s 2 tabs bid Plan -Continue current laxativesE ncourage OOB, fiber, fluidsCont inue to monitor closely and adjust PRN Asthenia 69543522 R53.1 Deconditio rosana due to hospitaliz ation and chronic medical conditions .PT OT eval and tx., making gains.Goal is to return home. Open wound 650847524 T14 .8XXA Open wound sacral area - developed in hosp.[place] ct started first as MASD due to chronic incontinen ce, now with opening in skin.Had been referred to Wound PA-C in house, but has not been seen.Surinderu vipul the area is improving. Plan -Continue triad cream, cover with border foam dressing for comfort, change q od and prn.Pressu re relief as much as possibleMV I with minerals daily addedDieta ry supplement s per slip mixer - currently on glucerna bid. Concern of potential breakdown on heels as does not allow pillow under legs to float heels due to chronic sacral pain from old fracture. Can try heel boots if cyndi. to help reduce pressure as well as skin prep qd.Monitor closely. Acute hypo xemic respiratory failure 573017395 J96.01 [place] related to COPD and acute on chronic CHF.Respon ded well to interventi ons in hosp., currently stable.Con tinue O2 @ 2L - chronic use.Contin ue inhalers for COPD, bumex for CHF.Monito r closely Chronic ob structive pulmonary disease 32955211 J41.1 Treated for exac. in hosp. with nebs and steroids with adamaris t.Continue O2 - uses 2L chronicall y at home.Chuck nue:duoneb prnalbuter ol MDI prn - at bedside for self administra tion.Monit or sats, resp. status for change. Pneumonia 815237687 J18. 9 Treated with ceftriaxon e and azithromyc in x 7 days with improvemen t, transition ed to Augmentin 875 mg bid x 3d and Doxy 100 mg bid x 3d upon d/c to complete a 10 day course of tx.Resolvi ng, continue to monitor resp. sx. Diastolic heart failure 615520262 I50.33 Treated with IV lasix in hosp., changed back to bumex 2 mg qd with improvemen t in condition. Continue bumexHeart healthy/lo w salt dietDaily VS and weights (reminded nursing AGAIN of daily weights and record)CBC , BMP in am x 1Follow for decompensa tion Pleural effusion 2231081 8 J90 s/p thoracente sismonitor Chronic ki dney disease stage 3 751724048 N18.30 Monitor labs - BMP x 1 in amMaintain hydrationA void nephrotoxi cs Diabetes mellitus 255154 09 E11.9 A1C 7.6%BS mostly 100s - 200sContin ue home meds:basag lar 15 units qdjardianc e 10 mg qdlispro SSICarb control dietAdjust meds prn Essential hypertension 86833724 I10 Continue home meds:norva sc 10 mg qdbumex 2 mg qdMoniotor VS, labs, adjust meds prn Hyperlipidemia 54682784 E78.49 continue atorvastat in 40 mg qdgemfibro zil stopped due to interventi on with lipitor LF Ts WNRLipid panel if stays nursing home Hypothyroidism 74808976 E03.8 Continue levothyrox ine 200 mcg qdTSH, FT4 prn Gastroesop hageal reflux disease without esophagitis 172877769 K21.9 ??started omeprazole 20 mg qd while in the hospitalmo nitor GI sx.conside r stopping in 6 wks. if no sx. Anxiety 65396108 F41.9 Continue home meds:cymba lta 20 mg qdativan 0.5 mg tid prn (x14d, then re-eval)Ps ych referral PRNMonitor mood, behaviors Chronic pain syndrome 37 6511911 G89.4 Continue:c ymbalta 20 mg qdoxycodon e 5 mg q8 hr prnPt. states chronic low back pain, knee pain, and sacral pain due to a fractured tailbone at 20 yrs. of age) Obstructiv e sleep apnea syndrome 44485150 G47.33 Per pt.Does not use CPAP, instead wears O2 2L RTC at home. [id number] Elo[facility] Odom [facility] [address] 09/14/2024 09:01:39 09/15/2024 09:07:05 Constipation 59541024 K59.00 resolvedMa g Citrate and fleets ordered with very good results.Miralax daily09/14 change Senna-s 2 tabs from bid to dailyEncou rage OOB, fiber, fluidsCont inue to monitor closely and adjust PRN Asthenia 29469631 R53.1 Deconditio rosana due to hospitaliz ation and chronic medical conditions .PT OT eval and tx., making gains.Goal is to return home. Open wound 244806652 T14 .8XXA Open wound sacral area - [...] with minerals dailyDieta ry supplement s per slip mixer - currently on glucerna bid. Concern of potential breakdown on heels as does not allow pillow under legs to float heels due to chronic sacral pain from old fracture. Can try heel boots if cyndi. to help reduce pressure as well as skin prep qd.Monitor closely. Acute hypo xemic respiratory failure 954404808 J96.01 [place] related to COPD and acute on chronic CHF.Respon ded well to interventi ons in hosp., currently stable.Con tinue O2 @ 2L - chronic use.Contin ue inhalers for COPD, bumex for CHF.Monito r closely Chronic ob structive pulmonary disease 06288135 J41.1 Treated for exac. in hosp. with nebs and steroids with adamaris t.Continue O2 - uses 2L chronicall y at home.Chuck nue:duoneb prnalbuter ol MDI prn - at bedside for self administra tion.Monit or sats, resp. status for change. Pneumonia 959550717 J18. 9 resolvedTr eated with ceftriaxon e and azithromyc in x 7 days with improvemen t, transition ed to Augmentin 875 mg bid x 3d and Doxy 100 mg bid x 3d upon d/c to complete a 10 day course of tx.Resolvi ng, continue to monitor resp. sx.monitor for need to repeat cxr if resp symptoms persist/re turn Diastolic heart failure 675647785 I50.33 Treated with IV lasix in hosp.,harding ged back to bumex 2 mg qd with improvemen t in condition. Heart healthy/lo w salt dietDaily VS and weightspt currently 218, will need another weight(8 lb increase since admit)nsg awareFollo w for decompensa tionmonito rbmp and cbc maggi 09/15 Pleural effusion 4143734 8 J90 stable without increased work of breathings /p thoracente sis from hospmonito r Chronic ki dney disease stage 3 135519472 N18.30 bmp and cbc as above, monitor need to continueMa intain hydrationA void nephrotoxi cs Diabetes mellitus 498198 09 E11.9 A1C 7.6%BS mostly 100s - 200sContin ue :basaglar 15 units qdjardianc e 10 mg qdlispro SSICarb control dietAdjust meds prn Essential hypertension 34489811 I10 Continue:n orvasc 10 mg qdbumex 2 mg qdMoniotor VS, labs, adjust meds prn Hyperlipidemia 38119521 E78.49 continueat orvastatin 40 mg qdgemfibro zil stopped due to interventi on with lipitor LF Ts WNRLipid panel if stays nursing home Hypothyroidism 68179505 E03.8 Continuele vothyroxin e 200 mcg qdTSH, FT4 prn Gastroesop hageal reflux disease without esophagitis 840843025 K21.9 contomepra zole 20 mg qd (? started while in the hospital)m onitor GI sx.conside r stopping in 6 wks. if no sx. Anxiety 29346103 F41.9 Continue :cymbalta 20 mg qdativan 0.5 mg tid prn (x14d, then re-eval)ev al on 121Psych referral PRNMonitor mood, behaviors Chronic pain syndrome 37 0113259 G89.4 Continue:c ymbalta 20 mg qdoxycodon e 5 mg q8 hr prnPt. states chronic low back pain, knee pain, and sacral pain due to a fractured tailbone at 20 yrs. of age) Obstructiv e sleep apnea syndrome 34994393 G47.33 Per pt.Does not use CPAP, instead wears O2 2L RTC at home. [id number] Carlee Amezcua MD [address] [address] 09/27/2024 20:05:35 09/28/2024 10:42:39 Diastolic heart failure 128945293 I50.33 Appears euvolemic. Last wt on 09/24 was down 5# from previous wt.Daily wts have been ordered 4 times and not being done.Wts ordered for M/W/FConti nue Bumex 2 mg qd.Monitor resp. status, fluid status, wts and labs. Asthenia 77339994 R53.1 Improved back to baseline per pt.Unclear if rehab agrees.Molina villareal have SS consult with rehab and pt tomorrow to see if ready for d/c. Open wound 285203673 T14 .8XXA Resolved.C ontinue good skin care to prevent reopening. Acute hypo xemic respiratory failure 625066082 J96.01 Resolved.A s above. Chronic ob structive pulmonary disease 58180958 J41.1 Back to baseline per pt.Continu e atrovent 2 puffs q 6 hrs prn.Contin ue supplement al O2 titrated to sats >90%Monito r resp status. Pleural effusion 2572477 8 J90 Thought to be due to PNA and CHF.Txed with abxs and thoracente sis.No f/u needed unless increased sxs.Monito r resp status Chronic ki dney disease stage 3 374035206 N18.32 Back to baseline.C ontinue to avoid nephrotoxi c meds as able.Monit or labs.Renal consult prn. Diabetes mellitus 152140 09 E11.9 Sugars in adequate control.Co ntinue basaglar 15 units qd, jardiance 10 mg qd and SSIMonitor fingerstic ks TID and HgA1C q 3 months. Essential hypertension 33102366 I10 In good control since here.Chuck nue amlodipine 10 mg qd and bumex 2 mg qdMonitor BP and labs. Hyperlipidemia 06561486 E78.49 Continue atorvastat in 40 mg qdMonitor labs as outpt Hypothyroidism 94083018 E03.8 Continue levothyrox ine 200 mcg qdI can't find a TSH in [facility] or [facility] systems.Wi ll order for AM Gastroesop hageal reflux disease without esophagitis 253264224 K21.9 No current sxs.Contin ue omeprazole 20 mg qdMonitor GI sx. Pneumonia 621902859 J18. 9 Resolved Anxiety 45075624 F41.1 Mood good tonight.Co ntinue Cymbalta 20 mg qd and lorazepam 0.5 mg TID prn.Monito r mood.Psych following. Chronic pain syndrome 37 1975993 G89.4 Continue meds as above and oxycodone 5 mg q 8 hrs prn and APAP 650 mg q 4 hrs prn.Monito r sxs. Obstructiv e sleep apnea syndrome 36018364 G47.33 Not on CPAP.F/U as outpt. [id number] Eloina Odom NP [facility] [address] [address] 09/30/2024 08:15:34 10/03/2024 13:20:59 Diastolic heart failure 843566215 I50.33 Appears euvolemic. weight 203 on 09/24 last, down approx 5 lbs hereweight daily at homeContin ue Bumex 2 mg qd.Monitor resp. status, fluid status, at home with services and pcp outpt Asthenia 26926002 R53.1 Improved back to baseline per pt.Unclear if rehab agrees but pt insistent on going home.Pt able to walk approx 75 feet with walker and at baseline prior to hospitaliz ationmonit or with pcp outpt Chronic ob structive pulmonary disease 70167798 J41.1 Back to baseline per pt.Continu e atrovent 2 puffs q 6 hrs prn.Contin ue supplement al O2 2at liters baseline and titrated to sats >90%Monito r resp status outpt with pcp and services Pleural effusion 6725915 8 J90 Thought to be due to PNA and CHF.Txed with abxs and thoracente sis.No f/u needed unless increased sxs.Monito r resp status outpt with pcp Acute hypo xemic respiratory failure 584867699 J96.01 Resolved.A s above. Chronic ki dney disease stage 3 195645872 N18.32 Back to baseline. cr 1.5-1.9Con tinue to avoid nephrotoxi c meds as able.Monit or labs outpt with pcpRenal consult prn outpt Diabetes mellitus 427213 09 E11.9 Sugars in adequate control.mo stly 100-200sCo ntinue basaglar 15 units qd, jardiance 10 mg qd and SSIMonitor fingerstic ks TID and HgA1C q 3 months with pcp outpt Essential hypertension 16797178 I10 In good control since here.Chuck nue amlodipine 10 mg qd and bumex 2 mg qdMonitor BP and labs outpt with pcp prn Hyperlipidemia 53181129 E78.49 Continue atorvastat in 40 mg qdMonitor outpt with pcp Open wound 697341130 T14 .8XXA Resolved.C ontinue good skin care to prevent reopening. Hypothyroidism 74456423 E03.8 Continue levothyrox ine 200 mcg qdmonitor oupt with pcp Gastroesop hageal reflux disease without esophagitis 335628261 K21.9 No current sxs.Contin ue omeprazole 20 mg qdMonitor GI sx. outpt with pcp Pneumonia 166130828 J18. 9 Resolved Anxiety 88879070 F41.1 Mood good tonight.Co ntinue Cymbalta 20 mg qd and lorazepam 0.5 mg TID prn.Monito r mood outpt with pcp Chronic pain syndrome 37 4874350 G89.4 Continue meds as above and oxycodone 5 mg q 8 hrs prn and APAP 650 mg q 4 hrs prn.Monito r sxs. outpt with pcp Obstructiv e sleep apnea syndrome 74942039 G47.33 Not on CPAP.F/U as outpt Health Concerns Section Related Observation LastModified by Organization Detai ls LastModified Time None Recorded Concern Status LastModified by Organization Details LastModified Time None Recorded Advance Directives Directive N: Full Code Payers Encounter Date Sequence Insurance Name Policy Number Policy Tidwell Covered Member ID Tidwell Member ID Guarantor Name 09/06/2024 1 [place] [employer] Radhika Vaca [id number] Radhika Vaca 09/06/2024 2 [place] [facility] Radhika Vaca [id number] Radhika Vaca 09/08/2024 1 [place] [employer] Radhika Vaca [id number] Radhika Vaca 09/08/2024 2 [place] [facility] Radhika Vaca [id number] Radhika Vaca 09/14/2024 1 [place] [facility] Radhika Vaca [id number] Radhika Vaca 09/14/2024 2 [place] [facility] Radhika Vaca [id number] Radhika Vaca 09/27/2024 1 [place] [facility] Radhika Vaca [id number] Radhika Vaca 09/27/2024 2 [place] [facility] Radhika Vaca [id number] Radhika Vaca 09/30/2024 1 [place] [facility] Radhika Vaca [id number] Radhika Vaca 09/30/2024 2 [place] [facility] Radhika Vaca [id number] Radhika Patecelia Notes Date Note Type Note Provider Name and Address Organization Details Recorded Time 09/06/2024 text/html Radhika is seen today for a routine, 30 day visit. She is a 78 yo lady, admitted to [facility] 08/09/24 from [facility] for continued care and [...] O2 use.Full code ALLAN PRADHAN NP [address] [facility] [address], [address], [place], [address], [facility] 09/06/2024 15:00:32 09/08/2024 text/html Radhika is seen today for an acute visit. She is a 78 yo lady, admitted to [facility] 08/09/24 from [facility] for continued care and [...] O2 use.Full code ALLAN PRADHAN NP [address], [address], [place], [address], [facility] 09/08/2024 13:56:51 09/14/2024 text/html Radhika is seen today for an acute rounding visit. PMH: anxiety, CKD3, COPD, chronic pain, DM, CHF, dysphagia, HTN, HLD, hypothyroid, LBBB, morbid obesity, pernicious anemia, TEZ, chronic O2 use.Full code She is a 78 yo lady, admitted to [facility] 08/09/24 from [facility] for continued care and rehab after a a brief hosp. due to resp. failure (COPD, PNA, CHF) and MARJORIE on CKD (cardiorenal syndrome). Also developed a sacral wound during admission. While here at [facility]:Radhika is doing well and working with [...] mod. fall risk Eloina Odom, [facility]IO [address], [address], [place], [address], [facility] 09/14/2024 09:44:48 09/27/2024 text/html This is a [...] anemia, LBBB, and TEZ. Carlee Amezcua MD [address] [place] [address], [address], [place], [address], [facility] - [employer] 09/28/2024 02:15:34 09/30/2024 text/html Pt is a [...] here for STR. [facility]: She had a sacral wound treated [...] home with o2. She is aware social security specialist is working on a plan and she will follow with pcp outpt. Breathing non labored. Eloina Odom NP [address], [address], [place], [address], [facility] 09/30/2024 08:56:26 OBGyn Episode No OBEpisode recorded.
--- OUTSIDE RECORDS SUMMARY | 2025-02-28 03:25 | XMS_ITS | Clinical Summary ---
Author Organization [address] [facility] Address [address] [place] [address] Phone Care Team Providers Care Photo Engraver Name Role Phone Hal Cole MD Primary Care Provider [phone] Social History Tobacco Use Types Packs/Day Years [...] Vaccines (1 of 2) 1997 RSV Immunization Adult Patients (1 - 1-dose 75+ series) 2022 Cholesterol Screening (Lipid Panel) 09/27/2022 Depression Screening 09/27/2022 Falls Risk Assessment 09/27/2022 Hepatitis C Screening 09/27/2022 Medicare Annual Wellness Visit 09/27/2022 Osteoporosis Screening (Bone Density Screening) 09/27/2022 Social Influencers of Health Screening 09/27/2022 COVID-19 Vaccine ( season) 2024 Influenza Vaccine (Season Ended) 2025 Hypertension/CHF/CAD Annual BMP Blood Test 09/28/2025 09/28/2024, [...] age to complete this topic Meningococcal B Vaccine Aged Out No l onger eligible based on patient's age to complete [...] mmol/L LAB CHEMISTRY METHOD 09/28/2024 12:06 PM [facility] Potassium 4.2 3.5 - 5.5 mmol/L LAB CHEMISTRY METHOD 09/28/2024 12:06 PM [facility] Chloride 106 96 - 110 mmol/L LAB CHEMISTRY METHOD 09/28/2024 12:06 PM [facility] CO2 29 21 - 32 mmol/L LAB CHEMISTRY METHOD 09/28/2024 12:06 PM [facility] Anion Gap 6 3 - 11 LAB CHEMISTRY METHOD 09/28/2024 12:06 PM [facility] Glucose 139(H) 70 - 100 mg/dL LAB CHEMISTRY METHOD 09/28/2024 12:06 PM [facility] BUN 67(H) 5 - 25 mg/dL LAB CHEMISTRY METHOD 09/28/2024 12:06 PM [facility] Creatinine 1.83(H) 0.50 - 1.10 mg/dL LAB CHEMISTRY METHOD 09/28/2024 12:06 PM [facility] eGFR 28(L) >=60 mL/min/1. 73m2 LAB CHEMISTRY METHOD 09/28/2024 12:06 PM EST [facility] Comment:Calculation based on the??Chronic Kidney Disease Epidemiology Collaboration (CKD-EPI) equation refit??without adjustment for race. BUN/Creatinine Ratio 36.6 LAB CHEMISTRY METHOD 09/28/2024 12:06 PM EST [facility] Calcium 8.3(L) 8.5 - 10.5 mg/dL LAB CHEMISTRY METHOD 09/28/2024 12:06 PM EST [facility] Blood Venous blood specimen / Unknown Venipuncture / Unknown 09/28/2024 7:04 AM EST 09/28/2024 11:03 AM EST us Hal Cole MD LAB BLOOD ORDERABLES Final Resul t [facility] [address] [place] [address], from Last 3 Months or Most Recently Relevant to Health Maintenance Insurance [place] - [place] MEDICARE Care Teams Photo Engraver Relationship Specialty Start Date End Date Hal Cole MD [address] [place] [address], [phone] PCP - General Family Medicine 09/15/24
--- OUTSIDE RECORDS SUMMARY | 2025-02-28 03:25 | XMS_ITS | Encounter Summary ---
Author Organization [facility] Address [address] [place] [address] Care Team Providers Care Hadoop Administrator Name Role Phone Hal Cole MD Primary Care Provider [phone] Encounter Details Date Type Department Care Team (Late st Contact Info) Description 09/15/2024 Lab Requisition [facility] - Main Lab [address] [place] [address] Hal Cole MD [address] [place] [address], [phone] Chronic obstructive pulmonary disease, unspecified (CMS/HCC V24, [...] AM EST) WBC 7.4 4.8 - 10.8 /[facility] LAB HEMETOLOGY METHOD 09/15/2024 8:25 AM [facility] RBC 3.70(L) 3.80 - 4.80 M/mcL LAB HEMETOLOGY METHOD 09/15/2024 8:25 AM [facility] Hemoglobin 10.6(L) 11.5 - 16.0 g/dL LAB HEMETOLOGY METHOD 09/15/2024 8:25 AM [facility] Hematocrit 35.5 35.0 - 47.0 % LAB HEMETOLOGY METHOD 09/15/2024 8:25 AM [facility] MCV 95.4 79.0 - 98.0 FL LAB HEMETOLOGY METHOD 09/15/2024 8:25 AM [facility] MCH 28.5 27.0 - 32.0 pcg LAB HEMETOLOGY METHOD 09/15/2024 8:25 AM [facility] MCHC 29.9(L) 32.0 - 37.0 g/dL LAB HEMETOLOGY METHOD 09/15/2024 8:25 AM [facility] RDW 13.3 11.0 - 15.0 % LAB HEMETOLOGY METHOD 09/15/2024 8:25 AM [facility] Platelets 245 130 - 400 K/mcL LAB HEMETOLOGY METHOD 09/15/2024 8:25 AM [facility] MPV 9.5 7.0 - 11.0 FL LAB HEMETOLOGY METHOD 09/15/2024 8:25 AM [facility] NRBC 0.0 <1.0 % LAB HEMETOLOGY METHOD 09/15/2024 8:25 AM [facility] NRBC Absolute 0.00 <0.10 K/mcL LAB HEMETOLOGY METHOD 09/15/2024 8:25 AM [facility] Neutrophils Relative 73.5 % LAB HEMETOLOGY METHOD 09/15/2024 8:25 AM [facility] Lymphocytes Relative 14.3 % LAB HEMETOLOGY METHOD 09/15/2024 8:25 AM [facility] Monocytes Relative 6.0 % LAB HEMETOLOGY METHOD 09/15/2024 8:25 AM [facility] Eosinophils Relative 4.8 % LAB HEMETOLOGY METHOD 09/15/2024 8:25 AM [facility] Basophils Relative 0.7 % LAB HEMETOLOGY METHOD 09/15/2024 8:25 AM [facility] Immature Granulocytes Relative 0.7 % LAB HEMETOLOGY METHOD 09/15/2024 8:25 AM [facility] Neutrophils Absolute 5.41 1.50 - 7.00 K/mcL LAB HEMETOLOGY METHOD 09/15/2024 8:25 AM [facility] Lymphocytes Absolute 1.05 1.00 - 5.00 K/mcL LAB HEMETOLOGY METHOD 09/15/2024 8:25 AM [facility] Monocytes Absolute 0.44 0.20 - 1.00 K/mcL LAB HEMETOLOGY METHOD 09/15/2024 8:25 AM [facility] Eosinophils Absolute 0.35 0.00 - 0.50 K/mcL LAB HEMETOLOGY METHOD 09/15/2024 8:25 AM [facility] Basophils Absolute 0.05 0.00 - 0.20 K/mcL LAB HEMETOLOGY METHOD 09/15/2024 8:25 AM [facility] Immature Granulocytes Absolute 0.05(H) 0.00 - 0.03 K/mcL LAB HEMETOLOGY METHOD 09/15/2024 8:25 AM [facility] Blood Venous blood specimen / Unknown Venipuncture / Unknown 09/15/2024 5:17 AM EST 09/15/2024 8:04 AM EST Hal Cole MD LAB BLOOD ORDERABLES Final Resul t [facility] [address] [place] [address], * (ABNORMAL) Basic metabolic panel (09/15/2024 5:17 AM EST) Sodium 141 133 - 145 mmol/L LAB CHEMISTRY METHOD 09/15/2024 9:01 AM [facility] Potassium 3.7 3.5 - 5.5 mmol/L LAB CHEMISTRY METHOD 09/15/2024 9:01 AM [facility] Chloride 104 96 - 110 mmol/L LAB CHEMISTRY METHOD 09/15/2024 9:01 AM [facility] CO2 32 21 - 32 mmol/L LAB CHEMISTRY METHOD 09/15/2024 9:01 AM [facility] Anion Gap 5 3 - 11 LAB CHEMISTRY METHOD 09/15/2024 9:01 AM [facility] Glucose 187(H) 70 - 100 mg/dL LAB CHEMISTRY METHOD 09/15/2024 9:01 AM [facility] BUN 57(H) 5 - 25 mg/dL LAB CHEMISTRY METHOD 09/15/2024 9:01 AM [facility] Creatinine 1.92(H) 0.50 - 1.10 mg/dL LAB CHEMISTRY METHOD 09/15/2024 9:01 AM [facility] eGFR 27(L) >=60 mL/min/1. 73m2 LAB CHEMISTRY METHOD 09/15/2024 9:01 AM [facility] Comment:Calculation based on the??Chronic Kidney Disease Epidemiology Collaboration (CKD-EPI) equation refit??without adjustment for race. BUN/Creatinine Ratio 29.7 LAB CHEMISTRY METHOD 09/15/2024 9:01 AM [facility] Calcium 8.4(L) 8.5 - 10.5 mg/dL LAB CHEMISTRY METHOD 09/15/2024 9:01 AM EST [facility] Blood Venous blood specimen / Unknown Venipuncture / Unknown 09/15/2024 5:17 AM EST 09/15/2024 8:04 AM EST us Hal Cole MD LAB BLOOD ORDERABLES Final Resul t [facility] [address] [place] [address], documented in this encounter Visit Diagnoses Diagnosis Chronic obstructive pulmonary disease, unspecified (CMS/HCC V24, CMS/HCC V28) documented in this encounter Care Teams Hadoop Administrator Relationship Specialty Start Date End Date Hal Cole MD [address] [place] [address], [phone] PCP - General Family Medicine 09/15/24 documented as of this encounter
--- OUTSIDE RECORDS SUMMARY | 2025-02-28 03:25 | XMS_ITS | Clinical Summary ---
Author Organization [facility] Address [address] [place] [address] Phone Care Team Providers Care Driver'S License Reviewing Officer Name Role Phone Neida Mirza MD Primary Care Provider [phone] Allergies Active Allergy Reactions Criticality Noted Date [...] Due Date Last Done Comments Pneumococcal Vaccine: 50+ Ye ars (1 of 2 - PCV) 1964 Diabetes: Hemoglobin A1C 11/25/2021 Diabetes: Ophthalmology Exam 11/25/2021 Diabetes: Pedal Pulse Checked 11/25/2021 Diabetes: Sensory Foot Exam 11/25/2021 Diabetes: Visual Foot Exam 11/25/2021 Influenza Vaccine (Season Ended) 2025 Hepatitis B Vaccine Aged Out No longe r eligible based on patient's age to complete this topic Insurance Medicare Medicare Care Teams Driver'S License Reviewing Officer Relationship Specialty Start Date End Date Neida Mirza MD [address] [place], [place] PCP - General 11/05/20
[2025-02-28 05:08] LABS: Glucose, Whole Blood 392 mg/dL (60-115)
[2025-02-28 05:09] VITALS: BP 125/58; PULSE 80; RESP 18; TEMP 36.7; O2SAT 98
--- NOTE | 2025-02-28 05:44 | PC.NURSE ---
pt says she gives herself scheduled nebulizer treatments at home and that she is due for one at this time. audible wheezing noted. RT called to bedside for tx.
[2025-02-28 06:00] VITALS: BP 154/57; PULSE 77; RESP 20; O2SAT 97
[2025-02-28] MEDS: Albuterol Sulfate 90 MCG 8 GM INHALER 4 PUFF INHALE ×2 (06:09→10:08)
[2025-02-28 06:57] LABS: Appearance Urine Clear; Color Urine Yellow; Glucose Urine UA >=1000 mg/dL (Negative); Leukocyte Esterase Urine Trace (Negative); Nitrite Urine Negative (Negative); Specific Gravity - Urine 1.015 (1.005-1.025); UMIC TRIGGER UACC YES; Urine Blood Moderate (2+) (Negative); Urine Ketones Negative (Negative); Urine Protein 100 (2+) mg/dL (Neg-Trace)
[2025-02-28 07:34] LABS: Bacteria Urine Trace (None Seen); Hyaline Casts Urine 0-2 /LPF (0-2); RBC Urine 0-2 /HPF (0-2); Squamous Epithelial Cell Urine 0-2 /HPF (0-2); UACC Culture Trigger YES
--- NOTE | 2025-02-28 07:45 | ED_ITS ---
HPI - General Adult General Chief complaint: Anxiety Stated complaint: SOB, HIGH POC Time Seen by Provider: 02/28/25 07:04 History of Present Illness HPI narrative: Patient is a 79-year-old female with a history of anxiety history of UTI history of COPD/asthma. Patient had a rather large meal last night including cereal and milk. Noted herself to have a high sugar 513. Patient also had a history of urinary tract infection versus colonization. Was started on a course of cefuroxime but was unable to pick up and delivery driver her antibiotics. Patient denies any chest pain. Had shortness of breath earlier which resolved. Patient wants to go home. She is only on and long-acting insulin which she claims she took. Baseline she is on 3 L of oxygen at home. She denies any fever any chest pain. There is no diaphoresis. There is no coughing that is new. Related Data Previous Rx's ?Medication ?Instructions ?Recorded insulin syringe-needle U-100 0.5 #100 ea 07/29/23 mL 31 gauge x 5/16 (BD Insulin Syringe Ultra-Fine) atorvastatin 40 mg tablet 40 mg PO BEDTIME 90 days #90 tabs 06/19/24 blood sugar diagnostic (Accu-Chek #100 ea 07/26/24 Odilia Plus test strips) empagliflozin 10 mg tablet 10 mg PO DAILY #90 tabs 07/26/24 (Jardiance) blood sugar diagnostic (Accu-Chek #100 ea 11/08/24 Guide test strips) lancets (Accu-Chek Softclix #100 ea 11/08/24 Lancets) insulin glargine 100 unit/mL (3 25 unit (0.25 mL) subcut BEDTIME 12/23/24 mL) subcutaneous pen (Basaglar 30 days #7.5 mL KwikPen U-100 Insulin) azithromycin 500 mg tablet 500 mg PO DAILY 5 days #5 tabs 01/12/25 cefuroxime axetil 500 mg tablet 500 mg PO BID #10 tabs 01/12/25 furosemide 40 mg tablet 40 mg PO DAILY #90 tabs 01/12/25 guaifenesin 600 mg tablet, 600 mg PO BID #20 tabs 01/12/25 extended release 12 hr (Mucinex) prednisone 10 mg tablet See Taper PO DIRECTED #30 tabs 01/12/25 sertraline 50 mg tablet 50 mg PO DAILY #90 tabs 01/12/25 sodium bicarbonate 650 mg tablet 650 mg PO DAILY #90 tabs 01/12/25 sodium zirconium cyclosilicate 10 10 g PO DAILY #90 ea 01/12/25 gram oral powder packet (Lokelma) Lift chair #1 ea 01/19/25 pen needle, diabetic 31 gauge x #100 ea 01/24/25/16 (1st Tier Unifine Pentips) gemfibrozil 600 mg tablet 600 mg PO BID #180 tabs 02/05/25 albuterol sulfate 90 mcg/actuation 2 puff inhalation Q6H PRN 02/10/25 aerosol inhaler (Ventolin HFA) shortness of breath or wheezing 30 days #8.5 grams levothyroxine 200 mcg tablet 200 mcg PO DAILY@0600 90 days #90 02/11/25 tabs cefuroxime axetil 250 mg tablet 250 mg PO BID #14 tabs 02/23/25 albuterol sulfate 90 mcg/actuation 2 puff inhalation Q6H PRN 02/25/25 aerosol inhaler (Ventolin HFA) shortness of breath or wheezing #6.7 grams Allergies Allergy/AdvReac Type Severity Reaction Status Date / Time ibuprofen [From Motrin] Allergy Unknown swelling Verified 02/28/25 02:45 codeine [CODEINE] AdvReac Unknown SLEEPY Verified 02/28/25 02:45 Review of Systems 2 Review of Systems: Positive shortness of breath Elevated sugar Yes all other systems are reviewed and are negative PMFSH Past Medical History Attestation statement: The following information was validated with the patient. Medical History COPD (chronic obstructive pulmonary disease) Generalized anxiety disorder CHF (congestive heart failure) Anemia Herpes zoster MARJORIE (acute kidney injury) Left bundle branch block Morbid obesity Chronic pain syndrome Anxiety Pernicious anemia CHF (congestive heart failure) Hypothyroidism Essential hypertension Diabetes mellitus Pure hypercholesterolemia Surgical History H/O left knee surgery Deficient knowledge of leg surgery History of tonsillectomy and adenoidectomy History of appendectomy Family History Family History Father CVD (cardiovascular disease) Mother No problems noted. Family/Other FH: mental illness Social History Social History Household Members: Children and Caregiver Household Members Other:: 2 Housing: House Do you presently have visiting nurse or other home services: No Alcohol intake: unknown Patient Tobacco Use Status: Former Tobacco user Tobacco use type: Cigarette Smoked in Last 30 Days: No e-Cigarette/Vaping Use: Never Used Second Hand Smoke Exposure: No Use of substances other than those prescribed or required for medical reasons: No Advance Directives: Yes Advance Directives on File: Yes Advance Directives Date on File: 06/24/24 Do you have a plan to hurt others: No Plan service: No Current occupational status: disabled Cognitive needs: Yes Hearing needs: No Vision needs: No Physical Exam ED Vital Signs: Vital Signs - 24 hr 02/28/25 02:40 02/28/25 05:09 02/28/25 06:00 Temperature 98 F 98.0 F Pulse Rate 84 80 77 Respiratory Rate 19 18 20 Blood Pressure 109/70 125/58 L 154/57 H Pulse Oximetry 98 98 97 Oxygen Delivery Method Nasal Cannula Nasal Cannula Nasal Cannula Oxygen Flow Rate 3 3 02/28/25 10:08 Temperature Pulse Rate 77 Respiratory Rate 20 Blood Pressure Pulse Oximetry Oxygen Delivery Method Oxygen Flow Rate BMI result Body Mass Index 37.7 Appearance: Alert. Oriented X3. No acute distress. Eyes: Pupils equal, round and reactive to light. ENT: Pharynx normal. Neck: Normal inspection. Neck supple. No lymph nodes noted. No crepitus CVS: Normal heart rate and rhythm. Pulses normal. Normal S1 and S2 Respiratory: No respiratory distress. Diminished breath sounds bilaterally. No Wheezing. No rales Abdomen: Soft and nontender. No rigidity. No distention. good BS x4 Skin: Skin warm and dry. Normal skin color. Normal skin turgor. Extremities: No lower extremity edema. Neurovascular intact to all extremities. No Lacerations. No Rash Neuro: Oriented X 3. No motor deficit. No sensory deficit. Moving all extermities. No slurred speech Medications Administered Discontinued Medications Generic Name Dose Route Start Last Admin Trade Name Freq PRN Reason Stop Dose Admin Albuterol Sulfate 4 puff 02/28/25 06:07 02/28/25 06:09 Albuterol Sulfate 90 Mcg 8 Gm Inhaler INHALE 02/28/25 06:08 4 puff ONCE ONE Administration Albuterol Sulfate 4 puff 02/28/25 10:06 02/28/25 10:08 Albuterol Sulfate 90 Mcg 8 Gm Inhaler INHALE 02/28/25 10:07 4 puff ONCE ONE Administration Ceftriaxone Sodium 1 gm 02/28/25 07:44 02/28/25 08:33 Ceftriaxone Sodium 1 Gm Vial IVPUSH 02/28/25 07:45 1 gm ONCE ONE Administration Insulin Human Regular 4 unit 02/28/25 07:43 02/28/25 08:33 Insulin Regular, Human 100 Unit/Ml 10 Ml Vial IVPUSH 02/28/25 07:44 4 unit ONCE ONE Administration Medical Decision Making Medical Decision Making [facility] Narrative: Patient's sugar was elevated at 513 for the EMS crew. Monitor in the ED. random sugar was 312 on the Chem 7. Patient's BUN and creatinine is approximately baseline. Given a small dose of insulin. Patient had a history of possible urinary tract infection. Never picked up her script. Her lactate is normal her white count is normal her urine could be a colonization instead of a urinary tract infection nevertheless patient was given a dose of Rocephin. She has a script for 7 days of cefuroxime. The son will pick up and delivery driver this morning. Patient's flu COVID RSV were negative. Chest x-ray showed no worsening condition my interpretation is grossly negative radiology's reading is improvement from previous question hilar and left lower infiltrate that are resolving. Patient will need follow-up on an outpatient basis[place] [address]. Patient's baseline is on 3 L of oxygen at home. On 3 L of oxygen in the emergency department is 97-98%. No symptoms. Well-appearing. Will discharge patient home. Patient's hemoglobin is 8.3 this is approximately baseline. Differential Diagnosis Differential Diagnoses: The differential diagnosis associated with the presentation includes Anxiety, hyperglycemia, congestive heart failure, COPD Admission/Observation Consideration of admission/observation: Escalation of care including admission/observation considered Lab Data [facility] Lab Attestation statement: I reviewed the patient's lab results. 02/28/25 08:18 02/28/25 08:06 Labs: Lab Results 02/28/25 02/28/25 02/28/25 Range/Units 05:04 06:44 08:06 WBC (4.8-10.8) X10*3/uL RBC (4.20-5.50) X10*6/uL Hgb (12.0-16.0) g/dl Hct (37.0-47.0) % MCV (80.0-98.0) fL MCH (27.0-33.0) pg MCHC (31.0-35.0) g/dl RDW (11.0-16.0) % Plt Count (160-400) X10*3/uL MPV (9.4-12.3) fL Immature Gran % (Auto) (0.0-0.4) % Neut % (Auto) (45-73) % Lymph % (Auto) (20-40) % [place] % (Auto) (2-11) % Eos % (Auto) (0-4) % Baso % (Auto) (0-2) % Lymph # (Auto) (1.2-4.9) X10*3/uL [place] # (Auto) (0.1-1.2) X10*3/uL Eos # (Auto) (0.0-0.4) X10*3/uL Baso # (Auto) (0.0-0.2) X10*3/uL Abs Immat Gran (auto) (0.00-0.03) X10*3/uL Absolute Neuts (auto) (2.0-8.3) x10*3/uL Absolute Nucleated RBC (0.0-0.012) X10*3/uL Nucleated RBC % (auto) (0.0-0.2) /100WBC Sodium 145 (135-145) mmol/L Potassium 3.7 D (3.3-5.1) mmol/L Chloride 107 (96-108) mmol/L Carbon Dioxide 25 (22-29) mmol/L Anion Gap 17 (12-20) BUN 57 H (9-16) mg/dL Creatinine 1.48 H (0.5-1.4) mg/dL Estim Creat Clear Calc 37.8 Estimated GFR 34 POC Glucose 392 H* (60-115) mg/dL Random Glucose 312 H (60-115) mg/dL Lactic Acid (0.5-2.0) mmol/L Calcium 8.4 (8.4-10.2) mg/dL Troponin I High Sens (<3.5-17.0) ng/L B-Natriuretic Peptide (<100) pg/mL Urine Color Yellow Urine Appearance Clear Urine pH 6.0 (5.0-9.0) Ur Specific [place] 1.015 (1.005-1.025) Urine Protein 100 (2+) H (Neg-Trace) mg/dL Urine Glucose (UA) >=1000 H (Negative) mg/dL Urine Ketones Negative (Negative) mg/dL Urine Blood Moderate (2+) H (Negative) Urine Nitrite Negative (Negative) Ur Leukocyte Esterase Trace H (Negative) Urine RBC 0-2 (0-2) /HPF Urine WBC 11-20 (0-5) /HPF Ur Squamous Epith Cells 0-2 (0-2) /HPF Urine Bacteria Trace (None Seen) Hyaline Casts 0-2 (0-2) /LPF Urine Yeast Present Influenza Type A (PCR) NEGATIVE (Negative) Influenza Type B (PCR) NEGATIVE (Negative) RSV RNA Qual (PCR) NEGATIVE (Negative) SARS-CoV-2 RNA (RT-PCR) NEGATIVE (Negative) 02/28/25 02/28/25 Range/Units 08:18 10:53 WBC 7.0 (4.8-10.8) X10*3/uL RBC 2.83 L (4.20-5.50) X10*6/uL Hgb 8.3 L (12.0-16.0) g/dl Hct 27.5 L (37.0-47.0) % MCV 97.2 (80.0-98.0) fL MCH 29.3 (27.0-33.0) pg MCHC 30.2 L (31.0-35.0) g/dl RDW 14.0 (11.0-16.0) % Plt Count 254 (160-400) X10*3/uL MPV 8.6 L (9.4-12.3) fL Immature Gran % (Auto) 0.7 H (0.0-0.4) % Neut % (Auto) 83.7 H (45-73) % Lymph % (Auto) 6.7 L (20-40) % [place] % (Auto) 6.7 (2-11) % Eos % (Auto) 1.6 (0-4) % Baso % (Auto) 0.6 (0-2) % Lymph # (Auto) 0.5 L (1.2-4.9) X10*3/uL [place] # (Auto) 0.5 (0.1-1.2) X10*3/uL Eos # (Auto) 0.1 (0.0-0.4) X10*3/uL Baso # (Auto) 0.0 (0.0-0.2) X10*3/uL Abs Immat Gran (auto) 0.05 H (0.00-0.03) X10*3/uL Absolute Neuts (auto) 5.9 (2.0-8.3) x10*3/uL Absolute Nucleated RBC 0.000 (0.0-0.012) X10*3/uL Nucleated RBC % (auto) 0.0 (0.0-0.2) /100WBC Sodium (135-145) mmol/L Potassium (3.3-5.1) mmol/L Chloride (96-108) mmol/L Carbon Dioxide (22-29) mmol/L Anion Gap (12-20) BUN (9-16) mg/dL Creatinine (0.5-1.4) mg/dL Estim Creat Clear Calc Estimated GFR POC Glucose 230 H (60-115) mg/dL Random Glucose (60-115) mg/dL Lactic Acid 1.4 (0.5-2.0) mmol/L Calcium (8.4-10.2) mg/dL Troponin I High Sens 15.4 (<3.5-17.0) ng/L B-Natriuretic Peptide 240 H (<100) pg/mL Urine Color Urine Appearance Urine pH (5.0-9.0) Ur Specific [place] (1.005-1.025) Urine Protein (Neg-Trace) mg/dL Urine Glucose (UA) (Negative) mg/dL Urine Ketones (Negative) mg/dL Urine Blood (Negative) Urine Nitrite (Negative) Ur Leukocyte Esterase (Negative) Urine RBC (0-2) /HPF Urine WBC (0-5) /HPF Ur Squamous Epith Cells (0-2) /HPF Urine Bacteria (None Seen) Hyaline Casts (0-2) /LPF Urine Yeast Influenza Type A (PCR) (Negative) Influenza Type B (PCR) (Negative) RSV RNA Qual (PCR) (Negative) SARS-CoV-2 RNA (RT-PCR) (Negative) Independent Interpretation I performed an independent interpretation of an: EKG (My interpretation of patient's EKG showed a sinus rhythm heart rate is 70 QRS is wide but is old. Patient's QTC is 500. There is no acute ST segment changes. ) and Plain X-Ray (No large infiltrate.) Radiology Impression Discussion of test interpretation with radiology: I have reviewed the radiologist's reading. External Record Review External record reviewed: Inpatient record Prescription Management I considered prescription management with: Antibiotic (Patient already has a script for antibiotics) Chronic Conditions COPD baseline on 3 L of oxygen Social Determinants Patient?s care significantly limited by Social Determinants of Health including: Problems related to primary support group Discharge Plan Discharge Clinical Impression: Anxiety, Acute hyperglycemia Patient Disposition: Home, Self-Care Instructions: Anxiety (ED), Diabetic Hyperglycemia (ED) Prescriptions: No Action (DME) insulin syringe-needle U-100 [BD Insulin Syringe Ultra-Fine] 0.5 mL 31 gauge x 5/16 syringe See Rx Instructions .Route Qty: 100 3RF Rx Instructions: Use 1 needle once a day atorvastatin 40 mg tablet 40 mg PO BEDTIME 90 Days Qty: 90 3RF Jardiance 10 mg tablet 10 mg PO DAILY Qty: 90 1RF (DME) Accu-Chek Odilia Plus test strp Strip See Rx Instructions .Route Qty: 100 1RF Rx Instructions: Use 1 test strip once a day (DME) Accu-Chek Guide test strips Strip See Rx Instructions .Route Qty: 100 3RF Rx Instructions: Use 1 test strip once a day (DME) lancets [Accu-Chek Softclix Lancets] Misc See Rx Instructions .Route Qty: 100 3RF Rx Instructions: Use 1 lancet once a day insulin glargine [Basaglar KwikPen U-100 Insulin] 100 unit/mL (3 mL) insulin pen 25 unit subcut BEDTIME 30 Days Qty: 7.5 0RF (DME) Lift chair See Rx Instructions .Route .MEDSUPPLY Qty: 1 0RF Rx Instructions: As directed (DME) pen needle, diabetic [1st Tier Unifine Pentips] 31 gauge x 5/16 needle See Rx Instructions .Route Qty: 100 4RF Rx Instructions: Use 1 pen needle once a day gemfibrozil 600 mg tablet 600 mg PO BID Qty: 180 1RF albuterol sulfate [Ventolin HFA] 90 mcg/actuation HFA aerosol inhaler 2 puff inhalation Q6H PRN (Reason: shortness of breath or wheezing) 30 Days Qty: 8.5 0RF levothyroxine 200 mcg tablet 200 mcg PO DAILY@0600 90 Days Qty: 90 0RF albuterol sulfate [Ventolin HFA] 90 mcg/actuation HFA aerosol inhaler 2 puff inhalation Q6H PRN (Reason: shortness of breath or wheezing) Qty: 6.7 0RF cefuroxime axetil 250 mg tablet 250 mg PO BID Qty: 14 0RF sodium bicarbonate 650 mg Tablet 650 mg PO DAILY Qty: 90 0RF guaifenesin [Mucinex] 600 mg Tablet Extended Release 12hr 600 mg PO BID Qty: 20 0RF Lokelma 10 gram Powder In Packet 10 g PO DAILY Qty: 90 0RF sertraline 50 mg Tablet 50 mg PO DAILY Qty: 90 0RF azithromycin 500 mg tablet 500 mg PO DAILY 5 Days Qty: 5 0RF cefuroxime axetil 500 mg tablet 500 mg PO BID Qty: 10 0RF furosemide 40 mg tablet 40 mg PO DAILY Qty: 90 0RF prednisone 10 mg tablet See Taper PO DIRECTED Qty: 30 0RF Taper: Prednisone 40 mg daily for 3 Days and 0 Hour 30 mg daily for 3 Days and 0 Hour 20 mg daily for 3 Days and 0 Hour 10 mg daily for 3 Days and 0 Hour Rx Instructions: see taper instructions Referrals: Neida Mirza MD [Primary Care Provider] - 03/02/25 Print Language: Serbian
[2025-02-28 08:23] LABS: MANUAL DIFF FLAG NO
[2025-02-28 08:23] LABS: Anion Gap 17 (12-20); Blood Urea Nitrogen 57 mg/dL (9-16); Calcium 8.4 mg/dL (8.4-10.2); Carbon Dioxide 25 mmol/L (22-29); Chloride 107 mmol/L (96-108); Creatinine Clr Calc Pharmacy 37.8; Estimated Glomerular Filt Rate 34; Glucose Random 312 mg/dL (60-115); Potassium 3.7 mmol/L (3.3-5.1); Sodium 145 mmol/L (135-145)
[2025-02-28 08:24] LABS: Basophils Percent Auto 0.6 % (0-2); Eosinophils Absolute Auto 0.1 X10*3/uL (0.0-0.4); Eosinophils Percent Auto 1.6 % (0-4); Hematocrit 27.5 % (37.0-47.0); Hemoglobin 8.3 g/dl (12.0-16.0); Imm Gran Abs Auto 0.05 X10*3/uL (0.00-0.03); Imm Gran Pct Auto 0.7 % (0.0-0.4); Lymphocytes Absolute Auto 0.5 X10*3/uL (1.2-4.9); Lymphocytes Percent Auto 6.7 % (20-40); Mean Corpuscular HGB Conc 30.2 g/dl (31.0-35.0); Mean Corpuscular Hemoglobin 29.3 pg (27.0-33.0); Mean Corpuscular Volume 97.2 fL (80.0-98.0); Mean Platelet Volume 8.6 fL (9.4-12.3); Monocytes Absolute Auto 0.5 X10*3/uL (0.1-1.2); Monocytes Percent Auto 6.7 % (2-11); Neutrophils Absolute Auto 5.9 x10*3/uL (2.0-8.3); Neutrophils Percent Auto 83.7 % (45-73); Platelet Count 254 X10*3/uL (160-400); Red Blood Count 2.83 X10*6/uL (4.20-5.50)
[2025-02-28] MEDS: Insulin Regular, Human 100 UNIT/ML 10 ML VIAL IVPUSH (08:33)
[2025-02-28] MEDS: cefTRIAXone sodium 1 GM VIAL IVPUSH (08:33)
[2025-02-28 08:38] LABS: Lactic Acid 1.4 mmol/L (0.5-2.0)
[2025-02-28 08:44] LABS: B Type Natriuretic Peptide 240 pg/mL (<100)
[2025-02-28 08:45] LABS: Troponin-I High Sensitivity 15.4 ng/L (<3.5-17.0)
[2025-02-28 08:50] LABS: Influenza A PCR NEGATIVE (Negative); Influenza B PCR NEGATIVE (Negative); Resp Syncy Virus RNA Qual PCR NEGATIVE (Negative); SARS COV2 PCR INHOUSE NEGATIVE (Negative)
[2025-02-28 10:08] VITALS: PULSE 77; RESP 20; O2SAT 94
--- NOTE | 2025-02-28 10:30 | ECG_ITS ---
Test Reason : anxiety/sob Blood Pressure : */* mmHG Vent. Rate : 70 BPM Atrial Rate : * BPM P-R Int : * ms QRS Dur : 130 ms QT Int : 464 ms P-R-T Axes : * -43 94 degrees QTcB Int : 501 ms Artifact in tracing unclear if any pacing spikes Left axis deviation Left ventricular hypertrophy with QRS widening and repolarization abnormality ( R in aVL , [place] product ) Abnormal ECG When compared with ECG of 05-Jan-2025 02:19, No significant changes seen Referred By: Fiorella Echevarria Electronically Signed By: JIMBO CASTILLO
[2025-02-28 10:56] LABS: Glucose, Whole Blood 230 mg/dL (60-115)
[2025-02-28 13:25] VITALS: BP 114/51; PULSE 74; RESP 20; TEMP 36.7; O2SAT 97
[2025-02-28 13:29] VITALS: BP 114/51; PULSE 74; RESP 20; TEMP 36.7; O2SAT 97
== END 2025-02-28 13:34 | disposition home or self-care (01) ==
PROVIDERS: Emergency Provider Emergency Medicine Emergency Medical Services; PCP Internal Medicine
DX: E11.65 Type 2 diabetes mellitus with hyperglycemia (principal); F41.9 Anxiety disorder, unspecified; N39.0 Urinary tract infection, site not specified; B95.2 Enterococcus as the cause of diseases classified elsewhere; J44.9 Chronic obstructive pulmonary disease, unspecified; Z87.891 Personal history of nicotine dependence; Z03.818 Encounter for observation for suspected exposure to other biological agents ruled out
CPT/HCPCS: 0241U; 36415; 71045; 80048; 81001; 82947; 83605; 83880; 84484; 85025; 87040; 87086; 87088; 87186; 93005; 96374; 96375; 99285; J0696

== ENCOUNTER → 2025-02-28 06:30 | Outpatient (BNV) | payer MEDICARE, MEDICAID, SELFPAY | PROVIDERS: Emergency Provider Emergency Medicine Emergency Medical Services; PCP Internal Medicine; Visit Provider Radiology Diagnostic Radiology | DX: R06.00 Dyspnea, unspecified (principal) | CPT/HCPCS: 71045 ==

== ENCOUNTER → 2025-02-28 10:30 | Outpatient (BNV) | payer MEDICARE, MEDICAID, SELFPAY | PROVIDERS: Emergency Provider Emergency Medicine Emergency Medical Services; PCP Internal Medicine; Visit Provider Internal Medicine | DX: I51.7 Cardiomegaly (principal) | CPT/HCPCS: 93010 ==

== ENCOUNTER 2025-03-15 15:00 | Outpatient (AMB) | payer MEDICARE, MEDICAID, SELFPAY ==
--- OUTSIDE RECORDS SUMMARY | 2025-03-15 15:06 | XMS_ITS | Encounter Summary ---
Author Organization [employer] Address [address] [place] [address] Care Team Providers Care Linux Unix Engineer Name Role Phone Hal Cole MD Primary Care Provider [phone] Encounter Details Date Type Department Care Team (Late st Contact Info) Description 09/28/2024 Lab Requisition [facility] - Main Lab [address] [facility] [place] [address] Hal Cole MD [address] [place] [address], [phone] Essential (primary) hypertension; Chronic obstructive pulmonary disease, unspecified (CMS/HCC V24, [...] LAB CHEMISTRY METHOD 09/28/2024 1:08 PM EST [facility] Blood Venous blood specimen / Unknown Venipuncture / Unknown 09/28/2024 7:04 AM EST 09/28/2024 11:03 AM EST Hal Cole MD LAB BLOOD ORDERABLES Final Resul t Performing Organization Address [facility]/ZIP Co de Phone Number [facility] [address] [place] [address], [place] [phone] * Free thyroxine with reflex to free triiodothyronine (09/28/2024 7:04 AM EST) Pathologist [facility] Free T4 0.88 0.70 - 1.80 ng/dL LAB CHEMISTRY METHOD 09/28/2024 12:41 PM EST [facility] Blood Venous blood specimen / Unknown Venipuncture / Unknown 09/28/2024 7:04 AM EST 09/28/2024 11:03 AM EST Hal Cole MD LAB BLOOD ORDERABLES Final Resul t [facility] [address] [place] [address], [place] [phone] * (ABNORMAL) Thyroid stimulating hormone with reflex to free t4 and free t3 (09/28/2024 7:04 AM EST) TSH 50.98(H) 0.40 - 4.00 mcIU/mL LAB CHEMISTRY METHOD 09/28/2024 12:15 PM [facility] Blood Venous blood specimen / Unknown Venipuncture / Unknown 09/28/2024 7:04 AM EST 09/28/2024 11:03 AM EST us Hal Cole MD LAB BLOOD ORDERABLES Final Resul t [facility] [address] [place] [address], [place] [phone] * (ABNORMAL) Basic metabolic panel (09/28/2024 7:04 [...] 73m2 LAB CHEMISTRY METHOD 09/28/2024 12:06 PM [facility] Comment:Calculation based on the??Chronic Kidney Disease Epidemiology Collaboration (CKD-EPI) equation refit??without adjustment for race. BUN/Creatinine Ratio 36.6 LAB CHEMISTRY METHOD 09/28/2024 12:06 PM [facility] Calcium 8.3(L) 8.5 - 10.5 mg/dL LAB CHEMISTRY METHOD 09/28/2024 12:06 PM [facility] Blood Venous blood specimen / Unknown Venipuncture / Unknown 09/28/2024 7:04 AM EST 09/28/2024 11:03 AM EST us Hal Cole MD LAB BLOOD ORDERABLES Final Resul t [facility] [address] [place] [address], [place] [phone] * (ABNORMAL) Complete blood count (09/28/2024 7:04 AM EST) WBC 7.1 4.8 - 10.8 K/mcL LAB HEMETOLOGY METHOD 09/28/2024 11:31 AM [facility] RBC 3.70(L) 3.80 - 4.80 M/mcL LAB HEMETOLOGY METHOD 09/28/2024 11:31 AM [facility] Hemoglobin 10.8(L) 11.5 - 16.0 g/dL LAB HEMETOLOGY METHOD 09/28/2024 11:31 AM [facility] Hematocrit 36.0 35.0 - 47.0 % LAB HEMETOLOGY METHOD 09/28/2024 11:31 AM [facility] MCV 96.5 79.0 - 98.0 FL LAB HEMETOLOGY METHOD 09/28/2024 11:31 AM [facility] MCH 29.0 27.0 - 32.0 pcg LAB HEMETOLOGY METHOD 09/28/2024 11:31 AM [facility] MCHC 30.0(L) 32.0 - 37.0 g/dL LAB HEMETOLOGY METHOD 09/28/2024 11:31 AM EST [facility] RDW 13.5 11.0 - 15.0 % LAB HEMETOLOGY METHOD 09/28/2024 11:31 AM EST [facility] Platelets 214 130 - 400 K/mcL LAB HEMETOLOGY METHOD 09/28/2024 11:31 AM EST [facility] MPV 9.9 7.0 - 11.0 FL LAB HEMETOLOGY METHOD 09/28/2024 11:31 AM EST [facility] NRBC 0.0 <1.0 % LAB HEMETOLOGY METHOD 09/28/2024 11:31 AM [facility] NRBC Absolute 0.00 <0.10 K/mcL LAB HEMETOLOGY METHOD 09/28/2024 11:31 AM [facility] Blood Venous blood specimen / Unknown Venipuncture / Unknown 09/28/2024 7:04 AM EST 09/28/2024 11:03 AM EST us Hal Cole MD LAB BLOOD ORDERABLES Final Resul t [facility] [address] [place] [address], documented in this encounter Visit Diagnoses Diagnosis Essential (primary) hypertension Unspecified essential hypertension Chronic obstructive pulmonary disease, unspecified (CMS/HCC V24, CMS/HCC V28) documented in this encounter Care Teams Linux Unix Engineer Relationship Specialty Start Date End Date Hal Cole MD [address] [place] [address], [phone] PCP - General Family Medicine 09/15/24 documented as of this encounter
--- OUTSIDE RECORDS SUMMARY | 2025-03-15 15:07 | XMS_ITS | Encounter Summary ---
Author Organization [facility] Address [address] [place] [address] Care Team Providers Care Sql Application Developer Name Role Phone Hal Cole MD Primary Care Provider [phone] Encounter Details Date Type Department Care Team (Late st Contact Info) Description 08/27/2024 Lab Requisition [facility] - Main Lab [address] [facility] [place] [address] Hal Cole MD [address] [place] [address], [phone] Type 2 diabetes mellitus without complications [...] Travel phlebotomy fee (08/29/2024 5:30 AM EST) [facility] HOME TRAVEL PHLEBOTOMY FEE Completed 08/29/2024 10:01 AM [facility] Blood Venous blood specimen / Unknown Venipuncture / Unknown 08/29/2024 5:30 AM EST 08/29/2024 9:51 AM EST us Hal Cole MD LAB BLOOD ORDERABLES Final Resul t [facility] [address] [place] [address], * (ABNORMAL) Basic metabolic panel (08/29/2024 5:30 AM EST) [facility] Sodium 137 133 - 145 mmol/L LAB CHEMISTRY METHOD 08/29/2024 10:57 AM [facility] Potassium 5.0 3.5 - 5.5 mmol/L LAB CHEMISTRY METHOD 08/29/2024 10:57 AM [facility] Comment:Hemolysis present Chloride 101 96 - 110 mmol/L LAB CHEMISTRY METHOD 08/29/2024 10:57 AM [facility] CO2 29 21 - 32 mmol/L LAB CHEMISTRY METHOD 08/29/2024 10:57 AM [facility] Anion Gap 7 3 - 11 LAB CHEMISTRY METHOD 08/29/2024 10:57 AM [facility] Glucose 156(H) 70 - 100 mg/dL LAB CHEMISTRY METHOD 08/29/2024 10:57 AM [facility] BUN 62(H) 5 - 25 mg/dL LAB CHEMISTRY METHOD 08/29/2024 10:57 AM [facility] Creatinine 1.63(H) 0.50 - 1.10 mg/dL LAB CHEMISTRY METHOD 08/29/2024 10:57 AM [facility] eGFR 33(L) >=60 mL/min/1. 73m2 LAB CHEMISTRY METHOD 08/29/2024 10:57 AM EST [facility] Comment:Calculation based on the??Chronic Kidney Disease Epidemiology Collaboration (CKD-EPI) equation refit??without adjustment for race. BUN/Creatinine Ratio 38.0 LAB CHEMISTRY METHOD 08/29/2024 10:57 AM [facility] Calcium 8.8 8.5 - 10.5 mg/dL LAB CHEMISTRY METHOD 08/29/2024 10:57 AM [facility] Blood Venous blood specimen / Unknown Venipuncture / Unknown 08/29/2024 5:30 AM EST 08/29/2024 9:51 AM EST us Hal Cole MD LAB BLOOD ORDERABLES Final Resul t [facility] [address] [place] [address], [place] [phone] * (ABNORMAL) Complete blood count (08/29/2024 5:30 AM EST) WBC 8.4 4.8 - 10.8 K/mcL LAB HEMETOLOGY METHOD 08/29/2024 10:59 AM [facility] RBC 4.00 3.80 - 4.80 M/mcL LAB HEMETOLOGY METHOD 08/29/2024 10:59 AM [facility] Hemoglobin 11.6 11.5 - 16.0 g/dL LAB HEMETOLOGY METHOD 08/29/2024 10:59 AM [facility] Hematocrit 39.0 35.0 - 47.0 % LAB HEMETOLOGY METHOD 08/29/2024 10:59 AM [facility] MCV 98.5(H) 79.0 - 98.0 FL LAB HEMETOLOGY METHOD 08/29/2024 10:59 AM [facility] MCH 29.3 27.0 - 32.0 pcg LAB HEMETOLOGY METHOD 08/29/2024 10:59 AM EST [facility] MCHC 29.7(L) 32.0 - 37.0 g/dL LAB HEMETOLOGY METHOD 08/29/2024 10:59 AM [facility] RDW 13.5 11.0 - 15.0 % LAB HEMETOLOGY METHOD 08/29/2024 10:59 AM [facility] Platelets 308 130 - 400 K/mcL LAB HEMETOLOGY METHOD 08/29/2024 10:59 AM [facility] MPV 9.9 7.0 - 11.0 FL LAB HEMETOLOGY METHOD 08/29/2024 10:59 AM [facility] NRBC 0.0 <1.0 % LAB HEMETOLOGY METHOD 08/29/2024 10:59 AM [facility] NRBC Absolute 0.00 <0.10 K/mcL LAB HEMETOLOGY METHOD 08/29/2024 10:59 AM [facility] Blood Venous blood specimen / Unknown Venipuncture / Unknown 08/29/2024 5:30 AM EST 08/29/2024 9:51 AM EST us Hal Cole MD LAB BLOOD ORDERABLES Final Resul t [facility] [address] [place] [address], documented in this encounter Visit Diagnoses Diagnosis Type 2 diabetes mellitus without complications (CMS/HCC V24, CMS/HCC V28) Chronic obstructive pulmonary disease, unspecified (CMS/HCC V24, CMS/HCC V28) documented in this encounter Care Teams Sql Application Developer Relationship Specialty Start Date End Date Hal Cole MD [address] [place] [address], [phone] PCP - General Family Medicine 09/15/24 documented as of this encounter
--- OUTSIDE RECORDS SUMMARY | 2025-03-15 15:07 | XMS_ITS | Encounter Summary ---
Author Organization [facility] Address [address] [place] [address] Care Team Providers Care Heater Mechanic Name Role Phone Hal Cole MD Primary Care Provider [phone] Encounter Details Date Type Department Care Team (Late st Contact Info) Description 09/21/2024 Lab Requisition [facility] - Main Lab [address] [place] [address] Hal Cole MD [address] [place] [address], [phone] Chronic kidney disease, unspecified Social History [...] LAB CHEMISTRY METHOD 09/21/2024 12:[address] [facility] Potassium 4.2 3.5 - 5.5 mmol/L LAB CHEMISTRY METHOD 09/21/2024 12:[address] [facility] Chloride 107 96 - 110 mmol/L LAB CHEMISTRY METHOD 09/21/2024 12:[address] [facility] CO2 26 21 - 32 mmol/L LAB CHEMISTRY METHOD 09/21/2024 12:11 PM [facility] Anion Gap 10 3 - 11 LAB CHEMISTRY METHOD 09/21/2024 12:11 PM [facility] Glucose 126(H) 70 - 100 mg/dL LAB CHEMISTRY METHOD 09/21/2024 12:11 PM [facility] BUN 49(H) 5 - 25 mg/dL LAB CHEMISTRY METHOD 09/21/2024 12:11 PM [facility] Creatinine 1.58(H) 0.50 - 1.10 mg/dL LAB CHEMISTRY METHOD 09/21/2024 12:11 PM [facility] eGFR 34(L) >=60 mL/min/1. 73m2 LAB CHEMISTRY METHOD 09/21/2024 12:11 PM [facility] Comment:Calculation based on the??Chronic Kidney Disease Epidemiology Collaboration (CKD-EPI) equation refit??without adjustment for race. BUN/Creatinine Ratio 31.0 LAB CHEMISTRY METHOD 09/21/2024 12:11 PM [facility] Calcium 8.4(L) 8.5 - 10.5 mg/dL LAB CHEMISTRY METHOD 09/21/2024 12:11 PM [facility] Blood Venous blood specimen / Unknown Venipuncture / Unknown 09/21/2024 7:31 AM EST 09/21/2024 9:59 AM EST us Hal Cole MD LAB BLOOD ORDERABLES Final Resul t [facility] [address] [place] [address], documented in this encounter Visit Diagnoses Diagnosis Chronic kidney disease, unspecified documented in this encounter Care Teams Heater Mechanic Relationship Specialty Start Date End Date Hal Cole MD [address] [place] [address], [phone] PCP - General Family Medicine 11/21/24 documented as of this encounter
--- OUTSIDE RECORDS SUMMARY | 2025-03-15 15:07 | XMS_ITS | Encounter Summary ---
Author Organization [employer] Address [address] [place] [address] Care Team Providers Care Manager Food Safety Name Role Phone Hal Cole MD Primary Care Provider [phone] Encounter Details Date Type Department Care Team (Late st Contact Info) Description 09/15/2024 Lab Requisition [facility] - Main Lab [address] [place] [address] Hal Cole MD [address] [place] [address], [phone] Chronic obstructive pulmonary disease, unspecified (CMS/HCC [...] AM EST) WBC 7.4 4.8 - 10.8 /[facility] LAB HEMETOLOGY METHOD 09/15/2024 8:25 AM [facility] RBC 3.70(L) 3.80 - 4.80 M/mcL LAB HEMETOLOGY METHOD 09/15/2024 8:25 AM [facility] Hemoglobin 10.6(L) 11.5 - 16.0 g/dL LAB HEMETOLOGY METHOD 09/15/2024 8:25 AM [facility] Hematocrit 35.5 35.0 - 47.0 % LAB HEMETOLOGY METHOD 09/15/2024 8:25 AM [facility] MCV 95.4 79.0 - 98.0 FL LAB HEMETOLOGY METHOD 09/15/2024 8:25 AM [facility] MCH 28.5 27.0 - 32.0 pcg LAB HEMETOLOGY METHOD 09/15/2024 8:25 AM [facility] MCHC 29.9(L) 32.0 - 37.0 g/dL LAB HEMETOLOGY METHOD 09/15/2024 8:25 AM [facility] RDW 13.3 11.0 - 15.0 % LAB HEMETOLOGY METHOD 09/15/2024 8:25 AM [facility] Platelets 245 130 - 400 K/mcL LAB HEMETOLOGY METHOD 09/15/2024 8:25 AM [facility] MPV 9.5 7.0 - 11.0 FL LAB HEMETOLOGY METHOD 09/15/2024 8:25 AM [facility] NRBC 0.0 <1.0 % LAB HEMETOLOGY METHOD 09/15/2024 8:25 AM [facility] NRBC Absolute 0.00 <0.10 K/mcL LAB HEMETOLOGY METHOD 09/15/2024 8:25 AM [facility] Neutrophils Relative 73.5 % LAB HEMETOLOGY METHOD 09/15/2024 8:25 AM [facility] Lymphocytes Relative 14.3 % LAB HEMETOLOGY METHOD 09/15/2024 8:25 AM [facility] Monocytes Relative 6.0 % LAB HEMETOLOGY METHOD 09/15/2024 8:25 AM [facility] Eosinophils Relative 4.8 % LAB HEMETOLOGY METHOD 09/15/2024 8:25 AM [facility] Basophils Relative 0.7 % LAB HEMETOLOGY METHOD 09/15/2024 8:25 AM [facility] Immature Granulocytes Relative 0.7 % LAB HEMETOLOGY METHOD 09/15/2024 8:25 AM [facility] Neutrophils Absolute 5.41 1.50 - 7.00 K/mcL LAB HEMETOLOGY METHOD 09/15/2024 8:25 AM [facility] Lymphocytes Absolute 1.05 1.00 - 5.00 K/mcL LAB HEMETOLOGY METHOD 09/15/2024 8:25 AM [facility] Monocytes Absolute 0.44 0.20 - 1.00 K/mcL LAB HEMETOLOGY METHOD 09/15/2024 8:25 AM [facility] Eosinophils Absolute 0.35 0.00 - 0.50 K/mcL LAB HEMETOLOGY METHOD 09/15/2024 8:25 AM [facility] Basophils Absolute 0.05 0.00 - 0.20 K/mcL LAB HEMETOLOGY METHOD 09/15/2024 8:25 AM [facility] Immature Granulocytes Absolute 0.05(H) 0.00 - 0.03 K/mcL LAB HEMETOLOGY METHOD 09/15/2024 8:25 AM [facility] Blood Venous blood specimen / Unknown Venipuncture / Unknown 09/15/2024 5:17 AM EST 09/15/2024 8:04 AM EST Hal Cole MD LAB BLOOD ORDERABLES Final Resul t [facility] [address] [place] [address], * (ABNORMAL) Basic metabolic panel (09/15/2024 5:17 AM EST) Sodium 141 133 - 145 mmol/L LAB CHEMISTRY METHOD 09/15/2024 9:01 AM [facility] Potassium 3.7 3.5 - 5.5 mmol/L LAB CHEMISTRY METHOD 09/15/2024 9:01 AM [facility] Chloride 104 96 - 110 mmol/L LAB CHEMISTRY METHOD 09/15/2024 9:01 AM [facility] CO2 32 21 - 32 mmol/L LAB CHEMISTRY METHOD 09/15/2024 9:01 AM [facility] Anion Gap 5 3 - 11 LAB CHEMISTRY METHOD 09/15/2024 9:01 AM [facility] Glucose 187(H) 70 - 100 mg/dL LAB CHEMISTRY METHOD 09/15/2024 9:01 AM [facility] BUN 57(H) 5 - 25 mg/dL LAB CHEMISTRY METHOD 09/15/2024 9:01 AM [facility] Creatinine 1.92(H) 0.50 - 1.10 mg/dL LAB CHEMISTRY METHOD 09/15/2024 9:01 AM [facility] eGFR 27(L) >=60 mL/min/1. 73m2 LAB CHEMISTRY METHOD 09/15/2024 9:01 AM [facility] Comment:Calculation based on the??Chronic Kidney Disease Epidemiology Collaboration (CKD-EPI) equation refit??without adjustment for race. BUN/Creatinine Ratio 29.7 LAB CHEMISTRY METHOD 09/15/2024 9:01 AM [facility] Calcium 8.4(L) 8.5 - 10.5 mg/dL LAB CHEMISTRY METHOD 09/15/2024 9:01 AM EST [facility] Blood Venous blood specimen / Unknown Venipuncture / Unknown 09/15/2024 5:17 AM EST 09/15/2024 8:04 AM EST us Hal Cole MD LAB BLOOD ORDERABLES Final Resul t [facility] [address] [place] [address], documented in this encounter Visit Diagnoses Diagnosis Chronic obstructive pulmonary disease, unspecified (CMS/HCC V24, CMS/HCC V28) documented in this encounter Care Teams Manager Food Safety Relationship Specialty Start Date End Date Hal Cole MD [address] [place] [address], [phone] PCP - General Family Medicine 09/15/24 documented as of this encounter
--- OUTSIDE RECORDS SUMMARY | 2025-03-15 15:07 | XMS_ITS | Data Portability ---
Author Organization [facility] [employer] [facility], Main Office Address [address] [facility] [place] [address] Care Team Providers Care Senior Underwriting Assistant Name Role Phone VALARIE JORDAN - [...] By Organization Details Last Modified Time 09/06/2024 [id number] medicines to avoid with kidney disease: care instructions [email or web address] Not available 09/06/2024 14:42:44 09/08/2024 [id number] medicines to avoid with kidney disease: care instructions [email or web address] Not available 09/08/2024 13:56:49 Reason for Referral None Reported. Problems Name Problem SNOMED Code Status Onset Date Resolution Date Notes Provider Name and Address Organization Details Recorded Time Acute hypoxemic respirator y failure 593840252 Active 2023 ALLAN PRADHAN NP [address] [facility], [address], [place], [address], [facility] [employer] 4 10:51:05 Pneumonia 864501390 Active 2023 ALLAN PRADHAN NP [address] [facility], [address], [place], [address], [place] [facility] 4 10:51:21 Pleural effusion 74675599 Active 2023 ALLAN PRADHAN NP [address], [address], [place], [address], [facility] 4 10:51:43 Gastroesop hageal reflux disease without esophagiti s 756748974 Active 2023 ALLAN PRADHAN NP [address], [place], [address], [facility] 4 10:53:46 Anxiety 54144959 Active 2023 ALLAN PRADHAN NP [address], [place], [address], [facility] 4 11:00:09 Chronic kidney disease stage 3 297996424 Active 2023 ALLAN PRADHAN NP [address], [place], [address], [facility] 4 11:21:29 Chronic pain syndrome 256798246 Active 2023 ALLAN PRADHAN NP [address], [place], [address], [facility] 4 11:21:39 Acute nontraumat ic kidney injury 0543968453716 03 Active 2023 ALLAN PRADHAN NP [address], [place], [address], [facility] 4 11:23:16 Left bundle branch block 22646020 Active 2023 ALLAN PRADHAN NP [address], [place], [address], [facility] 4 11:23:30 Pernicious anemia 79578592 Active 2023 ALLAN PRADHAN NP [address], [place], [address], [facility] 4 11:23:46 Obstructiv e sleep apnea syndrome 33438870 Active 2023 ALLAN PRADHAN NP [address], [place], [address], [facility] 4 11:47:23 Open wound 550378507 Active 2023 sacral ALLAN PRADHAN NP [address], [place], [address], [facility] 4 12:05:33 Asthenia 11533432 Active 2023 ALLAN PRADHAN NP [address], [place], [address], [facility] 4 12:10:47 Diastolic heart failure 233415516 Active 2018 Hal Cole MD [address], [place], [address], [facility] 9 14:45:31 Dysphagia 11464312 Active 2018 Hal Cole MD [address], [place], [address], [facility] 9 14:45:39 Chronic obstructiv e pulmonary disease 39949393 Active 2018 Hal Cole MD [address], [place], [address], [facility] 9 14:45:48 Essential hypertensi on 38389207 Active 2018 Hal Cole MD [address], [place], [address], [facility] 9 14:45:53 Diabetes mellitus 06316800 Active 2018 Hal Cole MD [address], [place], [address], [facility] 9 14:45:57 Hyperlipid emia 74734278 Active 2018 Hal Cole MD [address], [place], [address], [facility] 9 14:46:04 Obesity 233294588 Active 2018 Hal Cole MD [address], [place], [address], [facility] [employer] 9 14:46:12 Hypothyroi dism 25520393 Active 2018 Hal Cole MD [address] [facility], [facility] [address], [place], [address], [facility] [employer] 9 14:50:40 Problem Notes None recorded. Medical Equipment None Reported. Allergies Allergen ID Allergen Name Allergen Category Reaction Reaction Severity Criticality Documentation Date Start Date Code Code System Note Provider Name and Address Organization Details Recorded Time 72077 ibuprofen medicatio n Not available Not available Not available 08/11/2024 5640 RxNorm swell ing ALLAN PRADHAN NP [address] [facility], [facility] [address], [place], [address], [facility] [employer] 4 11:04:39 17799 codeine medicatio n Not available Not available Not available 08/11/2024 2670 RxNorm sleep y ALLAN PRADHAN NP [address] [facility], [facility] [address], [place], [address], [facility] [employer] 4 11:05:51 Medications Name Sig Start Date [...] mm[Hg] 86 mm[Hg] ALLAN PRADHAN NP [address] [facility], [facility] [address], [place], [address], [facility] 4 14:03:04 Date Recorded Heart rate Respiratory rate Body temperature Oxygen saturation Oxygen saturation in Arterial blood by Pulse oximetry Systolic blood pressure Diastolic blood pressure Provider Name and Address Organization Details Last Updated DateTime 4 74 /min 18 /min 99 [degF] 98 % 98 % 130 mm[Hg] 74 mm[Hg] ALLAN PRADHAN NP [address] [facility], [address], [place], [address], [facility] 4 13:48:17 Date Recorded Body weight Heart rate Respiratory rate Body temperature Oxygen saturation Oxygen saturation in Arterial blood by Pulse oximetry Systolic blood pressure Diastolic blood pressure Provider Name and Address Organization Details Last Updated DateTime 4 80791.1 4 g 69 /min 16 /min 98.3 [degF] 97 % 97 % 134 mm[Hg] 64 mm[Hg] Eloina Odom NP [address] [facility], [address], [place], [address], [facility] 4 09:02:44 Date Recorded Body height Body mass index (BMI) Body weight Heart rate Respiratory rate Body temperature Oxygen saturation Oxygen saturation in Arterial blood by Pulse oximetry Inhaled oxygen flow rate Systolic blood pressure Diastolic blood pressure Provider Name and Address Organization Details Last Updated DateTime 4 167.64 cm 32.9 kg/m2 86687.1 3 g 72 /min 18 /min 97.5 [degF] 97 % 97 % 2 L/min 129 mm[Hg] 76 mm[Hg] Carlee Amezcua MD [address] [facility] [address], [place], [address], [facility] 4 22:10:41 Date Recorded Body height Body weight Body mass index (BMI) Heart rate Respiratory rate Body temperature Oxygen saturation Oxygen saturation in Arterial blood by Pulse oximetry Systolic blood pressure Diastolic blood pressure Provider Name and Address Organization Details Last Updated DateTime 4 167.64 cm 01470.2 5 g 32.8 kg/m2 74 /min 16 /min 97.9 [degF] 95 % 95 % 133 mm[Hg] 72 mm[Hg] Eloina Odom NP [address] [facility] [address], [place], [address], [facility] 4 08:16:49 Social History Question Answer Notes LastModified by Organizat ion Details LastModified Time Tobacco Smoking Status Former Smoker Not Available [employer] 08/21/2020 03:13:21 Do You Have An Advance Directive? No Full Code [id number] Information not available 08/21/2020 What Is Your Code Status? Full Code [email or web address] Information not available 09/01/2024 Do You Have A Medical Power Of Ultrasound Technol? Yes Has HCP [email or web address] Information not available 08/11/2024 What Was The Date Of Your Most Recent Tobacco Screening? 08/11/2024 [email or web address] Information not available 08/11/2024 Do You Have An Out Of Hospital DNR? Yes [email or web address] Information not available 09/01/2024 How Much Tobacco Do You Smoke? 1.5 PPD [id number] Information not available 08/21/2020 Has Tobacco Cessation Counseling Been Provided? No [email or web address] Information not available 08/11/2024 How Many Years Have You Smoked Tobacco? 25 [id number] Information not available 08/21/2020 Sex: Unknown Functional Status Question Answer Note LastModified by Organizat ion Details LastModified Time Do you use any illicit or recreational drugs? No Information not available 08/11/2024 Do you or have you ever used any other forms of tobacco or nicotine? No [email or web address] Information not available 08/11/2024 What is your level of alcohol consumption? None Information not available 08/11/2024 Mental Status None recorded. Family History Relationship [...] unspecified formulation 11/10/2021 completed Jessica gonsalez [facility] 08/10/2024 14:21:03 Past Encounters Encounter ID Performer Location Encounter Start Date Encounter Closed Date Diagnosis/Indication Diagnosis SNOMED-CT Code Diagnosis ICD10 Code Diagnosis Note [id number] MD ARMEN Urrutia [address] [place] [address] [place] [address] 06/01/2019 14:38:26 06/08/2019 15:41:33 Acute hypoxemic respiratory failure 765863908 J96.01 see HPIseconda ry to aspiration dx with dysphagiaC HF exacerbati on with recent dx of diastolic CHFmonitor respirator y functionto be scheduled for sleep study due to concern for OSAtitrate O2 in patient with baseline COPD Diastolic heart failure 637686439 I50.33 see HPIappears chronicall y ill due to multiple co-morbid conditions recent dx with diuresis of 18 liters at prior hospitaliz ationnow onlasix 40 mg bidmonitor weights and fluid statusmoni tor respirator y and renal functionti trate medication s prn Dysphagia 88476772 R13.1 2 see HPIeval by speechnow on ground mech soft dietrepeat speech eval prn Chronic ob structive pulmonary disease 60365762 J41.1 hx tobacco quit > 30 yrs priormonit or respirator y functionto be scheduled for sleep study with concern for OSApulmona ry consult prn Essential hypertension 04613914 I10 norvasc 5 mg qdlasix 40 mg bidmonitor bp and renal function Asthenia 99550181 R53.1 PT OT eval and treatmonit or fall risk Diabetes mellitus 851241 09 E11.9 hx of DMonmetfor min 1000 mg bid with 500 mg q noonglipiz nneka 5 mg bidinsulin SSmonitor blood glucose Hypothyroidism 31371036 E03.8 synthroid 200 mcg qdmonitor tsh prn Hyperlipidemia 53157462 E78.49 gemfibrozi l 600 mg bidlipitor 40 mg qd continue Obesity 492016803 E66.01 dietary eval at baseline [id number] [facility] [address] [place] [address] 06/06/2019 11:35:48 06/08/2019 16:08:53 Hypoxia 646496434 R09.02 send to ER for this d/t sat 50% on O2 with chest pain. Acute kidney injury 1466 9001 N17.9 likely d/t overdiures is. had been on lasix 40 bid, sending to ER, may need this held. Acute hypo xemic respiratory failure 450562311 J96.01 see HPIseconda ry to aspiration dx with dysphagiaC HF exacerbati on with recent dx of diastolic CHFmonitor respirator y functionto be scheduled for sleep study due to concern for OSAtitrate O2 in patient with baseline COPD Diastolic heart failure 478902381 I50.33 see HPIappears chronicall y ill due to multiple co-morbid conditions recent dx with diuresis of 18 liters at prior hospitaliz ationhere was on:lasix 40 mg bid*Now appearing dry- may need to hold diuretics at hospital. Dysphagia 37283301 R13.1 2 see HPIeval [facility] speech eval prn Chronic ob structive pulmonary disease 82019770 J41.1 hx tobacco quit > 30 yrs priorsendi ng to ER for hypoxia, chest pain, ARF [id number] ALLAN PRADHAN NP [facility] [address] 08/11/2024 10:50:24 08/15/2024 09:32:52 Acute hypoxemic respiratory failure 742481902 J96.01 [place] related to COPD and acute on chronic CHF.Respon ded well to interventi ons in hosp.Chuck nue O2 @ 2L - chronic use.Contin ue inhalers for COPD, bumex for CHF.Monito r closely Chronic ob structive pulmonary disease 35918560 J41.1 Treated for exac. in hosp. with nebs and steroids with improvetiera t.Continue O2 - uses 2L chronicall y at home.Chuck nue:duoneb prnalbuter ol MDI prn - at bedside for self administra tion.Monit or sats, resp. status for change. Pneumonia 732458388 J18. 9 Treated with ceftriaxon e and azithromyc in x 7 days with improvemen t, transition ed to Augmentin 875 mg bid x 3d and Doxy 100 mg bid x 3d upon d/c to complete a 10 day course of tx.Monitor resp. sx. Diastolic heart failure 904907193 I50.33 Treated with IV lasix in hosp., changed back to bumex 2 mg qd with improvemen t in condition. Continue bumexHeart healthy/lo w salt dietDaily VS and weightsLab s q mond. 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 if no sx. Anxiety 92458209 F41.9 Continue home meds:cymba lta 20 mg qdativan 0.5 mg tid prn (x14d, then re-eval)Ps ych referral PRNMonitor mood, behaviors Chronic ki dney disease stage 3 032661738 N18.30 Monitor labs - BMP q mond. x 3Maintain hydrationA void nephrotoxi cs Chronic pain syndrome 37 2654403 G89.4 Continue:c ymbalta 20 mg qdoxycodon e 5 mg q8 hr prnPt. states chronic low back pain, knee pain, and sacral pain due to a fractured tailbone at 20 yrs. of age) Obstructiv e sleep apnea syndrome 39581722 G47.33 Per pt.Does not use CPAP, instead wears O2 2L RTC at home. Asthenia 92891305 R53.1 Deconditio rosana due to hospitaliz ation and chronic medical conditions .PT OT eval and tx.Goal is to return home. Open wound 131964748 T14 .8XXA Open wound sacral area - [...] with minerals dailyDieta ry supplement s per printed circuit boards router Concern of potential breakdown on heels as does not allow pillow under legs to float heels due to chronic sacral pain from old fracture. Can try heel boots if cyndi. to help reduce pressure as well as skin prep qd.Monitor closely. [id number] Hal Cole MD [facility] [address] [address] 08/15/2024 12:44:18 08/17/2024 11:09:33 Asthenia 30693232 R53.1 PT OT Eval and treatmonit or fall risk and need for increased support in community Acute hypo xemic respiratory failure 351711735 J96.01 see HPI due to CHF, COPD, pneumoniao n O2 at baselinemo nitor respirator y status and need to repeat imaging Chronic ob structive pulmonary disease 74659311 J44.1 On O2 at baselineco mpleted steroid coursecont inue outpatient medsmonito r respirator y status Pneumonia 635440390 J15. 8 see HPI now to complete doxy and augmentinm onitor need to reimage Diastolic heart failure 900790292 I50.33 required IV lasix in hospital now onbumex 2 mg qdmonitor respirator y and fluid statusnote d ARF on CRF Diabetes mellitus 323713 09 E11.9 continue out patient medsmonito r need to titrate Hyperlipidemia 75002498 E78.49 medication s adjusted in hospital now onlipitor 40 mg qd Hypothyroidism 46438955 E03.8 synthroid 200 mcg qdtsh prn Gastroesop hageal reflux disease without esophagitis 171930392 K21.9 recently started on PPImonitor need to continuetr ial off in 2-4 weeks Acute kidney injury 1466 9001 N17.8 ARF on CRFmonitor renal functionav oid nephrotoxi c meds as ablenephro consult prn [id number] ALLAN PRADHAN NP [facility] [address] 08/16/2024 11:32:50 08/24/2024 10:16:43 Asthenia 19928623 R53.1 Deconditio rosana due to hospitaliz ation and chronic medical conditions .Continue PT OT eval and tx.Goal is to return home. Acute hypo xemic respiratory failure 263680776 J96.01 [place] related to COPD and acute on chronic CHF.Respon ded well to interventi ons in hosp.Chuck nue O2 @ 2L - chronic use.Contin ue inhalers for COPD, bumex for CHF.Monito r closely Chronic ob structive pulmonary disease 39219886 J41.1 Treated for exac. in hosp. with nebs and steroids with improvemen t.Continue O2 - uses 2L chronicall y at home.Chuck nue:duoneb prnalbuter ol MDI prn - at bedside for self administra tion.Monit or sats, resp. status for change. Pneumonia 753939730 J18. 9 Treated with ceftriaxon e and azithromyc in x 7 days with improvemen t, transition ed to Augmentin 875 mg bid x 3d and Doxy 100 mg bid x 3d upon d/c to complete a 10 day course of tx.Monitor resp. sx. Diastolic heart failure 038215900 I50.33 Treated with IV lasix in hosp., changed back to bumex 2 mg qd with improvemen t in condition. Continue bumexHeart healthy/lo w salt dietDaily VS and weights (reminded nursing of daily weights and record)Lab s q mond. x 3Follow for decompensa tion Pleural effusion 6079098 8 J90 s/p thoracente sismonitor Chronic ki dney disease stage 3 212299953 N18.30 Monitor labs - BMP q mond. x 3Maintain hydrationA void nephrotoxi cs Diabetes mellitus 300626 09 E11.9 A1C 7.6%BS mostly 100sContin ue home meds:basag lar 15 units qdjardianc e 10 mg qdlispro SSICarb control dietAdjust meds prn Essential hypertension 02287700 I10 Continue home meds:norva sc 10 mg qdbumex 2 mg qdMoniotor VS, labs, adjust meds prn Hyperlipidemia 79054676 E78.49 continue atorvastat in 40 mg qdgemfibro zil stopped due to interventi on with lipitor LF Ts WNRLipid panel if stays halfway Hypothyroidism 82103829 E03.8 Continue levothyrox ine 200 mcg qdTSH, FT4 prn Gastroesop hageal reflux disease without esophagitis 911536558 K21.9 ??started omeprazole 20 mg qd while in the hospitalmo nitor GI sx.conside r stopping in 6 wks. if no sx. Anxiety 75349387 F41.9 Continue home meds:cymba lta 20 mg qdativan 0.5 mg tid prn (x14d, then re-eval)Ps h referral PRNMonitor mood, behaviors Chronic pain syndrome 37 9494041 G89.4 Continue:c ymbalta 20 mg qdoxycodon e 5 mg q8 hr prnPt. states chronic low back pain, knee pain, and sacral pain due to a fractured tailbone at 20 yrs. of age) Obstructiv e sleep apnea syndrome 22820682 G47.33 Per pt.Does not use CPAP, instead wears O2 2L RTC at home. Open wound 368097247 T14 .8XXA Open wound sacral area - developed in hosp.Suspe ct started first as MASD due to chronic incontinen ce, now with opening in skin.Plan -Continue: Triad cream q shift and prnPressur e relief as much as possibleRe ferred to Wound PA-CMVI with minerals daily addedDieta ry supplement s per printed circuit boards router - currently on glucerna bid. Concern of potential breakdown on heels as does not allow pillow under legs to float heels due to chronic sacral pain from old fracture. Can try heel boots if cyndi. to help reduce pressure as well as skin prep qd.Monitor closely. [id number] ALLAN PRADHAN NP [address] [address] 08/23/2024 10:50:36 08/24/2024 10:28:22 Asthenia 66799355 R53.1 Deconditio rosana due to hospitaliz ation and chronic medical conditions .PT OT eval and tx., making gains.Goal is to return home. Acute hypo xemic respiratory failure 790276632 J96.01 [place] related to COPD and acute on chronic CHF.Respon ded well to interventi ons in hosp., currently stable.Con tinue O2 @ 2L - chronic use.Contin ue inhalers for COPD, bumex for CHF.Monito r closely Chronic ob structive pulmonary disease 54729422 J41.1 Treated for exac. in hosp. with nebs and steroids with improvemen t.Continue O2 - uses 2L chronicall y at home.Chuck nue:duoneb prnalbuter ol MDI prn - at bedside for self administra tion.Monit or sats, resp. status for change. Pneumonia 745118135 J18. 9 Treated with ceftriaxon e and azithromyc in x 7 days with improvemen t, transition ed to Augmentin 875 mg bid x 3d and Doxy 100 mg bid x 3d upon d/c to complete a 10 day course of tx.Resolvi ng, continue to monitor resp. sx. Diastolic heart failure 958171208 I50.33 Treated with IV lasix in hosp., changed back to bumex 2 mg qd with improvemen t in condition. Continue bumexHeart healthy/lo w salt dietDaily VS and weights (reminded nursing again of daily weights and record)Lab s q mond. x 3Follow for decompensa tion Pleural effusion 7277768 8 J90 s/p thoracente sismonitor Chronic ki dney disease stage 3 650487776 N18.30 Monitor labs - BMP q mond. x 2 more timesMaint ain hydrationA void nephrotoxi cs Diabetes mellitus 665031 09 E11.9 A1C 7.6%BS mostly 100sContin ue home meds:basag lar 15 units qdjardianc e 10 mg qdlispro SSICarb control dietAdjust meds prn Essential hypertension 49093019 I10 Continue home meds:norva sc 10 mg qdbumex 2 mg qdMoniotor VS, labs, adjust meds prn Hyperlipidemia 23554234 E78.49 continue atorvastat in 40 mg qdgemfibro zil stopped due to interventi on with lipitor LF Ts WNRLipid panel if stays halfway Hypothyroidism 08399549 E03.8 Continue levothyrox ine 200 mcg qdTSH, FT4 prn Gastroesop hageal reflux disease without esophagitis 402132795 K21.9 ??started omeprazole 20 mg qd while in the hospitalmo nitor GI sx.conside r stopping in 6 wks. if no sx. Anxiety 98185607 F41.9 Continue home meds:cymba lta 20 mg qdativan 0.5 mg tid prn (x14d, then re-eval)Ps ych referral PRNMonitor mood, behaviors Chronic pain syndrome 37 5749794 G89.4 Continue:c ymbalta 20 mg qdoxycodon e 5 mg q8 hr prnPt. states chronic low back pain, knee pain, and sacral pain due to a fractured tailbone at 20 yrs. of age) Obstructiv e sleep apnea syndrome 80770790 G47.33 Per pt.Does not use CPAP, instead wears O2 2L RTC at home. Open wound 270794591 T14 .8XXA Open wound sacral area - developed in hosp.Suspe ct started first as MASD due to chronic incontinen ce, now with opening in skin.Plan -Continue: Triad cream q shift and prnPressur e relief as much as possibleRe ferred to Wound PA-CMVI with minerals daily addedDieta ry supplement s per printed circuit boards router - currently on glucerna bid. Concern of potential breakdown on heels as does not allow pillow under legs to float heels due to chronic sacral pain from old fracture. Can try heel boots if cyndi. to help reduce pressure as well as skin prep qd.Monitor closely. 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 Acute hypo xemic respiratory failure 082499062 J96.01 [place] related to COPD and acute on chronic CHF.Respon ded well to interventi ons in hosp., currently stable.Con tinue O2 @ 2L - chronic use.Contin ue inhalers for COPD, bumex for CHF.Monito r closely Chronic ob structive pulmonary disease 40658819 J41.1 Treated for exac. in hosp. with nebs and steroids with improvemen t.Continue O2 - uses 2L chronicall y at home.Chuck nue:duoneb prnalbuter ol MDI prn - at bedside for self administra tion.Monit or sats, resp. status for change. Pneumonia 826873365 J18. 9 Treated with ceftriaxon e and azithromyc in x 7 days with improvemen t, transition ed to Augmentin 875 mg bid x 3d and Doxy 100 mg bid x 3d upon d/c to complete a 10 day course of tx.Resolvi ng, continue to monitor resp. sx. Diastolic heart failure 902476180 I50.33 Treated with IV lasix in hosp., changed back to bumex 2 mg qd with improvemen t in condition. Continue bumexHeart healthy/lo w salt dietDaily VS and weights (reminded nursing AGAIN of daily weights and record)Lab s q mond. x 3Follow for decompensa tion Pleural effusion 5221802 8 J90 s/p thoracente sismonitor Chronic ki dney disease stage 3 576802617 N18.30 Monitor labs - BMP q mond. x 2 more timesMaint ain hydrationA void nephrotoxi cs Diabetes mellitus 798662 09 E11.9 A1C 7.6%BS mostly 100sContin ue home meds:basag lar 15 units qdjardianc e 10 mg qdlispro SSICarb control dietAdjust meds prn Essential hypertension 05372168 I10 Continue home meds:norva sc 10 mg qdbumex 2 mg qdMoniotor VS, labs, adjust meds prn Hyperlipidemia 72700410 E78.49 continue atorvastat in 40 mg qdgemfibro zil stopped due to interventi on with lipitor LF Ts WNRLipid panel if stays halfway Hypothyroidism 27191574 E03.8 Continue levothyrox ine 200 mcg qdTSH, FT4 prn Gastroesop hageal reflux disease without esophagitis 324135945 K21.9 ??started omeprazole 20 mg qd while in the hospitalmo nitor GI sx.conside r stopping in 6 wks. if no sx. Anxiety 43942689 F41.9 Continue home meds:cymba lta 20 mg qdativan 0.5 mg tid prn (x14d, then re-eval)Ps ych referral PRNMonitor mood, behaviors Chronic pain syndrome 37 3519168 G89.4 Continue:c ymbalta 20 mg qdoxycodon e 5 mg q8 hr prnPt. states chronic low back pain, knee pain, and sacral pain due to a fractured tailbone at 20 yrs. of age) Obstructiv e sleep apnea syndrome 27125200 G47.33 Per pt.Does not use CPAP, instead wears O2 2L RTC at home. 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 Concern of potential breakdown on heels as does not allow pillow under legs to float heels due to chronic sacral pain from old fracture. Can try heel boots if cyndi. to help reduce pressure as well as skin prep qd.Monitor closely. Constipation 94308913 K5 9.00 Bowels still sluggishAl ready on miralax, now add senna-s 2 tabs daily, hold for loose stool.enco urage OOB, fiber, fluidsCont inue to monitor and adjust. [id number] ALLAN PRADHAN NP [address] [address] 09/06/2024 14:01:29 09/07/2024 10:12:43 Asthenia 08212203 R53.1 Deconditio rosana due to hospitaliz ation and chronic medical conditions .PT OT eval and tx., making gains.Goal is to return home. Acute hypo xemic respiratory failure 539231492 J96.01 [place] related to COPD and acute on chronic CHF.Respon ded well to interventi ons in hosp., currently stable.Con tinue O2 @ 2L - chronic use.Contin ue inhalers for COPD, bumex for CHF.Monito r closely Chronic ob structive pulmonary disease 35174575 J41.1 Treated for exac. in hosp. with nebs and steroids with improvemen t.Continue O2 - uses 2L chronicall y at home.Chuck nue:duoneb prnalbuter ol MDI prn - at bedside for self administra tion.Monit or sats, resp. status for change. Pneumonia 468070098 J18. 9 Treated with ceftriaxon e and azithromyc in x 7 days with improvemen t, transition ed to Augmentin 875 mg bid x 3d and Doxy 100 mg bid x 3d upon d/c to complete a 10 day course of tx.Resolvi ng, continue to monitor resp. sx. Diastolic heart failure 476639932 I50.33 Treated with IV lasix in hosp., changed back to bumex 2 mg qd with improvemen t in condition. Continue bumexHeart healthy/lo w salt dietDaily VS and weights (reminded nursing AGAIN of daily weights and record)CBC , BMP in am x 1Follow for decompensa tion Pleural effusion 9297884 8 J90 s/p thoracente sismonitor Chronic ki dney disease stage 3 938295918 N18.30 Monitor labs - BMP x 1 in amMaintain hydrationA void nephrotoxi cs Diabetes mellitus 400879 09 E11.9 A1C 7.6%BS mostly 100s - 200sContin ue home meds:basag lar 15 units qdjardianc e 10 mg qdlispro SSICarb control dietAdjust meds prn Essential hypertension 08627450 I10 Continue home meds:norva sc 10 mg qdbumex 2 mg qdMoniotor VS, labs, adjust meds prn Hyperlipidemia 67137364 E78.49 continue atorvastat in 40 mg qdgemfibro zil stopped due to interventi on with lipitor LF Ts WNRLipid 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 if no sx. Anxiety 67482694 F41.9 Continue home meds:cymba lta 20 mg qdativan 0.5 mg tid prn (x14d, then re-eval)Ps ych referral PRNMonitor mood, behaviors Chronic pain syndrome 37 6586534 G89.4 Continue:c ymbalta 20 mg qdoxycodon e 5 mg q8 hr prnPt. states chronic low back pain, knee pain, and sacral pain due to a fractured tailbone at 20 yrs. of age) Obstructiv e sleep apnea syndrome 07872021 G47.33 Per pt.Does not use CPAP, instead wears O2 2L RTC at home. Open wound 039257271 T14 .8XXA Open wound sacral area - developed in hosp.[place] ct started first as MASD due to chronic incontinen ce, now with opening in skin.Had been referred to Wound PA-C in house, but has not been seen.Fortu nately the area is improving. 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 Concern of potential breakdown on heels as does not allow pillow under legs to float heels due to chronic sacral pain from old fracture. Can try heel boots if cyndi. to help reduce pressure as well as skin prep qd.Monitor closely. Constipation 86426944 K5 9.00 No BM since 08/31 if documentat ion correct.WA N bowel meds not used.Curre ntly on miralax daily.Torrey a-s 2 tabs bid ordered 09/01, currently not on MARAbdomen distended. Plan -Fleets nowMag Citrate 1/2 bottle today, repeat 1/2 bottle in am if poor results.In crease miralax to bidRe-orde r senna-s 2 tabs bid, hold for loose stoolMonit or closely.en courage OOB, fiber, fluidsCont inue to monitor and adjust. [id number] ALLAN PRADHAN NP [address] [address] 09/08/2024 13:47:32 09/09/2024 11:13:19 Constipation 46386327 K59.00 No BM since 08/31 if documentat ion correct.WA N bowel meds had not been utilized. Mag Citrate and fleets ordered with very good results. Now on:Miralax bidSenna-s 2 tabs bid Plan -Continue current laxativesE ncourage OOB, fiber, fluidsCont inue to monitor closely and adjust PRN Asthenia 11343938 R53.1 Deconditio rosana due to hospitaliz ation and chronic medical conditions .PT OT eval and tx., making gains.Goal is to return home. Open wound 324040405 T14 .8XXA Open wound sacral area - developed in hosp.[place] ct started first as MASD due to chronic incontinen ce, now with opening in skin.Had been referred to Wound PA-C in house, but has not been seen.Fortu nately the area is improving. 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 Concern of potential breakdown on heels as does not allow pillow under legs to float heels due to chronic sacral pain from old fracture. Can try heel boots if cyndi. to help reduce pressure as well as skin prep qd.Monitor closely. Acute hypo xemic respiratory failure 580511674 J96.01 [place] related to COPD and acute on chronic CHF.Respon ded well to interventi ons in hosp., currently stable.Con tinue O2 @ 2L - chronic use.Contin ue inhalers for COPD, bumex for CHF.Monito r closely Chronic ob structive pulmonary disease 28586898 J41.1 Treated for exac. in hosp. with nebs and steroids with adamaris t.Continue O2 - uses 2L chronicall y at home.Chuck nue:duoneb prnalbuter ol MDI prn - at bedside for self administra tion.Monit or sats, resp. status for change. Pneumonia 664867163 J18. 9 Treated with ceftriaxon e and azithromyc in x 7 days with adamaris t, transition ed to Augmentin 875 mg bid x 3d and Doxy 100 mg bid x 3d upon d/c to complete a 10 day course of tx.Resolvi ng, continue to monitor resp. sx. Diastolic heart failure 709511542 I50.33 Treated with IV lasix in hosp., changed back to bumex 2 mg qd with adamaris t in condition. Continue bumexHeart healthy/lo w salt dietDaily VS and weights (reminded nursing AGAIN of daily weights and record)CBC , BMP in am x 1Follow for decompensa tion Pleural effusion 3164852 8 J90 s/p thoracente sismonitor Chronic ki dney disease stage 3 700889054 N18.30 Monitor labs - BMP x 1 in amMaintain hydrationA void nephrotoxi cs Diabetes mellitus 235054 09 E11.9 A1C 7.6%BS mostly 100s - 200sContin ue home meds:basag lar 15 units qdjardianc e 10 mg qdlispro SSICarb control dietAdjust meds prn Essential hypertension 86434099 I10 Continue home meds:norva sc 10 mg qdbumex 2 mg qdMoniotor VS, labs, adjust meds prn Hyperlipidemia 29477828 E78.49 continue atorvastat in 40 mg qdgemfibro zil stopped due to interventi on with lipitor LF Ts 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 if no sx. Anxiety 91492118 F41.9 Continue home meds:cymba lta 20 mg qdativan 0.5 mg tid prn (x14d, then re-eval)Ps ych referral PRNMonitor mood, behaviors Chronic pain syndrome 37 9792643 G89.4 Continue:c ymbalta 20 mg qdoxycodon e 5 mg q8 hr prnPt. states chronic low back pain, knee pain, and sacral pain due to a fractured tailbone at 20 yrs. of age) Obstructiv e sleep apnea syndrome 02161818 G47.33 Per pt.Does not use CPAP, instead wears O2 2L RTC at home. [id number] Eloina Odom NP [address] [address] 09/14/2024 09:01:39 09/15/2024 09:07:05 Constipation 69169330 K59.00 resolvedMa g Citrate and fleets ordered with very good results.Miralax daily09/14 change Senna-s 2 tabs from bid to dailyEncou rage OOB, fiber, fluidsCont inue to monitor closely and adjust PRN Asthenia 99910947 R53.1 Deconditio rosana due to hospitaliz ation and chronic medical conditions .PT OT eval and tx., making gains.Goal is to return home. Open wound 506370535 T14 .8XXA Open wound sacral area - developed in hosp.[place] ct started first as MASD due to chronic incontinen ce, now with opening in skin.Had been referred to Wound PAZari in house, but has not been seen.area is improving. 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 Concern of potential breakdown on heels as does not allow pillow under legs to float heels due to chronic sacral pain from old fracture. Can try heel boots if cyndi. to help reduce pressure as well as skin prep qd.Monitor closely. Acute hypo xemic respiratory failure 785623334 J96.01 [place] related to COPD and acute on chronic CHF.Respon ded well to interventi ons in hosp., currently stable.Con tinue O2 @ 2L - chronic use.Contin ue inhalers for COPD, bumex for CHF.Monito r closely Chronic ob structive pulmonary disease 15467943 J41.1 Treated for exac. in hosp. with nebs and steroids with adamaris t.Continue O2 - uses 2L chronicall y at home.Chuck nue:duoneb prnalbuter ol MDI prn - at bedside for self administra tion.Monit or sats, resp. status for change. Pneumonia 543550019 J18. 9 resolvedTr eated with ceftriaxon e and azithromyc in x 7 days with adamaris t, transition ed to Augmentin 875 mg bid x 3d and Doxy 100 mg bid x 3d upon d/c to complete a 10 day course of tx.Resolvi ng, continue to monitor resp. sx.monitor for need to repeat cxr if resp symptoms persist/re turn Diastolic heart failure 312592098 I50.33 Treated with IV lasix in hosp.,harding ged back to bumex 2 mg qd with improvemen t in condition. Heart healthy/lo w salt dietDaily VS and weightspt currently 218, will need another weight(8 lb increase since admit)nsg awareFollo w for decompensa tionmonito rbmp and cbc maggi 09/15 Pleural effusion 5535872 8 J90 stable without increased work of breathings /p thoracente sis from hospmonito r Chronic ki dney disease stage 3 789825553 N18.30 bmp and cbc as above, monitor need to continueMa intain hydrationA void nephrotoxi cs Diabetes mellitus 903622 09 E11.9 A1C 7.6%BS mostly 100s - 200sContin ue :basaglar 15 units qdjardianc e 10 mg qdlispro SSICarb control dietAdjust meds prn Essential hypertension 04658615 I10 Continue:n orvasc 10 mg qdbumex 2 mg qdMoniotor VS, labs, adjust meds prn Hyperlipidemia 32568952 E78.49 continueat orvastatin 40 mg qdgemfibro zil stopped due to interventi on with lipitor LF Ts 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 started while in the hospital)m onitor GI sx.conside r stopping in 6 wks. if no sx. Anxiety 54532016 F41.9 Continue :cymbalta 20 mg qdativan 0.5 mg tid prn (x14d, then re-eval)ev al on 121Psych referral PRNMonitor mood, behaviors Chronic pain syndrome 37 5071259 G89.4 Continue:c ymbalta 20 mg qdoxycodon e 5 mg q8 hr prnPt. states chronic low back pain, knee pain, and sacral pain due to a fractured tailbone at 20 yrs. of age) Obstructiv e sleep apnea syndrome 20647894 G47.33 Per pt.Does not use CPAP, instead wears O2 2L RTC at home. [id number] Carlee Amezcua MD [address] [address] 09/27/2024 20:05:35 09/28/2024 10:42:39 Diastolic heart failure 593096648 I50.33 Appears euvolemic. Last wt on 09/24 was down 5# from previous wt.Daily wts have been ordered 4 times and not being done.Wts ordered for M/W/FConti nue Bumex 2 mg qd.Monitor resp. status, fluid status, wts and labs. Asthenia 75927298 R53.1 Improved back to baseline per pt.Unclear if rehab agrees.Molina villareal have SS consult with rehab and pt tomorrow to see if ready for d/c. Open wound 127230378 T14 .8XXA Resolved.C ontinue good skin care to prevent reopening. Acute hypo xemic respiratory failure 466189431 J96.01 Resolved.A s above. Chronic ob structive pulmonary disease 19790961 J41.1 Back to baseline per pt.Continu e atrovent 2 puffs q 6 hrs prn.Contin ue supplement al O2 titrated to sats >90%Monito r resp status. Pleural effusion 3812279 8 J90 Thought to be due to PNA and CHF.Txed with abxs and thoracente sis.No f/u needed unless increased sxs.Monito r resp status Chronic ki dney disease stage 3 538986113 N18.32 Back to baseline.C ontinue to avoid nephrotoxi c meds as able.Monit or labs.Renal consult prn. Diabetes mellitus 635631 09 E11.9 Sugars in adequate control.Co ntinue basaglar 15 units qd, jardiance 10 mg qd and SSIMonitor fingerstic ks TID and HgA1C q 3 months. Essential hypertension 05483867 I10 In good control since here.Chuck nue amlodipine 10 mg qd and bumex 2 mg qdMonitor BP and labs. Hyperlipidemia 26316943 E78.49 Continue atorvastat in 40 mg qdMonitor labs as outpt Hypothyroidism 05210577 E03.8 Continue levothyrox ine 200 mcg qdI can't find a TSH in [facility] or [facility] systems.Wi ll order for AM Gastroesop hageal reflux disease without esophagitis 782028666 K21.9 No current sxs.Contin ue omeprazole 20 mg qdMonitor GI sx. Pneumonia 900416644 J18. 9 Resolved Anxiety 83980944 F41.1 Mood good tonight.Co ntinue Cymbalta 20 mg qd and lorazepam 0.5 mg TID prn.Monito r mood.Psych following. Chronic pain syndrome 37 6480677 G89.4 Continue meds as above and oxycodone 5 mg q 8 hrs prn and APAP 650 mg q 4 hrs prn.Monito r sxs. Obstructiv e sleep apnea syndrome 97519963 G47.33 Not on CPAP.F/U as outpt. [id number] Eloina Odom NP [facility] [address] [address] 09/30/2024 08:15:34 10/03/2024 13:20:59 Diastolic heart failure 359727758 I50.33 Appears euvolemic. weight 203 on 09/24 last, down approx 5 lbs hereweight daily at homeContin ue Bumex 2 mg qd.Monitor resp. status, fluid status, at home with services and pcp outpt Asthenia 45817350 R53.1 Improved back to baseline per pt.Unclear if rehab agrees but pt insistent on going home.Pt able to walk approx 75 feet with walker and at baseline prior to hospitaliz ationmonit or with pcp outpt Chronic ob structive pulmonary disease 70167737 J41.1 Back to baseline per pt.Continu e atrovent 2 puffs q 6 hrs prn.Contin ue supplement al O2 2at liters baseline and titrated to sats >90%Monito r resp status outpt with pcp and services Pleural effusion 5146292 8 J90 Thought to be due to PNA and CHF.Txed with abxs and thoracente sis.No f/u needed unless increased sxs.Monito r resp status outpt with pcp Acute hypo xemic respiratory failure 341545241 J96.01 Resolved.A s above. Chronic ki dney disease stage 3 830387850 N18.32 Back to baseline. cr 1.5-1.9Con tinue to avoid nephrotoxi c meds as able.Monit or labs outpt with pcpRenal consult prn outpt Diabetes mellitus 204502 09 E11.9 Sugars in adequate control.mo stly 100-200sCo ntinue basaglar 15 units qd, jardiance 10 mg qd and SSIMonitor fingerstic ks TID and HgA1C q 3 months with pcp outpt Essential hypertension 00699431 I10 In good control since here.Chuck nue amlodipine 10 mg qd and bumex 2 mg qdMonitor BP and labs outpt with pcp prn Hyperlipidemia 14841977 E78.49 Continue atorvastat in 40 mg qdMonitor outpt with pcp Open wound 639214021 T14 .8XXA Resolved.C ontinue good skin care to prevent reopening. Hypothyroidism 76251367 E03.8 Continue levothyrox ine 200 mcg qdmonitor oupt with pcp Gastroesop hageal reflux disease without esophagitis 805393151 K21.9 No current sxs.Contin ue omeprazole 20 mg qdMonitor GI sx. outpt with pcp Pneumonia 081313806 J18. 9 Resolved Anxiety 78998941 F41.1 Mood good tonight.Co ntinue Cymbalta 20 mg qd and lorazepam 0.5 mg TID prn.Monito r mood outpt with pcp Chronic pain syndrome 37 1216973 G89.4 Continue meds as above and oxycodone 5 mg q 8 hrs prn and APAP 650 mg q 4 hrs prn.Monito r sxs. outpt with pcp Obstructiv e sleep apnea syndrome 65084518 G47.33 Not on CPAP.F/U as outpt Health Concerns Section Related Observation LastModified by Organization Detai ls LastModified Time None Recorded Concern Status LastModified by Organization Details LastModified Time None Recorded Advance Directives Directive N: Full Code Payers Encounter Date Sequence Insurance Name Policy Number Policy Tidwell Covered Member ID [place]idwell Member ID Guarantor Name 09/06/2024 1 [place] [employer] Radhika Vaca [id number] Radhika Vaca 09/06/2024 2 [place] [facility] Radhika Vaca [id number] Radhika Vaca 09/08/2024 1 [place] [employer] Radhika Vaca [id number] Radhika Vaca 09/08/2024 2 [place] [facility] Radhika Vaca [id number] Radhika Vaca 09/14/2024 1 MEDICARE B-[place]: [facility] Radhika Vaca [id number] Radhika Vaca 09/14/2024 2 [place] [facility] Radhika Vaca [id number] Radhika Vaca 09/27/2024 1 MEDICARE B-[place]: [facility] Radhika Vaca [id number] Radhika Vaca 09/27/2024 2 [place] [facility] Radhika Vaca [id number] Radhika Vaca 09/30/2024 1 MEDICARE B-[place]: [facility] Radhika Vaca [id number] Radhika Vaca 09/30/2024 2 [place] [facility] Radhika Vaca [id number] Radhika Vaca Notes Date Note Type Note Provider Name and Address Organization Details Recorded Time 09/06/2024 text/html Radhika is seen today for a routine, 30 day visit. She is a 78 yo lady, admitted to [facility] 08/09/24 from [facility] for continued care and rehab after a [...] O2 use.Full code ALLAN PRADHAN NP [address] , [address], [place], [address], [facility] - [employer] 09/06/2024 15:00:32 09/08/2024 text/html Radhika is seen today for an acute visit. She is a 78 yo lady, admitted to [facility] 08/09/24 from [facility] for continued care and rehab after a [...] O2 use.Full code ALLAN PRADHAN NP [address], [address], [place], [address], [facility] [employer] 09/08/2024 13:56:51 09/14/2024 text/html Radhika is seen today for an acute rounding visit. PMH: anxiety, CKD3, COPD, chronic pain, DM, CHF, dysphagia, HTN, HLD, hypothyroid, LBBB, morbid obesity, pernicious anemia, TEZ, chronic O2 use.Full code She is a 78 yo lady, admitted to [facility] 08/09/24 from [facility] for continued care and rehab after a a brief hosp. due to resp. failure (COPD, PNA, CHF) and MARJORIE on CKD (cardiorenal syndrome). Also developed a sacral wound during admission. While here at [facility]:Radhika is doing well and working with [...] mod. fall risk Eloina Odom, [facility] [address], [address], [place], [place], [address], [employer] 09/14/2024 09:44:48 09/27/2024 text/html This is a [...] anemia, LBBB, and TEZ. Carlee Amezcua MD [address] [place] [address], [address], [place], [address], [facility] [employer] 09/28/2024 02:15:34 09/30/2024 text/html Pt is a [...] transferred here for STR. Since here at [facility]: She had a sacral wound treated [...] home with o2. 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 Breathing non labored. Eloina Odom NP [address], [address], [place], [address], [facility] - [employer] 09/30/2024 08:56:26 OBGyn Episode No OBEpisode recorded.
--- OUTSIDE RECORDS SUMMARY | 2025-03-15 15:07 | XMS_ITS | Clinical Summary ---
Author Organization [facility] Address [address] [place] [address] Phone Care Team Providers Care Typesetter Perforator Operator Name Role Phone Neida Mirza MD Primary Care Provider [phone] Allergies Active Allergy Reactions Criticality Noted Date [...] this topic Insurance Medicare Medicare Care Teams Typesetter Perforator Operator Relationship Specialty Start Date End Date Neida Mirza MD [address] [place], [place] PCP - General 11/05/20
--- OUTSIDE RECORDS SUMMARY | 2025-03-15 15:07 | XMS_ITS | Clinical Summary ---
Author Organization [address] [facility] Address [address] [place] [address] Phone Care Team Providers Care Library Specialist Name Role Phone Hal Cole MD Primary Care Provider [phone] Social History Tobacco Use Types Packs/Day Years [...] LAB CHEMISTRY METHOD 09/28/2024 12:06 PM EST [facility] Comment:Calculation based on the??Chronic Kidney Disease Epidemiology Collaboration (CKD-EPI) equation refit??without adjustment for race. BUN/Creatinine Ratio 36.6 LAB CHEMISTRY METHOD 09/28/2024 12:06 PM EST [facility] Calcium 8.3(L) 8.5 - 10.5 mg/dL LAB CHEMISTRY METHOD 09/28/2024 12:06 PM EST [facility] Blood Venous blood specimen / Unknown Venipuncture / Unknown 09/28/2024 7:04 AM EST 09/28/2024 11:03 AM EST us Hal Cole MD LAB BLOOD ORDERABLES Final Resul t [facility] [address] [place] [address], from Last 3 Months or Most Recently Relevant to Health Maintenance Insurance MEDICAID - [place] MEDICARE Care Teams Library Specialist Relationship Specialty Start Date End Date Hal Cloe MD [address] [place] [address], [address] PCP - General Family Medicine 09/15/24
[2025-03-15 15:16] VITALS: BP 154/66; PULSE 78; RESP 26; TEMP 36.7; O2SAT 97
--- NOTE | 2025-03-15 15:16 | MHC.PC.OV ---
Vital Signs 03/15/25 15:16 Height 5 ft 5 in BP 154/66 H Blood Pressure Location Rt brachial Position Sitting Respiration 26 H Pulse 78 Pulse Source Pulse Oximeter Temp 98.1 F Temp Source Oral Pulse Oximetry (%) 97 Oxygen Delivery Method Nasal Cannula Oxygen Flow Rate 2 Intake Visit Reasons: re-establish care not seen since 2020 Intake Note: Patient is a new patient here to re-establish care; Last seen in 2020. Manager Language Required: No Accompanied by: Son Allergies ibuprofen [From Motrin] Allergy (Unknown, Verified 03/15/25 15:42) swelling codeine [CODEINE] Adverse Reaction (Unknown, Verified 03/15/25 15:42) SLEEPY Medication List - Last Reconciled 03/15/25 by SHASHI Miller albuterol sulfate 90 mcg/actuation (Ventolin HFA) 2 puffs inhalation Q6H PRN atorvastatin 40 mg PO BEDTIME 90 days blood sugar diagnostic (Accu-Chek Guide test strips) Use 1 test strip once a day blood sugar diagnostic (Accu-Chek Odilia Plus test strips) Use 1 test strip once a day empagliflozin (Jardiance) 10 mg PO DAILY furosemide 40 mg PO DAILY gemfibrozil 600 mg PO BID insulin glargine (Basaglar KwikPen U-100 Insulin) 25 units (0.25 mL) subcut BEDTIME 30 days insulin syringe-needle U-100 (BD Insulin Syringe Ultra-Fine) Use 1 needle once a day lancets (Accu-Chek Softclix Lancets) Use 1 lancet once a day levothyroxine 200 mcg PO DAILY@0600 90 days [Lift chair As directed] pen needle, diabetic (1st Tier Unifine Pentips) Use 1 pen needle once a day sertraline 50 mg PO DAILY sodium bicarbonate 650 mg PO DAILY sodium zirconium cyclosilicate (Lokelma) 10 grams PO DAILY Tobacco use date assessed: 03/15/25 Fall risk assessment: No Falls in past year Last assessed Fall Risk: 03/15/25 Dental Screening Dental Screen Date: 03/15/25 Did you have a dental visit in the last 12 months?: No Did you have a dental problem in the last 6 months where you did not have access to dental care?: No Was dental information given to patient?: No HPI re-establish care not seen since 2020 HPI Details bp 154/62 The patient legs are extremely dry and LEGS DRIED UP areas, off her blood pressure, reordered. 3 liters 24 hours. [facility] Medical History COPD (chronic obstructive pulmonary disease) Generalized anxiety disorder CHF (congestive heart failure) Anemia Herpes zoster MARJORIE (acute kidney injury) Left bundle branch block Morbid obesity Chronic pain syndrome Anxiety Pernicious anemia CHF (congestive heart failure) Hypothyroidism Essential hypertension Diabetes mellitus Pure hypercholesterolemia Surgical History H/O left knee surgery Deficient knowledge of leg surgery History of tonsillectomy and adenoidectomy History of appendectomy Family History Father CVD (cardiovascular disease) Mother No problems noted. Family/Other FH: mental illness Social History Household Members: Children and Caregiver Household Members Other:: 2 Housing: House Do you presently have visiting nurse or other home services: No Alcohol intake: unknown Patient Tobacco Use Status: Former Tobacco user Tobacco use type: Cigarette e-Cigarette/Vaping Use: Never Used Second Hand Smoke Exposure: No Advance Directives Date on File: 06/24/24 service: No Current occupational status: disabled Cognitive needs: Yes (Wheelchair, Lift chair) Hearing needs: No Vision needs: Yes (Glasses) Questionnaire PHQ-9 Over the last 2 weeks, how often have you been bothered by any of the following problems? 1. Little interest or pleasure in doing things: not at all 2. Feeling down, depressed, or hopeless: not at all 3. Trouble falling or staying asleep, or sleeping too much: not at all 4. Feeling tired or having little energy: not at all 5. Poor appetite or overeating: not at all 6. Feeling bad about yourself - or that you are a failure or have let yourself or your family down: not at all 7. Trouble concentrating on things, such as reading the newspaper or watching television: not at all 8. Moving or speaking so slowly that other people could have noticed. Or the opposite - being so fidgety or restless that you have been moving around a lot more than usual: not at all 9. Thoughts that you would be better off or of hurting yourself in some way: not at all Total score: 0 Depression Screening Interpretation: Negative Depression Screening Done: Yes 63802 - PHQ-9 Billing: Yes Source: Developed by Drs. Valeriano Max, Tianna Reynolds, Glenroy Parra and colleagues, with an educational alexa from [employer]. Thrive Questionnaire Date Thrive assessed: 03/15/25 I am a: Patient What is your living situation today?: I have a steady place to live Within the past 12 months, did the food you bought not last and you didn't have the money to get more?: Never true Within the past 12 months, did you worry whether your food would run out before you got money to buy more?: Never true Do you have trouble paying for medicines?: No Do you have trouble getting transportation to medical appointments?: No Do you have trouble paying your heating and electricity bill?: No Do you have trouble taking care of your child, family member or friend?: I choose not to answer this question Do you have trouble with day-to-day activities such as bathing, preparing meals, shopping, managing finances, etc.?: No Are you currently unemployed and looking for a job?: No Are you interested in more education?: No Please select the resources that you would like help with: None Currently or been in a relationship where the following occur: No concerns reported THRIVE Score: 0 AUDIT C Alcohol Use Questionnaire (AUDIT-C) 1. How often do you have a drink containing alcohol?: Never Total Score: 0 Score Reviewed/Action Taken: No ARGELIA-7 AMB Questionnaire ARGELIA-7 Date ARGELIA - 7 assessed: 03/15/25 Feeling nervous, anxious, or on edge: 0 = Not at all Not being able to stop or control worryin = Not at all Worrying too much about different things: 0 = Not at all Trouble relaxin = Not at all Being so restless that it is hard to sit still: 0 = Not at all Becoming easily annoyed or irritable: 0 = Not at all Feeling afraid as if something awful might happen: 0 = Not at all Total ARGELIA-7 score (0-4 normal; 5-9 mild; 10-14 moderate; 15-21 severe): 0 Source: Developed by Drs. Valeriano Max, Tianna Reynolds, Glenroy Parra and colleagues, with an educational alexa from [employer]. ARGELIA-7 Assessment Billing ARGELIA-7 Assessment Tool: ARGELIA-7 Assessment 50775 Physical exam (Primary Care) Vital Signs: Last Vital Signs Temp 98.1 F 03/15/25 15:16 Pulse 78 03/15/25 15:16 Resp 26 H 03/15/25 15:16 BP 154/66 H 03/15/25 15:16 Pulse Ox 97 03/15/25 15:16 Oxygen Delivery Method Nasal Cannula 03/15/25 15:16 Oxygen Flow Rate 2 03/15/25 15:16 Tobacco/Smoking Status: Tobacco use Status Tobacco use date assessed 03/15/25 03/15/25 15:35 Patient Tobacco Use Status Former Tobacco user 03/15/25 15:35 Tobacco use type Cigarette 03/15/25 15:35 e-Cigarette/Vaping Use Never Used 03/15/25 15:35 PHQ-9: PHQ-9 Score PHQ-9: Total score 0 03/15/25 16:15 Depression Screening Interpretation: Negative Thrive Assessment: Date of Thrive Assessment Date Thrive assessed 03/15/25 03/15/25 15:35 Currently or been in a relationship where the following occur: No concerns reported Results AMB Hemoglobin A1c AMB Hemoglobin A1c 8.0 % Last Edit by MICHAEL Baird on 03/15/25 16:15 Results Reviewed Results Reviewed: Laboratory Last Values Hgb A1c (Clinic) 8.0 % (4.0-6.0) H 03/15/25 16:12 Coding Additional Codes ARGELIA-7 Assessment Billing - ARGELIA-7 Assessment Tool: ARGELIA-7 Assessment 39367 ([id number]) PHQ-9 - 76392 - PHQ-9 Billing: Yes ([id number]) Assessment & Plan Assessment & Plan Orders: Orders AMB Hemoglobin A1c Today Z13.9 - Encounter for screening, unspecified Medications: New amlodipine 5 mg PO DAILY 90 tabs 2RF ammonium lactate 12% 1 appl topical BID 400 grams 3RF Changed From insulin syringe-needle U-100 (BD Insulin Syringe Ultra-Fine) Use 1 needle once a day 100 ea 3RF E11.9 - Type 2 diabetes mellitus without complications To insulin syringe-needle U-100 Use 1 needle once a day 100 ea 3RF E11.9 - Type 2 diabetes mellitus without complications Refilled atorvastatin 40 mg PO BEDTIME 90 tabs 3RF 90 days E78.00 - Pure hypercholesterolemia, unspecified blood sugar diagnostic (Accu-Chek Odilia Plus test strips) Use 1 test strip once a day 100 ea 1RF E11.9 - Type 2 diabetes mellitus without complications furosemide 40 mg PO DAILY 90 tabs 0RF gemfibrozil 600 mg PO BID 180 tabs 1RF lancets (Accu-Chek Softclix Lancets) Use 1 lancet once a day 100 ea 3RF E11.9 - Type 2 diabetes mellitus without complications levothyroxine 200 mcg PO DAILY@0600 90 tabs 0RF 90 days sodium bicarbonate 650 mg PO DAILY 90 tabs 0RF sodium zirconium cyclosilicate (Lokelma) 10 grams PO DAILY 90 ea 0RF albuterol sulfate 90 mcg/actuation (Ventolin HFA) 2 puffs inhalation Q6H PRN 6.7 grams 0RF shortness of breath or wheezing J43.2 - Centrilobular emphysema blood sugar diagnostic (Accu-Chek Guide test strips) Use 1 test strip once a day 100 ea 3RF E11.9 - Type 2 diabetes mellitus without complications empagliflozin (Jardiance) 10 mg PO DAILY 90 tabs 1RF insulin glargine (Basaglar KwikPen U-100 Insulin) 25 units (0.25 mL) subcut BEDTIME 7.5 mL 0RF 30 days pen needle, diabetic (1st Tier Unifine Pentips) Use 1 pen needle once a day 100 ea 4RF E11.9 - Type 2 diabetes mellitus without complications sertraline 50 mg PO DAILY 90 tabs 0RF
== END 2025-03-15 16:31 | disposition home or self-care (01) ==
PROVIDERS: PCP Internal Medicine
DX: Z13.9 Encounter for screening, unspecified (principal)

== ENCOUNTER → 2025-03-15 15:00 | Outpatient (BNVA) | payer MEDICARE, MEDICAID, SELFPAY | PROVIDERS: PCP Internal Medicine | DX: J43.2 Centrilobular emphysema (principal); L98.429 Non-pressure chronic ulcer of back with unspecified severity; E78.00 Pure hypercholesterolemia, unspecified; E03.9 Hypothyroidism, unspecified; F41.1 Generalized anxiety disorder; L85.9 Epidermal thickening, unspecified; I12.9 Hypertensive chronic kidney disease with stage 1 through stage 4 chronic kidney disease, or unspecified chronic kidney disease; E11.22 Type 2 diabetes mellitus with diabetic chronic kidney disease; N18.9 Chronic kidney disease, unspecified | CPT/HCPCS: 83036; 96127; 99212 ==

== ENCOUNTER 2025-04-03 09:53 | Inpatient (IN) | payer MEDICARE, OTHER, SELFPAY ==
[2025-04-03] VITALS (13 sets, daily range): BP systolic 119–158; BP diastolic 28–77; PULSE 52–84; RESP 14–30; TEMP 2.3–37; O2SAT 96–100; BMI 42.9
--- NOTE | ~2025-04-03 | XR_ITS ---
EXAMINATION: XR CHEST CLINICAL INFORMATION: sob, dyspnea COMPARISON: 04/04/2025 TECHNIQUE: Frontal view of the chest was obtained. FINDINGS: The cardiac silhouette is enlarged. Pulmonary vascularity is more distinct on the current examination but there are are persistent groundglass and interstitial opacities, greatest in the right lung base. There is mild blunting of the left costophrenic angle. Otherwise stable.. XR/XR chest 1V IMPRESSION: Cardiomegaly and mild improved lung markings suggests improving pulmonary edema/vascular congestion with possible trace left pleural effusion. Electronically signed by: Sheldon Carrasquillo MD 04/05/2025 03:28 PM EDT
--- NOTE | ~2025-04-03 | XR_ITS ---
CLINICAL HISTORY: dyspnea. ?pulm edema 1 view chest x-ray Comparison: CR - XR CHEST 1V - 02/28/25 06:33 EDT Findings: Diffuse interstitial prominence in both lungs. No significant pleural effusion or pneumothorax. Normal size heart. No acute fracture. IMPRESSION: 1. Diffuse interstitial prominence in both lungs may represent pulmonary edema/pulmonary vascular congestion. This document has been electronically signed by: Trisha Esquivel MD on 04/04/2025 22:05:05
--- NOTE | ~2025-04-03 | US_ITS ---
EXAMINATION: Ultrasound renal bilaterally. CLINICAL INFORMATION: MARJORIE on CKD. COMPARISON: Ultrasound dated November 02, 2024. Correlated to CT dated October 2024. TECHNIQUE: Real-time ultrasound of the kidneys using grayscale technique. FINDINGS: Inadequate evaluation of the kidneys due to patient's body habitus. No gross hydronephrosis in either kidney. Right kidney measures 9 x 3 x 4 cm. Left kidney measures 10 x 4 x 4 cm. There is a 2.0 cm exophytic anechoic lesion in the lower pole right kidney. US/US renal BI IMPRESSION: Limited examination demonstrated no gross hydronephrosis. 2 cm exophytic cystic lesion, right kidney. Electronically signed by: Jorge Blancas MD 04/07/2025 11:03 AM EDT
--- NOTE | ~2025-04-03 | XR_ITS ---
EXAMINATION: XR CHEST CLINICAL INFORMATION: CP, SOB COMPARISON: February 28, 2025 TECHNIQUE: Frontal view of the chest was obtained. FINDINGS: The cardiac size is is enlarged. There is progressive crowding and mild prominence of pulmonary vascularity. There is blunting of the costophrenic angles. XR/XR chest 1V IMPRESSION: Cardiomegaly with pulmonary vascular congestion and small pleural effusions. Electronically signed by: Sheldon Carrasquillo MD 04/03/2025 11:15 AM EDT
--- NOTE | 2025-04-03 10:36 | PC.NURSE ---
Pt roomed and placed on Full monitor- NAD states when is somebody going to fix my breathing I need a BIPAP. Pt VSS RR betwene 16-22 on 3LPM at 100%.
--- NOTE | 2025-04-03 10:42 | ED_ITS ---
HPI - General Adult General Chief complaint: Upper Respiratory Symptoms Stated complaint: SOB,99%,CLEAR,ANXIOUS PER EMS Time Seen by Provider: 04/03/25 10:41 Source: patient and RN notes reviewed Mode of arrival: ambulatory Limitations: no limitations History of Present Illness ED Provider: Selin Sheikh PA-C HPI narrative: This is a 79-year-old female, with a past medical history of COPD on 3L NC, pulmonary hypertension and right heart failure, hypertension, diabetes mellitus, CKD-III, hyperlipidemia, hypothyroidism, and mood disorderwho presents emergency department with concerns of shortness of breath. Patient reports that this started last night. Patient denies any recent fevers or chills. She reports chest tightness, no chest pain. She denies any significant lower extremity swelling however does report that she does have some swelling to her lower extremities. She did use her inhaler at home which did not provide her with any relief. She denies any abdominal pain, nausea, vomiting or diarrhea. She has a catheter, denies any changes to her urinary status. Denies any diarrhea or constipation. No other complaints or concerns at this time. MD complaint: Shortness of breath Onset (ago): day(s) Quality: aching Pain Consistency: constant Relieving factors: none Exacerbating factors: none Associated symptoms: denies other symptoms Treatments prior to arrival: none Related Data Previous Rx's ?Medication ?Instructions ?Recorded Lift chair #1 ea 01/19/25 amlodipine 5 mg tablet 5 mg PO DAILY #90 tabs 03/15/25 ammonium lactate 12 % lotion 1 appl topical BID #400 grams 03/15/25 atorvastatin 40 mg tablet 40 mg PO BEDTIME 90 days #90 tabs 03/15/25 blood sugar diagnostic (Accu-Chek #100 ea 03/15/25 Odilia Plus test strips) blood sugar diagnostic (Accu-Chek #100 ea 03/15/25 Guide test strips) empagliflozin 10 mg tablet 10 mg PO DAILY #90 tabs 03/15/25 (Jardiance) furosemide 40 mg tablet 40 mg PO DAILY #90 tabs 03/15/25 gemfibrozil 600 mg tablet 600 mg PO BID #180 tabs 03/15/25 insulin syringe-needle U-100 0.5 #100 ea 03/15/25 mL 31 gauge x 5/16 lancets (Accu-Chek Softclix #100 ea 03/15/25 Lancets) levothyroxine 200 mcg tablet 200 mcg PO DAILY@0600 90 days #90 03/15/25 tabs pen needle, diabetic 31 gauge x #100 ea 03/15/25/ (1st Tier Unifine Pentips) sertraline 50 mg tablet 50 mg PO DAILY #90 tabs 03/15/25 sodium bicarbonate 650 mg tablet 650 mg PO DAILY #90 tabs 03/15/25 sodium zirconium cyclosilicate 10 10 g PO DAILY #90 ea 03/15/25 gram oral powder packet (Lokelma) insulin glargine 100 unit/mL (3 25 unit (0.25 mL) subcut BEDTIME 03/23/25 mL) subcutaneous pen (Basaglar #6 mL KwikPen U-100 Insulin) compression stockings #1 ea 03/29/25 zinc oxide 40 % topical ointment 1 appl topical BID-QID PRN skin 03/29/25 (Aquaphor Baby Diaper Rash) irritation 30 days #56 grams Ventolin HFA 90 mcg/actuation 2 puff inhalation Q6H PRN 04/03/25 aerosol inhaler (albuterol sulfate) shortness of breath or wheezing #1 ea Allergies Allergy/AdvReac Type Severity Reaction Status Date / Time ibuprofen [From Motrin] Allergy Unknown swelling Verified 04/03/25 10:32 codeine [CODEINE] AdvReac Unknown SLEEPY Verified 04/03/25 10:32 Review of Systems 2 Review of Systems: Yes all other systems are reviewed and are negative Constitutional: Constitutional: Reports as per [facility] Past Medical History Attestation statement: The following information was validated with the patient. Medical History Generalized anxiety disorder COPD (chronic obstructive pulmonary disease) CHF (congestive heart failure) Anemia Herpes zoster MARJORIE (acute kidney injury) Left bundle branch block Morbid obesity Chronic pain syndrome Anxiety Pernicious anemia CHF (congestive heart failure) Hypothyroidism Essential hypertension Diabetes mellitus Pure hypercholesterolemia Surgical History H/O left knee surgery Deficient knowledge of leg surgery History of tonsillectomy and adenoidectomy History of appendectomy Family History Family History Father CVD (cardiovascular disease) Mother No problems noted. Family/Other FH: mental illness Social History Social History Household Members: Children and Caregiver Household Members Other:: 2 Housing: House Do you presently have visiting nurse or other home services: No Alcohol intake: unknown Patient Tobacco Use Status: Former Tobacco user Tobacco use type: Cigarette e-Cigarette/Vaping Use: Never Used Second Hand Smoke Exposure: No Advance Directives: Yes Advance Directives on File: Yes Advance Directives Date on File: 06/24/24 service: No Current occupational status: disabled Cognitive needs: Yes (Wheelchair, Lift chair) Hearing needs: No Vision needs: Yes (Glasses) Physical Exam ED Vital Signs: Vital Signs - 24 hr 04/03/25 10:15 04/03/25 10:33 04/03/25 10:41 Temperature 36.2 F L Pulse Rate 52 Respiratory Rate 22 H Blood Pressure 119/77 Pulse Oximetry 100 100 Oxygen Delivery Method Nasal Cannula Room Air Oxygen Flow Rate Fraction of Inspired Oxygen 04/03/25 11:16 04/03/25 12:56 04/03/25 13:28 Temperature 98.1 F Pulse Rate 60 74 Respiratory Rate 22 H 18 Blood Pressure 152/67 H 140/66 H Pulse Oximetry 98 Oxygen Delivery Method Nasal Cannula Oxygen Flow Rate 3 Fraction of Inspired Oxygen 04/03/25 14:34 04/03/25 14:41 04/03/25 15:43 Temperature 98.3 F 98.6 F Pulse Rate 67 84 Respiratory Rate 20 30 H 18 Blood Pressure 143/34 H 131/28 L Pulse Oximetry 99 100 Oxygen Delivery Method Nasal Cannula BiPAP Oxygen Flow Rate 3 Fraction of Inspired Oxygen 30 04/03/25 17:56 04/03/25 17:56 04/03/25 19:56 Temperature 98.0 F Pulse Rate 68 74 74 Respiratory Rate 14 18 23 H Blood Pressure 132/57 L 134/51 L Pulse Oximetry 96 97 Oxygen Delivery Method High Flow Nasal Cannula Nasal Cannula Oxygen Flow Rate 3 3 Fraction of Inspired Oxygen 04/03/25 20:44 Temperature Pulse Rate 69 Respiratory Rate 17 Blood Pressure 142/66 H Pulse Oximetry 99 Oxygen Delivery Method Nasal Cannula Oxygen Flow Rate 3 Fraction of Inspired Oxygen BMI result Body Mass Index 42.9 Const General: cooperative, comfortable and no acute distress Orientation/consciousness: patient oriented x3 Limitations: no limitations HENMT Head: Yes normal to inspection, Yes normocephalic and Yes atraumatic Ears: hearing grossly normal bilaterally General nose exam: Normal external nose present Face and sinus: Yes normal facial exam Mouth: Normal oral and palatal mucosa present, oropharynx normal and moist mucous membranes Throat: Yes posterior oropharynx normal Eyes General: appearance normal, both eyes and all related structures Eyelids: Yes eyelids normal Conjunctivae: conjunctivae normal Sclerae: sclerae normal Pupils: Equal, round and reactive pupils present EOM: EOMs intact bilaterally Neck Neck: Yes normal visual inspection, Yes full ROM and Yes no lymphadenopathy Lymphatic: no lymphadenopathy noted Chest Chest palpation & inspection: normal inspection of the chest Resp Other: Lungs extremely diminished, with expiratory wheezes noted more pronounced in lower lung bases. Patient is speaking in 2-3 word sentences. Auscultation: wheezes Cardio Rate: regular rate Rhythm: regular rhythm Heart sounds: S1 normal heart sound present and S2 normal heart sound present GI Inspection: Yes normal to inspection Skin General skin exam: no rashes or lesions noted Trauma: no lacerations or abrasions Wounds: no wounds Neuro General: patient oriented x3 and moves all extremities Cranial nerves: Yes Equal, round and reactive pupils present Extrem Other: Bilateral lower extremity edema noted, 2+ pitting. No calf tenderness. Bilateral legs wrapped with wound care dressing. No profound erythema. General: Yes normal to inspection Right upper extremity: normal to inspection Left upper extremity: normal to inspection Medications Administered Discontinued Medications Generic Name Dose Route Start Last Admin Trade Name Luis Fq PRN Reason Stop Dose Admin Albuterol Sulfate 2.5 mg/ 0 mg 04/03/25 11:05 04/03/25 11:15 Albuterol/Ipratropium 3 ml INHALE 04/03/25 11:06 1 dose ONCE ONE Administration Albuterol Sulfate 2.5 mg/ 0 mg 04/03/25 19:54 04/03/25 19:56 Albuterol/Ipratropium 3 ml INHALE 04/03/25 19:55 1 dose ONCE ONE Administration Furosemide 40 mg 04/03/25 12:32 04/03/25 13:28 Furosemide 40 Mg/4 Ml Vial IVPUSH 04/03/25 12:33 40 mg ONCE ONE Administration Protocol Medical Decision Making Medical Decision Making [facility] Narrative: This is a 79-year-old female who presents emergency department with concerns of shortness for breath. On arrival, patient on 2 L nasal cannula, oxygen saturation 100%. Blood pressure within normal limits. She does have tight expiratory wheezes noted throughout, more pronounced in the bilateral lung bases. Bilateral legs with chronic wounds, no obvious pitting edema noted bilaterally, no calf tenderness. Differential diagnoses include CHF exacerbation, upper respiratory infection, reactive airway disease, bronchitis. Will obtain labs, EKG, viral swabs, and chest x-ray. Will continue to closely monitor. Course: Labs returned, she has no leukocytosis, normocytic anemia with an H&H of 7.7/27.2. VBG returns, she has a respiratory acidosis, hypernatremic at 146, creatinine and BUN slightly elevated, BUN 79, creatinine 2.23, slight hyperglycemia at 142, hypocalcemia at 7.6, magnesium elevated at 2.7, troponin slightly elevated at 19, will get repeat. BNP elevated at 732. Patient tested negative for COVID, flu, RSV. Chest x-ray revealing cardiomegaly with pulmonary vascular congestion and small pleural effusions. Patient did get updrafts, did not improve. Patient appears to be fluid overloaded, and would benefit with IV Lasix. Patient is speaking in 2-3 word sentences. Patient is currently on Lasix 40 mg p.o., will treat with Lasix 40 mg IV. We will closely monitor. Will repeat troponin, patient will be best served in the hospital service. We will discuss with hospitalist for transfer of care. We will repeat VBG. 1402 - patient remains to have respiratory acidosis, consulted with hospitalist, will trial on BiPAP. 1745PM - VBG appears to be headed in the right direction, he has a pH of 7.38, bicarb of 27, pCO2 of 45. Patient placed on 3 L nasal cannula as this is her baseline. Will re-evaluate when she is off of BiPAP. 191 - patient off of BiPAP, oxygen saturation 97% on room air, we will continue to closely monitor. Discussed case with Dr. Hernández who recommends repeat VBG at 2100. Sign out given to my colleague Dr. Spangler pending repeat VBG and disposition. 2129 repeat gases shows improved admitted to hospitalist service Differential Diagnosis Differential Diagnoses: The differential diagnosis associated with the presentation includes See above Admission/Observation Consideration of admission/observation: Escalation of care including admission/observation considered Lab Data MDM Lab Attestation statement: I reviewed the patient's lab results. See course comment 04/03/25 11:06 04/03/25 11:06 Labs: Lab Results 04/03/25 04/03/25 04/03/25 Range/Units 11:06 11:10 13:35 WBC 6.7 (4.8-10.8) X10*3/uL RBC 2.79 L (4.20-5.50) X10*6/uL Hgb 7.7 L (12.0-16.0) g/dl Hct 27.2 L (37.0-47.0) % MCV 97.5 (80.0-98.0) fL MCH 27.6 (27.0-33.0) pg MCHC 28.3 L (31.0-35.0) g/dl RDW 15.2 (11.0-16.0) % Plt Count 330 D (160-400) X10*3/uL MPV 9.0 L (9.4-12.3) fL Immature Gran % (Auto) 1.0 H (0.0-0.4) % Neut % (Auto) 82.9 H (45-73) % Lymph % (Auto) 5.1 L (20-40) % [place] % (Auto) 7.9 (2-11) % Eos % (Auto) 2.5 (0-4) % Baso % (Auto) 0.6 (0-2) % Lymph # (Auto) 0.3 L (1.2-4.9) X10*3/uL [place] # (Auto) 0.5 (0.1-1.2) X10*3/uL Eos # (Auto) 0.2 (0.0-0.4) X10*3/uL Baso # (Auto) 0.0 (0.0-0.2) X10*3/uL Abs Immat Gran (auto) 0.07 H (0.00-0.03) X10*3/uL Absolute Neuts (auto) 5.6 (2.0-8.3) x10*3/uL Absolute Nucleated RBC 0.030 H (0.0-0.012) X10*3/uL Nucleated RBC % (auto) 0.4 H (0.0-0.2) /100WBC VBG pH 7.25 L (7.32-7.43) VBG pCO2 67 mmHg VBG pO2 42 mmHg VBG HCO3 29 H (22-26) mmol/L VBG O2 Saturation 57.0 % VBG Base Excess 1.8 mmol/L Sodium 146 H (135-145) mmol/L Potassium 4.9 D (3.3-5.1) mmol/L Chloride 108 (96-108) mmol/L Carbon Dioxide 28 (22-29) mmol/L Anion Gap 15 (12-20) BUN 79 H (9-16) mg/dL Creatinine 2.23 H (0.5-1.4) mg/dL Estim Creat Clear Calc 26.0 Estimated GFR 21 POC Glucose (60-115) mg/dL Random Glucose 142 H (60-115) mg/dL Calcium 7.6 L D (8.4-10.2) mg/dL Magnesium 2.7 H (1.6-2.6) mg/dL Total Bilirubin 0.2 (0.0-1.0) mg/dL Direct Bilirubin < 0.2 (0.0-0.5) mg/dL AST 21 (5-31) U/L ALT 11 (0-31) U/L Alkaline Phosphatase 123 H (39-117) U/L Troponin I High Sens 19.0 H 18.5 H (<3.5-17.0) ng/L B-Natriuretic Peptide 732 H (<100) pg/mL Total Protein 7.0 (6.5-8.0) g/dL Albumin 3.4 L (3.5-5.0) g/dL Urine Color Urine Appearance Urine pH (5.0-9.0) Ur Specific [place] (1.005-1.025) Urine Protein (Neg-Trace) mg/dL Urine Glucose (UA) (Negative) mg/dL Urine Ketones (Negative) mg/dL Urine Blood (Negative) Urine Nitrite (Negative) Ur Leukocyte Esterase (Negative) Urine RBC (0-2) /HPF Urine WBC (0-5) /HPF Urine WBC Clumps Ur Squamous Epith Cells (0-2) /HPF Urine Bacteria (None Seen) Hyaline Casts (0-2) /LPF Urine Yeast Influenza Type A (PCR) NEGATIVE (Negative) Influenza Type B (PCR) NEGATIVE (Negative) RSV RNA Qual (PCR) NEGATIVE (Negative) SARS-CoV-2 RNA (RT-PCR) NEGATIVE (Negative) 04/03/25 04/03/25 04/03/25 Range/Units 13:40 14:26 14:30 WBC (4.8-10.8) X10*3/uL RBC (4.20-5.50) X10*6/uL Hgb (12.0-16.0) g/dl Hct (37.0-47.0) % MCV (80.0-98.0) fL MCH (27.0-33.0) pg MCHC (31.0-35.0) g/dl RDW (11.0-16.0) % Plt Count (160-400) X10*3/uL MPV (9.4-12.3) fL Immature Gran % (Auto) (0.0-0.4) % Neut % (Auto) (45-73) % Lymph % (Auto) (20-40) % [place] % (Auto) (2-11) % Eos % (Auto) (0-4) % Baso % (Auto) (0-2) % Lymph # (Auto) (1.2-4.9) X10*3/uL [place] # (Auto) (0.1-1.2) X10*3/uL Eos # (Auto) (0.0-0.4) X10*3/uL Baso # (Auto) (0.0-0.2) X10*3/uL Abs Immat Gran (auto) (0.00-0.03) X10*3/uL Absolute Neuts (auto) (2.0-8.3) x10*3/uL Absolute Nucleated RBC (0.0-0.012) X10*3/uL Nucleated RBC % (auto) (0.0-0.2) /100WBC VBG pH 7.28 L (7.32-7.43) VBG pCO2 58 mmHg VBG pO2 85 mmHg VBG HCO3 28 H (22-26) mmol/L VBG O2 Saturation 96.0 % VBG Base Excess 0.8 mmol/L Sodium (135-145) mmol/L Potassium (3.3-5.1) mmol/L Chloride (96-108) mmol/L Carbon Dioxide (22-29) mmol/L Anion Gap (12-20) BUN (9-16) mg/dL Creatinine (0.5-1.4) mg/dL Estim Creat Clear Calc Estimated GFR POC Glucose 97 (60-115) mg/dL Random Glucose (60-115) mg/dL Calcium (8.4-10.2) mg/dL Magnesium (1.6-2.6) mg/dL Total Bilirubin (0.0-1.0) mg/dL Direct Bilirubin (0.0-0.5) mg/dL AST (5-31) U/L ALT (0-31) U/L Alkaline Phosphatase (39-117) U/L Troponin I High Sens (<3.5-17.0) ng/L B-Natriuretic Peptide (<100) pg/mL Total Protein (6.5-8.0) g/dL Albumin (3.5-5.0) g/dL Urine Color Yellow Urine Appearance Cloudy Urine pH 5.5 (5.0-9.0) Ur Specific [place] 1.010 (1.005-1.025) Urine Protein 100 (2+) H (Neg-Trace) mg/dL Urine Glucose (UA) 250 H (Negative) mg/dL Urine Ketones Negative (Negative) mg/dL Urine Blood Moderate (2+) H (Negative) Urine Nitrite Negative (Negative) Ur Leukocyte Esterase Large (3+) H (Negative) Urine RBC 3-5 H (0-2) /HPF Urine WBC 21-50 (0-5) /HPF Urine WBC Clumps Present Ur Squamous Epith Cells 3-5 (0-2) /HPF Urine Bacteria Trace (None Seen) Hyaline Casts 0-2 (0-2) /LPF Urine Yeast Present Influenza Type A (PCR) (Negative) Influenza Type B (PCR) (Negative) RSV RNA Qual (PCR) (Negative) SARS-CoV-2 RNA (RT-PCR) (Negative) 04/03/25 04/03/25 04/03/25 Range/Units 16:24 16:56 20:54 WBC (4.8-10.8) X10*3/uL RBC (4.20-5.50) X10*6/uL Hgb (12.0-16.0) g/dl Hct (37.0-47.0) % MCV (80.0-98.0) fL MCH (27.0-33.0) pg MCHC (31.0-35.0) g/dl RDW (11.0-16.0) % Plt Count (160-400) X10*3/uL MPV (9.4-12.3) fL Immature Gran % (Auto) (0.0-0.4) % Neut % (Auto) (45-73) % Lymph % (Auto) (20-40) % [place] % (Auto) (2-11) % Eos % (Auto) (0-4) % Baso % (Auto) (0-2) % Lymph # (Auto) (1.2-4.9) X10*3/uL [place] # (Auto) (0.1-1.2) X10*3/uL Eos # (Auto) (0.0-0.4) X10*3/uL Baso # (Auto) (0.0-0.2) X10*3/uL Abs Immat Gran (auto) (0.00-0.03) X10*3/uL Absolute Neuts (auto) (2.0-8.3) x10*3/uL Absolute Nucleated RBC (0.0-0.012) X10*3/uL Nucleated RBC % (auto) (0.0-0.2) /100WBC VBG pH 7.38 7.42 (7.32-7.43) VBG pCO2 45 41 mmHg VBG pO2 127 201 mmHg VBG HCO3 27 H 27 H (22-26) mmol/L VBG O2 Saturation TNP 100.0 % VBG Base Excess 2.3 2.6 mmol/L Sodium (135-145) mmol/L Potassium (3.3-5.1) mmol/L Chloride (96-108) mmol/L Carbon Dioxide (22-29) mmol/L Anion Gap (12-20) BUN (9-16) mg/dL Creatinine (0.5-1.4) mg/dL Estim Creat Clear Calc Estimated GFR POC Glucose 87 (60-115) mg/dL Random Glucose (60-115) mg/dL Calcium (8.4-10.2) mg/dL Magnesium (1.6-2.6) mg/dL Total Bilirubin (0.0-1.0) mg/dL Direct Bilirubin (0.0-0.5) mg/dL AST (5-31) U/L ALT (0-31) U/L Alkaline Phosphatase (39-117) U/L Troponin I High Sens (<3.5-17.0) ng/L B-Natriuretic Peptide (<100) pg/mL Total Protein (6.5-8.0) g/dL Albumin (3.5-5.0) g/dL Urine Color Urine Appearance Urine pH (5.0-9.0) Ur Specific [place] (1.005-1.025) Urine Protein (Neg-Trace) mg/dL Urine Glucose (UA) (Negative) mg/dL Urine Ketones (Negative) mg/dL Urine Blood (Negative) Urine Nitrite (Negative) Ur Leukocyte Esterase (Negative) Urine RBC (0-2) /HPF Urine WBC (0-5) /HPF Urine WBC Clumps Ur Squamous Epith Cells (0-2) /HPF Urine Bacteria (None Seen) Hyaline Casts (0-2) /LPF Urine Yeast Influenza Type A (PCR) (Negative) Influenza Type B (PCR) (Negative) RSV RNA Qual (PCR) (Negative) SARS-CoV-2 RNA (RT-PCR) (Negative) Independent Interpretation I performed an independent interpretation of an: EKG Interpretation: Normal sinus rhythm at a ventricular rate of 71 beats per minute, NC interval 200, QT QTC 442/480, no STEMI Radiology Impression Discussion of test interpretation with radiology: I have reviewed the radiologist's reading. Radiologist Impression: EXAMINATION: XR CHEST CLINICAL INFORMATION: CP, SOB COMPARISON: February 28, 2025 TECHNIQUE: Frontal view of the chest was obtained. FINDINGS: The cardiac size is is enlarged. There is progressive crowding and mild prominence of pulmonary vascularity. There is blunting of the costophrenic angles. XR/XR chest 1V IMPRESSION: Cardiomegaly with pulmonary vascular congestion and small pleural effusions. Electronically signed by: Sheldon Carrasquillo MD 04/03/2025 11:15 AM EDT Dictated By: Sheldon Carrasquillo MD Chronic Conditions Patient?s care impacted by: Diabetes and Other (CHF) Critical Care Time Critical Care Time Critical Care Time: Yes Total Critical Care Time: 101 Attestation: I have personally provided critical care time exclusive of time spent on separately billable procedures. Time includes review of lab data, radiology results, discussion with consultants, and monitoring for potential decompensation. Intervention performed as documented. Discharge Plan Discharge Clinical Impression: CHF exacerbation, Acute on chronic respiratory failure Prescriptions: No Action (DME) Lift chair See Rx Instructions .Route .MEDSUPPLY Qty: 1 0RF Rx Instructions: As directed insulin glargine [Basaglar KwikPen U-100 Insulin] 100 unit/mL (3 mL) insulin pen 25 unit subcut BEDTIME Qty: 6 0RF zinc oxide [Aquaphor Baby Diaper Rash] 40 % ointment 1 appl topical BID-QID PRN (Reason: skin irritation) 30 Days Qty: 56 1RF (DME) compression stockings 40 mmHg knee high See Rx Instructions .Route .MEDSUPPLY Qty: 1 0RF Rx Instructions: As directed albuterol sulfate [Ventolin HFA] 90 mcg/actuation HFA aerosol inhaler 2 puff inhalation Q6H PRN (Reason: shortness of breath or wheezing) Qty: 1 1RF atorvastatin 40 mg tablet 40 mg PO BEDTIME 90 Days Qty: 90 3RF (DME) Accu-Chek Guide test strips Strip See Rx Instructions .Route Qty: 100 3RF Rx Instructions: Use 1 test strip once a day (DME) Accu-Chek Odilia Plus test strp Strip See Rx Instructions .Route Qty: 100 1RF Rx Instructions: Use 1 test strip once a day Jardiance 10 mg tablet 10 mg PO DAILY Qty: 90 1RF furosemide 40 mg tablet 40 mg PO DAILY Qty: 90 0RF gemfibrozil 600 mg tablet 600 mg PO BID Qty: 180 1RF (DME) insulin syringe-needle U-100 0.5 mL 31 gauge x 5/16 syringe See Rx Instructions .Route Qty: 100 3RF Rx Instructions: Use 1 needle once a day (DME) lancets [Accu-Chek Softclix Lancets] Misc See Rx Instructions .Route Qty: 100 3RF Rx Instructions: Use 1 lancet once a day levothyroxine 200 mcg tablet 200 mcg PO DAILY@0600 90 Days Qty: 90 0RF (DME) pen needle, diabetic [1st Tier Unifine Pentips] 31 gauge x 5/16 needle See Rx Instructions .Route Qty: 100 4RF Rx Instructions: Use 1 pen needle once a day sertraline 50 mg tablet 50 mg PO DAILY Qty: 90 0RF sodium bicarbonate 650 mg tablet 650 mg PO DAILY Qty: 90 0RF Lokelma 10 gram powder in packet 10 g PO DAILY Qty: 90 0RF amlodipine 5 mg tablet 5 mg PO DAILY Qty: 90 2RF ammonium lactate 12 % lotion 1 appl topical BID Qty: 400 3RF Print Language: [place] Islander
--- NOTE | 2025-04-03 10:50 | ECG_ITS ---
Test Reason : CP Blood Pressure : */* mmHG Vent. Rate : 71 BPM Atrial Rate : 71 BPM P-R Int : 200 ms QRS Dur : 122 ms QT Int : 442 ms P-R-T Axes : 113 -41 84 degrees QTcB Int : 480 ms Normal sinus rhythm Left axis deviation Non-specific intra-ventricular conduction delay Minimal voltage criteria for LVH, may be normal variant ( [place]orge product ) Abnormal ECG When compared with ECG of 28-Feb-2025 11:01, No significant changes seen Referred By: Selin Sheikh Electronically Signed By: BECKIE GARRETT MD
[2025-04-03 11:10] LABS: MANUAL DIFF FLAG NO
[2025-04-03 11:13] LABS: Basophils Percent Auto 0.6 % (0-2); Eosinophils Absolute Auto 0.2 X10*3/uL (0.0-0.4); Eosinophils Percent Auto 2.5 % (0-4); Hematocrit 27.2 % (37.0-47.0); Hemoglobin 7.7 g/dl (12.0-16.0); Imm Gran Abs Auto 0.07 X10*3/uL (0.00-0.03); Lymphocytes Absolute Auto 0.3 X10*3/uL (1.2-4.9); Lymphocytes Percent Auto 5.1 % (20-40); Mean Corpuscular HGB Conc 28.3 g/dl (31.0-35.0); Mean Corpuscular Hemoglobin 27.6 pg (27.0-33.0); Mean Corpuscular Volume 97.5 fL (80.0-98.0); Monocytes Absolute Auto 0.5 X10*3/uL (0.1-1.2); Monocytes Percent Auto 7.9 % (2-11); NRBC Pct Auto 0.4 /100WBC (0.0-0.2); Neutrophils Absolute Auto 5.6 x10*3/uL (2.0-8.3); Neutrophils Percent Auto 82.9 % (45-73); Platelet Count 330 X10*3/uL (160-400); Red Blood Count 2.79 X10*6/uL (4.20-5.50); Red Cell Distribution Width 15.2 % (11.0-16.0); White Blood Count 6.7 X10*3/uL (4.8-10.8)
[2025-04-03 11:13] LABS: Venous Blood Gas Refer to POC result
[2025-04-03] MEDS: Albuterol Sulfate 2.5 MG, Albuterol/Iprat 2.5/0.5MG 3 ML 3 ML INHALE ×2 (11:15→19:56)
[2025-04-03 11:16] LABS: VBG Base Excess 1.8 mmol/L; VBG HCO3 29 mmol/L (22-26); VBG pCO2 67 mmHg; VBG pH 7.25 (7.32-7.43); VBG pO2 42 mmHg
[2025-04-03 11:28] LABS: Alanine Aminotransferase 11 U/L (0-31); Albumin Level 3.4 g/dL (3.5-5.0); Alkaline Phosphatase 123 U/L (39-117); Anion Gap 15 (12-20); Aspartate Amino Transferase 21 U/L (5-31); Bilirubin Direct < 0.2 mg/dL (0.0-0.5); Bilirubin Total 0.2 mg/dL (0.0-1.0); Blood Urea Nitrogen 79 mg/dL (9-16); Calcium 7.6 mg/dL (8.4-10.2); Carbon Dioxide 28 mmol/L (22-29); Chloride 108 mmol/L (96-108); Estimated Glomerular Filt Rate 21; Glucose Random 142 mg/dL (60-115); Magnesium 2.7 mg/dL (1.6-2.6); Potassium 4.9 mmol/L (3.3-5.1); Sodium 146 mmol/L (135-145)
[2025-04-03 11:50] LABS: B Type Natriuretic Peptide 732 pg/mL (<100)
--- OUTSIDE RECORDS SUMMARY | 2025-04-03 11:54 | XMS_ITS | Encounter Summary ---
Author Organization [facility] Address [address] [place] [address] Care Team Providers Care Cardiac Monitor Name Role Phone Hal Cole MD Primary Care Provider [phone] Encounter Details Date Type Department Care Team (Late st Contact Info) Description 09/28/2024 Lab Requisition [facility] Lab [address] [facility] [place] [address] Hal Cole MD [address] [place] [address], [phone] Essential (primary) hypertension; Chronic obstructive pulmonary [...] LAB CHEMISTRY METHOD 09/28/2024 1:08 PM EST [facility] Blood Venous blood specimen / Unknown Venipuncture / Unknown 09/28/2024 7:04 AM EST 09/28/2024 11:03 AM EST Hal Cole MD LAB BLOOD ORDERABLES Final Resul t Performing Organization Address [facility]/ZIP Co de Phone Number [facility] [address] [place] [address], [place] [phone] * Free thyroxine with reflex to free triiodothyronine (09/28/2024 7:04 AM EST) Pathologist [facility] [place] Free T4 0.88 0.70 - 1.80 ng/dL LAB CHEMISTRY METHOD 09/28/2024 12:41 PM EST [facility] Blood Venous blood specimen / Unknown Venipuncture / Unknown 09/28/2024 7:04 AM EST 09/28/2024 11:03 AM EST Hal Cole MD LAB BLOOD ORDERABLES Final Resul t [facility] [address] [place] [address], [place] [phone] * (ABNORMAL) Thyroid stimulating hormone with reflex to free t4 and free t3 (09/28/2024 7:04 AM EST) TSH 50.98(H) 0.40 - 4.00 mcIU/mL LAB CHEMISTRY METHOD 09/28/2024 12:15 PM [facility] Blood Venous blood specimen / Unknown Venipuncture / Unknown 09/28/2024 7:04 AM EST 09/28/2024 11:03 AM EST us Hal Cole MD LAB BLOOD ORDERABLES Final Resul t [facility] [address] [place] [address], [place] [phone] * (ABNORMAL) Basic metabolic panel (09/28/2024 7:04 [...] MD LAB BLOOD ORDERABLES Final Resul t [facility] [address] [place] [address], [place] [phone] * (ABNORMAL) Complete blood count (09/28/2024 7:04 AM EST) WBC 7.1 4.8 - 10.8 K/mcL LAB HEMETOLOGY METHOD 09/28/2024 11:31 AM [facility] RBC 3.70(L) 3.80 - 4.80 M/mcL LAB HEMETOLOGY METHOD 09/28/2024 11:31 AM [facility] [...] LAB HEMETOLOGY METHOD 09/28/2024 11:31 AM EST [facility] RDW 13.5 11.0 - 15.0 % LAB HEMETOLOGY METHOD 09/28/2024 11:31 AM EST [facility] Platelets 214 130 - 400 K/mcL LAB HEMETOLOGY METHOD 09/28/2024 11:31 AM EST [facility] MPV 9.9 7.0 - 11.0 FL LAB HEMETOLOGY METHOD 09/28/2024 11:31 AM EST [facility] NRBC 0.0 <1.0 % LAB HEMETOLOGY METHOD 09/28/2024 11:31 AM [facility] NRBC Absolute 0.00 <0.10 K/mcL LAB HEMETOLOGY METHOD 09/28/2024 11:31 AM [facility] Blood Venous blood specimen / Unknown Venipuncture / Unknown 09/28/2024 7:04 AM EST 09/28/2024 11:03 AM EST us Hal Cole MD LAB BLOOD ORDERABLES Final Resul t [facility] [address] [place] [address], documented in this encounter Visit Diagnoses Diagnosis Essential (primary) hypertension Unspecified essential hypertension Chronic obstructive pulmonary disease, unspecified (CMS/HCC V24, CMS/HCC V28) documented in this encounter Care Teams Cardiac Monitor Relationship Specialty Start Date End Date Hal Cole MD [address] [place] [address], [phone] PCP - General Family Medicine 09/15/24 documented as of this encounter
[2025-04-03 12:16] LABS: Influenza A PCR NEGATIVE (Negative); Influenza B PCR NEGATIVE (Negative); Resp Syncy Virus RNA Qual PCR NEGATIVE (Negative); SARS COV2 PCR INHOUSE NEGATIVE (Negative)
[2025-04-03] MEDS: Furosemide 40 MG/4 ML VIAL IVPUSH (13:28)
[2025-04-03 13:41] LABS: Venous Blood Gas Refer to POC result
[2025-04-03 13:44] LABS: VBG Base Excess 0.8 mmol/L; VBG HCO3 28 mmol/L (22-26); VBG pCO2 58 mmHg; VBG pH 7.28 (7.32-7.43); VBG pO2 85 mmHg
[2025-04-03 14:02] LABS: Troponin-I High Sensitivity 18.5 ng/L (<3.5-17.0)
[2025-04-03 14:29] LABS: Glucose, Whole Blood 97 mg/dL (60-115)
[2025-04-03 14:36] LABS: Appearance Urine Cloudy; Color Urine Yellow; Glucose Urine UA 250 mg/dL (Negative); Leukocyte Esterase Urine Large (3+) (Negative); Nitrite Urine Negative (Negative); PH 5.5 (5.0-9.0); UMIC TRIGGER UACC YES; Urine Blood Moderate (2+) (Negative); Urine Ketones Negative (Negative); Urine Protein 100 (2+) mg/dL (Neg-Trace)
--- NOTE | 2025-04-03 14:37 | PC.NURSE ---
Moyer catheter changed out per PA request, pt is unsure when the last time she had it changed was, pt reporting [facility] has been changing it for her. Hygeine care provided, pt has multiple areas of fungal noted, PA aware. Pt also had dressings placed on coccyx and L upper thigh for ? deep tissue discoloration. Pt repositioned to left side at this time, heals unloaded off bed. Pt reporting her leg dressing changes happen every MWF, last done thursday. Pt placed on Bipap at this time by Resp. POC checked per pt request, POC 97, pt stating that is extremely low for me Pt remains asymptomatic at this time, PA aware, no new orders placed at this time. Pt reports she wanted to eat or drink education given to have some BiPap time and then we will reassess her eating and drinking. Call hull within reach at this time. Awaiting dispo.
[2025-04-03 14:46] LABS: Bacteria Urine Trace (None Seen); Hyaline Casts Urine 0-2 /LPF (0-2); UACC Culture Trigger YES; WBC Clumps Urine Present; WBC Urine 21-50 /HPF (0-5)
[2025-04-03 16:27] LABS: Glucose, Whole Blood 87 mg/dL (60-115)
[2025-04-03 16:59] LABS: VBG Base Excess 2.3 mmol/L; VBG HCO3 27 mmol/L (22-26); VBG pCO2 45 mmHg; VBG pH 7.38 (7.32-7.43); VBG pO2 127 mmHg
[2025-04-03 17:01] LABS: Venous Blood Gas Refer to POC result
--- NOTE | 2025-04-03 18:11 | PC.NURSE ---
PA and RN at bedside at 1745, BiPap removed, baseline 3L NC placed back on pt, pt requesting hygeine care at this time, tech aware, pt okay to eat and drink after care provided, pt aware at this time. Awaiting trial off Bipap to assess dispo.
[2025-04-03 20:58] LABS: Venous Blood Gas Refer to POC result
[2025-04-03 20:58] LABS: VBG Base Excess 2.6 mmol/L; VBG HCO3 27 mmol/L (22-26); VBG pCO2 41 mmHg; VBG pH 7.42 (7.32-7.43); VBG pO2 201 mmHg
--- NOTE | 2025-04-03 21:51 | P.HPHOSP_ITS ---
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 Patient states her symptoms started 1 day prior to presentation. She does endorse lower extremity leg swelling and dyspnea which is worse with lying flat. Also has wheezing and intermittent productive cough with clear sputum production. She used her home inhaler without any relief. Also noted change in color of urine. No fever, chills, chest pain, palpitations, abdominal pain, changes in urinary or bowel habits. In the emergency department, imaging with cardiomegaly, pleural effusions and pulmonary vascular congestion. BNP found to be elevated. Initially patient with respiratory acidosis and required BiPAP in the ER. Review of Systems 2 Constitutional: Constitutional: Reports fatigue, Reports malaise and Reports weakness Cardiovascular: Cardiovascular: Reports dyspnea on exertion and Reports orthopnea Respiratory: Respiratory: Reports cough, Reports dyspnea on exertion and Reports wheezing Gastrointestinal: Gastrointestinal: Reports no additional gastrointestinal complaints Genitourinary: Genitourinary: Reports no additional female genitourinary complaints Neurologic: Reports weakness Endocrine: Endocrine: Reports fatigue Allergic/Immunologic: Allergic/Immunologic: Reports wheezing [facility] Medical History Generalized anxiety disorder COPD (chronic obstructive pulmonary disease) CHF (congestive heart failure) Anemia Herpes zoster MARJORIE (acute kidney injury) Left bundle branch block Morbid obesity Chronic pain syndrome Anxiety Pernicious anemia CHF (congestive heart failure) Hypothyroidism Essential hypertension Diabetes mellitus Pure hypercholesterolemia Family History Father CVD (cardiovascular disease) Mother No problems noted. Family/Other FH: mental illness Surgical History H/O left knee surgery Deficient knowledge of leg surgery History of tonsillectomy and adenoidectomy History of appendectomy Social History Household Members: Children and Caregiver Household Members Other:: 2 Housing: House Do you presently have visiting nurse or other home services: No Alcohol intake: unknown Patient Tobacco Use Status: Former Tobacco user Tobacco use type: Cigarette e-Cigarette/Vaping Use: Never Used Second Hand Smoke Exposure: No Advance Directives: Yes Advance Directives on File: Yes Advance Directives Date on File: 06/24/24 service: No Current occupational status: disabled Cognitive needs: Yes (Wheelchair, Lift chair) Hearing needs: No Vision needs: Yes (Glasses) Meds Allergies Allergy/AdvReac Type Severity Reaction Status Date / Time ibuprofen [From Motrin] Allergy Unknown swelling Verified 04/03/25 10:32 codeine [CODEINE] AdvReac Unknown SLEEPY Verified 04/03/25 10:32 Physical Exam 2 Vital Signs and Narrative: Vital Signs: Last Vital Signs Temp 98.0 F 04/03/25 17:56 Pulse 69 04/03/25 20:44 Resp 17 04/03/25 20:44 BP 142/66 H 04/03/25 20:44 Pulse Ox 99 04/03/25 20:44 O2 Del Method Nasal Cannula 04/03/25 20:44 O2 Flow Rate 3 04/03/25 20:44 FiO2 30 04/03/25 15:43 Oxygen Flow Rate 3 04/03/25 10:33 BMI result Body Mass Index 42.9 Middle-aged female lying in bed in no distress Neck supple Regular rate and rhythm, S1-S2 heard Bilateral expiratory wheezing appreciated Abdomen soft nontender, no guarding, no rigidity Patient is awake, alert and oriented to self, place, time and person ; no focal motor deficit Psych: Normal mood Results Labs 04/03/25 11:06 04/03/25 11:06 Labs: Laboratory Results - last 24 hr 04/03/25 04/03/25 04/03/25 11:06 11:10 13:35 MCV 97.5 MCH 27.6 MCHC 28.3 L RDW 15.2 Plt Count 330 D MPV 9.0 L Immature Gran % (Auto) 1.0 H Neut % (Auto) 82.9 H Lymph % (Auto) 5.1 L [place] % (Auto) 7.9 Eos % (Auto) 2.5 Baso % (Auto) 0.6 Lymph # (Auto) 0.3 L [place] # (Auto) 0.5 Eos # (Auto) 0.2 Baso # (Auto) 0.0 Abs Immat Gran (auto) 0.07 H Absolute Neuts (auto) 5.6 Absolute Nucleated RBC 0.030 H Nucleated RBC % (auto) 0.4 H VBG pH 7.25 L VBG pCO2 67 VBG pO2 42 VBG HCO3 29 H VBG O2 Saturation 57.0 VBG Base Excess 1.8 Anion Gap 15 Estim Creat Clear Calc 26.0 Estimated GFR 21 POC Glucose Random Glucose 142 H Calcium 7.6 L D Magnesium 2.7 H Total Bilirubin 0.2 Direct Bilirubin < 0.2 AST 21 ALT 11 Alkaline Phosphatase 123 H Troponin I High Sens 19.0 H 18.5 H B-Natriuretic Peptide 732 H Total Protein 7.0 Albumin 3.4 L Urine Color Urine Appearance Urine pH Ur Specific Olden Urine Protein Urine Glucose (UA) Urine Ketones Urine Blood Urine Nitrite Ur Leukocyte Esterase Urine RBC Urine WBC Urine WBC Clumps Ur Squamous Epith Cells Urine Bacteria Hyaline Casts Urine Yeast Influenza Type A (PCR) NEGATIVE Influenza Type B (PCR) NEGATIVE RSV RNA Qual (PCR) NEGATIVE SARS-CoV-2 RNA (RT-PCR) NEGATIVE 04/03/25 04/03/25 04/03/25 13:40 14:26 14:30 MCV MCH MCHC RDW Plt Count MPV Immature Gran % (Auto) Neut % (Auto) Lymph % (Auto) [place] % (Auto) Eos % (Auto) Baso % (Auto) Lymph # (Auto) [place] # (Auto) Eos # (Auto) Baso # (Auto) Abs Immat Gran (auto) Absolute Neuts (auto) Absolute Nucleated RBC Nucleated RBC % (auto) VBG pH 7.28 L VBG pCO2 58 VBG pO2 85 VBG HCO3 28 H VBG O2 Saturation 96.0 VBG Base Excess 0.8 Anion Gap Estim Creat Clear Calc Estimated GFR POC Glucose 97 Random Glucose Calcium Magnesium Total Bilirubin Direct Bilirubin AST ALT Alkaline Phosphatase Troponin I High Sens B-Natriuretic Peptide Total Protein Albumin Urine Color Yellow Urine Appearance Cloudy Urine pH 5.5 Ur Specific Olden 1.010 Urine Protein 100 (2+) H Urine Glucose (UA) 250 H Urine Ketones Negative Urine Blood Moderate (2+) H Urine Nitrite Negative Ur Leukocyte Esterase Large (3+) H Urine RBC 3-5 H Urine WBC 21-50 Urine WBC Clumps Present Ur Squamous Epith Cells 3-5 Urine Bacteria Trace Hyaline Casts 0-2 Urine Yeast Present Influenza Type A (PCR) Influenza Type B (PCR) RSV RNA Qual (PCR) SARS-CoV-2 RNA (RT-PCR) 04/03/25 04/03/25 04/03/25 16:24 16:56 20:54 MCV MCH MCHC RDW Plt Count MPV Immature Gran % (Auto) Neut % (Auto) Lymph % (Auto) [place] % (Auto) Eos % (Auto) Baso % (Auto) Lymph # (Auto) [place] # (Auto) Eos # (Auto) Baso # (Auto) Abs Immat Gran (auto) Absolute Neuts (auto) Absolute Nucleated RBC Nucleated RBC % (auto) VBG pH 7.38 7.42 VBG pCO2 45 41 VBG pO2 127 201 VBG HCO3 27 H 27 H VBG O2 Saturation TNP 100.0 VBG Base Excess 2.3 2.6 Anion Gap Estim Creat Clear Calc Estimated GFR POC Glucose 87 Random Glucose Calcium Magnesium Total Bilirubin Direct Bilirubin AST ALT Alkaline Phosphatase Troponin I High Sens B-Natriuretic Peptide Total Protein Albumin Urine Color Urine Appearance Urine pH Ur Specific Olden Urine Protein Urine Glucose (UA) Urine Ketones Urine Blood Urine Nitrite Ur Leukocyte Esterase Urine RBC Urine WBC Urine WBC Clumps Ur Squamous Epith Cells Urine Bacteria Hyaline Casts Urine Yeast Influenza Type A (PCR) Influenza Type B (PCR) RSV RNA Qual (PCR) SARS-CoV-2 RNA (RT-PCR) Imaging Radiologist's Impressions: Impressions Chest X-Ray 04/03/25 10:55 IMPRESSION: Cardiomegaly with pulmonary vascular congestion and small pleural effusions. 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 #. Acute on chronic hypercapnic hypoxemic respiratory failure due to acute on chronic diastolic congestive heart failure and acute exacerbation of COPD: Initially required BiPAP in the ER. Initiating IV Lasix. Strict I's and O's. Low-salt diet. Also initiating systemic steroids, scheduled and p.r.n. DuoNebs. Continue home inhaler #. MAROJRIE on CKD stage 4: Cardiorenal type 1 in the setting of above. Monitor with IV diuresis #. UTI: Previous cultures with Enterococcus faecalis and Providencia. Initiating ampicillin and ceftriaxone. Follow urine culture #. Insulin-dependent diabetes mellitus: Initiating Accu-Cheks with sliding scale insulin. Reduce hold basal insulin once med rec verified #. Hypothyroidism: On Synthroid #. Obesity/TEZ: CPAP at bedtime. Counseled regarding weight loss #. Venous stasis to lower extremities: Consulting Wound Care #. Mood disorder: Continue home mood stabilizers Med rec pending DVT prophylaxis: Lovenox Full code. Discussed with patient at bedside Admit as inpatient and will require two night minimum hospital stay for IV diuresis, monitoring of respiratory status (as above), which is not possible in a lesser acute setting. Quality Stroke Does the patient have a stroke diagnosis?: No VTE Prior VTE?: No VTE Risk Level:: Medical - moderate - high VTE Device Contraindication: Treatment Not Indicated VTE Drug Contraindication: N/A - Med Ordered
[2025-04-03] MEDS: Enoxaparin Sodium 30 MG/0.3 ML SYRINGE SUBCUT (22:48)
[2025-04-03] MEDS: cefTRIAXone sodium 1 GM VIAL IVPUSH (22:49)
[2025-04-03] MEDS: Ampicillin Sodium 2 GM in 0.9 % Sodium Chloride 100 ML IV (22:54)
[2025-04-04] VITALS (20 sets, daily range): BP systolic 137–166; BP diastolic 46–74; PULSE 61–88; RESP 15–38; TEMP 36.3–36.9; O2SAT 88–100; BMI 43.2
--- NOTE | 2025-04-04 00:10 | PC.RT ---
pt has a hx of TEZ and had a sleep study years ago here at [facility]. She never had a Cpap machine at all. She was placed on bipap here for hypercarbia and was recently placed on cpap but does not like it, she prefers bipap due to the increase of pressure. She will need a sleep study prior to discharge here at [facility].
[2025-04-04] MEDS: 0.9 % Sodium Chloride Flush 3 ML SYRINGE IVFLUSH ×4 (00:29→23:46)
--- NOTE | 2025-04-04 03:53 | PC.RT ---
pt was on bipap earlier for hypercarbia. This has since resided. Pt then switched to cpap and was cydni well. Pt then did not like that and was requesting to come off. Rn took pt off and narendray after the RN called resp saying pt couldnt breath. RT went zabrina to pt bedside in ED and pt wanted to go back on bipap and not cpap. I asiya discussed the improtance and difference of these two. She wanted to go back on bipap this time and she said she didnt like cpap. Pt is very anxious and nervous and she is unclear what she wants at this time. pt will get a sleep study this evening. Pt should only go on cpap for sleep and not rescue for sob which she is doing at this time.
[2025-04-04 05:37] LABS: MANUAL DIFF FLAG NO
[2025-04-04 05:50] LABS: Anion Gap 16 (12-20); Basophils Percent Auto 0.6 % (0-2); Blood Urea Nitrogen 74 mg/dL (9-16); Calcium 7.5 mg/dL (8.4-10.2); Carbon Dioxide 25 mmol/L (22-29); Chloride 110 mmol/L (96-108); Creatinine Clr Calc Pharmacy 29.3; Eosinophils Absolute Auto 0.1 X10*3/uL (0.0-0.4); Eosinophils Percent Auto 2.1 % (0-4); Estimated Glomerular Filt Rate 24; Glucose Random 120 mg/dL (60-115); Hemoglobin 7.1 g/dl (12.0-16.0); Imm Gran Abs Auto 0.03 X10*3/uL (0.00-0.03); Imm Gran Pct Auto 0.5 % (0.0-0.4); Lymphocytes Absolute Auto 0.4 X10*3/uL (1.2-4.9); Lymphocytes Percent Auto 6.2 % (20-40); Mean Corpuscular HGB Conc 28.4 g/dl (31.0-35.0); Mean Corpuscular Hemoglobin 27.2 pg (27.0-33.0); Mean Corpuscular Volume 95.8 fL (80.0-98.0); Mean Platelet Volume 9.2 fL (9.4-12.3); Monocytes Absolute Auto 0.4 X10*3/uL (0.1-1.2); Monocytes Percent Auto 6.3 % (2-11); Neutrophils Absolute Auto 5.3 x10*3/uL (2.0-8.3); Neutrophils Percent Auto 84.3 % (45-73); Platelet Count 331 X10*3/uL (160-400); Potassium 4.4 mmol/L (3.3-5.1); Red Blood Count 2.61 X10*6/uL (4.20-5.50); Red Cell Distribution Width 15.2 % (11.0-16.0); Sodium 147 mmol/L (135-145); White Blood Count 6.3 X10*3/uL (4.8-10.8)
[2025-04-04] MEDS: hydrOXYzine HCL 50 MG TABLET PO (06:27)
[2025-04-04 07:31] LABS: Glucose, Whole Blood 90 mg/dL (60-115)
[2025-04-04] MEDS: Albuterol/Iprat 2.5/0.5MG 3 ML AMPUL.NEB INHALE ×4 (07:37→20:10)
--- NOTE | 2025-04-04 07:39 | PC.NURSE ---
Pt has been complaining of SOB since waking. Is tachipnic (30). LS clear. Audible wheeze is upper airway. Pt requesting ativan. Skin pwd. NSR on monitor. Routine updraft called for and patient reports feeling better as soon as treatment begins. RR dropped to 22
--- NOTE | 2025-04-04 09:11 | PHA.MEDREC ---
Addendum entered by Joyce Pfeiffer RPh 04/04/25 09:43: Reviewed by [facility] Original Note: Pharmacy Consult ? Medication Reconciliation Pharmacy has completed the medication reconciliation. Spoke with pt and she was able to confirm her Lantus and confirmed she injects 25 units at bedtime of that but was a poor historian with her other medications and said to call her son Robbie ([phone]). I called pt son and he was able to confirm his moms medications; he also confirmed the Lantus 25 units daily@1900. Pt stated she took her medications last Thursday night and was not able to take any yesterday morning but pt son stated his mom took her morning medications yesterday.
--- NOTE | 2025-04-04 09:22 | P.PNIM_ITS ---
Subjective Subjective Date of Service: 04/04/25 Interval History: No significant nursing events overnight. Patient seen eating breakfast this morning. Minimal improvement in dyspnea. Constitutional Constitutional: Reports fatigue, Reports malaise and Reports weakness Cardiovascular Cardiovascular: Reports dyspnea on exertion and Reports orthopnea Respiratory Respiratory: Reports cough, Reports dyspnea on exertion and Reports wheezing Gastrointestinal Gastrointestinal: Reports no additional gastrointestinal complaints Neurologic Neurologic: Reports weakness Endocrine Endocrine: Reports fatigue Allergic/Immunologic Allergic/Immunologic: Reports wheezing Physical Exam 2 Vital Signs: Vital Signs: Last Vital Signs Temp 98.2 F 04/03/25 23:14 Pulse 75 04/04/25 07:38 Resp 18 04/04/25 07:38 BP 138/46 L 04/04/25 05:17 Pulse Ox 100 04/04/25 07:15 O2 Del Method Nasal Cannula 04/04/25 07:15 O2 Flow Rate 2 04/04/25 07:15 FiO2 30 04/03/25 15:43 Oxygen Flow Rate 3 04/03/25 10:33 BMI result Body Mass Index 42.9 Middle-aged female lying in bed in no distress Neck supple Regular rate and rhythm, S1-S2 heard Bilateral expiratory wheezing appreciated Abdomen soft nontender, no guarding, no rigidity Patient is awake, alert and oriented to self, place, time and person ; no focal motor deficit Psych: Normal mood Objective Data Active Medications Acetaminophen (Acetaminophen 325 Mg Tablet) 650 mg PO Q6H PRN PRN Reason: Pain, Mild 1-3,fever,headache Albuterol/Ipratropium (Albuterol/Iprat 2.5/0.5mg 3 Ml Ampul.Neb) 3 ml INHALE Q4H PRN PRN Reason: Shortness of Breath/Wheezing Albuterol/Ipratropium (Albuterol/Iprat 2.5/0.5mg 3 Ml Ampul.Neb) 3 ml INHALE RQ4H WHILE AWAKE [facility] Last Admin: 04/04/25 07:37 Dose: 3 ml Documented By: ANASTASIYA Benzonatate (Benzonatate 100 Mg Capsule) 100 mg PO TID PRN PRN Reason: Cough Calcium Carbonate (Calcium Carbonate 750 Mg Tab.Chew) 750 mg PO Q4H PRN PRN Reason: Heartburn Ceftriaxone Sodium (Ceftriaxone Sodium 1 Gm Vial) 1 gm IVPUSH Q24H [facility] Last Admin: 04/03/25 22:49 Dose: 1 gm Documented By: JANETH Dextrose (Dextrose 50 % 25 Gm/50 Ml Syringe) 25 gm IVPUSH Q15M PRN; Protocol PRN Reason: per Hypoglycemia Standing Ord. Enoxaparin Sodium (Enoxaparin Sodium 30 Mg/0.3 Ml Syringe) 30 mg SUBCUT Q24H [facility] Last Admin: 04/03/25 22:48 Dose: 30 mg Documented By: JANETH Furosemide (Furosemide 40 Mg/4 Ml Vial) 40 mg IVPUSH DAILY [facility]; Protocol Glucose (Glucose Gel 15 Gm Gel..Gram.) 15 gm PO Q15M PRN; Protocol PRN Reason: per Hypoglycemia Standing Ord. Ampicillin Sodium 2 gm/ Sodium (Chloride) 100 mls @ 200 mls/hr IV Q12H [facility] Last Infusion: 04/03/25 23:24 Dose: Infused Documented By: JANETH Insulin Human Lispro (Insulin Lispro 100 Unit/Ml 3 Ml Vial) 0 unit SUBCUT QIDACHS [facility]; Protocol Last Admin: 04/04/25 07:30 Dose: Not Given Documented By: JYOTI Non-Admin Reason: No Insulin Coverage Magnesium Hydroxide (Milk Of Magnesia 30 Ml Oral.Susp) 30 ml PO DAILY PRN PRN Reason: Constipation Melatonin (Melatonin 3 Mg Tablet) 6 mg PO BEDTIME PRN PRN Reason: Insomnia Ondansetron HCl (Ondansetron Hcl 4 Mg/2 Ml Vial) 4 mg IVPUSH Q8H PRN PRN Reason: Nausea and Vomiting Prednisone (Prednisone 20 Mg Tablet) 40 mg PO DAILY [facility] Sodium Chloride (0.9 % Sodium Chloride Flush 3 Ml Syringe) 3 ml IVFLUSH QSHIFT [facility] Last Admin: 04/04/25 00:29 Dose: 3 ml Documented By: JANETH Labs 04/04/25 05:16 04/04/25 05:16 Labs: Laboratory Results - last 24 hr 04/03/25 04/03/25 04/03/25 11:06 11:10 13:35 MCV 97.5 MCH 27.6 MCHC 28.3 L RDW 15.2 Plt Count 330 D MPV 9.0 L Immature Gran % (Auto) 1.0 H Neut % (Auto) 82.9 H Lymph % (Auto) 5.1 L Bowman % (Auto) 7.9 Eos % (Auto) 2.5 Baso % (Auto) 0.6 Lymph # (Auto) 0.3 L Bowman # (Auto) 0.5 Eos # (Auto) 0.2 Baso # (Auto) 0.0 Abs Immat Gran (auto) 0.07 H Absolute Neuts (auto) 5.6 Absolute Nucleated RBC 0.030 H Nucleated RBC % (auto) 0.4 H VBG pH 7.25 L VBG pCO2 67 VBG pO2 42 VBG HCO3 29 H VBG O2 Saturation 57.0 VBG Base Excess 1.8 Anion Gap 15 Estim Creat Clear Calc 26.0 Estimated GFR 21 POC Glucose Random Glucose 142 H Calcium 7.6 L D Magnesium 2.7 H Total Bilirubin 0.2 Direct Bilirubin < 0.2 AST 21 ALT 11 Alkaline Phosphatase 123 H Troponin I High Sens 19.0 H 18.5 H B-Natriuretic Peptide 732 H Total Protein 7.0 Albumin 3.4 L Urine Color Urine Appearance Urine pH Ur Specific [place] Urine Protein Urine Glucose (UA) Urine Ketones Urine Blood Urine Nitrite Ur Leukocyte Esterase Urine RBC Urine WBC Urine WBC Clumps Ur Squamous Epith Cells Urine Bacteria Hyaline Casts Urine Yeast Influenza Type A (PCR) NEGATIVE Influenza Type B (PCR) NEGATIVE RSV RNA Qual (PCR) NEGATIVE SARS-CoV-2 RNA (RT-PCR) NEGATIVE 04/03/25 04/03/25 04/03/25 13:40 14:26 14:30 MCV MCH MCHC RDW Plt Count MPV Immature Gran % (Auto) Neut % (Auto) Lymph % (Auto) Bowman % (Auto) Eos % (Auto) Baso % (Auto) Lymph # (Auto) Bowman # (Auto) Eos # (Auto) Baso # (Auto) Abs Immat Gran (auto) Absolute Neuts (auto) Absolute Nucleated RBC Nucleated RBC % (auto) VBG pH 7.28 L VBG pCO2 58 VBG pO2 85 VBG HCO3 28 H VBG O2 Saturation 96.0 VBG Base Excess 0.8 Anion Gap Estim Creat Clear Calc Estimated GFR POC Glucose 97 Random Glucose Calcium Magnesium Total Bilirubin Direct Bilirubin AST ALT Alkaline Phosphatase Troponin I High Sens B-Natriuretic Peptide Total Protein Albumin Urine Color Yellow Urine Appearance Cloudy Urine pH 5.5 Ur Specific [place] 1.010 Urine Protein 100 (2+) H Urine Glucose (UA) 250 H Urine Ketones Negative Urine Blood Moderate (2+) H Urine Nitrite Negative Ur Leukocyte Esterase Large (3+) H Urine RBC 3-5 H Urine WBC 21-50 Urine WBC Clumps Present Ur Squamous Epith Cells 3-5 Urine Bacteria Trace Hyaline Casts 0-2 Urine Yeast Present Influenza Type A (PCR) Influenza Type B (PCR) RSV RNA Qual (PCR) SARS-CoV-2 RNA (RT-PCR) 04/03/25 04/03/25 04/03/25 16:24 16:56 20:54 MCV MCH MCHC RDW Plt Count MPV Immature Gran % (Auto) Neut % (Auto) Lymph % (Auto) Bowman % (Auto) Eos % (Auto) Baso % (Auto) Lymph # (Auto) Bowman # (Auto) Eos # (Auto) Baso # (Auto) Abs Immat Gran (auto) Absolute Neuts (auto) Absolute Nucleated RBC Nucleated RBC % (auto) VBG pH 7.38 7.42 VBG pCO2 45 41 VBG pO2 127 201 VBG HCO3 27 H 27 H VBG O2 Saturation TNP 100.0 VBG Base Excess 2.3 2.6 Anion Gap Estim Creat Clear Calc Estimated GFR POC Glucose 87 Random Glucose Calcium Magnesium Total Bilirubin Direct Bilirubin AST ALT Alkaline Phosphatase Troponin I High Sens B-Natriuretic Peptide Total Protein Albumin Urine Color Urine Appearance Urine pH Ur Specific [place] Urine Protein Urine Glucose (UA) Urine Ketones Urine Blood Urine Nitrite Ur Leukocyte Esterase Urine RBC Urine WBC Urine WBC Clumps Ur Squamous Epith Cells Urine Bacteria Hyaline Casts Urine Yeast Influenza Type A (PCR) Influenza Type B (PCR) RSV RNA Qual (PCR) SARS-CoV-2 RNA (RT-PCR) 04/04/25 04/04/25 05:16 07:27 MCV 95.8 MCH 27.2 MCHC 28.4 L RDW 15.2 Plt Count 331 MPV 9.2 L Immature Gran % (Auto) 0.5 H Neut % (Auto) 84.3 H Lymph % (Auto) 6.2 L Bowman % (Auto) 6.3 Eos % (Auto) 2.1 Baso % (Auto) 0.6 Lymph # (Auto) 0.4 L Bowman # (Auto) 0.4 Eos # (Auto) 0.1 Baso # (Auto) 0.0 Abs Immat Gran (auto) 0.03 Absolute Neuts (auto) 5.3 Absolute Nucleated RBC 0.000 Nucleated RBC % (auto) 0.0 VBG pH VBG pCO2 VBG pO2 VBG HCO3 VBG O2 Saturation VBG Base Excess Anion Gap 16 Estim Creat Clear Calc 29.3 Estimated GFR 24 POC Glucose 90 Random Glucose 120 H Calcium 7.5 L Magnesium Total Bilirubin Direct Bilirubin AST ALT Alkaline Phosphatase Troponin I High Sens B-Natriuretic Peptide Total Protein Albumin Urine Color Urine Appearance Urine pH Ur Specific [place] Urine Protein Urine Glucose (UA) Urine Ketones Urine Blood Urine Nitrite Ur Leukocyte Esterase Urine RBC Urine WBC Urine WBC Clumps Ur Squamous Epith Cells Urine Bacteria Hyaline Casts Urine Yeast Influenza Type A (PCR) Influenza Type B (PCR) RSV RNA Qual (PCR) SARS-CoV-2 RNA (RT-PCR) Microbiology Microbiology Results: Microbiology 04/03/25 Unknown Urine Culture - Preliminary Urine Catheterized - Moyer Catheter Enterococcus/Streptococcus sp Assessment and Plan (1) Acute on chronic respiratory failure: Status: Acute (2) CHF exacerbation: Status: Acute Plan This is a 79-year-old female with pertinent history of chronic hypoxemic respiratory failure due to COPD on 2 L supplemental oxygen, morbid obesity with TEZ noncompliant with CPAP, 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 #. Acute on chronic hypercapnic hypoxemic respiratory failure due to acute on chronic diastolic congestive heart failure and acute exacerbation of COPD: Initially required BiPAP in the ER. Initiated IV Lasix. Strict I's and O's. Low-salt diet. Also initiated systemic steroids, scheduled and p.r.n. DuoNebs. Continue home inhaler #. MARJORIE on CKD stage 4: Cardiorenal type 1 in the setting of above. Improving with IV diuresis #. UTI: Previous cultures with Enterococcus faecalis and Providencia. Initiating ampicillin and ceftriaxone. Follow urine culture #. Normocytic anemia: Obtaining B12, folate, iron panel. Noted hemoglobin 7.1. Will order 1 unit PRBC to prevent high output failure. #. Insulin-dependent diabetes mellitus: Initiating Accu-Cheks with sliding scale insulin. Reduce hold basal insulin once med rec verified #. Hypothyroidism: On Synthroid #. Obesity/TEZ: CPAP at bedtime. Counseled regarding weight loss #. Venous stasis to lower extremities: Consulting Wound Care #. Mood disorder: Continue home mood stabilizers Med rec pending DVT prophylaxis: Lovenox Full code. Discussed with patient at bedside Reason for continued hospitalization: IV diuresis, ongoing dyspnea Quality Stroke Does the patient have a stroke diagnosis?: No VTE Prior VTE?: No VTE Risk Level:: Medical - moderate - high VTE Device Contraindication: Treatment Not Indicated VTE Drug Contraindication: N/A - Med Ordered
[2025-04-04] MEDS: predniSONE 20 MG TABLET 40 MG PO (09:57)
[2025-04-04] MEDS: Furosemide 40 MG/4 ML VIAL IVPUSH ×2 (10:06→23:39)
[2025-04-04 10:54] LABS: Iron 25 mcg/dL (30-160); Percent Iron Saturation 10 % (15-50); Total Iron Binding Capacity 262 mcg/dL (228-428); Unsaturated Iron Binding 237 ug/dL
[2025-04-04 11:44] LABS: Folate 6.7 ng/mL (> or = 4.0); Vitamin B12 222 pg/mL (200-900)
[2025-04-04 11:57] LABS: Glucose, Whole Blood 152 mg/dL (60-115)
--- NOTE | 2025-04-04 12:32 | MHC.CM.PN ---
IMM DELIVERED PT LIVES WITH SON, WHO ASSIST PT NEEDED. PT IS PRIMAILY CHAIR BOUND, HAS A LIFT CHAIR AND TRIPOD WALKER WHEN GETTING DRESSED. PT IS 02 DEPENDENT AT HOME VIA [facility]. PT IS ACTIVE WITH [facility] + [facility] FOR NURSING. + HCP ON FILE AND VERIFIED. [place] [facility] [place] HOME WITH RESUMPTION OF COMFORT + [facility] AND SON'S SUPPORT. PT WILL NEED BLS TRANSPORT DUE TO 02 NEEDS. CM WILL CONTINUE TO FOLLOW FOR ANY CHANGE TO DC PLAN/NEEDS.
[2025-04-04] MEDS: Ferrous Sulfate 324 MG TABLET.DR PO (12:36)
[2025-04-04] MEDS: Insulin Lispro 100 UNIT/ML 3 ML VIAL SUBCUT ×2 (12:36→23:45)
[2025-04-04] MEDS: Ampicillin Sodium 2 GM in 0.9 % Sodium Chloride 100 ML IV ×2 (12:37→23:49)
--- NOTE | 2025-04-04 12:56 | HO.WOUND ---
Wound Consult: Initial 79yr old?female admitted to [facility] [place] 04/03/25 21:49 - See progress notes and H&P for detailed history.? Wound consult placed for Bilateral Lower Legs.? Patient agreeable to assessment and photo documentation.? Sacrum / coccyx and Bilateral Ischium Etiology: ??Crhonic MASD - IAD Present on Admission Wound Bed: darl maroon purple intact tissue remains intact and blanchable at this time. Drainage / Odor: None Edges: ? irregular Patria wound: intact No Induration, Fluctuance or Warmth noted Pain: tenderness and pain to coccyx noted Goals of Treatment: ? Off load pressure and protect from friction moisture and pressure Of note the sacrum coccyx has previously noted stage 3 pressure injury per chrta review it is important to know Tensil strength is only 80% after full thickness tissue damage (Stage 3 PI). This puts the patient at risk for reopening pressure injury - all preventative measures should be employed to prevent reopening of Pressure injury. Right Leg Left L;eg Bilateral Lower Legs Etiology: ?Venous Dermatitis / Wounds Wound Bed: partial thickness tissue loss with scant yellow slough and red moist wound beds Drainage / Odor: scant charlton yellow drainage - there is odor noted but no other s/s of infection at this time - patient reports the dressings had not been changed since last thursday this could account for the odor with the lower leg - direct care team will monitor and report s/s of infection to provider. Edges: ? attached Patria wound: dry thick scaling plaguing tissue ? No Induration, Fluctuance or Warmth noted Pain: tenderness reported throughout body Goals of Treatment: ? Moisture management with Durafiber AG Recommendations: 1. Turn and Reposition every 2 hours and as needed for patient comfort.? Use pillows or wedges to support off loading positions. 2. Off Load all bony prominences with use of pillows and heel boots if needed.? Apply Preventative foams where needed. ? 3. Monitor for incontinence and moisture control, use barrier creams when needed for prevention and treatment. 4. Provide adequate and supplemental nutrition.? 5. Order low air loss mattress. 6. When applicable maintain blood glucose levels per Providers order. Sacrum / Coccyx - Off Load Pressure with Q2 hr turns and use of pillows - Routine cleansing.? Apply skin prep allow to dry.? Cover with foam dressing to aid in off loading and protection from friction. Change every 3 days and PRN. Bilateral Ischium - Off Load Pressure with Q2 hr turns and use of pillows - Cleanse with PH balance spray or wipes, pat dry. ?Apply thin layer of barrier cream to affected area.? Apply twice daily and Reapply thin layer PRN after each episode of incontinence. Bilateral Lower Legs - Elevate lower legs off of surface of bed with use of pillows.? Cleanse with NS, Pat dry.? Apply Ammonium Lactate to both legs, apply layer of Durafiber to open wound beds secure with ABD pad, gauze wrap and tape.? Change Daily. Skin Folds - Cleanse with PH balance wipes, pat dry with soft cloth.? Apply antifungal power to assist with moisture management.? Be sure to dust of excess powder to prevent caking on skin and in folds. Apply per provider orders. Tuck Interdry AG Sheet into skin fold to wick and translocate moisture away from skin fold.? Be sure to leave at least 2 inch of fabric exposed outside of skin fold.? Change after 5 days or when soiled. Re-consult wound care Nurse for wound deterioration or wound changes.
[2025-04-04 16:30] LABS: Glucose, Whole Blood 240 mg/dL (60-115)
[2025-04-04] MEDS: diazePAM 10 MG/2 ML CARTRIDGE 5 MG IVPUSH (16:33)
[2025-04-04 16:47] LABS: ABG Base Excess 5.4 mmol/L; ABG HCO3 32 mmol/L (22-26); ABG pCO2 63 mmHg (32-45); ABG pH 7.31 (7.35-7.45); ABG pO2 37 mmHg (83-108)
[2025-04-04 18:36] LABS: VBG Base Excess 2.3 mmol/L; VBG HCO3 28 mmol/L (22-26); VBG pCO2 49 mmHg; VBG pH 7.35 (7.32-7.43); VBG pO2 72 mmHg
[2025-04-04 18:40] LABS: Venous Blood Gas Refer to POC result
[2025-04-04] MEDS: acetaZOLAMIDE sodium 500 MG VIAL IVPUSH (18:42)
--- NOTE | 2025-04-04 19:39 | PC.NURSE ---
Pt reports feeling increasingly anxious and having panic attack . RR 30 and feeling SOB. Nebulizer given and placed on CPAP. Dr. Bhatti in to see patient. Ordered Diazepam and ABG's. pCo2 63. Placed on BIPAP. VBG's collected after 1 hour. pCo2 49. Reported to Dr. Bhatti. Placed back on NC @ 2.5L. Pt feels less anxious but still slightly SOB, RR 26. Able to make full sentences and is eating dinner. IV diamox given per order. Blood transfusion up @ 1800.
[2025-04-04] MEDS: Insulin Glargine,Hum.rec.anlog 100 UNIT/ML 10 ML VIAL 20 UNIT SUBCUT (20:03)
[2025-04-04] MEDS: Atorvastatin Calcium 40 MG TABLET PO (20:03)
[2025-04-04] MEDS: gemfibroziL 600 MG TABLET PO (20:03)
[2025-04-04 20:58] LABS: Glucose, Whole Blood 276 mg/dL (60-115)
[2025-04-04] MEDS: Morphine Sulfate 2 MG/ML CARTRIDGE IVPUSH (21:32)
[2025-04-04 21:54] LABS: VBG Base Excess 1.8 mmol/L; VBG HCO3 26 mmol/L (22-26); VBG pCO2 41 mmHg; VBG pO2 146 mmHg
[2025-04-04 21:54] LABS: Venous Blood Gas Refer to POC result
[2025-04-04 22:10] LABS: B Type Natriuretic Peptide 861 pg/mL (<100)
[2025-04-04 23:39] LABS: ABG Refer to POC result
[2025-04-04] MEDS: Enoxaparin Sodium 30 MG/0.3 ML SYRINGE SUBCUT (23:40)
[2025-04-04] MEDS: cefTRIAXone sodium 1 GM VIAL IVPUSH (23:47)
[2025-04-05] VITALS (15 sets, daily range): BP systolic 133–155; BP diastolic 63–68; PULSE 55–86; RESP 18–48; TEMP 36.1–36.4; O2SAT 95–100
[2025-04-05 00:14] LABS: Glucose, Whole Blood 251 mg/dL (60-115)
--- NOTE | 2025-04-05 05:31 | PM.EVENT ---
Event Note Date of Service: 04/05/25 Event Note: Patient with dyspnea and tachypnea overnight after she finished PRBC transfusion. Obtained chest x-ray, VBG and BNP. Gave additional IV 40mg Lasix and placed patient on home CPAP. Symptoms significantly improved with intervention. Time Spent With Patient Time: Total time managing care of this patient today ____ minutes.
[2025-04-05] MEDS: Levothyroxine Sodium 200 MCG TABLET PO (05:46)
[2025-04-05 05:50] LABS: MANUAL DIFF FLAG NO
[2025-04-05 05:59] LABS: Basophils Percent Auto 0.7 % (0-2); Eosinophils Percent Auto 0.7 % (0-4); Hematocrit 28.2 % (37.0-47.0); Hemoglobin 8.3 g/dl (12.0-16.0); Imm Gran Abs Auto 0.03 X10*3/uL (0.00-0.03); Imm Gran Pct Auto 0.5 % (0.0-0.4); Lymphocytes Absolute Auto 0.3 X10*3/uL (1.2-4.9); Lymphocytes Percent Auto 4.9 % (20-40); Mean Corpuscular HGB Conc 29.4 g/dl (31.0-35.0); Mean Corpuscular Hemoglobin 28.4 pg (27.0-33.0); Mean Corpuscular Volume 96.6 fL (80.0-98.0); Mean Platelet Volume 9.2 fL (9.4-12.3); Monocytes Absolute Auto 0.5 X10*3/uL (0.1-1.2); Monocytes Percent Auto 7.8 % (2-11); Neutrophils Percent Auto 85.4 % (45-73); Platelet Count 279 X10*3/uL (160-400); Red Blood Count 2.92 X10*6/uL (4.20-5.50); Red Cell Distribution Width 15.7 % (11.0-16.0); White Blood Count 5.9 X10*3/uL (4.8-10.8)
[2025-04-05 06:10] LABS: Anion Gap 16 (12-20); Blood Urea Nitrogen 74 mg/dL (9-16); Calcium 7.3 mg/dL (8.4-10.2); Carbon Dioxide 28 mmol/L (22-29); Chloride 107 mmol/L (96-108); Creatinine Clr Calc Pharmacy 31.4; Estimated Glomerular Filt Rate 26; Glucose Random 95 mg/dL (60-115); Potassium 4.8 mmol/L (3.3-5.1); Sodium 146 mmol/L (135-145)
[2025-04-05] MEDS: Albuterol/Iprat 2.5/0.5MG 3 ML AMPUL.NEB INHALE ×4 (07:32→19:18)
[2025-04-05 07:34] LABS: Glucose, Whole Blood 66 mg/dL (60-115)
[2025-04-05 08:59] LABS: Glucose, Whole Blood 129 mg/dL (60-115)
[2025-04-05] MEDS: Furosemide 40 MG/4 ML VIAL IVPUSH ×2 (09:37→15:36)
[2025-04-05] MEDS: Ampicillin Sodium 2 GM in 0.9 % Sodium Chloride 100 ML IV (09:40)
[2025-04-05] MEDS: 0.9 % Sodium Chloride Flush 3 ML SYRINGE IVFLUSH ×2 (09:47→15:38)
[2025-04-05] MEDS: gemfibroziL 600 MG TABLET PO ×2 (09:49→22:00)
[2025-04-05] MEDS: Ferrous Sulfate 324 MG TABLET.DR PO (09:49)
[2025-04-05] MEDS: amLODIPine Besylate 5 MG TABLET PO (09:49)
[2025-04-05] MEDS: predniSONE 20 MG TABLET 40 MG PO (09:49)
[2025-04-05] MEDS: Sertraline HCL 50 MG TABLET PO (09:50)
[2025-04-05] MEDS: Sodium Bicarbonate 650 MG TABLET PO (09:51)
[2025-04-05 11:27] LABS: Glucose, Whole Blood 130 mg/dL (60-115)
--- NOTE | 2025-04-05 12:27 | MHC.CM.PN ---
EMR REVIEWED AND PER MD ROUNDS, PT IS NOT YET MEDICALLY CLEARED FOR DC (IV LASIX, SOB) COMFORT + [facility] UPDATED. CM WILL CONTINUE TO FOLLOW FOR ANY CHANGE TO DC PLAN.
[2025-04-05 15:05] LABS: VBG Base Excess 3.3 mmol/L; VBG HCO3 28 mmol/L (22-26); VBG pCO2 47 mmHg; VBG pH 7.38 (7.32-7.43); VBG pO2 210 mmHg
[2025-04-05 15:06] LABS: Venous Blood Gas Refer to POC result
[2025-04-05] MEDS: diazePAM 10 MG/2 ML CARTRIDGE 2.5 MG IVPUSH (15:34)
[2025-04-05 16:05] LABS: Glucose, Whole Blood 243 mg/dL (60-115)
[2025-04-05 16:06] LABS: B Type Natriuretic Peptide 644 pg/mL (<100)
--- NOTE | 2025-04-05 16:52 | P.CONPL_ITS ---
History of Present Illness History of Present Illness Consult date: 04/05/25 Chief complaint: dyspnea Narrative: 79-year-old lady with underlying COPD on 2 L of supplemental oxygen, morbid obesity, TEZ noncompliant with CPAP, ohs, pulmonary hypertension secondary to left heart failure, chronic diastolic congestive heart failure, CKD 4, and diabetes mellitus admitted on 04/03/2025 with worsening dyspnea, orthopnea, and lower extremity edema. Patient with initial requirement for BiPAP support, later titrated down to CPAP. Her chest x-ray demonstrate still significant pulmonary edema. Her blood test demonstrate no evidence of acute CO2 retention. She remains significantly anxious and tachypneic. Review of Systems 2 Cardiovascular: Cardiovascular: Reports pedal edema, Reports dyspnea, Reports dyspnea on exertion, Reports orthopnea and Reports paroxysmal nocturnal dyspnea Respiratory: Respiratory: Denies cough, Denies hemoptysis, Reports dyspnea, Reports dyspnea on exertion and Denies wheezing Allergic/Immunologic: Allergic/Immunologic: Denies wheezing PMFSH Past Medical History Medical History Generalized anxiety disorder COPD (chronic obstructive pulmonary disease) CHF (congestive heart failure) Anemia Herpes zoster MARJORIE (acute kidney injury) Left bundle branch block Morbid obesity Chronic pain syndrome Anxiety Pernicious anemia CHF (congestive heart failure) Hypothyroidism Essential hypertension Diabetes mellitus Pure hypercholesterolemia Family History Family History Father CVD (cardiovascular disease) Mother No problems noted. Family/Other FH: mental illness Surgical History Surgical History H/O left knee surgery Deficient knowledge of leg surgery History of tonsillectomy and adenoidectomy History of appendectomy Social History Social History Household Members: Family Household Members Other:: son Housing: House Do you presently have visiting nurse or other home services: Yes (vna) Alcohol intake: unknown Patient Tobacco Use Status: Former Tobacco user Tobacco use type: Cigarette e-Cigarette/Vaping Use: Never Used Second Hand Smoke Exposure: No Currently Displaying Signs/Symptoms of Drug Intoxication Withdrawal: No Have you been hit, kicked, punched, or otherwise hurt by someone within the past year? If so, by whom?: No Do you feel safe in your current relationship?: No Current Relationship Is there a partner from a previous relationship who is making you feel unsafe now?: No Are you made to feel afraid or neglected: No Advance Directives: Yes Advance Directives Information Provided: Yes Advance Directives on File: Yes Advance Directives Date on File: 06/24/24 Do you have a plan to hurt others: No Plan Recently lost weight without trying: No Eating poorly because of decreased appetite: No Nutrition Risks: No Nutritional Risk Patient : No : No Poor oral hygiene: No (dentures) service: No Current occupational status: disabled Cognitive needs: Yes (Wheelchair, Lift chair) Hearing needs: No Vision needs: Yes (Glasses) Meds Allergies Allergy/AdvReac Type Severity Reaction Status Date / Time ibuprofen [From Motrin] Allergy Unknown swelling Verified 04/03/25 10:32 codeine [CODEINE] AdvReac Unknown SLEEPY Verified 04/03/25 10:32 Active Medications: Current Medications Acetaminophen (Acetaminophen 325 Mg Tablet) 650 mg PO Q6H PRN PRN Reason: Pain, Mild 1-3,fever,headache Albuterol Sulfate (Albuterol Sulfate 90 Mcg 8 Gm Inhaler) 2 puff INHALE Q6H PRN PRN Reason: shortness of breath or wheezing Albuterol/Ipratropium (Albuterol/Iprat 2.5/0.5mg 3 Ml Ampul.Neb) 3 ml INHALE Q4H PRN PRN Reason: Shortness of Breath/Wheezing Albuterol/Ipratropium (Albuterol/Iprat 2.5/0.5mg 3 Ml Ampul.Neb) 3 ml INHALE RQ4H WHILE AWAKE [facility] Last Admin: 04/05/25 15:23 Dose: 3 ml Amlodipine Besylate (Amlodipine Besylate 5 Mg Tablet) 5 mg PO DAILY [facility]; Protocol Last Admin: 04/05/25 09:49 Dose: 5 mg Atorvastatin Calcium (Atorvastatin Calcium 40 Mg Tablet) 40 mg PO BEDTIME [facility] Last Admin: 04/04/25 20:03 Dose: 40 mg Benzonatate (Benzonatate 100 Mg Capsule) 100 mg PO TID PRN PRN Reason: Cough Calcium Carbonate (Calcium Carbonate 750 Mg Tab.Chew) 750 mg PO Q4H PRN PRN Reason: Heartburn Ceftriaxone Sodium (Ceftriaxone Sodium 1 Gm Vial) 1 gm IVPUSH Q24H [facility] Last Admin: 04/04/25 23:47 Dose: 1 gm Dextrose (Dextrose 50 % 25 Gm/50 Ml Syringe) 25 gm IVPUSH Q15M PRN; Protocol PRN Reason: per Hypoglycemia Standing Ord. Enoxaparin Sodium (Enoxaparin Sodium 30 Mg/0.3 Ml Syringe) 30 mg SUBCUT Q24H [facility] Last Admin: 04/04/25 23:40 Dose: 30 mg Ferrous Sulfate (Ferrous Sulfate 324 Mg Tablet.Dr) 324 mg PO DAILY [facility] Last Admin: 04/05/25 09:49 Dose: 324 mg Gemfibrozil (Gemfibrozil 600 Mg Tablet) 600 mg PO BID [facility] Last Admin: 04/05/25 09:49 Dose: 600 mg Glucose (Glucose Gel 15 Gm Gel..Gram.) 15 gm PO Q15M PRN; Protocol PRN Reason: per Hypoglycemia Standing Ord. Ampicillin Sodium 2 gm/ Sodium (Chloride) 100 mls @ 200 mls/hr IV Q12H [facility] Last Infusion: 04/05/25 10:19 Dose: Infused Furosemide 200 mg/ Sodium (Chloride) 100 mls @ 1.5 mls/hr IVCONT .Q24H [facility] Insulin Glargine (Insulin Glargine,Hum.Rec.Anlog 100 Unit/Ml 10 Ml Vial) 20 unit SUBCUT DAILY@1900 [facility] Last Admin: 04/04/25 20:03 Dose: 20 unit Insulin Human Lispro (Insulin Lispro 100 Unit/Ml 3 Ml Vial) 0 unit SUBCUT QIDACHS [facility]; Protocol Last Admin: 04/05/25 11:37 Dose: Not Given Levothyroxine Sodium (Levothyroxine Sodium 200 Mcg Tablet) 200 mcg PO DAILY@0600 [facility] Last Admin: 04/05/25 05:46 Dose: 200 mcg Magnesium Hydroxide (Milk Of Magnesia 30 Ml Oral.Susp) 30 ml PO DAILY PRN PRN Reason: Constipation Melatonin (Melatonin 3 Mg Tablet) 6 mg PO BEDTIME PRN PRN Reason: Insomnia Ondansetron HCl (Ondansetron Hcl 4 Mg/2 Ml Vial) 4 mg IVPUSH Q8H PRN PRN Reason: Nausea and Vomiting Prednisone (Prednisone 20 Mg Tablet) 40 mg PO DAILY [facility] Last Admin: 04/05/25 09:49 Dose: 40 mg Sertraline HCl (Sertraline Hcl 50 Mg Tablet) 50 mg PO DAILY [facility] Last Admin: 04/05/25 09:50 Dose: 50 mg Sodium Bicarbonate (Sodium Bicarbonate 650 Mg Tablet) 650 mg PO DAILY [facility] Last Admin: 04/05/25 09:51 Dose: 650 mg Sodium Chloride (0.9 % Sodium Chloride Flush 3 Ml Syringe) 3 ml IVFLUSH QSHIFT [facility] Last Admin: 04/05/25 15:38 Dose: 3 ml Home Medications ?Medication ?Instructions ?Recorded ?Confirmed ?Last Taken ?Type insulin glargine 100 unit/mL (3 25 unit subcut DAILY@1900 04/04/25 04/04/25 04/02/25 History mL) subcutaneous pen (Basaglar KwikPen U-100 Insulin) Physical Exam 2 Vital Signs: Vital Signs: Last Vital Signs Temp 97.6 F 04/05/25 15:27 Pulse 74 04/05/25 15:27 Resp 20 04/05/25 15:27 BP 146/65 H 04/05/25 15:27 Pulse Ox 97 04/05/25 15:27 O2 Del Method BiPAP 04/05/25 15:27 O2 Flow Rate 2 04/05/25 15:27 FiO2 30 04/03/25 15:43 Oxygen Flow Rate 3 04/03/25 10:33 BMI result Body Mass Index 43.2 Const: General: no acute distress, alert and awake Nutritional Appearance: obese Eyes: Sclerae: sclerae normal EOM: EOMs intact bilaterally Neck: Neck: Yes no lymphadenopathy, Yes trachea midline and Yes supple Resp: Effort & Inspection: normal respiratory effort and no respiratory distress Auscultation: clear to auscultation bilaterally Cardio: Rate: regular rate Rhythm: regular rhythm Heart sounds: no gallops, no murmurs and no rubs GI: Palpation (GI): Soft to palpation and Other GI palpation findings present ( Nontender) Auscultation: normal bowel sounds Extrem: General: No clubbing, No cyanosis and Yes edema (2+ bilateral) Results Laboratory Findings 04/05/25 05:27 04/05/25 05:27 Abnormal lab findings: Abnormal Labs 04/03/25 04/03/25 04/03/25 11:06 11:10 13:35 RBC 2.79 L Hgb 7.7 L Hct 27.2 L MCHC 28.3 L MPV 9.0 L Immature Gran % (Auto) 1.0 H Neut % (Auto) 82.9 H Lymph % (Auto) 5.1 L Lymph # (Auto) 0.3 L Abs Immat Gran (auto) 0.07 H Absolute Nucleated RBC 0.030 H Nucleated RBC % (auto) 0.4 H ABG pH at Pt Temp ABG pCO2 at Pt Temp ABG pO2 at Pt Temp ABG HCO3 VBG pH 7.25 L VBG HCO3 29 H Sodium 146 H Chloride BUN 79 H Creatinine 2.23 H POC Glucose Random Glucose 142 H Calcium 7.6 L D Magnesium 2.7 H Iron % Saturation Alkaline Phosphatase 123 H Troponin I High Sens 19.0 H 18.5 H B-Natriuretic Peptide 732 H Albumin 3.4 L Urine Protein Urine Glucose (UA) Urine Blood Ur Leukocyte Esterase Urine RBC Crossmatch 04/03/25 04/03/25 04/03/25 13:40 14:30 16:56 RBC Hgb Hct MCHC MPV Immature Gran % (Auto) Neut % (Auto) Lymph % (Auto) Lymph # (Auto) Abs Immat Gran (auto) Absolute Nucleated RBC Nucleated RBC % (auto) ABG pH at Pt Temp ABG pCO2 at Pt Temp ABG pO2 at Pt Temp ABG HCO3 VBG pH 7.28 L VBG HCO3 28 H 27 H Sodium Chloride BUN Creatinine POC Glucose Random Glucose Calcium Magnesium Iron % Saturation Alkaline Phosphatase Troponin I High Sens B-Natriuretic Peptide Albumin Urine Protein 100 (2+) H Urine Glucose (UA) 250 H Urine Blood Moderate (2+) H Ur Leukocyte Esterase Large (3+) H Urine RBC 3-5 H Crossmatch 04/03/25 04/04/25 04/04/25 20:54 05:16 10:16 RBC 2.61 L Hgb 7.1 L Hct 25.0 L MCHC 28.4 L MPV 9.2 L Immature Gran % (Auto) 0.5 H Neut % (Auto) 84.3 H Lymph % (Auto) 6.2 L Lymph # (Auto) 0.4 L Abs Immat Gran (auto) Absolute Nucleated RBC Nucleated RBC % (auto) ABG pH at Pt Temp ABG pCO2 at Pt Temp ABG pO2 at Pt Temp ABG HCO3 VBG pH VBG HCO3 27 H Sodium 147 H Chloride 110 H BUN 74 H Creatinine 1.98 H POC Glucose Random Glucose 120 H Calcium 7.5 L Magnesium Iron 25 L % Saturation 10 L Alkaline Phosphatase Troponin I High Sens B-Natriuretic Peptide Albumin Urine Protein Urine Glucose (UA) Urine Blood Ur Leukocyte Esterase Urine RBC Crossmatch See Detail 04/04/25 04/04/25 04/04/25 11:53 16:21 16:43 RBC Hgb Hct MCHC MPV Immature Gran % (Auto) Neut % (Auto) Lymph % (Auto) Lymph # (Auto) Abs Immat Gran (auto) Absolute Nucleated RBC Nucleated RBC % (auto) ABG pH at Pt Temp 7.31 L ABG pCO2 at Pt Temp 63 H* ABG pO2 at Pt Temp 37 L* ABG HCO3 32 H VBG pH VBG HCO3 Sodium Chloride BUN Creatinine POC Glucose 152 H 240 H Random Glucose Calcium Magnesium Iron % Saturation Alkaline Phosphatase Troponin I High Sens B-Natriuretic Peptide Albumin Urine Protein Urine Glucose (UA) Urine Blood Ur Leukocyte Esterase Urine RBC Crossmatch 04/04/25 04/04/25 04/04/25 18:28 20:48 21:43 RBC Hgb Hct MCHC MPV Immature Gran % (Auto) Neut % (Auto) Lymph % (Auto) Lymph # (Auto) Abs Immat Gran (auto) Absolute Nucleated RBC Nucleated RBC % (auto) ABG pH at Pt Temp ABG pCO2 at Pt Temp ABG pO2 at Pt Temp ABG HCO3 VBG pH VBG HCO3 28 H Sodium Chloride BUN Creatinine POC Glucose 276 H Random Glucose Calcium Magnesium Iron % Saturation Alkaline Phosphatase Troponin I High Sens B-Natriuretic Peptide 861 H Albumin Urine Protein Urine Glucose (UA) Urine Blood Ur Leukocyte Esterase Urine RBC Crossmatch 04/04/25 04/05/25 04/05/25 23:43 05:27 08:54 RBC 2.92 L Hgb 8.3 L Hct 28.2 L MCHC 29.4 L MPV 9.2 L Immature Gran % (Auto) 0.5 H Neut % (Auto) 85.4 H Lymph % (Auto) 4.9 L Lymph # (Auto) 0.3 L Abs Immat Gran (auto) Absolute Nucleated RBC Nucleated RBC % (auto) ABG pH at Pt Temp ABG pCO2 at Pt Temp ABG pO2 at Pt Temp ABG HCO3 VBG pH VBG HCO3 Sodium 146 H Chloride BUN 74 H Creatinine 1.86 H POC Glucose 251 H 129 H Random Glucose Calcium 7.3 L Magnesium Iron % Saturation Alkaline Phosphatase Troponin I High Sens B-Natriuretic Peptide Albumin Urine Protein Urine Glucose (UA) Urine Blood Ur Leukocyte Esterase Urine RBC Crossmatch 04/05/25 04/05/25 04/05/25 11:21 15:02 15:26 RBC Hgb Hct MCHC MPV Immature Gran % (Auto) Neut % (Auto) Lymph % (Auto) Lymph # (Auto) Abs Immat Gran (auto) Absolute Nucleated RBC Nucleated RBC % (auto) ABG pH at Pt Temp ABG pCO2 at Pt Temp ABG pO2 at Pt Temp ABG HCO3 VBG pH VBG HCO3 28 H Sodium Chloride BUN Creatinine POC Glucose 130 H Random Glucose Calcium Magnesium Iron % Saturation Alkaline Phosphatase Troponin I High Sens B-Natriuretic Peptide 644 H Albumin Urine Protein Urine Glucose (UA) Urine Blood Ur Leukocyte Esterase Urine RBC Crossmatch 04/05/25 15:56 RBC Hgb Hct MCHC MPV Immature Gran % (Auto) Neut % (Auto) Lymph % (Auto) Lymph # (Auto) Abs Immat Gran (auto) Absolute Nucleated RBC Nucleated RBC % (auto) ABG pH at Pt Temp ABG pCO2 at Pt Temp ABG pO2 at Pt Temp ABG HCO3 VBG pH VBG HCO3 Sodium Chloride BUN Creatinine POC Glucose 243 H Random Glucose Calcium Magnesium Iron % Saturation Alkaline Phosphatase Troponin I High Sens B-Natriuretic Peptide Albumin Urine Protein Urine Glucose (UA) Urine Blood Ur Leukocyte Esterase Urine RBC Crossmatch Microbiology: Microbiology 04/03/25 Unknown Urine Catheterized - Moyer Catheter Urine Culture - Final Enterococcus faecalis Assessment and Plan (1) COPD (chronic obstructive pulmonary disease): Qualifiers: COPD type: emphysema Emphysema type: centrilobular Qualified Code(s): J43.2 - Centrilobular emphysema Status: Acute (2) Pulmonary hypertension: Status: Acute (3) CHF exacerbation: Status: Acute (4) Acute on chronic respiratory failure: Status: Acute Plan Impression: 79-year-old lady with underlying COPD, supplemental oxygen 2 L dependent, morbid obesity, TEZ, pulmonary hypertension, and chronic diastolic congestive heart failure admitted with dyspnea and hypoxia secondary to exacerbation of underlying congestive heart failure, improving slowly with diuresis. No evidence of acute CO2 retention, oxygenation is improving. Recommendations: Suggest further diuresis, consider diuretic drip. No evidence of acute COPD exacerbation at this time. Consider discontinuation of systemic glucocorticoids. Procedures Date of Service Date of Service: 04/05/25
--- NOTE | 2025-04-05 16:52 | HO.PM.IMPN ---
Subjective Subjective Date of Service: 04/05/25 Interval History: copd ,chf Review of Systems sob seems similar -somewhat improving with lasix . Review of Systems: Yes all other systems are reviewed and are negative Physical Exam Vital Signs: Vital Signs: Last Vital Signs Temp 97.6 F 04/05/25 15:27 Pulse 74 04/05/25 15:27 Resp 20 04/05/25 15:27 BP 146/65 H 04/05/25 15:27 Pulse Ox 97 04/05/25 15:27 O2 Del Method BiPAP 04/05/25 15:27 O2 Flow Rate 2 04/05/25 15:27 FiO2 30 04/03/25 15:43 Oxygen Flow Rate 3 04/03/25 10:33 BMI result Body Mass Index 43.2 Appearance: Alert.? Oriented X3. cvs: rrr, [id number] . res:air entry diminshed ,minimum wheezing ,few scattered rales at bases abd: no rebound or guarding ,nt, bs present. ext pulses present , no cyanosis neuro: axo3 , nonfocal. Objective Data Active Medications Acetaminophen (Acetaminophen 325 Mg Tablet) 650 mg PO Q6H PRN PRN Reason: Pain, Mild 1-3,fever,headache Albuterol Sulfate (Albuterol Sulfate 90 Mcg 8 Gm Inhaler) 2 puff INHALE Q6H PRN PRN Reason: shortness of breath or wheezing Albuterol/Ipratropium (Albuterol/Iprat 2.5/0.5mg 3 Ml Ampul.Neb) 3 ml INHALE Q4H PRN PRN Reason: Shortness of Breath/Wheezing Albuterol/Ipratropium (Albuterol/Iprat 2.5/0.5mg 3 Ml Ampul.Neb) 3 ml INHALE RQ4H WHILE AWAKE [facility] Last Admin: 04/05/25 15:23 Dose: 3 ml Documented By: RADHA Amlodipine Besylate (Amlodipine Besylate 5 Mg Tablet) 5 mg PO DAILY [facility]; Protocol Last Admin: 04/05/25 09:49 Dose: 5 mg Documented By: VIC Atorvastatin Calcium (Atorvastatin Calcium 40 Mg Tablet) 40 mg PO BEDTIME [facility] Last Admin: 04/04/25 20:03 Dose: 40 mg Documented By: DAVID Benzonatate (Benzonatate 100 Mg Capsule) 100 mg PO TID PRN PRN Reason: Cough Calcium Carbonate (Calcium Carbonate 750 Mg Tab.Chew) 750 mg PO Q4H PRN PRN Reason: Heartburn Ceftriaxone Sodium (Ceftriaxone Sodium 1 Gm Vial) 1 gm IVPUSH Q24H [facility] Last Admin: 04/04/25 23:47 Dose: 1 gm Documented By: DAVID Dextrose (Dextrose 50 % 25 Gm/50 Ml Syringe) 25 gm IVPUSH Q15M PRN; Protocol PRN Reason: per Hypoglycemia Standing Ord. Enoxaparin Sodium (Enoxaparin Sodium 30 Mg/0.3 Ml Syringe) 30 mg SUBCUT Q24H [facility] Last Admin: 04/04/25 23:40 Dose: 30 mg Documented By: DAVID Ferrous Sulfate (Ferrous Sulfate 324 Mg Tablet.Dr) 324 mg PO DAILY [facility] Last Admin: 04/05/25 09:49 Dose: 324 mg Documented By: VIC Gemfibrozil (Gemfibrozil 600 Mg Tablet) 600 mg PO BID [facility] Last Admin: 04/05/25 09:49 Dose: 600 mg Documented By: VIC Glucose (Glucose Gel 15 Gm Gel..Gram.) 15 gm PO Q15M PRN; Protocol PRN Reason: per Hypoglycemia Standing Ord. Ampicillin Sodium 2 gm/ Sodium (Chloride) 100 mls @ 200 mls/hr IV Q12H [facility] Last Infusion: 04/05/25 10:19 Dose: Infused Documented By: PHUC Furosemide 200 mg/ Sodium (Chloride) 100 mls @ 1.5 mls/hr IVCONT .Q24H [facility] Insulin Glargine (Insulin Glargine,Hum.Rec.Anlog 100 Unit/Ml 10 Ml Vial) 20 unit SUBCUT DAILY@1900 [facility] Last Admin: 04/04/25 20:03 Dose: 20 unit Documented By: DAVID Insulin Human Lispro (Insulin Lispro 100 Unit/Ml 3 Ml Vial) 0 unit SUBCUT QIDACHS [facility]; Protocol Last Admin: 04/05/25 11:37 Dose: Not Given Documented By: PHUC Non-Admin Reason: No Insulin Coverage Levothyroxine Sodium (Levothyroxine Sodium 200 Mcg Tablet) 200 mcg PO DAILY@0600 [facility] Last Admin: 04/05/25 05:46 Dose: 200 mcg Documented By: DAVID Magnesium Hydroxide (Milk Of Magnesia 30 Ml Oral.Susp) 30 ml PO DAILY PRN PRN Reason: Constipation Melatonin (Melatonin 3 Mg Tablet) 6 mg PO BEDTIME PRN PRN Reason: Insomnia Ondansetron HCl (Ondansetron Hcl 4 Mg/2 Ml Vial) 4 mg IVPUSH Q8H PRN PRN Reason: Nausea and Vomiting Prednisone (Prednisone 20 Mg Tablet) 40 mg PO DAILY [facility] Last Admin: 04/05/25 09:49 Dose: 40 mg Documented By: VIC Sertraline HCl (Sertraline Hcl 50 Mg Tablet) 50 mg PO DAILY [facility] Last Admin: 04/05/25 09:50 Dose: 50 mg Documented By: VIC Sodium Bicarbonate (Sodium Bicarbonate 650 Mg Tablet) 650 mg PO DAILY [facility] Last Admin: 04/05/25 09:51 Dose: 650 mg Documented By: VIC Sodium Chloride (0.9 % Sodium Chloride Flush 3 Ml Syringe) 3 ml IVFLUSH QSHIFT [facility] Last Admin: 04/05/25 15:38 Dose: 3 ml Documented By: MELISSA Labs 04/05/25 05:27 04/05/25 05:27 Labs: Laboratory Results - last 24 hr 04/04/25 04/04/25 04/04/25 10:16 18:28 20:48 MCV MCH MCHC RDW Plt Count MPV Immature Gran % (Auto) Neut % (Auto) Lymph % (Auto) Richardson % (Auto) Eos % (Auto) Baso % (Auto) Lymph # (Auto) Richardson # (Auto) Eos # (Auto) Baso # (Auto) Abs Immat Gran (auto) Absolute Neuts (auto) Absolute Nucleated RBC Nucleated RBC % (auto) VBG pH 7.35 VBG pCO2 49 VBG pO2 72 VBG HCO3 28 H VBG O2 Saturation 93.0 VBG Base Excess 2.3 Anion Gap Estim Creat Clear Calc Estimated GFR POC Glucose 276 H Random Glucose Calcium B-Natriuretic Peptide Blood Type O Positive Antibody Screen NEGATIVE Crossmatch See Detail 04/04/25 04/04/25 04/04/25 21:43 21:50 23:43 MCV MCH MCHC RDW Plt Count MPV Immature Gran % (Auto) Neut % (Auto) Lymph % (Auto) Richardson % (Auto) Eos % (Auto) Baso % (Auto) Lymph # (Auto) Richardson # (Auto) Eos # (Auto) Baso # (Auto) Abs Immat Gran (auto) Absolute Neuts (auto) Absolute Nucleated RBC Nucleated RBC % (auto) VBG pH 7.40 VBG pCO2 41 VBG pO2 146 VBG HCO3 26 VBG O2 Saturation 100.0 VBG Base Excess 1.8 Anion Gap Estim Creat Clear Calc Estimated GFR POC Glucose 251 H Random Glucose Calcium B-Natriuretic Peptide 861 H Blood Type Antibody Screen Crossmatch 04/05/25 04/05/25 04/05/25 05:27 07:17 08:54 MCV 96.6 MCH 28.4 MCHC 29.4 L RDW 15.7 Plt Count 279 MPV 9.2 L Immature Gran % (Auto) 0.5 H Neut % (Auto) 85.4 H Lymph % (Auto) 4.9 L Richardson % (Auto) 7.8 Eos % (Auto) 0.7 Baso % (Auto) 0.7 Lymph # (Auto) 0.3 L Richardson # (Auto) 0.5 Eos # (Auto) 0.0 Baso # (Auto) 0.0 Abs Immat Gran (auto) 0.03 Absolute Neuts (auto) 5.0 Absolute Nucleated RBC 0.000 Nucleated RBC % (auto) 0.0 VBG pH VBG pCO2 VBG pO2 VBG HCO3 VBG O2 Saturation VBG Base Excess Anion Gap 16 Estim Creat Clear Calc 31.4 Estimated GFR 26 POC Glucose 66 129 H Random Glucose 95 Calcium 7.3 L B-Natriuretic Peptide Blood Type Antibody Screen Crossmatch 04/05/25 04/05/25 04/05/25 11:21 15:02 15:26 MCV MCH MCHC RDW Plt Count MPV Immature Gran % (Auto) Neut % (Auto) Lymph % (Auto) Richardson % (Auto) Eos % (Auto) Baso % (Auto) Lymph # (Auto) Richardson # (Auto) Eos # (Auto) Baso # (Auto) Abs Immat Gran (auto) Absolute Neuts (auto) Absolute Nucleated RBC Nucleated RBC % (auto) VBG pH 7.38 VBG pCO2 47 VBG pO2 210 VBG HCO3 28 H VBG O2 Saturation TNP VBG Base Excess 3.3 Anion Gap Estim Creat Clear Calc Estimated GFR POC Glucose 130 H Random Glucose Calcium B-Natriuretic Peptide 644 H Blood Type Antibody Screen Crossmatch 04/05/25 15:56 MCV MCH MCHC RDW Plt Count MPV Immature Gran % (Auto) Neut % (Auto) Lymph % (Auto) Richardson % (Auto) Eos % (Auto) Baso % (Auto) Lymph # (Auto) Richardson # (Auto) Eos # (Auto) Baso # (Auto) Abs Immat Gran (auto) Absolute Neuts (auto) Absolute Nucleated RBC Nucleated RBC % (auto) VBG pH VBG pCO2 VBG pO2 VBG HCO3 VBG O2 Saturation VBG Base Excess Anion Gap Estim Creat Clear Calc Estimated GFR POC Glucose 243 H Random Glucose Calcium B-Natriuretic Peptide Blood Type Antibody Screen Crossmatch Microbiology Microbiology Results: Microbiology 04/03/25 Unknown Urine Culture - Final Urine Catheterized - Moyer Catheter Enterococcus faecalis Assessment and Plan (1) Acute on chronic respiratory failure: Status: Acute (2) CHF exacerbation: Status: Acute Assessment and Plan: 79-year-old female with pertinent history of chronic hypoxemic respiratory failure due to COPD on 2 L supplemental oxygen, morbid obesity with TEZ noncompliant with CPAP, 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 Acute on chronic hypercapnic hypoxemic respiratory failure due to acute on chronic diastolic congestive heart failure and acute exacerbation of COPD: patient is 5 liter negative i/o sob seems similar ,also feels very anxious plan: continue IV Lasix. Strict I's and O's. Low-salt diet. Also initiated systemic steroids, scheduled and p.r.n. DuoNebs.cpap pulm eval appreciated-started on Lasix drip, monitor I&O, renal function electrolytes. Avoid benzodiazepines. MARJORIE on CKD stage 4: Cardiorenal type 1 in the setting of above. Improving with IV diuresis UTI: Previous cultures with Enterococcus faecalis and Providencia. Initiating ampicillin and ceftriaxone. Follow urine culture Normocytic anemia: Obtaining B12, folate, iron panel. Noted hemoglobin 7.1. Will order 1 unit PRBC to prevent high output failure. Insulin-dependent diabetes mellitus: Initiating Accu-Cheks with sliding scale insulin. Reduce hold basal insulin once med rec verified Hypothyroidism: On Synthroid Obesity/TEZ: CPAP at bedtime. Counseled regarding weight loss Venous stasis to lower extremities: Consulting Wound Care Mood disorder: Continue home mood stabilizers DVT prophylaxis: Lovenox . Reason for continued hospitalization: IV diuresis, ongoing dyspnea.moniter renal function/electrolytes. Quality Stroke Does the patient have a stroke diagnosis?: No VTE Prior VTE?: No VTE Risk Level:: Medical - moderate - high VTE Device Contraindication: Treatment Not Indicated VTE Drug Contraindication: N/A - Med Ordered
[2025-04-05] MEDS: Furosemide 200 MG in 0.9 % Sodium Chloride 80 ML IVCONT (17:41)
[2025-04-05 21:10] LABS: Glucose, Whole Blood 208 mg/dL (60-115)
[2025-04-05] MEDS: Insulin Lispro 100 UNIT/ML 3 ML VIAL SUBCUT (22:00)
[2025-04-05] MEDS: Insulin Glargine,Hum.rec.anlog 100 UNIT/ML 10 ML VIAL 20 UNIT SUBCUT (22:00)
[2025-04-05] MEDS: Atorvastatin Calcium 40 MG TABLET PO (22:00)
[2025-04-05] MEDS: Enoxaparin Sodium 30 MG/0.3 ML SYRINGE SUBCUT (22:02)
[2025-04-06] VITALS (12 sets, daily range): BP systolic 117–127; BP diastolic 54–71; PULSE 54–82; RESP 18–29; TEMP 36.1–36.8; O2SAT 92–99
[2025-04-06] MEDS: cefTRIAXone sodium 1 GM VIAL IVPUSH ×2 (00:25→21:13)
[2025-04-06] MEDS: Nystatin Powder 15 GM BOTTLE 1 APPL TOPICAL ×3 (00:25→21:12)
[2025-04-06] MEDS: Melatonin 3 MG TABLET 6 MG PO ×2 (00:25→21:05)
[2025-04-06] MEDS: traMADoL HCL 50 MG TABLET PO (00:25)
[2025-04-06] MEDS: 0.9 % Sodium Chloride Flush 3 ML SYRINGE IVFLUSH ×4 (00:36→21:15)
[2025-04-06] MEDS: Ampicillin Sodium 2 GM in 0.9 % Sodium Chloride 100 ML IV ×3 (00:36→22:42)
[2025-04-06] MEDS: Levothyroxine Sodium 200 MCG TABLET PO (06:26)
[2025-04-06 07:28] LABS: Glucose, Whole Blood 151 mg/dL (60-115)
[2025-04-06 07:46] LABS: Hematocrit 27.5 % (37.0-47.0)
[2025-04-06] MEDS: Albuterol/Iprat 2.5/0.5MG 3 ML AMPUL.NEB INHALE ×4 (07:55→20:32)
[2025-04-06 07:56] LABS: Anion Gap 17 (12-20); Blood Urea Nitrogen 75 mg/dL (9-16); Calcium 7.3 mg/dL (8.4-10.2); Carbon Dioxide 27 mmol/L (22-29); Chloride 107 mmol/L (96-108); Creatinine Clr Calc Pharmacy 29.4; Estimated Glomerular Filt Rate 24; Glucose Random 150 mg/dL (60-115); Potassium 5.1 mmol/L (3.3-5.1); Sodium 146 mmol/L (135-145)
[2025-04-06] MEDS: Sodium Bicarbonate 650 MG TABLET PO (08:38)
[2025-04-06] MEDS: predniSONE 20 MG TABLET 40 MG PO (08:38)
[2025-04-06] MEDS: Sertraline HCL 50 MG TABLET PO (08:38)
[2025-04-06] MEDS: Insulin Lispro 100 UNIT/ML 3 ML VIAL SUBCUT ×4 (08:38→21:09)
[2025-04-06] MEDS: Acetaminophen 325 MG TABLET 650 MG PO ×2 (08:39→21:04)
[2025-04-06] MEDS: gemfibroziL 600 MG TABLET PO ×2 (08:39→21:04)
[2025-04-06] MEDS: Ferrous Sulfate 324 MG TABLET.DR PO (08:39)
[2025-04-06 09:09] LABS: B Type Natriuretic Peptide 478 pg/mL (<100)
--- NOTE | 2025-04-06 09:53 | PM.CNNEP ---
History of Present Illness Reason for Consult Consult date: 04/06/25 Chief Complaint Chief complaint: dyspnea History of Present Illness Narrative: Pt is a 79 y/o female with a medical history of COPD on 2L at home, obesity, TEZ, right diastolic heart failure, CKD4, DMII, HTN, HLD, mood disorder. She is wheelchair bound at home. 04/03 presented with dyspnea, imaging with pleural effusions and pulmonary vascular congestion Nephrology consulted for MARJORIE 02/28 creatinine was 1.48 04/03 on presentation 2.23 04/04 1.98 04/05 1.86 04/06 1.98 she has been receiving lasix, 04/05 afternoon started on lasix drip at 3mg/hr states her breathing is ok, more uncomfortable when she switches from cpap to NC, currently on 3L denies chest pain, dizziness, abdominal pain, urinary symptoms Review of Systems Constitutional: Reports no additional constitutional complaints Cardiovascular: Denies chest pain, Denies leg edema and Reports dyspnea Respiratory: Reports dyspnea Gastrointestinal: Denies abdominal pain, Denies diarrhea and Denies vomiting Genitourinary: Denies hematuria, Denies difficulty voiding and Denies flank pain Musculoskeletal: Denies back pain and Denies muscle cramps Skin/Breast: Denies rash Denies tremor(s) PMFSH Past Medical History Medical History Generalized anxiety disorder COPD (chronic obstructive pulmonary disease) CHF (congestive heart failure) Anemia Herpes zoster MARJORIE (acute kidney injury) Left bundle branch block Morbid obesity Chronic pain syndrome Anxiety Pernicious anemia CHF (congestive heart failure) Hypothyroidism Essential hypertension Diabetes mellitus Pure hypercholesterolemia Family History Family History Father CVD (cardiovascular disease) Mother No problems noted. Family/Other FH: mental illness Surgical History Surgical History H/O left knee surgery Deficient knowledge of leg surgery History of tonsillectomy and adenoidectomy History of appendectomy Social History Social History Household Members: Family Household Members Other:: son Housing: House Do you presently have visiting nurse or other home services: Yes (vna) Alcohol intake: unknown Patient Tobacco Use Status: Former Tobacco user Tobacco use type: Cigarette e-Cigarette/Vaping Use: Never Used Second Hand Smoke Exposure: No Currently Displaying Signs/Symptoms of Drug Intoxication Withdrawal: No Have you been hit, kicked, punched, or otherwise hurt by someone within the past year? If so, by whom?: No Do you feel safe in your current relationship?: No Current Relationship Is there a partner from a previous relationship who is making you feel unsafe now?: No Are you made to feel afraid or neglected: No Advance Directives: Yes Advance Directives Information Provided: Yes Advance Directives on File: Yes Advance Directives Date on File: 06/24/24 Do you have a plan to hurt others: No Plan Recently lost weight without trying: No Eating poorly because of decreased appetite: No Nutrition Risks: No Nutritional Risk Patient : No : No Poor oral hygiene: No (dentures) service: No Current occupational status: disabled Cognitive needs: Yes (Wheelchair, Lift chair) Hearing needs: No Vision needs: Yes (Glasses) Meds Allergies Allergy/AdvReac Type Severity Reaction Status Date / Time ibuprofen [From Motrin] Allergy Unknown swelling Verified 04/03/25 10:32 codeine [CODEINE] AdvReac Unknown SLEEPY Verified 04/03/25 10:32 Active Medications: Current Medications Acetaminophen (Acetaminophen 325 Mg Tablet) 650 mg PO Q6H PRN PRN Reason: Pain, Mild 1-3,fever,headache Last Admin: 04/06/25 08:39 Dose: 650 mg Albuterol Sulfate (Albuterol Sulfate 90 Mcg 8 Gm Inhaler) 2 puff INHALE Q6H PRN PRN Reason: shortness of breath or wheezing Albuterol/Ipratropium (Albuterol/Iprat 2.5/0.5mg 3 Ml Ampul.Neb) 3 ml INHALE Q4H PRN PRN Reason: Shortness of Breath/Wheezing Albuterol/Ipratropium (Albuterol/Iprat 2.5/0.5mg 3 Ml Ampul.Neb) 3 ml INHALE RQ4H WHILE AWAKE [facility] Last Admin: 04/06/25 07:55 Dose: 3 ml Amlodipine Besylate (Amlodipine Besylate 5 Mg Tablet) 5 mg PO DAILY GEO; Protocol Last Admin: 04/05/25 09:49 Dose: 5 mg Atorvastatin Calcium (Atorvastatin Calcium 40 Mg Tablet) 40 mg PO BEDTIME [facility] Last Admin: 04/05/25 22:00 Dose: 40 mg Benzonatate (Benzonatate 100 Mg Capsule) 100 mg PO TID PRN PRN Reason: Cough Calcium Carbonate (Calcium Carbonate 750 Mg Tab.Chew) 750 mg PO Q4H PRN PRN Reason: Heartburn Ceftriaxone Sodium (Ceftriaxone Sodium 1 Gm Vial) 1 gm IVPUSH Q24H [facility] Last Admin: 04/06/25 00:25 Dose: 1 gm Dextrose (Dextrose 50 % 25 Gm/50 Ml Syringe) 25 gm IVPUSH Q15M PRN; Protocol PRN Reason: per Hypoglycemia Standing Ord. Enoxaparin Sodium (Enoxaparin Sodium 30 Mg/0.3 Ml Syringe) 30 mg SUBCUT Q24H [facility] Last Admin: 04/05/25 22:02 Dose: 30 mg Ferrous Sulfate (Ferrous Sulfate 324 Mg Tablet.) 324 mg PO DAILY [facility] Last Admin: 04/06/25 08:39 Dose: 324 mg Gemfibrozil (Gemfibrozil 600 Mg Tablet) 600 mg PO BID [facility] Last Admin: 04/06/25 08:39 Dose: 600 mg Glucose (Glucose Gel 15 Gm Gel..Gram.) 15 gm PO Q15M PRN; Protocol PRN Reason: per Hypoglycemia Standing Ord. Ampicillin Sodium 2 gm/ Sodium (Chloride) 100 mls @ 200 mls/hr IV Q12H [facility] Last Infusion: 04/06/25 01:55 Dose: Infused Furosemide 200 mg/ Sodium (Chloride) 100 mls @ 1.5 mls/hr IVCONT .Q24H [facility] Last Infusion: 04/05/25 18:04 Dose: 3 mg/hr, 1.5 mls/hr Insulin Glargine (Insulin Glargine,Hum.Rec.Anlog 100 Unit/Ml 10 Ml Vial) 20 unit SUBCUT DAILY@1900 [facility] Last Admin: 04/05/25 22:00 Dose: 20 unit Insulin Human Lispro (Insulin Lispro 100 Unit/Ml 3 Ml Vial) 0 unit SUBCUT QIDACHS [facility]; Protocol Last Admin: 04/06/25 08:38 Dose: 2 unit Levothyroxine Sodium (Levothyroxine Sodium 200 Mcg Tablet) 200 mcg PO DAILY@0600 [facility] Last Admin: 04/06/25 06:26 Dose: 200 mcg Magnesium Hydroxide (Milk Of Magnesia 30 Ml Oral.Susp) 30 ml PO DAILY PRN PRN Reason: Constipation Melatonin (Melatonin 3 Mg Tablet) 6 mg PO BEDTIME PRN PRN Reason: Insomnia Last Admin: 04/06/25 00:25 Dose: 6 mg Nystatin (Nystatin Powder 15 Gm Bottle) 1 appl TOPICAL BID [facility]; Protocol Last Admin: 04/06/25 08:41 Dose: 1 appl Ondansetron HCl (Ondansetron Hcl 4 Mg/2 Ml Vial) 4 mg IVPUSH Q8H PRN PRN Reason: Nausea and Vomiting Prednisone (Prednisone 20 Mg Tablet) 40 mg PO DAILY [facility] Last Admin: 04/06/25 08:38 Dose: 40 mg Sertraline HCl (Sertraline Hcl 50 Mg Tablet) 50 mg PO DAILY [facility] Last Admin: 04/06/25 08:38 Dose: 50 mg Sodium Bicarbonate (Sodium Bicarbonate 650 Mg Tablet) 650 mg PO DAILY [facility] Last Admin: 04/06/25 08:38 Dose: 650 mg Sodium Chloride (0.9 % Sodium Chloride Flush 3 Ml Syringe) [facility] Last Admin: 04/06/25 08:39 Dose: 3 ml Home Medications ?Medication ?Instructions ?Recorded ?Confirmed ?Last Taken ?Type insulin glargine 100 unit/mL (3 25 unit subcut DAILY@1900 04/04/25 04/04/25 04/02/25 History mL) subcutaneous pen (Basaglar KwikPen U-100 Insulin) Physical Exam Vital Signs: Last Vital Signs Temp 97.0 F 04/06/25 07:29 Pulse 67 04/06/25 07:58 Resp 22 H 04/06/25 08:01 BP 127/58 L 04/06/25 07:29 Pulse Ox 97 04/06/25 07:29 O2 Del Method BiPAP 04/06/25 07:29 O2 Flow Rate 28 04/06/25 07:29 FiO2 30 04/03/25 15:43 Oxygen Flow Rate 3 04/03/25 10:33 BMI result Body Mass Index 43.2 Const General: no acute distress, alert and awake Resp Effort & Inspection: normal respiratory effort and able to speak in complete sentences Auscultation: crackles and diminished lung sounds Cardio Rate: regular rate Rhythm: regular rhythm Heart sounds: S1 normal heart sound present and S2 normal heart sound present GI Palpation (GI): Soft to palpation and nontender Extrem General: No edema Results Lab Results 04/06/25 07:22 04/06/25 07:22 Lab results: Chemistry 04/03/25 04/04/25 04/05/25 11:06 05:16 05:27 Sodium 146 H 147 H 146 H Potassium 4.9 D 4.4 4.8 Carbon Dioxide 28 25 28 BUN 79 H 74 H 74 H Creatinine 2.23 H 1.98 H 1.86 H Calcium 7.6 L D 7.5 L 7.3 L 04/06/25 07:22 Sodium 146 H Potassium 5.1 Carbon Dioxide 27 BUN 75 H Creatinine 1.98 H Calcium 7.3 L Hematology 04/03/25 04/04/25 04/05/25 11:06 05:16 05:27 WBC 6.7 6.3 5.9 Hgb 7.7 L 7.1 L 8.3 L Plt Count 330 D 331 279 04/06/25 07:22 WBC Hgb 8.0 L Plt Count Urinalysis 04/03/25 14:30 Urine Color Yellow Urine Appearance Cloudy Urine pH 5.5 Ur Specific [place] 1.010 Urine Protein 100 (2+) H Urine Glucose (UA) 250 H Urine Ketones Negative Urine Blood Moderate (2+) H Urine Nitrite Negative Ur Leukocyte Esterase Large (3+) H Urine RBC 3-5 H Urine WBC 21-50 Ur Squamous Epith Cells 3-5 Hyaline Casts 0-2 Assessment and Plan (1) Acute kidney injury superimposed on chronic kidney disease: Status: Resolved Plan MARJORIE on CKD likely secondary to CHF exacerbation 2000mL urine output in last 24 hours, recommend continuing with current lasix at 3mg/hr will check urine prot/creatinine and urine sodium blood pressures adequately controlled at this time recommend daily electrolyte and renal function studies recommend regular I&O monitoring, blood pressure checks recommend avoiding nephrotoxins continue supportive care Discussed with Dr Wilfredo Minor Date of Service Date of Service: 04/06/25
[2025-04-06 11:06] LABS: Glucose, Whole Blood 153 mg/dL (60-115)
[2025-04-06 12:04] LABS: Creatinine Urine 49.89 mg/dL; Protein/Creatinine Ratio, Ur 1.62 (<0.2); Total Protein Urine Random 81 mg/dL (<12)
[2025-04-06 15:47] LABS: Glucose, Whole Blood 218 mg/dL (60-115)
[2025-04-06] MEDS: Furosemide 200 MG in 0.9 % Sodium Chloride 80 ML IVCONT (16:10)
--- NOTE | 2025-04-06 17:16 | HO.PM.IMPN ---
Subjective Subjective Date of Service: 04/06/25 Interval History: chf Review of Systems sob seems somewhat improving denies any chest pain Review of Systems: Yes all other systems are reviewed and are negative Physical Exam Vital Signs: Vital Signs: Last Vital Signs Temp 97.4 F 04/06/25 16:00 Pulse 77 04/06/25 16:00 Resp 20 04/06/25 16:00 BP 124/71 04/06/25 16:00 Pulse Ox 97 04/06/25 16:00 O2 Del Method Nasal Cannula 04/06/25 16:00 O2 Flow Rate 2 04/06/25 16:00 FiO2 30 04/03/25 15:43 Oxygen Flow Rate 3 04/03/25 10:33 BMI result Body Mass Index 43.2 Appearance: Alert.? Oriented X3. cvs: rrr, [id number] . res:air entry diminshed ,minimum wheezing ,few scattered rales at bases abd: no rebound or guarding ,nt, bs present. ext pulses present , no cyanosis neuro: axo3 , nonfocal. Objective Data Active Medications Acetaminophen (Acetaminophen 325 Mg Tablet) 650 mg PO Q6H PRN PRN Reason: Pain, Mild 1-3,fever,headache Last Admin: 04/06/25 08:39 Dose: 650 mg Documented By: KAZ Albuterol Sulfate (Albuterol Sulfate 90 Mcg 8 Gm Inhaler) 2 puff INHALE Q6H PRN PRN Reason: shortness of breath or wheezing Albuterol/Ipratropium (Albuterol/Iprat 2.5/0.5mg 3 Ml Ampul.Neb) 3 ml INHALE Q4H PRN PRN Reason: Shortness of Breath/Wheezing Albuterol/Ipratropium (Albuterol/Iprat 2.5/0.5mg 3 Ml Ampul.Neb) 3 ml INHALE RQ4H WHILE AWAKE [facility] Last Admin: 04/06/25 15:33 Dose: 3 ml Documented By: ALBARO Amlodipine Besylate (Amlodipine Besylate 5 Mg Tablet) 5 mg PO DAILY [facility]; Protocol Last Admin: 04/05/25 09:49 Dose: 5 mg Documented By: VIC Atorvastatin Calcium (Atorvastatin Calcium 40 Mg Tablet) 40 mg PO BEDTIME [facility] Last Admin: 04/05/25 22:00 Dose: 40 mg Documented By: NICOLA Benzonatate (Benzonatate 100 Mg Capsule) 100 mg PO TID PRN PRN Reason: Cough Calcium Carbonate (Calcium Carbonate 750 Mg Tab.Chew) 750 mg PO Q4H PRN PRN Reason: Heartburn Ceftriaxone Sodium (Ceftriaxone Sodium 1 Gm Vial) 1 gm IVPUSH Q24H [facility] Last Admin: 04/06/25 00:25 Dose: 1 gm Documented By: NICOLA Dextrose (Dextrose 50 % 25 Gm/50 Ml Syringe) 25 gm IVPUSH Q15M PRN; Protocol PRN Reason: per Hypoglycemia Standing Ord. Enoxaparin Sodium (Enoxaparin Sodium 30 Mg/0.3 Ml Syringe) 30 mg SUBCUT Q24H [facility] Last Admin: 04/05/25 22:02 Dose: 30 mg Documented By: NICOLA Ferrous Sulfate (Ferrous Sulfate 324 Mg Tablet.Dr) 324 mg PO DAILY [facility] Last Admin: 04/06/25 08:39 Dose: 324 mg Documented By: KAZ Gemfibrozil (Gemfibrozil 600 Mg Tablet) 600 mg PO BID [facility] Last Admin: 04/06/25 08:39 Dose: 600 mg Documented By: KAZ Glucose (Glucose Gel 15 Gm Gel..Gram.) 15 gm PO Q15M PRN; Protocol PRN Reason: per Hypoglycemia Standing Ord. Ampicillin Sodium 2 gm/ Sodium (Chloride) 100 mls @ 200 mls/hr IV Q12H [facility] Last Infusion: 04/06/25 11:45 Dose: Infused Documented By: KAZ Furosemide 200 mg/ Sodium (Chloride) 100 mls @ 1.5 mls/hr IVCONT .Q24H [facility] Last Admin: 04/06/25 16:10 Dose: 3 mg/hr, 1.5 mls/hr Documented By: KAZ Insulin Glargine (Insulin Glargine,Hum.Rec.Anlog 100 Unit/Ml 10 Ml Vial) 20 unit SUBCUT DAILY@1900 [facility] Last Admin: 04/05/25 22:00 Dose: 20 unit Documented By: NICOLA Insulin Human Lispro (Insulin Lispro 100 Unit/Ml 3 Ml Vial) 0 unit SUBCUT QIDACHS [facility]; Protocol Last Admin: 04/06/25 16:10 Dose: 4 unit Documented By: KAZ Levothyroxine Sodium (Levothyroxine Sodium 200 Mcg Tablet) 200 mcg PO DAILY@0600 [facility] Last Admin: 04/06/25 06:26 Dose: 200 mcg Documented By: NICOLA Magnesium Hydroxide (Milk Of Magnesia 30 Ml Oral.Susp) 30 ml PO DAILY PRN PRN Reason: Constipation Melatonin (Melatonin 3 Mg Tablet) 6 mg PO BEDTIME PRN PRN Reason: Insomnia Last Admin: 04/06/25 00:25 Dose: 6 mg Documented By: NICOLA Nystatin (Nystatin Powder 15 Gm Bottle) 1 appl TOPICAL BID [facility]; Protocol Last Admin: 04/06/25 08:41 Dose: 1 appl Documented By: KAZ Ondansetron HCl (Ondansetron Hcl 4 Mg/2 Ml Vial) 4 mg IVPUSH Q8H PRN PRN Reason: Nausea and Vomiting Prednisone (Prednisone 20 Mg Tablet) 40 mg PO DAILY [facility] Last Admin: 04/06/25 08:38 Dose: 40 mg Documented By: KAZ Sertraline HCl (Sertraline Hcl 50 Mg Tablet) 50 mg PO DAILY [facility] Last Admin: 04/06/25 08:38 Dose: 50 mg Documented By: KAZ Sodium Bicarbonate (Sodium Bicarbonate 650 Mg Tablet) 650 mg PO DAILY [facility] Last Admin: 04/06/25 08:38 Dose: 650 mg Documented By: KAZ Sodium Chloride (0.9 % Sodium Chloride Flush 3 Ml Syringe) 3 ml IVFLUSH QSHIFT [facility] Last Admin: 04/06/25 16:10 Dose: 3 ml Documented By: KAZ Labs 04/06/25 07:22 04/06/25 07:22 Labs: Laboratory Results - last 24 hr 04/05/25 04/06/25 04/06/25 21:04 07:22 07:24 Anion Gap 17 Estim Creat Clear Calc 29.4 Estimated GFR 24 POC Glucose 208 H 151 H Random Glucose 150 H Calcium 7.3 L B-Natriuretic Peptide 478 H U Random Total Protein Ur Random Sodium Urine Creatinine Protein/Creatinin Ratio 04/06/25 04/06/25 04/06/25 10:55 11:20 15:35 Anion Gap Estim Creat Clear Calc Estimated GFR POC Glucose 153 H 218 H Random Glucose Calcium B-Natriuretic Peptide U Random Total Protein 81 H Ur Random Sodium 47.0 Urine Creatinine 49.89 Protein/Creatinin Ratio 1.62 H Assessment and Plan (1) Acute on chronic respiratory failure: Status: Acute (2) CHF exacerbation: Status: Acute Assessment and Plan: 79-year-old female with pertinent history of chronic hypoxemic respiratory failure due to COPD on 2 L supplemental oxygen, morbid obesity with TEZ noncompliant with CPAP, 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 Acute on chronic hypercapnic hypoxemic respiratory failure due to acute on chronic diastolic congestive heart failure and acute exacerbation of COPD: patient is 5 liter negative i/o sob seems similar ,also feels very anxious plan: continue IV Lasix. Strict I's and O's-neg 6 liters . Low-salt diet. Also initiated systemic steroids, scheduled and p.r.n. DuoNebs.cpap pulm eval appreciated-started on Lasix drip, monitor I&O, renal function electrolytes. Avoid benzodiazepines. MARJORIE on CKD stage 4: Cardiorenal type 1 in the setting of above. Improving with IV diuresis-rec to continue for today UTI: Previous cultures with Enterococcus faecalis and Providencia. Initiating ampicillin and ceftriaxone. Follow urine culture Normocytic anemia: Obtaining B12, folate, iron panel. Noted hemoglobin 7.1. Will order 1 unit PRBC to prevent high output failure. Insulin-dependent diabetes mellitus: Initiating Accu-Cheks with sliding scale insulin. Reduce hold basal insulin once med rec verified Hypothyroidism: On Synthroid Obesity/TEZ: CPAP at bedtime. Counseled regarding weight loss Venous stasis to lower extremities: Consulting Wound Care Mood disorder: Continue home mood stabilizers DVT prophylaxis: Lovenox . Reason for continued hospitalization: IV diuresis, ongoing dyspnea.moniter renal function/electrolytes. Quality Stroke Does the patient have a stroke diagnosis?: No VTE Prior VTE?: No VTE Risk Level:: Medical - moderate - high VTE Device Contraindication: Treatment Not Indicated VTE Drug Contraindication: N/A - Med Ordered
[2025-04-06 20:16] LABS: Glucose, Whole Blood 319 mg/dL (60-115)
[2025-04-06] MEDS: Atorvastatin Calcium 40 MG TABLET PO (21:04)
[2025-04-06] MEDS: hydrOXYzine HCL 50 MG TABLET PO (21:05)
[2025-04-06] MEDS: Insulin Glargine,Hum.rec.anlog 100 UNIT/ML 10 ML VIAL 20 UNIT SUBCUT (21:08)
[2025-04-06] MEDS: Enoxaparin Sodium 30 MG/0.3 ML SYRINGE SUBCUT (21:10)
[2025-04-07] VITALS (11 sets, daily range): BP systolic 128–146; BP diastolic 58–65; PULSE 58–96; RESP 16–25; TEMP 36.2–36.6; O2SAT 94–99
[2025-04-07] MEDS: Acetaminophen 325 MG TABLET 650 MG PO ×3 (05:32→21:14)
[2025-04-07] MEDS: Levothyroxine Sodium 200 MCG TABLET PO (05:32)
[2025-04-07 06:58] LABS: Anion Gap 16 (12-20); Blood Urea Nitrogen 80 mg/dL (9-16); Carbon Dioxide 30 mmol/L (22-29); Chloride 104 mmol/L (96-108); Creatinine Clr Calc Pharmacy 27.7; Estimated Glomerular Filt Rate 23; Glucose Random 183 mg/dL (60-115); Potassium 4.6 mmol/L (3.3-5.1); Sodium 145 mmol/L (135-145)
[2025-04-07 07:25] LABS: Glucose, Whole Blood 139 mg/dL (60-115)
[2025-04-07] MEDS: Albuterol/Iprat 2.5/0.5MG 3 ML AMPUL.NEB INHALE ×4 (07:35→20:35)
[2025-04-07] MEDS: predniSONE 20 MG TABLET 40 MG PO (08:17)
[2025-04-07] MEDS: Sertraline HCL 50 MG TABLET PO (08:17)
[2025-04-07] MEDS: Sodium Bicarbonate 650 MG TABLET PO (08:17)
[2025-04-07] MEDS: gemfibroziL 600 MG TABLET PO ×2 (08:17→21:14)
[2025-04-07] MEDS: Ferrous Sulfate 324 MG TABLET.DR PO (08:17)
[2025-04-07] MEDS: Nystatin Powder 15 GM BOTTLE 1 APPL TOPICAL ×2 (08:17→21:15)
--- NOTE | 2025-04-07 09:09 | P.PNNP_ITS ---
Subjective Subjective Date of Service: 04/07/25 Interval history: Pt is a 79 y/o female with a medical history of COPD on 2L at home, obesity, TEZ, right diastolic heart failure, CKD4, DMII, HTN, HLD, mood disorder. She is wheelchair bound at home. 04/03 presented with dyspnea, imaging with pleural effusions and pulmonary vascular congestion Nephrology consulted for MARJORIE 02/28 creatinine was 1.48 04/03 on presentation 2.23 04/04 1.98 04/05 1.86 04/06 1.98 she has been receiving lasix, 04/05 afternoon started on lasix drip at 3mg/hr states her breathing is ok, more uncomfortable when she switches from cpap to NC, currently on 3L denies chest pain, dizziness, abdominal pain, urinary symptoms Physical Exam 2 Vital Signs: Vital Signs: Last Vital Signs Temp 97.1 F 04/07/25 08:00 Pulse 66 04/07/25 08:00 Resp 20 04/07/25 08:00 BP 141/61 H 04/07/25 08:00 Pulse Ox 99 04/07/25 08:00 O2 Del Method Nasal Cannula 04/07/25 08:00 O2 Flow Rate 2 04/07/25 08:00 FiO2 30 04/03/25 15:43 Oxygen Flow Rate 3 04/03/25 10:33 BMI result Body Mass Index 43.2 Const: General: no acute distress, alert and awake Resp: Effort & Inspection: normal respiratory effort and able to speak in complete sentences Auscultation: diminished lung sounds Cardio: Rate: regular rate Rhythm: regular rhythm Heart sounds: S1 normal heart sound present and S2 normal heart sound present GI: Palpation (GI): Soft to palpation and nontender Extrem: General: No edema Objective Data Labs 04/06/25 07:22 04/07/25 06:21 Labs: Laboratory Results - last 24 hr 04/06/25 04/06/25 04/06/25 07:22 10:55 11:20 Hold Purple Top Sodium Potassium Chloride Carbon Dioxide Anion Gap BUN Creatinine Estim Creat Clear Calc Estimated GFR POC Glucose 153 H Random Glucose Calcium B-Natriuretic Peptide 478 H U Random Total Protein 81 H Ur Random Sodium 47.0 Urine Creatinine 49.89 Protein/Creatinin Ratio 1.62 H 04/06/25 04/06/25 04/07/25 15:35 20:11 06:21 Hold Purple Top SEE NOTE Sodium 145 Potassium 4.6 Chloride 104 Carbon Dioxide 30 H Anion Gap 16 BUN 80 H Creatinine 2.10 H Estim Creat Clear Calc 27.7 Estimated GFR 23 POC Glucose 218 H 319 H Random Glucose 183 H Calcium 7.0 L B-Natriuretic Peptide U Random Total Protein Ur Random Sodium Urine Creatinine Protein/Creatinin Ratio 04/07/25 07:16 Hold Purple Top Sodium Potassium Chloride Carbon Dioxide Anion Gap BUN Creatinine Estim Creat Clear Calc Estimated GFR POC Glucose 139 H Random Glucose Calcium B-Natriuretic Peptide U Random Total Protein Ur Random Sodium Urine Creatinine Protein/Creatinin Ratio Microbiology Microbiology Results: Microbiology 04/03/25 Unknown Urine Catheterized - Moyer Catheter Urine Culture - Final Enterococcus faecalis Procedures Date of Service Date of Service: 04/07/25 Assessment & Plan Assessment and plan (1) Acute kidney injury superimposed on chronic kidney disease: Status: Resolved Plan MARJORIE on CKD likely secondary to CHF exacerbation creatinine has stabilized, likely at baseline recommend switch from IV to oral lasix, if patient continues to respond well to oral lasix we may see her for further monitoring as outpatient will check urine and serum electrophoresis and free light chains given anemia and significant proteinuria blood pressures adequately controlled at this time recommend daily electrolyte and renal function studies recommend regular I&O monitoring, blood pressure checks recommend avoiding nephrotoxins continue supportive care Discussed with Dr Baires Time Spent With Patient Time: Total time managing care of this patient today ____ minutes. Progress Note: Quality Stroke Does the patient have a stroke diagnosis?: No
[2025-04-07 11:12] LABS: Glucose, Whole Blood 225 mg/dL (60-115)
--- NOTE | 2025-04-07 11:48 | MHC.CM.PN ---
Per rounds, pt. is improving slowly, not ready to DC, DCP: home, resume VNA services from [facility].
[2025-04-07] MEDS: Insulin Lispro 100 UNIT/ML 3 ML VIAL SUBCUT ×3 (11:55→21:14)
[2025-04-07] MEDS: Ampicillin Sodium 2 GM in 0.9 % Sodium Chloride 100 ML IV ×2 (11:55→21:14)
--- NOTE | 2025-04-07 15:42 | P.PNIM_ITS ---
Subjective Subjective Date of Service: 04/07/25 Interval History: chf Review of Systems sob slowly improving no chest pain Review of Systems: Yes all other systems are reviewed and are negative Physical Exam 2 Vital Signs: Vital Signs: Last Vital Signs Temp 97.1 F 04/07/25 08:00 Pulse 66 04/07/25 11:15 Resp 20 04/07/25 11:15 BP 141/61 H 04/07/25 08:00 Pulse Ox 99 04/07/25 08:00 O2 Del Method Nasal Cannula 04/07/25 08:00 O2 Flow Rate 2 04/07/25 08:00 FiO2 30 04/03/25 15:43 Oxygen Flow Rate 3 04/03/25 10:33 BMI result Body Mass Index 43.2 Appearance: Alert.? Oriented X3. cvs: rrr, [id number] . res:air entry diminshed ,minimum wheezing ,few scattered rales at bases abd: no rebound or guarding ,nt, bs present. ext pulses present , no cyanosis neuro: axo3 , nonfocal. Objective Data Active Medications Acetaminophen (Acetaminophen 325 Mg Tablet) 650 mg PO Q6H PRN PRN Reason: Pain, Mild 1-3,fever,headache Last Admin: 04/07/25 12:02 Dose: 650 mg Documented By: KAZ Albuterol Sulfate (Albuterol Sulfate 90 Mcg 8 Gm Inhaler) 2 puff INHALE Q6H PRN PRN Reason: shortness of breath or wheezing Albuterol/Ipratropium (Albuterol/Iprat 2.5/0.5mg 3 Ml Ampul.Neb) 3 ml INHALE Q4H PRN PRN Reason: Shortness of Breath/Wheezing Albuterol/Ipratropium (Albuterol/Iprat 2.5/0.5mg 3 Ml Ampul.Neb) 3 ml INHALE RQ4H WHILE AWAKE [facility] Last Admin: 04/07/25 11:15 Dose: 3 ml Documented By: BENITO Amlodipine Besylate (Amlodipine Besylate 5 Mg Tablet) 5 mg PO DAILY [facility]; Protocol Last Admin: 04/05/25 09:49 Dose: 5 mg Documented By: VIC Atorvastatin Calcium (Atorvastatin Calcium 40 Mg Tablet) 40 mg PO BEDTIME [facility] Last Admin: 04/06/25 21:04 Dose: 40 mg Documented By: NICOLA Benzonatate (Benzonatate 100 Mg Capsule) 100 mg PO TID PRN PRN Reason: Cough Calcium Carbonate (Calcium Carbonate 750 Mg Tab.Chew) 750 mg PO Q4H PRN PRN Reason: Heartburn Ceftriaxone Sodium (Ceftriaxone Sodium 1 Gm Vial) 1 gm IVPUSH Q24H [facility] Last Admin: 04/06/25 21:13 Dose: 1 gm Documented By: NICOLA Dextrose (Dextrose 50 % 25 Gm/50 Ml Syringe) 25 gm IVPUSH Q15M PRN; Protocol PRN Reason: per Hypoglycemia Standing Ord. Enoxaparin Sodium (Enoxaparin Sodium 30 Mg/0.3 Ml Syringe) 30 mg SUBCUT Q24H [facility] Last Admin: 04/06/25 21:10 Dose: 30 mg Documented By: NICOLA Ferrous Sulfate (Ferrous Sulfate 324 Mg Tablet.Dr) 324 mg PO DAILY [facility] Last Admin: 04/07/25 08:17 Dose: 324 mg Documented By: KAZ Furosemide (Furosemide 40 Mg Tablet) 40 mg PO BID@0900,1800 [facility]; Protocol Gemfibrozil (Gemfibrozil 600 Mg Tablet) 600 mg PO BID [facility] Last Admin: 04/07/25 08:17 Dose: 600 mg Documented By: KAZ Glucose (Glucose Gel 15 Gm Gel..Gram.) 15 gm PO Q15M PRN; Protocol PRN Reason: per Hypoglycemia Standing Ord. Ampicillin Sodium 2 gm/ Sodium (Chloride) 100 mls @ 200 mls/hr IV Q12H [facility] Last Infusion: 04/07/25 13:10 Dose: Infused Documented By: KAZ Insulin Glargine (Insulin Glargine,Hum.Rec.Anlog 100 Unit/Ml 10 Ml Vial) 20 unit SUBCUT DAILY@1900 [facility] Last Admin: 04/06/25 21:08 Dose: 20 unit Documented By: NICOLA Insulin Human Lispro (Insulin Lispro 100 Unit/Ml 3 Ml Vial) 0 unit SUBCUT QIDACHS [facility]; Protocol Last Admin: 04/07/25 11:55 Dose: 4 unit Documented By: KAZ Levothyroxine Sodium (Levothyroxine Sodium 200 Mcg Tablet) 200 mcg PO DAILY@0600 [facility] Last Admin: 04/07/25 05:32 Dose: 200 mcg Documented By: NICOLA Magnesium Hydroxide (Milk Of Magnesia 30 Ml Oral.Susp) 30 ml PO DAILY PRN PRN Reason: Constipation Melatonin (Melatonin 3 Mg Tablet) 6 mg PO BEDTIME PRN PRN Reason: Insomnia Last Admin: 04/06/25 21:05 Dose: 6 mg Documented By: NICOLA Nystatin (Nystatin Powder 15 Gm Bottle) 1 appl TOPICAL BID [facility]; Protocol Last Admin: 04/07/25 08:17 Dose: 1 appl Documented By: KAZ Ondansetron HCl (Ondansetron Hcl 4 Mg/2 Ml Vial) 4 mg IVPUSH Q8H PRN PRN Reason: Nausea and Vomiting Prednisone (Prednisone 20 Mg Tablet) 40 mg PO DAILY [facility] Last Admin: 04/07/25 08:17 Dose: 40 mg Documented By: KAZ Sertraline HCl (Sertraline Hcl 50 Mg Tablet) 50 mg PO DAILY [facility] Last Admin: 04/07/25 08:17 Dose: 50 mg Documented By: KAZ Sodium Bicarbonate (Sodium Bicarbonate 650 Mg Tablet) 650 mg PO DAILY [facility] Last Admin: 04/07/25 08:17 Dose: 650 mg Documented By: KAZ Sodium Chloride (0.9 % Sodium Chloride Flush 3 Ml Syringe) 3 ml IVFLUSH QSHIFT [facility] Last Admin: 04/07/25 07:38 Dose: Not Given Documented By: KAZ Non-Admin Reason: IV Running Labs 04/06/25 07:22 04/07/25 06:21 Labs: Laboratory Results - last 24 hr 04/06/25 04/06/25 04/07/25 15:35 20:11 06:21 Hold Purple Top SEE NOTE Anion Gap 16 Estim Creat Clear Calc 27.7 Estimated GFR 23 POC Glucose 218 H 319 H Random Glucose 183 H Calcium 7.0 L 04/07/25 04/07/25 07:16 11:02 Hold Purple Top Anion Gap Estim Creat Clear Calc Estimated GFR POC Glucose 139 H 225 H Random Glucose Calcium Assessment and Plan (1) Acute on chronic respiratory failure: Status: Acute (2) CHF exacerbation: Status: Acute Assessment and Plan: 79-year-old female with pertinent history of chronic hypoxemic respiratory failure due to COPD on 2 L supplemental oxygen, morbid obesity with TEZ noncompliant with CPAP, 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 Acute on chronic hypercapnic hypoxemic respiratory failure due to acute on chronic diastolic congestive heart failure and acute exacerbation of COPD: patient is 5 liter negative i/o sob seems similar ,also feels very anxious plan: continue IV Lasix. Strict I's and O's-neg 8.2 liters . Low-salt diet. Also initiated systemic steroids, scheduled and p.r.n. DuoNebs.cpap pulm eval /nephro eval: switched to po lasix, monitor I&O, renal function electrolytes. Avoid benzodiazepines. MARJORIE on CKD stage 4: Cardiorenal type 1 in the setting of above. Improving with IV diuresis-rec to continue for today UTI: Previous cultures with Enterococcus faecalis and Providencia. Initiating ampicillin and ceftriaxone. Follow urine culture Normocytic anemia: Obtaining B12, folate, iron panel. Noted hemoglobin 7.1. Will order 1 unit PRBC to prevent high output failure. Insulin-dependent diabetes mellitus: Initiating Accu-Cheks with sliding scale insulin. Reduce hold basal insulin once med rec verified Hypothyroidism: On Synthroid Obesity/TEZ: CPAP at bedtime. Counseled regarding weight loss Venous stasis to lower extremities: Consulting Wound Care Mood disorder: Continue home mood stabilizers DVT prophylaxis: Lovenox . Reason for continued hospitalization: IV diuresis, ongoing dyspnea.moniter renal function/electrolytes. Quality Stroke Does the patient have a stroke diagnosis?: No VTE Prior VTE?: No VTE Risk Level:: Medical - moderate - high VTE Device Contraindication: Treatment Not Indicated VTE Drug Contraindication: N/A - Med Ordered
[2025-04-07 15:52] LABS: Glucose, Whole Blood 267 mg/dL (60-115)
--- NOTE | 2025-04-07 16:56 | P.CNID_ITS ---
History of Present Illness Data of Consult Service Date: 04/06/25 Requesting physician: Beltran Barfield Primary Care Provider: Neida Soto MD HPI Reason for consult: possible UTI She presents with weakness She has cath enteococcus and providencia seen urine Review of Systems 2 Review of Systems: Yes all other systems are reviewed and are negative [facility] Past Medical History Medical History Generalized anxiety disorder COPD (chronic obstructive pulmonary disease) CHF (congestive heart failure) Anemia Herpes zoster MARJORIE (acute kidney injury) Left bundle branch block Morbid obesity Chronic pain syndrome Anxiety Pernicious anemia CHF (congestive heart failure) Hypothyroidism Essential hypertension Diabetes mellitus Pure hypercholesterolemia Family History Family History Father CVD (cardiovascular disease) Mother No problems noted. Family/Other FH: mental illness Surgical History Surgical History H/O left knee surgery Deficient knowledge of leg surgery History of tonsillectomy and adenoidectomy History of appendectomy Social History Social History Household Members: Family Household Members Other:: son Housing: House Do you presently have visiting nurse or other home services: Yes (vna) Alcohol intake: unknown Patient Tobacco Use Status: Former Tobacco user Tobacco use type: Cigarette e-Cigarette/Vaping Use: Never Used Second Hand Smoke Exposure: No Currently Displaying Signs/Symptoms of Drug Intoxication Withdrawal: No Have you been hit, kicked, punched, or otherwise hurt by someone within the past year? If so, by whom?: No Do you feel safe in your current relationship?: No Current Relationship Is there a partner from a previous relationship who is making you feel unsafe now?: No Are you made to feel afraid or neglected: No Advance Directives: Yes Advance Directives Information Provided: Yes Advance Directives on File: Yes Advance Directives Date on File: 06/24/24 Do you have a plan to hurt others: No Plan Recently lost weight without trying: No Eating poorly because of decreased appetite: No Nutrition Risks: No Nutritional Risk Patient : No : No Poor oral hygiene: No (dentures) service: No Current occupational status: disabled Cognitive needs: Yes (Wheelchair, Lift chair) Hearing needs: No Vision needs: Yes (Glasses) Meds Allergies Allergy/AdvReac Type Severity Reaction Status Date / Time ibuprofen [From Motrin] Allergy Unknown swelling Verified 04/03/25 10:32 codeine [CODEINE] AdvReac Unknown SLEEPY Verified 04/03/25 10:32 Active Medications: Current Medications Acetaminophen (Acetaminophen 325 Mg Tablet) 650 mg PO Q6H PRN PRN Reason: Pain, Mild 1-3,fever,headache Last Admin: 04/07/25 12:02 Dose: 650 mg Albuterol Sulfate (Albuterol Sulfate 90 Mcg 8 Gm Inhaler) 2 puff INHALE Q6H PRN PRN Reason: shortness of breath or wheezing Albuterol/Ipratropium (Albuterol/Iprat 2.5/0.5mg 3 Ml Ampul.Neb) 3 ml INHALE Q4H PRN PRN Reason: Shortness of Breath/Wheezing Albuterol/Ipratropium (Albuterol/Iprat 2.5/0.5mg 3 Ml Ampul.Neb) 3 ml INHALE RQ4H WHILE AWAKE [facility] Last Admin: 04/07/25 15:56 Dose: 3 ml Amlodipine Besylate (Amlodipine Besylate 5 Mg Tablet) 5 mg PO DAILY [facility]; Protocol Last Admin: 04/05/25 09:49 Dose: 5 mg Atorvastatin Calcium (Atorvastatin Calcium 40 Mg Tablet) 40 mg PO BEDTIME [facility] Last Admin: 04/06/25 21:04 Dose: 40 mg Benzonatate (Benzonatate 100 Mg Capsule) 100 mg PO TID PRN PRN Reason: Cough Calcium Carbonate (Calcium Carbonate 750 Mg Tab.Chew) 750 mg PO Q4H PRN PRN Reason: Heartburn Ceftriaxone Sodium (Ceftriaxone Sodium 1 Gm Vial) 1 gm IVPUSH Q24H [facility] Last Admin: 04/06/25 21:13 Dose: 1 gm Dextrose (Dextrose 50 % 25 Gm/50 Ml Syringe) 25 gm IVPUSH Q15M PRN; Protocol PRN Reason: per Hypoglycemia Standing Ord. Enoxaparin Sodium (Enoxaparin Sodium 30 Mg/0.3 Ml Syringe) 30 mg SUBCUT Q24H [facility] Last Admin: 04/06/25 21:10 Dose: 30 mg Ferrous Sulfate (Ferrous Sulfate 324 Mg Tablet.) 324 mg PO DAILY [facility] Last Admin: 04/07/25 08:17 Dose: 324 mg Furosemide (Furosemide 40 Mg Tablet) 40 mg PO BID@0900,1800 [facility]; Protocol Gemfibrozil (Gemfibrozil 600 Mg Tablet) 600 mg PO BID [facility] Last Admin: 04/07/25 08:17 Dose: 600 mg Glucose (Glucose Gel 15 Gm Gel..Gram.) 15 gm PO Q15M PRN; Protocol PRN Reason: per Hypoglycemia Standing Ord. Ampicillin Sodium 2 gm/ Sodium (Chloride) 100 mls @ 200 mls/hr IV Q12H [facility] Last Infusion: 04/07/25 13:10 Dose: Infused Insulin Glargine (Insulin Glargine,Hum.Rec.Anlog 100 Unit/Ml 10 Ml Vial) 20 unit SUBCUT DAILY@1900 [facility] Last Admin: 04/06/25 21:08 Dose: 20 unit Insulin Human Lispro (Insulin Lispro 100 Unit/Ml 3 Ml Vial) 0 unit SUBCUT QIDACHS [facility]; Protocol Last Admin: 04/07/25 11:55 Dose: 4 unit Levothyroxine Sodium (Levothyroxine Sodium 200 Mcg Tablet) 200 mcg PO DAILY@0600 [facility] Last Admin: 04/07/25 05:32 Dose: 200 mcg Magnesium Hydroxide (Milk Of Magnesia 30 Ml Oral.Susp) 30 ml PO DAILY PRN PRN Reason: Constipation Melatonin (Melatonin 3 Mg Tablet) 6 mg PO BEDTIME PRN PRN Reason: Insomnia Last Admin: 04/06/25 21:05 Dose: 6 mg Nystatin (Nystatin Powder 15 Gm Bottle) 1 appl TOPICAL BID [facility]; Protocol Last Admin: 04/07/25 08:17 Dose: 1 appl Ondansetron HCl (Ondansetron Hcl 4 Mg/2 Ml Vial) 4 mg IVPUSH Q8H PRN PRN Reason: Nausea and Vomiting Prednisone (Prednisone 20 Mg Tablet) 40 mg PO DAILY [facility] Last Admin: 04/07/25 08:17 Dose: 40 mg Sertraline HCl (Sertraline Hcl 50 Mg Tablet) 50 mg PO DAILY [facility] Last Admin: 04/07/25 08:17 Dose: 50 mg Sodium Bicarbonate (Sodium Bicarbonate 650 Mg Tablet) 650 mg PO DAILY [facility] Last Admin: 04/07/25 08:17 Dose: 650 mg Sodium Chloride (0.9 % Sodium Chloride Flush 3 Ml Syringe) 3 ml IVFLUSH QSHIFT [facility] Last Admin: 04/07/25 07:38 Dose: Not Given Home Medications ?Medication ?Instructions ?Recorded ?Confirmed ?Last Taken ?Type insulin glargine 100 unit/mL (3 25 unit subcut DAILY@1900 04/04/25 04/04/25 04/02/25 History mL) subcutaneous pen (Basaglar KwikPen U-100 Insulin) Physical Exam 2 Vital Signs: Vital Signs: Last Vital Signs Temp 97.4 F 04/07/25 15:57 Pulse 71 04/07/25 15:57 Resp 20 04/07/25 15:57 BP 139/63 04/07/25 15:57 Pulse Ox 97 04/07/25 15:57 O2 Del Method Nasal Cannula 04/07/25 15:57 O2 Flow Rate 2 04/07/25 15:57 FiO2 30 04/03/25 15:43 Oxygen Flow Rate 3 04/03/25 10:33 BMI result Body Mass Index 43.2 Const: General: cooperative HEENT: Head: Yes normal to inspection Face and sinus: Yes normal facial exam Mouth: Normal oral and palatal mucosa present Teeth and gingiva: d entition normal Eyes: General: appearance normal, both eyes and all related structures P upils: Equal, round and reactive pupils present Resp: Effort & Inspection: normal respiratory effort Cardio: Rate: regular rate Rhythm: regular rhythm GI: Palpation (GI): Soft to palpation and nontender : General: Yes no CVA tenderness Back/Spine/Pelvis: Back: no CVA tenderness Skin: General skin exam: no rashes or lesions noted Neuro: General: moves all extremities Cranial nerves: Yes Equal, round and reactive pupils present Extrem: General: Yes normal to inspection Psych: Appearance: grossly normal Results Labs 04/06/25 07:22 04/07/25 06:21 Labs: BMP 04/07/25 06:21 Sodium 145 Potassium 4.6 Chloride 104 Carbon Dioxide 30 H BUN 80 H Creatinine 2.10 H Calcium 7.0 L Microbiology Microbiology Results: Microbiology 04/03/25 Unknown Urine Catheterized - Moyer Catheter Urine Culture - Final Enterococcus faecalis Assessment and Plan (1) Generalized anxiety disorder: Status: Acute (2) CKD (chronic kidney disease): Qualifiers: Chronic kidney disease stage: unspecified stage Qualified Code(s): N 18.9 - Chronic kidney disease, unspecified Status: Acute Plan no treatment needed colonized providencia and enterococcus
[2025-04-07] MEDS: 0.9 % Sodium Chloride Flush 3 ML SYRINGE IVFLUSH ×2 (16:59→21:15)
[2025-04-07] MEDS: Furosemide 40 MG TABLET PO (16:59)
[2025-04-07 20:22] LABS: Glucose, Whole Blood 341 mg/dL (60-115)
[2025-04-07] MEDS: cefTRIAXone sodium 1 GM VIAL IVPUSH (21:14)
[2025-04-07] MEDS: Insulin Glargine,Hum.rec.anlog 100 UNIT/ML 10 ML VIAL 20 UNIT SUBCUT (21:14)
[2025-04-07] MEDS: Atorvastatin Calcium 40 MG TABLET PO (21:14)
[2025-04-07] MEDS: Enoxaparin Sodium 30 MG/0.3 ML SYRINGE SUBCUT (21:15)
[2025-04-08] VITALS (12 sets, daily range): BP systolic 107–164; BP diastolic 53–67; PULSE 54–88; RESP 13–27; TEMP 36.3–36.7; O2SAT 95–98
[2025-04-08] MEDS: hydrOXYzine HCL 50 MG TABLET PO (01:32)
[2025-04-08] MEDS: Levothyroxine Sodium 200 MCG TABLET PO (06:38)
[2025-04-08 07:06] LABS: Glucose, Whole Blood 137 mg/dL (60-115)
[2025-04-08] MEDS: Albuterol/Iprat 2.5/0.5MG 3 ML AMPUL.NEB INHALE ×4 (07:57→19:37)
[2025-04-08 08:18] LABS: B Type Natriuretic Peptide 596 pg/mL (<100)
[2025-04-08 09:16] LABS: Anion Gap 16 (12-20); Blood Urea Nitrogen 84 mg/dL (9-16); Calcium 6.5 mg/dL (8.4-10.2); Carbon Dioxide 30 mmol/L (22-29); Chloride 103 mmol/L (96-108); Creatinine Clr Calc Pharmacy 29.2; Estimated Glomerular Filt Rate 24; Glucose Random 145 mg/dL (60-115); Potassium 4.3 mmol/L (3.3-5.1); Sodium 145 mmol/L (135-145)
[2025-04-08] MEDS: Sertraline HCL 50 MG TABLET PO (09:54)
[2025-04-08] MEDS: gemfibroziL 600 MG TABLET PO ×2 (09:54→21:35)
[2025-04-08] MEDS: Ferrous Sulfate 324 MG TABLET.DR PO (09:54)
[2025-04-08] MEDS: 0.9 % Sodium Chloride Flush 3 ML SYRINGE IVFLUSH ×3 (09:55→21:36)
[2025-04-08] MEDS: Furosemide 40 MG TABLET PO (09:55)
[2025-04-08] MEDS: Sodium Bicarbonate 650 MG TABLET PO (09:55)
[2025-04-08] MEDS: Acetaminophen 325 MG TABLET 650 MG PO ×2 (09:56→21:42)
[2025-04-08 11:04] LABS: Glucose, Whole Blood 205 mg/dL (60-115)
[2025-04-08] MEDS: Insulin Lispro 100 UNIT/ML 3 ML VIAL SUBCUT ×3 (11:17→21:36)
[2025-04-08] MEDS: Nystatin Powder 15 GM BOTTLE 1 APPL TOPICAL ×2 (11:17→21:37)
[2025-04-08 15:40] LABS: Glucose, Whole Blood 178 mg/dL (60-115)
--- NOTE | 2025-04-08 16:25 | HO.PM.IMPN ---
Subjective Subjective Date of Service: 04/08/25 Interval History: chf anxiety Review of Systems Patient is still has some intermittent shortness of breath, also has anxiety, Otherwise talking in full sentences. Review of Systems: Yes all other systems are reviewed and are negative Physical Exam Vital Signs: Vital Signs: Last Vital Signs Temp 97.8 F 04/08/25 15:28 Pulse 66 04/08/25 15:28 Resp 18 04/08/25 15:28 BP 135/65 04/08/25 15:28 Pulse Ox 97 04/08/25 15:28 O2 Del Method Nasal Cannula 04/08/25 15:28 O2 Flow Rate 2 04/08/25 15:28 FiO2 30 04/03/25 15:43 Oxygen Flow Rate 3 04/03/25 10:33 BMI result Body Mass Index 43.2 Appearance: Alert.? Oriented X3. cvs: rrr, [id number] . res:air entry diminshed ,minimum wheezing ,few scattered rales at bases abd: no rebound or guarding ,nt, bs present. ext pulses present , no cyanosis neuro: axo3 , nonfocal. Objective Data Active Medications Acetaminophen (Acetaminophen 325 Mg Tablet) 650 mg PO Q6H PRN PRN Reason: Pain, Mild 1-3,fever,headache Last Admin: 04/08/25 09:56 Dose: 650 mg Documented By: ERIK Albuterol Sulfate (Albuterol Sulfate 90 Mcg 8 Gm Inhaler) 2 puff INHALE Q6H PRN PRN Reason: shortness of breath or wheezing Albuterol/Ipratropium (Albuterol/Iprat 2.5/0.5mg 3 Ml Ampul.Neb) 3 ml INHALE Q4H PRN PRN Reason: Shortness of Breath/Wheezing Albuterol/Ipratropium (Albuterol/Iprat 2.5/0.5mg 3 Ml Ampul.Neb) 3 ml INHALE RQ4H WHILE AWAKE [facility] Last Admin: 04/08/25 15:19 Dose: 3 ml Documented By: RAHEL Amlodipine Besylate (Amlodipine Besylate 5 Mg Tablet) 5 mg PO DAILY [facility]; Protocol Last Admin: 04/05/25 09:49 Dose: 5 mg Documented By: VIC Atorvastatin Calcium (Atorvastatin Calcium 40 Mg Tablet) 40 mg PO BEDTIME [facility] Last Admin: 04/07/25 21:14 Dose: 40 mg Documented By: RACHEL Benzonatate (Benzonatate 100 Mg Capsule) 100 mg PO TID PRN PRN Reason: Cough Calcium Carbonate (Calcium Carbonate 750 Mg Tab.Chew) 750 mg PO Q4H PRN PRN Reason: Heartburn Dextrose (Dextrose 50 % 25 Gm/50 Ml Syringe) 25 gm IVPUSH Q15M PRN; Protocol PRN Reason: per Hypoglycemia Standing Ord. Enoxaparin Sodium (Enoxaparin Sodium 30 Mg/0.3 Ml Syringe) 30 mg SUBCUT Q24H [facility] Last Admin: 04/07/25 21:15 Dose: 30 mg Documented By: RACHEL Ferrous Sulfate (Ferrous Sulfate 324 Mg Tablet.Dr) 324 mg PO DAILY [facility] Last Admin: 04/08/25 09:54 Dose: 324 mg Documented By: ERIK Furosemide (Furosemide 40 Mg/4 Ml Vial) 40 mg IVPUSH BID@0900,1800 [facility]; Protocol Gemfibrozil (Gemfibrozil 600 Mg Tablet) 600 mg PO BID [facility] Last Admin: 04/08/25 09:54 Dose: 600 mg Documented By: ERIK Glucose (Glucose Gel 15 Gm Gel..Gram.) 15 gm PO Q15M PRN; Protocol PRN Reason: per Hypoglycemia Standing Ord. Insulin Glargine (Insulin Glargine,Hum.Rec.Anlog 100 Unit/Ml 10 Ml Vial) 20 unit SUBCUT DAILY@1900 [facility] Last Admin: 04/07/25 21:14 Dose: 20 unit Documented By: RACHEL Insulin Human Lispro (Insulin Lispro 100 Unit/Ml 3 Ml Vial) 0 unit SUBCUT QIDACHS [facility]; Protocol Last Admin: 04/08/25 11:17 Dose: 4 unit Documented By: ERIK Levothyroxine Sodium (Levothyroxine Sodium 200 Mcg Tablet) 200 mcg PO DAILY@0600 [facility] Last Admin: 04/08/25 06:38 Dose: 200 mcg Documented By: RACHEL Magnesium Hydroxide (Milk Of Magnesia 30 Ml Oral.Susp) 30 ml PO DAILY PRN PRN Reason: Constipation Melatonin (Melatonin 3 Mg Tablet) 6 mg PO BEDTIME PRN PRN Reason: Insomnia Last Admin: 04/06/25 21:05 Dose: 6 mg Documented By: NICOLA Nystatin (Nystatin Powder 15 Gm Bottle) 1 appl TOPICAL BID [facility]; Protocol Last Admin: 04/08/25 11:17 Dose: 1 appl Documented By: ERIK Ondansetron HCl (Ondansetron Hcl 4 Mg/2 Ml Vial) 4 mg IVPUSH Q8H PRN PRN Reason: Nausea and Vomiting Sertraline HCl (Sertraline Hcl 50 Mg Tablet) 50 mg PO DAILY [facility] Last Admin: 04/08/25 09:54 Dose: 50 mg Documented By: ERIK Sodium Bicarbonate (Sodium Bicarbonate 650 Mg Tablet) 650 mg PO DAILY [facility] Last Admin: 04/08/25 09:55 Dose: 650 mg Documented By: ERIK Sodium Chloride (0.9 % Sodium Chloride Flush 3 Ml Syringe) 3 ml IVFLUSH QSHIFT [facility] Last Admin: 04/08/25 09:55 Dose: 3 ml Documented By: ERIK Labs 04/06/25 07:22 04/08/25 07:34 Labs: Laboratory Results - last 24 hr 04/07/25 04/08/25 04/08/25 20:11 07:03 07:33 Anion Gap Estim Creat Clear Calc Estimated GFR POC Glucose 341 H 137 H Random Glucose Calcium B-Natriuretic Peptide 596 H 04/08/25 04/08/25 04/08/25 07:34 11:00 15:36 Anion Gap 16 Estim Creat Clear Calc 29.2 Estimated GFR 24 POC Glucose 205 H 178 H Random Glucose 145 H Calcium 6.5 L D B-Natriuretic Peptide Assessment and Plan (1) Acute on chronic respiratory failure: Status: Acute (2) CHF exacerbation: Status: Acute Assessment and Plan: 79-year-old female with pertinent history of chronic hypoxemic respiratory failure due to COPD on 2 L supplemental oxygen, morbid obesity with TEZ noncompliant with CPAP, 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 Acute on chronic hypercapnic hypoxemic respiratory failure due to acute on chronic diastolic congestive heart failure and acute exacerbation of COPD: patient is 5 liter negative i/o sob seems similar ,also feels very anxious plan: still has some intermitent sob /anxiety continue IV Lasix. Strict I's and O's-neg 9.3 liters . Low-salt diet. Also initiated systemic steroids, scheduled and p.r.n. DuoNebs.cpap pulm eval /nephro eval following Avoid benzodiazepines. psych eval for anxiety MARJORIE on CKD stage 4: Cardiorenal type 1 in the setting of above. Improving with IV diuresis-rec to continue for today less likely UTI: Previous cultures with Enterococcus faecalis and Providencia. Urine culture reviewed by ID:no treatment needed iv antibiotics, likely colonized providencia and enterococcus. antibiotice stopped Normocytic anemia: Obtaining B12, folate, iron panel. Noted hemoglobin 7.1. Will order 1 unit PRBC to prevent high output failure. Insulin-dependent diabetes mellitus: Initiating Accu-Cheks with sliding scale insulin. Reduce hold basal insulin once med rec verified Hypothyroidism: On Synthroid Obesity/TEZ: CPAP at bedtime. Counseled regarding weight loss Venous stasis to lower extremities: Consulting Wound Care Mood disorder: Continue home mood stabilizers DVT prophylaxis: Lovenox . Reason for continued hospitalization: IV diuresis, ongoing dyspnea.moniter renal function/electrolytes. Quality Stroke Does the patient have a stroke diagnosis?: No VTE Prior VTE?: No VTE Risk Level:: Medical - moderate - high VTE Device Contraindication: Treatment Not Indicated VTE Drug Contraindication: N/A - Med Ordered
[2025-04-08] MEDS: Morphine Sulfate 2 MG/ML CARTRIDGE 1 MG IVPUSH (16:47)
[2025-04-08] MEDS: Furosemide 40 MG/4 ML VIAL IVPUSH (16:49)
[2025-04-08 20:24] LABS: Glucose, Whole Blood 174 mg/dL (60-115)
[2025-04-08] MEDS: Atorvastatin Calcium 40 MG TABLET PO (21:35)
[2025-04-08] MEDS: Enoxaparin Sodium 30 MG/0.3 ML SYRINGE SUBCUT (21:35)
[2025-04-08] MEDS: Melatonin 3 MG TABLET 6 MG PO (21:36)
[2025-04-08] MEDS: Insulin Glargine,Hum.rec.anlog 100 UNIT/ML 10 ML VIAL 20 UNIT SUBCUT (21:36)
[2025-04-09] VITALS (10 sets, daily range): BP systolic 135–152; BP diastolic 60–67; PULSE 63–83; RESP 16–24; TEMP 36.2–36.7; O2SAT 95–99
[2025-04-09] MEDS: Levothyroxine Sodium 200 MCG TABLET PO (06:11)
[2025-04-09] MEDS: Acetaminophen 325 MG TABLET 650 MG PO (06:12)
[2025-04-09 07:30] LABS: Glucose, Whole Blood 142 mg/dL (60-115)
[2025-04-09 08:07] LABS: Anion Gap 18 (12-20); Blood Urea Nitrogen 85 mg/dL (9-16); Calcium 6.6 mg/dL (8.4-10.2); Carbon Dioxide 31 mmol/L (22-29); Chloride 102 mmol/L (96-108); Creatinine Clr Calc Pharmacy 30.2; Estimated Glomerular Filt Rate 25; Glucose Random 149 mg/dL (60-115); Potassium 4.5 mmol/L (3.3-5.1); Sodium 146 mmol/L (135-145)
[2025-04-09] MEDS: Furosemide 40 MG/4 ML VIAL IVPUSH (08:15)
[2025-04-09] MEDS: Ferrous Sulfate 324 MG TABLET.DR PO (08:21)
[2025-04-09] MEDS: Sertraline HCL 50 MG TABLET PO (08:21)
[2025-04-09] MEDS: gemfibroziL 600 MG TABLET PO ×2 (08:21→20:43)
[2025-04-09] MEDS: Sodium Bicarbonate 650 MG TABLET PO (08:21)
[2025-04-09] MEDS: Albuterol/Iprat 2.5/0.5MG 3 ML AMPUL.NEB INHALE ×4 (08:22→20:01)
[2025-04-09] MEDS: 0.9 % Sodium Chloride Flush 3 ML SYRINGE IVFLUSH ×3 (08:23→20:44)
[2025-04-09] MEDS: Nystatin Powder 15 GM BOTTLE 1 APPL TOPICAL ×2 (08:24→20:44)
[2025-04-09 11:54] LABS: Glucose, Whole Blood 223 mg/dL (60-115)
[2025-04-09] MEDS: Insulin Lispro 100 UNIT/ML 3 ML VIAL SUBCUT ×3 (12:37→21:13)
[2025-04-09 15:49] LABS: Glucose, Whole Blood 215 mg/dL (60-115)
[2025-04-09] MEDS: Furosemide 40 MG TABLET PO (17:34)
--- NOTE | 2025-04-09 17:50 | P.PNIM_ITS ---
Subjective Subjective Date of Service: 04/09/25 Interval History: chf Review of Systems sob seems improving feels improving slowly Physical Exam 2 Vital Signs: Vital Signs: Last Vital Signs Temp 97.3 F 04/09/25 15:27 Pulse 70 04/09/25 16:18 Resp 19 04/09/25 16:18 BP 148/67 H 04/09/25 15:27 Pulse Ox 96 04/09/25 15:27 O2 Del Method Nasal Cannula 04/09/25 15:27 O2 Flow Rate 3 04/09/25 15:27 FiO2 30 04/03/25 15:43 Oxygen Flow Rate 3 04/03/25 10:33 BMI result Body Mass Index 43.2 Appearance: Alert.? Oriented X3. cvs: rrr, [id number] . res:air entry diminshed ,minimum wheezing ,few scattered rales at bases abd: no rebound or guarding ,nt, bs present. ext pulses present , no cyanosis neuro: axo3 , nonfocal. Objective Data Active Medications Acetaminophen (Acetaminophen 325 Mg Tablet) 650 mg PO Q6H PRN PRN Reason: Pain, Mild 1-3,fever,headache Last Admin: 04/09/25 06:12 Dose: 650 mg Documented By: RAFA Albuterol Sulfate (Albuterol Sulfate 90 Mcg 8 Gm Inhaler) 2 puff INHALE Q6H PRN PRN Reason: shortness of breath or wheezing Albuterol/Ipratropium (Albuterol/Iprat 2.5/0.5mg 3 Ml Ampul.Neb) 3 ml INHALE Q4H PRN PRN Reason: Shortness of Breath/Wheezing Albuterol/Ipratropium (Albuterol/Iprat 2.5/0.5mg 3 Ml Ampul.Neb) 3 ml INHALE RQ4H WHILE AWAKE [facility] Last Admin: 04/09/25 16:15 Dose: 3 ml Documented By: RAHEL Amlodipine Besylate (Amlodipine Besylate 5 Mg Tablet) 5 mg PO DAILY [facility]; Protocol Last Admin: 04/05/25 09:49 Dose: 5 mg Documented By: VIC Atorvastatin Calcium (Atorvastatin Calcium 40 Mg Tablet) 40 mg PO BEDTIME [facility] Last Admin: 04/08/25 21:35 Dose: 40 mg Documented By: RAFA Benzonatate (Benzonatate 100 Mg Capsule) 100 mg PO TID PRN PRN Reason: Cough Calcium Carbonate (Calcium Carbonate 750 Mg Tab.Chew) 750 mg PO Q4H PRN PRN Reason: Heartburn Dextrose (Dextrose 50 % 25 Gm/50 Ml Syringe) 25 gm IVPUSH Q15M PRN; Protocol PRN Reason: per Hypoglycemia Standing Ord. Enoxaparin Sodium (Enoxaparin Sodium 30 Mg/0.3 Ml Syringe) 30 mg SUBCUT Q24H [facility] Last Admin: 04/08/25 21:35 Dose: 30 mg Documented By: RAFA Ferrous Sulfate (Ferrous Sulfate 324 Mg Tablet.Dr) 324 mg PO DAILY [facility] Last Admin: 04/09/25 08:21 Dose: 324 mg Documented By: SONAL Furosemide (Furosemide 40 Mg Tablet) 40 mg PO BID@0900,1800 [facility]; Protocol Last Admin: 04/09/25 17:34 Dose: 40 mg Documented By: SONAL Gemfibrozil (Gemfibrozil 600 Mg Tablet) 600 mg PO BID [facility] Last Admin: 04/09/25 08:21 Dose: 600 mg Documented By: SONAL Glucose (Glucose Gel 15 Gm Gel..Gram.) 15 gm PO Q15M PRN; Protocol PRN Reason: per Hypoglycemia Standing Ord. Insulin Glargine (Insulin Glargine,Hum.Rec.Anlog 100 Unit/Ml 10 Ml Vial) 20 unit SUBCUT DAILY@1900 [facility] Last Admin: 04/08/25 21:36 Dose: 20 unit Documented By: RAFA Insulin Human Lispro (Insulin Lispro 100 Unit/Ml 3 Ml Vial) 0 unit SUBCUT QIDACHS [facility]; Protocol Last Admin: 04/09/25 17:26 Dose: 4 unit Documented By: SONAL Levothyroxine Sodium (Levothyroxine Sodium 200 Mcg Tablet) 200 mcg PO DAILY@0600 [facility] Last Admin: 04/09/25 06:11 Dose: 200 mcg Documented By: RAFA Magnesium Hydroxide (Milk Of Magnesia 30 Ml Oral.Susp) 30 ml PO DAILY PRN PRN Reason: Constipation Melatonin (Melatonin 3 Mg Tablet) 6 mg PO BEDTIME PRN PRN Reason: Insomnia Last Admin: 04/08/25 21:36 Dose: 6 mg Documented By: RAFA Nystatin (Nystatin Powder 15 Gm Bottle) 1 appl TOPICAL BID [facility]; Protocol Last Admin: 04/09/25 08:24 Dose: 1 appl Documented By: SONAL Ondansetron HCl (Ondansetron Hcl 4 Mg/2 Ml Vial) 4 mg IVPUSH Q8H PRN PRN Reason: Nausea and Vomiting Sertraline HCl (Sertraline Hcl 50 Mg Tablet) 50 mg PO DAILY [facility] Last Admin: 04/09/25 08:21 Dose: 50 mg Documented By: SONAL Sodium Bicarbonate (Sodium Bicarbonate 650 Mg Tablet) 650 mg PO DAILY [facility] Last Admin: 04/09/25 08:21 Dose: 650 mg Documented By: SONAL Sodium Chloride (0.9 % Sodium Chloride Flush 3 Ml Syringe) 3 ml IVFLUSH QSHIFT [facility] Last Admin: 04/09/25 17:26 Dose: 3 ml Documented By: SONAL Labs 04/06/25 07:22 04/09/25 07:13 Labs: Laboratory Results - last 24 hr 04/08/25 04/09/25 04/09/25 20:20 07:13 07:26 Hold Purple Top SEE NOTE Anion Gap 18 Estim Creat Clear Calc 30.2 Estimated GFR 25 POC Glucose 174 H 142 H Random Glucose 149 H Calcium 6.6 L 04/09/25 04/09/25 11:45 15:28 Hold Purple Top Anion Gap Estim Creat Clear Calc Estimated GFR POC Glucose 223 H 215 H Random Glucose Calcium Assessment and Plan (1) Acute on chronic respiratory failure: Status: Acute (2) CHF exacerbation: Status: Acute Assessment and Plan: 79-year-old female with pertinent history of chronic hypoxemic respiratory failure due to COPD on 2 L supplemental oxygen, morbid obesity with TEZ noncompliant with CPAP, 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 Acute on chronic hypercapnic hypoxemic respiratory failure due to acute on chronic diastolic congestive heart failure and acute exacerbation of COPD: patient is 5 liter negative i/o sob seems similar ,also feels very anxious plan: still has some intermitent sob /anxiety continue IV Lasix. Strict I's and O's-neg 9.3 liters . Low-salt diet. Also initiated systemic steroids, scheduled and p.r.n. DuoNebs.cpap pulm eval /nephro eval following Avoid benzodiazepines. psych eval for anxiety MARJORIE on CKD stage 4: Cardiorenal type 1 in the setting of above. Improving with IV diuresis-rec to continue for today less likely UTI: Previous cultures with Enterococcus faecalis and Providencia. Urine culture reviewed by ID:no treatment needed iv antibiotics, likely colonized providencia and enterococcus. antibiotice stopped Normocytic anemia: Obtaining B12, folate, iron panel. Noted hemoglobin 7.1. Will order 1 unit PRBC to prevent high output failure. Insulin-dependent diabetes mellitus: Initiating Accu-Cheks with sliding scale insulin. Reduce hold basal insulin once med rec verified Hypothyroidism: On Synthroid Obesity/TEZ: CPAP at bedtime. Counseled regarding weight loss Venous stasis to lower extremities: Consulting Wound Care Mood disorder: Continue home mood stabilizers DVT prophylaxis: Lovenox . Reason for continued hospitalization: trial of po diuretics and moniter clinically for 24 hrs if stays stable ,might plan for rehab. Quality Stroke Does the patient have a stroke diagnosis?: No VTE Prior VTE?: No VTE Risk Level:: Medical - moderate - high VTE Device Contraindication: Treatment Not Indicated VTE Drug Contraindication: N/A - Med Ordered
[2025-04-09] MEDS: Atorvastatin Calcium 40 MG TABLET PO (20:43)
[2025-04-09] MEDS: Insulin Glargine,Hum.rec.anlog 100 UNIT/ML 10 ML VIAL 20 UNIT SUBCUT (20:43)
[2025-04-09] MEDS: Enoxaparin Sodium 30 MG/0.3 ML SYRINGE SUBCUT (21:13)
[2025-04-09 21:17] LABS: Glucose, Whole Blood 193 mg/dL (60-115)
[2025-04-10] VITALS (9 sets, daily range): BP systolic 147–163; BP diastolic 63–74; PULSE 67–94; RESP 14–22; TEMP 36.2–36.5; O2SAT 93–99
[2025-04-10] MEDS: Melatonin 3 MG TABLET 6 MG PO (00:30)
[2025-04-10] MEDS: Acetaminophen 325 MG TABLET 650 MG PO ×2 (00:30→08:31)
[2025-04-10] MEDS: Albuterol/Iprat 2.5/0.5MG 3 ML AMPUL.NEB INHALE ×4 (03:29→14:04)
[2025-04-10 04:47] LABS: HBc Num1 0.08 S/CO (0.00-0.79); HBsAGNum1 0.26 S/CO (0.00-0.99); Hepatitis B Core Antibody Nonreactive (Nonreactive); Hepatitis B Surface Antigen Negative (Negative); ~HepC Num1 0.15 S/CO (0.00-0.79); ~Hepatitis B Surface Antibody NONREACTIVE (Nonreactive); ~Hepatitis C Antibody Nonreactive (Nonreactive)
[2025-04-10] MEDS: Levothyroxine Sodium 200 MCG TABLET PO (05:47)
[2025-04-10 07:21] LABS: Glucose, Whole Blood 90 mg/dL (60-115)
[2025-04-10] MEDS: Ferrous Sulfate 324 MG TABLET.DR PO (08:23)
[2025-04-10] MEDS: Furosemide 40 MG TABLET PO (08:23)
[2025-04-10] MEDS: gemfibroziL 600 MG TABLET PO (08:23)
[2025-04-10] MEDS: Sodium Bicarbonate 650 MG TABLET PO (08:23)
[2025-04-10] MEDS: Sertraline HCL 50 MG TABLET PO (08:23)
[2025-04-10] MEDS: Nystatin Powder 15 GM BOTTLE 1 APPL TOPICAL (08:29)
--- NOTE | 2025-04-10 08:40 | P.PNNP_ITS ---
Subjective Subjective Date of Service: 04/10/25 Interval history: Pt is a 79 y/o female with a medical history of COPD on 2L at home, obesity, TEZ, right diastolic heart failure, CKD4, DMII, HTN, HLD, mood disorder. She is wheelchair bound at home. 04/03 presented with dyspnea, imaging with pleural effusions and pulmonary vascular congestion Nephrology consulted for MARJORIE 02/28 creatinine was 1.48 04/03 on presentation 2.23 04/04 1.98 04/05 1.86 04/06 1.98 04/07 2.10 04/08 1.99 04/10 1.93 states her breathing is ok, feels at her baseline- currently on 4L denies chest pain, dizziness, abdominal pain, urinary symptoms Physical Exam 2 Vital Signs: Vital Signs: Last Vital Signs Temp 97.6 F 04/10/25 07:41 Pulse 76 04/10/25 11:30 Resp 16 04/10/25 11:30 BP 155/68 H 04/10/25 07:41 Pulse Ox 99 04/10/25 07:41 O2 Del Method Nasal Cannula 04/10/25 07:41 O2 Flow Rate 4 04/10/25 07:41 FiO2 30 04/03/25 15:43 Oxygen Flow Rate 3 04/03/25 10:33 BMI result Body Mass Index 43.2 Const: General: no acute distress, alert and awake Resp: Effort & Inspection: normal respiratory effort and able to speak in complete sentences Auscultation: diminished lung sounds Cardio: Rate: regular rate Rhythm: regular rhythm Heart sounds: S1 normal heart sound present and S2 normal heart sound present GI: Palpation (GI): Soft to palpation and nontender Extrem: General: No edema Objective Data Labs 04/06/25 07:22 04/09/25 07:13 Labs: Laboratory Results - last 24 hr 04/08/25 04/09/25 04/09/25 07:34 11:45 15:28 POC Glucose 223 H 215 H Hep Bs Antigen Negative Hep Bs Antibody NONREACTIVE Hep B Core Total Ab Nonreactive Hepatitis C Ab (EIA) Nonreactive 04/09/25 04/10/25 04/10/25 20:59 07:16 11:21 POC Glucose 193 H 90 145 H Hep Bs Antigen Hep Bs Antibody Hep B Core Total Ab Hepatitis C Ab (EIA) Microbiology Microbiology Results: Microbiology 04/03/25 Unknown Urine Catheterized - Moyer Catheter Urine Culture - Final Enterococcus faecalis Procedures Date of Service Date of Service: 04/10/25 Assessment & Plan Assessment and plan (1) Acute kidney injury superimposed on chronic kidney disease: Status: Resolved Plan MARJORIE on CKD likely secondary to CHF exacerbation creatinine has stabilized, likely at baseline recommend continue oral dose of lasix 40mg PO BID until respiratory status improves, then may decrease dose. patient has ongoing anemia and proteinuria, SPEP/UPEP and serum light chains pending recommend avoiding nephrotoxins continue supportive care Will arrange for outpatient follow up Discussed with Dr Baires Time Spent With Patient Time: Total time managing care of this patient today ____ minutes. Progress Note: Quality Stroke Does the patient have a stroke diagnosis?: No
--- NOTE | 2025-04-10 09:10 | PC.RT ---
Respiratory attempted to do a sleep study last week but pt admittantly refused to do it. She should do outpateint sleep study.
[2025-04-10 11:28] LABS: Glucose, Whole Blood 145 mg/dL (60-115)
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
--- NOTE | 2025-04-10 14:45 | PM.DS ---
DS: Providers Provider Date of Service: 04/10/25 Date of admission: 04/03/25 21:49 Date of discharge: 04/10/25 Primary care physician: Neida Soto MD Consults: 04/04/25 12:10 Consult to Wound Care Routine Reason for consultation: Bilateral Lower Legs 04/05/25 08:18 Consult to Infectious Diseases Routine Consulting Provider: [facility] Reason for consultation: enterococcus / Providencia uti Has provider been notified: No 04/05/25 09:59 Consult to Pulmonology Routine Consulting Provider: [facility] Pul[facility] Reason for consultation: acute hypoximic respiratory failur e Has provider been notified: No 04/06/25 08:17 Consult to Nephrology Routine Consulting Provider: [facility] Reason for consultation: chf/ckd Has provider been notified: No 04/08/25 16:25 Consult to Psychiatry Routine Consulting Provider: [facility] Psych Covering Reason for consultation: severe anxiety Has provider been notified: No DS: Diagnosis Discharge Diagnosis (1) Acute on chronic respiratory failure: Status: Acute (2) CHF exacerbation: Status: Acute (3) Generalized anxiety disorder: Status: Acute DS: Summary Hospital Course Hospital Course: HPI: 79-year-old female with pertinent history of chronic hypoxemic respiratory failure due to COPD on 2 L supplemental oxygen, morbid obesity with TEZ noncompliant with CPAP, 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 Patient states her symptoms started 1 day prior to presentation. She does endorse lower extremity leg swelling and dyspnea which is worse with lying flat. Also has wheezing and intermittent productive cough with clear sputum production. She used her home inhaler without any relief. Also noted change in color of urine. No fever, chills, chest pain, palpitations, abdominal pain, changes in urinary or bowel habits. In the emergency department, imaging with cardiomegaly, pleural effusions and pulmonary vascular congestion. BNP found to be elevated. Initially patient with respiratory acidosis and required BiPAP in the ER. 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 Acute on chronic hypercapnic hypoxemic respiratory failure due to acute on chronic diastolic congestive heart failure and acute exacerbation of COPD: Patient initially required BiPAP in the ED, also in addition started on IV Lasix-patient initial chest x-ray showed Diffuse interstitial prominence in both lungs may represent pulmonary edema/pulmonary vascular congestion: With IV Lasix patient shortness of breaths still was not improving so patient was switched to IV Lasix drip, subsequently patient diuresed well, she is 13 L negative fluid balance, shortness of breaths significantly improved,Talking in the full sentences, sats are 96% on 4 L-slowly taper oxygen in rehab. Repeat chest x-ray also improving. MARJORIE on CKD stage 4: Cardiorenal type 1 in the setting of above. Seen by Nephrology:MARJORIE on CKD likely secondary to CHF exacerbation ,creatinine has stabilized, likely at baseline. recommend continue oral dose of lasix 40mg PO BID until respiratory status improves, then may decrease dose. patient has ongoing anemia and proteinuria, SPEP/UPEP and serum light chains pending,recommend avoiding nephrotoxins. renal us shows :Limited examination demonstrated no gross hydronephrosis.2 cm exophytic cystic lesion, right kidney. Patient is to closely monitor BMP and electrolytes as well as BNP outpatient, follow-up with Nephrology outpatient for CKD and anemia, renal exophytic cystic lesion . less likely UTI: Previous cultures with Enterococcus faecalis and Providencia. Urine culture reviewed by ID:no treatment needed iv antibiotics, likely colonized providencia and enterococcus. antibiotice stopped Normocytic anemia: B12 folate normal, iron panel shows as above low iron sats and iron levels. Added p.o. iron. H&H is around 8.0/27.5( hematocrit likely corresponds to H&H of 9 at least.) Patient denies any new complaints. Monitor CBC outpatient and further workup outpatient with Nephro and PCP. Sacrum / coccyx and Bilateral Ischium (ch masd),left leg :Bilateral Lower Legs (venous dermatitis/wounds): wound care saw the patient: Turn and Reposition every 2 hours and as needed for patient comfort.? Use pillows or wedges to support off loading positions. Off Load all bony prominences with use of pillows and heel boots if needed.? Apply Preventative foams where needed. ? Monitor for incontinence and moisture control, use barrier creams when needed for prevention and treatment. Provide adequate and supplemental nutrition.? When applicable maintain blood glucose levels per Providers order. Sacrum / Coccyx - Off Load Pressure with Q2 hr turns and use of pillows - Routine cleansing.? Apply skin prep allow to dry.? Cover with foam dressing to aid in off loading and protection from friction. Change every 3 days and PRN. Bilateral Ischium - Off Load Pressure with Q2 hr turns and use of pillows - Cleanse with PH balance spray or wipes, pat dry. ?Apply thin layer of barrier cream to affected area.? Apply twice daily and Reapply thin layer PRN after each episode of incontinence. Bilateral Lower Legs - Elevate lower legs off of surface of bed with use of pillows.? Cleanse with NS, Pat dry.? Apply Ammonium Lactate to both legs, apply layer of Durafiber to open wound beds secure with ABD pad, gauze wrap and tape.? Change Daily. Skin Folds - Cleanse with PH balance wipes, pat dry with soft cloth.? Apply antifungal power to assist with moisture management.? Be sure to dust of excess powder to prevent caking on skin and in folds. Apply per provider orders. Tuck Interdry AG Sheet into skin fold to wick and translocate moisture away from skin fold.? Be sure to leave at least 2 inch of fabric exposed outside of skin fold.? Change after 5 days or when soiled. Re-consult wound care Nurse for wound deterioration or wound changes. Plan: Lasix adjusted to 40 mg p.o. b.i.d. CHF education given CHF education given-if gains weight 2 lb or more in a week-will need outpatient Lasix dosing assessment with PCP. Consider Follow-up with cardiology outpatient. Patient is to closely monitor BMP and electrolytes as well as BNP outpatient, follow-up with Nephrology outpatient for CKD and anemia, also will need urology appointment outpatient for renal exophytic cystic lesion . Normocytic anemia: Status post 1 PRBC transfusion: H&H stable around 8, patient iron studies iron and iron sats are low added p.o. iron. As per Nephro:patient has ongoing anemia and proteinuria, SPEP/UPEP and serum light chains pending: Patient is to follow-up with Nephrology outpatient. further anemia workup outpatient. Wound care instructions as above. Above management discussed with the patient in detail length she understand and in agreement with the above plan, time spent 40 minute, all questions answered. Staff was present during conversation. In addition tried to reach out patient's son but unable to contact, case management spoke to the son and made him aware. Time Attestation Total time managing care of this patient today: 40 mintues. Discharge Coordination Time (in mins): 40 min Quality: Safe Use of Opioids Does Pt have an Active Cancer Diagnosis on the Problem List?: No Quality: Stroke Does the patient have a stroke diagnosis?: No Physical Exam Vital Signs: Vital Signs: Last Vital Signs Temp 97.1 F 04/10/25 12:25 Pulse 94 04/10/25 14:04 Resp 22 H 04/10/25 14:04 BP 163/74 H 04/10/25 12:25 Pulse Ox 96 04/10/25 12:25 O2 Del Method Nasal Cannula 04/10/25 12:25 O2 Flow Rate 4 04/10/25 12:25 FiO2 30 04/03/25 15:43 Oxygen Flow Rate 3 04/03/25 10:33 BMI result Body Mass Index 43.2 Appearance: Alert.? Oriented X3. cvs: rrr, [id number] . res: Air entry significantly improved, no rales or wheezing. abd: no rebound or guarding ,nt, bs present. ext pulses present , no cyanosis , no edema. neuro: axo3 , nonfocal. DS: Data Data Completed and Pending Completed studies during hospitalization [Text1]: Procedures Assistance with Respiratory Ventilation, Less than 24 Consecutive Hours, Continuous Positive Airway Pressure (01/05/25) Drainage of Left Pleural Cavity, Percutaneous Approach (08/03/24) Insertion of Infusion Device into Superior Vena Cava, Percutaneous Approach (11/10/21) Performance of Urinary Filtration, Intermittent, Less than 6 Hours Per Day (11/10/21) Labs on day of discharge: Laboratory Results - last 24 hr 04/08/25 04/09/25 04/09/25 07:34 15:28 20:59 POC Glucose 215 H 193 H Hep Bs Antigen Negative Hep Bs Antibody NONREACTIVE Hep B Core Total Ab Nonreactive Hepatitis C Ab (EIA) Nonreactive 04/10/25 04/10/25 07:16 11:21 POC Glucose 90 145 H Hep Bs Antigen Hep Bs Antibody Hep B Core Total Ab Hepatitis C Ab (EIA) Imaging Chest x-ray: Radiologist's impression: ITS Impressions Chest X-Ray 04/03/25 10:55 IMPRESSION: Cardiomegaly with pulmonary vascular congestion and small pleural effusions. Chest X-Ray 04/05/25 13:32 IMPRESSION: Cardiomegaly and mild improved lung markings suggests improving pulmonary edema/vascular congestion with possible trace left pleural effusion. Renal Ultrasound 04/07/25 10:30 IMPRESSION: Limited examination demonstrated no gross hydronephrosis. 2 cm exophytic cystic lesion, right kidney. Discharge Plan Discharge Anticipated Discharge Date/Time: 04/10/25 14:20 Patient Disposition: er [facility] Discharge Diagnosis: chf Referrals: [facility] [Outside] - 1 Week Oscar Avalos MD [Physician] - 1 Week Neida Mirza MD [Primary Care Provider] - 1 Week Discharge Medications: New nystatin [Nyamyc] 100,000 unit/gram Powder 1 appl topical BID Qty: 1 0RF Protocol: Apply to: Apply to: skin furosemide 40 mg Tablet 40 mg PO BID@0900,1800 Qty: 1 0RF Protocol: Hold for SBP< HOLD for SBP < : 90 benzonatate 100 mg Capsule 100 mg PO TID PRN (Reason: Cough) Qty: 1 0RF ferrous sulfate 324 mg (65 mg iron) Tablet,Delayed Release (Dr/Ec) 324 mg PO DAILY Qty: 1 0RF Continued (DME) Lift chair See Rx Instructions .Route .MEDSUPPLY Qty: 1 0RF Rx Instructions: As directed (DME) compression stockings 40 mmHg knee high See Rx Instructions .Route .MEDSUPPLY Qty: 1 0RF Rx Instructions: As directed albuterol sulfate [Ventolin HFA] 90 mcg/actuation HFA aerosol inhaler 2 puff inhalation Q6H PRN (Reason: shortness of breath or wheezing) Qty: 1 1RF insulin glargine [Basaglar KwikPen U-100 Insulin] 100 unit/mL (3 mL) insulin pen 25 unit subcut DAILY@1900 atorvastatin 40 mg tablet 40 mg PO BEDTIME 90 Days Qty: 90 3RF (DME) Accu-Chek Guide test strips Strip See Rx Instructions .Route Qty: 100 3RF Rx Instructions: Use 1 test strip once a day (DME) Accu-Chek Odilia Plus test strp Strip See Rx Instructions .Route Qty: 100 1RF Rx Instructions: Use 1 test strip once a day Jardiance 10 mg tablet 10 mg PO DAILY Qty: 90 1RF gemfibrozil 600 mg tablet 600 mg PO BID Qty: 180 1RF (DME) insulin syringe-needle U-100 0.5 mL 31 gauge x 5/16 syringe See Rx Instructions .Route Qty: 100 3RF Rx Instructions: Use 1 needle once a day (DME) lancets [Accu-Chek Softclix Lancets] Misc See Rx Instructions .Route Qty: 100 3RF Rx Instructions: Use 1 lancet once a day levothyroxine 200 mcg tablet 200 mcg PO DAILY@0600 90 Days Qty: 90 0RF (DME) pen needle, diabetic [1st Tier Unifine Pentips] 31 gauge x 5/16 needle See Rx Instructions .Route Qty: 100 4RF Rx Instructions: Use 1 pen needle once a day sodium bicarbonate 650 mg tablet 650 mg PO DAILY Qty: 90 0RF Lokelma 10 gram powder in packet 10 g PO DAILY Qty: 90 0RF amlodipine 5 mg tablet 5 mg PO DAILY Qty: 90 2RF ammonium lactate 12 % lotion 1 appl topical BID Qty: 400 3RF Changed sertraline 50 mg tablet 75 mg PO DAILY Qty: 1 0RF Discontinued furosemide 40 mg tablet 40 mg PO DAILY Qty: 90 0RF Discharge Orders: Discharge Order (Routine); Ordered 04/10/25 Ordered By: Beltran Barfield Diet: Advance to usual diet Activity on Discharge: As tolerated Stand Alone Forms: Patient Portal Discharge page Print Language: Grenadian Activity Restrictions/Additional Instructions: Turn and Reposition every 2 hours and as needed for patient comfort.? Use pillows or wedges to support off loading positions. Off Load all bony prominences with use of pillows and heel boots if needed.? Apply Preventative foams where needed. ? Monitor for incontinence and moisture control, use barrier creams when needed for prevention and treatment. Provide adequate and supplemental nutrition.? When applicable maintain blood glucose levels per Providers order. Sacrum / Coccyx - Off Load Pressure with Q2 hr turns and use of pillows - Routine cleansing.? Apply skin prep allow to dry.? Cover with foam dressing to aid in off loading and protection from friction. Change every 3 days and PRN. Bilateral Ischium - Off Load Pressure with Q2 hr turns and use of pillows - Cleanse with PH balance spray or wipes, pat dry. ?Apply thin layer of barrier cream to affected area.? Apply twice daily and Reapply thin layer PRN after each episode of incontinence. Bilateral Lower Legs - Elevate lower legs off of surface of bed with use of pillows.? Cleanse with NS, Pat dry.? Apply Ammonium Lactate to both legs, apply layer of Durafiber to open wound beds secure with ABD pad, gauze wrap and tape.? Change Daily. Skin Folds - Cleanse with PH balance wipes, pat dry with soft cloth.? Apply antifungal power to assist with moisture management.? Be sure to dust of excess powder to prevent caking on skin and in folds. Apply per provider orders. Tuck Interdry AG Sheet into skin fold to wick and translocate moisture away from skin fold.? Be sure to leave at least 2 inch of fabric exposed outside of skin fold.? Change after 5 days or when soiled. Re-consult wound care Nurse for wound deterioration or wound changes. Care Plan Goals: As below. Health Concerns: Lasix adjusted to 40 mg p.o. b.i.d. Sertraline increased 75 mg daily as per psych and further titration outpatient per anxiety. For renal cystic lesion needs to follow outpatient with Urology. CHF education given CHF education given-if gains weight 2 lb or more in a week-will need outpatient Lasix dosing assessment with PCP. Consider Follow-up with cardiology outpatient. Monitor BMP and BNP outpatient, follow-up with Nephrology outpatient. Normocytic anemia: Status post 1 PRBC transfusion: H&H stable around 8, patient iron studies iron and iron sats are low added p.o. iron. As per Nephro:patient has ongoing anemia and proteinuria, SPEP/UPEP and serum light chains pending: Patient is to follow-up with Nephrology outpatient. further anemia workup outpatient. Wound care instructions as above. Plan of Treatment: As above. Assessment: As above. Patient Instructions: Heart Failure (DC), Chronic Kidney Disease (DC)
--- NOTE | 2025-04-10 15:49 | MHC.CM.PN ---
Second IMM, pt has been medically cleared for DC, she will go to [facility] for STR via BLS, CM discussed this plan with her and her son at her request, both are in agreement.
--- NOTE | 2025-04-10 16:15 | PC.NURSE ---
this RN walkedin pt room and pt was sleeping. woke pt up and asked permission for BLE wound dsg change. pt started to yell and said Im in pnic attack . I need tranquilizer before anything. They wanted to transfer me . this Rn saw top case assembler went in to notified pt about going to STR today earlier w no issue. HE and O2 sat was within limit at this time. MD notified and morphine given per dec. after 3 min, this rn reassessed and pt agree to go and EMS at bedside.
[2025-04-10] MEDS: Morphine Sulfate 2 MG/ML CARTRIDGE 1 MG IVPUSH (16:23)
[2025-04-10 16:31] LABS: Glucose, Whole Blood 147 mg/dL (60-115)
[2025-04-12 06:53] LABS: PEU-Protein Creat Ratio Rand 2.559 (0.024-0.184); PEU-Rand. Prot/Creat Ratio 2559 mg/g creat (24-184); PEU-Random Ur. Gamma Globulin 9 %; PEU-Random Urine A1 Globulin 10 %; PEU-Random Urine A2 Globulin 10 %; PEU-Random Urine Albumin 57 %; PEU-Random Urine Beta Globulin 14 %; PEU-Random Urine Creatinine 34 mg/dL (20-275); PEU-Random Urine Protein 87 mg/dL (5-24)
[2025-04-12 17:03] LABS: Prot Elec - Albumin 2.8 g/dL (3.8-4.8); Prot Elec - Alpha1 0.5 g/dL (0.2-0.3); Prot Elec - Alpha2 0.8 g/dL (0.5-0.9); Prot Elec - Beta 1 0.4 g/dL (0.4-0.6); Prot Elec - Beta 2 0.5 g/dL (0.2-0.5); Prot Elec - Total Protein 5.9 g/dL (6.1-8.1)
[2025-04-17 16:49] LABS: Kappa, Serum 273 mg/dL (176-443); Kappa/Lambda Ratio, Serum 1.99 (1.29-2.55); Lambda, Serum 137 mg/dL (91-240)
== END 2025-04-10 17:00 | disposition skilled nursing facility (03) | DRG 291 ==
LOC: HO.ED 22:17 → HO.EDOVER 22:18 → HO.S3 04-04 07:41 → HO.IMC 04-05 14:47
PROVIDERS: Emergency Medicine; Internal Medicine; Nurse Practitioner Family; Physician Assistant Medical; Admitting Provider Student in an Organized Health Care Education/Training Program; Emergency Provider Internal Medicine; PCP Internal Medicine; Visit Provider Internal Medicine
DX: I13.0 Hypertensive heart and chronic kidney disease with heart failure and stage 1 through stage 4 chronic kidney disease, or unspecified chronic kidney disease (principal); I50.33 Acute on chronic diastolic (congestive) heart failure; J96.22 Acute and chronic respiratory failure with hypercapnia; J96.21 Acute and chronic respiratory failure with hypoxia; N18.4 Chronic kidney disease, stage 4 (severe); N17.9 Acute kidney failure, unspecified; N39.0 Urinary tract infection, site not specified; Z68.41 Body mass index [BMI] 40.0-44.9, adult; J44.1 Chronic obstructive pulmonary disease with (acute) exacerbation; E11.22 Type 2 diabetes mellitus with diabetic chronic kidney disease; D63.1 Anemia in chronic kidney disease; E03.9 Hypothyroidism, unspecified; I27.29 Other secondary pulmonary hypertension; E66.01 Morbid (severe) obesity due to excess calories; Z71.3 Dietary counseling and surveillance; G47.33 Obstructive sleep apnea (adult) (pediatric); F41.1 Generalized anxiety disorder; I87.8 Other specified disorders of veins; I50.812 Chronic right heart failure; Z20.822 Contact with and (suspected) exposure to COVID-19; Z87.891 Personal history of nicotine dependence; Z87.440 Personal history of urinary (tract) infections; Z99.81 Dependence on supplemental oxygen; Z91.198 Patient's noncompliance with other medical treatment and regimen for other reason; Z79.4 Long term (current) use of insulin; Z79.890 Hormone replacement therapy; Z79.899 Other long term (current) drug therapy
CPT/HCPCS: 0241U; 36415; 36600; 71045; 76775; 80048; 80076; 81001; 82570; 82607; 82746; 82803; 82947; 83540; 83735; 83880; 83883; 84156; 84165; 84166; 84300; 84484; 85014; 85018; 85025; 86704; 86706; 86803; 86850; 86900; 86901; 86923; 87086; 87088; 87186; 87340; 93005; 94640; 94660; 97162; 99285; J0290; J0696; J1120; J1650; J1938; J2270; J3360; P9016

== ENCOUNTER → 2025-04-03 10:35 | Outpatient (BNV) | payer MEDICARE, MEDICAID, SELFPAY | PROVIDERS: Emergency Provider Internal Medicine; PCP Internal Medicine; Visit Provider Student in an Organized Health Care Education/Training Program | DX: I50.9 Heart failure, unspecified (principal); J96.20 Acute and chronic respiratory failure, unspecified whether with hypoxia or hypercapnia | CPT/HCPCS: 99223; 99231; 99232; 99233; 99499 ==

== ENCOUNTER → 2025-04-03 10:50 | Outpatient (BNV) | payer MEDICARE, MEDICAID, SELFPAY | PROVIDERS: Admitting Provider Student in an Organized Health Care Education/Training Program; Emergency Provider Internal Medicine; PCP Internal Medicine; Visit Provider Internal Medicine Cardiovascular Disease | DX: I45.4 Nonspecific intraventricular block (principal) | CPT/HCPCS: 93010 ==

== ENCOUNTER → 2025-04-03 10:50 | Outpatient (BNV) | payer MEDICARE, MEDICAID, SELFPAY | PROVIDERS: Emergency Provider Emergency Medicine; PCP Internal Medicine; Visit Provider Radiology Diagnostic Radiology | DX: I51.7 Cardiomegaly (principal) | CPT/HCPCS: 71045 ==

== ENCOUNTER 2025-04-03 21:49 | Outpatient (BNV) | payer MEDICARE, MEDICAID, SELFPAY | END 2025-04-04 21:24 | PROVIDERS: Admitting Provider Student in an Organized Health Care Education/Training Program; Emergency Provider Internal Medicine; PCP Internal Medicine; Visit Provider Student in an Organized Health Care Education/Training Program | DX: I51.7 Cardiomegaly (principal) | CPT/HCPCS: 71045 ==

== ENCOUNTER 2025-04-03 21:49 | Outpatient (BNV) | payer MEDICARE, MEDICAID, SELFPAY | END 2025-04-05 13:32 | PROVIDERS: Admitting Provider Student in an Organized Health Care Education/Training Program; Emergency Provider Internal Medicine; PCP Internal Medicine; Visit Provider Radiology Diagnostic Radiology | DX: I51.7 Cardiomegaly (principal) | CPT/HCPCS: 71045 ==

== ENCOUNTER 2025-04-03 21:49 | Outpatient (BNV) | payer MEDICARE, MEDICAID, SELFPAY | END 2025-04-07 10:30 | PROVIDERS: Admitting Provider Student in an Organized Health Care Education/Training Program; Emergency Provider Internal Medicine; PCP Internal Medicine; Visit Provider Radiology Diagnostic Radiology | DX: N28.1 Cyst of kidney, acquired (principal) | CPT/HCPCS: 76775 ==

== ENCOUNTER → 2025-04-03 21:49 | Outpatient (BNV) | payer MEDICARE, MEDICAID, SELFPAY | PROVIDERS: Admitting Provider Student in an Organized Health Care Education/Training Program; Emergency Provider Internal Medicine; PCP Internal Medicine; Visit Provider Clinical Nurse Specialist Psychiatric/Mental Health, Adult | DX: F41.1 Generalized anxiety disorder (principal); J96.20 Acute and chronic respiratory failure, unspecified whether with hypoxia or hypercapnia; I50.9 Heart failure, unspecified | CPT/HCPCS: 99232 ==

== ENCOUNTER → 2025-04-03 21:49 | Outpatient (BNV) | payer MEDICARE, MEDICAID, SELFPAY | PROVIDERS: Admitting Provider Student in an Organized Health Care Education/Training Program; Emergency Provider Internal Medicine; PCP Internal Medicine; Visit Provider Internal Medicine Pulmonary Disease | DX: J43.2 Centrilobular emphysema (principal); I27.20 Pulmonary hypertension, unspecified; I50.9 Heart failure, unspecified; J96.20 Acute and chronic respiratory failure, unspecified whether with hypoxia or hypercapnia | CPT/HCPCS: 99222 ==

== ENCOUNTER → 2025-04-03 21:49 | Outpatient (BNV) | payer MEDICARE, MEDICAID, SELFPAY | PROVIDERS: Admitting Provider Student in an Organized Health Care Education/Training Program; Emergency Provider Internal Medicine; PCP Internal Medicine; Visit Provider Internal Medicine | DX: N18.9 Chronic kidney disease, unspecified (principal); F41.1 Generalized anxiety disorder | CPT/HCPCS: 99232 ==

== ENCOUNTER → 2025-04-03 21:49 | Outpatient (BNV) | payer MEDICARE, MEDICAID, SELFPAY | PROVIDERS: Admitting Provider Student in an Organized Health Care Education/Training Program; Emergency Provider Internal Medicine; PCP Internal Medicine; Visit Provider Nurse Practitioner Family | DX: N17.9 Acute kidney failure, unspecified (principal); N18.9 Chronic kidney disease, unspecified | CPT/HCPCS: 99221; 99231; 99232 ==

== ENCOUNTER → 2025-04-10 23:59 | Outpatient (BNV) | payer MEDICARE, MEDICAID, SELFPAY | PROVIDERS: PCP Internal Medicine; Visit Provider Internal Medicine | DX: J43.9 Emphysema, unspecified (principal); E78.00 Pure hypercholesterolemia, unspecified; F41.1 Generalized anxiety disorder | CPT/HCPCS: G0180 ==

== ENCOUNTER 2025-04-25 14:23 | Inpatient (IN) | payer MEDICARE, MEDICAID, SELFPAY ==
[2025-04-25] VITALS (23 sets, daily range): BP systolic 90–148; BP diastolic 25–85; PULSE 53–71; RESP 16–25; TEMP 36.1–36.6; O2SAT 89–100; BMI 42.7; BMI 37.8
--- NOTE | ~2025-04-25 | XR_ITS ---
EXAMINATION: XR CHEST 1 VIEW HISTORY: SOB COMPARISON: Comparison is made with the prior examination performed earlier in the day at 7:04 AM. FINDINGS: A single AP portable view of the chest performed at 11:41 AM is submitted. An endotracheal tube is unchanged in position. An orogastric tube is seen with its tip at the GE junction. There is prominence of the pulmonary vasculature, consistent with congestion. Again seen is opacification of the left lung base which may represent atelectasis, pneumonia, or pleural fluid. The heart remains enlarged. The aorta is calcified. There is degenerative disc disease of the spine. XR/XR chest 1V IMPRESSION: 1. ET tube unchanged in position. 2. The tip of the nasogastric tube is at the GE junction. Advancement of the tube is recommended. 3. Cardiomegaly and mild pulmonary vascular congestion. Opacification of the left lung base may represent atelectasis, pneumonia, or pleural fluid. Electronically signed by: Valeriano Garnett MD 04/26/2025 11:53 AM EDT
--- NOTE | ~2025-04-25 | XR_ITS ---
EXAMINATION: XR CHEST CLINICAL INFORMATION: Hypoxia COMPARISON: April 25, 2025. TECHNIQUE: Frontal view of the chest was obtained. FINDINGS: Cardiomediastinal silhouette is midline. There is an aerated left upper lung lobe. There is an opacity with a meniscal shaped superior concavity left lower hemithorax. The endotracheal tube is 3 cm above jaqui. There is a NG tube which appears to and intrathoracic at the diaphragmatic level region. XR/XR chest 1V IMPRESSION: Improved aeration left lung. Left-sided pleural effusion, moderate volume. Mild interstitial lung edema. Electronically signed by: Jorge Blancas MD 04/26/2025 11:06 AM EDT
--- NOTE | ~2025-04-25 | CT_ITS ---
CLINICAL HISTORY: shortened LLE CT pelvis without IV contrast. COMPARISON: XR pelvis dated 04/25/25 at 16:[address] abdomen and pelvis dated 10/27/24 at 10:17 EST FINDINGS: Moyer catheter present within the urinary bladder. No free fluid within the pelvis. Xvkczvtv-sz-cviap amount of stool within the partially visualized large bowel. No adnexal mass. Small fat containing umbilical hernia. Body wall anasarca. Visualized portions of the proximal femur appear intact. Femoral heads are appropriately seated within the acetabulum. Moderate to advanced bilateral degenerative changes of the hips. Bones of the pelvis appear intact. Degenerative changes of the partially visualized lower lumbar spine. IMPRESSION: 1. No evidence of acute injury to the pelvis or hips bilaterally. 2. Ymldkrrw-tq-ehixj colonic stool burden partially visualized. This document has been electronically signed by: Bhupinder Easton MD on 04/25/2025 19:39:27
--- NOTE | ~2025-04-25 | XR_ITS ---
CLINICAL HISTORY: OGT placement 1 view chest x-ray Comparison: CR/SR - XR CHEST 1V - 04/26/25 11:40 EDT Findings: Increasing patchy opacity in the right lung. Persistent left perihilar opacity and left base opacity obscuring the left hemidiaphragm. Suspect moderate left pleural effusion. The tip of the endotracheal tube is difficult to discern on this x-ray, but appears to be 1.2 cm above the jaqui. Normal size heart. No acute fracture. There is an enteric tube with tip in the mid stomach. IMPRESSION: 1. Enteric tube with tip in the mid stomach. 2. ETT tip difficult to visualize, but appears to be 1.2 cm above the jaqui. 3. Increasing opacity in the right lung and persistent opacity in the left lung. Differential includes pulmonary edema, infection or aspiration. This document has been electronically signed by: Zaire Person MD on 04/26/2025 23:08:12
--- NOTE | ~2025-04-25 | XR_ITS ---
EXAMINATION: XR PELVIS CLINICAL INFORMATION: 1 view, shortened LLE COMPARISON: None available. TECHNIQUE: AP view of the pelvis. FINDINGS: X-ray is underpenetrated due to body habitus. Stool and bowel gas obscure portions of the central and right hemipelvis. The left hip is poorly demonstrated due to external rotation. No gross deformity XR/XR pelvis 1-2V IMPRESSION: No gross deformity, limited x-ray, detailed above. Electronically signed by: Sheldon Carrasquillo MD 04/25/2025 04:35 PM EDT
--- NOTE | ~2025-04-25 | XR_ITS ---
EXAMINATION: XR CHEST CLINICAL INFORMATION: Sob COMPARISON: April 27, 2025. TECHNIQUE: Frontal view of the chest was obtained. FINDINGS: Pulmonary reticular nodular pattern. Opacity left lower hemithorax. No pneumothorax. Cardiomediastinal silhouette size is prominent, unchanged. The endotracheal tube and NG tube have been removed. Multilevel thoracic spondylosis. Patient's large body habitus/obesity. XR/XR chest 1V IMPRESSION: Concerning chronic interstitial lung disease with acute small airway inflammatory process versus multifocal pneumonia. Aspiration pneumonia, left lower lung lobe should be considered. Left-sided pleural effusion, moderate to large volume. Cardiomegaly versus pericardial effusion. Electronically signed by: Jorge Blancas MD 05/04/2025 08:34 AM EDT
--- NOTE | ~2025-04-25 | CT_ITS ---
CLINICAL HISTORY: Large L pl effusion, hypercapnic hypox resp failur CT chest without IV contrast. COMPARISON: XR chest dated 04/25/25 at 16:05 EDT FINDINGS: Markedly diminutive or absent thyroid. No supraclavicular or axillary lymphadenopathy. Cardiomegaly. Main pulmonary artery is enlarged measuring up to 3.3 cm. This can be associated with pulmonary hypertension. Mitral and aortic annular calcifications. Coronary artery calcifications present within the LAD, circumflex and RCA. No pericardial effusion. Endotracheal tube terminates 2.8 cm above the jaqui. Moderate left pleural effusion. Near-complete atelectatic collapse of the left upper and lower lobes with shift of the mediastinum to the left. Small right pleural effusion with overlying atelectasis. Patchy consolidation and ground-glass within the right upper lobe and to a lesser degree of the right lower lobe. Secretions present within the left mainstem bronchus with complete occlusion of the left mainstem bronchus and distal bronchi. Hepatic steatosis. Uyarsytb-cj-mitrvf multilevel spondylosis. No acute fracture or suspicious bone lesion. IMPRESSION: 1. Near-complete collapse of the left upper and lower lobes with shift of the mediastinum to the left likely secondary to secretions occluding the left mainstem bronchus. Moderate left pleural effusion. 2. Multifocal areas of ground-glass and consolidation within the right upper and lower lobes suggestive of a multifocal infectious or inflammatory process. 3. Small right pleural effusion. 4. Cardiomegaly with coronary artery atherosclerosis. Enlarged main pulmonary artery can be associated with pulmonary hypertension. Aortic annular and mitral annular calcifications. This document has been electronically signed by: Bhupinder Easton MD on 04/25/2025 17:58:29
--- NOTE | ~2025-04-25 | XR_ITS ---
EXAMINATION: XR CHEST CLINICAL INFORMATION: dyspnea/CHF/COPD COMPARISON: April 05, 2025 TECHNIQUE: Frontal view of the chest was obtained. FINDINGS: ET tube is in the midthoracic trachea. There is cardiomegaly. Patient is mildly rotated toward the left. There is shift of the mediastinum toward the left. There is opacity in the left mid and lower lung field There is a small amount of aerated lung in the left apex. The right lung is hyperexpanded. XR/XR chest 1V IMPRESSION: Suspected severe atelectasis involving the left lung with minimally aerated left upper lobe. Underlying pneumonia or pleural effusion is not ruled out. Cardiomegaly. ET tube is in the midthoracic trachea. Electronically signed by: Sheldon Carrasquillo MD 04/25/2025 04:38 PM EDT
--- NOTE | ~2025-04-25 | XR_ITS ---
EXAMINATION: XR CHEST 1 VIEW HISTORY: Hypoxia COMPARISON: Comparison is made with the prior examination dated 04/26/2025. FINDINGS: A single AP portable view of the chest performed at 7:13 AM is submitted. Endotracheal and orogastric tubes are unchanged in position. Again seen is prominence of the pulmonary vasculature, consistent with congestion. There is persistent opacification of the left lung base which may represent atelectasis, pneumonia, or pleural fluid. There is no pneumothorax. The heart is enlarged. The aorta is calcified. The bones are intact. XR/XR chest 1V IMPRESSION: 1. Lines and tubes unchanged in position. 2. Cardiomegaly and pulmonary vascular congestion. Left basilar opacity may represent atelectasis, pneumonia, or pleural fluid. Electronically signed by: Valeriano Garnett MD 04/27/2025 07:50 AM EDT
--- NOTE | ~2025-04-25 | US_ITS ---
EXAMINATION: US KIDNEY BILATERAL HISTORY: MARJORIE TECHNIQUE: Real-time grayscale ultrasound imaging of the kidneys was performed and images were reviewed. COMPARISON: Comparison is made with the prior examination dated 04/07/2025. FINDINGS: Right kidney: The right kidney measures 11.5 x 5.7 x 6.5 cm. Renal parenchymal echotexture and thickness are normal. Multiple cysts are seen, the largest of which is at the lower pole measuring 2.1 x 1.7 x 1.6 cm. There is no hydronephrosis or renal calculi. Left Kidney: The left kidney measures 10.6 x 7.5 x 5.4 cm. Renal parenchymal echotexture and thickness are normal. There are no masses. There is no hydronephrosis or renal calculi. US/US renal BI IMPRESSION: Right renal cysts measuring up to 2.1 cm. Otherwise unremarkable renal ultrasound. Electronically signed by: Valeriano Garnett MD 05/03/2025 11:40 AM EDT
[2025-04-25 14:37] LABS: Glucose, Whole Blood 342 mg/dL (60-115)
--- NOTE | 2025-04-25 14:40 | ED.SOB ---
HPI - SOB/Dyspnea General Chief Complaint: Dyspnea Stated Complaint: SOB X 2-3 DAYS PER EMS Time Seen by Provider: 04/25/25 14:34 History of Present Illness ED Provider: Ari Padilla MD HPI Narrative: [age] female arrived on CPAP by EMS history of COPD and CHF chronic [place]. Patient noncontributory to history due to clinical condition. EMS reported the patient was 80% on 2 L which is the baseline oxygen supplementation. Related Data Home Medications ?Medication ?Instructions ?Recorded ?Confirmed insulin glargine 100 unit/mL (3 25 unit subcut DAILY@1900 04/04/25 04/25/25 mL) subcutaneous pen (Basaglar KwikPen U-100 Insulin) albuterol sulfate 90 mcg/actuation 2 puff inhalation Q6H PRN 04/25/25 04/25/25 aerosol inhaler (Ventolin HFA) Shortness Of Breath Or Wheezing lorazepam 0.5 mg tablet (Ativan) 0.5 mg PO BID 04/25/25 04/25/25 lorazepam 0.5 mg tablet (Ativan) 1 mg PO Q6H PRN Anxiety 04/25/25 04/25/25 Previous Rx's ?Medication ?Instructions ?Recorded Lift chair #1 ea 01/19/25 amlodipine 5 mg tablet 5 mg PO DAILY #90 tabs 03/15/25 ammonium lactate 12 % lotion 1 appl topical BID #400 grams 03/15/25 atorvastatin 40 mg tablet 40 mg PO BEDTIME 90 days #90 tabs 03/15/25 blood sugar diagnostic (Accu-Chek #100 ea 03/15/25 Odilia Plus test strips) blood sugar diagnostic (Accu-Chek #100 ea 03/15/25 Guide test strips) empagliflozin 10 mg tablet 10 mg PO DAILY #90 tabs 03/15/25 (Jardiance) gemfibrozil 600 mg tablet 600 mg PO BID #180 tabs 03/15/25 insulin syringe-needle U-100 0.5 #100 ea 03/15/25 mL 31 gauge x 5/16 lancets (Accu-Chek Softclix #100 ea 03/15/25 Lancets) levothyroxine 200 mcg tablet 200 mcg PO DAILY@0600 90 days #90 03/15/25 tabs pen needle, diabetic 31 gauge x #100 ea 03/15/2503/10 (1st Tier Unifine Pentips) sodium bicarbonate 650 mg tablet 650 mg PO DAILY #90 tabs 03/15/25 sodium zirconium cyclosilicate 10 10 g PO DAILY #90 ea 03/15/25 gram oral powder packet (Lokelma) compression stockings #1 ea 03/29/25 benzonatate 100 mg capsule 100 mg PO TID PRN Cough #1 cap 04/10/25 ferrous sulfate 324 mg (65 mg 324 mg PO DAILY #1 tab 04/10/25 iron) tablet,delayed release furosemide 40 mg tablet 40 mg PO BID@0900,1800 #1 tab 04/10/25 nystatin 100,000 unit/gram topical 1 appl topical BID #1 g 04/10/25 powder (Nyamyc) sertraline 50 mg tablet 75 mg (1.5 x 50 mg) PO DAILY #1 tab 04/10/25 Allergies Allergy/AdvReac Type Severity Reaction Status Date / Time ibuprofen (From Motrin) Allergy Unknown swelling Verified 04/25/25 14:39 codeine (CODEINE) AdvReac Unknown SLEEPY Verified 04/03/25 10:32 [facility] Past Medical History Medical History Generalized anxiety disorder COPD (chronic obstructive pulmonary disease) CHF (congestive heart failure) Anemia Herpes zoster MARJORIE (acute kidney injury) Left bundle branch block Morbid obesity Chronic pain syndrome Anxiety Pernicious anemia CHF (congestive heart failure) Hypothyroidism Essential hypertension Diabetes mellitus Pure hypercholesterolemia Surgical History H/O left knee surgery Deficient knowledge of leg surgery History of tonsillectomy and adenoidectomy History of appendectomy Family History Family History Father CVD (cardiovascular disease) Mother No problems noted. Family/Other FH: mental illness Social History Social History Household Members: Family Household Members Other:: son Housing: House Do you presently have visiting nurse or other home services: Yes (vna) Alcohol intake: unknown Patient Tobacco Use Status: Former Tobacco user Tobacco use type: Cigarette e-Cigarette/Vaping Use: Never Used Second Hand Smoke Exposure: No Advance Directives: Yes Advance Directives on File: Yes Advance Directives Date on File: 06/24/24 service: No Current occupational status: disabled Cognitive needs: Yes (Wheelchair, Lift chair) Hearing needs: No Vision needs: Yes (Glasses) Physical Exam Vital Signs: Vital Signs: Last Vital Signs Temp 97.0 F 04/25/25 17:52 Pulse 65 04/25/25 17:52 Resp 24 H 04/25/25 17:52 BP 136/85 04/25/25 17:52 Pulse Ox 89 L 04/25/25 17:52 O2 Del Method Mechanical Ventil ation 04/25/25 17:52 FiO2 50 04/25/25 19:03 BMI result Body Mass Index 42.7 Const: Other: EXAM: Gen: Lethargic, in severe respiratory distress diaphoretic. Difficult to arouse only opens her eyes with loud verbal stimulation. Currently on BiPAP Head: Atraumatic Eyes: Anicteric, Normal conjunctiva. ENT: Moist mucosa, no pallor. ? Neck: Supple. Skin: ?Chronic appearing scaling bilateral lower extremities. No obvious open wounds there is a dressing over the the proximal pretibial area in the left side Respiratory: Tachypnea with bilateral rhonchi. Crackles the bases. Decreased breath sounds left side. Cardiovascular: Regular rate and rhythm. No murmurs or rub. Well perfused periphery, warm extremities. No edema. ? Abdominal: Obese without tenderness Soft, no objective distension. No palpable masses or obvious organomegaly. ?No guarding, no rebound tenderness or other peritoneal findings. Psych: Calm. Cooperative. MSK: No grossly visible deformity. Slightly shortened appearing left limb. Well-perfused feet Vital signs: See flowsheet Medications Administered Generic Name Dose Route Start Last Admin Trade Name Freq PRN Reason Stop Dose Admin Propofol 1,000 mg in 100 mls @ 0 mls/hr 04/25/25 16:15 04/25/25 19:06 Diprivan IVCONT 40 mcg/kg/min .Q0M GEO 26.26 mls/hr Protocol Titration Per Protocol Discontinued Medications Generic Name Dose Route Start Last Admin Trade Name Freq PRN Reason Stop Dose Admin Albuterol/Ipratropium 3 ml 04/25/25 14:38 04/25/25 14:50 Albuterol/Iprat 2.5/0.5mg 3 Ml Ampul.Neb INHALE 04/25/25 14:39 3 ml ONCE ONE Administration Ceftriaxone Sodium 2 gm 04/25/25 15:59 04/25/25 16:42 Ceftriaxone Sodium 2 Gm Vial IVPUSH 04/25/25 16:00 2 gm ONCE ONE Administration Diazepam 10 mg 04/25/25 15:53 04/25/25 15:41 Diazepam 10 Mg/2 Ml Cartridge IVPUSH 04/25/25 15:54 10 mg STAT STA Administration Etomidate 20 mg 04/25/25 15:53 04/25/25 15:38 Etomidate 20 Mg/10 Ml Vial IVPUSH 04/25/25 15:54 20 mg ONCE ONE Administration Sodium Chloride 1,000 mls @ 999 mls/hr 04/25/25 16:00 04/25/25 16:15 Ns IV 04/25/25 17:00 Infused .Q1H1M GEO Infusion Vancomycin HCl 2,000 mg in 500 mls @ 250 mls/hr 04/25/25 15:59 04/25/25 19:07 Vancomycin/Ns IV 04/25/25 17:58 Infused ONCE ONE Infusion Rocuronium [place] 100 mg 04/25/25 15:53 04/25/25 15:39 Rocuronium [place] 50 Mg/5 Ml Vial IVPUSH 04/25/25 15:54 100 mg ONCE ONE Administration Medical Decision Making Medical Decision Making [facility] Narrative: 79-year-old female with COPD CHF looks like HFpEF on most recent echo with very large left pleural effusion respiratory distress based on CPAP by EMS, BiPAP on arrival here. Essentially obtunded. Given the significant distress and bedside ultrasound revealing quite massive left pleural effusion therapeutic emergent thoracentesis was performed I was only able to get about 200 cc serosanguineous fluid. Shortly after this ABG resulted showing profound respiratory acidosis and decision made to intubate. Patient was obtunded unable to consent implied consent and no previous advanced directives were documented in our system. importantly the thoracentesis laboratory order set gallegos the fluids as peritoneal. The fluids sent to the lab today were from the left thoracentesis procedure, pleural effusion Differential Diagnosis COPD, pneumonia, CHF, pleural effusion, pericardial effusion, decompensated systolic or diastolic heart failure Consult Healthcare Provider Discussion with ferryboat operator at the bedside Lab Data [facility] Lab Attestation statement: I reviewed the patient's lab results. Hyperkalemia, hyperglycemia without DKA, acute on chronic kidney disease with elevated BUN. Acidemia likely multifactorial respiratory as well as uremic. Hyperkalemia could be secondary to acidosis. 04/25/25 14:48 04/25/25 14:48 Labs: Lab Results 04/25/25 04/25/25 04/25/25 Range/Units 14:34 14:48 15:03 WBC 12.1 H (4.8-10.8) X10*3/uL RBC 2.89 L (4.20-5.50) X10*6/uL Hgb 8.2 L (12.0-16.0) g/dl Hct 28.5 L (37.0-47.0) % MCV 98.6 H (80.0-98.0) fL MCH 28.4 (27.0-33.0) pg MCHC 28.8 L (31.0-35.0) g/dl RDW 15.9 (11.0-16.0) % Plt Count 305 (160-400) X10*3/uL MPV 9.0 L (9.4-12.3) fL Immature Gran % (Auto) 1.1 H (0.0-0.4) % Neut % (Auto) 95.3 H (45-73) % Lymph % (Auto) 0.8 L (20-40) % [place] % (Auto) 2.5 (2-11) % Eos % (Auto) 0.1 (0-4) % Baso % (Auto) 0.2 (0-2) % Lymph # (Auto) 0.1 L (1.2-4.9) X10*3/uL [place] # (Auto) 0.3 (0.1-1.2) X10*3/uL Eos # (Auto) 0.0 (0.0-0.4) X10*3/uL Baso # (Auto) 0.0 (0.0-0.2) X10*3/uL Abs Immat Gran (auto) 0.13 H (0.00-0.03) X10*3/uL Absolute Neuts (auto) 11.5 H (2.0-8.3) x10*3/uL Absolute Nucleated RBC 0.000 (0.0-0.012) X10*3/uL Nucleated RBC % (auto) 0.0 (0.0-0.2) /100WBC O2 Saturation 94.0 % ABG pH at Pt Temp 7.21 L (7.35-7.45) ABG pCO2 at Pt Temp 95 H* (32-45) mmHg ABG pO2 at Pt Temp 83 (83-108) mmHg ABG HCO3 39 H (22-26) mmol/L ABG Base Excess (Actual) 8.5 mmol/L Sodium 138 (135-145) mmol/L Potassium 5.4 H D (3.3-5.1) mmol/L Chloride 92 L (96-108) mmol/L Carbon Dioxide 32 H (22-29) mmol/L Anion Gap 19 (12-20) BUN 89 H (9-16) mg/dL Creatinine 2.23 H (0.5-1.4) mg/dL Estim Creat Clear Calc 25.1 Estimated GFR 21 POC Glucose 342 H (60-115) mg/dL Random Glucose 401 H* (60-115) mg/dL Lactic Acid (0.5-2.0) mmol/L Calcium 8.1 L (8.4-10.2) mg/dL Total Bilirubin 0.2 (0.0-1.0) mg/dL AST 31 (5-31) U/L ALT 7 (0-31) U/L Alkaline Phosphatase 96 (39-117) U/L Lactate Dehydrogenase 370 H (122-220) U/L Troponin I High Sens 22.9 H (<3.5-17.0) ng/L B-Natriuretic Peptide 953 H (<100) pg/mL Total Protein 6.9 (6.5-8.0) g/dL Albumin 3.2 L (3.5-5.0) g/dL TSH 0.70 (0.32-4.0) uIU/mL Peritoneal WBC X10*3/uL Peritoneal RBC X10*6/uL Periton Neutrophils % Periton Lymphocytes % Peritoneal Monocytes % Peritoneal Other Cells % 04/25/25 Range/Units 16:41 WBC (4.8-10.8) X10*3/uL RBC (4.20-5.50) X10*6/uL Hgb (12.0-16.0) g/dl Hct (37.0-47.0) % MCV (80.0-98.0) fL MCH (27.0-33.0) pg MCHC (31.0-35.0) g/dl RDW (11.0-16.0) % Plt Count (160-400) X10*3/uL MPV (9.4-12.3) fL Immature Gran % (Auto) (0.0-0.4) % Neut % (Auto) (45-73) % Lymph % (Auto) (20-40) % [place] % (Auto) (2-11) % Eos % (Auto) (0-4) % Baso % (Auto) (0-2) % Lymph # (Auto) (1.2-4.9) X10*3/uL [place] # (Auto) (0.1-1.2) X10*3/uL Eos # (Auto) (0.0-0.4) X10*3/uL Baso # (Auto) (0.0-0.2) X10*3/uL Abs Immat Gran (auto) (0.00-0.03) X10*3/uL Absolute Neuts (auto) (2.0-8.3) x10*3/uL Absolute Nucleated RBC (0.0-0.012) X10*3/uL Nucleated RBC % (auto) (0.0-0.2) /100WBC O2 Saturation % ABG pH at Pt Temp (7.35-7.45) ABG pCO2 at Pt Temp (32-45) mmHg ABG pO2 at Pt Temp (83-108) mmHg ABG HCO3 (22-26) mmol/L ABG Base Excess (Actual) mmol/L Sodium (135-145) mmol/L Potassium (3.3-5.1) mmol/L Chloride (96-108) mmol/L Carbon Dioxide (22-29) mmol/L Anion Gap (12-20) BUN (9-16) mg/dL Creatinine (0.5-1.4) mg/dL Estim Creat Clear Calc Estimated GFR POC Glucose (60-115) mg/dL Random Glucose (60-115) mg/dL Lactic Acid 1.2 (0.5-2.0) mmol/L Calcium (8.4-10.2) mg/dL Total Bilirubin (0.0-1.0) mg/dL AST (5-31) U/L ALT (0-31) U/L Alkaline Phosphatase (39-117) U/L Lactate Dehydrogenase Cancelled (122-220) U/L Troponin I High Sens (<3.5-17.0) ng/L B-Natriuretic Peptide (<100) pg/mL Total Protein Cancelled (6.5-8.0) g/dL Albumin (3.5-5.0) g/dL TSH (0.32-4.0) uIU/mL Peritoneal WBC 0.246 X10*3/uL Peritoneal RBC 0.014 X10*6/uL Periton Neutrophils 27 % Periton Lymphocytes 30 % Peritoneal Monocytes 14 % Peritoneal Other Cells 29 % ABG Data Attestation ABG: I personally reviewed and interpreted this ABG as follows: (Severe CO2 retention with hypercapnic, respiratory acidosis) Independent Interpretation I performed an independent interpretation of an: Rhythm Strip (Sinus rhythm, sinus tachycardia. Bundle-branch block) Radiology Impression Discussion of test interpretation with radiology: I have reviewed the radiologist's reading. Independent Historian Clinical information obtained from an independent historian. History obtained from or confirmed by: EMS Procedures Procedure Narrative Procedure Narrative: EMERGENCY ULTRASOUND INTERPRETATION-Point of Care Thoracic: IMPRESSION: NO FOCAL CONSILDATION, NO SUGGESTION OF PATHOLOGIC B LINES, OR EFFUSION. NO SUGGESTION OF PNEUMOTHORAX ON VISUALIZED PORTIONS OF THE CHEST Indication: Dyspnea Findings: Right Pleural 2ICS: ?POSITIVE SLIDING, No B Lines or Consolidation Right PLAPS: ?Minimal effusion Left Pleural 2ICS: POSITIVE SLIDING, consolidated versus atelectatic lung tissue floating Left PLAPS: ?Large effusion without septations to about the level of the mid scapula. Simple appearing Performed by: Ari Padilla MD ? Images were stored CPT: 08311,[id number]] ? PROCEDURE NOTE Procedure: Thoracentesis Performed by: [Ari Padilla MD Indication: Large pleural effusion left side with respiratory distress [place] Protocol: a time out was performed and the correct patient and site were verified ? Procedure: With the patient in a sitting position, leaning forward, appropriate landmarks were identified. The skin was prepped and draped in sterile fashion. 3-5 mL of Local anesthetic was infiltrated in the area of the intercostal space on the left posterolateral chest An angiocatheter was then introduced through the intercostal space over the superior edge of the rib and the pleural space was entered. Fluid was aspirated and sent to the lab for appropriate studies. Ultrasound guidance was utilized. ? A post-thoracentesis chest x-ray we will be] ordered and reviewed. Patient was intubated just after the procedure ? FINDINGS: Serosanguineous fluid PLEUROMETRICS: [N/A] ? Post Procedure Diagnosis: [same as indication] Complications: [none] Estimated Blood Loss:? [none] Specimens Removed: 250 cc of serosanguineous fluid Prosthetic devices/implants: [no] Meat Scrubber(s): [none] __ EMERGENCY ULTRASOUND INTERPRETATION-Limited Echocardiography [This study was ordered, performed, and interpreted by myself. The study reveals: Impression: Limited for evaluation of LV function, NO RV DYSFUNCTION, trace PERICARDIAL EFFUSION] [Emergent Cardiac for Indication: Views Used: PLAX, PSSA, Pericardial Effusion/Tamponade Findings: Trace RV Dilation (> LV diam in 4ch apical): NONE Global LV Fxn: Limited evaluation Calcified mitral valve disease noted incidentally Performed by: MD Valerie Images were stored CPT:98590] Intubation Intubation Type:: Endotracheal Tube Insertion Intubation Date:: 04/25/25 Intubation Time:: 15:40 Time out performed: Yes sedative: Etomidate paralytic: Rocuronium Laryngoscope: fiber optic video scope ET Tube Size: 7.5 ET Tube Uncuffed: Yes Tube Placement Confirmation: visualized tube passing through cords Patient Tolerated Procedure: well and no complications Intubation Complications: none Critical Care Time Critical Care Time Critical Care Time: Yes Total Critical Care Time: 80 Attestation: ED Critical Care: Authorized and Performed by: Ari Padilla MD Total critical care time: Approximately 80 Due to a high probability of clinically significant, life threatening deterioration, the patient required my highest level of preparedness to intervene emergently and I personally spent this critical care time directly and personally managing the patient. This critical care time included obtaining a history; examining the patient; pulse oximetry; ordering and review of studies; arranging urgent treatment with development of a management plan; evaluation of patient's response to treatment; frequent reassessment; and, discussions with other providers. This critical care time was performed to assess and manage the high probability of imminent, life-threatening deterioration that could result in multi-organ failure. It was exclusive of separately billable procedures and treating other patients and teaching time. Discharge Plan Discharge Clinical Impression: Hypercapnic respiratory failure Patient Disposition: Admitted As Inpatient Interventions: Admission Worksheet (ED) Last Done: 04/25/25 18:49 Discharge Date/Time: 04/25/25 18:51
--- NOTE | 2025-04-25 14:41 | PC.RT ---
Pt came in on CPAP via EMS. L/S rhonchi bilateral, pt dyspneic and hypoxic SATs 79% on RA. Placed on bipap per RT as documented, will titrate settings as tolerated. aware.
[2025-04-25] MEDS: Albuterol/Iprat 2.5/0.5MG 3 ML AMPUL.NEB INHALE (14:50)
[2025-04-25 14:54] LABS: Hematocrit 28.5 % (37.0-47.0); Hemoglobin 8.2 g/dl (12.0-16.0); Imm Gran Abs Auto 0.13 X10*3/uL (0.00-0.03); Imm Gran Pct Auto 1.1 % (0.0-0.4); Lymphocytes Absolute Auto 0.1 X10*3/uL (1.2-4.9); MANUAL DIFF FLAG SCAN; Mean Corpuscular HGB Conc 28.8 g/dl (31.0-35.0); Mean Corpuscular Hemoglobin 28.4 pg (27.0-33.0); Mean Corpuscular Volume 98.6 fL (80.0-98.0); NRBC Abs Auto 0.000 X10*3/uL (0.0-0.012); NRBC Pct Auto 0.0 /100WBC (0.0-0.2); Platelet Count 305 X10*3/uL (160-400); Red Blood Count 2.89 X10*6/uL (4.20-5.50); SCAN SMEAR FLAG 1; White Blood Count 12.1 X10*3/uL (4.8-10.8)
[2025-04-25 15:07] LABS: ABG HCO3 39 mmol/L (22-26); ABG O2 % Saturation 94.0 %
[2025-04-25 15:17] LABS: B Type Natriuretic Peptide 953 pg/mL (<100)
[2025-04-25 15:20] LABS: Troponin-I High Sensitivity 22.9 ng/L (<3.5-17.0)
[2025-04-25 15:31] LABS: Alanine Aminotransferase 7 U/L (0-31); Albumin Level 3.2 g/dL (3.5-5.0); Alkaline Phosphatase 96 U/L (39-117); Anion Gap 19 (12-20); Aspartate Amino Transferase 31 U/L (5-31); Blood Urea Nitrogen 89 mg/dL (9-16); Calcium 8.1 mg/dL (8.4-10.2); Carbon Dioxide 32 mmol/L (22-29); Chloride 92 mmol/L (96-108); Creatinine Clr Calc Pharmacy 25.1; Estimated Glomerular Filt Rate 21; Potassium 5.4 mmol/L (3.3-5.1); Sodium 138 mmol/L (135-145); Total Protein 6.9 g/dL (6.5-8.0)
[2025-04-25 15:36] LABS: Thyroid Stimulating Hormone 0.70 uIU/mL (0.32-4.0)
[2025-04-25] MEDS: Etomidate 20 MG/10 ML VIAL IVPUSH (15:38)
[2025-04-25] MEDS: diazePAM 10 MG/2 ML CARTRIDGE IVPUSH (15:41)
--- NOTE | 2025-04-25 15:53 | PC.RT ---
ABG drawn and showed respiratory acidosis on bipap. MD at bedside performing thoracentesis for pleural effusions noted with ultrasound. No significant change in volumes on bipap during or after procedure. Pt was control intubated for airway protection by АНДРЕЙ w/ at bedside on first attempt. ETT 7.5 25cm@lips. ETT confirmed w/ colormetric CO2, bilateral chest rise, condensation, and pending x-ray. Pt on mechanical ventilation as documented, cyndi well. Will continue to monitor.
--- NOTE | 2025-04-25 16:00 | PC.NURSE ---
pt comes in with EMS from SNF for SOB x2-3 days. lethargic and not engaging on arrival. yes/no answers only, moans in discomfort. Comes in on CPAP and switched to BiPAP with RT> MD at bedside preforms bedside US and bedside thoracentesis. 300ml fruit punch colored fluid tapped from left side. Decision made to intubate pt. Medicated per DEC. ETT 7.5, 25cm at lip. placement confirmed with pos color change. XR pending. bilat hand 20g IV pt hypotensive 97/34. NS bolus infusing. MD aware. plan of care ongoing.
--- NOTE | 2025-04-25 16:06 | P.HPCC_ITS ---
History of Present Illness Date of Service: 04/25/25 Attending physician on admission: Xander Painter Chief Complaint: Acute respiratory distress 79-year-old female morbidly obese type 2 diabetic insulin-dependent with hypothyroidism chronic peripheral edema with associated overlying dermatitis and possible leg wound this potential source of infection along with chronic indwelling Moyer and a recent Enterococcus faecalis urinary tract infection brought in respiratory distress noted to be hypoxemic was on CPAP and then upgraded to BiPAP but distress remained a left thoracentesis was performed just a slightly serous sanguinous looking appearance to it grossly studies are pending and because of ongoing distress pH of 7.24 with pCO2 of 95 blood gas consistent with acute on chronic hypercarbic and hypoxic respiratory failure with secondary metabolic alkalosis patient was then intubated without complication CAT scan is pending and because the left leg is externally rotated and foreshortened we will get a hip x-ray in case there was a fall with trauma Also underlying history of COPD as we could tell along with CHF and I have not yet done a bedside echo Just prior to intubation she was hypotensive and blood pressure came up and the intubation was performed using 20 mg of etomidate and I believe rocuronium and again without complication Subsequent echocardiogram demonstrated normal LV and RV function but definite severe pulmonary hypertension probably in the 70+/- range Review of Systems 2 Review of Systems: Yes Unobtainable due to mental status PMFSH Past Medical History Medical History Generalized anxiety disorder COPD (chronic obstructive pulmonary disease) CHF (congestive heart failure) Anemia Herpes zoster MARJORIE (acute kidney injury) Left bundle branch block Morbid obesity Chronic pain syndrome Anxiety Pernicious anemia CHF (congestive heart failure) Hypothyroidism Essential hypertension Diabetes mellitus Pure hypercholesterolemia Family History Family History Father CVD (cardiovascular disease) Mother No problems noted. Family/Other FH: mental illness Surgical History Surgical History H/O left knee surgery Deficient knowledge of leg surgery History of tonsillectomy and adenoidectomy History of appendectomy Social History Social History Household Members: Other Household Members Other:: son Housing: Long Term Do you presently have visiting nurse or other home services: Yes (vna) Alcohol intake: unknown Patient Tobacco Use Status: Former Tobacco user Tobacco use type: Cigarette e-Cigarette/Vaping Use: Never Used Second Hand Smoke Exposure: No Advance Directives: Yes Advance Directives on File: Yes Advance Directives Date on File: 06/24/24 Patient : No service: No Current occupational status: disabled Cognitive needs: Yes (Wheelchair, Lift chair) Hearing needs: No Vision needs: Yes (Glasses) Meds Allergies Allergy/AdvReac Type Severity Reaction Status Date / Time ibuprofen (From Motrin) Allergy Unknown swelling Verified 04/25/25 14:39 codeine (CODEINE) AdvReac Unknown SLEEPY Verified 04/03/25 10:32 Active Medications: Current Medications Sodium Chloride (Ns) 1,000 mls @ 999 mls/hr IV .Q1H1M GEO Stop: 04/25/25 17:00 Last Admin: 04/25/25 15:30 Dose: 999 mls/hr Vancomycin HCl (Vancomycin/Ns) 2,000 mg in 500 mls @ 250 mls/hr IV ONCE ONE Stop: 04/25/25 17:58 Home Medications ?Medication ?Instructions ?Recorded ?Confirmed ?Last Taken ?Type insulin glargine 100 unit/mL (3 25 unit subcut DAILY@1 900 04/04/25 04/25/25 04/02/25 History mL) subcutaneous pen (Basaglar KwikPen U-100 Insulin) albuterol sulfate 90 mcg/actuation 2 puff inhalation Q 6H PRN 04/25/25 04/25/25 Unknown History aerosol inhaler (Ventolin HFA) Shortness Of Breath Or Wheezing lorazepam 0.5 mg tablet (Ativan) 0.5 mg PO BID 5 04/25/25 Unknown History lorazepam 0.5 mg tablet (Ativan) 1 mg PO Q6H PRN Anxie ty 04/25/25 04/25/25 Unknown History Physical Exam 2 Vital Signs: Vital Signs: Last Vital Signs Temp 97.7 F 04/25/25 14:29 Pulse 55 04/25/25 15:45 Resp 16 04/25/25 15:45 BP 97/34 L 04/25/25 15:45 Pulse Ox 97 04/25/25 15:45 O2 Del Method Mechanical Ventil ation 04/25/25 15:45 FiO2 50 04/25/25 15:50 BMI result Body Mass Index 42.7 Initially very lethargic and was on BiPAP and then we had an uneventful intubation but again the 1st pCO2 was 95 so clearly this was an acute on chronic hypercarbic respiratory failure Skin is just she had bilateral stasis dermatitis with extensive keratosis and there is a wound but it was it was dressed and it looked like a recent dressing and this on the left lower extremity Abdomen obese but it was soft with no hepatomegaly no splenomegaly Cardiac exam by echo Diminished left breath sounds with dull percussion consistent with effusion Results Labs 04/26/25 06:39 04/26/25 05:19 Labs: Laboratory Results - last 24 hr 04/25/25 04/25/25 04/25/25 14:34 14:48 15:03 MCV 98.6 H MCH 28.4 MCHC 28.8 L RDW 15.9 Plt Count 305 MPV 9.0 L Immature Gran % (Auto) 1.1 H Neut % (Auto) 95.3 H Lymph % (Auto) 0.8 L [place] % (Auto) 2.5 Eos % (Auto) 0.1 Baso % (Auto) 0.2 Lymph # (Auto) 0.1 L [place] # (Auto) 0.3 Eos # (Auto) 0.0 Baso # (Auto) 0.0 Abs Immat Gran (auto) 0.13 H Absolute Neuts (auto) 11.5 H Absolute Nucleated RBC 0.000 Nucleated RBC % (auto) 0.0 O2 Saturation 94.0 ABG pH at Pt Temp 7.21 L ABG pCO2 at Pt Temp 95 H* ABG pO2 at Pt Temp 83 ABG HCO3 39 H ABG Base Excess (Actual) 8.5 Anion Gap 19 Estim Creat Clear Calc 25.1 Estimated GFR 21 POC Glucose 342 H Random Glucose 401 H* Calcium 8.1 L Total Bilirubin 0.2 AST 31 ALT 7 Alkaline Phosphatase 96 Troponin I High Sens 22.9 H B-Natriuretic Peptide 953 H Total Protein 6.9 Albumin 3.2 L TSH 0.70 Assessment and Plan (1) Generalized anxiety disorder: Status: Acute (2) Essential hypertension: Status: Acute (3) Pulmonary hypertension: Status: Acute (4) Diabetes mellitus: Qualifiers: Diabetes mellitus type: type 2 Diabetes mellitus public welfare worker insulin use: without public welfare worker use Diabetes mellitus complication status: without complication Qualified Code(s): E11.9 - Type 2 diabetes mellitus without complications Status: Acute (5) Hypothyroidism: Qualifiers: Hypothyroidism type: unspecified Qualified Code(s): E03.9 - Hypothyroidism, unspecified Status: Acute (6) Urinary retention: Status: Acute (7) Acute hyperkalemia: Status: Acute (8) Hematuria: Status: Acute (9) CKD (chronic kidney disease): Qualifiers: Chronic kidney disease stage: unspecified stage Qualified Code(s): N 18.9 - Chronic kidney disease, unspecified Status: Acute (10) Renal insufficiency: Status: Acute (11) Bilateral hydronephrosis: Status: Acute (12) Gram-negative bacteremia: Status: Acute (13) Skin ulcer of sacral region: Qualifiers: Non-pressure ulcer stage: unspecified non-pressure ulcer stage Q ualified Code(s): L98.429 - Non-pressure chronic ulcer of back with unspecified severity Status: Acute (14) Open wound: Status: Acute (15) Chronic pain syndrome: Status: Acute (16) Lumbar degenerative disc disease: Status: Acute (17) COPD (chronic obstructive pulmonary disease): Qualifiers: COPD type: emphysema Emphysema type: centrilobular Qualified Code(s): J43.2 - Centrilobular emphysema Status: Acute (18) Hypercapnic respiratory failure: Status: Acute (19) Acute on chronic respiratory failure: Status: Acute (20) COPD exacerbation: Status: Acute (21) Acute on chronic respiratory failure with hypoxia and hypercapnia: Status: Acute (22) HK (hyperkeratosis): Status: Acute (23) Indwelling Moyer catheter present: Status: Acute (24) Altered mental status: Status: Acute (25) Urinary tract infection associated with catheterization of urinary tract: Status: Acute (26) Pleural effusion associated with pulmonary infection: Status: Acute (27) Cor pulmonale: Status: Acute Plan At this point we are going to start pulmonary treatments and extensive pulmonary toileting which has already been productive an initial Gram stain already showing Gram-negative rods with 4+ polys and by history with her chronic Moyer catheter she had an enterococcal infection so that culture is pending as well and we are going to cover her with vancomycin and piperacillin and thus far the pleural fluid does not look like it is a empyema but possibly a parapneumonic effusion because I think it is going to be exudative Total time managing care of this patient today: 45 minutes.
--- NOTE | 2025-04-25 16:46 | PC.NURSE ---
1st set of cultures drawn, ABX infusing after. 2nd set pending.
[2025-04-25] MEDS: vancomycin/NS 2,000 MG/500 ML PLAST..BAG 250 MG IV (16:52)
[2025-04-25 16:55] LABS: MN% 75.9 %; PMN% 24.1 %; WBC Peritoneal Fluid 0.246 X10*3/uL
[2025-04-25 17:21] LABS: BF Shift QC OK YES; Lymphocyte Peritoneal Fl 30 %; Monocytes Peritoneal Fl 14 %; Neutrophils Peritoneal Fluid 27 %; Other Peritioneal Fl 29 %
--- NOTE | 2025-04-25 17:38 | PC.NURSE ---
pt has been maintaining BP with map > 65 since starting propofol. aware and holding norepi for now
[2025-04-25 17:52] LABS: ABG Refer to POC result
[2025-04-25 18:41] LABS: VBG HCO3 30 mmol/L (22-26); VBG O2 % Saturation 100.0 %
[2025-04-25 18:42] LABS: Venous Blood Gas Refer to POC result
--- NOTE | 2025-04-25 19:00 | PHA.MEDREC ---
Addendum entered by Darrin Franco [facility] 04/25/25 19:11: med rec reviewed Original Note: Pharmacy Consult ? Medication Reconciliation Pharmacy has completed the medication reconciliation. Went to speak with pt and she was not able to answer any questions at this time with me. I tried calling pt son but was not successful and had to leave voicemail. Pt just admitted with us 03/31-04/10; I utilized DC packet from then to confirm what I could now and will follow up if son calls back.
--- NOTE | 2025-04-25 19:11 | ECG_ITS ---
Test Reason : rhythm check Blood Pressure : */* mmHG Vent. Rate : 63 BPM Atrial Rate : 63 BPM P-R Int : 200 ms QRS Dur : 128 ms QT Int : 456 ms P-R-T Axes : 72 -30 70 degrees QTcB Int : 466 ms Normal sinus rhythm Left axis deviation Non-specific intra-ventricular conduction block Minimal voltage criteria for LVH, may be normal variant ( [place] product ) Abnormal ECG When compared with ECG of 03-Apr-2025 12:43, Nonspecific T wave abnormality has replaced inverted T waves in Lateral leads Referred By: Ari Padilla Electronically Signed By: BECKIE GARRETT MD
[2025-04-25 19:28] LABS: Glucose, Whole Blood 362 mg/dL (60-115)
[2025-04-25 20:15] LABS: Hematocrit 27.1 % (37.0-47.0); Hemoglobin 8.1 g/dl (12.0-16.0); Imm Gran Abs Auto 0.09 X10*3/uL (0.00-0.03); Imm Gran Pct Auto 1.1 % (0.0-0.4); Lymphocytes Absolute Auto 0.2 X10*3/uL (1.2-4.9); MANUAL DIFF FLAG SCAN; Mean Corpuscular HGB Conc 29.9 g/dl (31.0-35.0); Mean Corpuscular Hemoglobin 28.6 pg (27.0-33.0); Mean Corpuscular Volume 95.8 fL (80.0-98.0); NRBC Abs Auto 0.000 X10*3/uL (0.0-0.012); NRBC Pct Auto 0.0 /100WBC (0.0-0.2); Platelet Count 313 X10*3/uL (160-400); Red Blood Count 2.83 X10*6/uL (4.20-5.50); SCAN SMEAR FLAG 1; White Blood Count 8.6 X10*3/uL (4.8-10.8)
[2025-04-25] MEDS: Chlorhexidine Gluc Oral Rinse 15 ML MOUTHWASH BUCCAL (20:21)
[2025-04-25 20:38] LABS: Albumin Level 3.1 g/dL (3.5-5.0); Anion Gap 21 (12-20); Blood Urea Nitrogen 87 mg/dL (9-16); Calcium 7.4 mg/dL (8.4-10.2); Carbon Dioxide 30 mmol/L (22-29); Chloride 95 mmol/L (96-108); Creatinine Clr Calc Pharmacy 24.6; Estimated Glomerular Filt Rate 23; Magnesium 2.4 mg/dL (1.6-2.6); Potassium 4.6 mmol/L (3.3-5.1); Sodium 141 mmol/L (135-145)
[2025-04-25] MEDS: Albumin Human 25 % 100 ML IV (21:52)
[2025-04-25] MEDS: Albuterol Sulfate (0.083%) 2.5 MG/3 ML VIAL.NEB INHALE (21:59)
[2025-04-25 22:06] LABS: Appearance Urine Cloudy; Glucose Urine UA >=1000 mg/dL (Negative); PH 6.0 (5.0-9.0); Specific Gravity - Urine 1.010 (1.005-1.025); UMIC TRIGGER UACC YES
[2025-04-25 22:14] LABS: UACC Culture Trigger YES
[2025-04-25 22:28] LABS: Cannabinoid Screen Urine Not Detected (Not Detect)
[2025-04-25] MEDS: Calcium Gluconate/NaCl,Iso-Osm 1 GM/50 ML PLAST..BAG IV (23:04)
[2025-04-26] VITALS (29 sets, daily range): BP systolic 90–135; BP diastolic 32–63; PULSE 43–63; RESP 14–20; TEMP 35–36.8; O2SAT 6–99; BMI 37.8
[2025-04-26 00:20] LABS: Glucose, Whole Blood 262 mg/dL (60-115)
[2025-04-26] MEDS: Albumin Human 25 % 100 ML IV (03:23)
[2025-04-26 05:20] LABS: VBG HCO3 35 mmol/L (22-26); VBG O2 % Saturation 99.0 %
[2025-04-26 05:33] LABS: VBG HCO3 27 mmol/L (22-26)
[2025-04-26 05:37] LABS: MANUAL DIFF FLAG NO
[2025-04-26 05:45] LABS: Hematocrit 23.8 % (37.0-47.0); Imm Gran Abs Auto 0.06 X10*3/uL (0.00-0.03); Imm Gran Pct Auto 1.0 % (0.0-0.4); Lymphocytes Absolute Auto 0.3 X10*3/uL (1.2-4.9); Mean Corpuscular HGB Conc 29.4 g/dl (31.0-35.0); Mean Corpuscular Hemoglobin 28.0 pg (27.0-33.0); Mean Corpuscular Volume 95.2 fL (80.0-98.0); NRBC Abs Auto 0.020 X10*3/uL (0.0-0.012); NRBC Pct Auto 0.3 /100WBC (0.0-0.2); Platelet Count 231 X10*3/uL (160-400); Red Blood Count 2.50 X10*6/uL (4.20-5.50); White Blood Count 6.3 X10*3/uL (4.8-10.8)
[2025-04-26 05:50] LABS: INTERNATIONAL NORM RATIO 1.1 (0.9-1.1); Prothrombin Time 12.9 SEC (10.9-12.4)
[2025-04-26 05:57] LABS: Albumin Level 3.3 g/dL (3.5-5.0); Anion Gap 21 (12-20); Blood Urea Nitrogen 83 mg/dL (9-16); Calcium 7.9 mg/dL (8.4-10.2); Carbon Dioxide 29 mmol/L (22-29); Chloride 97 mmol/L (96-108); Creatinine Clr Calc Pharmacy 26.2; Estimated Glomerular Filt Rate 24; Magnesium 2.5 mg/dL (1.6-2.6); Potassium 4.0 mmol/L (3.3-5.1); Sodium 143 mmol/L (135-145)
[2025-04-26 06:02] LABS: Hemoglobin 7.0 g/dl (12.0-16.0)
[2025-04-26 06:28] LABS: Venous Blood Gas Refer to POC result
[2025-04-26 06:35] LABS: Venous Blood Gas Refer to POC result
[2025-04-26 06:43] LABS: Free T4 (Free Thyroxine) 0.47 ng/dL (0.71-1.85); Thyroid Stimulating Hormone 0.47 uIU/mL (0.32-4.0)
[2025-04-26 07:27] LABS: Hematocrit 25.4 % (37.0-47.0); Hemoglobin 7.6 g/dl (12.0-16.0); Mean Corpuscular HGB Conc 29.9 g/dl (31.0-35.0); Mean Corpuscular Hemoglobin 28.1 pg (27.0-33.0); Mean Corpuscular Volume 94.1 fL (80.0-98.0); NRBC Abs Auto 0.040 X10*3/uL (0.0-0.012); NRBC Pct Auto 0.5 /100WBC (0.0-0.2); Platelet Count 276 X10*3/uL (160-400); Red Blood Count 2.70 X10*6/uL (4.20-5.50); White Blood Count 8.1 X10*3/uL (4.8-10.8)
--- NOTE | 2025-04-26 07:31 | HO.SKINPHOTO ---
Location: Buttocks Category: ?PI Location: Bilateral LE
--- NOTE | 2025-04-26 07:33 | PC.ADMIT ---
Patient arrived to ICU from ED at approximately 1900. Upon initial assessment at 1900- Patient intubated and sedated. RASS -2. Patient opens eyes to name, tracks speaker. Able to follow simple commands. RADER. Pupils 5mm equal/sluggish. Propofol titrated per DEC. NSR on tele, HR 60s. MAP >65. ETT #7.5, 25cm at the lip. On PC settings, FiO2 50%, SpO2 >90%. Lungs diminished throughout. Small amount of thick cream inline secretions suctioned. Abd large, soft. Hypoactive BS. Passing flatus. Moyer in place, draining mary colored urine with sediment. Repositioned Q2H. Bed locked in lowest position, bed alarm on. Report given to oncoming RN at 0700.
[2025-04-26] MEDS: Chlorhexidine Gluc Oral Rinse 15 ML MOUTHWASH BUCCAL ×3 (08:15→20:38)
[2025-04-26] MEDS: Albuterol/Iprat 2.5/0.5MG 3 ML AMPUL.NEB INHALE ×4 (08:25→18:46)
--- NOTE | 2025-04-26 09:25 | PM.CCPN ---
Subjective Subjective Date of Service: 04/26/25 Interval History: 79-year-old morbidly obese type 2 diabetic and hypertensive with chronic hypercarbic and hypoxic respiratory failure apparently on CPAP and a chronic indwelling Moyer catheter with a recent enterococcal infection Chest x-ray shows a somewhat smaller left pleural effusion and an acute relative respiratory alkalosis today so we had to reduce tidal volume and frequency on the machine and suctioning copious amounts of infected material from the endotracheal tube samples have been sent down to the laboratory antibiotics will remain as above and she seems to be responding well to the breathing treatments but it would seem that is what precipitated the respiratory failure and Moyer catheter was changed Critical Care Time (minutes): 40 Physical Exam Vital Signs: Vital Signs: Last Vital Signs Temp 98.2 F 04/26/25 08:00 Pulse 47 L 04/26/25 08:42 Resp 16 04/26/25 08:42 BP 111/59 L 04/26/25 08:00 Pulse Ox 96 04/26/25 08:00 O2 Del Method Mechanical Ventil ation 04/26/25 08:00 FiO2 30 04/26/25 08:42 BMI result Body Mass Index 37.8 Comfortable and synchronous with the ventilator no skin rash no lymphadenopathy Abdomen is soft no evidence of ileus noted on the x-ray Lungs with some inspiratory rhonchi on the left side only Cardiac exam with good bilateral carotid upstrokes no bruits no neck vein distension and by lab work her renal function is now improving since hydration Objective Data Labs 04/26/25 06:39 04/26/25 05:19 Labs: Laboratory Results - last 24 hr 04/25/25 04/25/25 04/25/25 14:34 14:48 15:03 WBC 12.1 H RBC 2.89 L Hgb 8.2 L Hct 28.5 L MCV 98.6 H MCH 28.4 MCHC 28.8 L RDW 15.9 Plt Count 305 MPV 9.0 L Immature Gran % (Auto) 1.1 H Neut % (Auto) 95.3 H Lymph % (Auto) 0.8 L Nance % (Auto) 2.5 Eos % (Auto) 0.1 Baso % (Auto) 0.2 Lymph # (Auto) 0.1 L Nance # (Auto) 0.3 Eos # (Auto) 0.0 Baso # (Auto) 0.0 Abs Immat Gran (auto) 0.13 H Absolute Neuts (auto) 11.5 H Absolute Nucleated RBC 0.000 Nucleated RBC % (auto) 0.0 Smear Tech's Comments PT INR O2 Saturation 94.0 ABG pH at Pt Temp 7.21 L ABG pCO2 at Pt Temp 95 H* ABG pO2 at Pt Temp 83 ABG HCO3 39 H ABG Base Excess (Actual) 8.5 VBG pH VBG pCO2 VBG pO2 VBG HCO3 VBG O2 Saturation VBG Base Excess Sodium 138 Potassium 5.4 H D Chloride 92 L Carbon Dioxide 32 H Anion Gap 19 BUN 89 H Creatinine 2.23 H Estim Creat Clear Calc 25.1 Estimated GFR 21 POC Glucose 342 H Random Glucose 401 H* Lactic Acid Calcium 8.1 L Phosphorus Magnesium Total Bilirubin 0.2 AST 31 ALT 7 Alkaline Phosphatase 96 Lactate Dehydrogenase 370 H Troponin I High Sens 22.9 H B-Natriuretic Peptide 953 H Total Protein 6.9 Albumin 3.2 L Beta-Hydroxybutyrate TSH 0.70 Free T4 Urine Color Urine Appearance Urine pH Ur Specific [place] Urine Protein Urine Glucose (UA) Urine Ketones Urine Blood Urine Nitrite Ur Leukocyte Esterase Urine RBC Urine WBC Ur Squamous Epith Cells Urine Bacteria Hyaline Casts Urine Yeast Peritoneal WBC Peritoneal RBC Periton Neutrophils Periton Lymphocytes Peritoneal Monocytes Peritoneal Other Cells Urine Opiates Screen Ur Buprenorphine Scrn Ur Oxycodone Screen Urine Methadone Screen Urine Fentanyl Screen Ur Barbiturates Screen Ur Phencyclidine Scrn Ur Amphetamines Screen U Benzodiazepines Scrn Urine Cocaine Screen U Marijuana (THC) Screen Blood Type Antibody Screen 04/25/25 04/25/25 04/25/25 16:41 18:37 19:25 WBC RBC Hgb Hct MCV MCH MCHC RDW Plt Count MPV Immature Gran % (Auto) Neut % (Auto) Lymph % (Auto) Nance % (Auto) Eos % (Auto) Baso % (Auto) Lymph # (Auto) Nance # (Auto) Eos # (Auto) Baso # (Auto) Abs Immat Gran (auto) Absolute Neuts (auto) Absolute Nucleated RBC Nucleated RBC % (auto) Smear Tech's Comments PT INR O2 Saturation ABG pH at Pt Temp ABG pCO2 at Pt Temp ABG pO2 at Pt Temp ABG HCO3 ABG Base Excess (Actual) VBG pH 7.57 H VBG pCO2 32 VBG pO2 205 VBG HCO3 30 H VBG O2 Saturation 100.0 VBG Base Excess 8.2 Sodium Potassium Chloride Carbon Dioxide Anion Gap BUN Creatinine Estim Creat Clear Calc Estimated GFR POC Glucose 362 H* Random Glucose Lactic Acid 1.2 Calcium Phosphorus Magnesium Total Bilirubin AST ALT Alkaline Phosphatase Lactate Dehydrogenase Cancelled Troponin I High Sens B-Natriuretic Peptide Total Protein Cancelled Albumin Beta-Hydroxybutyrate TSH Free T4 Urine Color Urine Appearance Urine pH Ur Specific [place] Urine Protein Urine Glucose (UA) Urine Ketones Urine Blood Urine Nitrite Ur Leukocyte Esterase Urine RBC Urine WBC Ur Squamous Epith Cells Urine Bacteria Hyaline Casts Urine Yeast Peritoneal WBC 0.246 Peritoneal RBC 0.014 Periton Neutrophils 27 Periton Lymphocytes 30 Peritoneal Monocytes 14 Peritoneal Other Cells 29 Urine Opiates Screen Ur Buprenorphine Scrn Ur Oxycodone Screen Urine Methadone Screen Urine Fentanyl Screen Ur Barbiturates Screen Ur Phencyclidine Scrn Ur Amphetamines Screen U Benzodiazepines Scrn Urine Cocaine Screen U Marijuana (THC) Screen Blood Type Antibody Screen 04/25/25 04/25/25 04/26/25 20:05 21:34 00:16 WBC 8.6 RBC 2.83 L Hgb 8.1 L Hct 27.1 L MCV 95.8 MCH 28.6 MCHC 29.9 L RDW 16.0 Plt Count 313 MPV 9.0 L Immature Gran % (Auto) 1.1 H Neut % (Auto) 93.8 H Lymph % (Auto) 1.8 L Nance % (Auto) 3.2 Eos % (Auto) 0.0 Baso % (Auto) 0.1 Lymph # (Auto) 0.2 L Nance # (Auto) 0.3 Eos # (Auto) 0.0 Baso # (Auto) 0.0 Abs Immat Gran (auto) 0.09 H Absolute Neuts (auto) 8.1 Absolute Nucleated RBC 0.000 Nucleated RBC % (auto) 0.0 Smear Tech's Comments VERIFIED PT INR O2 Saturation ABG pH at Pt Temp ABG pCO2 at Pt Temp ABG pO2 at Pt Temp ABG HCO3 ABG Base Excess (Actual) VBG pH VBG pCO2 VBG pO2 VBG HCO3 VBG O2 Saturation VBG Base Excess Sodium 141 Potassium 4.6 Chloride 95 L Carbon Dioxide 30 H Anion Gap 21 H BUN 87 H Creatinine 2.12 H Estim Creat Clear Calc 24.6 Estimated GFR 23 POC Glucose 262 H Random Glucose 386 H* Lactic Acid Calcium 7.4 L D Phosphorus 4.9 H Magnesium 2.4 Total Bilirubin AST ALT Alkaline Phosphatase Lactate Dehydrogenase Troponin I High Sens B-Natriuretic Peptide Total Protein Albumin 3.1 L Beta-Hydroxybutyrate 0.38 H TSH Free T4 Urine Color Red A Urine Appearance Cloudy Urine pH 6.0 Ur Specific [place] 1.010 Urine Protein 100 (2+) H Urine Glucose (UA) >=1000 H Urine Ketones Negative Urine Blood Large (3+) H Urine Nitrite Negative Ur Leukocyte Esterase Moderate (2+) H Urine RBC >20 H Urine WBC >50 H Ur Squamous Epith Cells 0-2 Urine Bacteria None Seen Hyaline Casts 3-5 Urine Yeast Present Peritoneal WBC Peritoneal RBC Periton Neutrophils Periton Lymphocytes Peritoneal Monocytes Peritoneal Other Cells Urine Opiates Screen Not Detected Ur Buprenorphine Scrn Not Detected Ur Oxycodone Screen Not Detected Urine Methadone Screen Not Detected Urine Fentanyl Screen Not Detected Ur Barbiturates Screen Not Detected Ur Phencyclidine Scrn Not Detected Ur Amphetamines Screen Not Detected U Benzodiazepines Scrn Not Detected Urine Cocaine Screen Not Detected U Marijuana (THC) Screen Not Detected Blood Type Antibody Screen 04/26/25 04/26/25 04/26/25 05:15 05:19 05:29 WBC RBC Hgb Hct MCV MCH MCHC RDW Plt Count MPV Immature Gran % (Auto) Neut % (Auto) Lymph % (Auto) Nance % (Auto) Eos % (Auto) Baso % (Auto) Lymph # (Auto) Nance # (Auto) Eos # (Auto) Baso # (Auto) Abs Immat Gran (auto) Absolute Neuts (auto) Absolute Nucleated RBC Nucleated RBC % (auto) Smear Tech's Comments PT INR O2 Saturation ABG pH at Pt Temp ABG pCO2 at Pt Temp ABG pO2 at Pt Temp ABG HCO3 ABG Base Excess (Actual) VBG pH 7.76 H* 7.68 H* VBG pCO2 25 23 VBG pO2 190 37 VBG HCO3 35 H 27 H VBG O2 Saturation 99.0 TNP VBG Base Excess 16.1 7.6 Sodium 143 Potassium 4.0 Chloride 97 Carbon Dioxide 29 Anion Gap 21 H BUN 83 H Creatinine 1.99 H Estim Creat Clear Calc 26.2 Estimated GFR 24 POC Glucose Random Glucose 182 H Lactic Acid Calcium 7.9 L D Phosphorus 3.5 Magnesium 2.5 Total Bilirubin AST ALT Alkaline Phosphatase Lactate Dehydrogenase Troponin I High Sens B-Natriuretic Peptide Total Protein Albumin 3.3 L Beta-Hydroxybutyrate TSH 0.47 Free T4 0.47 L Urine Color Urine Appearance Urine pH Ur Specific [place] Urine Protein Urine Glucose (UA) Urine Ketones Urine Blood Urine Nitrite Ur Leukocyte Esterase Urine RBC Urine WBC Ur Squamous Epith Cells Urine Bacteria Hyaline Casts Urine Yeast Peritoneal WBC Peritoneal RBC Periton Neutrophils Periton Lymphocytes Peritoneal Monocytes Peritoneal Other Cells Urine Opiates Screen Ur Buprenorphine Scrn Ur Oxycodone Screen Urine Methadone Screen Urine Fentanyl Screen Ur Barbiturates Screen Ur Phencyclidine Scrn Ur Amphetamines Screen U Benzodiazepines Scrn Urine Cocaine Screen U Marijuana (THC) Screen Blood Type Antibody Screen 04/26/25 04/26/25 04/26/25 05:30 06:39 07:25 WBC 6.3 8.1 RBC 2.50 L 2.70 L Hgb 7.0 L* 7.6 L Hct 23.8 L 25.4 L MCV 95.2 94.1 MCH 28.0 28.1 MCHC 29.4 L 29.9 L RDW 16.3 H 16.4 H Plt Count 231 D 276 MPV 9.6 9.8 Immature Gran % (Auto) 1.0 H Neut % (Auto) 87.0 H Lymph % (Auto) 4.2 L Nance % (Auto) 7.0 Eos % (Auto) 0.6 Baso % (Auto) 0.2 Lymph # (Auto) 0.3 L Nance # (Auto) 0.4 Eos # (Auto) 0.0 Baso # (Auto) 0.0 Abs Immat Gran (auto) 0.06 H Absolute Neuts (auto) 5.5 Absolute Nucleated RBC 0.020 H 0.040 H Nucleated RBC % (auto) 0.3 H 0.5 H Smear Tech's Comments PT 12.9 H INR 1.1 O2 Saturation ABG pH at Pt Temp ABG pCO2 at Pt Temp ABG pO2 at Pt Temp ABG HCO3 ABG Base Excess (Actual) VBG pH VBG pCO2 VBG pO2 VBG HCO3 VBG O2 Saturation VBG Base Excess Sodium Potassium Chloride Carbon Dioxide Anion Gap BUN Creatinine Estim Creat Clear Calc Estimated GFR POC Glucose Random Glucose Lactic Acid Calcium Phosphorus Magnesium Total Bilirubin AST ALT Alkaline Phosphatase Lactate Dehydrogenase Troponin I High Sens B-Natriuretic Peptide Total Protein Albumin Beta-Hydroxybutyrate TSH Free T4 Urine Color Urine Appearance Urine pH Ur Specific [place] Urine Protein Urine Glucose (UA) Urine Ketones Urine Blood Urine Nitrite Ur Leukocyte Esterase Urine RBC Urine WBC Ur Squamous Epith Cells Urine Bacteria Hyaline Casts Urine Yeast Peritoneal WBC Peritoneal RBC Periton Neutrophils Periton Lymphocytes Peritoneal Monocytes Peritoneal Other Cells Urine Opiates Screen Ur Buprenorphine Scrn Ur Oxycodone Screen Urine Methadone Screen Urine Fentanyl Screen Ur Barbiturates Screen Ur Phencyclidine Scrn Ur Amphetamines Screen U Benzodiazepines Scrn Urine Cocaine Screen U Marijuana (THC) Screen Blood Type O Positive Antibody Screen NEGATIVE Microbiology Microbiology Results: Microbiology 04/25/25 21:34 Trachea Gram Stain - Final 04/25/25 21:34 Trachea Sputum Culture - Preliminary Culture in progress. Progress Note: A&P Assessment and plan (1) Generalized anxiety disorder: Status: Acute (2) Essential hypertension: Status: Acute (3) CHF exacerbation: Status: Acute (4) Cor pulmonale: Status: Acute (5) Pulmonary hypertension: Status: Acute (6) Diabetes mellitus: Status: Acute (7) Hypothyroidism: Status: Acute (8) Bilateral hydronephrosis: Status: Acute (9) CKD (chronic kidney disease): Status: Acute (10) Renal insufficiency: Status: Acute (11) Hematuria: Status: Acute (12) Acute hyperkalemia: Status: Acute (13) Urinary retention: Status: Acute (14) Urinary tract infection associated with catheterization of urinary tract: Status: Acute (15) Gram-negative bacteremia: Status: Acute (16) Skin ulcer of sacral region: Status: Acute (17) Open wound: Status: Acute (18) Altered mental status: Status: Acute (19) Chronic pain syndrome: Status: Acute (20) COPD (chronic obstructive pulmonary disease): Status: Acute (21) Acute on chronic respiratory failure with hypoxia and hypercapnia: Status: Acute (22) COPD exacerbation: Status: Acute (23) Acute on chronic respiratory failure: Status: Acute (24) Hypercapnic respiratory failure: Status: Acute (25) Pleural effusion associated with pulmonary infection: Status: Acute (26) HK (hyperkeratosis): Status: Acute (27) Community acquired pneumonia: Status: Acute (28) Urinary tract infection associated with indwelling urethral catheter: Status: Acute Plan So the plan is to maintain pulmonary toileting with inhaled pulmonary treatments and the above antibiotics and awaiting culture results Quality Stroke Does the patient have a stroke diagnosis?: No VTE Prior VTE?: No VTE Risk Level:: Medical - moderate - high VTE Device Contraindication: N/A - Device Ordered VTE Drug Contraindication: N/A - Med Ordered
--- NOTE | 2025-04-26 10:19 | PM.CNPUL ---
History of Present Illness History of Present Illness Consult date: 04/26/25 Chief complaint: Acute/chronic hypercarbic/hypoxic respiratory fail Narrative: This is an inpatient Pulmonary consultation. The patient is a 79-year-old female morbidly obese type 2 diabetic insulin-dependent with hypothyroidism chronic peripheral edema with associated overlying dermatitis and possible leg wound this potential source of infection along with chronic indwelling Moyer and a recent Enterococcus faecalis urinary tract infection brought in respiratory distress noted to be hypoxemic was on CPAP and then upgraded to BiPAP but distress remained a left thoracentesis was performed just a slightly serous sanguinous looking appearance to it grossly studies are pending and because of ongoing distress pH of 7.24 with pCO2 of 95 blood gas consistent with acute on chronic hypercarbic and hypoxic respiratory failure with secondary metabolic alkalosis patient was then intubated without complication. The patient did have a CT scan of the chest personally by me disease primarily in the left left upper lobe and also involving the right hemithorax. Likely mucus plugging although foreign body aspiration can not be ruled out. X-rays already showing some improvement. Awaiting the results of the thoracentesis. By looking at the CAT scan the effusion was actually small to medium size and appears to be related more with a parapneumonic effusion from a pneumonic process. The patient did have a sputum hopefully to guide antibiotic coverage. If her lungs than opening up bronchoscopy for therapeutic cleaning of the airways. We will reassess with a repeat x-ray later. Review of Systems Review of Systems: Yes Unobtainable due to mental status PMFSH Past Medical History Medical History (Updated 04/26/25 @ 10:25 by Aidan Darby MD) Atelectasis Generalized anxiety disorder COPD (chronic obstructive pulmonary disease) CHF (congestive heart failure) Anemia Herpes zoster MARJORIE (acute kidney injury) Left bundle branch block Morbid obesity Chronic pain syndrome Anxiety Pernicious anemia CHF (congestive heart failure) Hypothyroidism Essential hypertension Diabetes mellitus Pure hypercholesterolemia Family History Family History Father CVD (cardiovascular disease) Mother No problems noted. Family/Other FH: mental illness Surgical History Surgical History H/O left knee surgery Deficient knowledge of leg surgery History of tonsillectomy and adenoidectomy History of appendectomy Social History Social History Household Members: Other Household Members Other:: son Housing: [facility] Do you presently have visiting nurse or other home services: Yes (vna) Alcohol intake: unknown Patient Tobacco Use Status: Former Tobacco user Tobacco use type: Cigarette e-Cigarette/Vaping Use: Never Used Second Hand Smoke Exposure: No Advance Directives: Yes Advance Directives on File: Yes Advance Directives Date on File: 06/24/24 Patient : No service: No Current occupational status: disabled Cognitive needs: Yes (Wheelchair, Lift chair) Hearing needs: No Vision needs: Yes (Glasses) Meds Allergies Allergy/AdvReac Type Severity Reaction Status Date / Time ibuprofen (From Motrin) Allergy Unknown swelling Verified 04/25/25 14:39 codeine (CODEINE) AdvReac Unknown SLEEPY Verified 04/03/25 10:32 Active Medications: Current Medications Acetaminophen (Acetaminophen 325 Mg Tablet) 650 mg PO Q6H PRN PRN Reason: Fever >101 Albuterol Sulfate (Albuterol Sulfate (0.083%) 2.5 Mg/3 Ml Vial.Neb) 2.5 mg INHALE Q4H PRN PRN Reason: Shortness of Breath/Wheezing Last Admin: 04/25/25 21:59 Dose: 2.5 mg Albuterol/Ipratropium (Albuterol/Iprat 2.5/0.5mg 3 Ml Ampul.Neb) 3 ml INHALE RQ4H WHILE AWAKE [facility] Last Admin: 04/26/25 08:25 Dose: 3 ml Chlorhexidine Gluconate (Chlorhexidine Gluc Oral Rinse 15 Ml Mouthwash) 15 ml BUCCAL TID [facility] Last Admin: 04/26/25 08:15 Dose: 15 ml Dextrose (Dextrose 50 % 25 Gm/50 Ml Syringe) 25 gm IVPUSH Q15M PRN; Protocol PRN Reason: per Hypoglycemia Standing Ord. Famotidine (Famotidine/Pf 20 Mg/2 Ml Vial) 20 mg IVPUSH BID [facility] Last Admin: 04/26/25 08:15 Dose: 20 mg Heparin Sodium (Porcine) (Heparin Sodium,Porcine 5,000 Unit/Ml Vial) 5,000 unit SUBCUT Q12H [facility] Last Admin: 04/26/25 06:23 Dose: 5,000 unit Propofol (Diprivan) 1,000 mg in 100 mls @ 0 mls/hr IVCONT .Q0M [facility]; Protocol Last Admin: 04/26/25 06:32 Dose: 30 mcg/kg/min, 19.69 mls/hr Norepinephrine Bitartrate (Levophed) 8 mg in 250 mls @ 0 mls/hr IV .Q0M [facility]; Protocol Piperacillin Sod/Tazobactam (Sod 4.5 gm/ Sodium Chloride) 100 mls @ 200 mls/hr IV Q8H [facility] Last Infusion: 04/26/25 05:05 Dose: Infused Vancomycin HCl 750 mg/ Sodium (Chloride) 265 mls @ 265 mls/hr IV Q24H GEO Insulin Human Lispro (Insulin Lispro 100 Unit/Ml 3 Ml Vial) 0 unit SUBCUT Q6H [facility]; Protocol Last Admin: 04/26/25 06:15 Dose: Not Given Levothyroxine Sodium (Levothyroxine Sodium 100 Mcg/5 Ml Vial) 75 mcg IVPUSH DAILY@0600 [facility] Last Admin: 04/26/25 07:45 Dose: 75 mcg Nystatin (Nystatin Powder 15 Gm Bottle) 1 appl TOPICAL TID [facility]; Protocol Last Admin: 04/26/25 08:15 Dose: 1 appl Pharmacy Consult (Consult Rx Vancomycin Dosing) 1 each MISCELLANE DAILY PRN PRN Reason: Consult order Home Medications ?Medication ?Instructions ?Recorded ?Confirmed ?Last Taken ?Type insulin glargine 100 unit/mL (3 25 unit subcut DAILY@1900 04/04/25 04/25/25 04/02/25 History mL) subcutaneous pen (Basaglar KwikPen U-100 Insulin) albuterol sulfate 90 mcg/actuation 2 puff inhalation Q6H PRN 04/25/25 04/25/25 Unknown History aerosol inhaler (Ventolin HFA) Shortness Of Breath Or Wheezing lorazepam 0.5 mg tablet (Ativan) 0.5 mg PO BID 04/25/25 04/25/25 Unknown History lorazepam 0.5 mg tablet (Ativan) 1 mg PO Q6H PRN Anxiety 04/25/25 04/25/25 Unknown History Physical Exam Vital Signs: Vital Signs: Last Vital Signs Temp 98.2 F 04/26/25 09:00 Pulse 49 L 04/26/25 09:00 Resp 16 04/26/25 09:00 BP 117/46 L 04/26/25 09:00 Pulse Ox 96 04/26/25 09:00 O2 Del Method Mechanical Ventil ation 04/26/25 09:00 FiO2 30 04/26/25 09:00 BMI result Body Mass Index 37.8 Appearance: Alert.? Oriented X3. cvs: rrr, [id number] . res: Air entry significantly improved, no rales or wheezing. abd: no rebound or guarding ,nt, bs present. ext pulses present , no cyanosis , no edema. neuro: axo3 , nonfocal. Const: General: No awake Orientation/consciousness: Other orientation findings (vented) HEENT: Head: Yes atraumatic Neck: Neck: Yes supple Resp: Auscultation: diminished lung sounds Cardio: Rate: regular rate Rhythm: regular rhythm Heart sounds: S1 normal heart sound present and S2 normal heart sound present GI: Palpation (GI): Soft to palpation Extrem: General: No edema Results Laboratory Findings 04/26/25 06:39 04/26/25 05:19 ABG, PT/INR, D-dimer: PT/INR, D-dimer PT 12.9 SEC (10.9-12.4) H 04/26/25 05:30 INR 1.1 (0.9-1.1) 04/26/25 05:30 Abnormal lab findings: Abnormal Labs 04/25/25 04/25/25 04/25/25 14:34 14:48 15:03 WBC 12.1 H RBC 2.89 L Hgb 8.2 L Hct 28.5 L MCV 98.6 H MCHC 28.8 L RDW MPV 9.0 L Immature Gran % (Auto) 1.1 H Neut % (Auto) 95.3 H Lymph % (Auto) 0.8 L Lymph # (Auto) 0.1 L Abs Immat Gran (auto) 0.13 H Absolute Neuts (auto) 11.5 H Absolute Nucleated RBC Nucleated RBC % (auto) PT ABG pH at Pt Temp 7.21 L ABG pCO2 at Pt Temp 95 H* ABG HCO3 39 H VBG pH VBG HCO3 Potassium 5.4 H D Chloride 92 L Carbon Dioxide 32 H Anion Gap BUN 89 H Creatinine 2.23 H POC Glucose 342 H Random Glucose 401 H* Calcium 8.1 L Phosphorus Lactate Dehydrogenase 370 H Troponin I High Sens 22.9 H B-Natriuretic Peptide 953 H Albumin 3.2 L Beta-Hydroxybutyrate Free T4 Urine Color Urine Protein Urine Glucose (UA) Urine Blood Ur Leukocyte Esterase Urine RBC Urine WBC 04/25/25 04/25/25 04/25/25 18:37 19:25 20:05 WBC RBC 2.83 L Hgb 8.1 L Hct 27.1 L MCV MCHC 29.9 L RDW MPV 9.0 L Immature Gran % (Auto) 1.1 H Neut % (Auto) 93.8 H Lymph % (Auto) 1.8 L Lymph # (Auto) 0.2 L Abs Immat Gran (auto) 0.09 H Absolute Neuts (auto) Absolute Nucleated RBC Nucleated RBC % (auto) PT ABG pH at Pt Temp ABG pCO2 at Pt Temp ABG HCO3 VBG pH 7.57 H VBG HCO3 30 H Potassium Chloride 95 L Carbon Dioxide 30 H Anion Gap 21 H BUN 87 H Creatinine 2.12 H POC Glucose 362 H* Random Glucose 386 H* Calcium 7.4 L D Phosphorus 4.9 H Lactate Dehydrogenase Troponin I High Sens B-Natriuretic Peptide Albumin 3.1 L Beta-Hydroxybutyrate 0.38 H Free T4 Urine Color Urine Protein Urine Glucose (UA) Urine Blood Ur Leukocyte Esterase Urine RBC Urine WBC 04/25/25 04/26/25 04/26/25 21:34 00:16 05:15 WBC RBC Hgb Hct MCV MCHC RDW MPV Immature Gran % (Auto) Neut % (Auto) Lymph % (Auto) Lymph # (Auto) Abs Immat Gran (auto) Absolute Neuts (auto) Absolute Nucleated RBC Nucleated RBC % (auto) PT ABG pH at Pt Temp ABG pCO2 at Pt Temp ABG HCO3 VBG pH 7.76 H* VBG HCO3 35 H Potassium Chloride Carbon Dioxide Anion Gap BUN Creatinine POC Glucose 262 H Random Glucose Calcium Phosphorus Lactate Dehydrogenase Troponin I High Sens B-Natriuretic Peptide Albumin Beta-Hydroxybutyrate Free T4 Urine Color Red A Urine Protein 100 (2+) H Urine Glucose (UA) >=1000 H Urine Blood Large (3+) H Ur Leukocyte Esterase Moderate (2+) H Urine RBC >20 H Urine WBC >50 H 04/26/25 04/26/25 04/26/25 05:19 05:29 05:30 WBC RBC 2.50 L Hgb 7.0 L* Hct 23.8 L MCV MCHC 29.4 L RDW 16.3 H MPV Immature Gran % (Auto) 1.0 H Neut % (Auto) 87.0 H Lymph % (Auto) 4.2 L Lymph # (Auto) 0.3 L Abs Immat Gran (auto) 0.06 H Absolute Neuts (auto) Absolute Nucleated RBC 0.020 H Nucleated RBC % (auto) 0.3 H PT 12.9 H ABG pH at Pt Temp ABG pCO2 at Pt Temp ABG HCO3 VBG pH 7.68 H* VBG HCO3 27 H Potassium Chloride Carbon Dioxide Anion Gap 21 H BUN 83 H Creatinine 1.99 H POC Glucose Random Glucose 182 H Calcium 7.9 L D Phosphorus Lactate Dehydrogenase Troponin I High Sens B-Natriuretic Peptide Albumin 3.3 L Beta-Hydroxybutyrate Free T4 0.47 L Urine Color Urine Protein Urine Glucose (UA) Urine Blood Ur Leukocyte Esterase Urine RBC Urine WBC 04/26/25 06:39 WBC RBC 2.70 L Hgb 7.6 L Hct 25.4 L MCV MCHC 29.9 L RDW 16.4 H MPV Immature Gran % (Auto) Neut % (Auto) Lymph % (Auto) Lymph # (Auto) Abs Immat Gran (auto) Absolute Neuts (auto) Absolute Nucleated RBC 0.040 H Nucleated RBC % (auto) 0.5 H PT ABG pH at Pt Temp ABG pCO2 at Pt Temp ABG HCO3 VBG pH VBG HCO3 Potassium Chloride Carbon Dioxide Anion Gap BUN Creatinine POC Glucose Random Glucose Calcium Phosphorus Lactate Dehydrogenase Troponin I High Sens B-Natriuretic Peptide Albumin Beta-Hydroxybutyrate Free T4 Urine Color Urine Protein Urine Glucose (UA) Urine Blood Ur Leukocyte Esterase Urine RBC Urine WBC Microbiology: Microbiology 04/25/25 21:34 Trachea Gram Stain - Final 04/25/25 21:34 Trachea Sputum Culture - Preliminary Culture in progress. Assessment and Plan (1) Acute on chronic respiratory failure with hypoxia and hypercapnia: Status: Acute (2) COPD (chronic obstructive pulmonary disease): Qualifiers: COPD type: emphysema Emphysema type: centrilobular Qualified Code(s): J43.2 - Centrilobular emphysema Status: Acute (3) Pleural effusion associated with pulmonary infection: Status: Acute (4) Atelectasis: Status: Acute (5) Pneumonia: Status: Resolved Plan Left sided opacity more related to atelectasis and pneumonia with a smaller effusion. Rotate pt, try to keep Left lung up to help with recruitment. Repeat CXR giovani today broad spectrum abx coverage Sputum culture Tria mucomyst/albuterol x 3 days continue ventilator support Consider bronchocopy in the AM if no better Awaiting Procedures Date of Service Date of Service: 04/26/25
--- NOTE | 2025-04-26 10:22 | MHC.CM.PN ---
IMM DELIVERED TO SON EVGENY. ASSESSMENT DONE WITH SON PT IS CURRENTLY INTUBATED. PT IS AT STR AT [facility] WHERE SHE WILL RETURN ON DC. +HCP ON FILE DP: RETURN TO [facility] FOR STR, RETURN REFERRAL SENT. WILL NEED BLS TRANSPORT. CM WILL CONTINUE TO FOLLOW FOR ANY CHANGE TO DC PLAN/NEEDS.
--- NOTE | 2025-04-26 11:37 | MHC.CLN ---
CONSULT PT IS INTUBATED AND SEDATED CURRENTLY NPO IF TF NEEDED; RECOMMEND GLUCERNA AT MAX GOAL RATE 30ML/HR WILL PROVIDE 720KCALS (1240 TOTAL KCALS WITH SEDATION; 23KCALS/KG), 30G PROTEIN, 614ML FREE WATER FROM FORMULA MONITOR TOLERANCE AND LYTES SEE ALSO FULL CLINICAL NUTRITION ASSESSMENT
[2025-04-26 12:30] LABS: Glucose, Whole Blood 85 mg/dL (60-115)
[2025-04-26 12:59] LABS: Glucose, Whole Blood 92 mg/dL (60-115)
--- NOTE | 2025-04-26 18:09 | HO.WOUND ---
Wound Consult: Initial 79yr old?[place] [facility] [place] - See progress notes and H&P for detailed history.? Wound consult placed for Bilateral Lower Legs and sacrum.? Patient in ICU at this time. ? Last Admission photo from 04/04/25 04/26/25 Sacrum / coccyx and Bilateral Ischium Etiology: ??Chronic MASD - IAD Present on Admission Wound Bed: Overall improving since last admission - dark maroon light purple intact tissue blanchable at this time with some scattered areas of partial thickness tissue loss Drainage / Odor: None Edges: ? irregular Goals of Treatment: ? Off load pressure and protect from friction moisture and pressure Of note the sacrum coccyx has previously noted stage 3 pressure injury per chart review it is important to know Tensil strength is only 80% after full thickness tissue damage (Stage 3 PI). This puts the patient at risk for reopening pressure injury - all preventative measures should be employed to prevent reopening of Pressure injury. Bilateral Lower Legs Etiology: ?Venous Dermatitis Wound Bed: thick scaling tissue - no open wounds noted Goals of Treatment: ? Provider to consider Lachydrin to soften and allow tissue to gently debride Recommendations: 1. Turn and Reposition every 2 hours and as needed for patient comfort.? Use pillows or wedges to support off loading positions. 2. Off Load all bony prominences with use of pillows and heel boots if needed.? Apply Preventative foams where needed. ? 3. Monitor for incontinence and moisture control, use barrier creams when needed for prevention and treatment. 4. Provide adequate and supplemental nutrition.? 5. Order low air loss mattress. 6. When applicable maintain blood glucose levels per Providers order. Sacrum / Coccyx - Off Load Pressure with Q2 hr turns and use of pillows - Cleanse with PH balance spray or wipes, pat dry. ?Apply thin layer of Triad to wound bed - only pat and dab no scrub and rub when soiling occurs. Reapply thin layer PRN after each episode of incontinence. Bilateral Ischium - Off Load Pressure with Q2 hr turns and use of pillows - Cleanse with PH balance spray or wipes, pat dry. ?Apply thin layer of barrier cream to affected area.? Apply twice daily and Reapply thin layer PRN after each episode of incontinence. Bilateral Lower Legs - Elevate lower legs off of surface of bed with use of pillows.? Cleanse with PH balanced wipes, Pat dry.? Apply Ammonium Lactate to both legs daily. Skin Folds - Cleanse with PH balance wipes, pat dry with soft cloth.? Tuck Interdry AG Sheet into skin fold to wick and translocate moisture away from skin fold.? Be sure to leave at least 2 inch of fabric exposed outside of skin fold.? Change after 5 days or when soiled. Re-consult wound care Nurse for wound deterioration or wound changes.
--- NOTE | 2025-04-26 18:45 | PC.NURSE ---
Assumed care @ 0700? Neuro Sedated on propofol- per MAR. open eyes occasionally, does not follow commands, RADER occasionally (passive ROM performed)? Resp: Vent. support . Cardiac: Sinus Rhythm on tele GI: LBM 7/2 , +bowel sounds, NPO, POC Q6hr, : Moyer in place, patent /draining. Skin: ?Impaired skin integrity - see skin assessment (repositioning maintained)? Infectious: IV antibiotics? Lines:peripheral IVS x2.
[2025-04-26 19:34] LABS: Glucose, Whole Blood 70 mg/dL (60-115)
[2025-04-26 20:05] LABS: Glucose, Whole Blood 120 mg/dL (60-115)
[2025-04-26 20:07] LABS: VBG HCO3 34 mmol/L (22-26); VBG O2 % Saturation 98.0 %
[2025-04-26 20:23] LABS: Hematocrit 26.8 % (37.0-47.0); Hemoglobin 8.1 g/dl (12.0-16.0); Mean Corpuscular HGB Conc 30.2 g/dl (31.0-35.0); Mean Corpuscular Hemoglobin 28.1 pg (27.0-33.0); Mean Corpuscular Volume 93.1 fL (80.0-98.0); NRBC Abs Auto 0.000 X10*3/uL (0.0-0.012); NRBC Pct Auto 0.0 /100WBC (0.0-0.2); Platelet Count 267 X10*3/uL (160-400); Red Blood Count 2.88 X10*6/uL (4.20-5.50); White Blood Count 7.2 X10*3/uL (4.8-10.8)
[2025-04-26 20:42] LABS: Albumin Level 3.1 g/dL (3.5-5.0); Anion Gap 21 (12-20); Blood Urea Nitrogen 83 mg/dL (9-16); Calcium 7.7 mg/dL (8.4-10.2); Carbon Dioxide 30 mmol/L (22-29); Chloride 98 mmol/L (96-108); Creatinine Clr Calc Pharmacy 26.4; Estimated Glomerular Filt Rate 24; Magnesium 2.4 mg/dL (1.6-2.6); Potassium 3.5 mmol/L (3.3-5.1); Sodium 145 mmol/L (135-145)
[2025-04-26 20:51] LABS: Glucose, Whole Blood 110 mg/dL (60-115)
[2025-04-26 20:51] LABS: Glucose, Whole Blood 105 mg/dL (60-115)
[2025-04-26] MEDS: Calcium Gluconate/NaCl,Iso-Osm 1 GM/50 ML PLAST..BAG IV (21:42)
[2025-04-26 22:08] LABS: Venous Blood Gas Refer to POC result
[2025-04-26] MEDS: Potassium Chloride Packet 20 MEQ PACKET 40 MEQ PO (23:28)
[2025-04-27] VITALS (37 sets, daily range): BP systolic 91–155; BP diastolic 38–77; PULSE 40–81; RESP 12–55; TEMP 34.5–36.7; O2SAT 87–100
[2025-04-27 00:42] LABS: Glucose, Whole Blood 60 mg/dL (60-115)
[2025-04-27] MEDS: Dextrose 5 % and Lactated Ring 1,000 ML 80 ML IVCONT (00:47)
[2025-04-27 01:36] LABS: Glucose, Whole Blood 55 mg/dL (60-115)
[2025-04-27 01:36] LABS: Glucose, Whole Blood 52 mg/dL (60-115)
[2025-04-27 01:59] LABS: Glucose, Whole Blood 94 mg/dL (60-115)
[2025-04-27 02:18] LABS: Glucose, Whole Blood 101 mg/dL (60-115)
[2025-04-27 02:40] LABS: Glucose, Whole Blood 113 mg/dL (60-115)
[2025-04-27 04:56] LABS: VBG HCO3 37 mmol/L (22-26); VBG O2 % Saturation 96.0 %
[2025-04-27 05:10] LABS: Hemoglobin 8.4 g/dl (12.0-16.0); Imm Gran Abs Auto 0.08 X10*3/uL (0.00-0.03); Imm Gran Pct Auto 1.1 % (0.0-0.4); MANUAL DIFF FLAG SCAN; NRBC Abs Auto 0.000 X10*3/uL (0.0-0.012); NRBC Pct Auto 0.0 /100WBC (0.0-0.2); PLT CLUMP 1; SCAN SMEAR FLAG 1
[2025-04-27 05:12] LABS: Hematocrit 28.6 % (37.0-47.0); Lymphocytes Absolute Auto 0.4 X10*3/uL (1.2-4.9); Mean Corpuscular HGB Conc 29.4 g/dl (31.0-35.0); Mean Corpuscular Hemoglobin 27.4 pg (27.0-33.0); Mean Corpuscular Volume 93.2 fL (80.0-98.0); Red Blood Count 3.07 X10*6/uL (4.20-5.50)
[2025-04-27 05:24] LABS: INTERNATIONAL NORM RATIO 1.0 (0.9-1.1); Prothrombin Time 11.3 SEC (10.9-12.4)
[2025-04-27 05:39] LABS: Alanine Aminotransferase < 6 U/L (0-31); Albumin Level 3.0 g/dL (3.5-5.0); Alkaline Phosphatase 68 U/L (39-117); Anion Gap 19 (12-20); Aspartate Amino Transferase 23 U/L (5-31); Blood Urea Nitrogen 80 mg/dL (9-16); Calcium 7.7 mg/dL (8.4-10.2); Carbon Dioxide 29 mmol/L (22-29); Chloride 101 mmol/L (96-108); Creatinine Clr Calc Pharmacy 28.1; Estimated Glomerular Filt Rate 26; Magnesium 2.4 mg/dL (1.6-2.6); Potassium 3.7 mmol/L (3.3-5.1); Sodium 145 mmol/L (135-145); Total Protein 5.7 g/dL (6.5-8.0)
[2025-04-27 06:05] LABS: Glucose, Whole Blood 94 mg/dL (60-115)
[2025-04-27 06:56] LABS: Venous Blood Gas Refer to POC result
[2025-04-27 07:06] LABS: White Blood Count 7.3 X10*3/uL (4.8-10.8)
[2025-04-27] MEDS: Albuterol/Iprat 2.5/0.5MG 3 ML AMPUL.NEB INHALE ×4 (07:47→20:42)
--- NOTE | 2025-04-27 08:14 | P.PNCC_ITS ---
Subjective Subjective Date of Service: 04/27/25 Interval History: 79-year-old female morbidly obese with chronic hypercarbic respiratory failure probably on the the basis of obesity hypoventilation came in with altered mental status obtunded acute hypercarbic and hypoxic respiratory failure superimposed evidence of bilateral pneumonitis quite possibly an aspiration picture and she failed a short trial of BiPAP was intubated without consequence copious purulent secretions through pulmonary toileting until today when the secretions now are becoming more minimal but she has become afebrile and is clinically defervescing has been on pressure control with marginal tidal volumes of about 300 cc and only about a 5 L minute ventilatory requirement with which her pCO2 is 36 and therefore she has of course a predominant metabolic alkalosis due to her chronic adeno bicarb retention secondarily but she has remained on vancomycin and piperacillin and 2 sputum Gram stains at both growing Gram-negative rods with 4+ polys so I am going to stop the vancomycin and since she has come in her BUN and creatinine have been slowly diminishing creatinine starting at 2.2 is now down to 1.86 no significant white count no left shift so clinically we are doing better but I think she will be slow to wean and she is a little bit agitated little bit of delirium on low-dose propofol which I am going to stop completely Critical Care Time (minutes): 35 Physical Exam 2 Vital Signs: Vital Signs: Last Vital Signs Temp 97.5 F 04/27/25 07:00 Pulse 46 L 04/27/25 07:00 Resp 16 04/27/25 07:00 BP 104/41 L 04/27/25 07:00 Pulse Ox 93 04/27/25 07:00 O2 Del Method Mechanical Ventil ation 04/27/25 07:00 FiO2 30 04/27/25 07:35 BMI result Body Mass Index 37.8 She is awakening but without any meaningful cognitive function and skin looks the same she has got the stasis dermatitis both legs with the superimposed keratosis and wound service is following that and making recommendations no clinical cellulitis Bedside echo still demonstrating normal LV function Chest is clear without adventitious sounds and definitely clearing infiltrate on chest x-ray Objective Data Labs 04/27/25 04:49 04/27/25 04:49 Labs: Laboratory Results - last 24 hr 04/25/25 04/26/25 04/26/25 16:41 07:25 12:22 WBC RBC Hgb Hct MCV MCH MCHC RDW Plt Count MPV Immature Gran % (Auto) Neut % (Auto) Lymph % (Auto) [place] % (Auto) Eos % (Auto) Baso % (Auto) Lymph # (Auto) [place] # (Auto) Eos # (Auto) Baso # (Auto) Abs Immat Gran (auto) Absolute Neuts (auto) Absolute Nucleated RBC Nucleated RBC % (auto) Smear Tech's Comments PT INR VBG pH VBG pCO2 VBG pO2 VBG HCO3 VBG O2 Saturation VBG Base Excess Sodium Potassium Chloride Carbon Dioxide Anion Gap BUN Creatinine Estim Creat Clear Calc Estimated GFR POC Glucose 85 Random Glucose Lactic Acid Calcium Phosphorus Magnesium Total Bilirubin AST ALT Alkaline Phosphatase Total Protein Albumin Free T3 <0.5 L Peritoneal Tot Protein 2.9 Peritoneal LDH 102 Peritoneal Glucose 343 Random Vancomycin 04/26/25 04/26/25 04/26/25 12:56 15:24 19:29 WBC RBC Hgb Hct MCV MCH MCHC RDW Plt Count MPV Immature Gran % (Auto) Neut % (Auto) Lymph % (Auto) [place] % (Auto) Eos % (Auto) Baso % (Auto) Lymph # (Auto) [place] # (Auto) Eos # (Auto) Baso # (Auto) Abs Immat Gran (auto) Absolute Neuts (auto) Absolute Nucleated RBC Nucleated RBC % (auto) Smear Tech's Comments PT INR VBG pH VBG pCO2 VBG pO2 VBG HCO3 VBG O2 Saturation VBG Base Excess Sodium Potassium Chloride Carbon Dioxide Anion Gap BUN Creatinine Estim Creat Clear Calc Estimated GFR POC Glucose 92 70 Random Glucose Lactic Acid Calcium Phosphorus Magnesium Total Bilirubin AST ALT Alkaline Phosphatase Total Protein Albumin Free T3 Peritoneal Tot Protein Peritoneal LDH Peritoneal Glucose Random Vancomycin 17.3 04/26/25 04/26/25 04/26/25 20:01 20:02 20:03 WBC 7.2 RBC 2.88 L Hgb 8.1 L Hct 26.8 L MCV 93.1 MCH 28.1 MCHC 30.2 L RDW 16.4 H Plt Count 267 MPV 9.2 L Immature Gran % (Auto) Neut % (Auto) Lymph % (Auto) [place] % (Auto) Eos % (Auto) Baso % (Auto) Lymph # (Auto) [place] # (Auto) Eos # (Auto) Baso # (Auto) Abs Immat Gran (auto) Absolute Neuts (auto) Absolute Nucleated RBC 0.000 Nucleated RBC % (auto) 0.0 Smear Tech's Comments PT INR VBG pH 7.71 H* VBG pCO2 27 VBG pO2 72 VBG HCO3 34 H VBG O2 Saturation 98.0 VBG Base Excess 14.3 Sodium 145 Potassium 3.5 Chloride 98 Carbon Dioxide 30 H Anion Gap 21 H BUN 83 H Creatinine 1.98 H Estim Creat Clear Calc 26.4 Estimated GFR 24 POC Glucose 120 H Random Glucose 114 Lactic Acid Calcium 7.7 L Phosphorus 3.0 Magnesium 2.4 Total Bilirubin AST ALT Alkaline Phosphatase Total Protein Albumin 3.1 L Free T3 Peritoneal Tot Protein Peritoneal LDH Peritoneal Glucose Random Vancomycin 04/26/25 04/26/25 04/26/25 20:23 20:47 23:40 WBC RBC Hgb Hct MCV MCH MCHC RDW Plt Count MPV Immature Gran % (Auto) Neut % (Auto) Lymph % (Auto) [place] % (Auto) Eos % (Auto) Baso % (Auto) Lymph # (Auto) [place] # (Auto) Eos # (Auto) Baso # (Auto) Abs Immat Gran (auto) Absolute Neuts (auto) Absolute Nucleated RBC Nucleated RBC % (auto) Smear Tech's Comments PT INR VBG pH VBG pCO2 VBG pO2 VBG HCO3 VBG O2 Saturation VBG Base Excess Sodium Potassium Chloride Carbon Dioxide Anion Gap BUN Creatinine Estim Creat Clear Calc Estimated GFR POC Glucose 110 105 Random Glucose Lactic Acid 1.4 Calcium Phosphorus Magnesium Total Bilirubin AST ALT Alkaline Phosphatase Total Protein Albumin Free T3 Peritoneal Tot Protein Peritoneal LDH Peritoneal Glucose Random Vancomycin 04/27/25 04/27/25 04/27/25 00:34 01:31 01:33 WBC RBC Hgb Hct MCV MCH MCHC RDW Plt Count MPV Immature Gran % (Auto) Neut % (Auto) Lymph % (Auto) [place] % (Auto) Eos % (Auto) Baso % (Auto) Lymph # (Auto) [place] # (Auto) Eos # (Auto) Baso # (Auto) Abs Immat Gran (auto) Absolute Neuts (auto) Absolute Nucleated RBC Nucleated RBC % (auto) Smear Tech's Comments PT INR VBG pH VBG pCO2 VBG pO2 VBG HCO3 VBG O2 Saturation VBG Base Excess Sodium Potassium Chloride Carbon Dioxide Anion Gap BUN Creatinine Estim Creat Clear Calc Estimated GFR POC Glucose 60 55 L* 52 L* Random Glucose Lactic Acid Calcium Phosphorus Magnesium Total Bilirubin AST ALT Alkaline Phosphatase Total Protein Albumin Free T3 Peritoneal Tot Protein Peritoneal LDH Peritoneal Glucose Random Vancomycin 04/27/25 04/27/25 04/27/25 01:54 02:14 02:35 WBC RBC Hgb Hct MCV MCH MCHC RDW Plt Count MPV Immature Gran % (Auto) Neut % (Auto) Lymph % (Auto) [place] % (Auto) Eos % (Auto) Baso % (Auto) Lymph # (Auto) [place] # (Auto) Eos # (Auto) Baso # (Auto) Abs Immat Gran (auto) Absolute Neuts (auto) Absolute Nucleated RBC Nucleated RBC % (auto) Smear Tech's Comments PT INR VBG pH VBG pCO2 VBG pO2 VBG HCO3 VBG O2 Saturation VBG Base Excess Sodium Potassium Chloride Carbon Dioxide Anion Gap BUN Creatinine Estim Creat Clear Calc Estimated GFR POC Glucose 94 101 113 Random Glucose Lactic Acid Calcium Phosphorus Magnesium Total Bilirubin AST ALT Alkaline Phosphatase Total Protein Albumin Free T3 Peritoneal Tot Protein Peritoneal LDH Peritoneal Glucose Random Vancomycin 04/27/25 04/27/25 04/27/25 04:49 04:51 05:58 WBC 7.3 RBC 3.07 L Hgb 8.4 L Hct 28.6 L MCV 93.2 MCH 27.4 MCHC 29.4 L RDW 16.9 H Plt Count TNP MPV TNP Immature Gran % (Auto) 1.1 H Neut % (Auto) 85.1 H Lymph % (Auto) 5.6 L [place] % (Auto) 5.6 Eos % (Auto) 2.2 Baso % (Auto) 0.4 Lymph # (Auto) 0.4 L [place] # (Auto) 0.4 Eos # (Auto) 0.2 Baso # (Auto) 0.0 Abs Immat Gran (auto) 0.08 H Absolute Neuts (auto) 6.1 Absolute Nucleated RBC 0.000 Nucleated RBC % (auto) 0.0 Smear Tech's Comments VERIFIED PT 11.3 INR 1.0 VBG pH 7.62 H* VBG pCO2 36 VBG pO2 71 VBG HCO3 37 H VBG O2 Saturation 96.0 VBG Base Excess 15.5 Sodium 145 Potassium 3.7 Chloride 101 Carbon Dioxide 29 Anion Gap 19 BUN 80 H Creatinine 1.86 H Estim Creat Clear Calc 28.1 Estimated GFR 26 POC Glucose 94 Random Glucose 99 Lactic Acid Calcium 7.7 L Phosphorus 2.8 Magnesium 2.4 Total Bilirubin 0.2 AST 23 ALT < 6 Alkaline Phosphatase 68 Total Protein 5.7 L Albumin 3.0 L Free T3 Peritoneal Tot Protein Peritoneal LDH Peritoneal Glucose Random Vancomycin Microbiology Microbiology Results: Microbiology 04/25/25 16:53 Blood - Venous Blood Culture - Preliminary No growth after 24 hours. 04/25/25 16:41 Blood - Venous Blood Culture - Preliminary No growth after 24 hours. 04/26/25 09:01 Tracheal Aspirate Gram Stain - Final 04/25/25 21:34 Trachea Gram Stain - Final 04/25/25 21:34 Trachea Sputum Culture - Preliminary Culture in progress. Progress Note: A&P Assessment and plan (1) Generalized anxiety disorder: Status: Acute (2) Essential hypertension: Status: Acute (3) CHF exacerbation: Status: Acute (4) Cor pulmonale: Status: Acute (5) Pulmonary hypertension: Status: Acute (6) Diabetes mellitus: Status: Acute (7) Hypothyroidism: Status: Acute (8) CKD (chronic kidney disease): Status: Acute (9) Bilateral hydronephrosis: Status: Acute (10) Renal insufficiency: Status: Acute (11) Hematuria: Status: Acute (12) Acute hyperkalemia: Status: Acute (13) Urinary retention: Status: Acute (14) Urinary tract infection associated with catheterization of urinary tract: Status: Acute (15) Urinary tract infection associated with indwelling urethral catheter: Status: Acute (16) Gram-negative bacteremia: Status: Acute (17) Venous stasis dermatitis: Status: Acute (18) Obesity hypoventilation syndrome: Status: Acute (19) Pneumonitis: Status: Acute Plan The plan is to stop the vancomycin and then I am stopping propofol if she improves with very gentle dexmedetomidine which will probably be limited because of her sinus bradycardia but have but if she were to develop cognitive function I would try pressure support with her she may wind up being in need of chronic CPAP therapy Quality Stroke Does the patient have a stroke diagnosis?: No VTE Prior VTE?: No VTE Risk Level:: Medical - moderate - high VTE Device Contraindication: N/A - Device Ordered VTE Drug Contraindication: N/A - Med Ordered
[2025-04-27] MEDS: dexmedeTOMIDine HCL/NS 400 MCG/100 ML PLAST..BAG IVCONT (08:36)
[2025-04-27] MEDS: Chlorhexidine Gluc Oral Rinse 15 ML MOUTHWASH BUCCAL (08:45)
[2025-04-27] MEDS: Ammonium Lactate 12 % Lotion 226 GM BOTTLE 1 APPL TOPICAL ×2 (09:21→20:24)
[2025-04-27 11:52] LABS: Glucose, Whole Blood 106 mg/dL (60-115)
--- NOTE | 2025-04-27 14:18 | MHC.CM.PN ---
Pt remains intubated in ICU: MD to begin weaning process: Pt is from [facility] and will need to return for continued post acute care. Referral has been made. CM to follow
--- NOTE | 2025-04-27 15:29 | PC.NURSE ---
Assumed care @ 0700? Neur/Resp:Alert & Oriented x2 , self & place.?Extubated today approx @ 1440, Now on EVAP, anxious requiring frequent redirection.? Cardiac: Sinus Bradycardia on tele GI: LBM 7/2 , +bowel sounds, NPO, POC Q6hr, : Moyer in place, patent /draining. Skin: ?Impaired skin integrity - see skin assessment (repositioning maintained)? Infectious: IV antibiotics? Lines:peripheral IVS x2.
[2025-04-27 17:48] LABS: Glucose, Whole Blood 100 mg/dL (60-115)
[2025-04-27 23:40] LABS: Glucose, Whole Blood 97 mg/dL (60-115)
[2025-04-28] VITALS (33 sets, daily range): BP systolic 99–150; BP diastolic 31–63; PULSE 50–97; RESP 14–39; TEMP 36.2–36.9; O2SAT 85–100; BMI 36.4
[2025-04-28] MEDS: Albuterol Sulfate (0.083%) 2.5 MG/3 ML VIAL.NEB INHALE (00:04)
--- NOTE | 2025-04-28 01:29 | PM.EVENT ---
Event Note Date of Service: 04/28/25 Event Note: Hypotension related to sedation. No evidence of septic shock Time Spent With Patient Time: Total time managing care of this patient today ____ minutes.
[2025-04-28 04:33] LABS: VBG HCO3 39 mmol/L (22-26); VBG O2 % Saturation 89.0 %
[2025-04-28 04:36] LABS: Venous Blood Gas Refer to POC result
[2025-04-28 04:54] LABS: MANUAL DIFF FLAG NO
[2025-04-28 04:55] LABS: Hematocrit 28.4 % (37.0-47.0); Hemoglobin 8.3 g/dl (12.0-16.0); Imm Gran Abs Auto 0.06 X10*3/uL (0.00-0.03); Imm Gran Pct Auto 1.0 % (0.0-0.4); Lymphocytes Absolute Auto 0.3 X10*3/uL (1.2-4.9); Mean Corpuscular HGB Conc 29.2 g/dl (31.0-35.0); Mean Corpuscular Hemoglobin 27.6 pg (27.0-33.0); Mean Corpuscular Volume 94.4 fL (80.0-98.0); NRBC Abs Auto 0.000 X10*3/uL (0.0-0.012); NRBC Pct Auto 0.0 /100WBC (0.0-0.2); Platelet Count 261 X10*3/uL (160-400); Red Blood Count 3.01 X10*6/uL (4.20-5.50); White Blood Count 6.2 X10*3/uL (4.8-10.8)
[2025-04-28 05:15] LABS: Albumin Level 3.0 g/dL (3.5-5.0); Anion Gap 20 (12-20); Blood Urea Nitrogen 68 mg/dL (9-16); Calcium 7.7 mg/dL (8.4-10.2); Carbon Dioxide 32 mmol/L (22-29); Chloride 104 mmol/L (96-108); Creatinine Clr Calc Pharmacy 30.2; Estimated Glomerular Filt Rate 29; Magnesium 2.3 mg/dL (1.6-2.6); Potassium 3.5 mmol/L (3.3-5.1); Sodium 152 mmol/L (135-145)
[2025-04-28] MEDS: Albuterol/Iprat 2.5/0.5MG 3 ML AMPUL.NEB INHALE ×4 (08:05→18:53)
[2025-04-28] MEDS: 0.9 % Sodium Chloride Flush 3 ML SYRINGE IVFLUSH ×3 (08:07→15:38)
[2025-04-28] MEDS: Ammonium Lactate 12 % Lotion 226 GM BOTTLE 1 APPL TOPICAL ×2 (08:15→20:37)
--- NOTE | 2025-04-28 08:56 | MHC.OT.ID ---
OT NOT APPROPRIATE AT THIS TIME DUE TO PT STATUS - INTUBATED 04/28. PT WILL BE RE-EVALUATED FOLLOWING EXTUBATION - OT RETURNING ON [address] [phone] F: [phone] Occupational Therapy Inpatient Daily Note Patient Name: Radhika Vaca Start Time: End Time: Visit Duration: Billable Time: Pain Score: Pain Location: Self-Care Feeding: Grooming: Washing: Dressing: Toileting: Functional Mobility Bed Mobility: Transfers: Ambulation: Therapeutic Activities IADL/Homecare: Balance: Unable to assess- Intubated/sedated Therapeutic Exercise: Cognition: Assessment Assessment: Plan Plan of Care: D/C Today: Electronically Signed By: Reviewed/agree with student documentation: Therapist: DESIRE GAUTHIER OTRowan/Alex
[2025-04-28 11:18] LABS: Glucose, Whole Blood 80 mg/dL (60-115)
--- NOTE | 2025-04-28 14:50 | MHC.CLN ---
F/U PATIENT EXTUBATED 04/27. CONTINUES NPO. FOLLOW FOR DIET ADVANCEMENT.
[2025-04-28 17:58] LABS: Glucose, Whole Blood 97 mg/dL (60-115)
--- NOTE | 2025-04-28 18:37 | PM.CCPN ---
Subjective Subjective Date of Service: 04/28/25 Interval History: 79-year-old morbidly obese with background of obesity hypoventilation syndrome presented with altered mental status and acute on chronic hypercarbic respiratory failure from pneumonia which turned out to be Pseudomonas and sensitive to the piperacillin and she was successfully extubated but requires p.r.n. BiPAP essentially through a nasal mask and frequent help with expectoration but shouts out as a true addict the no looking for pain medication and looking for her Ativan that is a round the clock 24 hour issue with her she very much dependent She passed the swallow examination and is on a diet which she is tolerating Critical Care Time (minutes): 35 Physical Exam Vital Signs: Vital Signs: Last Vital Signs Temp 98.4 F 04/28/25 16:00 Pulse 66 04/28/25 18:00 Resp 23 H 04/28/25 18:00 BP 121/45 L 04/28/25 18:00 Pulse Ox 97 04/28/25 18:00 O2 Del Method Oxymask 04/28/25 18:00 O2 Flow Rate 2 04/28/25 18:00 FiO2 30 04/28/25 08:00 BMI result Body Mass Index 36.4 Awake alert nonfocal neurologically Skin is intact no rashes Abdomen obese but nontender no organomegaly Chest with minimal scattered bilateral rales no wheezes Cardiac exam essentially normal by bedside echo Objective Data Labs 04/29/25 04:26 04/29/25 04:27 Labs: Laboratory Results - last 24 hr 04/27/25 04/28/25 04/28/25 23:20 04:19 04:29 WBC 6.2 RBC 3.01 L Hgb 8.3 L Hct 28.4 L MCV 94.4 MCH 27.6 MCHC 29.2 L RDW 17.2 H Plt Count 261 MPV 9.2 L Immature Gran % (Auto) 1.0 H Neut % (Auto) 84.2 H Lymph % (Auto) 5.5 L Sanders % (Auto) 5.6 Eos % (Auto) 3.2 Baso % (Auto) 0.5 Lymph # (Auto) 0.3 L [place] # (Auto) 0.4 Eos # (Auto) 0.2 Baso # (Auto) 0.0 Abs Immat Gran (auto) 0.06 H Absolute Neuts (auto) 5.2 Absolute Nucleated RBC 0.000 Nucleated RBC % (auto) 0.0 VBG pH 7.46 H VBG pCO2 55 VBG pO2 65 VBG HCO3 39 H VBG O2 Saturation 89.0 VBG Base Excess 14.2 Sodium 152 H Potassium 3.5 Chloride 104 Carbon Dioxide 32 H Anion Gap 20 BUN 68 H Creatinine 1.73 H Estim Creat Clear Calc 30.2 Estimated GFR 29 POC Glucose 97 Random Glucose 89 Calcium 7.7 L Phosphorus 3.3 Magnesium 2.3 Albumin 3.0 L 04/28/25 04/28/25 11:15 17:36 WBC RBC Hgb Hct MCV MCH MCHC RDW Plt Count MPV Immature Gran % (Auto) Neut % (Auto) Lymph % (Auto) [place] % (Auto) Eos % (Auto) Baso % (Auto) Lymph # (Auto) [place] # (Auto) Eos # (Auto) Baso # (Auto) Abs Immat Gran (auto) Absolute Neuts (auto) Absolute Nucleated RBC Nucleated RBC % (auto) VBG pH VBG pCO2 VBG pO2 VBG HCO3 VBG O2 Saturation VBG Base Excess Sodium Potassium Chloride Carbon Dioxide Anion Gap BUN Creatinine Estim Creat Clear Calc Estimated GFR POC Glucose 80 97 Random Glucose Calcium Phosphorus Magnesium Albumin Microbiology Microbiology Results: Microbiology 04/25/25 22:23 Urine Catheterized - Moyer Catheter Urine Culture - Preliminary Yeast 04/26/25 09:01 Tracheal Aspirate Gram Stain - Final 04/26/25 09:01 Tracheal Aspirate Sputum Culture - Preliminary Gram negative eve 04/25/25 21:34 Trachea Gram Stain - Final 04/25/25 21:34 Trachea Sputum Culture - Final Pseudomonas aeruginosa 04/25/25 16:53 Blood - Venous Blood Culture - Preliminary No growth after 48 hours. 04/25/25 16:41 Blood - Venous Blood Culture - Preliminary No growth after 48 hours. Progress Note: A&P Assessment and plan (1) Generalized anxiety disorder: Status: Acute (2) Essential hypertension: Status: Acute (3) Cor pulmonale: Status: Acute (4) Pulmonary hypertension: Status: Acute (5) Venous stasis dermatitis: Status: Acute (6) Pure hypercholesterolemia: Status: Acute (7) Diabetes mellitus: Status: Acute (8) Hypothyroidism: Status: Acute (9) CKD (chronic kidney disease): Status: Acute (10) Bilateral hydronephrosis: Status: Acute (11) Renal insufficiency: Status: Acute (12) Hematuria: Status: Acute (13) Acute hyperkalemia: Status: Acute (14) Urinary retention: Status: Acute (15) Urinary tract infection associated with catheterization of urinary tract: Status: Acute (16) Skin ulcer of sacral region: Status: Acute (17) Gram-negative bacteremia: Status: Acute (18) Open wound: Status: Acute (19) Altered mental status: Status: Acute (20) Chronic pain syndrome: Status: Acute (21) Lumbar degenerative disc disease: Status: Acute (22) Hypercapnic respiratory failure: Status: Acute (23) Acute on chronic respiratory failure: Status: Acute (24) COPD exacerbation: Status: Acute (25) Acute on chronic respiratory failure with hypoxia and hypercapnia: Status: Acute (26) COPD (chronic obstructive pulmonary disease): Status: Acute (27) Pleural effusion associated with pulmonary infection: Status: Acute (28) Atelectasis: Status: Acute (29) Pneumonitis: Status: Acute (30) Obesity hypoventilation syndrome: Status: Acute (31) HK (hyperkeratosis): Status: Acute (32) Indwelling Moyer catheter present: Status: Acute Plan Basically doing well but requires being out in a chair because of her marked central obesity and needs prn BiPAP and the continuation of the piperacillin or she could be switched to an oral medication that is suits the sensitivity of the Pseudomonas growing from the sputum in addition needs some help and probably would need most especially to prevent withdrawal but also for behavior control to be on a small dose of benzodiazepine but I do believe that that in combination with her demand the no for opiates for chronic pain syndrome is deadly when combined with the benzodiazepine and some alternative for pain should be devised Quality Stroke Does the patient have a stroke diagnosis?: No VTE Prior VTE?: No VTE Risk Level:: Medical - moderate - high VTE Device Contraindication: N/A - Device Ordered VTE Drug Contraindication: N/A - Med Ordered
[2025-04-29] VITALS (19 sets, daily range): BP systolic 99–142; BP diastolic 39–65; PULSE 55–98; RESP 15–28; TEMP 36.1–36.5; O2SAT 64–100; BMI 36.4; BMI 39.9
[2025-04-29 00:12] LABS: Glucose, Whole Blood 100 mg/dL (60-115)
[2025-04-29] MEDS: 0.9 % Sodium Chloride Flush 3 ML SYRINGE IVFLUSH ×4 (00:24→21:17)
[2025-04-29 04:37] LABS: VBG HCO3 40 mmol/L (22-26); VBG O2 % Saturation 94.0 %
[2025-04-29 05:00] LABS: MANUAL DIFF FLAG NO
[2025-04-29 05:05] LABS: Hematocrit 27.5 % (37.0-47.0); Hemoglobin 8.1 g/dl (12.0-16.0); Imm Gran Abs Auto 0.07 X10*3/uL (0.00-0.03); Imm Gran Pct Auto 1.0 % (0.0-0.4); Lymphocytes Absolute Auto 0.4 X10*3/uL (1.2-4.9); Mean Corpuscular HGB Conc 29.5 g/dl (31.0-35.0); Mean Corpuscular Hemoglobin 28.2 pg (27.0-33.0); Mean Corpuscular Volume 95.8 fL (80.0-98.0); NRBC Abs Auto 0.000 X10*3/uL (0.0-0.012); NRBC Pct Auto 0.0 /100WBC (0.0-0.2); Platelet Count 269 X10*3/uL (160-400); Red Blood Count 2.87 X10*6/uL (4.20-5.50); White Blood Count 6.9 X10*3/uL (4.8-10.8)
[2025-04-29 05:19] LABS: Creatinine Clr Calc Pharmacy 30.9; Estimated Glomerular Filt Rate 30
[2025-04-29 05:21] LABS: Albumin Level 3.0 g/dL (3.5-5.0); Anion Gap 21 (12-20); Blood Urea Nitrogen 60 mg/dL (9-16); Calcium 7.8 mg/dL (8.4-10.2); Carbon Dioxide 31 mmol/L (22-29); Chloride 104 mmol/L (96-108); Creatinine Clr Calc Pharmacy 30.6; Estimated Glomerular Filt Rate 30; Magnesium 2.1 mg/dL (1.6-2.6); Potassium 3.7 mmol/L (3.3-5.1); Sodium 152 mmol/L (135-145)
[2025-04-29] MEDS: Albuterol/Iprat 2.5/0.5MG 3 ML AMPUL.NEB INHALE ×3 (07:55→15:29)
--- NOTE | 2025-04-29 07:57 | PC.NURSE ---
pt alert and oriented x3, lacks insight into the current situation with pt having a very anxious affect. She c/o 10/10 pain to bilateral knees and asked for tylenol. Use for this pain was approved by SHOE TREER Adryan Glaser. Pt later stated she takes Ativan for pain as well and pt had persistant anxiety. SHOE TREER aware and one time ativan given with good effect. Pt slept reasonably well but initially stated she would not be sleeping because she is scared and has nightmares. She was reassured, reoriented to safety precautions in place for monitoring. constant dough brake machine operator at bedside and pt slept most of the night but with several brief periods of wakefulness. Pt given pills crushed in thickened liquids. she stated after that it was difficult to swallow water and further PO held pending speech swallow eval. SHOE TREER aware. Pt this am came off Ivaps this am and was on 4L oxymask. sats noted at 98% and titrated down to 2L. with sats 94%. Pt reported sob and L sided chest pain reproducable with deep breath, cough, and palpation. MD aware and stating he wants her to get up to a chair today and work with PT. Pt reassured and oncoming RN aware.
[2025-04-29] MEDS: Ammonium Lactate 12 % Lotion 226 GM BOTTLE 1 APPL TOPICAL ×2 (08:08→23:30)
[2025-04-29 09:22] LABS: Venous Blood Gas Refer to POC result
[2025-04-29 11:42] LABS: Glucose, Whole Blood 138 mg/dL (60-115)
--- NOTE | 2025-04-29 11:58 | MHC.SL.SWA ---
Speech Pathologist Impression: Risk of Aspiration Due to: Vulnerable respiratory status, mild oral pharyngeal phase dysphagia Dysphasia Diet Status: Liquid Consistency and Strategies for Safe Swallow: Liquid Intake Recommendation: [place] Thick Liquid Intake Strategies: Solid Food Consistency: Dietary Recommendations: Chopped/Advanced (NDD3) Additional Modifications to Solid Foods: Oral Medication Intake: Whole with Puree Please contact the pharmacy regarding appropriate crushable or liquid drug formulations that are available whenever modified delivery is recommended. Compensatory Strategies and Precautions to be Taken for Safe Swallow: Supervision While Eating and Drinking for Safe Swallow: Direct Supervision (1:1) Foods to Avoid: Tough, difficult to chew solids Swallowing Recommended Treatments: Recommendation for Speech: Inpatient Speech Therapy Comment: Patient presents with a mild oral pharyngeal phase dysphagia, with absent swallow trigger, and minimal dentition. Patient further has vulnerable respiratory status, putting her at risk for aspiration. Patient is highly anxious, but also noted to be impulsive with food/drink, and requires monitoring and cuing to eat/drink slowly and in small bites and sips. Recommend UPGRADE diet to Chopped/Advanced (NDD3) with [place] THICK liquids (straw is ok if patient takes individual sips), pills whole in puree. Monitor patient during meals for adequate 02 saturation, rate of intake, and clinical signs of aspiration. BORING MACHINE OPERATOR will continue to follow to assure toleration of diet, possible upgrade on re-assessment. , RN notified of recommendations in person. Frequency/Duration: Date Range for Service Req: Timeline to reassess: Returned Goods Receiving Clerk Clinican/Clinical Fellow: No Supervisory Statement: I have reviewed and agree with the student/clinical fellow's documentation: N/A Speech Language Pathologist: Kary Dia M.A., [facility]-BORING MACHINE OPERATOR
[2025-04-29 18:08] LABS: Glucose, Whole Blood 193 mg/dL (60-115)
[2025-04-29 21:22] LABS: Glucose, Whole Blood 167 mg/dL (60-115)
[2025-04-30] VITALS (12 sets, daily range): BP systolic 109–140; BP diastolic 40–67; PULSE 62–84; RESP 17–30; TEMP 36.4–36.8; O2SAT 90–100
[2025-04-30] MEDS: Albuterol Sulfate (0.083%) 2.5 MG/3 ML VIAL.NEB INHALE (01:05)
[2025-04-30 07:38] LABS: Glucose, Whole Blood 160 mg/dL (60-115)
[2025-04-30] MEDS: Albuterol/Iprat 2.5/0.5MG 3 ML AMPUL.NEB INHALE ×4 (07:38→20:33)
[2025-04-30] MEDS: 0.9 % Sodium Chloride Flush 3 ML SYRINGE IVFLUSH ×3 (08:25→20:31)
[2025-04-30] MEDS: Ammonium Lactate 12 % Lotion 226 GM BOTTLE 1 APPL TOPICAL ×2 (08:32→20:27)
--- NOTE | 2025-04-30 10:19 | P.PNIM_ITS ---
Subjective Subjective Date of Service: 04/30/25 Interval History: f/u on acute hypoxic respriatory failure due to pneumonia doing better, no sob at the present Physical Exam 2 Vital Signs: Vital Signs: Last Vital Signs Temp 97.5 F 04/30/25 07:57 Pulse 67 04/30/25 07:57 Resp 20 04/30/25 07:57 BP 116/51 L 04/30/25 07:57 Pulse Ox 99 04/30/25 07:57 O2 Del Method Oxymask 04/30/25 07:57 O2 Flow Rate 5 04/30/25 07:57 FiO2 35 04/29/25 12:00 Oxygen Flow Rate 1 04/30/25 00:00 BMI result Body Mass Index 39.9 Const: Other: General: AO X 3, no acute distress Resp: CTA bilateral CVS: S1,S2,RRR GI: +BS, NT, no distention Skin: No rash Neuro: motor grossly intact Psych: appropriate affect Objective Data Active Medications Acetaminophen (Acetaminophen 325 Mg Tablet) 650 mg PO Q6H PRN PRN Reason: Fever >101 Last Admin: 04/30/25 08:23 Dose: 650 mg Documented By: TOVA Albuterol Sulfate (Albuterol Sulfate (0.083%) 2.5 Mg/3 Ml Vial.Neb) 2.5 mg INHALE Q4H PRN PRN Reason: Shortness of Breath/Wheezing Last Admin: 04/30/25 01:05 Dose: 2.5 mg Documented By: VARSHA Albuterol/Ipratropium (Albuterol/Iprat 2.5/0.5mg 3 Ml Ampul.Neb) 3 ml INHALE RQ4H WHILE AWAKE [facility] Last Admin: 04/30/25 07:38 Dose: 3 ml Documented By: KATRINA Atorvastatin Calcium (Atorvastatin Calcium 40 Mg Tablet) 40 mg PO BEDTIME GEO Last Admin: 04/29/25 21:15 Dose: 40 mg Documented By: CINTHIA-DESSK Dextrose (Dextrose 50 % 25 Gm/50 Ml Syringe) 25 gm IVPUSH Q15M PRN; Protocol PRN Reason: per Hypoglycemia Standing Ord. Last Admin: 04/27/25 01:38 Dose: 25 gm Documented By: FLAKITOUMOC Dextrose (Dextrose 50 % 25 Gm/50 Ml Syringe) 25 gm IVPUSH Q15M PRN; Protocol PRN Reason: per Hypoglycemia Standing Ord. Famotidine (Famotidine/Pf 20 Mg/2 Ml Vial) 20 mg IVPUSH BID [facility] Last Admin: 04/30/25 08:25 Dose: 20 mg Documented By: TOVA Gemfibrozil (Gemfibrozil 600 Mg Tablet) 600 mg PO BID [facility] Last Admin: 04/30/25 08:23 Dose: 600 mg Documented By: TOVA Glucose (Glucose Gel 15 Gm Gel..Gram.) 15 gm PO Q15M PRN; Protocol PRN Reason: per Hypoglycemia Standing Ord. Heparin Sodium (Porcine) (Heparin Sodium,Porcine 5,000 Unit/Ml Vial) 5,000 unit SUBCUT Q12H [facility] Last Admin: 04/30/25 04:35 Dose: 5,000 unit Documented By: ELIZABETH Insulin Human Lispro (Insulin Lispro 100 Unit/Ml 3 Ml Vial) 0 unit SUBCUT Q6H [facility]; Protocol Last Admin: 04/30/25 05:51 Dose: Not Given Documented By: ELIZABETH Non-Admin Reason: See Note Comments: Order changed to QID Insulin Human Lispro (Insulin Lispro 100 Unit/Ml 3 Ml Vial) 0 unit SUBCUT QIDACHS [facility]; Protocol Last Admin: 04/30/25 08:24 Dose: 2 unit Documented By: TOVA Lactic Acid (Ammonium Lactate 12 % Lotion 226 Gm Bottle) 1 appl TOPICAL BID [facility]; Protocol Last Admin: 04/30/25 08:32 Dose: 1 appl Documented By: TOVA Levofloxacin (Levofloxacin 750 Mg Tablet) 750 mg PO Q48H [facility] Levothyroxine Sodium (Levothyroxine Sodium 200 Mcg Tablet) 200 mcg PO DAILY@0600 [facility] Last Admin: 04/30/25 08:23 Dose: 200 mcg Documented By: TOVA Lorazepam (Lorazepam 1 Mg Tablet) 1 mg PO Q6H PRN PRN Reason: Anxiety Last Admin: 04/29/25 21:21 Dose: 1 mg Documented By: ELIZABETH Nystatin (Nystatin Powder 15 Gm Bottle) 1 appl TOPICAL TID [facility]; Protocol Last Admin: 04/30/25 08:33 Dose: 1 appl Documented By: HO.RICCIAV Sodium Chloride (0.9 % Sodium Chloride Flush 3 Ml Syringe) 3 ml IVFLUSH QSHIFT [facility] Last Admin: 04/30/25 08:25 Dose: 3 ml Documented By: RICCIAV Labs 04/29/25 04:26 04/29/25 04:27 Labs: Laboratory Results - last 24 hr 04/29/25 04/29/25 04/29/25 11:34 18:03 21:13 POC Glucose 138 H 193 H 167 H 04/30/25 07:30 POC Glucose 160 H Microbiology Microbiology Results: Microbiology 04/25/25 22:23 Urine Culture - Preliminary Urine Catheterized - Moyer Catheter Yeast 04/26/25 09:01 Gram Stain - Final Tracheal Aspirate Sputum Culture - Final Pseudomonas aeruginosa Methicillin Res Staph Aureus Assessment and Plan (1) COPD (chronic obstructive pulmonary disease): Status: Acute (2) Acute on chronic respiratory failure: Status: Acute (3) Pneumonitis: Status: Acute Plan 79F PMH chronic hypoxic respiratory failure on 2 L home O2 due to COPD, morbid obesity with obstructive sleep apnea noncompliant with CPAP, chronic right-sided and diastolic CHF, CKD 4, diabetes, hypertension, hyperlipidemia presented on 04/25 with shortness of breath and hypoxia and was intubabated and mechanically ventilated and admitted to the ICU where she was treated with PNA with sputum culture growing MRSA and Pseudomoas, extubated and trialed on NIPPV and transferred to medical floor on 04/29 Acute hypoxic resp failure, related to pseudomonas and MRSA PNA, copd s/p mechanical ventilation NIPPV as need and at night continue O2, goal of 88 to 92 Treat underlying PNA with Doxyc and Levaquin continue bronchodilators Diabetes Insulin HLD statin, lopid CKD 3, stable Hypothyroid Levothyroxine Morbid obesity/TEZ CPAP at night, weight loss deconditioning - PT eval DVT prophylaxis with heparin Full Code Quality Stroke Does the patient have a stroke diagnosis?: No VTE Prior VTE?: No VTE Risk Level:: Medical - moderate - high VTE Device Contraindication: N/A - Device Ordered VTE Drug Contraindication: N/A - Med Ordered
[2025-04-30 11:24] LABS: Glucose, Whole Blood 222 mg/dL (60-115)
[2025-04-30 15:31] LABS: Glucose, Whole Blood 162 mg/dL (60-115)
[2025-04-30 21:00] LABS: Glucose, Whole Blood 153 mg/dL (60-115)
[2025-05-01] VITALS (12 sets, daily range): BP systolic 103–141; BP diastolic 46–66; PULSE 65–84; RESP 15–25; TEMP 36.1–36.7; O2SAT 88–100
[2025-05-01] MEDS: Albuterol Sulfate (0.083%) 2.5 MG/3 ML VIAL.NEB INHALE ×2 (04:34→23:23)
[2025-05-01 07:40] LABS: Glucose, Whole Blood 161 mg/dL (60-115)
[2025-05-01] MEDS: Albuterol/Iprat 2.5/0.5MG 3 ML AMPUL.NEB INHALE ×4 (08:12→19:45)
--- NOTE | 2025-05-01 08:48 | HO.PM.IMPN ---
Subjective Subjective Date of Service: 05/01/25 Interval History: f/u on acute hypoxic respriatory failure due to pneumonia with underlying chronic respiratory failure, 02 dependent due to COPD Physical Exam Vital Signs: Vital Signs: Last Vital Signs Temp 97.7 F 05/01/25 07:56 Pulse 78 05/01/25 08:13 Resp 19 05/01/25 08:13 BP 103/46 L 05/01/25 07:56 Pulse Ox 96 05/01/25 07:56 O2 Del Method Nasal Cannula 05/01/25 07:56 O2 Flow Rate 2 05/01/25 07:56 FiO2 35 05/01/25 00:00 Oxygen Flow Rate 1 04/30/25 00:00 BMI result Body Mass Index 39.9 Const: Other: General: AO X 3, no acute distress Resp: CTA bilateral CVS: S1,S2,RRR GI: +BS, NT, no distention Skin: No rash Neuro: motor grossly intact Psych: appropriate affect Objective Data Active Medications Acetaminophen (Acetaminophen 325 Mg Tablet) 650 mg PO Q6H PRN PRN Reason: Fever >101 Last Admin: 04/30/25 08:23 Dose: 650 mg Documented By: TOVA Albuterol Sulfate (Albuterol Sulfate (0.083%) 2.5 Mg/3 Ml Vial.Neb) 2.5 mg INHALE Q4H PRN PRN Reason: Shortness of Breath/Wheezing Last Admin: 05/01/25 04:34 Dose: 2.5 mg Documented By: OH Albuterol/Ipratropium (Albuterol/Iprat 2.5/0.5mg 3 Ml Ampul.Neb) 3 ml INHALE RQ4H WHILE AWAKE [facility] Last Admin: 05/01/25 08:12 Dose: 3 ml Documented By: RAHEL Atorvastatin Calcium (Atorvastatin Calcium 40 Mg Tablet) 40 mg PO BEDTIME GEO Last Admin: 04/30/25 20:27 Dose: 40 mg Documented By: THERON Dextrose (Dextrose 50 % 25 Gm/50 Ml Syringe) 25 gm IVPUSH Q15M PRN; Protocol PRN Reason: per Hypoglycemia Standing Ord. Last Admin: 04/27/25 01:38 Dose: 25 gm Documented By: TRUE Dextrose (Dextrose 50 % 25 Gm/50 Ml Syringe) 25 gm IVPUSH Q15M PRN; Protocol PRN Reason: per Hypoglycemia Standing Ord. Doxycycline Monohydrate (Doxycycline Monohydrate 100 Mg Capsule) 100 mg PO Q12H [facility] Last Admin: 05/01/25 00:13 Dose: 100 mg Documented By: THERON Famotidine (Famotidine/Pf 20 Mg/2 Ml Vial) 20 mg IVPUSH BID [facility] Last Admin: 04/30/25 20:27 Dose: 20 mg Documented By: THERON Gemfibrozil (Gemfibrozil 600 Mg Tablet) 600 mg PO BID [facility] Last Admin: 04/30/25 20:27 Dose: 600 mg Documented By: THERON Glucose (Glucose Gel 15 Gm Gel..Gram.) 15 gm PO Q15M PRN; Protocol PRN Reason: per Hypoglycemia Standing Ord. Heparin Sodium (Porcine) (Heparin Sodium,Porcine 5,000 Unit/Ml Vial) 5,000 unit SUBCUT Q12H [facility] Last Admin: 05/01/25 05:00 Dose: 5,000 unit Documented By: THERON Insulin Human Lispro (Insulin Lispro 100 Unit/Ml 3 Ml Vial) 0 unit SUBCUT QIDACHS [facility]; Protocol Last Admin: 05/01/25 07:47 Dose: 2 unit Documented By: MELISSA Lactic Acid (Ammonium Lactate 12 % Lotion 226 Gm Bottle) 1 appl TOPICAL BID [facility]; Protocol Last Admin: 04/30/25 20:27 Dose: 1 appl Documented By: THERON Levofloxacin (Levofloxacin 750 Mg Tablet) 750 mg PO Q48H [facility] Levothyroxine Sodium (Levothyroxine Sodium 200 Mcg Tablet) 200 mcg PO DAILY@0600 [facility] Last Admin: 05/01/25 05:00 Dose: 200 mcg Documented By: THERON Lorazepam (Lorazepam 1 Mg Tablet) 1 mg PO Q6H PRN PRN Reason: Anxiety Last Admin: 05/01/25 04:50 Dose: 1 mg Documented By: THERON Nystatin (Nystatin Powder 15 Gm Bottle) 1 appl TOPICAL TID [facility]; Protocol Last Admin: 04/30/25 20:28 Dose: 1 appl Documented By: THERON Sodium Chloride (0.9 % Sodium Chloride Flush 3 Ml Syringe) 3 ml IVFLUSH QSHIFT [facility] Last Admin: 04/30/25 20:31 Dose: 3 ml Documented By: THERON Tramadol HCl (Tramadol Hcl 50 Mg Tablet) 25 mg PO Q6H PRN PRN Reason: Pain, Severe (Pain Scale 7-10) Last Admin: 05/01/25 04:52 Dose: 25 mg Documented By: THERON Labs 04/29/25 04:26 04/29/25 04:27 Labs: Laboratory Results - last 24 hr 04/30/25 04/30/25 04/30/25 11:14 15:23 20:52 POC Glucose 222 H 162 H 153 H 05/01/25 07:34 POC Glucose 161 H Microbiology Microbiology Results: Microbiology 04/25/25 16:53 Blood Culture - Final Blood - Venous No growth after 5 days. 04/25/25 16:41 Blood Culture - Final Blood - Venous No growth after 5 days. 04/25/25 22:23 Urine Culture - Preliminary Urine Catheterized - Moyer Catheter Yeast 04/26/25 09:01 Gram Stain - Final Tracheal Aspirate Sputum Culture - Final Pseudomonas aeruginosa Methicillin Res Staph Aureus Assessment and Plan (1) COPD (chronic obstructive pulmonary disease): Status: Acute (2) Acute on chronic respiratory failure: Status: Acute (3) Pneumonitis: Status: Acute Plan 79F PMH chronic hypoxic respiratory failure on 2 L home O2 due to COPD, morbid obesity with obstructive sleep apnea noncompliant with CPAP, chronic right-sided and diastolic CHF, CKD 4, diabetes, hypertension, hyperlipidemia presented on 04/25 with shortness of breath and hypoxia and was intubabated and mechanically ventilated and admitted to the ICU where she was treated with PNA with sputum culture growing MRSA and Pseudomoas, extubated and trialed on NIPPV and transferred to medical floor on 04/29 Acute hypoxic resp failure, related to pseudomonas and MRSA PNA, copd s/p mechanical ventilation NIPPV as need and at night continue O2, goal of 88 to 92 Treat underlying PNA with Doxyc and Levaquin continue bronchodilators Diabetes Insulin HLD statin, lopid CKD 3, stable Hypothyroid Levothyroxine Morbid obesity/TEZ CPAP at night, weight loss deconditioning - PT eval DVT prophylaxis with heparin Full Code Quality Stroke Does the patient have a stroke diagnosis?: No VTE Prior VTE?: No VTE Risk Level:: Medical - moderate - high VTE Device Contraindication: N/A - Device Ordered VTE Drug Contraindication: N/A - Med Ordered
[2025-05-01] MEDS: 0.9 % Sodium Chloride Flush 3 ML SYRINGE IVFLUSH ×2 (09:28→16:42)
[2025-05-01] MEDS: Ammonium Lactate 12 % Lotion 226 GM BOTTLE 1 APPL TOPICAL ×2 (09:29→22:20)
[2025-05-01 11:43] LABS: Glucose, Whole Blood 251 mg/dL (60-115)
--- NOTE | 2025-05-01 13:36 | MHC.SL.SWA ---
Speech Pathologist Impression: Mild oropharyngeal dysphagia secondary to missing dentition and respiratory status (pt on 3L O2 via NC, sating at 94% with PO intake) Risk of Aspiration Due to: Respiratory status Weakness Dysphasia Diet Status: NDD3 with THINS, aspiration precautions Liquid Consistency and Strategies for Safe Swallow: Liquid Intake Recommendation: [place] Thick Liquid Intake Strategies: Solid Food Consistency: Dietary Recommendations: Chopped/Advanced (NDD3) Additional Modifications to Solid Foods: Oral Medication Intake: Whole with Puree Please contact the pharmacy regarding appropriate crushable or liquid drug formulations that are available whenever modified delivery is recommended. Compensatory Strategies and Precautions to be Taken for Safe Swallow: Sitting Upright (90 deg) Small Bites and Sips Alternate Liquids/Solids Rate of Ingestion Change Supervision While Eating and Drinking for Safe Swallow: Direct Supervision (1:1) Foods to Avoid: Tough, difficult to chew solids Swallowing Recommended Treatments: Compens. Strategy Educat. Recommendation for Speech: Inpatient Speech Therapy Comment: Pt seen for dysphagia treatment. Pt sitting upright in bed with 3L of O2 via NC. Pt reported she is always on 3L at home and expressed worry that she should not be on less. MD and RN notified of pt concerns. Pt tolerating NDD3 without difficulty. Pt trialed with thins to advance liquid consistency. Pt tolerated thins without difficulty. No overt s/s of aspiration with chopped solids (moistened with gravy) and thin liquids. Recc upgrade to thins, NDD3 unchanged. Frequency/Duration: Date Range for Service Req: Timeline to reassess: Marketing Strategist Clinican/Clinical Fellow: No Supervisory Statement: I have reviewed and agree with the student/clinical fellow's documentation: N/A Speech Language Pathologist: Doreen Younger M.S., CCC-DICTATING MACHINE TRANSCRIBER
[2025-05-01 15:23] LABS: Glucose, Whole Blood 128 mg/dL (60-115)
--- NOTE | 2025-05-01 16:27 | MHC.CM.PN ---
EMR reviewed and per MD rounds, pt is not medically cleared for discharge, anticipating pt will be ready for discharge tomorrow and will plan to return to [facility] at [facility].
[2025-05-01 19:58] LABS: Anion Gap 17 (12-20); Blood Urea Nitrogen 62 mg/dL (9-16); Calcium 6.7 mg/dL (8.4-10.2); Carbon Dioxide 34 mmol/L (22-29); Chloride 98 mmol/L (96-108); Creatinine Clr Calc Pharmacy 23.2; Estimated Glomerular Filt Rate 20; Magnesium 1.7 mg/dL (1.6-2.6); Potassium 4.8 mmol/L (3.3-5.1); Sodium 144 mmol/L (135-145)
[2025-05-01 20:55] LABS: Glucose, Whole Blood 142 mg/dL (60-115)
[2025-05-02] VITALS (12 sets, daily range): BP systolic 109–145; BP diastolic 51–68; PULSE 68–79; RESP 16–20; TEMP 36.2–36.7; O2SAT 92–100
[2025-05-02] MEDS: Albuterol Sulfate (0.083%) 2.5 MG/3 ML VIAL.NEB INHALE (03:57)
[2025-05-02 08:09] LABS: Glucose, Whole Blood 132 mg/dL (60-115)
[2025-05-02] MEDS: Albuterol/Iprat 2.5/0.5MG 3 ML AMPUL.NEB INHALE ×4 (08:29→19:31)
[2025-05-02] MEDS: Ammonium Lactate 12 % Lotion 226 GM BOTTLE 1 APPL TOPICAL ×2 (09:47→21:00)
[2025-05-02 11:47] LABS: Glucose, Whole Blood 202 mg/dL (60-115)
--- NOTE | 2025-05-02 12:37 | PC.NURSE ---
attempted to contact facility to give report but no asnwer
--- NOTE | 2025-05-02 13:31 | MHC.CM.PN ---
Second IMM given 05/02. Pt is medically cleared for discharge to [facility] at [facility], pt decided she didn't want to return to [facility], they were notified. Pt will transport to [facility] via [facility].
--- NOTE | 2025-05-02 14:45 | P.DS_ITS ---
DS: Providers Provider Date of admission: 04/25/25 17:47 Primary care physician: Russ Shaw MD Consults: 04/25/25 20:57 Consult to Pulmonology Stat Consulting Provider: [facility] Reason for consultation: left upper and lower lobes collapse with shift of the mediastinum Has provider been notified: No DS: Diagnosis Discharge Diagnosis (1) Acute on chronic respiratory failure: Status: Resolved DS: Summary Hospital Course Hospital Course: admission hpi Chief Complaint: Acute respiratory distress 79-year-old female morbidly obese type 2 diabetic insulin-dependent with hypothyroidism chronic peripheral edema with associated overlying dermatitis and possible leg wound this potential source of infection along with chronic indwelling Moyer and a recent Enterococcus faecalis urinary tract infection brought in respiratory distress noted to be hypoxemic was on CPAP and then upgraded to BiPAP but distress remained a left thoracentesis was performed just a slightly serous sanguinous looking appearance to it grossly studies are pending and because of ongoing distress pH of 7.24 with pCO2 of 95 blood gas consistent with acute on chronic hypercarbic and hypoxic respiratory failure with secondary metabolic alkalosis patient was then intubated without complication CAT scan is pending and because the left leg is externally rotated and foreshortened we will get a hip x-ray in case there was a fall with trauma Also underlying history of COPD as we could tell along with CHF and I have not yet done a bedside echo Just prior to intubation she was hypotensive and blood pressure came up and the intubation was performed using 20 mg of etomidate and I believe rocuronium and again without complication Subsequent echocardiogram demonstrated normal LV and RV function but definite severe pulmonary h ypertension probably in the 70+/- range Time Attestation Discharge Coordination Time (in mins): 45 Quality: Safe Use of Opioids Does Pt have an Active Cancer Diagnosis on the Problem List?: No Quality: Stroke Does the patient have a stroke diagnosis?: No Physical Exam Vital Signs: Vital Signs: Last Vital Signs Temp 97.6 F 05/02/25 11:39 Pulse 78 05/02/25 12:14 Resp 18 05/02/25 12:14 BP 139/65 05/02/25 11:39 Pulse Ox 95 05/02/25 11:39 O2 Del Method Oxymask 05/02/25 11:39 O2 Flow Rate 3 05/02/25 11:39 FiO2 35 05/01/25 00:00 Oxygen Flow Rate 1 04/30/25 00:00 BMI result Body Mass Index 39.9 DS: Data Data Completed and Pending Completed studies during hospitalization [Text1]: Procedures Assistance with Respiratory Ventilation, Less than 24 Consecutive Hours, Continuous Positive Airway Pressure (04/03/25) Drainage of Left Pleural Cavity, Percutaneous Approach (08/03/24) Insertion of Infusion Device into Superior Vena Cava, Percutaneous Approach (11/10/21) Performance of Urinary Filtration, Intermittent, Less than 6 Hours Per Day (11/10/21) Transfusion of Nonautologous Red Blood Cells into Peripheral Vein, Percutaneous Approach (04/03/25) Labs on day of discharge: Laboratory Results - last 24 hr 04/25/25 05/01/25 05/01/25 21:34 15:19 19:33 Sodium 144 Potassium 4.8 D Chloride 98 Carbon Dioxide 34 H Anion Gap 17 BUN 62 H Creatinine 2.31 H Estim Creat Clear Calc 23.2 Estimated GFR 20 POC Glucose 128 H Random Glucose 147 H Calcium 6.7 L D Magnesium 1.7 Ur L.pneumophila Ag Not Detected 05/01/25 05/02/25 05/02/25 20:39 07:54 11:42 Sodium Potassium Chloride Carbon Dioxide Anion Gap BUN Creatinine Estim Creat Clear Calc Estimated GFR POC Glucose 142 H 132 H 202 H Random Glucose Calcium Magnesium Ur L.pneumophila Ag Discharge Plan Discharge Patient Disposition: [facility] SNF [facility] Russ Shaw MD [Primary Care Provider, [facility]] - 1 Week Discharge Medications: No Action (DME) Lift chair See Rx Instructions .Route .MEDSUPPLY Qty: 1 0RF Rx Instructions: As directed (DME) compression stockings 40 mmHg knee high See Rx Instructions .Route .MEDSUPPLY Qty: 1 0RF Rx Instructions: As directed insulin glargine [Basaglar KwikPen U-100 Insulin] 100 unit/mL (3 mL) insulin pen 25 unit subcut DAILY@1900 furosemide 40 mg Tablet 40 mg PO BID@0900,1800 Qty: 1 0RF Protocol: Hold for SBP< HOLD for SBP < : 90 benzonatate 100 mg Capsule 100 mg PO TID PRN (Reason: Cough) Qty: 1 0RF nystatin [Nyamyc] 100,000 unit/gram Powder 1 appl topical BID Qty: 1 0RF Protocol: Apply to: Apply to: skin ferrous sulfate 324 mg (65 mg iron) Tablet,Delayed Release (Dr/Ec) 324 mg PO DAILY Qty: 1 0RF sertraline 50 mg tablet 75 mg PO DAILY Qty: 1 0RF lorazepam [Ativan] 0.5 mg tablet 0.5 mg PO BID lorazepam [Ativan] 0.5 mg tablet 1 mg PO Q6H PRN (Reason: Anxiety) albuterol sulfate [Ventolin HFA] 90 mcg/actuation HFA aerosol inhaler 2 puff inhalation Q6H PRN (Reason: Shortness Of Breath Or Wheezing) atorvastatin 40 mg tablet 40 mg PO BEDTIME 90 Days Qty: 90 3RF (DME) Accu-Chek Guide test strips Strip See Rx Instructions .Route Qty: 100 3RF Rx Instructions: Use 1 test strip once a day (DME) Accu-Chek Odilia Plus test strp Strip See Rx Instructions .Route Qty: 100 1RF Rx Instructions: Use 1 test strip once a day Jardiance 10 mg tablet 10 mg PO DAILY Qty: 90 1RF gemfibrozil 600 mg tablet 600 mg PO BID Qty: 180 1RF (DME) insulin syringe-needle U-100 0.5 mL 31 gauge x 5/16 syringe See Rx Instructions .Route Qty: 100 3RF Rx Instructions: Use 1 needle once a day (DME) lancets [Accu-Chek Softclix Lancets] Misc See Rx Instructions .Route Qty: 100 3RF Rx Instructions: Use 1 lancet once a day levothyroxine 200 mcg tablet 200 mcg PO DAILY@0600 90 Days Qty: 90 0RF (DME) pen needle, diabetic [1st Tier Unifine Pentips] 31 gauge x 5/16 needle See Rx Instructions .Route Qty: 100 4RF Rx Instructions: Use 1 pen needle once a day sodium bicarbonate 650 mg tablet 650 mg PO DAILY Qty: 90 0RF Lokelma 10 gram powder in packet 10 g PO DAILY Qty: 90 0RF amlodipine 5 mg tablet 5 mg PO DAILY Qty: 90 2RF ammonium lactate 12 % lotion 1 appl topical BID Qty: 400 3RF Diet: Advance to usual diet Activity on Discharge: As tolerated Stand Alone Forms: Patient Portal Discharge page Print Language: Armenian
--- NOTE | 2025-05-02 14:53 | HO.PM.IMPN ---
Subjective Subjective Date of Service: 05/02/25 Interval History: f/u on acute hypoxic respriatory failure due to pneumonia with underlying chronic respiratory failure, 02 dependent due to COPD overll improved, renal function is worsening on top of chronic kidney disease Physical Exam Vital Signs: Vital Signs: Last Vital Signs Temp 97.6 F 05/02/25 11:39 Pulse 78 05/02/25 12:14 Resp 18 05/02/25 12:14 BP 139/65 05/02/25 11:39 Pulse Ox 95 05/02/25 11:39 O2 Del Method Oxymask 05/02/25 11:39 O2 Flow Rate 3 05/02/25 11:39 FiO2 35 05/01/25 00:00 Oxygen Flow Rate 1 04/30/25 00:00 BMI result Body Mass Index 39.9 Const: Other: General: AO X 3, no acute distress Resp: CTA bilateral CVS: S1,S2,RRR GI: +BS, NT, no distention Skin: No rash Neuro: motor grossly intact Psych: appropriate affect Objective Data Active Medications Acetaminophen (Acetaminophen 325 Mg Tablet) 650 mg PO Q6H PRN PRN Reason: Fever >101 Last Admin: 04/30/25 08:23 Dose: 650 mg Documented By: TOVA Albuterol Sulfate (Albuterol Sulfate (0.083%) 2.5 Mg/3 Ml Vial.Neb) 2.5 mg INHALE Q4H PRN PRN Reason: Shortness of Breath/Wheezing Last Admin: 05/02/25 03:57 Dose: 2.5 mg Documented By: SAULO Albuterol/Ipratropium (Albuterol/Iprat 2.5/0.5mg 3 Ml Ampul.Neb) 3 ml INHALE RQ4H WHILE AWAKE [facility] Last Admin: 05/02/25 12:13 Dose: 3 ml Documented By: SCOVILTristian Artificial Tears (Artificial Tears 15 Ml Drops) 1 drop EYE-BOTH Q2H PRN PRN Reason: Dry Eyes Atorvastatin Calcium (Atorvastatin Calcium 40 Mg Tablet) 40 mg PO BEDTIME [facility] Last Admin: 05/01/25 22:20 Dose: 40 mg Documented By: CINTHIA-JOZEB Dextrose (Dextrose 50 % 25 Gm/50 Ml Syringe) 25 gm IVPUSH Q15M PRN; Protocol PRN Reason: per Hypoglycemia Standing Ord. Last Admin: 04/27/25 01:38 Dose: 25 gm Documented By: TRUE Dextrose (Dextrose 50 % 25 Gm/50 Ml Syringe) 25 gm IVPUSH Q15M PRN; Protocol PRN Reason: per Hypoglycemia Standing Ord. Doxycycline Monohydrate (Doxycycline Monohydrate 100 Mg Capsule) 100 mg PO Q12H [facility] Last Admin: 05/02/25 09:42 Dose: 100 mg Documented By: MEGAN Famotidine (Famotidine/Pf 20 Mg/2 Ml Vial) 20 mg IVPUSH BID [facility] Last Admin: 05/02/25 09:43 Dose: 20 mg Documented By: MEGAN Gemfibrozil (Gemfibrozil 600 Mg Tablet) 600 mg PO BID [facility] Last Admin: 05/02/25 09:42 Dose: 600 mg Documented By: MEGAN Glucose (Glucose Gel 15 Gm Gel..Gram.) 15 gm PO Q15M PRN; Protocol PRN Reason: per Hypoglycemia Standing Ord. Heparin Sodium (Porcine) (Heparin Sodium,Porcine 5,000 Unit/Ml Vial) 5,000 unit SUBCUT Q12H [facility] Last Admin: 05/02/25 06:33 Dose: 5,000 unit Documented By: RACHEL Insulin Human Lispro (Insulin Lispro 100 Unit/Ml 3 Ml Vial) 0 unit SUBCUT QIDACHS [facility]; Protocol Last Admin: 05/02/25 11:51 Dose: 4 unit Documented By: DEMETRIUS Lactic Acid (Ammonium Lactate 12 % Lotion 226 Gm Bottle) 1 appl TOPICAL BID [facility]; Protocol Last Admin: 05/02/25 09:47 Dose: 1 appl Documented By: MEGAN Levofloxacin (Levofloxacin 750 Mg Tablet) 750 mg PO Q48H [facility] Last Admin: 05/01/25 11:14 Dose: 750 mg Documented By: MELISSA Levothyroxine Sodium (Levothyroxine Sodium 200 Mcg Tablet) 200 mcg PO DAILY@0600 [facility] Last Admin: 05/02/25 06:34 Dose: 200 mcg Documented By: RACHEL Lorazepam (Lorazepam 1 Mg Tablet) 1 mg PO Q6H PRN PRN Reason: Anxiety Last Admin: 05/02/25 10:30 Dose: 1 mg Documented By: DEMETRIUS Nystatin (Nystatin Powder 15 Gm Bottle) 1 appl TOPICAL TID [facility]; Protocol Last Admin: 05/02/25 09:47 Dose: 1 appl Documented By: MEGAN Sodium Chloride (0.9 % Sodium Chloride Flush 3 Ml Syringe) 3 ml IVFLUSH QSHIFT [facility] Last Admin: 05/02/25 12:09 Dose: Not Given Documented By: DEMETRIUS Non-Admin Reason: Previously Administered Tramadol HCl (Tramadol Hcl 50 Mg Tablet) 25 mg PO Q6H PRN PRN Reason: Pain, Severe (Pain Scale 7-10) Last Admin: 05/02/25 09:42 Dose: 25 mg Documented By: MEGAN Labs 04/29/25 04:26 05/01/25 19:33 Labs: Laboratory Results - last 24 hr 04/25/25 05/01/25 05/01/25 21:34 15:19 19:33 Anion Gap 17 Estim Creat Clear Calc 23.2 Estimated GFR 20 POC Glucose 128 H Random Glucose 147 H Calcium 6.7 L D Magnesium 1.7 Ur L.pneumophila Ag Not Detected 05/01/25 05/02/25 05/02/25 20:39 07:54 11:42 Anion Gap Estim Creat Clear Calc Estimated GFR POC Glucose 142 H 132 H 202 H Random Glucose Calcium Magnesium Ur L.pneumophila Ag Microbiology Microbiology Results: Microbiology 04/25/25 22:23 Urine Culture - Final Urine Catheterized - Moyer Catheter Ramila albicans Assessment and Plan (1) COPD (chronic obstructive pulmonary disease): Status: Acute (2) Acute on chronic respiratory failure: Status: Acute (3) Pneumonitis: Status: Acute Plan 79F PMH chronic hypoxic respiratory failure on 2 L home O2 due to COPD, morbid obesity with obstructive sleep apnea noncompliant with CPAP, chronic right-sided and diastolic CHF, CKD 4, diabetes, hypertension, hyperlipidemia presented on 04/25 with shortness of breath and hypoxia and was intubabated and mechanically ventilated and admitted to the ICU where she was treated with PNA with sputum culture growing MRSA and Pseudomoas, extubated and trialed on NIPPV and transferred to medical floor on 04/29 Acute hypoxic resp failure, related to pseudomonas and MRSA PNA, copd s/p mechanical ventilation NIPPV as need and at night continue O2, goal of 88 to 92 Treat underlying PNA with Doxyc and Levaquin continue bronchodilators Diabetes Insulin HLD statin, lopid CKD 3, stable with mild MARJORIE now, not sure of cause monitor, ivf and nephrology consult if not improving Hypothyroid Levothyroxine Morbid obesity/TEZ CPAP at night, weight loss deconditioning - PT eval DVT prophylaxis with heparin Full Code Quality Stroke Does the patient have a stroke diagnosis?: No VTE Prior VTE?: No VTE Risk Level:: Medical - moderate - high VTE Device Contraindication: N/A - Device Ordered VTE Drug Contraindication: N/A - Med Ordered
--- NOTE | 2025-05-02 15:05 | MHC.CM.PN ---
Per MD, pts discharge is cancelled at this time due to worsening renal functions.
[2025-05-02 16:08] LABS: Glucose, Whole Blood 160 mg/dL (60-115)
[2025-05-02] MEDS: 0.9 % Sodium Chloride Flush 3 ML SYRINGE IVFLUSH (20:59)
[2025-05-02 21:23] LABS: Glucose, Whole Blood 134 mg/dL (60-115)
[2025-05-03] VITALS (9 sets, daily range): BP systolic 117–143; BP diastolic 56–67; PULSE 63–90; RESP 16–25; TEMP 36.3–36.7; O2SAT 93–100
[2025-05-03 06:27] LABS: Anion Gap 23 (12-20); Blood Urea Nitrogen 67 mg/dL (9-16); Calcium 7.1 mg/dL (8.4-10.2); Carbon Dioxide 30 mmol/L (22-29); Chloride 95 mmol/L (96-108); Creatinine Clr Calc Pharmacy 21.1; Estimated Glomerular Filt Rate 18; Potassium 5.4 mmol/L (3.3-5.1); Sodium 143 mmol/L (135-145)
[2025-05-03 07:36] LABS: Glucose, Whole Blood 138 mg/dL (60-115)
--- NOTE | 2025-05-03 08:48 | P.PNIM_ITS ---
Subjective Subjective Date of Service: 05/03/25 Interval History: f/u on acute hypoxic respriatory failure due to pneumonia with underlying chronic respiratory failure, 02 dependent due to COPD overll improved, renal function is worsening on top of chronic kidney disease, and k slightly high Physical Exam 2 Vital Signs: Vital Signs: Last Vital Signs Temp 97.3 F 05/03/25 07:27 Pulse 75 05/03/25 07:27 Resp 18 05/03/25 07:27 BP 134/67 05/03/25 07:27 Pulse Ox 100 05/03/25 07:27 O2 Del Method Oxymask 05/03/25 07:27 O2 Flow Rate 3 05/03/25 07:27 FiO2 35 05/01/25 00:00 Oxygen Flow Rate 1 04/30/25 00:00 BMI result Body Mass Index 39.9 Const: Other: General: AO X 3, no acute distress Resp: CTA bilateral CVS: S1,S2,RRR GI: +BS, NT, no distention Skin: No rash Neuro: motor grossly intact Psych: appropriate affect Objective Data Active Medications Acetaminophen (Acetaminophen 325 Mg Tablet) 650 mg PO Q6H PRN PRN Reason: Fever >101 Last Admin: 05/02/25 20:58 Dose: 650 mg Documented By: JONATHAN Albuterol/Ipratropium (Albuterol/Iprat 2.5/0.5mg 3 Ml Ampul.Neb) 3 ml INHALE RQ4H WHILE AWAKE [facility] Artificial Tears (Artificial Tears 15 Ml Drops) 1 drop EYE-BOTH Q2H PRN PRN Reason: Dry Eyes Atorvastatin Calcium (Atorvastatin Calcium 40 Mg Tablet) 40 mg PO BEDTIME [facility] Last Admin: 05/02/25 20:58 Dose: 40 mg Documented By: JONATHAN Dextrose (Dextrose 50 % 25 Gm/50 Ml Syringe) 25 gm IVPUSH Q15M PRN; Protocol PRN Reason: per Hypoglycemia Standing Ord. Last Admin: 04/27/25 01:38 Dose: 25 gm Documented By: TRUE Dextrose (Dextrose 50 % 25 Gm/50 Ml Syringe) 25 gm IVPUSH Q15M PRN; Protocol PRN Reason: per Hypoglycemia Standing Ord. Doxycycline Monohydrate (Doxycycline Monohydrate 100 Mg Capsule) 100 mg PO Q12H [facility] Last Admin: 05/02/25 22:57 Dose: 100 mg Documented By: JONATHAN Famotidine (Famotidine/Pf 20 Mg/2 Ml Vial) 20 mg IVPUSH BID [facility] Last Admin: 05/02/25 20:59 Dose: 20 mg Documented By: JONATHAN Gemfibrozil (Gemfibrozil 600 Mg Tablet) 600 mg PO BID [facility] Last Admin: 05/02/25 20:59 Dose: 600 mg Documented By: JONATHAN Glucose (Glucose Gel 15 Gm Gel..Gram.) 15 gm PO Q15M PRN; Protocol PRN Reason: per Hypoglycemia Standing Ord. Heparin Sodium (Porcine) (Heparin Sodium,Porcine 5,000 Unit/Ml Vial) 5,000 unit SUBCUT Q12H [facility] Last Admin: 05/03/25 05:20 Dose: 5,000 unit Documented By: JONATHAN Lactated Ringer's (Lr) 1,000 mls @ 80 mls/hr IVCONT .[id number] [facility] Insulin Human Lispro (Insulin Lispro 100 Unit/Ml 3 Ml Vial) 0 unit SUBCUT QIDACHS [facility]; Protocol Last Admin: 05/03/25 07:39 Dose: Not Given Documented By: RUSLAN Non-Admin Reason: No Insulin Coverage Lactic Acid (Ammonium Lactate 12 % Lotion 226 Gm Bottle) 1 appl TOPICAL BID [facility]; Protocol Last Admin: 05/02/25 21:00 Dose: 1 appl Documented By: JONATHAN Levofloxacin (Levofloxacin 750 Mg Tablet) 750 mg PO Q48H [facility] Last Admin: 05/01/25 11:14 Dose: 750 mg Documented By: MELISSA Levothyroxine Sodium (Levothyroxine Sodium 200 Mcg Tablet) 200 mcg PO DAILY@0600 [facility] Last Admin: 05/03/25 05:20 Dose: 200 mcg Documented By: JONATHAN Lorazepam (Lorazepam 1 Mg Tablet) 1 mg PO Q6H PRN PRN Reason: Anxiety Last Admin: 05/02/25 23:55 Dose: 1 mg Documented By: JONATHAN Nystatin (Nystatin Powder 15 Gm Bottle) 1 appl TOPICAL TID [facility]; Protocol Last Admin: 05/02/25 20:59 Dose: 1 appl Documented By: JONATHAN Sodium Chloride (0.9 % Sodium Chloride Flush 3 Ml Syringe) 3 ml IVFLUSH QSHIFT [facility] Last Admin: 05/02/25 20:59 Dose: 3 ml Documented By: JONATHAN Tramadol HCl (Tramadol Hcl 50 Mg Tablet) 25 mg PO Q6H PRN PRN Reason: Pain, Severe (Pain Scale 7-10) Last Admin: 05/03/25 05:21 Dose: 25 mg Documented By: JONATHAN Labs 04/29/25 04:26 05/03/25 06:00 Labs: Laboratory Results - last 24 hr 05/02/25 05/02/25 05/02/25 11:42 15:54 21:19 Hold Purple Top Anion Gap Estim Creat Clear Calc Estimated GFR POC Glucose 202 H 160 H 134 H Random Glucose Calcium 05/03/25 05/03/25 06:00 07:31 Hold Purple Top SEE NOTE Anion Gap 23 H Estim Creat Clear Calc 21.1 Estimated GFR 18 POC Glucose 138 H Random Glucose 152 H Calcium 7.1 L Microbiology Microbiology Results: Microbiology 04/25/25 22:23 Urine Culture - Final Urine Catheterized - Moyer Catheter Ramila albicans Assessment and Plan (1) COPD (chronic obstructive pulmonary disease): Status: Inactive (2) Acute on chronic respiratory failure: Status: Resolved (3) Pneumonitis: Status: Inactive Plan 79F PMH chronic hypoxic respiratory failure on 2 L home O2 due to COPD, morbid obesity with obstructive sleep apnea noncompliant with CPAP, chronic right-sided and diastolic CHF, CKD 4, diabetes, hypertension, hyperlipidemia presented on 04/25 with shortness of breath and hypoxia and was intubabated and mechanically ventilated and admitted to the ICU where she was treated with PNA with sputum culture growing MRSA and Pseudomoas, extubated and trialed on NIPPV and transferred to medical floor on 04/29 Acute hypoxic resp failure, related to pseudomonas and MRSA PNA, copd s/p mechanical ventilation NIPPV as need and at night continue O2, goal of 88 to 92 Treat underlying PNA with Doxyc and Levaquin continue bronchodilators Diabetes Insulin HLD statin, lopid CKD 3, stable with mild MARJORIE now, not sure of cause monitor, ivf and nephrology consult, Hyperkalemia Lokelma and repeat tomorrow Hypothyroid Levothyroxine Morbid obesity/TEZ CPAP at night, weight loss deconditioning - PT eval DVT prophylaxis with heparin Full Code Quality Stroke Does the patient have a stroke diagnosis?: No VTE Prior VTE?: No VTE Risk Level:: Medical - moderate - high VTE Device Contraindication: N/A - Device Ordered VTE Drug Contraindication: N/A - Med Ordered
[2025-05-03] MEDS: Lactated Ringers 1,000 ML 80 ML IVCONT ×2 (09:32→23:03)
[2025-05-03] MEDS: 0.9 % Sodium Chloride Flush 3 ML SYRINGE IVFLUSH ×2 (09:33→22:58)
--- NOTE | 2025-05-03 10:14 | PC.NURSE ---
report given by Shantel JENNINGS from S4 to this RN, arrived to S3 at 1015 in hospital bed by transport
[2025-05-03] MEDS: Ammonium Lactate 12 % Lotion 226 GM BOTTLE 1 APPL TOPICAL ×2 (10:51→21:55)
--- NOTE | 2025-05-03 11:00 | P.CONNP_ITS ---
History of Present Illness Reason for Consult Consult date: 05/03/25 Chief Complaint Chief complaint: Acute/chronic hypercarbic/hypoxic respiratory fail History of Present Illness Narrative: Pt is a 79 y/o female with a medical history of COPD on 2L at home, obesity, TEZ, right diastolic heart failure, CKD4, DMII, HTN, HLD, mood disorder. She is wheelchair bound at home. 04/25 presented with shortness of breath, required mechanical ventilation in ICU, treated for PNA, transferred to floor 04/29. Nephrology consulted for MARJORIE 04/29 creatinine was 1.67 (~baseline) 05/01 creatinine 2.31, 05/03 creatinine is 2.55 patient reports she feels much better at bedside, reports breathing has improved significantly denies other concerns/complaints. Review of Systems Constitutional: Reports no additional constitutional complaints Cardiovascular: Denies chest pain, Denies leg edema, Denies lightheadedness and Denies dyspnea Respiratory: Denies dyspnea Gastrointestinal: Denies abdominal pain, Denies constipation, Denies diarrhea, Denies nausea and Denies vomiting Genitourinary: Denies hematuria, Denies difficulty voiding, Denies dysuria, Denies pelvic pain and Denies flank pain Musculoskeletal: Denies back pain Skin/Breast: Denies rash PMFSH Past Medical History Medical History (Updated 05/03/25 @ 13:07 by Kary Boothe DNP, [facility]-) MARJORIE (acute kidney injury) Pneumonitis Pulmonary hypertension CKD (chronic kidney disease) COPD exacerbation Renal insufficiency Urinary retention Lumbar degenerative disc disease Chronic pain syndrome Obesity hypoventilation syndrome Venous stasis dermatitis Atelectasis Generalized anxiety disorder COPD (chronic obstructive pulmonary disease) CHF (congestive heart failure) Anemia Herpes zoster Left bundle branch block Morbid obesity Chronic pain syndrome Anxiety Pernicious anemia CHF (congestive heart failure) Hypothyroidism Essential hypertension Diabetes mellitus Pure hypercholesterolemia Family History Family History Father CVD (cardiovascular disease) Mother No problems noted. Family/Other FH: mental illness Surgical History Surgical History H/O left knee surgery Deficient knowledge of leg surgery History of tonsillectomy and adenoidectomy History of appendectomy Social History Social History Household Members: Other Household Members Other:: son Housing: Jail Do you presently have visiting nurse or other home services: Yes (vna) Alcohol intake: unknown Comment: 1:1 sitter for oxygen administration and redirection Patient Tobacco Use Status: Former Tobacco user Tobacco use type: Cigarette e-Cigarette/Vaping Use: Never Used Second Hand Smoke Exposure: No Currently Displaying Signs/Symptoms of Drug Intoxication Withdrawal: No Advance Directives: Yes Advance Directives on File: Yes Advance Directives Date on File: 06/24/24 Patient : No service: No Current occupational status: disabled Cognitive needs: Yes (Wheelchair, Lift chair) Hearing needs: No Vision needs: Yes (Glasses) Meds Allergies Allergy/AdvReac Type Severity Reaction Status Date / Time ibuprofen (From Motrin) Allergy Unknown swelling Verified 04/25/25 14:39 codeine (CODEINE) AdvReac Unknown SLEEPY Verified 04/03/25 10:32 Active Medications: Current Medications Acetaminophen (Acetaminophen 325 Mg Tablet) 650 mg PO Q6H PRN PRN Reason: Fever >101 Last Admin: 05/03/25 10:55 Dose: 650 mg Albuterol/Ipratropium (Albuterol/Iprat 2.5/0.5mg 3 Ml Ampul.Neb) 3 ml INHALE RQ4H WHILE AWAKE [facility] Last Admin: 05/03/25 11:22 Dose: 3 ml Artificial Tears (Artificial Tears 15 Ml Drops) 1 drop EYE-BOTH Q2H PRN PRN Reason: Dry Eyes Atorvastatin Calcium (Atorvastatin Calcium 40 Mg Tablet) 40 mg PO BEDTIME [facility] Last Admin: 05/02/25 20:58 Dose: 40 mg Dextrose (Dextrose 50 % 25 Gm/50 Ml Syringe) 25 gm IVPUSH Q15M PRN; Protocol PRN Reason: per Hypoglycemia Standing Ord. Last Admin: 04/27/25 01:38 Dose: 25 gm Dextrose (Dextrose 50 % 25 Gm/50 Ml Syringe) 25 gm IVPUSH Q15M PRN; Protocol PRN Reason: per Hypoglycemia Standing Ord. Doxycycline Monohydrate (Doxycycline Monohydrate 100 Mg Capsule) 100 mg PO Q12H [facility] Last Admin: 05/03/25 10:51 Dose: 100 mg Famotidine (Famotidine/Pf 20 Mg/2 Ml Vial) 20 mg IVPUSH BID [facility] Last Admin: 05/03/25 09:32 Dose: 20 mg Gemfibrozil (Gemfibrozil 600 Mg Tablet) 600 mg PO BID [facility] Last Admin: 05/03/25 09:31 Dose: 600 mg Glucose (Glucose Gel 15 Gm Gel..Gram.) 15 gm PO Q15M PRN; Protocol PRN Reason: per Hypoglycemia Standing Ord. Heparin Sodium (Porcine) (Heparin Sodium,Porcine 5,000 Unit/Ml Vial) 5,000 unit SUBCUT Q12H [facility] Last Admin: 05/03/25 05:20 Dose: 5,000 unit Lactated Ringer's (Lr) 1,000 mls @ 80 mls/hr IVCONT .[id number] [facility] Last Admin: 05/03/25 09:32 Dose: 80 mls/hr Insulin Human Lispro (Insulin Lispro 100 Unit/Ml 3 Ml Vial) 0 unit SUBCUT QIDACHS [facility]; Protocol Last Admin: 05/03/25 11:55 Dose: 2 unit Lactic Acid (Ammonium Lactate 12 % Lotion 226 Gm Bottle) 1 appl TOPICAL BID [facility]; Protocol Last Admin: 05/03/25 10:51 Dose: 1 appl Levofloxacin (Levofloxacin 750 Mg Tablet) 750 mg PO Q48H [facility] Last Admin: 05/03/25 10:51 Dose: 750 mg Levothyroxine Sodium (Levothyroxine Sodium 200 Mcg Tablet) 200 mcg PO DAILY@0600 [facility] Last Admin: 05/03/25 05:20 Dose: 200 mcg Lorazepam (Lorazepam 1 Mg Tablet) 1 mg PO Q6H PRN PRN Reason: Anxiety Last Admin: 05/03/25 09:32 Dose: 1 mg Nystatin (Nystatin Powder 15 Gm Bottle) 1 appl TOPICAL TID [facility]; Protocol Last Admin: 05/03/25 10:51 Dose: 1 appl Sodium Chloride (0.9 % Sodium Chloride Flush 3 Ml Syringe) 3 ml IVFLUSH QSHIFT [facility] Last Admin: 05/03/25 09:33 Dose: 3 ml Tramadol HCl (Tramadol Hcl 50 Mg Tablet) 25 mg PO Q6H PRN PRN Reason: Pain, Severe (Pain Scale 7-10) Last Admin: 05/03/25 11:56 Dose: 25 mg Home Medications ?Medication ?Instructions ?Recorded ?Confirmed ?Last Taken ?Type insulin glargine 100 unit/mL (3 25 unit subcut DAILY@1 900 04/04/25 04/25/25 04/02/25 History mL) subcutaneous pen (Basaglar KwikPen U-100 Insulin) albuterol sulfate 90 mcg/actuation 2 puff inhalation Q 6H PRN 04/25/25 04/25/25 Unknown History aerosol inhaler (Ventolin HFA) Shortness Of Breath Or Wheezing lorazepam 0.5 mg tablet (Ativan) 0.5 mg PO BID 5 04/25/25 Unknown History lorazepam 0.5 mg tablet (Ativan) 1 mg PO Q6H PRN Anxie ty 04/25/25 04/25/25 Unknown History Physical Exam Vital Signs: Last Vital Signs Temp 97.3 F 05/03/25 10:28 Pulse 78 05/03/25 11:22 Resp 18 05/03/25 11:22 BP 143/65 H 05/03/25 10:28 Pulse Ox 95 05/03/25 10:28 O2 Del Method Oxymask 05/03/25 10:28 O2 Flow Rate 2 05/03/25 10:28 FiO2 35 05/01/25 00:00 Oxygen Flow Rate 1 04/30/25 00:00 BMI result Body Mass Index 39.9 Const General: no acute distress, alert and awake Resp Effort & Inspection: normal respiratory effort and able to speak in complete sentences Auscultation: clear to auscultation bilaterally Cardio Rate: regular rate Rhythm: regular rhythm Heart sounds: S1 normal heart sound present and S2 normal heart sound present GI Palpation (GI): Soft to palpation and nontender Skin Rashes: no rashes Extrem General: No edema and No pedal edema Results Lab Results 04/29/25 04:26 05/03/25 06:00 Lab results: Chemistry 05/01/25 05/03/25 19:33 06:00 Sodium 144 143 Potassium 4.8 D 5.4 H Carbon Dioxide 34 H 30 H BUN 62 H 67 H Creatinine 2.31 H 2.55 H Calcium 6.7 L D 7.1 L Assessment and Plan (1) MARJORIE (acute kidney injury): Status: Acute Plan MARJORIE on CKD, likely from hypoperfusion from hypovolemia- patient has been net negative this admission recommend continue gentle hydration with IVF will check BNP to better assess volume status will get renal US to rule out obstruction recommend daily electrolyte and renal function studies regular blood pressure checks and I&O monitoring avoid nephrotoxins continue supportive care Discussed with Dr Baires. Procedures Date of Service Date of Service: 05/03/25
[2025-05-03 11:13] LABS: B Type Natriuretic Peptide 629 pg/mL (<100)
[2025-05-03] MEDS: Albuterol/Iprat 2.5/0.5MG 3 ML AMPUL.NEB INHALE ×3 (11:22→19:38)
[2025-05-03 11:47] LABS: Glucose, Whole Blood 192 mg/dL (60-115)
[2025-05-03 16:13] LABS: Glucose, Whole Blood 174 mg/dL (60-115)
--- NOTE | 2025-05-03 17:08 | MHC.SL.SWA ---
Risk of Aspiration Due to: s/p extubation Dysphasia Diet Status: no change Liquid Consistency and Strategies for Safe Swallow: Liquid Intake Recommendation: Thin Liquid Intake Strategies: Solid Food Consistency: Dietary Recommendations: Chopped/Advanced (NDD3) Additional Modifications to Solid Foods: Oral Medication Intake: Whole with Puree Please contact the pharmacy regarding appropriate crushable or liquid drug formulations that are available whenever modified delivery is recommended. Compensatory Strategies and Precautions to be Taken for Safe Swallow: Sitting Upright (90 deg) Small Bites and Sips Alternate Liquids/Solids Rate of Ingestion Change Supervision While Eating and Drinking for Safe Swallow: Intermittent Supervision Foods to Avoid: Tough, difficult to chew solids Swallowing Recommended Treatments: Compens. Strategy Educat. Recommendation for Speech: Inpatient Speech Therapy Comment: Recommend pt continue with chopped solids and thin liquids. Moisten food in sauce/gravy. Pt expressed preference for pills w/ pudding; larger pills crushed and smaller pills whole. Pt should sit upright for all PO to reduce risk of aspiration. [employer] Boards Inspector Clinican/Clinical Fellow: No Supervisory Statement: I have reviewed and agree with the student/clinical fellow's documentation: N/A Speech Language Pathologist: Ashlyn Chavis M.A., CCC-DIRECTOR [employer]
[2025-05-03 20:50] LABS: Glucose, Whole Blood 112 mg/dL (60-115)
[2025-05-03 22:43] LABS: Strep Pneumo Ag urine Not Detected (Not Detected)
[2025-05-04] VITALS (10 sets, daily range): BP systolic 121–139; BP diastolic 57–90; PULSE 73–91; RESP 16–27; TEMP 36–36.8; O2SAT 94–97
[2025-05-04 07:42] LABS: Glucose, Whole Blood 165 mg/dL (60-115)
[2025-05-04] MEDS: 0.9 % Sodium Chloride Flush 3 ML SYRINGE IVFLUSH ×3 (08:11→21:50)
[2025-05-04] MEDS: Albuterol/Iprat 2.5/0.5MG 3 ML AMPUL.NEB INHALE ×5 (08:22→23:21)
--- NOTE | 2025-05-04 08:33 | HO.PM.IMPN ---
Subjective Subjective Date of Service: 05/04/25 Interval History: f/u on acute hypoxic respriatory failure due to pneumonia with underlying chronic respiratory failure, 02 dependent due to COPD she is reporting shortness of breath this morning, and was on Bipap overnight. CXR done and result pending Physical Exam Vital Signs: Vital Signs: Last Vital Signs Temp 98.2 F 05/04/25 07:58 Pulse 82 05/04/25 08:22 Resp 19 05/04/25 08:22 BP 132/60 05/04/25 07:58 Pulse Ox 97 05/04/25 07:58 O2 Del Method Oxymask 05/04/25 07:58 O2 Flow Rate 3 05/04/25 07:58 FiO2 35 05/01/25 00:00 Oxygen Flow Rate 1 04/30/25 00:00 BMI result Body Mass Index 39.9 Const: Other: General: AO X 3, no acute distress Resp: CTA bilateral CVS: S1,S2,RRR GI: +BS, NT, no distention Skin: No rash Neuro: motor grossly intact Psych: appropriate affect Objective Data Active Medications Acetaminophen (Acetaminophen 325 Mg Tablet) 650 mg PO Q6H PRN PRN Reason: Fever >101 Last Admin: 05/03/25 10:55 Dose: 650 mg Documented By: SOM Albuterol/Ipratropium (Albuterol/Iprat 2.5/0.5mg 3 Ml Ampul.Neb) 3 ml INHALE RQ4H WHILE AWAKE [facility] Last Admin: 05/04/25 08:22 Dose: 3 ml Documented By: BENITO Artificial Tears (Artificial Tears 15 Ml Drops) 1 drop EYE-BOTH Q2H PRN PRN Reason: Dry Eyes Atorvastatin Calcium (Atorvastatin Calcium 40 Mg Tablet) 40 mg PO BEDTIME [facility] Last Admin: 05/03/25 22:56 Dose: 40 mg Documented By: ARMSTRTristian Dextrose (Dextrose 50 % 25 Gm/50 Ml Syringe) 25 gm IVPUSH Q15M PRN; Protocol PRN Reason: per Hypoglycemia Standing Ord. Last Admin: 04/27/25 01:38 Dose: 25 gm Documented By: FLAKITOUMKELVIN Dextrose (Dextrose 50 % 25 Gm/50 Ml Syringe) 25 gm IVPUSH Q15M PRN; Protocol PRN Reason: per Hypoglycemia Standing Ord. Doxycycline Monohydrate (Doxycycline Monohydrate 100 Mg Capsule) 100 mg PO Q12H [facility] Last Admin: 05/03/25 22:55 Dose: 100 mg Documented By: DAVID Famotidine (Famotidine/Pf 20 Mg/2 Ml Vial) 20 mg IVPUSH BID [facility] Last Admin: 05/04/25 08:02 Dose: 20 mg Documented By: RONALD Gemfibrozil (Gemfibrozil 600 Mg Tablet) 600 mg PO BID [facility] Last Admin: 05/04/25 08:02 Dose: 600 mg Documented By: RONALD Glucose (Glucose Gel 15 Gm Gel..Gram.) 15 gm PO Q15M PRN; Protocol PRN Reason: per Hypoglycemia Standing Ord. Heparin Sodium (Porcine) (Heparin Sodium,Porcine 5,000 Unit/Ml Vial) 5,000 unit SUBCUT Q12H [facility] Last Admin: 05/04/25 07:33 Dose: 5,000 unit Documented By: DAVID Lactated Ringer's (Lr) 1,000 mls @ 80 mls/hr IVCONT .[id number] [facility] Last Infusion: 05/04/25 07:51 Dose: 0 mls/hr Documented By: SOM Insulin Human Lispro (Insulin Lispro 100 Unit/Ml 3 Ml Vial) 0 unit SUBCUT QIDACHS [facility]; Protocol Last Admin: 05/04/25 08:02 Dose: 2 unit Documented By: RONALD Lactic Acid (Ammonium Lactate 12 % Lotion 226 Gm Bottle) 1 appl TOPICAL BID [facility]; Protocol Last Admin: 05/03/25 21:55 Dose: 1 appl Documented By: DAVID Levofloxacin (Levofloxacin 750 Mg Tablet) 750 mg PO Q48H [facility] Last Admin: 05/03/25 10:51 Dose: 750 mg Documented By: SOM Levothyroxine Sodium (Levothyroxine Sodium 200 Mcg Tablet) 200 mcg PO DAILY@0600 [facility] Last Admin: 05/04/25 07:33 Dose: 200 mcg Documented By: DAVID Lorazepam (Lorazepam 1 Mg Tablet) 1 mg PO Q6H PRN PRN Reason: Anxiety Last Admin: 05/04/25 08:02 Dose: 1 mg Documented By: RONALD Nystatin (Nystatin Powder 15 Gm Bottle) 1 appl TOPICAL TID [facility]; Protocol Last Admin: 05/03/25 21:55 Dose: 1 appl Documented By: DAVID Sodium Chloride (0.9 % Sodium Chloride Flush 3 Ml Syringe) 3 ml IVFLUSH QSHIFT [facility] Last Admin: 05/04/25 08:11 Dose: 3 ml Documented By: RONALD Tramadol HCl (Tramadol Hcl 50 Mg Tablet) 25 mg PO Q6H PRN PRN Reason: Pain, Severe (Pain Scale 7-10) Last Admin: 05/03/25 22:56 Dose: 25 mg Documented By: DAVID Labs 05/05/25 08:01 05/05/25 08:01 Labs: Laboratory Results - last 24 hr 04/25/25 05/03/25 05/03/25 21:34 10:45 11:39 POC Glucose 192 H B-Natriuretic Peptide 629 H Ur Strep pneumoniae Ag Not Detected 05/03/25 05/03/25 05/04/25 16:09 20:47 07:14 POC Glucose 174 H 112 165 H B-Natriuretic Peptide Ur Strep pneumoniae Ag Microbiology Microbiology Results: Microbiology 04/25/25 22:23 Urine Culture - Final Urine Catheterized - Moyer Catheter Ramila albicans Assessment and Plan (1) COPD (chronic obstructive pulmonary disease): Status: Inactive (2) Acute on chronic respiratory failure: Status: Resolved (3) Pneumonitis: Status: Inactive Plan 79F PMH chronic hypoxic respiratory failure on 2 L home O2 due to COPD, morbid obesity with obstructive sleep apnea noncompliant with CPAP, chronic right-sided and diastolic CHF, CKD 4, diabetes, hypertension, hyperlipidemia presented on 04/25 with shortness of breath and hypoxia and was intubabated and mechanically ventilated and admitted to the ICU where she was treated with PNA with sputum culture growing MRSA and Pseudomoas, extubated and trialed on NIPPV and transferred to medical floor on 04/29 Acute hypoxic resp failure, related to pseudomonas and MRSA PNA, copd s/p mechanical ventilation NIPPV as need and at night continue O2, goal of 88 to 92 Treat underlying PNA with Doxyc and Levaquin continue bronchodilators PRN and schedule CXR this morning Diabetes, acceptable control Insulin HLD statin, lopid CKD 3, stable with mild MARJORIE now, not sure of cause monitor, ivf and nephrology consult, renal US, cyst o/w unremarkable HypERrkalemia [facility] and rechecking Hypothyroid Levothyroxine Morbid obesity/TEZ CPAP at night, weight loss deconditioning - PT eval DVT prophylaxis with heparin Full Code Quality Stroke Does the patient have a stroke diagnosis?: No VTE Prior VTE?: No VTE Risk Level:: Medical - moderate - high VTE Device Contraindication: N/A - Device Ordered VTE Drug Contraindication: N/A - Med Ordered
[2025-05-04 09:41] LABS: Anion Gap 18 (12-20); Blood Urea Nitrogen 73 mg/dL (9-16); Calcium 7.0 mg/dL (8.4-10.2); Carbon Dioxide 32 mmol/L (22-29); Chloride 96 mmol/L (96-108); Creatinine Clr Calc Pharmacy 21.8; Estimated Glomerular Filt Rate 19; Potassium 5.0 mmol/L (3.3-5.1); Sodium 141 mmol/L (135-145)
--- NOTE | 2025-05-04 10:10 | MHC.SL.SWA ---
Speech Pathologist Impression: Risk of Aspiration Due to: Dysphasia Diet Status: Recommend pt continue with chopped solids and thin liquids. Moisten food in sauce/gravy. Pt expressed preference for pills w/ pudding; larger pills crushed and smaller pills whole. Pt should sit upright for all PO to reduce risk of aspiration. Liquid Consistency and Strategies for Safe Swallow: Liquid Intake Recommendation: Thin Liquid Intake Strategies: Solid Food Consistency: Dietary Recommendations: Chopped/Advanced (NDD3) Additional Modifications to Solid Foods: Oral Medication Intake: Whole with Puree Please contact the pharmacy regarding appropriate crushable or liquid drug formulations that are available whenever modified delivery is recommended. Compensatory Strategies and Precautions to be Taken for Safe Swallow: Sitting Upright (90 deg) Small Bites and Sips Alternate Liquids/Solids Rate of Ingestion Change Supervision While Eating and Drinking for Safe Swallow: Intermittent Supervision Foods to Avoid: Tough, difficult to chew solids Swallowing Recommended Treatments: Compens. Strategy Educat. Recommendation for Speech: Inpatient Speech Therapy Comment: Patient seen at breakfast, requesting diabetic syrup for her pancakes, which ELECTRIC WELDER retrieved. Patient had just had updraft treatement, noted that she usually has mucus after this treatment, but was not observed coughing during this observation. Patient ate pancakes from the tray, producing a mildly slow/prolonged mastication on each bite, but produced a timely swallow, and had no clinicals signs of aspiration. Patient was sipping liquids from straw during meal, also managing this consistency well with no clinical signs of aspiration. Patient mildly annoyed with being observed, so ELECTRIC WELDER retreated to leave patient to enjoy meal. Frequency/Duration: Date Range for Service Req: Timeline to reassess: Healthcare Administration Internship Clinican/Clinical Fellow: No Supervisory Statement: I have reviewed and agree with the student/clinical fellow's documentation: N/A Speech Language Pathologist: Kary Dia M.A., CCC-ELECTRIC WELDER
--- NOTE | 2025-05-04 10:20 | P.PNNP_ITS ---
Subjective Subjective Date of Service: 05/04/25 Interval history: Following for MARJORIE, Here with pneumonia. Reports she is doing ok this a.m.- states breathing is still bothering her and feels worse than her baseline. Physical Exam 2 Vital Signs: Vital Signs: Last Vital Signs Temp 98.2 F 05/04/25 07:58 Pulse 82 05/04/25 09:15 Resp 19 05/04/25 08:22 BP 132/60 05/04/25 07:58 Pulse Ox 97 05/04/25 07:58 O2 Del Method Oxymask 05/04/25 07:58 O2 Flow Rate 3 05/04/25 07:58 FiO2 35 05/01/25 00:00 Oxygen Flow Rate 1 04/30/25 00:00 BMI result Body Mass Index 39.9 Const: General: no acute distress, alert and awake Resp: Effort & Inspection: normal respiratory effort and able to speak in complete sentences Auscultation: clear to auscultation bilaterally Cardio: Rate: regular rate Rhythm: regular rhythm Heart sounds: S1 normal heart sound present and S2 normal heart sound present GI: Palpation (GI): Soft to palpation and nontender Skin: Rashes: no rashes Extrem: General: No edema and No pedal edema Objective Data Labs 04/29/25 04:26 05/04/25 08:50 Labs: Laboratory Results - last 24 hr 04/25/25 05/03/25 05/03/25 21:34 10:45 11:39 Hold Purple Top Sodium Potassium Chloride Carbon Dioxide Anion Gap BUN Creatinine Estim Creat Clear Calc Estimated GFR POC Glucose 192 H Random Glucose Calcium B-Natriuretic Peptide 629 H Ur Strep pneumoniae Ag Not Detected 05/03/25 05/03/25 05/04/25 16:09 20:47 07:14 Hold Purple Top Sodium Potassium Chloride Carbon Dioxide Anion Gap BUN Creatinine Estim Creat Clear Calc Estimated GFR POC Glucose 174 H 112 165 H Random Glucose Calcium B-Natriuretic Peptide Ur Strep pneumoniae Ag 05/04/25 08:50 Hold Purple Top SEE NOTE Sodium 141 Potassium 5.0 Chloride 96 Carbon Dioxide 32 H Anion Gap 18 BUN 73 H Creatinine 2.46 H Estim Creat Clear Calc 21.8 Estimated GFR 19 POC Glucose Random Glucose 164 H Calcium 7.0 L B-Natriuretic Peptide Ur Strep pneumoniae Ag Microbiology Microbiology Results: Microbiology 04/25/25 22:23 Urine Catheterized - Moyer Catheter Urine Culture - Final Ramila albicans 04/25/25 16:53 Blood - Venous Blood Culture - Final No growth after 5 days. 04/25/25 16:41 Blood - Venous Blood Culture - Final No growth after 5 days. 04/26/25 09:01 Tracheal Aspirate Gram Stain - Final 04/26/25 09:01 Tracheal Aspirate Sputum Culture - Final Pseudomonas aeruginosa Methicillin Res Staph Aureus 04/25/25 21:34 Trachea Gram Stain - Final 04/25/25 21:34 Trachea Sputum Culture - Final Pseudomonas aeruginosa Procedures Date of Service Date of Service: 05/04/25 Assessment & Plan Assessment and plan (1) Acute kidney injury superimposed on chronic kidney disease: Status: Resolved Plan MARJORIE on CKD, likely from hypoperfusion from hypovolemia- patient has been net negative this admission. Creatinine is stable/plateaued. Renal US without obstruction. May continue gentle hydration with IVF. Will check urine protein/creatinine ratio- pt with blood in urine though had UTI, will re-check UA recommend daily electrolyte and renal function studies regular blood pressure checks and I&O monitoring avoid nephrotoxins continue supportive care Discussed with Dr Baires. Time Spent With Patient Time: Total time managing care of this patient today ____ minutes. Progress Note: Quality Stroke Does the patient have a stroke diagnosis?: No
[2025-05-04 11:55] LABS: Glucose, Whole Blood 166 mg/dL (60-115)
[2025-05-04] MEDS: Ammonium Lactate 12 % Lotion 226 GM BOTTLE 1 APPL TOPICAL ×2 (14:57→21:49)
[2025-05-04 15:53] LABS: Total Protein Urine Random 181 mg/dL (<12)
[2025-05-04 17:02] LABS: Glucose, Whole Blood 143 mg/dL (60-115)
[2025-05-04 20:33] LABS: Glucose, Whole Blood 180 mg/dL (60-115)
[2025-05-05] VITALS (19 sets, daily range): BP systolic 104–139; BP diastolic 42–67; PULSE 68–90; RESP 16–35; TEMP 36–36.6; O2SAT 89–99
[2025-05-05] MEDS: Albuterol/Iprat 2.5/0.5MG 3 ML AMPUL.NEB INHALE ×5 (03:03→19:27)
--- NOTE | 2025-05-05 03:13 | PC.NURSE ---
Addendum entered by Inés Gustafson RN 05/05/25 03:30: verified with Dr. Hernández regarding IV fluids and it is to hold for now. Original Note: late entry. per 1899, 05/04 shift report IV fluids to be on hold. Report received from Lise JENNINGS.
--- NOTE | 2025-05-05 07:22 | PC.RT ---
pt refused to wear her cpap machine all night after several attempts of explaining to her why it would help her breathing. She continue to refuse to wear. Patient also had several prn nebulizers overnight. She does not remember me being in the room at all. Pt was yelling out of her room as I was at the doorway last night, i entered and pt was asking for Respiratory Therapy and I told her that she was already on a nebulizer treatment. I gave her another nebulizer treatment this morning as scheduled. I did receive a phone call on my office phone saying that his mother needs a nebulizer treatment. Patient is calling her family from her bed and telling them what she needs. I did speak to her about this and she doesnt recall calling them. Pt is no apparent resp distress and she is on 2 l oxymask with rr 20 and bs: dim. I did converse with the day nurse cachorro and Bowen JENNINGS about this situation. Bowen JENNINGS did let DR. Mujica aware as well.
[2025-05-05 07:31] LABS: Glucose, Whole Blood 159 mg/dL (60-115)
[2025-05-05 08:25] LABS: Hematocrit 24.8 % (37.0-47.0); Hemoglobin 7.4 g/dl (12.0-16.0); Mean Corpuscular HGB Conc 29.8 g/dl (31.0-35.0); Mean Corpuscular Hemoglobin 27.8 pg (27.0-33.0); Mean Corpuscular Volume 93.2 fL (80.0-98.0); NRBC Abs Auto 0.000 X10*3/uL (0.0-0.012); NRBC Pct Auto 0.0 /100WBC (0.0-0.2); Platelet Count 179 X10*3/uL (160-400); Red Blood Count 2.66 X10*6/uL (4.20-5.50); White Blood Count 6.2 X10*3/uL (4.8-10.8)
[2025-05-05 08:35] LABS: Ammonia 29 umol/L (13-55)
[2025-05-05 08:41] LABS: Anion Gap 19 (12-20); Blood Urea Nitrogen 82 mg/dL (9-16); Calcium 6.9 mg/dL (8.4-10.2); Carbon Dioxide 32 mmol/L (22-29); Chloride 98 mmol/L (96-108); Creatinine Clr Calc Pharmacy 23.3; Estimated Glomerular Filt Rate 21; Potassium 4.9 mmol/L (3.3-5.1); Sodium 144 mmol/L (135-145)
--- NOTE | 2025-05-05 08:43 | PC.RT ---
ABG draw on pt at 0735 this am. Pt cyndi well, results [id number]. Pt agreeable to wear AVAPs due to high CO2, pt cyndi well. Blood gas results not transferring from machine to [facility], RT contacted the lab. MD aware of gas results, pt on machine, and error with results transferring.
[2025-05-05 08:49] LABS: ABG HCO3 39 mmol/L (22-26); ABG O2 % Saturation 98.0 %
[2025-05-05] MEDS: 0.9 % Sodium Chloride Flush 3 ML SYRINGE IVFLUSH ×2 (09:17→18:31)
[2025-05-05] MEDS: Ammonium Lactate 12 % Lotion 226 GM BOTTLE 1 APPL TOPICAL (09:30)
--- NOTE | 2025-05-05 10:32 | PC.RT ---
Pt was placed on BiPAP around (0740). Pt was toleraing BiPAP well, RN took Pt off BiPAP to eat but Pt began desating in the 70s and was also tachypneic. Breathing treatment was administered via BiPAP aerogen. Treatment was administered early by Pt request.
--- NOTE | 2025-05-05 10:35 | P.PNNP_ITS ---
Subjective Subjective Date of Service: 05/05/25 Interval history: Following for MARJORIE, Here with pneumonia. Patient on bipap this a.m., breathing worse. Physical Exam 2 Vital Signs: Vital Signs: Last Vital Signs Temp 97.7 F 05/05/25 07:37 Pulse 70 05/05/25 10:30 Resp 29 H 05/05/25 10:30 BP 121/57 L 05/05/25 07:37 Pulse Ox 99 05/05/25 07:37 O2 Del Method Aerosol Mask 05/05/25 07:37 O2 Flow Rate 4 05/05/25 07:37 FiO2 35 05/01/25 00:00 Oxygen Flow Rate 1 04/30/25 00:00 BMI result Body Mass Index 39.9 Objective Data Labs 05/05/25 08:01 05/05/25 08:01 Labs: Laboratory Results - last 24 hr 05/04/25 05/04/25 05/04/25 11:44 14:57 16:54 WBC RBC Hgb Hct MCV MCH MCHC RDW Plt Count MPV Absolute Nucleated RBC Nucleated RBC % (auto) O2 Saturation ABG pH at Pt Temp ABG pCO2 at Pt Temp ABG pO2 at Pt Temp ABG HCO3 ABG Base Excess (Actual) Sodium Potassium Chloride Carbon Dioxide Anion Gap BUN Creatinine Estim Creat Clear Calc Estimated GFR POC Glucose 166 H 143 H Random Glucose Calcium Ammonia U Random Total Protein 181 H Urine Creatinine 57.58 05/04/25 05/05/25 05/05/25 20:30 07:25 07:37 WBC RBC Hgb Hct MCV MCH MCHC RDW Plt Count MPV Absolute Nucleated RBC Nucleated RBC % (auto) O2 Saturation 98.0 ABG pH at Pt Temp 7.34 L ABG pCO2 at Pt Temp 71 H* ABG pO2 at Pt Temp 101 ABG HCO3 39 H ABG Base Excess (Actual) 11.4 Sodium Potassium Chloride Carbon Dioxide Anion Gap BUN Creatinine Estim Creat Clear Calc Estimated GFR POC Glucose 180 H 159 H Random Glucose Calcium Ammonia U Random Total Protein Urine Creatinine 05/05/25 05/05/25 08:01 10:56 WBC 6.2 RBC 2.66 L Hgb 7.4 L Hct 24.8 L MCV 93.2 MCH 27.8 MCHC 29.8 L RDW 16.5 H Plt Count 179 D MPV 9.3 L Absolute Nucleated RBC 0.000 Nucleated RBC % (auto) 0.0 O2 Saturation 89.0 ABG pH at Pt Temp 7.35 ABG pCO2 at Pt Temp 70 H* ABG pO2 at Pt Temp 69 L ABG HCO3 39 H ABG Base Excess (Actual) 12.3 Sodium 144 Potassium 4.9 Chloride 98 Carbon Dioxide 32 H Anion Gap 19 BUN 82 H Creatinine 2.30 H Estim Creat Clear Calc 23.3 Estimated GFR 21 POC Glucose Random Glucose 169 H Calcium 6.9 L Ammonia 29 U Random Total Protein Urine Creatinine Microbiology Microbiology Results: Microbiology 04/25/25 22:23 Urine Catheterized - Moyer Catheter Urine Culture - Final Ramila albicans 04/25/25 16:53 Blood - Venous Blood Culture - Final No growth after 5 days. 04/25/25 16:41 Blood - Venous Blood Culture - Final No growth after 5 days. 04/26/25 09:01 Tracheal Aspirate Gram Stain - Final 04/26/25 09:01 Tracheal Aspirate Sputum Culture - Final Pseudomonas aeruginosa Methicillin Res Staph Aureus 04/25/25 21:34 Trachea Gram Stain - Final 04/25/25 21:34 Trachea Sputum Culture - Final Pseudomonas aeruginosa Procedures Date of Service Date of Service: 05/05/25 Assessment & Plan Assessment and plan (1) MARJORIE (acute kidney injury): Status: Acute Plan MRAJORIE on CKD, likely from hypoperfusion from hypovolemia. Creatinine is stable/plateaued. Renal US without obstruction. Recommend holding fluids given increased oxygen needs this a.m.- recommend keeping her fluid balance net even. urine protein/creatinine ratio increased from ~2.5 to ~3.1. Repeat urinalysis pending. recommend daily electrolyte and renal function studies regular blood pressure checks and I&O monitoring avoid nephrotoxins continue supportive care Discussed with Dr Baires. Time Spent With Patient Time: Total time managing care of this patient today ____ minutes. Progress Note: Quality Stroke Does the patient have a stroke diagnosis?: No
--- NOTE | 2025-05-05 10:41 | HO.PM.IMPN ---
Subjective Subjective Date of Service: 05/05/25 Interval History: f/u on acute hypoxic respriatory failure due to pneumonia with underlying chronic respiratory failure, 02 dependent due to COPD. She refused BiPAP overnight . This morning she has been increasing confused and requesting frequent Neb treatment, a stat ABG show CO2 of 71 and put on BiPAP Vitals are owtherwise stable. Physical Exam Vital Signs: Vital Signs: Last Vital Signs Temp 97.7 F 05/05/25 07:37 Pulse 70 05/05/25 10:30 Resp 29 H 05/05/25 10:30 BP 121/57 L 05/05/25 07:37 Pulse Ox 99 05/05/25 07:37 O2 Del Method Aerosol Mask 05/05/25 07:37 O2 Flow Rate 4 05/05/25 07:37 FiO2 35 05/01/25 00:00 Oxygen Flow Rate 1 04/30/25 00:00 BMI result Body Mass Index 39.9 Const: Other: General: confused, alert,not obtunded, talking Resp: CTA bilateral CVS: S1,S2,RRR GI: +BS, NT, no distention Skin: No rash Neuro: motor grossly intact Psych: appropriate affect Objective Data Active Medications Acetaminophen (Acetaminophen 325 Mg Tablet) 650 mg PO Q6H PRN PRN Reason: Fever >101 Last Admin: 05/03/25 10:55 Dose: 650 mg Documented By: SOM Albuterol/Ipratropium (Albuterol/Iprat 2.5/0.5mg 3 Ml Ampul.Neb) 3 ml INHALE RQ4H WHILE AWAKE [facility] Last Admin: 05/05/25 10:29 Dose: 3 ml Documented By: ALPA Albuterol/Ipratropium (Albuterol/Iprat 2.5/0.5mg 3 Ml Ampul.Neb) 3 ml INHALE Q2H PRN PRN Reason: Shortness of Breath/Wheezing Last Admin: 05/05/25 03:03 Dose: 3 ml Documented By: CYNTHIA Artificial Tears (Artificial Tears 15 Ml Drops) 1 drop EYE-BOTH Q2H PRN PRN Reason: Dry Eyes Atorvastatin Calcium (Atorvastatin Calcium 40 Mg Tablet) 40 mg PO BEDTIME [facility] Last Admin: 05/04/25 21:48 Dose: 40 mg Documented By: PASTOR Dextrose (Dextrose 50 % 25 Gm/50 Ml Syringe) 25 gm IVPUSH Q15M PRN; Protocol PRN Reason: per Hypoglycemia Standing Ord. Last Admin: 04/27/25 01:38 Dose: 25 gm Documented By: TRUE Dextrose (Dextrose 50 % 25 Gm/50 Ml Syringe) 25 gm IVPUSH Q15M PRN; Protocol PRN Reason: per Hypoglycemia Standing Ord. Doxycycline Monohydrate (Doxycycline Monohydrate 100 Mg Capsule) 100 mg PO Q12H [facility] Last Admin: 05/04/25 21:48 Dose: 100 mg Documented By: PASTOR Famotidine (Famotidine/Pf 20 Mg/2 Ml Vial) 10 mg IVPUSH DAILY [facility] Last Admin: 05/05/25 09:17 Dose: 10 mg Documented By: LISSA Gemfibrozil (Gemfibrozil 600 Mg Tablet) 600 mg PO BID [facility] Last Admin: 05/05/25 09:16 Dose: 600 mg Documented By: LISSA Glucose (Glucose Gel 15 Gm Gel..Gram.) 15 gm PO Q15M PRN; Protocol PRN Reason: per Hypoglycemia Standing Ord. Heparin Sodium (Porcine) (Heparin Sodium,Porcine 5,000 Unit/Ml Vial) 5,000 unit SUBCUT Q12H [facility] Last Admin: 05/05/25 05:03 Dose: 5,000 unit Documented By: PASTOR Insulin Human Lispro (Insulin Lispro 100 Unit/Ml 3 Ml Vial) 0 unit SUBCUT QIDACHS [facility]; Protocol Last Admin: 05/05/25 09:17 Dose: 2 unit Documented By: LISSA Lactic Acid (Ammonium Lactate 12 % Lotion 226 Gm Bottle) 1 appl TOPICAL BID [facility]; Protocol Last Admin: 05/05/25 09:30 Dose: 1 appl Documented By: LISSA Levofloxacin (Levofloxacin 750 Mg Tablet) 750 mg PO Q48H [facility] Last Admin: 05/03/25 10:51 Dose: 750 mg Documented By: SOM Levothyroxine Sodium (Levothyroxine Sodium 200 Mcg Tablet) 200 mcg PO DAILY@0600 [facility] Last Admin: 05/05/25 05:03 Dose: 200 mcg Documented By: PASTOR Lorazepam (Lorazepam 1 Mg Tablet) 1 mg PO Q6H PRN PRN Reason: Anxiety Last Admin: 05/05/25 09:57 Dose: 1 mg Documented By: LISSA Nystatin (Nystatin Powder 15 Gm Bottle) 1 appl TOPICAL TID [facility]; Protocol Last Admin: 05/05/25 09:30 Dose: 1 appl Documented By: LISSA Sodium Chloride (0.9 % Sodium Chloride Flush 3 Ml Syringe) 3 ml IVFLUSH QSHIFT [facility] Last Admin: 05/05/25 09:17 Dose: 3 ml Documented By: LISSA Tramadol HCl (Tramadol Hcl 50 Mg Tablet) 25 mg PO Q6H PRN PRN Reason: Pain, Severe (Pain Scale 7-10) Last Admin: 05/05/25 00:01 Dose: 25 mg Documented By: PASTOR Labs 05/05/25 08:01 05/05/25 08:01 Labs: Laboratory Results - last 24 hr 05/04/25 05/04/25 05/04/25 11:44 14:57 16:54 MCV MCH MCHC RDW Plt Count MPV Absolute Nucleated RBC Nucleated RBC % (auto) O2 Saturation ABG pH at Pt Temp ABG pCO2 at Pt Temp ABG pO2 at Pt Temp ABG HCO3 ABG Base Excess (Actual) Anion Gap Estim Creat Clear Calc Estimated GFR POC Glucose 166 H 143 H Random Glucose Calcium Ammonia U Random Total Protein 181 H Urine Creatinine 57.58 05/04/25 05/05/25 05/05/25 20:30 07:25 07:37 MCV MCH MCHC RDW Plt Count MPV Absolute Nucleated RBC Nucleated RBC % (auto) O2 Saturation 98.0 ABG pH at Pt Temp 7.34 L ABG pCO2 at Pt Temp 71 H* ABG pO2 at Pt Temp 101 ABG HCO3 39 H ABG Base Excess (Actual) 11.4 Anion Gap Estim Creat Clear Calc Estimated GFR POC Glucose 180 H 159 H Random Glucose Calcium Ammonia U Random Total Protein Urine Creatinine 05/05/25 08:01 MCV 93.2 MCH 27.8 MCHC 29.8 L RDW 16.5 H Plt Count 179 D MPV 9.3 L Absolute Nucleated RBC 0.000 Nucleated RBC % (auto) 0.0 O2 Saturation ABG pH at Pt Temp ABG pCO2 at Pt Temp ABG pO2 at Pt Temp ABG HCO3 ABG Base Excess (Actual) Anion Gap 19 Estim Creat Clear Calc 23.3 Estimated GFR 21 POC Glucose Random Glucose 169 H Calcium 6.9 L Ammonia 29 U Random Total Protein Urine Creatinine Microbiology Microbiology Results: Microbiology 04/25/25 22:23 Urine Culture - Final Urine Catheterized - Moyer Catheter Ramila albicans Assessment and Plan (1) COPD (chronic obstructive pulmonary disease): Status: Inactive (2) Acute on chronic respiratory failure: Status: Resolved (3) Pneumonitis: Status: Inactive Plan 79F PMH chronic hypoxic respiratory failure on 2 L home O2 due to COPD, morbid obesity with obstructive sleep apnea noncompliant with CPAP, chronic right-sided and diastolic CHF, CKD 4, diabetes, hypertension, hyperlipidemia presented on 04/25 with shortness of breath and hypoxia and was intubabated and mechanically ventilated and admitted to the ICU where she was treated with PNA with sputum culture growing MRSA and Pseudomoas, extubated and trialed on NIPPV and transferred to medical floor on 04/29 Acute hypoxic resp failure, related to pseudomonas and MRSA PNA, copd s/p mechanical ventilation in ICU BiPAP as need and at night, ABG if confused or somnolent Hypercarbia this morning with CO2 77, putting on BiPAP and rechecking ABG continue O2, goal of 88 to 92 Treating underlying PNA with Doxyc and Levaquin, probably for 10 days total (Levaquin started on 05/01 and Doxy 04/30) continue bronchodilators PRN and schedule and schedule CXR 05/04, showed L sided mod-large P.effusion, ask Dr. Darby to assess, effusion hard to quantify on xray Diabetes, acceptable control Continue Insulin HLD statin, lopid CKD 3, stable with mild MARJORIE now, not sure of cause briefly given some IVF, Creatine appear stable at 2.3 to 2.5 renal US, cyst o/w unremarkable Nephro following HypERrkalemia resolved after Lokelma Hypothyroid Levothyroxine Morbid obesity/TEZ CPAP at night, weight loss deconditioning - PT recommends SNF DVT prophylaxis with heparin Full Code Quality Stroke Does the patient have a stroke diagnosis?: No VTE Prior VTE?: No VTE Risk Level:: Medical - moderate - high VTE Device Contraindication: N/A - Device Ordered VTE Drug Contraindication: N/A - Med Ordered
[2025-05-05 11:02] LABS: ABG HCO3 39 mmol/L (22-26); ABG O2 % Saturation 89.0 %
[2025-05-05 11:14] LABS: Glucose, Whole Blood 170 mg/dL (60-115)
--- NOTE | 2025-05-05 12:40 | P.PNPL_ITS ---
Subjective Subjective Date of Service: 05/05/25 Interval history: The patient is seen on exam. Did not want to use her BiPAP last night this morning walking up with altered mental status worsening shortness of breath. Blood gas with acute on chronic hypercarbic respiratory failure. Currently on BiPAP. Seems to be tolerating it. Chest x-ray done demonstrating bilateral effusions and pulmonary vascular congestion. Likely volume overloaded status. Objective Data Labs 05/05/25 08:01 05/05/25 08:01 Labs: Laboratory Results - last 24 hr 05/04/25 05/04/25 05/04/25 14:57 16:54 20:30 WBC RBC Hgb Hct MCV MCH MCHC RDW Plt Count MPV Absolute Nucleated RBC Nucleated RBC % (auto) O2 Saturation ABG pH at Pt Temp ABG pCO2 at Pt Temp ABG pO2 at Pt Temp ABG HCO3 ABG Base Excess (Actual) Sodium Potassium Chloride Carbon Dioxide Anion Gap BUN Creatinine Estim Creat Clear Calc Estimated GFR POC Glucose 143 H 180 H Random Glucose Calcium Ammonia U Random Total Protein 181 H Urine Creatinine 57.58 05/05/25 05/05/25 05/05/25 07: 07:37 08:01 WBC 6.2 RBC 2.66 L Hgb 7.4 L Hct 24.8 L MCV 93.2 MCH 27.8 MCHC 29.8 L RDW 16.5 H Plt Count 179 D MPV 9.3 L Absolute Nucleated RBC 0.000 Nucleated RBC % (auto) 0.0 O2 Saturation 98.0 ABG pH at Pt Temp 7.34 L ABG pCO2 at Pt Temp 71 H* ABG pO2 at Pt Temp 101 ABG HCO3 39 H ABG Base Excess (Actual) 11.4 Sodium 144 Potassium 4.9 Chloride 98 Carbon Dioxide 32 H Anion Gap 19 BUN 82 H Creatinine 2.30 H Estim Creat Clear Calc 23.3 Estimated GFR 21 POC Glucose 159 H Random Glucose 169 H Calcium 6.9 L Ammonia 29 U Random Total Protein Urine Creatinine 05/05/25 05/05/25 10:56 11:10 WBC RBC Hgb Hct MCV MCH MCHC RDW Plt Count MPV Absolute Nucleated RBC Nucleated RBC % (auto) O2 Saturation 89.0 ABG pH at Pt Temp 7.35 ABG pCO2 at Pt Temp 70 H* ABG pO2 at Pt Temp 69 L ABG HCO3 39 H ABG Base Excess (Actual) 12.3 Sodium Potassium Chloride Carbon Dioxide Anion Gap BUN Creatinine Estim Creat Clear Calc Estimated GFR POC Glucose 170 H Random Glucose Calcium Ammonia U Random Total Protein Urine Creatinine Microbiology Microbiology Results: Microbiology 04/25/25 22:23 Urine Catheterized - Moyer Catheter Urine Culture - Final Ramila albicans 04/25/25 16:53 Blood - Venous Blood Culture - Final No growth after 5 days. 04/25/25 16:41 Blood - Venous Blood Culture - Final No growth after 5 days. 04/26/25 09:01 Tracheal Aspirate Gram Stain - Final 04/26/25 09:01 Tracheal Aspirate Sputum Culture - Final Pseudomonas aeruginosa Methicillin Res Staph Aureus 04/25/25 21:34 Trachea Gram Stain - Final 04/25/25 21:34 Trachea Sputum Culture - Final Pseudomonas aeruginosa Review of Systems Constitutional: Reports no additional constitutional complaints Cardiovascular: Denies chest pain, Reports leg edema, Denies lightheadedness and Reports dyspnea Respiratory: Reports dyspnea Gastrointestinal: Denies abdominal pain, Denies constipation, Denies diarrhea, Denies nausea and Denies vomiting Genitourinary: Denies hematuria, Denies difficulty voiding, Denies dysuria, Denies pelvic pain and Denies flank pain Musculoskeletal: Denies back pain Skin/Breast: Denies rash Physical Exam 2 Vital Signs: Vital Signs: Last Vital Signs Temp 97.7 F 05/05/25 07:37 Pulse 70 05/05/25 10:30 Resp 31 H 05/05/25 11:20 BP 121/57 L 05/05/25 07:37 Pulse Ox 99 05/05/25 07:37 O2 Del Method Aerosol Mask 05/05/25 07:37 O2 Flow Rate 4 05/05/25 07:37 FiO2 35 05/01/25 00:00 Oxygen Flow Rate 1 04/30/25 00:00 BMI result Body Mass Index 39.9 Procedures Date of Service Date of Service: 05/05/25 Assessment and Plan Assessment and plan (1) COPD (chronic obstructive pulmonary disease): Status: Acute (2) CHF (congestive heart failure): Status: Acute (3) Pulmonary hypertension: Status: Acute (4) Acute and chronic respiratory failure: Status: Resolved Plan continue respiratory therapy Needs to use the BIPAP at night Needs diuresis very careful for benzos and opiods that suppress her respiratory drive complete 14 days of Levofloxacin/doxycycline Fair condition Time Spent With Patient Time: Total time managing care of this patient today ____ minutes. Progress Note: Quality Stroke Does the patient have a stroke diagnosis?: No
[2025-05-05 12:55] LABS: ABG Refer to POC result
--- NOTE | 2025-05-05 13:31 | PC.NURSE ---
Order placed to send patient to ICU. Waiting Bed.
--- NOTE | 2025-05-05 15:18 | MHC.SPEECHCO ---
RN reports patient has been eating well, was taking breaks to drink her curry frances, and tolerated her pills crushed w/ pudding with no coughing. Patient on BiPAP, needs to keep BiPAP on per RN, to transfer to ICU, not appropriate at this time for PO trials at this time.
[2025-05-05 16:16] LABS: Glucose, Whole Blood 122 mg/dL (60-115)
--- NOTE | 2025-05-05 16:28 | PC.NURSE ---
patient scheduled for transfer to [facility]... Stated he needs to use commode urgently before transport... while turning and pivoting stated he is having 5/10 chest pain similar to days prior while exerting himself... Patient affirms shortness of breath, but denies nausea, radiating pain, dizziness, headache or changes in vision... Remains hemodynamically stable, with no ST or telemetry changes visualized. Patient pivoted back to bed... MD stated still proceed with transfer.
--- NOTE | 2025-05-05 16:45 | PC.NURSE ---
Patient transferred to ICU at 16:40 with the help of RT.
[2025-05-05 16:51] LABS: Glucose, Whole Blood 113 mg/dL (60-115)
--- NOTE | 2025-05-05 17:23 | W.PM.CCCN ---
History of Present Illness Data of Consult Service Date: 05/05/25 Primary Care Provider: Russ Shaw MD HPI Reason for consult: shortness of breath 78-year-old lady with past medical history of COPD, pulmonary hypertension and right heart failure, hypertension, diabetes mellitus, CKD-III, hyperlipidemia, hypothyroidism, and mood disorder was admitted to hospital on 04/25/2025 due to worsening shortness of breath secondary to pneumonia requiring intubation and mechanical ventilator support, extubated on 04/28/2025 and transferred to floor. Patient was treated with antibiotics, diuresis with which her symptoms improved. Since last night patient complains of some shortness of breath needing BiPAP support overnight and again this morning so he is transferred back to medical ICU Review of Systems Review of Systems: Unable to obtain as patient is on BiPAP PMFSH Past Medical History Medical History (Updated 05/05/25 @ 12:45 by Aidan Darby MD) Pulmonary hypertension COPD (chronic obstructive pulmonary disease) CHF (congestive heart failure) MARJORIE (acute kidney injury) Pneumonitis CKD (chronic kidney disease) COPD exacerbation Renal insufficiency Urinary retention Lumbar degenerative disc disease Chronic pain syndrome Obesity hypoventilation syndrome Venous stasis dermatitis Atelectasis Generalized anxiety disorder CHF (congestive heart failure) Anemia Herpes zoster Left bundle branch block Morbid obesity Chronic pain syndrome Anxiety Pernicious anemia Hypothyroidism Essential hypertension Diabetes mellitus Pure hypercholesterolemia Family History Family History Father CVD (cardiovascular disease) Mother No problems noted. Family/Other FH: mental illness Surgical History Surgical History H/O left knee surgery Deficient knowledge of leg surgery History of tonsillectomy and adenoidectomy History of appendectomy Social History Social History Household Members: Other Household Members Other:: son Housing: Care Home Do you presently have visiting nurse or other home services: Yes (vna) Alcohol intake: unknown Comment: 1:1 sitter for oxygen administration and redirection Patient Tobacco Use Status: Former Tobacco user Tobacco use type: Cigarette e-Cigarette/Vaping Use: Never Used Second Hand Smoke Exposure: No Currently Displaying Signs/Symptoms of Drug Intoxication Withdrawal: No Advance Directives: Yes Advance Directives on File: Yes Advance Directives Date on File: 06/24/24 Patient : No service: No Current occupational status: disabled Cognitive needs: Yes (Wheelchair, Lift chair) Hearing needs: No Vision needs: Yes (Glasses) Meds Allergies Allergy/AdvReac Type Severity Reaction Status Date / Time ibuprofen (From Motrin) Allergy Unknown swelling Verified 04/25/25 14:39 codeine (CODEINE) AdvReac Unknown SLEEPY Verified 04/03/25 10:32 Active Medications: Current Medications Acetaminophen (Acetaminophen 325 Mg Tablet) 650 mg PO Q6H PRN PRN Reason: Fever >101 Last Admin: 05/03/25 10:55 Dose: 650 mg Albuterol/Ipratropium (Albuterol/Iprat 2.5/0.5mg 3 Ml Ampul.Neb) 3 ml INHALE RQ4H WHILE AWAKE [facility] Last Admin: 05/05/25 15:28 Dose: 3 ml Albuterol/Ipratropium (Albuterol/Iprat 2.5/0.5mg 3 Ml Ampul.Neb) 3 ml INHALE Q2H PRN PRN Reason: Shortness of Breath/Wheezing Last Admin: 05/05/25 03:03 Dose: 3 ml Artificial Tears (Artificial Tears 15 Ml Drops) 1 drop EYE-BOTH Q2H PRN PRN Reason: Dry Eyes Atorvastatin Calcium (Atorvastatin Calcium 40 Mg Tablet) 40 mg PO BEDTIME [facility] Last Admin: 05/04/25 21:48 Dose: 40 mg Dextrose (Dextrose 50 % 25 Gm/50 Ml Syringe) 25 gm IVPUSH Q15M PRN; Protocol PRN Reason: per Hypoglycemia Standing Ord. Last Admin: 04/27/25 01:38 Dose: 25 gm Dextrose (Dextrose 50 % 25 Gm/50 Ml Syringe) 25 gm IVPUSH Q15M PRN; Protocol PRN Reason: per Hypoglycemia Standing Ord. Doxycycline Monohydrate (Doxycycline Monohydrate 100 Mg Capsule) 100 mg PO Q12H [facility] Last Admin: 05/05/25 11:57 Dose: 100 mg Famotidine (Famotidine/Pf 20 Mg/2 Ml Vial) 10 mg IVPUSH DAILY [facility] Last Admin: 05/05/25 09:17 Dose: 10 mg Gemfibrozil (Gemfibrozil 600 Mg Tablet) 600 mg PO BID [facility] Last Admin: 05/05/25 09:16 Dose: 600 mg Glucose (Glucose Gel 15 Gm Gel..Gram.) 15 gm PO Q15M PRN; Protocol PRN Reason: per Hypoglycemia Standing Ord. Heparin Sodium (Porcine) (Heparin Sodium,Porcine 5,000 Unit/Ml Vial) 5,000 unit SUBCUT Q12H [facility] Last Admin: 05/05/25 05:03 Dose: 5,000 unit Insulin Human Lispro (Insulin Lispro 100 Unit/Ml 3 Ml Vial) 0 unit SUBCUT QIDACHS [facility]; Protocol Last Admin: 05/05/25 11:57 Dose: 2 unit Lactic Acid (Ammonium Lactate 12 % Lotion 226 Gm Bottle) 1 appl TOPICAL BID [facility]; Protocol Last Admin: 05/05/25 09:30 Dose: 1 appl Levofloxacin (Levofloxacin 750 Mg Tablet) 750 mg PO Q48H [facility] Last Admin: 05/05/25 11:57 Dose: 750 mg Levothyroxine Sodium (Levothyroxine Sodium 200 Mcg Tablet) 200 mcg PO DAILY@0600 [facility] Last Admin: 05/05/25 05:03 Dose: 200 mcg Lorazepam (Lorazepam 1 Mg Tablet) 1 mg PO Q6H PRN PRN Reason: Anxiety Last Admin: 05/05/25 15:58 Dose: 1 mg Nystatin (Nystatin Powder 15 Gm Bottle) 1 appl TOPICAL TID [facility]; Protocol Last Admin: 05/05/25 15:15 Dose: Not Given Sodium Chloride (0.9 % Sodium Chloride Flush 3 Ml Syringe) 3 ml IVFLUSH QSHIFT [facility] Last Admin: 05/05/25 09:17 Dose: 3 ml Home Medications ?Medication ?Instructions ?Recorded ?Confirmed ?Last Taken ?Type insulin glargine 100 unit/mL (3 25 unit subcut DAILY@1900 04/04/25 04/25/25 04/02/25 History mL) subcutaneous pen (Basaglar KwikPen U-100 Insulin) albuterol sulfate 90 mcg/actuation 2 puff inhalation Q6H PRN 04/25/25 04/25/25 Unknown History aerosol inhaler (Ventolin HFA) Shortness Of Breath Or Wheezing lorazepam 0.5 mg tablet (Ativan) 0.5 mg PO BID 04/25/25 04/25/25 Unknown History lorazepam 0.5 mg tablet (Ativan) 1 mg PO Q6H PRN Anxiety 04/25/25 04/25/25 Unknown History Physical Exam Vital Signs: Vital Signs: Last Vital Signs Temp 96.8 F 05/05/25 15:31 Pulse 69 05/05/25 16:53 Resp 18 05/05/25 16:53 BP 128/61 05/05/25 15:31 Pulse Ox 97 05/05/25 15:31 O2 Del Method BiPAP 05/05/25 15:31 O2 Flow Rate 3 05/05/25 15:31 FiO2 35 05/01/25 00:00 Oxygen Flow Rate 1 04/30/25 00:00 BMI result Body Mass Index 39.9 General: Elderly lady in acute distress, chronically ill and tired appearing Nutritional Appearance: well nourished and overweight Eyes: appearance normal, both eyes and all related structures; Alignment and Position: alignment normal and position normal Neck: No lymphadenopathy, no thyromegaly Resp: bilateral air entry equal, lung base crackles heard, occasional wheeze heard Cardio: Regular rate, regular rhythm; Heart sounds: S1 normal heart sound present and S2 normal heart sound present GI: soft, nontender, no guarding, no hepatosplenomegaly : bladder normal to inspection, bladder normal to palpation, no renal angle tenderness Skin: no rashes or lesions noted and elasticity normal Neuro: oriented to person, oriented to place, oriented to time and moves all extremities Results Labs 05/05/25 08:01 05/05/25 08:01 Labs: Short CBC 05/05/25 Range/Units 08:01 WBC 6.2 (4.8-10.8) X10*3/uL Hgb 7.4 L (12.0-16.0) g/dl Hct 24.8 L (37.0-47.0) % Plt Count 179 D (160-400) X10*3/uL BMP 05/05/25 08:01 Sodium 144 Potassium 4.9 Chloride 98 Carbon Dioxide 32 H BUN 82 H Creatinine 2.30 H Calcium 6.9 L Microbiology Microbiology Results: Microbiology 04/25/25 22:23 Urine Catheterized - Moyer Catheter Urine Culture - Final Ramila albicans 04/25/25 16:53 Blood - Venous Blood Culture - Final No growth after 5 days. 04/25/25 16:41 Blood - Venous Blood Culture - Final No growth after 5 days. 04/26/25 09:01 Tracheal Aspirate Gram Stain - Final 04/26/25 09:01 Tracheal Aspirate Sputum Culture - Final Pseudomonas aeruginosa Methicillin Res Staph Aureus 04/25/25 21:34 Trachea Gram Stain - Final 04/25/25 21:34 Trachea Sputum Culture - Final Pseudomonas aeruginosa Assessment and Plan (1) CHF (congestive heart failure): Qualifiers: Heart failure type: diastolic Heart failure chronicity: chronic Qualified Code(s): I50.32 - Chronic diastolic (congestive) heart failure Status: Acute (2) Pulmonary hypertension: Status: Acute (3) MARJORIE (acute kidney injury): Status: Acute (4) COPD (chronic obstructive pulmonary disease): Qualifiers: COPD type: emphysema Emphysema type: centrilobular Qualified Code(s): J43.2 - Centrilobular emphysema Status: Acute (5) Lymphedema: Status: Acute Plan Acute on chronic respiratory failure: Patient has history of underlying COPD and CHF, acute worsening of shortness of breath is secondary to Continue BiPAP support as tolerated, we will give breaks with high-flow oxygen Chest x-ray shows left sided pleural effusion, we will repeat chest x-ray and ultrasound of the chest Duo nebs around the clock, we will add Solu-Medrol 40 q.8h We will get respiratory viral panel Right-sided heart failure: Patient has heart failure with preserved ejection fraction, right-sided heart failure secondary to cor pulmonale TTE in July 2024 showed normal LV systolic function elevated RV SP and RA pressures Diuresis as tolerated GI: Feeds as tolerated during the breaks from BiPAP Renal: Acute on chronic kidney disease secondary to hypoperfusion and hypovolemia secondary to diuresis Creatinine stabilized or slightly improved when compared to yesterday with volume replacement Has 3.1gm proteinuria, can not ACEi or ARB due to MARJORIE We will closely monitor I's and O's Avoid nephrotoxic medications Heme: Chronic anemia, closely monitor H&H, transfuse for hemoglobin less than 7 grams/deciliter Endocrine: Blood sugars under control Sliding scale insulin as needed Infectious disease: Trach cultures upon admission positive for MRSA and Pseudomonas Treated with levofloxacin and doxycycline based on sensitivities We will send repeat blood cultures Musculoskeletal: Decubitus ulcer prevention protocol Lines: Peripheral Prophylaxis: Heparin, famotidine
[2025-05-05] MEDS: Furosemide 40 MG/4 ML VIAL IVPUSH (19:18)
[2025-05-05 20:27] LABS: Glucose, Whole Blood 92 mg/dL (60-115)
[2025-05-05 22:50] LABS: Appearance Urine Cloudy; Glucose Urine UA Negative (Negative); PH 6.0 (5.0-9.0); Specific Gravity - Urine 1.010 (1.005-1.025); UMIC TRIGGER UA YES
[2025-05-06] VITALS (26 sets, daily range): BP systolic 104–153; BP diastolic 39–78; PULSE 64–93; RESP 15–29; TEMP 36–36.7; O2SAT 89–99; BMI 45.0
[2025-05-06] MEDS: 0.9 % Sodium Chloride Flush 3 ML SYRINGE IVFLUSH ×4 (00:07→20:09)
[2025-05-06] MEDS: Albuterol/Iprat 2.5/0.5MG 3 ML AMPUL.NEB INHALE ×5 (02:15→20:22)
[2025-05-06 05:47] LABS: VBG HCO3 36 mmol/L (22-26); VBG O2 % Saturation 84.0 %
[2025-05-06 05:59] LABS: Hematocrit 24.4 % (37.0-47.0); Hemoglobin 7.3 g/dl (12.0-16.0); Imm Gran Abs Auto 0.07 X10*3/uL (0.00-0.03); Imm Gran Pct Auto 1.2 % (0.0-0.4); Lymphocytes Absolute Auto 0.1 X10*3/uL (1.2-4.9); MANUAL DIFF FLAG SCAN; Mean Corpuscular HGB Conc 29.9 g/dl (31.0-35.0); Mean Corpuscular Hemoglobin 27.5 pg (27.0-33.0); Mean Corpuscular Volume 92.1 fL (80.0-98.0); NRBC Abs Auto 0.000 X10*3/uL (0.0-0.012); NRBC Pct Auto 0.0 /100WBC (0.0-0.2); Platelet Count 174 X10*3/uL (160-400); Red Blood Count 2.65 X10*6/uL (4.20-5.50); SCAN SMEAR FLAG 1; White Blood Count 5.6 X10*3/uL (4.8-10.8)
[2025-05-06 06:00] LABS: Venous Blood Gas Refer to POC result
[2025-05-06 06:17] LABS: Alanine Aminotransferase < 6 U/L (0-31); Albumin Level 2.9 g/dL (3.5-5.0); Alkaline Phosphatase 64 U/L (39-117); Anion Gap 22 (12-20); Aspartate Amino Transferase 18 U/L (5-31); Blood Urea Nitrogen 81 mg/dL (9-16); Calcium 7.0 mg/dL (8.4-10.2); Carbon Dioxide 29 mmol/L (22-29); Chloride 97 mmol/L (96-108); Creatinine Clr Calc Pharmacy 24.8; Estimated Glomerular Filt Rate 22; Magnesium 1.6 mg/dL (1.6-2.6); Potassium 4.9 mmol/L (3.3-5.1); Sodium 143 mmol/L (135-145); Total Protein 6.1 g/dL (6.5-8.0)
--- NOTE | 2025-05-06 06:38 | HE.ICUCC ---
ICU Critical Care Nursing Note Patient admitted to ICU for acute/on chronic resp failure requiring rescue bipap ICU Day #:2 Neuro:Patient is A&Ox3 Cardiac: SR with BBB on telemetry Resp::LS clear/dim GI/:Indwelling francisco cath draining CYU/ BM 05/06/NPO Endocrine: diabetic POC Q6H Integumentary/Musculoskeletal:Venous stasis dermatitis bilateral lower legs/fungal rash under breast and abdominal folds. buttocks purple/reddened blanchable Infectious Disease:Droplet precautions for MRSA in sputum/pseudomonas Central Lines:US guided peripheral IV 20 TAJ/ 22 R forearm
[2025-05-06 07:33] LABS: Glucose, Whole Blood 202 mg/dL (60-115)
[2025-05-06] MEDS: Furosemide 40 MG/4 ML VIAL IVPUSH ×2 (08:15→17:20)
[2025-05-06] MEDS: Ammonium Lactate 12 % Lotion 226 GM BOTTLE 1 APPL TOPICAL ×2 (08:18→20:05)
[2025-05-06 09:42] LABS: Chlamydia pneumoniae PCR Not Detected (Not Detect.); Coronavirus 229E PCR Not Detected (Not Detect.); Coronavirus HKU1 PCR Not Detected (Not Detect.); Coronavirus NL63 PCR Not Detected (Not Detect.); Coronavirus OC43 PCR Not Detected (Not Detect.); RSV PCR Not Detected (Not Detect.); Rhino/Enterovirus PCR Not Detected (Not Detect.)
[2025-05-06 09:56] LABS: SARS-CoV-2 PCR Not Detected (Not Detect.)
[2025-05-06 09:57] LABS: Influenza A H1 PCR Not Detected (Not Detect.); Influenza A H1-2009 PCR Not Detected (Not Detect.); Influenza A H3 PCR Not Detected (Not Detect.)
[2025-05-06 11:36] LABS: Glucose, Whole Blood 160 mg/dL (60-115)
--- NOTE | 2025-05-06 12:35 | P.PNCC_ITS ---
Subjective Subjective Date of Service: 05/06/25 Interval History: Doing better with diuresis, maintaining sats above 88 on room air this morning Off BiPAP support since 06:00 Critical Care Time (minutes): 35 Physical Exam 2 Vital Signs: Vital Signs: Last Vital Signs Temp 96.8 F 05/06/25 12:00 Pulse 93 05/06/25 12:00 Resp 20 05/06/25 12:00 BP 123/57 L 05/06/25 12:00 Pulse Ox 89 L 05/06/25 12:00 O2 Del Method Oxymask 05/06/25 12:00 O2 Flow Rate 1.5 05/06/25 12:00 FiO2 32 05/06/25 09:00 Oxygen Flow Rate 1 04/30/25 00:00 BMI result Body Mass Index 39.9 General: Elderly lady in mild to moderate acute distress, sitting in the bed Nutritional Appearance: well nourished and morbidly obese Eyes: appearance normal, both eyes and all related structures; Alignment and Position: alignment normal and position normal Neck: No lymphadenopathy, no thyromegaly Resp: bilateral air entry equal, bilateral wheeze heard Cardio: Regular rate, regular rhythm; Heart sounds: S1 normal heart sound present and S2 normal heart sound present GI: soft, nontender, no guarding, no hepatosplenomegaly : bladder normal to inspection, bladder normal to palpation, no renal angle tenderness Skin: no rashes or lesions noted and elasticity normal Neuro: oriented to person, oriented to place, oriented to time and moves all extremities Objective Data Labs 05/06/25 05:39 05/06/25 05:39 Labs: Laboratory Results - last 24 hr 05/05/25 05/05/25 05/05/25 16:12 16:48 19:48 WBC RBC Hgb Hct MCV MCH MCHC RDW Plt Count MPV Immature Gran % (Auto) Neut % (Auto) Lymph % (Auto) [place] % (Auto) Eos % (Auto) Baso % (Auto) Lymph # (Auto) [place] # (Auto) Eos # (Auto) Baso # (Auto) Abs Immat Gran (auto) Absolute Neuts (auto) Absolute Nucleated RBC Nucleated RBC % (auto) Smear Tech's Comments VBG pH VBG pCO2 VBG pO2 VBG HCO3 VBG O2 Saturation VBG Base Excess Sodium Potassium Chloride Carbon Dioxide Anion Gap BUN Creatinine Estim Creat Clear Calc Estimated GFR POC Glucose 122 H 113 Random Glucose Calcium Phosphorus Magnesium Total Bilirubin AST ALT Alkaline Phosphatase Total Protein Albumin Urine Color Urine Appearance Urine pH Ur Specific [place] Urine Protein Urine Glucose (UA) Urine Ketones Urine Blood Urine Nitrite Ur Leukocyte Esterase Urine RBC Urine WBC Urine WBC Clumps Ur Squamous Epith Cells Urine Bacteria Hyaline Casts Urine Yeast Respiratory Panel [place] See Note Adenovirus (Rapid PCR) Not Detected B.pert (TEM-PCR) Not Detected B.parapertussis DNA PCR Not Detected C. pneumoniae DNA (PCR) Not Detected Coronavirus OC43 (PCR) Not Detected Coronavirus HKU1 (PCR) Not Detected Coronavirus 229E (PCR) Not Detected Coronavirus NL63 (PCR) Not Detected Human Metapneumovir PCR Not Detected Influenza A (RT-PCR) Not Detected Influenza A (H1) PCR Not Detected Influ A (H1/09) PCR Not Detected Influenza A (H3) PCR Not Detected Influenza B (RT-PCR) Not Detected M. pneumoniae (PCR) Not Detected Parainfluenza 1 (PCR) Not Detected Parainfluenza 2 (PCR) Not Detected Parainfluenza 3 (PCR) Not Detected Parainfluenza 4 (PCR) Not Detected RSV (PCR) Not Detected Entero/Rhino (PCR) Not Detected SARS-CoV-2 RNA (RT-PCR) Not Detected 05/05/25 05/05/25 05/06/25 20:20 22:32 05:39 WBC 5.6 RBC 2.65 L Hgb 7.3 L Hct 24.4 L MCV 92.1 MCH 27.5 MCHC 29.9 L RDW 16.6 H Plt Count 174 MPV 9.4 Immature Gran % (Auto) 1.2 H Neut % (Auto) 96.0 H Lymph % (Auto) 2.1 L [place] % (Auto) 0.5 L Eos % (Auto) 0.0 Baso % (Auto) 0.2 Lymph # (Auto) 0.1 L [place] # (Auto) 0.0 L Eos # (Auto) 0.0 Baso # (Auto) 0.0 Abs Immat Gran (auto) 0.07 H Absolute Neuts (auto) 5.4 Absolute Nucleated RBC 0.000 Nucleated RBC % (auto) 0.0 Smear Tech's Comments VERIFIED VBG pH VBG pCO2 VBG pO2 VBG HCO3 VBG O2 Saturation VBG Base Excess Sodium 143 Potassium 4.9 Chloride 97 Carbon Dioxide 29 Anion Gap 22 H BUN 81 H Creatinine 2.16 H Estim Creat Clear Calc 24.8 Estimated GFR 22 POC Glucose 92 Random Glucose 207 H Calcium 7.0 L Phosphorus 6.5 H Magnesium 1.6 Total Bilirubin 0.2 AST 18 ALT < 6 Alkaline Phosphatase 64 Total Protein 6.1 L Albumin 2.9 L Urine Color Yellow Urine Appearance Cloudy Urine pH 6.0 Ur Specific [place] 1.010 Urine Protein 100 (2+) H Urine Glucose (UA) Negative Urine Ketones Negative Urine Blood Small (1+) H Urine Nitrite Negative Ur Leukocyte Esterase Large (3+) H Urine RBC >20 H Urine WBC >50 H Urine WBC Clumps Present Ur Squamous Epith Cells 0-2 Urine Bacteria None Seen Hyaline Casts 6-10 Urine Yeast Present Respiratory Panel [place] Adenovirus (Rapid PCR) B.pert (TEM-PCR) B.parapertussis DNA PCR C. pneumoniae DNA (PCR) Coronavirus OC43 (PCR) Coronavirus HKU1 (PCR) Coronavirus 229E (PCR) Coronavirus NL63 (PCR) Human Metapneumovir PCR Influenza A (RT-PCR) Influenza A (H1) PCR Influ A (H1/09) PCR Influenza A (H3) PCR Influenza B (RT-PCR) M. pneumoniae (PCR) Parainfluenza 1 (PCR) Parainfluenza 2 (PCR) Parainfluenza 3 (PCR) Parainfluenza 4 (PCR) RSV (PCR) Entero/Rhino (PCR) SARS-CoV-2 RNA (RT-PCR) 05/06/25 05/06/25 05/06/25 05:43 07:29 11:16 WBC RBC Hgb Hct MCV MCH MCHC RDW Plt Count MPV Immature Gran % (Auto) Neut % (Auto) Lymph % (Auto) [place] % (Auto) Eos % (Auto) Baso % (Auto) Lymph # (Auto) [place] # (Auto) Eos # (Auto) Baso # (Auto) Abs Immat Gran (auto) Absolute Neuts (auto) Absolute Nucleated RBC Nucleated RBC % (auto) Smear Tech's Comments VBG pH 7.41 VBG pCO2 56 VBG pO2 61 VBG HCO3 36 H VBG O2 Saturation 84.0 VBG Base Excess 10.7 Sodium Potassium Chloride Carbon Dioxide Anion Gap BUN Creatinine Estim Creat Clear Calc Estimated GFR POC Glucose 202 H 160 H Random Glucose Calcium Phosphorus Magnesium Total Bilirubin AST ALT Alkaline Phosphatase Total Protein Albumin Urine Color Urine Appearance Urine pH Ur Specific [place] Urine Protein Urine Glucose (UA) Urine Ketones Urine Blood Urine Nitrite Ur Leukocyte Esterase Urine RBC Urine WBC Urine WBC Clumps Ur Squamous Epith Cells Urine Bacteria Hyaline Casts Urine Yeast Respiratory Panel [place] Adenovirus (Rapid PCR) B.pert (TEM-PCR) B.parapertussis DNA PCR C. pneumoniae DNA (PCR) Coronavirus OC43 (PCR) Coronavirus HKU1 (PCR) Coronavirus 229E (PCR) Coronavirus NL63 (PCR) Human Metapneumovir PCR Influenza A (RT-PCR) Influenza A (H1) PCR Influ A (H1/09) PCR Influenza A (H3) PCR Influenza B (RT-PCR) M. pneumoniae (PCR) Parainfluenza 1 (PCR) Parainfluenza 2 (PCR) Parainfluenza 3 (PCR) Parainfluenza 4 (PCR) RSV (PCR) Entero/Rhino (PCR) SARS-CoV-2 RNA (RT-PCR) Microbiology Microbiology Results: Microbiology 04/25/25 22:23 Urine Catheterized - Moyer Catheter Urine Culture - Final Ramila albicans 04/25/25 16:53 Blood - Venous Blood Culture - Final No growth after 5 days. 04/25/25 16:41 Blood - Venous Blood Culture - Final No growth after 5 days. 04/26/25 09:01 Tracheal Aspirate Gram Stain - Final 04/26/25 09:01 Tracheal Aspirate Sputum Culture - Final Pseudomonas aeruginosa Methicillin Res Staph Aureus 04/25/25 21:34 Trachea Gram Stain - Final 04/25/25 21:34 Trachea Sputum Culture - Final Pseudomonas aeruginosa Progress Note: A&P Assessment and plan (1) Pulmonary hypertension: Status: Acute (2) MARJORIE (acute kidney injury): Status: Acute (3) COPD (chronic obstructive pulmonary disease): Status: Acute Plan Acute on chronic respiratory failure: Patient has history of underlying COPD and CHF, acute worsening of shortness of breath is secondary to pulmonary edema. On Lasix 40 mg b.i.d., net-1.5 L over past 24 hours and her breathing improved and she is okay on room air this morning. Doing well on simple mask, BiPAP if needed during the night. Chest x-ray shows left sided pleural effusion, bedside ultrasound showing B lines per bilaterally and a small left-sided pleural effusion suggestive of pulmonary edema. Duo nebs around the clock, continue Solu-Medrol 40 mg daily respiratory viral panel negative Right-sided heart failure: Patient has heart failure with preserved ejection fraction, right-sided heart failure secondary to cor pulmonale TTE in July 2024 showed normal LV systolic function elevated RV SP and RA pressures Continue Lasix to keep fluid balance net negative GI: Feeds as tolerated during the breaks from BiPAP Renal: Acute on chronic kidney disease secondary to hypoperfusion and hypovolemia secondary to diuresis Creatinine down to 2.16 this morning Has 3.1gm proteinuria, can not ACEi or ARB due to MARJORIE We will closely monitor I's and O's Avoid nephrotoxic medications Heme: Chronic anemia, closely monitor H&H, transfuse for hemoglobin less than 7 grams/deciliter Endocrine: Blood sugars under control Sliding scale insulin as needed Infectious disease: Trach cultures upon admission positive for MRSA and Pseudomonas Treated with levofloxacin and doxycycline based on sensitivities repeat blood cultures pending, urine dirty Musculoskeletal: Decubitus ulcer prevention protocol Lines: Peripheral Prophylaxis: Heparin, famotidine Quality Stroke Does the patient have a stroke diagnosis?: No VTE Prior VTE?: No VTE Risk Level:: Medical - moderate - high VTE Device Contraindication: N/A - Device Ordered VTE Drug Contraindication: N/A - Med Ordered
[2025-05-06 16:40] LABS: Glucose, Whole Blood 218 mg/dL (60-115)
[2025-05-06 19:56] LABS: Glucose, Whole Blood 248 mg/dL (60-115)
[2025-05-06 21:59] LABS: Glucose, Whole Blood 259 mg/dL (60-115)
[2025-05-07] VITALS (13 sets, daily range): BP systolic 118–147; BP diastolic 55–69; PULSE 65–90; RESP 18–26; TEMP 36.1–37.4; O2SAT 92–99
[2025-05-07 06:59] LABS: Glucose, Whole Blood 152 mg/dL (60-115)
[2025-05-07] MEDS: Furosemide 40 MG/4 ML VIAL IVPUSH ×2 (07:36→17:09)
[2025-05-07] MEDS: 0.9 % Sodium Chloride Flush 3 ML SYRINGE IVFLUSH ×3 (07:39→21:46)
[2025-05-07] MEDS: Artificial Tears 15 ML DROPS 1 DROP EYE-BOTH (07:40)
[2025-05-07] MEDS: Ammonium Lactate 12 % Lotion 226 GM BOTTLE 1 APPL TOPICAL ×2 (07:40→21:47)
[2025-05-07] MEDS: Albuterol/Iprat 2.5/0.5MG 3 ML AMPUL.NEB INHALE ×4 (07:59→21:03)
[2025-05-07 10:52] LABS: Glucose, Whole Blood 200 mg/dL (60-115)
--- NOTE | 2025-05-07 13:22 | HO.PM.IMPN ---
Subjective Subjective Date of Service: 05/07/25 Interval History: Seen and evaluated this morning Feels little better but reporting dyspnea and PND stalbe O2 readings Moving her bowels Making -ve balance with good urine output no other events Review of Systems Review of Systems: Yes all other systems are reviewed and are negative Physical Exam Vital Signs: Vital Signs: Last Vital Signs Temp 98.0 F 05/07/25 11:08 Pulse 78 05/07/25 11:35 Resp 18 05/07/25 11:35 BP 141/65 H 05/07/25 11:08 Pulse Ox 93 05/07/25 11:08 O2 Del Method Oxymask 05/07/25 11:08 O2 Flow Rate 2 05/07/25 11:08 FiO2 32 05/06/25 09:00 Oxygen Flow Rate 1 04/30/25 00:00 BMI result Body Mass Index 45.0 Const: Other: Constitutional : interactive, not in distress Cardiovascular : no JVP, no lower extremity edema Respiratory : bilateral chest movement, not in resp distress , basal fine crackles, on O2 supplement Gastrointestinal: soft, lax, Non tender Skin : Warm, Dry Neurological : Alert & oriented to self and place , No focal deficit Objective Data Active Medications Acetaminophen (Acetaminophen 325 Mg Tablet) 650 mg PO Q6H PRN PRN Reason: Fever >101 Last Admin: 05/03/25 10:55 Dose: 650 mg Documented By: SOM Albuterol/Ipratropium (Albuterol/Iprat 2.5/0.5mg 3 Ml Ampul.Neb) 3 ml INHALE RQ4H WHILE AWAKE [facility] Last Admin: 05/07/25 11:33 Dose: 3 ml Documented By: ALBARO Albuterol/Ipratropium (Albuterol/Iprat 2.5/0.5mg 3 Ml Ampul.Neb) 3 ml INHALE Q2H PRN PRN Reason: Shortness of Breath/Wheezing Last Admin: 05/06/25 02:15 Dose: 3 ml Documented By: SAULO Artificial Tears (Artificial Tears 15 Ml Drops) 1 drop EYE-BOTH Q2H PRN PRN Reason: Dry Eyes Last Admin: 05/07/25 07:40 Dose: 1 drop Documented By: CLIFFORD Atorvastatin Calcium (Atorvastatin Calcium 40 Mg Tablet) 40 mg PO BEDTIME [facility] Last Admin: 05/06/25 19:58 Dose: 40 mg Documented By: RICKEY Dextrose (Dextrose 50 % 25 Gm/50 Ml Syringe) 25 gm IVPUSH Q15M PRN; Protocol PRN Reason: per Hypoglycemia Standing Ord. Last Admin: 04/27/25 01:38 Dose: 25 gm Documented By: TRUE Dextrose (Dextrose 50 % 25 Gm/50 Ml Syringe) 25 gm IVPUSH Q15M PRN; Protocol PRN Reason: per Hypoglycemia Standing Ord. Doxycycline Monohydrate (Doxycycline Monohydrate 100 Mg Capsule) 100 mg PO Q12H [facility] Last Admin: 05/07/25 10:54 Dose: 100 mg Documented By: CLIFFORD Famotidine (Famotidine/Pf 20 Mg/2 Ml Vial) 10 mg IVPUSH DAILY [facility] Last Admin: 05/07/25 07:37 Dose: 10 mg Documented By: CLIFFORD Furosemide (Furosemide 40 Mg/4 Ml Vial) 40 mg IVPUSH BID@0900,1800 [facility]; Protocol Last Admin: 05/07/25 07:36 Dose: 40 mg Documented By: CLIFFORD Gemfibrozil (Gemfibrozil 600 Mg Tablet) 600 mg PO BID [facility] Last Admin: 05/07/25 07:39 Dose: 600 mg Documented By: CLIFFORD Glucose (Glucose Gel 15 Gm Gel..Gram.) 15 gm PO Q15M PRN; Protocol PRN Reason: per Hypoglycemia Standing Ord. Heparin Sodium (Porcine) (Heparin Sodium,Porcine 5,000 Unit/Ml Vial) 5,000 unit SUBCUT Q12H [facility] Last Admin: 05/07/25 05:40 Dose: 5,000 unit Documented By: RICKEY Hydromorphone HCl (Hydromorphone Hcl 0.5 Mg/0.5 Ml Syringe) 0.5 mg IVPUSH Q3H PRN; Protocol PRN Reason: distress Last Admin: 05/07/25 11:04 Dose: 0.5 mg Documented By: CLIFFORD Insulin Human Lispro (Insulin Lispro 100 Unit/Ml 3 Ml Vial) 0 unit SUBCUT QIDACHS [facility]; Protocol Last Admin: 05/07/25 10:54 Dose: 2 unit Documented By: CLIFFORD Lactic Acid (Ammonium Lactate 12 % Lotion 226 Gm Bottle) 1 appl TOPICAL BID [facility]; Protocol Last Admin: 05/07/25 07:40 Dose: 1 appl Documented By: CLIFFORD Levofloxacin (Levofloxacin 750 Mg Tablet) 750 mg PO Q48H [facility] Last Admin: 05/07/25 10:54 Dose: 750 mg Documented By: CLIFFORD Levothyroxine Sodium (Levothyroxine Sodium 200 Mcg Tablet) 200 mcg PO DAILY@0600 [facility] Last Admin: 05/07/25 05:40 Dose: 200 mcg Documented By: RICKEY Lorazepam (Lorazepam 1 Mg Tablet) 1 mg PO Q6H PRN PRN Reason: Anxiety Last Admin: 05/07/25 07:39 Dose: 1 mg Documented By: CLIFFORD Methylprednisolone Sodium Succinate (Methylprednisolone Sod Succ 40 Mg Vial) 40 mg IVPUSH DAILY [facility] Last Admin: 05/07/25 07:38 Dose: 40 mg Documented By: CLIFFORD Nystatin (Nystatin Powder 15 Gm Bottle) 1 appl TOPICAL TID [facility]; Protocol Last Admin: 05/07/25 07:39 Dose: 1 appl Documented By: CLIFFORD Sodium Chloride (0.9 % Sodium Chloride Flush 3 Ml Syringe) 3 ml IVFLUSH QSHIFT [facility] Last Admin: 05/07/25 07:39 Dose: 3 ml Documented By: CLIFFORD Labs 05/06/25 05:39 05/06/25 05:39 Labs: Laboratory Results - last 24 hr 05/06/25 05/06/25 05/06/25 16:22 19:46 21:55 POC Glucose 218 H 248 H 259 H 05/07/25 05/07/25 06:52 10:46 POC Glucose 152 H 200 H Microbiology Microbiology Results: Microbiology 05/05/25 18:17 Blood Culture - Preliminary Blood - Venous No growth after 24 hours. 05/05/25 18:17 Blood Culture - Preliminary Blood - Venous No growth after 24 hours. Assessment and Plan (1) CHF (congestive heart failure): Status: Acute (2) Pulmonary hypertension: Status: Acute (3) MARJORIE (acute kidney injury): Status: Acute (4) COPD (chronic obstructive pulmonary disease): Status: Acute (5) Lymphedema: Status: Acute (6) Acute on chronic respiratory failure with hypoxemia: Status: Acute Plan 79F PMH chronic hypoxic respiratory failure on 2 L home O2 due to COPD, morbid obesity with obstructive sleep apnea noncompliant with CPAP, chronic right-sided and diastolic CHF, CKD 4, diabetes, hypertension, hyperlipidemia presented on 04/25 with shortness of breath and hypoxia and was intubabated and mechanically ventilated and admitted to the ICU where she was treated with PNA with sputum culture growing MRSA and Pseudomoas, extubated and trialed on NIPPV and transferred to medical floor on 04/29. Back to ICU on 05/05 as she was treated for fluid overload and anthony back to floor on 05/06. Acute on chronic respiratory failure 2/2 COPD and dCHF exacerbations Chest x-ray shows left sided pleural effusion and pulm edema Continuve IV Lasix Duo nebs around the clock, continue Solu-Medrol 40 mg daily on Levaquin Q48 Hr and Doxycycline Mask O2 supplement and BiPAP if needed during the day and always at night per Pulm rec Pulm input appreciated, 14 days Abx and diuresis, avoid Benzos\Opioids wean O2 down as tolerated PT eval Right-sided heart failure Patient has heart failure with preserved ejection fraction, right-sided heart failure secondary to cor pulmonale TTE in July 2024 showed normal LV systolic function elevated RV SP and RA pressures Continue Lasix to keep fluid balance net negative DMII SSI, Insulin lispro diabetic diet Acute on chronic kidney disease secondary to hypoperfusion and hypovolemia secondary to diuresis Creatinine down to 2.16 can not ACEi or ARB due to MARJORIE closely monitor I's and O's Avoid nephrotoxic medications follow BMP Chronic anemia monitor H&H, transfuse for hemoglobin less than 7 grams/deciliter positive MRSA and Pseudomonas cultures done from trach while intupated Treated with levofloxacin and doxycycline based on sensitivities repeat blood cultures pending, urine dirty DVT Prophylaxis Heparin Quality Stroke Does the patient have a stroke diagnosis?: No VTE Prior VTE?: No VTE Risk Level:: Medical - moderate - high VTE Device Contraindication: N/A - Device Ordered VTE Drug Contraindication: N/A - Med Ordered
[2025-05-07 16:26] LABS: Glucose, Whole Blood 240 mg/dL (60-115)
[2025-05-07 20:38] LABS: Glucose, Whole Blood 200 mg/dL (60-115)
[2025-05-08] VITALS (12 sets, daily range): BP systolic 108–148; BP diastolic 52–64; PULSE 63–91; RESP 18–22; TEMP 36.3–37.4; O2SAT 93–99
[2025-05-08 06:59] LABS: MANUAL DIFF FLAG NO
[2025-05-08 07:07] LABS: Hematocrit 24.6 % (37.0-47.0); Hemoglobin 7.2 g/dl (12.0-16.0); Imm Gran Abs Auto 0.03 X10*3/uL (0.00-0.03); Imm Gran Pct Auto 0.5 % (0.0-0.4); Lymphocytes Absolute Auto 0.8 X10*3/uL (1.2-4.9); Mean Corpuscular HGB Conc 29.3 g/dl (31.0-35.0); Mean Corpuscular Hemoglobin 27.5 pg (27.0-33.0); Mean Corpuscular Volume 93.9 fL (80.0-98.0); NRBC Abs Auto 0.000 X10*3/uL (0.0-0.012); NRBC Pct Auto 0.0 /100WBC (0.0-0.2); Platelet Count 189 X10*3/uL (160-400); Red Blood Count 2.62 X10*6/uL (4.20-5.50); White Blood Count 6.7 X10*3/uL (4.8-10.8)
[2025-05-08 07:21] LABS: Anion Gap 19 (12-20); Blood Urea Nitrogen 93 mg/dL (9-16); Calcium 7.1 mg/dL (8.4-10.2); Carbon Dioxide 33 mmol/L (22-29); Chloride 98 mmol/L (96-108); Creatinine Clr Calc Pharmacy 27.5; Estimated Glomerular Filt Rate 23; Potassium 3.7 mmol/L (3.3-5.1); Sodium 146 mmol/L (135-145)
[2025-05-08] MEDS: Albuterol/Iprat 2.5/0.5MG 3 ML AMPUL.NEB INHALE ×4 (07:49→19:34)
[2025-05-08 08:04] LABS: Glucose, Whole Blood 110 mg/dL (60-115)
[2025-05-08] MEDS: Furosemide 40 MG/4 ML VIAL IVPUSH ×2 (08:07→17:42)
[2025-05-08] MEDS: 0.9 % Sodium Chloride Flush 3 ML SYRINGE IVFLUSH ×3 (08:08→21:17)
[2025-05-08] MEDS: Ammonium Lactate 12 % Lotion 226 GM BOTTLE 1 APPL TOPICAL ×2 (08:09→21:16)
--- NOTE | 2025-05-08 09:38 | P.PNNP_ITS ---
Subjective Subjective Date of Service: 05/08/25 Interval history: Following for MARJORIE, Here with pneumonia. Patient reports her breathing feels better this a.m. on 2L. Creatinine 2.09 today, 2.16 on 05/06. Physical Exam 2 Vital Signs: Vital Signs: Last Vital Signs Temp 98.3 F 05/08/25 08:00 Pulse 70 05/08/25 08:00 Resp 20 05/08/25 08:00 BP 111/56 L 05/08/25 08:00 Pulse Ox 98 05/08/25 08:00 O2 Del Method Oxymask 05/08/25 08:00 O2 Flow Rate 2 05/08/25 08:00 FiO2 32 05/06/25 09:00 Oxygen Flow Rate 1 04/30/25 00:00 BMI result Body Mass Index 45.0 Const: General: no acute distress, alert and awake Resp: Effort & Inspection: normal respiratory effort and able to speak in complete sentences Auscultation: clear to auscultation bilaterally Cardio: Rate: regular rate Rhythm: regular rhythm Heart sounds: S1 normal heart sound present and S2 normal heart sound present GI: Palpation (GI): Soft to palpation and nontender Skin: Rashes: no rashes Extrem: General: No edema Objective Data Labs 05/08/25 06:31 05/08/25 06:31 Labs: Laboratory Results - last 24 hr 05/07/25 05/07/25 05/07/25 10:46 16:21 20:35 WBC RBC Hgb Hct MCV MCH MCHC RDW Plt Count MPV Immature Gran % (Auto) Neut % (Auto) Lymph % (Auto) [place] % (Auto) Eos % (Auto) Baso % (Auto) Lymph # (Auto) [place] # (Auto) Eos # (Auto) Baso # (Auto) Abs Immat Gran (auto) Absolute Neuts (auto) Absolute Nucleated RBC Nucleated RBC % (auto) Sodium Potassium Chloride Carbon Dioxide Anion Gap BUN Creatinine Estim Creat Clear Calc Estimated GFR POC Glucose 200 H 240 H 200 H Random Glucose Calcium 05/08/25 05/08/25 06:31 07:59 WBC 6.7 RBC 2.62 L Hgb 7.2 L Hct 24.6 L MCV 93.9 MCH 27.5 MCHC 29.3 L RDW 16.7 H Plt Count 189 MPV 9.1 L Immature Gran % (Auto) 0.5 H Neut % (Auto) 79.6 H Lymph % (Auto) 11.4 L [place] % (Auto) 6.6 Eos % (Auto) 1.4 Baso % (Auto) 0.5 Lymph # (Auto) 0.8 L [place] # (Auto) 0.4 Eos # (Auto) 0.1 Baso # (Auto) 0.0 Abs Immat Gran (auto) 0.03 Absolute Neuts (auto) 5.3 Absolute Nucleated RBC 0.000 Nucleated RBC % (auto) 0.0 Sodium 146 H Potassium 3.7 D Chloride 98 Carbon Dioxide 33 H Anion Gap 19 BUN 93 H Creatinine 2.09 H Estim Creat Clear Calc 27.5 Estimated GFR 23 POC Glucose 110 Random Glucose 113 Calcium 7.1 L Microbiology Microbiology Results: Microbiology 05/05/25 18:17 Blood - Venous Blood Culture - Preliminary No growth after 48 hours. 05/05/25 18:17 Blood - Venous Blood Culture - Preliminary No growth after 48 hours. 04/25/25 22:23 Urine Catheterized - Moyer Catheter Urine Culture - Final Ramila albicans 04/25/25 16:53 Blood - Venous Blood Culture - Final No growth after 5 days. 04/25/25 16:41 Blood - Venous Blood Culture - Final No growth after 5 days. 04/26/25 09:01 Tracheal Aspirate Gram Stain - Final 04/26/25 09:01 Tracheal Aspirate Sputum Culture - Final Pseudomonas aeruginosa Methicillin Res Staph Aureus 04/25/25 21:34 Trachea Gram Stain - Final 04/25/25 21:34 Trachea Sputum Culture - Final Pseudomonas aeruginosa Procedures Date of Service Date of Service: 05/08/25 Assessment & Plan Assessment and plan (1) MARJORIE (acute kidney injury): Status: Acute Plan MARJORIE on CKD, initially likely from hypoperfusion from hypovolemia. Creatinine is stable/plateaued. Renal US without obstruction. urine protein/creatinine ratio increased from ~2.5 to ~3.1. Repeat urinalysis + protein, +blood, +WBCs, culture without growth. May consider renal biopsy as outpatient for further workup. recommend daily electrolyte and renal function studies regular blood pressure checks and I&O monitoring avoid nephrotoxins continue supportive care Discussed with Dr Baires. Time Spent With Patient Time: Total time managing care of this patient today ____ minutes. Progress Note: Quality Stroke Does the patient have a stroke diagnosis?: No
--- NOTE | 2025-05-08 10:39 | MHC.CM.PN ---
Addendum entered by Kary Rehman RN 05/08/25 10:41: PT WILL DC TO [facility] ONCE MEDICALLY CLEARED. Original Note: EMR REVIEWED, PT W/MARJORIE/PNA, PT IMPROVING AND PER ANTIC PT WILL BE READY FOR DC TO STR TOMORROW 05/09, CM WILL CONT TO FOLLOW DC NEEDS.
[2025-05-08 12:00] LABS: Glucose, Whole Blood 200 mg/dL (60-115)
[2025-05-08 15:59] LABS: Glucose, Whole Blood 239 mg/dL (60-115)
--- NOTE | 2025-05-08 16:11 | MHC.SLORD ---
Speech Language Pathology Order Status: Pt not seen for dysphagia tx today. [employer] to followup tomorrow.
--- NOTE | 2025-05-08 18:23 | HO.PM.IMPN ---
Subjective Subjective Date of Service: 05/09/25 Interval History: Seen and evaluated where pt is resting comfortably in bed Overall feels improved A little cough and SOB No N/V; has been tolerating diet Good urine output No acute events overnight Review of Systems Review of Systems: Yes all other systems are reviewed and are negative Physical Exam Vital Signs: Vital Signs: Last Vital Signs Temp 97.3 F 05/08/25 16:00 Pulse 78 05/08/25 16:00 Resp 20 05/08/25 16:00 BP 137/60 05/08/25 16:00 Pulse Ox 96 05/08/25 16:00 O2 Del Method Oxymask 05/08/25 16:00 O2 Flow Rate 2 05/08/25 16:00 FiO2 32 05/06/25 09:00 Oxygen Flow Rate 1 04/30/25 00:00 BMI result Body Mass Index 45.0 General: AOx3, no acute distress Resp: Coarse breath sounds bilaterally CVS: S1, S2, RRR GI: +BS, NT, no distention Skin: Warm, dry Neuro: Cranial nerves II-XII grossly intact bilaterally. Motor grossly intact bilaterally Extremities: No edema Psych: Appropriate affect Objective Data Active Medications Acetaminophen (Acetaminophen 325 Mg Tablet) 650 mg PO Q6H PRN PRN Reason: Fever >101 Last Admin: 05/08/25 11:29 Dose: 650 mg Documented By: ITA Albuterol/Ipratropium (Albuterol/Iprat 2.5/0.5mg 3 Ml Ampul.Neb) 3 ml INHALE RQ4H WHILE AWAKE [facility] Last Admin: 05/08/25 15:22 Dose: 3 ml Documented By: ANASTASIYA Albuterol/Ipratropium (Albuterol/Iprat 2.5/0.5mg 3 Ml Ampul.Neb) 3 ml INHALE Q2H PRN PRN Reason: Shortness of Breath/Wheezing Last Admin: 05/06/25 02:15 Dose: 3 ml Documented By: SAULO Artificial Tears (Artificial Tears 15 Ml Drops) 1 drop EYE-BOTH Q2H PRN PRN Reason: Dry Eyes Last Admin: 05/07/25 07:40 Dose: 1 drop Documented By: CLIFFORD Atorvastatin Calcium (Atorvastatin Calcium 40 Mg Tablet) 40 mg PO BEDTIME [facility] Last Admin: 05/07/25 21:46 Dose: 40 mg Documented By: YOLY Dextrose (Dextrose 50 % 25 Gm/50 Ml Syringe) 25 gm IVPUSH Q15M PRN; Protocol PRN Reason: per Hypoglycemia Standing Ord. Last Admin: 04/27/25 01:38 Dose: 25 gm Documented By: TRUE Dextrose (Dextrose 50 % 25 Gm/50 Ml Syringe) 25 gm IVPUSH Q15M PRN; Protocol PRN Reason: per Hypoglycemia Standing Ord. Doxycycline Monohydrate (Doxycycline Monohydrate 100 Mg Capsule) 100 mg PO Q12H [facility] Last Admin: 05/08/25 11:29 Dose: 100 mg Documented By: ITA Famotidine (Famotidine/Pf 20 Mg/2 Ml Vial) 10 mg IVPUSH DAILY [facility] Last Admin: 05/08/25 08:07 Dose: 10 mg Documented By: DUY Furosemide (Furosemide 40 Mg/4 Ml Vial) 40 mg IVPUSH BID@0900,1800 [facility]; Protocol Last Admin: 05/08/25 17:42 Dose: 40 mg Documented By: DUY Gemfibrozil (Gemfibrozil 600 Mg Tablet) 600 mg PO BID [facility] Last Admin: 05/08/25 08:08 Dose: 600 mg Documented By: DUY Glucose (Glucose Gel 15 Gm Gel..Gram.) 15 gm PO Q15M PRN; Protocol PRN Reason: per Hypoglycemia Standing Ord. Heparin Sodium (Porcine) (Heparin Sodium,Porcine 5,000 Unit/Ml Vial) 5,000 unit SUBCUT Q12H [facility] Last Admin: 05/08/25 17:42 Dose: 5,000 unit Documented By: DUY Hydromorphone HCl (Hydromorphone Hcl 0.5 Mg/0.5 Ml Syringe) 0.5 mg IVPUSH Q3H PRN; Protocol PRN Reason: distress, Pain 7-10 Last Admin: 05/08/25 08:18 Dose: 0.5 mg Documented By: DUY Insulin Human Lispro (Insulin Lispro 100 Unit/Ml 3 Ml Vial) 0 unit SUBCUT QIDACHS [facility]; Protocol Last Admin: 05/08/25 16:27 Dose: 4 unit Documented By: DUY Lactic Acid (Ammonium Lactate 12 % Lotion 226 Gm Bottle) 1 appl TOPICAL BID GEO; Protocol Last Admin: 05/08/25 08:09 Dose: 1 appl Documented By: DUY Levofloxacin (Levofloxacin 750 Mg Tablet) 750 mg PO Q48H [facility] Last Admin: 05/07/25 10:54 Dose: 750 mg Documented By: CLIFFORD Levothyroxine Sodium (Levothyroxine Sodium 200 Mcg Tablet) 200 mcg PO DAILY@0600 [facility] Last Admin: 05/08/25 05:44 Dose: 200 mcg Documented By: YOLY Lorazepam (Lorazepam 1 Mg Tablet) 1 mg PO Q6H PRN PRN Reason: Anxiety Last Admin: 05/08/25 11:29 Dose: 1 mg Documented By: IAT Methylprednisolone Sodium Succinate (Methylprednisolone Sod Succ 40 Mg Vial) 40 mg IVPUSH DAILY [facility] Last Admin: 05/08/25 08:08 Dose: 40 mg Documented By: DUY Nystatin (Nystatin Powder 15 Gm Bottle) 1 appl TOPICAL TID GEO; Protocol Last Admin: 05/08/25 16:28 Dose: 1 appl Documented By: DUY Sodium Chloride (0.9 % Sodium Chloride Flush 3 Ml Syringe) 3 ml IVFLUSH QSHIFT [facility] Last Admin: 05/08/25 08:26 Dose: 3 ml Documented By: DUY Labs 05/08/25 06:31 05/08/25 06:31 Labs: Laboratory Results - last 24 hr 05/07/25 05/08/25 05/08/25 20:35 06:31 07:59 MCV 93.9 MCH 27.5 MCHC 29.3 L RDW 16.7 H Plt Count 189 MPV 9.1 L Immature Gran % (Auto) 0.5 H Neut % (Auto) 79.6 H Lymph % (Auto) 11.4 L [place] % (Auto) 6.6 Eos % (Auto) 1.4 Baso % (Auto) 0.5 Lymph # (Auto) 0.8 L [place] # (Auto) 0.4 Eos # (Auto) 0.1 Baso # (Auto) 0.0 Abs Immat Gran (auto) 0.03 Absolute Neuts (auto) 5.3 Absolute Nucleated RBC 0.000 Nucleated RBC % (auto) 0.0 Anion Gap 19 Estim Creat Clear Calc 27.5 Estimated GFR 23 POC Glucose 200 H 110 Random Glucose 113 Calcium 7.1 L 05/08/25 05/08/25 11:56 15:55 MCV MCH MCHC RDW Plt Count MPV Immature Gran % (Auto) Neut % (Auto) Lymph % (Auto) [place] % (Auto) Eos % (Auto) Baso % (Auto) Lymph # (Auto) [place] # (Auto) Eos # (Auto) Baso # (Auto) Abs Immat Gran (auto) Absolute Neuts (auto) Absolute Nucleated RBC Nucleated RBC % (auto) Anion Gap Estim Creat Clear Calc Estimated GFR POC Glucose 200 H 239 H Random Glucose Calcium Microbiology Microbiology Results: Microbiology 05/05/25 18:17 Blood Culture - Preliminary Blood - Venous No growth after 48 hours. 05/05/25 18:17 Blood Culture - Preliminary Blood - Venous No growth after 48 hours. Assessment and Plan (1) Acute on chronic respiratory failure with hypoxemia: Status: Acute Plan 79F PMH chronic hypoxic respiratory failure on 2 L home O2 due to COPD, morbid obesity with obstructive sleep apnea noncompliant with CPAP, chronic right-sided and diastolic CHF, CKD 4, diabetes, hypertension, hyperlipidemia presented on 04/25 with shortness of breath and hypoxia and was intubabated and mechanically ventilated and admitted to the ICU where she was treated with PNA with sputum culture growing MRSA and Pseudomoas, extubated and trialed on NIPPV and transferred to medical floor on 04/29. Back to ICU on 05/05 as she was treated for fluid overload and anthony back to floor on 05/06. Acute on chronic respiratory failure 2/2 COPD and dCHF exacerbations Chest x-ray shows left sided pleural effusion and pulm edema Continuve IV Lasix Duo nebs around the clock, continue Solu-Medrol 40 mg daily on Levaquin Q48 Hr and Doxycycline Mask O2 supplement and BiPAP if needed during the day and always at night per Pulm rec Pulm input appreciated, 14 days Abx and diuresis, avoid Benzos\Opioids wean O2 down as tolerated PT eval Right-sided heart failure Patient has heart failure with preserved ejection fraction, right-sided heart failure secondary to cor pulmonale TTE in July 2024 showed normal LV systolic function elevated RV SP and RA pressures Continue Lasix to keep fluid balance net negative DMII SSI, Insulin lispro diabetic diet Acute on chronic kidney disease secondary to hypoperfusion and hypovolemia secondary to diuresis Creatinine down to 2.16 can not ACEi or ARB due to MARJORIE closely monitor I's and O's Avoid nephrotoxic medications follow BMP Chronic anemia monitor H&H, transfuse for hemoglobin less than 7 grams/deciliter positive MRSA and Pseudomonas cultures done from trach while intupated Treated with levofloxacin and doxycycline based on sensitivities repeat blood cultures pending, urine dirty DVT Prophylaxis Heparin Requires continue hospital stay due to need for IV abx and steroids, as well as close respiratory monitoring. Quality Stroke Does the patient have a stroke diagnosis?: No VTE Prior VTE?: No VTE Risk Level:: Medical - moderate - high VTE Device Contraindication: N/A - Device Ordered VTE Drug Contraindication: N/A - Med Ordered
[2025-05-08 20:46] LABS: Glucose, Whole Blood 260 mg/dL (60-115)
[2025-05-09] VITALS (7 sets, daily range): BP systolic 118–186; BP diastolic 54–81; PULSE 75–105; RESP 18–28; TEMP 36.4–37.1; O2SAT 88–99
[2025-05-09] MEDS: Albuterol/Iprat 2.5/0.5MG 3 ML AMPUL.NEB INHALE ×3 (00:17→11:58)
[2025-05-09 07:02] LABS: Anion Gap 19 (12-20); Blood Urea Nitrogen 97 mg/dL (9-16); Calcium 7.0 mg/dL (8.4-10.2); Carbon Dioxide 32 mmol/L (22-29); Chloride 98 mmol/L (96-108); Creatinine Clr Calc Pharmacy 26.4; Estimated Glomerular Filt Rate 22; Potassium 3.5 mmol/L (3.3-5.1); Sodium 145 mmol/L (135-145)
[2025-05-09] MEDS: Furosemide 40 MG/4 ML VIAL IVPUSH (07:43)
[2025-05-09 07:47] LABS: Glucose, Whole Blood 155 mg/dL (60-115)
[2025-05-09] MEDS: 0.9 % Sodium Chloride Flush 3 ML SYRINGE IVFLUSH (07:55)
[2025-05-09] MEDS: Ammonium Lactate 12 % Lotion 226 GM BOTTLE 1 APPL TOPICAL (08:02)
--- NOTE | 2025-05-09 10:11 | P.PNNP_ITS ---
Subjective Subjective Date of Service: 05/09/25 Interval history: Following for MARJORIE, Here with pneumonia. Patient reports her breathing feels worse today, due for breathing treatment per pt. Creatinine 2.18 today. Physical Exam 2 Vital Signs: Vital Signs: Last Vital Signs Temp 98.6 F 05/09/25 07:37 Pulse 98 05/09/25 07:50 Resp 20 05/09/25 07:50 BP 130/59 L 05/09/25 07:37 Pulse Ox 94 05/09/25 07:37 O2 Del Method Oxymask 05/09/25 07:37 O2 Flow Rate 2 05/09/25 07:37 FiO2 32 05/06/25 09:00 Oxygen Flow Rate 1 04/30/25 00:00 BMI result Body Mass Index 45.0 Const: General: no acute distress, alert and awake Resp: Effort & Inspection: normal respiratory effort and able to speak in complete sentences Auscultation: clear to auscultation bilaterally Cardio: Rate: regular rate Rhythm: regular rhythm Heart sounds: S1 normal heart sound present and S2 normal heart sound present GI: Palpation (GI): Soft to palpation and nontender Skin: Rashes: no rashes Extrem: General: No edema Objective Data Labs 05/08/25 06:31 05/09/25 06:31 Labs: Laboratory Results - last 24 hr 05/08/25 05/08/25 05/08/25 11:56 15:55 20:35 Sodium Potassium Chloride Carbon Dioxide Anion Gap BUN Creatinine Estim Creat Clear Calc Estimated GFR POC Glucose 200 H 239 H 260 H Random Glucose Calcium 05/09/25 05/09/25 06:31 07:41 Sodium 145 Potassium 3.5 Chloride 98 Carbon Dioxide 32 H Anion Gap 19 BUN 97 H Creatinine 2.18 H Estim Creat Clear Calc 26.4 Estimated GFR 22 POC Glucose 155 H Random Glucose 154 H Calcium 7.0 L Microbiology Microbiology Results: Microbiology 05/05/25 18:17 Blood - Venous Blood Culture - Preliminary No growth after 48 hours. 05/05/25 18:17 Blood - Venous Blood Culture - Preliminary No growth after 48 hours. 04/25/25 22:23 Urine Catheterized - Moyer Catheter Urine Culture - Final Ramila albicans 04/25/25 16:53 Blood - Venous Blood Culture - Final No growth after 5 days. 04/25/25 16:41 Blood - Venous Blood Culture - Final No growth after 5 days. 04/26/25 09:01 Tracheal Aspirate Gram Stain - Final 04/26/25 09:01 Tracheal Aspirate Sputum Culture - Final Pseudomonas aeruginosa Methicillin Res Staph Aureus 04/25/25 21:34 Trachea Gram Stain - Final 04/25/25 21:34 Trachea Sputum Culture - Final Pseudomonas aeruginosa Procedures Date of Service Date of Service: 05/09/25 Assessment & Plan Assessment and plan (1) MARJORIE (acute kidney injury): Status: Acute Plan MARJORIE on CKD, initially likely from hypoperfusion from hypovolemia. Creatinine is stable/plateaued. Renal US without obstruction. urine protein/creatinine ratio increased from ~2.5 to ~3.1. Repeat urinalysis + protein, +blood, +WBCs, culture without growth. May consider renal biopsy as outpatient for further workup- patient reports today she had a renal biopsy many years ago (does not specify further), and that she will never do that again due to pain during the procedure. She states she is unsure of results but had the biospy done at [facility] [place]- I do not see any records of this on file in her chart currently. Recommend keeping her fluid net even. Creatinine stable. We will sign off and plan for an outpatient appointment upon discharge. avoid nephrotoxins continue supportive care Discussed with Dr Baires. Time Spent With Patient Time: Total time managing care of this patient today ____ minutes. Progress Note: Quality Stroke Does the patient have a stroke diagnosis?: No
[2025-05-09 10:59] LABS: Glucose, Whole Blood 222 mg/dL (60-115)
--- NOTE | 2025-05-09 11:59 | MHC.CM.PN ---
Second IMM 05/09/25, Pt has been medically cleared to DC, she will go to [facility] today via BLS. Pt asked CM to call her son to let him know, I called him today to inform him.
--- NOTE | 2025-05-09 13:31 | MHC.SL.SWA ---
Dysphasia Diet Status: NDD3/thin Liquid Consistency and Strategies for Safe Swallow: Liquid Intake Recommendation: Thin Solid Food Consistency: Dietary Recommendations: Chopped/Advanced (NDD3) Additional Modifications to Solid Foods: sauce/gravy Oral Medication Intake: Whole with Puree Please contact the pharmacy regarding appropriate crushable or liquid drug formulations that are available whenever modified delivery is recommended. Compensatory Strategies and Precautions to be Taken for Safe Swallow: Sitting Upright (90 deg) Small Bites and Sips Alternate Liquids/Solids Rate of Ingestion Change Supervision While Eating and Drinking for Safe Swallow: Intermittent Supervision Foods to Avoid: Tough, difficult to chew solids Swallowing Recommended Treatments: Compens. Strategy Educat. Recommendation for Speech: Inpatient Speech Therapy Comment: Recommend pt continue with chopped solids and thin liquids. Moisten food in sauce/gravy. Pt expressed preference for pills w/ pudding; larger pills crushed and smaller pills whole. Pt should sit upright for all PO to reduce risk of aspiration. Recommend continued dysphagia tx at next level of care to monitor toleration of diet and upgrade if/when warranted. Matrix Bath Attendant Clinican/Clinical Fellow: No Supervisory Statement: I have reviewed and agree with the student/clinical fellow's documentation: N/A Speech Language Pathologist: Ashlyn Chavis M.A., CCC-[employer]PENTER [employer]
--- NOTE | 2025-05-09 14:46 | PM.DS ---
DS: Providers Provider Date of Service: 05/09/25 Date of admission: 04/25/25 17:47 Date of discharge: 05/09/25 Primary care physician: Russ Shaw MD Consults: 04/25/25 20:57 Consult to Pulmonology Stat Consulting Provider: [facility] Reason for consultation: left upper and lower lobes collapse with shift of the mediastinum Has provider been notified: No 05/03/25 07:34 Consult to Nephrology Routine Consulting Provider: [facility] Reason for consultation: marjorie on ckd 05/04/25 14:33 Consult to Pulmonology Routine Consulting Provider: [facility] Reason for consultation: sob, pleural effusion DS: Diagnosis Discharge Diagnosis (1) MARJORIE (acute kidney injury): Status: Acute DS: Summary Hospital Course Hospital Course: From admission HPI: Date of Service: 04/25/25 Attending physician on admission: Xander Painter Chief Complaint: Acute respiratory distress 79-year-old female morbidly obese type 2 diabetic insulin-dependent with hypothyroidism chronic peripheral edema with associated overlying dermatitis and possible leg wound this potential source of infection along with chronic indwelling Moyer and a recent Enterococcus faecalis urinary tract infection brought in respiratory distress noted to be hypoxemic was on CPAP and then upgraded to BiPAP but distress remained a left thoracentesis was performed just a slightly serous sanguinous looking appearance to it grossly studies are pending and because of ongoing distress pH of 7.24 with pCO2 of 95 blood gas consistent with acute on chronic hypercarbic and hypoxic respiratory failure with secondary metabolic alkalosis patient was then intubated without complication CAT scan is pending and because the left leg is externally rotated and foreshortened we will get a hip x-ray in case there was a fall with trauma Also underlying history of COPD as we could tell along with CHF and I have not yet done a bedside echo Just prior to intubation she was hypotensive and blood pressure came up and the intubation was performed using 20 mg of etomidate and I believe rocuronium and again without complication Subsequent echocardiogram demonstrated normal LV and RV function but definite severe pulmonary hypertension probably in the 70+/- range Hospital course: Pt was admitted to the hospital for acute on chronic respiratory failure in the setting of COPD exacerbation with underlying pneumonia as well as HFpEF exacerbation. Pt was admitted to the ICU for pulmonary treatment and extensive pulmonary toileting. Pt was initially intubated and mechanically ventilated and treated for pneumonia with sputum cultures growing MRSA and Pseudomonas. Was eventually extubated and trialed on NIPPV and then transferred to the medical floor on 04/29 where she was continued on IV abx and IV diuretics with initial improvement. On 05/04 pt began experiencing increased SOB and was placed on BiPAP support at night and then again in the morning of 05/05. Pt was then transferred back to the ICU due to increased oxygen requirements and concern for fluid overload. Was eventually weaned from BiPAP after less than 24 hours and transferred back to the medical floor on 05/06. Pt was also seen by Nephrology for MARJORIE on CKD due to hypoperfusion and hypovolemia secondary to diuresing. Creatinine stabilized and suggestion was for possible renal biopsy outpatient, though pt reported she had a previous renal biopsy many years ago (unable to further specify) and did not wish to repeat that procedure due to how painful it was for her. For MRSA pneumonia, pt has received doxycycline for a total of 10 days. For Pseudomonas pneumonia, pt will need to take 1 more dose of levofloxacin 750 mg on 05/11. For COPD exacerbation pt should take prednisone 40 mg p.o. daily for the next 5 days. Resume all home inhalers For CHF exacerbation, pt should resume home dose of furosemide 40 mg b.i.d. For insulin-dependent type 2 diabetes, continue empagliflozin and Lantus For hyperlipidemia continue statin For HTN continue amlodipine For chronic Moyer, pt apparently has had Myoer since early this year. Was supposed to follow up with Urology for voiding trial and eventual transition from Moyer catheter, though has yet to do this. Pt has subsequently had recurrent UTIs. Will recent referral to Urology for voiding trial in 1-2 weeks. For TEZ, pt has been noncompliant with CPAP both at home and here in the hospital. Should follow up with PCP and/or pulmonology for TEZ management. For obesity class 3, weight loss encouraged. Time Attestation Discharge Coordination Time (in mins): 45 Quality: Safe Use of Opioids Does Pt have an Active Cancer Diagnosis on the Problem List?: No Quality: Stroke Does the patient have a stroke diagnosis?: No Physical Exam Vital Signs: Vital Signs: Last Vital Signs Temp 97.5 F 05/09/25 11:33 Pulse 96 05/09/25 11:59 Resp 28 H 05/09/25 11:59 BP 186/81 H 05/09/25 11:33 Pulse Ox 88 L 05/09/25 11:33 O2 Del Method Oxymask 05/09/25 11:33 O2 Flow Rate 2 05/09/25 11:33 FiO2 32 05/06/25 09:00 Oxygen Flow Rate 1 04/30/25 00:00 BMI result Body Mass Index 45.0 General: AOx3, no acute distress Resp: Very mild wheezing bilaterally CVS: S1, S2, RRR GI: +BS, NT, no distention, obese Skin: Warm, dry Neuro: Cranial nerves II-XII grossly intact bilaterally. Motor grossly intact bilaterally Extremities: No edema Psych: Anxious DS: Data Data Completed and Pending Completed studies during hospitalization [Text1]: Procedures Assistance with Respiratory Ventilation, Less than 24 Consecutive Hours, Continuous Positive Airway Pressure (04/03/25) Drainage of Left Pleural Cavity, Percutaneous Approach (08/03/24) Insertion of Infusion Device into Superior Vena Cava, Percutaneous Approach (11/10/21) Performance of Urinary Filtration, Intermittent, Less than 6 Hours Per Day (11/10/21) Transfusion of Nonautologous Red Blood Cells into Peripheral Vein, Percutaneous Approach (04/03/25) Labs on day of discharge: Laboratory Results - last 24 hr 05/08/25 05/08/25 05/09/25 15:55 20:35 06:31 Sodium 145 Potassium 3.5 Chloride 98 Carbon Dioxide 32 H Anion Gap 19 BUN 97 H Creatinine 2.18 H Estim Creat Clear Calc 26.4 Estimated GFR 22 POC Glucose 239 H 260 H Random Glucose 154 H Calcium 7.0 L 05/09/25 05/09/25 07:41 10:55 Sodium Potassium Chloride Carbon Dioxide Anion Gap BUN Creatinine Estim Creat Clear Calc Estimated GFR POC Glucose 155 H 222 H Random Glucose Calcium Preliminary micro results at discharge 05/05/25 18:17 Blood Culture - Preliminary Blood - Venous No growth after 48 hours. 05/05/25 18:17 Blood Culture - Preliminary Blood - Venous No growth after 48 hours. Discharge Plan Discharge Anticipated Discharge Date/Time: 05/09/25 14:29 Patient Disposition: Xfer SNF Discharge Diagnosis: Acute on chronic respiratory failure 2/2 COPD and dCHF exacerbations Referrals: [facility] [Outside] - 1 Week Dani Thornton MD [Physician, Urology] - 1 Week Referral Note: Pt with chronic Moyer since earlier this year. Referral for voiding trial as has had recurrent UTIs. Russ Shaw MD [Primary Care Provider, [facility]] - 1 Week Discharge Medications: New levofloxacin 750 mg tablet 750 mg PO DAILY Qty: 1 0RF Rx Instructions: Take tablet of levofloxacin 750 mg on 05/11 to complete course of antibiotics for Pseudomonas pneumonia. prednisone 20 mg tablet 40 mg PO DAILY Qty: 10 0RF Rx Instructions: Take two tablets (40mg total) daily for the next 5 days. Continued (DME) Lift chair See Rx Instructions .Route .MEDSUPPLY Qty: 1 0RF Rx Instructions: As directed (DME) compression stockings 40 mmHg knee high See Rx Instructions .Route .MEDSUPPLY Qty: 1 0RF Rx Instructions: As directed insulin glargine [Basaglar KwikPen U-100 Insulin] 100 unit/mL (3 mL) insulin pen 25 unit subcut DAILY@1900 furosemide 40 mg Tablet 40 mg PO BID@0900,1800 Qty: 1 0RF Protocol: Hold for SBP< HOLD for SBP < : 90 benzonatate 100 mg Capsule 100 mg PO TID PRN (Reason: Cough) Qty: 1 0RF ferrous sulfate 324 mg (65 mg iron) Tablet,Delayed Release (Dr/Ec) 324 mg PO DAILY Qty: 1 0RF sertraline 50 mg tablet 75 mg PO DAILY Qty: 1 0RF lorazepam [Ativan] 0.5 mg tablet 0.5 mg PO BID lorazepam [Ativan] 0.5 mg tablet 1 mg PO Q6H PRN (Reason: Anxiety) albuterol sulfate [Ventolin HFA] 90 mcg/actuation HFA aerosol inhaler 2 puff inhalation Q6H PRN (Reason: Shortness Of Breath Or Wheezing) atorvastatin 40 mg tablet 40 mg PO BEDTIME 90 Days Qty: 90 3RF (DME) Accu-Chek Guide test strips Strip See Rx Instructions .Route Qty: 100 3RF Rx Instructions: Use 1 test strip once a day (DME) Accu-Chek Odilia Plus test strp Strip See Rx Instructions .Route Qty: 100 1RF Rx Instructions: Use 1 test strip once a day Jardiance 10 mg tablet 10 mg PO DAILY Qty: 90 1RF gemfibrozil 600 mg tablet 600 mg PO BID Qty: 180 1RF (DME) insulin syringe-needle U-100 0.5 mL 31 gauge x 5/16 syringe See Rx Instructions .Route Qty: 100 3RF Rx Instructions: Use 1 needle once a day (DME) lancets [Accu-Chek Softclix Lancets] Misc See Rx Instructions .Route Qty: 100 3RF Rx Instructions: Use 1 lancet once a day levothyroxine 200 mcg tablet 200 mcg PO DAILY@0600 90 Days Qty: 90 0RF (DME) pen needle, diabetic [1st Tier Unifine Pentips] 31 gauge x 5/16 needle See Rx Instructions .Route Qty: 100 4RF Rx Instructions: Use 1 pen needle once a day sodium bicarbonate 650 mg tablet 650 mg PO DAILY Qty: 90 0RF Lokelma 10 gram powder in packet 10 g PO DAILY Qty: 90 0RF amlodipine 5 mg tablet 5 mg PO DAILY Qty: 90 2RF ammonium lactate 12 % lotion 1 appl topical BID Qty: 400 3RF No Action insulin lispro [Humalog U-100 Insulin] 100 unit/mL Solution 1 sliding scale dose SUBCUT TIDAC Protocol: Insulin Correction Scale Less than or equal to 110 ---- Give (units): 0 111 to 150 Give (units): 0 151 to 200 Give (units): 0 201 to 250 Give (units): 2 251 to 300 Give (units): 4 301 to 350 Give (units): 6 Greater than 350 Give (units): 8 Call MD if Blood Glucose > : 350 acetaminophen 325 mg Tablet 650 mg PO Q4H PRN (Reason: Fever Or Pain) acetaminophen 650 mg Suppository 650 mg LA Q4H PRN (Reason: Fever Or Pain) magnesium hydroxide [Milk of Magnesia] 400 mg/5 mL Suspension 30 ml PO DAILY PRN (Reason: Constipation) bisacodyl 10 mg Suppository 10 mg LA DAILY PRN (Reason: Constipation) Fleet Enema 19-7 gram/118 mL Enema 118 ml LA DAILY PRN (Reason: Constipation) Discharge Orders: Discharge Order (Routine); Ordered 05/09/25 Ordered By: Opal Torres Diet: Advance to usual diet Activity on Discharge: As tolerated Stand Alone Forms: Patient Portal Discharge page Print Language: Lao Care Plan Goals: See below Health Concerns: Acute on chronic respiratory failure MRSA and Pseudomonas pneumonia HFpEF exacerbation COPD exacerbation Plan of Treatment: You were admitted to the hospital for acute on chronic respiratory failure due to COPD and diastolic CHF exacerbations, as well as Pseudomonas and MRSA pneumonia. You have completed antibiotic course for MRSA pneumonia with doxycycline Complete course of antibiotics for Pseudomonas pneumonia with 1 more dose of levofloxacin 750 mg daily which should be taken on 05/11 Take prednisone 40 mg daily for the next 5 days for COPD exacerbation For CHF, resume home furosemide 40 mg b.i.d. For chronic indwelling Moyer, follow up with Urology for voiding trial For TEZ, follow with PCP or pulmonology for home CPAP Assessment: See discharge summary Discharge Date/Time: 05/09/25 15:36
== END 2025-05-09 15:36 | disposition skilled nursing facility (03) | DRG 208 ==
LOC: HO.ED 14:56 → HO.EDOVER 17:49 → HO.ICU 17:58 → HO.IMC 04-29 10:58 → HO.S3 05-03 08:14 → HO.ICU 05-05 16:00 → HO.IMC 05-06 16:21
PROVIDERS: Internal Medicine; Internal Medicine Critical Care Medicine; Nurse Practitioner Family; Physician Assistant Medical; Registered Nurse Community Health; Student in an Organized Health Care Education/Training Program; Admitting Provider Internal Medicine Cardiovascular Disease; Emergency Provider Emergency Medicine; PCP Student in an Organized Health Care Education/Training Program; Visit Provider Student in an Organized Health Care Education/Training Program
DX: J15.212 Pneumonia due to Methicillin resistant Staphylococcus aureus (principal); I50.33 Acute on chronic diastolic (congestive) heart failure; J96.21 Acute and chronic respiratory failure with hypoxia; J96.22 Acute and chronic respiratory failure with hypercapnia; J91.8 Pleural effusion in other conditions classified elsewhere; J44.0 Chronic obstructive pulmonary disease with (acute) lower respiratory infection; I13.0 Hypertensive heart and chronic kidney disease with heart failure and stage 1 through stage 4 chronic kidney disease, or unspecified chronic kidney disease; N18.4 Chronic kidney disease, stage 4 (severe); E87.3 Alkalosis; J98.11 Atelectasis; E66.2 Morbid (severe) obesity with alveolar hypoventilation; Z68.42 Body mass index [BMI] 45.0-49.9, adult; N17.9 Acute kidney failure, unspecified; J44.1 Chronic obstructive pulmonary disease with (acute) exacerbation; J15.1 Pneumonia due to Pseudomonas; F41.1 Generalized anxiety disorder; I87.2 Venous insufficiency (chronic) (peripheral); L57.0 Actinic keratosis; E78.5 Hyperlipidemia, unspecified; E03.9 Hypothyroidism, unspecified; E87.5 Hyperkalemia; E86.1 Hypovolemia; I95.2 Hypotension due to drugs; T42.75XA Adverse effect of unspecified antiepileptic and sedative-hypnotic drugs, initial encounter; D63.1 Anemia in chronic kidney disease; E11.22 Type 2 diabetes mellitus with diabetic chronic kidney disease; Z96.0 Presence of urogenital implants; I50.812 Chronic right heart failure; I27.81 Cor pulmonale (chronic); Z99.3 Dependence on wheelchair; Z20.822 Contact with and (suspected) exposure to COVID-19; Z99.81 Dependence on supplemental oxygen; Z87.440 Personal history of urinary (tract) infections; Z79.4 Long term (current) use of insulin; Z79.890 Hormone replacement therapy; Z79.899 Other long term (current) drug therapy
CPT/HCPCS: 36415; 36600; 71045; 71250; 72170; 72192; 76775; 80048; 80053; 80202; 80307; 81001; 81003; 82010; 82040; 82140; 82565; 82570; 82803; 82945; 82947; 83605; 83615; 83735; 83880; 84100; 84155; 84156; 84157; 84439; 84443; 84481; 84484; 85025; 85027; 85610; 86850; 86900; 86901; 87040; 87070; 87077; 87086; 87088; 87186; 87205; 87449; 87633; 87899; 89051; 92526; 92610; 93005; 94002; 94003; 94640; 94660; 97110; 97163; 97167; 97530; 99285; J0613; J0651; J0696; J1171; J1308; J1644; J1938; J2250; J2405; J2543; J2704; J2919; J3010; J3360; J3373; J3374; J7120; P9047

== ENCOUNTER → 2025-04-25 14:39 | Outpatient (BNV) | payer MEDICARE, MEDICAID, SELFPAY | PROVIDERS: Emergency Provider Emergency Medicine; PCP Student in an Organized Health Care Education/Training Program; Visit Provider Radiology Diagnostic Radiology | DX: J90 Pleural effusion, not elsewhere classified (principal); I51.7 Cardiomegaly; I25.10 Atherosclerotic heart disease of native coronary artery without angina pectoris; M21.952 Unspecified acquired deformity of left thigh; Z96.89 Presence of other specified functional implants | CPT/HCPCS: 71250; 72192 ==

== ENCOUNTER 2025-04-25 17:47 | Outpatient (BNV) | payer MEDICARE, SELFPAY | END 2025-04-25 19:11 | PROVIDERS: Admitting Provider Internal Medicine Cardiovascular Disease; Emergency Provider Emergency Medicine; PCP Student in an Organized Health Care Education/Training Program; Visit Provider Internal Medicine Cardiovascular Disease | DX: I45.4 Nonspecific intraventricular block (principal) | CPT/HCPCS: 93010 ==

== ENCOUNTER 2025-04-25 17:47 | Outpatient (BNV) | payer MEDICARE, MEDICAID, SELFPAY | END 2025-05-04 08:08 | PROVIDERS: Admitting Provider Internal Medicine Cardiovascular Disease; Emergency Provider Emergency Medicine; PCP Student in an Organized Health Care Education/Training Program; Visit Provider Radiology Diagnostic Radiology | DX: J84.9 Interstitial pulmonary disease, unspecified (principal) | CPT/HCPCS: 71045 ==

== ENCOUNTER 2025-04-25 17:47 | Outpatient (BNV) | payer MEDICARE, MEDICAID, SELFPAY | END 2025-04-26 07:20 | PROVIDERS: Admitting Provider Internal Medicine Cardiovascular Disease; Emergency Provider Emergency Medicine; PCP Student in an Organized Health Care Education/Training Program; Visit Provider Radiology Diagnostic Radiology | DX: I51.7 Cardiomegaly (principal); J90 Pleural effusion, not elsewhere classified | CPT/HCPCS: 71045 ==

== ENCOUNTER 2025-04-25 17:47 | Outpatient (BNV) | payer MEDICARE, MEDICAID, SELFPAY | END 2025-04-27 07:00 | PROVIDERS: Admitting Provider Internal Medicine Cardiovascular Disease; Emergency Provider Emergency Medicine; PCP Student in an Organized Health Care Education/Training Program; Visit Provider Radiology Diagnostic Radiology | DX: I51.7 Cardiomegaly (principal); R09.89 Other specified symptoms and signs involving the circulatory and respiratory systems; R91.8 Other nonspecific abnormal finding of lung field | CPT/HCPCS: 71045 ==

== ENCOUNTER 2025-04-25 17:47 | Outpatient (BNV) | payer MEDICARE, MEDICAID, SELFPAY | END 2025-05-03 10:58 | PROVIDERS: Admitting Provider Internal Medicine Cardiovascular Disease; Emergency Provider Emergency Medicine; PCP Student in an Organized Health Care Education/Training Program; Visit Provider Radiology Diagnostic Radiology | DX: N28.1 Cyst of kidney, acquired (principal) | CPT/HCPCS: 76775 ==

== ENCOUNTER → 2025-04-25 17:47 | Outpatient (BNV) | payer MEDICARE, MEDICAID, SELFPAY | PROVIDERS: Admitting Provider Internal Medicine Cardiovascular Disease; Emergency Provider Emergency Medicine; PCP Student in an Organized Health Care Education/Training Program; Visit Provider Nurse Practitioner Family | DX: N17.9 Acute kidney failure, unspecified (principal); N18.9 Chronic kidney disease, unspecified | CPT/HCPCS: 99222; 99232 ==

== ENCOUNTER → 2025-04-25 17:47 | Outpatient (BNV) | payer MEDICARE, MEDICAID, SELFPAY | PROVIDERS: Admitting Provider Internal Medicine Cardiovascular Disease; Emergency Provider Emergency Medicine; PCP Student in an Organized Health Care Education/Training Program; Visit Provider Internal Medicine | DX: I50.32 Chronic diastolic (congestive) heart failure (principal); I27.20 Pulmonary hypertension, unspecified; N17.9 Acute kidney failure, unspecified; J43.2 Centrilobular emphysema; I89.0 Lymphedema, not elsewhere classified; J96.21 Acute and chronic respiratory failure with hypoxia | CPT/HCPCS: 99232; 99233 ==

== ENCOUNTER → 2025-04-25 17:47 | Outpatient (BNV) | payer MEDICARE, MEDICAID, SELFPAY | PROVIDERS: Admitting Provider Internal Medicine Cardiovascular Disease; Emergency Provider Emergency Medicine; PCP Student in an Organized Health Care Education/Training Program; Visit Provider Internal Medicine Cardiovascular Disease | DX: I27.81 Cor pulmonale (chronic) (principal); I27.20 Pulmonary hypertension, unspecified; I12.9 Hypertensive chronic kidney disease with stage 1 through stage 4 chronic kidney disease, or unspecified chronic kidney disease; F41.1 Generalized anxiety disorder; E11.22 Type 2 diabetes mellitus with diabetic chronic kidney disease; N18.9 Chronic kidney disease, unspecified; T83.511A Infection and inflammatory reaction due to indwelling urethral catheter, initial encounter; T14.8XXA Other injury of unspecified body region, initial encounter; J96.21 Acute and chronic respiratory failure with hypoxia; J96.22 Acute and chronic respiratory failure with hypercapnia; J44.1 Chronic obstructive pulmonary disease with (acute) exacerbation; J43.2 Centrilobular emphysema | CPT/HCPCS: 99223; 99291 ==

== ENCOUNTER → 2025-04-25 17:47 | Outpatient (BNV) | payer MEDICARE, SELFPAY | PROVIDERS: Admitting Provider Internal Medicine Cardiovascular Disease; Emergency Provider Emergency Medicine; PCP Student in an Organized Health Care Education/Training Program; Visit Provider Hospitalist | DX: J96.21 Acute and chronic respiratory failure with hypoxia (principal); J96.22 Acute and chronic respiratory failure with hypercapnia; J43.2 Centrilobular emphysema; J18.9 Pneumonia, unspecified organism; J91.8 Pleural effusion in other conditions classified elsewhere; J98.11 Atelectasis | CPT/HCPCS: 99223 ==

== ENCOUNTER 2025-05-10 00:10 | Inpatient (IN) | payer MEDICARE, OTHER, SELFPAY ==
[2025-05-10] VITALS (15 sets, daily range): BP systolic 103–156; BP diastolic 35–95; PULSE 55–82; RESP 15–38; TEMP 36.3–36.6; O2SAT 90–100; BMI 36.9; BMI 36.8
--- NOTE | 2025-05-10 | ECG_ITS ---
Test Reason : CHEST PAIN Blood Pressure : */* mmHG Vent. Rate : 63 BPM Atrial Rate : * BPM P-R Int : * ms QRS Dur : 114 ms QT Int : 450 ms P-R-T Axes : * -46 84 degrees QTcB Int : 460 ms Atrial fibrillation with a competing junctional pacemaker Left axis deviation Minimal voltage criteria for LVH, may be normal variant ( [employer] product ) Abnormal ECG When compared with ECG of 26-Apr-2025 00:10, Atrial fibrillation has replaced Sinus rhythm Referred By: Generic ED Physician Electronically Signed By: JIMBO CASTILLO
--- NOTE | ~2025-05-10 | XR_ITS ---
EXAMINATION: XR CHEST 2 VIEWS HISTORY: follow up pneumonia COMPARISON: Comparison is made with the prior examination dated 05/04/2025. FINDINGS: AP and lateral views of the chest are submitted. There is prominence of the pulmonary vasculature, consistent with congestion. There are small bilateral pleural effusions. The heart is enlarged. The aorta is calcified. There is degenerative disc disease of the spine. XR/XR chest 2V IMPRESSION: Cardiomegaly, pulmonary vascular congestion, small bilateral pleural effusions. Electronically signed by: Valeriano Garnett MD 05/11/2025 08:58 AM EDT
--- OUTSIDE RECORDS SUMMARY | 2025-05-10 00:47 | XMS_ITS | Encounter Summary ---
Author Organization [employer] Address [address] [place] [address] Care Team Providers Care Recovery Specialist Name Role Phone Hal Cole MD Primary Care Provider [phone] Encounter Details Date Type Department Care Team (Late st Contact Info) Description 09/28/[address] [facility] Lab [address] [facility] [place] [address] Hal Cole MD [address] [place] [address], [phone] Essential (primary) hypertension; Chronic obstructive pulmonary [...] LAB CHEMISTRY METHOD 09/28/2024 1:08 PM EST [facility] Blood Venous blood specimen / Unknown Venipuncture / Unknown 09/28/2024 7:04 AM EST 09/28/2024 11:03 AM EST Hal Cole MD LAB BLOOD ORDERABLES Final Resul t Performing Organization Address [facility]/ZIP Co de Phone Number [facility] [address] [place] [address], [place] [phone] * Free thyroxine with reflex to free triiodothyronine (09/28/2024 7:04 AM EST) Pathologist [facility] Free T4 0.88 0.70 - 1.80 ng/dL LAB CHEMISTRY METHOD 09/28/2024 12:41 PM EST [facility] Blood Venous blood specimen / Unknown Venipuncture / Unknown 09/28/2024 7:04 AM EST 09/28/2024 11:03 AM EST Hal Cole MD LAB BLOOD ORDERABLES Final Resul t [facility] [address] [place] [address], [place] [phone] * (ABNORMAL) Thyroid stimulating hormone with reflex to free t4 and free t3 (09/28/2024 7:04 AM EST) TSH 50.98(H) 0.40 - 4.00 mcIU/mL LAB CHEMISTRY METHOD 09/28/2024 12:15 PM [facility] Blood Venous blood specimen / Unknown Venipuncture / Unknown 09/28/2024 7:04 AM EST 09/28/2024 11:03 AM EST us Hal Cole MD LAB BLOOD ORDERABLES Final Resul t [facility] [address] [place] [address], [place] [phone] * (ABNORMAL) Basic metabolic panel (09/28/2024 7:04 AM EST) Sodium 141 133 - 145 mmol/L LAB CHEMISTRY METHOD 09/28/2024 12:06 PM [facility] Potassium 4.2 3.5 - 5.5 mmol/L LAB CHEMISTRY METHOD 09/28/2024 12:06 PM [facility] Chloride 106 96 - 110 mmol/L LAB CHEMISTRY METHOD 09/28/2024 12:06 PM [facility] CO2 29 21 - 32 mmol/L LAB CHEMISTRY METHOD 09/28/2024 12:06 PM [facility] Anion Gap 6 3 - 11 LAB CHEMISTRY METHOD 09/28/2024 12:06 PM [facility] Glucose 139(H) 70 - 100 mg/dL LAB CHEMISTRY METHOD 09/28/2024 12:06 PM [facility] BUN 67(H) 5 - 25 mg/dL LAB CHEMISTRY METHOD 09/28/2024 12:06 PM [facility] Creatinine 1.83(H) 0.50 - 1.10 mg/dL LAB CHEMISTRY METHOD 09/28/2024 12:06 PM [facility] eGFR 28(L) >=60 mL/min/1. 73m2 LAB CHEMISTRY METHOD 09/28/2024 12:06 PM [facility] Comment:Calculation based on the Chronic Kidney Disease Epidemiology Collaboration (CKD-EPI) equation refit without adjustment for race. BUN/Creatinine Ratio 36.6 LAB CHEMISTRY METHOD 09/28/2024 12:06 PM [facility] Calcium 8.3(L) 8.5 - 10.5 mg/dL LAB CHEMISTRY METHOD 09/28/2024 12:06 PM [facility] Blood Venous blood specimen / Unknown Venipuncture / Unknown 09/28/2024 7:04 AM EST 09/28/2024 11:03 AM EST us Hal Cole MD LAB BLOOD ORDERABLES Final Resul t [facility] [address] [place] [address], * (ABNORMAL) Complete blood count (09/28/2024 7:04 AM EST) WBC 7.1 4.8 - 10.8 K/mcL LAB HEMETOLOGY METHOD 09/28/2024 11:31 AM [facility] RBC 3.70(L) 3.80 - 4.80 M/mcL LAB HEMETOLOGY METHOD 09/28/2024 11:31 AM [facility] Hemoglobin 10.8(L) 11.5 - 16.0 g/dL LAB HEMETOLOGY METHOD 09/28/2024 11:31 AM [facility] Hematocrit 36.0 35.0 - 47.0 % LAB HEMETOLOGY METHOD 09/28/2024 11:31 AM [facility] MCV 96.5 79.0 - 98.0 FL LAB HEMETOLOGY METHOD 09/28/2024 11:31 AM [facility] MCH 29.0 27.0 - 32.0 pcg LAB HEMETOLOGY METHOD 09/28/2024 11:31 AM [facility] MCHC 30.0(L) 32.0 - 37.0 g/dL LAB HEMETOLOGY METHOD 09/28/2024 11:31 AM EST [facility] RDW 13.5 11.0 - 15.0 % LAB HEMETOLOGY METHOD 09/28/2024 11:31 AM [facility] Platelets 214 130 - 400 K/mcL LAB HEMETOLOGY METHOD 09/28/2024 11:31 AM [facility] MPV 9.9 7.0 - 11.0 FL LAB HEMETOLOGY METHOD 09/28/2024 11:31 AM [facility] NRBC 0.0 <1.0 % LAB HEMETOLOGY METHOD 09/28/2024 11:31 AM [facility] NRBC Absolute 0.00 <0.10 K/mcL LAB HEMETOLOGY METHOD 09/28/2024 11:31 AM [facility] Blood Venous blood specimen / Unknown Venipuncture / Unknown 09/28/2024 7:04 AM EST 09/28/2024 11:03 AM EST us Hal Cole MD LAB BLOOD ORDERABLES Final Resul t [facility] [address] [place] [address], documented in this encounter Visit Diagnoses Diagnosis Essential (primary) hypertension Unspecified essential hypertension Chronic obstructive pulmonary disease, unspecified (CMS/HCC V24, CMS/HCC V28) documented in this encounter Care Teams Recovery Specialist Relationship Specialty Start Date End Date Hal Cole MD [address] [place] [address], [phone] PCP - General Family Medicine 09/15/24 documented as of this encounter
--- OUTSIDE RECORDS SUMMARY | 2025-05-10 00:48 | XMS_ITS | Clinical Summary ---
Author Organization [facility] Address [address] [place] [address] Phone Care Team Providers Care Mineral Surveyor Name Role Phone Neida Mirza MD Primary Care Provider [phone] Allergies Active Allergy Reactions Criticality Noted Date [...] Visual Foot Exam 11/25/2021 Influenza Vaccine (#1) 2025 Hepatitis B Vaccine Aged Out No longe r eligible based on patient's age to complete this topic Insurance Medicare Medicare Care Teams Mineral Surveyor Relationship Specialty Start Date End Date Neida Mirza MD [address] [place], [place] PCP - General 11/05/20
[2025-05-10 00:53] LABS: Hematocrit 25.4 % (37.0-47.0); Hemoglobin 7.7 g/dl (12.0-16.0); Imm Gran Abs Auto 0.04 X10*3/uL (0.00-0.03); Imm Gran Pct Auto 0.5 % (0.0-0.4); Lymphocytes Absolute Auto 0.7 X10*3/uL (1.2-4.9); MANUAL DIFF FLAG NO; Mean Corpuscular HGB Conc 30.3 g/dl (31.0-35.0); Mean Corpuscular Hemoglobin 27.8 pg (27.0-33.0); Mean Corpuscular Volume 91.7 fL (80.0-98.0); NRBC Abs Auto 0.000 X10*3/uL (0.0-0.012); NRBC Pct Auto 0.0 /100WBC (0.0-0.2); Platelet Count 199 X10*3/uL (160-400); Red Blood Count 2.77 X10*6/uL (4.20-5.50); White Blood Count 7.4 X10*3/uL (4.8-10.8)
[2025-05-10 01:03] LABS: INTERNATIONAL NORM RATIO 1.2 (0.9-1.1); Prothrombin Time 13.6 SEC (10.9-12.4)
[2025-05-10 01:10] LABS: Alanine Aminotransferase < 6 U/L (0-31); Albumin Level 3.3 g/dL (3.5-5.0); Alkaline Phosphatase 69 U/L (39-117); Anion Gap 18 (12-20); Aspartate Amino Transferase 19 U/L (5-31); Blood Urea Nitrogen 89 mg/dL (9-16); Calcium 7.2 mg/dL (8.4-10.2); Carbon Dioxide 35 mmol/L (22-29); Chloride 98 mmol/L (96-108); Creatinine Clr Calc Pharmacy 29.1; Estimated Glomerular Filt Rate 26; Potassium 3.2 mmol/L (3.3-5.1); Sodium 148 mmol/L (135-145); Total Protein 6.6 g/dL (6.5-8.0)
[2025-05-10 01:21] LABS: Troponin-I High Sensitivity 54.3 ng/L (<3.5-17.0)
--- NOTE | 2025-05-10 01:40 | ED.CHESTPAIN ---
HPI - Chest Pain General Chief Complaint: Chest Pain Stated Complaint: SNF CP & SOB, here yesterday recheck Time Seen by Provider: 05/10/25 01:21 Source: patient Mode of arrival: EMS Limitations: no limitations History of Present Illness ED Provider: Rigoberto CHIANG HPI narrative: The patient is a 79-year-old female with extensive past medical history including CHF, pulmonary hypertension, COPD on chronic FiO2, chronic anemia, CKD, diabetes, and atrial fibrillation on Coumadin presenting to the ED for evaluation of chest pain which began 2 hours prior to arrival in the ED. Patient was just discharged from this facility yesterday after an extensive admission in the ICU for acute on chronic respiratory failure and acute on chronic kidney failure. The patient was found to have a left pleural effusion, patient was diuresed showing improvement in respiratory function and also with improvement in kidney function, patient was discharged yesterday however returns today after she developed approximately 2 hours of substernal chest pain with associated anxiety. The patient reports a feeling of tightness in her chest with associated diaphoresis, denies associated nausea, vomiting, near-syncope, or syncope. The patient reports chest pain has begun to improve since arrival in the ED. Related Data Home Medications ?Medication ?Instructions ?Recorded ?Confirmed insulin glargine 100 unit/mL (3 25 unit subcut DAILY@1900 04/04/25 04/25/25 mL) subcutaneous pen (Basaglar KwikPen U-100 Insulin) albuterol sulfate 90 mcg/actuation 2 puff inhalation Q6H PRN 04/25/25 04/25/25 aerosol inhaler (Ventolin HFA) Shortness Of Breath Or Wheezing lorazepam 0.5 mg tablet (Ativan) 0.5 mg PO BID 04/25/25 04/25/25 lorazepam 0.5 mg tablet (Ativan) 1 mg PO Q6H PRN Anxiety 04/25/25 04/25/25 Previous Rx's ?Medication ?Instructions ?Recorded Lift chair #1 ea 01/19/25 amlodipine 5 mg tablet 5 mg PO DAILY #90 tabs 03/15/25 ammonium lactate 12 % lotion 1 appl topical BID #400 grams 03/15/25 atorvastatin 40 mg tablet 40 mg PO BEDTIME 90 days #90 tabs 03/15/25 blood sugar diagnostic (Accu-Chek #100 ea 05/21/25 Odilia Plus test strips) blood sugar diagnostic (Accu-Chek #100 ea 03/15/25 Guide test strips) empagliflozin 10 mg tablet 10 mg PO DAILY #90 tabs 03/15/25 (Jardiance) gemfibrozil 600 mg tablet 600 mg PO BID #180 tabs 03/15/25 insulin syringe-needle U-100 0.5 #100 ea 03/15/25 mL 31 gauge x 03/10 lancets (Accu-Chek Softclix #100 ea 03/15/25 Lancets) levothyroxine 200 mcg tablet 200 mcg PO DAILY@0600 90 days #90 03/15/25 tabs pen needle, diabetic 31 gauge x #100 ea 03/15/2503/10 (1st Tier Unifine Pentips) sodium bicarbonate 650 mg tablet 650 mg PO DAILY #90 tabs 03/15/25 sodium zirconium cyclosilicate 10 10 g PO DAILY #90 ea 03/15/25 gram oral powder packet (Lokelky) compression stockings #1 ea 03/29/25 benzonatate 100 mg capsule 100 mg PO TID PRN Cough #1 cap 04/10/25 ferrous sulfate 324 mg (65 mg 324 mg PO DAILY #1 tab 04/10/25 iron) tablet,delayed release furosemide 40 mg tablet 40 mg PO BID@0900,1800 #1 tab 04/10/25 nystatin 100,000 unit/gram topical 1 appl topical BID #1 g 04/10/25 powder (Nyamy) sertraline 50 mg tablet 75 mg (1.5 x 50 mg) PO DAILY #1 tab 04/10/25 levofloxacin 750 mg tablet 750 mg PO DAILY #1 tab 05/09/25 prednisone 20 mg tablet 40 mg (2 x 20 mg) PO DAILY #10 tabs 05/09/25 Allergies Allergy/AdvReac Type Severity Reaction Status Date / Time ibuprofen (From Motrin) Allergy Unknown swelling Verified 05/10/25 00:25 codeine (CODEINE) AdvReac Unknown SLEEPY Verified 05/10/25 00:25 Review of Systems Review of Systems: Yes all other systems are reviewed and are negative [facility] Past Medical History Medical History (Updated 05/10/25 @ 03:55 by Rigoberto Martinez PA-C) Pulmonary hypertension COPD (chronic obstructive pulmonary disease) CHF (congestive heart failure) MARJORIE (acute kidney injury) Pneumonitis CKD (chronic kidney disease) COPD exacerbation Renal insufficiency Urinary retention Lumbar degenerative disc disease Chronic pain syndrome Obesity hypoventilation syndrome Venous stasis dermatitis Atelectasis Generalized anxiety disorder CHF (congestive heart failure) Anemia Herpes zoster Left bundle branch block Morbid obesity Chronic pain syndrome Anxiety Pernicious anemia Hypothyroidism Essential hypertension Diabetes mellitus Pure hypercholesterolemia Surgical History H/O left knee surgery Deficient knowledge of leg surgery History of tonsillectomy and adenoidectomy History of appendectomy Family History Family History Father CVD (cardiovascular disease) Mother No problems noted. Family/Other FH: mental illness Social History Social History Household Members: Other Household Members Other:: son Housing: Retirement Do you presently have visiting nurse or other home services: Yes (vna) Alcohol intake: unknown Comment: 1:1 sitter for oxygen administration and redirection Patient Tobacco Use Status: Former Tobacco user Tobacco use type: Cigarette Smoked in Last 30 Days: No e-Cigarette/Vaping Use: Never Used Second Hand Smoke Exposure: No Use of substances other than those prescribed or required for medical reasons: No Advance Directives: Yes Advance Directives on File: Yes Advance Directives Date on File: 06/24/24 Do you have a plan to hurt others: No Plan service: No Current occupational status: disabled Cognitive needs: Yes (Wheelchair, Lift chair) Hearing needs: No Vision needs: Yes (Glasses) Physical Exam Vital Signs: Vital Signs: Last Vital Signs Temp 97.4 F 05/10/25 02:47 Pulse 63 05/10/25 02:47 Resp 18 05/10/25 02:47 BP 113/35 L 05/10/25 02:47 Pulse Ox 100 05/10/25 02:47 O2 Del Method Nasal Cannula 05/10/25 02:47 O2 Flow Rate 4 05/10/25 02:47 Oxygen Flow Rate 4 05/10/25 00:21 BMI result Body Mass Index 36.9 CONSTITUTIONAL: The patient appears chronically ill, otherwise non-toxic, well nourished and in no acute distress. Vital signs as documented. HEAD: Atraumatic, normocephalic. EYES: EOMs grossly intact, pupils equal, conjunctiva clear, no exudate. ENT: Nares patent, no discharge. Airway patent, no audible stridor, visible mucosa is pink and moist without noted lesions. NECK: Trachea is midline, no obvious masses or gross abnormalities. CHEST: Symmetric movement, normal appearance. LUNGS: LS present and CTAB on right, rhonchi noted in the inferior lung zambrano. Non-labored work of breathing at rest with FiO2. CARDIAC: Irregular Rhythm, S1/S2 appreciated, no murmurs, rubs or gallops. ABDOMEN: Abdomen soft and non-tender x4 quadrants, no palpable masses or organomegaly. : Deferred. EXTREMITIES: Normal tone, moves all extremities spontaneously without reported pain. No obvious acute injury or deformity noted. NEURO: Alert and oriented x3, CN II-XII appear grossly intact. Cerebellar Functioning grossly intact. No obvious sensory or motor deficits. Speech clear and appropriate. PSYCH: normal affect, appropriate eye contact, fluid speech, with appropriate response to questioning. No reported suicidality or homicidality. SKIN: Warm, dry, color appropriate, normal turgor. No rashes noted. Medications Administered Discontinued Medications Generic Name Dose Route Start Last Admin Trade Name Freq PRN Reason Stop Dose Admin Morphine Sulfate 4 mg 05/10/25 01:38 05/10/25 01:49 Morphine Sulfate 4 Mg/Ml Cartridge IVPUSH 05/10/25 01:39 4 mg ONCE ONE Administration Protocol Medical Decision Making Medical Decision Making MDM Narrative: 1:54 AM 05/10/2025 (Mark CHIANG): The patient is a 79-year-old female with extensive past medical history presenting to the ED for evaluation of chest pain. Patient was discharged from this facility yesterday after an extended stay including ICU admission for acute on chronic respiratory failure and acute on chronic kidney failure. In the ED patient reports for the past 2 hours she has been experiencing tightness of the chest but denies overt shortness of breath. The patient's exam reveals rhonchi of the left lower lobe consistent with pleural effusion diagnosed on previous admission. The patient is EKG shows atrial fibrillation without evidence of ischemia. Troponin is elevated at 54.3, however chart review reveals patient often has mildly elevated troponin likely secondary to CHF. The patient presents to the ED hemodynamically stable, laboratory evaluation shows chronic anemia consistent with previous levels. Patient's creatinine has improved compared to discharge yesterday. Patient reports chest pain is improving since arrival in the ED. We will repeat troponin at 0245. Patient will be treated with single dose of morphine for her active chest pain in the ED, patient is anticoagulated with Coumadin, we will hold aspirin at this time. 3:26 AM 05/10/2025 (Mark CHIANG): The patient's repeat troponin is 55.3, not significantly changed from previous at 54.3. Repeat EKG shows sinus rhythm with a rate of 59, no evidence of acute ischemia, no ST elevation. QTC 469. Compared to previous the previously interpreted atrial fibrillation is now interpreted as a sinus rhythm. The patient was sleeping comfortably upon reassessment, reports pain has resolved. Although patient's elevated troponin is likely secondary to recent CHF exacerbation, patient's renal function is improved and troponin is higher than previously recorded. Given the patient's report of chest pain in the setting of repeatedly elevated troponins without recurrent MARJORIE to explain elevated troponin, we will admit for cardiology consultation and serial troponins. Lab Data MDM Lab Attestation statement: I reviewed the patient's lab results. 05/10/25 00:44 05/10/25 00:44 Labs: Lab Results 05/10/25 05/10/25 Range/Units 00:44 02:54 WBC 7.4 (4.8-10.8) X10*3/uL RBC 2.77 L (4.20-5.50) X10*6/uL Hgb 7.7 L (12.0-16.0) g/dl Hct 25.4 L (37.0-47.0) % MCV 91.7 (80.0-98.0) fL MCH 27.8 (27.0-33.0) pg MCHC 30.3 L (31.0-35.0) g/dl RDW 16.3 H (11.0-16.0) % Plt Count 199 (160-400) X10*3/uL MPV 9.0 L (9.4-12.3) fL Immature Gran % (Auto) 0.5 H (0.0-0.4) % Neut % (Auto) 82.7 H (45-73) % Lymph % (Auto) 9.0 L (20-40) % [place] % (Auto) 6.6 (2-11) % Eos % (Auto) 0.8 (0-4) % Baso % (Auto) 0.4 (0-2) % Lymph # (Auto) 0.7 L (1.2-4.9) X10*3/uL [place] # (Auto) 0.5 (0.1-1.2) X10*3/uL Eos # (Auto) 0.1 (0.0-0.4) X10*3/uL Baso # (Auto) 0.0 (0.0-0.2) X10*3/uL Abs Immat Gran (auto) 0.04 H (0.00-0.03) X10*3/uL Absolute Neuts (auto) 6.2 (2.0-8.3) x10*3/uL Absolute Nucleated RBC 0.000 (0.0-0.012) X10*3/uL Nucleated RBC % (auto) 0.0 (0.0-0.2) /100WBC PT 13.6 H D (10.9-12.4) SEC INR 1.2 H (0.9-1.1) Sodium 148 H (135-145) mmol/L Potassium 3.2 L (3.3-5.1) mmol/L Chloride 98 (96-108) mmol/L Carbon Dioxide 35 H (22-29) mmol/L Anion Gap 18 (12-20) BUN 89 H (9-16) mg/dL Creatinine 1.90 H (0.5-1.4) mg/dL Estim Creat Clear Calc 29.1 Estimated GFR 26 Random Glucose 167 H (60-115) mg/dL Calcium 7.2 L (8.4-10.2) mg/dL Total Bilirubin 0.3 (0.0-1.0) mg/dL AST 19 (5-31) U/L ALT < 6 (0-31) U/L Alkaline Phosphatase 69 (39-117) U/L Troponin I High Sens 54.3 H* D 55.3 H* (<3.5-17.0) ng/L Total Protein 6.6 (6.5-8.0) g/dL Albumin 3.3 L (3.5-5.0) g/dL Independent Interpretation I performed an independent interpretation of an: EKG (EKG shows atrial fibrillation with a rate of 63, no evidence of acute ischemia, no ST elevation, no ectopy. QTC 460. ) Discharge Plan Discharge Clinical Impression: NSTEMI (non-ST elevated myocardial infarction) Patient Disposition: Admitted As Inpatient Print Language: Jamaican
--- NOTE | 2025-05-10 02:41 | ECG_ITS ---
Test Reason : REPEAT EKG, CHEST PAIN Blood Pressure : */* mmHG Vent. Rate : 59 BPM Atrial Rate : 59 BPM P-R Int : 154 ms QRS Dur : 120 ms QT Int : 474 ms P-R-T Axes : * -47 73 degrees QTcB Int : 469 ms Sinus bradycardia with Premature supraventricular complexes Left axis deviation Left ventricular hypertrophy with QRS widening ( R in aVL , Valatie product ) Abnormal ECG When compared with ECG of 10-May-2025 00:31, No significant changes seen Referred By: Rigoberto Martinez Electronically Signed By: JIMBO CASTILLO
[2025-05-10 03:24] LABS: Troponin-I High Sensitivity 55.3 ng/L (<3.5-17.0)
[2025-05-10 04:47] LABS: INTERNATIONAL NORM RATIO 1.2 (0.9-1.1); Prothrombin Time 14.0 SEC (10.9-12.4)
[2025-05-10 04:50] LABS: PTT Heparin Drip 33.1 SEC (53-77.9)
[2025-05-10 05:08] LABS: Hematocrit 24.7 % (37.0-47.0); Hemoglobin 7.3 g/dl (12.0-16.0); Mean Corpuscular HGB Conc 29.6 g/dl (31.0-35.0); Mean Corpuscular Hemoglobin 27.9 pg (27.0-33.0); Mean Corpuscular Volume 94.3 fL (80.0-98.0); NRBC Abs Auto 0.000 X10*3/uL (0.0-0.012); NRBC Pct Auto 0.0 /100WBC (0.0-0.2); Platelet Count 196 X10*3/uL (160-400); Red Blood Count 2.62 X10*6/uL (4.20-5.50); White Blood Count 7.8 X10*3/uL (4.8-10.8)
[2025-05-10] MEDS: Heparin Sodium,Porcine/1/2NS 25,000 UNIT/250 ML IV.SOLN 10 UNIT IVCONT (05:17)
--- NOTE | 2025-05-10 05:19 | PC.NURSE ---
Heparin drip started at 10mLs/hr per protocal. pt tolerating well.
[2025-05-10 05:29] LABS: Magnesium 1.4 mg/dL (1.6-2.6)
--- NOTE | 2025-05-10 05:31 | P.HPHOSP_ITS ---
History of Present Illness Date of Service: 05/10/25 Attending physician on admission: Demarco Hernández Chief Complaint: chest pain Pt is a 79 yo f with a PMHx significant for chronic hypoxic respiratory failure on 2 L home O2 due to COPD, morbid obesity with obstructive sleep apnea noncompliant with CPAP, chronic diastolic CHF, CKD 4, diabetes, hypertension, hyperlipidemia, hypothyroid, chronic indwelling francisco, and chronic leg wounds/pressure ulcer of the sacrum/coccyx, who presented to the ED from SNF for chest pain. the pt was just discharged yesterday for acute on chronic respiratory failure secondary to COPD and diastolic CHF exacerbations, admitted to ICU with pneumonia (sputum culture growing MRSA and Pseudomonas) extubated and transferred to the medical floor on 04/29, back to ICU on 05/05 she was treated for fluid overload and transferred back to the floor and 05/06. she describes currently 7/10 chest pain, previously 10/10, in the substrenal area with associated anxiety. no worsening pain with palpation or cough. reported previously diaphoretic but no nausea, vomiting, SOB, near-syncope or syncope. Review of Systems 2 Constitutional: Constitutional: Denies chills, Denies fatigue, Denies fever(s) and Denies headache(s) Eyes: Eyes: Denies change in vision ENT: Denies headache(s), Denies nasal congestion and Denies sore throat Cardiovascular: Cardiovascular: Reports chest pain, Reports chest pain at rest, Denies leg edema and Denies dyspnea Respiratory: Respiratory: Reports cough, Denies dyspnea and Denies wheezing Gastrointestinal: Gastrointestinal: Denies abdominal pain, Denies diarrhea, Denies nausea and Denies vomiting Genitourinary: Genitourinary: Denies dysuria and Denies urinary urgency Musculoskeletal: Musculoskeletal: Denies back pain Integumentary/Breasts: Skin/Breast: Denies rash Neurologic: Denies confusion and Denies headache(s) Psychiatric: Psychiatric: Denies confusion Endocrine: Endocrine: Denies fatigue Hematologic/Lymphatic: Hematologic/Lymphatic: Denies easy bleeding and Denies easy bruising Allergic/Immunologic: Allergic/Immunologic: Denies wheezing [facility] Medical History Pulmonary hypertension COPD (chronic obstructive pulmonary disease) CHF (congestive heart failure) MARJORIE (acute kidney injury) Pneumonitis CKD (chronic kidney disease) COPD exacerbation Renal insufficiency Urinary retention Lumbar degenerative disc disease Chronic pain syndrome Obesity hypoventilation syndrome Venous stasis dermatitis Atelectasis Generalized anxiety disorder CHF (congestive heart failure) Anemia Herpes zoster Left bundle branch block Morbid obesity Chronic pain syndrome Anxiety Pernicious anemia Hypothyroidism Essential hypertension Diabetes mellitus Pure hypercholesterolemia Family History Father CVD (cardiovascular disease) Mother No problems noted. Family/Other FH: mental illness Surgical History H/O left knee surgery Deficient knowledge of leg surgery History of tonsillectomy and adenoidectomy History of appendectomy Social History Household Members: Other Household Members Other:: son Housing: Skilled Nursing Do you presently have visiting nurse or other home services: Yes (vna) Alcohol intake: unknown Comment: 1:1 sitter for oxygen administration and redirection Patient Tobacco Use Status: Former Tobacco user Tobacco use type: Cigarette Smoked in Last 30 Days: No e-Cigarette/Vaping Use: Never Used Second Hand Smoke Exposure: No Use of substances other than those prescribed or required for medical reasons: No Advance Directives: Yes Advance Directives on File: Yes Advance Directives Date on File: 06/24/24 Do you have a plan to hurt others: No Plan service: No Current occupational status: disabled Cognitive needs: Yes (Wheelchair, Lift chair) Hearing needs: No Vision needs: Yes (Glasses) Narrative: former smoker, no etoh or drug use. Meds Allergies Allergy/AdvReac Type Severity Reaction Status Date / Time ibuprofen (From Motrin) Allergy Unknown swelling Verified 05/10/25 00:25 codeine (CODEINE) AdvReac Unknown SLEEPY Verified 05/10/25 00:25 Active Medications: Current Medications Acetaminophen (Acetaminophen 325 Mg Tablet) 975 mg PO Q6H PRN PRN Reason: Pain, Mild 1-3,fever,headache Calcium Carbonate (Calcium Carbonate 750 Mg Tab.Chew) 750 mg PO Q4H PRN PRN Reason: Heartburn Heparin Sodium/Sodium Chloride (Heparin Sodium,Porcine/1/2ns) 25,000 unit in 250 mls @ 0 mls/hr IVCONT .Q0M [facility]; Protocol Last Admin: 05/10/25 05:17 Dose: 9.96 units/kg/hr, 10 mls/hr Magnesium Hydroxide (Milk Of Magnesia 30 Ml Oral.Susp) 30 ml PO DAILY PRN PRN Reason: Constipation Melatonin (Melatonin 3 Mg Tablet) 6 mg PO BEDTIME PRN PRN Reason: Insomnia Morphine Sulfate (Morphine Sulfate 4 Mg/Ml Cartridge) 2 mg IVPUSH Q4H PRN; Protocol PRN Reason: Pain, Severe (Pain Scale 7-10) Ondansetron HCl (Ondansetron Hcl 4 Mg/2 Ml Vial) 4 mg IVPUSH Q8H PRN PRN Reason: Nausea and Vomiting Oxycodone HCl (Oxycodone Hcl Immed Release 5 Mg Tablet) 5 mg PO Q6H PRN PRN Reason: Pain, Moderate(Pain Scale 4-6) Sodium Chloride (0.9 % Sodium Chloride Flush 3 Ml Syringe) [facility] Medications ?Medication ?Instructions ?Recorded ?Confirmed ?Last Taken ?Type insulin glargine 100 unit/mL (3 25 unit subcut DAILY@1 900 04/04/25 04/25/25 04/02/25 History mL) subcutaneous pen (Basaglar KwikPen U-100 Insulin) albuterol sulfate 90 mcg/actuation 2 puff inhalation Q 6H PRN 04/25/25 04/25/25 Unknown History aerosol inhaler (Ventolin HFA) Shortness Of Breath Or Wheezing lorazepam 0.5 mg tablet (Ativan) 0.5 mg PO BID 5 04/25/25 Unknown History lorazepam 0.5 mg tablet (Ativan) 1 mg PO Q6H PRN Anxie ty 04/25/25 04/25/25 Unknown History Physical Exam 2 Vital Signs and Narrative: Vital Signs: Last Vital Signs Temp 97.4 F 05/10/25 02:47 Pulse 63 05/10/25 02:47 Resp 18 05/10/25 02:47 BP 113/35 L 05/10/25 02:47 Pulse Ox 100 05/10/25 02:47 O2 Del Method Nasal Cannula 05/10/25 02:47 O2 Flow Rate 4 05/10/25 02:47 Oxygen Flow Rate 4 05/10/25 00:21 BMI result Body Mass Index 36.8 General: AOx3, no acute distress Resp: rhoncorus, no wheezing CVS: RRR. no pain with palpation of the chest wall. GI: +BS, NT, no distention Skin: Warm, dry. no diaprhoresis. Neuro: Cranial nerves II-XII grossly intact bilaterally. Motor grossly intact bilaterally Extremities: No pitting edema Psych: Appropriate affect Const: General: No confusion Orientation/consciousness: No confusion Neuro: General: No confusion Results Labs 05/10/25 04:29 05/10/25 04:30 Labs: Laboratory Results - last 24 hr 05/10/25 05/10/25 00:44 04:29 MCV 91.7 94.3 MCH 27.8 27.9 MCHC 30.3 L 29.6 L RDW 16.3 H 16.6 H Plt Count 199 196 MPV 9.0 L 9.6 Immature Gran % (Auto) 0.5 H Neut % (Auto) 82.7 H Lymph % (Auto) 9.0 L [place] % (Auto) 6.6 Eos % (Auto) 0.8 Baso % (Auto) 0.4 Lymph # (Auto) 0.7 L [place] # (Auto) 0.5 Eos # (Auto) 0.1 Baso # (Auto) 0.0 Abs Immat Gran (auto) 0.04 H Absolute Neuts (auto) 6.2 Absolute Nucleated RBC 0.000 0.000 Nucleated RBC % (auto) 0.0 0.0 PT 13.6 H D 14.0 H INR 1.2 H 1.2 H aPTT Heparin Protocol 33.1 L Anion Gap 18 Estim Creat Clear Calc 29.1 Estimated GFR 26 Random Glucose 167 H Calcium 7.2 L Magnesium 1.4 L* Total Bilirubin 0.3 AST 19 ALT < 6 Alkaline Phosphatase 69 Total Protein 6.6 Albumin 3.3 L Assessment and Plan (1) NSTEMI (non-ST elevated myocardial infarction): Status: Acute (2) Hypokalemia: Status: Acute (3) Hypomagnesemia: Status: Acute (4) Skin ulcer of sacral region: Qualifiers: Non-pressure ulcer stage: unspecified non-pressure ulcer stage Q ualified Code(s): L98.429 - Non-pressure chronic ulcer of back with unspecified severity Status: Acute Plan Pt is a 79 yo f with a PMHx significant for chronic hypoxic respiratory failure on 2 L home O2 due to COPD, morbid obesity with obstructive sleep apnea noncompliant with CPAP, chronic diastolic CHF, CKD 4, diabetes, hypertension, hyperlipidemia, hypothyroid, chronic indwelling francisco, and chronic leg wounds/pressure ulcer of the sacrum/coccyx, who presented to the ED from SNF for chest pain. NSTEMI - trop 54.3, 55.3 on repeat - EKG with a fib initially, sinus yuri with premature supraventricular complexes on repeat. neither EKG ischemic - ED provider spoke with cardiology who suggested admission for NSTEMI due to elevated trops and chest pain - started on heparin drip in ED, continue - ASA 324mg - monitor on tele - cardiology consult acute hypokalemia and hypomagnesemia - K 3.2, repleated - mag 1.4, repleated - monitor BMP chronic normocytic anemia - at baseline, hgb 7.3, hct 247 - no need for blood transfusion at this time - monitor CBC Chronic hypoxic respiratory failure with COPD, recovering from recent exacerbation - continue O2 and home inhalers - continue prednisone 40mg daily x4 more days Pneumonia - recent +MRSA and Pseudomonas - continue Levaquin and doxycycline morbid obesity with TEZ - CPAP at bedtime chronic diastolic heart failure - cotinue home meds CKD4 - at baseline, no MARJORIE - avoid nephrotoxins when possible - monitor BMP T2DM - SSI - diabetic diet HTN - continue home meds HLD - continue home meds chronic skin ulcer sacrum - wound care consult class 2 obesity - BMI 36.8 - weight loss encouraged med rec pending full code VTE prophy: heparin Pt with NSTEMI, requiring admission for at least 2 midnights stay for heparin, monitoring and cardiology consultation. Quality Stroke Does the patient have a stroke diagnosis?: No VTE Prior VTE?: No VTE Risk Level:: Medical - moderate - high VTE Device Contraindication: Treatment Not Indicated VTE Drug Contraindication: N/A - Med Ordered
[2025-05-10 05:53] LABS: Anion Gap 17 (12-20); Blood Urea Nitrogen 80 mg/dL (9-16); Calcium 7.0 mg/dL (8.4-10.2); Carbon Dioxide 35 mmol/L (22-29); Chloride 99 mmol/L (96-108); Creatinine Clr Calc Pharmacy 30.9; Estimated Glomerular Filt Rate 27; Potassium 3.3 mmol/L (3.3-5.1); Sodium 148 mmol/L (135-145)
[2025-05-10] MEDS: Potassium Chloride Packet 20 MEQ PACKET 40 MEQ PO (06:01)
[2025-05-10] MEDS: oxyCODONE HCl Immed Release 5 MG TABLET PO (06:06)
[2025-05-10] MEDS: Magnesium Sulfate/H2O 2 GM/50 ML PIGGYBACK IV ×2 (06:37→16:37)
[2025-05-10] MEDS: Albuterol/Iprat 2.5/0.5MG 3 ML AMPUL.NEB INHALE ×5 (06:43→22:49)
--- NOTE | 2025-05-10 07:00 | CA_ITS ---
Transthoracic Echocardiogram Patient (Last, First, Middle): Radhika Vaca N Gender: Female Date of : 1945 Age: 79 Procedure Date: 05/10/2025 Procedure Type: Transthoracic Echocardiogram Location: ER Height: 165.1 cm Weight: 100.25 kg BSA: 2.06 m2 Heart Rate: 50 bpm BP: 103 / 40 mmHg Flap Presser: VH/RC Referring MD: Demarco Hernández MD Symptoms: NSTEMI Study Quality: Adequate w contrast ECG Rhythm: Sinus Conclusions: - The left ventricular systolic function is normal. The calculated ejection fraction is 70% by biplane method. - There is severe mitral annular calcification. - There is mild to moderate tricuspid valve regurgitation. - Moderate pulmonary hypertension is present. Findings Procedure Information Contrast agent, definity, is being given per protocol without apparent complications. Left Ventricle Normal left ventricular cavity size. There is mildly increased left ventricular wall thickness. The left ventricular systolic function is normal. The calculated ejection fraction is 70% by biplane method. There is no evidence of regional wall motion abnormalities. Diastolic function is indeterminate on the basis of available data. Right Ventricle Normal right ventricular cavity size and systolic function. Atria The left atrium is moderately dilated. The right atrium is normal in size. Aortic Valve There is a normal trileaflet aortic valve. There is mild calcification of the aortic valve. There is no aortic valve stenosis. There is no aortic valve regurgitation. Mitral Valve There is severe mitral annular calcification. There is no mitral valve regurgitation. Mean gradient across the mitral valve 6 mm Hg at 64/Min. Cannot exclude mild mitral stenosis. Pulmonic Valve There is trace pulmonic valve regurgitation. Tricuspid Valve Normal tricuspid valve structure. There is mild to moderate tricuspid valve regurgitation. The right ventricular systolic pressure is 62 mmHg. Moderate pulmonary hypertension is present. Great Vessels The asc aorta is normal in size. Small plaque is seen in the sino tubular ridge. Venous The inferior vena cava is mildly dilated and collapses greater than 50% with inspiration. Pericardium/Pleural There is no evidence of pericardial effusion. Prior Study Comparison No significant change compared to prior study dated: 06/20/2024. Measurements 2D Linear Measurements IVSd: 1.09 0.6-0.9/0.6-1.0 cm LVIDd: 5.24 3.9-5.3/4.2-5.9 cm LVIDd Index: 2.54 2.4-3.2/2.2-3.1 cm/m2 LVIDs: 3.23 2.0-3.6 cm LVPWd: 1.02 0.7-1.1 cm LA Diam: 4.30 2.7-3.8/3.0-4.0 cm LAIDs Index: 2.09 1.5-2.3 cm/m2 LV Mass: 263.32 67-162/88-224 g LV Mass Index: 127.82 43-95/49-115 g/m2 LVOT Diam: 2.00 3.0+(-)1.3 cm 2D Systolic Function EF 4C: 70.40 >55% EF 2C: 73.20 >55% EF BiP: 70.30 >55% Mitral Valve MV VTI: 0.81 MV Pk Hayden: 2.03 MV Mn Hayden: 1.08 MV Pk Grad: 16.00 MV Mn Grad: 6.00 MV Pk E: 1.94 MV PK A: 1.33 MV Decel Time: 348.00 E/A: 1.50 E'Lateral: 6.31 E'Medial: 4.57 E/E' Med: 42.50 E/E' Lat: 30.70 PHT: 102.00 MVA PHT: 2.16 MVA Continuity: 1.00 Decel Mellette: 5.58 Aortic Valve AoV Pk Hayden: 1.83 AoV Mn Hayden: 1.37 AoV VTI: 0.45 AoV Pk Grad: 13.00 Aov Mn Grad: 9.00 CHASITY Cont.VTI: 1.79 LVOT LVOT Pk Hayden: 1.14 LVOT Mn Hayden: 0.72 LVOT VTI: 0.26 LVOT Pk Grad: 5.00 LVOT Mn Grad: 2.00 LVOT Diam: 2.00 LVOT Area: 3.14 Diastolic Function MV Pk E: 1.94 MV Pk A: 1.33 E/A: 1.50 E'Medial: 4.57 E/E' Med: 42.50 E' Laterial: 6.31 E/E' Lat: 30.70 Right Ventricle TAPSE (mm): 22.30 TVS' Hayden: 9.89 Tricuspid Valve TR Pk Hayden: 3.42 TR Pk Grad: 47.00 RA Press: 15.00 RVSP: 62.00 Great Vessels Aorta Sinus of Valsalva: 3.40 2.0-3.5 cm Ao Asc: 3.40 2.1-3.4 cm Pulmonary Valve PV Pk Hayden: 0.69 Peak PV Grad: 2.00 Updated in Other Vendor System with Status of Final Win Hewitt MD electronically signed on 05/10/2025 4:51:31 PM with status of Final
[2025-05-10 07:15] LABS: Glucose, Whole Blood 142 mg/dL (60-115)
--- NOTE | 2025-05-10 07:36 | PC.NURSE ---
Will attempt secondary IV placement, pt request to await finishing her breakfast. Attempting to decrease 02
[2025-05-10 08:01] LABS: Magnesium 1.5 mg/dL (1.6-2.6)
--- NOTE | 2025-05-10 08:06 | PC.NURSE ---
Pt c/o food getting stuck, airway patent and sat remain stable at 97%, speech ordered eval ordered, Dr Nelson aware. Pt to be NPO until speech evaluation.
--- NOTE | 2025-05-10 08:22 | PC.NURSE ---
echo being done at this time PTT order placed for 1117 per protocol
[2025-05-10] MEDS: 0.9 % Sodium Chloride Flush 3 ML SYRINGE IVFLUSH (08:55)
--- NOTE | 2025-05-10 09:21 | PC.NURSE ---
Pt alert and oriented, reporting 10/10 pain in her tailbone area, states is chronic for her. Pt refusing to be repositioned. Will obtain a hospital bed for comfort. Also has 6/10 chest pain. Medicated as charted. Second 22g IV placed in right hand with Mag infusing. Mag delayed due to Pt needing secondary IV. Also has 20g in left wrist with heparin infusing 10 mL/hr. Pt breathing normally unlabored on O2 2L NC. Skin pink, warm and dry. NSR on tele. Shes voiding clear yellow urine in franc[place]. 1200 mL urine emptied this AM.
--- NOTE | 2025-05-10 09:30 | P.CONCA_ITS ---
History of Present Illness History of Present Illness Date of Service: 05/10/25 Chief complaint: chest pain Narrative: This is a cardiology consultation regarding chest pain. It appears that patient was recently in the hospital for acute on chronic respiratory failure in the setting of COPD with underlying pneumonia/heart failure exacerbation. She was in ICU and had to be intubated and required mechanical ventilation. Eventually was stable enough to be discharged and she was actually discharged yesterday. However, it seems that she developed chest pain along with some anxiety type feeling and that led to the ER visit. Troponins were again checked and they were slightly higher than her baseline and hence she was admitted. Currently, she is not having any chest pain but she is rather complaining of pain in the lower part of the back. Along with the chest pain itself, she states she also feels some shortness of breath. When asked her about various characteristics, she states she did feel some increase with breathing and hence not clear if she is just describing rather pleuritic type chest pain. However, currently the chest pain itself is resolved. Review of Systems 2 Review of Systems: Yes all other systems are reviewed and are negative Constitutional: Constitutional: Reports as per HPI and Reports no additional constitutional complaints Eyes: Eyes: Reports as per HPI and Denies no additional eye complaints ENT: Denies system reviewed and no additional complaints, except as documented and Reports as per HPI Cardiovascular: Cardiovascular: Reports as per HPI, Reports no additional cardiovascular complaints, Denies acrocyanosis, Denies cool extremities, Reports chest pain, Denies leg edema, Denies lightheadedness, Denies palpitations and Reports dyspnea Respiratory: Respiratory: Reports as per HPI, Denies no additional respiratory complaints and Reports dyspnea Gastrointestinal: Gastrointestinal: Reports as per HPI and Denies no additional gastrointestinal complaints Genitourinary: Genitourinary: Reports as per HPI Musculoskeletal: Musculoskeletal: Reports no additional musculoskeletal complaints and Reports as per HPI Integumentary/Breasts: Skin/Breast: Reports system reviewed and no additional complaints, except as docu Neurologic: Reports system reviewed and no additional complaints, except as documented and Reports as per HPI Psychiatric: Psychiatric: Reports no additional psychiatric complaints and Reports as per HPI Endocrine: Endocrine: Reports no additional endocrine complaints, Reports as per HPI and Denies palpitations Hematologic/Lymphatic: Hematologic/Lymphatic: Reports no additional hematologic/lymphatic complaints and Reports as per HPI Allergic/Immunologic: Allergic/Immunologic: Reports no additional allergic/immunologic complaints and Reports as per HPI [facility] Past Medical History Medical History Pulmonary hypertension COPD (chronic obstructive pulmonary disease) CHF (congestive heart failure) MARJORIE (acute kidney injury) Pneumonitis CKD (chronic kidney disease) COPD exacerbation Renal insufficiency Urinary retention Lumbar degenerative disc disease Chronic pain syndrome Obesity hypoventilation syndrome Venous stasis dermatitis Atelectasis Generalized anxiety disorder CHF (congestive heart failure) Anemia Herpes zoster Left bundle branch block Morbid obesity Chronic pain syndrome Anxiety Pernicious anemia Hypothyroidism Essential hypertension Diabetes mellitus Pure hypercholesterolemia Family History Family History Father CVD (cardiovascular disease) Mother No problems noted. Family/Other FH: mental illness Surgical History Surgical History H/O left knee surgery Deficient knowledge of leg surgery History of tonsillectomy and adenoidectomy History of appendectomy Social History Social History Household Members: Other Household Members Other:: son Housing: Senior Living Do you presently have visiting nurse or other home services: Yes (vna) Alcohol intake: unknown Comment: 1:1 sitter for oxygen administration and redirection Patient Tobacco Use Status: Former Tobacco user Tobacco use type: Cigarette Smoked in Last 30 Days: No e-Cigarette/Vaping Use: Never Used Second Hand Smoke Exposure: No Use of substances other than those prescribed or required for medical reasons: No Advance Directives: Yes Advance Directives on File: Yes Advance Directives Date on File: 06/24/24 Do you have a plan to hurt others: No Plan Nutrition Risks: No Nutritional Risk service: No Current occupational status: disabled Cognitive needs: Yes (Wheelchair, Lift chair) Hearing needs: No Vision needs: Yes (Glasses) Meds Allergies Allergy/AdvReac Type Severity Reaction Status Date / Time ibuprofen (From Motrin) Allergy Unknown swelling Verified 05/10/25 00:25 codeine (CODEINE) AdvReac Unknown SLEEPY Verified 05/10/25 00:25 Active Medications: Current Medications Acetaminophen (Acetaminophen 325 Mg Tablet) 975 mg PO Q6H PRN PRN Reason: Pain, Mild 1-3,fever,headache Albuterol/Ipratropium (Albuterol/Iprat 2.5/0.5mg 3 Ml Ampul.Neb) 3 ml INHALE Q4H PRN PRN Reason: Shortness of Breath/Wheezing Last Admin: 05/10/25 06:43 Dose: 3 ml Calcium Carbonate (Calcium Carbonate 750 Mg Tab.Chew) 750 mg PO Q4H PRN PRN Reason: Heartburn Dextrose (Dextrose 50 % 25 Gm/50 Ml Syringe) 25 gm IVPUSH Q15M PRN; Protocol PRN Reason: per Hypoglycemia Standing Ord. Glucose (Glucose Gel 15 Gm Gel..Gram.) 15 gm PO Q15M PRN; Protocol PRN Reason: per Hypoglycemia Standing Ord. Heparin Sodium/Sodium Chloride (Heparin Sodium,Porcine/1/2ns) 25,000 unit in 250 mls @ 0 mls/hr IVCONT .Q0M [facility]; Protocol Last Admin: 05/10/25 05:17 Dose: 9.96 units/kg/hr, 10 mls/hr Insulin Glargine (Insulin Glargine,Hum.Rec.Anlog 100 Unit/Ml 10 Ml Vial) 17 unit SUBCUT DAILY@1900 GEO Insulin Human Lispro (Insulin Lispro 100 Unit/Ml 3 Ml Vial) 0 unit SUBCUT QIDACHS [facility]; Protocol Last Admin: 05/10/25 07:36 Dose: Not Given Magnesium Hydroxide (Milk Of Magnesia 30 Ml Oral.Susp) 30 ml PO DAILY PRN PRN Reason: Constipation Melatonin (Melatonin 3 Mg Tablet) 6 mg PO BEDTIME PRN PRN Reason: Insomnia Morphine Sulfate (Morphine Sulfate 4 Mg/Ml Cartridge) 2 mg IVPUSH Q4H PRN; Protocol PRN Reason: Pain, Severe (Pain Scale 7-10) Last Admin: 05/10/25 08:55 Dose: 2 mg Ondansetron HCl (Ondansetron Hcl 4 Mg/2 Ml Vial) 4 mg IVPUSH Q8H PRN PRN Reason: Nausea and Vomiting Oxycodone HCl (Oxycodone Hcl Immed Release 5 Mg Tablet) 5 mg PO Q6H PRN PRN Reason: Pain, Moderate(Pain Scale 4-6) Last Admin: 05/10/25 06:06 Dose: 5 mg Sodium Chloride (0.9 % Sodium Chloride Flush 3 Ml Syringe) 3 ml IVFLUSH QSHIFT GEO Last Admin: 05/10/25 08:55 Dose: 3 ml Home Medications ?Medication ?Instructions ?Recorded ?Confirmed ?Last Taken ?Type insulin glargine 100 unit/mL (3 25 unit subcut DAILY@1 900 04/04/25 05/10/25 04/02/25 History mL) subcutaneous pen (Basaglar KwikPen U-100 Insulin) albuterol sulfate 90 mcg/actuation 2 puff inhalation Q 6H PRN 04/25/25 05/10/25 Unknown History aerosol inhaler (Ventolin HFA) Shortness Of Breath Or Wheezing lorazepam 0.5 mg tablet (Ativan) 0.5 mg PO BID 5 05/10/25 Unknown History lorazepam 0.5 mg tablet (Ativan) 1 mg PO Q6H PRN Anxie ty 04/25/25 05/10/25 Unknown History acetaminophen 325 mg tablet 650 mg PO Q4H PRN Fever Or Pain 05/10/25 05/10/25 Unknown History acetaminophen 650 mg rectal 650 mg WI Q4H PRN Fever Or Pain 05/10/25 05/10/25 Unknown History suppository bisacodyl 10 mg rectal suppository 10 mg WI DAILY PRN Constipation 05/10/25 05/10/25 Unknown History insulin lispro 100 unit/mL 1 sliding scale dose subcut TIDAC 05/10/25 05/10/25 Unknown History subcutaneous solution (Humalog U-100 Insulin) magnesium hydroxide 400 mg/5 mL 30 ml PO DAILY PRN Con stipation 05/10/25 05/10/25 Unknown History oral suspension (Milk of Magnesia) sodium phosphates 19 gram-7 118 ml WI DAILY PRN Consti pation 05/10/25 05/10/25 Unknown History gram/118 mL enema (Fleet Enema) Physical Exam 2 Vital Signs: Vital Signs: Last Vital Signs Temp 97.5 F 05/10/25 05:58 Pulse 63 05/10/25 08:50 Resp 20 05/10/25 08:55 BP 121/52 L 05/10/25 08:50 Pulse Ox 100 05/10/25 08:50 O2 Del Method Nasal Cannula 05/10/25 08:50 O2 Flow Rate 2 05/10/25 08:50 Oxygen Flow Rate 4 05/10/25 00:21 BMI result Body Mass Index 36.8 Const: General: comfortable and no acute distress O rientation/consciousness: patient oriented x3 HEENT: Other: Unremarkable Head: Yes normal to inspection Neck: Neck: Yes normal visual inspection Chest: Chest palpation & inspection: normal inspection of the chest Resp: Auscultation: wheezes and diminished lung sounds Cardio: Palpation: normal PMI Heart sounds: S1 normal heart sound present, S2 normal heart sound present, no gallops, no murmurs and no rubs GI: Palpation (GI): Soft to palpation Back/Spine/Pelvis: Other: unremarkable Skin: General skin exam: no rashes or lesions noted Neuro: General: patient oriented x3 Extrem: Other: chronic leg changes General: Yes normal to inspection Psych: Mental Status: mental status grossly normal Objective Labs and Meds 05/10/25 04:29 05/10/25 04:30 Lab results: Laboratory Results - last 24 hr 05/10/25 05/10/25 05/10/25 00:44 02:54 04:29 WBC 7.4 7.8 RBC 2.77 L 2.62 L Hgb 7.7 L 7.3 L Hct 25.4 L 24.7 L MCV 91.7 94.3 MCH 27.8 27.9 MCHC 30.3 L 29.6 L RDW 16.3 H 16.6 H Plt Count 199 196 MPV 9.0 L 9.6 Immature Gran % (Auto) 0.5 H Neut % (Auto) 82.7 H Lymph % (Auto) 9.0 L [place] % (Auto) 6.6 Eos % (Auto) 0.8 Baso % (Auto) 0.4 Lymph # (Auto) 0.7 L [place] # (Auto) 0.5 Eos # (Auto) 0.1 Baso # (Auto) 0.0 Abs Immat Gran (auto) 0.04 H Absolute Neuts (auto) 6.2 Absolute Nucleated RBC 0.000 0.000 Nucleated RBC % (auto) 0.0 0.0 PT 13.6 H D 14.0 H INR 1.2 H 1.2 H aPTT Heparin Protocol 33.1 L Sodium 148 H Potassium 3.2 L Chloride 98 Carbon Dioxide 35 H Anion Gap 18 BUN 89 H Creatinine 1.90 H Estim Creat Clear Calc 29.1 Estimated GFR 26 POC Glucose Random Glucose 167 H Calcium 7.2 L Magnesium 1.4 L* Total Bilirubin 0.3 AST 19 ALT < 6 Alkaline Phosphatase 69 Troponin I High Sens 54.3 H* D 55.3 H* Total Protein 6.6 Albumin 3.3 L 05/10/25 05/10/25 04:30 07:09 WBC RBC Hgb Hct MCV MCH MCHC RDW Plt Count MPV Immature Gran % (Auto) Neut % (Auto) Lymph % (Auto) [place] % (Auto) Eos % (Auto) Baso % (Auto) Lymph # (Auto) [place] # (Auto) Eos # (Auto) Baso # (Auto) Abs Immat Gran (auto) Absolute Neuts (auto) Absolute Nucleated RBC Nucleated RBC % (auto) PT INR aPTT Heparin Protocol Sodium 148 H Potassium 3.3 Chloride 99 Carbon Dioxide 35 H Anion Gap 17 BUN 80 H Creatinine 1.79 H Estim Creat Clear Calc 30.9 Estimated GFR 27 POC Glucose 142 H Random Glucose 145 H Calcium 7.0 L Magnesium 1.5 L Total Bilirubin AST ALT Alkaline Phosphatase Troponin I High Sens Total Protein Albumin ECG Interpretation: EKG has baseline artifact. Sinus rhythm at 63/Min and supraventricular ectopy; minimal criteria for LVH; leftward axis. Repeat EKGs also similar. Assessment and Plan (1) Elevated troponin: Status: Acute Plan Troponin level is flat in the 50s. On April 25 it was 22. Chest x-ray from May 04 showed chronic interstitial lung disease with acute small airway inflammation versus multifocal pneumonia/aspiration pneumonia left- sided pleural effusion. Cardiomegaly versus pericardial effusion. On clinical exam, she does sound quite wheezy. Hence chest pain could be of respiratory origin and with demand related troponin leak. We will check an echocardiogram to ensure there is no obvious cardiac finding. If that is the case, then mainly treat her pulmonary issues. With the extent of her comorbidities, she is not a suitable candidate for ischemia workup. Procedures Date of Service Date of Service: 05/10/25
--- NOTE | 2025-05-10 09:38 | PC.NURSE ---
Speech eval at bedside
--- NOTE | 2025-05-10 09:44 | PHA.MEDREC ---
Pharmacy Consult ? Medication Reconciliation Pharmacy has completed the medication reconciliation, using med list from [facility].
--- NOTE | 2025-05-10 10:18 | MHC.SL.SWA ---
Speech Pathologist Impression: Adequate oropharyngeal swallow despite missing teeth and c/o globus. Risk of Aspiration Due to: PMH respiratory involvement Dysphasia Diet Status: Recommend NDD2 (ground) with thin liquids. Moisten food in sauce/gravy. Meds as pt prefers in puree (crushed or whole). Upright position encouraged for all PO to reduce risk of aspiration. Recommend continued dysphagia tx at next level of care to monitor tolerance of least restrictive diet and educate pt on physiological mechanism of swallow/use of compensatory strategies. Liquid Consistency and Strategies for Safe Swallow: Liquid Intake Recommendation: Thin Liquid Intake Strategies: Solid Food Consistency: Dietary Recommendations: Grnd/Mech Altered (NDD2), extra gravies Additional Modifications to Solid Foods: Oral Medication Intake: Whole with Puree Please contact the pharmacy regarding appropriate crushable or liquid drug formulations that are available whenever modified delivery is recommended. Compensatory Strategies and Precautions to be Taken for Safe Swallow: Supervision While Eating and Drinking for Safe Swallow: Intermittent Supervision Foods to Avoid: Tough, difficult to chew solids Swallowing Recommended Treatments: Recommendation for Speech: Inpatient Speech Therapy Comment: 05/10 eval: Pt missing several teeth and c/o intermittent jaw clicking when chewing. ROM of mandible WNL. Tongue/lip/pharyngeal strength and coordination unremarkable. Voicing absent of wetness. Pt tolerated thins by cup and straw without overt s/s of aspiration. Oropharyngeal coordination WNL for soft solids and purees, no overt s/s of aspiration. Pt c/o sensation of globus when eating both solids and purees. VERSE WRITER provided education with visual referent on physiological mechanism of oropharyngeal swallow. Pt able to implement compensatory strategies of alternating consistencies, swallowing hard, double swallow given minimal cues. MD and RN notified of recc via secure text. VERSE WRITER will follow for education and training in use of compensatory techniques to reduce risk for aspiration. Pt risk for aspiration is considered minimal. Pt in agreement with downgraded diet: NDD2 with thins. Frequency/Duration: Daily M-F Date Range for Service Req: Timeline to reassess: Mold Blower Clinican/Clinical Fellow: No Supervisory Statement: I have reviewed and agree with the student/clinical fellow's documentation: N/A Speech Language Pathologist: Doreen Younger M.S., CCC-VERSE WRITER
--- NOTE | 2025-05-10 10:40 | MHC.CM.PN ---
Attempted to meet with patient in regards to discharge planning. Patient currently sleeping. Spoke with patient's son/HCP,Robbie via telephone at [phone]. At baseline, patient lives home with Robbie, uses a wheelchair/cane for mobility, uses [employer] for oxygen and [facility] for home care. Patient was d/c'd from [facility] on 05/09 to [facility] for STR. Anticipate patient will return to [facility] when medically stable. Return referral made in [facility]. HCP verified to be on file. PCP verified as Dr Chun Soto. IMM explained to Robbie and left bedside. BLS transport will be needed when medically stable. Continue to monitor for d/c needs.
[2025-05-10 11:31] LABS: PTT Heparin Drip 47.7 SEC (53-77.9)
--- NOTE | 2025-05-10 12:04 | MHC.CLN ---
NUTRITION DIET CHANGED TO GROUND PER FILM SPLICER REC 05/10 DIET=DIABETIC 2000 KCAL, 2 GRAM SODIUM, GROUND CONSISTENCY.
[2025-05-10 12:24] LABS: Glucose, Whole Blood 170 mg/dL (60-115)
--- NOTE | 2025-05-10 12:55 | PC.NURSE ---
No PRN orders for bolus heparin gtt, pharmacy called and will put PRN orders in, ptt 47.7, gtt need adjustment and bolus
--- NOTE | 2025-05-10 15:01 | HO.PM.IMPN ---
Subjective Subjective Date of Service: 05/10/25 Interval History: chest pain resolved c/o dyspnea Review of Systems Review of Systems: Yes all other systems are reviewed and are negative Physical Exam Vital Signs: Vital Signs: Last Vital Signs Temp 97.5 F 05/10/25 05:58 Pulse 67 05/10/25 14:47 Resp 15 05/10/25 14:47 BP 133/40 L 05/10/25 13:02 Pulse Ox 97 05/10/25 13:02 O2 Del Method Nasal Cannula 05/10/25 13:02 O2 Flow Rate 2 05/10/25 13:02 Oxygen Flow Rate 4 05/10/25 00:21 BMI result Body Mass Index 36.8 Gen: in no acute distress HEENT: sclera anicteric, moist mucus membranes Neck: supple Lungs: diminished, expiratory wheezing Heart: regular rate and rhythm, no murmurs Abd: soft, non-tender, non-distended Ext: no edema Skin: warm/well-perfused Neuro: alert and oriented x3, no focal findings Psych: appropriate affect Objective Data Active Medications Acetaminophen (Acetaminophen 325 Mg Tablet) 975 mg PO Q6H PRN PRN Reason: Pain, Mild 1-3,fever,headache Albuterol/Ipratropium (Albuterol/Iprat 2.5/0.5mg 3 Ml Ampul.Neb) 3 ml INHALE Q4H PRN PRN Reason: Shortness of Breath/Wheezing Last Admin: 05/10/25 14:30 Dose: 3 ml Documented By: ALBARO Amlodipine Besylate (Amlodipine Besylate 5 Mg Tablet) 5 mg PO DAILY [facility]; Protocol Atorvastatin Calcium (Atorvastatin Calcium 40 Mg Tablet) 40 mg PO BEDTIME [facility] Benzonatate (Benzonatate 100 Mg Capsule) 100 mg PO TID PRN PRN Reason: Cough Bisacodyl (Bisacodyl 10 Mg Supp.Rect) 10 mg IN DAILY PRN PRN Reason: Constipation Calcium Carbonate (Calcium Carbonate 750 Mg Tab.Chew) 750 mg PO Q4H PRN PRN Reason: Heartburn Dextrose (Dextrose 50 % 25 Gm/50 Ml Syringe) 25 gm IVPUSH Q15M PRN; Protocol PRN Reason: per Hypoglycemia Standing Ord. Empagliflozin (Empagliflozin 10 Mg Tablet) 10 mg PO DAILY [facility] Ferrous Sulfate (Ferrous Sulfate 324 Mg Tablet.Dr) 324 mg PO DAILY [facility] Furosemide (Furosemide 40 Mg Tablet) 40 mg PO BID@0900,1800 [facility]; Protocol Gemfibrozil (Gemfibrozil 600 Mg Tablet) 600 mg PO BID [facility] Glucose (Glucose Gel 15 Gm Gel..Gram.) 15 gm PO Q15M PRN; Protocol PRN Reason: per Hypoglycemia Standing Ord. Heparin Sodium (Porcine) (Heparin Sodium,Porcine 5,000 Unit/Ml Vial) 4,000 unit 40 unit/kg (4000 unit) IVPUSH PROTOCOL BOLUS PRN PRN Reason: 40 unit/kg - Heparin Protocol Last Admin: 05/10/25 13:24 Dose: 4,000 unit Documented By: DIA Heparin Sodium (Porcine) (Heparin Sodium,Porcine 5,000 Unit/Ml Vial) 8,000 unit 80 unit/kg (8000 unit) IVPUSH PROTOCOL BOLUS PRN PRN Reason: 80 unit/kg - Heparin Protocol Heparin Sodium/Sodium Chloride (Heparin Sodium,Porcine/1/2ns) 25,000 unit in 250 mls @ 0 mls/hr IVCONT .Q0M [facility]; Protocol Last Titration: 05/10/25 12:45 Dose: 11.96 units/kg/hr, 12.01 mls/hr Documented By: DIA Co-signed By: ARIANNE Insulin Glargine (Insulin Glargine,Hum.Rec.Anlog 100 Unit/Ml 10 Ml Vial) 17 unit SUBCUT DAILY@1900 [facility] Insulin Human Lispro (Insulin Lispro 100 Unit/Ml 3 Ml Vial) 0 unit SUBCUT QIDACHS [facility]; Protocol Last Admin: 05/10/25 12:52 Dose: 2 unit Documented By: TRACI Levofloxacin (Levofloxacin 750 Mg Tablet) 750 mg PO DAILY [facility] Levothyroxine Sodium (Levothyroxine Sodium 200 Mcg Tablet) 200 mcg PO DAILY@0600 [facility] Lorazepam (Lorazepam 1 Mg Tablet) 1 mg PO Q6H PRN PRN Reason: Anxiety Lorazepam (Lorazepam 0.5 Mg Tablet) 0.5 mg PO BID [facility] Magnesium Hydroxide (Milk Of Magnesia 30 Ml Oral.Susp) 30 ml PO DAILY PRN PRN Reason: Constipation Magnesium Hydroxide (Milk Of Magnesia 30 Ml Oral.Susp) 30 ml PO DAILY PRN PRN Reason: Constipation Melatonin (Melatonin 3 Mg Tablet) 6 mg PO BEDTIME PRN PRN Reason: Insomnia Morphine Sulfate (Morphine Sulfate 4 Mg/Ml Cartridge) 2 mg IVPUSH Q4H PRN; Protocol PRN Reason: Pain, Severe (Pain Scale 7-10) Last Admin: 05/10/25 14:22 Dose: 2 mg Documented By: DIA Ondansetron HCl (Ondansetron Hcl 4 Mg/2 Ml Vial) 4 mg IVPUSH Q8H PRN PRN Reason: Nausea and Vomiting Oxycodone HCl (Oxycodone Hcl Immed Release 5 Mg Tablet) 5 mg PO Q6H PRN PRN Reason: Pain, Moderate(Pain Scale 4-6) Last Admin: 05/10/25 06:06 Dose: 5 mg Documented By: ANATOLIY Sertraline HCl (Sertraline Hcl 25 Mg Tablet) 75 mg PO DAILY [facility] Sodium Bicarbonate (Sodium Bicarbonate 650 Mg Tablet) 650 mg PO DAILY [facility] Sodium Biphosphate/Sodium Phosphate (Sodium Phosphate,[place]-Dibasic 133 Ml Enema) 118 ml IN DAILY PRN PRN Reason: Constipation Sodium Chloride (0.9 % Sodium Chloride Flush 3 Ml Syringe) [facility] Last Admin: 05/10/25 08:55 Dose: 3 ml Documented By: DIA Sodium Zirconium Cyclosilicate (Sodium Zirconium Cyclosilicate 10 Gm Powd.Pack) 10 gm PO DAILY [facility] Labs 05/10/25 04:29 05/10/25 04:30 Labs: Laboratory Results - last 24 hr 05/10/25 05/10/25 05/10/25 00:44 04:29 04:30 MCV 91.7 94.3 MCH 27.8 27.9 MCHC 30.3 L 29.6 L RDW 16.3 H 16.6 H Plt Count 199 196 MPV 9.0 L 9.6 Immature Gran % (Auto) 0.5 H Neut % (Auto) 82.7 H Lymph % (Auto) 9.0 L [place] % (Auto) 6.6 Eos % (Auto) 0.8 Baso % (Auto) 0.4 Lymph # (Auto) 0.7 L [place] # (Auto) 0.5 Eos # (Auto) 0.1 Baso # (Auto) 0.0 Abs Immat Gran (auto) 0.04 H Absolute Neuts (auto) 6.2 Absolute Nucleated RBC 0.000 0.000 Nucleated RBC % (auto) 0.0 0.0 PT 13.6 H D 14.0 H INR 1.2 H 1.2 H aPTT Heparin Protocol 33.1 L Anion Gap 18 17 Estim Creat Clear Calc 29.1 30.9 Estimated GFR 26 27 POC Glucose Random Glucose 167 H 145 H Calcium 7.2 L 7.0 L Magnesium 1.4 L* 1.5 L Total Bilirubin 0.3 AST 19 ALT < 6 Alkaline Phosphatase 69 Total Protein 6.6 Albumin 3.3 L 05/10/25 05/10/25 05/10/25 07:09 11:16 12:21 MCV MCH MCHC RDW Plt Count MPV Immature Gran % (Auto) Neut % (Auto) Lymph % (Auto) [place] % (Auto) Eos % (Auto) Baso % (Auto) Lymph # (Auto) [place] # (Auto) Eos # (Auto) Baso # (Auto) Abs Immat Gran (auto) Absolute Neuts (auto) Absolute Nucleated RBC Nucleated RBC % (auto) PT INR aPTT Heparin Protocol 47.7 L D Anion Gap Estim Creat Clear Calc Estimated GFR POC Glucose 142 H 170 H Random Glucose Calcium Magnesium Total Bilirubin AST ALT Alkaline Phosphatase Total Protein Albumin Assessment and Plan (1) Elevated troponin: Status: Acute Assessment and Plan: d1 for 79yo F with chronic hypoxia on 2L O2 for COPD, TEZ, diastolic HF, CKD4, DM2, HTN, hypothyroidism, and chronic pressure ulcers; recent admission to ICU requiring mechanical ventilation for MRSA + Pseudomonas PNA/CHF, just discharged 05/09 but then developed chest paind and anxiety; had slightly higher troponin and so admitted for concern of NSTEMI. elevated troponin - suspect demand from lung issues per Cardiology but remains on heparin drip pending echocardiogram COPD with likely exacerbation - was discharged on 4 days of prednisone but will give higher dose of IV methylprednisolone given active wheezing recent PNA - completed doxycycline, continue levofloxacin for both PNA and COPD hypoK hypoMg - replete, recheck tomorrow AM normocytic anemia - suspect due to CKD + recent acute illness but recheck H+H in AM chronic hypoxia - continue O2, on 2L at home TEZ - CPAP at bedtime CKD4 - SCr at baseline, monitor - continue bicarbonate + Lokelma chronic HFpEF - continue furosemide HTN - amlodipine hypothyroidism - continue LT4 mood disorder - continue sertraline + lorazepam DM2 - basal-bolus insulin, empagliflozin sacral ulcer - Wound Care consultation HLD - statin VTE ppx - UFH dispo - eventual return to STR In my clinical judgment, the patient requires continued inpatient hospitalization for the following reasons: cardiac workup Total time managing care of this patient today: 45 minutes. Quality Stroke Does the patient have a stroke diagnosis?: No VTE Prior VTE?: No VTE Risk Level:: Medical - moderate - high VTE Device Contraindication: Treatment Not Indicated VTE Drug Contraindication: N/A - Med Ordered
[2025-05-10 17:43] LABS: Glucose, Whole Blood 193 mg/dL (60-115)
[2025-05-10 20:23] LABS: Glucose, Whole Blood 271 mg/dL (60-115)
[2025-05-10] MEDS: Insulin Glargine,Hum.rec.anlog 100 UNIT/ML 10 ML VIAL 17 UNIT SUBCUT (21:55)
--- NOTE | 2025-05-10 22:55 | PC.RT ---
pt refusing CPAP
[2025-05-11] VITALS (11 sets, daily range): BP systolic 101–146; BP diastolic 51–73; PULSE 63–89; RESP 16–18; TEMP 35.9–36.9; O2SAT 91–98
[2025-05-11 07:04] LABS: Hematocrit 24.4 % (37.0-47.0); Hemoglobin 7.3 g/dl (12.0-16.0); Mean Corpuscular HGB Conc 29.9 g/dl (31.0-35.0); Mean Corpuscular Hemoglobin 27.5 pg (27.0-33.0); Mean Corpuscular Volume 92.1 fL (80.0-98.0); NRBC Abs Auto 0.000 X10*3/uL (0.0-0.012); NRBC Pct Auto 0.0 /100WBC (0.0-0.2); Platelet Count 190 X10*3/uL (160-400); Red Blood Count 2.65 X10*6/uL (4.20-5.50); White Blood Count 6.7 X10*3/uL (4.8-10.8)
[2025-05-11 07:36] LABS: Anion Gap 15 (12-20); Blood Urea Nitrogen 81 mg/dL (9-16); Calcium 7.3 mg/dL (8.4-10.2); Carbon Dioxide 37 mmol/L (22-29); Chloride 97 mmol/L (96-108); Creatinine Clr Calc Pharmacy 34.3; Estimated Glomerular Filt Rate 31; Magnesium 2.0 mg/dL (1.6-2.6); Potassium 4.4 mmol/L (3.3-5.1); Sodium 145 mmol/L (135-145)
[2025-05-11] MEDS: Albuterol/Iprat 2.5/0.5MG 3 ML AMPUL.NEB INHALE ×3 (07:38→18:47)
[2025-05-11 07:47] LABS: Glucose, Whole Blood 197 mg/dL (60-115)
[2025-05-11 08:02] LABS: Reticulocytes Absolute 0.064 X10*6/uL (0.026-0.095)
[2025-05-11 08:28] LABS: Iron 42 mcg/dL (30-160); Percent Iron Saturation 23 % (15-50); Total Iron Binding Capacity 185 mcg/dL (228-428); Unsaturated Iron Binding 143 ug/dL
[2025-05-11 08:45] LABS: Ferritin 87 ng/mL (10-250); Procalcitonin 0.35 ng/mL
[2025-05-11] MEDS: Ferrous Sulfate 324 MG TABLET.DR PO (09:11)
[2025-05-11] MEDS: 0.9 % Sodium Chloride Flush 3 ML SYRINGE IVFLUSH ×3 (09:12→20:36)
--- NOTE | 2025-05-11 10:28 | MHC.CM.PN ---
Per ROUNDS discussion, Patient is requesting a different SNF to complete her STR; additional referrals have been made and CM will continue follow.
[2025-05-11 11:14] LABS: Glucose, Whole Blood 203 mg/dL (60-115)
--- NOTE | 2025-05-11 12:01 | HO.PM.IMPN ---
Subjective Subjective Date of Service: 05/11/25 Interval History: chest pain resolved, breathing improved Review of Systems Review of Systems: Yes all other systems are reviewed and are negative Physical Exam Vital Signs: Vital Signs: Last Vital Signs Temp 97.2 F 05/11/25 11:15 Pulse 73 05/11/25 11:15 Resp 17 05/11/25 11:15 BP 101/51 L 05/11/25 11:15 Pulse Ox 95 05/11/25 11:15 O2 Del Method Oxymask 05/11/25 11:15 O2 Flow Rate 2 05/11/25 07:45 Oxygen Flow Rate 4 05/10/25 00:21 BMI result Body Mass Index 36.8 Gen: in no acute distress HEENT: sclera anicteric, moist mucus membranes Neck: supple Lungs: diminished, expiratory wheezing Heart: regular rate and rhythm, no murmurs Abd: soft, non-tender, non-distended Ext: no edema Skin: warm/well-perfused Neuro: alert and oriented x3, no focal findings Psych: appropriate affect Objective Data Active Medications Acetaminophen (Acetaminophen 325 Mg Tablet) 975 mg PO Q6H PRN PRN Reason: Pain, Mild 1-3,fever,headache Albuterol/Ipratropium (Albuterol/Iprat 2.5/0.5mg 3 Ml Ampul.Neb) 3 ml INHALE Q4H PRN PRN Reason: Shortness of Breath/Wheezing Last Admin: 05/11/25 11:16 Dose: 3 ml Documented By: ALBARO Amlodipine Besylate (Amlodipine Besylate 5 Mg Tablet) 5 mg PO DAILY [facility]; Protocol Last Admin: 05/11/25 09:11 Dose: 5 mg Documented By: KATE Atorvastatin Calcium (Atorvastatin Calcium 40 Mg Tablet) 40 mg PO BEDTIME [facility] Last Admin: 05/10/25 21:55 Dose: 40 mg Documented By: CINTHIA-JOZEB Benzonatate (Benzonatate 100 Mg Capsule) 100 mg PO TID PRN PRN Reason: Cough Bisacodyl (Bisacodyl 10 Mg Supp.Rect) 10 mg CO DAILY PRN PRN Reason: Constipation Calcium Carbonate (Calcium Carbonate 750 Mg Tab.Chew) 750 mg PO Q4H PRN PRN Reason: Heartburn Dextrose (Dextrose 50 % 25 Gm/50 Ml Syringe) 25 gm IVPUSH Q15M PRN; Protocol PRN Reason: per Hypoglycemia Standing Ord. Empagliflozin (Empagliflozin 10 Mg Tablet) 10 mg PO DAILY [facility] Last Admin: 05/11/25 09:12 Dose: 10 mg Documented By: KATE Ferrous Sulfate (Ferrous Sulfate 324 Mg Tablet.Dr) 324 mg PO DAILY [facility] Last Admin: 05/11/25 09:11 Dose: 324 mg Documented By: KATE Furosemide (Furosemide 40 Mg Tablet) 40 mg PO BID@0900,1800 [facility]; Protocol Last Admin: 05/11/25 09:11 Dose: 40 mg Documented By: KATE Gemfibrozil (Gemfibrozil 600 Mg Tablet) 600 mg PO BID [facility] Last Admin: 05/11/25 09:10 Dose: 600 mg Documented By: KATE Glucose (Glucose Gel 15 Gm Gel..Gram.) 15 gm PO Q15M PRN; Protocol PRN Reason: per Hypoglycemia Standing Ord. Insulin Glargine (Insulin Glargine,Hum.Rec.Anlog 100 Unit/Ml 10 Ml Vial) 17 unit SUBCUT DAILY@1900 [facility] Last Admin: 05/10/25 21:55 Dose: 17 unit Documented By: RACHEL Insulin Human Lispro (Insulin Lispro 100 Unit/Ml 3 Ml Vial) 0 unit SUBCUT QIDACHS [facility]; Protocol Last Admin: 05/11/25 09:09 Dose: 2 unit Documented By: KATE Levofloxacin (Levofloxacin 750 Mg Tablet) 750 mg PO Q48H [facility] Last Admin: 05/11/25 09:10 Dose: 750 mg Documented By: KATE Levothyroxine Sodium (Levothyroxine Sodium 200 Mcg Tablet) 200 mcg PO DAILY@0600 [facility] Last Admin: 05/11/25 04:52 Dose: 200 mcg Documented By: RACHEL Lorazepam (Lorazepam 1 Mg Tablet) 1 mg PO Q6H PRN PRN Reason: Anxiety Lorazepam (Lorazepam 0.5 Mg Tablet) 0.5 mg PO BID [facility] Last Admin: 05/11/25 09:12 Dose: 0.5 mg Documented By: KATE Magnesium Hydroxide (Milk Of Magnesia 30 Ml Oral.Susp) 30 ml PO DAILY PRN PRN Reason: Constipation Melatonin (Melatonin 3 Mg Tablet) 6 mg PO BEDTIME PRN PRN Reason: Insomnia Last Admin: 05/10/25 22:00 Dose: 6 mg Documented By: RACHEL Methylprednisolone Sodium Succinate (Methylprednisolone Sod Succ 40 Mg/Ml Vial) 40 mg IVPUSH Q12H [facility] Last Admin: 05/11/25 04:52 Dose: 40 mg Documented By: RACHEL Morphine Sulfate (Morphine Sulfate 4 Mg/Ml Cartridge) 2 mg IVPUSH Q4H PRN; Protocol PRN Reason: Pain, Severe (Pain Scale 7-10) Last Admin: 05/11/25 09:25 Dose: 2 mg Documented By: KATE Ondansetron HCl (Ondansetron Hcl 4 Mg/2 Ml Vial) 4 mg IVPUSH Q8H PRN PRN Reason: Nausea and Vomiting Oxycodone HCl (Oxycodone Hcl Immed Release 5 Mg Tablet) 5 mg PO Q6H PRN PRN Reason: Pain, Moderate(Pain Scale 4-6) Last Admin: 05/10/25 06:06 Dose: 5 mg Documented By: ANATOLIY Sertraline HCl (Sertraline Hcl 25 Mg Tablet) 75 mg PO DAILY [facility] Last Admin: 05/11/25 09:11 Dose: 75 mg Documented By: KATE Sodium Bicarbonate (Sodium Bicarbonate 650 Mg Tablet) 650 mg PO DAILY [facility] Last Admin: 05/11/25 09:10 Dose: 650 mg Documented By: KATE Sodium Biphosphate/Sodium Phosphate (Sodium Phosphate,[place]-Dibasic 133 Ml Enema) 118 ml CO DAILY PRN PRN Reason: Constipation Sodium Chloride (0.9 % Sodium Chloride Flush 3 Ml Syringe) 3 ml IVFLUSH QSHIFT [facility] Last Admin: 05/11/25 09:12 Dose: 3 ml Documented By: KATE Sodium Zirconium Cyclosilicate (Sodium Zirconium Cyclosilicate 10 Gm Powd.Pack) 10 gm PO DAILY [facility] Last Admin: 05/11/25 09:10 Dose: 10 gm Documented By: KATE Labs 05/11/25 06:06 05/11/25 06:06 Labs: Laboratory Results - last 24 hr 05/10/25 05/10/25 05/10/25 12:21 17:39 20:04 MCV MCH MCHC RDW Plt Count MPV Absolute Nucleated RBC Nucleated RBC % (auto) Absolute Retic Percent Retic Immature Retic Fraction Retic Hgb Equivalent Anion Gap Estim Creat Clear Calc Estimated GFR POC Glucose 170 H 193 H 271 H Random Glucose Calcium Magnesium Iron TIBC % Saturation Unsat Iron Binding Ferritin Lactate Dehydrogenase Procalcitonin Blood Type Antibody Screen 05/11/25 05/11/25 05/11/25 06:06 07:43 11:10 MCV 92.1 MCH 27.5 MCHC 29.9 L RDW 16.3 H Plt Count 190 MPV 9.8 Absolute Nucleated RBC 0.000 Nucleated RBC % (auto) 0.0 Absolute Retic 0.064 Percent Retic 2.4 H Immature Retic Fraction 19.3 H Retic Hgb Equivalent 29.3 L Anion Gap 15 Estim Creat Clear Calc 34.3 Estimated GFR 31 POC Glucose 197 H 203 H Random Glucose 208 H Calcium 7.3 L Magnesium 2.0 Iron 42 TIBC 185 L % Saturation 23 Unsat Iron Binding 143 Ferritin 87 Lactate Dehydrogenase 205 Procalcitonin 0.35 Blood Type O Positive Antibody Screen NEGATIVE Assessment and Plan (1) Elevated troponin: Status: Acute Assessment and Plan: d2 for 79yo F with chronic hypoxia on 2L O2 for COPD, TEZ, diastolic HF, CKD4, DM2, HTN, hypothyroidism, and chronic pressure ulcers; recent admission to ICU requiring mechanical ventilation for MRSA + Pseudomonas PNA/CHF, just discharged 05/09 but then developed chest paind and anxiety; had slightly higher troponin and so admitted for concern of NSTEMI. elevated troponin - suspect demand from lung issues per Cardiology; d/c'ed heparin drip; TTE 05/10/25: - The left ventricular systolic function is normal. The calculated ejection fraction is 70% by biplane method. - There is severe mitral annular calcification. - There is mild to moderate tricuspid valve regurgitation. - Moderate pulmonary hypertension is present. COPD with likely exacerbation - was discharged on 4 days of prednisone but started higher dose of IV methylprednisolone given active wheezing recent PNA - completed doxycycline, continue levofloxacin for both PNA and COPD hypoK hypoMg - repleted normocytic anemia - suspect due to CKD + recent acute illness; monitor; transfuse if Hb 7 or less chronic hypoxia - continue O2, on 2L at home TEZ - CPAP at bedtime CKD4 - SCr at baseline, monitor - continue bicarbonate + Lokelma chronic HFpEF - continue furosemide HTN - amlodipine hypothyroidism - continue LT4 mood disorder - continue sertraline + lorazepam DM2 - basal-bolus insulin, empagliflozin sacral ulcer - Wound Care consultation HLD - statin VTE ppx - UFH dispo - eventual return to STR; PT re-eval as pt requests different STR In my clinical judgment, the patient requires continued inpatient hospitalization for the following reasons: COPD treatment Total time managing care of this patient today: 35 minutes. Quality Stroke Does the patient have a stroke diagnosis?: No VTE Prior VTE?: No VTE Risk Level:: Medical - moderate - high VTE Device Contraindication: Treatment Not Indicated VTE Drug Contraindication: N/A - Med Ordered
--- NOTE | 2025-05-11 14:41 | PC.NURSE ---
Patient reported severe pain per pain scale; PRN morphine given with positive affect. Patient reported anxiety; PRN ativan given with posititve affect. Moyer catheter removed per provider; purewick in place.
--- NOTE | 2025-05-11 15:41 | HO.WOUND ---
Wound Consult: Initial 79yr old?[place] [facility] [place] See progress notes and H&P for detailed history.? Wound consult placed for Bilateral Lower Legs and sacrum.? Patient in ICU at this time. ? Last Admission photo from 04/04/25 04/26/25 Sacrum / coccyx and Bilateral Ischium Etiology: ??Chronic MASD - IAD Present on Admission Wound Bed: dark maroon light purple intact tissue blanchable at this time with some scattered areas of partial thickness tissue loss dried and scabbed Drainage / Odor: scant dark red Edges: ? irregular Goals of Treatment: ? Off load pressure and protect from friction moisture and pressure Of note the sacrum coccyx has previously noted stage 3 pressure injury per chart review it is important to know Tensil strength is only 80% after full thickness tissue damage (Stage 3 PI). This puts the patient at risk for reopening pressure injury - all preventative measures should be employed to prevent reopening of Pressure injury. Bilateral Lower Legs Etiology: ?Venous Dermatitis Wound Bed: thick scaling tissue - no open wounds noted Goals of Treatment: ? Provider to consider Lachydrin to soften and allow tissue to gently debride Bilateral heels assessed for intact blanchable redness - no pressure injury noted at this time - recommend prevention measure such as foam application and off loading pressure from heels. Recommendations: 1. Turn and Reposition every 2 hours and as needed for patient comfort.? Use pillows or wedges to support off loading positions. 2. Off Load all bony prominences with use of pillows and heel boots if needed.? Apply Preventative foams where needed. ? 3. Monitor for incontinence and moisture control, use barrier creams when needed for prevention and treatment. 4. Provide adequate and supplemental nutrition.? 5. Order low air loss mattress. 6. When applicable maintain blood glucose levels per Providers order. Sacrum / Coccyx - Off Load Pressure with Q2 hr turns and use of pillows - Cleanse with PH balance spray or wipes, pat dry. ?Apply thin layer of Triad to wound bed - only pat and dab no scrub and rub when soiling occurs. Reapply thin layer PRN after each episode of incontinence. If patient is continent or purewick is working well may consider foam dressing in place of barrier cream. Bilateral Ischium - Off Load Pressure with Q2 hr turns and use of pillows - Cleanse with PH balance spray or wipes, pat dry. ?Apply thin layer of barrier cream to affected area.? Apply twice daily and Reapply thin layer PRN after each episode of incontinence. Bilateral Lower Legs - Elevate lower legs off of surface of bed with use of pillows - float heels? Cleanse with PH balanced wipes, Pat dry.? Apply Ammonium Lactate to both legs daily. Bilateral Heels? - Elevate heels off of bed surface with pillows.? Float heels off of pillows.? Apply skin prep allow to dry.? Apply heel foam dressings, peel back and assess Q shift and change every 5-7 days and PRN. Re-consult wound care Nurse for wound deterioration or wound changes.
[2025-05-11 16:31] LABS: Glucose, Whole Blood 123 mg/dL (60-115)
--- NOTE | 2025-05-11 16:34 | MHC.SLORD ---
Speech Language Pathology Order Status: Pt sleeping soundly upon EVALUATION ENGINEER visit. Per RN, no concerns w/ pt's toleration of ground solids or thin liquids. Pt expressed preference for pills crushed in puree. EVALUATION ENGINEER to f/u tomorrow.
[2025-05-11] MEDS: Insulin Glargine,Hum.rec.anlog 100 UNIT/ML 10 ML VIAL 17 UNIT SUBCUT (17:46)
[2025-05-11 20:35] LABS: Glucose, Whole Blood 138 mg/dL (60-115)
[2025-05-12] VITALS (12 sets, daily range): BP systolic 120–152; BP diastolic 57–72; PULSE 62–82; RESP 14–20; TEMP 36.4–36.8; O2SAT 91–99
[2025-05-12] MEDS: Albuterol/Iprat 2.5/0.5MG 3 ML AMPUL.NEB INHALE ×5 (02:10→20:23)
[2025-05-12 07:42] LABS: Glucose, Whole Blood 124 mg/dL (60-115)
[2025-05-12] MEDS: 0.9 % Sodium Chloride Flush 3 ML SYRINGE IVFLUSH ×3 (07:56→21:38)
[2025-05-12 08:51] LABS: Hematocrit 27.8 % (37.0-47.0); Hemoglobin 8.2 g/dl (12.0-16.0); Mean Corpuscular HGB Conc 29.5 g/dl (31.0-35.0); Mean Corpuscular Hemoglobin 28.1 pg (27.0-33.0); Mean Corpuscular Volume 95.2 fL (80.0-98.0); NRBC Abs Auto 0.000 X10*3/uL (0.0-0.012); NRBC Pct Auto 0.0 /100WBC (0.0-0.2); Platelet Count 184 X10*3/uL (160-400); Red Blood Count 2.92 X10*6/uL (4.20-5.50); White Blood Count 5.5 X10*3/uL (4.8-10.8)
[2025-05-12 08:55] LABS: VBG HCO3 46 mmol/L (22-26)
[2025-05-12 08:57] LABS: Venous Blood Gas Refer to POC result
[2025-05-12] MEDS: Ferrous Sulfate 324 MG TABLET.DR PO (09:04)
[2025-05-12 09:08] LABS: Anion Gap 20 (12-20); Blood Urea Nitrogen 74 mg/dL (9-16); Calcium 7.9 mg/dL (8.4-10.2); Carbon Dioxide 35 mmol/L (22-29); Chloride 96 mmol/L (96-108); Creatinine Clr Calc Pharmacy 33.9; Estimated Glomerular Filt Rate 31; Potassium 4.7 mmol/L (3.3-5.1); Sodium 146 mmol/L (135-145)
[2025-05-12 09:45] LABS: Folate 5.3 ng/mL (> or = 4.0); Vitamin B12 383 pg/mL (200-900)
--- NOTE | 2025-05-12 10:19 | P.PNIM_ITS ---
Subjective Subjective Date of Service: 05/12/25 Interval History: no chest pain; c/o dyspnea + wheeze Review of Systems Review of Systems: Yes all other systems are reviewed and are negative Physical Exam 2 Exam: Exam: Gen: in no acute distress HEENT: sclera anicteric, moist mucus membranes Neck: supple Lungs: diminished, soft expiratory wheezing Heart: regular rate and rhythm, no murmurs Abd: soft, non-tender, non-distended Ext: no edema Skin: warm/well-perfused Neuro: alert and oriented x3, no focal findings Psych: appropriate affect Vital Signs: Vital Signs: Last Vital Signs Temp 97.9 F 05/12/25 07:56 Pulse 70 05/12/25 08:27 Resp 14 05/12/25 08:27 BP 148/65 H 05/12/25 09:05 Pulse Ox 99 05/12/25 07:56 O2 Del Method Oxymask 05/12/25 07:56 O2 Flow Rate 2 05/12/25 07:56 Oxygen Flow Rate 4 05/10/25 00:21 BMI result Body Mass Index 36.8 Objective Data Active Medications Acetaminophen (Acetaminophen 325 Mg Tablet) 975 mg PO Q6H PRN PRN Reason: Pain, Mild 1-3,fever,headache Albuterol/Ipratropium (Albuterol/Iprat 2.5/0.5mg 3 Ml Ampul.Neb) 3 ml INHALE Q4H PRN PRN Reason: Shortness of Breath/Wheezing Last Admin: 05/12/25 08:24 Dose: 3 ml Documented By: RAHEL Amlodipine Besylate (Amlodipine Besylate 5 Mg Tablet) 5 mg PO DAILY [facility]; Protocol Last Admin: 05/12/25 09:05 Dose: 5 mg Documented By: ALVERTO Atorvastatin Calcium (Atorvastatin Calcium 40 Mg Tablet) 40 mg PO BEDTIME GEO Last Admin: 05/11/25 20:36 Dose: 40 mg Documented By: RAFA Benzonatate (Benzonatate 100 Mg Capsule) 100 mg PO TID PRN PRN Reason: Cough Bisacodyl (Bisacodyl 10 Mg Supp.Rect) 10 mg IN DAILY PRN PRN Reason: Constipation Calcium Carbonate (Calcium Carbonate 750 Mg Tab.Chew) 750 mg PO Q4H PRN PRN Reason: Heartburn Dextrose (Dextrose 50 % 25 Gm/50 Ml Syringe) 25 gm IVPUSH Q15M PRN; Protocol PRN Reason: per Hypoglycemia Standing Ord. Empagliflozin (Empagliflozin 10 Mg Tablet) 10 mg PO DAILY [facility] Last Admin: 05/12/25 09:04 Dose: 10 mg Documented By: ALVERTO Ferrous Sulfate (Ferrous Sulfate 324 Mg Tablet.) 324 mg PO DAILY [facility] Last Admin: 05/12/25 09:04 Dose: 324 mg Documented By: ALVERTO Furosemide (Furosemide 40 Mg Tablet) 40 mg PO BID@0900,1800 [facility]; Protocol Last Admin: 05/12/25 09:05 Dose: 40 mg Documented By: ALVERTO Gemfibrozil (Gemfibrozil 600 Mg Tablet) 600 mg PO BID [facility] Last Admin: 05/12/25 09:04 Dose: 600 mg Documented By: ALVERTO Glucose (Glucose Gel 15 Gm Gel..Gram.) 15 gm PO Q15M PRN; Protocol PRN Reason: per Hypoglycemia Standing Ord. Insulin Glargine (Insulin Glargine,Hum.Rec.Anlog 100 Unit/Ml 10 Ml Vial) 17 unit SUBCUT DAILY@1900 [facility] Last Admin: 05/11/25 17:46 Dose: 17 unit Documented By: KATE Insulin Human Lispro (Insulin Lispro 100 Unit/Ml 3 Ml Vial) 0 unit SUBCUT QIDACHS [facility]; Protocol Last Admin: 05/12/25 07:49 Dose: Not Given Documented By: ALVERTO Non-Admin Reason: No Insulin Coverage Levofloxacin (Levofloxacin 750 Mg Tablet) 750 mg PO Q48H [facility] Last Admin: 05/11/25 09:10 Dose: 750 mg Documented By: KATE Levothyroxine Sodium (Levothyroxine Sodium 200 Mcg Tablet) 200 mcg PO DAILY@0600 [facility] Last Admin: 05/12/25 05:58 Dose: 200 mcg Documented By: RAFA Lorazepam (Lorazepam 1 Mg Tablet) 1 mg PO Q6H PRN PRN Reason: Anxiety Last Admin: 05/11/25 13:57 Dose: 1 mg Documented By: KATE Lorazepam (Lorazepam 0.5 Mg Tablet) 0.5 mg PO BID [facility] Last Admin: 05/11/25 20:36 Dose: 0.5 mg Documented By: RAFA Magnesium Hydroxide (Milk Of Magnesia 30 Ml Oral.Susp) 30 ml PO DAILY PRN PRN Reason: Constipation Melatonin (Melatonin 3 Mg Tablet) 6 mg PO BEDTIME PRN PRN Reason: Insomnia Last Admin: 05/11/25 20:36 Dose: 6 mg Documented By: RAFA Methylprednisolone Sodium Succinate (Methylprednisolone Sod Succ 40 Mg/Ml Vial) 40 mg IVPUSH Q12H [facility] Last Admin: 05/12/25 05:58 Dose: 40 mg Documented By: RAFA Morphine Sulfate (Morphine Sulfate 4 Mg/Ml Cartridge) 1 mg IVPUSH Q4H PRN; Protocol PRN Reason: Pain, Severe (Pain Scale 7-10) Ondansetron HCl (Ondansetron Hcl 4 Mg/2 Ml Vial) 4 mg IVPUSH Q8H PRN PRN Reason: Nausea and Vomiting Oxycodone HCl (Oxycodone Hcl Immed Release 5 Mg Tablet) 5 mg PO Q6H PRN PRN Reason: Pain, Moderate(Pain Scale 4-6) Last Admin: 05/10/25 06:06 Dose: 5 mg Documented By: ANATOLIY Sertraline HCl (Sertraline Hcl 25 Mg Tablet) 75 mg PO DAILY [facility] Last Admin: 05/12/25 09:04 Dose: 75 mg Documented By: ALVERTO Sodium Bicarbonate (Sodium Bicarbonate 650 Mg Tablet) 650 mg PO DAILY [facility] Last Admin: 05/12/25 09:04 Dose: 650 mg Documented By: ALVERTO Sodium Biphosphate/Sodium Phosphate (Sodium Phosphate,[place]ingham-Dibasic 133 Ml Enema) 118 ml IN DAILY PRN PRN Reason: Constipation Sodium Chloride (0.9 % Sodium Chloride Flush 3 Ml Syringe) 3 ml IVFLUSH QSHIFT [facility] Last Admin: 05/12/25 07:56 Dose: 3 ml Documented By: ALVERTO Sodium Zirconium Cyclosilicate (Sodium Zirconium Cyclosilicate 10 Gm Powd.Pack) 10 gm PO DAILY [facility] Last Admin: 05/12/25 09:05 Dose: 10 gm Documented By: ALVERTO Labs 05/12/25 08:40 05/12/25 08:40 Labs: Laboratory Results - last 24 hr 05/11/25 05/11/25 05/11/25 11:10 16:25 20:29 MCV MCH MCHC RDW Plt Count MPV Absolute Nucleated RBC Nucleated RBC % (auto) VBG pH VBG pCO2 VBG pO2 VBG HCO3 VBG O2 Saturation VBG Base Excess Anion Gap Estim Creat Clear Calc Estimated GFR POC Glucose 203 H 123 H 138 H Random Glucose Calcium Vitamin B12 Folate 05/12/25 05/12/25 05/12/25 07:19 08:40 08:48 MCV 95.2 MCH 28.1 MCHC 29.5 L RDW 16.1 H Plt Count 184 MPV 9.4 Absolute Nucleated RBC 0.000 Nucleated RBC % (auto) 0.0 VBG pH 7.49 H VBG pCO2 60 VBG pO2 191 VBG HCO3 46 H VBG O2 Saturation TNP VBG Base Excess 20.5 Anion Gap 20 Estim Creat Clear Calc 33.9 Estimated GFR 31 POC Glucose 124 H Random Glucose 136 H Calcium 7.9 L D Vitamin B12 383 Folate 5.3 Assessment and Plan (1) Elevated troponin: Status: Acute Assessment and Plan: d3 for 79yo F with chronic hypoxia on 2L O2 for COPD, TEZ, diastolic HF, CKD4, DM2, HTN, hypothyroidism, and chronic pressure ulcers; recent admission to ICU requiring mechanical ventilation for MRSA + Pseudomonas PNA/CHF, just discharged 05/09 but then developed chest paind and anxiety; had slightly higher troponin and so admitted for concern of NSTEMI elevated troponin - suspect demand from lung issues per Cardiology; d/c'ed heparin drip; TTE 05/10/25: - The left ventricular systolic function is normal. The calculated ejection fraction is 70% by biplane method. - There is severe mitral annular calcification. - There is mild to moderate tricuspid valve regurgitation. - Moderate pulmonary hypertension is present. COPD with likely exacerbation - was discharged on 4 days of prednisone but started higher dose of IV methylprednisolone given active wheezing- will start tapering; continue nebs recent PNA - completed doxycycline, continue levofloxacin 05/10- for both PNA and COPD hypoK hypoMg - repleted normocytic anemia - suspect due to CKD + recent acute illness; monitor; transfuse if Hb 7 or less; improved today chronic hypoxia with hypercarbia - continue O2, on 2L at home; goal SaO2 no greater than 92% given CO2 retention TEZ - CPAP at bedtime CKD4 - SCr at baseline, monitor - continue bicarbonate + Lokelma chronic HFpEF - continue furosemide HTN - amlodipine hypothyroidism - continue LT4 mood disorder - continue sertraline + lorazepam DM2 - basal-bolus insulin, empagliflozin sacral ulcer - Wound Care consulted: Sacrum / coccyx and Bilateral Ischium Etiology: ??Chronic MASD - IAD Present on Admission Wound Bed: dark maroon light purple intact tissue blanchable at this time with some scattered areas of partial thickness tissue loss dried and scabbed Drainage / Odor: scant dark red Edges: ? irregular Goals of Treatment: ? Off load pressure and protect from friction moisture and pressure Of note the sacrum coccyx has previously noted stage 3 pressure injury per chart review it is important to know Tensil strength is only 80% after full thickness tissue damage (Stage 3 PI). This puts the patient at risk for reopening pressure injury - all preventative measures should be employed to prevent reopening of Pressure injury. Bilateral Lower Legs Etiology: ?Venous Dermatitis Wound Bed: thick scaling tissue - no open wounds noted Goals of Treatment: ? Provider to consider Lachydrin to soften and allow tissue to gently debride Sacrum / Coccyx - Off Load Pressure with Q2 hr turns and use of pillows - Cleanse with PH balance spray or wipes, pat dry. ?Apply thin layer of Triad to wound bed - only pat and dab no scrub and rub when soiling occurs. Reapply thin layer PRN after each episode of incontinence. If patient is continent or purewick is working well may consider foam dressing in place of barrier cream. Bilateral Ischium - Off Load Pressure with Q2 hr turns and use of pillows - Cleanse with PH balance spray or wipes, pat dry. ?Apply thin layer of barrier cream to affected area.? Apply twice daily and Reapply thin layer PRN after each episode of incontinence. Bilateral Lower Legs - Elevate lower legs off of surface of bed with use of pillows - float heels? Cleanse with PH balanced wipes, Pat dry.? Apply Ammonium Lactate to both legs daily. Bilateral Heels? - Elevate heels off of bed surface with pillows.? Float heels off of pillows.? Apply skin prep allow to dry.? Apply heel foam dressings, peel back and assess Q shift and change every 5-7 days and PRN. HLD - statin VTE ppx - enoxaparin dispo - eventual return to STR; PT re-eval as pt requests different STR In my clinical judgment, the patient requires continued inpatient hospitalization for the following reasons: COPD treatment Total time managing care of this patient today: 35 minutes. Quality Stroke Does the patient have a stroke diagnosis?: No VTE Prior VTE?: No VTE Risk Level:: Medical - moderate - high VTE Device Contraindication: Treatment Not Indicated VTE Drug Contraindication: N/A - Med Ordered
--- NOTE | 2025-05-12 10:26 | MHC.CM.PN ---
Per ROUNDS discussion, Patient is not yet medically cleared for dc (IV Solu Medrol);STR is the goal and Patient has facilities following.
[2025-05-12 11:47] LABS: Glucose, Whole Blood 214 mg/dL (60-115)
--- NOTE | 2025-05-12 12:45 | MHC.SPEECHCO ---
LINUX DEVELOPER arrived to assist patient with lunch. Patient declined, requesting nursing assistance in getting changed, at which point RN arrived. LINUX DEVELOPER to re-attempt later this p.m. as schedule allows.
[2025-05-12 16:10] LABS: Glucose, Whole Blood 218 mg/dL (60-115)
--- NOTE | 2025-05-12 17:41 | MHC.SL.SWA ---
Speech Pathologist Impression: Risk of Aspiration, Oropharyngeal Dysphagia Dysphasia Diet Status: No Change Liquid Consistency and Strategies for Safe Swallow: Liquid Intake Recommendation: Thin Liquid Intake Strategies: Small Sips Solid Food Consistency: Dietary Recommendations: Grnd/Mech Altered (NDD2) Oral Medication Intake: Crushed with Puree Please contact the pharmacy regarding appropriate crushable or liquid drug formulations that are available whenever modified delivery is recommended. Compensatory Strategies and Precautions to be Taken for Safe Swallow: Sitting Upright (90 deg) Double Swallow Small Bites and Sips Alternate Liquids/Solids Rate of Ingestion Change Supervision While Eating and Drinking for Safe Swallow: Intermittent Supervision Foods to Avoid: Tough, difficult to chew solids Swallowing Recommended Treatments: Compens. Strategy Educat. Recommendation for Speech: Inpatient Speech Therapy Comment: Frequency/Duration: Daily M-F Date Range for Service Req: Timeline to reassess: Car Rental Manager Clinican/Clinical Fellow: No Supervisory Statement: I have reviewed and agree with the student/clinical fellow's documentation: N/A Speech Language Pathologist: Rama Padilla M.A., CCC-GLASS CUT OFF TENDER
[2025-05-12] MEDS: Insulin Glargine,Hum.rec.anlog 100 UNIT/ML 10 ML VIAL 17 UNIT SUBCUT (18:00)
[2025-05-12 20:26] LABS: Glucose, Whole Blood 212 mg/dL (60-115)
[2025-05-13 01:03] VITALS: PULSE 71; RESP 18; O2SAT 92
[2025-05-13] MEDS: Albuterol/Iprat 2.5/0.5MG 3 ML AMPUL.NEB INHALE ×3 (01:04→11:09)
[2025-05-13 03:15] VITALS: BP 138/62; PULSE 92; RESP 18; TEMP 36.5; O2SAT 92
[2025-05-13 06:27] LABS: Hematocrit 26.0 % (37.0-47.0); Hemoglobin 7.8 g/dl (12.0-16.0); Mean Corpuscular HGB Conc 30.0 g/dl (31.0-35.0); Mean Corpuscular Hemoglobin 28.3 pg (27.0-33.0); Mean Corpuscular Volume 94.2 fL (80.0-98.0); NRBC Abs Auto 0.000 X10*3/uL (0.0-0.012); NRBC Pct Auto 0.0 /100WBC (0.0-0.2); Platelet Count 208 X10*3/uL (160-400); Red Blood Count 2.76 X10*6/uL (4.20-5.50); White Blood Count 6.5 X10*3/uL (4.8-10.8)
[2025-05-13 06:40] LABS: Anion Gap 16 (12-20); Blood Urea Nitrogen 75 mg/dL (9-16); Calcium 7.7 mg/dL (8.4-10.2); Carbon Dioxide 39 mmol/L (22-29); Chloride 94 mmol/L (96-108); Creatinine Clr Calc Pharmacy 34.3; Estimated Glomerular Filt Rate 31; Potassium 4.2 mmol/L (3.3-5.1); Sodium 145 mmol/L (135-145)
[2025-05-13 07:33] LABS: Glucose, Whole Blood 66 mg/dL (60-115)
[2025-05-13 07:41] VITALS: PULSE 58; RESP 20; O2SAT 100
[2025-05-13 08:00] VITALS: BP 169/77; PULSE 70; RESP 18; TEMP 37.1; O2SAT 99
[2025-05-13] MEDS: Ferrous Sulfate 324 MG TABLET.DR PO (08:21)
[2025-05-13] MEDS: 0.9 % Sodium Chloride Flush 3 ML SYRINGE IVFLUSH (08:22)
[2025-05-13 08:37] LABS: Glucose, Whole Blood 113 mg/dL (60-115)
[2025-05-13] MEDS: oxyCODONE HCl Immed Release 5 MG TABLET PO (08:41)
--- NOTE | 2025-05-13 09:18 | MHC.CM.PN ---
Addendum entered by Radha Roberts 05/13/25 10:25: Per pts request, this pt called to update her son/HCP Robbie on the discharge plan. Addendum entered by Radha Roberts 05/13/25 10:08: Bed offer received from [facility] [place], pt will transport there via BLS/[place], pt is in agreement with discharge plan. Original Note: Second IMM given 05/13. Pt is medically cleared for discharge to [facility]. This CM met with pt to discuss rehab options, she states she doesn't want to return to [facility] or [facility], and thet [facility] [place] is her first choice. This CM placed referral to [facility], awaiting bed offer.
[2025-05-13 11:11] VITALS: PULSE 76; RESP 20; O2SAT 98
[2025-05-13 12:00] VITALS: BP 158/70; PULSE 76; RESP 18; TEMP 36.3; O2SAT 97
--- NOTE | 2025-05-13 12:04 | P.DS_ITS ---
DS: Providers Provider Date of Service: 05/13/25 Date of admission: 05/10/25 04:08 Date of discharge: 05/13/25 Primary care physician: Neida Soto MD Consults: 05/10/25 05:43 Consult to Cardiology Routine Consulting Provider: Win Hewitt Reason for consultation: NSTEMI Has provider been notified: Yes Consult to Wound Care Routine Reason for consultation: chronic leg wounds/pressure ulcer sacrum/coccyx DS: Diagnosis Discharge Diagnosis (1) Elevated troponin: Status: Acute (2) COPD exacerbation: Status: Acute (3) Atypical chest pain: Status: Acute (4) Pneumonia: Status: Resolved (5) Hypokalemia: Status: Acute (6) Hypomagnesemia: Status: Acute (7) Chronic kidney disease (CKD), stage 4: Status: Acute (8) Normocytic anemia: Status: Acute (9) Chronic respiratory failure with hypoxia and hypercapnia: Status: Acute DS: Summary Hospital Course Hospital Course: From the history and physical by the admitting hospitalist, АНДРЕЙ Mccray, 05/10/25: Pt is a 79 yo f with a PMHx significant for chronic hypoxic respiratory failure on 2 L home O2 due to COPD, morbid obesity with obstructive sleep apnea noncompliant with CPAP, chronic diastolic CHF, CKD 4, diabetes, hypertension, hyperlipidemia, hypothyroid, chronic indwelling francisco, and chronic leg wounds/pressure ulcer of the sacrum/coccyx, who presented to the ED from SNF for chest pain. the pt was just discharged yesterday for acute on chronic respiratory failure secondary to COPD and diastolic CHF exacerbations, admitted to ICU with pneumonia (sputum culture growing MRSA and Pseudomonas) extubated and transferred to the medical floor on 04/29, back to ICU on 05/05 she was treated for fluid overload and transferred back to the floor and 05/06. she describes currently 7/10 chest pain, previously /, in the substrenal area with associated anxiety. no worsening pain with palpation or cough. reported previously diaphoretic but no nausea, vomiting, SOB, near-syncope or syncope. 79yo F with chronic hypoxia on 2L O2 for COPD, TEZ, diastolic HF, CKD4, DM2, HTN, hypothyroidism, and chronic pressure ulcers; recent admission to ICU 04/25/25 requiring mechanical ventilation for MRSA + Pseudomonas PNA/CHF, just discharged 05/09/25 but then developed chest pain and anxiety; had slightly higher troponin and so admitted to the telemetry unit for concern of NSTEMI. Hospital course by problem: elevated troponin atypical chest pain - suspect demand from lung issues per Cardiology; d/c'ed heparin drip that had been started in ED; TTE 05/10/25: - The left ventricular systolic function is normal. The calculated ejection fraction is 70% by biplane method. - There is severe mitral annular calcification. - There is mild to moderate tricuspid valve regurgitation. - Moderate pulmonary hypertension is present. Chest pain likely from anxiety and coughing and resolved by 1st day of hospitalization. COPD with likely exacerbation - Was discharged on 4 days of prednisone but started higher dose of IV methylprednisolone given active wheezing. Discharged on slow taper of prednisone along with 3 more days of levofloxacin. recent PNA - Completed doxycycline, continue levofloxacin 05/10-05/17 for both PNA and COPD hypoK hypoMg - repleted normocytic anemia - suspect due to CKD + recent acute illness; did not require transfusion chronic hypoxia with hypercarbia - continue O2, on 2L at home; goal SaO2 no greater than 92% given CO2 retention TEZ - CPAP at bedtime CKD4 - SCr at baseline, monitor - continue bicarbonate + Lomeaganma She was discharged to [facility] for short-term rehabilitation. Time Attestation Discharge Coordination Time (in mins): 45 Quality: Safe Use of Opioids Does Pt have an Active Cancer Diagnosis on the Problem List?: No Quality: Stroke Does the patient have a stroke diagnosis?: No Physical Exam Vital Signs: Vital Signs: Last Vital Signs Temp 98.8 F 05/13/25 08:00 Pulse 76 05/13/25 11:11 Resp 20 05/13/25 11:11 BP 169/77 H 05/13/25 08:00 Pulse Ox 99 05/13/25 08:00 O2 Del Method Oxymask 05/13/25 08:00 O2 Flow Rate 2 05/13/25 08:00 Oxygen Flow Rate 4 05/10/25 00:21 BMI result Body Mass Index 36.8 DS: Data Data Completed and Pending Completed studies during hospitalization [Text1]: Procedures Assistance with Respiratory Ventilation, Less than 24 Consecutive Hours, C ontinuous Positive Airway Pressure (04/03/25) Drainage of Left Pleural Cavity, Percutaneous Approach (08/03/24) Insertion of Infusion Device into Superior Vena Cava, Percutaneous Approach (11/10/21) Performance of Urinary Filtration, Intermittent, Less than 6 Hours Per Day (11/10/21) Transfusion of Nonautologous Red Blood Cells into Peripheral Vein, Percutaneous Approach (04/03/25) Labs on day of discharge: Laboratory Results - last 24 hr 05/12/25 05/12/25 05/13/25 16:01 20:17 05:45 WBC 6.5 RBC 2.76 L Hgb 7.8 L Hct 26.0 L MCV 94.2 MCH 28.3 MCHC 30.0 L RDW 16.5 H Plt Count 208 MPV 9.6 Absolute Nucleated RBC 0.000 Nucleated RBC % (auto) 0.0 Sodium 145 Potassium 4.2 Chloride 94 L Carbon Dioxide 39 H Anion Gap 16 BUN 75 H Creatinine 1.61 H Estim Creat Clear Calc 34.3 Estimated GFR 31 POC Glucose 218 H 212 H Random Glucose 60 Calcium 7.7 L 05/13/25 05/13/25 07:15 08:34 WBC RBC Hgb Hct MCV MCH MCHC RDW Plt Count MPV Absolute Nucleated RBC Nucleated RBC % (auto) Sodium Potassium Chloride Carbon Dioxide Anion Gap BUN Creatinine Estim Creat Clear Calc Estimated GFR POC Glucose 66 113 Random Glucose Calcium Discharge Plan Discharge Anticipated Discharge Date/Time: 05/13/25 11:52 Patient Disposition: [facility] Discharge Diagnosis: COPD exacerbation atypical chest pain Referrals: [facility] [Outside] - 1 Week Neida Mirza MD [Primary Care Provider, Internal Medicine] - 1 Week Discharge Medications: New prednisone 10 mg tablet See Rx Instructions .ROUTE .COMPLEX Qty: 40 0RF Rx Instructions: 40 mg daily x 4 days, then 30 mg daily x 4 days, then 20 mg daily x 4 days, then 10 mg daily x 4 days Continued (DME) Lift chair See Rx Instructions .Route .MEDSUPPLY Qty: 1 0RF Rx Instructions: As directed (DME) compression stockings 40 mmHg knee high See Rx Instructions .Route .MEDSUPPLY Qty: 1 0RF Rx Instructions: As directed insulin glargine [Basaglar KwikPen U-100 Insulin] 100 unit/mL (3 mL) insulin pen 25 unit subcut DAILY@1900 furosemide 40 mg Tablet 40 mg PO BID@0900,1800 Qty: 1 0RF Protocol: Hold for SBP< HOLD for SBP < : 90 benzonatate 100 mg Capsule 100 mg PO TID PRN (Reason: Cough) Qty: 1 0RF ferrous sulfate 324 mg (65 mg iron) Tablet,Delayed Release (Dr/Ec) 324 mg PO DAILY Qty: 1 0RF sertraline 50 mg tablet 75 mg PO DAILY Qty: 1 0RF lorazepam [Ativan] 0.5 mg tablet 0.5 mg PO BID lorazepam [Ativan] 0.5 mg tablet 1 mg PO Q6H PRN (Reason: Anxiety) albuterol sulfate [Ventolin HFA] 90 mcg/actuation HFA aerosol inhaler 2 puff inhalation Q6H PRN (Reason: Shortness Of Breath Or Wheezing) insulin lispro [Humalog U-100 Insulin] 100 unit/mL Solution 1 sliding scale dose SUBCUT TIDAC Protocol: Insulin Correction Scale Less than or equal to 110 ---- Give (units): 0 111 to 150 Give (units): 0 151 to 200 Give (units): 0 201 to 250 Give (units): 2 251 to 300 Give (units): 4 301 to 350 Give (units): 6 Greater than 350 Give (units): 8 Call MD if Blood Glucose > : 350 acetaminophen 325 mg Tablet 650 mg PO Q4H PRN (Reason: Fever Or Pain) acetaminophen 650 mg Suppository 650 mg [place] Q4H PRN (Reason: Fever Or Pain) magnesium hydroxide [Milk of Magnesia] 400 mg/5 mL Suspension 30 ml PO DAILY PRN (Reason: Constipation) bisacodyl 10 mg Suppository 10 mg KY DAILY PRN (Reason: Constipation) Fleet Enema 19-7 gram/118 mL Enema 118 ml [place] DAILY PRN (Reason: Constipation) levofloxacin 750 mg tablet 750 mg PO DAILY Qty: 3 0RF Rx Instructions: Take tablet of levofloxacin 750 mg on 05/11 to complete course of antibiotics for Pseudomonas pneumonia. atorvastatin 40 mg tablet 40 mg PO BEDTIME 90 Days Qty: 90 3RF (DME) Accu-Chek Guide test strips Strip See Rx Instructions .Route Qty: 100 3RF Rx Instructions: Use 1 test strip once a day (DME) Accu-Chek Odilia Plus test strp Strip See Rx Instructions .Route Qty: 100 1RF Rx Instructions: Use 1 test strip once a day Jardiance 10 mg tablet 10 mg PO DAILY Qty: 90 1RF gemfibrozil 600 mg tablet 600 mg PO BID Qty: 180 1RF (DME) insulin syringe-needle U-100 0.5 mL 31 gauge x 5/16 syringe See Rx Instructions .Route Qty: 100 3RF Rx Instructions: Use 1 needle once a day (DME) lancets [Accu-Chek Softclix Lancets] Misc See Rx Instructions .Route Qty: 100 3RF Rx Instructions: Use 1 lancet once a day levothyroxine 200 mcg tablet 200 mcg PO DAILY@0600 90 Days Qty: 90 0RF (DME) pen needle, diabetic [1st Tier Unifine Pentips] 31 gauge x 5/16 needle See Rx Instructions .Route Qty: 100 4RF Rx Instructions: Use 1 pen needle once a day sodium bicarbonate 650 mg tablet 650 mg PO DAILY Qty: 90 0RF Lokelma 10 gram powder in packet 10 g PO DAILY Qty: 90 0RF amlodipine 5 mg tablet 5 mg PO DAILY Qty: 90 2RF ammonium lactate 12 % lotion 1 appl topical BID Qty: 400 3RF Discontinued prednisone 20 mg tablet 40 mg PO DAILY Qty: 10 0RF Rx Instructions: Take two tablets (40mg total) daily for the next 5 days. Discharge Orders: Discharge Order (Routine); Ordered 05/13/25 Ordered By: Cotrez Nelson Diet: Advance to usual diet Activity on Discharge: As tolerated Stand Alone Forms: Patient Portal Discharge page Print Language: Slovak Care Plan Goals: lung health Health Concerns: COPD exacerbation atypical chest pain Plan of Treatment: to short-term rehabilitation levofloxacin 750 mg daily x 3 days prednisone 10 mg tabs, taper as follows: 40 mg (4 tabs) daily x 4 days, then 30 mg (3 tabs) daily x 4 days, then 20 mg (2 tabs) daily x 4 days, then 10 mg (1 tab) daily x 4 days Please follow up with your primary care doctor within 1 week of discharge from rehabilitation. Return to the hospital if you experience recurrent or worsening symptoms. Assessment: See Discharge Summary.
[2025-05-13 12:11] LABS: Glucose, Whole Blood 102 mg/dL (60-115)
== END 2025-05-13 14:43 | disposition skilled nursing facility (03) | DRG 190 ==
LOC: HO.ED 03:55 → HO.EDOVER 04:18 → HO.IMC 17:54
PROVIDERS: Physician Assistant; Admitting Provider Student in an Organized Health Care Education/Training Program; Emergency Provider Emergency Medicine; PCP Internal Medicine; Visit Provider Family Medicine
DX: J44.1 Chronic obstructive pulmonary disease with (acute) exacerbation (principal); L89.153 Pressure ulcer of sacral region, stage 3; I13.0 Hypertensive heart and chronic kidney disease with heart failure and stage 1 through stage 4 chronic kidney disease, or unspecified chronic kidney disease; I50.32 Chronic diastolic (congestive) heart failure; N18.4 Chronic kidney disease, stage 4 (severe); E87.6 Hypokalemia; E83.42 Hypomagnesemia; D63.1 Anemia in chronic kidney disease; I27.20 Pulmonary hypertension, unspecified; E11.22 Type 2 diabetes mellitus with diabetic chronic kidney disease; Z99.81 Dependence on supplemental oxygen; Z87.891 Personal history of nicotine dependence; Z68.36 Body mass index [BMI] 36.0-36.9, adult; Z71.3 Dietary counseling and surveillance; E66.812 Obesity, class 2; E03.9 Hypothyroidism, unspecified; F39 Unspecified mood [affective] disorder; E78.5 Hyperlipidemia, unspecified; G47.33 Obstructive sleep apnea (adult) (pediatric); I08.1 Rheumatic disorders of both mitral and tricuspid valves; Z86.14 Personal history of Methicillin resistant Staphylococcus aureus infection; Z87.01 Personal history of pneumonia (recurrent); Z79.4 Long term (current) use of insulin; Z79.890 Hormone replacement therapy; Z79.899 Other long term (current) drug therapy
CPT/HCPCS: 36415; 71046; 80048; 80053; 82607; 82728; 82746; 82803; 82947; 83540; 83615; 83735; 84145; 84484; 85025; 85027; 85045; 85610; 85730; 86850; 86900; 86901; 92526; 92610; 93005; 93306; 97162; 99285; J1644; J1650; J2270; J2919; J3475; Q9957

== ENCOUNTER 2025-05-10 04:08 | Outpatient (BNV) | payer MEDICARE, MEDICAID, SELFPAY | END 2025-05-11 07:50 | PROVIDERS: Admitting Provider Student in an Organized Health Care Education/Training Program; Emergency Provider Emergency Medicine; PCP Internal Medicine; Visit Provider Radiology Diagnostic Radiology | DX: I50.9 Heart failure, unspecified (principal); J90 Pleural effusion, not elsewhere classified; I51.7 Cardiomegaly | CPT/HCPCS: 71046 ==

== ENCOUNTER → 2025-05-10 04:08 | Outpatient (BNV) | payer MEDICARE, MEDICAID, SELFPAY | PROVIDERS: Admitting Provider Student in an Organized Health Care Education/Training Program; Emergency Provider Emergency Medicine; PCP Family Medicine; Visit Provider Physician Assistant | DX: R79.89 Other specified abnormal findings of blood chemistry (principal) | CPT/HCPCS: 99223; 99232; 99239; 99499 ==

== ENCOUNTER → 2025-05-10 04:08 | Outpatient (BNV) | payer MEDICARE, MEDICAID, SELFPAY | PROVIDERS: Admitting Provider Student in an Organized Health Care Education/Training Program; Emergency Provider Emergency Medicine; PCP Family Medicine; Visit Provider Internal Medicine | DX: I27.20 Pulmonary hypertension, unspecified (principal); I34.81 Nonrheumatic mitral (valve) annulus calcification; I36.1 Nonrheumatic tricuspid (valve) insufficiency; I21.4 Non-ST elevation (NSTEMI) myocardial infarction; R94.31 Abnormal electrocardiogram [ECG] [EKG]; R79.89 Other specified abnormal findings of blood chemistry | CPT/HCPCS: 93010; 93306; 99223 ==

== ENCOUNTER 2025-06-05 00:50 | Emergency (ER) | payer MEDICARE, MEDICAID, SELFPAY ==
[2025-06-05] VITALS (10 sets, daily range): BP systolic 111–131; BP diastolic 52–77; PULSE 59–83; RESP 16–24; TEMP 36.3–36.9; O2SAT 97–100; BMI 35.8
--- OUTSIDE RECORDS SUMMARY | 2025-06-05 01:16 | XMS_ITS | Encounter Summary ---
Author Organization [employer] Address [address] [place] [address] Care Team Providers Care Special Procedures Technologist Name Role Phone Hal Cole MD Primary Care Provider [phone] Encounter Details Date Type Department Care Team (Late st Contact Info) Description 09/28/2024 Lab Requisition [facility] - Main Lab [address] [facility] [place] [address] Hal Cole MD [address] [place] [address], [phone] Essential (primary) hypertension; Chronic obstructive pulmonary [...] ORDERABLES Final Resul t Performing Organization Address [facility]/ZIP Co de Phone Number [facility] [address] [place] [address], [place] [phone] * Free thyroxine with reflex to free triiodothyronine (09/28/2024 7:04 AM EST) Pathologist [facility] Free T4 0.88 0.70 - 1.80 ng/dL LAB CHEMISTRY METHOD 09/28/2024 12:41 PM EST [facility] Blood Venous blood specimen / Unknown Venipuncture / Unknown 09/28/2024 7:04 AM EST 09/28/2024 11:03 AM EST Hal Cole MD LAB BLOOD ORDERABLES Final Resul t [facility] [address] [place] [address], [place] [phone] * (ABNORMAL) Thyroid stimulating hormone with reflex to free t4 and free t3 (09/28/2024 7:04 AM EST) TSH 50.98(H) 0.40 - 4.00 mcIU/mL LAB CHEMISTRY METHOD 09/28/2024 12:[address] [facility] Blood Venous blood specimen / Unknown Venipuncture / Unknown 09/28/2024 7:04 AM EST 09/28/2024 11:03 AM EST us Hal Cole MD LAB BLOOD ORDERABLES Final Resul t [facility] [address] [place] [address], [place] [phone] * (ABNORMAL) Basic metabolic panel (09/28/2024 7:04 AM EST) Sodium 141 133 - 145 mmol/L LAB CHEMISTRY METHOD 09/28/2024 12:[address] [facility] Potassium 4.2 3.5 - 5.5 mmol/L LAB CHEMISTRY METHOD 09/28/2024 12:[address] [facility] Chloride 106 96 - 110 mmol/L LAB CHEMISTRY METHOD 09/28/2024 12:[address] [facility] CO2 29 21 - 32 mmol/L LAB CHEMISTRY METHOD 09/28/2024 12:[address] [facility] Anion Gap 6 3 - 11 LAB CHEMISTRY METHOD 09/28/2024 12:[address] [facility] Glucose 139(H) 70 - 100 mg/dL LAB CHEMISTRY METHOD 09/28/2024 12:[address] [facility] BUN 67(H) 5 - 25 mg/dL LAB CHEMISTRY METHOD 09/28/2024 12:[address] [facility] Creatinine 1.83(H) 0.50 - 1.10 mg/dL LAB CHEMISTRY METHOD 09/28/2024 12:[address] [facility] eGFR 28(L) >=60 mL/min/1. 73m2 LAB CHEMISTRY METHOD 09/28/2024 12:[address] [facility] Comment:Calculation based on the Chronic Kidney Disease Epidemiology Collaboration (CKD-EPI) equation refit without adjustment for race. BUN/Creatinine Ratio 36.6 LAB CHEMISTRY METHOD 09/28/2024 12:[address] [facility] Calcium 8.3(L) 8.5 - 10.5 mg/dL LAB CHEMISTRY METHOD 09/28/2024 12:[address] [facility] Blood Venous blood specimen / Unknown Venipuncture / Unknown 09/28/2024 7:04 AM EST 09/28/2024 11:03 AM EST us Hal Cole MD LAB BLOOD ORDERABLES Final Resul t [facility] [address] [place] [address], * (ABNORMAL) Complete blood count (09/28/2024 7:04 AM EST) WBC 7.1 4.8 - 10.8 K/mcL LAB HEMETOLOGY METHOD 09/28/2024 11:[address] [facility] RBC 3.70(L) 3.80 - 4.80 M/mcL LAB HEMETOLOGY METHOD 09/28/2024 11:[address] [facility] Hemoglobin 10.8(L) 11.5 - 16.0 g/dL LAB HEMETOLOGY METHOD 09/28/2024 11:[address] [facility] Hematocrit 36.0 35.0 - 47.0 % LAB HEMETOLOGY METHOD 09/28/2024 11:[address] [facility] MCV 96.5 79.0 - 98.0 FL LAB HEMETOLOGY METHOD 09/28/2024 11:[address] [facility] MCH 29.0 27.0 - 32.0 pcg LAB HEMETOLOGY METHOD 09/28/2024 11:[address] [facility] MCHC 30.0(L) 32.0 - 37.0 g/dL LAB HEMETOLOGY METHOD 09/28/2024 11:31 AM EST [facility] RDW 13.5 11.0 - 15.0 % LAB HEMETOLOGY METHOD 09/28/2024 11:[address] [facility] Platelets 214 130 - 400 K/mcL LAB HEMETOLOGY METHOD 09/28/2024 11:[address] [facility] MPV 9.9 7.0 - 11.0 FL LAB HEMETOLOGY METHOD 09/28/2024 11:[address] [facility] NRBC 0.0 <1.0 % LAB HEMETOLOGY METHOD 09/28/2024 11:[address] [facility] NRBC Absolute 0.00 <0.10 K/mcL LAB HEMETOLOGY METHOD 09/28/2024 11:[address] [facility] Blood Venous blood specimen / Unknown Venipuncture / Unknown 09/28/2024 7:04 AM EST 09/28/2024 11:03 AM EST us Hal Cole MD LAB BLOOD ORDERABLES Final Resul t [facility] [address] [place] [address], documented in this encounter Visit Diagnoses Diagnosis Essential (primary) hypertension Unspecified essential hypertension Chronic obstructive pulmonary disease, unspecified (CMS/HCC V24, CMS/HCC V28) documented in this encounter Care Teams Special Procedures Technologist Relationship Specialty Start Date End Date Hal Cole MD [address] [place] [address], [phone] PCP - General Family Medicine 09/15/24 documented as of this encounter
--- OUTSIDE RECORDS SUMMARY | 2025-06-05 01:16 | XMS_ITS | Clinical Summary ---
Author Organization [facility] Address [address] [place] [address] Phone Care Team Providers Care Chainsaw Mechanic Name Role Phone Neida Mirza MD Primary Care Provider [phone] Allergies Active Allergy Reactions Criticality Noted Date [...] this topic Insurance Medicare Medicare Care Teams Chainsaw Mechanic Relationship Specialty Start Date End Date Neida Mirza MD [address] [place], [place] PCP - General 11/05/20
[2025-06-05 01:48] LABS: MANUAL DIFF FLAG NO
[2025-06-05 01:51] LABS: Hematocrit 31.7 % (37.0-47.0); Hemoglobin 9.8 g/dl (12.0-16.0); Imm Gran Abs Auto 0.07 X10*3/uL (0.00-0.03); Imm Gran Pct Auto 0.7 % (0.0-0.4); Lymphocytes Absolute Auto 0.6 X10*3/uL (1.2-4.9); Mean Corpuscular HGB Conc 30.9 g/dl (31.0-35.0); Mean Corpuscular Hemoglobin 28.3 pg (27.0-33.0); Mean Corpuscular Volume 91.6 fL (80.0-98.0); NRBC Abs Auto 0.000 X10*3/uL (0.0-0.012); NRBC Pct Auto 0.0 /100WBC (0.0-0.2); Platelet Count 248 X10*3/uL (160-400); Red Blood Count 3.46 X10*6/uL (4.20-5.50); White Blood Count 10.1 X10*3/uL (4.8-10.8)
[2025-06-05 02:03] LABS: Appearance Urine Turbid; Glucose Urine UA >=1000 mg/dL (Negative); PH 5.5 (5.0-9.0); Specific Gravity - Urine 1.020 (1.005-1.025); UMIC TRIGGER UA YES
[2025-06-05 02:08] LABS: Alanine Aminotransferase < 6 U/L (0-31); Albumin Level 3.7 g/dL (3.5-5.0); Alkaline Phosphatase 130 U/L (39-117); Anion Gap 18 (12-20); Aspartate Amino Transferase 14 U/L (5-31); Blood Urea Nitrogen 43 mg/dL (9-16); Calcium 8.4 mg/dL (8.4-10.2); Carbon Dioxide 25 mmol/L (22-29); Chloride 102 mmol/L (96-108); Creatinine Clr Calc Pharmacy 37.0; Estimated Glomerular Filt Rate 34; Potassium 4.4 mmol/L (3.3-5.1); Sodium 141 mmol/L (135-145); Total Protein 6.9 g/dL (6.5-8.0)
--- NOTE | 2025-06-05 08:07 | ED.GENADULT ---
HPI - General Adult General Chief complaint: General Medical Stated complaint: WEAKNESS Time Seen by Provider: 06/05/25 08:06 Source: patient, EMS, RN notes reviewed and old records reviewed Mode of arrival: EMS Limitations: no limitations History of Present Illness ED Provider: Diaz Knowles PA-C HPI narrative: 79 yo female with history of morbid obesity (BMI 97), COPD on 3L NC, TEZ noncompliant with CPAP, HFpEF, CKD IV, DM2, HTN, HLD, hypothyroidism, chronic Francisco with recurrent UTIs, chronic leg wounds, coccyx wound, recent [place] [facility] [place] for MRSA/PSA PNA requiring ICU and mechnical ventilation and NSTEMI who presents to the ER from home via EMS for evaluation after her son was unable to boost her up in bed. She states she lives at home with her son who is able to do everything except boost me and the floor assembler won't do it anymore. She hospital bed at home and cooking show host that come to help. She states she was supposed to have a nurse that never came. She states she is able to stand up and ambulate small distances with a walker. She states she has been in her baseline since she was discharged in April. She went to [facility] for short-term rehab and has been home, reportedly doing well. She denies any fevers, chills, chest pain, shortness of breath, abdominal pain, vomiting. She states her Francisco catheter has been intermittently leaking. MD complaint: decreased mobility Relieving factors: none Exacerbating factors: none Associated symptoms: denies other symptoms Treatments prior to arrival: none Related Data Home Medications ?Medication ?Instructions ?Recorded ?Confirmed lorazepam 0.5 mg tablet (Ativan) 0.5 mg PO BID 04/25/25 05/10/25 lorazepam 0.5 mg tablet (Ativan) 1 mg PO Q6H PRN Anxiety 04/25/25 05/10/25 acetaminophen 325 mg tablet 650 mg PO Q4H PRN Fever Or Pain 05/10/25 05/10/25 acetaminophen 650 mg rectal 650 mg SC Q4H PRN Fever Or Pain 05/10/25 05/10/25 suppository bisacodyl 10 mg rectal suppository 10 mg SC DAILY PRN Constipation 05/10/25 05/10/25 insulin lispro 100 unit/mL 1 sliding scale dose subcut TIDAC 05/10/25 05/10/25 subcutaneous solution (Humalog U-100 Insulin) magnesium hydroxide 400 mg/5 mL 30 ml PO DAILY PRN Constipation 05/10/25 05/10/25 oral suspension (Milk of Magnesia) sodium phosphates 19 gram-7 118 ml SC DAILY PRN Constipation 05/10/25 05/10/25 gram/118 mL enema (Fleet Enema) empagliflozin 10 mg tablet 10 mg PO DAILY 06/05/25 (Jardiance) insulin glargine 100 unit/mL (3 25 unit subcut BEDTIME 06/05/25 mL) subcutaneous pen (Lantus Solostar U-100 Insulin) Previous Rx's ?Medication ?Instructions ?Recorded Lift chair #1 ea 01/19/25 amlodipine 5 mg tablet 5 mg PO DAILY #90 tabs 03/15/25 ammonium lactate 12 % lotion 1 appl topical BID #400 grams 03/15/25 atorvastatin 40 mg tablet 40 mg PO BEDTIME 90 days #90 tabs 03/15/25 blood sugar diagnostic (Accu-Chek #100 ea 03/15/25 Odilia Plus test strips) blood sugar diagnostic (Accu-Chek #100 ea 03/15/25 Guide test strips) gemfibrozil 600 mg tablet 600 mg PO BID #180 tabs 03/15/25 insulin syringe-needle U-100 0.5 #100 ea 03/15/25 mL 31 gauge x 03/10 lancets (Accu-Chek Softclix #100 ea 03/15/25 Lancets) levothyroxine 200 mcg tablet 200 mcg PO DAILY@0600 90 days #90 03/15/25 tabs pen needle, diabetic 31 gauge x #100 ea 03/15/2503/10 (1st Tier Unifine Pentips) sodium bicarbonate 650 mg tablet 650 mg PO DAILY #90 tabs 03/15/25 sodium zirconium cyclosilicate 10 10 g PO DAILY #90 ea 03/15/25 gram oral powder packet (Lokelma) compression stockings #1 ea 03/29/25 benzonatate 100 mg capsule 100 mg PO TID PRN Cough #1 cap 04/10/25 ferrous sulfate 324 mg (65 mg 324 mg PO DAILY #1 tab 04/10/25 iron) tablet,delayed release furosemide 40 mg tablet 40 mg PO BID@0900,1800 #1 tab 04/10/25 sertraline 50 mg tablet 75 mg (1.5 x 50 mg) PO DAILY #1 tab 04/10/25 levofloxacin 750 mg tablet 750 mg PO DAILY #3 tabs 05/13/25 prednisone 10 mg tablet See Rx Instructions .Route 05/13/25 .COMPLEX #40 tabs albuterol sulfate 90 mcg/actuation 2 puff inhalation Q6H PRN 05/29/25 aerosol inhaler (Ventolin HFA) Shortness Of Breath Or Wheezing 30 days #6.7 grams hospital bed #1 ea 05/29/25 albuterol sulfate 2.5 mg/3 mL 2.5 mg (3 mL) inhalation Q6H PRN 05/30/25 (0.083 %) solution for nebulization shortness of breath or wheezing 30 days #90 mL cephalexin 500 mg capsule 500 mg PO BID 7 days #14 caps 06/05/25 Allergies Allergy/AdvReac Type Severity Reaction Status Date / Time ibuprofen (From Motrin) Allergy Unknown swelling Verified 06/05/25 01:05 codeine (CODEINE) AdvReac Unknown SLEEPY Verified 06/05/25 01:05 Review of Systems Review of Systems: Yes all other systems are reviewed and are negative [facility] Past Medical History Medical History (Updated 06/05/25 @ 15:50 by АНДРЕЙ [place]) Obesity hypoventilation syndrome Pulmonary hypertension Lymphedema COPD (chronic obstructive pulmonary disease) CHF (congestive heart failure) Hypothyroidism Diabetes mellitus Pure hypercholesterolemia Open wound Bilateral hydronephrosis Skin ulcer of sacral region COPD exacerbation MARJORIE (acute kidney injury) Pneumonitis CKD (chronic kidney disease) Renal insufficiency Urinary retention Lumbar degenerative disc disease Chronic pain syndrome Venous stasis dermatitis Atelectasis Generalized anxiety disorder CHF (congestive heart failure) Anemia Herpes zoster Left bundle branch block Morbid obesity Chronic pain syndrome Anxiety Pernicious anemia Essential hypertension Surgical History H/O left knee surgery Deficient knowledge of leg surgery History of tonsillectomy and adenoidectomy History of appendectomy Family History Family History Father CVD (cardiovascular disease) Mother No problems noted. Family/Other FH: mental illness Social History Social History Household Members: Children Household Members Other:: son Housing: Group Home Do you presently have visiting nurse or other home services: Yes (vna) Alcohol intake: unknown Comment: 1:1 sitter for oxygen administration and redirection Patient Tobacco Use Status: Former Tobacco user Tobacco use type: Cigarette Smoked in Last 30 Days: No e-Cigarette/Vaping Use: Never Used Second Hand Smoke Exposure: No Use of substances other than those prescribed or required for medical reasons: No Advance Directives: Yes Advance Directives on File: Yes Advance Directives Date on File: 06/24/24 service: No Current occupational status: disabled Cognitive needs: Yes (Wheelchair, Lift chair) Hearing needs: No Vision needs: Yes (Glasses) Physical Exam ED Exam Exam: Appearance: Alert. Oriented X3. No acute distress. Head: normocephalic, atraumatic. Eyes: Pupils equal, round and reactive to light. ENT: Pharynx normal. No tonsillar swelling or exudate. Poor dentition Neck: Normal inspection. Neck supple. CVS: Normal heart rate and rhythm. Pulses normal. Respiratory: No respiratory distress. Breath sounds diminished at the bilateral bases Abdomen: Obese, nontender pannus, Soft and nontender. +BS x4 Skin: Skin warm and dry. Normal skin color. Normal skin turgor. No rashes. Extremities: No lower extremity edema, there are chronic excoriations, erythema and wounds of the LE Neuro/psych: Oriented X 3. No motor deficit. No sensory deficit. CN II-XII intact. Normal speech and cognition. Vital Signs: Vital Signs - 24 hr 06/05/25 01:09 06/05/25 04:36 06/05/25 08:44 Temperature 98.4 F 97.4 F 98.1 F Pulse Rate 70 83 67 Respiratory Rate 20 16 18 Blood Pressure 111/55 L 131/60 126/77 Pulse Oximetry 100 98 97 Oxygen Delivery Method Nasal Cannula Nasal Cannula Nasal Cannula Oxygen Flow Rate 3 3 2 06/05/25 10:19 06/05/25 10:39 06/05/25 11:02 Temperature Pulse Rate 59 63 63 Respiratory Rate 16 16 Blood Pressure 127/52 L Pulse Oximetry 100 Oxygen Delivery Method Nasal Cannula Oxygen Flow Rate 2 06/05/25 14:00 06/05/25 15:21 Temperature 98.2 F Pulse Rate 65 67 Respiratory Rate 20 24 H Blood Pressure 125/59 L Pulse Oximetry 100 Oxygen Delivery Method Nasal Cannula Oxygen Flow Rate 2 BMI result Body Mass Index 35.8 Course Reevaluation(s) Reevaluation #1: Physician observation started at 9:25. Patient placed in physician observation because patient is awaiting PT evaluation and case management consult for possible short term rehab. At the time observation was started patient's vital signs were stable. Patient is alert and oriented. Neuro exam is non-focal. CV: RRR and lungs are clear. Will continue to monitor. Reevaluation #2: Physician observation discontinued at this time. She has been accepted to short-term rehab and does not require medical admission to the hospital. Her urinalysis and urine cultures from the past were reviewed. She does have positive nitrites on UA, last time she had positive nitrites she had a true UTI. Will treat with Keflex. First dose given now. Will send with a prescription. She is stable for discharge to short-term rehab. Vital signs are stable and patient is agreeable with plan. Time: 15:52 Medications Administered Generic Name Dose Route Start Last Admin Trade Name Freq PRN Reason Stop Dose Admin Acetaminophen 975 mg 06/05/25 10:00 06/05/25 10:12 Acetaminophen 325 Mg Tablet PO 975 mg Q8H GEO Administration Albuterol/Ipratropium 3 ml 06/05/25 10:25 06/05/25 15:17 Albuterol/Iprat 2.5/0.5mg 3 Ml Ampul.Neb INHALE 3 ml TID GEO Administration Nystatin 1 appl 06/05/25 10:00 06/05/25 10:12 Nystatin Powder 15 Gm Bottle TOPICAL 1 appl BID GEO Administration Protocol Medical Decision Making Medical Decision Making MDM Narrative: 79-year-old female with a complex medical history including chronic hypoxic respiratory failure due to COPD, morbid obesity with TEZ, noncompliant with CPAP, urinary retention with chronic Francisco, recurrent UTIs, recent [place] [facility] [place] failure due to MRSA and Pseudomonas pneumonia requiring mechanical ventilation, additional recent admission for NSTEMI who presents back to the ER from home for care issues. She is hemodynamically stable, feeling at her baseline. Her medical workup is largely unremarkable aside from a positive urinalysis. Her urinalysis on review is chronically positive. Her most recent urine culture is positive for Ramila, likely not a true fungal infection and more likely contamination. Prior to that she had to Enterococcus cultures in February and March. This may be more colonization. she does not have a white count or a fever. Patient placed in physician observation, seen by Physical therapy and Case Management. She has been accepted to short-term rehab. She does not requiring medical admission to the hospital and can be discharged to rehab. Given her nitrites are positive will start empriic treatment for possible UTI while awaitng urine culture. Differential Diagnosis Differential Diagnoses: The differential diagnosis associated with the presentation includes generalized weakness and mobility limitations due to body habitus, UTI, failure to thrive Admission/Observation Consideration of admission/observation: Escalation of care including admission/observation considered Lab Data MDM Lab Attestation statement: I reviewed the patient's lab results. No leukocytosis, stable anemia, stable CKD, hyperglycemia w/out anion gap UA is positive for infection however she clincially does not seem infected 06/05/25 01:45 06/05/25 01:45 Labs: Lab Results 06/05/25 06/05/25 06/05/25 Range/Units 01:45 01:55 10:04 WBC 10.1 (4.8-10.8) X10*3/uL RBC 3.46 L D (4.20-5.50) X10*6/uL Hgb 9.8 L D (12.0-16.0) g/dl Hct 31.7 L D (37.0-47.0) % MCV 91.6 (80.0-98.0) fL MCH 28.3 (27.0-33.0) pg MCHC 30.9 L (31.0-35.0) g/dl RDW 14.8 (11.0-16.0) % Plt Count 248 (160-400) X10*3/uL MPV 9.0 L (9.4-12.3) fL Immature Gran % (Auto) 0.7 H (0.0-0.4) % Neut % (Auto) 86.3 H (45-73) % Lymph % (Auto) 5.9 L (20-40) % [place] % (Auto) 3.5 (2-11) % Eos % (Auto) 3.4 (0-4) % Baso % (Auto) 0.2 (0-2) % Lymph # (Auto) 0.6 L (1.2-4.9) X10*3/uL [place] # (Auto) 0.4 (0.1-1.2) X10*3/uL Eos # (Auto) 0.3 (0.0-0.4) X10*3/uL Baso # (Auto) 0.0 (0.0-0.2) X10*3/uL Abs Immat Gran (auto) 0.07 H (0.00-0.03) X10*3/uL Absolute Neuts (auto) 8.8 H (2.0-8.3) x10*3/uL Absolute Nucleated RBC 0.000 (0.0-0.012) X10*3/uL Nucleated RBC % (auto) 0.0 (0.0-0.2) /100WBC Sodium 141 (135-145) mmol/L Potassium 4.4 (3.3-5.1) mmol/L Chloride 102 (96-108) mmol/L Carbon Dioxide 25 (22-29) mmol/L Anion Gap 18 (12-20) BUN 43 H (9-16) mg/dL Creatinine 1.47 H (0.5-1.4) mg/dL Estim Creat Clear Calc 37.0 Estimated GFR 34 POC Glucose 126 H (60-115) mg/dL Random Glucose 308 H (60-115) mg/dL Calcium 8.4 D (8.4-10.2) mg/dL Total Bilirubin 0.2 (0.0-1.0) mg/dL AST 14 (5-31) U/L ALT < 6 (0-31) U/L Alkaline Phosphatase 130 H (39-117) U/L Total Protein 6.9 (6.5-8.0) g/dL Albumin 3.7 (3.5-5.0) g/dL Urine Color Yellow Urine Appearance Turbid Urine pH 5.5 (5.0-9.0) Ur Specific Gilbert 1.020 (1.005-1.025) Urine Protein 300 (3+) H (Neg-Trace) mg/dL Urine Glucose (UA) >=1000 H (Negative) mg/dL Urine Ketones Negative (Negative) mg/dL Urine Blood Moderate (2+) H (Negative) Urine Nitrite Positive H (Negative) Ur Leukocyte Esterase Large (3+) H (Negative) Urine RBC >20 H (0-2) /HPF Urine WBC >50 H (0-5) /HPF Ur Squamous Epith Cells 11-20 (0-2) /HPF Urine Bacteria 4+ (None Seen) Hyaline Casts 11-20 (0-2) /LPF Urine Yeast Present Independent Historian Clinical information obtained from an independent historian. History obtained from or confirmed by: EMS External Record Review External record reviewed: Inpatient record, Outpatient record, Prior outpatient labs and Prior outpatient radiology Prescription Management I considered prescription management with: Pain Medication and Antibiotic Chronic Conditions Patient?s care impacted by: Diabetes, Hypertension and Other (COPD, obesity, chronic francisco) Social Determinants Patient?s care significantly limited by Social Determinants of Health including: Problems related to primary support group and Other Social Determinant of Health Critical Care Time Critical Care Time Critical Care Time: No Discharge Plan Discharge Clinical Impression: Generalized weakness, Morbid obesity, Limited mobility in bed, Catheter-associated urinary tract infection Patient Disposition: Xfer Inpatient Rehab Fac Instructions: Francisco Catheter Care, Weakness (ED), Skin Yeast Infection (ED), Catheter-associated Urinary Tract Infection (ED) Additional Instructions: Your lab work today was unremarkable. Your urinalysis showed possible infection - take the prescribed antibiotic for this and complete the entire course. Continue nystatin or antifungal topical treatments of the infection until improved. keep clean and dry It is important to keep tight glucose control to help this infection get better Follow up with your PCP as soon as possible If you develop new or worsening symptoms call 911 or come back to the ER for further evaluation. Prescriptions: New cephalexin 500 mg capsule 500 mg PO BID 7 Days Qty: 14 0RF No Action (DME) Lift chair See Rx Instructions .Route .MEDSUPPLY Qty: 1 0RF Rx Instructions: As directed (DME) compression stockings 40 mmHg knee high See Rx Instructions .Route .MEDSUPPLY Qty: 1 0RF Rx Instructions: As directed albuterol sulfate [Ventolin HFA] 90 mcg/actuation HFA aerosol inhaler 2 puff inhalation Q6H PRN (Reason: Shortness Of Breath Or Wheezing) 30 Days Qty: 6.7 1RF (DME) hospital bed See Rx Instructions .Route .MEDSUPPLY Qty: 1 0RF Rx Instructions: As directed albuterol sulfate 2.5 mg /3 mL (0.083 %) solution for nebulization 2.5 mg inhalation Q6H PRN (Reason: shortness of breath or wheezing) 30 Days Qty: 90 6RF insulin glargine [Lantus Solostar U-100 Insulin] 100 unit/mL (3 mL) insulin pen 25 unit subcut BEDTIME Jardiance 10 mg tablet 10 mg PO DAILY furosemide 40 mg Tablet 40 mg PO BID@0900,1800 Qty: 1 0RF Protocol: Hold for SBP< HOLD for SBP < : 90 benzonatate 100 mg Capsule 100 mg PO TID PRN (Reason: Cough) Qty: 1 0RF ferrous sulfate 324 mg (65 mg iron) Tablet,Delayed Release (Dr/Ec) 324 mg PO DAILY Qty: 1 0RF sertraline 50 mg tablet 75 mg PO DAILY Qty: 1 0RF lorazepam [Ativan] 0.5 mg tablet 0.5 mg PO BID lorazepam [Ativan] 0.5 mg tablet 1 mg PO Q6H PRN (Reason: Anxiety) insulin lispro [Humalog U-100 Insulin] 100 unit/mL Solution 1 sliding scale dose SUBCUT TIDAC Protocol: Insulin Correction Scale Less than or equal to 110 ---- Give (units): 0 111 to 150 Give (units): 0 151 to 200 Give (units): 0 201 to 250 Give (units): 2 251 to 300 Give (units): 4 301 to 350 Give (units): 6 Greater than 350 Give (units): 8 Call MD if Blood Glucose > : 350 acetaminophen 325 mg Tablet 650 mg PO Q4H PRN (Reason: Fever Or Pain) acetaminophen 650 mg Suppository 650 mg SC Q4H PRN (Reason: Fever Or Pain) magnesium hydroxide [Milk of Magnesia] 400 mg/5 mL Suspension 30 ml PO DAILY PRN (Reason: Constipation) bisacodyl 10 mg Suppository 10 mg SC DAILY PRN (Reason: Constipation) Fleet Enema 19-7 gram/118 mL Enema 118 ml SC DAILY PRN (Reason: Constipation) prednisone 10 mg tablet See Rx Instructions .ROUTE .COMPLEX Qty: 40 0RF Rx Instructions: 40 mg daily x 4 days, then 30 mg daily x 4 days, then 20 mg daily x 4 days, then 10 mg daily x 4 days levofloxacin 750 mg tablet 750 mg PO DAILY Qty: 3 0RF Rx Instructions: Take tablet of levofloxacin 750 mg on 05/11 to complete course of antibiotics for Pseudomonas pneumonia. atorvastatin 40 mg tablet 40 mg PO BEDTIME 90 Days Qty: 90 3RF (DME) Accu-Chek Guide test strips Strip See Rx Instructions .Route Qty: 100 3RF Rx Instructions: Use 1 test strip once a day (DME) Accu-Chek Odilia Plus test strp Strip See Rx Instructions .Route Qty: 100 1RF Rx Instructions: Use 1 test strip once a day gemfibrozil 600 mg tablet 600 mg PO BID Qty: 180 1RF (DME) insulin syringe-needle U-100 0.5 mL 31 gauge x 5/16 syringe See Rx Instructions .Route Qty: 100 3RF Rx Instructions: Use 1 needle once a day (DME) lancets [Accu-Chek Softclix Lancets] Misc See Rx Instructions .Route Qty: 100 3RF Rx Instructions: Use 1 lancet once a day levothyroxine 200 mcg tablet 200 mcg PO DAILY@0600 90 Days Qty: 90 0RF (DME) pen needle, diabetic [1st Tier Unifine Pentips] 31 gauge x 5/16 needle See Rx Instructions .Route Qty: 100 4RF Rx Instructions: Use 1 pen needle once a day sodium bicarbonate 650 mg tablet 650 mg PO DAILY Qty: 90 0RF Lokelma 10 gram powder in packet 10 g PO DAILY Qty: 90 0RF amlodipine 5 mg tablet 5 mg PO DAILY Qty: 90 2RF ammonium lactate 12 % lotion 1 appl topical BID Qty: 400 3RF Referrals: Neida Mirza MD [Primary Care Provider, Internal Medicine] Print Language: Algerian
[2025-06-05 10:16] LABS: Glucose, Whole Blood 126 mg/dL (60-115)
--- NOTE | 2025-06-05 10:26 | PC.NURSE ---
Pt is alert and oriented. Reports acute on chronic tailbone pain. Readjusted multiple times with little relief. Tylenol given. Pt also noted with red fungal area to groin, also thick vaginal discharge noted. Nystatin applied, Moyer care provided. Moyer is patent for yellow urine, sediment noted. Pt request POC to be checked, 126. Request updraft for c/o SOB however breathing is non labored, sat 100% on baseline home 02 of 2lpm, LS clear throughout. Isaura CHIANG aware. Dressing intact to coccyx from prior shift. Meds crushed as requested and tolerated well. VSS. Pharmacy to work on med rec when able
[2025-06-05] MEDS: Albuterol/Iprat 2.5/0.5MG 3 ML AMPUL.NEB INHALE ×2 (10:36→15:17)
--- NOTE | 2025-06-05 11:13 | PC.NURSE ---
RT to bedside for updraft as requested PT at bedside for evaluation
--- NOTE | 2025-06-05 13:17 | MHC.CM.PN ---
Addendum entered by Loree Fitzgerald 06/05/25 15:00: [facility] HAS ACC[facility]PT[facility], HOWEVER THEY REPORT PT WILL HAVE A COPAY OF $209.50 PER DAY PT INFORMED AND AGREEABLE TO COPAY TRANSPORT BOOKED WITH [facility] FOR 1800 HOURS Original Note: PT FROM HOME WHERE SHE LIVES WITH HER SON WHO ASSISTS HER PRN PT IS O2 DEPENDENT AND USES A WHEEL CHAIR NEEDED HCP ON FILE PT AWARE STR IS BEING RECOMMENDED, SHE IS AGREEABLE AND REPORTS [facility] IS PREFERRED REFERRAL PLACED
--- NOTE | 2025-06-05 16:12 | PC.NURSE ---
[facility] Patient has francisco in place draining clear yellow urine. Patient wearing NC 2L O2 95% RR 20. Patient complaining of coccyx pain, gets scheduled tylenol. Attempted to reconcile medications with patient, patient informed the RN to reach out to her son He knows my medications . Reached out to son, no answer on the phone left non urgent message to call back. Patient recieved placement at [place] and expected departure time 1800 today.
--- NOTE | 2025-06-05 16:54 | PC.NURSE ---
Patient c/o that francisco cath was leaking Patient lucas and bahman pads wet. Francisco secured, inspected 10ml balloon - only 6ml water inserted, added 4 ml Francisco still draining yellow urine Patient linen and bahman pads replaced Patient resting in bed at this time
== END 2025-06-05 18:34 ==
PROVIDERS: Emergency Provider Emergency Medicine; PCP Internal Medicine
DX: T83.511A Infection and inflammatory reaction due to indwelling urethral catheter, initial encounter (principal); I13.0 Hypertensive heart and chronic kidney disease with heart failure and stage 1 through stage 4 chronic kidney disease, or unspecified chronic kidney disease; I50.32 Chronic diastolic (congestive) heart failure; N18.4 Chronic kidney disease, stage 4 (severe); E11.22 Type 2 diabetes mellitus with diabetic chronic kidney disease; G89.4 Chronic pain syndrome; J44.9 Chronic obstructive pulmonary disease, unspecified; Z87.440 Personal history of urinary (tract) infections; Z79.899 Other long term (current) drug therapy
CPT/HCPCS: 36415; 80053; 81001; 81003; 82947; 85025; 94640; 97161; 99285

== ENCOUNTER 2025-06-26 22:05 | Emergency (ER) | payer MEDICARE, MEDICAID, SELFPAY ==
[2025-06-26 22:18] VITALS: BP 124/50; PULSE 60; RESP 18; TEMP 36.8; O2SAT 100
[2025-06-26 22:49] LABS: Glucose, Whole Blood 38 mg/dL (60-115)
[2025-06-26 23:05] VITALS: BP 126/50; PULSE 69; RESP 18; TEMP 36.8; O2SAT 100; BMI 31.8
--- NOTE | 2025-06-26 23:07 | ED.FEMALEGU ---
HPI - Female Genitourinary General Chief complaint: Urogenital-Female Stated complaint: Catheter issues Time Seen by Provider: 06/26/25 22:48 Source: patient and EMS Mode of arrival: EMS Limitations: no limitations History of Present Illness ED Provider: Dr. Ana Chris HPI Narrative: 79-year-old female with history of chronic indwelling Moyer catheter, insulin-dependent diabetes, morbid obesity, COPD, CKD presenting with request for Moyer catheter exchange. The patient states that she is supposed to have it changed in 2 days by her home health aide however, today she started to have decreased drainage from the catheter and pain in her abdomen and feels as though she needs to have it changed more immediately. Denies fever. Denies nausea or vomiting. Of note, her initial blood sugar in the emergency department is 38. Patient states ?I took my insulin but I was not that hungry today so I did not eat much?. She has not been sick. No reported cough or cold-type symptoms. Denies bowel changes. denies dysuria or hematuria. Related Data Home Medications ?Medication ?Instructions ?Recorded ?Confirmed lorazepam 0.5 mg tablet (Ativan) 0.5 mg PO BID 04/25/25 05/10/25 lorazepam 0.5 mg tablet (Ativan) 1 mg PO Q6H PRN Anxiety 04/25/25 05/10/25 acetaminophen 325 mg tablet 650 mg PO Q4H PRN Fever Or Pain 05/10/25 05/10/25 acetaminophen 650 mg rectal 650 mg HI Q4H PRN Fever Or Pain 05/10/25 05/10/25 suppository bisacodyl 10 mg rectal suppository 10 mg HI DAILY PRN Constipation 05/10/25 05/10/25 insulin lispro 100 unit/mL 1 sliding scale dose subcut TIDAC 05/10/25 05/10/25 subcutaneous solution (Humalog U-100 Insulin) magnesium hydroxide 400 mg/5 mL 30 ml PO DAILY PRN Constipation 05/10/25 05/10/25 oral suspension (Milk of Magnesia) sodium phosphates 19 gram-7 118 ml HI DAILY PRN Constipation 05/10/25 05/10/25 gram/118 mL enema (Fleet Enema) empagliflozin 10 mg tablet 10 mg PO DAILY 06/05/25 (Jardiance) insulin glargine 100 unit/mL (3 25 unit subcut BEDTIME 06/05/25 mL) subcutaneous pen (Lantus Solostar U-100 Insulin) Previous Rx's ?Medication ?Instructions ?Recorded Lift chair #1 ea 01/19/25 amlodipine 5 mg tablet 5 mg PO DAILY #90 tabs 03/15/25 ammonium lactate 12 % lotion 1 appl topical BID #400 grams 03/15/25 atorvastatin 40 mg tablet 40 mg PO BEDTIME 90 days #90 tabs 03/15/25 blood sugar diagnostic (Accu-Chek #100 ea 03/15/25 Odilia Plus test strips) blood sugar diagnostic (Accu-Chek #100 ea 03/15/25 Guide test strips) gemfibrozil 600 mg tablet 600 mg PO BID #180 tabs 03/15/25 insulin syringe-needle U-100 0.5 #100 ea 03/15/25 mL 31 gauge x 03/10 lancets (Accu-Chek Softclix #100 ea 03/15/25 Lancets) levothyroxine 200 mcg tablet 200 mcg PO DAILY@0600 90 days #90 03/15/25 tabs pen needle, diabetic 31 gauge x #100 ea 03/15/2503/10 (1st Tier Unifine Pentips) sodium bicarbonate 650 mg tablet 650 mg PO DAILY #90 tabs 03/15/25 sodium zirconium cyclosilicate 10 10 g PO DAILY #90 ea 03/15/25 gram oral powder packet (Lokelma) compression stockings #1 ea 03/29/25 benzonatate 100 mg capsule 100 mg PO TID PRN Cough #1 cap 04/10/25 ferrous sulfate 324 mg (65 mg 324 mg PO DAILY #1 tab 04/10/25 iron) tablet,delayed release furosemide 40 mg tablet 40 mg PO BID@0900,1800 #1 tab 04/10/25 sertraline 50 mg tablet 75 mg (1.5 x 50 mg) PO DAILY #1 tab 04/10/25 levofloxacin 750 mg tablet 750 mg PO DAILY #3 tabs 05/13/25 prednisone 10 mg tablet See Rx Instructions .Route 05/13/25 .COMPLEX #40 tabs albuterol sulfate 90 mcg/actuation 2 puff inhalation Q6H PRN 05/29/25 aerosol inhaler (Ventolin HFA) Shortness Of Breath Or Wheezing 30 days #6.7 grams hospital bed #1 ea 05/29/25 albuterol sulfate 2.5 mg/3 mL 2.5 mg (3 mL) inhalation Q6H PRN 05/30/25 (0.083 %) solution for nebulization shortness of breath or wheezing 30 days #90 mL cephalexin 500 mg capsule 500 mg PO BID 7 days #14 caps 06/05/25 Allergies Allergy/AdvReac Type Severity Reaction Status Date / Time ibuprofen (From Motrin) Allergy Unknown swelling Verified 06/26/25 23:10 codeine (CODEINE) AdvReac Unknown SLEEPY Verified 06/05/25 01:05 Review of Systems Review of Systems: as per HPI, full review of systems performed and negative but for the above mentioned pertinent positives and negatives. [facility] Past Medical History Medical History Obesity hypoventilation syndrome Pulmonary hypertension Lymphedema COPD (chronic obstructive pulmonary disease) CHF (congestive heart failure) Hypothyroidism Diabetes mellitus Pure hypercholesterolemia Open wound Bilateral hydronephrosis Skin ulcer of sacral region COPD exacerbation MARJORIE (acute kidney injury) Pneumonitis CKD (chronic kidney disease) Renal insufficiency Urinary retention Lumbar degenerative disc disease Chronic pain syndrome Venous stasis dermatitis Atelectasis Generalized anxiety disorder CHF (congestive heart failure) Anemia Herpes zoster Left bundle branch block Morbid obesity Chronic pain syndrome Anxiety Pernicious anemia Essential hypertension Surgical History H/O left knee surgery Deficient knowledge of leg surgery History of tonsillectomy and adenoidectomy History of appendectomy Family History Family History Father CVD (cardiovascular disease) Mother No problems noted. Family/Other FH: mental illness Social History Social History Household Members: Children Household Members Other:: son Housing: [facility] Do you presently have visiting nurse or other home services: Yes (vna) Alcohol intake: unknown Comment: 1:1 sitter for oxygen administration and redirection Patient Tobacco Use Status: Former Tobacco user Tobacco use type: Cigarette e-Cigarette/Vaping Use: Never Used Second Hand Smoke Exposure: No Advance Directives: Yes Advance Directives on File: Yes Advance Directives Date on File: 06/24/24 Do you have a plan to hurt others: No Plan service: No Current occupational status: disabled Cognitive needs: Yes (Wheelchair, Lift chair) Hearing needs: No Vision needs: Yes (Glasses) Physical Exam Exam: Exam: GENERAL: Chronically ill-appearing, conversant, no acute distress. SKIN: Normal skin color for ethnicity, warm, dry, no rashes noted. HEENT: Normocephalic, atraumatic, no stridor, posterior oropharynx nonerythematous, EOMI. NECK: Soft, supple, full ROM, midline structures nontender, no step-offs, no deformities, no lymphadenopathy. CHEST: Heart regular rate and rhythm, no murmurs, symmetric chest rise and fall. PULMONARY: Clear to auscultation bilaterally, no labored breathing, no wheezes/rhales/ rhonchi. ABDOMINAL: Soft, nondistended, nontender, positive bowel sounds in all quadrants. : Moyer catheter in place draining yellow urine. MUSCULOSKELETAL: Normal tone, full range of motion, no deformities, no peripheral edema. NEURO: Alert and oriented to person, CN II through XII intact, no focal neurologic deficits. PSYCHIATRIC: Flat affect, fluid speech, appropriate demeanor. Vital Signs: Vital Signs: Last Vital Signs Temp 98.2 F 06/26/25 23:05 Pulse 69 06/26/25 23:05 Resp 18 06/26/25 23:05 BP 126/50 L 06/26/25 23:05 Pulse Ox 100 06/26/25 23:05 O2 Del Method Nasal Cannula 06/26/25 23:05 O2 Flow Rate 3 06/26/25 22:18 Oxygen Flow Rate 3 06/26/25 23:05 BMI result Body Mass Index 31.8 Medications Administered Discontinued Medications Generic Name Dose Route Start Last Admin Trade Name Freq PRN Reason Stop Dose Admin Lactated Ringer's 500 mls @ 999 mls/hr 06/27/25 00:08 06/27/25 00:30 Lr IV 06/27/25 00:38 999 mls/hr .Q31M ONE Administration Medical Decision Making Medical Decision Making MDM Narrative: 79-year-old female with a history of chronic indwelling Moyer catheter, CKD presenting with request for Moyer catheter replacement. She denies feeling that she has any type of urinary tract infection symptoms. States that she just needs it changed and it is not draining appropriately. Due to be changed in 2 days. She has no fever, no other infectious symptoms. She does have a low blood sugar but admits she has not been eating well today because ?I am just not hungry?. Still taking all of her insulin as prescribed though. She is drinking orange juice, eating a turkey sandwich to hopefully help her blood sugars. Plan for close glucose monitoring, Moyer catheter exchange and re-evaluation. If her vital signs change or she develops continued hypoglycemia, we will broaden our workup to include blood work and imaging. 1:25 AM 06/27/2025 (Dr. Ana Chris, D.Claire.) blood sugar improved. She is having good urine output in the Moyer. Plan for discharge back home. Using shared decision making, plan for discharge home to follow-up with primary care and/or specialist. Patient understands and agrees with plan for discharge. Discharged home in stable condition. Differential Diagnosis Moyer catheter dysfunction CKD Dehydration Viral syndrome Insulin reaction Admission/Observation Consideration of admission/observation: Escalation of care including admission/observation considered Lab Data MDM Lab Attestation statement: I reviewed the patient's lab results. Labs: Lab Results 06/26/25 06/26/25 06/27/25 Range/Units 22:44 23:07 01:11 POC Glucose 38 L* 74 94 (60-115) mg/dL Independent Historian Clinical information obtained from an independent historian. History obtained from or confirmed by: EMS External Record Review External record reviewed: Inpatient record Chronic Conditions Patient?s care impacted by: Diabetes, Hypertension and Other (COPD) Social Determinants Patient?s care significantly limited by Social Determinants of Health including: Problems related to primary support group Discharge Plan Discharge Clinical Impression: Encounter for Moyer catheter replacement, Diabetic hypoglycemia Patient Disposition: Home, Self-Care Instructions: Hypoglycemia in a Person with Diabetes (ED) Additional Instructions: Try to eat small meals throughout the day if you are taking your insulin. Without food, your blood sugar can dropped very low and you could go into a coma and . Follow-up with your doctor as soon as possible. Drink plenty of fluid over the next several days. Prescriptions: No Action (DME) Lift chair See Rx Instructions .Route .MEDSULY Qty: 1 0RF Rx Instructions: As directed (DME) compression stockings 40 mmHg knee high See Rx Instructions .Route .MEDSUPPLY Qty: 1 0RF Rx Instructions: As directed albuterol sulfate [Ventolin HFA] 90 mcg/actuation HFA aerosol inhaler 2 puff inhalation Q6H PRN (Reason: Shortness Of Breath Or Wheezing) 30 Days Qty: 6.7 1RF (DME) hospital bed See Rx Instructions .Route .MEDSUPPLY Qty: 1 0RF Rx Instructions: As directed albuterol sulfate 2.5 mg /3 mL (0.083 %) solution for nebulization 2.5 mg inhalation Q6H PRN (Reason: shortness of breath or wheezing) 30 Days Qty: 90 6RF insulin glargine [Lantus Solostar U-100 Insulin] 100 unit/mL (3 mL) insulin pen 25 unit subcut BEDTIME Jardiance 10 mg tablet 10 mg PO DAILY cephalexin 500 mg capsule 500 mg PO BID 7 Days Qty: 14 0RF furosemide 40 mg Tablet 40 mg PO BID@0900,1800 Qty: 1 0RF Protocol: Hold for SBP< HOLD for SBP < : 90 benzonatate 100 mg Capsule 100 mg PO TID PRN (Reason: Cough) Qty: 1 0RF ferrous sulfate 324 mg (65 mg iron) Tablet,Delayed Release (Dr/Ec) 324 mg PO DAILY Qty: 1 0RF sertraline 50 mg tablet 75 mg PO DAILY Qty: 1 0RF lorazepam [Ativan] 0.5 mg tablet 0.5 mg PO BID lorazepam [Ativan] 0.5 mg tablet 1 mg PO Q6H PRN (Reason: Anxiety) insulin lispro [Humalog U-100 Insulin] 100 unit/mL Solution 1 sliding scale dose SUBCUT TIDAC Protocol: Insulin Correction Scale Less than or equal to 110 ---- Give (units): 0 111 to 150 Give (units): 0 151 to 200 Give (units): 0 201 to 250 Give (units): 2 251 to 300 Give (units): 4 301 to 350 Give (units): 6 Greater than 350 Give (units): 8 Call MD if Blood Glucose > : 350 acetaminophen 325 mg Tablet 650 mg PO Q4H PRN (Reason: Fever Or Pain) acetaminophen 650 mg Suppository 650 mg HI Q4H PRN (Reason: Fever Or Pain) magnesium hydroxide [Milk of Magnesia] 400 mg/5 mL Suspension 30 ml PO DAILY PRN (Reason: Constipation) bisacodyl 10 mg Suppository 10 mg HI DAILY PRN (Reason: Constipation) Fleet Enema 19-7 gram/118 mL Enema 118 ml HI DAILY PRN (Reason: Constipation) prednisone 10 mg tablet See Rx Instructions .ROUTE .COMPLEX Qty: 40 0RF Rx Instructions: 40 mg daily x 4 days, then 30 mg daily x 4 days, then 20 mg daily x 4 days, then 10 mg daily x 4 days levofloxacin 750 mg tablet 750 mg PO DAILY Qty: 3 0RF Rx Instructions: Take tablet of levofloxacin 750 mg on 05/11 to complete course of antibiotics for Pseudomonas pneumonia. atorvastatin 40 mg tablet 40 mg PO BEDTIME 90 Days Qty: 90 3RF (DME) Accu-Chek Guide test strips Strip See Rx Instructions .Route Qty: 100 3RF Rx Instructions: Use 1 test strip once a day (DME) Accu-Chek Odilia Plus test strp Strip See Rx Instructions .Route Qty: 100 1RF Rx Instructions: Use 1 test strip once a day gemfibrozil 600 mg tablet 600 mg PO BID Qty: 180 1RF (DME) insulin syringe-needle U-100 0.5 mL 31 gauge x 5/16 syringe See Rx Instructions .Route Qty: 100 3RF Rx Instructions: Use 1 needle once a day (DME) lancets [Accu-Chek Softclix Lancets] Misc See Rx Instructions .Route Qty: 100 3RF Rx Instructions: Use 1 lancet once a day levothyroxine 200 mcg tablet 200 mcg PO DAILY@0600 90 Days Qty: 90 0RF (DME) pen needle, diabetic [1st Tier Unifine Pentips] 31 gauge x 5/16 needle See Rx Instructions .Route Qty: 100 4RF Rx Instructions: Use 1 pen needle once a day sodium bicarbonate 650 mg tablet 650 mg PO DAILY Qty: 90 0RF Lokelma 10 gram powder in packet 10 g PO DAILY Qty: 90 0RF amlodipine 5 mg tablet 5 mg PO DAILY Qty: 90 2RF ammonium lactate 12 % lotion 1 appl topical BID Qty: 400 3RF Print Language: Georgian
[2025-06-26 23:11] LABS: Glucose, Whole Blood 74 mg/dL (60-115)
--- OUTSIDE RECORDS SUMMARY | 2025-06-26 23:11 | XMS_ITS | Encounter Summary ---
Author Organization [employer] [facility] Address [address] [place] [address] Care Team Providers Care Materials Handling Equipment Operator Name Role Phone Hal Cole MD Primary Care Provider Encounter Details Date Type Department Care Team (Late st Contact Info) Description 06/23/2025 Lab Requisition [facility] - Main Lab [address] [facility] [place] [address] Hal Cole MD [address] [facility] [address], [phone] Anemia, unspecified; Chronic kidney disease, unspecified Social History Tobacco Use Types Packs/Day Years Used Date Smoking Tobacco: Never Assessed Comments Unknown Sex and Gender Information Value Date Recorded Sex Assigned at Not on file Legal Sex Female 8:35 PM EST Gender Identity Not on file Sexual Orientation Not on file documented as of this encounter Plan of Treatment Scheduled Orders Name Type Priority Associated Diagnoses Orde r Schedule Complete blood count Lab Routine Anemia, unspecified Chronic kidney disease, unspecified Ordered: 06/23/2025 Basic metabolic panel Lab Routine Anemia, unspecified Chronic kidney disease, unspecified Ordered: 06/23/2025 documented as of this encounter Visit Diagnoses Diagnosis Anemia, unspecified Chronic kidney disease, unspecified documented in this encounter Care Teams Materials Handling Equipment Operator Relationship Specialty Start Date End Date Hal Cole MD [address] [facility] [address], [phone] PCP - General Family Medicine 09/15/24 documented as of this encounter
--- OUTSIDE RECORDS SUMMARY | 2025-06-26 23:11 | XMS_ITS | Encounter Summary ---
Author Organization [facility] Address [address] [place] [address] Care Team Providers Care Fishing Rod Trimmer Name Role Phone Hal Cole MD Primary Care Provider Encounter Details Date Type Department Care Team (Late st Contact Info) Description 05/20/2025 Lab Requisition [facility] - Main Lab [address] [place] [address] Hal Cole MD [address] [place] [address], [phone] Hypokalemia; Anemia in chronic kidney disease (CODE) Social History Tobacco Use Types Packs/Day Years [...] Procedure Name Priority Date/Time Associated Diagnosis Comments COMPLETE BLOOD COUNT Routine 05/22/2025 6:46 AM EDT Hypokalemia Anemia in chronic kidney disease (CODE) BASIC METABOLIC PANEL Routine 05/22/2025 6:46 AM EDT Hypokalemia Anemia in chronic kidney disease (CODE) documented in this encounter Results * (ABNORMAL) Complete blood count (05/22/2025 6:46 AM EDT) WBC 7.5 4.8 - 10.8 K/mcL LAB HEMETOLOGY METHOD 05/22/2025 1:35 PM EDT [facility] RBC 3.00(L) 3.80 - 4.80 M/mcL LAB HEMETOLOGY METHOD 05/22/2025 1:35 PM EDT [facility] Hemoglobin 8.2(L) 11.5 - 16.0 g/dL LAB HEMETOLOGY METHOD 05/22/2025 1:35 PM EDT [facility] Hematocrit 28.6(L) 35.0 - 47.0 % LAB HEMETOLOGY METHOD 05/22/2025 1:35 PM EDT [facility] MCV 96.0 79.0 - 98.0 FL LAB HEMETOLOGY METHOD 05/22/2025 1:35 PM EDT [facility] MCH 27.5 27.0 - 32.0 pcg LAB HEMETOLOGY METHOD 05/22/2025 1:35 PM EDT [facility] MCHC 28.7(L) 32.0 - 37.0 g/dL LAB H[facility]ETOLOGY [facility] RDW 16.0(H) 11.0 - 15.0 % LAB HEMETOLOGY METHOD 05/22/2025 1:35 PM EDT [facility] Platelets 205 130 - 400 K/mcL LAB HEMETOLOGY METHOD [facility]2025 [facility] MPV 9.8 7.0 - 11.0 FL LAB HEMETOLOGY METHOD 05/22/2025 1:35 PM EDT [facility] NRBC 0.0 <1.0 % LAB HEMETOLOGY METHOD 05/22/2025 1:35 PM T [facility] NRBC Absolute 0.00 <0.10 K/mcL LAB HEMETOLOGY METHOD 05/22/2025 1:35 PM [facility] Blood Venous blood specimen / Unknown Venipuncture / Unknown 05/22/2025 6:46 AM EDT 05/22/2025 11:48 AM EDT us Hal Cole MD LAB BLOOD ORDERABLES Final Resul t [facility] [address] [place] [address], * (ABNORMAL) Basic metabolic panel (05/22/2025 6:46 AM EDT) Sodium 139 133 - 145 mmol/L LAB CHEMISTRY METHOD 05/22/2025 2:39 PM [facility] Potassium 3.4(L) 3.5 - 5.5 mmol/L LAB CHEMISTRY METHOD 05/22/2025 2:39 PM [facility] Chloride 99 96 - 110 mmol/L LAB CHEMISTRY METHOD 05/22/2025 2:39 PM [facility] CO2 32 21 - 32 mmol/L LAB CHEMISTRY METHOD 05/22/2025 2:39 PM [facility] Anion Gap 8 3 - 11 LAB CHEMISTRY METHOD 05/22/2025 2:39 PM [facility] Glucose 80 70 - 100 mg/dL LAB CHEMISTRY METHOD 05/22/2025 2:39 PM [facility] BUN 63(H) 5 - 25 mg/dL LAB CHEMISTRY METHOD 05/22/2025 2:39 PM [facility] Creatinine 1.62(H) 0.50 - 1.10 mg/dL LAB CHEMISTRY METHOD 05/22/2025 2:39 PM [facility] eGFR 33(L) >=60 mL/min/1. 73m2 LAB CHEMISTRY METHOD 05/22/2025 2:39 PM [facility] Comment:Calculation based on the Chronic Kidney Disease Epidemiology Collaboration (CKD-EPI) equation refit without adjustment for race. BUN/Creatinine Ratio 38.9 LAB CHEMISTRY METHOD 05/22/2025 2:39 PM [facility] Calcium 7.5(L) 8.5 - 10.5 mg/dL LAB CHEMISTRY METHOD 05/22/2025 2:39 PM EDT [facility] Blood Venous blood specimen / Unknown Venipuncture / Unknown 05/22/2025 6:46 AM EDT 05/22/2025 11:48 AM EDT us Hal Cole MD LAB BLOOD ORDERABLES Final Resul t [facility] [address] [place] [address], documented in this encounter Visit Diagnoses Diagnosis Hypokalemia Hypopotassemia Anemia in chronic kidney disease (CODE) documented in this encounter Care Teams Fishing Rod Trimmer Relationship Specialty Start Date End Date Hal Cole MD [address] [place] [address], [phone] PCP - General Family Medicine 09/15/24 documented as of this encounter
--- OUTSIDE RECORDS SUMMARY | 2025-06-26 23:11 | XMS_ITS | Encounter Summary ---
Author Organization [facility] Address [address] [place] [address] Care Team Providers Care Tax Senior Associate Name Role Phone Hal Cole MD Primary Care Provider [phone] Encounter Details Date Type Department Care Team (Late st Contact Info) Description 05/23/2025 Lab Requisition [facility] - Main Lab [address] [place] [address] Hal Cole MD [address] [place] [address], [phone] Chronic kidney disease, unspecified Social History [...] Associated Diagnosis Comments BASIC METABOLIC PANEL Routine 05/24/2025 5:08 AM EDT Chronic kidney disease, unspecified documented in this encounter Results * (ABNORMAL) Basic metabolic panel (05/24/2025 5:08 AM EDT) Sodium 141 133 - 145 mmol/L LAB CHEMISTRY METHOD 05/24/2025 10:40 AM [facility] Potassium 3.4(L) 3.5 - 5.5 mmol/L LAB CHEMISTRY METHOD 05/24/2025 10:40 AM EDT [facility] Chloride 100 96 - 110 mmol/L LAB CHEMISTRY METHOD 05/24/2025 10:40 AM [facility] CO2 31 21 - 32 mmol/L LAB CHEMISTRY METHOD 05/24/2025 10:40 AM [facility] Anion Gap 10 3 - 11 LAB CHEMISTRY METHOD 05/24/2025 10:40 AM [facility] Glucose 176(H) 70 - 100 mg/dL LAB CHEMISTRY METHOD 05/24/2025 10:40 AM [facility] BUN 76(H) 5 - 25 mg/dL LAB CHEMISTRY METHOD 05/24/2025 10:40 AM [facility] Creatinine 1.57(H) 0.50 - 1.10 mg/dL LAB CHEMISTRY METHOD 05/24/2025 10:40 AM [facility] eGFR 34(L) >=60 mL/min/1. 73m2 LAB CHEMISTRY METHOD 05/24/2025 10:40 AM [facility] Comment:Calculation based on the Chronic Kidney Disease Epidemiology Collaboration (CKD-EPI) equation refit without adjustment for race. BUN/Creatinine Ratio 48.4 LAB CHEMISTRY METHOD 05/24/2025 10:40 AM [facility] Calcium 7.9(L) 8.5 - 10.5 mg/dL LAB CHEMISTRY METHOD 05/24/2025 10:40 AM [facility] Blood Venous blood specimen / Unknown Long-term Catheter / Unknown 05/24/2025 5:08 AM EDT 05/24/2025 9:38 AM EDT us Hal Cole MD LAB BLOOD ORDERABLES Final Resul t [facility] [address] [place] [address], documented in this encounter Visit Diagnoses Diagnosis Chronic kidney disease, unspecified documented in this encounter Care Teams Tax Senior Associate Relationship Specialty Start Date End Date Hal Cole MD [address] [place] [phone] PCP - General Family Medicine 09/15/24 documented as of this encounter
--- OUTSIDE RECORDS SUMMARY | 2025-06-26 23:11 | XMS_ITS | Encounter Summary ---
Author Organization [employer] [facility] Address [address] [place] [address] Care Team Providers Care Student Services Advisor Name Role Phone Hal Cole MD Primary Care Provider [phone] Encounter Details Date Type Department Care Team (Late st Contact Info) Description 09/21/2024 Lab Requisition [facility] - Main Lab [address] [place] [address] Hal Cole MD [address] [place] [address], [phone] Chronic kidney disease, unspecified Social History [...] LAB CHEMISTRY METHOD 09/21/2024 12:11 PM EST [facility] Potassium 4.2 3.5 - 5.5 mmol/L LAB CHEMISTRY METHOD 09/21/2024 12:11 PM EST [facility] Chloride 107 96 - 110 mmol/L LAB CHEMISTRY METHOD 09/21/2024 12:11 PM EST [facility] CO2 26 21 - 32 mmol/L LAB CHEMISTRY METHOD 09/21/2024 12:11 PM [facility] Anion Gap 10 3 - 11 LAB CHEMISTRY METHOD 09/21/2024 12:11 PM [facility] Glucose 126(H) 70 - 100 mg/dL LAB CHEMISTRY METHOD 09/21/2024 12:11 PM [facility] BUN 49(H) 5 - 25 mg/dL LAB CHEMISTRY METHOD 09/21/2024 12:11 PM [facility] Creatinine 1.58(H) 0.50 - 1.10 mg/dL LAB CHEMISTRY METHOD 09/21/2024 12:11 PM [facility] eGFR 34(L) >=60 mL/min/1. 73m2 LAB CHEMISTRY METHOD 09/21/2024 12:11 PM [facility] Comment:Calculation based on the Chronic Kidney Disease Epidemiology Collaboration (CKD-EPI) equation refit without adjustment for race. BUN/Creatinine Ratio 31.0 LAB CHEMISTRY METHOD 09/21/2024 12:11 PM [facility] Calcium 8.4(L) 8.5 - 10.5 mg/dL LAB CHEMISTRY METHOD 09/21/2024 12:11 PM [facility] Blood Venous blood specimen / Unknown Venipuncture / Unknown 09/21/2024 7:31 AM EST 09/21/2024 9:59 AM EST us Hal Cole MD LAB BLOOD ORDERABLES Final Resul t [facility] [address] [place] [address], documented in this encounter Visit Diagnoses Diagnosis Chronic kidney disease, unspecified documented in this encounter Care Teams Student Services Advisor Relationship Specialty Start Date End Date Hal Cole MD [address] [place] [address], [phone] PCP - General Family Medicine 09/15/24 documented as of this encounter
--- OUTSIDE RECORDS SUMMARY | 2025-06-26 23:11 | XMS_ITS | Encounter Summary ---
Author Organization [employer] Address [address] [place] [address] Care Team Providers Care Flat Lock Machine Operator Name Role Phone Hal Cole MD Primary Care Provider [phone] Encounter Details Date Type Department Care Team (Late st Contact Info) Description 06/16/2025 Lab Requisition [facility] - Main Lab [address] [place] [address] Hal Cole MD [address] [place] [address], [phone] Anemia, unspecified; Chronic kidney disease, unspecified [...] Associated Diagnosis Comments COMPLETE BLOOD COUNT Routine 06/19/2025 5:45 AM EDT Anemia, unspecified Chronic kidney disease, unspecified BASIC METABOLIC PANEL Routine 06/19/2025 5:45 AM EDT Anemia, unspecified Chronic kidney disease, unspecified documented in this encounter Results * (ABNORMAL) Basic metabolic panel (06/19/2025 5:45 AM EDT) Sodium 140 133 - 145 mmol/L LAB CHEMISTRY METHOD 06/19/2025 11:23 AM EDT [facility] Potassium 3.4(L) 3.5 - 5.5 mmol/L LAB [facility] Chlor[facility] 100 96 - 110 mmol/L LAB CHEMISTRY METHOD 06/19/2025 11:23 AM [facility] CO2 29 21 - 32 mmol/L LAB CHEMISTRY METHOD 06/19/2025 11:23 AM [facility] Anion Gap 11 3 - 11 LAB CHEMISTRY METHOD 06/19/2025 11:23 AM [facility] Glucose 203(H) 70 - 100 mg/dL LAB CHEMISTRY METHOD 06/19/2025 11:23 AM [facility] BUN 88(H) 5 - 25 mg/dL LAB CHEMISTRY METHOD 06/19/2025 11:23 AM [facility] Creatinine 1.43(H) 0.50 - 1.10 mg/dL LAB CHEMISTRY METHOD 06/19/2025 11:23 AM [facility] eGFR 38(L) >=60 mL/min/1. 73m2 LAB CHEMISTRY METHOD 06/19/2025 11:23 AM [facility] Comment:Calculation based on the Chronic Kidney Disease Epidemiology Collaboration (CKD-EPI) equation refit without adjustment for race. BUN/Creatinine Ratio 61.5 LAB CHEMISTRY METHOD 06/19/2025 11:23 AM [facility] Calcium 7.7(L) 8.5 - 10.5 mg/dL LAB CHEMISTRY METHOD 06/19/2025 11:23 AM [facility] Blood Venous blood specimen / Unknown Venipuncture / Unknown 06/19/2025 5:45 AM EDT 06/19/2025 10:26 AM EDT us Hal Cole MD LAB BLOOD ORDERABLES Final Resul t [facility] [address] [place] [address], * (ABNORMAL) Complete blood count (06/19/2025 5:45 AM EDT) [facility] WBC 9.4 4.8 - 10.8 K/mcL LAB HEMETOLOGY METHOD 06/19/2025 10:42 AM [facility] RBC 3.30(L) 3.80 - 4.80 M/mcL LAB HEMETOLOGY METHOD 06/19/2025 10:42 AM [facility] Hemoglobin 9.1(L) 11.5 - 16.0 g/dL LAB HEMETOLOGY METHOD 06/19/2025 10:42 AM [facility] Hematocrit 30.2(L) 35.0 - 47.0 % LAB HEMETOLOGY METHOD 06/19/2025 10:42 AM [facility] MCV 92.1 79.0 - 98.0 FL LAB HEMETOLOGY METHOD 06/19/2025 10:42 AM [facility] MCH 27.7 27.0 - 32.0 pcg LAB HEMETOLOGY METHOD 06/19/2025 10:42 AM [facility] MCHC 30.1(L) 32.0 - 37.0 g/dL LAB HEMETOLOGY METHOD 06/19/2025 10:42 AM [facility] RDW 14.6 11.0 - 15.0 % LAB HEMETOLOGY METHOD 06/19/2025 10:42 AM [facility] Platelets 305 130 - 400 K/mcL LAB HEMETOLOGY METHOD 06/19/2025 10:42 AM [facility] MPV 9.5 7.0 - 11.0 FL LAB HEMETOLOGY METHOD 06/19/2025 10:42 AM [facility] NRBC 0.0 <1.0 % LAB HEMETOLOGY METHOD 06/19/2025 10:42 AM [facility] NRBC Absolute 0.00 <0.10 K/mcL LAB HEMETOLOGY METHOD 06/19/2025 10:[address] [facility] Blood Venous blood specimen / Unknown Venipuncture / Unknown 06/19/2025 5:45 AM EDT 06/19/2025 10:26 AM EDT us Hal Cole MD LAB BLOOD ORDERABLES Final Resul t [facility] [address] [place] [address], documented in this encounter Visit Diagnoses Diagnosis Anemia, unspecified Chronic kidney disease, unspecified documented in this encounter Care Teams Flat Lock Machine Operator Relationship Specialty Start Date End Date Hal Cole MD [address] [place] [address], [phone] PCP - General Family Medicine 09/15/24 documented as of this encounter
--- OUTSIDE RECORDS SUMMARY | 2025-06-26 23:11 | XMS_ITS | Encounter Summary ---
Author Organization [employer] [facility] Address [address] [place] [address] Care Team Providers Care Open Source Developer Name Role Phone Hal Cole MD Primary Care Provider [phone] Encounter Details Date Type Department Care Team (Late st Contact Info) Description 05/15/[address] [facility] - Main Lab [address] [place] [address] Hal Cole MD [address] [place] [address], [phone] Hypokalemia; Anemia in chronic kidney disease [...] Associated Diagnosis Comments COMPLETE BLOOD COUNT Routine 05/15/2025 6:04 AM EDT Hypokalemia Anemia in chronic kidney disease (CODE) COMPREHENSIVE METABOLIC PANEL Routine 05/15/2025 6:04 AM EDT Hypokalemia Anemia in chronic kidney disease (CODE) documented in this encounter Results * (ABNORMAL) Comprehensive metabolic panel (05/15/2025 6:04 AM EDT) Sodium 141 133 - 145 mmol/L LAB CHEMISTRY METHOD 05/15/2025 3:01 PM EDT [facility] Potassium 3.3(L) 3.5 - 5.5 mmol/L LAB CHEMISTRY METHOD 05/15/2025 3:01 PM [facility] Chloride 91(L) 96 - 110 mmol/L LAB CHEMISTRY METHOD 05/15/2025 3:01 PM [facility] CO2 41(HH) 21 - 32 mmol/L LAB CHEMISTRY METHOD 05/15/2025 3:01 PM [facility] Anion Gap 9 3 - 11 LAB CHEMISTRY METHOD 05/15/2025 3:01 PM [facility] Glucose 74 70 - 100 mg/dL LAB CHEMISTRY METHOD 05/15/2025 3:01 PM [facility] BUN 65(H) 5 - 25 mg/dL LAB CHEMISTRY METHOD 05/15/2025 3:01 PM [facility] Creatinine 1.80(H) 0.50 - 1.10 mg/dL LAB CHEMISTRY METHOD 05/15/2025 3:01 PM [facility] eGFR 29(L) >=60 mL/min/1. 73m2 LAB CHEMISTRY METHOD 05/15/2025 3:01 PM [facility] Comment:Calculation based on the Chronic Kidney Disease Epidemiology Collaboration (CKD-EPI) equation refit without adjustment for race. BUN/Creatinine Ratio 36.1 LAB CHEMISTRY METHOD 05/15/2025 3:01 PM [facility] Calcium 7.3(L) 8.5 - 10.5 mg/dL LAB CHEMISTRY METHOD 05/15/2025 3:01 PM [facility] AST (SGOT) 15 10 - 42 unit/L LAB CHEMISTRY METHOD 05/15/2025 3:01 PM [facility] ALT (SGPT) 8(L) 10 - 60 unit/L LAB CHEMISTRY METHOD 05/15/2025 3:01 PM [facility] Alkaline Phosphatase 68 42 - 121 unit/L LAB CHEMISTRY METHOD 05/15/2025 3:01 PM [facility] Total Protein 6.0 6.0 - 8.0 g/dL LAB CHEMISTRY METHOD 05/15/2025 3:01 PM EDT [facility] Albumin 2.9(L) 3.2 - 5.0 g/dL LAB CHEMISTRY METHOD 05/15/2025 3:01 PM EDT [facility] Total Bilirubin 0.4 0.0 - 1.4 mg/dL LAB CHEMISTRY METHOD 05/15/2025 3:01 PM EDT [facility] Blood Venous blood specimen / Unknown Venipuncture / Unknown 05/15/2025 6:04 AM EDT 05/15/2025 11:39 AM EDT us Hal Cole MD LAB BLOOD ORDERABLES Final Resul t [facility] [address] [place] [address], * (ABNORMAL) Complete blood count (05/15/2025 6:04 AM EDT) WBC 6.9 4.8 - 10.8 K/mcL LAB [facility]EMETOLOGY [facility] RBC 2.90(L) 3.80 - 4.80 M/mcL LAB HEMETOLOGY METHOD [facility] Hemoglobin 8.1(L) 11.5 - 16.0 g/dL LAB HEMETOLOGY METHOD 05/15/2025 1:15 PM EDT [facility] Hematocrit 28.4(L) 35.0 - 47.0 % LAB HEMETOLOGY METHOD 05/15/2025 1:15 PM EDT [facility] MCV 98.3(H) 79.0 - 98.0 FL LAB HEMETOLOGY METHOD [facility] MCH 28.0 27.0 - 32.0 pcg LAB HEMETOLOGY METHOD 05/15/2025 1:15 PM EDT [facility] MCHC 28.5(L) 32.0 - 37.0 g/dL LAB HEMETOLOGY METHOD 05/15/2025 1:15 PM EDT [facility] RDW 16.4(H) 11.0 - 15.0 % LAB HEMETOLOGY METHOD 05/15/2025 1:15 PM EDT [facility] Platelets 207 130 - 400 K/mcL LAB HEMETOLOGY METHOD 05/15/2025 1:15 PM EDT [facility] MPV 9.7 7.0 - 11.0 FL LAB HEMETOLOGY METHOD 05/15/2025 1:15 PM EDT [facility] NRBC 0.0 <1.0 % LAB HEMETOLOGY METHOD 05/15/2025 1:15 PM EDT [facility] NRBC Absolute 0.00 <0.10 K/mcL LAB HEMETOLOGY METHOD 05/15/2025 1:15 PM EDT [facility] Blood Venous blood specimen / Unknown Venipuncture / Unknown 05/15/2025 6:04 AM EDT 05/15/2025 11:39 AM EDT us Hal Cole MD LAB BLOOD ORDERABLES Final Resul t [facility] [address] [place] [address], documented in this encounter Visit Diagnoses Diagnosis Hypokalemia Hypopotassemia Anemia in chronic kidney disease (CODE) documented in this encounter Care Teams Open Source Developer Relationship Specialty Start Date End Date Hal Cole MD [address] [place] [address] [address], [phone] PCP - General Family Medicine 09/15/24 documented as of this encounter
--- OUTSIDE RECORDS SUMMARY | 2025-06-26 23:11 | XMS_ITS ---
Author Organization [facility] Care Team Providers Care [employer] Scientist Name Role Phone Isaura Nieto Unavailable Unavailable Joey, Isaura Unavailable Unavailable Rach, Mario Unavailable Unavailable Jose, January Unavailable UnavailCinda Ovalle Unavailable Unavailable Singh, Nuria Unavailable Unavailable Lord, Lili Unavailable Unavailable Harrison, Dom Unavailable Unavailable Gregg Diann Unavailable Unavailable Charley, Kathleen Unavailable Unavailable Kwaku Mantilla Unavailable Unavailable Hal Cole Unavailable Unavailable Lei, Eloina Unavailable Unavailable Grippin, Tamera Unavailable Unavailable Levheim, Carlee Unavailable Unavailable Teena, Lidya Unavailable Unavailable Lina, Selin Unavailable Unava ilable Apurva Magallon Unavailable Unavailable Allergies and adverse reactions Code CodeSystem Substance Reaction Severity StartDate Concern Status 5640 RXNORM Ibuprofen Moderate 05/13/2025 active 2670 RXNORM Codeine Moderate 05/13/2025 active Care Team Name Role Address Phone Organization Dates Hal Cole PCP [address] [facility] [address], [place], [address], [place] (Office): : : [facility] 06/06/2025 - 06/24/2025 Isaura Nieto [address] [place] [address] [address], [place], [address], [facility] (Office): : [facility] 06/06/2025 - 06/24/2025 Isaura Califon [address] [place] [address] [address], [place], [address], [facility] (Office): : [facility] 06/06/2025 - 06/24/2025 Mario Rach [address] [place] [address], [place], [address], [facility] (Office): : [facility] 06/06/2025 - 06/24/2025 Opal Garcia [address] [place] [address], [place], [address], [facility] (Office): : [facility] 06/06/2025 - 06/24/2025 Cinda Burton [address] [place], [address], [facility] (Office): : [facility] 06/06/2025 - 06/24/2025 Nuria Singh [address] [place] [address], [place], [address], [facility] (Office): [facility] 06/06/2025 - 06/24/2025 Lili Vallejo [address] [place] [address], [place], [address], [facility] (Office): : [facility] 06/06/2025 - 06/24/2025 Dom Terry [address] [place], [address], [facility] (Office): : [facility] 06/06/2025 - 06/24/2025 Diann Gregg [address] [place] [address], [address], [place] (Office): : : [facility] 06/06/2025 - 06/24/2025 Kathleen Whitehead [address] [place] [address], [facility], [place] (Office): : [facility] 06/06/2025 - 06/24/2025 Kwaku Mantilla [address] [place] [address], [address], [facility] (Office): : [facility] 06/06/2025 - 06/24/2025 Eloina Odom [address] [place] [address], [address], [place] (Office): : [facility] 06/06/2025 - 06/24/2025 Tamera Valenzuela [address] [place] [address], [address], [place] (Office): : [facility] 06/06/2025 - 06/24/2025 Carlee Amezcua [address] [place] [address], [address], [place] (Office): : [facility] 06/06/2025 - 06/24/2025 Lidya Dickinson [address] [place] [address], [address], [facility] (Office): : [facility] 06/06/2025 - 06/24/[address] [facility] [address], [place], [address], [place] (Office): : [facility] 06/06/2025 - 06/24/[address] [facility] [address], [place], [address], [place] (Office): : [facility] 06/06/2025 - 06/24/2025 Goals Section Goals Description Status Target Date Accept supplement as tolerated Active 1 Blood pressure will remain within patient's norm al limits Active 08/20/2025 Intake of meals greater than or equal to 80% or as tolerated Active 08/20/2025 Maintain weight 189lbs +/- < 5% gradual weight loss is acceptable/beneficial. Active 08/20/2025 Minimize risk for falls Active 08/20/20 25 Nutrition related labs at baseline for medical c onditions Active 08/20/2025 RESIDENT WILL BE ASSISTED WITH TURNING & POSITIO REBECCA Active 08/20/2025 Britney Advanced Directives will be honored and reevaluated as needed Active 08/20/2025 Britney Will accept care and medication as presc ribed Active 08/20/2025 Britney Will be discharged t o community setting when clinical and rehabilitation goals are met Active 08/20/2025 Britney Will express feeling s of adjustment to new surroundings by next review Active 08/20/2025 Britney will participate in activity pursuits such as: Playing Bingo, card games, crochets, music, r eading/nook, watch tv shows, movies, sports, conversation, outdoors, napping through NRD Active 08/20/2025 Skin to heal Active 08/20/2025 Will accept medication, treatment or procedure A ctive 08/20/2025 Will be free of complications related to diabete s Active 08/20/2025 Will be maintained in as keith an and dry a dignified state as possible Active 08/20/2025 Will comply with care routine/medical regimen Ac tive 08/20/2025 Will decrease/minimize skin breakdown risks Acti ve 08/20/2025 Will exhibit no acute cardia c distress such as complaints of chest pain, cyanosis, SOB, etc. Active 08/20/2025 Will express that pain management is within acce ptable limits Active 08/20/2025 Will have medication dose reduction/elimination as indicated Active 08/20/2025 Will have no acute complications of urinary cath eter use Active 08/20/2025 Will have no acute respiratory distress Active 08/20/2025 Will have no adverse effects related diuretic th erapy Active 08/20/2025 Will have no adverse effects related to steroid therapy Active 08/20/2025 Will have no complications related to bowel inco ntinence Active 08/20/2025 Will have no complications such as rash, dyspnea , anaphylaxis Active 08/20/2025 Will heal within the limits of the disease proce ss Active 08/20/2025 Will maintain adequate hydration Active 08/20/2025 Will maintain existing ADL self performance Acti ve 08/20/2025 Will remain free from complications related to C KD Active 08/20/2025 Will remain free from compli cations related to hyperkalemia thru next review. Active 08/20/2025 Will remain free from complications related to h ypothyroidism Active 08/20/2025 Will show no signs of dehydration Active 08/20/2025 Will tolerate diet, texture and fluid consistency without signs and symptoms of aspiration Active 08/20/2025 Will verbalize understanding of risks related to refusal/noncompliance Active 08/20/2025 Medications Section Medication Name Status Code CodeSystem Dose Route Frequency Admin Type Sig Text Start Date End Date Levothyroxine Sodium Oral Tablet aborted 200 mg Oral one time a day Routine Give 200 mg by mouth one time a day for THYROI D 05/29 Sodium Bicarbonate Oral Tablet aborted 650 mg Oral one time a day Routine Give 650 mg by mouth one time a day for SUPPLE MENT 05/29 Gemfibrozil Oral Tablet 600 MG aborted 890480 RXNORM 600 mg Oral two times a day Routine Give 600 mg by mouth two times a day for CHOLES TEROL 05/29 amLODIPine Besylate Oral Tablet 5 MG aborted 213900 RXNORM 5 mg Oral one time a day Routine Give 5 mg by mouth one time a day for HTN 05/29 Furosemide Oral Tablet 40 MG aborted 819674 RXNORM 40 mg Oral two times a day Routine Give 40 mg by mouth two times a day for diuret ic 05/29 Atorvastatin Calcium Oral Tablet 40 MG aborted 603456 RXNORM 40 mg Oral one time a day Routine Give 40 mg by mouth one time a day for HIGH CHOLES TEROL 05/29 Jardiance Oral Tablet 10 MG aborted 526424 4 RXNORM 10 mg Oral one time a day Routine Give 10 mg by mouth one time a day for DIABET IC 05/29 LORazepam Oral Tablet 0.5 MG aborted 785488 RXNORM 0.5 mg Oral two times a day Routine Give 0.5 mg by mouth two times a day for anxiet y 05/29 Ventolin HFA Inhalation Aerosol Solution 108 (90 Base) MCG/ACT aborted 034009 RXNORM 2 puff Inhalat ion as needed PRN 2 puff inhale orally every 6 hours as needed for SOB 05/29 Insulin Glargine Subcutaneous Solution Pen-injector 100 UNIT/ML aborted 481610 RXNORM 25 unit Subcuta neous one time a day Routine Inject 25 unit subcut aneous ly one time a day for diabet ic 05/29 Fleet Enema Enema 7-19 GM/118ML aborted 602864 RXNORM 1 unit Rectal as needed PRN Insert 1 unit rectal ly every 24 hours as needed for Consti pation Use only if Bisaco dyl Suppos itory is ineffe ctive 05/27 Bisacodyl Suppository 10 MG aborted 923459 RXNORM 1 suppos itory Rectal as needed PRN Insert 1 suppos itory rectal ly every 24 hours as needed for consti pation Use if Senna is Ineffe ctive 05/27 Senna Tablet 8.6 MG aborted 378191 RXNORM 1 tablet Oral as needed PRN Give 1 tablet by mouth every 24 hours as needed for Consti pation 05/27 Benzonatate Oral Capsule 100 MG aborted 314899 RXNORM 100 mg Oral as needed PRN Give 100 mg by mouth every 8 hours as needed for cough admini ster 3x daily as needed 05/29 Acetaminophen Oral Tablet 325 MG aborted 326037 RXNORM 650 mg Oral as needed PRN Give 650 mg by mouth every 4 hours as needed for Pain AND Give 650 mg by mouth every 4 hours as needed for Elevat ed Temper ature 05/29 829850 RXNORM 650 mg Oral as needed PRN Give 650 mg by mouth every 4 hours as needed for Pain AND Give 650 mg by mouth every 4 hours as needed for Elevat ed Temper ature 05/29 predniSONE Oral Tablet 10 MG aborted 19810128 RXNORM 40 mg Oral one time a day Routine Give 40 mg by mouth one time a day for COPD for 4 Days AND Give 30 mg by mouth one time a day for COPD for 4 Days AND Give 20 mg by mouth one time a day for COPD for 4 Days AND Give 10 mg by mouth one time a day for COPD for 4 Days 19810128 RXNORM 30 mg Oral one time a day Routine Give 40 mg by mouth one time a day for COPD for 4 Days AND Give 30 mg by mouth one time a day for COPD for 4 Days AND Give 20 mg by mouth one time a day for COPD for 4 Days AND Give 10 mg by mouth one time a day for COPD for 4 Days 19810128 RXNORM 20 mg Oral one time a day Routine Give 40 mg by mouth one time a day for COPD for 4 Days AND Give 30 mg by mouth one time a day for COPD for 4 Days AND Give 20 mg by mouth one time a day for COPD for 4 Days AND Give 10 mg by mouth one time a day for COPD for 4 Days 19810128 RXNORM 10 mg Oral one time a day Routine Give 40 mg by mouth one time a day for COPD for 4 Days AND Give 30 mg by mouth one time a day for COPD for 4 Days AND Give 20 mg by mouth one time a day for COPD for 4 Days AND Give 10 mg by mouth one time a day for COPD for 4 Days 05/29 Ammonium Lactate External Lotion 12 % aborted 875873 RXNORM n/a n/a Topical every day and evening shift Routine Apply to bilate ral legs topica lly every day and evenin g shift 05/29 Albuterol Sulfate Inhalation Nebulization Solution (2.5 MG/3ML) 0.083% aborted 393732 RXNORM 1 vial Inhalat ion every 4 hours Routine 1 vial inhale orally via nebuli zer every 4 hours for COPD 05/29 Albuterol Sulfate Nebulization Solution (2.5 MG/3ML) 0.083% aborted 178270 RXNORM 1 vial Inhalat ion as needed PRN 1 vial inhale orally via nebuli zer every 4 hours as needed for wheezi ng/SOB 05/29 LORazepam Oral Tablet 0.5 MG aborted 778552 RXNORM 0.5 mg Oral as needed PRN Give 0.5 mg by mouth every 6 hours as needed for anxiet y for 14 Days 05/29 Ipratropium-A lbuterol Solution 0.5-2.5 (3) MG/3ML aborted 674285 2 RXNORM 1 vial Inhalat ion as needed PRN 1 vial inhale orally via nebuli zer every 6 hours as needed for Wheeze ;Short ness of Breath 06/24 Levothyroxine Sodium Oral Tablet active 200 mg Oral one time a day Routine Give 200 mg by mouth one time a day for THYROI D 2024 - Sodium Bicarbonate Oral Tablet active 650 mg Oral one time a day Routine Give 650 mg by mouth one time a day for SUPPLE MENT 2024 - Gemfibrozil Oral Tablet 600 MG active 427913 RXNORM 600 mg Oral two times a day Routine Give 600 mg by mouth two times a day for CHOLES TEROL 2024 - amLODIPine Besylate Oral Tablet 5 MG active 087756 RXNORM 5 mg Oral one time a day Routine Give 5 mg by mouth one time a day for HTN 2024 - Furosemide Oral Tablet 40 MG active 996768 RXNORM 40 mg Oral two times a day Routine Give 40 mg by mouth two times a day for diuret ic 2024 - Acetaminophen Oral Tablet 500 MG aborted RXNORM 1 tablet Oral as needed PRN Give 1 tablet by mouth every 4 hours as needed for Pain Do not exceed 3 grams in 24 hours AND Give 1 tablet by mouth every 4 hours as needed for Elevat ed temper ature of 100.4 or greate r Do not exceed 3 grams in 24 hours 06/24 RXNORM 1 tablet Oral as needed PRN Give 1 tablet by mouth every 4 hours as needed for Pain Do not exceed 3 grams in 24 hours AND Give 1 tablet by mouth every 4 hours as needed for Elevat ed temper ature of 100.4 or greate r Do not exceed 3 grams in 24 hours 06/24 Fleet Enema Enema 7-19 GM/118ML aborted 901929 RXNORM 1 unit Rectal as needed PRN Insert 1 unit rectal ly every 24 hours as needed for Consti pation Use only if Bisaco dyl Suppos itory is ineffe ctive 06/24 Bisacodyl Suppository 10 MG aborted 970233 RXNORM 1 suppos itory Rectal as needed PRN Insert 1 suppos itory rectal ly every 24 hours as needed for consti pation Use if Senna is Ineffe ctive 06/24 Senna Tablet 8.6 MG aborted 526140 RXNORM 1 tablet Oral as needed PRN Give 1 tablet by mouth every 24 hours as needed for Consti pation 06/24 Benzonatate Oral Capsule 100 MG aborted 258602 RXNORM 100 mg Oral as needed PRN Give 100 mg by mouth every 8 hours as needed for cough admini ster 3x daily as needed 06/24 Jardiance Oral Tablet 10 MG active 877578 4 RXNORM 10 mg Oral one time a day Routine Give 10 mg by mouth one time a day for DIABET IC 2024 - Ventolin HFA Inhalation Aerosol Solution 108 (90 Base) MCG/ACT active 389608 RXNORM 2 puff Inhalat ion as needed PRN 2 puff inhale orally every 6 hours as needed for SOB 2024 - Insulin Glargine Subcutaneous Solution Pen-injector 100 UNIT/ML active 680617 RXNORM 25 unit Subcuta neous at bedtime Routine Inject 25 unit subcut aneous ly at bedtim e for diabet ic 2024 - Ferrous Sulfate Oral Tablet active 325 mg Oral one time a day Routine Give 325 mg by mouth one time a day for anemia 2024 - Sertraline HCl Oral Tablet active 75 mg Oral one time a day Routine Give 75 mg by mouth one time a day for Depres jasbir 2024 - LORazepam Oral Tablet 0.5 MG active RXNORM 1 tablet Oral as needed PRN Give 1 tablet by mouth every 6 hours as needed for anxiet y for 14 Days AND Give 1 tablet by mouth two times a day for Anxiet y 06/20 RXNORM 1 tablet Oral two times a day Routine Give 1 tablet by mouth every 6 hours as needed for anxiet y for 14 Days AND Give 1 tablet by mouth two times a day for Anxiet y 2024 - predniSONE Oral Tablet 10 MG aborted 19810128 RXNORM 40 mg Oral one time a day Routine Give 40 mg by mouth one time a day for COPD for 4 Days AND Give 3 mg by mouth one time a day for COPD for 4 Days AND Give 20 mg by mouth one time a day for COPD for 4 Days AND Give 10 mg by mouth one time a day for COPD for 4 Days 19810128 RXNORM 3 mg Oral one time a day Routine Give 40 mg by mouth one time a day for COPD for 4 Days AND Give 3 mg by mouth one time a day for COPD for 4 Days AND Give 20 mg by mouth one time a day for COPD for 4 Days AND Give 10 mg by mouth one time a day for COPD for 4 Days 19810128 RXNORM 20 mg Oral one time a day Routine Give 40 mg by mouth one time a day for COPD for 4 Days AND Give 3 mg by mouth one time a day for COPD for 4 Days AND Give 20 mg by mouth one time a day for COPD for 4 Days AND Give 10 mg by mouth one time a day for COPD for 4 Days 19810128 RXNORM 10 mg Oral one time a day Routine Give 40 mg by mouth one time a day for COPD for 4 Days AND Give 3 mg by mouth one time a day for COPD for 4 Days AND Give 20 mg by mouth one time a day for COPD for 4 Days AND Give 10 mg by mouth one time a day for COPD for 4 Days 06/06 Lokelma Oral Packet 10 GM active 355591 7 RXNORM 1 packet Oral one time a day Routine Give 1 packet by mouth one time a day for LOW K 2024 - Insulin Lispro Subcutaneous Solution Cartridge 100 UNIT/ML active 272958 4 RXNORM n/a n/a Subcuta neous three times a day Routine Inject as per gabino adame scale: if 200 - 250 = 2 units; 251 - 300 = 4 units; 301 - 350 = 6 units; 351 - 400 = 8 units CALL MD IF FINGER STICK IS GREATE R THAN 400, subcut aneous ly three times a day for DIABET ES 2024 - Ammonium Lactate External Lotion 12 % active 536610 RXNORM n/a n/a Topical every day and evening shift Routine Apply to bilate ral legs topica lly every day and evenin g shift for Rash 2024 - Cephalexin Capsule 500 MG complete d 244977 RXNORM 1 capsul e Oral two times a day Routine Give 1 capsul e by mouth two times a day for UTI for 7 Days 06/13 Lipitor Tablet 40 MG active 627694 RXNORM 1 tablet Oral at bedtime Routine Give 1 tablet by mouth at bedtim e for HLD Avoid grapef ruit juice 2024 - hydrOXYzine HCl Oral Tablet 25 MG complete d 967115 RXNORM 1 tablet Oral one time only One Time Only Give 1 tablet by mouth one time only for anxiet y for 1 Day 06/07 predniSONE Oral Tablet 10 MG complete d 19810128 RXNORM 40 mg Oral one time a day Routine Give 40 mg by mouth one time a day for COPD for 4 Days AND Give 30 mg by mouth one time a day for COPD for 4 Days AND Give 20 mg by mouth one time a day for COPD for 4 Days AND Give 10 mg by mouth one time a day for COPD for 4 Days 19810128 RXNORM 30 mg Oral one time a day Routine Give 40 mg by mouth one time a day for COPD for 4 Days AND Give 30 mg by mouth one time a day for COPD for 4 Days AND Give 20 mg by mouth one time a day for COPD for 4 Days AND Give 10 mg by mouth one time a day for COPD for 4 Days 19810128 RXNORM 20 mg Oral one time a day Routine Give 40 mg by mouth one time a day for COPD for 4 Days AND Give 30 mg by mouth one time a day for COPD for 4 Days AND Give 20 mg by mouth one time a day for COPD for 4 Days AND Give 10 mg by mouth one time a day for COPD for 4 Days 19810128 RXNORM 10 mg Oral one time a day Routine Give 40 mg by mouth one time a day for COPD for 4 Days AND Give 30 mg by mouth one time a day for COPD for 4 Days AND Give 20 mg by mouth one time a day for COPD for 4 Days AND Give 10 mg by mouth one time a day for COPD for 4 Days 06/22 Ipratropium-A lbuterol Solution 0.5-2.5 (3) MG/3ML aborted 293801 2 RXNORM 1 vial Inhalat ion four times a day Routine 1 vial inhale orally via nebuli zer four times a day for COPD Docume nt abnorm al lung sounds 06/20 Vitamin C Oral Tablet active 500 mg Oral one time a day Routine Give 500 mg by mouth one time a day 2024 - Multi-Vitamin Tablet active 1 tablet Oral one time a day Routine Give 1 tablet by mouth one time a day 2024 - LORazepam Oral Tablet 0.5 MG complete d RXNORM 1 tablet Oral one time only One Time Only Give 1 tablet by mouth one time only for anxiet y for 1 Day 06/21 Ipratropium-A lbuterol Solution 0.5-2.5 (3) MG/3ML active 468877 2 RXNORM 1 vial Inhalat ion every 6 hours Routine 1 vial inhale orally via nebuli zer every 6 hours for COPD Docume nt abnorm al lung sounds 2024 - Ferrous Sulfate Oral Tablet aborted 325 mg Oral one time a day Routine Give 325 mg by mouth one time a day for anemia 05/29 Sertraline HCl Oral Tablet aborted 75 mg Oral one time a day Routine Give 75 mg by mouth one time a day for mood 05/29 Insulin Lispro Subcutaneous Solution Cartridge 100 UNIT/ML aborted 803413 4 RXNORM n/a n/a Subcuta neous three times a day Routine Inject as per gabino adame scale: if 200 - 250 = 2 units; 251 - 300 = 4 units; 301 - 350 = 6 units; 351 - 400 = 8 units CALL MD IF FINGER STICK IS GREATE R THAN 400, subcut aneous ly three times a day for DIABET ES 05/29 Mental Status Section Date Assessment Total Score Description 06/11/2025 [facility] 15 cognitively int act CAM 0 No delirium ind icated PHQ-9 00 05/27/2025 [facility] 15 cognitively int act CAM 0 No delirium ind icated PHQ-9 00 Problems Problem # Description Date of onset Resolved Date Code CodeSystem Concern Status 1 DIFFICULTY IN WALKING, NOT ELSEWHERE CLASSIFIED [address] active 2 INFECTION AND INFLAMMATORY REACTION DUE TO INDWELLING URETHRAL CATHETER, SUBSEQUENT ENCOUNTER [address] active 3 URINARY TRACT INFECTION, SITE NOT SPECIFIED [address] active 4 WEAKNESS [address] active 5 CHRONIC DIASTOLIC (CONGESTIVE) HEART FAILURE [address] active 6 CHRONIC RESPIRATORY FAILURE WITH HYPOXIA [address] active 7 ACUTE KIDNEY FAILURE, UNSPECIFIED 5 06/04/[address] completed 8 ANEMIA IN CHRONIC KIDNEY DISEASE [address] active 9 ANXIETY DISORDER, UNSPECIFIED [address] active 10 CHRONIC KIDNEY DISEASE, STAGE 4 (SEVERE) [address] active 11 CHRONIC OBSTRUCTIVE PULMONARY DISEASE WITH (ACUTE) EXACERBATION [address] active 12 DYSPHAGIA, OROPHARYNGEAL PHASE [address] active 13 ESSENTIAL (PRIMARY) HYPERTENSION [address] active 14 HYPERLIPIDEMIA, UNSPECIFIED [address] active 15 HYPOKALEMIA 5 06/04/[address] completed 16 HYPOTHYROIDISM, UNSPECIFIED [address] active 17 METHICILLIN RESISTANT STAPHYLOCOCCUS AUREUS INFECTION, UNSPECIFIED SITE 5 06/04/[address] completed 18 MORBID (SEVERE) OBESITY WITH ALVEOLAR HYPOVENTILATION [address] active 19 MUSCLE WEAKNESS (GENERALIZED) [address] active 20 NON-ST ELEVATION (NSTEMI) MYOCARDIAL INFARCTION [address] active 21 PNEUMONIA, UNSPECIFIED ORGANISM 5 06/04/[address] completed 22 PULMONARY HYPERTENSION, UNSPECIFIED 5 06/04/[address] completed 23 RETENTION OF URINE, UNSPECIFIED 5 06/04/[address] completed 24 TYPE 2 DIABETES MELLITUS WITHOUT COMPLICATIONS [address] active Reason for Referral No Reasons for Referral Entered Social History Social History Observation Description Start Date End Date Code Code System Current Smoking Status Tobacco smoking consumption unknown 139246889 SNOMED CT Sex Assigned At Female 1945 89994-8 [facility] Gender Identity Female [id number] Vital Signs Code Code System Vitals Name Values and Units Timing Information 9279-1 LOINC Respiratory Rate Value=20.0 Units=/m in 06/24/2025 8462-4 LOINC Blood Pressure-Diastolic Value=58 Un its=mmHg 06/24/2025 8480-6 LOINC Blood Pressure-Systolic Mglpb=740 Un its=mmHg 06/24/2025 8310-5 LOINC Body Temperature Value=97.0 Units= F 06/24/2025 8867-4 [facility] Heart rate Value=65.0 Units=/min 18941-3 [facility] O2 % BldC Oximetry Value=96.0 Units= % 06/24/2025 2339-0 [facility] Blood Sugar Luglh=229.0 Units=mg/dL 06/24/2025 36421-4 [facility] Pain Level Value=0.0 06/24/2025 76452-9 [facility] Weight Ezaql=491.0 Units=Lbs 8302-2 [facility] Height Value=62.0 Units=Inches 05/14/2025
--- OUTSIDE RECORDS SUMMARY | 2025-06-26 23:11 | XMS_ITS | Clinical Summary ---
Author Organization [address] Address [address] [place] [address] Phone Care Team Providers Care Nitro Man Name Role Phone Hal Cole MD Primary Care Provider [phone] Encounters Date Type Department Care Team Description 06/23/2025 Lab Requisition [facility] - Main Lab [address] [place] [phone] Hal Cole MD Anemia, unspecified; Chronic kidney disease, unspecified 06/16/[address] [facility] Main Lab [address] [place] [phone] Hal Cole MD Anemia, unspecified; Chronic kidney disease, unspecified 06/10/2025 Lab Requisition [facility] Lab [address] [place] [address] Hal Cole MD Anemia, unspecified; Chronic kidney disease, unspecified 06/06/2025 Lab Requisition [facility] Lab [address] [place] [phone] Hal Cole MD Anemia, unspecified; Chronic kidney disease, unspecified 05/26/[address] [facility] Main Lab [address] [place] [address] Hal Cole MD Hypokalemia; Anemia in chronic kidney disease (CODE) 05/25/[address] [facility] Main Lab [address] [place] [address] Hal Cole MD Hypokalemia 05/23/[address] [facility] Main Lab [address] [place] [phone] Hal Cole MD Chronic kidney disease, unspecified 05/20/2025 Lab Requisition [facility] - Main Lab [address] [place] [phone] Hal Cole MD Hypokalemia; Anemia in chronic kidney disease (CODE) 05/17/2025 Lab Requisition [facility] - Main Lab [address] [place] [phone] Hal Cole MD Hypokalemia 05/15/2025 Lab Requisition [facility] - Main Lab [address] [place] [phone] Hal Cole MD Hypokalemia; Anemia in chronic kidney disease (CODE) from Last 3 Months Social History Tobacco Use Types Packs/Day Years Used Date Smoking Tobacco: Never Assessed Comments Unknown Sex and Gender Information Value Date Recorded Sex Assigned at Not on file Legal Sex Female 8:35 PM EST Gender Identity Not on file Sexual Orientation Not on file Plan of Treatment Health Maintenance Due Date Last Done Comments Diabetes: Annual Foot Exam 1955 Diabetes: Annual Retina Eye Exam 1955 DTaP,Tdap,and Td Vaccines (1 - Tdap) 1966 Pneumococcal Vaccine: 50+ Years (1 of 2 - PCV) 1966 Zoster Vaccines (1 of 2) 1997 RSV Immunization Adult Patients (1 - 1-dose 75+ series) 2022 Cholesterol Screening (Lipid Panel) 09/27/2022 Falls Risk Assessment 09/27/2022 Hepatitis C Screening 09/27/2022 Medicare Annual Wellness Visit 09/27/2022 Osteoporosis Screening (Bone Density Screening) 09/27/2022 Social Influencers of Health Screening 09/27/2022 Depression Screening 10/26/2024 Diabetes: Annual Urine Albumin-Creatinine Ratio (uACR) 05/19/2025 Diabetes: Blood Sugar Control Test (HGBA1C) 05/19/2025 COVID-19 Vaccine ( - season) 2025 Influenza Vaccine (#1) 2025 11/10/2021 Diabetes: Annual GFR (Glomerular Filtration Rate) 06/19/2026 06/19/2025, 06/12/2025, 06/06/2025, Additional history exists Hypertension/CHF/CAD Annual BMP Blood Test 06/19/2026 06/19/2025, 06/12/2025, 06/06/2025, Additional history exists HIB Vaccines Aged Out [...] Associated Diagnosis Comments BASIC METABOLIC PANEL Routine 06/19/2025 5:45 AM EDT Anemia, unspecified Chronic kidney disease, unspecified COMPLETE BLOOD COUNT Routine 06/19/2025 5:45 AM EDT Anemia, unspecified Chronic kidney disease, unspecified BASIC METABOLIC PANEL Routine 06/12/2025 6:01 AM EDT Anemia, unspecified Chronic kidney disease, unspecified COMPLETE BLOOD COUNT Routine 06/12/2025 6:01 AM EDT Anemia, unspecified Chronic kidney disease, unspecified BASIC METABOLIC PANEL Routine 06/06/2025 5:50 AM EDT Anemia, unspecified Chronic kidney disease, unspecified COMPLETE BLOOD COUNT Routine 06/06/2025 5:50 AM EDT Anemia, unspecified Chronic kidney disease, unspecified BASIC METABOLIC PANEL Routine 05/25/2025 5:43 AM EDT Hypokalemia BASIC METABOLIC PANEL Routine 05/24/2025 5:08 AM EDT Chronic kidney disease, unspecified COMPLETE BLOOD COUNT Routine 05/22/2025 6:46 AM EDT Hypokalemia Anemia in chronic kidney disease (CODE) BASIC METABOLIC PANEL Routine 05/22/2025 6:46 AM EDT Hypokalemia Anemia in chronic kidney disease (CODE) ELECTROLYTE PANEL Routine 05/18/2025 6:1 5 AM EDT Hypokalemia COMPREHENSIVE METABOLIC PANEL Routine 05/15/2025 6:04 AM EDT Hypokalemia Anemia in chronic kidney disease (CODE) COMPLETE BLOOD COUNT Routine 05/15/2025 6:04 AM EDT Hypokalemia Anemia in chronic kidney disease (CODE) from Last 3 Months Results * (ABNORMAL) Complete blood count (06/19/2025 5:45 AM EDT) Only the most recent of5 resultswithin the time period is included. WBC 9.4 4.8 - 10.8 K/mcL LAB HEMETOLOGY METHOD 06/19/2025 10:42 AM EDT [facility] RBC 3.30(L) 3.80 - 4.80 M/mcL LAB HEMETOLOGY METHOD 06/19/2025 10:42 AM EDT [facility] Hemoglobin 9.1(L) 11.5 - 16.0 g/dL LAB HEMETOLOGY METHOD 06/19/2025 10:42 AM EDT [facility] Hematocrit 30.2(L) 35.0 - 47.0 % LAB HEMETOLOGY METHOD 06/19/2025 10:42 AM EDT [facility] MCV 92.1 79.0 - 98.0 FL LAB HEMETOLOGY METHOD 06/19/2025 10:42 AM EDT [facility] MCH 27.7 27.0 - 32.0 pcg LAB HEMETOLOGY METHOD 06/19/2025 10:42 AM EDT [facility] MCHC 30.1(L) 32.0 - 37.0 g/dL LAB HEMETOLOGY METHOD 06/19/2025 10:42 AM EDT [facility] RDW 14.6 11.0 - 15.0 % LAB HEMETOLOGY METHOD 06/19/2025 10:42 AM EDT [facility] Platelets 305 130 - 400 K/mcL LAB HEMETOLOGY METHOD 06/19/2025 10:42 AM EDT [facility] MPV 9.5 7.0 - 11.0 FL LAB HEMETOLOGY METHOD 06/19/2025 10:42 AM EDT [facility] NRBC 0.0 <1.0 % LAB HEMETOLOGY METHOD 06/19/2025 10:42 AM EDT [facility] NRBC Absolute 0.00 <0.10 K/mcL LAB HEMETOLOGY METHOD 06/19/2025 10:42 AM T [facility] Blood Venous blood specimen / Unknown Venipuncture / Unknown 06/19/2025 5:45 AM EDT 06/19/2025 10:26 AM EDT us Hal Cole MD LAB BLOOD ORDERABLES Final Resul t [facility] LAB [address] [place] [address], * (ABNORMAL) Basic metabolic panel (06/19/2025 5:45 AM EDT) Only the most recent of6 resultswithin the time period is included. Sodium 140 133 - 145 mmol/L LAB CHEMISTRY METHOD 06/19/2025 11:23 AM [facility] Potassium 3.4(L) 3.5 - 5.5 mmol/L LAB CHEMISTRY METHOD 06/19/2025 11:23 AM [facility] LAB Chloride 100 96 - 110 mmol/L LAB CHEMISTRY METHOD 06/19/2025 11:23 AM [facility] CO2 29 21 - 32 mmol/L LAB CHEMISTRY METHOD 06/19/2025 11:23 AM [facility] Anion Gap 11 3 - 11 LAB CHEMISTRY METHOD 06/19/2025 11:23 AM [facility] Glucose 203(H) 70 - 100 mg/dL LAB CHEMISTRY METHOD 06/19/2025 11:23 AM [facility] BUN 88(H) 5 - 25 mg/dL LAB CHEMISTRY METHOD 06/19/2025 11:23 AM [facility] Creatinine 1.43(H) 0.50 - 1.10 mg/dL LAB CHEMISTRY METHOD 06/19/2025 11:23 AM [facility] LAB eGFR 38(L) >=60 mL/min/1. 73m2 LAB CHEMISTRY METHOD 06/19/2025 11:23 AM [facility] LAB Comment:Calculation based on the Chronic Kidney Disease Epidemiology Collaboration (CKD-EPI) equation refit without adjustment for race. BUN/Creatinine Ratio 61.5 LAB CHEMISTRY METHOD 06/19/2025 11:23 AM [facility] LAB Calcium 7.7(L) 8.5 - 10.5 mg/dL LAB CHEMISTRY METHOD 06/19/2025 11:23 AM [facility] LAB Blood Venous blood specimen / Unknown Venipuncture / Unknown 06/19/2025 5:45 AM EDT 06/19/2025 10:26 AM EDT us Hal Kelsey MD LAB BLOOD ORDERABLES Final Resul t Performing Organization Address [facility]/ZIP Co de Phone Number [facility] LAB [address] [place] [address], [place] [phone] * (ABNORMAL) Electrolyte panel (05/18/2025 6:15 AM EDT) Sodium 140 133 - 145 mmol/L LAB CHEMISTRY METHOD 05/18/2025 10:19 AM EDT [facility] Potassium 3.8 3.5 - 5.5 mmol/L LAB CHEMISTRY METHOD 05/18/2025 10:19 AM EDT [facility] Chloride 97 96 - 110 mmol/L LAB CHEMISTRY METHOD 05/18/2025 10:19 AM EDT [facility] CO2 38(H) 21 - 32 mmol/L LAB CHEMISTRY METHOD 05/18/2025 10:19 AM EDT [facility] Anion Gap 5 3 - 11 LAB CHEMISTRY METHOD 05/18/2025 10:19 AM T [facility] Blood Venous blood specimen / Unknown Venipuncture / Unknown 05/18/2025 6:15 AM EDT 05/18/2025 9:39 AM EDT Hal Cole MD LAB BLOOD ORDERABLES Final Resul t Performing Organization Address [facility]/ZIP Co de Phone Number [facility] [address] [place] [address], [place] [phone] * (ABNORMAL) Comprehensive metabolic panel (05/15/2025 6:04 AM EDT) Sodium 141 133 - 145 mmol/L LAB CHEMISTRY METHOD 05/15/2025 3:01 PM EDT [facility] Potassium 3.3(L) 3.5 - 5.5 mmol/L LAB CHEMISTRY METHOD 05/15/2025 3:01 PM EDT [facility] Chloride 91(L) 96 - 110 [...] 10.5 mg/dL LAB CHEMISTRY METHOD 05/15/2025 3:01 [facility] AST (SGOT) 15 10 - 42 unit/L LAB CHEMISTRY METHOD 05/15/2025 3:01 [facility] ALT (SGPT) 8(L) 10 - 60 unit/L LAB CHEMISTRY METHOD 05/15/2025 3:01 PM [facility] Alkaline Phosphatase 68 42 - 121 unit/L LAB CHEMISTRY METHOD 05/15/2025 3:01 PM [facility] Total Protein 6.0 6.0 - 8.0 g/dL LAB CHEMISTRY METHOD 05/15/2025 3:01 PM EDT [facility] Albumin 2.9(L) 3.2 - 5.0 g/dL LAB CHEMISTRY METHOD 05/15/2025 3:01 PM EDT [facility] Total Bilirubin 0.4 0.0 - 1.4 mg/dL LAB CHEMISTRY METHOD 05/15/2025 3:01 PM EDT [facility] Blood Venous blood specimen / Unknown Venipuncture / Unknown 05/15/2025 6:04 AM EDT 05/15/2025 11:39 AM EDT us Hal Cole MD LAB BLOOD ORDERABLES Final Resul t [facility] ([facility]) [facility] [address] [place] [address], [place] [phone] from Last 3 Months Insurance MEDICAID - [place] MEDICARE Care Teams Nitro Man Relationship Specialty Start Date End Date Hal Cole MD [address] [place] [address], [phone] PCP - General Family Medicine 09/15/24
--- OUTSIDE RECORDS SUMMARY | 2025-06-26 23:11 | XMS_ITS | Encounter Summary ---
Author Organization [employer] Address [address] [place] [address] Care Team Providers Care Application Systems Engineer Name Role Phone Hal Cole MD Primary Care Provider [phone] Encounter Details Date Type Department Care Team (Late st Contact Info) Description 06/06/2025 Lab Requisition [facility] - Main Lab [address] [place] [address] Hal Cole MD [address] [place] [address], [phone] Anemia, unspecified; Chronic kidney disease, unspecified [...] Associated Diagnosis Comments COMPLETE BLOOD COUNT Routine 06/06/2025 5:50 AM EDT Anemia, unspecified Chronic kidney disease, unspecified BASIC METABOLIC PANEL Routine 06/06/2025 5:50 AM EDT Anemia, unspecified Chronic kidney disease, unspecified documented in this encounter Results * (ABNORMAL) Basic metabolic panel (06/06/2025 5:50 AM EDT) Sodium 138 133 - 145 mmol/L LAB CHEMISTRY METHOD 06/06/2025 8:55 AM EDT [facility] Potassium 3.7 3.5 - 5.5 mmol/L LAB CHEMISTRY METHOD 06/06/2025 8:55 AM EDT [facility] Chloride 101 96 - 110 mmol/L LAB CHEMISTRY METHOD 06/06/2025 8:55 AM [facility] LAB CO2 30 21 - 32 mmol/L LAB CHEMISTRY METHOD 06/06/2025 8:55 AM [facility] LAB Anion Gap 7 3 - 11 LAB CHEMISTRY METHOD 06/06/2025 8:55 AM [facility] LAB Glucose 165(H) 70 - 100 mg/dL LAB CHEMISTRY METHOD 06/06/2025 8:55 AM [facility] BUN 51(H) 5 - 25 mg/dL LAB CHEMISTRY METHOD 06/06/2025 8:55 AM [facility] LAB Creatinine 1.75(H) 0.50 - 1.10 mg/dL LAB CHEMISTRY METHOD 06/06/2025 8:55 AM [facility] LAB eGFR 30(L) >=60 mL/min/1. 73m2 LAB CHEMISTRY METHOD 06/06/2025 8:55 AM [facility] LAB Comment:Calculation based on the Chronic Kidney Disease Epidemiology Collaboration (CKD-EPI) equation refit without adjustment for race. BUN/Creatinine Ratio 29.1 LAB CHEMISTRY METHOD 06/06/2025 8:55 AM [facility] LAB Calcium 8.1(L) 8.5 - 10.5 mg/dL LAB CHEMISTRY METHOD 06/06/2025 8:55 AM [facility] LAB Blood Venous blood specimen / Unknown Venipuncture / Unknown 06/06/2025 5:50 AM EDT 06/06/2025 8:01 AM EDT us Hal Cole MD LAB BLOOD ORDERABLES Final Resul t [facility] [address] [place] [address], * (ABNORMAL) Complete blood count (06/06/2025 5:50 AM EDT) [facility] WBC 9.1 4.8 - 10.8 K/mcL LAB HEMETOLOGY METHOD 06/06/2025 8:31 AM [facility] RBC 3.30(L) 3.80 - 4.80 M/mcL LAB HEMETOLOGY METHOD 06/06/2025 8:31 AM [facility] Hemoglobin 9.2(L) 11.5 - 16.0 g/dL LAB HEMETOLOGY METHOD 06/06/2025 8:31 AM [facility] Hematocrit 31.1(L) 35.0 - 47.0 % LAB HEMETOLOGY METHOD 06/06/2025 8:31 AM [facility] LAB MCV 93.7 79.0 - 98.0 FL LAB HEMETOLOGY METHOD 06/06/2025 8:31 AM [facility] MCH 27.7 27.0 - 32.0 pcg LAB HEMETOLOGY METHOD 06/06/2025 8:31 AM [facility] MCHC 29.6(L) 32.0 - 37.0 g/dL LAB HEMETOLOGY METHOD 06/06/2025 8:31 AM [facility] RDW 14.7 11.0 - 15.0 % LAB HEMETOLOGY METHOD 06/06/2025 8:31 AM [facility] LAB Platelets 248 130 - 400 K/mcL LAB HEMETOLOGY METHOD 06/06/2025 8:31 AM [facility] LAB MPV 10.0 7.0 - 11.0 FL LAB HEMETOLOGY METHOD 06/06/2025 8:31 AM [facility] NRBC 0.0 <1.0 % LAB HEMETOLOGY METHOD 06/06/2025 8:31 AM [facility] NRBC Absolute 0.00 <0.10 K/mcL LAB HEMETOLOGY METHOD 06/06/2025 8:31 AM EDT [facility] Blood Venous blood specimen / Unknown Venipuncture / Unknown 06/06/2025 5:50 AM EDT 06/06/2025 8:01 AM EDT us Hal Cole MD LAB BLOOD ORDERABLES Final Resul t [facility] [address] [place] [address], documented in this encounter Visit Diagnoses Diagnosis Anemia, unspecified Chronic kidney disease, unspecified documented in this encounter Care Teams Application Systems Engineer Relationship Specialty Start Date End Date Hal Cole MD [address] [place] [address], [phone] PCP - General Family Medicine 09/15/24 documented as of this encounter
--- OUTSIDE RECORDS SUMMARY | 2025-06-26 23:11 | XMS_ITS | Encounter Summary ---
Author Organization [employer] Address [address] [place] [address] Care Team Providers Care Sole Edge Inker Machine Name Role Phone Hal Cole MD Primary Care Provider [phone] Encounter Details Date Type Department Care Team (Late st Contact Info) Description 06/10/2025 Lab Requisition [facility] - Main Lab [address] [place] [address] Hal Cole MD [address] [place] [address], [phone] Anemia, unspecified; Chronic kidney disease, unspecified [...] Associated Diagnosis Comments COMPLETE BLOOD COUNT Routine 06/12/2025 6:01 AM EDT Anemia, unspecified Chronic kidney disease, unspecified BASIC METABOLIC PANEL Routine 06/12/2025 6:01 AM EDT Anemia, unspecified Chronic kidney disease, unspecified documented in this encounter Results * (ABNORMAL) Basic metabolic panel (06/12/2025 6:01 AM EDT) Sodium 137 133 - 145 mmol/L LAB CHEMISTRY METHOD 06/12/2025 1:43 PM EDT [facility] Potassium 3.8 3.5 - 5.5 mmol/L LAB CHEMISTRY METHOD 06/12/2025 1:43 PM EDT [facility] Chloride 99 96 - 110 mmol/L LAB CHEMISTRY METHOD 06/12/2025 1:43 PM EDT [facility] CO2 27 21 - 32 mmol/L LAB CHEMISTRY METHOD 06/12/2025 1:43 PM [facility] Anion Gap 11 3 - 11 LAB CHEMISTRY METHOD 06/12/2025 1:43 PM [facility] Glucose 93 70 - 100 mg/dL LAB CHEMISTRY METHOD 06/12/2025 1:43 PM T [facility] BUN 73(H) 5 - 25 mg/dL LAB CHEMISTRY METHOD 06/12/2025 1:43 PM [facility] Creatinine 1.49(H) 0.50 - 1.10 mg/dL LAB CHEMISTRY METHOD 06/12/2025 1:43 PM [facility] eGFR 36(L) >=60 mL/min/1. 73m2 LAB CHEMISTRY METHOD 06/12/2025 1:43 PM T [facility] Comment:Calculation based on the Chronic Kidney Disease Epidemiology Collaboration (CKD-EPI) equation refit without adjustment for race. BUN/Creatinine Ratio 49.0 LAB CHEMISTRY METHOD 06/12/2025 1:43 PM [facility] Calcium 8.0(L) 8.5 - 10.5 mg/dL LAB CHEMISTRY METHOD 06/12/2025 1:43 PM T [facility] Blood Venous blood specimen / Unknown Venipuncture / Unknown 06/12/2025 6:01 AM EDT 06/12/2025 11:14 AM EDT us Hal Cole MD LAB BLOOD ORDERABLES Final Resul t [facility] [address] [place] [address], * (ABNORMAL) Complete blood count (06/12/2025 6:01 AM EDT) [facility] WBC 8.7 4.8 - 10.8 K/mcL LAB HEMETOLOGY METHOD 06/12/2025 1:24 PM EDT [facility] RBC 3.30(L) 3.80 - 4.80 M/mcL LAB HEMETOLOGY METHOD 06/12/2025 1[facility] Hemoglobin 9.3(L) 11.5 - 16.0 g/dL LAB HEMETOLOGY METHOD 06/12/2025 1:24 PM [facility] Hematocrit 30.7(L) 35.0 - 47.0 % LAB HEMETOLOGY METHOD 06/12/2025 1:24 PM [facility] MCV 91.9 79.0 - 98.0 FL LAB HEMETOLOGY METHOD 06/12/2025 1:24 PM [facility] MCH 27.8 27.0 - 32.0 pcg LAB HEMETOLOGY METHOD 06/12/2025 1:24 PM [facility] MCHC 30.3(L) 32.0 - 37.0 g/dL LAB HEMETOLOGY METHOD 06/12/2025 1:24 PM [facility] RDW 14.6 11.0 - 15.0 % LAB HEMETOLOGY METHOD 06/12/2025 1:24 PM [facility] Platelets 348 130 - 400 K/mcL LAB HEMETOLOGY METHOD 06/12/2025 1:24 PM [facility] MPV 8.8 7.0 - 11.0 FL LAB HEMETOLOGY METHOD 06/12/2025 1:24 PM [facility] NRBC 0.0 <1.0 % LAB HEMETOLOGY METHOD 06/12/2025 1:24 PM [facility] NRBC Absolute 0.00 <0.10 K/mcL LAB HEMETOLOGY METHOD 06/12/2025 1:24 PM EDT [facility] Blood Venous blood specimen / Unknown Venipuncture / Unknown 06/12/2025 6:01 AM EDT 06/12/2025 11:14 AM EDT us Hal Cole MD LAB BLOOD ORDERABLES Final Resul t [facility] [address] [place] [address], documented in this encounter Visit Diagnoses Diagnosis Anemia, unspecified Chronic kidney disease, unspecified documented in this encounter Care Teams Sole Edge Inker Machine Relationship Specialty Start Date End Date Hal Cole MD [address] [place] [address], [phone] PCP - General Family Medicine 09/15/24 documented as of this encounter
--- OUTSIDE RECORDS SUMMARY | 2025-06-26 23:11 | XMS_ITS | Encounter Summary ---
Author Organization [employer] Address [address] [place] [address] Care Team Providers Care Geospatial Technician Name Role Phone Hal Cole MD Primary Care Provider [phone] Encounter Details Date Type Department Care Team (Late st Contact Info) Description 05/26/2025 Lab Requisition [facility] - Main Lab [address] [facility] [place] [address] Hal Cole MD [address] [place] [address] [address] [place], [phone] Hypokalemia; Anemia in chronic kidney disease [...] on file documented as of this encounter Visit Diagnoses Diagnosis Hypokalemia Hypopotassemia Anemia in chronic kidney disease (CODE) documented in this encounter Care Teams Geospatial Technician Relationship Specialty Start Date End Date Hal Cole MD [address] [facility] [address] [place], [phone] PCP - General Family Medicine 09/15/24 documented as of this encounter
--- OUTSIDE RECORDS SUMMARY | 2025-06-26 23:11 | XMS_ITS | Encounter Summary ---
Author Organization [employer] Address [address] [place] [address] Care Team Providers Care Learning Support Specialist Name Role Phone Hal Cole MD Primary Care Provider [phone] Encounter Details Date Type Department Care Team (Late st Contact Info) Description 09/15/2024 Lab Requisition [facility] - Main Lab [address] [place] [address] Hal oCle MD [address] [place] [address], [phone] Chronic obstructive pulmonary disease, unspecified (CMS/HCC [...] AM EST) WBC 7.4 4.8 - 10.8 /[facility] LAB HEMETOLOGY METHOD 09/15/2024 8:25 AM [facility] LAB RBC 3.70(L) 3.80 - 4.80 M/mcL LAB HEMETOLOGY METHOD 09/15/2024 8:25 AM [facility] Hemoglobin 10.6(L) 11.5 - 16.0 g/dL LAB HEMETOLOGY METHOD 09/15/2024 8:25 AM [facility] LAB Hematocrit 35.5 35.0 - 47.0 % LAB HEMETOLOGY METHOD 09/15/2024 8:25 AM [facility] LAB MCV 95.4 79.0 - 98.0 FL LAB HEMETOLOGY METHOD 09/15/2024 8:25 AM [facility] LAB MCH 28.5 27.0 - 32.0 pcg LAB HEMETOLOGY METHOD 09/15/2024 8:25 AM [facility] LAB MCHC 29.9(L) 32.0 - 37.0 g/dL LAB HEMETOLOGY METHOD 09/15/2024 8:25 AM [facility] LAB RDW 13.3 11.0 - 15.0 % LAB HEMETOLOGY METHOD 09/15/2024 8:25 AM [facility] LAB Platelets 245 130 - 400 K/mcL LAB HEMETOLOGY METHOD 09/15/2024 8:25 AM [facility] LAB MPV 9.5 7.0 - 11.0 FL LAB HEMETOLOGY METHOD 09/15/2024 8:25 AM [facility] LAB NRBC 0.0 <1.0 % LAB HEMETOLOGY METHOD 09/15/2024 8:25 AM [facility] LAB NRBC Absolute 0.00 <0.10 K/mcL LAB HEMETOLOGY METHOD 09/15/2024 8:25 AM [facility] Neutrophils Relative 73.5 % LAB HEMETOLOGY METHOD 09/15/2024 8:25 AM [facility] Lymphocytes Relative 14.3 % LAB HEMETOLOGY METHOD 09/15/2024 8:25 AM [facility] Monocytes Relative 6.0 % LAB HEMETOLOGY METHOD 09/15/2024 8:25 AM [facility] Eosinophils Relative 4.8 % LAB HEMETOLOGY METHOD 09/15/2024 8:25 AM [facility] Basophils Relative 0.7 % LAB HEMETOLOGY METHOD 09/15/2024 8:25 AM [facility] Immature Granulocytes Relative 0.7 % LAB HEMETOLOGY METHOD 09/15/2024 8:25 AM [facility] LAB Neutrophils Absolute 5.41 1.50 - 7.00 K/mcL LAB HEMETOLOGY METHOD 09/15/2024 8:25 AM [facility] Lymphocytes Absolute 1.05 1.00 - 5.00 K/mcL LAB HEMETOLOGY METHOD 09/15/2024 8:25 AM [facility] Monocytes Absolute 0.44 0.20 - 1.00 K/mcL LAB HEMETOLOGY METHOD 09/15/2024 8:25 AM [facility] Eosinophils Absolute 0.35 0.00 - 0.50 K/mcL LAB HEMETOLOGY METHOD 09/15/2024 8:25 AM [facility] Basophils Absolute 0.05 0.00 - 0.20 K/mcL LAB HEMETOLOGY METHOD 09/15/2024 8:25 AM [facility] Immature Granulocytes Absolute 0.05(H) 0.00 - 0.03 K/mcL LAB HEMETOLOGY METHOD 09/15/2024 8:25 AM [facility] Blood Venous blood specimen / Unknown Venipuncture / Unknown 09/15/2024 5:17 AM EST 09/15/2024 8:04 AM EST Hal Cole MD LAB BLOOD ORDERABLES Final Resul t [facility] [address] [place] [address], * (ABNORMAL) Basic metabolic panel (09/15/2024 5:17 AM EST) Sodium 141 133 - 145 mmol/L LAB CHEMISTRY METHOD 09/15/2024 9:01 AM [facility] Potassium 3.7 3.5 - 5.5 mmol/L LAB CHEMISTRY METHOD 09/15/2024 9:01 AM [facility] Chloride 104 96 - 110 mmol/L LAB CHEMISTRY METHOD 09/15/2024 9:01 AM [facility] CO2 32 21 - 32 mmol/L LAB CHEMISTRY METHOD 09/15/2024 9:01 AM [facility] Anion Gap 5 3 - 11 LAB CHEMISTRY METHOD 09/15/2024 9:01 AM [facility] Glucose 187(H) 70 - 100 mg/dL LAB CHEMISTRY METHOD 09/15/2024 9:01 AM [facility] BUN 57(H) 5 - 25 mg/dL LAB CHEMISTRY METHOD 09/15/2024 9:01 AM [facility] Creatinine 1.92(H) 0.50 - 1.10 mg/dL LAB CHEMISTRY METHOD 09/15/2024 9:01 AM [facility] eGFR 27(L) >=60 mL/min/1. 73m2 LAB CHEMISTRY METHOD 09/15/2024 9:01 AM [facility] Comment:Calculation based on the Chronic Kidney Disease Epidemiology Collaboration (CKD-EPI) equation refit without adjustment for race. BUN/Creatinine Ratio 29.7 LAB CHEMISTRY METHOD 09/15/2024 9:01 AM [facility] Calcium 8.4(L) 8.5 - 10.5 mg/dL LAB CHEMISTRY METHOD 09/15/2024 9:01 AM EST [facility] Blood Venous blood specimen / Unknown Venipuncture / Unknown 09/15/2024 5:17 AM EST 09/15/2024 8:04 AM EST us Hal Cole MD LAB BLOOD ORDERABLES Final Resul t [facility] [address] [place] [address], documented in this encounter Visit Diagnoses Diagnosis Chronic obstructive pulmonary disease, unspecified (CMS/HCC V24, CMS/HCC V28) documented in this encounter Care Teams Learning Support Specialist Relationship Specialty Start Date End Date Hal Cole MD [address] [place] [address], [phone] PCP - General Family Medicine 09/15/24 documented as of this encounter
--- OUTSIDE RECORDS SUMMARY | 2025-06-26 23:11 | XMS_ITS | Encounter Summary ---
Author Organization [employer] Address [address] [place] [address] Care Team Providers Care Freelance Displayer Name Role Phone Hal Cole MD Primary Care Provider Encounter Details Date Type Department Care Team (Late st Contact Info) Description 08/27/[address] [facility] - Main Lab 299 [facility] [place] [address] Hal Cole MD [address] [place] [address], [phone] Type 2 diabetes mellitus without complications [...] phlebotomy fee (08/29/2024 5:30 AM EST) [facility] HOME TRAVEL PHLEBOTOMY FEE Completed 08/29/2024 10:01 AM [facility] Blood Venous blood specimen / Unknown Venipuncture / Unknown 08/29/2024 5:30 AM EST 08/29/2024 9:51 AM EST us Hal Cole MD LAB BLOOD ORDERABLES Final Resul t [facility] [address] [place] [address], * (ABNORMAL) Basic metabolic panel (08/29/2024 5:30 AM EST) [facility] Sodium 137 133 - 145 mmol/L LAB CHEMISTRY METHOD 08/29/2024 10:57 AM [facility] Potassium 5.0 3.5 - 5.5 mmol/L LAB CHEMISTRY METHOD 08/29/2024 10:57 AM [facility] LAB Comment:Hemolysis present Chloride 101 96 - 110 mmol/L LAB CHEMISTRY METHOD 08/29/2024 10:57 AM [facility] CO2 29 21 - 32 mmol/L LAB CHEMISTRY METHOD 08/29/2024 10:57 AM [facility] Anion Gap 7 3 - 11 LAB CHEMISTRY METHOD 08/29/2024 10:57 AM [facility] Glucose 156(H) 70 - 100 mg/dL LAB CHEMISTRY METHOD 08/29/2024 10:57 AM [facility] BUN 62(H) 5 - 25 mg/dL LAB CHEMISTRY METHOD 08/29/2024 10:57 AM [facility] Creatinine 1.63(H) 0.50 - 1.10 mg/dL LAB CHEMISTRY METHOD 08/29/2024 10:57 AM [facility] LAB eGFR 33(L) >=60 mL/min/1. 73m2 LAB CHEMISTRY METHOD 08/29/2024 10:57 AM EST [facility] Comment:Calculation based on the Chronic Kidney Disease Epidemiology Collaboration (CKD-EPI) equation refit without adjustment for race. BUN/Creatinine Ratio 38.0 LAB CHEMISTRY METHOD 08/29/2024 10:57 AM [facility] Calcium 8.8 8.5 - 10.5 mg/dL LAB CHEMISTRY METHOD 08/29/2024 10:57 AM [facility] Blood Venous blood specimen / Unknown Venipuncture / Unknown 08/29/2024 5:30 AM EST 08/29/2024 9:51 AM EST us Hal Cole MD LAB BLOOD ORDERABLES Final Resul t [facility] [address] [place] [address], * (ABNORMAL) Complete blood count (08/29/2024 5:30 AM EST) WBC 8.4 4.8 - 10.8 K/mcL LAB HEMETOLOGY METHOD 08/29/2024 10:59 AM [facility] RBC 4.00 3.80 - 4.80 M/mcL LAB HEMETOLOGY METHOD 08/29/2024 10:59 AM [facility] Hemoglobin 11.6 11.5 - 16.0 g/dL LAB HEMETOLOGY METHOD 08/29/2024 10:59 AM [facility] Hematocrit 39.0 35.0 - 47.0 % LAB HEMETOLOGY METHOD 08/29/2024 10:59 AM [facility] LAB MCV 98.5(H) 79.0 - 98.0 FL LAB HEMETOLOGY METHOD 08/29/2024 10:59 AM [facility] MCH 29.3 27.0 - 32.0 pcg LAB HEMETOLOGY METHOD 08/29/2024 10:59 AM EST [facility] MCHC 29.7(L) 32.0 - 37.0 g/dL LAB HEMETOLOGY METHOD 08/29/2024 10:59 AM [facility] RDW 13.5 11.0 - 15.0 % LAB HEMETOLOGY METHOD 08/29/2024 10:59 AM [facility] Platelets 308 130 - 400 K/mcL LAB HEMETOLOGY METHOD 08/29/2024 10:59 AM [facility] MPV 9.9 7.0 - 11.0 FL LAB HEMETOLOGY METHOD 08/29/2024 10:59 AM [facility] LAB NRBC 0.0 <1.0 % LAB HEMETOLOGY METHOD 08/29/2024 10:59 AM [facility] NRBC Absolute 0.00 <0.10 K/mcL LAB HEMETOLOGY METHOD 08/29/2024 10:59 AM [facility] Blood Venous blood specimen / Unknown Venipuncture / Unknown 08/29/2024 5:30 AM EST 08/29/2024 9:51 AM EST us Hal Cole MD LAB BLOOD ORDERABLES Final Resul t [facility] [address] [place] [address], documented in this encounter Visit Diagnoses Diagnosis Type 2 diabetes mellitus without complications (CMS/HCC V24, CMS/HCC V28) Chronic obstructive pulmonary disease, unspecified (CMS/HCC V24, CMS/HCC V28) documented in this encounter Care Teams Freelance Displayer Relationship Specialty Start Date End Date Hal Cole MD [address] [place] [address], [phone] PCP - General Family Medicine 09/15/24 documented as of this encounter
--- OUTSIDE RECORDS SUMMARY | 2025-06-26 23:11 | XMS_ITS | Encounter Summary ---
Author Organization [employer] Address [address] [place] [address] Care Team Providers Care Wall Taper Helper Name Role Phone Hal Cole MD Primary Care Provider [phone] Encounter Details Date Type Department Care Team (Late st Contact Info) Description 09/28/2024 Lab Requisition [facility] - Main Lab [address] [facility] [place] [address] Hal Cole MD [address] [place] [address], [phone] Essential (primary) hypertension; Chronic obstructive pulmonary [...] LAB CHEMISTRY METHOD 09/28/2024 1:08 PM EST [facility] Blood Venous blood specimen / Unknown Venipuncture / Unknown 09/28/2024 7:04 AM EST 09/28/2024 11:03 AM EST Hal Cole MD LAB BLOOD ORDERABLES Final Resul t Performing Organization Address [facility]/ZIP Co de Phone Number [facility] [address] [place] [address], [place] [phone] * Free thyroxine with reflex to free triiodothyronine (09/28/2024 7:04 AM EST) Pathologist [facility] Free T4 0.88 0.70 - 1.80 ng/dL LAB CHEMISTRY METHOD 09/28/2024 12:41 PM EST [facility] Blood Venous blood specimen / Unknown Venipuncture / Unknown 09/28/2024 7:04 AM EST 09/28/2024 11:03 AM EST Hal Cole MD LAB BLOOD ORDERABLES Final Resul t [facility] [address] [place] [address], [place] [phone] * (ABNORMAL) Thyroid stimulating hormone with reflex [...] Resul t [facility] [address] [place] [address], [place] [phone] * (ABNORMAL) Basic metabolic panel (09/28/2024 7:04 [...] PM [facility] Comment:Calculation based on the Chronic [...] Resul t [facility] [address] [place] [address], * (ABNORMAL) Complete blood count (09/28/2024 7:04 [...] LAB HEMETOLOGY METHOD 09/28/2024 11:31 AM EST [facility] RDW 13.5 11.0 - 15.0 % LAB HEMETOLOGY METHOD 09/28/2024 11:31 AM [facility] Platelets 214 130 - 400 K/mcL LAB HEMETOLOGY METHOD 09/28/2024 11:31 AM [facility] MPV 9.9 7.0 - 11.0 FL LAB HEMETOLOGY METHOD 09/28/2024 11:31 AM [facility] NRBC 0.0 <1.0 % LAB HEMETOLOGY METHOD 09/28/2024 11:31 AM [facility] NRBC Absolute 0.00 <0.10 K/mcL LAB HEMETOLOGY METHOD 09/28/2024 11:31 AM [facility] Blood Venous blood specimen / Unknown Venipuncture / Unknown 09/28/2024 7:04 AM EST 09/28/2024 11:03 AM EST us Hal Cole MD LAB BLOOD ORDERABLES Final Resul t [facility] [address] [place] [address], documented in this encounter Visit Diagnoses Diagnosis Essential (primary) hypertension Unspecified essential hypertension Chronic obstructive pulmonary disease, unspecified (CMS/HCC V24, CMS/HCC V28) documented in this encounter Care Teams Wall Taper Helper Relationship Specialty Start Date End Date Hal Cole MD [address] [place] [address], [phone] PCP - General Family Medicine 09/15/24 documented as of this encounter
--- OUTSIDE RECORDS SUMMARY | 2025-06-26 23:11 | XMS_ITS | Clinical Summary ---
Author Organization [facility] Address [address] [place] [address] Phone Care Team Providers Care Toll Ticket Clerk Name Role Phone Neida Mirza MD Primary Care Provider [phone] Allergies Active Allergy Reactions Criticality Noted Date [...] this topic Insurance Medicare Medicare Care Teams Toll Ticket Clerk Relationship Specialty Start Date End Date Neida Mirza MD [address] [place], [place] PCP - General 11/05/20
--- OUTSIDE RECORDS SUMMARY | 2025-06-26 23:11 | XMS_ITS | Encounter Summary ---
Author Organization [facility] Address [address] [place] [address] Care Team Providers Care Inspector Precision Assembly Name Role Phone Hal Cole MD Primary Care Provider [phone] Encounter Details Date Type Department Care Team (Late st Contact Info) Description 05/25/2025 Lab Requisition [facility] - Main Lab [address] [place] [address] Hal Cole MD [address] [place] [address], [phone] Hypokalemia Social History Tobacco Use Types Packs/Day Years [...] Associated Diagnosis Comments BASIC METABOLIC PANEL Routine 05/25/2025 5:43 AM EDT Hypokalemia documented in this encounter Results * (ABNORMAL) Basic metabolic panel (05/25/2025 5:43 AM EDT) Sodium 138 133 - 145 mmol/L LAB CHEMISTRY METHOD 05/25/2025 9:14 AM EDT [facility] Potassium 3.4(L) 3.5 - 5.5 mmol/L LAB CHEMISTRY METHOD 05/25/2025 9:14 AM EDT [facility] Chloride 99 96 - 110 mmol/L LAB CHEMISTRY METHOD 05/25/2025 9:14 AM EDT [facility] CO2 33(H) 21 - 32 mmol/L LAB CHEMISTRY METHOD 05/25/2025 9:14 AM [facility] Anion Gap 6 3 - 11 LAB CHEMISTRY METHOD 05/25/2025 9:14 AM [facility] Glucose 219(H) 70 - 100 mg/dL LAB CHEMISTRY METHOD 05/25/2025 9:14 AM [facility] BUN 71(H) 5 - 25 mg/dL LAB CHEMISTRY METHOD 05/25/2025 9:14 AM [facility] Creatinine 1.37(H) 0.50 - 1.10 mg/dL LAB CHEMISTRY METHOD 05/25/2025 9:14 AM [facility] eGFR 40(L) >=60 mL/min/1. 73m2 LAB CHEMISTRY METHOD 05/25/2025 9:14 AM [facility] Comment:Calculation based on the Chronic Kidney Disease Epidemiology Collaboration (CKD-EPI) equation refit without adjustment for race. BUN/Creatinine Ratio 51.8 LAB CHEMISTRY METHOD 05/25/2025 9:14 AM [facility] Calcium 7.6(L) 8.5 - 10.5 mg/dL LAB CHEMISTRY METHOD 05/25/2025 9:14 AM [facility] Blood Venous blood specimen / Unknown Venipuncture / Unknown 05/25/2025 5:43 AM EDT 05/25/2025 8:23 AM EDT us Hal Cole MD LAB BLOOD ORDERABLES Final Resul t [facility] [address] [place] [address], documented in this encounter Visit Diagnoses Diagnosis Hypokalemia Hypopotassemia documented in this encounter Care Teams Inspector Precision Assembly Relationship Specialty Start Date End Date Hal Cole MD [address] [place] [phone] PCP - General Family Medicine 09/15/24 documented as of this encounter
--- OUTSIDE RECORDS SUMMARY | 2025-06-26 23:11 | XMS_ITS | Encounter Summary ---
Author Organization [facility] Address [address] [place] [address] Care Team Providers Care Intelligence Clerk Name Role Phone Hal Cole MD Primary Care Provider [phone] Encounter Details Date Type Department Care Team (Late st Contact Info) Description 05/17/2025 Lab Requisition [facility] - Main Lab [address] [facility] [place] [address] Hal Cole MD [address] [place] [address], [phone] Hypokalemia Social History Tobacco Use Types [...] Procedure Name Priority Date/Time Associated Diagnosis Comments ELECTROLYTE PANEL Routine 05/18/2025 6:1 5 AM EDT Hypokalemia documented in this encounter Results * (ABNORMAL) Electrolyte panel (05/18/2025 6:15 AM EDT) Sodium 140 133 - 145 mmol/L LAB CHEMISTRY METHOD 05/18/2025 10:19 AM EDT [facility] Potassium 3.8 3.5 - 5.5 mmol/L LAB CHEMISTRY METHOD 05/18/2025 10:19 AM EDT [facility] Chloride 97 96 - 110 mmol/L LAB CHEMISTRY METHOD 05/18/2025 10:19 AM [facility] CO2 38(H) 21 - 32 mmol/L LAB CHEMISTRY METHOD 05/18/2025 10:19 AM EDT [facility] Anion Gap 5 3 - 11 LAB CHEMISTRY METHOD 05/18/2025 10:19 AM EDT [facility] Blood Venous blood specimen / Unknown Venipuncture / Unknown 05/18/2025 6:15 AM EDT 05/18/2025 9:39 AM EDT us Hal Cole MD LAB BLOOD ORDERABLES Final Resul t [facility] [address] [place] [address], documented in this encounter Visit Diagnoses Diagnosis Hypokalemia Hypopotassemia documented in this encounter Care Teams Intelligence Clerk Relationship Specialty Start Date End Date Hal Cole MD [address] [place] [phone] PCP - General Family Medicine 09/15/24 documented as of this encounter
[2025-06-27] MEDS: Lactated Ringers 500 ML 999 ML IV (00:30)
[2025-06-27 01:16] LABS: Glucose, Whole Blood 94 mg/dL (60-115)
[2025-06-27] MEDS: Albuterol Sulfate 2.5 MG, Albuterol/Iprat 2.5/0.5MG 3 ML 3 ML INHALE (01:27)
[2025-06-27 01:28] VITALS: PULSE 69; RESP 18; O2SAT 96
[2025-06-27 02:40] VITALS: BP 107/40; PULSE 69; RESP 16; TEMP 36.8; O2SAT 100
[2025-06-27 02:53] VITALS: BP 107/40; PULSE 69; RESP 16; TEMP 36.8; O2SAT 100
--- OUTSIDE RECORDS SUMMARY | 2025-08-22 20:00 | XMS_ITS | Clinical Summary ---
Author Organization Unknown Care Team Providers Care Front Desk Supervisor Name Role Phone KEAGAN RAM MD, SHOBHA Unavailable Unavailable JT RN, JO Unavailable Unavailab nancy DICKINSON PT, EZ Unavailable Unavailabl alana JACKSON MEDIA BUYER, VENTURA Unavailable Unavailable READING OT, AMANDA Unavailable Unavailable Payers Payer Name Policy Type Policy Number Effective Date Expira tion Date MEDICARE.[facility].PDGM [id number] Problems Condition Name Condition Details Condition Category Status Onset Date Resolution Date Last Treatment Date Treating Clinician Comments URINARY TRACT INFECTION, SITE NOT SPECIFIED Active 06-22 00:00: 00 Allergies, Adverse Reactions, Alerts Allergy Name Allergy Type Status Severity Reaction(s) Onset Date Inactive Date Treating Clinician Comments CODEINE Propensity to adverse reactions Active 2025-05 11:16:4 1 MOTRIN IB Propensity to adverse reactions Active 2025-05 11:16:5 5 Vital Signs Vital Name Observation Time Observation Value Commen ts Temperature 2025-06-25 11:17:00.000 97.4 [degF] BMI (%) 2025-06-25 11:17:00.000 31 kg/m2 Height 2025-06-25 11:17:00.000 65 [in_us] Pulse 2025-06-25 11:17:00.000 74 /min Respirations 2025-06-25 11:17:00.000 20 /min Weight (lbs) 2025-06-25 11:17:00.000 191 [lb_av] Systolic Blood Pressure 2025-06-25 11:17:00.000 130 mm [Hg] Diastolic Blood Pressure 2025-06-25 11:17:00.000 68 mm [Hg] Plan of Treatment Planned Activity Planned Date Details Comments Future Scheduled Test RN TO OBSE RVE, ASSESS, EVALUATE, AND DEVELOP AN INDIVIDUALIZED PLAN OF CARE. AGENCY MAY ACCEPT ORDERS FROM CONSULTING PHYSICIANS RN TO OBSERVE AND ASSESS, ENTERPRISE SYSTEMS MANAGER/RADIOLOGY ASST TO OBSERVE FOR RISK FOR FALLS AND INSTRUCT IN FALL PREVENTION, HOME SAFETY, MEDICATION MANAGEMENT, INFECTION PREVENTION, AND NUTRITION MANAGEMENT. RN/ENTERPRISE SYSTEMS MANAGER/RADIOLOGY ASST NURSE MAY PERFORM O2 SATURATION LEVEL ON ADMISSION AND PRN FOR RESP STATUS CHANGES FOR RN TO ASSESS/ENTERPRISE SYSTEMS MANAGER TO OBSERVE PATIENT, WITH NOTIFICATION TO THE PHYSICIAN IF SATURATION IS 90% IN THE ABSENCE OF MORE SPECIFIC PARAMETERS FROM THE PHYSICIAN. AGENCY MAY PERFORM A RESUMPTION OF CARE VISIT FOLLOWING ANY HOSPITAL ADMISSION. RN/ENTERPRISE SYSTEMS MANAGER/RADIOLOGY ASST TO MONITOR CO-MORBID CONDITIONS LISTED ON THE PLAN OF CARE AND ANY NEW CONDITIONS THAT PRESENT THEMSELVES DURING THIS EPISODE TO IDENTIFY CHANGES AND INTERVENE TO MINIMIZE COMPLICATIONS. [code = RN TO OBSERVE, ASSESS, EVALUATE, AND DEVELOP AN INDIVIDUALIZED PLAN OF CARE. AGENCY MAY ACCEPT ORDERS FROM CONSULTING PHYSICIANS RN TO OBSERVE AND ASSESS, ENTERPRISE SYSTEMS MANAGER/RADIOLOGY ASST TO OBSERVE FOR RISK FOR FALLS AND INSTRUCT IN FALL PREVENTION, HOME SAFETY, MEDICATION MANAGEMENT, INFECTION PREVENTION, AND NUTRITION MANAGEMENT. RN/ENTERPRISE SYSTEMS MANAGER/RADIOLOGY ASST NURSE MAY PERFORM O2 SATURATION LEVEL ON ADMISSION AND PRN FOR RESP STATUS CHANGES FOR RN TO ASSESS/ENTERPRISE SYSTEMS MANAGER TO OBSERVE PATIENT, WITH NOTIFICATION TO THE PHYSICIAN IF SATURATION IS 90% IN THE ABSENCE OF MORE SPECIFIC PARAMETERS FROM THE PHYSICIAN. AGENCY MAY PERFORM A RESUMPTION OF CARE VISIT FOLLOWING ANY HOSPITAL ADMISSION. RN/ENTERPRISE SYSTEMS MANAGER/RADIOLOGY ASST TO MONITOR CO-MORBID CONDITIONS LISTED ON THE PLAN OF CARE AND ANY NEW CONDITIONS THAT PRESENT THEMSELVES DURING THIS EPISODE TO IDENTIFY CHANGES AND INTERVENE TO MINIMIZE COMPLICATIONS.] Future Scheduled Test MEDICATION MANAGEMENT; RN/ENTERPRISE SYSTEMS MANAGER/RADIOLOGY ASST TO REVIEW MEDICATIONS FOR INTERACTIONS, EFFECTIVENESS OF DRUG THERAPY, AND SIGNS/SYMPTOMS OF ADVERSE REACTIONS. MAY INSTRUCT AND REINFORCE MEDICATION TEACHING RELATED TO THE USE OF MEDICATIONS, DOSAGE, FREQUENCY, PURPOSE, SIDE EFFECTS, AND TO REPORT COMPLICATIONS. [code = MEDICATION MANAGEMENT; RN/ENTERPRISE SYSTEMS MANAGER/RADIOLOGY ASST TO REVIEW MEDICATIONS FOR INTERACTIONS, EFFECTIVENESS OF DRUG THERAPY, AND SIGNS/SYMPTOMS OF ADVERSE REACTIONS. MAY INSTRUCT AND REINFORCE MEDICATION TEACHING RELATED TO THE USE OF MEDICATIONS, DOSAGE, FREQUENCY, PURPOSE, SIDE EFFECTS, AND TO REPORT COMPLICATIONS.] Future Scheduled Test RISK FOR H OSPITALIZATION; RN TO ASSESS/TEACH, RADIOLOGY ASST/ENTERPRISE SYSTEMS MANAGER TO OBSERVE/TEACH PATIENT/CAREGIVER ON RISK FOR HOSPITALIZATION/EMERGENCY ROOM VISITS, TEACH SIGNS AND SYMPTOMS THAT PUT PATIENT AT RISK, WHEN TO NOTIFY NURSE/PHYSICIAN OF COMPLICATIONS/DECLINE, AND WHEN TO CALL 911. [code = RISK FOR HOSPITALIZATION; RN TO ASSESS/TEACH, RADIOLOGY ASST/ENTERPRISE SYSTEMS MANAGER TO OBSERVE/TEACH PATIENT/CAREGIVER ON RISK FOR HOSPITALIZATION/EMERGENCY ROOM VISITS, TEACH SIGNS AND SYMPTOMS THAT PUT PATIENT AT RISK, WHEN TO NOTIFY NURSE/PHYSICIAN OF COMPLICATIONS/DECLINE, AND WHEN TO CALL 911.] Future Scheduled Test CARDIOVASC ULAR SYSTEM; RN TO ASSESS/TEACH, ENTERPRISE SYSTEMS MANAGER/RADIOLOGY ASST TO OBSERVE/TEACH RELATED TO ALTERED CARDIOVASCULAR STATUS TO MINIMIZE COMPLICATIONS AND REDUCE HOSPITALIZATION. [code = CARDIOVASCULAR SYSTEM; RN TO ASSESS/TEACH, ENTERPRISE SYSTEMS MANAGER/RADIOLOGY ASST TO OBSERVE/TEACH RELATED TO ALTERED CARDIOVASCULAR STATUS TO MINIMIZE COMPLICATIONS AND REDUCE HOSPITALIZATION.] Future Scheduled Test HEART FAIL URE; RN TO ASSESS/TEACH, ENTERPRISE SYSTEMS MANAGER/RADIOLOGY ASST TO OBSERVE/TEACH CARDIOPULMONARY SYSTEM TO IDENTIFY SIGNS OF DECOMPENSATION AND INTERVENE TO MINIMIZE THE SEVERITY OF FLUID OVERLOAD. OBSERVE PATIENT ABILITY TO MONITOR AND RECORD DAILY WEIGHTS AND VITAL SIGNS, INCLUDING PULSE AND BLOOD PRESSURE; RECORD PATIENT REPORTED WEIGHT, OR WEIGH PATIENT NEEDED. REPORT INCREASED EDEMA OR WEIGHT GAIN OF >2 LBS IN 1 DAY OR >5 LBS IN 1 WEEK OR 5LBS OR MORE OVER TARGET WEIGHT. MAY MEASURE ABDOMINAL GIRTH IF UNABLE TO WEIGH. SCALES AND BP MONITOR TO BE PROVIDED IF NEEDED. [code = HEART FAILURE; RN TO ASSESS/TEACH, ENTERPRISE SYSTEMS MANAGER/RADIOLOGY ASST TO OBSERVE/TEACH CARDIOPULMONARY SYSTEM TO IDENTIFY SIGNS OF DECOMPENSATION AND INTERVENE TO MINIMIZE THE SEVERITY OF FLUID OVERLOAD. OBSERVE PATIENT ABILITY TO MONITOR AND RECORD DAILY WEIGHTS AND VITAL SIGNS, INCLUDING PULSE AND BLOOD PRESSURE; RECORD PATIENT REPORTED WEIGHT, OR WEIGH PATIENT NEEDED. REPORT INCREASED EDEMA OR WEIGHT GAIN OF >2 LBS IN 1 DAY OR >5 LBS IN 1 WEEK OR 5LBS OR MORE OVER TARGET WEIGHT. MAY MEASURE ABDOMINAL GIRTH IF UNABLE TO WEIGH. SCALES AND BP MONITOR TO BE PROVIDED IF NEEDED.] Future Scheduled Test PAIN MANAG EMENT; RN TO ASSESS AND TEACH, RADIOLOGY ASST/ENTERPRISE SYSTEMS MANAGER TO OBSERVE AND TEACH AND PROVIDE EDUCATION ON PAIN MANAGEMENT TECHNIQUES. [code = PAIN MANAGEMENT; RN TO ASSESS AND TEACH, RADIOLOGY ASST/ENTERPRISE SYSTEMS MANAGER TO OBSERVE AND TEACH AND PROVIDE EDUCATION ON PAIN MANAGEMENT TECHNIQUES.] Future Scheduled Test GENITOURIN [place] MANAGEMENT; RN TO ASSESS AND TEACH, ENTERPRISE SYSTEMS MANAGER/RADIOLOGY ASST TO OBSERVE AND TEACH RELATED TO ALTERED GENITOURINARY STATUS TO MINIMIZE COMPLICATIONS AND REDUCE HOSPITALIZATION. [code = GENITOURINARY MANAGEMENT; RN TO ASSESS AND TEACH, ENTERPRISE SYSTEMS MANAGER/RADIOLOGY ASST TO OBSERVE AND TEACH RELATED TO ALTERED GENITOURINARY STATUS TO MINIMIZE COMPLICATIONS AND REDUCE HOSPITALIZATION.] Future Scheduled Test INDWELLING URINARY CATHETER MANAGEMENT; RN/ENTERPRISE SYSTEMS MANAGER/RADIOLOGY ASST TO INSTRUCT PATIENT / CAREGIVER ON INDWELLING URINARY CATHETER MANAGEMENT INCLUDING CARE OF CATHETER, SIGN AND SYMPTOMS OF COMPLICATIONS, PERINEAL CARE, TUBE AND BAG PLACEMENT, PREVENTION OF INFECTION AND SKIN BREAKDOWN. [code = INDWELLING URINARY CATHETER MANAGEMENT; RN/ENTERPRISE SYSTEMS MANAGER/RADIOLOGY ASST TO INSTRUCT PATIENT / CAREGIVER ON INDWELLING URINARY CATHETER MANAGEMENT INCLUDING CARE OF CATHETER, SIGN AND SYMPTOMS OF COMPLICATIONS, PERINEAL CARE, TUBE AND BAG PLACEMENT, PREVENTION OF INFECTION AND SKIN BREAKDOWN.] Future Scheduled Test FALL REDUC TION MANAGEMENT; RN TO ASSESS AND OBSERVE, ENTERPRISE SYSTEMS MANAGER/RADIOLOGY ASST TO OBSERVE FALL RISK FACTORS AND EDUCATE PATIENT/CAREGIVER ON STRATEGIES TO MINIMIZE THE RISK OF FALLING. [code = FALL REDUCTION MANAGEMENT; RN TO ASSESS AND OBSERVE, ENTERPRISE SYSTEMS MANAGER/RADIOLOGY ASST TO OBSERVE FALL RISK FACTORS AND EDUCATE PATIENT/CAREGIVER ON STRATEGIES TO MINIMIZE THE RISK OF FALLING.] Future Scheduled Test RESPIRATOR Y SYSTEM MANAGEMENT; RN TO ASSESS AND TEACH, ENTERPRISE SYSTEMS MANAGER/RADIOLOGY ASST TO OBSERVE AND TEACH RELATED TO ALTERED RESPIRATORY STATUS TO MINIMIZE COMPLICATIONS AND REDUCE HOSPITALIZATION. [code = RESPIRATORY SYSTEM MANAGEMENT; RN TO ASSESS AND TEACH, ENTERPRISE SYSTEMS MANAGER/RADIOLOGY ASST TO OBSERVE AND TEACH RELATED TO ALTERED RESPIRATORY STATUS TO MINIMIZE COMPLICATIONS AND REDUCE HOSPITALIZATION.] Future Scheduled Test OXYGEN THE RAPY; RN/ENTERPRISE SYSTEMS MANAGER/RADIOLOGY ASST TO INSTRUCT ON OXYGEN MANAGEMENT INCLUDING: ADMINISTRATION AT 3L/MIN VIA NC CONTINUOUS FOR HYPOXIA CARE OF EQUIPMENT AND SAFETY. [code = OXYGEN THERAPY; RN/ENTERPRISE SYSTEMS MANAGER/RADIOLOGY ASST TO INSTRUCT ON OXYGEN MANAGEMENT INCLUDING: ADMINISTRATION AT 3L/MIN VIA NC CONTINUOUS FOR HYPOXIA CARE OF EQUIPMENT AND SAFETY.] Goal Patient Goal - TO STAY HOME Goal Provider Goal - A PLAN OF CARE WILL BE ESTABLISHED THAT MEETS THE PATIENT S NEEDS. PATIENT WILL DEMONSTRATE OXYGEN SATURATION WITHIN NORMAL LIMITS OR PATIENT S OPTIMAL LEVEL ESTABLISHED BY THE PHYSICIAN THROUGHOUT CARE. CHANGES TO CO-MORBID CONDITIONS AND ANY NEW CONDITIONS WILL BE IDENTIFIED AND REPORTED TO THE PHYSICIAN. Goal Provider Goal - PATIENT/CAREGIVER TO VERBALIZE, AND CONSISTENTLY DEMONSTRATE EFFECTIVE, SAFE MANAGEMENT OF MEDICATION INCLUDING KNOWLEDGE OF EFFECTIVENESS, POTENTIAL SIDE EFFECTS AND DRUG REACTIONS AND WHEN TO CONTACT THE APPROPRIATE CARE PROVIDER. PATIENT/CAREGIVER WILL BE ABLE TO VERBALIZE UNDERSTANDING OF MEDICATION REGIMEN AND ACCURATELY TAKE MEDICATIONS PRESCRIBED WITHOUT ADVERSE EFFECTS BY 08/23/25 Goal Provider Goal - PATIENT/CAREGIVER WILL VERBALIZE UNDERSTANDING OF SIGNS AND SYMPTOMS THAT PUT THE PATIENT AT RISK FOR HOSPITALIZATION /EMERGENCY ROOM VISITS, WHEN TO NOTIFY NURSE/PHYSICIAN OF COMPLICATIONS/DECLINE AND WHEN TO CALL 911. Goal Provider Goal - PATIENT / CAREGIVER WILL VERBALIZE/DEMONSTRATE UNDERSTANDING OF MEASURES TO MANAGE ALTERED CARDIOVASCULAR STATUS BY 08/23/25 Goal Provider Goal - PATIENT / CAREGIVER WILL VERBALIZE/DEMONSTRATE AN ABILITY TO ADHERE TO SELF-MANAGEMENT OF HF TO MINIMIZE COMPLICATIONS AND AVOID HOSPITALIZATION BY END OF EPISODE. Goal Provider Goal - PATIENT / CAREGIVER WILL VERBALIZE / DEMONSTRATE UNDERSTANDING OF PAIN CONTROL MEASURES BY 08/23/25 Goal Provider Goal - PATIENT / CAREGIVER WILL VERBALIZE/DEMONSTRATE UNDERSTANDING OF MEASURES TO MANAGE ALTERED GENITOURINARY STATUS BY END OF EPISODE. Goal Provider Goal - PATIENT/CAREGIVER WILL VERBALIZE/DEMONSTRATE UNDERSTANDING OF CARE AND MANAGEMENT OF INDWELLING CATHETER BY 08/23/25 Goal Provider Goal - PATIENT/CAREGIVER WILL VERBALIZE/DEMONSTRATE UNDERSTANDING OF FALL RISK FACTORS AND IMPLEMENT STRATEGIES TO MINIMIZE FALL RISK. PATIENT/CAREGIVER WILL VERBALIZE/DEMONSTRATE AN ABILITY TO ADHERE TO FALL REDUCTION SELF-MANAGEMENT AND LIFE-STYLE CHANGES BY 08/23/25 Goal Provider Goal - PATIENT / CAREGIVER WILL VERBALIZE/DEMONSTRATE UNDERSTANDING OF MEASURES TO MANAGE ALTERED RESPIRATORY STATUS BY END OF EPISODE. Goal Provider Goal - PATIENT/CAREGIVER WILL VERBALIZE/DEMONSTRATE UNDERSTANDING OF CARE AND MANAGEMENT OF OXYGEN THERAPY BY END OF EPISODE Progress Notes Progress Notes <paragraph>[Visit Date: 2024 by ALEJANDRO HAM RN]:</paragraph><paragraph>79 YEAR OLD FEMALE LIVES WITH SON JN SINGLE FAMILY HOME WITH RAMP. PT IS OXYGEN DEPENDENT AT 3LPM. PT HAS A IN HOME SALES CONSULTANT F/C, PT REPORTS SHE HAS BEEN PRESENTING TO ED FOR ROUTINE CHANGES AND DOES NOT HAVE A UROLOGIST. LAST CHANGED IN REHAB . NO ORDERS FOR CHANGES. PT REQUESTING A CHANGE NEXT WEEK DUE TO SOME LEAKING AROUND CATHETER. PT WAS HOSPITALIZED FOR CHF EXAC AND UTI. PT COMPLETED REHAB BEFORE RETURNING HOME WITH SERVICES. F/C DRAINING CLEAR YELLOW URINE. PT FBS 230, REPORTS SHE DOES NOT USE SS INSULIN. REPORTS CHRONIC LOW BACK, TAILBONE PAIN, SKIN INTACT. PT REPORTS FEELING FATIGUED WITH GENERALIZED WEAKNESS. SHE DOES NOT FEEL SHE CAN GO OUT TO SEE HER DOCTOR JUST YET FOR A F/U APPT. PT WITH A HX OF CHF, DOES NOT HAVE A SCALE. PT REPORTS MULTIPLE HOSPITALIZATIONS THIS YEAR. VSS, LS CLEAR, NO EDEMA. CALL [facility] REVIEWED. DECLINES TELEHEALTH VISITS AND TOUCH CALLS. PT IS HOMEBOUND DUE TO DECREASED ENDURANCE AND EASILY FATIGUED AND REQUIRES ONE ASSIST AND ASSISTIVE DEVICE TO GO OUT IN THE COMMUNITY. PT IS WALKS SHORT DISTANCES WITH WALKER AND OTHERWISE USES A WHEELCHAIR.</paragraph> Encounters Start Date/Time End Date/Time Encounter Type Admission Type Attending [facility] Care Department Encounter ID Discharge Date Discharge Status Discharge Condition Discharge Reason Percent Goals Met 2025-06-25 00:00:00 2025-08-23 00:00:00 Outpatient [facility] [id number] 80.00
== END 2025-06-27 02:56 | disposition home or self-care (01) ==
PROVIDERS: Emergency Provider Emergency Medicine
DX: E11.649 Type 2 diabetes mellitus with hypoglycemia without coma (principal); Z46.6 Encounter for fitting and adjustment of urinary device; I13.0 Hypertensive heart and chronic kidney disease with heart failure and stage 1 through stage 4 chronic kidney disease, or unspecified chronic kidney disease; E11.22 Type 2 diabetes mellitus with diabetic chronic kidney disease; N18.9 Chronic kidney disease, unspecified; I50.9 Heart failure, unspecified; Z79.4 Long term (current) use of insulin; Z79.899 Other long term (current) drug therapy
CPT/HCPCS: 82947; 94640; 96360; 99284; 99285; J7120

== ENCOUNTER → 2025-07-13 23:59 | Outpatient (BNV) | payer MEDICARE, MEDICAID, SELFPAY | PROVIDERS: PCP Internal Medicine; Visit Provider Internal Medicine | DX: I13.0 Hypertensive heart and chronic kidney disease with heart failure and stage 1 through stage 4 chronic kidney disease, or unspecified chronic kidney disease (principal); N18.4 Chronic kidney disease, stage 4 (severe); I50.32 Chronic diastolic (congestive) heart failure; N39.0 Urinary tract infection, site not specified | CPT/HCPCS: G0180 ==

== ENCOUNTER 2025-07-19 03:09 | Inpatient (IN) | payer MEDICARE, MEDICAID, SELFPAY ==
[2025-07-19] VITALS (20 sets, daily range): BP systolic 102–156; BP diastolic 36–84; PULSE 51–87; RESP 13–35; TEMP 36.1–37.7; O2SAT 92–99; BMI 36.3; BMI 35.9
--- NOTE | ~2025-07-19 | CT_ITS ---
EXAMINATION: CT CHEST WITHOUT CONTRAST CLINICAL INFORMATION: ? Right upper lobe pneumonia. COMPARISON: Chest radiograph earlier same day. CT chest 07/19/2025, 06/19/2024, and dating back to 2021 TECHNIQUE: Multidetector volumetric CT imaging of the chest was done. Axial MIP volume rendering provided. Sagittal and coronal reformatted images were obtained. This CT examination was performed using dose optimization techniques as appropriate, variously including the following: *Automated exposure control *Adjustment of mA and/or kV according to patient size (this includes techniques or standardized protocols for targeted exams where dose is matched to indication/reason for exam; i.e. extremities or head) *Use of iterative reconstruction technique FINDINGS: LUNGS: There is an irregular consolidation in the posterior right upper lobe abutting the major fissure, with air bronchograms, mild stellate appearance, groundglass halo, and focal retraction of the major fissure. This had a similar appearance dating back to chest CTs in 2021. It appears slightly larger in comparison with those exams. There is mild to moderate centrilobular emphysema with upper lobe predominance. There are tiny bilateral pleural effusions with associated passive atelectasis in both lower lobes. Trace amount of fluid since into the left major fissure and superior right major fissure. Small airways are mildly diffusely thickened suggesting bronchial inflammation. There is mild smooth interlobular septal thickening in keeping with mild interstitial pulmonary edema. There is no pneumothorax. MEDIASTINUM: There is mild to moderate cardiac enlargement. There is calcification of the mitral annulus. There are heavy coronary calcifications. There is no pericardial effusion. The aorta is moderately calcified but nonaneurysmal. The main pulmonary artery is enlarged, measuring 3.8 cm in diameter, consistent with pulmonary arterial hypertension. There are small lymph nodes in the mediastinum, of which the largest measures 12 mm in the precarinal region. These are nonspecific. No esophageal abnormality. The central airways appear patent. CORONARY ARTERY CALCIFICATION: Heavy. AXILLA/CHEST WALL: No mass or abnormal lymph nodes present. Minimal anasarca. UPPER ABDOMEN: Imaged upper abdominal contents demonstrate no definite abnormalities allowing for technique. OSSEOUS STRUCTURES: There is no suspicious lytic or blastic bone lesion evident. Moderate degenerative changes throughout the spine. CT/CT chest wo IV con IMPRESSION: 1. In the posterior segment right upper lobe, there is a subsegmental stellate consolidation with associated retraction of the major fissure, in retrospect similar but minimally larger from exams dating back to 2021. This most likely represents a nodular region of scarring and/or cicatrization atelectasis. The possibility of a slow-growing neoplasm such as adenocarcinoma is not entirely excluded given the appearance of the abnormality. 2. There is mild to moderate centrilobular emphysema. 3. There are tiny bilateral pleural effusions with associated passive atelectasis. There is mild interstitial pulmonary edema present. 4. There is mild to moderate cardiac enlargement. 5. Enlargement of the main pulmonary artery suggesting pulmonary arterial hypertension. Electronically signed by: Rigoberto Manning MD 07/19/2025 12:41 PM EDT
--- NOTE | ~2025-07-19 | XR_ITS ---
CLINICAL HISTORY: dyspnea CHEST X-RAY FRONTAL VIEW COMPARISON: 05/11/2025. FINDINGS: A single frontal view of the chest was performed. Cardiomegaly is present. There is calcification within the thoracic aortic arch. An area of infiltrate or consolidation is suspected within the right upper lung. Increased density in the right lower lung is thought to be secondary to the patient's breast tissues/body habitus. No definite pleural effusion or pneumothorax. IMPRESSION: 1. Cardiomegaly. 2. An area of infiltrate or consolidation is suspected within the right upper lung. A CT scan of the chest in the ER is advised for a more accurate assessment. This document has been electronically signed by: Travis Penny M.D. on 07/19/2025 05:07:49
--- NOTE | 2025-07-19 03:18 | ECG_ITS ---
Test Reason : CP Blood Pressure : */* mmHG Vent. Rate : 81 BPM Atrial Rate : 81 BPM P-R Int : 164 ms QRS Dur : 110 ms QT Int : 396 ms P-R-T Axes : 100 -46 82 degrees QTcB Int : 460 ms Normal sinus rhythm with sinus arrhythmia Pulmonary disease pattern Left anterior fascicular block Moderate voltage criteria for LVH, may be normal variant ( R in aVL , [place] product ) Abnormal ECG When compared with ECG of 10-May-2025 02:56, Premature supraventricular complexes are no longer Present T wave amplitude has increased in Anterior leads Referred By: Ana Chris Electronically Signed By: Jeremías Day
[2025-07-19] MEDS: Albuterol/Iprat 2.5/0.5MG 3 ML AMPUL.NEB INHALE ×3 (03:25→22:01)
[2025-07-19 03:44] LABS: Hematocrit 29.0 % (37.0-47.0); Hemoglobin 8.8 g/dl (12.0-16.0); Imm Gran Abs Auto 0.21 X10*3/uL (0.00-0.03); Imm Gran Pct Auto 2.3 % (0.0-0.4); Lymphocytes Absolute Auto 0.6 X10*3/uL (1.2-4.9); MANUAL DIFF FLAG NO; Mean Corpuscular HGB Conc 30.3 g/dl (31.0-35.0); Mean Corpuscular Hemoglobin 28.7 pg (27.0-33.0); Mean Corpuscular Volume 94.5 fL (80.0-98.0); NRBC Abs Auto 0.000 X10*3/uL (0.0-0.012); NRBC Pct Auto 0.0 /100WBC (0.0-0.2); Platelet Count 404 X10*3/uL (160-400); Red Blood Count 3.07 X10*6/uL (4.20-5.50); White Blood Count 9.1 X10*3/uL (4.8-10.8)
--- OUTSIDE RECORDS SUMMARY | 2025-07-19 03:45 | XMS_ITS | Encounter Summary ---
Author Organization [employer] Address [address] [place] [address] Care Team Providers Care Lump Roller Name Role Phone Hal Cole MD Primary Care Provider [phone] Encounter Details Date Type Department Care Team (Late st Contact Info) Description 05/20/2025 Lab Requisition [facility] - Main Lab [address] [place] [address] Hal Cole MD [address] [place] [address], [phone] Hypokalemia; Anemia in chronic kidney disease [...] LAB HEMETOLOGY METHOD 05/22/2025 1:35 PM EDT [facility] RBC 3.00(L) 3.80 - 4.80 M/mcL LAB HEMETOLOGY METHOD 05/22/2025 1:35 PM EDT [facility] Hemoglobin 8.2(L) 11.5 - 16.0 g/dL LAB HEMETOLOGY METHOD 05/22/2025 1:35 PM EDT [facility] Hematocrit 28.6(L) 35.0 - 47.0 % LAB HEMETOLOGY METHOD 05/22/2025 1:35 PM EDT [facility] MCV 96.0 79.0 - 98.0 FL LAB HEMETOLOGY METHOD 05/22/2025 1:35 PM EDT [facility] MCH 27.5 27.0 - 32.0 pcg LAB HEMETOLOGY METHOD 05/22/2025 1:35 PM EDT [facility] MCHC 28.7(L) 32.0 - 37.0 g/dL LAB HEMETOLOGY [facility] RDW 16.0(H) 11.0 - 15.0 % LAB HEMETOLOGY METHOD 05/22/2025 1:35 PM EDT [facility] Platelets 205 130 - 400 K/mcL LAB HEMETOLOGY METHOD [facility]/22[facility]2025 [facility] MPV 9.8 7.0 - 11.0 FL LAB HEMETOLOGY METHOD 05/22/2025 1:35 PM EDT [facility] NRBC 0.0 <1.0 % LAB HEMETOLOGY METHOD 05/22/2025 1:35 PM T [facility] NRBC Absolute 0.00 <0.10 K/mcL LAB HEMETOLOGY METHOD 05/22/2025 1:35 PM [facility] Blood Venous blood specimen / Unknown Venipuncture / Unknown 05/22/2025 6:46 AM EDT 05/22/2025 11:48 AM EDT us Hal Cole MD LAB BLOOD ORDERABLES Final Resul t [facility] [address] [place] [address], * (ABNORMAL) Basic metabolic panel (05/22/2025 6:46 AM EDT) Sodium 139 133 - 145 mmol/L LAB CHEMISTRY METHOD 05/22/2025 2:39 PM [facility] Potassium 3.4(L) 3.5 - 5.5 mmol/L LAB CHEMISTRY METHOD 05/22/2025 2:39 PM [facility] Chloride 99 96 - 110 mmol/L LAB CHEMISTRY METHOD 05/22/2025 2:39 PM [facility] CO2 32 21 - 32 mmol/L LAB CHEMISTRY METHOD 05/22/2025 2:39 PM [facility] Anion Gap 8 3 - 11 LAB CHEMISTRY METHOD 05/22/2025 2:39 PM [facility] Glucose 80 70 - 100 mg/dL LAB CHEMISTRY METHOD 05/22/2025 2:39 PM [facility] BUN 63(H) 5 - 25 mg/dL LAB CHEMISTRY METHOD 05/22/2025 2:39 PM [facility] Creatinine 1.62(H) 0.50 - 1.10 mg/dL LAB CHEMISTRY METHOD 05/22/2025 2:39 PM [facility] eGFR 33(L) >=60 mL/min/1. 73m2 LAB CHEMISTRY METHOD 05/22/2025 2:39 PM [facility] Comment:Calculation based on the Chronic Kidney Disease Epidemiology Collaboration (CKD-EPI) equation refit without adjustment for race. BUN/Creatinine Ratio 38.9 LAB CHEMISTRY METHOD 05/22/2025 2:39 PM [facility] Calcium 7.5(L) 8.5 - 10.5 mg/dL LAB CHEMISTRY METHOD 05/22/2025 2:39 PM EDT [facility] Blood Venous blood specimen / Unknown Venipuncture / Unknown 05/22/2025 6:46 AM EDT 05/22/2025 11:48 AM EDT us Hal Cole MD LAB BLOOD ORDERABLES Final Resul t [facility] [address] [place] [address], documented in this encounter Visit Diagnoses Diagnosis Hypokalemia Hypopotassemia Anemia in chronic kidney disease (CODE) documented in this encounter Care Teams Lump Roller Relationship Specialty Start Date End Date Hal Cole MD [address] [place] [address], [phone] PCP - General Family Medicine 09/15/24 documented as of this encounter
--- OUTSIDE RECORDS SUMMARY | 2025-07-19 03:45 | XMS_ITS | Encounter Summary ---
Author Organization [employer] Address [address] [place] [address] Care Team Providers Care Acetylene Torch Solderer Name Role Phone Hal Cole MD Primary Care Provider [phone] Encounter Details Date Type Department Care Team (Late st Contact Info) Description 05/23/[address] [facility] - Main Lab [address] [place] [address] Hal Cole MD [address] [place] [address], [phone] Chronic kidney disease, unspecified Social History [...] mmol/L LAB CHEMISTRY METHOD 05/24/2025 10:40 AM [facility] Potassium 3.4(L) 3.5 - 5.5 mmol/L LAB CHEMISTRY METHOD 05/24/2025 10:40 AM EDT [facility] Chloride 100 96 - 110 mmol/L LAB CHEMISTRY METHOD 05/24/2025 10:40 AM [facility] CO2 31 21 - 32 mmol/L LAB CHEMISTRY METHOD 05/24/2025 10:40 AM [facility] Anion Gap 10 3 - 11 LAB CHEMISTRY METHOD 05/24/2025 10:40 AM [facility] Glucose 176(H) 70 - 100 mg/dL LAB CHEMISTRY METHOD 05/24/2025 10:40 AM [facility] BUN 76(H) 5 - 25 mg/dL LAB CHEMISTRY METHOD 05/24/2025 10:40 AM [facility] Creatinine 1.57(H) 0.50 - 1.10 mg/dL LAB CHEMISTRY METHOD 05/24/2025 10:40 AM [facility] eGFR 34(L) >=60 mL/min/1. 73m2 LAB CHEMISTRY METHOD 05/24/2025 10:40 AM [facility] Comment:Calculation based on the Chronic Kidney Disease Epidemiology Collaboration (CKD-EPI) equation refit without adjustment for race. BUN/Creatinine Ratio 48.4 LAB CHEMISTRY METHOD 05/24/2025 10:40 AM [facility] Calcium 7.9(L) 8.5 - 10.5 mg/dL LAB CHEMISTRY METHOD 05/24/2025 10:40 AM [facility] Blood Venous blood specimen / Unknown Long-term Catheter / Unknown 05/24/2025 5:08 AM EDT 05/24/2025 9:38 AM EDT us Hal Cole MD LAB BLOOD ORDERABLES Final Resul t [facility] [address] [place] [address], documented in this encounter Visit Diagnoses Diagnosis Chronic kidney disease, unspecified documented in this encounter Care Teams Acetylene Torch Solderer Relationship Specialty Start Date End Date Hal Cole MD [address] [place] [phone] PCP - General Family Medicine 09/15/24 documented as of this encounter
--- OUTSIDE RECORDS SUMMARY | 2025-07-19 03:45 | XMS_ITS | Encounter Summary ---
Author Organization [employer] Address [address] [place] [address] Care Team Providers Care Profiling Machine Set Up Operator Name Role Phone Hal Cole MD Primary Care Provider [phone] Encounter Details Date Type Department Care Team (Late st Contact Info) Description 06/10/2025 Lab Requisition [facility] - Main Lab [address] [place] [address] Hal Cole MD [address] [place] [address], [phone] Anemia, unspecified; Chronic kidney disease, unspecified [...] LAB CHEMISTRY METHOD 06/12/2025 1:43 PM EDT [facility] Potassium 3.8 3.5 - 5.5 mmol/L LAB CHEMISTRY METHOD 06/12/2025 1:43 PM EDT [facility] Chloride 99 96 - 110 mmol/L LAB CHEMISTRY METHOD 06/12/2025 1:43 PM EDT [facility] CO2 27 21 - 32 mmol/L LAB CHEMISTRY METHOD 06/12/2025 1:43 PM [facility] Anion Gap 11 3 - 11 LAB CHEMISTRY METHOD 06/12/2025 1:43 PM [facility] Glucose 93 70 - 100 mg/dL LAB CHEMISTRY METHOD 06/12/2025 1:43 PM T [facility] BUN 73(H) 5 - 25 mg/dL LAB CHEMISTRY METHOD 06/12/2025 1:43 PM [facility] Creatinine 1.49(H) 0.50 - 1.10 mg/dL LAB CHEMISTRY METHOD 06/12/2025 1:43 PM [facility] eGFR 36(L) >=60 mL/min/1. 73m2 LAB CHEMISTRY METHOD 06/12/2025 1:43 PM T [facility] Comment:Calculation based on the Chronic Kidney Disease Epidemiology Collaboration (CKD-EPI) equation refit without adjustment for race. BUN/Creatinine Ratio 49.0 LAB CHEMISTRY METHOD 06/12/2025 1:43 PM [facility] Calcium 8.0(L) 8.5 - 10.5 mg/dL LAB CHEMISTRY METHOD 06/12/2025 1:43 PM T [facility] Blood Venous blood specimen / Unknown Venipuncture / Unknown 06/12/2025 6:01 AM EDT 06/12/2025 11:14 AM EDT us Hal Cole MD LAB BLOOD ORDERABLES Final Resul t [facility] [address] [place] [address], * (ABNORMAL) Complete blood count (06/12/2025 6:01 AM EDT) [facility] WBC 8.7 4.8 - 10.8 K/mcL LAB HEMETOLOGY METHOD 06/12/2025 1:24 PM EDT [facility] RBC 3.30(L) 3.80 - 4.80 M/mcL LAB HEMETOLOGY [facility] Hemoglobin 9.3(L) 11.5 - 16.0 g/dL LAB HEMETOLOGY METHOD 06/12[facility]2025 1[facility] Hematocrit 30.7(L) 35.0 - 47.0 % LAB HEMETOLOGY METHOD 06/12/2025 1[facility] MCV 91.9 79.0 - 98.0 FL LAB HEMETOLOGY METHOD 06/12/2025 1:24 PM [facility] MCH 27.8 27.0 - 32.0 pcg LAB HEMETOLOGY METHOD 06/12/2025 1:24 PM [facility] MCHC 30.3(L) 32.0 - 37.0 g/dL LAB HEMETOLOGY METHOD 06/12/2025 1:24 PM [facility] RDW 14.6 11.0 - 15.0 % LAB HEMETOLOGY METHOD 06/12/2025 1:24 PM [facility] Platelets 348 130 - 400 K/mcL LAB HEMETOLOGY METHOD 06/12/2025 1:24 PM [facility] MPV 8.8 7.0 - 11.0 FL LAB HEMETOLOGY METHOD 06/12[facility]2025 1[facility] NRBC 0.0 <1.0 % LAB HEMETOLOGY METHOD 06/12/2025 1:[facility] NRBC Absolute 0.00 <0.10 K/mcL LAB HEMETOLOGY METHOD 06/12/2025 1:24 PM EDT [facility] Blood Venous blood specimen / Unknown Venipuncture / Unknown 06/12/2025 6:01 AM EDT 06/12/2025 11:14 AM EDT us Hal Cole MD LAB BLOOD ORDERABLES Final Resul t [facility] [address] [place] [address], documented in this encounter Visit Diagnoses Diagnosis Anemia, unspecified Chronic kidney disease, unspecified documented in this encounter Care Teams Profiling Machine Set Up Operator Relationship Specialty Start Date End Date Hal Cole MD [address] [place] [address], [phone] PCP - General Family Medicine 09/15/24 documented as of this encounter
--- OUTSIDE RECORDS SUMMARY | 2025-07-19 03:45 | XMS_ITS | Clinical Summary ---
Author Organization [facility] Address [address] [place] [address] Phone Care Team Providers Care Insurance Checker Name Role Phone Neida Mirza MD Primary Care Provider Allergies Active Allergy Reactions Criticality Noted Date [...] this topic Insurance Medicare Medicare Care Teams Insurance Checker Relationship Specialty Start Date End Date Neida Mirza MD [address] [place], [place] PCP - General 11/05/20
--- OUTSIDE RECORDS SUMMARY | 2025-07-19 03:45 | XMS_ITS | Data Portability ---
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 Plan of Treatment [...] Name and Address Organization Details Recorded Time Diastolic heart failure 149069645 Active 2018 Hal Cole MD [address] [facility], [facility] [address], [place], [address] , [facility] [employer] 9 14:45:31 Dysphagia 41070909 Active 2018 Hal Cole MD [address] [facility], [facility] [address], [place], [address] , [facility] [employer] 9 14:45:39 Chronic obstructiv e pulmonary disease 91954082 Active 2018 Hal Cole MD [address] [facility], [address], [place], [address] , [facility] [employer] 9 14:45:48 Essential hypertensi on 58933236 Active 2018 Hal Cole MD [address] [facility], [address], [place], [address] , [facility] [employer] 9 14:45:53 Diabetes mellitus 61570978 Active 2018 Hal Cole MD [address] , [address], [place], [address] , [facility] 9 14:45:57 Hyperlipid emia 73105500 Active 2018 Hal Cole MD [address], [place], [address] , [facility] 9 14:46:04 Obesity 243974614 Active 2018 Hal Cole MD [address] , [address], [place], [address] , [facility] 9 14:46:12 Hypothyroi dism 61536667 Active 2018 Hal Cole MD [address] [facility], [address], [place], [address] , [facility] 9 14:50:40 Acute hypoxemic respirator y failure 540361244 Active 2023 ALLAN PRADHAN NP [address] [facility], [address], [place], [address] , [facility] 4 10:51:05 Pneumonia 519277579 Active 2023 ALLAN PRADHAN NP [address] [facility], [address], [place], [address] , [facility] 4 10:51:21 Pleural effusion 00232668 Active 2023 ALLAN PRADHAN NP [address] [facility], [address], [place], [address] , [facility] 4 10:51:43 Gastroesop hageal reflux disease without esophagiti s 350205879 Active 2023 ALLAN PRADHAN NP [address] [facility], [address], [place], [address] , [facility] 4 10:53:46 Anxiety 72261300 Active 2023 ALLAN PRADHAN NP [address] [facility], [address], [place], [address] , [facility] 4 11:00:09 Chronic kidney disease stage 3 230478814 Active 2023 ALLAN PRADHAN NP [address], [address], [place], [address] , [facility] 4 11:21:29 Chronic pain syndrome 848029629 Active 2023 ALLAN PRADHAN NP [address], [address], [place], [address] , [facility] 4 11:21:39 Acute nontraumat ic kidney injury 265303317853 103 Active 2023 ALLAN PRADHAN NP [address], [address], [place], [address] , [facility] 4 11:23:16 Left bundle branch block 45000447 Active 2023 ALLAN PRADHAN NP [address] [facility], [address], [place], [address] , [facility] 4 11:23:30 Pernicious anemia 79741852 Active 2023 ALLAN PRADHAN NP [address] [facility], [address], [place], [address] , [facility] 4 11:23:46 Obstructiv e sleep apnea syndrome 27759485 Active 2023 ALLAN PRADHAN NP [address] [facility], [address], [place], [address] , [facility] 4 11:47:23 Open wound 613223840 Active 2023 sacral ALLAN PRADHAN NP [address] [facility], [address], [place], [address] , [facility] 4 12:05:33 Asthenia 77898269 Active 2023 ALLAN PRADHAN NP [address] [facility], [address], [place], [address] , [facility] 4 12:10:47 Acute exacerbati on of chronic obstructiv e pulmonary disease 993544423 Active 2024 Not Available [facility] 5 08:24:02 Hypokalemi a 83561112 Active 2024 Not Available [facility] 5 18:52:21 Anemia in chronic kidney disease 117336595 Active 2024 Not Available [facility] 5 18:52:21 Chronic kidney disease stage 4 147560512 Active 2024 Not Available [facility] 5 08:11:16 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 379635967 Active 2024 Not Available [facility] 5 08:15:08 Pulmonary hypertensi on 85123860 Active 2024 Not Available [facility] 08:16:08 Acute kidney injury 71578052 Active 2024 Not Available [facility] 5 08:18:05 Retention of urine 976554848 Active 2024 Not Available [facility] 5 08:18:06 Extreme obesity with alveolar hypoventil ation 199540491 Active 2024 Not Available [facility] 5 08:20:00 Type 2 diabetes mellitus without complicati on 639512757 Active 2024 Not Available [facility] 5 08:20:34 Acute non-ST segment elevation myocardial infarction 692479485 Active 2024 Not Available [facility] 5 08:24:59 Muscle weakness 04718489 Active 2024 Not Available [facility] 5 09:08:47 Oropharyng eal dysphagia 41130587 Active 2024 Not Available [facility] 5 09:10:38 Chronic hypoxemic respirator y failure 961616650 Active 2024 Not Available [facility] 08:07:43 Congestive heart failure 49738320 Active 2024 Not Available [facility] 5 08:10:18 Problem Notes None recorded. Medical Equipment None Reported. Allergies Allergen ID Allergen Name Allergen Category Reaction Reaction Severity Criticality Documentation Date Start Date Code Code System Note Provider Name and Address Organization Details Recorded Time 21500 ibuprofen medicatio n Not available Not available Not available 08/11/20242024 5640 RxNorm Not Available [facility] 18:52:23 98187 codeine medicatio n Not available Not available Not available 08/11/20242024 2670 RxNorm Not Available [facility] 18:52:23 Medications Name Sig Start Date Stop Date Status Note LastModified by Organization Details LastModified Time furosemide 40 mg tablet Give 40 mg by mouth two times a day for diuretic 2024 active Not Available Not Available Not Avai lable atorvastati n 40 mg tablet Give 40 mg by mouth one time a day for HIGH CHOLESTER OL 2024 active Not Available Not Available Not Avai lable acetaminoph en 325 mg tablet Give 650 mg by mouth every 4 hours as needed for Pain AND Give 650 mg by mouth every 4 hours as needed for Elevated Temperatu re 2024 active Not Available Not Available Not Avai lable prednisone 10 mg tablet Give 40 mg by mouth one time a day for COPD for 4 Days AND Give 30 mg by mouth one time a day for COPD for 4 Days AND Give 20 mg by mouth one time a day for COPD for 4 Days AND Give 10 mg by mouth one time a day for COPD for 4 Days 05/30 completed Not Available Not Available Not Available Proventil 2.5 mg/3 mL (0.083 %) solution for nebulizatio n 1 vial inhale orally via nebulizer every 4 hours as needed for wheezing/ SOB 2024 active Not Available Not Available Not Avai lable amlodipine 5 mg tablet Give 5 mg by mouth one time a day for HTN 2024 active Not Available Not Available Not Avai lable lorazepam 0.5 mg tablet Give 0.5 mg by mouth two times a day for anxiety 05/29 completed Not Available Not Available Not Available benzonatate 100 mg capsule Give 100 mg by mouth every 8 hours as needed for cough administe r 3x daily as needed 2024 active Not Available Not Available Not Avai lable gemfibrozil 600 mg tablet Give 600 mg by mouth two times a day for CHOLESTER OL 2024 active Not Available Not Available Not Avai lable lorazepam 1 mg tablet 1/2 tab (0.5 mg) bid scheduled , and 1 tab (1 mg) po q 6 hrs prn anxiety/S OB 2024 active Not Available Not Available Not Avai lable Laxative (sennosides ) 8.6 mg tablet Give 1 tablet by mouth every 24 hours as needed for Constipat ion 2024 active Not Available Not Available Not Avai lable levofloxaci n 750 mg tablet Give 750 mg by mouth one time a day for PN for 3 Days 2024 active Not Available Not Available Not Avai lable Ventolin HFA 90 mcg/actuati on aerosol inhaler 2 puff inhale orally every 6 hours as needed for SOB 2024 active Not Available Not Available Not Avai lable oxycodone 5 mg tablet Take 1 tablet every 8 hours by oral route as needed. 2023 active Not Available Not Available Not Avai lable insulin glargine (U-100) 100 unit/mL (3 mL) subcutaneou s pen Inject 25 unit subcutane ously one time a day for diabetic 2024 active Not Available Not Available Not Avai lable Lac-Hydrin Twelve 12 % lotion Apply to bilateral legs topically every day and evening shift 2024 active Not Available Not Available Not Avai lable sodium phosphates 19 gram-7 gram/197 mL enema Insert 1 unit rectally every 24 hours as needed for Constipat ion Use only if Bisacodyl Supposito ry is ineffecti ve 2024 active Not Available Not Available Not Avai lable Jardiance 10 mg tablet Give 10 mg by mouth one time a day for DIABETIC 2024 active Not Available Not Available Not Avai lable Lokelma 10 gram oral powder packet Give 1 packet by mouth one time a day for LOW K 2024 active Not Available Not Available Not Avai lable OneLAX Bisacodyl 10 mg rectal suppository Insert 1 supposito ry rectally every 24 hours as needed for constipat ion Use if Senna is Ineffecti ve 2024 active Not Available Not Available Not Avai lable potassium chloride 10 mEq oral packet Give 10 mEq by mouth one time a day for low potassium lrvel until 5 02:59 05/25 completed Not Available Not Available Not Available Vitals Date Recorded Body height Body weight Body mass index (BMI) Heart rate Respiratory rate Body temperature Oxygen saturation Oxygen saturation in Arterial blood by Pulse oximetry Systolic And Diastolic Provider Name and Address Organization Details Last Updated DateTime 4 167.64 cm 67538.2 5 g 32.8 kg/m2 74 /min 16 /min 97.9 [degF] 95 % 95 % 133/72 mm[Hg] Eloina Odom NP [address] [facility], [address], [place], [address], [place] [facility] 4 08:16:49 Social History Question Answer Notes LastModified by Organizat ion Details LastModified Time Tobacco Smoking Status Former Smoker Not Available [employer] 08/21/2020 03:13:21 Do You Have An Advance Directive? No Full Code [id number] Information not available 08/21/2020 What Is Your Code Status? Full Code [email or web address] Information not available 09/01/2024 Do You Have A Medical Power Of [employer]? Yes Has HCP [email or web address] Information not available 08/11/2024 What Was The Date Of Your Most Recent Tobacco Screening? 08/11/2024 [email or web address] Information not available 08/11/2024 Do You Have An Out Of Hospital DNR? Yes [email or web address] Information not available 09/01/2024 How Much Tobacco Do You Smoke? 1.5 PPD [id number] Information not available 08/21/2020 Has Tobacco Cessation Counseling Been Provided? No [email or web address] Information not available 08/11/2024 How Many Years Have You Smoked Tobacco? 25 [id number] Information not available 08/21/2020 Sex: Unknown Functional Status Question Answer Note LastModified by Organizat ion Details LastModified Time Do you use any illicit or recreational drugs? No [email or web address] Information not available 08/11/2024 Do you or have you ever used any other forms of tobacco or nicotine? No [email or web address] Information not available 08/11/2024 What is your level of alcohol consumption? None [email or web address] Information not available 08/11/2024 Mental Status None recorded. Family History Relationship Description Onset Age of this Age Resolved Age Notes LastModified by Organization Details LastModified Time Father Disorder of cardiovascul ar system [email or web address] Not available 2023 11:24:15 Medical History No medical history recorded. Gynecological HistoryNo gynecological history recorded. Obstetrics History GPAL:G 0 P 0 0 0 0 Immunizations Vaccine Type Date Status Note Provider Nam e and Address Organization Details Recorded Time influenza, unspecified formulation 11/10/2021 completed Jessica gonsalez [place] [facility] 08/10/2024 14:21:03 Past Encounters Encounter ID Performer Location Encounter Start Date Encounter Closed Date Diagnosis/Indication Diagnosis SNOMED-CT Code Diagnosis ICD10 Code Diagnosis IMO Codes Diagnosis Note [id number] [facility] MD [facility] [address] [place] [address] [place] [address] 06/01/2019 14:38:26 06/08/2019 15:41:33 Acute hypoxemic respiratory failure 041869085 J96.01 see HPIseconda ry to aspiration dx with dysphagiaC HF exacerbati on with recent dx of diastolic CHFmonitor respirator y functionto be scheduled for sleep study due to concern for OSAtitrate O2 in patient with baseline COPD Diastolic heart failure 569006384 I50.33 see HPIappears chronicall y ill due to multiple co-morbid conditions recent dx with diuresis of 18 liters at prior hospitaliz ationnow onlasix 40 mg bidmonitor weights and fluid statusmoni tor respirator y and renal functionti trate medication s prn Dysphagia 28132070 R13.1 2 see HPIeval by speechnow on ground mech soft dietrepeat speech eval prn Chronic ob structive pulmonary disease 85864684 J41.1 hx tobacco quit > 30 yrs priormonit or respirator y functionto be scheduled for sleep study with concern for OSApulmona ry consult prn Essential hypertension 19164644 I10 norvasc 5 mg qdlasix 40 mg bidmonitor bp and renal function Asthenia 28444165 R53.1 PT OT eval and treatmonit or fall risk Diabetes mellitus 995071 09 E11.9 hx of DMonmetfor min 1000 mg bid with 500 mg q noonglipiz nneka 5 mg bidinsulin SSmonitor blood glucose Hypothyroidism 95521146 E03.8 synthroid 200 mcg qdmonitor tsh prn Hyperlipidemia 29657172 E78.49 gemfibrozi l 600 mg bidlipitor 40 mg qd continue Obesity 658433686 E66.01 dietary eval at baseline [id number] [address] [facility] [address] [place] [address] 06/06/2019 11:35:48 06/08/2019 16:08:53 Hypoxia 775697573 R09.02 send to ER for this d/t sat 50% on O2 with chest pain. Acute kidney injury 1466 9001 N17.9 likely d/t overdiures is. had been on lasix 40 bid, sending to ER, may need this held. Acute hypo xemic respiratory failure 336182675 J96.01 see HPIseconda ry to aspiration dx with dysphagiaC HF exacerbati on with recent dx of diastolic CHFmonitor respirator y functionto be scheduled for sleep study due to concern for OSAtitrate O2 in patient with baseline COPD Diastolic heart failure 987049701 I50.33 see HPIappears chronicall y ill due to multiple co-morbid conditions recent dx with diuresis of 18 liters at prior hospitaliz ationhere was on:lasix 40 mg bid*Now appearing dry- may need to hold diuretics at hospital. Dysphagia 37323123 R13.1 2 see HPIeval by speechnow on ground [facility] soft dietrepeat speech eval prn Chronic ob structive pulmonary disease 18453571 J41.1 hx tobacco quit > 30 yrs priorsendi ng to ER for hypoxia, chest pain, ARF [id number] ALLAN PRADHAN NP [facility] [address] [facility], [place] [address] 08/11/2024 10:50:24 08/15/2024 09:32:52 Acute hypoxemic respiratory failure 505961069 J96.01 [place] related to COPD and acute on chronic CHF.Respon ded well to interventi ons in hosp.Chuck nue O2 @ 2L - chronic use.Contin ue inhalers for COPD, bumex for CHF.Monito r closely Chronic ob structive pulmonary disease 18909057 J41.1 Treated for exac. in hosp. with nebs and steroids with improvemen t.Continue O2 - uses 2L chronicall y at home.Chuck nue:duoneb prnalbuter ol MDI prn - at bedside for self administra tion.Monit or sats, resp. status for change. Pneumonia 349973458 J18. 9 Treated with ceftriaxon e and azithromyc in x 7 days with improvemen t, transition ed to Augmentin 875 mg bid x 3d and Doxy 100 mg bid x 3d upon d/c to complete a 10 day course of tx.Monitor resp. sx. Diastolic heart failure 008409794 I50.33 Treated with IV lasix in hosp., changed back to bumex 2 mg qd with improvemen t in condition. Continue bumexHeart healthy/lo w salt dietDaily VS and weightsLab s q mond. x 3Follow for decompensa tion Pleural effusion 3033380 8 J90 s/p thoracente sismonitor Diabetes mellitus 880220 09 E11.9 A1C 7.6%Contin ue home meds:basag lar 15 units qdjardianc e 10 mg qdlispro SSICarb control dietAdjust meds prn Essential hypertension 79229945 I10 Continue home meds:norva sc 10 mg qdbumex 2 mg qdMoniotor VS, labs, adjust meds prn Hyperlipidemia 73945046 E78.49 continue atorvastat in 40 mg qdgemfibro zil stopped due to interventi on with lipitor LF Ts WNRLipid panel if stays senior care Hypothyroidism 55933771 E03.8 Continue levothyrox ine 200 mcg qdTSH, FT4 prn Gastroesop hageal reflux disease without esophagitis 534578880 K21.9 ??started omeprazole 20 mg qd while in the hospitalmo nitor GI sx.conside r stopping in 6 wks. if no sx. Anxiety 90892892 F41.9 Continue home meds:cymba lta 20 mg qdativan 0.5 mg tid prn (x14d, then re-eval)Ps ych referral PRNMonitor mood, behaviors Chronic ki dney disease stage 3 318336635 N18.30 Monitor labs - BMP q mond. x 3Maintain hydrationA void nephrotoxi cs Chronic pain syndrome 37 8937470 G89.4 Continue:c ymbalta 20 mg qdoxycodon e 5 mg q8 hr prnPt. states chronic low back pain, knee pain, and sacral pain due to a fractured tailbone at 20 yrs. of age) Obstructiv e sleep apnea syndrome 92624894 G47.33 Per pt.Does not use CPAP, instead wears O2 2L RTC at home. Asthenia 89319816 R53.1 Deconditio rosana due to hospitaliz ation and chronic medical conditions .PT OT eval and tx.Goal is to return home. Open wound 615942976 T14 .8XXA Open wound sacral area - [...] with minerals dailyDieta ry supplement s per brass wind instrument maker Concern of potential breakdown on heels as does not allow pillow under legs to float heels due to chronic sacral pain from old fracture. Can try heel boots if cyndi. to help reduce pressure as well as skin prep qd.Monitor closely. [id number] Hal Cole MD [address] [address] 08/15/2024 12:44:18 08/17/2024 11:09:33 Asthenia 34047252 R53.1 PT OT Eval and treatmonit or fall risk and need for increased support in community Acute hypo xemic respiratory failure 054036475 J96.01 see HPI due to CHF, COPD, pneumoniao n O2 at baselinemo nitor respirator y status and need to repeat imaging Chronic ob structive pulmonary disease 10985366 J44.1 On O2 at baselineco mpleted steroid coursecont inue outpatient medsmonito r respirator y status Pneumonia 018770746 J15. 8 see HPI now to complete doxy and augmentinm onitor need to reimage Diastolic heart failure 040127900 I50.33 required IV lasix in hospital now onbumex 2 mg qdmonitor respirator y and fluid statusnote d ARF on CRF Diabetes mellitus 502802 09 E11.9 continue out patient medsmonito r need to titrate Hyperlipidemia 65717024 E78.49 medication s adjusted in hospital now onlipitor 40 mg qd Hypothyroidism 52925345 E03.8 synthroid 200 mcg qdtsh prn Gastroesop hageal reflux disease without esophagitis 257389664 K21.9 recently started on PPImonitor need to continuetr ial off in 2-4 weeks Acute kidney injury 1466 9001 N17.8 ARF on CRFmonitor renal functionav oid nephrotoxi c meds as ablenephro consult prn [id number] ALLAN PRADHAN NP [facility] [address] 08/16/2024 11:32:50 08/24/2024 10:16:43 Asthenia 15621930 R53.1 Deconditio rosana due to hospitaliz ation and chronic medical conditions .Continue PT OT eval and tx.Goal is to return home. Acute hypo xemic respiratory failure 628064075 J96.01 [place] related to COPD and acute on chronic CHF.Respon ded well to interventi ons in hosp.Chuck nue O2 @ 2L - chronic use.Contin ue inhalers for COPD, bumex for CHF.Monito r closely Chronic ob structive pulmonary disease 13287127 J41.1 Treated for exac. in hosp. with nebs and steroids with improvemen t.Continue O2 - uses 2L chronicall y at home.Chuck nue:duoneb prnalbuter ol MDI prn - at bedside for self administra tion.Monit or sats, resp. status for change. Pneumonia 521423482 J18. 9 Treated with ceftriaxon e and azithromyc in x 7 days with improvemen t, transition ed to Augmentin 875 mg bid x 3d and Doxy 100 mg bid x 3d upon d/c to complete a 10 day course of tx.Monitor resp. sx. Diastolic heart failure 307041727 I50.33 Treated with IV lasix in hosp., changed back to bumex 2 mg qd with improvemen t in condition. Continue bumexHeart healthy/lo w salt dietDaily VS and weights (reminded nursing of daily weights and record)Lab s q mond. x 3Follow for decompensa tion Pleural effusion 8334981 8 J90 s/p thoracente sismonitor Chronic ki dney disease stage 3 093439228 N18.30 Monitor labs - BMP q mond. x 3Maintain hydrationA void nephrotoxi cs Diabetes mellitus 099118 09 E11.9 A1C 7.6%BS mostly 100sContin ue home meds:basag lar 15 units qdjardianc e 10 mg qdlispro SSICarb control dietAdjust meds prn Essential hypertension 26500743 I10 Continue home meds:norva sc 10 mg qdbumex 2 mg qdMoniotor VS, labs, adjust meds prn Hyperlipidemia 14506910 E78.49 continue atorvastat in 40 mg qdgemfibro zil stopped due to interventi on with lipitor LF Ts WNRLipid panel if stays senior care Hypothyroidism 93433134 E03.8 Continue levothyrox ine 200 mcg qdTSH, FT4 prn Gastroesop hageal reflux disease without esophagitis 084526869 K21.9 ??started omeprazole 20 mg qd while in the hospitalmo nitor GI sx.conside r stopping in 6 wks. if no sx. Anxiety 94077533 F41.9 Continue home meds:cymba lta 20 mg qdativan 0.5 mg tid prn (x14d, then re-eval)Ps h referral PRNMonitor mood, behaviors Chronic pain syndrome 37 2931988 G89.4 Continue:c ymbalta 20 mg qdoxycodon e 5 mg q8 hr prnPt. states chronic low back pain, knee pain, and sacral pain due to a fractured tailbone at 20 yrs. of age) Obstructiv e sleep apnea syndrome 68270218 G47.33 Per pt.Does not use CPAP, instead wears O2 2L RTC at home. Open wound 869874150 T14 .8XXA Open wound sacral area - developed in hosp.Suspe ct started first as MASD due to chronic incontinen ce, now with opening in skin.Plan -Continue: Triad cream q shift and prnPressur e relief as much as possibleRe ferred to Wound PA-CMVI with minerals daily addedDieta ry supplement s per brass wind instrument maker - currently on glucerna bid. Concern of potential breakdown on heels as does not allow pillow under legs to float heels due to chronic sacral pain from old fracture. Can try heel boots if cyndi. to help reduce pressure as well as skin prep qd.Monitor closely. [id number] ALLAN PRADHAN NP [facility] [address] [place] [address] 08/23/2024 10:50:36 08/24/2024 10:28:22 Asthenia 51852414 R53.1 Deconditio rosana due to hospitaliz ation and chronic medical conditions .PT OT eval and tx., making gains.Goal is to return home. Acute hypo xemic respiratory failure 517994145 J96.01 [place] related to COPD and acute on chronic CHF.Respon ded well to interventi ons in hosp., currently stable.Con tinue O2 @ 2L - chronic use.Contin ue inhalers for COPD, bumex for CHF.Monito r closely Chronic ob structive pulmonary disease 67587667 J41.1 Treated for exac. in hosp. with nebs and steroids with adamaris wright.Continue O2 - uses 2L chronicall y at home.Chuck nue:duoneb prnalbuter ol MDI prn - at bedside for self administra tion.Monit or sats, resp. status for change. Pneumonia 362382882 J18. 9 Treated with ceftriaxon e and azithromyc in x 7 days with adamaris t, transition ed to Augmentin 875 mg bid x 3d and Doxy 100 mg bid x 3d upon d/c to complete a 10 day course of tx.Resolvi ng, continue to monitor resp. sx. Diastolic heart failure 279007768 I50.33 Treated with IV lasix in hosp., changed back to bumex 2 mg qd with adamaris t in condition. Continue bumexHeart healthy/lo w salt dietDaily VS and weights (reminded nursing again of daily weights and record)Lab s q mond. x 3Follow for decompensa tion Pleural effusion 1663169 8 J90 s/p thoracente sismonitor Chronic ki dney disease stage 3 827900428 N18.30 Monitor labs - BMP q mond. 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 if no sx. Anxiety 90574883 F41.9 Continue home meds:cymba lta 20 mg qdativan 0.5 mg tid prn (x14d, then re-eval)Ps h referral PRNMonitor mood, behaviors Chronic pain syndrome 37 8053188 G89.4 Continue:c ymbalta 20 mg qdoxycodon e 5 mg q8 hr prnPt. states chronic low back pain, knee pain, and sacral pain due to a fractured tailbone at 20 yrs. of age) Obstructiv e sleep apnea syndrome 37691347 G47.33 Per pt.Does not use CPAP, instead wears O2 2L RTC at home. Open wound 875111312 T14 .8XXA Open wound sacral area - developed in hosp.Suspe ct started first as MASD due to chronic incontinen ce, now with opening in skin.Plan -Continue: Triad cream q shift and prnPressur e relief as much as possibleRe ferred to Wound PA-CMVI with minerals daily addedDieta ry supplement s per brass wind instrument maker - currently on glucerna bid. Concern of potential breakdown on heels as does not allow pillow under legs to float heels due to chronic sacral pain from old fracture. Can try heel boots if cyndi. to help reduce pressure as well as skin prep qd.Monitor closely. Constipation 54621934 K5 9.00 discussed with VALENTIN, last BM 3 days ago.add miralax daily, start today.enco urage OOB, fiber, fluids [id number] ALLAN PRADHAN, CHIO [address] [place] [address] 09/01/2024 12:36:05 09/02/2024 11:15:18 Asthenia 27892319 R53.1 Deconditio rosana due to hospitaliz ation and chronic medical conditions .PT OT eval and tx., making gains.Goal is to return home. Acute hypo xemic respiratory failure 827690881 J96.01 [place] related to COPD and acute on chronic CHF.Respon ded well to interventi ons in hosp., currently stable.Con tinue O2 @ 2L - chronic use.Contin ue inhalers for COPD, bumex for CHF.Monito r closely Chronic ob structive pulmonary disease 09799228 J41.1 Treated for exac. in hosp. with nebs and steroids with adamaris wright.Continue O2 - uses 2L chronicall y at home.Chuck nue:ducarab prnalbuter ol MDI prn - at bedside for self administra tion.Monit or sats, resp. status for change. Pneumonia 176464979 J18. 9 Treated with ceftriaxon e and azithromyc in x 7 days with adamaris wright, transition ed to Augmentin 875 mg bid x 3d and Doxy 100 mg bid x 3d upon d/c to complete a 10 day course of tx.Resolvi ng, continue to monitor resp. sx. Diastolic heart failure 714728349 I50.33 Treated with IV lasix in hosp., changed back to bumex 2 mg qd with adamaris wright in condition. Continue bumexHeart healthy/lo w salt dietDaily VS and weights (reminded nursing AGAIN of daily weights and record)Lab s q mond. x 3Follow for decompensa tion Pleural effusion 2723834 8 J90 s/p thoracente sismonitor Chronic ki dney disease stage 3 574222534 N18.30 Monitor labs - BMP q mond. x 2 more timesMaint ain hydrationA void nephrotoxi cs Diabetes mellitus 465597 09 E11.9 A1C 7.6%BS mostly 100sContin ue home meds:basag lar 15 units qdjardianc e 10 mg qdlispro SSICarb control dietAdjust meds prn Essential hypertension 27833116 I10 Continue home meds:norva sc 10 mg qdbumex 2 mg qdMoniotor VS, labs, adjust meds prn Hyperlipidemia 93706924 E78.49 continue atorvastat in 40 mg qdgemfibro zil stopped due to interventi on with lipitor LF Ts WNRLipid panel if stays terminal operator Hypothyroidism 66697558 E03.8 Continue levothyrox ine 200 mcg qdTSH, FT4 prn Gastroesop hageal reflux disease without esophagitis 533460904 K21.9 ??started omeprazole 20 mg qd while in the hospitalmo nitor GI sx.conside r stopping in 6 wks. if no sx. Anxiety 18703354 F41.9 Continue home meds:cymba lta 20 mg qdativan 0.5 mg tid prn (x14d, then re-eval)[facility] PRNMonitor mood, behaviors Chronic pain syndrome 37 9344544 G89.4 Continue:c ymbalta 20 mg qdoxycodon e 5 mg q8 hr prnPt. states chronic low back pain, knee pain, and sacral pain due to a fractured tailbone at 20 yrs. of age) Obstructiv e sleep apnea syndrome 97193480 G47.33 Per pt.Does not use CPAP, instead wears O2 2L RTC at home. Open wound 803776601 T14 .8XXA Open wound sacral area - developed in hosp.[place] ct started first as MASD due to chronic incontinen ce, now with opening in skin.Plan -Continue: Triad cream q shift and prnPressur e relief as much as possibleRe ferred to Wound PA-CMVI with minerals daily addedDieta ry supplement s per brass wind instrument maker - currently on glucerna bid. Concern of potential breakdown on heels as does not allow pillow under legs to float heels due to chronic sacral pain from old fracture. Can try heel boots if cyndi. to help reduce pressure as well as skin prep qd.Monitor closely. Constipation 52423119 K5 9.00 Bowels still sluggishAl ready on miralax, now add senna-s 2 tabs daily, hold for loose stool.enco urage OOB, fiber, fluidsCont inue to monitor and adjust. [id number] ALLAN PRADHAN NP [address] [place] [address] 09/06/2024 14:01:29 09/07/2024 10:12:43 Asthenia 08613108 R53.1 Deconditio rosana due to hospitaliz ation and chronic medical conditions .PT OT eval and tx., making gains.Goal is to return home. Acute hypo xemic respiratory failure 517924554 J96.01 [place] related to COPD and acute on chronic CHF.Respon ded well to interventi ons in hosp., currently stable.Con tinue O2 @ 2L - chronic use.Contin ue inhalers for COPD, bumex for CHF.Monito r closely Chronic ob structive pulmonary disease 74389485 J41.1 Treated for exac. in hosp. with nebs and steroids with adamaris t.Continue O2 - uses 2L chronicall y at home.Chuck nue:duoneb prnalbuter ol MDI prn - at bedside for self administra tion.Monit or sats, resp. status for change. Pneumonia 730935083 J18. 9 Treated with ceftriaxon e and azithromyc in x 7 days with adamaris t, transition ed to Augmentin 875 mg bid x 3d and Doxy 100 mg bid x 3d upon d/c to complete a 10 day course of tx.Resolvi ng, continue to monitor resp. sx. Diastolic heart failure 426650169 I50.33 Treated with IV lasix in hosp., changed back to bumex 2 mg qd with adamaris t in condition. Continue bumexHeart healthy/lo w salt dietDaily VS and weights (reminded nursing AGAIN of daily weights and record)CBC , BMP in am x 1Follow for decompensa tion Pleural effusion 7512058 8 J90 s/p thoracente sismonitor Chronic ki dney disease stage 3 040769756 N18.30 Monitor labs - BMP x 1 in amMaintain hydrationA void nephrotoxi cs Diabetes mellitus 987163 09 E11.9 A1C 7.6%BS mostly 100s - 200sContin ue home meds:basag lar 15 units qdjardianc e 10 mg qdlispro SSICarb control dietAdjust meds prn Essential hypertension 63445538 I10 Continue home meds:norva sc 10 mg qdbumex 2 mg qdMoniotor VS, labs, adjust meds prn Hyperlipidemia 69488611 E78.49 continue atorvastat in 40 mg qdgemfibro zil stopped due to interventi on with lipitor LF Ts WNRLipid panel if stays terminal operator Hypothyroidism 83059941 E03.8 Continue levothyrox ine 200 mcg qdTSH, FT4 prn Gastroesop hageal reflux disease without esophagitis 434702752 K21.9 ??started omeprazole 20 mg qd while in the hospitalmo nitor GI sx.conside r stopping in 6 wks. if no sx. Anxiety 17826385 F41.9 Continue home meds:cymba lta 20 mg qdativan 0.5 mg tid prn (x14d, then re-eval)Ps ych referral PRNMonitor mood, behaviors Chronic pain syndrome 37 8783905 G89.4 Continue:c ymbalta 20 mg qdoxycodon e 5 mg q8 hr prnPt. states chronic low back pain, knee pain, and sacral pain due to a fractured tailbone at 20 yrs. of age) Obstructiv e sleep apnea syndrome 59102957 G47.33 Per pt.Does not use CPAP, instead wears O2 2L RTC at home. Open wound 192382504 T14 .8XXA Open wound sacral area - [...] minerals daily addedDieta ry supplement s per brass wind instrument maker - currently on glucerna bid. Concern of potential breakdown on heels as does not allow pillow under legs to float heels due to chronic sacral pain from old fracture. Can try heel boots if cyndi. to help reduce pressure as well as skin prep qd.Monitor closely. Constipation 70176129 K5 9.00 No BM since 08/31 if documentat ion correct.[place] bowel meds not used.Curre ntly on miralax daily.[place] a-s 2 tabs bid ordered 09/01, currently not on MARAbdomen distended. Plan -Fleets nowMag Citrate 1/2 bottle today, repeat 1/2 bottle in am if poor results.In crease miralax to bidRe-orde r senna-s 2 tabs bid, hold for loose stoolMonit or closely.en courage OOB, fiber, fluidsCont inue to monitor and adjust. [id number] ALLAN PRADHAN NP [address] [address] 09/08/2024 13:47:32 09/09/2024 11:13:19 Constipation 57489225 K59.00 No BM since 08/31 if documentat ion correct.[place] bowel meds had not been utilized. Mag Citrate and fleets ordered with very good results. Now on:Miralax bidSenna-s 2 tabs bid Plan -Continue current laxativesE ncourage OOB, fiber, fluidsCont inue to monitor closely and adjust PRN Asthenia 67726844 R53.1 Deconditio rosana due to hospitaliz ation and chronic medical conditions .PT OT eval and tx., making gains.Goal is to return home. Open wound 438156841 T14 .8XXA Open wound sacral area - [...] minerals daily addedDieta ry supplement s per brass wind instrument maker - currently on glucerna bid. Concern of potential breakdown on heels as does not allow pillow under legs to float heels due to chronic sacral pain from old fracture. Can try heel boots if cyndi. to help reduce pressure as well as skin prep qd.Monitor closely. Acute hypo xemic respiratory failure 155610838 J96.01 [place] related to COPD and acute on chronic CHF.Respon ded well to interventi ons in hosp., currently stable.Con tinue O2 @ 2L - chronic use.Contin ue inhalers for COPD, bumex for CHF.Monito r closely Chronic ob structive pulmonary disease 52731580 J41.1 Treated for exac. in hosp. with nebs and steroids with adamaris t.Continue O2 - uses 2L chronicall y at home.Chuck nue:duoneb prnalbuter ol MDI prn - at bedside for self administra tion.Monit or sats, resp. status for change. Pneumonia 437386828 J18. 9 Treated with ceftriaxon e and azithromyc in x 7 days with adamaris t, transition ed to Augmentin 875 mg bid x 3d and Doxy 100 mg bid x 3d upon d/c to complete a 10 day course of tx.Resolvi ng, continue to monitor resp. sx. Diastolic heart failure 535474222 I50.33 Treated with IV lasix in hosp., changed back to bumex 2 mg qd with adamaris t in condition. Continue bumexHeart healthy/lo w salt dietDaily VS and weights (reminded nursing AGAIN of daily weights and record)CBC , BMP in am x 1Follow for decompensa tion Pleural effusion 9339498 8 J90 s/p thoracente sismonitor Chronic ki dney disease stage 3 553608178 N18.30 Monitor labs - BMP x 1 in amMaintain hydrationA void nephrotoxi cs Diabetes mellitus 871412 09 E11.9 A1C 7.6%BS mostly 100s - 200sContin ue home meds:basag lar 15 units qdjardianc e 10 mg qdlispro SSICarb control dietAdjust meds prn Essential hypertension 99302127 I10 Continue home meds:norva sc 10 mg qdbumex 2 mg qdMoniotor VS, labs, adjust meds prn Hyperlipidemia 62770370 E78.49 continue atorvastat in 40 mg qdgemfibro zil stopped due to interventi on with lipitor LF Ts WNRLipid panel if stays terminal operator Hypothyroidism 67599670 E03.8 Continue levothyrox ine 200 mcg qdTSH, FT4 prn Gastroesop hageal reflux disease without esophagitis 862130695 K21.9 ??started omeprazole 20 mg qd while in the hospitalmo nitor GI sx.conside r stopping in 6 wks. if no sx. Anxiety 14055232 F41.9 Continue home meds:cymba lta 20 mg qdativan 0.5 mg tid prn (x14d, then re-eval)Ps [facility] referral PRNMonitor mood, behaviors Chronic pain syndrome 37 1969060 G89.4 Continue:c ymbalta 20 mg qdoxycodon e 5 mg q8 hr prnPt. states chronic low back pain, knee pain, and sacral pain due to a fractured tailbone at 20 yrs. of age) Obstructiv e sleep apnea syndrome 83773085 G47.33 Per pt.Does not use CPAP, instead wears O2 2L RTC at home. [id number] [facility] [address] 09/14/2024 09:01:39 09/15/2024 09:07:05 Constipation 56367895 K59.00 resolvedMa g Citrate and fleets ordered with very good results.Miralax daily09/14 change Senna-s 2 tabs from bid to dailyEncou rage OOB, fiber, fluidsCont inue to monitor closely and adjust PRN Asthenia 57845426 R53.1 Deconditio rosana due to hospitaliz ation and chronic medical conditions .PT OT eval and tx., making gains.Goal is to return home. Open wound 946782435 T14 .8XXA Open wound sacral area - [...] with minerals dailyDieta ry supplement s per brass wind instrument maker - currently on glucerna bid. Concern of potential breakdown on heels as does not allow pillow under legs to float heels due to chronic sacral pain from old fracture. Can try heel boots if cyndi. to help reduce pressure as well as skin prep qd.Monitor closely. Acute hypo xemic respiratory failure 420200894 J96.01 [place] related to COPD and acute on chronic CHF.Respon ded well to interventi ons in hosp., currently stable.Con tinue O2 @ 2L - chronic use.Contin ue inhalers for COPD, bumex for CHF.Monito r closely Chronic ob structive pulmonary disease 47865702 J41.1 Treated for exac. in hosp. with nebs and steroids with improvemen t.Continue O2 - uses 2L chronicall y at home.Chuck nue:duoneb prnalbuter ol MDI prn - at bedside for self administra tion.Monit or sats, resp. status for change. Pneumonia 422928157 J18. 9 resolvedTr eated with ceftriaxon e and azithromyc in x 7 days with improvemen t, transition ed to Augmentin 875 mg bid x 3d and Doxy 100 mg bid x 3d upon d/c to complete a 10 day course of tx.Resolvi ng, continue to monitor resp. sx.monitor for need to repeat cxr if resp symptoms persist/re turn Diastolic heart failure 378152992 I50.33 Treated with IV lasix in hosp.,mehdi contreras back to bumex 2 mg qd with improvemen t in condition. Heart healthy/lo w salt dietDaily VS and weightspt currently 218, will need another weight(8 lb increase since admit)nsg awareFollo w for decompensa tionmonito rbmp and cbc maggi 09/15 Pleural effusion 9371637 8 J90 stable without increased work of breathings /p thoracente sis from hospmonito r Chronic ki dney disease stage 3 403726038 N18.30 bmp and cbc as above, monitor need to continueMa intain hydrationA void nephrotoxi cs Diabetes mellitus 239760 09 E11.9 A1C 7.6%BS mostly 100s - 200sContin ue :basaglar 15 units qdjardianc e 10 mg qdlispro SSICarb control dietAdjust meds prn Essential hypertension 15108313 I10 Continue:n orvasc 10 mg qdbumex 2 mg qdMoniotor VS, labs, adjust meds prn Hyperlipidemia 06867925 E78.49 continueat orvastatin 40 mg qdgemfibro zil stopped due to interventi on with lipitor LF Ts WNRLipid panel if stays senior care Hypothyroidism 55750343 E03.8 Continuele vothyroxin e 200 mcg qdTSH, FT4 prn Gastroesop hageal reflux disease without esophagitis 068832479 K21.9 contomepra zole 20 mg qd (? started while in the hospital)m onitor GI sx.conside r stopping in 6 wks. if no sx. Anxiety 41602683 F41.9 Continue :cymbalta 20 mg qdativan 0.5 mg tid prn (x14d, then re-eval)ev al on sych referral PRNMonitor mood, behaviors Chronic pain syndrome 37 2953583 G89.4 Continue:c ymbalta 20 mg qdoxycodon e 5 mg q8 hr prnPt. states chronic low back pain, knee pain, and sacral pain due to a fractured tailbone at 20 yrs. of age) Obstructiv e sleep apnea syndrome 40146430 G47.33 Per pt.Does not use CPAP, instead wears O2 2L RTC at home. [id number] Carlee Amezcua MD [address] [address] 09/27/2024 20:05:35 09/28/2024 10:42:39 Diastolic heart failure 276923656 I50.33 Appears euvolemic. Last wt on 09/24 was down 5# from previous wt.Daily wts have been ordered 4 times and not being done.Wts ordered for M/W/FConti nue Bumex 2 mg qd.Monitor resp. status, fluid status, wts and labs. Asthenia 55737802 R53.1 Improved back to baseline per pt.Unclear if rehab agrees.Molina villareal have SS consult with rehab and pt tomorrow to see if ready for d/c. Open wound 440812619 T14 .8XXA Resolved.C ontinue good skin care to prevent reopening. Acute hypo xemic respiratory failure 552602749 J96.01 Resolved.A s above. Chronic ob structive pulmonary disease 06668748 J41.1 Back to baseline per pt.Continu e atrovent 2 puffs q 6 hrs prn.Contin ue supplement al O2 titrated to sats >90%Monito r resp status. Pleural effusion 3010030 8 J90 Thought to be due to PNA and CHF.Txed with abxs and thoracente sis.No f/u needed unless increased sxs.Monito r resp status Chronic ki dney disease stage 3 352009042 N18.32 Back to baseline.C ontinue to avoid nephrotoxi c meds as able.Monit or labs.Renal consult prn. Diabetes mellitus 893431 09 E11.9 Sugars in adequate control.Co ntinue basaglar 15 units qd, jardiance 10 mg qd and SSIMonitor fingerstic ks TID and HgA1C q 3 months. Essential hypertension 47018865 I10 In good control since here.Chuck nue amlodipine 10 mg qd and bumex 2 mg qdMonitor BP and labs. Hyperlipidemia 57137291 E78.49 Continue atorvastat in 40 mg qdMonitor labs as outpt Hypothyroidism 51389796 E03.8 Continue levothyrox ine 200 mcg qdI can't find a TSH in [facility] systems.Wi order for AM Gastroesop hageal reflux disease without esophagitis 876285040 K21.9 No current sxs.Contin ue omeprazole 20 mg qdMonitor GI sx. Pneumonia 571919647 J18. 9 Resolved Anxiety 85839988 F41.1 Mood good tonight.Co ntinue Cymbalta 20 mg qd and lorazepam 0.5 mg TID prn.Monito r mood.Psych following. Chronic pain syndrome 37 3489506 G89.4 Continue meds as above and oxycodone 5 mg q 8 hrs prn and APAP 650 mg q 4 hrs prn.Monito r sxs. Obstructiv e sleep apnea syndrome 71624227 G47.33 Not on CPAP.F/U as outpt. [id number] Eloina Odom NP [facility] [address] 09/30/2024 08:15:34 10/03/2024 13:20:59 Diastolic heart failure 533091775 I50.33 Appears euvolemic. weight 203 on 09/24 last, down approx 5 lbs hereweight daily at homeContin ue Bumex 2 mg qd.Monitor resp. status, fluid status, at home with services and pcp outpt Asthenia 42263889 R53.1 Improved back to baseline per pt.Unclear if rehab agrees but pt insistent on going home.Pt able to walk approx 75 feet with walker and at baseline prior to hospitaliz ationmonit or with pcp outpt Chronic ob structive pulmonary disease 33022464 J41.1 Back to baseline per pt.Continu e atrovent 2 puffs q 6 hrs prn.Contin ue supplement al O2 2at liters baseline and titrated to sats >90%Monito r resp status outpt with pcp and services Pleural effusion 7954465 8 J90 Thought to be due to PNA and CHF.Txed with abxs and thoracente sis.No f/u needed unless increased sxs.Monito r resp status outpt with pcp Acute hypo xemic respiratory failure 275236447 J96.01 Resolved.A s above. Chronic ki dney disease stage 3 576214848 N18.32 Back to baseline. cr 1.5-1.9Con tinue to avoid nephrotoxi c meds as able.Monit or labs outpt with pcpRenal consult prn outpt Diabetes mellitus 105546 09 E11.9 Sugars in adequate control.mo stly 100-200sCo ntinue basaglar 15 units qd, jardiance 10 mg qd and SSIMonitor fingerstic ks TID and HgA1C q 3 months with pcp outpt Essential hypertension 18646872 I10 In good control since here.Chuck nue amlodipine 10 mg qd and bumex 2 mg qdMonitor BP and labs outpt with pcp prn Hyperlipidemia 17285574 E78.49 Continue atorvastat in 40 mg qdMonitor outpt with pcp Open wound 723644384 T14 .8XXA Resolved.C ontinue good skin care to prevent reopening. Hypothyroidism 32850002 E03.8 Continue levothyrox ine 200 mcg qdmonitor oupt with pcp Gastroesop hageal reflux disease without esophagitis 675413182 K21.9 No current sxs.Contin ue omeprazole 20 mg qdMonitor GI sx. outpt with pcp Pneumonia 655905763 J18. 9 Resolved Anxiety 27749491 F41.1 Mood good tonight.Co ntinue Cymbalta 20 mg qd and lorazepam 0.5 mg TID prn.Monito r mood outpt with pcp Chronic pain syndrome 37 4499827 G89.4 Continue meds as above and oxycodone 5 mg q 8 hrs prn and APAP 650 mg q 4 hrs prn.Monito r sxs. 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 711910 pt on both lokelma and kcl suppk 3.4 on 05/22op both lokelma and kclrepeat bmp on thu to see where she is at before adding anything back Chronic di astolic heart failure 897868353 I50.32 092503 inpt stay for chf exaccont lasix 40 mg bidnot on chloe/arb/bb for goal directed medical therapysta rt wts twice weeklymoni tor wts, labs, fluid status Diabetes mellitus 536720 09 E11.9 sugars are labile 90-300scon t jardiance 10 mg dailyincre ase to glargine 30 units qhscont accuchecks tid with lispro ss Hyperlipidemia 29467909 E78.49 cont lipitor 40 mg dailylipid s outpt Hypothyroidism 63239748 E03.8 cont synthroid 200 mcg dailythyro id panel outpt Obesity 392704268 E66.01 dietary eval on admitmonit or wtsprovide education on wt reduction Gastroesop hageal reflux disease without esophagitis 937800295 K21.9 cont scheduled antacidsmo nitor ss Dysphagia 47610153 R13.1 2 MBS while inptconsul t [employer] MECH[employer]IC to followcont current diet, adjust as tolerateds tart aspiration precaution s Chronic ki dney disease stage 3 494631222 N18.32 baseline cre 1.5-1.9 in dec, stableavoi d nephrotoxi c meds as ableon diuretics for chfwill consult renal if needed Chronic ob structive pulmonary disease 24990781 J41.1 treated inpt for copd exacremain s on supp O2wean as toleratedR T to followcont prednisone taper (ends 05/27)cont duoneb q4h scheduled and q4h prnmonitor resp status [id number] BIRD MARTINEZ NP-C [facility] [address], [place] [address] 05/23/2025 09:11:20 05/27/2025 20:13:35 Disorder of electrolytes 188238206 E87.8 921179 pt on both lokelma and kcl suppk 3.4 on 05/22op both lokelma and kclrepeat bmp on thu to see where she is at before adding anything back Diastolic heart failure 880442785 I50.33 inpt stay for chf exacno recorded wt on this ptlabs stable 05/22cont lasix 40 mg bidnot on chloe/arb/bb for goal directed medical therapywil l order wts twice weeklymoni tor wts, labs, fluid status Diabetes mellitus 611207 09 E11.9 sugars are labile 90-300scon t jardiance 10 mg dailyincre ase to glargine 30 units qhscont accuchecks tid with lispro ss Chronic ob structive pulmonary disease 24662464 J41.1 treated inpt for copd exacremain s on supp O2wean as toleratedR T to followcont prednisone taper (ends 05/27)cont duoneb q4h scheduled and q4h prnmonitor resp status [id number] MD ROMARIO Faith [address] [place] [address] 05/24/2025 10:32:54 05/27/2025 21:01:56 Acute exacerbation of chronic obstructive pulmonary disease 055481218 J44.1 0599371 s/p intubation 4 weeks ago from pneumonias low prednisone taper (10mg decrease every 4days)nebu lized albuterol 4h?? LAMA Primary hypothyroidism 54795631 E03.9 71277 levothyrox ine 200mcg daily Pulmonary hypertension 66211395 I27.20 4052 Benign ess ential hypertension 2382947 I10 3379 amlodipine 5mg daily / furosemide 40mg bidstable 05/24/2025 07:33 135 / 65 mmHg Lying l/arm osarong (Manual) 19:15 125 / 64 mmHg Sitting l/arm ajsmith (Manual) 15:01 123 / 69 mmHg Sitting l/arm ajsmith (Manual) 14:29 135 / 74 mmHg Lying l/arm osarong (Manual) 04:23 129 / 74 mmHg Sitting l/arm rpereira (Manual) 04:22 129 / 74 mmHg Sitting l/arm rpereira (Manual) 18:30 132 / 69 mmHg Lying l/arm ajsmith (Manual) 01:35 121 / 75 mmHg Lying l/arm amcmillain (Manual) 16:28 137 / 71 mmHg Sitting l/arm ajsmith (Manual) 01:29 129 / 72 mmHg Sitting l/arm rpereira (Manual) 20:09 129 / 72 mmHg Sitting r/arm Mixed anxi ety and depressive disorder [id number] F41.9 F32.A 081627 sertraline 75mg dailyloraz epam 0m5 mg bid and PRN lorazepam Extreme ob esity with alveolar hypoventilation [id number] E66.2 History of methicillin resistant Staphylococcus aureus infection 182604828 Z86.14 9918126 Dependence on continuous supplemental oxygen [id number] 9103 Z99.81 73600308 Type 2 kenia betes mellitus 03346906 E11.59 1574763 insulin glargine 25U daily + lispro ISS/ jardiance 10mg dailyexpec t variance with slow prednisone taper 05/24/2025 12:26 354.0 mg/dL (Manual) 08:59 270.0 mg/dL ptgosr71 (Manual) 08:59 270.0 mg/dL [id number] (Manual) 19:10 331.0 mg/dL osarong (Manual) 19:10 331.0 mg/dL osarong (Manual) 12:08 274.0 mg/dL ncassista (Manual) 09:36 102.0 mg/dL ncassista (Manual) 07:44 102.0 mg/dL ncassista (Manual) 17:48 308.0 mg/dL ajsmith (Manual) 17:48 308.0 mg/dL ajsmith (Manual) 09:28 99.0 mg/dL ajsmith (Manual) 09:28 99.0 mg/dL Chronic he art failure co-occurrent with normal ejection fraction [id number] 102 I50.32 [id number] 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 / COPD / pulmonary hypertensi ondiuretic / jardiance 10 mg Gastroesop hageal reflux disease without esophagitis 803525208 K21.9 923918 on scheduled antacids 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 8660635325 03 E11.69 E78.2 59558739 gemfibrozi l 600mg bid / atorvastat in 40mg daily For resuscitation 185396 001 Z78.9 1574488 [id number] ZULAY MILNER, CHIO REDSTONE [address] [place] [address] 05/24/2025 22:27:24 05/29/2025 03:51:47 Anxiety 36238190 F41.1 Continue ativanPsyc h consult prn Chronic ob structive pulmonary disease 57921398 J41.1 Continue prednisone as orderedCon tinue proventil and Ventolin hfaLevoflo xacin as ordered Health Concerns Section Related Observation LastModified by Organization Detai ls LastModified Time None Recorded Concern Status LastModified by Organization Details LastModified Time None Recorded Advance Directives Directive N: Full Code Payers Insurance Date Sequence Insurance Name Policy Number Policy Tidwell Covered Member ID Tidwell Member ID Guarantor Name 05/15/2025 1 [place] [employer] Radhika Vaca [id number] Radhika Vaca 05/27/2025 2 [place] [facility] Radhika Vaca [id number] Radhika Vaca Notes Date Note Type Note Provider Name and Address Organization Details Recorded Time 09/30/2024 text/html Pt is a 79 yo female seen for a discharge summary today. Her [...] transferred here for STR. Since here at [facility]: She had a sacral wound [...] her home with o2. She is aware geriatric social worker is working on a plan and she will follow with pcp outpt. Breathing non labored. Eloina Odom NP [address] [facility], [address], [place], [address], [facility] [employer] 09/30/2024 08:56:26 05/16/2025 text/html ROS as noted in the HPI Pt is a 79 yo female being seen for initial intake visit. She represented to the ER with sob and required intubation and an ICU admission. They felt resp failure was dt a COPD exac, from a rapid taper in [facility]. Patient seen today. She reports breathing has improved. She denies any sob. Shes on her baseline supp O2, at 2 L. She is eating and sleeping normally. She feels deconditioned and weak. PMHx significant for chronic hypoxic respiratory failure on 2 L home 02 due to COPD, morbid obesity with obstructive sleep apnea noncompliant with CPAP, chronic diastolic CHF, CKD 4, diabetes, hypertension, hyperlipidemia, hypothyroid, chronic indwelling francisco, and chronic leg wounds/pressure ulcer of the sacrum/coccyx ANANYA GIPSON [address] [facility], [address], [place], [address], [facility] [employer] 05/31/2025 10:30:53 05/23/2025 text/html Pt is a 79 yo female being seen for acute rounding. She had a complicated ICU stay requiring intubation for acute COPD exac and chf exac. Pt is being seen today. There was question of why she was on both kcl supp and lokelma. On review of labs k was 3.4 yesterday. Her breathing is at baseline. Sating in the 90s on supp O2. No recorded wt since admission. PMHx significant for chronic hypoxic respiratory failure on 2 L home 02 due toCOPD, morbid obesity with obstructive sleep apnea noncompliant with CPAP, chronic diastolic CHF, CKD 4, diabetes, hypertension, hyperlipidemia, hypothyroid, chronic indwelling francisco, and chronic leg wounds/pressure ulcer of the sacrum/coccyx ANANYA GIPSON [address] [facility], [address], [place], [address], [facility] [employer] [facility] 05/23/2025 12:32:05 05/24/2025 text/html Reporting increased pain to coccyx to rehab. Refuses workup for pain which is a barrier, seen by physiatry. Nursing to recommend psych follow up. Has not yet stood up with rehab, has only sat at edge of bed for 30 seconds- 1 minute. Max-dependent for all ADL care. Continues with [employer], diet upgraded. Resident with increased anxiety r/t O2 levels, CO2 retainer, requests O2 increases but cannot tolerate. PRN Ativan ordered x 14 days then re-evaluate ZULAY MILNER NP [address] [facility], [address], [place], [address], [facility] [employer] [facility] 05/24/2025 23:02:16 05/24/2025 text/html ROS as noted in the HPI 79yo F admitted to [facility] from [facility] May 10-. She represented to the ER after being discharged the day prior for resp failure / COPD exacerbation April 25 and was intubated and admitted to the ICU. Sputuem grew MRSA and pseudomonas. Her presenting chest pains and shortness of breath was worked-up including a ELLIOT May 10 with normal EF/mild to mod TR and mod pul HTN. She was felt in COPD exacerbation likely from a rapid taper in systemic steroids as well as anxiety. PMHx significant for chronic hypoxic respiratory failure on 2 L home due to COPD, morbid obesity with obstructive sleep apnea noncompliant with CPAP, chronic diastolic CHF, CKD 4, diabetes, hypertension, hyperlipidemia, hypothyroid, chronic indwelling francisco, and chronic leg wounds/pressure ulcer of the sacrum/coccyx she is seen today while eating lunch. She feels so improved in the last few days she's considering going home. Reports good sleep and able to move about. No chest pains / wheezing. She resides in an air-conditioned house with her son who is her primary specialist wound care. Mario Loyd MD [address] [facility], [address], [place], [address], [facility] [employer] [facility] 05/24/2025 12:55:34 OBGyn Episode No OBEpisode recorded.
--- OUTSIDE RECORDS SUMMARY | 2025-07-19 03:45 | XMS_ITS | Encounter Summary ---
Author Organization [employer] Address [address] [place] [address] Care Team Providers Care Hand I Thermal Cutter Name Role Phone Hal Cole MD Primary Care Provider [phone] Encounter Details Date Type Department Care Team (Late st Contact Info) Description 06/06/2025 Lab Requisition [facility] - Main Lab [address] [place] [address] Hal Cole MD [address] [place] [address], [phone] Anemia, unspecified; Chronic kidney disease, unspecified [...] LAB CHEMISTRY METHOD 06/06/2025 8:55 AM EDT [facility] Potassium 3.7 3.5 - 5.5 mmol/L LAB CHEMISTRY METHOD 06/06/2025 8:55 AM EDT [facility] Chloride 101 96 - [...] t [facility] [address] [place] [address], * (ABNORMAL) Complete blood count (06/06/2025 5:50 AM EDT) [facility] WBC 9.1 4.8 - 10.8 K/mcL LAB [...] LAB HEMETOLOGY METHOD 06/06/2025 8:31 AM EDT [facility] Blood Venous blood specimen / Unknown Venipuncture / Unknown 06/06/2025 5:50 AM EDT 06/06/2025 8:01 AM EDT us Hal Cole MD LAB BLOOD ORDERABLES Final Resul t [facility] [address] [place] [address], documented in this encounter Visit Diagnoses Diagnosis Anemia, unspecified Chronic kidney disease, unspecified documented in this encounter Care Teams Hand I Thermal Cutter Relationship Specialty Start Date End Date Hal Cole MD [address] [place] [address], [phone] PCP - General Family Medicine 09/15/24 documented as of this encounter
--- OUTSIDE RECORDS SUMMARY | 2025-07-19 03:45 | XMS_ITS | Clinical Summary ---
Author Organization [address] Address [address] [place] [address] Phone Care Team Providers Care Airborne Operations Superintendent Name Role Phone Hal Cole MD Primary Care Provider [phone] Encounters Date Type Department Care Team Description 06/23/2025 Lab Requisition [facility] - Main Lab [address] [place] [phone] Hal Cole MD Anemia, unspecified; Chronic kidney disease, unspecified 06/16/2025 Lab Requisition [facility] Main Lab [address] [place] [address] Hal Cole MD Anemia, unspecified; Chronic kidney disease, unspecified 06/10/2025 Lab Requisition [facility] Lab [address] [place] [address] Hal Cole MD Anemia, unspecified; Chronic kidney disease, unspecified 06/06/2025 Lab Requisition [facility] Lab [address] [place] [phone] Hal Cole MD Anemia, unspecified; Chronic kidney disease, unspecified 05/26/2025 Lab Requisition [facility] Main Lab [address] [place] [address] Hal Cole MD Hypokalemia; Anemia in chronic kidney disease (CODE) 05/25/2025 Lab Requisition [facility] Main Lab [address] [place] [address] Hal Cole MD Hypokalemia 05/23/2025 Lab Requisition [facility] Main Lab [address] [place] [phone] Hal Cole MD Chronic kidney disease, unspecified 05/20/2025 Lab Requisition [facility] - Main Lab [address] [place] [phone] Hal Cole MD Hypokalemia; Anemia in chronic kidney disease (CODE) 05/17/2025 Lab Requisition [facility] - Main Lab [address] [place] [phone] Hal Cole MD Hypokalemia 05/15/2025 Lab Requisition [facility] - Main Lab [address] [place] [phone] Hal Cole MD Hypokalemia; Anemia in chronic [...] LAB HEMETOLOGY METHOD 06/19/2025 10:42 AM EDT [facility] RBC 3.30(L) 3.80 - 4.80 M/mcL LAB HEMETOLOGY METHOD 06/19/2025 10:42 AM EDT [facility] Hemoglobin 9.1(L) 11.5 - 16.0 g/dL LAB HEMETOLOGY METHOD 06/19/2025 10:42 AM EDT [facility] Hematocrit 30.2(L) 35.0 - 47.0 % LAB HEMETOLOGY METHOD 06/19/2025 10:42 AM EDT [facility] MCV 92.1 79.0 - 98.0 FL LAB HEMETOLOGY METHOD 06/19/2025 10:42 AM EDT [facility] MCH 27.7 27.0 - 32.0 pcg LAB HEMETOLOGY METHOD 06/19/2025 10:42 AM EDT [facility] MCHC 30.1(L) 32.0 - 37.0 g/dL LAB HEMETOLOGY METHOD 06/19/2025 10:42 AM EDT [facility] RDW 14.6 11.0 - 15.0 % LAB HEMETOLOGY METHOD 06/19/2025 10:42 AM EDT [facility] Platelets 305 130 - 400 K/mcL LAB HEMETOLOGY METHOD 06/19/2025 10:42 AM EDT [facility] MPV 9.5 7.0 - 11.0 FL LAB HEMETOLOGY METHOD 06/19/2025 10:42 AM EDT [facility] NRBC 0.0 <1.0 % LAB HEMETOLOGY METHOD 06/19/2025 10:42 AM EDT [facility] NRBC Absolute 0.00 <0.10 K/mcL LAB HEMETOLOGY METHOD 06/19/2025 10:42 AM T [facility] Blood Venous blood specimen / Unknown Venipuncture / Unknown 06/19/2025 5:45 AM EDT 06/19/2025 10:26 AM EDT us Hal Cole MD LAB BLOOD ORDERABLES Final Resul t [facility] [address] [place] [address], * (ABNORMAL) Basic metabolic panel (06/19/2025 5:45 AM EDT) Only the most recent of6 resultswithin the time period is included. Sodium 140 133 - 145 mmol/L LAB CHEMISTRY METHOD 06/19/2025 11:23 AM [facility] Potassium 3.4(L) 3.5 - 5.5 mmol/L LAB CHEMISTRY METHOD 06/19/2025 11:23 AM [facility] Chloride 100 96 - 110 mmol/L LAB CHEMISTRY METHOD 06/19/2025 11:23 AM [facility] CO2 29 21 - 32 mmol/L LAB CHEMISTRY METHOD 06/19/2025 11:23 AM [facility] Anion Gap 11 3 - 11 LAB CHEMISTRY METHOD 06/19/2025 11:23 AM [facility] Glucose 203(H) 70 - 100 mg/dL LAB CHEMISTRY METHOD 06/19/2025 11:23 AM [facility] BUN 88(H) 5 - 25 mg/dL LAB CHEMISTRY METHOD 06/19/2025 11:23 AM [facility] Creatinine 1.43(H) 0.50 - 1.10 mg/dL LAB CHEMISTRY METHOD 06/19/2025 11:23 AM [facility] eGFR 38(L) >=60 mL/min/1. 73m2 LAB CHEMISTRY METHOD 06/19/2025 11:23 AM [facility] Comment:Calculation based on the Chronic Kidney Disease Epidemiology Collaboration (CKD-EPI) equation refit without adjustment for race. BUN/Creatinine Ratio 61.5 LAB CHEMISTRY METHOD 06/19/2025 11:23 AM [facility] Calcium 7.7(L) 8.5 - 10.5 mg/dL LAB CHEMISTRY METHOD 06/19/2025 11:23 AM [facility] Blood Venous blood specimen / Unknown Venipuncture / Unknown 06/19/2025 5:45 AM EDT 06/19/2025 10:26 AM EDT us Hal Kelsey MD LAB BLOOD ORDERABLES Final Resul t Performing Organization Address [facility]/ZIP Co de Phone Number [facility] [address] [place] [address], [place] [phone] * (ABNORMAL) Electrolyte panel (05/18/2025 6:15 AM EDT) Sodium 140 133 - 145 mmol/L LAB CHEMISTRY METHOD 05/18/2025 10:19 AM EDT [facility] Potassium 3.8 3.5 - 5.5 mmol/L LAB CHEMISTRY METHOD 05/18/2025 10:19 AM EDT [facility] Chloride 97 96 - 110 mmol/L LAB CHEMISTRY METHOD 05/18/2025 10:19 AM EDT [facility] CO2 38(H) 21 - 32 mmol/L LAB CHEMISTRY METHOD 05/18/2025 10:19 AM EDT [facility] Anion Gap 5 3 - 11 LAB CHEMISTRY METHOD 05/18/2025 10:19 AM T [facility] Blood Venous blood specimen / Unknown Venipuncture / Unknown 05/18/2025 6:15 AM EDT 05/18/2025 9:39 AM EDT Hal Cole MD LAB BLOOD ORDERABLES Final Resul t Performing Organization Address [facility]/ZIP Co de Phone Number [facility] [address] [place] [address], [place] [phone] * (ABNORMAL) Comprehensive metabolic panel (05/15/2025 6:04 AM EDT) Sodium 141 133 - 145 mmol/L LAB CHEMISTRY METHOD 05/15/2025 3:01 PM EDT [facility] Potassium 3.3(L) 3.5 - 5.5 mmol/L LAB CHEMISTRY METHOD 05/15/2025 3:01 PM EDT [facility] Chloride 91(L) 96 - 110 mmol/L LAB CHEMISTRY METHOD 05/15/2025 3:01 PM [facility] CO2 41(HH) 21 - 32 mmol/L LAB CHEMISTRY METHOD 05/15/2025 3:01 PM [facility] Anion Gap 9 3 - 11 LAB CHEMISTRY METHOD 05/15/2025 3:01 PM [facility] Glucose 74 70 - 100 mg/dL LAB CHEMISTRY METHOD 05/15/2025 3:01 PM [facility] BUN 65(H) 5 - 25 mg/dL LAB CHEMISTRY METHOD 05/15/2025 3:01 PM [facility] Creatinine 1.80(H) 0.50 - 1.10 mg/dL LAB CHEMISTRY METHOD 05/15/2025 3:01 PM [facility] eGFR 29(L) >=60 mL/min/1. 73m2 LAB CHEMISTRY METHOD 05/15/2025 3:01 PM [facility] Comment:Calculation based on the Chronic Kidney Disease Epidemiology Collaboration (CKD-EPI) equation refit without adjustment for race. BUN/Creatinine Ratio 36.1 LAB CHEMISTRY METHOD 05/15/2025 3:01 PM [facility] Calcium 7.3(L) 8.5 - 10.5 mg/dL LAB CHEMISTRY METHOD 05/15/2025 3:01 [facility] AST (SGOT) 15 10 - 42 unit/L LAB CHEMISTRY METHOD 05/15/2025 3:01 [facility] ALT (SGPT) 8(L) 10 - 60 unit/L LAB CHEMISTRY METHOD 05/15/2025 3:01 PM [facility] Alkaline Phosphatase 68 42 - 121 unit/L LAB CHEMISTRY METHOD 05/15/2025 3:01 PM [facility] Total Protein 6.0 6.0 - 8.0 g/dL LAB CHEMISTRY METHOD 05/15/2025 3:01 PM EDT [facility] Albumin 2.9(L) 3.2 - 5.0 g/dL LAB CHEMISTRY METHOD 05/15/2025 3:01 PM EDT [facility] Total Bilirubin 0.4 0.0 - 1.4 mg/dL LAB CHEMISTRY METHOD 05/15/2025 3:01 PM EDT [facility] Blood Venous blood specimen / Unknown Venipuncture / Unknown 05/15/2025 6:04 AM EDT 05/15/2025 11:39 AM EDT us Hal Cole MD LAB BLOOD ORDERABLES Final Resul t [facility] [address] [place] [address], [place] [phone] from Last 3 Months Insurance MEDICAID - [place] MEDICARE Care Teams Airborne Operations Superintendent Relationship Specialty Start Date End Date Hal Cole MD [address] [place] [address], [phone] PCP - General Family Medicine 09/15/24
--- OUTSIDE RECORDS SUMMARY | 2025-07-19 03:45 | XMS_ITS | Encounter Summary ---
Author Organization [employer] Address [address] [place] [address] Care Team Providers Care Professor Of Food Biochemistry Name Role Phone Hal Cole MD Primary Care Provider [phone] Encounter Details Date Type Department Care Team (Late st Contact Info) Description 06/16/2025 Lab Requisition [facility] - Main Lab [address] [place] [address] Hal Cole MD [address] [place] [address], [phone] Anemia, unspecified; Chronic kidney disease, unspecified [...] LAB CHEMISTRY METHOD 06/19/2025 11:23 AM EDT [facility] Potassium 3.4(L) 3.5 - 5.5 mmol/L LAB [facility]STR[facility] Chloride 100 96 - 110 mmol/L LAB CHEMISTRY METHOD 06/19/2025 11:23 AM [facility] CO2 29 21 - 32 mmol/L LAB CHEMISTRY METHOD 06/19/2025 11:23 AM [facility] Anion Gap 11 3 - 11 LAB CHEMISTRY METHOD 06/19/2025 11:23 AM [facility] Glucose 203(H) 70 - 100 mg/dL LAB CHEMISTRY METHOD 06/19/2025 11:23 AM [facility] BUN 88(H) 5 - 25 mg/dL LAB CHEMISTRY METHOD 06/19/2025 11:23 AM [facility] Creatinine 1.43(H) 0.50 - 1.10 mg/dL LAB CHEMISTRY METHOD 06/19/2025 11:23 AM [facility] eGFR 38(L) >=60 mL/min/1. 73m2 LAB CHEMISTRY METHOD 06/19/2025 11:23 AM [facility] Comment:Calculation based on the Chronic Kidney Disease Epidemiology Collaboration (CKD-EPI) equation refit without adjustment for race. BUN/Creatinine Ratio 61.5 LAB CHEMISTRY METHOD 06/19/2025 11:23 AM [facility] Calcium 7.7(L) 8.5 - 10.5 mg/dL LAB CHEMISTRY METHOD 06/19/2025 11:23 AM [facility] Blood Venous blood specimen / Unknown Venipuncture / Unknown 06/19/2025 5:45 AM EDT 06/19/2025 10:26 AM EDT us Hal Cole MD LAB BLOOD ORDERABLES Final Resul t [facility] [address] [place] [address], * (ABNORMAL) Complete blood count (06/19/2025 5:45 AM EDT) [facility] WBC 9.4 4.8 - 10.8 K/mcL LAB HEMETOLOGY METHOD 06/19/2025 10:42 AM [facility] RBC 3.30(L) 3.80 - 4.80 M/mcL LAB HEMETOLOGY METHOD 06/19/2025 10:42 AM [facility] Hemoglobin 9.1(L) 11.5 - 16.0 g/dL LAB HEMETOLOGY METHOD 06/19/2025 10:42 AM [facility] Hematocrit 30.2(L) 35.0 - 47.0 % LAB HEMETOLOGY METHOD 06/19/2025 10:42 AM [facility] MCV 92.1 79.0 - 98.0 FL LAB HEMETOLOGY METHOD 06/19/2025 10:42 AM [facility] MCH 27.7 27.0 - 32.0 pcg LAB HEMETOLOGY METHOD 06/19/2025 10:42 AM [facility] MCHC 30.1(L) 32.0 - 37.0 g/dL LAB HEMETOLOGY METHOD 06/19/2025 10:42 AM [facility] RDW 14.6 11.0 - 15.0 % LAB HEMETOLOGY METHOD 06/19/2025 10:42 AM [facility] Platelets 305 130 - 400 K/mcL LAB HEMETOLOGY METHOD 06/19/2025 10:42 AM [facility] MPV 9.5 7.0 - 11.0 FL LAB HEMETOLOGY METHOD 06/19/2025 10:42 AM [facility] NRBC 0.0 <1.0 % LAB HEMETOLOGY METHOD 06/19/2025 10:42 AM [facility] NRBC Absolute 0.00 <0.10 K/mcL LAB HEMETOLOGY METHOD 06/19/2025 10:42 AM EDT [facility] Blood Venous blood specimen / Unknown Venipuncture / Unknown 06/19/2025 5:45 AM EDT 06/19/2025 10:26 AM EDT us Hal Cole MD LAB BLOOD ORDERABLES Final Resul t [facility] [address] [place] [address], documented in this encounter Visit Diagnoses Diagnosis Anemia, unspecified Chronic kidney disease, unspecified documented in this encounter Care Teams Professor Of Food Biochemistry Relationship Specialty Start Date End Date Hal Cole MD [address] [place] [address], [phone] PCP - General Family Medicine 09/15/24 documented as of this encounter
--- OUTSIDE RECORDS SUMMARY | 2025-07-19 03:45 | XMS_ITS | Encounter Summary ---
Author Organization [employer] Address [address] [place] [address] Care Team Providers Care Consulting Systems Engineer Name Role Phone Hal Cole MD Primary Care Provider [phone] Encounter Details Date Type Department Care Team (Late st Contact Info) Description 09/28/2024 Lab Requisition [facility] - Main Lab 299 [facility] [place] [address] Hal Cole MD [address] [place] [address], [phone] Essential (primary) hypertension; Chronic obstructive pulmonary [...] LAB CHEMISTRY METHOD 09/28/2024 1:[address] [facility] Blood Venous blood specimen / Unknown Venipuncture / Unknown 09/28/2024 7:04 AM EST 09/28/2024 11:03 AM EST Hal Cole MD LAB BLOOD ORDERABLES Final Resul t Performing Organization Address [facility]/ZIP Co de Phone Number [facility] [address] [place] [address], [place] [phone] * Free thyroxine with reflex to free triiodothyronine (09/28/2024 7:04 AM EST) Pathologist [facility] Free T4 0.88 0.70 - 1.80 ng/dL LAB CHEMISTRY METHOD 09/28/2024 12:[address] [facility] Blood Venous blood specimen / Unknown Venipuncture / Unknown 09/28/2024 7:04 AM EST 09/28/2024 11:03 AM EST Hal Cole MD LAB BLOOD ORDERABLES Final Resul t [facility] [address] [place] [address], [place] [phone] * (ABNORMAL) Thyroid stimulating hormone with reflex to free t4 and free t3 (09/28/2024 7:04 AM EST) TSH 50.98(H) 0.40 - 4.00 mcIU/mL LAB CHEMISTRY METHOD 09/28/2024 12:15 PM [facility] Blood Venous blood specimen / Unknown Venipuncture / Unknown 09/28/2024 7:04 AM EST 09/28/2024 11:03 AM EST us Hal Cole MD LAB BLOOD ORDERABLES Final Resul t [facility] [address] [place] [address], [place] [phone] * (ABNORMAL) Basic metabolic panel (09/28/2024 7:04 AM EST) Sodium 141 133 - 145 mmol/L LAB CHEMISTRY METHOD 09/28/2024 12:06 PM [facility] Potassium 4.2 3.5 - 5.5 mmol/L LAB CHEMISTRY METHOD 09/28/2024 12:06 PM [facility] Chloride 106 96 - 110 mmol/L LAB CHEMISTRY METHOD 09/28/2024 12:06 PM [facility] CO2 29 21 - 32 mmol/L LAB CHEMISTRY METHOD 09/28/2024 12:06 PM [facility] Anion Gap 6 3 - 11 LAB CHEMISTRY METHOD 09/28/2024 12:06 PM [facility] Glucose 139(H) 70 - 100 mg/dL LAB CHEMISTRY METHOD 09/28/2024 12:06 PM [facility] BUN 67(H) 5 - 25 mg/dL LAB CHEMISTRY METHOD 09/28/2024 12:06 PM [facility] Creatinine 1.83(H) 0.50 - 1.10 mg/dL LAB CHEMISTRY METHOD 09/28/2024 12:06 PM [facility] eGFR 28(L) >=60 mL/min/1. 73m2 LAB CHEMISTRY METHOD 09/28/2024 12:06 PM [facility] Comment:Calculation based on the Chronic Kidney Disease Epidemiology Collaboration (CKD-EPI) equation refit without adjustment for race. BUN/Creatinine Ratio 36.6 LAB CHEMISTRY METHOD 09/28/2024 12:06 PM [facility] Calcium 8.3(L) 8.5 - 10.5 mg/dL LAB CHEMISTRY METHOD 09/28/2024 12:06 PM [facility] Blood Venous blood specimen / Unknown Venipuncture / Unknown 09/28/2024 7:04 AM EST 09/28/2024 11:03 AM EST us Hal Cole MD LAB BLOOD ORDERABLES Final Resul t [facility] [address] [place] [address], * (ABNORMAL) Complete blood count (09/28/2024 7:04 AM EST) WBC 7.1 4.8 - 10.8 K/mcL LAB HEMETOLOGY METHOD 09/28/2024 11:31 AM [facility] RBC 3.70(L) 3.80 - 4.80 M/mcL LAB HEMETOLOGY METHOD 09/28/2024 11:31 AM [facility] Hemoglobin 10.8(L) 11.5 - 16.0 g/dL LAB HEMETOLOGY METHOD 09/28/2024 11:31 AM [facility] Hematocrit 36.0 35.0 - 47.0 % LAB HEMETOLOGY METHOD 09/28/2024 11:31 AM [facility] MCV 96.5 79.0 - 98.0 FL LAB HEMETOLOGY METHOD 09/28/2024 11:31 AM [facility] MCH 29.0 27.0 - 32.0 pcg LAB HEMETOLOGY METHOD 09/28/2024 11:31 AM [facility] MCHC 30.0(L) 32.0 - 37.0 g/dL LAB HEMETOLOGY METHOD 09/28/2024 11:[address] [facility] RDW 13.5 11.0 - 15.0 % LAB HEMETOLOGY METHOD 09/28/2024 11:31 AM [facility] Platelets 214 130 - 400 K/mcL LAB HEMETOLOGY METHOD 09/28/2024 11:31 AM [facility] MPV 9.9 7.0 - 11.0 FL LAB HEMETOLOGY METHOD 09/28/2024 11:31 AM [facility] NRBC 0.0 <1.0 % LAB HEMETOLOGY METHOD 09/28/2024 11:31 AM [facility] NRBC Absolute 0.00 <0.10 K/mcL LAB HEMETOLOGY METHOD 09/28/2024 11:31 AM [facility] Blood Venous blood specimen / Unknown Venipuncture / Unknown 09/28/2024 7:04 AM EST 09/28/2024 11:03 AM EST us Hal Cole MD LAB BLOOD ORDERABLES Final Resul t [facility] [address] [place] [address], documented in this encounter Visit Diagnoses Diagnosis Essential (primary) hypertension Unspecified essential hypertension Chronic obstructive pulmonary disease, unspecified (CMS/HCC V24, CMS/HCC V28) documented in this encounter Care Teams Consulting Systems Engineer Relationship Specialty Start Date End Date Hal Cole MD [address] [place] [address], [phone] PCP - General Family Medicine 09/15/24 documented as of this encounter
--- OUTSIDE RECORDS SUMMARY | 2025-07-19 03:45 | XMS_ITS | Encounter Summary ---
Author Organization [facility] Address [address] [place] [address] Care Team Providers Care Package Sealer Machine Name Role Phone Hal Cole MD Primary Care Provider [phone] Encounter Details Date Type Department Care Team (Late st Contact Info) Description 05/17/2025 Lab Requisition [facility] - Main Lab 299 [facility] [place] [address] Hal Cole MD [address] [place] [address], [phone] Hypokalemia Social History Tobacco Use Types [...] LAB CHEMISTRY METHOD 05/18/2025 10:19 AM EDT [facility] Potassium 3.8 3.5 - 5.5 mmol/L LAB CHEMISTRY METHOD 05/18/2025 10:19 AM EDT [facility] Chloride 97 96 - 110 mmol/L LAB CHEMISTRY METHOD 05/18/2025 10:19 AM [facility] CO2 38(H) 21 - 32 mmol/L LAB CHEMISTRY METHOD 05/18/2025 10:19 AM EDT [facility] Anion Gap 5 3 - 11 LAB CHEMISTRY METHOD 05/18/2025 10:19 AM EDT [facility] Blood Venous blood specimen / Unknown Venipuncture / Unknown 05/18/2025 6:15 AM EDT 05/18/2025 9:39 AM EDT us Hal Cole MD LAB BLOOD ORDERABLES Final Resul t [facility] [address] [place] [address], documented in this encounter Visit Diagnoses Diagnosis Hypokalemia Hypopotassemia documented in this encounter Care Teams Package Sealer Machine Relationship Specialty Start Date End Date Hal Cole MD [address] [place] [phone] PCP - General Family Medicine 09/15/24 documented as of this encounter
--- OUTSIDE RECORDS SUMMARY | 2025-07-19 03:45 | XMS_ITS | Encounter Summary ---
Author Organization [employer] Address [address] [place] [address] Care Team Providers Care Sprinkler Fitter Apprentice Name Role Phone Hal Cole MD Primary Care Provider [phone] Encounter Details Date Type Department Care Team (Late st Contact Info) Description 06/23/2025 Lab Requisition [facility] - Main Lab 299 [facility] [place] [address] Hal Cole MD [address] [facility] [address] [place], [phone] Anemia, unspecified; Chronic kidney disease, unspecified [...] unspecified documented in this encounter Care Teams Sprinkler Fitter Apprentice Relationship Specialty Start Date End Date Hal Cole MD [address] [facility] 204 [facility] [phone] PCP - General Family Medicine 09/15/24 documented as of this encounter
--- OUTSIDE RECORDS SUMMARY | 2025-07-19 03:45 | XMS_ITS | Encounter Summary ---
Author Organization [employer] Address [address] [place] [address] Care Team Providers Care Chamber Walker Name Role Phone Hal Cole MD Primary Care Provider [phone] Encounter Details Date Type Department Care Team (Late st Contact Info) Description 05/15/2025 Lab Requisition [facility] - Main Lab [address] [place] [address] Hal Cole MD [address] [place] [address], [phone] Hypokalemia; Anemia in chronic kidney disease [...] LAB CHEMISTRY METHOD 05/15/2025 3:01 PM EDT [facility] Potassium 3.3(L) 3.5 - 5.5 mmol/L LAB CHEMISTRY METHOD 05/15/2025 3:01 PM [facility] Chloride 91(L) 96 - 110 mmol/L LAB CHEMISTRY METHOD 05/15/2025 3:01 PM [facility] CO2 41(HH) 21 - 32 mmol/L LAB CHEMISTRY METHOD 05/15/2025 3:01 PM [facility] Anion Gap 9 3 - 11 LAB CHEMISTRY METHOD 05/15/2025 3:01 PM [facility] Glucose 74 70 - 100 mg/dL LAB CHEMISTRY METHOD 05/15/2025 3:01 PM [facility] BUN 65(H) 5 - 25 mg/dL LAB CHEMISTRY METHOD 05/15/2025 3:01 PM [facility] Creatinine 1.80(H) 0.50 - 1.10 mg/dL LAB CHEMISTRY METHOD 05/15/2025 3:01 PM [facility] eGFR 29(L) >=60 mL/min/1. 73m2 LAB CHEMISTRY METHOD 05/15/2025 3:01 PM [facility] Comment:Calculation based on the Chronic Kidney Disease Epidemiology Collaboration (CKD-EPI) equation refit without adjustment for race. BUN/Creatinine Ratio 36.1 LAB CHEMISTRY METHOD 05/15/2025 3:01 PM [facility] Calcium 7.3(L) 8.5 - 10.5 mg/dL LAB CHEMISTRY METHOD 05/15/2025 3:01 PM [facility] AST (SGOT) 15 10 - 42 unit/L LAB CHEMISTRY METHOD 05/15/2025 3:01 PM [facility] ALT (SGPT) 8(L) 10 - 60 unit/L LAB CHEMISTRY METHOD 05/15/2025 3:01 PM [facility] Alkaline Phosphatase 68 42 - 121 unit/L LAB CHEMISTRY METHOD 05/15/2025 3:01 PM [facility] Total Protein 6.0 6.0 - 8.0 g/dL LAB CHEMISTRY METHOD 05/15/2025 3:01 PM EDT [facility] Albumin 2.9(L) 3.2 - 5.0 g/dL LAB CHEMISTRY METHOD 05/15/2025 3:01 PM EDT [facility] Total Bilirubin 0.4 0.0 - 1.4 mg/dL LAB CHEMISTRY METHOD 05/15/2025 3:01 PM EDT [facility] Blood Venous blood specimen / Unknown Venipuncture / Unknown 05/15/2025 6:04 AM EDT 05/15/2025 11:39 AM EDT us Hal Cole MD LAB BLOOD ORDERABLES Final Resul t [facility] [address] [place] [address], * (ABNORMAL) Complete blood count (05/15/2025 6:04 AM EDT) WBC 6.9 4.8 - 10.8 K/mcL LAB [facility]EM[facility]OLOG[facility] RBC 2.90(L) 3.80 - 4.80 M/mcL LAB HEMETOLOGY METHOD [facility] Hemoglobin 8.1(L) 11.5 - 16.0 g/dL LAB HEMETOLOGY METHOD 05/15/2025 1:15 PM EDT [facility] Hematocrit 28.4(L) 35.0 - 47.0 % LAB HEMETOLOGY METHOD 05/15/2025 1:15 PM EDT [facility] MCV 98.3(H) 79.0 - 98.0 FL LAB HEMETOLOGY METHOD [facility]/15[facility]2025 [facility] MCH 28.0 27.0 - 32.0 pcg LAB HEMETOLOGY METHOD 05/15/2025 1:15 PM EDT [facility] MCHC 28.5(L) 32.0 - 37.0 g/dL LAB HEMETOLOGY METHOD 05/15/2025 1:15 PM EDT [facility] RDW 16.4(H) 11.0 - 15.0 % LAB HEMETOLOGY METHOD 05/15/2025 1:15 PM EDT [facility] Platelets 207 130 - 400 K/mcL LAB HEMETOLOGY METHOD 05/15/2025 1:15 PM EDT [facility] MPV 9.7 7.0 - 11.0 FL LAB HEMETOLOGY METHOD 05/15/2025 1:15 PM EDT [facility] NRBC 0.0 <1.0 % LAB HEMETOLOGY METHOD 05/15/2025 1:15 PM EDT [facility] NRBC Absolute 0.00 <0.10 K/mcL LAB HEMETOLOGY METHOD 05/15/2025 1:15 PM EDT [facility] Blood Venous blood specimen / Unknown Venipuncture / Unknown 05/15/2025 6:04 AM EDT 05/15/2025 11:39 AM EDT us Hal Cole MD LAB BLOOD ORDERABLES Final Resul t [facility] [address] [place] [address], documented in this encounter Visit Diagnoses Diagnosis Hypokalemia Hypopotassemia Anemia in chronic kidney disease (CODE) documented in this encounter Care Teams Chamber Walker Relationship Specialty Start Date End Date Hal Cole MD [address] [place] [address] [address] [place], [phone] PCP - General Family Medicine 09/15/24 documented as of this encounter
--- OUTSIDE RECORDS SUMMARY | 2025-07-19 03:46 | XMS_ITS | Encounter Summary ---
Author Organization [employer] [facility] Address [address] [place] [address] Care Team Providers Care Assembly Line Brazer Name Role Phone Hal Cole MD Primary Care Provider [phone] Encounter Details Date Type Department Care Team (Late st Contact Info) Description 09/21/2024 Lab Requisition [facility] - Main Lab [address] [place] [address] Hal Cole MD [address] [place] [address], [phone] Chronic kidney disease, unspecified Social History [...] LAB CHEMISTRY METHOD 09/21/2024 12:11 PM EST [facility] Potassium 4.2 3.5 - 5.5 mmol/L LAB CHEMISTRY METHOD 09/21/2024 12:11 PM EST [facility] Chloride 107 96 - 110 mmol/L LAB CHEMISTRY METHOD 09/21/2024 12:11 PM EST [facility] CO2 26 21 - 32 mmol/L LAB CHEMISTRY METHOD 09/21/2024 12:11 PM [facility] Anion Gap 10 3 - 11 LAB CHEMISTRY METHOD 09/21/2024 12:11 PM [facility] Glucose 126(H) 70 - 100 mg/dL LAB CHEMISTRY METHOD 09/21/2024 12:11 PM [facility] BUN 49(H) 5 - 25 mg/dL LAB CHEMISTRY METHOD 09/21/2024 12:11 PM [facility] Creatinine 1.58(H) 0.50 - 1.10 mg/dL LAB CHEMISTRY METHOD 09/21/2024 12:11 PM [facility] eGFR 34(L) >=60 mL/min/1. 73m2 LAB CHEMISTRY METHOD 09/21/2024 12:11 PM [facility] Comment:Calculation based on the Chronic Kidney Disease Epidemiology Collaboration (CKD-EPI) equation refit without adjustment for race. BUN/Creatinine Ratio 31.0 LAB CHEMISTRY METHOD 09/21/2024 12:11 PM [facility] Calcium 8.4(L) 8.5 - 10.5 mg/dL LAB CHEMISTRY METHOD 09/21/2024 12:11 PM [facility] Blood Venous blood specimen / Unknown Venipuncture / Unknown 09/21/2024 7:31 AM EST 09/21/2024 9:59 AM EST us Hal Cole MD LAB BLOOD ORDERABLES Final Resul t [facility] [address] [place] [address], documented in this encounter Visit Diagnoses Diagnosis Chronic kidney disease, unspecified documented in this encounter Care Teams Assembly Line Brazer Relationship Specialty Start Date End Date Hal Cole MD [address] [place] [address], [phone] PCP - General Family Medicine 09/15/24 documented as of this encounter
--- OUTSIDE RECORDS SUMMARY | 2025-07-19 03:46 | XMS_ITS | Encounter Summary ---
Author Organization [employer] Address [address] [place] [address] Care Team Providers Care Slide Maker Name Role Phone Hal Cole MD Primary Care Provider [phone] Encounter Details Date Type Department Care Team (Late st Contact Info) Description 09/15/[address] [facility] - Main Lab [address] [place] [address] Hal Cole MD [address] [place] [address], [phone] Chronic obstructive pulmonary disease, unspecified (CMS/HCC [...] AM EST) WBC 7.4 4.8 - 10.8 /[facility] LAB HEMETOLOGY METHOD 09/15/2024 8:25 AM [facility] RBC 3.70(L) 3.80 - 4.80 M/mcL LAB HEMETOLOGY METHOD 09/15/2024 8:25 AM [facility] Hemoglobin 10.6(L) 11.5 - 16.0 g/dL LAB HEMETOLOGY METHOD 09/15/2024 8:25 AM [facility] Hematocrit 35.5 35.0 - 47.0 % LAB HEMETOLOGY METHOD 09/15/2024 8:25 AM [facility] MCV 95.4 79.0 - 98.0 FL LAB HEMETOLOGY METHOD 09/15/2024 8:25 AM [facility] MCH 28.5 27.0 - 32.0 pcg LAB HEMETOLOGY METHOD 09/15/2024 8:25 AM [facility] MCHC 29.9(L) 32.0 - 37.0 g/dL LAB HEMETOLOGY METHOD 09/15/2024 8:25 AM [facility] RDW 13.3 11.0 - 15.0 % LAB HEMETOLOGY METHOD 09/15/2024 8:25 AM [facility] Platelets 245 130 - 400 K/mcL LAB HEMETOLOGY METHOD 09/15/2024 8:25 AM [facility] MPV 9.5 7.0 - 11.0 FL LAB HEMETOLOGY METHOD 09/15/2024 8:25 AM [facility] NRBC 0.0 <1.0 % LAB HEMETOLOGY METHOD 09/15/2024 8:25 AM [facility] NRBC Absolute 0.00 <0.10 K/mcL LAB HEMETOLOGY METHOD 09/15/2024 8:25 AM [facility] Neutrophils Relative 73.5 % LAB HEMETOLOGY METHOD 09/15/2024 8:25 AM [facility] Lymphocytes Relative 14.3 % LAB HEMETOLOGY METHOD 09/15/2024 8:25 AM [facility] Monocytes Relative 6.0 % LAB HEMETOLOGY METHOD 09/15/2024 8:25 AM [facility] Eosinophils Relative 4.8 % LAB HEMETOLOGY METHOD 09/15/2024 8:25 AM [facility] Basophils Relative 0.7 % LAB HEMETOLOGY METHOD 09/15/2024 8:25 AM [facility] Immature Granulocytes Relative 0.7 % LAB HEMETOLOGY METHOD 09/15/2024 8:25 AM [facility] Neutrophils Absolute 5.41 1.50 - 7.00 K/mcL LAB HEMETOLOGY METHOD 09/15/2024 8:25 AM [facility] Lymphocytes Absolute 1.05 1.00 - 5.00 K/mcL LAB HEMETOLOGY METHOD 09/15/2024 8:25 AM [facility] Monocytes Absolute 0.44 0.20 - 1.00 K/mcL LAB HEMETOLOGY METHOD 09/15/2024 8:25 AM [facility] Eosinophils Absolute 0.35 0.00 - 0.50 K/mcL LAB HEMETOLOGY METHOD 09/15/2024 8:25 AM [facility] Basophils Absolute 0.05 0.00 - 0.20 K/mcL LAB HEMETOLOGY METHOD 09/15/2024 8:25 AM [facility] Immature Granulocytes Absolute 0.05(H) 0.00 - 0.03 K/mcL LAB HEMETOLOGY METHOD 09/15/2024 8:25 AM [facility] Blood Venous blood specimen / Unknown Venipuncture / Unknown 09/15/2024 5:17 AM EST 09/15/2024 8:04 AM EST Hal Cole MD LAB BLOOD ORDERABLES Final Resul t [facility] [address] [place] [address], * (ABNORMAL) Basic metabolic panel (09/15/2024 5:17 AM EST) Sodium 141 133 - 145 mmol/L LAB CHEMISTRY METHOD 09/15/2024 9:01 AM [facility] Potassium 3.7 3.5 - 5.5 mmol/L LAB CHEMISTRY METHOD 09/15/2024 9:01 AM [facility] Chloride 104 96 - 110 mmol/L LAB CHEMISTRY METHOD 09/15/2024 9:01 AM [facility] CO2 32 21 - 32 mmol/L LAB CHEMISTRY METHOD 09/15/2024 9:01 AM [facility] Anion Gap 5 3 - 11 LAB CHEMISTRY METHOD 09/15/2024 9:01 AM [facility] Glucose 187(H) 70 - 100 mg/dL LAB CHEMISTRY METHOD 09/15/2024 9:01 AM [facility] BUN 57(H) 5 - 25 mg/dL LAB CHEMISTRY METHOD 09/15/2024 9:01 AM [facility] Creatinine 1.92(H) 0.50 - 1.10 mg/dL LAB CHEMISTRY METHOD 09/15/2024 9:01 AM [facility] eGFR 27(L) >=60 mL/min/1. 73m2 LAB CHEMISTRY METHOD 09/15/2024 9:01 AM [facility] Comment:Calculation based on the Chronic Kidney Disease Epidemiology Collaboration (CKD-EPI) equation refit without adjustment for race. BUN/Creatinine Ratio 29.7 LAB CHEMISTRY METHOD 09/15/2024 9:01 AM [facility] Calcium 8.4(L) 8.5 - 10.5 mg/dL LAB CHEMISTRY METHOD 09/15/2024 9:01 AM EST [facility] Blood Venous blood specimen / Unknown Venipuncture / Unknown 09/15/2024 5:17 AM EST 09/15/2024 8:04 AM EST us Hal Cole MD LAB BLOOD ORDERABLES Final Resul t [facility] [address] [place] [address], documented in this encounter Visit Diagnoses Diagnosis Chronic obstructive pulmonary disease, unspecified (CMS/HCC V24, CMS/HCC V28) documented in this encounter Care Teams Slide Maker Relationship Specialty Start Date End Date Hal Cole MD [address] [place] [address], [phone] PCP - General Family Medicine 09/15/24 documented as of this encounter
--- OUTSIDE RECORDS SUMMARY | 2025-07-19 03:46 | XMS_ITS | Encounter Summary ---
Author Organization [employer] Address [address] [place] [address] Care Team Providers Care Consulting Services Associate Name Role Phone Hal Cole MD Primary Care Provider [phone] Encounter Details Date Type Department Care Team (Late st Contact Info) Description 08/27/2024 Lab Requisition [facility] - Main Lab 299 [facility] [place] [address] Hal Cole MD [address] [place] [address], [phone] Type 2 diabetes mellitus without complications [...] Resul t [facility] [address] [place] [address], * (ABNORMAL) Basic metabolic panel (08/29/2024 5:30 AM EST) [facility] [address] Sodium 137 133 - 145 mmol/L LAB [...] Resul t [facility] [address] [place] [address], * (ABNORMAL) Complete blood count (08/29/2024 5:30 [...] Resul t [facility] [address] [place] [address], documented in this encounter Visit Diagnoses Diagnosis Type 2 diabetes mellitus without complications (CMS/HCC V24, CMS/HCC V28) Chronic obstructive pulmonary disease, unspecified (CMS/HCC V24, CMS/HCC V28) documented in this encounter Care Teams Consulting Services Associate Relationship Specialty Start Date End Date Hal Cole MD [address] [place] [address], [phone] PCP - General Family Medicine 09/15/24 documented as of this encounter
--- OUTSIDE RECORDS SUMMARY | 2025-07-19 03:46 | XMS_ITS | Encounter Summary ---
Author Organization [facility] Address [address] [place] [address] Care Team Providers Care Machine Printer Hose Name Role Phone Hal Cole MD Primary Care Provider Encounter Details Date Type Department Care Team (Late st Contact Info) Description 05/25/2025 Lab Requisition [facility] - Main Lab [address] [place] [address] Hal Cole MD [address] [place] [address], [phone] Hypokalemia Social History Tobacco Use Types [...] LAB CHEMISTRY METHOD 05/25/2025 9:14 AM EDT [facility] Potassium 3.4(L) 3.5 - 5.5 mmol/L LAB CHEMISTRY METHOD 05/25/2025 9:14 AM EDT [facility] Chloride 99 96 - 110 mmol/L LAB CHEMISTRY METHOD 05/25/2025 9:14 AM EDT [facility] CO2 33(H) 21 - 32 mmol/L LAB CHEMISTRY METHOD 05/25/2025 9:[address] [facility] Anion Gap 6 3 - 11 LAB CHEMISTRY METHOD 05/25/2025 9:[address] [facility] Glucose 219(H) 70 - 100 mg/dL LAB CHEMISTRY METHOD 05/25/2025 9:[address] [facility] BUN 71(H) 5 - 25 mg/dL LAB CHEMISTRY METHOD 05/25/2025 9:[address] [facility] Creatinine 1.37(H) 0.50 - 1.10 mg/dL LAB CHEMISTRY METHOD 05/25/2025 9:[address] [facility] eGFR 40(L) >=60 mL/min/1. 73m2 LAB CHEMISTRY METHOD 05/25/2025 9:[address] [facility] Comment:Calculation based on the Chronic Kidney Disease Epidemiology Collaboration (CKD-EPI) equation refit without adjustment for race. BUN/Creatinine Ratio 51.8 LAB CHEMISTRY METHOD 05/25/2025 9:[address] [facility] Calcium 7.6(L) 8.5 - 10.5 mg/dL LAB CHEMISTRY METHOD 05/25/2025 9:[address] [facility] Blood Venous blood specimen / Unknown Venipuncture / Unknown 05/25/2025 5:43 AM EDT 05/25/2025 8:23 AM EDT us Hal Cole MD LAB BLOOD ORDERABLES Final Resul t [facility] [address] [place] [address], documented in this encounter Visit Diagnoses Diagnosis Hypokalemia Hypopotassemia documented in this encounter Care Teams Machine Printer Hose Relationship Specialty Start Date End Date Hal Cole MD [address] [place] [phone] PCP - General Family Medicine 09/15/24 documented as of this encounter
--- OUTSIDE RECORDS SUMMARY | 2025-07-19 03:46 | XMS_ITS | Encounter Summary ---
Author Organization [employer] Address [address] [place] [address] Care Team Providers Care Lead Supply Worker Name Role Phone Hal Cole MD Primary Care Provider [phone] Encounter Details Date Type Department Care Team (Late st Contact Info) Description 05/26/2025 Lab Requisition [facility] - Main Lab [address] [facility] [place] [address] Hal Cole MD [address] [place] [address], [phone] Hypokalemia; Anemia in chronic kidney disease [...] (CODE) documented in this encounter Care Teams Lead Supply Worker Relationship Specialty Start Date End Date Hal Cole MD [address] [facility] [address] [place], [phone] PCP - General Family Medicine 09/15/24 documented as of this encounter
--- NOTE | 2025-07-19 03:48 | ED.SOB ---
HPI - SOB/Dyspnea General Chief Complaint: Dyspnea Stated Complaint: SOB/CHEST TIGHTNESS Time Seen by Provider: 07/19/25 03:16 Source: patient, EMS, RN notes reviewed and old records reviewed Mode of arrival: EMS Limitations: no limitations History of Present Illness ED Provider: Dr. Ana Chris HPI Narrative: 79-year-old female with history of chronic indwelling Moyer catheter, insulin-dependent diabetes, morbid obesity, COPD, CKD presenting with shortness of breath that began for the last couple of days and worsened tonight. She describes waking up from sleep tonight and having a hard time catching her breath, feeling ?as though I was having a heart attack?. [place] like there was an elephant sitting on her chest. Went to sleep last night feeling relatively normal. She wears 2 L of oxygen at all times. Had to bump it up to 4 L to feel better. EMS reports that her initial oxygen level was in the high 90s upon arrival but her work of breathing was labored. They continued oxygen and gave her a DuoNeb treatment in route which did improve her symptoms slightly. Patient has a chronic indwelling Moyer catheter and has been taking all of her medications as prescribed. She has her Moyer catheter changed regularly but feels that it is leaking. He denies recent fevers, changes in her chronic cough, sputum production, nausea or vomiting. No changes in her chronic lower extremity edema. Related Data Home Medications ?Medication ?Instructions ?Recorded ?Confirmed lorazepam 0.5 mg tablet (Ativan) 0.5 mg PO BID 04/25/25 05/10/25 lorazepam 0.5 mg tablet (Ativan) 1 mg PO Q6H PRN Anxiety 04/25/25 05/10/25 acetaminophen 325 mg tablet 650 mg PO Q4H PRN Fever Or Pain 05/10/25 05/10/25 acetaminophen 650 mg rectal 650 mg MS Q4H PRN Fever Or Pain 05/10/25 05/10/25 suppository bisacodyl 10 mg rectal suppository 10 mg MS DAILY PRN Constipation 05/10/25 05/10/25 insulin lispro 100 unit/mL 1 sliding scale dose subcut TIDAC 05/10/25 05/10/25 subcutaneous solution (Humalog U-100 Insulin) magnesium hydroxide 400 mg/5 mL 30 ml PO DAILY PRN Constipation 05/10/25 05/10/25 oral suspension (Milk of Magnesia) sodium phosphates 19 gram-7 118 ml MS DAILY PRN Constipation 05/10/25 05/10/25 gram/118 mL enema (Fleet Enema) empagliflozin 10 mg tablet 10 mg PO DAILY 06/05/25 (Jardiance) Previous Rx's ?Medication ?Instructions ?Recorded Lift chair #1 ea 01/19/25 amlodipine 5 mg tablet 5 mg PO DAILY #90 tabs 03/15/25 ammonium lactate 12 % lotion 1 appl topical BID #400 grams 03/15/25 atorvastatin 40 mg tablet 40 mg PO BEDTIME 90 days #90 tabs 03/15/25 gemfibrozil 600 mg tablet 600 mg PO BID #180 tabs 03/15/25 insulin syringe-needle U-100 0.5 #100 ea 03/15/25 mL 31 gauge x 03/10 lancets (Accu-Chek Softclix #100 ea 03/15/25 Lancets) levothyroxine 200 mcg tablet 200 mcg PO DAILY@0600 90 days #90 03/15/25 tabs pen needle, diabetic 31 gauge x #100 ea 03/15/2503/10 (1st Tier Unifine Pentips) sodium bicarbonate 650 mg tablet 650 mg PO DAILY #90 tabs 03/15/25 sodium zirconium cyclosilicate 10 10 g PO DAILY #90 ea 03/15/25 gram oral powder packet (Lokelma) compression stockings #1 ea 03/29/25 benzonatate 100 mg capsule 100 mg PO TID PRN Cough #1 cap 04/10/25 ferrous sulfate 324 mg (65 mg 324 mg PO DAILY #1 tab 04/10/25 iron) tablet,delayed release furosemide 40 mg tablet 40 mg PO BID@0900,1800 #1 tab 04/10/25 sertraline 50 mg tablet 75 mg (1.5 x 50 mg) PO DAILY #1 tab 04/10/25 levofloxacin 750 mg tablet 750 mg PO DAILY #3 tabs 05/13/25 prednisone 10 mg tablet See Rx Instructions .Route 05/13/25 .COMPLEX #40 tabs albuterol sulfate 90 mcg/actuation 2 puff inhalation Q6H PRN 05/29/25 aerosol inhaler (Ventolin HFA) Shortness Of Breath Or Wheezing 30 days #6.7 grams hospital bed #1 ea 05/29/25 albuterol sulfate 2.5 mg/3 mL 2.5 mg (3 mL) inhalation Q6H PRN 05/30/25 (0.083 %) solution for nebulization shortness of breath or wheezing 30 days #90 mL cephalexin 500 mg capsule 500 mg PO BID 7 days #14 caps 06/05/25 insulin degludec 100 unit/mL (3 25 unit (0.25 mL) subcut BEDTIME 06/29/25 mL) subcutaneous pen (Tresiba 90 days #22.5 mL FlexTouch U-100 insulin) insulin glargine 100 unit/mL (3 25 unit (0.25 mL) subcut BEDTIME 06/29/25 mL) subcutaneous pen (Lantus 90 days #22.5 mL Solostar U-100 Insulin) blood sugar diagnostic (Accu-Chek #100 ea 07/15/25 Odilia Plus test strips) blood sugar diagnostic (Accu-Chek #100 ea 07/15/25 Guide test strips) Allergies Allergy/AdvReac Type Severity Reaction Status Date / Time ibuprofen (From Motrin) Allergy Unknown swelling Verified 07/19/25 03:19 codeine (CODEINE) AdvReac Unknown SLEEPY Verified 07/19/25 03:19 Review of Systems Review of Systems: As per HPI, full review of systems performed and negative but for the above mentioned pertinent positives and negatives. [facility] Past Medical History Medical History Obesity hypoventilation syndrome Pulmonary hypertension Lymphedema COPD (chronic obstructive pulmonary disease) CHF (congestive heart failure) Hypothyroidism Diabetes mellitus Pure hypercholesterolemia Open wound Bilateral hydronephrosis Skin ulcer of sacral region COPD exacerbation MARJORIE (acute kidney injury) Pneumonitis CKD (chronic kidney disease) Renal insufficiency Urinary retention Lumbar degenerative disc disease Chronic pain syndrome Venous stasis dermatitis Atelectasis Generalized anxiety disorder CHF (congestive heart failure) Anemia Herpes zoster Left bundle branch block Morbid obesity Chronic pain syndrome Anxiety Pernicious anemia Essential hypertension Surgical History H/O left knee surgery Deficient knowledge of leg surgery History of tonsillectomy and adenoidectomy History of appendectomy Family History Family History Father CVD (cardiovascular disease) Mother No problems noted. Family/Other FH: mental illness Social History Social History Household Members: Children Household Members Other:: son Housing: Residential Do you presently have visiting nurse or other home services: Yes (vna) Alcohol intake: never Comment: 1:1 sitter for oxygen administration and redirection Patient Tobacco Use Status: Former Tobacco user Tobacco use type: Cigarette e-Cigarette/Vaping Use: Never Used Second Hand Smoke Exposure: No Advance Directives: Yes Advance Directives on File: Yes Advance Directives Date on File: 06/24/24 Do you have a plan to hurt others: No Plan service: No Current occupational status: disabled Cognitive needs: Yes (Wheelchair, Lift chair) Hearing needs: No Vision needs: Yes (Glasses) Physical Exam Exam: Exam: GENERAL: Chronically ill-appearing, moderate respiratory distress. SKIN: Normal skin color for ethnicity, warm, dry, no rashes noted. HEENT: Normocephalic, atraumatic, no stridor, EOMI. NECK: Soft, supple, full ROM, midline structures nontender, no step-offs, no deformities, no lymphadenopathy. CHEST: Heart regular tachycardia, symmetric chest rise and fall. PULMONARY: Coarse lung sounds bilaterally, diminished at the bases, moderate respiratory distress with poor air movement, no wheezes. ABDOMINAL: Soft, protuberant nontender, quiet bowel sounds in all quadrants. : Deferred. MUSCULOSKELETAL: Normal tone, full range of motion, no deformities, 2+ peripheral edema bilaterally. NEURO: Alert and oriented to person, CN II through XII intact, no focal neurologic deficits. PSYCHIATRIC: Anxious affect, appropriate demeanor. Vital Signs: Vital Signs: Last Vital Signs Temp 98.2 F 07/19/25 03:18 Pulse 64 07/19/25 05:46 Resp 22 H 07/19/25 05:55 BP 129/46 L 07/19/25 05:26 Pulse Ox 98 07/19/25 03:18 O2 Del Method Nasal Cannula 07/19/25 03:18 Oxygen Flow Rate 4 07/19/25 03:18 BMI result Body Mass Index 36.3 Medications Administered Discontinued Medications Generic Name Dose Route Start Last Admin Trade Name Freq PRN Reason Stop Dose Admin Albuterol/Ipratropium 3 ml 07/19/25 03:21 07/19/25 03:25 Albuterol/Iprat 2.5/0.5mg 3 Ml Ampul.Neb INHALE 07/19/25 03:22 3 ml ONCE ONE Administration Albuterol Sulfate 2.5 mg/ 0 mg 07/19/25 05:44 07/19/25 05:46 Albuterol/Ipratropium 3 ml INHALE 07/19/25 05:45 1 dose ONCE ONE Administration Diazepam 5 mg 07/19/25 05:22 07/19/25 05:40 Diazepam 10 Mg/2 Ml Cartridge IVPUSH 07/19/25 05:23 5 mg STAT STA Administration Furosemide 40 mg 07/19/25 04:51 07/19/25 05:26 Furosemide 40 Mg/4 Ml Vial IVPUSH 07/19/25 04:52 40 mg ONCE ONE Administration Protocol Nitroglycerin 1 inch 07/19/25 03:24 07/19/25 03:49 Nitroglycerin 2 % Oint 1 Gm Packet TRANSDERMA 07/19/25 03:25 1 inch ONCE ONE Administration Medical Decision Making Medical Decision Making MDM Narrative: Patient presents in respiratory distress. Differential diagnosis includes flash pulmonary edema, COPD exacerbation, pneumothorax, pneumonia, ACS, pulmonary embolism, metabolic acidosis, among many others. The serious nature of the patient's symptoms makes this presentation complex, with potential for significant, worsening morbidity and mortality without immediate treatment/intervention. An inch of nitro paste was placed on her chest to help with the CHF exacerbation. She received a DuoNeb by EMS and an additional DuoNeb from respiratory therapy here in the emergency department without any real change in her work of breathing. I feel this is more likely a cardiac wheeze than a COPD exacerbation. 6:52 AM 07/19/2025 (Dr. Ana Chris, D.O.) Clinical picture is consistent with CHF exacerbation. I see no evidence of infection at this time. She has no fever, no elevation in her white blood cell count. The x-ray read from the radiologist is saying there is potential right upper lobe infiltrate. I have added on a CT to evaluate this further however, clinically she has no evidence of pneumonia today. That being said, she has crackles at the bases and is diuresing quite a bit after 40 mg of Lasix. I feel this is more of a heart failure picture. She has a BNP of greater than 7000. Plan for admission for further care and evaluation. Patient ultimately did agree to trying BiPAP if I gave her something for sedating purposes. States that she has severe claustrophobia if she uses masks. I gave her a small dose of Valium which seemed to help quite a bit. Patient understands and agrees with plan. Admitted in guarded condition. Differential Diagnosis Differential Diagnoses: The differential diagnosis associated with the presentation includes (As above) Admission/Observation Consideration of admission/observation: Escalation of care including admission/observation considered Consult Healthcare Provider Management of the patient was discussed with: Hospitalist Lab Data MDM Lab Attestation statement: I reviewed the patient's lab results. 07/19/25 03:38 07/19/25 03:38 Labs: Lab Results 07/19/25 07/19/25 07/19/25 Range/Units 03:37 03:38 03:43 WBC 9.1 (4.8-10.8) X10*3/uL RBC 3.07 L (4.20-5.50) X10*6/uL Hgb 8.8 L (12.0-16.0) g/dl Hct 29.0 L (37.0-47.0) % MCV 94.5 (80.0-98.0) fL MCH 28.7 (27.0-33.0) pg MCHC 30.3 L (31.0-35.0) g/dl RDW 16.7 H (11.0-16.0) % Plt Count 404 H D (160-400) X10*3/uL MPV 8.6 L (9.4-12.3) fL Immature Gran % (Auto) 2.3 H (0.0-0.4) % Neut % (Auto) 81.9 H (45-73) % Lymph % (Auto) 6.0 L (20-40) % [place] % (Auto) 6.7 (2-11) % Eos % (Auto) 2.4 (0-4) % Baso % (Auto) 0.7 (0-2) % Lymph # (Auto) 0.6 L (1.2-4.9) X10*3/uL [place] # (Auto) 0.6 (0.1-1.2) X10*3/uL Eos # (Auto) 0.2 (0.0-0.4) X10*3/uL Baso # (Auto) 0.1 (0.0-0.2) X10*3/uL Abs Immat Gran (auto) 0.21 H (0.00-0.03) X10*3/uL Absolute Neuts (auto) 7.5 (2.0-8.3) x10*3/uL Absolute Nucleated RBC 0.000 (0.0-0.012) X10*3/uL Nucleated RBC % (auto) 0.0 (0.0-0.2) /100WBC Hold Purple Top SEE NOTE PT 11.0 D (10.9-12.4) SEC INR 1.0 (0.9-1.1) VBG pH 7.29 L (7.32-7.43) VBG pCO2 53 mmHg VBG pO2 46 mmHg VBG HCO3 26 (22-26) mmol/L VBG O2 Saturation 74.0 % VBG Base Excess -0.6 mmol/L Sodium 144 (135-145) mmol/L Potassium 4.9 (3.3-5.1) mmol/L Chloride 110 H (96-108) mmol/L Carbon Dioxide 24 (22-29) mmol/L Anion Gap 15 (12-20) BUN 38 H (9-16) mg/dL Creatinine 1.53 H (0.5-1.4) mg/dL Estim Creat Clear Calc 35.9 Estimated GFR 33 Random Glucose 153 H (60-115) mg/dL Calcium 8.4 (8.4-10.2) mg/dL Magnesium 2.6 (1.6-2.6) mg/dL Total Bilirubin 0.2 (0.0-1.0) mg/dL AST 22 (5-31) U/L ALT < 6 (0-31) U/L Alkaline Phosphatase 124 H (39-117) U/L Troponin I High Sens 29.9 H (<3.5-17.0) ng/L NT-Pro-B Natriuret Pep 7068.7 H (<300) pg/mL Total Protein 7.0 (6.5-8.0) g/dL Albumin 3.3 L (3.5-5.0) g/dL Hold Green Top See Note COVID-19 (CAROLYN) Negative (Negative) COVID-19 Clin Com See Note Influenza Type A (NEIL) Negative (Negative) Influenza Type B (NEIL) Negative (Negative) Influenza A & B Note See Note 07/19/25 Range/Units 06:05 WBC (4.8-10.8) X10*3/uL RBC (4.20-5.50) X10*6/uL Hgb (12.0-16.0) g/dl Hct (37.0-47.0) % MCV (80.0-98.0) fL MCH (27.0-33.0) pg MCHC (31.0-35.0) g/dl RDW (11.0-16.0) % Plt Count (160-400) X10*3/uL MPV (9.4-12.3) fL Immature Gran % (Auto) (0.0-0.4) % Neut % (Auto) (45-73) % Lymph % (Auto) (20-40) % [place] % (Auto) (2-11) % Eos % (Auto) (0-4) % Baso % (Auto) (0-2) % Lymph # (Auto) (1.2-4.9) X10*3/uL [place] # (Auto) (0.1-1.2) X10*3/uL Eos # (Auto) (0.0-0.4) X10*3/uL Baso # (Auto) (0.0-0.2) X10*3/uL Abs Immat Gran (auto) (0.00-0.03) X10*3/uL Absolute Neuts (auto) (2.0-8.3) x10*3/uL Absolute Nucleated RBC (0.0-0.012) X10*3/uL Nucleated RBC % (auto) (0.0-0.2) /100WBC Hold Purple Top PT (10.9-12.4) SEC INR (0.9-1.1) VBG pH (7.32-7.43) VBG pCO2 mmHg VBG pO2 mmHg VBG HCO3 (22-26) mmol/L VBG O2 Saturation % VBG Base Excess mmol/L Sodium (135-145) mmol/L Potassium (3.3-5.1) mmol/L Chloride (96-108) mmol/L Carbon Dioxide (22-29) mmol/L Anion Gap (12-20) BUN (9-16) mg/dL Creatinine (0.5-1.4) mg/dL Estim Creat Clear Calc Estimated GFR Random Glucose (60-115) mg/dL Calcium (8.4-10.2) mg/dL Magnesium (1.6-2.6) mg/dL Total Bilirubin (0.0-1.0) mg/dL AST (5-31) U/L ALT (0-31) U/L Alkaline Phosphatase (39-117) U/L Troponin I High Sens 35.7 H (<3.5-17.0) ng/L NT-Pro-B Natriuret Pep (<300) pg/mL Total Protein (6.5-8.0) g/dL Albumin (3.5-5.0) g/dL Hold Green Top COVID-19 (CAROLYN) (Negative) COVID-19 Clin Com Influenza Type A (NEIL) (Negative) Influenza Type B (NEIL) (Negative) Influenza A & B Note Independent Interpretation I performed an independent interpretation of an: EKG and Plain X-Ray Interpretation: My independent interpretation of the ECG reveals normal sinus rhythm with rate of 81, LAD, normal intervals, no ST elevations or depressions to suggest ischemic changes, poor R-wave progression relatively unchanged from previous on 05/10/2025. Radiology Impression Discussion of test interpretation with radiology: I have reviewed the radiologist's reading. Independent Historian Clinical information obtained from an independent historian. History obtained from or confirmed by: EMS External Record Review External record reviewed: Inpatient record Chronic Conditions Patient?s care impacted by: Diabetes, Hypertension and Other (COPD) Social Determinants Patient?s care significantly limited by Social Determinants of Health including: Problems related to primary support group and Other Social Determinant of Health Critical Care Time Critical Care Time Critical Care Time: Yes Total Critical Care Time: 36 Attestation: CRITICAL CARE TIME: 36 minutes of critical care time was spent in direct patient care at the bedside or in the immediate area with this patient. Critical care was necessary to treat or prevent imminent or life-threatening deterioration of the following conditions acute respiratory failure with hypercapnia due to CHF exacerbation. This patient is high risk for decompensation and/or . This time was spent assessing and managing the patient, interpreting labs and imaging, coordinating care with other medical providers, gathering history from either the patient, their representatives, EMS or chart review, and discussing management with admitting team. Discharge Plan Discharge Clinical Impression: Acute exacerbation of CHF (congestive heart failure), Acute dyspnea Patient Disposition: Admitted As Inpatient Print Language: Kyr[place]z
[2025-07-19] MEDS: Nitroglycerin 2 % Oint 1 GM Packet 1 INCH TRANSDERMA (03:49)
[2025-07-19 03:51] LABS: INTERNATIONAL NORM RATIO 1.0 (0.9-1.1); Prothrombin Time 11.0 SEC (10.9-12.4)
[2025-07-19 03:57] LABS: COVID-19 Test Negative (Negative); IDNOW Serial# 55D5AD1C; IDNOW Serial# 58CA691E; Influenza B2 Negative (Negative)
[2025-07-19 04:01] LABS: Alanine Aminotransferase < 6 U/L (0-31); Albumin Level 3.3 g/dL (3.5-5.0); Alkaline Phosphatase 124 U/L (39-117); Anion Gap 15 (12-20); Aspartate Amino Transferase 22 U/L (5-31); Blood Urea Nitrogen 38 mg/dL (9-16); Calcium 8.4 mg/dL (8.4-10.2); Carbon Dioxide 24 mmol/L (22-29); Chloride 110 mmol/L (96-108); Creatinine Clr Calc Pharmacy 35.9; Estimated Glomerular Filt Rate 33; Magnesium 2.6 mg/dL (1.6-2.6); Potassium 4.9 mmol/L (3.3-5.1); Sodium 144 mmol/L (135-145); Total Protein 7.0 g/dL (6.5-8.0)
[2025-07-19 04:04] LABS: Venous Blood Gas Refer to POC result
[2025-07-19 04:06] LABS: VBG HCO3 26 mmol/L (22-26); VBG O2 % Saturation 74.0 %
[2025-07-19 04:07] LABS: NT Pro B Type Natriuretic Pept 7068.7 pg/mL (<300); Troponin-I High Sensitivity 29.9 ng/L (<3.5-17.0)
[2025-07-19] MEDS: Furosemide 40 MG/4 ML VIAL IVPUSH ×3 (05:26→20:49)
[2025-07-19] MEDS: diazePAM 10 MG/2 ML CARTRIDGE 5 MG IVPUSH (05:40)
[2025-07-19] MEDS: Albuterol Sulfate 2.5 MG, Albuterol/Iprat 2.5/0.5MG 3 ML 3 ML INHALE (05:46)
[2025-07-19 06:28] LABS: Troponin-I High Sensitivity 35.7 ng/L (<3.5-17.0)
--- NOTE | 2025-07-19 06:42 | PM.IMHP ---
History of Present Illness Date of Service: 07/19/25 Attending physician on admission: Tommie Ho Chief Complaint: SOB Patient is a 79-year-old female with a past medical history significant for COPD with O2 dependence, CKD 3B, hypertension, hyperlipidemia, hypothyroid, HFpEF (last echo 05/10/2025), chronic indwelling Moyer, class 2 obesity and insulin-dependent diabetes, who presented to the ED due to shortness of breath and chest pressure for the last 2 days. The patient reports his shortness of breath we will occur in the middle of the night. At baseline she uses 2 L of oxygen felt she needed to increase to 4 L. patient was saturating at 98% when EMS arrived on 4 L. In the ED chest x-ray shows right upper lung infiltrates versus consolidation, chest CT recommended in ordered. Bilateral lower extremity edema and crackles in the lungs, given 40 mg IV Lasix. Patient currently on CPAP. Troponins flat and EKG nonischemic. BNP elevated at 7068.7. Review of Systems Constitutional: Constitutional: Denies body ache(s), Denies chills, Denies fatigue, Denies fever(s) and Denies headache(s) Eyes: Eyes: Denies change in vision ENT: Denies headache(s), Denies nasal congestion and Denies sore throat Cardiovascular: Cardiovascular: Reports chest pain, Denies rapid heart rate, Denies lightheadedness and Reports dyspnea Respiratory: Respiratory: Denies chest congestion, Reports cough, Reports dyspnea and Denies wheezing Gastrointestinal: Gastrointestinal: Denies abdominal pain, Denies diarrhea, Denies nausea and Denies vomiting Genitourinary: Genitourinary: Denies dysuria and Denies urinary hesitancy Musculoskeletal: Musculoskeletal: Denies back pain Integumentary/Breasts: Skin/Breast: Denies rash Neurologic: Denies confusion and Denies headache(s) Psychiatric: Psychiatric: Denies confusion Endocrine: Endocrine: Denies fatigue Hematologic/Lymphatic: Hematologic/Lymphatic: Denies easy bleeding and Denies easy bruising Allergic/Immunologic: Allergic/Immunologic: Denies wheezing [facility] Medical History Obesity hypoventilation syndrome Pulmonary hypertension Lymphedema COPD (chronic obstructive pulmonary disease) CHF (congestive heart failure) Hypothyroidism Diabetes mellitus Pure hypercholesterolemia Open wound Bilateral hydronephrosis Skin ulcer of sacral region COPD exacerbation MARJORIE (acute kidney injury) Pneumonitis CKD (chronic kidney disease) Renal insufficiency Urinary retention Lumbar degenerative disc disease Chronic pain syndrome Venous stasis dermatitis Atelectasis Generalized anxiety disorder CHF (congestive heart failure) Anemia Herpes zoster Left bundle branch block Morbid obesity Chronic pain syndrome Anxiety Pernicious anemia Essential hypertension Family History Father CVD (cardiovascular disease) Mother No problems noted. Family/Other FH: mental illness Surgical History H/O left knee surgery Deficient knowledge of leg surgery History of tonsillectomy and adenoidectomy History of appendectomy Social History Household Members: Children Household Members Other:: son Housing: Correction Do you presently have visiting nurse or other home services: Yes (vna) Alcohol intake: never Comment: 1:1 sitter for oxygen administration and redirection Patient Tobacco Use Status: Former Tobacco user Tobacco use type: Cigarette e-Cigarette/Vaping Use: Never Used Second Hand Smoke Exposure: No Advance Directives: Yes Advance Directives on File: Yes Advance Directives Date on File: 06/24/24 Do you have a plan to hurt others: No Plan service: No Current occupational status: disabled Cognitive needs: Yes (Wheelchair, Lift chair) Hearing needs: No Vision needs: Yes (Glasses) Narrative: No smoking or alcohol Meds Allergies Allergy/AdvReac Type Severity Reaction Status Date / Time ibuprofen (From Motrin) Allergy Unknown swelling Verified 07/19/25 03:19 codeine (CODEINE) AdvReac Unknown SLEEPY Verified 07/19/25 03:19 Home Medications ?Medication ?Instructions ?Recorded ?Confirmed ?Last Taken ?Type lorazepam 0.5 mg tablet (Ativan) 0.5 mg PO BID 04/25/25 05/10/25 Unknown History lorazepam 0.5 mg tablet (Ativan) 1 mg PO Q6H PRN Anxiety 04/25/25 05/10/25 Unknown History acetaminophen 325 mg tablet 650 mg PO Q4H PRN Fever Or Pain 05/10/25 05/10/25 Unknown History acetaminophen 650 mg rectal 650 mg MD Q4H PRN Fever Or Pain 05/10/25 05/10/25 Unknown History suppository bisacodyl 10 mg rectal suppository 10 mg MD DAILY PRN Constipation 05/10/25 05/10/25 Unknown History insulin lispro 100 unit/mL 1 sliding scale dose subcut TIDAC 05/10/25 05/10/25 Unknown History subcutaneous solution (Humalog U-100 Insulin) magnesium hydroxide 400 mg/5 mL 30 ml PO DAILY PRN Constipation 05/10/25 05/10/25 Unknown History oral suspension (Milk of Magnesia) sodium phosphates 19 gram-7 118 ml MD DAILY PRN Constipation 05/10/25 05/10/25 Unknown History gram/118 mL enema (Fleet Enema) empagliflozin 10 mg tablet 10 mg PO DAILY 06/05/25 Unknown History (Jardiance) Physical Exam Vital Signs and Narrative: Vital Signs: Last Vital Signs Temp 98.2 F 07/19/25 03:18 Pulse 64 07/19/25 05:46 Resp 22 H 07/19/25 05:55 BP 129/46 L 07/19/25 05:26 Pulse Ox 98 07/19/25 03:18 O2 Del Method Nasal Cannula 07/19/25 03:18 Oxygen Flow Rate 4 07/19/25 03:18 BMI result Body Mass Index 36.3 General: AOx3, no acute distress Resp: crackles bilateral lung bases, on CPAP CVS: S1, S2, RRR GI: +BS, NT, no distention Skin: Warm, dry Neuro: Cranial nerves II-XII grossly intact bilaterally. Motor grossly intact bilaterally Extremities: 1+pitting edema Psych: Appropriate affect Const: General: No confusion Orientation/consciousness: No confusion Neuro: General: No confusion Results Labs 07/19/25 03:38 07/19/25 03:38 Labs: Laboratory Results - last 24 hr 07/19/25 07/19/25 07/19/25 03:37 03:38 03:43 MCV 94.5 MCH 28.7 MCHC 30.3 L RDW 16.7 H Plt Count 404 H D MPV 8.6 L Immature Gran % (Auto) 2.3 H Neut % (Auto) 81.9 H Lymph % (Auto) 6.0 L [place] % (Auto) 6.7 Eos % (Auto) 2.4 Baso % (Auto) 0.7 Lymph # (Auto) 0.6 L [place] # (Auto) 0.6 Eos # (Auto) 0.2 Baso # (Auto) 0.1 Abs Immat Gran (auto) 0.21 H Absolute Neuts (auto) 7.5 Absolute Nucleated RBC 0.000 Nucleated RBC % (auto) 0.0 Hold Purple Top SEE NOTE PT 11.0 D INR 1.0 VBG pH 7.29 L VBG pCO2 53 VBG pO2 46 VBG HCO3 26 VBG O2 Saturation 74.0 VBG Base Excess -0.6 Anion Gap 15 Estim Creat Clear Calc 35.9 Estimated GFR 33 Random Glucose 153 H Calcium 8.4 Magnesium 2.6 Total Bilirubin 0.2 AST 22 ALT < 6 Alkaline Phosphatase 124 H Troponin I High Sens 29.9 H NT-Pro-B Natriuret Pep 7068.7 H Total Protein 7.0 Albumin 3.3 L Hold Green Top See Note COVID-19 (CAROLYN) Negative COVID-19 Clin Com See Note Influenza Type A (NEIL) Negative Influenza Type B (NEIL) Negative Influenza A & B Note See Note 07/19/25 06:05 MCV MCH MCHC RDW Plt Count MPV Immature Gran % (Auto) Neut % (Auto) Lymph % (Auto) [place] % (Auto) Eos % (Auto) Baso % (Auto) Lymph # (Auto) [place] # (Auto) Eos # (Auto) Baso # (Auto) Abs Immat Gran (auto) Absolute Neuts (auto) Absolute Nucleated RBC Nucleated RBC % (auto) Hold Purple Top PT INR VBG pH VBG pCO2 VBG pO2 VBG HCO3 VBG O2 Saturation VBG Base Excess Anion Gap Estim Creat Clear Calc Estimated GFR Random Glucose Calcium Magnesium Total Bilirubin AST ALT Alkaline Phosphatase Troponin I High Sens 35.7 H NT-Pro-B Natriuret Pep Total Protein Albumin Hold Green Top COVID-19 (CAROLYN) COVID-19 Clin Com Influenza Type A (NEIL) Influenza Type B (NEIL) Influenza A & B Note Assessment and Plan (1) Acute exacerbation of CHF (congestive heart failure): Status: Acute (2) Respiratory acidosis: Status: Acute (3) Chronic anemia: Status: Acute (4) CKD stage 3b, GFR 30-44 ml/min: Status: Acute (5) Class 2 obesity: Status: Acute Plan Patient is a 79-year-old female with a past medical history significant for COPD with O2 dependence, CKD 3B, hypertension, hyperlipidemia, hypothyroid, HFpEF (last echo 05/10/2025), chronic indwelling Moyer, class 2 obesity and insulin-dependent diabetes, who presented to the ED due to shortness of breath and chest pressure for the last 2 days with suspected CHF exacerbation. acute CHF exacerbation with mild respiratory acidosis on VBG - IV lasix 40mg BID - cardiology consult - chest CT r/o underlying pneunomia due to XR recomendations elevated trops, flat, EKG nonischemic - tele - cardiology consult COPD with O2 dependence, no acute exacerbation - duonebs PRN chronic anemia, stable CKD 3B, at baseline HTN - continue home meds HLD - continue home meds hypothyroid - levothyroxine class 2 obesity - weight loss encouraged IDDM - SSI - lantus 16U QHS, reduced dose med rec pending full code VTE prophy: lovenox Pt with acute CHF exacerbation, requiring admission for at least 2 midnight stay for IV diuresis and monitoring. Quality Stroke Does the patient have a stroke diagnosis?: No VTE Prior VTE?: No VTE Risk Level:: Medical - moderate - high VTE Device Contraindication: Treatment Not Indicated VTE Drug Contraindication: N/A - Med Ordered
[2025-07-19 07:22] LABS: Glucose, Whole Blood 84 mg/dL (60-115)
--- NOTE | 2025-07-19 08:37 | PC.NURSE ---
pts catheter was leaking and pt reports burning with urination. C Francisco bubble may have been burst, 10 ml liquid extracted was brown with sediment. When francisco removed, it has had brownish exudate on it. Patria-gential skin sloughing and impaired. atheter changed. Draining cloudy urine, peachy, with sediment.
--- NOTE | 2025-07-19 09:22 | PHA.MEDREC ---
Addendum entered by Ana Lang [facility] 07/19/25 12:43: MED REC REVIEWED BY [facility] Dr. Mujica was aware that pharmacy was unable to confirm the furosemide dosing. Original Note: Pharmacy Consult ? Medication Reconciliation Pharmacy has completed the medication reconciliation. Spoke to patient tracy Avalos over the phone to confirm med list Son was able to confirm patients medication. Patient is no longer taking Benzonatate 100 mg, Bisacodyl , Milk of Magnesia, Sertraline 75 mg, sodium bicarbonate 650. Son confirmed Isnulin Degludec 100/ML 25 units at bedtime Humalog Per sliding scale. Son was not sure about Furosmide 40 mg last filled 01/12/90 for 90 days, left unconfirmed.
[2025-07-19] MEDS: 0.9 % Sodium Chloride Flush 3 ML SYRINGE IVFLUSH ×3 (09:27→22:13)
--- NOTE | 2025-07-19 09:36 | PC.NURSE ---
Patient reporting pain when trying to urinate. Catheter bag will scant amount of urine in bag. Attempted to flush cathter , patient voiding around francisco. Francisco rmeoved, new 16fr 10cc francisco placed. Patient groin and dorcas area excoriated but intact. Area cleaned, message sent ot provider regarding cath change and order for nystatin
--- NOTE | 2025-07-19 12:05 | MHC.EDTECH ---
pt assisted with transfer to hospital bed. pt laying left lateral with pillows underneath dt/ b/l butt cheek sore. call hull and bedside table within reach, bed alarm on, no other needs at this time.
[2025-07-19 12:54] LABS: Glucose, Whole Blood 145 mg/dL (60-115)
--- NOTE | 2025-07-19 13:58 | MHC.CM.PN ---
IMM 07/19/25, Pt. lives at her home with her son, and he is her caregiver, she was active with [facility]. PCP confirmed: Neida Soto, HCP is on file and confirmed: her son, Robbie. For DME, the pt. has: home O2 from [employer], tripod walker, commode. Transportation home at DC is son. DCP: home, resume [facility] services. CM to follow for DC needs.
--- NOTE | 2025-07-19 14:24 | PM.CNCAR ---
History of Present Illness History of Present Illness Date of Service: 07/19/25 Chief complaint: CHF Narrative: 79-year-old female with background history of obesity, kidney disease, anemia and COPD presenting with shortness of breath and congestive heart failure. She is currently on noninvasive positive pressure ventilation. She is saying she had she is feeling better. She said she was experiencing shortness of breath which was progressive. She has been taking medications regularly. Watching salt in her diet. Bilateral lower extremity erythema and swelling which is chronic. [facility] Past Medical History Medical History Obesity hypoventilation syndrome Pulmonary hypertension Lymphedema COPD (chronic obstructive pulmonary disease) CHF (congestive heart failure) Hypothyroidism Diabetes mellitus Pure hypercholesterolemia Open wound Bilateral hydronephrosis Skin ulcer of sacral region COPD exacerbation MARJORIE (acute kidney injury) Pneumonitis CKD (chronic kidney disease) Renal insufficiency Urinary retention Lumbar degenerative disc disease Chronic pain syndrome Venous stasis dermatitis Atelectasis Generalized anxiety disorder CHF (congestive heart failure) Anemia Herpes zoster Left bundle branch block Morbid obesity Chronic pain syndrome Anxiety Pernicious anemia Essential hypertension Family History Family History Father CVD (cardiovascular disease) Mother No problems noted. Family/Other FH: mental illness Surgical History Surgical History H/O left knee surgery Deficient knowledge of leg surgery History of tonsillectomy and adenoidectomy History of appendectomy Social History Social History Household Members: Children Household Members Other:: son Housing: Senior Living Do you presently have visiting nurse or other home services: Yes (vna) Alcohol intake: never Comment: 1:1 sitter for oxygen administration and redirection Patient Tobacco Use Status: Former Tobacco user Tobacco use type: Cigarette e-Cigarette/Vaping Use: Never Used Second Hand Smoke Exposure: No Advance Directives: Yes Advance Directives on File: Yes Advance Directives Date on File: 06/24/24 Do you have a plan to hurt others: No Plan service: No Current occupational status: disabled Cognitive needs: Yes (Wheelchair, Lift chair) Hearing needs: No Vision needs: Yes (Glasses) Meds Allergies Allergy/AdvReac Type Severity Reaction Status Date / Time ibuprofen (From Motrin) Allergy Unknown swelling Verified 07/19/25 03:19 codeine (CODEINE) AdvReac Unknown SLEEPY Verified 07/19/25 03:19 Active Medications: Current Medications Acetaminophen (Acetaminophen 325 Mg Tablet) 650 mg PO Q6H PRN PRN Reason: Pain, Mild 1-3,fever,headache Albuterol/Ipratropium (Albuterol/Iprat 2.5/0.5mg 3 Ml Ampul.Neb) 3 ml INHALE Q4H PRN PRN Reason: Shortness of Breath/Wheezing Benzonatate (Benzonatate 100 Mg Capsule) 100 mg PO TID PRN PRN Reason: Cough Calcium Carbonate (Calcium Carbonate 750 Mg Tab.Chew) 750 mg PO Q4H PRN PRN Reason: Heartburn Dextrose (Dextrose 50 % 25 Gm/50 Ml Syringe) 25 gm IVPUSH Q15M PRN; Protocol PRN Reason: per Hypoglycemia Standing Ord. Enoxaparin Sodium (Enoxaparin Sodium 40 Mg/0.4 Ml Syringe) 40 mg SUBCUT Q24H [facility] Last Admin: 07/19/25 09:27 Dose: 40 mg Furosemide (Furosemide 40 Mg/4 Ml Vial) 40 mg IVPUSH DAILY [facility]; Protocol Last Admin: 07/19/25 09:26 Dose: 40 mg Glucose (Glucose Gel 15 Gm Gel..Gram.) 15 gm PO Q15M PRN; Protocol PRN Reason: per Hypoglycemia Standing Ord. Insulin Glargine (Insulin Glargine,Hum.Rec.Anlog 100 Unit/Ml 10 Ml Vial) 16 unit SUBCUT BEDTIME [facility] Insulin Human Lispro (Insulin Lispro 100 Unit/Ml 3 Ml Vial) 0 unit SUBCUT QIDACHS [facility]; Protocol Last Admin: 07/19/25 13:14 Dose: Not Given Levothyroxine Sodium (Levothyroxine Sodium 200 Mcg Tablet) 200 mcg PO DAILY@0600 [facility] Magnesium Hydroxide (Milk Of Magnesia 30 Ml Oral.Susp) 30 ml PO DAILY PRN PRN Reason: Constipation Melatonin (Melatonin 3 Mg Tablet) 6 mg PO BEDTIME PRN PRN Reason: Insomnia Sodium Chloride (0.9 % Sodium Chloride Flush 3 Ml Syringe) [facility] Last Admin: 07/19/25 09:27 Dose: 3 ml Home Medications ?Medication ?Instructions ?Recorded ?Confirmed ?Last Taken ?Type lorazepam 0.5 mg tablet (Ativan) 0.5 mg PO BID 04/25/25 07/19/25 07/18/25 History lorazepam 0.5 mg tablet (Ativan) 1 mg PO Q6H PRN Anxiety 04/25/25 07/19/25 Unknown History acetaminophen 325 mg tablet 650 mg PO Q4H PRN Fever Or Pain 05/10/25 07/19/25 Unknown History insulin lispro 100 unit/mL 1 sliding scale dose subcut TIDAC 05/10/25 07/19/25 07/18/25 History subcutaneous solution (Humalog U-100 Insulin) empagliflozin 10 mg tablet 10 mg PO DAILY 06/05/25 07/19/25 07/18/25 History (Jardiance) Physical Exam Vital Signs: Vital Signs: Last Vital Signs Temp 98.5 F 07/19/25 11:03 Pulse 66 07/19/25 12:06 Resp 18 07/19/25 12:06 BP 135/46 L 07/19/25 12:06 Pulse Ox 98 07/19/25 12:06 O2 Del Method BiPAP 07/19/25 12:06 O2 Flow Rate 4 07/19/25 10:09 Oxygen Flow Rate 4 07/19/25 03:18 BMI result Body Mass Index 36.3 GENERAL APPEARANCE: On noninvasive positive pressure ventilation. NECK: no carotid bruit, + jugular venous distention. SKIN: no suspicious lesions, warm and dry. HEART: no murmurs, regular rate and rhythm. LUNGS: clear to auscultation anteriorly. ABDOMEN: soft, nontender. EXTREMITIES: + edema. Erythema bilaterally. PERIPHERAL PULSES: equal. NEUROLOGIC: No gross deficits, AAO X 3 Objective Labs and Meds 07/19/25 03:38 07/19/25 03:38 Lab results: Laboratory Results - last 24 hr 07/19/25 07/19/25 07/19/25 03:37 03:38 03:43 WBC 9.1 RBC 3.07 L Hgb 8.8 L Hct 29.0 L MCV 94.5 MCH 28.7 MCHC 30.3 L RDW 16.7 H Plt Count 404 H D MPV 8.6 L Immature Gran % (Auto) 2.3 H Neut % (Auto) 81.9 H Lymph % (Auto) 6.0 L [place] % (Auto) 6.7 Eos % (Auto) 2.4 Baso % (Auto) 0.7 Lymph # (Auto) 0.6 L [place] # (Auto) 0.6 Eos # (Auto) 0.2 Baso # (Auto) 0.1 Abs Immat Gran (auto) 0.21 H Absolute Neuts (auto) 7.5 Absolute Nucleated RBC 0.000 Nucleated RBC % (auto) 0.0 Hold Purple Top SEE NOTE PT 11.0 D INR 1.0 VBG pH 7.29 L VBG pCO2 53 VBG pO2 46 VBG HCO3 26 VBG O2 Saturation 74.0 VBG Base Excess -0.6 Sodium 144 Potassium 4.9 Chloride 110 H Carbon Dioxide 24 Anion Gap 15 BUN 38 H Creatinine 1.53 H Estim Creat Clear Calc 35.9 Estimated GFR 33 POC Glucose Random Glucose 153 H Calcium 8.4 Magnesium 2.6 Total Bilirubin 0.2 AST 22 ALT < 6 Alkaline Phosphatase 124 H Troponin I High Sens 29.9 H NT-Pro-B Natriuret Pep 7068.7 H Total Protein 7.0 Albumin 3.3 L Hold Green Top See Note COVID-19 (CAROLYN) Negative COVID-[employer]Flow Com See Note Influenza Type A (NEIL) Negative Influenza Type B (NEIL) Negative Influenza A & B Note See Note 07/19/25 07/19/25 07/19/25 06:05 07:19 12:45 WBC RBC Hgb Hct MCV MCH MCHC RDW Plt Count MPV Immature Gran % (Auto) Neut % (Auto) Lymph % (Auto) [place] % (Auto) Eos % (Auto) Baso % (Auto) Lymph # (Auto) [place] # (Auto) Eos # (Auto) Baso # (Auto) Abs Immat Gran (auto) Absolute Neuts (auto) Absolute Nucleated RBC Nucleated RBC % (auto) Hold Purple Top PT INR VBG pH VBG pCO2 VBG pO2 VBG HCO3 VBG O2 Saturation VBG Base Excess Sodium Potassium Chloride Carbon Dioxide Anion Gap BUN Creatinine Estim Creat Clear Calc Estimated GFR POC Glucose 84 145 H Random Glucose Calcium Magnesium Total Bilirubin AST ALT Alkaline Phosphatase Troponin I High Sens 35.7 H NT-Pro-B Natriuret Pep Total Protein Albumin Hold Green Top COVID-19 (CAROLYN) COVID-[facility]er Clin Com Influenza Type A (NEIL) Influenza Type B (NEIL) Influenza A & B Note Imaging Radiologist's impression: Impressions Chest CT 07/19/25 11:47 IMPRESSION: 1. In the posterior segment right upper lobe, there is a subsegmental stellate consolidation with associated retraction of the major fissure, in retrospect similar but minimally larger from exams dating back to 2021. This most likely represents a nodular region of scarring and/or cicatrization atelectasis. The possibility of a slow-growing neoplasm such as adenocarcinoma is not entirely excluded given the appearance of the abnormality. 2. There is mild to moderate centrilobular emphysema. 3. There are tiny bilateral pleural effusions with associated passive atelectasis. There is mild interstitial pulmonary edema present. 4. There is mild to moderate cardiac enlargement. 5. Enlargement of the main pulmonary artery suggesting pulmonary arterial hypertension. Electronically signed by: Rigoberto Manning MD 07/19/2025 12:41 PM EDT RP Assessment and Plan (1) Acute exacerbation of CHF (congestive heart failure): Status: Acute Plan Pleasant 79 year female presenting with shortness of breath and congestive heart failure. Clinically volume overloaded. Agree with IV diuretics. Aim for a negative balance of 1500 mL to 2000 mL. We will follow along with you. Procedures Date of Service Date of Service: 07/19/25
--- NOTE | 2025-07-19 14:39 | MHC.EDTECH ---
pt repositioned to right lateral with pillows behind back. allevyn dressing placed on coccyx bed sore
--- NOTE | 2025-07-19 14:49 | MHC.EDTECH ---
emptied 600mL of yellow cloudy urine from francisco catheter bag
--- NOTE | 2025-07-19 16:07 | P.PNIM_ITS ---
Subjective Subjective Date of Service: 07/19/25 Interval History: Seen/examined, on bipap, hemodynamically stable. Physical Exam 2 Exam: Exam: see h and p from this morning Vital Signs: Vital Signs: Last Vital Signs Temp 98.8 F 07/19/25 14:12 Pulse 65 07/19/25 14:33 Resp 18 07/19/25 14:33 BP 102/64 07/19/25 14:12 Pulse Ox 94 07/19/25 14:12 O2 Del Method BiPAP 07/19/25 14:12 O2 Flow Rate 4 07/19/25 10:09 Oxygen Flow Rate 4 07/19/25 03:18 BMI result Body Mass Index 36.3 Objective Data Active Medications Acetaminophen (Acetaminophen 325 Mg Tablet) 650 mg PO Q6H PRN PRN Reason: Pain, Mild 1-3,fever,headache Albuterol/Ipratropium (Albuterol/Iprat 2.5/0.5mg 3 Ml Ampul.Neb) 3 ml INHALE Q4H PRN PRN Reason: Shortness of Breath/Wheezing Last Admin: 07/19/25 14:31 Dose: 3 ml Documented By: RADHA Benzonatate (Benzonatate 100 Mg Capsule) 100 mg PO TID PRN PRN Reason: Cough Calcium Carbonate (Calcium Carbonate 750 Mg Tab.Chew) 750 mg PO Q4H PRN PRN Reason: Heartburn Dextrose (Dextrose 50 % 25 Gm/50 Ml Syringe) 25 gm IVPUSH Q15M PRN; Protocol PRN Reason: per Hypoglycemia Standing Ord. Enoxaparin Sodium (Enoxaparin Sodium 40 Mg/0.4 Ml Syringe) 40 mg SUBCUT Q24H [facility] Last Admin: 07/19/25 09:27 Dose: 40 mg Documented By: SAM Furosemide (Furosemide 40 Mg/4 Ml Vial) 40 mg IVPUSH DAILY [facility]; Protocol Last Admin: 07/19/25 09:26 Dose: 40 mg Documented By: SAM Glucose (Glucose Gel 15 Gm Gel..Gram.) 15 gm PO Q15M PRN; Protocol PRN Reason: per Hypoglycemia Standing Ord. Insulin Glargine (Insulin Glargine,Hum.Rec.Anlog 100 Unit/Ml 10 Ml Vial) 16 unit SUBCUT BEDTIME [facility] Insulin Human Lispro (Insulin Lispro 100 Unit/Ml 3 Ml Vial) 0 unit SUBCUT QIDACHS [facility]; Protocol Last Admin: 07/19/25 13:14 Dose: Not Given Documented By: EMBER Non-Admin Reason: No Insulin Coverage Levothyroxine Sodium (Levothyroxine Sodium 200 Mcg Tablet) 200 mcg PO DAILY@0600 [facility] Magnesium Hydroxide (Milk Of Magnesia 30 Ml Oral.Susp) 30 ml PO DAILY PRN PRN Reason: Constipation Melatonin (Melatonin 3 Mg Tablet) 6 mg PO BEDTIME PRN PRN Reason: Insomnia Sodium Chloride (0.9 % Sodium Chloride Flush 3 Ml Syringe) 3 ml IVFLUSH QSHIFT [facility] Last Admin: 07/19/25 09:27 Dose: 3 ml Documented By: SAM Labs 07/19/25 03:38 07/19/25 03:38 Labs: Laboratory Results - last 24 hr 07/19/25 07/19/25 07/19/25 03:37 03:38 03:43 MCV 94.5 MCH 28.7 MCHC 30.3 L RDW 16.7 H Plt Count 404 H D MPV 8.6 L Immature Gran % (Auto) 2.3 H Neut % (Auto) 81.9 H Lymph % (Auto) 6.0 L [place] % (Auto) 6.7 Eos % (Auto) 2.4 Baso % (Auto) 0.7 Lymph # (Auto) 0.6 L [place] # (Auto) 0.6 Eos # (Auto) 0.2 Baso # (Auto) 0.1 Abs Immat Gran (auto) 0.21 H Absolute Neuts (auto) 7.5 Absolute Nucleated RBC 0.000 Nucleated RBC % (auto) 0.0 Hold Purple Top SEE NOTE PT 11.0 D INR 1.0 VBG pH 7.29 L VBG pCO2 53 VBG pO2 46 VBG HCO3 26 VBG O2 Saturation 74.0 VBG Base Excess -0.6 Anion Gap 15 Estim Creat Clear Calc 35.9 Estimated GFR 33 POC Glucose Random Glucose 153 H Calcium 8.4 Magnesium 2.6 Total Bilirubin 0.2 AST 22 ALT < 6 Alkaline Phosphatase 124 H Troponin I High Sens 29.9 H NT-Pro-B Natriuret Pep 7068.7 H Total Protein 7.0 Albumin 3.3 L Hold Green Top See Note COVID-19 (CAROLYN) Negative COVID-19 Clin Com See Note Influenza Type A (NEIL) Negative Influenza Type B (NEIL) Negative Influenza A & B Note See Note 07/19/25 07/19/25 07/19/25 06:05 07:19 12:45 MCV MCH MCHC RDW Plt Count MPV Immature Gran % (Auto) Neut % (Auto) Lymph % (Auto) [place] % (Auto) Eos % (Auto) Baso % (Auto) Lymph # (Auto) [place] # (Auto) Eos # (Auto) Baso # (Auto) Abs Immat Gran (auto) Absolute Neuts (auto) Absolute Nucleated RBC Nucleated RBC % (auto) Hold Purple Top PT INR VBG pH VBG pCO2 VBG pO2 VBG HCO3 VBG O2 Saturation VBG Base Excess Anion Gap Estim Creat Clear Calc Estimated GFR POC Glucose 84 145 H Random Glucose Calcium Magnesium Total Bilirubin AST ALT Alkaline Phosphatase Troponin I High Sens 35.7 H NT-Pro-B Natriuret Pep Total Protein Albumin Hold Green Top COVID-19 (CAROLYN) COVID-19 Clin Com Influenza Type A (NEIL) Influenza Type B (NEIL) Influenza A & B Note Assessment and Plan (1) Acute exacerbation of CHF (congestive heart failure): Status: Acute Plan Patient is a 79-year-old female with a past medical history significant for COPD with O2 dependence, CKD 3B, hypertension, hyperlipidemia, hypothyroid, HFpEF (last echo 05/10/2025), chronic indwelling Moyer, class 2 obesity and insulin- dependent diabetes, who presented to the ED due to shortness of breath and chest pressure for the last 2 days with suspected CHF exacerbation. acute CHF exacerbation with mild respiratory acidosis on VBG - IV lasix 40mg BID - cardiology consult input noted - CT confirmed CHF elevated trops, flat, EKG nonischemic - tele - cardiology consult COPD with O2 dependence, no acute exacerbation - duonebs PRN chronic anemia, stable CKD 3B, at baseline HTN - continue home meds HLD - continue home meds hypothyroid - levothyroxine class 2 obesity - weight loss encouraged IDDM - SSI - lantus 16U QHS, reduced dose full code VTE prophy: lovenox med rec completed Pt with acute CHF exacerbation, requiring admission for at least 2 midnight stay for IV diuresis and monitoring. Quality Stroke Does the patient have a stroke diagnosis?: No VTE Prior VTE?: No VTE Risk Level:: Medical - moderate - high VTE Device Contraindication: Treatment Not Indicated VTE Drug Contraindication: N/A - Med Ordered
[2025-07-19 18:17] LABS: Glucose, Whole Blood 165 mg/dL (60-115)
--- NOTE | 2025-07-19 19:48 | PC.NURSE ---
Pt here w/ c/o increasing sob x 2 days. Pt is O2 dep at baseline and has chronic bilat LE edema. Pt was also noted to be slightly acidotic per VBG as well. Pt is currently on bipap and tolerating well. Pt also has a chronic indwelling catheter that was changed last night secondary to the previous one not looking as though it had been changed for a while. Bipap comes off or meals and is placed on 4L NC. Pt becomes very sob w/ most movement but is able to roll in the bed.
[2025-07-19 20:47] LABS: Glucose, Whole Blood 257 mg/dL (60-115)
[2025-07-19] MEDS: Insulin Glargine,Hum.rec.anlog 100 UNIT/ML 10 ML VIAL 16 UNIT SUBCUT (20:53)
[2025-07-19 22:04] LABS: Glucose, Whole Blood 274 mg/dL (60-115)
[2025-07-19] MEDS: Flu Vacc TS2025-26(6mo up)/PF 0.5 ML SYRINGE IM (23:06)
[2025-07-20] VITALS (15 sets, daily range): BP systolic 120–156; BP diastolic 56–86; PULSE 58–88; RESP 16–39; TEMP 36.1–36.7; O2SAT 93–98
[2025-07-20 01:11] LABS: Glucose, Whole Blood 148 mg/dL (60-115)
[2025-07-20] MEDS: Albuterol/Iprat 2.5/0.5MG 3 ML AMPUL.NEB INHALE ×3 (06:52→19:03)
[2025-07-20 07:16] LABS: Glucose, Whole Blood 107 mg/dL (60-115)
[2025-07-20 07:21] LABS: MANUAL DIFF FLAG NO
[2025-07-20 07:25] LABS: Hematocrit 26.1 % (37.0-47.0); Hemoglobin 7.6 g/dl (12.0-16.0); Imm Gran Abs Auto 0.33 X10*3/uL (0.00-0.03); Imm Gran Pct Auto 4.0 % (0.0-0.4); Lymphocytes Absolute Auto 0.7 X10*3/uL (1.2-4.9); Mean Corpuscular HGB Conc 29.1 g/dl (31.0-35.0); Mean Corpuscular Hemoglobin 27.7 pg (27.0-33.0); Mean Corpuscular Volume 95.3 fL (80.0-98.0); NRBC Abs Auto 0.000 X10*3/uL (0.0-0.012); NRBC Pct Auto 0.0 /100WBC (0.0-0.2); Platelet Count 363 X10*3/uL (160-400); Red Blood Count 2.74 X10*6/uL (4.20-5.50); White Blood Count 8.2 X10*3/uL (4.8-10.8)
[2025-07-20 07:29] LABS: Hematocrit 26.1 % (37.0-47.0); Hemoglobin 7.5 g/dl (12.0-16.0); Mean Corpuscular HGB Conc 28.7 g/dl (31.0-35.0); Mean Corpuscular Hemoglobin 27.3 pg (27.0-33.0); Mean Corpuscular Volume 94.9 fL (80.0-98.0); NRBC Abs Auto 0.000 X10*3/uL (0.0-0.012); NRBC Pct Auto 0.0 /100WBC (0.0-0.2); Platelet Count 381 X10*3/uL (160-400); Red Blood Count 2.75 X10*6/uL (4.20-5.50); White Blood Count 8.4 X10*3/uL (4.8-10.8)
[2025-07-20 07:43] LABS: Alanine Aminotransferase < 6 U/L (0-31); Albumin Level 2.9 g/dL (3.5-5.0); Alkaline Phosphatase 96 U/L (39-117); Anion Gap 13 (12-20); Aspartate Amino Transferase 19 U/L (5-31); Blood Urea Nitrogen 50 mg/dL (9-16); Calcium 8.1 mg/dL (8.4-10.2); Carbon Dioxide 25 mmol/L (22-29); Chloride 110 mmol/L (96-108); Creatinine Clr Calc Pharmacy 28.8; Estimated Glomerular Filt Rate 26; Potassium 5.2 mmol/L (3.3-5.1); Sodium 143 mmol/L (135-145); Total Protein 5.9 g/dL (6.5-8.0)
[2025-07-20] MEDS: Ferrous Sulfate 324 MG TABLET.DR PO (09:04)
[2025-07-20] MEDS: Furosemide 40 MG/4 ML VIAL IVPUSH ×2 (09:04→17:03)
[2025-07-20] MEDS: 0.9 % Sodium Chloride Flush 3 ML SYRINGE IVFLUSH ×3 (09:08→21:54)
--- NOTE | 2025-07-20 10:44 | P.PNIM_ITS ---
Subjective Subjective Date of Service: 07/20/25 Interval History: Seen/examined, on bipap since last night but reports feeling better this morning Physical Exam 2 Exam: Exam: see h and p from this morning Vital Signs: Vital Signs: Last Vital Signs Temp 97.5 F 07/20/25 07:18 Pulse 64 07/20/25 07:18 Resp 39 H 07/20/25 09:30 BP 133/57 L 07/20/25 07:18 Pulse Ox 98 07/20/25 07:18 O2 Del Method CPAP 07/20/25 07:18 O2 Flow Rate 13 07/20/25 03:27 FiO2 28 07/20/25 03:27 Oxygen Flow Rate 4 07/19/25 03:18 BMI result Body Mass Index 35.9 Const: Other: General: AO X 3, no acute distress Resp: CTA bilateral CVS: S1,S2,RRR GI: +BS, NT, no distention Skin: No rash Neuro: motor grossly intact Psych: appropriate affect Objective Data Active Medications Acetaminophen (Acetaminophen 325 Mg Tablet) 650 mg PO Q6H PRN PRN Reason: Pain, Mild 1-3,fever,headache Acetaminophen (Acetaminophen 325 Mg Tablet) 650 mg PO Q4H PRN PRN Reason: Fever Or Pain Albuterol/Ipratropium (Albuterol/Iprat 2.5/0.5mg 3 Ml Ampul.Neb) 3 ml INHALE Q4H PRN PRN Reason: Shortness of Breath/Wheezing Last Admin: 07/20/25 06:52 Dose: 3 ml Documented By: OH Amlodipine Besylate (Amlodipine Besylate 5 Mg Tablet) 5 mg PO DAILY [facility]; Protocol Last Admin: 07/20/25 09:03 Dose: 5 mg Documented By: SONAL Atorvastatin Calcium (Atorvastatin Calcium 40 Mg Tablet) 40 mg PO BEDTIME [facility] Last Admin: 07/19/25 20:50 Dose: 40 mg Documented By: EMBER Benzonatate (Benzonatate 100 Mg Capsule) 100 mg PO TID PRN PRN Reason: Cough Calcium Carbonate (Calcium Carbonate 750 Mg Tab.Chew) 750 mg PO Q4H PRN PRN Reason: Heartburn Dextrose (Dextrose 50 % 25 Gm/50 Ml Syringe) 25 gm IVPUSH Q15M PRN; Protocol PRN Reason: per Hypoglycemia Standing Ord. Empagliflozin (Empagliflozin 10 Mg Tablet) 10 mg PO DAILY [facility] Last Admin: 07/20/25 09:04 Dose: 10 mg Documented By: SONAL Enoxaparin Sodium (Enoxaparin Sodium 30 Mg/0.3 Ml Syringe) 30 mg SUBCUT Q24H [facility] Ferrous Sulfate (Ferrous Sulfate 324 Mg Tablet.) 324 mg PO DAILY [facility] Last Admin: 07/20/25 09:04 Dose: 324 mg Documented By: SONAL Furosemide (Furosemide 40 Mg/4 Ml Vial) 40 mg IVPUSH BID@0900,1800 [facility]; Protocol Last Admin: 07/20/25 09:04 Dose: 40 mg Documented By: SONAL Gemfibrozil (Gemfibrozil 600 Mg Tablet) 600 mg PO BID [facility] Last Admin: 07/20/25 09:04 Dose: 600 mg Documented By: SONAL Glucose (Glucose Gel 15 Gm Gel..Gram.) 15 gm PO Q15M PRN; Protocol PRN Reason: per Hypoglycemia Standing Ord. Insulin Glargine (Insulin Glargine,Hum.Rec.Anlog 100 Unit/Ml 10 Ml Vial) 16 unit SUBCUT BEDTIME [facility] Last Admin: 07/19/25 20:53 Dose: 16 unit Documented By: EMBER Insulin Human Lispro (Insulin Lispro 100 Unit/Ml 3 Ml Vial) 0 unit SUBCUT QIDACHS [facility]; Protocol Last Admin: 07/20/25 09:08 Dose: Not Given Documented By: SONAL Non-Admin Reason: No Insulin Coverage Lactic Acid (Ammonium Lactate 12 % Lotion 226 Gm Bottle) 1 appl TOPICAL BID [facility]; Protocol Last Admin: 07/19/25 22:14 Dose: Not Given Documented By: JOHN Non-Admin Reason: Med Not Available Levothyroxine Sodium (Levothyroxine Sodium 200 Mcg Tablet) 200 mcg PO DAILY@0600 [facility] Last Admin: 07/20/25 05:57 Dose: 200 mcg Documented By: JOHN Lorazepam (Lorazepam 0.5 Mg Tablet) 0.5 mg PO BID [facility] Last Admin: 07/20/25 09:03 Dose: 0.5 mg Documented By: SONAL Lorazepam (Lorazepam 1 Mg Tablet) 1 mg PO Q6H PRN PRN Reason: Anxiety Magnesium Hydroxide (Milk Of Magnesia 30 Ml Oral.Susp) 30 ml PO DAILY PRN PRN Reason: Constipation Melatonin (Melatonin 3 Mg Tablet) 6 mg PO BEDTIME PRN PRN Reason: Insomnia Last Admin: 07/19/25 22:13 Dose: 6 mg Documented By: JOHN Sodium Chloride (0.9 % Sodium Chloride Flush 3 Ml Syringe) 3 ml IVFLUSH QSHIFT [facility] Last Admin: 07/20/25 09:08 Dose: 3 ml Documented By: SONAL Labs 07/20/25 06:56 07/20/25 06:56 Labs: Laboratory Results - last 24 hr 07/19/25 07/19/25 07/19/25 12:45 18:14 20:38 MCV MCH MCHC RDW Plt Count MPV Immature Gran % (Auto) Neut % (Auto) Lymph % (Auto) [place] % (Auto) Eos % (Auto) Baso % (Auto) Lymph # (Auto) [place] # (Auto) Eos # (Auto) Baso # (Auto) Abs Immat Gran (auto) Absolute Neuts (auto) Absolute Nucleated RBC Nucleated RBC % (auto) Anion Gap Estim Creat Clear Calc Estimated GFR POC Glucose 145 H 165 H 257 H Random Glucose Calcium Total Bilirubin AST ALT Alkaline Phosphatase Total Protein Albumin 07/19/25 07/20/25 07/20/25 21:58 01:06 06:56 MCV 95.3 MCH MCHC RDW Plt Count MPV Immature Gran % (Auto) Neut % (Auto) Lymph % (Auto) [place] % (Auto) Eos % (Auto) Baso % (Auto) Lymph # (Auto) [place] # (Auto) Eos # (Auto) Baso # (Auto) Abs Immat Gran (auto) Absolute Neuts (auto) Absolute Nucleated RBC Nucleated RBC % (auto) Anion Gap Estim Creat Clear Calc Estimated GFR POC Glucose 274 H 148 H Random Glucose Calcium Total Bilirubin AST ALT Alkaline Phosphatase Total Protein Albumin 07/20/25 07/20/25 07/20/25 06:56 06:56 06:56 MCV 94.9 MCH 27.7 27.3 MCHC 29.1 L 28.7 L RDW 16.5 H Plt Count MPV Immature Gran % (Auto) Neut % (Auto) Lymph % (Auto) [place] % (Auto) Eos % (Auto) Baso % (Auto) Lymph # (Auto) [place] # (Auto) Eos # (Auto) Baso # (Auto) Abs Immat Gran (auto) Absolute Neuts (auto) Absolute Nucleated RBC Nucleated RBC % (auto) Anion Gap Estim Creat Clear Calc Estimated GFR POC Glucose Random Glucose Calcium Total Bilirubin AST ALT Alkaline Phosphatase Total Protein Albumin 07/20/25 07/20/25 07/20/25 06:56 06:56 06:56 MCV MCH MCHC RDW 16.6 H Plt Count 363 381 MPV 9.0 L 9.1 L Immature Gran % (Auto) 4.0 H Neut % (Auto) 74.7 H Lymph % (Auto) 9.0 L [place] % (Auto) 8.4 Eos % (Auto) 2.9 Baso % (Auto) 1.0 Lymph # (Auto) 0.7 L [place] # (Auto) 0.7 Eos # (Auto) 0.2 Baso # (Auto) 0.1 Abs Immat Gran (auto) 0.33 H Absolute Neuts (auto) 6.2 Absolute Nucleated RBC 0.000 Nucleated RBC % (auto) Anion Gap Estim Creat Clear Calc Estimated GFR POC Glucose Random Glucose Calcium Total Bilirubin AST ALT Alkaline Phosphatase Total Protein Albumin 07/20/25 07/20/25 07/20/25 06:56 06:56 07:03 MCV MCH MCHC RDW Plt Count MPV Immature Gran % (Auto) Neut % (Auto) Lymph % (Auto) [place] % (Auto) Eos % (Auto) Baso % (Auto) Lymph # (Auto) [place] # (Auto) Eos # (Auto) Baso # (Auto) Abs Immat Gran (auto) Absolute Neuts (auto) Absolute Nucleated RBC 0.000 Nucleated RBC % (auto) 0.0 0.0 Anion Gap 13 Estim Creat Clear Calc 28.8 Estimated GFR 26 POC Glucose 107 Random Glucose 106 Calcium 8.1 L Total Bilirubin 0.1 AST 19 ALT < 6 Alkaline Phosphatase 96 Total Protein 5.9 L Albumin 2.9 L Assessment and Plan (1) Acute exacerbation of CHF (congestive heart failure): Status: Acute Plan Patient is a 79-year-old female with a past medical history significant for COPD with O2 dependence, CKD 3B, hypertension, hyperlipidemia, hypothyroid, HFpEF (last echo 05/10/2025), chronic indwelling Moyer, class 2 obesity and insulin- dependent diabetes, who presented to the ED due to shortness of breath and chest pressure for the last 2 days with suspected CHF exacerbation. acute CHF exacerbation with mild respiratory acidosis on VBG -negative 900 - IV lasix 40mg BID for 1 more day - cardiology consult input noted - CT confirmed CHF Acute on chronic respiratory failure d/t chf, and COPD -continue bipap, respiratory treatment -will need sleep study at home elevated trops, flat, EKG nonischemic - tele - cardiology consult COPD with O2 dependence, no acute exacerbation - duonebs PRN chronic anemia, stable CKD 3B, at baseline HTN - continue home meds HLD - continue home meds hypothyroid - levothyroxine class 2 obesity - weight loss encouraged IDDM - SSI - lantus 16U QHS, reduced dose full code VTE prophy: lovenox Pt with acute CHF exacerbation, requiring admission for at least 2 midnight stay for IV diuresis and monitoring. Quality Stroke Does the patient have a stroke diagnosis?: No VTE Prior VTE?: No VTE Risk Level:: Medical - moderate - high VTE Device Contraindication: Treatment Not Indicated VTE Drug Contraindication: N/A - Med Ordered
[2025-07-20 11:12] LABS: Glucose, Whole Blood 182 mg/dL (60-115)
--- NOTE | 2025-07-20 13:26 | PM.PNCARD ---
Subjective Subjective Date of Service: 07/20/25 Interval history: Seen and examined at bedside. On noninvasive positive pressure ventilation. She is saying that she is sleepy. She is saying breathing is okay as long as she is wearing the CPAP but the moment she takes it off she gets out of breath. Echocardiography from April reviewed showing hyperdynamic function at 70%, severe mitral annular calcification, [id number] tricuspid valve regurgitation and moderate pulmonary hypertension. Physical Exam Vital Signs: Last Vital Signs Temp 97.1 F 07/20/25 11:11 Pulse 88 07/20/25 11:11 Resp 20 07/20/25 11:11 BP 156/70 H 07/20/25 11:11 Pulse Ox 94 07/20/25 11:11 O2 Del Method CPAP 07/20/25 11:11 O2 Flow Rate 13 07/20/25 03:27 FiO2 28 07/20/25 03:27 Oxygen Flow Rate 4 07/19/25 03:18 BMI result Body Mass Index 35.9 GENERAL APPEARANCE: On noninvasive positive pressure ventilation. NECK: no carotid bruit, + jugular venous distention. SKIN: no suspicious lesions, warm and dry. HEART: no murmurs, regular rate and rhythm. LUNGS: clear to auscultation anteriorly. ABDOMEN: soft, nontender. EXTREMITIES: + edema. Erythema bilaterally. PERIPHERAL PULSES: equal. NEUROLOGIC: No gross deficits, AAO X 3 Objective Labs and Meds 07/20/25 06:56 07/20/25 06:56 Lab results: Laboratory Results - last 24 hr 07/19/25 07/19/25 07/19/25 18:14 20:38 21:58 WBC RBC Hgb Hct MCV MCH MCHC RDW Plt Count MPV Immature Gran % (Auto) Neut % (Auto) Lymph % (Auto) [place] % (Auto) Eos % (Auto) Baso % (Auto) Lymph # (Auto) [place] # (Auto) Eos # (Auto) Baso # (Auto) Abs Immat Gran (auto) Absolute Neuts (auto) Absolute Nucleated RBC Nucleated RBC % (auto) Sodium Potassium Chloride Carbon Dioxide Anion Gap BUN Creatinine Estim Creat Clear Calc Estimated GFR POC Glucose 165 H 257 H 274 H Random Glucose Calcium Total Bilirubin AST ALT Alkaline Phosphatase Total Protein Albumin 07/20/25 07/20/25 07/20/25 01:06 06:56 06:56 WBC 8.2 8.4 RBC 2.74 L Hgb Hct MCV MCH MCHC RDW Plt Count MPV Immature Gran % (Auto) Neut % (Auto) Lymph % (Auto) [place] % (Auto) Eos % (Auto) Baso % (Auto) Lymph # (Auto) [place] # (Auto) Eos # (Auto) Baso # (Auto) Abs Immat Gran (auto) Absolute Neuts (auto) Absolute Nucleated RBC Nucleated RBC % (auto) Sodium Potassium Chloride Carbon Dioxide Anion Gap BUN Creatinine Estim Creat Clear Calc Estimated GFR POC Glucose 148 H Random Glucose Calcium Total Bilirubin AST ALT Alkaline Phosphatase Total Protein Albumin 07/20/25 07/20/25 07/20/25 06:56 06:56 06:56 WBC RBC 2.75 L Hgb 7.6 L 7.5 L Hct 26.1 L 26.1 L MCV 95.3 MCH MCHC RDW Plt Count MPV Immature Gran % (Auto) Neut % (Auto) Lymph % (Auto) [place] % (Auto) Eos % (Auto) Baso % (Auto) Lymph # (Auto) [place] # (Auto) Eos # (Auto) Baso # (Auto) Abs Immat Gran (auto) Absolute Neuts (auto) Absolute Nucleated RBC Nucleated RBC % (auto) Sodium Potassium Chloride Carbon Dioxide Anion Gap BUN Creatinine Estim Creat Clear Calc Estimated GFR POC Glucose Random Glucose Calcium Total Bilirubin AST ALT Alkaline Phosphatase Total Protein Albumin 07/20/25 07/20/25 07/20/25 06:56 06:56 06:56 WBC RBC Hgb Hct MCV 94.9 MCH 27.7 27.3 MCHC 29.1 L 28.7 L RDW 16.5 H Plt Count MPV Immature Gran % (Auto) Neut % (Auto) Lymph % (Auto) [place] % (Auto) Eos % (Auto) Baso % (Auto) Lymph # (Auto) [place] # (Auto) Eos # (Auto) Baso # (Auto) Abs Immat Gran (auto) Absolute Neuts (auto) Absolute Nucleated RBC Nucleated RBC % (auto) Sodium Potassium Chloride Carbon Dioxide Anion Gap BUN Creatinine Estim Creat Clear Calc Estimated GFR POC Glucose Random Glucose Calcium Total Bilirubin AST ALT Alkaline Phosphatase Total Protein Albumin 07/20/25 07/20/25 07/20/25 06:56 06:56 06:56 WBC RBC Hgb Hct MCV MCH MCHC RDW 16.6 H Plt Count 363 381 MPV 9.0 L 9.1 L Immature Gran % (Auto) 4.0 H Neut % (Auto) 74.7 H Lymph % (Auto) 9.0 L [place] % (Auto) 8.4 Eos % (Auto) 2.9 Baso % (Auto) 1.0 Lymph # (Auto) 0.7 L [place] # (Auto) 0.7 Eos # (Auto) 0.2 Baso # (Auto) 0.1 Abs Immat Gran (auto) 0.33 H Absolute Neuts (auto) 6.2 Absolute Nucleated RBC 0.000 Nucleated RBC % (auto) Sodium Potassium Chloride Carbon Dioxide Anion Gap BUN Creatinine Estim Creat Clear Calc Estimated GFR POC Glucose Random Glucose Calcium Total Bilirubin AST ALT Alkaline Phosphatase Total Protein Albumin 07/20/25 07/20/25 07/20/25 06:56 06:56 07:03 WBC RBC Hgb Hct MCV MCH MCHC RDW Plt Count MPV Immature Gran % (Auto) Neut % (Auto) Lymph % (Auto) [place] % (Auto) Eos % (Auto) Baso % (Auto) Lymph # (Auto) [place] # (Auto) Eos # (Auto) Baso # (Auto) Abs Immat Gran (auto) Absolute Neuts (auto) Absolute Nucleated RBC 0.000 Nucleated RBC % (auto) 0.0 0.0 Sodium 143 Potassium 5.2 H Chloride 110 H Carbon Dioxide 25 Anion Gap 13 BUN 50 H Creatinine 1.89 H Estim Creat Clear Calc 28.8 Estimated GFR 26 POC Glucose 107 Random Glucose 106 Calcium 8.1 L Total Bilirubin 0.1 AST 19 ALT < 6 Alkaline Phosphatase 96 Total Protein 5.9 L Albumin 2.9 L 07/20/25 11:04 WBC RBC Hgb Hct MCV MCH MCHC RDW Plt Count MPV Immature Gran % (Auto) Neut % (Auto) Lymph % (Auto) [place] % (Auto) Eos % (Auto) Baso % (Auto) Lymph # (Auto) [place] # (Auto) Eos # (Auto) Baso # (Auto) Abs Immat Gran (auto) Absolute Neuts (auto) Absolute Nucleated RBC Nucleated RBC % (auto) Sodium Potassium Chloride Carbon Dioxide Anion Gap BUN Creatinine Estim Creat Clear Calc Estimated GFR POC Glucose 182 H Random Glucose Calcium Total Bilirubin AST ALT Alkaline Phosphatase Total Protein Albumin Progress Note: A&P Assessment and plan (1) CHF (congestive heart failure): Status: Acute Plan Pleasant 79 year female with diastolic heart failure presenting with acute decompensated congestive heart failure. Clinically she continues to be volume overloaded. I's and O's are not monitored accurately currently. Titrate amlodipine to 5 mg twice a day. Aim for negative balance of 2 L in 24 hours. If she is not diuresing well then we will consider increasing the Lasix to 80 mg IV b.i.d.. Monitor potassium and electrolytes closely. Not a candidate for adding spironolactone due to hyperkalemia currently. Continue Jardiance. We will follow along with you. Thank you for allowing me to participate in the care of your patient. Please feel free to contact me if you have any questions. Time Spent With Patient Time: Total time managing care of this patient today ____ minutes. Progress Note: Quality Stroke Does the patient have a stroke diagnosis?: No Procedures Date of Service Date of Service: 07/20/25
--- NOTE | 2025-07-20 13:56 | PC.NURSE ---
c/o I can't breath oxygen saturation 93 % on 2 l via NC , received breathing treatment , back on the bipap ,
--- NOTE | 2025-07-20 14:03 | PC.RT ---
pt will qualify for a NIV bipap at home due to her chronic copd and her hypercapnia. Dr. Mujica aware. Pt agrees to wear Bipap and home with oxygen. She has been on bipap frequenlty here since admissions. She was turned today and was so therefore she requested go on. Whenever pt is tuurned or gets up she is requesting the Bipap. Cardi consult done and pt still needs further diurese per Dr. Day.
--- NOTE | 2025-07-20 14:26 | PM.EVENT ---
Event Note Date of Service: 07/20/25 Event Note: We have discussed the need for Astral non-invasive ventilation with Radhika Vaca, who has chronic respiratory failure due to COPD. Given the severity and life-threatening nature of this condition, the Astral non-invasive ventilator is being prescribed today. This decision is supported by the patient?s elevated pCO of 71 on the most recent blood gas. The use of the Astral device is expected to help reduce hospital readmissions, decrease the length of hospital stays, and improve the patient?s overall respiratory status Time Spent With Patient Time: Total time managing care of this patient today ____ minutes.
--- NOTE | 2025-07-20 16:17 | HO.WOUND ---
Wound Consult: Initial 79yr old?female admitted to [facility] on 07/19/25 06:42 - See progress notes and H&P for detailed history.? Wound consult placed for Bilateral Lower Legs, breast skin folds and sacrum.? Patient on Bipap at this time - face assessed Mepilex in place for prevention - skin intact and pink but remains blanchable throughout. Bridge of Nose Sacrum / coccyx and Bilateral Ischium Etiology: ??Chronic MASD - IAD Present on Admission Wound Bed: dark maroon light purple intact tissue blanchable at this time Drainage / Odor: none Edges: ? irregular Goals of Treatment: ? Off load pressure and protect from friction moisture and pressure Of note the sacrum coccyx has previously noted stage 3 pressure injury per chart review it is important to know Tensil strength is only 80% after full thickness tissue damage (Stage 3 PI). This puts the patient at risk for reopening pressure injury - all preventative measures should be employed to prevent reopening of Pressure injury. Left Breast noted for Fungal Dermatitis - intact red moist mirroed edges - no odor noted - Interdry in place. Bilateral Lower Legs History of Venous Dermatitis currently red pink intact tissue - left israel with small stable scab - no topical interventions needed at this time. Right Heel Left Heel Bilateral heels assessed for intact blanchable redness - no pressure injury noted at this time - recommend prevention measure such as foam application and off loading pressure from heels. Recommendations: 1. Turn and Reposition every 2 hours and as needed for patient comfort.? Use pillows or wedges to support off loading positions. 2. Off Load all bony prominences with use of pillows and heel boots if needed.? Apply Preventative foams where needed. ? 3. Monitor for incontinence and moisture control, use barrier creams when needed for prevention and treatment. 4. Provide adequate and supplemental nutrition.? 5. Order low air loss mattress. 6. When applicable maintain blood glucose levels per Providers order. Sacrum / Coccyx - Off Load Pressure with Q2 hr turns and use of pillows - Cleanse with PH balance spray or wipes, pat dry. ?Apply thin layer of Triad to wound bed - only pat and dab no scrub and rub when soiling occurs. Reapply thin layer PRN after each episode of incontinence. If patient is continent or purewick is working well may consider foam dressing in place of barrier cream. Bilateral Ischium - Off Load Pressure with Q2 hr turns and use of pillows - Cleanse with PH balance spray or wipes, pat dry. ?Apply thin layer of barrier cream to affected area.? Apply twice daily and Reapply thin layer PRN after each episode of incontinence. Breast Skin Folds - Routine cleansing dry well. Tuck Interdry AG Sheet into skin fold to wick and translocate moisture away from skin fold.? Be sure to leave at least 2 inch of fabric exposed outside of skin fold.? Change after 5 days or when soiled Bilateral Heels? - Elevate heels off of bed surface with pillows.? Float heels off of pillows.? Apply skin prep allow to dry.? Apply heel foam dressings, peel back and assess Q shift and change every 5-7 days and PRN. Bridge of Nose - Apply skin prep allow to dry. Apply foam dressing such as Mepilex to bridge of nose prior to Bipap use. Re-consult wound care Nurse for wound deterioration or wound changes.
[2025-07-20 16:49] LABS: Glucose, Whole Blood 177 mg/dL (60-115)
[2025-07-20 20:24] LABS: Glucose, Whole Blood 211 mg/dL (60-115)
[2025-07-20] MEDS: Insulin Glargine,Hum.rec.anlog 100 UNIT/ML 10 ML VIAL 16 UNIT SUBCUT (21:53)
[2025-07-21] VITALS (13 sets, daily range): BP systolic 134–145; BP diastolic 58–66; PULSE 61–76; RESP 16–27; TEMP 36.1–36.4; O2SAT 91–99
[2025-07-21] MEDS: Albuterol/Iprat 2.5/0.5MG 3 ML AMPUL.NEB INHALE ×4 (01:43→19:46)
[2025-07-21 07:39] LABS: Glucose, Whole Blood 47 mg/dL (60-115)
[2025-07-21 07:39] LABS: Glucose, Whole Blood 85 mg/dL (60-115)
[2025-07-21] MEDS: 0.9 % Sodium Chloride Flush 3 ML SYRINGE IVFLUSH ×3 (08:28→20:13)
[2025-07-21] MEDS: Furosemide 40 MG/4 ML VIAL IVPUSH ×2 (09:50→16:42)
[2025-07-21] MEDS: Ferrous Sulfate 324 MG TABLET.DR PO (09:52)
--- NOTE | 2025-07-21 10:28 | P.PNIM_ITS ---
Subjective Subjective Date of Service: 07/21/25 Interval History: She's doing much better today, more awake and alert and less anxious Physical Exam 2 Exam: Exam: see h and p from this morning Vital Signs: Vital Signs: Last Vital Signs Temp 97.3 F 07/21/25 07:01 Pulse 69 07/21/25 08:12 Resp 18 07/21/25 08:12 BP 145/66 H 07/21/25 07:01 Pulse Ox 96 07/21/25 07:01 O2 Del Method CPAP 07/21/25 07:01 O2 Flow Rate 2 07/20/25 17:59 FiO2 28 07/20/25 03:27 Oxygen Flow Rate 4 07/19/25 03:18 BMI result Body Mass Index 35.9 Const: Other: General: AO X 3, no acute distress Resp: CTA bilateral CVS: S1,S2,RRR GI: +BS, NT, no distention Skin: No rash Neuro: motor grossly intact Psych: appropriate affect Objective Data Active Medications Acetaminophen (Acetaminophen 325 Mg Tablet) 650 mg PO Q6H PRN PRN Reason: Pain, Mild 1-3,fever,headache Acetaminophen (Acetaminophen 325 Mg Tablet) 650 mg PO Q4H PRN PRN Reason: Fever Or Pain Albuterol/Ipratropium (Albuterol/Iprat 2.5/0.5mg 3 Ml Ampul.Neb) 3 ml INHALE Q4H PRN PRN Reason: Shortness of Breath/Wheezing Last Admin: 07/21/25 08:09 Dose: 3 ml Documented By: ALBARO Amlodipine Besylate (Amlodipine Besylate 5 Mg Tablet) 5 mg PO BIDWM GEO; Protocol Last Admin: 07/21/25 09:51 Dose: 5 mg Documented By: CLAUDIA Atorvastatin Calcium (Atorvastatin Calcium 40 Mg Tablet) 40 mg PO BEDTIME GEO Last Admin: 07/20/25 21:52 Dose: 40 mg Documented By: NELDA Benzonatate (Benzonatate 100 Mg Capsule) 100 mg PO TID PRN PRN Reason: Cough Calcium Carbonate (Calcium Carbonate 750 Mg Tab.Chew) 750 mg PO Q4H PRN PRN Reason: Heartburn Dextrose (Dextrose 50 % 25 Gm/50 Ml Syringe) 25 gm IVPUSH Q15M PRN; Protocol PRN Reason: per Hypoglycemia Standing Ord. Empagliflozin (Empagliflozin 10 Mg Tablet) 10 mg PO DAILY [facility] Last Admin: 07/21/25 09:52 Dose: 10 mg Documented By: CLAUDIA Enoxaparin Sodium (Enoxaparin Sodium 30 Mg/0.3 Ml Syringe) 30 mg SUBCUT Q24H [facility] Last Admin: 07/21/25 09:48 Dose: 30 mg Documented By: CLAUDIA Ferrous Sulfate (Ferrous Sulfate 324 Mg Tablet.Dr) 324 mg PO DAILY [facility] Last Admin: 07/21/25 09:52 Dose: 324 mg Documented By: CLAUDIA Furosemide (Furosemide 40 Mg/4 Ml Vial) 40 mg IVPUSH BID@0900,1800 [facility]; Protocol Last Admin: 07/21/25 09:50 Dose: 40 mg Documented By: CLAUDIA Gemfibrozil (Gemfibrozil 600 Mg Tablet) 600 mg PO BID [facility] Last Admin: 07/21/25 09:58 Dose: Not Given Documented By: CLAUDIA Non-Admin Reason: Med Not Available Glucose (Glucose Gel 15 Gm Gel..Gram.) 15 gm PO Q15M PRN; Protocol PRN Reason: per Hypoglycemia Standing Ord. Insulin Glargine (Insulin Glargine,Hum.Rec.Anlog 100 Unit/Ml 10 Ml Vial) 16 unit SUBCUT BEDTIME [facility] Last Admin: 07/20/25 21:53 Dose: 16 unit Documented By: NELDA Insulin Human Lispro (Insulin Lispro 100 Unit/Ml 3 Ml Vial) 0 unit SUBCUT QIDACHS [facility]; Protocol Last Admin: 07/21/25 08:24 Dose: Not Given Documented By: CLAUDIA Non-Admin Reason: No Insulin Coverage Lactic Acid (Ammonium Lactate 12 % Lotion 226 Gm Bottle) 1 appl TOPICAL BID [facility]; Protocol Last Admin: 07/21/25 09:59 Dose: Not Given Documented By: CLAUDIA Non-Admin Reason: Patient Refused Levothyroxine Sodium (Levothyroxine Sodium 200 Mcg Tablet) 200 mcg PO DAILY@0600 [facility] Last Admin: 07/21/25 05:51 Dose: 200 mcg Documented By: NELDA Lorazepam (Lorazepam 0.5 Mg Tablet) 0.5 mg PO BID [facility] Last Admin: 07/21/25 09:52 Dose: 0.5 mg Documented By: CLAUDIA Lorazepam (Lorazepam 1 Mg Tablet) 1 mg PO Q6H PRN PRN Reason: Anxiety Last Admin: 07/21/25 02:28 Dose: 1 mg Documented By: NELDA Magnesium Hydroxide (Milk Of Magnesia 30 Ml Oral.Susp) 30 ml PO DAILY PRN PRN Reason: Constipation Melatonin (Melatonin 3 Mg Tablet) 6 mg PO BEDTIME PRN PRN Reason: Insomnia Last Admin: 07/19/25 22:13 Dose: 6 mg Documented By: JOHN Sodium Chloride (0.9 % Sodium Chloride Flush 3 Ml Syringe) 3 ml IVFLUSH QSHIFT GEO Last Admin: 07/21/25 08:28 Dose: 3 ml Documented By: CLAUDIA Labs 07/20/25 06:56 07/20/25 06:56 Labs: Laboratory Results - last 24 hr 07/20/25 07/20/25 07/20/25 11:04 16:42 20:19 POC Glucose 182 H 177 H 211 H 07/21/25 07/21/25 07:04 07:34 POC Glucose 47 L* 85 Assessment and Plan (1) Acute exacerbation of CHF (congestive heart failure): Status: Acute Plan Patient is a 79-year-old female with a past medical history significant for COPD with O2 dependence, CKD 3B, hypertension, hyperlipidemia, hypothyroid, HFpEF (last echo 05/10/2025), chronic indwelling Moyer, class 2 obesity and insulin- dependent diabetes, who presented to the ED due to shortness of breath and chest pressure for the last 2 days with suspected CHF exacerbation. acute CHF exacerbation with mild respiratory acidosis on VBG -negative 2600 -change to PO Lasix - cardiology consult input noted - CT confirmed CHF Acute on chronic respiratory failure d/t chf, and COPD -continue bipap, respiratory treatment -will need sleep study on outpatient basis for chronic Co2 retention elevated trops, flat, EKG nonischemic - tele - cardiology consult as above COPD with O2 dependence, no acute exacerbation - duonebs PRN chronic anemia, stable CKD 3B, at baseline HTN - continue home meds HLD - continue home meds hypothyroid - levothyroxine class 2 obesity - weight loss encouraged IDDM - SSI - lantus 16U QHS, reduced dose full code VTE prophy: lovenox Pt with acute CHF exacerbation, requiring admission for at least 2 midnight stay for IV diuresis and monitoring. Quality Stroke Does the patient have a stroke diagnosis?: No VTE Prior VTE?: No VTE Risk Level:: Medical - moderate - high VTE Device Contraindication: Treatment Not Indicated VTE Drug Contraindication: N/A - Med Ordered
[2025-07-21 10:58] LABS: Glucose, Whole Blood 216 mg/dL (60-115)
--- NOTE | 2025-07-21 13:26 | MHC.CM.PN ---
Per rounds, pt is not ready to DC, PT eval to be done to help determine DCP. CM to follow for DC needs.
[2025-07-21 16:27] LABS: Glucose, Whole Blood 153 mg/dL (60-115)
[2025-07-21 20:01] LABS: Glucose, Whole Blood 159 mg/dL (60-115)
[2025-07-21] MEDS: Insulin Glargine,Hum.rec.anlog 100 UNIT/ML 10 ML VIAL 16 UNIT SUBCUT (20:12)
[2025-07-21] MEDS: Ammonium Lactate 12 % Lotion 226 GM BOTTLE 1 APPL TOPICAL (20:12)
[2025-07-22] VITALS (9 sets, daily range): BP systolic 121–146; BP diastolic 58–67; PULSE 68–94; RESP 18–33; TEMP 36.1–37.1; O2SAT 91–97
[2025-07-22 00:30] LABS: Glucose, Whole Blood 244 mg/dL (60-115)
[2025-07-22] MEDS: Albuterol/Iprat 2.5/0.5MG 3 ML AMPUL.NEB INHALE ×3 (00:33→20:50)
[2025-07-22 08:00] LABS: Glucose, Whole Blood 152 mg/dL (60-115)
[2025-07-22] MEDS: Ferrous Sulfate 324 MG TABLET.DR PO (08:12)
[2025-07-22] MEDS: Furosemide 40 MG/4 ML VIAL IVPUSH ×2 (08:12→17:44)
[2025-07-22] MEDS: 0.9 % Sodium Chloride Flush 3 ML SYRINGE IVFLUSH ×2 (08:19→17:42)
[2025-07-22] MEDS: Ammonium Lactate 12 % Lotion 226 GM BOTTLE 1 APPL TOPICAL ×2 (08:25→21:12)
--- NOTE | 2025-07-22 09:12 | HO.PM.IMPN ---
Subjective Subjective Date of Service: 07/22/25 Interval History: Seems a bit anxious this morning, otherwise no new changes Physical Exam Exam: Exam: see h and p from this morning Vital Signs: Vital Signs: Last Vital Signs Temp 97.5 F 07/22/25 07:39 Pulse 94 07/22/25 08:29 Resp 20 07/22/25 08:29 BP 138/65 07/22/25 07:39 Pulse Ox 97 07/22/25 07:39 O2 Del Method BiPAP 07/22/25 07:39 O2 Flow Rate 2 07/20/25 17:59 FiO2 28 07/20/25 03:27 Oxygen Flow Rate 4 07/19/25 03:18 BMI result Body Mass Index 35.9 Const: Other: General: AO X 3, no acute distress Resp: CTA bilateral CVS: S1,S2,RRR GI: +BS, NT, no distention Skin: No rash Neuro: motor grossly intact Psych: appropriate affect Objective Data Active Medications Acetaminophen (Acetaminophen 325 Mg Tablet) 650 mg PO Q6H PRN PRN Reason: Pain, Mild 1-3,fever,headache Last Admin: 07/21/25 20:11 Dose: 650 mg Documented By: CLIFFORD Acetaminophen (Acetaminophen 325 Mg Tablet) 650 mg PO Q4H PRN PRN Reason: Fever Or Pain Albuterol/Ipratropium (Albuterol/Iprat 2.5/0.5mg 3 Ml Ampul.Neb) 3 ml INHALE Q4H PRN PRN Reason: Shortness of Breath/Wheezing Last Admin: 07/22/25 08:25 Dose: 3 ml Documented By: KATRINA Amlodipine Besylate (Amlodipine Besylate 5 Mg Tablet) 5 mg PO BIDWM [facility]; Protocol Last Admin: 07/22/25 08:12 Dose: 5 mg Documented By: TATIANNA Atorvastatin Calcium (Atorvastatin Calcium 40 Mg Tablet) 40 mg PO BEDTIME [facility] Last Admin: 07/21/25 20:11 Dose: 40 mg Documented By: CLIFFORD Benzonatate (Benzonatate 100 Mg Capsule) 100 mg PO TID PRN PRN Reason: Cough Calcium Carbonate (Calcium Carbonate 750 Mg Tab.Chew) 750 mg PO Q4H PRN PRN Reason: Heartburn Dextrose (Dextrose 50 % 25 Gm/50 Ml Syringe) 25 gm IVPUSH Q15M PRN; Protocol PRN Reason: per Hypoglycemia Standing Ord. Empagliflozin (Empagliflozin 10 Mg Tablet) 10 mg PO DAILY [facility] Last Admin: 07/22/25 08:12 Dose: 10 mg Documented By: TATIANNA Enoxaparin Sodium (Enoxaparin Sodium 30 Mg/0.3 Ml Syringe) 30 mg SUBCUT Q24H [facility] Last Admin: 07/22/25 08:12 Dose: 30 mg Documented By: TATIANNA Ferrous Sulfate (Ferrous Sulfate 324 Mg Tablet.Dr) 324 mg PO DAILY [facility] Last Admin: 07/22/25 08:12 Dose: 324 mg Documented By: TATIANNA Furosemide (Furosemide 40 Mg/4 Ml Vial) 40 mg IVPUSH BID@0900,1800 [facility]; Protocol Last Admin: 07/22/25 08:12 Dose: 40 mg Documented By: TATIANNA Gemfibrozil (Gemfibrozil 600 Mg Tablet) 600 mg PO BID [facility] Last Admin: 07/22/25 08:12 Dose: 600 mg Documented By: TATIANNA Glucose (Glucose Gel 15 Gm Gel..Gram.) 15 gm PO Q15M PRN; Protocol PRN Reason: per Hypoglycemia Standing Ord. Insulin Glargine (Insulin Glargine,Hum.Rec.Anlog 100 Unit/Ml 10 Ml Vial) 16 unit SUBCUT BEDTIME [facility] Last Admin: 07/21/25 20:12 Dose: 16 unit Documented By: CLIFFORD Insulin Human Lispro (Insulin Lispro 100 Unit/Ml 3 Ml Vial) 0 unit SUBCUT QIDACHS [facility]; Protocol Last Admin: 07/22/25 08:21 Dose: 2 unit Documented By: TATIANNA Lactic Acid (Ammonium Lactate 12 % Lotion 226 Gm Bottle) 1 appl TOPICAL BID [facility]; Protocol Last Admin: 07/22/25 08:25 Dose: 1 appl Documented By: TATIANNA Levothyroxine Sodium (Levothyroxine Sodium 200 Mcg Tablet) 200 mcg PO DAILY@0600 [facility] Last Admin: 07/22/25 05:37 Dose: 200 mcg Documented By: CLIFFORD Lorazepam (Lorazepam 1 Mg Tablet) 1 mg PO Q6H PRN PRN Reason: Anxiety Last Admin: 07/22/25 00:25 Dose: 1 mg Documented By: CLIFFORD Lorazepam (Lorazepam 1 Mg Tablet) 1 mg PO BID [facility] Last Admin: 07/22/25 08:12 Dose: 1 mg Documented By: TATIANNA Magnesium Hydroxide (Milk Of Magnesia 30 Ml Oral.Susp) 30 ml PO DAILY PRN PRN Reason: Constipation Melatonin (Melatonin 3 Mg Tablet) 6 mg PO BEDTIME PRN PRN Reason: Insomnia Last Admin: 07/19/25 22:13 Dose: 6 mg Documented By: JOHN Nystatin (Nystatin Powder 15 Gm Bottle) 1 appl TOPICAL BID [facility]; Protocol Last Admin: 07/22/25 08:25 Dose: 1 appl Documented By: TATIANNA Sodium Chloride (0.9 % Sodium Chloride Flush 3 Ml Syringe) 3 ml IVFLUSH QSHIFT [facility] Last Admin: 07/22/25 08:19 Dose: 3 ml Documented By: TATIANNA Labs 07/20/25 06:56 07/20/25 06:56 Labs: Laboratory Results - last 24 hr 07/21/25 07/21/25 07/21/25 10:54 16:21 19:56 POC Glucose 216 H 153 H 159 H 07/22/25 07/22/25 00:24 07:52 POC Glucose 244 H 152 H Assessment and Plan (1) Acute exacerbation of CHF (congestive heart failure): Status: Acute Plan Patient is a 79-year-old female with a past medical history significant for COPD with O2 dependence, CKD 3B, hypertension, hyperlipidemia, hypothyroid, HFpEF (last echo 05/10/2025), chronic indwelling Moyer, class 2 obesity and insulin-dependent diabetes, who presented to the ED due to shortness of breath and chest pressure for the last 2 days with suspected CHF exacerbation. acute CHF exacerbation with mild respiratory acidosis on VBG -negative 500o -change to PO Lasix - cardiology consult input noted - CT confirmed CHF check bmp Acute on chronic respiratory failure d/t chf, and COPD -continue bipap, respiratory treatment -will need sleep study on outpatient basis for chronic Co2 retention elevated trops, flat, EKG nonischemic - tele - cardiology consult as above COPD with O2 dependence, no acute exacerbation - duonebs PRN chronic anemia, stable CKD 3B, at baseline HTN - continue home meds HLD - continue home meds hypothyroid - levothyroxine anxiety d/o Ativan class 2 obesity - weight loss encouraged IDDM - SSI - lantus 16U QHS, reduced dose full code VTE prophy: lovenox Pt with acute CHF exacerbation, requiring admission for at least 2 midnight stay for IV diuresis and monitoring. Quality Stroke Does the patient have a stroke diagnosis?: No VTE Prior VTE?: No VTE Risk Level:: Medical - moderate - high VTE Device Contraindication: Treatment Not Indicated VTE Drug Contraindication: N/A - Med Ordered
[2025-07-22 10:18] LABS: Anion Gap 16 (12-20); Blood Urea Nitrogen 57 mg/dL (9-16); Calcium 8.2 mg/dL (8.4-10.2); Carbon Dioxide 28 mmol/L (22-29); Chloride 105 mmol/L (96-108); Creatinine Clr Calc Pharmacy 29.5; Estimated Glomerular Filt Rate 26; Potassium 4.7 mmol/L (3.3-5.1); Sodium 144 mmol/L (135-145)
--- NOTE | 2025-07-22 12:08 | P.CDIM_ITS ---
PROVIDER RESPONSE TEXT: To clarify, the appropriate diagnosis supported by the clinical indicators: Diabetes mellitus with hypoglycemia: resolved QUERY TEXT: PHYSICIAN'S DOCUMENTATION REQUEST Date of Query: 07/21/2025 11:23 AM EDT Patient Name: Radhika Vaca Admit Date: 07/19/2025 Dear Christian Mujica MD, A review of the medical record indicates additional documentation may be needed. Please review below and update the documentation accordingly. Clinical Indicators: IDDM SSI POC glucose 47 L Insulin Please clarify the following regarding the lab findings: Diabetes mellitus with hypoglycemia resolved, possible, suspected etc. Other etiology of lab findings Other (explain) Clinically unable to determine (explain) Thank you, Sharda Kinsey, CCS, CDIS Use of terms such as suspected, likely, concern for, or probable (associated with a specific diagnosis that is being evaluated, monitored, or treated as if it exists) are acceptable and can be coded in the inpatient setting, when documented at the time of discharge. Please use your independent medical judgment in providing your response. THIS QUERY IS PART OF THE PERMANENT MEDICAL RECORD
[2025-07-22 13:18] LABS: Glucose, Whole Blood 143 mg/dL (60-115)
--- NOTE | 2025-07-22 16:38 | PM.PNCARD ---
Subjective Subjective Date of Service: 07/22/25 Interval history: Seen and examined at bedside. c/o SOB. Physical Exam Vital Signs: Last Vital Signs Temp 97.0 F 07/22/25 15:32 Pulse 85 07/22/25 15:32 Resp 22 H 07/22/25 15:32 BP 121/58 L 07/22/25 15:32 Pulse Ox 92 07/22/25 15:32 O2 Del Method CPAP 07/22/25 15:32 O2 Flow Rate 2 07/20/25 17:59 FiO2 28 07/20/25 03:27 Oxygen Flow Rate 4 07/19/25 03:18 BMI result Body Mass Index 35.9 GENERAL APPEARANCE: On noninvasive positive pressure ventilation. NECK: no carotid bruit, no jugular venous distention. SKIN: no suspicious lesions, warm and dry. HEART: no murmurs, regular rate and rhythm. LUNGS: clear to auscultation anteriorly. ABDOMEN: soft, nontender. EXTREMITIES: + edema. Erythema bilaterally. PERIPHERAL PULSES: equal. NEUROLOGIC: No gross deficits, AAO X 3 Objective Labs and Meds 07/20/25 06:56 07/22/25 09:30 Lab results: Laboratory Results - last 24 hr 07/21/25 07/22/25 07/22/25 19:56 00:24 07:52 Hold Purple Top Sodium Potassium Chloride Carbon Dioxide Anion Gap BUN Creatinine Estim Creat Clear Calc Estimated GFR POC Glucose 159 H 244 H 152 H Random Glucose Calcium 07/22/25 07/22/25 07/22/25 09:30 09:32 13:14 Hold Purple Top SEE NOTE Sodium 144 Potassium 4.7 Chloride 105 Carbon Dioxide 28 Anion Gap 16 BUN 57 H Creatinine 1.85 H Estim Creat Clear Calc 29.5 Estimated GFR 26 POC Glucose 143 H Random Glucose 175 H Calcium 8.2 L Progress Note: A&P Assessment and plan (1) CHF (congestive heart failure): Status: Acute Plan Pleasant 79 year female with diastolic heart failure presenting with acute decompensated congestive heart failure. Diuresed and overall euvolemic now. Change to PO Lasix. Monitor potassium and electrolytes closely. Not a candidate for adding spironolactone due to hyperkalemia currently. Continue Jardiance. We will follow along with you. Thank you for allowing me to participate in the care of your patient. Please feel free to contact me if you have any questions. Time Spent With Patient Time: Total time managing care of this patient today ____ minutes. Progress Note: Quality Stroke Does the patient have a stroke diagnosis?: No Procedures Date of Service Date of Service: 07/22/25
[2025-07-22 16:48] LABS: Glucose, Whole Blood 248 mg/dL (60-115)
[2025-07-22 20:12] LABS: Glucose, Whole Blood 246 mg/dL (60-115)
[2025-07-22] MEDS: Insulin Glargine,Hum.rec.anlog 100 UNIT/ML 10 ML VIAL 16 UNIT SUBCUT (21:18)
[2025-07-23] VITALS (10 sets, daily range): BP systolic 116–158; BP diastolic 54–68; PULSE 57–82; RESP 18–20; TEMP 36.1–36.6; O2SAT 90–98
[2025-07-23] MEDS: 0.9 % Sodium Chloride Flush 3 ML SYRINGE IVFLUSH ×4 (00:16→20:20)
[2025-07-23] MEDS: Albuterol/Iprat 2.5/0.5MG 3 ML AMPUL.NEB INHALE ×3 (03:53→15:57)
[2025-07-23 04:05] LABS: Glucose, Whole Blood 94 mg/dL (60-115)
--- NOTE | 2025-07-23 06:00 | PC.NURSE ---
Patients francisco leaking around insertion site and not draining into collection bag. Cloudy sediment clogging the tube & attempted to flush catheter with no success. Francisco removed and had brown discharge all around the tip. New 18fr inserted w/ immediate drainage of cloudy urine w/ brown sediment into bag.
[2025-07-23 07:11] LABS: Glucose, Whole Blood 143 mg/dL (60-115)
[2025-07-23] MEDS: Ferrous Sulfate 324 MG TABLET.DR PO (08:36)
[2025-07-23] MEDS: Ammonium Lactate 12 % Lotion 226 GM BOTTLE 1 APPL TOPICAL (08:40)
[2025-07-23] MEDS: Furosemide 40 MG/4 ML VIAL IVPUSH (08:42)
[2025-07-23 08:49] LABS: Hematocrit 29.4 % (37.0-47.0); Hemoglobin 8.5 g/dl (12.0-16.0); Mean Corpuscular HGB Conc 28.9 g/dl (31.0-35.0); Mean Corpuscular Hemoglobin 27.6 pg (27.0-33.0); Mean Corpuscular Volume 95.5 fL (80.0-98.0); NRBC Abs Auto 0.000 X10*3/uL (0.0-0.012); NRBC Pct Auto 0.0 /100WBC (0.0-0.2); Platelet Count 380 X10*3/uL (160-400); Red Blood Count 3.08 X10*6/uL (4.20-5.50); White Blood Count 8.0 X10*3/uL (4.8-10.8)
[2025-07-23 09:06] LABS: Anion Gap 17 (12-20); Blood Urea Nitrogen 59 mg/dL (9-16); Calcium 8.4 mg/dL (8.4-10.2); Carbon Dioxide 27 mmol/L (22-29); Chloride 106 mmol/L (96-108); Creatinine Clr Calc Pharmacy 30.1; Estimated Glomerular Filt Rate 27; Potassium 4.5 mmol/L (3.3-5.1); Sodium 145 mmol/L (135-145)
--- NOTE | 2025-07-23 10:19 | P.PNIM_ITS ---
Subjective Subjective Date of Service: 07/23/25 Interval History: Anxious again, no respiratory distress Physical Exam 2 Exam: Exam: see h and p from this morning Vital Signs: Vital Signs: Last Vital Signs Temp 97.0 F 07/23/25 07:51 Pulse 67 07/23/25 07:51 Resp 20 07/23/25 07:51 BP 133/55 L 07/23/25 07:51 Pulse Ox 90 L 07/23/25 07:51 O2 Del Method CPAP 07/23/25 07:51 O2 Flow Rate 2 07/23/25 07:51 FiO2 28 07/20/25 03:27 Oxygen Flow Rate 4 07/19/25 03:18 BMI result Body Mass Index 35.9 Const: Other: General: AO X 3, no acute distress Resp: CTA bilateral CVS: S1,S2,RRR GI: +BS, NT, no distention Skin: No rash Neuro: motor grossly intact Psych: appropriate affect Objective Data Active Medications Acetaminophen (Acetaminophen 325 Mg Tablet) 650 mg PO Q6H PRN PRN Reason: Pain, Mild 1-3,fever,headache Last Admin: 07/23/25 08:43 Dose: 650 mg Documented By: SMITHA Acetaminophen (Acetaminophen 325 Mg Tablet) 650 mg PO Q4H PRN PRN Reason: Fever Or Pain Albuterol/Ipratropium (Albuterol/Iprat 2.5/0.5mg 3 Ml Ampul.Neb) 3 ml INHALE Q4H PRN PRN Reason: Shortness of Breath/Wheezing Last Admin: 07/23/25 03:53 Dose: 3 ml Documented By: VARSHA Amlodipine Besylate (Amlodipine Besylate 5 Mg Tablet) 5 mg PO BIDWM [facility]; Protocol Last Admin: 07/23/25 08:37 Dose: 5 mg Documented By: SMITHA Atorvastatin Calcium (Atorvastatin Calcium 40 Mg Tablet) 40 mg PO BEDTIME [facility] Last Admin: 07/22/25 21:11 Dose: 40 mg Documented By: ROBBIE Benzonatate (Benzonatate 100 Mg Capsule) 100 mg PO TID PRN PRN Reason: Cough Calcium Carbonate (Calcium Carbonate 750 Mg Tab.Chew) 750 mg PO Q4H PRN PRN Reason: Heartburn Dextrose (Dextrose 50 % 25 Gm/50 Ml Syringe) 25 gm IVPUSH Q15M PRN; Protocol PRN Reason: per Hypoglycemia Standing Ord. Empagliflozin (Empagliflozin 10 Mg Tablet) 10 mg PO DAILY [facility] Last Admin: 07/23/25 08:35 Dose: 10 mg Documented By: SMITHA Enoxaparin Sodium (Enoxaparin Sodium 30 Mg/0.3 Ml Syringe) 30 mg SUBCUT Q24H [facility] Last Admin: 07/23/25 08:39 Dose: 30 mg Documented By: SMITHA Ferrous Sulfate (Ferrous Sulfate 324 Mg Tablet.) 324 mg PO DAILY [facility] Last Admin: 07/23/25 08:36 Dose: 324 mg Documented By: SMITHA Furosemide (Furosemide 40 Mg/4 Ml Vial) 40 mg IVPUSH BID@0900,1800 [facility]; Protocol Last Admin: 07/23/25 08:42 Dose: 40 mg Documented By: SMITHA Gemfibrozil (Gemfibrozil 600 Mg Tablet) 600 mg PO BID [facility] Last Admin: 07/23/25 08:36 Dose: 600 mg Documented By: SMITHA Glucose (Glucose Gel 15 Gm Gel..Gram.) 15 gm PO Q15M PRN; Protocol PRN Reason: per Hypoglycemia Standing Ord. Insulin Glargine (Insulin Glargine,Hum.Rec.Anlog 100 Unit/Ml 10 Ml Vial) 16 unit SUBCUT BEDTIME [facility] Last Admin: 07/22/25 21:18 Dose: 16 unit Documented By: ROBBIE Insulin Human Lispro (Insulin Lispro 100 Unit/Ml 3 Ml Vial) 0 unit SUBCUT QIDACHS [facility]; Protocol Last Admin: 07/23/25 07:13 Dose: Not Given Documented By: SMITHA Non-Admin Reason: No Insulin Coverage Lactic Acid (Ammonium Lactate 12 % Lotion 226 Gm Bottle) 1 appl TOPICAL BID [facility]; Protocol Last Admin: 07/23/25 08:40 Dose: 1 appl Documented By: SMITHA Levothyroxine Sodium (Levothyroxine Sodium 200 Mcg Tablet) 200 mcg PO DAILY@0600 [facility] Last Admin: 07/23/25 06:22 Dose: 200 mcg Documented By: ROBBIE Lorazepam (Lorazepam 1 Mg Tablet) 1 mg PO Q6H PRN PRN Reason: Anxiety Last Admin: 07/23/25 06:22 Dose: 1 mg Documented By: ROBBIE Lorazepam (Lorazepam 1 Mg Tablet) 1 mg PO BID [facility] Last Admin: 07/23/25 08:35 Dose: 1 mg Documented By: SMITHA Magnesium Hydroxide (Milk Of Magnesia 30 Ml Oral.Susp) 30 ml PO DAILY PRN PRN Reason: Constipation Melatonin (Melatonin 3 Mg Tablet) 6 mg PO BEDTIME PRN PRN Reason: Insomnia Last Admin: 07/19/25 22:13 Dose: 6 mg Documented By: JOHN Nystatin (Nystatin Powder 15 Gm Bottle) 1 appl TOPICAL BID [facility]; Protocol Last Admin: 07/23/25 08:44 Dose: 1 appl Documented By: SMITHA Sodium Chloride (0.9 % Sodium Chloride Flush 3 Ml Syringe) 3 ml IVFLUSH QSHIFT [facility] Last Admin: 07/23/25 08:41 Dose: 3 ml Documented By: SMITHA Labs 07/23/25 08:28 07/23/25 08:28 Labs: Laboratory Results - last 24 hr 07/22/25 07/22/25 07/22/25 09:30 13:14 16:43 MCV MCH MCHC RDW Plt Count MPV Absolute Nucleated RBC Nucleated RBC % (auto) Anion Gap 16 Estim Creat Clear Calc 29.5 Estimated GFR 26 POC Glucose 143 H 248 H Random Glucose 175 H Calcium 8.2 L 07/22/25 07/23/25 07/23/25 19:56 03:56 07:07 MCV MCH MCHC RDW Plt Count MPV Absolute Nucleated RBC Nucleated RBC % (auto) Anion Gap Estim Creat Clear Calc Estimated GFR POC Glucose 246 H 94 143 H Random Glucose Calcium 07/23/25 08:28 MCV 95.5 MCH 27.6 MCHC 28.9 L RDW 16.5 H Plt Count 380 MPV 8.7 L Absolute Nucleated RBC 0.000 Nucleated RBC % (auto) 0.0 Anion Gap 17 Estim Creat Clear Calc 30.1 Estimated GFR 27 POC Glucose Random Glucose 146 H Calcium 8.4 Assessment and Plan (1) Acute exacerbation of CHF (congestive heart failure): Status: Acute Plan Patient is a 79-year-old female with a past medical history significant for COPD with O2 dependence, CKD 3B, hypertension, hyperlipidemia, hypothyroid, HFpEF (last echo 05/10/2025), chronic indwelling Moyer, class 2 obesity and insulin- dependent diabetes, who presented to the ED due to shortness of breath and chest pressure for the last 2 days with suspected CHF exacerbation. acute CHF exacerbation with mild respiratory acidosis on VBG -negative 6.4 liters -change to PO Lasix - cardiology consult input noted - CT confirmed CHF -follow bmp Acute on chronic respiratory failure d/t chf, and COPD -continue bipap, respiratory treatment -will need sleep study on outpatient basis for chronic Co2 retention elevated trops, flat, EKG nonischemic - tele - cardiology consult as above COPD with O2 dependence, no acute exacerbation - duonebs PRN -prednisone 20 mg daily chronic anemia, stable CKD 3B, at baseline HTN - continue home meds HLD - continue home meds hypothyroid - levothyroxine anxiety d/o Ativan class 2 obesity - weight loss encouraged IDDM - SSI - lantus 16U QHS, reduced dose full code VTE prophy: lovenox Pt with acute CHF exacerbation, requiring admission for at least 2 midnight stay for IV diuresis and monitoring. Quality Stroke Does the patient have a stroke diagnosis?: No VTE Prior VTE?: No VTE Risk Level:: Medical - moderate - high VTE Device Contraindication: Treatment Not Indicated VTE Drug Contraindication: N/A - Med Ordered
[2025-07-23 11:15] LABS: Glucose, Whole Blood 242 mg/dL (60-115)
[2025-07-23 16:09] LABS: Glucose, Whole Blood 162 mg/dL (60-115)
[2025-07-23 20:34] LABS: Glucose, Whole Blood 348 mg/dL (60-115)
[2025-07-23] MEDS: Insulin Glargine,Hum.rec.anlog 100 UNIT/ML 10 ML VIAL 16 UNIT SUBCUT (20:42)
[2025-07-24] VITALS (13 sets, daily range): BP systolic 115–155; BP diastolic 53–76; PULSE 61–88; RESP 18–32; TEMP 36.2–37.1; O2SAT 94–100
[2025-07-24] MEDS: Albuterol/Iprat 2.5/0.5MG 3 ML AMPUL.NEB INHALE ×5 (00:35→20:24)
--- NOTE | 2025-07-24 05:55 | PC.NURSE ---
Pt on bed alert and oriented, forgetful, anxious most of the time, yelling out for needs and demands even though instructed to use callbell, very needy, sched Lorazepam given, on Bipap all night, pt requested for neb after midnight, RT came to give neb. Pt noted with bright red urine thru francisco tube early am, with yellow urine on the urine bag, Dr. Ho was notified.
[2025-07-24 07:28] LABS: Glucose, Whole Blood 159 mg/dL (60-115)
[2025-07-24] MEDS: Ferrous Sulfate 324 MG TABLET.DR PO (07:52)
[2025-07-24] MEDS: 0.9 % Sodium Chloride Flush 3 ML SYRINGE IVFLUSH ×3 (07:53→20:10)
[2025-07-24] MEDS: Ammonium Lactate 12 % Lotion 226 GM BOTTLE 1 APPL TOPICAL ×2 (07:58→20:10)
--- NOTE | 2025-07-24 08:19 | P.PNIM_ITS ---
Subjective Subjective Date of Service: 07/24/25 Interval History: Slept well, no respiratory distress Physical Exam 2 Exam: Exam: see h and p from this morning Vital Signs: Vital Signs: Last Vital Signs Temp 97.1 F 07/24/25 07:23 Pulse 62 07/24/25 07:23 Resp 18 07/24/25 07:23 BP 127/60 07/24/25 07:23 Pulse Ox 100 07/24/25 07:23 O2 Del Method CPAP 07/24/25 07:23 O2 Flow Rate 2 07/23/25 19:43 FiO2 28 07/20/25 03:27 Oxygen Flow Rate 4 07/19/25 03:18 BMI result Body Mass Index 35.9 Const: Other: General: AO X 3, no acute distress Resp: CTA bilateral CVS: S1,S2,RRR GI: +BS, NT, no distention Skin: No rash, chronic ulcer on feet Neuro: motor grossly intact Psych: appropriate affect Objective Data Active Medications Acetaminophen (Acetaminophen 325 Mg Tablet) 650 mg PO Q6H PRN PRN Reason: Pain, Mild 1-3,fever,headache Last Admin: 07/23/25 08:43 Dose: 650 mg Documented By: SMITHA Acetaminophen (Acetaminophen 325 Mg Tablet) 650 mg PO Q4H PRN PRN Reason: Fever Or Pain Last Admin: 07/23/25 20:41 Dose: 650 mg Documented By: MO Albuterol/Ipratropium (Albuterol/Iprat 2.5/0.5mg 3 Ml Ampul.Neb) 3 ml INHALE Q4H PRN PRN Reason: Shortness of Breath/Wheezing Last Admin: 07/24/25 06:44 Dose: 3 ml Documented By: VARSHA Amlodipine Besylate (Amlodipine Besylate 5 Mg Tablet) 5 mg PO BIDWM [facility]; Protocol Last Admin: 07/24/25 07:53 Dose: 5 mg Documented By: CAITLIN Atorvastatin Calcium (Atorvastatin Calcium 40 Mg Tablet) 40 mg PO BEDTIME [facility] Last Admin: 07/23/25 20:20 Dose: 40 mg Documented By: MO Benzonatate (Benzonatate 100 Mg Capsule) 100 mg PO TID PRN PRN Reason: Cough Calcium Carbonate (Calcium Carbonate 750 Mg Tab.Chew) 750 mg PO Q4H PRN PRN Reason: Heartburn Dextrose (Dextrose 50 % 25 Gm/50 Ml Syringe) 25 gm IVPUSH Q15M PRN; Protocol PRN Reason: per Hypoglycemia Standing Ord. Empagliflozin (Empagliflozin 10 Mg Tablet) 10 mg PO DAILY [facility] Last Admin: 07/24/25 07:52 Dose: 10 mg Documented By: CAITLIN Enoxaparin Sodium (Enoxaparin Sodium 30 Mg/0.3 Ml Syringe) 30 mg SUBCUT Q24H [facility] Last Admin: 07/24/25 07:53 Dose: 30 mg Documented By: CAITLIN Ferrous Sulfate (Ferrous Sulfate 324 Mg Tablet.) 324 mg PO DAILY [facility] Last Admin: 07/24/25 07:52 Dose: 324 mg Documented By: CAITLIN Furosemide (Furosemide 40 Mg Tablet) 40 mg PO BID@0900,1800 [facility]; Protocol Last Admin: 07/24/25 07:52 Dose: 40 mg Documented By: CAITLIN Gemfibrozil (Gemfibrozil 600 Mg Tablet) 600 mg PO BID [facility] Last Admin: 07/24/25 07:53 Dose: 600 mg Documented By: CAITLIN Glucose (Glucose Gel 15 Gm Gel..Gram.) 15 gm PO Q15M PRN; Protocol PRN Reason: per Hypoglycemia Standing Ord. Insulin Glargine (Insulin Glargine,Hum.Rec.Anlog 100 Unit/Ml 10 Ml Vial) 16 unit SUBCUT BEDTIME [facility] Last Admin: 07/23/25 20:42 Dose: 16 unit Documented By: MO Insulin Human Lispro (Insulin Lispro 100 Unit/Ml 3 Ml Vial) 0 unit SUBCUT QIDACHS [facility]; Protocol Last Admin: 07/24/25 07:51 Dose: 2 unit Documented By: CAITLIN Lactic Acid (Ammonium Lactate 12 % Lotion 226 Gm Bottle) 1 appl TOPICAL BID [facility]; Protocol Last Admin: 07/24/25 07:58 Dose: 1 appl Documented By: CAITLIN Levothyroxine Sodium (Levothyroxine Sodium 200 Mcg Tablet) 200 mcg PO DAILY@0600 [facility] Last Admin: 07/24/25 05:43 Dose: 200 mcg Documented By: MO Lorazepam (Lorazepam 1 Mg Tablet) 1 mg PO Q6H PRN PRN Reason: Anxiety Last Admin: 07/24/25 01:59 Dose: 1 mg Documented By: MO Lorazepam (Lorazepam 1 Mg Tablet) 1 mg PO BID [facility] Last Admin: 07/24/25 07:53 Dose: 1 mg Documented By: CAITLIN Magnesium Hydroxide (Milk Of Magnesia 30 Ml Oral.Susp) 30 ml PO DAILY PRN PRN Reason: Constipation Melatonin (Melatonin 3 Mg Tablet) 6 mg PO BEDTIME PRN PRN Reason: Insomnia Last Admin: 07/19/25 22:13 Dose: 6 mg Documented By: JOHN Nystatin (Nystatin Powder 15 Gm Bottle) 1 appl TOPICAL BID [facility]; Protocol Last Admin: 07/24/25 07:58 Dose: 1 appl Documented By: CAITLIN Prednisone (Prednisone 20 Mg Tablet) 20 mg PO DAILY [facility] Last Admin: 07/24/25 07:53 Dose: 20 mg Documented By: CAITLIN Sodium Chloride (0.9 % Sodium Chloride Flush 3 Ml Syringe) 3 ml IVFLUSH QSHIFT [facility] Last Admin: 07/24/25 07:53 Dose: 3 ml Documented By: CAITLIN Labs 07/23/25 08:28 07/23/25 08:28 Labs: Laboratory Results - last 24 hr 07/23/25 07/23/25 07/23/25 08:28 11:10 16:05 MCV 95.5 MCH 27.6 MCHC 28.9 L RDW 16.5 H Plt Count 380 MPV 8.7 L Absolute Nucleated RBC 0.000 Nucleated RBC % (auto) 0.0 Anion Gap 17 Estim Creat Clear Calc 30.1 Estimated GFR 27 POC Glucose 242 H 162 H Random Glucose 146 H Calcium 8.4 07/23/25 07/24/25 20:30 07:21 MCV MCH MCHC RDW Plt Count MPV Absolute Nucleated RBC Nucleated RBC % (auto) Anion Gap Estim Creat Clear Calc Estimated GFR POC Glucose 348 H 159 H Random Glucose Calcium Assessment and Plan (1) Acute exacerbation of CHF (congestive heart failure): Status: Acute Plan Patient is a 79-year-old female with a past medical history significant for COPD with O2 dependence, CKD 3B, hypertension, hyperlipidemia, hypothyroid, HFpEF (last echo 05/10/2025), chronic indwelling Moyer, class 2 obesity and insulin- dependent diabetes, who presented to the ED due to shortness of breath and chest pressure for the last 2 days with suspected CHF exacerbation. acute CHF exacerbation with mild respiratory acidosis -negative 8.2 -transitioned to PO lasix on 07/23 - cardiology consult input noted - CT confirmed CHF -follow bmp Acute on chronic respiratory failure d/t chf, and COPD -continue bipap, respiratory treatment -will need sleep study on outpatient basis for chronic Co2 retention elevated trops, flat, EKG nonischemic - tele - cardiology consult as above COPD with O2 dependence, no acute exacerbation - duonebs PRN -prednisone 20 mg daily chronic anemia, stable CKD 3B, at baseline HTN - continue home meds HLD - continue home meds hypothyroid - levothyroxine anxiety d/o Ativan class 2 obesity - weight loss encouraged IDDM - SSI - lantus 16U QHS, reduced dose full code VTE prophy: lovenox Patient is seriously decondition and will benefit from short-term rehab upon discharge, Physical therapy recommends STR Quality Stroke Does the patient have a stroke diagnosis?: No VTE Prior VTE?: No VTE Risk Level:: Medical - moderate - high VTE Device Contraindication: Treatment Not Indicated VTE Drug Contraindication: N/A - Med Ordered
[2025-07-24 09:34] LABS: Anion Gap 17 (12-20); Blood Urea Nitrogen 64 mg/dL (9-16); Calcium 7.9 mg/dL (8.4-10.2); Carbon Dioxide 28 mmol/L (22-29); Chloride 102 mmol/L (96-108); Creatinine Clr Calc Pharmacy 27.5; Estimated Glomerular Filt Rate 24; Potassium 4.2 mmol/L (3.3-5.1); Sodium 143 mmol/L (135-145)
[2025-07-24 09:42] LABS: NT Pro B Type Natriuretic Pept 5145.5 pg/mL (<300)
[2025-07-24 11:18] LABS: Glucose, Whole Blood 235 mg/dL (60-115)
--- NOTE | 2025-07-24 15:29 | MHC.CM.PN ---
per rounds physical therapy is receommending str referrals made
[2025-07-24 16:18] LABS: Glucose, Whole Blood 341 mg/dL (60-115)
[2025-07-24 20:03] LABS: Glucose, Whole Blood 350 mg/dL (60-115)
[2025-07-24] MEDS: Insulin Glargine,Hum.rec.anlog 100 UNIT/ML 10 ML VIAL 16 UNIT SUBCUT (20:04)
[2025-07-25] VITALS (7 sets, daily range): BP systolic 118–152; BP diastolic 54–67; PULSE 62–85; RESP 18–30; TEMP 36.2–36.9; O2SAT 92–98
[2025-07-25] MEDS: Albuterol/Iprat 2.5/0.5MG 3 ML AMPUL.NEB INHALE ×3 (00:12→12:34)
[2025-07-25 07:36] LABS: Glucose, Whole Blood 154 mg/dL (60-115)
[2025-07-25] MEDS: 0.9 % Sodium Chloride Flush 3 ML SYRINGE IVFLUSH ×2 (07:45→16:54)
[2025-07-25] MEDS: Ferrous Sulfate 324 MG TABLET.DR PO (07:54)
[2025-07-25] MEDS: Ammonium Lactate 12 % Lotion 226 GM BOTTLE 1 APPL TOPICAL (07:57)
--- NOTE | 2025-07-25 11:08 | PM.DS ---
DS: Providers Provider Date of Service: 07/25/25 Date of admission: 07/19/25 06:42 Date of discharge: 07/25/25 Primary care physician: Neida Soto MD Consults: 07/19/25 06:44 Consult to Cardiology Routine Consulting Provider: [facility] Reason for consultation: CHF 07/20/25 11:12 Consult to Wound Care Routine Reason for consultation: under maria l breast redness , coccyx , maria l heels DS: Diagnosis Discharge Diagnosis (1) Acute exacerbation of CHF (congestive heart failure): Status: Acute DS: Summary Hospital Course Hospital Course: admission hpi Chief Complaint: SOB Patient is a 79-year-old female with a past medical history significant for COPD with O2 dependence, CKD 3B, hypertension, hyperlipidemia, hypothyroid, HFpEF (last echo 05/10/2025), chronic indwelling Moyer, class 2 obesity and insulin-dependent diabetes, who presented to the ED due to shortness of breath and chest pressure for the last 2 days. The patient reports his shortness of breath we will occur in the middle of the night. At baseline she uses 2 L of oxygen felt she needed to increase to 4 L. patient was saturating at 98% when EMS arrived on 4 L. In the ED chest x-ray shows right upper lung infiltrates versus consolidation, chest CT recommended in ordered. Bilateral lower extremity edema and crackles in the lungs, given 40 mg IV Lasix. Patient currently on CPAP. Troponins flat and EKG nonischemic. BNP elevated at 7068.7. Hospital course 79-year-old female with a history of COPD (O2 dependent), CKD 3B, hypertension, hyperlipidemia, hypothyroidism, HFpEF, chronic indwelling Moyer, class 2 obesity, and insulin-dependent diabetes, who presented with shortness of breath and chest pressure for two days, concerning for CHF exacerbation. 1. Acute CHF Exacerbation with Mild Respiratory Acidosis: The patient was admitted for acute on chronic heart failure exacerbation, confirmed by CT. She was initially managed with IV diuretics and transitioned to oral Lasix on 07/23. Cardiology was consulted. Her net fluid balance was negative 8.2 L. BMP was monitored throughout hospitalization. 2. Acute on Chronic Respiratory Failure (CHF, COPD): She experienced acute on chronic respiratory failure attributed to CHF and underlying COPD. She was managed with BiPAP and respiratory treatments. Outpatient sleep study is recommended for chronic CO2 retention. 3. Elevated Troponins, Non-Ischemic EKG: Troponin levels were elevated but EKG remained non-ischemic. She was monitored on telemetry. Cardiology was involved in her care. 4. COPD with O2 Dependence: No acute COPD exacerbation during admission. She continued on duonebs as needed and prednisone 20 mg x 3 day 5. Chronic Anemia: Remained stable during hospitalization. 6. CKD 3B: Renal function remained at baseline. 7. Hypertension and Hyperlipidemia: Home medications were continued. 8. Hypothyroidism: Continued on levothyroxine. 9. Anxiety Disorder: Managed with Ativan as needed. 10. Class 2 Obesity: Weight loss was encouraged. 11. Insulin-Dependent Diabetes Mellitus: Managed with sliding scale insulin and Lantus 16 units QHS (dose reduced during admission). Discharge Condition: Stable, at baseline mental status, hemodynamically stable, and saturating well on home oxygen. Follow-Up and Recommendations: Outpatient sleep study for chronic CO2 retention Cardiology follow-up as arranged Monitor BMP and renal function Continue weight loss efforts Primary care follow-up within 1 week Continue all home medications as listed above Time Attestation Discharge Coordination Time (in mins): 45 Quality: Safe Use of Opioids Does Pt have an Active Cancer Diagnosis on the Problem List?: No Quality: Stroke Does the patient have a stroke diagnosis?: No Physical Exam Vital Signs: Vital Signs: Last Vital Signs Temp 97.6 F 07/25/25 07:25 Pulse 83 07/25/25 07:25 Resp 18 07/25/25 07:25 BP 118/54 L 07/25/25 07:25 Pulse Ox 97 07/25/25 07:25 O2 Del Method CPAP 07/25/25 07:25 O2 Flow Rate 2.0 07/25/25 07:25 FiO2 28 07/20/25 03:27 Oxygen Flow Rate 4 07/19/25 03:18 BMI result Body Mass Index 35.9 DS: Data Data Completed and Pending Completed studies during hospitalization [Text1]: Procedures Assistance with Respiratory Ventilation, Less than 24 Consecutive Hours, Continuous Positive Airway Pressure (04/03/25) Drainage of Left Pleural Cavity, Percutaneous Approach (04/25/25) Insertion of Endotracheal Airway into Trachea, Via Natural or Artificial Opening (04/25/25) Insertion of Infusion Device into Superior Vena Cava, Percutaneous Approach (11/10/21) Performance of Urinary Filtration, Intermittent, Less than 6 Hours Per Day (11/10/21) Respiratory Ventilation, 24-96 Consecutive Hours (04/25/25) Transfusion of Nonautologous Red Blood Cells into Peripheral Vein, Percutaneous Approach (04/03/25) Labs on day of discharge: Laboratory Results - last 24 hr 07/24/25 07/24/25 07/24/25 11:14 16:14 20:00 POC Glucose 235 H 341 H 350 H* 07/25/25 07:30 POC Glucose 154 H Discharge Plan Discharge Anticipated Discharge Date/Time: 07/25/25 11:10 Patient Disposition: Xfer SNF Discharge Diagnosis: Acute on chronic respiratory failure, CHF exacerbation Referrals: [facility] [Other] - 1 Week Neida Mirza MD [Primary Care Provider, Internal Medicine] - 1 Week Discharge Medications: Continued (DME) Lift chair See Rx Instructions .Route .MEDSUPPLY Qty: 1 0RF Rx Instructions: As directed (DME) compression stockings 40 mmHg knee high See Rx Instructions .Route .MEDSUPPLY Qty: 1 0RF Rx Instructions: As directed albuterol sulfate [Ventolin HFA] 90 mcg/actuation HFA aerosol inhaler 2 puff inhalation Q6H PRN (Reason: Shortness Of Breath Or Wheezing) 30 Days Qty: 6.7 1RF (DME) hospital bed See Rx Instructions .Route .MEDSUPPLY Qty: 1 0RF Rx Instructions: As directed albuterol sulfate 2.5 mg /3 mL (0.083 %) solution for nebulization 2.5 mg inhalation Q6H PRN (Reason: shortness of breath or wheezing) 30 Days Qty: 90 6RF insulin degludec [Tresiba FlexTouch U-100] 100 unit/mL (3 mL) insulin pen 25 unit subcut BEDTIME 90 Days Qty: 22.5 3RF (DME) Accu-Chek Odilia Plus test strp Strip See Rx Instructions .Route Qty: 100 1RF Rx Instructions: use it TID (DME) Accu-Chek Guide test strips Strip See Rx Instructions .Route Qty: 100 3RF Rx Instructions: check sugar three times a day Jardiance 10 mg tablet 10 mg PO DAILY furosemide 40 mg Tablet 40 mg PO BID@0900,1800 Qty: 1 0RF Protocol: Hold for SBP< HOLD for SBP < : 90 ferrous sulfate 324 mg (65 mg iron) Tablet,Delayed Release (Dr/Ec) 324 mg PO DAILY Qty: 1 0RF insulin lispro [Humalog U-100 Insulin] 100 unit/mL Solution 1 sliding scale dose SUBCUT TIDAC Protocol: Insulin Correction Scale Less than or equal to 110 ---- Give (units): 0 111 to 150 Give (units): 0 151 to 200 Give (units): 0 201 to 250 Give (units): 2 251 to 300 Give (units): 4 301 to 350 Give (units): 6 Greater than 350 Give (units): 8 Call MD if Blood Glucose > : 350 acetaminophen 325 mg Tablet 650 mg PO Q4H PRN (Reason: Fever Or Pain) lorazepam [Ativan] 0.5 mg tablet 0.5 mg PO BID Qty: 15 0RF lorazepam [Ativan] 0.5 mg tablet 1 mg PO Q6H PRN (Reason: Anxiety) Qty: 15 0RF atorvastatin 40 mg tablet 40 mg PO BEDTIME 90 Days Qty: 90 3RF gemfibrozil 600 mg tablet 600 mg PO BID Qty: 180 1RF (DME) insulin syringe-needle U-100 0.5 mL 31 gauge x 5/16 syringe See Rx Instructions .Route Qty: 100 3RF Rx Instructions: Use 1 needle once a day (DME) lancets [Accu-Chek Softclix Lancets] [facility] See Rx Instructions .Route Qty: 100 3RF Rx Instructions: Use 1 lancet once a day levothyroxine 200 mcg tablet 200 mcg PO DAILY@0600 90 Days Qty: 90 0RF (DME) pen needle, diabetic [1st Tier Unifine Pentips] 31 gauge x 5/16 needle See Rx Instructions .Route Qty: 100 4RF Rx Instructions: Use 1 pen needle once a day amlodipine 5 mg tablet 5 mg PO DAILY Qty: 90 2RF ammonium lactate 12 % lotion 1 appl topical BID Qty: 400 3RF Discharge Orders: Discharge Order (Routine); Ordered 07/25/25 Ordered By: Christian Mujica Diet: Diabetic diet Activity on Discharge: As tolerated Stand Alone Forms: Patient Portal Discharge page Print Language: [place] Care Plan Goals: Recovery from hospitalization from heart failure exacerbation with acute on chronic respiratory failure. Health Concerns: Chronic respiratory failure, CHF exacerbation, anxiety Plan of Treatment: Continue present care BiPAP at night FIO2 28, IPAP 12, EPAP 6 Assessment: see above
[2025-07-25 11:28] LABS: Glucose, Whole Blood 176 mg/dL (60-115)
--- NOTE | 2025-07-25 13:03 | MHC.CM.PN ---
pt being dcdd [facility] today at 2:30
[2025-07-25 16:33] LABS: Glucose, Whole Blood 252 mg/dL (60-115)
== END 2025-07-25 18:25 | disposition skilled nursing facility (03) | DRG 291 ==
LOC: HO.ED 03:42 → HO.EDOVER 06:45 → HO.IMC 19:43 → HO.S3 07-22 09:03
PROVIDERS: Hospitalist; Admitting Provider Physician Assistant; Emergency Provider Emergency Medicine; PCP Internal Medicine; Visit Provider Internal Medicine
DX: I13.0 Hypertensive heart and chronic kidney disease with heart failure and stage 1 through stage 4 chronic kidney disease, or unspecified chronic kidney disease (principal); I50.33 Acute on chronic diastolic (congestive) heart failure; J96.21 Acute and chronic respiratory failure with hypoxia; E11.649 Type 2 diabetes mellitus with hypoglycemia without coma; E11.22 Type 2 diabetes mellitus with diabetic chronic kidney disease; J44.9 Chronic obstructive pulmonary disease, unspecified; E03.9 Hypothyroidism, unspecified; E78.5 Hyperlipidemia, unspecified; F41.9 Anxiety disorder, unspecified; E66.812 Obesity, class 2; D63.1 Anemia in chronic kidney disease; N18.32 Chronic kidney disease, stage 3b; Z68.36 Body mass index [BMI] 36.0-36.9, adult; Z71.3 Dietary counseling and surveillance; Z99.81 Dependence on supplemental oxygen; Z20.822 Contact with and (suspected) exposure to COVID-19; Z79.4 Long term (current) use of insulin; Z79.890 Hormone replacement therapy; Z79.899 Other long term (current) drug therapy
CPT/HCPCS: 36415; 71045; 71250; 80048; 80053; 82803; 82947; 83735; 83880; 84484; 85025; 85027; 85610; 87502; 87635; 90656; 93005; 94640; 94660; 94799; 97161; 99285; J1650; J1938; J3360

== ENCOUNTER → 2025-07-19 03:21 | Outpatient (BNV) | payer MEDICARE, MEDICAID, SELFPAY | PROVIDERS: Emergency Provider Emergency Medicine; PCP Internal Medicine; Visit Provider Radiology Diagnostic Radiology | DX: J43.2 Centrilobular emphysema (principal); J90 Pleural effusion, not elsewhere classified; J98.11 Atelectasis; I51.7 Cardiomegaly; I28.8 Other diseases of pulmonary vessels; J18.0 Bronchopneumonia, unspecified organism | CPT/HCPCS: 71250 ==

== ENCOUNTER → 2025-07-19 06:42 | Outpatient (BNV) | payer MEDICARE, MEDICAID, SELFPAY | PROVIDERS: Admitting Provider Physician Assistant; Emergency Provider Emergency Medicine; PCP Internal Medicine; Visit Provider Internal Medicine Cardiovascular Disease | DX: I50.32 Chronic diastolic (congestive) heart failure (principal) | CPT/HCPCS: 93010; 99233 ==

== ENCOUNTER → 2025-07-19 06:42 | Outpatient (BNV) | payer MEDICARE, MEDICAID, SELFPAY | PROVIDERS: Admitting Provider Physician Assistant; Emergency Provider Emergency Medicine; PCP Internal Medicine; Visit Provider Internal Medicine | DX: I50.9 Heart failure, unspecified (principal) | CPT/HCPCS: 99223; 99232; 99499 ==

== ENCOUNTER 2025-08-23 15:44 | Inpatient (IN) | payer MEDICARE, SELFPAY ==
[2025-08-23] VITALS (14 sets, daily range): BP systolic 98–142; BP diastolic 34–89; PULSE 57–66; RESP 14–24; TEMP 36.3–36.7; O2SAT 80–98; BMI 37.8
--- NOTE | ~2025-08-23 | XR_ITS ---
EXAMINATION: XR CHEST CLINICAL INFORMATION: worsening SOB COMPARISON: August 23, 2025 TECHNIQUE: 2 views of the chest were obtained. FINDINGS: Prominence of the interstitial markings, bilaterally. Blunting of the posterior) angles, left greater than the right side. Heart silhouette size is prominent, unchanged. No pneumothorax. Multilevel spondylosis. Patient's large body habitus/obesity. XR/XR chest 2V IMPRESSION: Pulmonary edema and bilateral, left greater than right pleural effusions. Electronically signed by: Jorge Blancas MD 08/30/2025 10:31 AM [facility]
--- NOTE | ~2025-08-23 | US_ITS ---
EXAMINATION: US RETROPERITONEAL LIMITED (RENAL ONLY) CLINICAL INFORMATION: MARJORIE. COMPARISON: May 03, 2025. TECHNIQUE: Real-time ultrasound kidneys using grayscale technique. FINDINGS: RIGHT KIDNEY: 12 x 6 x 6 cm (SAG x AP x TRV). Normal echotexture. Renal cortical thinning. No hydronephrosis. There is a 2.1 cm exophytic anechoic lesion without septations or nodular components in the lower pole.. LEFT KIDNEY: 12 x 4 x 4 cm (SAG x AP x TRV). Normal echotexture. Renal cortical thinning. No hydronephrosis. No gross solid or cystic lesion. US/US venous duplex LE BI IMPRESSION: No hydronephrosis. 2.1 cm cyst, right kidney.. EXAMINATION: US TRIPLEX LOWER EXTREMITY, BILATERAL CLINICAL INFORMATION: Edema and pain, lower extremities. COMPARISON: None available. TECHNIQUE: Color-flow triplex imaging with spectral analysis and compression Doppler were performed on the bilateral lower extremities. FINDINGS: Respiratory variation, normal compression and augmented flow are demonstrated in the interrogated common femoral vein, superficial femoral vein, profunda femoral vein, popliteal vein and midcalf peroneal and posterior tibial venous segments, both lower extremities. There is no Umana's cyst. IMPRESSION: No acute deep venous thrombosis interrogated veins of both lower extremities. Negative for DVT Electronically signed by: Jorge Blancas MD 08/24/2025 06:49 AM EDT
--- NOTE | ~2025-08-23 | US_ITS ---
EXAMINATION: US RETROPERITONEAL LIMITED (RENAL ONLY) CLINICAL INFORMATION: MARJORIE. COMPARISON: May 03, 2025. TECHNIQUE: Real-time ultrasound kidneys using grayscale technique. FINDINGS: RIGHT KIDNEY: 12 x 6 x 6 cm (SAG x AP x TRV). Normal echotexture. Renal cortical thinning. No hydronephrosis. There is a 2.1 cm exophytic anechoic lesion without septations or nodular components in the lower pole.. LEFT KIDNEY: 12 x 4 x 4 cm (SAG x AP x TRV). Normal echotexture. Renal cortical thinning. No hydronephrosis. No gross solid or cystic lesion. US/US renal BI IMPRESSION: No hydronephrosis. 2.1 cm cyst, right kidney.. EXAMINATION: US TRIPLEX LOWER EXTREMITY, BILATERAL CLINICAL INFORMATION: Edema and pain, lower extremities. COMPARISON: None available. TECHNIQUE: Color-flow triplex imaging with spectral analysis and compression Doppler were performed on the bilateral lower extremities. FINDINGS: Respiratory variation, normal compression and augmented flow are demonstrated in the interrogated common femoral vein, superficial femoral vein, profunda femoral vein, popliteal vein and midcalf peroneal and posterior tibial venous segments, both lower extremities. There is no Umana's cyst. IMPRESSION: No acute deep venous thrombosis interrogated veins of both lower extremities. Negative for DVT Electronically signed by: Jorge Blancas MD 08/24/2025 06:49 AM EDT
--- NOTE | ~2025-08-23 | XR_ITS ---
CLINICAL HISTORY: Shortness of breath, wheezing, rule out pneumonia 1 view chest x-ray. Comparison: CR - XR CHEST 1V - 07/19/2025 04:00 AM EDT Findings: Similar cardiomegaly. Calcified atherosclerotic disease of the visualized thoracic aorta. Prominent main pulmonary artery. Bilateral pulmonary vascular congestion and interstitial markings. Airspace opacity in the right mid lung No acute fracture. The visualized upper abdomen is unremarkable. Impression: Cardiomegaly and possible pulmonary edema. Airspace opacity in the right mid lung appears mildly more prominent when compared to prior radiograph. Consider repeat CT chest. This document has been electronically signed by: Toshia Santamaria MD on 08/23/2025 19:39:44
--- NOTE | 2025-08-23 17:08 | MHC.EDTECH ---
Patient cleaned and repositioned
--- NOTE | 2025-08-23 17:46 | ECG_ITS ---
Test Reason : DYSPNEA Blood Pressure : */* mmHG Vent. Rate : 66 BPM Atrial Rate : 108 BPM P-R Int : * ms QRS Dur : 118 ms QT Int : 444 ms P-R-T Axes : * -55 81 degrees QTcB Int : 465 ms Undetermined rhythm - some sinus beats Left anterior fascicular block Minimal voltage criteria for LVH, may be normal variant ( [place] product ) Abnormal ECG When compared with ECG of 19-Jul-2025 03:22, Current undetermined rhythm precludes rhythm comparison, needs review Referred By: Sergey Steel Electronically Signed By: JIMBO CASTILLO
--- NOTE | 2025-08-23 18:24 | ED.GENADULT ---
HPI - General Adult General Chief complaint: General Medical Stated complaint: Jen VELASCO Time Seen by Provider: 08/23/25 18:22 Source: patient Mode of arrival: EMS Limitations: no limitations History of Present Illness ED Provider: Insert in HPI narrative: 79-year-old female with a history of diabetes mellitus, hypertension, hyperlipidemia, NSTEMI, HFpEF, COPD-O2 dependent, lymphedema, chronic kidney disease, hypothyroidism, hypokalemia chronic indwelling Moyer who presents emergency department for evaluation of redness, pain and weeping fluid from her lower extremities. Patient states that she has had redness in her lower extremities on and off but over the last 24 hours the redness has gotten worse. She states that she is also weeping yellowish, foul-smelling fluid from her legs. Patient was seen by her visiting nurse and advised to go to the emergency department for evaluation of possible infection. Patient states that she recently was on an antibiotic for urinary tract infection. The patient is also complaining of cough productive of thick phlegm, chest tightness and shortness of breath. She denied fever, chills, nausea or vomiting. She states she has loose incontinent stools which is chronic. Patient was admitted 07/19/2025 until 07/25/2025 for acute on chronic respiratory failure with CHF exacerbation. [facility] and has been home for proximally 1 week. Related Data Home Medications ?Medication ?Instructions ?Recorded ?Confirmed acetaminophen 325 mg tablet 650 mg PO Q4H PRN Fever Or Pain 05/10/25 07/19/25 insulin lispro 100 unit/mL 1 sliding scale dose subcut TIDAC 05/10/25 07/19/25 subcutaneous solution (Humalog U-100 Insulin) empagliflozin 10 mg tablet 10 mg PO DAILY 06/05/25 07/19/25 (Jardiance) Previous Rx's ?Medication ?Instructions ?Recorded Lift chair #1 ea 01/19/25 amlodipine 5 mg tablet 5 mg PO DAILY #90 tabs 03/15/25 ammonium lactate 12 % lotion 1 appl topical BID #400 grams 03/15/25 atorvastatin 40 mg tablet 40 mg PO BEDTIME 90 days #90 tabs 03/15/25 gemfibrozil 600 mg tablet 600 mg PO BID #180 tabs 03/15/25 insulin syringe-needle U-100 0.5 #100 ea 03/15/25 mL 31 gauge x 03/10 lancets (Accu-Chek Softclix #100 ea 03/15/25 Lancets) levothyroxine 200 mcg tablet 200 mcg PO DAILY@0600 90 days #90 03/15/25 tabs pen needle, diabetic 31 gauge x #100 ea 03/15/2503/10 (1st Tier Unifine Pentips) compression stockings #1 ea 03/29/25 ferrous sulfate 324 mg (65 mg 324 mg PO DAILY #1 tab 04/10/25 iron) tablet,delayed release furosemide 40 mg tablet 40 mg PO BID@0900,1800 #1 tab 04/10/25 albuterol sulfate 90 mcg/actuation 2 puff inhalation Q6H PRN 05/29/25 aerosol inhaler (Ventolin HFA) Shortness Of Breath Or Wheezing 30 days #6.7 grams hospital bed #1 ea 05/29/25 albuterol sulfate 2.5 mg/3 mL 2.5 mg (3 mL) inhalation Q6H PRN 05/30/25 (0.083 %) solution for nebulization shortness of breath or wheezing 30 days #90 mL insulin degludec 100 unit/mL (3 25 unit (0.25 mL) subcut BEDTIME 06/29/25 mL) subcutaneous pen (Tresiba 90 days #22.5 mL FlexTouch U-100 insulin) blood sugar diagnostic (Accu-Chek #100 ea 07/15/25 Odilia Plus test strips) blood sugar diagnostic (Accu-Chek #100 ea 07/15/25 Guide test strips) lorazepam 0.5 mg tablet (Ativan) 0.5 mg PO BID #15 tabs 07/25/25 lorazepam 0.5 mg tablet (Ativan) 1 mg (2 x 0.5 mg) PO Q6H PRN 07/25/25 Anxiety #15 tabs Allergies Allergy/AdvReac Type Severity Reaction Status Date / Time ibuprofen (From Motrin) Allergy Unknown swelling Verified 08/23/25 16:15 codeine (CODEINE) AdvReac Unknown SLEEPY Verified 08/23/25 16:15 Review of Systems Review of Systems: Yes all other systems are reviewed and are negative [facility] Past Medical History [facility] Narrative: Social history: She lives at home with her son. She denies tobacco, alcohol and drug use. Medical History Obesity hypoventilation syndrome Pulmonary hypertension Lymphedema COPD (chronic obstructive pulmonary disease) CHF (congestive heart failure) Hypothyroidism Diabetes mellitus Pure hypercholesterolemia Open wound Bilateral hydronephrosis Skin ulcer of sacral region COPD exacerbation MARJORIE (acute kidney injury) Pneumonitis CKD (chronic kidney disease) Renal insufficiency Urinary retention Lumbar degenerative disc disease Chronic pain syndrome Venous stasis dermatitis Atelectasis Generalized anxiety disorder CHF (congestive heart failure) Anemia Herpes zoster Left bundle branch block Morbid obesity Chronic pain syndrome Anxiety Pernicious anemia Essential hypertension Surgical History H/O left knee surgery Deficient knowledge of leg surgery History of tonsillectomy and adenoidectomy History of appendectomy Family History Family History Father CVD (cardiovascular disease) Mother No problems noted. Family/Other FH: mental illness Social History Social History Household Members: Children Household Members Other:: son Housing: House Do you presently have visiting nurse or other home services: Yes (vna) Unable to assess alcohol history related to: Unknown Alcohol intake: never Comment: 1:1 sitter for oxygen administration and redirection Patient Tobacco Use Status: Former Tobacco user Tobacco use type: Cigarette Smoked in Last 30 Days: No e-Cigarette/Vaping Use: Never Used Second Hand Smoke Exposure: No Use of substances other than those prescribed or required for medical reasons: Unknown Advance Directives: Yes Advance Directives on File: Yes Advance Directives Date on File: 06/24/24 service: No Current occupational status: disabled Cognitive needs: Yes (Wheelchair, Lift chair) Hearing needs: No Vision needs: Yes (Glasses) Physical Exam ED Vital Signs: Vital Signs - 24 hr 08/23/25 16:14 08/23/25 18:39 08/23/25 19:41 Temperature 97.3 F 98.1 F Pulse Rate 61 64 60 Respiratory Rate 16 20 14 Blood Pressure 119/60 141/34 H Pulse Oximetry 95 97 Oxygen Delivery Method Room Air Nasal Cannula Oxygen Flow Rate 4 BMI result Body Mass Index 37.8 Vital signs were normal. Exam: General: Awake, alert, appears dyspneic otherwise in no distress. Answers questions appropriately. Head: Normocephalic, atraumatic EENT: PERRL, sclera and conjunctiva are normal, mouth with no erythema or exudates Neck: Supple, no adenopathy Lung: Breath sounds symmetric bilaterally, diffuse rhonchi with no wheezing or rales Chest: symmetric movement, nontender Heart: regular rate and rhythm, normal S1, S2 no murmurs or rubs Abdomen: soft, non-tender, nondistended, normal bowel sounds Groin: Patient has intertriginous candidiasis in the groin area Back: no vertebral tenderness, no CVAT Extremities: Patient has a bright erythema to both legs from the knees, the erythema is warm to the touch and does not phillip. Patient has a weeping yellowish discharge that has a foul odor. The skin is dry and cracked and several areas. Neuro: Awake, alert, oriented, normal speech, cranial nerves 2-12 intact, moves all extremities symmetrically Psych: Pleasant, cooperative Medications Administered Discontinued Medications Generic Name Dose Route Start Last Admin Trade Name Freq PRN Reason Stop Dose Admin Albuterol Sulfate 2.5 mg/ 0 mg 08/23/25 18:33 08/23/25 18:40 Albuterol/Ipratropium 3 ml INHALE 08/23/25 18:34 1 dose ONCE ONE Administration Medical Decision Making Medical Decision Making [facility] Narrative: 79-year-old female with a history of diabetes mellitus, hypertension, hyperlipidemia, NSTEMI, HFpEF, COPD-O2 dependent, lymphedema, chronic kidney disease, hypothyroidism, hypokalemia chronic indwelling Moyer who presents emergency department for evaluation of redness, pain and weeping fluid from her lower extremities. Patient states that she has had redness in her lower extremities on and off but over the last 24 hours the redness has gotten worse. She states that she is also weeping yellowish, foul-smelling fluid from her legs. Patient was seen by her visiting nurse and advised to go to the emergency department for evaluation of possible infection. Patient states that she recently was on an antibiotic for urinary tract infection. The patient is also complaining of cough productive of thick phlegm, chest tightness and shortness of breath. She denied fever, chills, nausea or vomiting. She states she has loose incontinent stools which is chronic.Patient was admitted 07/19/2025 until 07/25/2025 for acute on chronic respiratory failure with CHF exacerbation. [facility] and has been home for proximally 1 week. Vital signs were normal. Lung exam revealed diffuse rhonchi . Lower extremity exam revealed significant erythema with foul smelling yellowish discharge, cracked dry skin. Differential diagnosis: ?Includes but is not limited to cellulitis, chronic dermatitis, pneumonia, congestive heart failure, myocardial infarction, myocardial ischemia exacerbation carbon disease, anemia, electrolyte abnormalities, urinary tract infection Course: 20: 15 over My independent interpretation patient's laboratory evaluation is as follows:WBC elevated 11,900. Chronic normocytic anemia with an H&H of 9 and 30.2. VBG revealed a normal pH of 7.42 and a normal pCO2 of 29. Bicarb was low 19. Lactic acid was normal. Pro BNP elevated 4595. Troponin was elevated at 21.6. We will repeat at 21:30 hours. CMP is pending. Urine specimen was obtained from the chronic indwelling Moyer catheter: Urinalysis was positive for protein, glucose, blood, nitrates, leukocyte esterase. Microscopic revealed greater than 20 RBCs, greater than 50 WBCs, 11-20 squamous cells and 4+ bacteria-unclear if this has a acute urinary tract infection versus colonization over the patient will need to be treated with antibiotics for her cellulitis which may cover urinary tract infection Soliz's well. Chest x-ray is concerning for increased interstitial infiltrates. Given the elevated pro BNP I am concerned that she may have CHF therefore I ordered Lasix 80 mg IV. I am also concerned the patient has cellulitis of her lower extremities therefore I ordered Zosyn 4.5 g IV and vancomycin 2 g IV. Patient has a intertriginous groin infection and I ordered nystatin powder to the groin area. EKG did reveal an irregular rhythm with no clear P waves, unclear if this is atrial fibrillation versus normal sinus rhythm with a sinus arrhythmia. Q-waves in V1 and V2 are new compared to the previous EKG which is concerning for possible transmural NC since the last EKG. 21:38 CMP revealed elevated potassium 5.4, low bicarb of 18, elevated BUN creatinine 10 and 2.45-above baseline of 64 and 1.98 on 07/24/2025. Patient's elevated BUN and creatinine are concerning for possible prerenal acute kidney injury. Patient did receive Lasix 80 mg IV which should bring down the patient's potassium. I did discuss the patient's admission over tiger text with the covering hospitalist, Dr. Rincon. Patient will be admitted for further treatment. Differential Diagnosis Differential Diagnoses: The differential diagnosis associated with the presentation includes (See above) Admission/Observation Consideration of admission/observation: Escalation of care including admission/observation considered (Yes) Consult Healthcare Provider Management of the patient was discussed with: Hospitalist Lab Data MDM Lab Attestation statement: I reviewed the patient's lab results. 08/23/25 19:15 08/23/25 19:34 Labs: Lab Results 08/23/25 08/23/25 Range/Units 19:15 19:41 WBC 11.9 H (4.8-10.8) X10*3/uL RBC 3.14 L (4.20-5.50) X10*6/uL Hgb 9.0 L (12.0-16.0) g/dl Hct 30.2 L (37.0-47.0) % MCV 96.2 (80.0-98.0) fL MCH 28.7 (27.0-33.0) pg MCHC 29.8 L (31.0-35.0) g/dl RDW 15.8 (11.0-16.0) % Plt Count 262 D (160-400) X10*3/uL MPV 9.2 L (9.4-12.3) fL Immature Gran % (Auto) 0.6 H (0.0-0.4) % Neut % (Auto) 89.8 H (45-73) % Lymph % (Auto) 3.5 L (20-40) % Kershaw % (Auto) 4.9 (2-11) % Eos % (Auto) 0.8 (0-4) % Baso % (Auto) 0.4 (0-2) % Lymph # (Auto) 0.4 L (1.2-4.9) X10*3/uL Kershaw # (Auto) 0.6 (0.1-1.2) X10*3/uL Eos # (Auto) 0.1 (0.0-0.4) X10*3/uL Baso # (Auto) 0.1 (0.0-0.2) X10*3/uL Abs Immat Gran (auto) 0.07 H (0.00-0.03) X10*3/uL Absolute Neuts (auto) 10.7 H (2.0-8.3) x10*3/uL Absolute Nucleated RBC 0.000 (0.0-0.012) X10*3/uL Nucleated RBC % (auto) 0.0 (0.0-0.2) /100WBC VBG pH 7.42 (7.32-7.43) VBG pCO2 29 mmHg VBG pO2 140 mmHg VBG HCO3 19 L (22-26) mmol/L VBG O2 Saturation 100.0 % VBG Base Excess -4.0 mmol/L Lactic Acid 0.9 (0.5-2.0) mmol/L Troponin I High Sens 21.6 H (<3.5-17.0) ng/L Independent Interpretation I performed an independent interpretation of an: EKG and Plain X-Ray Interpretation: My independent interpretation patient's chest x-ray is as follows: Increased interstitial markings in both upper and lower quadrants, very similar to previous chest x-ray, concerning for pulmonary edema My independent interpretation patient's 12 EKG done on 08/23/2025 is as follows: Irregular rhythm consistent with atrial fibrillation with a rate of 66, prolonged QRS of 118 milliseconds, normal QTC of 465 milliseconds, no ST segment elevation, no ST segment depression, Q-waves in V1 and V2, inverted T-waves aVL and V1.. Compared to an EKG done 07/19/2025 at 03:22 hours patient had a sinus rhythm with clear P-waves with sinus arrhythmia, Q-waves V1 and V2 are new, inverted T-wave aVL is old. Radiology Impression Discussion of test interpretation with radiology: I have reviewed the radiologist's reading. Radiologist Impression: XR CHEST 1V - 07/19/2025 04:00 AM EDT Findings: Similar cardiomegaly. Calcified atherosclerotic disease of the visualized thoracic aorta. Prominent main pulmonary artery. Bilateral pulmonary vascular congestion and interstitial markings. Airspace opacity in the right mid lung No acute fracture. The visualized upper abdomen is unremarkable. Impression: Cardiomegaly and possible pulmonary edema. Airspace opacity in the right mid lung appears mildly more prominent when compared to prior radiograph. Consider repeat CT chest. This document has been electronically signed by: Toshia Santamaria MD on 08/23/2025 19:39:44 External Record Review External record reviewed: Inpatient record Chronic Conditions Patient?s care impacted by: Diabetes and Hypertension Critical Care Time Critical Care Time Critical Care Time: Yes Total Critical Care Time: 75 Attestation: Critical Care: The patient was critically ill with a high probability of imminent or life threatening deterioration. I spent greater than 30 minutes of discontinuous time evaluating the patient,delivering critical care at the bedside, discussing and evaluating pertinent data with consultants. Critical care time does not include time spent performing separately billable procedures or teaching. Total time spent performing critical care was 75 minutes. Discharge Plan Discharge Clinical Impression: Bilateral cellulitis of lower leg, Pulmonary edema, Acute kidney injury, Acute hyperkalemia, Intertriginous candidiasis Patient Disposition: Admitted As Inpatient Print Language: Slovenian
[2025-08-23] MEDS: Albuterol Sulfate 2.5 MG, Albuterol/Iprat 2.5/0.5MG 3 ML 3 ML INHALE (18:40)
--- NOTE | 2025-08-23 18:41 | PC.NURSE ---
attempted to flush EMS IV, not patent. multiple attempts to place IV without success.
[2025-08-23 19:20] LABS: Hematocrit 30.2 % (37.0-47.0); Hemoglobin 9.0 g/dl (12.0-16.0); MANUAL DIFF FLAG NO; Mean Corpuscular HGB Conc 29.8 g/dl (31.0-35.0); Mean Corpuscular Hemoglobin 28.7 pg (27.0-33.0); Mean Corpuscular Volume 96.2 fL (80.0-98.0); Red Blood Count 3.14 X10*6/uL (4.20-5.50); White Blood Count 11.9 X10*3/uL (4.8-10.8)
[2025-08-23 19:21] LABS: Imm Gran Abs Auto 0.07 X10*3/uL (0.00-0.03); Imm Gran Pct Auto 0.6 % (0.0-0.4); Lymphocytes Absolute Auto 0.4 X10*3/uL (1.2-4.9); NRBC Abs Auto 0.000 X10*3/uL (0.0-0.012); NRBC Pct Auto 0.0 /100WBC (0.0-0.2); Platelet Count 262 X10*3/uL (160-400)
[2025-08-23 19:42] LABS: Troponin-I High Sensitivity 21.6 ng/L (<3.5-17.0)
[2025-08-23 19:43] LABS: Venous Blood Gas Refer to POC result
[2025-08-23 19:46] LABS: VBG HCO3 19 mmol/L (22-26); VBG O2 % Saturation 100.0 %
[2025-08-23 20:03] LABS: NT Pro B Type Natriuretic Pept 4595.9 pg/mL (<300)
[2025-08-23 20:14] LABS: Alanine Aminotransferase 8 U/L (0-31); Albumin Level 3.4 g/dL (3.5-5.0); Alkaline Phosphatase 120 U/L (39-117); Anion Gap 20 (12-20); Aspartate Amino Transferase 25 U/L (5-31); Blood Urea Nitrogen 110 mg/dL (9-16); Calcium 8.2 mg/dL (8.4-10.2); Carbon Dioxide 18 mmol/L (22-29); Chloride 107 mmol/L (96-108); Creatinine Clr Calc Pharmacy 22.9; Estimated Glomerular Filt Rate 19; Potassium 5.4 mmol/L (3.3-5.1); Sodium 140 mmol/L (135-145); Total Protein 7.1 g/dL (6.5-8.0)
--- OUTSIDE RECORDS SUMMARY | 2025-08-23 20:16 | XMS_ITS | Encounter Summary ---
Author Organization [employer] Address [address] [place] [address] Care Team Providers Care Plating Technician Name Role Phone Hal Cole MD Primary Care Provider [phone] Encounter Details Date Type Department Care Team (Late st Contact Info) Description 05/20/2025 Lab Requisition [facility] - Main Lab [address] [place] [address] Hal Cole MD [address] [place] [address], [phone] Hypokalemia; Anemia in chronic kidney disease [...] LAB HEMETOLOGY METHOD 05/22/2025 1:35 PM EDT [facility] RBC 3.00(L) 3.80 - 4.80 M/mcL LAB HEMETOLOGY METHOD 05/22/2025 1:35 PM EDT [facility] Hemoglobin 8.2(L) 11.5 - 16.0 g/dL LAB HEMETOLOGY METHOD 05/22/2025 1:35 PM EDT [facility] Hematocrit 28.6(L) 35.0 - 47.0 % LAB HEMETOLOGY METHOD 05/22/2025 1:35 PM EDT [facility] MCV 96.0 79.0 - 98.0 FL LAB HEMETOLOGY METHOD 05/22/2025 1:35 PM EDT [facility] MCH 27.5 27.0 - 32.0 pcg LAB HEMETOLOGY METHOD 05/22/2025 1:35 PM EDT [facility] MCHC 28.7(L) 32.0 - 37.0 g/dL LAB [facility] RDW 16.0(H) 11.0 - 15.0 % LAB HEMETOLOGY METHOD 05/22/2025 1:35 PM EDT [facility] Platelets 205 130 - 400 K/mcL LAB [facility] MPV 9.8 7.0 - 11.0 FL LAB HEMETOLOGY METHOD 05/22/2025 1:35 PM EDT [facility] NRBC 0.0 <1.0 % LAB HEMETOLOGY METHOD 05/22/2025 1:35 PM T [facility] NRBC Absolute 0.00 <0.10 K/mcL LAB HEMETOLOGY METHOD 05/22/2025 1:[address] [facility] Blood Venous blood specimen / Unknown Venipuncture / Unknown 05/22/2025 6:46 AM EDT 05/22/2025 11:48 AM EDT us Hal Cole MD LAB BLOOD ORDERABLES Final Resul t [facility] [address] [place] [address], * (ABNORMAL) Basic metabolic panel (05/22/2025 6:46 AM EDT) Sodium 139 133 - 145 mmol/L LAB CHEMISTRY METHOD 05/22/2025 2:[address] [facility] Potassium 3.4(L) 3.5 - 5.5 mmol/L LAB CHEMISTRY METHOD 05/22/2025 2:[address] [facility] Chloride 99 96 - 110 mmol/L LAB CHEMISTRY METHOD 05/22/2025 2:[address] [facility] CO2 32 21 - 32 mmol/L LAB CHEMISTRY METHOD 05/22/2025 2:[address] [facility] Anion Gap 8 3 - 11 LAB CHEMISTRY METHOD 05/22/2025 2:[address] [facility] Glucose 80 70 - 100 mg/dL LAB CHEMISTRY METHOD 05/22/2025 2:[address] [facility] BUN 63(H) 5 - 25 mg/dL LAB CHEMISTRY METHOD 05/22/2025 2:[address] [facility] Creatinine 1.62(H) 0.50 - 1.10 mg/dL LAB CHEMISTRY METHOD 05/22/2025 2:[address] [facility] eGFR 33(L) >=60 mL/min/1. 73m2 LAB CHEMISTRY METHOD 05/22/2025 2:[address] [facility] Comment:Calculation based on the Chronic Kidney Disease Epidemiology Collaboration (CKD-EPI) equation refit without adjustment for race. BUN/Creatinine Ratio 38.9 LAB CHEMISTRY METHOD 05/22/2025 2:[address] [facility] Calcium 7.5(L) 8.5 - 10.5 mg/dL LAB CHEMISTRY METHOD 05/22/2025 2:39 PM EDT [facility] Blood Venous blood specimen / Unknown Venipuncture / Unknown 05/22/2025 6:46 AM EDT 05/22/2025 11:48 AM EDT us Hal Cole MD LAB BLOOD ORDERABLES Final Resul t [facility] [address] [place] [address], documented in this encounter Visit Diagnoses Diagnosis Hypokalemia Hypopotassemia Anemia in chronic kidney disease (CODE) documented in this encounter Additional Health Concerns Infection Onset Date Last Indicated Resolved Time ESBL 08/10/2025 08/10/2025 documented as of this encounter Care Teams Plating Technician Relationship Specialty Start Date End Date Hal Cole MD [address] [place] [phone] PCP - General Family Medicine 09/15/24 documented as of this encounter
--- OUTSIDE RECORDS SUMMARY | 2025-08-23 20:16 | XMS_ITS | Encounter Summary ---
Author Organization [employer] Address [address] [place] [address] Care Team Providers Care Lead Massage Therapist Name Role Phone Hal Cole MD Primary Care Provider [phone] Encounter Details Date Type Department Care Team (Late st Contact Info) Description 09/28/2024 Lab Requisition [facility] - Main Lab [address] [facility] [place] [address] Hal Cole MD [address] [place] [address], [phone] Essential (primary) hypertension; Chronic obstructive pulmonary [...] LAB CHEMISTRY METHOD 09/28/2024 1:08 PM EST [facility] Blood Venous blood specimen / Unknown Venipuncture / Unknown 09/28/2024 7:04 AM EST 09/28/2024 11:03 AM EST Hal Cole MD LAB BLOOD ORDERABLES Final Resul t Performing Organization Address [facility]/ZIP Co de Phone Number [facility] [address] [place] [address], [place] [phone] * Free thyroxine with reflex to free triiodothyronine (09/28/2024 7:04 AM EST) Pathologist [facility] Free T4 0.88 0.70 - 1.80 ng/dL LAB CHEMISTRY METHOD 09/28/2024 12:41 PM EST [facility] Blood Venous blood specimen / Unknown Venipuncture / Unknown 09/28/2024 7:04 AM EST 09/28/2024 11:03 AM EST Hal Cole MD LAB BLOOD ORDERABLES Final Resul t [facility] [address] [place] [address], [place] [phone] * (ABNORMAL) Thyroid stimulating hormone with reflex to free t4 and free t3 (09/28/2024 7:04 AM EST) TSH 50.98(H) 0.40 - 4.00 mcIU/mL LAB CHEMISTRY METHOD 09/28/2024 12:15 PM [facility] Blood Venous blood specimen / Unknown Venipuncture / Unknown 09/28/2024 7:04 AM EST 09/28/2024 11:03 AM EST us Hal Cole MD LAB BLOOD ORDERABLES Final Resul t [facility] [address] [place] [address], [place] [phone] * (ABNORMAL) Basic metabolic panel (09/28/2024 7:04 AM EST) Sodium 141 133 - 145 mmol/L LAB CHEMISTRY METHOD 09/28/2024 12:06 PM [facility] Potassium 4.2 3.5 - 5.5 mmol/L LAB CHEMISTRY METHOD 09/28/2024 12:06 PM [facility] Chloride 106 96 - 110 mmol/L LAB CHEMISTRY METHOD 09/28/2024 12:06 PM [facility] CO2 29 21 - 32 mmol/L LAB CHEMISTRY METHOD 09/28/2024 12:06 PM [facility] Anion Gap 6 3 - 11 LAB CHEMISTRY METHOD 09/28/2024 12:06 PM [facility] Glucose 139(H) 70 - 100 mg/dL LAB CHEMISTRY METHOD 09/28/2024 12:06 PM [facility] BUN 67(H) 5 - 25 mg/dL LAB CHEMISTRY METHOD 09/28/2024 12:06 PM [facility] Creatinine 1.83(H) 0.50 - 1.10 mg/dL LAB CHEMISTRY METHOD 09/28/2024 12:06 PM [facility] eGFR 28(L) >=60 mL/min/1. 73m2 LAB CHEMISTRY METHOD 09/28/2024 12:06 PM [facility] Comment:Calculation based on the Chronic Kidney Disease Epidemiology Collaboration (CKD-EPI) equation refit without adjustment for race. BUN/Creatinine Ratio 36.6 LAB CHEMISTRY METHOD 09/28/2024 12:06 PM [facility] Calcium 8.3(L) 8.5 - 10.5 mg/dL LAB CHEMISTRY METHOD 09/28/2024 12:06 PM [facility] Blood Venous blood specimen / Unknown Venipuncture / Unknown 09/28/2024 7:04 AM EST 09/28/2024 11:03 AM EST us Hal Cole MD LAB BLOOD ORDERABLES Final Resul t [facility] [address] [place] [address], * (ABNORMAL) Complete blood count (09/28/2024 7:04 AM EST) WBC 7.1 4.8 - 10.8 K/mcL LAB HEMETOLOGY METHOD 09/28/2024 11:31 AM [facility] RBC 3.70(L) 3.80 - 4.80 M/mcL LAB HEMETOLOGY METHOD 09/28/2024 11:31 AM [facility] Hemoglobin 10.8(L) 11.5 - 16.0 g/dL LAB HEMETOLOGY METHOD 09/28/2024 11:31 AM [facility] Hematocrit 36.0 35.0 - 47.0 % LAB HEMETOLOGY METHOD 09/28/2024 11:31 AM [facility] MCV 96.5 79.0 - 98.0 FL LAB HEMETOLOGY METHOD 09/28/2024 11:31 AM [facility] MCH 29.0 27.0 - 32.0 pcg LAB HEMETOLOGY METHOD 09/28/2024 11:31 AM [facility] MCHC 30.0(L) 32.0 - 37.0 g/dL LAB HEMETOLOGY METHOD 09/28/2024 11:31 AM EST [facility] RDW 13.5 11.0 - 15.0 % LAB HEMETOLOGY METHOD 09/28/2024 11:31 AM [facility] Platelets 214 130 - 400 K/mcL LAB HEMETOLOGY METHOD 09/28/2024 11:31 AM [facility] MPV 9.9 7.0 - 11.0 FL LAB HEMETOLOGY METHOD 09/28/2024 11:31 AM [facility] NRBC 0.0 <1.0 % LAB HEMETOLOGY METHOD 09/28/2024 11:31 AM [facility] NRBC Absolute 0.00 <0.10 K/mcL LAB HEMETOLOGY METHOD 09/28/2024 11:31 AM [facility] Blood Venous blood specimen / Unknown Venipuncture / Unknown 09/28/2024 7:04 AM EST 09/28/2024 11:03 AM EST Hal Cole MD LAB BLOOD ORDERABLES Final Resul t [facility] [address] [place] [address], documented in this encounter Visit Diagnoses Diagnosis Essential (primary) hypertension Unspecified essential hypertension Chronic obstructive pulmonary disease, unspecified (CMS/HCC V24, CMS/HCC V28) documented in this encounter Additional Health Concerns Infection Onset Date Last Indicated Resolved Time ESBL 08/10/2025 08/10/2025 documented as of this encounter Care Teams Lead Massage Therapist Relationship Specialty Start Date End Date Hal Cole MD [address] [facility] [address] [place], [phone] PCP - General Family Medicine 09/15/24 documented as of this encounter
--- OUTSIDE RECORDS SUMMARY | 2025-08-23 20:16 | XMS_ITS | Encounter Summary ---
Author Organization [employer] Address [address] [place] [address] Care Team Providers Care Historic Site Administrator Name Role Phone Hal Cole MD Primary Care Provider [phone] Encounter Details Date Type Department Care Team (Late st Contact Info) Description 06/06/2025 Lab Requisition [facility] - Main Lab [address] [place] [address] Hal Cole MD [address] [place] [address], [phone] Anemia, unspecified; Chronic kidney disease, unspecified [...] LAB CHEMISTRY METHOD 06/06/2025 8:55 AM EDT [facility] Potassium 3.7 3.5 - 5.5 mmol/L LAB CHEMISTRY METHOD 06/06/2025 8:55 AM EDT [facility] Chloride 101 96 - 110 mmol/L LAB CHEMISTRY METHOD 06/06/2025 8:55 AM [facility] CO2 30 21 - 32 mmol/L LAB CHEMISTRY METHOD 06/06/2025 8:55 AM [facility] Anion Gap 7 3 - 11 LAB CHEMISTRY METHOD 06/06/2025 8:55 AM [facility] Glucose 165(H) 70 - 100 mg/dL LAB CHEMISTRY METHOD 06/06/2025 8:55 AM [facility] BUN 51(H) 5 - 25 mg/dL LAB CHEMISTRY METHOD 06/06/2025 8:55 AM [facility] Creatinine 1.75(H) 0.50 - 1.10 mg/dL LAB CHEMISTRY METHOD 06/06/2025 8:55 AM [facility] eGFR 30(L) >=60 mL/min/1. 73m2 LAB CHEMISTRY METHOD 06/06/2025 8:55 AM [facility] Comment:Calculation based on the Chronic Kidney Disease Epidemiology Collaboration (CKD-EPI) equation refit without adjustment for race. BUN/Creatinine Ratio 29.1 LAB CHEMISTRY METHOD 06/06/2025 8:55 AM [facility] Calcium 8.1(L) 8.5 - 10.5 mg/dL LAB CHEMISTRY METHOD 06/06/2025 8:55 AM [facility] Blood Venous blood specimen / Unknown Venipuncture / Unknown 06/06/2025 5:50 AM EDT 06/06/2025 8:01 AM EDT us Hal Cole MD LAB BLOOD ORDERABLES Final Resul t [facility] [address] [place] [address], * (ABNORMAL) Complete blood count (06/06/2025 5:50 AM EDT) [facility] WBC 9.1 4.8 - 10.8 K/mcL LAB HEMETOLOGY METHOD 06/06/2025 8:31 AM [facility] RBC 3.30(L) 3.80 - 4.80 M/mcL LAB HEMETOLOGY METHOD 06/06/2025 8:31 AM [facility] Hemoglobin 9.2(L) 11.5 - 16.0 g/dL LAB HEMETOLOGY METHOD 06/06/2025 8:31 AM [facility] Hematocrit 31.1(L) 35.0 - 47.0 % LAB HEMETOLOGY METHOD 06/06/2025 8:31 AM [facility] MCV 93.7 79.0 - 98.0 FL LAB HEMETOLOGY METHOD 06/06/2025 8:31 AM [facility] MCH 27.7 27.0 - 32.0 pcg LAB HEMETOLOGY METHOD 06/06/2025 8:31 AM [facility] MCHC 29.6(L) 32.0 - 37.0 g/dL LAB HEMETOLOGY METHOD 06/06/2025 8:31 AM [facility] RDW 14.7 11.0 - 15.0 % LAB HEMETOLOGY METHOD 06/06/2025 8:31 AM [facility] Platelets 248 130 - 400 K/mcL LAB HEMETOLOGY METHOD 06/06/2025 8:31 AM [facility] MPV 10.0 7.0 - 11.0 FL LAB HEMETOLOGY METHOD 06/06/2025 8:31 AM [facility] NRBC 0.0 <1.0 % LAB HEMETOLOGY METHOD 06/06/2025 8:31 AM [facility] NRBC Absolute 0.00 <0.10 K/mcL LAB HEMETOLOGY METHOD 06/06/2025 8:31 AM EDT [facility] Blood Venous blood specimen / Unknown Venipuncture / Unknown 06/06/2025 5:50 AM EDT 06/06/2025 8:01 AM EDT Hal Cole MD LAB BLOOD ORDERABLES Final Resul t [facility] [address] [place] [address], documented in this encounter Visit Diagnoses Diagnosis Anemia, unspecified Chronic kidney disease, unspecified documented in this encounter Additional Health Concerns 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
--- OUTSIDE RECORDS SUMMARY | 2025-08-23 20:16 | XMS_ITS | Clinical Summary ---
Author Organization [facility] Address [address] [place] [address] Phone Care Team Providers Care Adjustment Examiner Name Role Phone Neida Mirza MD Primary Care Provider [phone] Allergies Active Allergy Reactions Criticality Noted Date [...] this topic Insurance Medicare Medicare Care Teams Adjustment Examiner Relationship Specialty Start Date End Date Neida Mirza MD [address] [place], [place] PCP - General 11/05/20
--- OUTSIDE RECORDS SUMMARY | 2025-08-23 20:16 | XMS_ITS | Encounter Summary ---
Author Organization [employer] Address [address] [place] [address] Care Team Providers Care [place] Marshal Name Role Phone Hal Cole MD Primary Care Provider [phone] Encounter Details Date Type Department Care Team (Late st Contact Info) Description 05/23/2025 Lab Requisition [facility] - Main Lab [address] [place] [address] Hal Cole MD [address] [place] [address], [phone] Chronic kidney disease, unspecified Social History [...] LAB CHEMISTRY METHOD 05/24/2025 10:40 AM EDT [facility] Chloride 100 96 - [...] Resul t [facility] [address] [place] [address], documented in this encounter Visit Diagnoses Diagnosis Chronic kidney disease, unspecified documented in this encounter Additional Health Concerns Infection Onset Date 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
--- OUTSIDE RECORDS SUMMARY | 2025-08-23 20:16 | XMS_ITS | Encounter Summary ---
Author Organization [employer] Address [address] [place] [address] Care Team Providers Care Machine Operator Cane Cutter Name Role Phone Hal Cole MD Primary Care Provider [phone] Encounter Details Date Type Department Care Team (Late st Contact Info) Description 06/10/2025 Lab Requisition [facility] - Main Lab [address] [place] [address] Hal Cole MD [address] [place] [address], [phone] Anemia, unspecified; Chronic kidney disease, unspecified [...] LAB CHEMISTRY METHOD 06/12/2025 1:43 PM EDT [facility] Potassium 3.8 3.5 - 5.5 mmol/L LAB CHEMISTRY METHOD 06/12/2025 1:43 PM EDT [facility] Chloride 99 96 - 110 mmol/L LAB CHEMISTRY METHOD 06/12/2025 1:43 PM EDT [facility] CO2 27 21 - 32 mmol/L LAB CHEMISTRY METHOD 06/12/2025 1:[address] [facility] Anion Gap 11 3 - 11 LAB CHEMISTRY METHOD 06/12/2025 1:[address] [facility] Glucose 93 70 - 100 mg/dL LAB CHEMISTRY METHOD 06/12/2025 1:43 PM T [facility] BUN 73(H) 5 - 25 mg/dL LAB CHEMISTRY METHOD 06/12/2025 1:[address] [facility] Creatinine 1.49(H) 0.50 - 1.10 mg/dL LAB CHEMISTRY METHOD 06/12/2025 1:[address] [facility] eGFR 36(L) >=60 mL/min/1. 73m2 LAB CHEMISTRY METHOD 06/12/2025 1:43 PM T [facility] Comment:Calculation based on the Chronic Kidney Disease Epidemiology Collaboration (CKD-EPI) equation refit without adjustment for race. BUN/Creatinine Ratio 49.0 LAB CHEMISTRY METHOD 06/12/2025 1:[address] [facility] Calcium 8.0(L) 8.5 - 10.5 mg/dL LAB CHEMISTRY METHOD 06/12/2025 1:43 PM T [facility] Blood Venous blood specimen / Unknown Venipuncture / Unknown 06/12/2025 6:01 AM EDT 06/12/2025 11:14 AM EDT us Hla Cole MD LAB BLOOD ORDERABLES Final Resul t [facility] [address] [place] [address], * (ABNORMAL) Complete blood count (06/12/2025 6:01 AM EDT) [facility] WBC 8.7 4.8 - 10.8 K/mcL LAB HEMETOLOGY METHOD 06/12/2025 1:24 PM EDT [facility] RBC 3.30(L) 3.80 - 4.80 M/mcL LAB HEMETOLOGY METHOD 06/12/2025 1[facility] Hemoglobin 9.3(L) 11.5 - 16.0 g/dL LAB HEMETOLOGY METHOD 06/12/2025 1:24 [facility] Hematocrit 30.7(L) 35.0 - 47.0 % LAB HEMETOLOGY METHOD 06/12/2025 1:24 [facility] MCV 91.9 79.0 - 98.0 FL LAB HEMETOLOGY METHOD 06/12/2025 1:[address] [facility] MCH 27.8 27.0 - 32.0 pcg LAB HEMETOLOGY METHOD 06/12/2025 1:[address] [facility] MCHC 30.3(L) 32.0 - 37.0 g/dL LAB HEMETOLOGY METHOD 06/12/2025 1:[address] [facility] RDW 14.6 11.0 - 15.0 % LAB HEMETOLOGY METHOD 06/12/2025 1:[address] [facility] Platelets 348 130 - 400 K/mcL LAB HEMETOLOGY METHOD 06/12/2025 1:[address] [facility] MPV 8.8 7.0 - 11.0 FL LAB HEMETOLOGY METHOD 06/12/2025 1:[facility] NRBC 0.0 <1.0 % LAB HEMETOLOGY METHOD 06/12/2025 1:24 PM [facility] NRBC Absolute 0.00 <0.10 K/mcL LAB HEMETOLOGY METHOD 06/12/2025 1:24 PM EDT [facility] Blood Venous blood specimen / Unknown Venipuncture / Unknown 06/12/2025 6:01 AM EDT 06/12/2025 11:14 AM EDT Hal Cole MD LAB BLOOD ORDERABLES Final Resul t [facility] [address] [place] [address], documented in this encounter Visit Diagnoses Diagnosis Anemia, unspecified Chronic kidney disease, unspecified documented in this encounter Additional Health Concerns 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
--- OUTSIDE RECORDS SUMMARY | 2025-08-23 20:16 | XMS_ITS | Encounter Summary ---
Author Organization [employer] Address [address] [place] [address] Care Team Providers Care Cloth Examiner Hand Name Role Phone Hal Cole MD Primary Care Provider [phone] Encounter Details Date Type Department Care Team (Late st Contact Info) Description 06/16/2025 Lab Requisition [facility] - Main Lab [address] [place] [address] Hal Cole MD [address] [place] [address], [phone] Anemia, unspecified; Chronic kidney disease, unspecified [...] LAB CHEMISTRY METHOD 06/19/2025 11:23 AM EDT [facility] Potassium 3.4(L) 3.5 - 5.5 mmol/L LAB CHEMISTRY METHOD 06/19/2025 11:[facility] Chloride 100 96 - 110 mmol/L LAB CHEMISTRY METHOD 06/19/2025 11:23 AM [facility] CO2 29 21 - 32 mmol/L LAB CHEMISTRY METHOD 06/19/2025 11:23 AM [facility] Anion Gap 11 3 - 11 LAB CHEMISTRY METHOD 06/19/2025 11:23 AM [facility] Glucose 203(H) 70 - 100 mg/dL LAB CHEMISTRY METHOD 06/19/2025 11:23 AM [facility] BUN 88(H) 5 - 25 mg/dL LAB CHEMISTRY METHOD 06/19/2025 11:23 AM [facility] Creatinine 1.43(H) 0.50 - 1.10 mg/dL LAB CHEMISTRY METHOD 06/19/2025 11:23 AM [facility] eGFR 38(L) >=60 mL/min/1. 73m2 LAB CHEMISTRY METHOD 06/19/2025 11:23 AM [facility] Comment:Calculation based on the Chronic Kidney Disease Epidemiology Collaboration (CKD-EPI) equation refit without adjustment for race. BUN/Creatinine Ratio 61.5 LAB CHEMISTRY METHOD 06/19/2025 11:23 AM [facility] Calcium 7.7(L) 8.5 - 10.5 mg/dL LAB CHEMISTRY METHOD 06/19/2025 11:23 AM [facility] Blood Venous blood specimen / Unknown Venipuncture / Unknown 06/19/2025 5:45 AM EDT 06/19/2025 10:26 AM EDT us Hal Cole MD LAB BLOOD ORDERABLES Final Resul t [facility] [address] [place] [address], * (ABNORMAL) Complete blood count (06/19/2025 5:45 AM EDT) [facility] WBC 9.4 4.8 - 10.8 K/mcL LAB HEMETOLOGY METHOD 06/19/2025 10:42 AM [facility] RBC 3.30(L) 3.80 - 4.80 M/mcL LAB HEMETOLOGY METHOD 06/19/2025 10:42 AM [facility] Hemoglobin 9.1(L) 11.5 - 16.0 g/dL LAB HEMETOLOGY METHOD 06/19/2025 10:42 AM [facility] Hematocrit 30.2(L) 35.0 - 47.0 % LAB HEMETOLOGY METHOD 06/19/2025 10:42 AM [facility] MCV 92.1 79.0 - 98.0 FL LAB HEMETOLOGY METHOD 06/19/2025 10:42 AM [facility] MCH 27.7 27.0 - 32.0 pcg LAB HEMETOLOGY METHOD 06/19/2025 10:42 AM [facility] MCHC 30.1(L) 32.0 - 37.0 g/dL LAB HEMETOLOGY METHOD 06/19/2025 10:42 AM [facility] RDW 14.6 11.0 - 15.0 % LAB HEMETOLOGY METHOD 06/19/2025 10:42 AM [facility] Platelets 305 130 - 400 K/mcL LAB HEMETOLOGY METHOD 06/19/2025 10:42 AM [facility] MPV 9.5 7.0 - 11.0 FL LAB HEMETOLOGY METHOD 06/19/2025 10:42 AM [facility] NRBC 0.0 <1.0 % LAB HEMETOLOGY METHOD 06/19/2025 10:42 AM [facility] NRBC Absolute 0.00 <0.10 K/mcL LAB HEMETOLOGY METHOD 06/19/2025 10:42 AM EDT [facility] Blood Venous blood specimen / Unknown Venipuncture / Unknown 06/19/2025 5:45 AM EDT 06/19/2025 10:26 AM EDT Hal Cole MD LAB BLOOD ORDERABLES Final Resul t [facility] [address] [place] [address], documented in this encounter Visit Diagnoses Diagnosis Anemia, unspecified Chronic kidney disease, unspecified documented in this encounter Additional Health Concerns 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
--- OUTSIDE RECORDS SUMMARY | 2025-08-23 20:16 | XMS_ITS | Clinical Summary ---
Author Organization [address] Address [address] [place] [address] Phone Care Team Providers Care Kitchen Steward/Stewardess Name Role Phone Hal Cole MD Primary Care Provider [phone] Encounters Date Type Department Care Team Description 08/18/2025 Lab Requisition [facility] [address] [place] [phone] Hal Cole MD Chronic kidney disease, unspecified; Type 2 diabetes mellitus without complications ([facility]/HCC V24, CMS/[facility] V28); Heart failure, unspecified ([facility] V24, CMS/[facility] V28) 08/12/2025 Lab Requisition [facility] [address] [place] [phone] Hal Cole MD Chronic kidney disease, unspecified; Type 2 diabetes mellitus without complications (CMS/HCC V24, CMS/HCC V28); Heart failure, unspecified ([facility]/HCC V24, CMS/HCC V28) 08/10/2025 Lab Requisition [facility] [address] [place] [phone] Hal Cole MD Painful micturition, unspecified 08/08/2025 Lab Requisition [facility] [address] [place] [phone] Hal Cole MD Heart failure, unspecified (CMS/HCC V24, CMS/HCC V28); Type 2 diabetes mellitus without complications (CMS/HCC V24, CMS/[facility] V28); Chronic kidney disease, unspecified 07/29/2025 Lab Requisition [facility] [address] [place] [phone] Hal Cole MD Chronic kidney disease, unspecified 07/26/2025 Lab Requisition [facility] [address] [place] [address] Hal Cole MD Chronic kidney disease, unspecified 06/23/2025 Lab Requisition [facility] [address] [place] [address] Hal Cole MD Anemia, unspecified; Chronic kidney disease, unspecified 06/16/2025 Lab Requisition [facility] [address] [place] [address] Hal Cole MD Anemia, unspecified; Chronic kidney disease, unspecified 06/10/2025 Lab Requisition [facility] [address] [place] [phone] Hal Cole MD Anemia, unspecified; Chronic kidney disease, unspecified 06/06/2025 Lab Requisition [facility] [address] [place] [phone] Hal Cole MD Anemia, unspecified; Chronic kidney disease, unspecified 05/26/2025 Lab Requisition [facility] [address] [place] [phone] Hal Cole MD Hypokalemia; Anemia in chronic kidney disease (CODE) 05/25/2025 Lab Requisition [facility] [address] [place] [address] Hal Cole MD Hypokalemia 05/23/2025 Lab Requisition [facility] [address] [place] [phone] Hal Cole MD Chronic kidney disease, unspecified from Last 3 Months Social History Tobacco [...] Control Test (HGBA1C) 05/19/2025 COVID-19 Vaccine ( season) 2025 Influenza Vaccine (#1) 2025 11/10/2021 Diabetes: Annual GFR (Glomerular Filtration Rate) 08/14/2026 08/14/2025, 08/08/2025, 07/26/2025, Additional history exists Hypertension/CHF/CAD Annual BMP Blood Test 08/14/2026 08/14/2025, 08/08/2025, 07/26/2025, Additional history exists HIB Vaccines Aged Out [...] Associated Diagnosis Comments BASIC METABOLIC PANEL Routine 08/14/2025 5:34 AM EDT Chronic kidney disease, unspecified Type 2 diabetes mellitus without complications (CMS/HCC V24, CMS/HCC V28) Heart failure, unspecified (CMS/HCC V24, CMS/HCC V28) COMPLETE BLOOD COUNT Routine 08/14/2025 5:34 AM EDT Chronic kidney disease, unspecified Type 2 diabetes mellitus without complications (CMS/HCC V24, CMS/HCC V28) Heart failure, unspecified (CMS/HCC V24, CMS/HCC V28) URINALYSIS WITH REFLEX MICROSCOPIC Routine 08/10/2025 8:00 AM EDT Painful micturition, unspecified URINALYSIS WITH REFLEX MICROSCOPIC Routine 08/10/2025 8:00 AM EDT Painful micturition, unspecified CULTURE URINE Routine 08/10/2025 8:00 AM EDT Painful micturition, unspecified BASIC METABOLIC PANEL Routine 08/08/2025 5:10 AM EDT Heart failure, unspecified (CMS/HCC V24, CMS/HCC V28) Type 2 diabetes mellitus without complications (CMS/HCC V24, CMS/HCC V28) Chronic kidney disease, unspecified COMPLETE BLOOD COUNT Routine 08/08/2025 5:10 AM EDT Heart failure, unspecified (CMS/HCC V24, CMS/HCC V28) Type 2 diabetes mellitus without complications (CMS/HCC V24, CMS/HCC V28) Chronic kidney disease, unspecified COMPREHENSIVE METABOLIC PANEL Routine 07/26/2025 6:51 AM EDT Chronic kidney disease, unspecified COMPLETE BLOOD COUNT Routine 07/26/2025 6:51 AM EDT Chronic kidney disease, unspecified BASIC METABOLIC PANEL [...] 5:08 AM EDT Chronic kidney disease, unspecified from Last 3 Months Results * (ABNORMAL) Complete blood count (08/14/2025 5:34 AM EDT) Only the most recent of6 resultswithin the time period is included. [facility] Signature WBC 6.8 4.8 - 10.8 K/mcL LAB HEMETOLOGY METHOD 08/14/2025 11:31 AM EDT [facility] RBC 3.10(L) 3.80 - 4.80 M/mcL LAB HEMETOLOGY METHOD 08/14/2025 11:31 AM EDT [facility] Hemoglobin 8.8(L) 11.5 - 16.0 g/dL LAB HEMETOLOGY METHOD 08/14/2025 11:31 AM EDT [facility] Hematocrit 30.5(L) 35.0 - 47.0 % LAB HEMETOLOGY METHOD 08/14/2025 11:31 AM EDT [facility] MCV 98.4(H) 79.0 - 98.0 FL LAB HEMETOLOGY METHOD 08/14/2025 11:31 AM [facility] MCH 28.4 27.0 - 32.0 pcg LAB HEMETOLOGY METHOD 08/14/2025 11:31 AM EDT [facility] MCHC 28.9(L) 32.0 - 37.0 g/dL LAB HEMETOLOGY METHOD 08/14/2025 11:31 AM [facility] RDW 16.3(H) 11.0 - 15.0 % LAB HEMETOLOGY METHOD 08/14/2025 11:31 AM [facility] Platelets 261 130 - 400 K/mcL LAB HEMETOLOGY METHOD 08/14/2025 11:31 AM EDT [facility] MPV 9.5 7.0 - 11.0 FL LAB HEMETOLOGY METHOD 08/14/2025 11:31 AM [facility] NRBC 0.0 <1.0 % LAB HEMETOLOGY METHOD 08/14/2025 11:31 AM [facility] NRBC Absolute 0.00 <0.10 K/mcL LAB HEMETOLOGY METHOD 08/14/2025 11:31 AM [facility] Blood Venous blood specimen / Unknown Venipuncture / Unknown 08/14/2025 5:34 AM EDT 08/14/2025 10:54 AM EDT us Hal Cole MD LAB BLOOD ORDERABLES Final Resul t [facility] [address] [place] [address], * (ABNORMAL) Basic metabolic panel (08/14/2025 5:34 AM EDT) Only the most recent of7 resultswithin the time period is included. Sodium 141 133 - 145 mmol/L LAB CHEMISTRY METHOD 08/14/2025 12:30 PM [facility] Potassium 4.3 3.5 - 5.5 mmol/L LAB CHEMISTRY METHOD 08/14/2025 12:30 PM [facility] Chloride 100 96 - 110 mmol/L LAB CHEMISTRY METHOD 08/14/2025 12:30 PM [facility] CO2 33(H) 21 - 32 mmol/L LAB CHEMISTRY METHOD 08/14/2025 12:30 PM [facility] Anion Gap 8 3 - 11 LAB CHEMISTRY METHOD 08/14/2025 12:30 PM [facility] Glucose 108(H) 70 - 100 mg/dL LAB CHEMISTRY METHOD 08/14/2025 12:30 PM [facility] BUN 68(H) 5 - 25 mg/dL LAB CHEMISTRY METHOD 08/14/2025 12:30 PM [facility] Creatinine 2.00(H) 0.50 - 1.10 mg/dL LAB CHEMISTRY METHOD 08/14/2025 12:30 PM [facility] eGFR 25(L) >=60 mL/min/1. 73m2 LAB CHEMISTRY METHOD 08/14/2025 12:30 PM [facility] Comment:Calculation based on the Chronic Kidney Disease Epidemiology Collaboration (CKD-EPI) equation refit without adjustment for race. BUN/Creatinine Ratio 34.0 LAB CHEMISTRY METHOD 08/14/2025 12:30 PM [facility] Calcium 8.1(L) 8.5 - 10.5 mg/dL LAB CHEMISTRY METHOD 08/14/2025 12:30 PM [facility] Blood Venous blood specimen / Unknown Venipuncture / Unknown 08/14/2025 5:34 AM EDT 08/14/2025 10:54 AM EDT us Hal Cole MD LAB BLOOD ORDERABLES Final Resul t [facility] [address] [place] [address], [place] [phone] * (ABNORMAL) Urinalysis with reflex microscopic (08/10/2025 8:00 AM EDT) Pathologist [facility] Specific [place] Urine 1.012 1.003 - 1.030 LAB URINALYSIS - AUTOMATED METHOD 08/10/2025 11:01 AM [facility] pH, Urine 6.0 5.0 - 8.0 pH LAB URINALYSIS - AUTOMATED METHOD 08/10/2025 11:01 AM [facility] Leukocytes, Urine Moderate(A) Negative LAB URINALYSIS - AUTOMATED METHOD 08/10/2025 11:01 AM [facility] Nitrite, Urine Negative Negative LAB URINALYSIS - AUTOMATED METHOD 08/10/2025 11:01 AM [facility] Protein, Urine 100(A) <=Trace mg/dL LAB URINALYSIS - AUTOMATED METHOD 08/10/2025 11:01 AM [facility] Glucose, Urine 500(A) Negative mg/dL LAB URINALYSIS - AUTOMATED METHOD 08/10/2025 11:01 AM [facility] Ketones, Urine Negative Negative mg/dL LAB URINALYSIS - AUTOMATED METHOD 08/10/2025 11:01 AM [facility] Urobilinogen , Urine 0.2 0.2 - 1.0 mg/dL LAB URINALYSIS - AUTOMATED METHOD 08/10/2025 11:01 AM [facility] Bilirubin, Urine Negative Negative LAB URINALYSIS - AUTOMATED METHOD 08/10/2025 11:01 AM [facility] Blood, Urine Trace(A) Negative LAB URINALYSIS - AUTOMATED METHOD 08/10/2025 11:01 AM EDT [facility] RBC, Urine 6.0(H) 0 - 4 /HPF LAB URINALYSIS - AUTOMATED METHOD 08/10/2025 11:01 AM EDT [facility] WBC, Urine 55.2(H) 0 - 4 /HPF LAB URINALYSIS - AUTOMATED METHOD 08/10/2025 11:01 AM EDT [facility] Squamous Epithelial, Urine 4 0 - 60 /LPF LAB URINALYSIS - AUTOMATED METHOD 08/10/2025 11:01 AM EDT [facility] Bacteria, Urine Few(A) Negative /HPF LAB URINALYSIS - AUTOMATED METHOD 08/10/2025 11:01 AM [facility] Hyaline Casts, Urine 0.8 0 - 3 /LPF LAB URINALYSIS - AUTOMATED METHOD 08/10/2025 11:01 AM [facility] Urine Indwelling urinary catheter / Unknown 08/10/2025 8:00 AM EDT 08/10/2025 10:40 AM EDT us Hal Cole MD LAB URINE ORDERABLES Final Resul t [facility] [address] [place] [address], * (ABNORMAL) Culture urine (08/10/2025 8:00 AM EDT) Culture, Urine >=100,000 CFU/mL Klebsiella pneumoniae ESBL(A) BEN 08/13/2025 7:54 AM EDT [facility] Comment: THIS ORGANISM IS POSITIVE FOR EXTENDED SPECTRUM BETA-LACTAMASE (ESBL). EXTENDED SPECTRUM BETA-LACTAMASE PRODUCING ORGANISMS DEMONSTRATE DECREASED ACTIVITY WITH PENICILLINS, CEPHALOSPORINS AND AZTREONAM. This is an edited result. Previous organism was Gram negative bacilli on 08/12/2025 at 1026 EDT. Culture, Urine 10,000-49,000 CFU/mL Providencia stuartii(A) BEN 08/13/2025 7:54 AM EDT [facility] Comment: The organism value for this result has been updated. These results have been appended to the previously preliminary verified report. Urine Indwelling urinary catheter / Unknown 08/10/2025 8:00 AM EDT 08/10/2025 10:40 AM EDT Narrative Organism Antibiotic Method Susceptibility Klebsiella pneumoniae ESBL Amoxicillin/Clavulanate BEN 4 ug/ml: Susceptible Klebsiella pneumoniae ESBL Ampicillin/Sulbactam BEN 16 ug/ml: Intermediate Klebsiella pneumoniae ESBL Piperacillin/Tazobactam BEN <=4 ug/ml: Susceptible Klebsiella pneumoniae ESBL Cefazolin (Urine) BEN >=32 ug/ml: Resistant Klebsiella pneumoniae ESBL Cefoxitin BEN <=4 ug/ml: Susceptible Klebsiella pneumoniae ESBL Ceftazidime BEN >=32 ug/ml: Resistant Klebsiella pneumoniae ESBL Ceftriaxone BEN >=64 ug/ml: Resistant Klebsiella pneumoniae ESBL Cefepime BEN >=32 ug/ml: Resistant Klebsiella pneumoniae ESBL Meropenem BEN <=0.25 ug/ml: Susceptible Klebsiella pneumoniae ESBL Amikacin BEN <=1 ug/ml: Susceptible Klebsiella pneumoniae ESBL Gentamicin BEN <=1 ug/ml: Susceptible Klebsiella pneumoniae ESBL Ciprofloxacin BEN 1 ug/ml: Resistant Klebsiella pneumoniae ESBL Levofloxacin BEN 1 ug/ml: Intermediate Klebsiella pneumoniae ESBL Nitrofurantoin BEN 64 ug/ml: Intermediate Klebsiella pneumoniae ESBL Trimethoprim/Sulfamethoxazo le BEN >=320 ug/ml: Resistant Providencia stuartii Ampicillin/Sulbactam BEN >=32 ug/ml: Resistant Providencia stuartii Piperacillin/Tazobactam BEN <=4 ug/ml: Susceptible Providencia stuartii Cefoxitin BEN <=4 ug/ml: Susceptible Providencia stuartii Ceftazidime BEN <=0.5 ug/ml: Susceptible Providencia stuartii Ceftriaxone BEN <=0.25 ug/ml: Susceptible Providencia stuartii Cefepime BEN <=0.12 ug/ml: Susceptible Providencia stuartii Ciprofloxacin BEN >=4 ug/ml: Resistant Providencia stuartii Nitrofurantoin BEN 256 ug/ml: Resistant Providencia stuartii Trimethoprim/Sulfam ethoxazo le BEN 160 ug/ml: Resistant us Hal Cole MD LAB MICROBIOLOGY - GENERAL ORDER MAIA Final Result [facility] [address] [place] [address], [place] [phone] * (ABNORMAL) Comprehensive metabolic panel (07/26/2025 6:51 AM EDT) [facility] Sodium 142 133 - 145 mmol/L LAB CHEMISTRY METHOD 07/26/2025 12:41 PM [facility] Potassium 4.2 3.5 - 5.5 mmol/L LAB CHEMISTRY METHOD 07/26/2025 12:41 PM [facility] Chloride 101 96 - 110 mmol/L LAB CHEMISTRY METHOD 07/26/2025 12:41 PM [facility] CO2 30 21 - 32 mmol/L LAB CHEMISTRY METHOD 07/26/2025 12:41 PM [facility] Anion Gap 11 3 - 11 LAB CHEMISTRY METHOD 07/26/2025 12:41 PM [facility] Glucose 142(H) 70 - 100 mg/dL LAB CHEMISTRY METHOD 07/26/2025 12:41 PM [facility] BUN 79(H) 5 - 25 mg/dL LAB CHEMISTRY METHOD 07/26/2025 12:41 PM [facility] Creatinine 1.78(H) 0.50 - 1.10 mg/dL LAB CHEMISTRY METHOD 07/26/2025 12:41 PM [facility] eGFR 29(L) >=60 mL/min/1. 73m2 LAB CHEMISTRY METHOD 07/26/2025 12:41 PM [facility] Comment:Calculation based on the Chronic Kidney Disease Epidemiology Collaboration (CKD-EPI) equation refit without adjustment for race. BUN/Creatinine Ratio 44.4 LAB CHEMISTRY METHOD 07/26/2025 12:41 PM [facility] Calcium 6.8(L) 8.5 - 10.5 mg/dL LAB CHEMISTRY METHOD 07/26/2025 12:41 PM [facility] AST (SGOT) 11 10 - 42 unit/L LAB CHEMISTRY METHOD 07/26/2025 12:41 PM [facility] ALT (SGPT) 11 10 - 60 unit/L LAB CHEMISTRY METHOD 07/26/2025 12:41 PM [facility] Alkaline Phosphatase 97 42 - 121 unit/L LAB CHEMISTRY METHOD 07/26/2025 12:41 PM [facility] Total Protein 6.0 6.0 - 8.0 g/dL LAB CHEMISTRY METHOD 07/26/2025 12:41 PM [facility] Albumin 2.6(L) 3.2 - 5.0 g/dL LAB CHEMISTRY METHOD 07/26/2025 12:41 PM [facility] Total Bilirubin 0.2 0.0 - 1.4 mg/dL LAB CHEMISTRY METHOD 07/26/2025 12:41 PM [facility] Blood Venous blood specimen / Unknown Venipuncture / Unknown 07/26/2025 6:51 AM EDT 07/26/2025 11:01 AM EDT us Hal Cole MD LAB BLOOD ORDERABLES Final Resul t [facility] [address] [place] [address], from Last 3 Months Additional Health Concerns Infection Onset Date Last Indicated ESBL 08/10/2025 08/10/2025 Insurance MEDICARE Care Teams Kitchen Steward/Stewardess Relationship Specialty Start Date End Date Hal Cole MD [address] [place] [address], [phone] PCP - General Family Medicine 09/15/24
--- OUTSIDE RECORDS SUMMARY | 2025-08-23 20:16 | XMS_ITS | Encounter Summary ---
Author Organization [facility] Address [address] [place] [address] Care Team Providers Care Regulatory Affairs Director Name Role Phone Hal Cole MD Primary Care Provider [phone] Encounter Details Date Type Department Care Team (Late st Contact Info) Description 05/17/2025 Lab Requisition [facility] - Main Lab [address] [facility] [place] [address] Hal Cole MD [address] [place] [address], [phone] Hypokalemia Social History Tobacco Use Types [...] LAB CHEMISTRY METHOD 05/18/2025 10:19 AM EDT [facility] Potassium 3.8 3.5 - 5.5 mmol/L LAB CHEMISTRY METHOD 05/18/2025 10:19 AM EDT [facility] Chloride 97 96 - 110 mmol/L LAB CHEMISTRY METHOD 05/18/2025 10:19 AM [facility] CO2 38(H) 21 - 32 mmol/L LAB CHEMISTRY METHOD 05/18/2025 10:19 AM EDT [facility] Anion Gap 5 3 - 11 LAB CHEMISTRY METHOD 05/18/2025 10:19 AM EDT [facility] Blood Venous blood specimen / Unknown Venipuncture / Unknown 05/18/2025 6:15 AM EDT 05/18/2025 9:39 AM EDT us Hal Cole MD LAB BLOOD ORDERABLES Final Resul t [facility] [address] [place] [address], documented in this encounter Visit Diagnoses Diagnosis Hypokalemia Hypopotassemia documented in this encounter Additional Health Concerns Infection Onset Date Last Indicated Resolved Time ESBL 08/10/2025 08/10/2025 documented as of this encounter Care Teams Regulatory Affairs Director Relationship Specialty Start Date End Date Hal Cole MD [address] [place] [address], [phone] PCP - General Family Medicine 09/15/24 documented as of this encounter
--- OUTSIDE RECORDS SUMMARY | 2025-08-23 20:16 | XMS_ITS | Encounter Summary ---
Author Organization [employer] [facility] [place] [facility] Address [address] [place] [address] Care Team Providers Care Bead Inspector Name Role Phone Hal Cole MD Primary Care Provider [phone] Encounter Details Date Type Department Care Team (Late st Contact Info) Description 05/15/2025 Lab Requisition [facility] - Main Lab [address] [place] [address] Hal Cole MD [address] [place] [address], [phone] Hypokalemia; Anemia in chronic kidney disease [...] LAB CHEMISTRY METHOD 05/15/2025 3:01 PM EDT [facility] Potassium 3.3(L) 3.5 - 5.5 mmol/L LAB CHEMISTRY METHOD 05/15/2025 3:01 PM [facility] Chloride 91(L) 96 - 110 mmol/L LAB CHEMISTRY METHOD 05/15/2025 3:01 PM [facility] CO2 41(HH) 21 - 32 mmol/L LAB CHEMISTRY METHOD 05/15/2025 3:01 PM [facility] Anion Gap 9 3 - 11 LAB CHEMISTRY METHOD 05/15/2025 3:01 PM [facility] Glucose 74 70 - 100 mg/dL LAB CHEMISTRY METHOD 05/15/2025 3:01 PM [facility] BUN 65(H) 5 - 25 mg/dL LAB CHEMISTRY METHOD 05/15/2025 3:01 PM [facility] Creatinine 1.80(H) 0.50 - 1.10 mg/dL LAB CHEMISTRY METHOD 05/15/2025 3:01 PM [facility] eGFR 29(L) >=60 mL/min/1. 73m2 LAB CHEMISTRY METHOD 05/15/2025 3:01 PM [facility] Comment:Calculation based on the Chronic Kidney Disease Epidemiology Collaboration (CKD-EPI) equation refit without adjustment for race. BUN/Creatinine Ratio 36.1 LAB CHEMISTRY METHOD 05/15/2025 3:01 PM [facility] Calcium 7.3(L) 8.5 - 10.5 mg/dL LAB CHEMISTRY METHOD 05/15/2025 3:01 PM [facility] AST (SGOT) 15 10 - 42 unit/L LAB CHEMISTRY METHOD 05/15/2025 3:01 PM [facility] ALT (SGPT) 8(L) 10 - 60 unit/L LAB CHEMISTRY METHOD 05/15/2025 3:01 PM [facility] Alkaline Phosphatase 68 42 - 121 unit/L LAB CHEMISTRY METHOD 05/15/2025 3:01 PM [facility] Total Protein 6.0 6.0 - 8.0 g/dL LAB CHEMISTRY METHOD 05/15/2025 3:01 PM EDT [facility] Albumin 2.9(L) 3.2 - 5.0 g/dL LAB CHEMISTRY METHOD 05/15/2025 3:01 PM EDT [facility] Total Bilirubin 0.4 0.0 - 1.4 mg/dL LAB CHEMISTRY METHOD 05/15/2025 3:01 PM EDT [facility] Blood Venous blood specimen / Unknown Venipuncture / Unknown 05/15/2025 6:04 AM EDT 05/15/2025 11:39 AM EDT us Hal Cole MD LAB BLOOD ORDERABLES Final Resul t [facility] [address] [place] [address], * (ABNORMAL) Complete blood count (05/15/2025 6:04 AM EDT) WBC 6.9 4.8 - 10.8 K/mcL LAB [facility]OLOG[facility] RBC 2.90(L) 3.80 - 4.80 M/mcL LAB HEMETOLOGY METHOD [facility] Hemoglobin 8.1(L) 11.5 - 16.0 g/dL LAB HEMETOLOGY METHOD 05/15/2025 1:15 PM EDT [facility] Hematocrit 28.4(L) 35.0 - 47.0 % LAB HEMETOLOGY METHOD 05/15/2025 1:15 PM EDT [facility] MCV 98.3(H) 79.0 - 98.0 FL LAB HEMETOLOGY METHOD [facility]2025 [facility] MCH 28.0 27.0 - 32.0 pcg LAB HEMETOLOGY METHOD 05/15/2025 1:15 PM EDT [facility] MCHC 28.5(L) 32.0 - 37.0 g/dL LAB HEMETOLOGY METHOD 05/15/2025 1:15 PM EDT [facility] RDW 16.4(H) 11.0 - 15.0 % LAB HEMETOLOGY METHOD 05/15/2025 1:15 PM EDT [facility] Platelets 207 130 - 400 K/mcL LAB HEMETOLOGY METHOD 05/15/2025 1:15 PM EDT [facility] MPV 9.7 7.0 - 11.0 FL LAB HEMETOLOGY METHOD 05/15/2025 1:15 PM EDT [facility] NRBC 0.0 <1.0 % LAB HEMETOLOGY METHOD 05/15/2025 1:15 PM EDT [facility] NRBC Absolute 0.00 <0.10 K/mcL LAB HEMETOLOGY METHOD 05/15/2025 1:15 PM EDT [facility] Blood Venous blood specimen / Unknown Venipuncture / Unknown 05/15/2025 6:04 AM EDT 05/15/2025 11:39 AM EDT us Hal Cole MD LAB BLOOD ORDERABLES Final Resul t [facility] [address] [place] [address], documented in this encounter Visit Diagnoses Diagnosis Hypokalemia Hypopotassemia Anemia in chronic kidney disease (CODE) documented in this encounter Additional Health Concerns Infection Onset Date Last Indicated Resolved Time ESBL 08/10/2025 08/10/2025 documented as of this encounter Care Teams Bead Inspector Relationship Specialty Start Date End Date Hal Cole MD [address] [place] [address] [address] [facility] [phone] PCP - General Family Medicine 09/15/24 documented as of this encounter
--- OUTSIDE RECORDS SUMMARY | 2025-08-23 20:16 | XMS_ITS | Encounter Summary ---
Author Organization [employer] Address [address] [place] [address] Care Team Providers Care Community Outreach Advocate Name Role Phone Hal Cole MD Primary Care Provider [phone] Encounter Details Date Type Department Care Team (Late st Contact Info) Description 06/23/2025 Lab Requisition [facility] - Main Lab [address] [facility] [place] [address] Hal Cole MD [address] [facility] [address] [place], [phone] Anemia, unspecified; Chronic kidney disease, unspecified [...] documented as of this encounter Care Teams Community Outreach Advocate Relationship Specialty Start Date End Date Hal Cole MD [address] [facility] [address] [place], [phone] PCP - General Family Medicine 09/15/24 documented as of this encounter
--- OUTSIDE RECORDS SUMMARY | 2025-08-23 20:17 | XMS_ITS | Encounter Summary ---
Author Organization [employer] [facility] Address [address] [place] [address] Care Team Providers Care Volunteer Coordinator Name Role Phone Hal Cole MD Primary Care Provider [phone] Encounter Details Date Type Department Care Team (Late st Contact Info) Description 08/10/2025 Lab Requisition [facility] - Main Lab [address] [place] [address] Hal Cole MD [address] [place] [address] [address] [place], [address] Painful micturition, unspecified Social History Tobacco Use Types Packs/Day [...] Procedure Name Priority Date/Time Associated Diagnosis Comments URINALYSIS WITH REFLEX MICROSCOPIC Routine 08/10/2025 8:00 AM EDT Painful micturition, unspecified URINALYSIS WITH REFLEX MICROSCOPIC Routine 08/10/2025 8:00 AM EDT Painful micturition, unspecified CULTURE URINE Routine 08/10/2025 8:00 AM EDT Painful micturition, unspecified documented in this encounter Results * (ABNORMAL) Urinalysis with reflex microscopic (08/10/2025 8:00 AM EDT) Specific Gail Urine 1.012 1.003 - 1.030 LAB URINALYSIS - AUTOMATED METHOD 08/10/2025 11:01 AM EDT [facility] pH, Urine 6.0 5.0 - 8.0 pH LAB URINALYSIS - AUTOMATED METHOD 08/10/2025 11:01 AM [facility] Leukocytes, Urine Moderate(A) Negative LAB URINALYSIS - AUTOMATED METHOD 08/10/2025 11:01 AM [facility] Nitrite, Urine Negative Negative LAB URINALYSIS - AUTOMATED METHOD 08/10/2025 11:01 AM [facility] Protein, Urine 100(A) <=Trace mg/dL LAB URINALYSIS - AUTOMATED METHOD 08/10/2025 11:01 AM [facility] Glucose, Urine 500(A) Negative mg/dL LAB URINALYSIS - AUTOMATED METHOD 08/10/2025 11:01 AM [facility] Ketones, Urine Negative Negative mg/dL LAB URINALYSIS - AUTOMATED METHOD 08/10/2025 11:01 AM [facility] Urobilinogen , Urine 0.2 0.2 - 1.0 mg/dL LAB URINALYSIS - AUTOMATED METHOD 08/10/2025 11:01 AM [facility] Bilirubin, Urine Negative Negative LAB URINALYSIS - AUTOMATED METHOD 08/10/2025 11:01 AM [facility] Blood, Urine Trace(A) Negative LAB URINALYSIS - AUTOMATED METHOD 08/10/2025 11:01 AM [facility] RBC, Urine 6.0(H) 0 - 4 /HPF LAB URINALYSIS - AUTOMATED METHOD 08/10/2025 11:01 AM [facility] WBC, Urine 55.2(H) 0 - 4 /HPF LAB URINALYSIS - AUTOMATED METHOD 08/10/2025 11:01 AM [facility] Squamous Epithelial, Urine 4 0 - 60 /LPF LAB URINALYSIS - AUTOMATED METHOD 08/10/2025 11:01 AM EDT [facility] Bacteria, Urine Few(A) Negative /HPF LAB URINALYSIS - AUTOMATED METHOD 08/10/2025 11:01 AM EDT [facility] Hyaline Casts, Urine 0.8 0 - 3 /LPF LAB URINALYSIS - AUTOMATED METHOD 08/10/2025 11:01 AM EDT [facility] Urine Indwelling urinary catheter / Unknown 08/10/2025 8:00 AM EDT 08/10/2025 10:40 AM EDT us Hal Cole MD LAB URINE ORDERABLES Final Resul t [facility] [address] [place] [address], * (ABNORMAL) Culture urine (08/10/2025 8:00 AM EDT) Culture, Urine >=100,000 CFU/mL Klebsiella pneumoniae ESBL(A) BEN 08/13/2025 7:54 AM EDT [facility] Comment: THIS ORGANISM IS POSITIVE FOR EXTENDED SPECTRUM BETA-LACTAMASE (ESBL). EXTENDED SPECTRUM BETA-LACTAMASE PRODUCING ORGANISMS DEMONSTRATE DECREASED ACTIVITY WITH PENICILLINS, CEPHALOSPORINS AND AZTREONAM. This is an edited result. Previous organism was Gram negative bacilli on 08/12/2025 at 1026 EDT. Culture, Urine 10,000-49,000 CFU/mL Providencia stuartii(A) BEN 08/13/2025 7:54 AM EDT [facility] Comment: The organism value for this [...] MICROBIOLOGY - GENERAL ORDER MAIA Final Result [facility] [address] [place] [address], documented in this encounter Visit Diagnoses Diagnosis Painful micturition, unspecified documented in this encounter Additional Health Concerns Infection Onset Date Last Indicated Resolved Time ESBL 08/10/2025 08/10/2025 documented as of this encounter Care Teams Volunteer Coordinator Relationship Specialty Start Date End Date Hal Cole MD [address] [facility] [address] [place], [address] PCP - General Family Medicine 09/15/24 documented as of this encounter
--- OUTSIDE RECORDS SUMMARY | 2025-08-23 20:17 | XMS_ITS | Encounter Summary ---
Author Organization [employer] Address [address] [place] [address] Care Team Providers Care Operations Research Analyst Name Role Phone Hal Cole MD Primary Care Provider [phone] Encounter Details Date Type Department Care Team (Late st Contact Info) Description 08/12/2025 Lab Requisition [facility] - Main Lab [address] [facility] [place] [address] Hal Cole MD [address] [place] [address], [phone] Chronic kidney disease, unspecified; Type 2 diabetes mellitus without complications (CMS/HCC V24, CMS/HCC V28); Heart failure, unspecified (CMS/HCC V24, CMS/HCC V28) Social History [...] Associated Diagnosis Comments COMPLETE BLOOD COUNT Routine 08/14/2025 5:34 AM EDT Chronic kidney disease, unspecified Type 2 diabetes mellitus without complications (CMS/HCC V24, CMS/HCC V28) Heart failure, unspecified (CMS/HCC V24, CMS/HCC V28) BASIC METABOLIC PANEL Routine 08/14/2025 5:34 AM EDT Chronic kidney disease, unspecified Type 2 diabetes mellitus without complications (CMS/HCC V24, CMS/HCC V28) Heart failure, unspecified (CMS/HCC V24, CMS/HCC V28) documented in this encounter Results * (ABNORMAL) Basic metabolic panel (08/14/2025 5:34 AM EDT) Sodium 141 133 - 145 mmol/L LAB CHEMISTRY METHOD 08/14/2025 12:30 PM [facility] Potassium 4.3 3.5 - 5.5 mmol/L LAB CHEMISTRY METHOD 08/14/2025 12:30 PM [facility] Chloride 100 96 - 110 mmol/L LAB CHEMISTRY METHOD 08/14/2025 12:30 PM [facility] CO2 33(H) 21 - 32 mmol/L LAB CHEMISTRY METHOD 08/14/2025 12:30 PM [facility] Anion Gap 8 3 - 11 LAB CHEMISTRY METHOD 08/14/2025 12:30 PM [facility] Glucose 108(H) 70 - 100 mg/dL LAB CHEMISTRY METHOD 08/14/2025 12:30 PM [facility] BUN 68(H) 5 - 25 mg/dL LAB CHEMISTRY METHOD 08/14/2025 12:30 PM [facility] Creatinine 2.00(H) 0.50 - 1.10 mg/dL LAB CHEMISTRY METHOD 08/14/2025 12:30 PM [facility] eGFR 25(L) >=60 mL/min/1. 73m2 LAB CHEMISTRY METHOD 08/14/2025 12:30 PM [facility] Comment:Calculation based on the Chronic Kidney Disease Epidemiology Collaboration (CKD-EPI) equation refit without adjustment for race. BUN/Creatinine Ratio 34.0 LAB CHEMISTRY METHOD 08/14/2025 12:30 PM [facility] Calcium 8.1(L) 8.5 - 10.5 mg/dL LAB CHEMISTRY METHOD 08/14/2025 12:30 PM [facility] Blood Venous blood specimen / Unknown Venipuncture / Unknown 08/14/2025 5:34 AM EDT 08/14/2025 10:54 AM EDT us Hal Cole MD LAB BLOOD ORDERABLES Final Resul t [facility] [address] [place] [address], [place] [phone] * (ABNORMAL) Complete blood count (08/14/2025 5:34 AM EDT) WBC 6.8 4.8 - 10.8 K/mcL LAB HEMETOLOGY METHOD 08/14/2025 11:31 AM EDT [facility] RBC 3.10(L) 3.80 - 4.80 M/mcL LAB HEMETOLOGY METHOD [facility] Hemoglobin 8.8(L) 11.5 - 16.0 g/dL LAB HEMETOLOGY METHOD 08/14/2025 11:31 AM [facility] Hematocrit 30.5(L) 35.0 - 47.0 % LAB HEMETOLOGY METHOD 08/14/2025 11:31 AM [facility] MCV 98.4(H) 79.0 - 98.0 FL LAB HEMETOLOGY METHOD 08/14/2025 11:31 AM [facility] MCH 28.4 27.0 - 32.0 pcg LAB HEMETOLOGY METHOD 08/14/2025 11:31 AM T [facility] MCHC 28.9(L) 32.0 - 37.0 g/dL LAB HEMETOLOGY METHOD 08/14/2025 11:31 AM [facility] RDW 16.3(H) 11.0 - 15.0 % LAB HEMETOLOGY METHOD 08/14/2025 11:31 AM [facility] Platelets 261 130 - 400 K/mcL LAB HEMETOLOGY METHOD 08/14/2025 11:31 AM EDT [facility] MPV 9.5 7.0 - 11.0 FL LAB HEMETOLOGY METHOD 08/14/2025 11:31 AM EDT [facility] NRBC 0.0 <1.0 % LAB HEMETOLOGY METHOD 08/14/2025 11:31 AM EDT [facility] NRBC Absolute 0.00 <0.10 K/mcL LAB HEMETOLOGY METHOD 08/14/2025 11:31 AM EDT [facility] Blood Venous blood specimen / Unknown Venipuncture / Unknown 08/14/2025 5:34 AM EDT 08/14/2025 10:54 AM EDT us Hal Cole MD LAB BLOOD ORDERABLES Final Resul t [facility] [address] [place] [address], documented in this encounter Visit Diagnoses Diagnosis Chronic kidney disease, unspecified Type 2 diabetes mellitus without complications (CMS/HCC V24, CMS/HCC V28) Heart failure, unspecified (CMS/HCC V24, CMS/HCC V28) Heart failure, unspecified documented in this encounter Additional Health Concerns Infection Onset 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
--- OUTSIDE RECORDS SUMMARY | 2025-08-23 20:17 | XMS_ITS | Encounter Summary ---
Author Organization [employer] Address [address] [place] [phone] Care Team Providers Care Vessel Slagman Name Role Phone Hal Cole MD Primary Care Provider [phone] Encounter Details Date Type Department Care Team (Late st Contact Info) Description 08/18/2025 Lab Requisition [facility] - Main Lab [address] [facility] [place] [address] Hal Cole MD [address] [facility] [address] [place], [phone] Chronic kidney disease, unspecified; Type 2 [...] as of this encounter Visit Diagnoses Diagnosis Chronic kidney disease, unspecified Type 2 diabetes mellitus without complications (CMS/HCC V24, CMS/HCC V28) Heart failure, unspecified (CMS/HCC V24, CMS/HCC V28) Heart failure, unspecified documented in this encounter Additional Health Concerns Infection Onset Date Last Indicated Resolved Time ESBL 08/10/2025 08/10/2025 documented as of this encounter Care Teams Vessel Slagman Relationship Specialty Start Date End Date Hal Cole MD [address] [facility] [address] [place], [phone] PCP - General Family Medicine 09/15/24 documented as of this encounter
--- OUTSIDE RECORDS SUMMARY | 2025-08-23 20:17 | XMS_ITS | Data Portability ---
Author Organization [facility], Main Office Address 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 Plan of [...] Organization Details Recorded Time Diastolic heart failure 955602582 Active 2018 Hal Cole MD [address] [facility] [address], [place], [address] , [facility] 9 14:45:31 Dysphagia 60112656 Active 2018 Hal Cole MD [address] [facility] [address], [place], [address] , [facility] 9 14:45:39 Chronic obstructiv e pulmonary disease 28237521 Active 2018 Hal Cole MD [address], [address], [place], [address] , [facility] 9 14:45:48 Essential hypertensi on 97615922 Active 2018 Hal Cole MD [address], [address], [place], [address] , [facility] 9 14:45:53 Diabetes mellitus 10550083 Active 2018 Hal Cole MD [address] , [address], [place], [address] , [employer] [facility] 9 14:45:57 Hyperlipid emia 97169456 Active 2018 Hal Cole MD [address], [place], [address] , [employer] [facility] 9 14:46:04 Obesity 107637018 Active 2018 Hal Cole MD [address] , [address], [place], [address] , [facility] 9 14:46:12 Hypothyroi dism 38381581 Active 2018 Hal Cole MD [address], [address], [place], [address] , [facility] 9 14:50:40 Acute hypoxemic respirator y failure 029796306 Active 2023 ALLAN PRADHAN NP [address], [address], [place], [address] , [facility] 4 10:51:05 Pneumonia 068765877 Active 2023 ALLAN PRADHAN NP [address], [address], [place], [address] , [facility] 4 10:51:21 Pleural effusion 00352194 Active 2023 ALLAN PRADHAN NP [address], [address], [place], [address] , [facility] 4 10:51:43 Gastroesop hageal reflux disease without esophagiti s 172479917 Active 2023 ALLAN PRADHAN NP [address], [address], [place], [address] , [facility] 4 10:53:46 Anxiety 39565269 Active 2023 ALLAN PRADHAN NP [address], [address], [place], [address] , [facility] 4 11:00:09 Chronic kidney disease stage 3 959525057 Active 2023 ALLAN PRADHAN NP [address], [place], [address] , [facility] 4 11:21:29 Chronic pain syndrome 212809273 Active 2023 ALLAN PRADHAN NP [address], [place], [address] , [facility] 4 11:21:39 Acute nontraumat ic kidney injury 138501556699 103 Active 2023 ALLAN PRADHAN NP [address], [place], [address] , [facility] 4 11:23:16 Left bundle branch block 36087853 Active 2023 ALLAN PRADHAN NP [address], [address], [place], [address] , [facility] 4 11:23:30 Pernicious anemia 77468333 Active 2023 ALLAN PRADHAN NP [address], [address], [place], [address] , [facility] 4 11:23:46 Obstructiv e sleep apnea syndrome 03252223 Active 2023 ALLAN PRADHAN NP [address], [address], [place], [address] , [facility] 4 11:47:23 Open wound 885640068 Active 2023 sacral ALLAN PRADHAN NP [address], [address], [place], [address] , [facility] 4 12:05:33 Asthenia 00127318 Active 2023 ALLAN PRADHAN NP [address], [address], [place], [address] , [facility] 4 12:10:47 Acute exacerbati on of chronic obstructiv e pulmonary disease 925573094 Active 2024 Not Available [facility] 5 08:24:02 Hypokalemi a 96806171 Active 2024 Not Available [facility] 5 18:52:21 Anemia in chronic kidney disease 729832927 Active 2024 Not Available [facility] 5 18:52:21 Chronic kidney disease stage 4 090600751 Active 2024 Not Available [facility] 5 08:11:16 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 300529162 Active 2024 Not Available [facility] 5 08:15:08 Pulmonary hypertensi on 24291167 Active 2024 Not Available [facility] 08:16:08 Acute kidney injury 91606885 Active 2024 Not Available [facility] 5 08:18:05 Retention of urine 689157159 Active 2024 Not Available [facility] 5 08:18:06 Extreme obesity with alveolar hypoventil ation 011429587 Active 2024 Not Available [facility] 5 08:20:00 Type 2 diabetes mellitus without complicati on 331331916 Active 2024 Not Available [facility] 5 08:20:34 Acute non-ST segment elevation myocardial infarction 041039013 Active 2024 Not Available [facility] 5 08:24:59 Muscle weakness 28743489 Active 2024 Not Available [facility] 5 09:08:47 Oropharyng eal dysphagia 90294799 Active 2024 Not Available [facility] 5 09:10:38 Chronic hypoxemic respirator y failure 617575247 Active 2024 Not Available [facility] 5 08:07:43 Congestive heart failure 51695500 Active 2024 Not Available [facility] 5 08:10:18 Problem Notes None recorded. Medical Equipment None Reported. Allergies Allergen ID Allergen Name Allergen Category Reaction Reaction Severity Criticality Documentation Date Start Date Code Code System Note Provider Name and Address Organization Details Recorded Time 03468 ibuprofen medicatio n Not available Not available Not available 08/11/20242024 5640 RxNorm Not Available [facility] 18:52:23 35690 codeine medicatio n Not available Not available [...] Details Last Updated DateTime 4 167.64 cm 84799.2 5 g 32.8 kg/m2 74 /min 16 /min 97.9 [degF] 95 % 95 % 133/72 mm[Hg] Eloina Odom NP [address], [address], [place], [address], [place] [facility] 4 08:16:49 Social History Question Answer Notes LastModified by Organizat ion Details LastModified Time Tobacco Smoking Status Former Smoker Not Available [facility] 08/21/2020 03:13:21 Do You Have An Advance Directive? No Full Code [id number] Information not available 08/21/2020 What Is Your Code Status? Full Code [email or web address] Information not available 09/01/2024 Do You Have A Medical Power Of Machine [employer]k Screen [employer]inter? Yes Has HCP [email or web address] Information not available 08/11/2024 What Was The Date Of Your Most Recent Tobacco Screening? 08/11/2024 [email or web address] Information not available 08/11/2024 Do You Have An Out Of Hospital DNR? Yes [email or web address] Information not available 09/01/2024 How Much Tobacco Do You Smoke? 1.5 PPD [id number] Information not available 08/21/2020 Has Tobacco Cessation Counseling Been Provided? No [email or web address] Information not available 08/11/2024 How Many Years Have You Smoked Tobacco? 25 [id number] Information not available 08/21/2020 Sex: Unknown Functional Status Question Answer Note LastModified by Organizat ion Details LastModified Time Do you use any illicit or recreational drugs? No [email or web address] Information not available 08/11/2024 Do you or have you ever used any other forms of tobacco or nicotine? No Information not available 08/11/2024 What is your level of alcohol consumption? None [email or web address] Information not available 08/11/2024 Mental Status None recorded. Family History Relationship Description Onset Age of this Age Resolved Age Notes LastModified by Organization Details LastModified Time Father Disorder of cardiovascul ar system [email or web address] Not available 2023 11:24:15 Medical History No medical history recorded. Gynecological HistoryNo gynecological history recorded. Obstetrics History GPAL:G 0 P 0 0 0 0 Immunizations Vaccine Type Date Status Note Provider Nam e and Address Organization Details Recorded Time influenza, unspecified formulation 11/10/2021 completed Jessica gonsalez [place] - [facility] 08/10/2024 14:21:03 Past Encounters Encounter ID Performer Location Encounter Start Date Encounter Closed Date Diagnosis/Indication Diagnosis SNOMED-CT Code Diagnosis ICD10 Code Diagnosis IMO Codes Diagnosis Note [id number] [facility] [address] [place] [address] [place] [address] 06/01/2019 14:38:26 06/08/2019 15:41:33 Acute hypoxemic respiratory failure 378549035 J96.01 see HPIseconda ry to aspiration dx with dysphagiaC HF exacerbati on with recent dx of diastolic CHFmonitor respirator y functionto be scheduled for sleep study due to concern for OSAtitrate O2 in patient with baseline COPD Diastolic heart failure 226549293 I50.33 see HPIappears chronicall y ill due to multiple co-morbid conditions recent dx with diuresis of 18 liters at prior hospitaliz ationnow onlasix 40 mg bidmonitor weights and fluid statusmoni tor respirator y and renal functionti trate medication s prn Dysphagia 17445875 R13.1 2 see HPIeval by speechnow on ground mech soft dietrepeat speech eval prn Chronic ob structive pulmonary disease 04801582 J41.1 hx tobacco quit > 30 yrs priormonit or respirator y functionto be scheduled for sleep study with concern for OSApulmona ry consult prn Essential hypertension 62346524 I10 norvasc 5 mg qdlasix 40 mg bidmonitor bp and renal function Asthenia 02507912 R53.1 PT OT eval and treatmonit or fall risk Diabetes mellitus 987232 09 E11.9 hx of DMonmetfor min 1000 mg bid with 500 mg q noonglipiz nneka 5 mg bidinsulin SSmonitor blood glucose Hypothyroidism 80440644 E03.8 synthroid 200 mcg qdmonitor tsh prn Hyperlipidemia 06706648 E78.49 gemfibrozi l 600 mg bidlipitor 40 mg qd continue Obesity 652311104 E66.01 dietary eval at baseline [id number] [facility] [address] [place] [address] 06/06/2019 11:35:48 06/08/2019 16:08:53 Hypoxia 048380865 R09.02 send to ER for this d/t sat 50% on O2 with chest pain. Acute kidney injury 1466 9001 N17.9 likely d/t overdiures is. had been on lasix 40 bid, sending to ER, may need this held. Acute hypo xemic respiratory failure 840270907 J96.01 see HPIseconda ry to aspiration dx with dysphagiaC HF exacerbati on with recent dx of diastolic CHFmonitor respirator y functionto be scheduled for sleep study due to concern for OSAtitrate O2 in patient with baseline COPD Diastolic heart failure 518019496 I50.33 see HPIappears chronicall y ill due to multiple co-morbid conditions recent dx with diuresis of 18 liters at prior hospitaliz ationhere was on:lasix 40 mg bid*Now appearing dry- may need to hold diuretics at hospital. Dysphagia 33067586 R13.1 2 see HPIeval by speechnow on ground [facility] soft dietrepeat speech eval prn Chronic ob structive pulmonary disease 46790739 J41.1 hx tobacco quit > 30 yrs priorsendi ng to ER for hypoxia, chest pain, ARF [id number] ALLAN PRAD[facility] [address] [facility] [place] [address] 08/11/2024 10:50:24 08/15/2024 09:32:52 Acute hypoxemic respiratory failure 552838741 J96.01 [place] related to COPD and acute on chronic CHF.Respon ded well to interventi ons in hosp.Chuck nue O2 @ 2L - chronic use.Contin ue inhalers for COPD, bumex for CHF.Monito r closely Chronic ob structive pulmonary disease 29560766 J41.1 Treated for exac. in hosp. with nebs and steroids with improvemen t.Continue O2 - uses 2L chronicall y at home.Chuck nue:duoneb prnalbuter ol MDI prn - at bedside for self administra tion.Monit or sats, resp. status for change. Pneumonia 930622922 J18. 9 Treated with ceftriaxon e and azithromyc in x 7 days with improvemen t, transition ed to Augmentin 875 mg bid x 3d and Doxy 100 mg bid x 3d upon d/c to complete a 10 day course of tx.Monitor resp. sx. Diastolic heart failure 596421526 I50.33 Treated with IV lasix in hosp., changed back to bumex 2 mg qd with improvemen t in condition. Continue bumexHeart healthy/lo w salt dietDaily VS and weightsLab s q mond. 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 if no sx. Anxiety 79781222 F41.9 Continue home meds:cymba lta 20 mg qdativan 0.5 mg tid prn (x14d, then re-eval)Ps ych referral PRNMonitor mood, behaviors Chronic ki dney disease stage 3 469256943 N18.30 Monitor labs - BMP q mond. x 3Maintain hydrationA void nephrotoxi cs Chronic pain syndrome 37 2472409 G89.4 Continue:c ymbalta 20 mg qdoxycodon e 5 mg q8 hr prnPt. states chronic low back pain, knee pain, and sacral pain due to a fractured tailbone at 20 yrs. of age) Obstructiv e sleep apnea syndrome 06371041 G47.33 Per pt.Does not use CPAP, instead wears O2 2L RTC at home. Asthenia 87142077 R53.1 Deconditio rosana due to hospitaliz ation and chronic medical conditions .PT OT eval and tx.Goal is to return home. Open wound 223447494 T14 .8XXA Open wound sacral area - [...] with minerals dailyDieta ry supplement s per assistant front office manager Concern of potential breakdown on heels as does not allow pillow under legs to float heels due to chronic sacral pain from old fracture. Can try heel boots if cyndi. to help reduce pressure as well as skin prep qd.Monitor closely. [id number] Hal Cole MD [address] [address] 08/15/2024 12:44:18 08/17/2024 11:09:33 Asthenia 07679534 R53.1 PT OT Eval and treatmonit or fall risk and need for increased support in community Acute hypo xemic respiratory failure 915139301 J96.01 see HPI due to CHF, COPD, pneumoniao n O2 at baselinemo nitor respirator y status and need to repeat imaging Chronic ob structive pulmonary disease 26929075 J44.1 On O2 at baselineco mpleted steroid coursecont inue outpatient medsmonito r respirator y status Pneumonia 883849180 J15. 8 see HPI now to complete doxy and augmentinm onitor need to reimage Diastolic heart failure 485741283 I50.33 required IV lasix in hospital now onbumex 2 mg qdmonitor respirator y and fluid statusnote d ARF on CRF Diabetes mellitus 138439 09 E11.9 continue out patient medsmonito r need to titrate Hyperlipidemia 75645118 E78.49 medication s adjusted in hospital now onlipitor 40 mg qd Hypothyroidism 59701960 E03.8 synthroid 200 mcg qdtsh prn Gastroesop hageal reflux disease without esophagitis 278347838 K21.9 recently started on PPImonitor need to continuetr ial off in 2-4 weeks Acute kidney injury 1466 9001 N17.8 ARF on CRFmonitor renal functionav oid nephrotoxi c meds as ablenephro consult prn [id number] ALLAN PRADHAN NP [facility] [address] 08/16/2024 11:32:50 08/24/2024 10:16:43 Asthenia 88419112 R53.1 Deconditio rosana due to hospitaliz ation and chronic medical conditions .Continue PT OT eval and tx.Goal is to return home. Acute hypo xemic respiratory failure 906542570 J96.01 [place] related to COPD and acute on chronic CHF.Respon ded well to interventi ons in hosp.Chuck nue O2 @ 2L - chronic use.Contin ue inhalers for COPD, bumex for CHF.Monito r closely Chronic ob structive pulmonary disease 09836199 J41.1 Treated for exac. in hosp. with nebs and steroids with improvemen t.Continue O2 - uses 2L chronicall y at home.Chuck nue:duoneb prnalbuter ol MDI prn - at bedside for self administra tion.Monit or sats, resp. status for change. Pneumonia 697121943 J18. 9 Treated with ceftriaxon e and azithromyc in x 7 days with improvemen t, transition ed to Augmentin 875 mg bid x 3d and Doxy 100 mg bid x 3d upon d/c to complete a 10 day course of tx.Monitor resp. sx. Diastolic heart failure 914789768 I50.33 Treated with IV lasix in hosp., changed back to bumex 2 mg qd with improvemen t in condition. Continue bumexHeart healthy/lo w salt dietDaily VS and weights (reminded nursing of daily weights and record)Lab s q mond. x 3Follow for decompensa tion Pleural effusion 0678678 8 J90 s/p thoracente sismonitor Chronic ki dney disease stage 3 044166477 N18.30 Monitor labs - BMP q mond. 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 if no sx. Anxiety 18894812 F41.9 Continue home meds:cymba lta 20 mg qdativan 0.5 mg tid prn (x14d, then re-eval)Ps h referral PRNMonitor mood, behaviors Chronic pain syndrome 37 3351776 G89.4 Continue:c ymbalta 20 mg qdoxycodon e 5 mg q8 hr prnPt. states chronic low back pain, knee pain, and sacral pain due to a fractured tailbone at 20 yrs. of age) Obstructiv e sleep apnea syndrome 90967771 G47.33 Per pt.Does not use CPAP, instead wears O2 2L RTC at home. Open wound 851986379 T14 .8XXA Open wound sacral area - developed in hosp.Suspe ct started first as MASD due to chronic incontinen ce, now with opening in skin.Plan -Continue: Triad cream q shift and prnPressur e relief as much as possibleRe ferred to Wound PA-CMVI with minerals daily addedDieta ry supplement s per assistant front office manager - currently on glucerna bid. Concern of potential breakdown on heels as does not allow pillow under legs to float heels due to chronic sacral pain from old fracture. Can try heel boots if cyndi. to help reduce pressure as well as skin prep qd.Monitor closely. [id number] ALLAN PRADHAN NP [facility] [address] [place] [address] 08/23/2024 10:50:36 08/24/2024 10:28:22 Asthenia 27541917 R53.1 Deconditio rosana due to hospitaliz ation and chronic medical conditions .PT OT eval and tx., making gains.Goal is to return home. Acute hypo xemic respiratory failure 322773663 J96.01 [place] related to COPD and acute on chronic CHF.Respon ded well to interventi ons in hosp., currently stable.Con tinue O2 @ 2L - chronic use.Contin ue inhalers for COPD, bumex for CHF.Monito r closely Chronic ob structive pulmonary disease 41699672 J41.1 Treated for exac. in hosp. with nebs and steroids with adamaris wright.Continue O2 - uses 2L chronicall y at home.Chuck nue:duoneb prnalbuter ol MDI prn - at bedside for self administra tion.Monit or sats, resp. status for change. Pneumonia 190775614 J18. 9 Treated with ceftriaxon e and azithromyc in x 7 days with adamaris t, transition ed to Augmentin 875 mg bid x 3d and Doxy 100 mg bid x 3d upon d/c to complete a 10 day course of tx.Resolvi ng, continue to monitor resp. sx. Diastolic heart failure 006835115 I50.33 Treated with IV lasix in hosp., changed back to bumex 2 mg qd with adamaris t in condition. Continue bumexHeart healthy/lo w salt dietDaily VS and weights (reminded nursing again of daily weights and record)Lab s q mond. x 3Follow for decompensa tion Pleural effusion 2377362 8 J90 s/p thoracente sismonitor Chronic ki dney disease stage 3 823848677 N18.30 Monitor labs - BMP q mond. x 2 more timesMaint ain hydrationA void nephrotoxi cs Diabetes mellitus 590544 09 E11.9 A1C 7.6%BS mostly 100sContin ue home meds:basag lar 15 units qdjardianc e 10 mg qdlispro SSICarb control dietAdjust meds prn Essential hypertension 68595942 I10 Continue home meds:norva sc 10 mg qdbumex 2 mg qdMoniotor VS, labs, adjust meds prn Hyperlipidemia 51564548 E78.49 continue atorvastat in 40 mg qdgemfibro zil stopped due to interventi on with lipitor LF Ts WNRLipid panel if stays shelter Hypothyroidism 89860923 E03.8 Continue levothyrox ine 200 mcg qdTSH, FT4 prn Gastroesop hageal reflux disease without esophagitis 798974522 K21.9 ??started omeprazole 20 mg qd while in the hospitalmo nitor GI sx.conside r stopping in 6 wks. if no sx. Anxiety 26304288 F41.9 Continue home meds:cymba lta 20 mg qdativan 0.5 mg tid prn (x14d, then re-eval)Ps h referral PRNMonitor mood, behaviors Chronic pain syndrome 37 7749095 G89.4 Continue:c ymbalta 20 mg qdoxycodon e 5 mg q8 hr prnPt. states chronic low back pain, knee pain, and sacral pain due to a fractured tailbone at 20 yrs. of age) Obstructiv e sleep apnea syndrome 00395729 G47.33 Per pt.Does not use CPAP, instead wears O2 2L RTC at home. Open wound 220461589 T14 .8XXA Open wound sacral area - developed in hosp.Suspe ct started first as MASD due to chronic incontinen ce, now with opening in skin.Plan -Continue: Triad cream q shift and prnPressur e relief as much as possibleRe ferred to Wound PA-CMVI with minerals daily addedDieta ry supplement s per assistant front office manager - currently on glucerna bid. Concern of potential breakdown on heels as does not allow pillow under legs to float heels due to chronic sacral pain from old fracture. Can try heel boots if cyndi. to help reduce pressure as well as skin prep qd.Monitor closely. Constipation 88984678 K5 9.00 discussed with VALENTIN, last BM 3 days ago.add miralax daily, start today.enco urage OOB, fiber, fluids [id number] ALLAN PRADHAN, [facility] [address] [place] [address] 09/01/2024 12:36:05 09/02/2024 11:15:18 Asthenia 88564340 R53.1 Deconditio rosana due to hospitaliz ation and chronic medical conditions .PT OT eval and tx., making gains.Goal is to return home. Acute hypo xemic respiratory failure 052251133 J96.01 [place] related to COPD and acute on chronic CHF.Respon ded well to interventi ons in hosp., currently stable.Con tinue O2 @ 2L - chronic use.Contin ue inhalers for COPD, bumex for CHF.Monito r closely Chronic ob structive pulmonary disease 92124008 J41.1 Treated for exac. in hosp. with nebs and steroids with adamaris wright.Continue O2 - uses 2L chronicall y at home.Chuck nue:ducarab prnalbuter ol MDI prn - at bedside for self administra tion.Monit or sats, resp. status for change. Pneumonia 287828878 J18. 9 Treated with ceftriaxon e and azithromyc in x 7 days with adamaris wright, transition ed to Augmentin 875 mg bid x 3d and Doxy 100 mg bid x 3d upon d/c to complete a 10 day course of tx.Resolvi ng, continue to monitor resp. sx. Diastolic heart failure 685931520 I50.33 Treated with IV lasix in hosp., changed back to bumex 2 mg qd with adamaris wright in condition. Continue bumexHeart healthy/lo w salt dietDaily VS and weights (reminded nursing AGAIN of daily weights and record)Lab s q mond. x 3Follow for decompensa tion Pleural effusion 4631882 8 J90 s/p thoracente sismonitor Chronic ki dney disease stage 3 708958525 N18.30 Monitor labs - BMP q mond. x 2 more timesMaint ain hydrationA void nephrotoxi cs Diabetes mellitus 818152 09 E11.9 A1C 7.6%BS mostly 100sContin ue home meds:basag lar 15 units qdjardianc e 10 mg qdlispro SSICarb control dietAdjust meds prn Essential hypertension 27545454 I10 Continue home meds:norva sc 10 mg qdbumex 2 mg qdMoniotor VS, labs, adjust meds prn Hyperlipidemia 45194888 E78.49 continue atorvastat in 40 mg qdgemfibro zil stopped due to interventi on with lipitor LF Ts WNRLipid panel if stays shelter Hypothyroidism 78789030 E03.8 Continue levothyrox ine 200 mcg qdTSH, FT4 prn Gastroesop hageal reflux disease without esophagitis 779015184 K21.9 ??started omeprazole 20 mg qd while in the hospitalmo nitor GI sx.conside r stopping in 6 wks. if no sx. Anxiety 84733406 F41.9 Continue home meds:cymba lta 20 mg qdativan 0.5 mg tid prn (x14d, then re-eval)Ps [facility] PRNMonitor mood, behaviors Chronic pain syndrome 37 3767655 G89.4 Continue:c ymbalta 20 mg qdoxycodon e 5 mg q8 hr prnPt. states chronic low back pain, knee pain, and sacral pain due to a fractured tailbone at 20 yrs. of age) Obstructiv e sleep apnea syndrome 71510452 G47.33 Per pt.Does not use CPAP, instead wears O2 2L RTC at home. Open wound 383776693 T14 .8XXA Open wound sacral area - developed in hosp.Sus[place] ct started first as MASD due to chronic incontinen ce, now with opening in skin.Plan -Continue: Triad cream q shift and prnPressur e relief as much as possibleRe ferred to Wound PA-CMVI with minerals daily addedDieta ry supplement s per assistant front office manager - currently on glucerna bid. Concern of potential breakdown on heels as does not allow pillow under legs to float heels due to chronic sacral pain from old fracture. Can try heel boots if cyndi. to help reduce pressure as well as skin prep qd.Monitor closely. Constipation 73712848 K5 9.00 Bowels still sluggishAl ready on miralax, now add senna-s 2 tabs daily, hold for loose stool.enco urage OOB, fiber, fluidsCont inue to monitor and adjust. [id number] ALLAN PRADHAN NP [address] [place] [address] 09/06/2024 14:01:29 09/07/2024 10:12:43 Asthenia 71748745 R53.1 Deconditio rosana due to hospitaliz ation and chronic medical conditions .PT OT eval and tx., making gains.Goal is to return home. Acute hypo xemic respiratory failure 175396684 J96.01 Randleman related to COPD and acute on chronic CHF.Respon ded well to interventi ons in hosp., currently stable.Con tinue O2 @ 2L - chronic use.Contin ue inhalers for COPD, bumex for CHF.Monito r closely Chronic ob structive pulmonary disease 38804067 J41.1 Treated for exac. in hosp. with nebs and steroids with adamaris t.Continue O2 - uses 2L chronicall y at home.Chuck nue:duoneb prnalbuter ol MDI prn - at bedside for self administra tion.Monit or sats, resp. status for change. Pneumonia 890779694 J18. 9 Treated with ceftriaxon e and azithromyc in x 7 days with adamaris t, transition ed to Augmentin 875 mg bid x 3d and Doxy 100 mg bid x 3d upon d/c to complete a 10 day course of tx.Resolvi ng, continue to monitor resp. sx. Diastolic heart failure 404409768 I50.33 Treated with IV lasix in hosp., changed back to bumex 2 mg qd with adamaris t in condition. Continue bumexHeart healthy/lo w salt dietDaily VS and weights (reminded nursing AGAIN of daily weights and record)CBC , BMP in am x 1Follow for decompensa tion Pleural effusion 3607896 8 J90 s/p thoracente sismonitor Chronic ki dney disease stage 3 970625138 N18.30 Monitor labs - BMP x 1 in amMaintain hydrationA void nephrotoxi cs Diabetes mellitus 344877 09 E11.9 A1C 7.6%BS mostly 100s - 200sContin ue home meds:basag lar 15 units qdjardianc e 10 mg qdlispro SSICarb control dietAdjust meds prn Essential hypertension 66263072 I10 Continue home meds:norva sc 10 mg qdbumex 2 mg qdMoniotor VS, labs, adjust meds prn Hyperlipidemia 74254387 E78.49 continue atorvastat in 40 mg qdgemfibro zil stopped due to interventi on with lipitor LF Ts WNRLipid panel 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 if no sx. Anxiety 87200386 F41.9 Continue home meds:cymba lta 20 mg qdativan 0.5 mg tid prn (x14d, then re-eval)Ps ych referral PRNMonitor mood, behaviors Chronic pain syndrome 37 8031195 G89.4 Continue:c ymbalta 20 mg qdoxycodon e 5 mg q8 hr prnPt. states chronic low back pain, knee pain, and sacral pain due to a fractured tailbone at 20 yrs. of age) Obstructiv e sleep apnea syndrome 07039224 G47.33 Per pt.Does not use CPAP, instead wears O2 2L RTC at home. Open wound 180760150 T14 .8XXA Open wound sacral area - [...] minerals daily addedDieta ry supplement s per assistant front office manager - currently on glucerna bid. Concern of potential breakdown on heels as does not allow pillow under legs to float heels due to chronic sacral pain from old fracture. Can try heel boots if cyndi. to help reduce pressure as well as skin prep qd.Monitor closely. Constipation 93485060 K5 9.00 No BM since 08/31 if documentat ion correct.MN N bowel meds not used.Curre ntly on miralax daily.Torrey a-s 2 tabs bid ordered 09/01, currently not on MARAbdomen distended. Plan -Fleets nowMag Citrate 1/2 bottle today, repeat 1/2 bottle in am if poor results.In crease miralax to bidRe-orde r senna-s 2 tabs bid, hold for loose stoolMonit or closely.en courage OOB, fiber, fluidsCont inue to monitor and adjust. [id number] ALLAN PRADHAN NP [address] [address] 09/08/2024 13:47:32 09/09/2024 11:13:19 Constipation 48753359 K59.00 No BM since 08/31 if documentat ion correct.MN N bowel meds had not been utilized. Mag Citrate and fleets ordered with very good results. Now on:Miralax bidSenna-s 2 tabs bid Plan -Continue current laxativesE ncourage OOB, fiber, fluidsCont inue to monitor closely and adjust PRN Asthenia 04443297 R53.1 Deconditio rosana due to hospitaliz ation and chronic medical conditions .PT OT eval and tx., making gains.Goal is to return home. Open wound 882030197 T14 .8XXA Open wound sacral area - [...] minerals daily addedDieta ry supplement s per assistant front office manager - currently on glucerna bid. Concern of potential breakdown on heels as does not allow pillow under legs to float heels due to chronic sacral pain from old fracture. Can try heel boots if cyndi. to help reduce pressure as well as skin prep qd.Monitor closely. Acute hypo xemic respiratory failure 104898999 J96.01 Randleman related to COPD and acute on chronic CHF.Respon ded well to interventi ons in hosp., currently stable.Con tinue O2 @ 2L - chronic use.Contin ue inhalers for COPD, bumex for CHF.Monito r closely Chronic ob structive pulmonary disease 31510852 J41.1 Treated for exac. in hosp. with nebs and steroids with adamaris t.Continue O2 - uses 2L chronicall y at home.Chuck nue:duoneb prnalbuter ol MDI prn - at bedside for self administra tion.Monit or sats, resp. status for change. Pneumonia 928466379 J18. 9 Treated with ceftriaxon e and azithromyc in x 7 days with adamaris t, transition ed to Augmentin 875 mg bid x 3d and Doxy 100 mg bid x 3d upon d/c to complete a 10 day course of tx.Resolvi ng, continue to monitor resp. sx. Diastolic heart failure 480088327 I50.33 Treated with IV lasix in hosp., changed back to bumex 2 mg qd with adamaris t in condition. Continue bumexHeart healthy/lo w salt dietDaily VS and weights (reminded nursing AGAIN of daily weights and record)CBC , BMP in am x 1Follow for decompensa tion Pleural effusion 1882976 8 J90 s/p thoracente sismonitor Chronic ki dney disease stage 3 709735927 N18.30 Monitor labs - BMP x 1 in amMaintain hydrationA void nephrotoxi cs Diabetes mellitus 713027 09 E11.9 A1C 7.6%BS mostly 100s - 200sContin ue home meds:basag lar 15 units qdjardianc e 10 mg qdlispro SSICarb control dietAdjust meds prn Essential hypertension 72744800 I10 Continue home meds:norva sc 10 mg qdbumex 2 mg qdMoniotor VS, labs, adjust meds prn Hyperlipidemia 28150932 E78.49 continue atorvastat in 40 mg qdgemfibro zil stopped due to interventi on with lipitor LF Ts WNRLipid panel if stays shelter Hypothyroidism 02444992 E03.8 Continue levothyrox ine 200 mcg qdTSH, FT4 prn Gastroesop hageal reflux disease without esophagitis 697040894 K21.9 ??started omeprazole 20 mg qd while in the hospitalmo nitor GI sx.conside r stopping in 6 wks. if no sx. Anxiety 54584371 F41.9 Continue home meds:cymba lta 20 mg qdativan 0.5 mg tid prn (x14d, then re-eval)Ps [facility] referral PRNMonitor mood, behaviors Chronic pain syndrome 37 3630224 G89.4 Continue:c ymbalta 20 mg qdoxycodon e 5 mg q8 hr prnPt. states chronic low back pain, knee pain, and sacral pain due to a fractured tailbone at 20 yrs. of age) Obstructiv e sleep apnea syndrome 86555515 G47.33 Per pt.Does not use CPAP, instead wears O2 2L RTC at home. [id number] [facility] [address] 09/14/2024 09:01:39 09/15/2024 09:07:05 Constipation 28309423 K59.00 resolvedMa g Citrate and fleets ordered with very good results.Miralax daily09/14 change Senna-s 2 tabs from bid to dailyEncou rage OOB, fiber, fluidsCont inue to monitor closely and adjust PRN Asthenia 55981456 R53.1 Deconditio rosana due to hospitaliz ation and chronic medical conditions .PT OT eval and tx., making gains.Goal is to return home. Open wound 704993097 T14 .8XXA Open wound sacral area - [...] with minerals dailyDieta ry supplement s per assistant front office manager - currently on glucerna bid. Concern of potential breakdown on heels as does not allow pillow under legs to float heels due to chronic sacral pain from old fracture. Can try heel boots if cyndi. to help reduce pressure as well as skin prep qd.Monitor closely. Acute hypo xemic respiratory failure 728168518 J96.01 Randleman related to COPD and acute on chronic CHF.Respon ded well to interventi ons in hosp., currently stable.Con tinue O2 @ 2L - chronic use.Contin ue inhalers for COPD, bumex for CHF.Monito r closely Chronic ob structive pulmonary disease 40200278 J41.1 Treated for exac. in hosp. with nebs and steroids with improvemen t.Continue O2 - uses 2L chronicall y at home.Chuck nue:duoneb prnalbuter ol MDI prn - at bedside for self administra tion.Monit or sats, resp. status for change. Pneumonia 450806509 J18. 9 resolvedTr eated with ceftriaxon e and azithromyc in x 7 days with improvemen t, transition ed to Augmentin 875 mg bid x 3d and Doxy 100 mg bid x 3d upon d/c to complete a 10 day course of tx.Resolvi ng, continue to monitor resp. sx.monitor for need to repeat cxr if resp symptoms persist/re turn Diastolic heart failure 907255883 I50.33 Treated with IV lasix in hosp.,mehdi contreras back to bumex 2 mg qd with improvemen t in condition. Heart healthy/lo w salt dietDaily VS and weightspt currently 218, will need another weight(8 lb increase since admit)nsg awareFollo w for decompensa tionmonito rbmp and cbc maggi 09/15 Pleural effusion 5966170 8 J90 stable without increased work of breathings /p thoracente sis from hospmonito r Chronic ki dney disease stage 3 193016566 N18.30 bmp and cbc as above, monitor need to continueMa intain hydrationA void nephrotoxi cs Diabetes mellitus 390600 09 E11.9 A1C 7.6%BS mostly 100s - 200sContin ue :basaglar 15 units qdjardianc e 10 mg qdlispro SSICarb control dietAdjust meds prn Essential hypertension 06852580 I10 Continue:n orvasc 10 mg qdbumex 2 mg qdMoniotor VS, labs, adjust meds prn Hyperlipidemia 82951917 E78.49 continueat orvastatin 40 mg qdgemfibro zil stopped due to interventi on with lipitor LF Ts WNRLipid panel if stays shelter Hypothyroidism 58278303 E03.8 Continuele vothyroxin e 200 mcg qdTSH, FT4 prn Gastroesop hageal reflux disease without esophagitis 755443032 K21.9 contomepra zole 20 mg qd (? started while in the hospital)m onitor GI sx.conside r stopping in 6 wks. if no sx. Anxiety 04090707 F41.9 Continue :cymbalta 20 mg qdativan 0.5 mg tid prn (x14d, then re-eval)ev al on sych referral PRNMonitor mood, behaviors Chronic pain syndrome 37 4380505 G89.4 Continue:c ymbalta 20 mg qdoxycodon e 5 mg q8 hr prnPt. states chronic low back pain, knee pain, and sacral pain due to a fractured tailbone at 20 yrs. of age) Obstructiv e sleep apnea syndrome 86350854 G47.33 Per pt.Does not use CPAP, instead wears O2 2L RTC at home. [id number] Carlee Amezcua MD [address] [address] 09/27/2024 20:05:35 09/28/2024 10:42:39 Diastolic heart failure 524178939 I50.33 Appears euvolemic. Last wt on 09/24 was down 5# from previous wt.Daily wts have been ordered 4 times and not being done.Wts ordered for M/W/FConti nue Bumex 2 mg qd.Monitor resp. status, fluid status, wts and labs. Asthenia 30984607 R53.1 Improved back to baseline per pt.Unclear if rehab agrees.Molina villareal have SS consult with rehab and pt tomorrow to see if ready for d/c. Open wound 832686477 T14 .8XXA Resolved.C ontinue good skin care to prevent reopening. Acute hypo xemic respiratory failure 512160973 J96.01 Resolved.A s above. Chronic ob structive pulmonary disease 69319975 J41.1 Back to baseline per pt.Continu e atrovent 2 puffs q 6 hrs prn.Contin ue supplement al O2 titrated to sats >90%Monito r resp status. Pleural effusion 3188802 8 J90 Thought to be due to PNA and CHF.Txed with abxs and thoracente sis.No f/u needed unless increased sxs.Monito r resp status Chronic ki dney disease stage 3 140713357 N18.32 Back to baseline.C ontinue to avoid nephrotoxi c meds as able.Monit or labs.Renal consult prn. Diabetes mellitus 496158 09 E11.9 Sugars in adequate control.Co ntinue basaglar 15 units qd, jardiance 10 mg qd and SSIMonitor fingerstic ks TID and HgA1C q 3 months. Essential hypertension 88122968 I10 In good control since here.Chuck nue amlodipine 10 mg qd and bumex 2 mg qdMonitor BP and labs. Hyperlipidemia 13621478 E78.49 Continue atorvastat in 40 mg qdMonitor labs as outpt Hypothyroidism 21548653 E03.8 Continue levothyrox ine 200 mcg qdI can't find a TSH in [facility] or [facility] systems.Wi order for AM Gastroesop hageal reflux disease without esophagitis 443634120 K21.9 No current sxs.Contin ue omeprazole 20 mg qdMonitor GI sx. Pneumonia 963757149 J18. 9 Resolved Anxiety 89971937 F41.1 Mood good tonight.Co ntinue Cymbalta 20 mg qd and lorazepam 0.5 mg TID prn.Monito r mood.Psych following. Chronic pain syndrome 37 0442992 G89.4 Continue meds as above and oxycodone 5 mg q 8 hrs prn and APAP 650 mg q 4 hrs prn.Monito r sxs. Obstructiv e sleep apnea syndrome 63997542 G47.33 Not on CPAP.F/U as outpt. [id number] Eloina Odom NP [facility] [address] 09/30/2024 08:15:34 10/03/2024 13:20:59 Diastolic heart failure 380225648 I50.33 Appears euvolemic. weight 203 on 09/24 last, down approx 5 lbs hereweight daily at homeContin ue Bumex 2 mg qd.Monitor resp. status, fluid status, at home with services and pcp outpt Asthenia 94573884 R53.1 Improved back to baseline per pt.Unclear if rehab agrees but pt insistent on going home.Pt able to walk approx 75 feet with walker and at baseline prior to hospitaliz ationmonit or with pcp outpt Chronic ob structive pulmonary disease 02719988 J41.1 Back to baseline per pt.Continu e atrovent 2 puffs q 6 hrs prn.Contin ue supplement al O2 2at liters baseline and titrated to sats >90%Monito r resp status outpt with pcp and services Pleural effusion 8267876 8 J90 Thought to be due to PNA and CHF.Txed with abxs and thoracente sis.No f/u needed unless increased sxs.Monito r resp status outpt with pcp Acute hypo xemic respiratory failure 639818100 J96.01 Resolved.A s above. Chronic ki dney disease stage 3 399542492 N18.32 Back to baseline. cr 1.5-1.9Con tinue to avoid nephrotoxi c meds as able.Monit or labs outpt with pcpRenal consult prn outpt Diabetes mellitus 996878 09 E11.9 Sugars in adequate control.mo stly 100-200sCo ntinue basaglar 15 units qd, jardiance 10 mg qd and SSIMonitor fingerstic ks TID and HgA1C q 3 months with pcp outpt Essential hypertension 34655212 I10 In good control since here.Chuck nue amlodipine 10 mg qd and bumex 2 mg qdMonitor BP and labs outpt with pcp prn Hyperlipidemia 92785429 E78.49 Continue atorvastat in 40 mg qdMonitor outpt with pcp Open wound 346972247 T14 .8XXA Resolved.C ontinue good skin care to prevent reopening. Hypothyroidism 93038272 E03.8 Continue levothyrox ine 200 mcg qdmonitor oupt with pcp Gastroesop hageal reflux disease without esophagitis 694162035 K21.9 No current sxs.Contin ue omeprazole 20 mg qdMonitor GI sx. outpt with pcp Pneumonia 267959813 J18. 9 Resolved Anxiety 37718938 F41.1 Mood good tonight.Co ntinue Cymbalta 20 mg qd and lorazepam 0.5 mg TID prn.Monito r mood outpt with pcp Chronic pain syndrome 37 2587537 G89.4 Continue meds as above and oxycodone 5 mg q 8 hrs prn and APAP 650 mg q 4 hrs prn.Monito r sxs. 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 249736 pt on both lokelma and kcl suppk 3.4 on 05/22op both lokelma and kclrepeat bmp on thu to see where she is at before adding anything back Chronic di astolic heart failure 699060905 I50.32 385097 inpt stay for chf exaccont lasix 40 mg bidnot on chloe/arb/bb for goal directed medical therapysta rt wts twice weeklymoni tor wts, labs, fluid status Diabetes mellitus 200751 09 E11.9 sugars are labile 90-300scon t jardiance 10 mg dailyincre ase to glargine 30 units qhscont accuchecks tid with lispro ss Hyperlipidemia 08045133 E78.49 cont lipitor 40 mg dailylipid s outpt Hypothyroidism 71527370 E03.8 cont synthroid 200 mcg dailythyro id panel outpt Obesity 648981234 E66.01 dietary eval on admitmonit or wtsprovide education on wt reduction Gastroesop hageal reflux disease without esophagitis 634451907 K21.9 cont scheduled antacidsmo nitor ss Dysphagia 22769883 R13.1 2 MBS while inptconsul t METHODS ANALYST DATA PROCESSING to followcont current diet, adjust as tolerateds tart aspiration precaution s Chronic ki dney disease stage 3 158605305 N18.32 baseline cre 1.5-1.9 in dec, stableavoi d nephrotoxi c meds as ableon diuretics for chfwill consult renal if needed Chronic ob structive pulmonary disease 95524919 J41.1 treated inpt for copd exacremain s on supp O2wean as toleratedR T to followcont prednisone taper (ends 05/27)cont duoneb q4h scheduled and q4h prnmonitor resp status [id number] BIRD MARTINEZ NP-C [facility] [address] [place], [place] [address] 05/23/2025 09:11:20 05/27/2025 20:13:35 Disorder of electrolytes 692026174 E87.8 979802 pt on both lokelma and kcl suppk 3.4 on 05/22op both lokelma and kclrepeat bmp on thu to see where she is at before adding anything back Diastolic heart failure 523093838 I50.33 inpt stay for chf exacno recorded wt on this ptlabs stable 05/22cont lasix 40 mg bidnot on chloe/arb/bb for goal directed medical therapywil l order wts twice weeklymoni tor wts, labs, fluid status Diabetes mellitus 427804 09 E11.9 sugars are labile 90-300scon t jardiance 10 mg dailyincre ase to glargine 30 units qhscont accuchecks tid with lispro ss Chronic ob structive pulmonary disease 61106478 J41.1 treated inpt for copd exacremain s on supp O2wean as toleratedR T to followcont prednisone taper (ends 05/27)cont duoneb q4h scheduled and q4h prnmonitor resp status [id number] MD ROMARIO Faith [address] [place] [address] 05/24/2025 10:32:54 05/27/2025 21:01:56 Acute exacerbation of chronic obstructive pulmonary disease 414772559 J44.1 1050031 s/p intubation 4 weeks ago from pneumonias low prednisone taper (10mg decrease every 4days)nebu lized albuterol 4h?? LAMA Primary hypothyroidism 31710432 E03.9 93938 levothyrox ine 200mcg daily Pulmonary hypertension 41011222 I27.20 4052 Benign ess ential hypertension 1034493 I10 3379 amlodipine 5mg daily / furosemide [...] r/arm Mixed anxi ety and depressive disorder 060417214 F41.9 F32.A 337246 sertraline 75mg dailyloraz epam 0m5 mg bid and PRN lorazepam Extreme ob esity with alveolar hypoventilation 192683586 E66.2 History of methicillin resistant Staphylococcus aureus infection 831253586 Z86.14 7284126 Dependence on continuous supplemental oxygen 0271457861 9103 Z99.81 20854249 Type 2 kenia betes mellitus 74192510 E11.59 2577519 insulin glargine 25U daily + lispro ISS/ jardiance 10mg dailyexpec t variance with slow prednisone taper 05/24/2025 12:26 354.0 mg/dL [id number] (Manual) 08:59 270.0 mg/dL tonedp67 (Manual) 08:59 270.0 mg/dL dxsila74 (Manual) 19:10 331.0 mg/dL osarong (Manual) 19:10 331.0 mg/dL osarong (Manual) 12:08 274.0 mg/dL ncassista (Manual) 09:36 102.0 mg/dL ncassista (Manual) 07:44 102.0 mg/dL ncassista (Manual) 17:48 308.0 mg/dL ajsmith (Manual) 17:48 308.0 mg/dL ajsmith (Manual) 09:28 99.0 mg/dL ajsmith (Manual) 09:28 99.0 mg/dL Chronic he art failure co-occurrent with normal ejection fraction 0555386595 102 I50.32 3847837201 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 / COPD / pulmonary hypertensi ondiuretic / jardiance 10 mg Gastroesop hageal reflux disease without esophagitis 630034050 K21.9 357322 on scheduled antacids 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 7864707655 03 E11.69 E78.2 13775731 gemfibrozi l 600mg bid / atorvastat in 40mg daily For resuscitation 675750 001 Z78.9 2327553 [id number] ZULAY MILNER, CHIO [facility] [address] [place] [address] 05/24/2025 22:27:24 05/29/2025 03:51:47 Anxiety 82934177 F41.1 Continue ativanPsyc h consult prn Chronic ob structive pulmonary disease 32480383 J41.1 Continue prednisone as orderedCon tinue proventil [...] ID Guarantor Name 05/15/2025 1 MEDICARE B-[place]: [employer] Radhika Vaca [id number] Radhika Vaca 05/27/2025 2 [place] [facility] Radhika Vaca [id number] Radhika Vaca Notes Date Note Type Note [...] transferred here for STR. Since here at [facility]: She had a sacral wound treated [...] her home with o2. She is aware psychosocial rehabilitation counselor is working on a plan and she will follow with pcp outpt. Breathing non labored. Eloina Odom NP [address], [address], [place], [address], [facility] 09/30/2024 08:56:26 05/16/2025 text/html ROS as noted in the HPI Pt is a 79 yo female being seen for initial intake visit. She represented to the ER with sob and required intubation and an ICU admission. They felt resp failure was dt a COPD exac, from a rapid taper in [facility]. Patient seen today. She reports breathing has [...] ulcer of the sacrum/coccyx ANANYA GIPSON [address], [address], [place], [address], [facility] 05/31/2025 10:30:53 05/23/2025 text/html Pt is a [...] ulcer of the sacrum/coccyx ANANYA GIPSON [address], [address], [place], [address], [facility] 05/23/2025 12:32:05 05/24/2025 text/html Reporting increased pain to coccyx to rehab. Refuses workup for pain which is a barrier, seen by physiatry. Nursing to recommend psych follow up. Has not yet stood up with rehab, has only sat at edge of bed for 30 seconds- 1 minute. Max-dependent for all ADL care. 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 Resident with increased anxiety r/t O2 levels, CO2 retainer, requests O2 increases but cannot tolerate. PRN Ativan ordered x 14 days then re-evaluate ZULAY MILNER NP [address], [address], [place], [address], [facility] 05/24/2025 23:02:16 05/24/2025 text/html ROS as noted in the HPI 79yo F admitted to [facility] from [facility] May [...] with her son who is her primary director of managed care. Mario Loyd MD [address], [address], [place], [address], [facility] 05/24/2025 12:55:34 OBGyn Episode No OBEpisode recorded.
--- OUTSIDE RECORDS SUMMARY | 2025-08-23 20:17 | XMS_ITS | Encounter Summary ---
Author Organization [employer] Address [address] [place] [address] Care Team Providers Care Body And Fender Mechanic Name Role Phone Hal Cole MD Primary Care Provider [phone] Encounter Details Date Type Department Care Team (Late st Contact Info) Description 08/08/2025 Lab Requisition [facility] - Main Lab [address] [facility] [place] [address] Hal Cole MD [address] [place] [address], [phone] Heart failure, unspecified (CMS/HCC V24, CMS/HCC V28); Type 2 diabetes mellitus without complications (CMS/HCC V24, CMS/HCC V28); Chronic kidney disease, unspecified Social History Tobacco [...] Associated Diagnosis Comments COMPLETE BLOOD COUNT Routine 08/08/2025 5:10 AM EDT Heart failure, unspecified (CMS/HCC V24, CMS/HCC V28) Type 2 diabetes mellitus without complications (CMS/HCC V24, CMS/HCC V28) Chronic kidney disease, unspecified BASIC METABOLIC PANEL Routine 08/08/2025 5:10 AM EDT Heart failure, unspecified (CMS/HCC V24, CMS/HCC V28) Type 2 diabetes mellitus without complications (CMS/HCC V24, CMS/HCC V28) Chronic kidney disease, unspecified documented in this encounter Results * (ABNORMAL) Basic metabolic panel (08/08/2025 5:10 AM EDT) Sodium 141 133 - 145 mmol/L LAB CHEMISTRY METHOD 08/08/2025 8:11 AM [facility] Potassium 4.2 3.5 - 5.5 mmol/L LAB CHEMISTRY METHOD 08/08/2025 8:11 AM [facility] Chloride 102 96 - 110 mmol/L LAB CHEMISTRY METHOD 08/08/2025 8:11 AM [facility] CO2 31 21 - 32 mmol/L LAB CHEMISTRY METHOD 08/08/2025 8:11 AM [facility] Anion Gap 8 3 - 11 LAB CHEMISTRY METHOD 08/08/2025 8:11 AM [facility] Glucose 196(H) 70 - 100 mg/dL LAB CHEMISTRY METHOD 08/08/2025 8:11 AM [facility] BUN 74(H) 5 - 25 mg/dL LAB CHEMISTRY METHOD 08/08/2025 8:11 AM [facility] Creatinine 1.61(H) 0.50 - 1.10 mg/dL LAB CHEMISTRY METHOD 08/08/2025 8:11 AM [facility] eGFR 33(L) >=60 mL/min/1. 73m2 LAB CHEMISTRY METHOD 08/08/2025 8:11 AM [facility] Comment:Calculation based on the Chronic Kidney Disease Epidemiology Collaboration (CKD-EPI) equation refit without adjustment for race. BUN/Creatinine Ratio 46.0 LAB CHEMISTRY METHOD 08/08/2025 8:11 AM [facility] Calcium 8.0(L) 8.5 - 10.5 mg/dL LAB CHEMISTRY METHOD 08/08/2025 8:11 AM [facility] Blood Venous blood specimen / Unknown Venipuncture / Unknown 08/08/2025 5:10 AM EDT 08/08/2025 7:28 AM EDT us Hal Cole MD LAB BLOOD ORDERABLES Final Resul t [facility] [address] [place] [address], [place] [phone] * (ABNORMAL) Complete blood count (08/08/2025 5:10 AM EDT) WBC 7.4 4.8 - 10.8 K/mcL LAB HEMETOLOGY METHOD 08/08/2025 7:46 AM EDT [facility] RBC 3.10(L) 3.80 - 4.80 M/mcL LAB HEMETOLOGY METHOD 08/08/2025 7:46 AM EDT [facility] Hemoglobin 8.7(L) 11.5 - 16.0 g/dL LAB HEMETOLOGY METHOD 08/08/2025 7:46 AM EDT [facility] Hematocrit 29.8(L) 35.0 - 47.0 % LAB HEMETOLOGY METHOD 08/08/2025 7:46 AM EDT [facility] MCV 95.8 79.0 - 98.0 FL LAB HEMETOLOGY METHOD 08/08/2025 7:46 AM EDT [facility] MCH 28.0 27.0 - 32.0 pcg LAB HEMETOLOGY METHOD 08/08/2025 7:46 AM EDT [facility] MCHC 29.2(L) 32.0 - 37.0 g/dL LAB HEMETOLOGY METHOD 08/08/2025 7:46 AM EDT [facility] RDW 15.9(H) 11.0 - 15.0 % LAB [facility]EM[facility]OLOGY [facility] Platelets 301 130 - 400 K/mcL LAB HEMETOLOGY METHOD 08/08/2025 7:46 AM EDT [facility] MPV 9.5 7.0 - 11.0 FL LAB HEMETOLOGY METHOD 08/08/2025 7:46 AM EDT [facility] NRBC 0.0 <1.0 % LAB HEMETOLOGY METHOD 08/08/2025 7:46 AM EDT [facility] NRBC Absolute 0.00 <0.10 K/mcL LAB HEMETOLOGY METHOD 08/08/2025 7:46 AM EDT [facility] Blood Venous blood specimen / Unknown Venipuncture / Unknown 08/08/2025 5:10 AM EDT 08/08/2025 7:28 AM EDT us Hal Cole MD LAB BLOOD ORDERABLES Final Resul t [facility] [address] [place] [address], documented in this encounter Visit Diagnoses Diagnosis Heart failure, unspecified (CMS/HCC V24, CMS/HCC V28) Heart failure, unspecified Type 2 diabetes mellitus without complications (CMS/HCC V24, CMS/HCC V28) Chronic kidney disease, unspecified documented in this encounter Additional Health Concerns Infection Onset Date Last Indicated Resolved Time ESBL 08/10/2025 08/10/2025 documented as of this encounter Care Teams Body And Fender Mechanic Relationship Specialty Start Date End Date Hal Cole MD [address] [place] [address], [phone] PCP - General Family Medicine 09/15/24 documented as of this encounter
--- OUTSIDE RECORDS SUMMARY | 2025-08-23 20:17 | XMS_ITS | Encounter Summary ---
Author Organization [facility] Address [address] [place] [address] Care Team Providers Care Publications Editor Name Role Phone Hal Cole MD Primary Care Provider [phone] Encounter Details Date Type Department Care Team (Late st Contact Info) Description 05/25/2025 Lab Requisition [facility] - Main Lab [address] [place] [address] Hal Cole MD [address] [place] [address], [phone] Hypokalemia Social History Tobacco Use Types [...] LAB CHEMISTRY METHOD 05/25/2025 9:14 AM EDT [facility] Potassium 3.4(L) 3.5 - 5.5 mmol/L LAB CHEMISTRY METHOD 05/25/2025 9:14 AM EDT [facility] Chloride 99 96 - 110 mmol/L LAB CHEMISTRY METHOD 05/25/2025 9:14 AM EDT [facility] CO2 33(H) 21 - 32 mmol/L LAB CHEMISTRY METHOD 05/25/2025 9:14 AM [facility] Anion Gap 6 3 - 11 LAB CHEMISTRY METHOD 05/25/2025 9:14 AM [facility] Glucose 219(H) 70 - 100 mg/dL LAB CHEMISTRY METHOD 05/25/2025 9:14 AM [facility] BUN 71(H) 5 - 25 mg/dL LAB CHEMISTRY METHOD 05/25/2025 9:14 AM [facility] Creatinine 1.37(H) 0.50 - 1.10 mg/dL LAB CHEMISTRY METHOD 05/25/2025 9:14 AM [facility] eGFR 40(L) >=60 mL/min/1. 73m2 LAB CHEMISTRY METHOD 05/25/2025 9:14 AM [facility] Comment:Calculation based on the Chronic Kidney Disease Epidemiology Collaboration (CKD-EPI) equation refit without adjustment for race. BUN/Creatinine Ratio 51.8 LAB CHEMISTRY METHOD 05/25/2025 9:14 AM [facility] Calcium 7.6(L) 8.5 - 10.5 mg/dL LAB CHEMISTRY METHOD 05/25/2025 9:14 AM [facility] Blood Venous blood specimen / Unknown Venipuncture / Unknown 05/25/2025 5:43 AM EDT 05/25/2025 8:23 AM EDT us Hal Cole MD LAB BLOOD ORDERABLES Final Resul t [facility] [address] [place] [address], documented in this encounter Visit Diagnoses Diagnosis Hypokalemia Hypopotassemia documented in this encounter Additional Health Concerns Infection Onset Date Last Indicated Resolved Time ESBL 08/10/2025 08/10/2025 documented as of this encounter Care Teams Publications Editor Relationship Specialty Start Date End Date Hal Cole MD [address] [facility] [address] [place], [phone] PCP - General Family Medicine 09/15/24 documented as of this encounter
--- OUTSIDE RECORDS SUMMARY | 2025-08-23 20:17 | XMS_ITS | Encounter Summary ---
Author Organization [employer] [facility] Address [address] [place] [address] Care Team Providers Care Plastics Seasoner Operator Name Role Phone Hal Cole MD Primary Care Provider [phone] Encounter Details Date Type Department Care Team (Late st Contact Info) Description 07/29/[address] [facility] - Main Lab [address] [facility] [place] [address] Hal Cole MD [address] [place] [address] [address] [place], [phone] Chronic kidney disease, unspecified Social History Tobacco [...] documented as of this encounter Care Teams Plastics Seasoner Operator Relationship Specialty Start Date End Date Hal Cole MD [address] [facility] [address] [place], [phone] PCP - General Family Medicine 09/15/24 documented as of this encounter
--- OUTSIDE RECORDS SUMMARY | 2025-08-23 20:17 | XMS_ITS | Encounter Summary ---
Author Organization [employer] Address [address] [place] [address] Care Team Providers Care Informatics Developer Name Role Phone Hal Cole MD Primary Care Provider Encounter Details Date Type Department Care Team (Late st Contact Info) Description 07/26/2025 Lab Requisition [facility] - Main Lab [address] [place] [address] Hal Cole MD [address] [place] [address], [phone] Chronic kidney disease, unspecified Social History [...] Associated Diagnosis Comments COMPLETE BLOOD COUNT Routine 07/26/2025 6:51 AM EDT Chronic kidney disease, unspecified COMPREHENSIVE METABOLIC PANEL Routine 07/26/2025 6:51 AM EDT Chronic kidney disease, unspecified documented in this encounter Results * (ABNORMAL) Comprehensive metabolic panel (07/26/2025 6:51 AM EDT) Sodium 142 133 - 145 mmol/L LAB CHEMISTRY METHOD 07/26/2025 12:41 PM EDT [facility] Potassium 4.2 3.5 - 5.5 mmol/L LAB CHEMISTRY METHOD 07/26/2025 12:41 PM EDT [facility] Chloride 101 96 - 110 mmol/L LAB CHEMISTRY METHOD 07/26/2025 12:41 PM [facility] CO2 30 21 - 32 mmol/L LAB CHEMISTRY METHOD 07/26/2025 12:41 PM [facility] Anion Gap 11 3 - 11 LAB CHEMISTRY METHOD 07/26/2025 12:41 PM [facility] Glucose 142(H) 70 - 100 mg/dL LAB CHEMISTRY METHOD 07/26/2025 12:41 PM [facility] BUN 79(H) 5 - 25 mg/dL LAB CHEMISTRY METHOD 07/26/2025 12:41 PM [facility] Creatinine 1.78(H) 0.50 - 1.10 mg/dL LAB CHEMISTRY METHOD 07/26/2025 12:41 PM [facility] eGFR 29(L) >=60 mL/min/1. 73m2 LAB CHEMISTRY METHOD 07/26/2025 12:41 PM [facility] Comment:Calculation based on the Chronic Kidney Disease Epidemiology Collaboration (CKD-EPI) equation refit without adjustment for race. BUN/Creatinine Ratio 44.4 LAB CHEMISTRY METHOD 07/26/2025 12:41 PM [facility] Calcium 6.8(L) 8.5 - 10.5 mg/dL LAB CHEMISTRY METHOD 07/26/2025 12:41 PM [facility] AST (SGOT) 11 10 - 42 unit/L LAB CHEMISTRY METHOD 07/26/2025 12:41 PM [facility] ALT (SGPT) 11 10 - 60 unit/L LAB CHEMISTRY METHOD 07/26/2025 12:41 PM [facility] Alkaline Phosphatase 97 42 - 121 unit/L LAB CHEMISTRY METHOD 07/26/2025 12:41 PM [facility] Total Protein 6.0 6.0 - 8.0 g/dL LAB CHEMISTRY METHOD 07/26/2025 12:41 PM [facility] Albumin 2.6(L) 3.2 - 5.0 g/dL LAB CHEMISTRY METHOD 07/26/2025 12:41 PM EDT [facility] Total Bilirubin 0.2 0.0 - 1.4 mg/dL LAB CHEMISTRY METHOD 07/26/2025 12:41 PM EDT [facility] Blood Venous blood specimen / Unknown Venipuncture / Unknown 07/26/2025 6:51 AM EDT 07/26/2025 11:01 AM EDT us Hal Cole MD LAB BLOOD ORDERABLES Final Resul t [facility] [address] [place] [address], [place] [phone] * (ABNORMAL) Complete blood count (07/26/2025 6:51 AM EDT) WBC 9.5 4.8 - 10.8 K/mcL LAB HEMETOLOGY METHOD 07/26/2025 12:39 PM T [facility] RBC 2.80(L) 3.80 - 4.80 M/mcL LAB HEMETOLOGY METHOD 07/26/2025 12:39 PM [facility] Hemoglobin 7.8(L) 11.5 - 16.0 g/dL LAB HEMETOLOGY METHOD 07/26/2025 12:39 PM EDT [facility] Hematocrit 27.1(L) 35.0 - 47.0 % LAB HEMETOLOGY [facility] MCV 95.8 79.0 - 98.0 FL LAB HEMETOLOGY METHOD 07/26/2025 12:39 PM [facility] MCH 27.6 27.0 - 32.0 pcg LAB HEMETOLOGY METHOD 07/26/2025 12:39 PM [facility] MCHC 28.8(L) 32.0 - 37.0 g/dL LAB HEMETOLOGY METHOD 07/26/2025 12:39 PM EDT [facility] RDW 16.4(H) 11.0 - 15.0 % LAB HEMETOLOGY METHOD 07/26/2025 12:39 PM EDT [facility] Platelets 418(H) 130 - 400 K/mcL LAB HEMETOLOGY METHOD 07/26/2025 12:39 PM EDT [facility] MPV 9.1 7.0 - 11.0 FL LAB HEMETOLOGY METHOD 07/26/2025 12:39 PM EDT [facility] NRBC 0.0 <1.0 % LAB HEMETOLOGY METHOD 07/26/2025 12:39 PM EDT [facility] NRBC Absolute 0.00 <0.10 K/mcL LAB HEMETOLOGY METHOD 07/26/2025 12:39 PM EDT [facility] Blood Venous blood specimen / Unknown Venipuncture / Unknown 07/26/2025 6:51 AM EDT 07/26/2025 11:01 AM EDT us Hal Cole MD LAB BLOOD ORDERABLES Final Resul t [facility] [address] [place] [address], documented in this encounter Visit Diagnoses Diagnosis Chronic kidney disease, unspecified documented in this encounter Additional Health Concerns Infection Onset Date Last Indicated Resolved Time ESBL 08/10/2025 08/10/2025 documented as of this encounter Care Teams Informatics Developer Relationship Specialty Start Date End Date Hal Cole MD [address] [place] [address] [address] [place], [phone] PCP - General Family Medicine 09/15/24 documented as of this encounter
--- OUTSIDE RECORDS SUMMARY | 2025-08-23 20:17 | XMS_ITS | Encounter Summary ---
Author Organization [email or web address] Address [address] [place] [address] Care Team Providers Care Occupational Health Nurse Manager Name Role Phone Hal Cole MD Primary Care Provider [phone] Encounter Details Date Type Department Care Team (Late st Contact Info) Description 09/15/2024 Lab Requisition [facility] - Main Lab [address] [place] [address] Hal Cole MD [address] [place] [address], [phone] Chronic obstructive pulmonary disease, unspecified (CMS/HCC [...] AM EST) WBC 7.4 4.8 - 10.8 /[facility] LAB HEMETOLOGY METHOD 09/15/2024 8:25 AM [facility] RBC 3.70(L) 3.80 - 4.80 M/mcL LAB HEMETOLOGY METHOD 09/15/2024 8:25 AM [facility] Hemoglobin 10.6(L) 11.5 - 16.0 g/dL LAB HEMETOLOGY METHOD 09/15/2024 8:25 AM [facility] Hematocrit 35.5 35.0 - 47.0 % LAB HEMETOLOGY METHOD 09/15/2024 8:25 AM [facility] MCV 95.4 79.0 - 98.0 FL LAB HEMETOLOGY METHOD 09/15/2024 8:25 AM [facility] MCH 28.5 27.0 - 32.0 pcg LAB HEMETOLOGY METHOD 09/15/2024 8:25 AM [facility] MCHC 29.9(L) 32.0 - 37.0 g/dL LAB HEMETOLOGY METHOD 09/15/2024 8:25 AM [facility] RDW 13.3 11.0 - 15.0 % LAB HEMETOLOGY METHOD 09/15/2024 8:25 AM [facility] Platelets 245 130 - 400 K/mcL LAB HEMETOLOGY METHOD 09/15/2024 8:25 AM [facility] MPV 9.5 7.0 - 11.0 FL LAB HEMETOLOGY METHOD 09/15/2024 8:25 AM [facility] NRBC 0.0 <1.0 % LAB HEMETOLOGY METHOD 09/15/2024 8:25 AM [facility] NRBC Absolute 0.00 <0.10 K/mcL LAB HEMETOLOGY METHOD 09/15/2024 8:25 AM [facility] Neutrophils Relative 73.5 % LAB HEMETOLOGY METHOD 09/15/2024 8:25 AM [facility] Lymphocytes Relative 14.3 % LAB HEMETOLOGY METHOD 09/15/2024 8:25 AM [facility] Monocytes Relative 6.0 % LAB HEMETOLOGY METHOD 09/15/2024 8:25 AM [facility] Eosinophils Relative 4.8 % LAB HEMETOLOGY METHOD 09/15/2024 8:25 AM [facility] Basophils Relative 0.7 % LAB HEMETOLOGY METHOD 09/15/2024 8:25 AM [facility] Immature Granulocytes Relative 0.7 % LAB HEMETOLOGY METHOD 09/15/2024 8:25 AM [facility] Neutrophils Absolute 5.41 1.50 - 7.00 K/mcL LAB HEMETOLOGY METHOD 09/15/2024 8:25 AM [facility] Lymphocytes Absolute 1.05 1.00 - 5.00 K/mcL LAB HEMETOLOGY METHOD 09/15/2024 8:25 AM [facility] Monocytes Absolute 0.44 0.20 - 1.00 K/mcL LAB HEMETOLOGY METHOD 09/15/2024 8:25 AM [facility] Eosinophils Absolute 0.35 0.00 - 0.50 K/mcL LAB HEMETOLOGY METHOD 09/15/2024 8:25 AM [facility] Basophils Absolute 0.05 0.00 - 0.20 K/mcL LAB HEMETOLOGY METHOD 09/15/2024 8:25 AM [facility] Immature Granulocytes Absolute 0.05(H) 0.00 - 0.03 K/mcL LAB HEMETOLOGY METHOD 09/15/2024 8:25 AM [facility] Blood Venous blood specimen / Unknown Venipuncture / Unknown 09/15/2024 5:17 AM EST 09/15/2024 8:04 AM EST Hal Cole MD LAB BLOOD ORDERABLES Final Resul t [facility] [address] [place] [address], * (ABNORMAL) Basic metabolic panel (09/15/2024 5:17 AM EST) Sodium 141 133 - 145 mmol/L LAB CHEMISTRY METHOD 09/15/2024 9:01 AM [facility] Potassium 3.7 3.5 - 5.5 mmol/L LAB CHEMISTRY METHOD 09/15/2024 9:01 AM [facility] Chloride 104 96 - 110 mmol/L LAB CHEMISTRY METHOD 09/15/2024 9:01 AM [facility] CO2 32 21 - 32 mmol/L LAB CHEMISTRY METHOD 09/15/2024 9:01 AM [facility] Anion Gap 5 3 - 11 LAB CHEMISTRY METHOD 09/15/2024 9:01 AM [facility] Glucose 187(H) 70 - 100 mg/dL LAB CHEMISTRY METHOD 09/15/2024 9:01 AM [facility] BUN 57(H) 5 - 25 mg/dL LAB CHEMISTRY METHOD 09/15/2024 9:01 AM [facility] Creatinine 1.92(H) 0.50 - 1.10 mg/dL LAB CHEMISTRY METHOD 09/15/2024 9:01 AM [facility] eGFR 27(L) >=60 mL/min/1. 73m2 LAB CHEMISTRY METHOD 09/15/2024 9:01 AM [facility] Comment:Calculation based on the Chronic Kidney Disease Epidemiology Collaboration (CKD-EPI) equation refit without adjustment for race. BUN/Creatinine Ratio 29.7 LAB CHEMISTRY METHOD 09/15/2024 9:01 AM [facility] Calcium 8.4(L) 8.5 - 10.5 mg/dL LAB CHEMISTRY METHOD 09/15/2024 9:01 AM EST [facility] Blood Venous blood specimen / Unknown Venipuncture / Unknown 09/15/2024 5:17 AM EST 09/15/2024 8:04 AM EST us Hal Cole MD LAB BLOOD ORDERABLES Final Resul t [facility] [address] [place] [address], documented in this encounter Visit Diagnoses Diagnosis Chronic obstructive pulmonary disease, unspecified (CMS/HCC V24, CMS/HCC V28) documented in this encounter Additional Health Concerns Infection Onset Date Last Indicated Resolved Time ESBL 08/10/2025 08/10/2025 documented as of this encounter Care Teams Occupational Health Nurse Manager Relationship Specialty Start Date End Date Hal Cole MD [address] [place] [phone] PCP - General Family Medicine 09/15/24 documented as of this encounter
--- OUTSIDE RECORDS SUMMARY | 2025-08-23 20:17 | XMS_ITS | Encounter Summary ---
Author Organization [employer] Address [address] [place] [address] Care Team Providers Care Category Development Manager Name Role Phone Hal Cole MD Primary Care Provider [phone] Encounter Details Date Type Department Care Team (Late st Contact Info) Description 05/26/2025 Lab Requisition [facility] - Main Lab [address] [facility] [place] [address] Hal Cole MD 38 [facility] [address] [place], [phone] Hypokalemia; Anemia in chronic kidney disease (CODE) [...] documented as of this encounter Care Teams Category Development Manager Relationship Specialty Start Date End Date Hal Cole MD [address] [facility] [address] [place], [phone] PCP - General Family Medicine 09/15/24 documented as of this encounter
--- OUTSIDE RECORDS SUMMARY | 2025-08-23 20:17 | XMS_ITS | Encounter Summary ---
Author Organization [employer] Address [address] [place] [address] Care Team Providers Care Pediatric Surgeon Name Role Phone Hal Cole MD Primary Care Provider Encounter Details Date Type Department Care Team (Late st Contact Info) Description 08/27/2024 Lab Requisition [facility] - Main Lab [address] [facility] [place] [address] Hal Cole MD [address] [place] [address], [phone] Type 2 diabetes mellitus without complications [...] Travel phlebotomy fee (08/29/2024 5:30 AM EST) [facility] HOME TRAVEL PHLEBOTOMY FEE Completed 08/29/2024 10:01 AM [facility] Blood Venous blood specimen / Unknown Venipuncture / Unknown 08/29/2024 5:30 AM EST 08/29/2024 9:51 AM EST us Hal Cole MD LAB BLOOD ORDERABLES Final Resul t [facility] [address] [place] [address], * (ABNORMAL) Basic metabolic panel (08/29/2024 5:30 AM EST) [facility] Sodium 137 133 - 145 mmol/L LAB CHEMISTRY METHOD 08/29/2024 10:57 AM [facility] Potassium 5.0 3.5 - 5.5 mmol/L LAB CHEMISTRY METHOD 08/29/2024 10:57 AM [facility] Comment:Hemolysis present Chloride 101 96 - 110 mmol/L LAB CHEMISTRY METHOD 08/29/2024 10:57 AM [facility] CO2 29 21 - 32 mmol/L LAB CHEMISTRY METHOD 08/29/2024 10:57 AM [facility] Anion Gap 7 3 - 11 LAB CHEMISTRY METHOD 08/29/2024 10:57 AM [facility] Glucose 156(H) 70 - 100 mg/dL LAB CHEMISTRY METHOD 08/29/2024 10:57 AM [facility] BUN 62(H) 5 - 25 mg/dL LAB CHEMISTRY METHOD 08/29/2024 10:57 AM [facility] Creatinine 1.63(H) 0.50 - 1.10 mg/dL LAB CHEMISTRY METHOD 08/29/2024 10:57 AM [facility] eGFR 33(L) >=60 mL/min/1. 73m2 LAB CHEMISTRY METHOD 08/29/2024 10:57 AM EST [facility] Comment:Calculation based on the Chronic Kidney Disease Epidemiology Collaboration (CKD-EPI) equation refit without adjustment for race. BUN/Creatinine Ratio 38.0 LAB CHEMISTRY METHOD 08/29/2024 10:57 AM [facility] Calcium 8.8 8.5 - 10.5 mg/dL LAB CHEMISTRY METHOD 08/29/2024 10:57 AM [facility] Blood Venous blood specimen / Unknown Venipuncture / Unknown 08/29/2024 5:30 AM EST 08/29/2024 9:51 AM EST us Hal Cole MD LAB BLOOD ORDERABLES Final Resul t [facility] [address] [place] [address], * (ABNORMAL) Complete blood count (08/29/2024 5:30 AM EST) WBC 8.4 4.8 - 10.8 K/mcL LAB HEMETOLOGY METHOD 08/29/2024 10:59 AM [facility] RBC 4.00 3.80 - 4.80 M/mcL LAB HEMETOLOGY METHOD 08/29/2024 10:59 AM [facility] Hemoglobin 11.6 11.5 - 16.0 g/dL LAB HEMETOLOGY METHOD 08/29/2024 10:59 AM [facility] Hematocrit 39.0 35.0 - 47.0 % LAB HEMETOLOGY METHOD 08/29/2024 10:59 AM [facility] MCV 98.5(H) 79.0 - 98.0 FL LAB HEMETOLOGY METHOD 08/29/2024 10:59 AM [facility] MCH 29.3 27.0 - 32.0 pcg LAB HEMETOLOGY METHOD 08/29/2024 10:59 AM EST [facility] MCHC 29.7(L) 32.0 - 37.0 g/dL LAB HEMETOLOGY METHOD 08/29/2024 10:59 AM [facility] RDW 13.5 11.0 - 15.0 % LAB HEMETOLOGY METHOD 08/29/2024 10:59 AM [facility] Platelets 308 130 - 400 K/mcL LAB HEMETOLOGY METHOD 08/29/2024 10:59 AM [facility] MPV 9.9 7.0 - 11.0 FL LAB HEMETOLOGY METHOD 08/29/2024 10:59 AM [facility] NRBC 0.0 <1.0 % LAB HEMETOLOGY METHOD 08/29/2024 10:59 AM [facility] NRBC Absolute 0.00 <0.10 K/mcL LAB HEMETOLOGY METHOD 08/29/2024 10:59 AM [facility] Blood Venous blood specimen / Unknown Venipuncture / Unknown 08/29/2024 5:30 AM EST 08/29/2024 9:51 AM EST us Hal Cole MD LAB BLOOD ORDERABLES Final Resul t [facility] [address] [place] [address], documented in this encounter Visit Diagnoses Diagnosis Type 2 diabetes mellitus without complications (CMS/HCC V24, CMS/HCC V28) Chronic obstructive pulmonary disease, unspecified (CMS/HCC V24, CMS/HCC V28) documented in this encounter Additional Health Concerns Infection Onset Date Last Indicated Resolved Time ESBL 08/10/2025 08/10/2025 documented as of this encounter Care Teams Pediatric Surgeon Relationship Specialty Start Date End Date Hal Cole MD [address] [place] [address], [phone] PCP - General Family Medicine 09/15/24 documented as of this encounter
--- OUTSIDE RECORDS SUMMARY | 2025-08-23 20:17 | XMS_ITS | Encounter Summary ---
Author Organization [facility] Address [address] [place] [address] Care Team Providers Care Underwriting Manager Name Role Phone Hal Cole MD Primary Care Provider [phone] Encounter Details Date Type Department Care Team (Late st Contact Info) Description 09/21/2024 Lab Requisition [facility] - Main Lab [address] [place] [address] Hal Cole MD [address] [place] [address], [phone] Chronic kidney disease, unspecified Social History [...] mmol/L LAB CHEMISTRY METHOD 09/21/2024 12:11 PM [facility] Anion Gap 10 3 - 11 LAB CHEMISTRY METHOD 09/21/2024 12:11 PM [facility] Glucose 126(H) 70 - 100 mg/dL LAB CHEMISTRY METHOD 09/21/2024 12:11 PM [facility] BUN 49(H) 5 - 25 mg/dL LAB CHEMISTRY METHOD 09/21/2024 12:11 PM [facility] Creatinine 1.58(H) 0.50 - 1.10 mg/dL LAB CHEMISTRY METHOD 09/21/2024 12:11 PM [facility] eGFR 34(L) >=60 mL/min/1. 73m2 LAB CHEMISTRY METHOD 09/21/2024 12:11 PM [facility] Comment:Calculation based on the Chronic Kidney Disease Epidemiology Collaboration (CKD-EPI) equation refit without adjustment for race. BUN/Creatinine Ratio 31.0 LAB CHEMISTRY METHOD 09/21/2024 12:11 PM [facility] Calcium 8.4(L) 8.5 - 10.5 mg/dL LAB CHEMISTRY METHOD 09/21/2024 12:11 PM [facility] Blood Venous blood specimen / Unknown Venipuncture / Unknown 09/21/2024 7:31 AM EST 09/21/2024 9:59 AM EST us Hal Cole MD LAB BLOOD ORDERABLES Final Resul t [facility] [address] [place] [address], documented in this encounter Visit Diagnoses Diagnosis Chronic kidney disease, unspecified documented in this encounter Additional Health Concerns Infection Onset Date Last Indicated Resolved Time ESBL 08/10/2025 08/10/2025 documented as of this encounter Care Teams Underwriting Manager Relationship Specialty Start Date End Date Hal Cole MD [address] [place] [phone] PCP - General Family Medicine 09/15/24 documented as of this encounter
[2025-08-23] MEDS: Furosemide 100 MG/10 ML VIAL 80 MG IVPUSH (20:26)
[2025-08-23] MEDS: vancomycin/NS 2,000 MG/500 ML PLAST..BAG 250 MG IV (20:50)
--- NOTE | 2025-08-23 21:12 | PM.IMHP ---
History of Present Illness Date of Service: 08/23/25 Attending physician on admission: Isaiah Tesfaye Chief Complaint: infection in legs Pt is a 79-year-old female with a history of IDDM II, anxiety, TEZ, obesity, CKD 4, hypertension, hyperlipidemia, NSTEMI, HFpEF, COPD-O2 dependent, lymphedema, hypothyroidism, hypokalemia chronic indwelling Francisco was BIBA for BLE redness with infection since leaving SNF for STR about 1.5 weeks ago. Pt states she was doing well until a few days ago when she noted redness in legs and now swelling and pain. Her VNA nurse advised pt to be taken to the ED for further evaluation. Pt's most concerning complaint is SOB after lying supine for US of legs and kidneys. Pt currently being evaluated by RT for BIPAP and lasix 60 mgs IV provided on top of the 80 mgs pt received in the ED earlier. Pt notes she uses 4L of O2 at home normally. Pt denies productive cough, chest pain, SANTILLAN but reports increasing anxiety since arrival. Per records from previous admission, pt was discharged home with [facility] Non-Invasive Ventilater on 07/20. BiPAP at night FIO2 28, IPAP 12, EPAP 6 per last discharge order. Pt reports the device did not fit right and has not been using at home. Work up in ED includes CXR noting CM, pulmonary edema and emphysema. LA 0.9, WBC 11.9, H/H 9/30.2, PLTs 262K. VBG was 7.42, 29, 140 and 19. K 5.4. Na 140. CO2 18. Cr CL 22.9, GFR 19. BG162. Troponin 21.6, next level pending. ABG pending. NT-BNP 4595. CHronic francisco is in place and pt has diuresed 1000 mls so far since receiving first dose of Lasix. ECG appears to be a sinus arrhythmia, HR 58 - 66 BPM. Plan is to admit pt to tele for BLE cellulits, rule out DVT, CHF exacerbation, COPD exacerbation, MARJORIE on CKD 4. Pt did clarify that she is a full code and would want to be intubated or receive nonmechanical ventilation if needed. Pt also states she would want dilaysis if needed acutely. Review of Systems Review of Systems: Pt denies chest pain, abd pain but is reporting significant SOB at rest after having to lie flat for renal US and B Venous dopplers. Pt deneis SANTILLAN, visual changes. Pt reports issues with swallowing and has dentures with many teeth missing but often does not wear them. Pt denies any recent falls. Pt reports chronic incontinence of stool. Yes all other systems are reviewed and are negative [facility] Medical History Class 2 obesity CKD stage 3b, GFR 30-44 ml/min Chronic anemia Obesity hypoventilation syndrome Pulmonary hypertension Lymphedema COPD (chronic obstructive pulmonary disease) CHF (congestive heart failure) Hypothyroidism Diabetes mellitus Pure hypercholesterolemia Open wound Bilateral hydronephrosis Skin ulcer of sacral region COPD exacerbation MARJORIE (acute kidney injury) Pneumonitis CKD (chronic kidney disease) Renal insufficiency Urinary retention Lumbar degenerative disc disease Chronic pain syndrome Venous stasis dermatitis Atelectasis Generalized anxiety disorder CHF (congestive heart failure) Anemia Herpes zoster Left bundle branch block Morbid obesity Chronic pain syndrome Anxiety Pernicious anemia Essential hypertension Cognitive capacity: A/O X3 Functional capacity: bed bound Family History Father CVD (cardiovascular disease) Mother No problems noted. Family/Other FH: mental illness Surgical History H/O left knee surgery Deficient knowledge of leg surgery History of tonsillectomy and adenoidectomy History of appendectomy Social History Household Members: Children Household Members Other:: son Housing: House Do you presently have visiting nurse or other home services: Yes (vna) Unable to assess alcohol history related to: Unknown Alcohol intake: never Comment: 1:1 sitter for oxygen administration and redirection Patient Tobacco Use Status: Former Tobacco user Tobacco use type: Cigarette Smoked in Last 30 Days: No e-Cigarette/Vaping Use: Never Used Second Hand Smoke Exposure: No Use of substances other than those prescribed or required for medical reasons: Unknown Advance Directives: Yes Advance Directives on File: Yes Advance Directives Date on File: 06/24/24 service: No Current occupational status: disabled Cognitive needs: Yes (Wheelchair, Lift chair) Hearing needs: No Vision needs: Yes (Glasses) Meds Allergies Allergy/AdvReac Type Severity Reaction Status Date / Time ibuprofen (From Motrin) Allergy Unknown swelling Verified 08/23/25 16:15 codeine (CODEINE) AdvReac Unknown SLEEPY Verified 08/23/25 16:15 Active Medications: Current Medications Vancomycin HCl (Vancomycin/Ns) 2,000 mg in 500 mls @ 250 mls/hr IV ONCE ONE Stop: 08/23/25 22:08 Last Admin: 08/23/25 20:50 Dose: 250 mls/hr Home Medications ?Medication ?Instructions ?Recorded ?Confirmed ?Last Taken ?Type acetaminophen 325 mg tablet 650 mg PO Q4H PRN Fever Or Pain 05/10/25 07/19/25 Unknown History insulin lispro 100 unit/mL 1 sliding scale dose subcut TIDAC 05/10/25 07/19/25 07/18/25 History subcutaneous solution (Humalog U-100 Insulin) empagliflozin 10 mg tablet 10 mg PO DAILY 06/05/25 07/19/25 07/18/25 History (Jardiance) empagliflozin 10 mg tablet 10 mg PO DAILY diabetes mellitus 08/23/25 Unknown History (Jardiance) Physical Exam Vital Signs and Narrative: Vital Signs: Last Vital Signs Temp 98.1 F 08/23/25 19:41 Pulse 57 08/23/25 20:51 Resp 18 08/23/25 20:51 BP 110/76 08/23/25 20:51 Pulse Ox 98 08/23/25 20:51 O2 Del Method Nasal Cannula 08/23/25 20:51 O2 Flow Rate 2 08/23/25 20:51 BMI result Body Mass Index 37.8 Results Labs 08/23/25 19:15 08/23/25 21:58 Labs: Laboratory Results - last 24 hr 08/23/25 08/23/25 08/23/25 19:15 19:34 19:41 MCV 96.2 MCH 28.7 MCHC 29.8 L RDW 15.8 Plt Count 262 D MPV 9.2 L Immature Gran % (Auto) 0.6 H Neut % (Auto) 89.8 H Lymph % (Auto) 3.5 L [place] % (Auto) 4.9 Eos % (Auto) 0.8 Baso % (Auto) 0.4 Lymph # (Auto) 0.4 L [place] # (Auto) 0.6 Eos # (Auto) 0.1 Baso # (Auto) 0.1 Abs Immat Gran (auto) 0.07 H Absolute Neuts (auto) 10.7 H Absolute Nucleated RBC 0.000 Nucleated RBC % (auto) 0.0 VBG pH 7.42 VBG pCO2 29 VBG pO2 140 VBG HCO3 19 L VBG O2 Saturation 100.0 VBG Base Excess -4.0 Anion Gap 20 Estim Creat Clear Calc 22.9 Estimated GFR 19 Random Glucose 162 H Lactic Acid 0.9 Calcium 8.2 L Total Bilirubin 0.2 Direct Bilirubin < 0.2 AST 25 ALT 8 Alkaline Phosphatase 120 H Troponin I High Sens 21.6 H NT-Pro-B Natriuret Pep 4595.9 H Total Protein 7.1 Albumin 3.4 L Assessment and Plan (1) Acute kidney injury: Status: Acute (2) Bilateral cellulitis of lower leg: Status: Acute Plan Pt is a 79-year-old female with a history of IDDM II, anxiety, TEZ, obesity, CKD 4, hypertension, hyperlipidemia, NSTEMI, HFpEF, COPD-O2 dependent, lymphedema, hypothyroidism, hypokalemia chronic indwelling Francisco was BIBA for BLE redness with infection since leaving SNF for STR about 1.5 weeks ago. Pt states she was doing well until a few days ago when she noted redness in legs and now swelling and pain. Her VNA nurse advised pt to be taken to the ED for further evaluation.Pt being admitted for the following medical problems. MARJORIE on CKD stage 4/ hyperkalemia Nephrology consulted Measure I/Os QS Avoid nephrotoxic medications including NSAIDS Avoid hypotension Urine studies requested, UA with reflex ordered Renal US ordered Chronic francisco in place CK total ordered Bilateral Celulitis LE's Pt started on Vanco and Zosyn in the ED ID consulted Wound care consulted Venous dopplers pending to rule out DVT CHF exacerbation/ abnormal rhythm Pt was discharged home with [facility] Non-Invasive Ventilater on 07/20. BiPAP at night FIO2 28, IPAP 12, EPAP 6, but has not been compliant due to poor fitting BNP 4500, Pulmonary edema on CXR Echo ordered Lasix IV adminsitered, will be 40 IV BID Cardiology consulted Troponins flat Daily wts, low Na/ Cardiac diet, I/Os QS, Fluid allowance 1500 COPD exacerbation ABG ordered Oxygen via NC, titrate when possible, baseline at home is 4L Duo nebs, Budesonide Supportive care with antitussives UTI/ Chronic Francisco placement due to chronic incontinence Catheter changed 1 week prior per pt UA pending Fungal rash Nystatin powder ordered IDDM SSI Lantus ordered Diabetic Diet HTN Avoid antihypertensives on admission, BP is stable but 117 systolic Avoid hypotension Low Na diet HLD Continue statin, LFTs stable Hypothyrpidism TSH with relex pending Continue levothyroxine once med rec completed, adjust if indicated MEMO H/H currently stable, 07/25.2 No indciation for transfusion CM ordered as it is possible pt may need more care and support at home. Unable to reach pt's tracy foster by phone. DVT Prophylaxis: Heparin SC MED REC pending FULL CODE status Quality Stroke Does the patient have a stroke diagnosis?: No Reason for No Anti-thrombotic by Day Two: N/A - Med Ordered VTE Prior VTE?: No VTE Risk Level:: Medical - moderate - high VTE Device Contraindication: Treatment Not Tolerated VTE Drug Contraindication: N/A - Med Ordered
[2025-08-23] MEDS: Furosemide 100 MG/10 ML VIAL 60 MG IVPUSH (21:44)
[2025-08-23] MEDS: Potassium Chloride Packet 20 MEQ PACKET 40 MEQ PO (21:59)
[2025-08-23 22:01] LABS: Magnesium 3.3 mg/dL (1.6-2.6)
[2025-08-23 22:20] LABS: Appearance Urine Turbid; Glucose Urine UA 250 mg/dL (Negative); PH 5.5 (5.0-9.0); Specific Gravity - Urine 1.015 (1.005-1.025); UMIC TRIGGER UA YES
[2025-08-23 22:22] LABS: VBG HCO3 23 mmol/L (22-26); VBG O2 % Saturation 99.0 %
[2025-08-23 22:30] LABS: Troponin-I High Sensitivity 27.7 ng/L (<3.5-17.0)
[2025-08-23 22:38] LABS: Potassium 4.9 mmol/L (3.3-5.1)
--- NOTE | 2025-08-23 22:41 | PC.NURSE ---
pt placed on bipap d/t most recent ABG results via RT. bipap settings @ 14/7 w/ a rate of 14. all other vss and up to date. sinus bradycardic on the monitor. abdominal folds cleansed d/t thick fungal consistency. nystatin powder applied. pt otherwise pending bed assignment. plan of care ongoing. call placed within reach.
[2025-08-23 23:10] LABS: Resp Syncy Virus RNA Qual PCR NEGATIVE (Negative); SARS COV2 PCR INHOUSE NEGATIVE (Negative)
[2025-08-23 23:46] LABS: Glucose, Whole Blood 134 mg/dL (60-115)
[2025-08-24] VITALS (14 sets, daily range): BP systolic 106–157; BP diastolic 36–88; PULSE 53–89; RESP 15–25; TEMP 36.1–36.6; O2SAT 89–97; BMI 35.8; BMI 35.5
--- NOTE | 2025-08-24 00:10 | PC.NURSE ---
pt incontinent of stool. pericare performed. pt turned/repositioned during intervention. pt noted to be sob and have wob while being cleaned. 79% on bipap @ 14/7 w/ a rate of 14 on 2L. RT called for assistance. pt transitioned to 6L w/ same bipap settings. tolerated transition well. able to titrate bipap settings back to original at 14/7 w/ a rate of 14 on 2L. all other vss and up to date. sinus yuri on the monitor. pt agreeable to being positioned somewhat upright. sob/wob decreased. lights dimmed to promote comfort.
[2025-08-24] MEDS: 0.9 % Sodium Chloride Flush 3 ML SYRINGE IVFLUSH ×3 (00:14→21:45)
[2025-08-24] MEDS: diazePAM 10 MG/2 ML CARTRIDGE 5 MG IVPUSH (02:27)
--- NOTE | 2025-08-24 02:28 | PC.NURSE ---
pt reporting increased anxiety d/t wearing bipap mask. requesting to take off mask. pt educated on importance but still being adamant about removing bipap mask. RT/hospitalist bedside. pt agreeable to wearing bipap. pt medicated for anxiety per provider order. effectiveness pending. call hull placed within reach.
[2025-08-24 02:38] LABS: Glucose, Whole Blood 81 mg/dL (60-115)
--- NOTE | 2025-08-24 03:36 | PC.NURSE ---
pt transitioned to hospital bed to promote comfort. pt noted to be incontinent of stool. pericare performed. barrier cream applied to coccyx d/t erythema being noted to site. picture provided via tiger to hospitalist. additional nystatin applied to affected areas. pt otherwise remains agitated. on bipap. vss and up to date. sinus yuri on the monitor. bed alarm in place. pending bed assignment. plan of care ongoing. call hull placed within reach.
[2025-08-24 03:46] LABS: Venous Blood Gas Refer to POC result
[2025-08-24 04:43] LABS: VBG HCO3 22 mmol/L (22-26)
[2025-08-24 04:44] LABS: Venous Blood Gas Refer to POC result
[2025-08-24 04:50] LABS: Glucose, Whole Blood 61 mg/dL (60-115)
[2025-08-24 04:53] LABS: MANUAL DIFF FLAG NO
[2025-08-24 04:55] LABS: Hematocrit 28.7 % (37.0-47.0); Hemoglobin 8.6 g/dl (12.0-16.0); Imm Gran Abs Auto 0.06 X10*3/uL (0.00-0.03); Imm Gran Pct Auto 0.6 % (0.0-0.4); Lymphocytes Absolute Auto 0.5 X10*3/uL (1.2-4.9); Mean Corpuscular HGB Conc 30.0 g/dl (31.0-35.0); Mean Corpuscular Hemoglobin 28.4 pg (27.0-33.0); Mean Corpuscular Volume 94.7 fL (80.0-98.0); NRBC Abs Auto 0.000 X10*3/uL (0.0-0.012); NRBC Pct Auto 0.0 /100WBC (0.0-0.2); Platelet Count 301 X10*3/uL (160-400); Red Blood Count 3.03 X10*6/uL (4.20-5.50); White Blood Count 9.6 X10*3/uL (4.8-10.8)
--- NOTE | 2025-08-24 04:55 | PC.NURSE ---
pt currently remains on bipap. vss and up to date. sinus yuri on the monitor. HR in the low 50s. POC obtained displaying 61mg/dL. prn amp of dextrose administered per provider order. effectiveness pending. hospitalist notified/aware of results. plan of care ongoing. call hull placed within reach.
[2025-08-24 05:12] LABS: Alanine Aminotransferase < 6 U/L (0-31); Albumin Level 3.4 g/dL (3.5-5.0); Alkaline Phosphatase 103 U/L (39-117); Anion Gap 21 (12-20); Aspartate Amino Transferase 23 U/L (5-31); Blood Urea Nitrogen 108 mg/dL (9-16); Calcium 7.9 mg/dL (8.4-10.2); Carbon Dioxide 20 mmol/L (22-29); Chloride 108 mmol/L (96-108); Creatinine Clr Calc Pharmacy 25.3; Estimated Glomerular Filt Rate 22; Potassium 4.8 mmol/L (3.3-5.1); Sodium 144 mmol/L (135-145); Total Protein 6.7 g/dL (6.5-8.0)
[2025-08-24 05:15] LABS: Glucose, Whole Blood 128 mg/dL (60-115)
[2025-08-24 05:15] LABS: Osmolality, Serum 330 mosm/kg (281-305)
--- NOTE | 2025-08-24 05:18 | PC.NURSE ---
Addendum entered by Shayla Veliz RN 08/24/25 05:49: repeat POC s/p PO consumption = 130mg/dL. Original Note: repeat POC obtained s/p amp of dextrose displaying 128mg/dL. pt provided w/ a sandwich/orange juice/curry frances crackers as she was taken off of bipap via RT and placed on 2L via NC. no sob/wob noted. respirations even/unlabored. plan of care ongoing.
[2025-08-24 05:43] LABS: Glucose, Whole Blood 130 mg/dL (60-115)
--- NOTE | 2025-08-24 06:23 | HO.NURTONUR ---
a&ox4. vss and up to date. sinus bradycardic on the monitor. hx COPD - 4L via NC baseline. currently on 2L via NC - no sob/wob noted. respirations even/unlabored. hx HF, TEZ (bipap at night). diabetic diet - on sliding scale. swallows pills whole w/ water w/o difficulty. walker baseline. 18fr chronic francisco catheter - recently changed x 1 week ago. incontinent of stool baseline. erythema noted to coccyx - barrier cream in place. fungal areas noted underneath skin folds - nystatin applied. 20gIV in the left wrist - patent/intact. nothing currently infusing - wrapped w/ curex for safety precautions. recently admitted for COPD/HF exacerbation - medically cleared and then discharged to [facility]. pt was then discharged from [facility] and living w/ son x 1.5 weeks. pt represented to the ED after being advised to come in s/p VNA visit c/o bilateral LE redness/swelling/pain and weeping that has worsened over the last 24 hours. denies any fevers/chills. upon ED arrival - pt also reporting increased sob, productive cough w/ phlegm and chest tightness. pt briefly placed on bipap w/ good effect based off of repeat ABG/VBG results. BNP elevated - received IV lasix w/ good effect. I&Os in worklist. elevated kidney function - MARJORIE. pt received IV vanco/zosyn in the ED for cellulitis. at one point, blood sugar was noted to be = 61mg/dL - given amp of dextrose and PO orange juice, sandwich, gingerale and crackers w/ good effect. pending renal US/bilateral venous duplex US results. pending echocardiogram/cardiology consult/wound care consult/and nephrology consult to be completed. in hospital bed to promote comfort.
[2025-08-24 06:44] LABS: Glucose, Whole Blood 163 mg/dL (60-115)
--- NOTE | 2025-08-24 07:00 | CA_ITS ---
Transthoracic Echocardiogram Patient (Last, First, Middle): Radhika Vaca N Gender: F Date of : 1945 Age: 79 Procedure Date: 08/24/2025 Procedure Type: Transthoracic Echocardiogram Location: ER Height: 165.1 cm Weight: 97.52 kg BSA: 2.04 m2 Heart Rate: 55 bpm BP: 132 / 49 mmHg Radio Time Salesperson: FELISHA/JUANY Referring MD: Stephanie TRACYPLeandro Symptoms: CHF exacerbation, murmur Study Quality: Fair/no IV access ECG Rhythm: Bradycardia Conclusions: - The left ventricular systolic function is normal. The calculated ejection fraction is 69% by biplane method. - There is moderately increased left ventricular wall thickness. - Evidence suggests grade II (moderate) diastolic dysfunction. - There is severe mitral annular calcification. - There is moderate tricuspid valve regurgitation. - Severe pulmonary hypertension is present. Findings Left Ventricle Normal left ventricular cavity size. There is moderately increased left ventricular wall thickness. The left ventricular systolic function is normal. The calculated ejection fraction is 69% by biplane method. There is no evidence of regional wall motion abnormalities. Evidence suggests grade II (moderate) diastolic dysfunction. Right Ventricle Moderately increased right ventricular cavity size. There is normal right ventricular systolic function. Atria The left atrium is severely dilated. The right atrium is normal in size. Aortic Valve There is a normal trileaflet aortic valve. There is mild calcification of the aortic valve. There is no aortic valve stenosis. There is no aortic valve regurgitation. Mitral Valve There is severe mitral annular calcification. There is mild mitral valve regurgitation. There is no mitral valve stenosis. Pulmonic Valve The pulmonic valve is likely normal. Tricuspid Valve There is moderate tricuspid valve regurgitation. The right ventricular systolic pressure is 80 mmHg. Severe pulmonary hypertension is present. Great Vessels The asc aorta and aortic arch are normal in size. Venous The inferior vena cava is dilated and collapses less than 50% with inspiration. Pericardium/Pleural There is no evidence of pericardial effusion. Prior Study Comparison No significant change compared to prior study dated: 05/10/2025. Measurements 2D Linear Measurements IVSd: 1.31 0.6-0.9/0.6-1.0 cm LVIDd: 4.58 3.9-5.3/4.2-5.9 cm LVIDd Index: 2.25 2.4-3.2/2.2-3.1 cm/m2 LVIDs: 2.89 2.0-3.6 cm LVPWd: 1.37 0.7-1.1 cm LA Diam: 5.10 2.7-3.8/3.0-4.0 cm LAIDs Index: 2.50 1.5-2.3 cm/m2 LV Mass: 298.05 67-162/88-224 g LV Mass Index: 146.10 43-95/49-115 g/m2 LVOT Diam: 2.10 3.0+(-)1.3 cm 2D Systolic Function EF 4C: 72.80 >55% EF 2C: 65.80 >55% EF BiP: 69.00 >55% Mitral Valve MV VTI: 0.95 MV Pk Hayden: 2.48 MV Mn Hayden: 1.09 MV Pk Grad: 25.00 MV Mn Grad: 7.00 MV Pk E: 2.27 MV PK A: 1.66 MV Decel Time: 414.00 E/A: 1.40 E'Lateral: 4.24 E'Medial: 3.70 E/E' Med: 61.40 E/E' Lat: 53.50 PHT: 121.00 MVA PHT: 1.82 MVA Continuity: 1.32 Decel Bullitt: 5.49 Aortic Valve AoV Pk Hayden: 1.85 AoV Mn Hayden: 1.28 AoV VTI: 0.45 AoV Pk Grad: 14.00 Aov Mn Grad: 7.00 CHASITY Cont.VTI: 2.82 LVOT LVOT Pk Hayden: 1.50 LVOT Mn Hayden: 1.01 LVOT VTI: 0.36 LVOT Pk Grad: 9.00 LVOT Mn Grad: 5.00 LVOT Diam: 2.10 LVOT Area: 3.46 Diastolic Function MV Pk E: 2.27 MV Pk A: 1.66 E/A: 1.40 E'Medial: 3.70 E/E' Med: 61.40 E' Laterial: 4.24 E/E' Lat: 53.50 Right Ventricle TAPSE (mm): 22.80 TVS' Hayden: 14.30 Tricuspid Valve TR Pk Hayden: 4.04 TR Pk Grad: 65.00 RA Press: 15.00 RVSP: 80.00 Great Vessels Aorta Sinus of Valsalva: 2.80 2.0-3.5 cm Ao Asc: 3.70 2.1-3.4 cm Ao Arch: 2.90 Pulmonary Veins Pulm Vein S/D 0.50 Pulmonary Valve PV Pk Hayden: 1.19 Peak PV Grad: 6.00 Updated in Other Vendor System with Status of Final Win Hewitt MD electronically signed on 08/24/2025 12:26:42 PM with status of Final
--- NOTE | 2025-08-24 07:34 | PC.NURSE ---
This Rn assumed care of patient @ 0700 Patient resting in bed on O2 2L 95% POC 163 patient received 2 units insulin, no s/sx of hyper/hypoglycemia Administered morning medications per DEC IV 20G in L wrist Patient awaiting bed assignment
[2025-08-24 07:59] LABS: EOS Counted 4 CELLS; EOS QC POS YES; EOS Stain Quality OK YES; WBC, Counted 100 CELLS
[2025-08-24] MEDS: Furosemide 20 MG/2 ML VIAL 40 MG IVPUSH ×2 (08:07→17:42)
--- NOTE | 2025-08-24 09:17 | MHC.CM.PN ---
CM met with Patient at bedside, in the ED, and addressed IMM with her, providing Patient with the original and a copy will be placed on the chart. Patient lives in a house with her Son/Caregiver/HCP/Robbie and she is active with [facility] & home O2 from [facility]. Home/resume said services is Patient's goal and CM has initiated and will follow for dc planning. PCP is Dr. Neida العلي and Son will transport at dc. Patient was recently dc'd from [facility].
[2025-08-24 11:38] LABS: Glucose, Whole Blood 156 mg/dL (60-115)
--- NOTE | 2025-08-24 11:41 | PHA.MEDREC ---
Pharmacy Consult ? Medication Reconciliation Pharmacy has completed the medication reconciliation. Attempted to contact son with no answer, left message to call back. [facility] - list was last update 06/08/25. Patient recently discharged from [facility] 07/25/25. On last visit, son report patient no longer taking sertraline or sodium bicarb therefore left off home list. [facility] list reports Semglee Pen however most recent fill in June is for Insulin Degludec therefore it was left as is on the home list. Adrienne Alvarado ,PharmD
--- NOTE | 2025-08-24 13:55 | P.CONNP_ITS ---
History of Present Illness Reason for Consult Consult date: 08/24/25 Reason for consult: CKD Chief Complaint Chief complaint: cellulitis, CHF, telemetry History of Present Illness Narrative: Pt is a 79-year-old female with a history of IDDM II, anxiety, TEZ, obesity, CKD 4, hypertension, hyperlipidemia, NSTEMI, HFpEF, COPD-O2 dependent, lymphedema, hypothyroidism, hypokalemia chronic indwelling Moyer was BIBA for BLE redness with infection since leaving SNF for STR about 1.5 weeks ago. Pt states she was doing well until a few days ago when she noted redness in legs and now swelling and pain. Review of Systems Constitutional: Reports as per [facility] Past Medical History Medical History Class 2 obesity CKD stage 3b, GFR 30-44 ml/min Chronic anemia Obesity hypoventilation syndrome Pulmonary hypertension Lymphedema COPD (chronic obstructive pulmonary disease) CHF (congestive heart failure) Hypothyroidism Diabetes mellitus Pure hypercholesterolemia Open wound Bilateral hydronephrosis Skin ulcer of sacral region COPD exacerbation MARJORIE (acute kidney injury) Pneumonitis CKD (chronic kidney disease) Renal insufficiency Urinary retention Lumbar degenerative disc disease Chronic pain syndrome Venous stasis dermatitis Atelectasis Generalized anxiety disorder CHF (congestive heart failure) Anemia Herpes zoster Left bundle branch block Morbid obesity Chronic pain syndrome Anxiety Pernicious anemia Essential hypertension Family History Family History Father CVD (cardiovascular disease) Mother No problems noted. Family/Other FH: mental illness Surgical History Surgical History H/O left knee surgery Deficient knowledge of leg surgery History of tonsillectomy and adenoidectomy History of appendectomy Social History Social History Household Members: Family Household Members Other:: son Housing: House Do you presently have visiting nurse or other home services: Yes Alcohol intake: never Comment: 1:1 sitter for oxygen administration and redirection Patient Tobacco Use Status: Former Tobacco user Tobacco use type: Cigarette e-Cigarette/Vaping Use: Never Used Second Hand Smoke Exposure: No Advance Directives Date on File: 06/24/24 service: No Current occupational status: disabled Cognitive needs: Yes (Wheelchair, Lift chair) Hearing needs: No Vision needs: Yes (Glasses) Meds Allergies Allergy/AdvReac Type Severity Reaction Status Date / Time ibuprofen (From Motrin) Allergy Unknown swelling Verified 08/23/25 16:15 codeine (CODEINE) AdvReac Unknown SLEEPY Verified 08/23/25 16:15 Active Medications: Current Medications Acetaminophen (Acetaminophen 325 Mg Tablet) 650 mg PO Q6H PRN PRN Reason: Pain, Mild 1-3,fever,headache Albuterol/Ipratropium (Albuterol/Iprat 2.5/0.5mg 3 Ml Ampul.Neb) 3 ml INHALE Q4H PRN PRN Reason: Shortness of Breath/Wheezing Budesonide (Budesonide 0.5 Mg/2 Ml Ampul.Neb) 0.5 mg INHALE RBID [facility] Last Admin: 08/24/25 07:27 Dose: 0.5 mg Calcium Carbonate (Calcium Carbonate 750 Mg Tab.Chew) 750 mg PO Q4H PRN PRN Reason: Heartburn Dextrose (Dextrose 50 % 25 Gm/50 Ml Syringe) 25 gm IVPUSH Q15M PRN; Protocol PRN Reason: per Hypoglycemia Standing Ord. Last Admin: 08/24/25 04:50 Dose: 25 gm Furosemide (Furosemide 20 Mg/2 Ml Vial) 40 mg IVPUSH BID@0900,1800 [facility]; Protocol Last Admin: 08/24/25 08:07 Dose: 40 mg Glucose (Glucose Gel 15 Gm Gel..Gram.) 15 gm PO Q15M PRN; Protocol PRN Reason: per Hypoglycemia Standing Ord. Heparin Sodium (Porcine) (Heparin Sodium,Porcine 5,000 Unit/Ml Vial) 5,000 unit SUBCUT Q12H [facility] Last Admin: 08/24/25 12:10 Dose: 5,000 unit Doxycycline Hyclate 100 mg/ (Sodium Chloride) 250 mls @ 166.67 mls/hr IV Q12H [facility] Last Admin: 08/24/25 12:53 Dose: 166.67 mls/hr Ceftriaxone Sodium 1 gm/ (Sodium Chloride) 50 mls @ 100 mls/hr IV Q24H [facility] Last Infusion: 08/24/25 13:26 Dose: Infused Insulin Human Lispro (Insulin Lispro 100 Unit/Ml 3 Ml Vial) 0 unit SUBCUT QIDACHS GEO; Protocol Last Admin: 08/24/25 12:09 Dose: 2 unit Lorazepam (Lorazepam 1 Mg Tablet) 1 mg PO Q6H PRN PRN Reason: Anxiety Last Admin: 08/23/25 21:59 Dose: 1 mg Lorazepam (Lorazepam 1 Mg Tablet) 1 mg PO Q6H PRN PRN Reason: Anxiety Magnesium Hydroxide (Milk Of Magnesia 30 Ml Oral.Susp) 30 ml PO DAILY PRN PRN Reason: Constipation Melatonin (Melatonin 3 Mg Tablet) 6 mg PO BEDTIME PRN PRN Reason: Insomnia Nystatin (Nystatin Powder 15 Gm Bottle) 1 appl TOPICAL TID GEO; Protocol Last Admin: 08/24/25 08:12 Dose: 1 appl Ondansetron HCl (Ondansetron Hcl 4 Mg/2 Ml Vial) 4 mg IVPUSH Q8H PRN PRN Reason: Nausea and Vomiting Polyethylene Glycol (Polyethylene Glycol 3350 17 Gm Powd.Pack) 17 gm PO DAILY PRN PRN Reason: Constipation Senna (Sennosides 8.6 Mg Tablet) 17.2 mg PO BEDTIME GEO Sodium Chloride (0.9 % Sodium Chloride Flush 3 Ml Syringe) 3 ml IVFLUSH QSHIFT [facility] Last Admin: 08/24/25 07:27 Dose: Not Given Home Medications ?Medication ?Instructions ?Recorded ?Confirmed ?Last Taken ?Type acetaminophen 325 mg tablet 650 mg PO Q6H PRN Fever Or Pain 05/10/25 08/24/25 Unknown History empagliflozin 10 mg tablet 10 mg PO DAILY diabetes aki litus 08/23/25 08/24/25 Unknown History (Jardiance) albuterol sulfate 2.5 mg/3 mL 2.5 mg inhalation Q4H CO N 08/24/25 08/24/25 Unknown History (0.083 %) solution for nebulization shortness of breat h or wheezing insulin degludec 100 unit/mL (3 25 unit subcut BEDTIME 08/24/25 08/24/25 Unknown History mL) subcutaneous pen Physical Exam Vital Signs: Last Vital Signs Temp 96.9 F 08/24/25 12:20 Pulse 54 08/24/25 12:20 Resp 20 08/24/25 12:20 BP 139/58 L 08/24/25 12:20 Pulse Ox 93 08/24/25 12:20 O2 Del Method Nasal Cannula 08/24/25 12:20 O2 Flow Rate 4 08/24/25 12:20 BMI result Body Mass Index 35.5 Awake. Comfortable. Neck is supple. Mucosa moist. Lungs bilateral scattered rhonchi. Heart S1-S2 heard no gallop. Abdomen soft. Extremities no edema. No involuntary movements. No myoclonus. Results Lab Results 08/24/25 04:21 08/24/25 04:21 Lab results: Chemistry 08/23/25 08/23/25 08/24/25 19:34 21:58 04:21 Sodium 140 144 Potassium 5.4 H D 4.9 4.8 Carbon Dioxide 18 L 20 L BUN 110 H 108 H Creatinine 2.45 H 2.21 H Calcium 8.2 L 7.9 L Hematology 08/23/25 08/24/25 19:15 04:21 WBC 11.9 H 9.6 Hgb 9.0 L 8.6 L Plt Count 262 D 301 Urinalysis 08/23/25 22:01 Urine Color Yellow Urine Appearance Turbid Urine pH 5.5 Ur Specific [place] 1.015 Urine Protein 100 (2+) H Urine Glucose (UA) 250 H Urine Ketones Negative Urine Blood Large (3+) H Urine Nitrite Negative Ur Leukocyte Esterase Large (3+) H Urine RBC 6-10 H Urine WBC >50 Ur Squamous Epith Cells 3-5 Hyaline Casts 3-5 Urine Studies 08/23/25 22:28 Urine Osmolality 362 L Urine Creatinine 22.12 Assessment and Plan (1) Chronic kidney disease (CKD), stage 4: Status: Acute (2) Acute kidney injury: Status: Acute Plan MARJORIE superimposed on CKD. MARJORIE most likely due to hypoperfusion. Underlying CKD with a baseline creatinine of 1.4-1.8 mg/dL. Marginal improvement in creatinine since admission. No indication for dialysis. No obstruction based on renal ultrasonogram Concur with current medical management Mild hyperkalemia at time admission. Keep her on low-potassium diet Lokelma p.r.n. if potassium more than 5.2. Procedures Date of Service Date of Service: 08/24/25
--- NOTE | 2025-08-24 14:36 | HO.WOUND ---
Wound Consult: Initial 79 yr old female admitted to [facility] on 08/23/25- See progress notes and H&P for detailed history. Wound consult placed for bilateral lower legs. Patient agreeable to assessment and photo documentation. Patient seen with direct care RN at bedside, attempted to reposition, patient declines stating she needs her breathing treatment, educated on importance of repositioning for skin health and prevention of skin injury. patient verbalized understanding and stated she would be agreeable once she gets her breathing treatment, breathing treatment pending per RN. Left leg largely intact red warm - weeping to ankle Right leg and foot- blistering noted Right posterior Etiology: bilateral lower extremity cellulitis Wound Bed: largely intact with areas of blistering and weeping Drainage / Odor: serous Patria wound: ? No Induration, Fluctuance. Swelling redness and warmth to bilateral legs Pain: pt reports pain with dressing change Goals of Treatment: ? durafiber for drainage absorption Recommendations: 1. Turn and Reposition every 2 hours and as needed for patient comfort. Use pillows or wedges to support off loading positions. 2. Off Load all bony prominences with use of pillows and heel boots if needed. Apply Preventative foams where needed. 3. Monitor for incontinence and moisture control, use barrier creams when needed for prevention and treatment. 4. Provide adequate and supplemental nutrition. 5. Order or Continue low air loss mattress. 6. When applicable maintain blood glucose levels per Providers order. Bilateral lower legs: cleanse with saline, pat dry, apply durafiber to weeping areas, cover with ABD pad, wrap with kerlix, change daily and PRN. Buttocks: Off Load Pressure with Q2 hr turns and use of pillows - Cleanse with PH balance spray or wipes, pat dry. ?Apply thin layer of Triad to wound bed - only pat and dab no scrub and rub when soiling occurs. Reapply thin layer PRN after each episode of incontinence. Re-consult wound care Nurse for wound deterioration or wound changes.
--- NOTE | 2025-08-24 14:43 | HO.WOUND ---
Wound Consult: Initial 79 yr old female admitted to [facility] on 08/23/25- See progress notes and H&P for detailed history. Wound consult placed for bilateral lower legs. Patient agreeable to assessment and photo documentation. Patient seen with direct care RN at bedside, attempted to reposition, patient declines stating she needs her breathing treatment, educated on importance of repositioning for skin health and prevention of skin injury. patient verbalized understanding and stated she would be agreeable once she gets her breathing treatment, breathing treatment pending per RN. Left leg largely intact red warm - weeping to ankle Right leg and foot- blistering noted Right posterior Etiology: bilateral lower extremity cellulitis Wound Bed: largely intact with areas of blistering and weeping Drainage / Odor: serous Patria wound: ? No Induration, Fluctuance. Swelling redness and warmth to bilateral legs Pain: pt reports pain with dressing change Goals of Treatment: ? durafiber for drainage absorption Buttocks/coccyx- intact with evidence of chronic moisture/friction hyper and hypo pigmented areas with right buttock purple hue, blanching - recommend triad paste for moisture barrier Recommendations: 1. Turn and Reposition every 2 hours and as needed for patient comfort. Use pillows or wedges to support off loading positions. 2. Off Load all bony prominences with use of pillows and heel boots if needed. Apply Preventative foams where needed. 3. Monitor for incontinence and moisture control, use barrier creams when needed for prevention and treatment. 4. Provide adequate and supplemental nutrition. 5. Order or Continue low air loss mattress. 6. When applicable maintain blood glucose levels per Providers order. Bilateral lower legs: cleanse with saline, pat dry, apply durafiber to weeping areas, cover with ABD pad, wrap with kerlix, change daily and PRN. Buttocks: Off Load Pressure with Q2 hr turns and use of pillows - Cleanse with PH balance spray or wipes, pat dry. ?Apply thin layer of Triad to wound bed - only pat and dab no scrub and rub when soiling occurs. Reapply thin layer PRN after each episode of incontinence. Re-consult wound care Nurse for wound deterioration or wound changes.
[2025-08-24] MEDS: Albuterol/Iprat 2.5/0.5MG 3 ML AMPUL.NEB INHALE (14:46)
[2025-08-24 15:52] LABS: Glucose, Whole Blood 193 mg/dL (60-115)
[2025-08-24 18:06] LABS: Glucose, Whole Blood 171 mg/dL (60-115)
[2025-08-24 20:49] LABS: Glucose, Whole Blood 215 mg/dL (60-115)
[2025-08-25] VITALS (12 sets, daily range): BP systolic 130–160; BP diastolic 60–71; PULSE 51–70; RESP 16–20; TEMP 36.1–36.4; O2SAT 93–100
[2025-08-25 07:46] LABS: Creatinine Clr Calc Pharmacy 25.8; Estimated Glomerular Filt Rate 23
[2025-08-25] MEDS: Furosemide 20 MG/2 ML VIAL 40 MG IVPUSH ×2 (07:56→17:33)
[2025-08-25] MEDS: 0.9 % Sodium Chloride Flush 3 ML SYRINGE IVFLUSH (08:03)
[2025-08-25 08:14] LABS: Glucose, Whole Blood 86 mg/dL (60-115)
[2025-08-25 08:59] LABS: MANUAL DIFF FLAG NO
[2025-08-25 09:01] LABS: Hematocrit 26.4 % (37.0-47.0); Hemoglobin 7.9 g/dl (12.0-16.0); Imm Gran Abs Auto 0.05 X10*3/uL (0.00-0.03); Imm Gran Pct Auto 0.6 % (0.0-0.4); Lymphocytes Absolute Auto 0.5 X10*3/uL (1.2-4.9); Mean Corpuscular HGB Conc 29.9 g/dl (31.0-35.0); Mean Corpuscular Hemoglobin 28.5 pg (27.0-33.0); Mean Corpuscular Volume 95.3 fL (80.0-98.0); NRBC Abs Auto 0.000 X10*3/uL (0.0-0.012); NRBC Pct Auto 0.0 /100WBC (0.0-0.2); Platelet Count 254 X10*3/uL (160-400); Red Blood Count 2.77 X10*6/uL (4.20-5.50); White Blood Count 7.9 X10*3/uL (4.8-10.8)
[2025-08-25 09:17] LABS: Anion Gap 16 (12-20); Blood Urea Nitrogen 105 mg/dL (9-16); Calcium 7.8 mg/dL (8.4-10.2); Carbon Dioxide 23 mmol/L (22-29); Chloride 108 mmol/L (96-108); Creatinine Clr Calc Pharmacy 25.3; Estimated Glomerular Filt Rate 22; Potassium 4.7 mmol/L (3.3-5.1); Sodium 142 mmol/L (135-145)
[2025-08-25 09:51] LABS: E. coli EAEC Not Detected (Not Detect.); E. coli EPEC Not Detected (Not Detect.); E. coli ETEC Not Detected (Not Detect.); E. coli STEC Not Detected (Not Detect.); Shigella sp./EIEC Not Detected (Not Detect.)
[2025-08-25] MEDS: Albuterol/Iprat 2.5/0.5MG 3 ML AMPUL.NEB INHALE ×2 (11:27→16:41)
[2025-08-25 11:41] LABS: Glucose, Whole Blood 231 mg/dL (60-115)
--- NOTE | 2025-08-25 13:38 | MHC.CM.PN ---
Per rounds, pt. to be assisted to ambulate and may DC 08/26, DCP: home, resume [facility].
--- NOTE | 2025-08-25 13:43 | P.CNID_ITS ---
History of Present Illness Data of Consult Service Date: 08/24/25 Requesting physician: Matthew Cameron Primary Care Provider: Neida Soto MD HPI Reason for consult: painful legs bilaterally,redness She presents with pain and redness bilateral legs. She has normal WBC and no fever or chills. Symptoms presents last 2-3 days worsening Review of Systems 2 Review of Systems: Yes all other systems are reviewed and are negative [facility] Past Medical History Medical History (Updated 08/25/25 @ 13:45 by Lilia Gallegos MD) Erythema of lower extremity Class 2 obesity CKD stage 3b, GFR 30-44 ml/min Chronic anemia Obesity hypoventilation syndrome Pulmonary hypertension Lymphedema COPD (chronic obstructive pulmonary disease) CHF (congestive heart failure) Hypothyroidism Diabetes mellitus Pure hypercholesterolemia Open wound Bilateral hydronephrosis Skin ulcer of sacral region COPD exacerbation MARJORIE (acute kidney injury) Pneumonitis CKD (chronic kidney disease) Renal insufficiency Urinary retention Lumbar degenerative disc disease Chronic pain syndrome Venous stasis dermatitis Atelectasis Generalized anxiety disorder CHF (congestive heart failure) Anemia Herpes zoster Left bundle branch block Morbid obesity Chronic pain syndrome Anxiety Pernicious anemia Essential hypertension Family History Family History Father CVD (cardiovascular disease) Mother No problems noted. Family/Other FH: mental illness Family history: reviewed and not pertinent Surgical History Surgical History H/O left knee surgery Deficient knowledge of leg surgery History of tonsillectomy and adenoidectomy History of appendectomy Social History Social History Household Members: Family Household Members Other:: son Housing: House Do you presently have visiting nurse or other home services: Yes Alcohol intake: never Comment: 1:1 sitter for oxygen administration and redirection Patient Tobacco Use Status: Former Tobacco user Tobacco use type: Cigarette e-Cigarette/Vaping Use: Never Used Second Hand Smoke Exposure: No Advance Directives Date on File: 06/24/24 service: No Current occupational status: disabled Cognitive needs: Yes (Wheelchair, Lift chair) Hearing needs: No Vision needs: Yes (Glasses) Meds Allergies Allergy/AdvReac Type Severity Reaction Status Date / Time ibuprofen (From Motrin) Allergy Unknown swelling Verified 08/23/25 16:15 codeine (CODEINE) AdvReac Unknown SLEEPY Verified 08/23/25 16:15 Active Medications: Current Medications Acetaminophen (Acetaminophen 325 Mg Tablet) 650 mg PO Q6H PRN PRN Reason: Pain, Mild 1-3,fever,headache Last Admin: 08/25/25 07:55 Dose: 650 mg Albuterol Sulfate (Albuterol Sulfate (0.083%) 2.5 Mg/3 Ml Vial.Neb) 2.5 mg INHALE Q4H PRN PRN Reason: shortness of breath or wheezing Albuterol Sulfate (Albuterol Sulfate 90 Mcg 8 Gm Inhaler) 2 puff INHALE Q6H PRN PRN Reason: Shortness Of Breath Or Wheezing Albuterol/Ipratropium (Albuterol/Iprat 2.5/0.5mg 3 Ml Ampul.Neb) 3 ml INHALE Q4H PRN PRN Reason: Shortness of Breath/Wheezing Last Admin: 08/25/25 11:27 Dose: 3 ml Amlodipine Besylate (Amlodipine Besylate 5 Mg Tablet) 5 mg PO DAILY [facility]; Protocol Last Admin: 08/25/25 07:56 Dose: 5 mg Atorvastatin Calcium (Atorvastatin Calcium 40 Mg Tablet) 40 mg PO BEDTIME [facility] Last Admin: 08/24/25 21:42 Dose: 40 mg Betamethasone Dipropion Augmented (Betamethasone Dip Aug 0.05% Cr 15 Gm Tube) 1 appl TOPICAL BID [facility]; Protocol Budesonide (Budesonide 0.5 Mg/2 Ml Ampul.Neb) 0.5 mg INHALE RBID [facility] Last Admin: 08/25/25 06:45 Dose: 0.5 mg Calcium Carbonate (Calcium Carbonate 750 Mg Tab.Chew) 750 mg PO Q4H PRN PRN Reason: Heartburn Dextrose (Dextrose 50 % 25 Gm/50 Ml Syringe) 25 gm IVPUSH Q15M PRN; Protocol PRN Reason: per Hypoglycemia Standing Ord. Last Admin: 08/24/25 04:50 Dose: 25 gm Furosemide (Furosemide 20 Mg/2 Ml Vial) 40 mg IVPUSH BID@0900,1800 [facility]; Protocol Last Admin: 08/25/25 07:56 Dose: 40 mg Glucose (Glucose Gel 15 Gm Gel..Gram.) 15 gm PO Q15M PRN; Protocol PRN Reason: per Hypoglycemia Standing Ord. Heparin Sodium (Porcine) (Heparin Sodium,Porcine 5,000 Unit/Ml Vial) 5,000 unit SUBCUT Q12H [facility] Last Admin: 08/25/25 12:13 Dose: 5,000 unit Doxycycline Hyclate 100 mg/ (Sodium Chloride) 250 mls @ 166.67 mls/hr IV Q12H [facility] Last Infusion: 08/25/25 13:36 Dose: Infused Ceftriaxone Sodium 1 gm/ (Sodium Chloride) 50 mls @ 100 mls/hr IV Q24H [facility] Last Infusion: 08/25/25 12:41 Dose: Infused Insulin Human Lispro (Insulin Lispro 100 Unit/Ml 3 Ml Vial) 0 unit SUBCUT QIDACHS [facility]; Protocol Last Admin: 08/25/25 12:13 Dose: 4 unit Levothyroxine Sodium (Levothyroxine Sodium 200 Mcg Tablet) 200 mcg PO DAILY@0600 [facility] Last Admin: 08/25/25 07:01 Dose: 200 mcg Lorazepam (Lorazepam 1 Mg Tablet) 1 mg PO Q6H PRN PRN Reason: Anxiety Last Admin: 08/25/25 07:56 Dose: 1 mg Magnesium Hydroxide (Milk Of Magnesia 30 Ml Oral.Susp) 30 ml PO DAILY PRN PRN Reason: Constipation Melatonin (Melatonin 3 Mg Tablet) 6 mg PO BEDTIME PRN PRN Reason: Insomnia Nystatin (Nystatin Powder 15 Gm Bottle) 1 appl TOPICAL TID [facility]; Protocol Last Admin: 08/25/25 08:06 Dose: Not Given Ondansetron HCl (Ondansetron Hcl 4 Mg/2 Ml Vial) 4 mg IVPUSH Q8H PRN PRN Reason: Nausea and Vomiting Polyethylene Glycol (Polyethylene Glycol 3350 17 Gm Powd.Pack) 17 gm PO DAILY PRN PRN Reason: Constipation Senna (Sennosides 8.6 Mg Tablet) 17.2 mg PO BEDTIME [facility] Last Admin: 08/24/25 21:45 Dose: Not Given Sodium Chloride (0.9 % Sodium Chloride Flush 3 Ml Syringe) 3 ml IVFLUSH QSHIFT [facility] Last Admin: 08/25/25 08:03 Dose: 3 ml Home Medications ?Medication ?Instructions ?Recorded ?Confirmed ?Last Taken ?Type acetaminophen 325 mg tablet 650 mg PO Q6H PRN Fever Or Pain 05/10/25 08/24/25 Unknown History empagliflozin 10 mg tablet 10 mg PO DAILY diabetes aki litus 08/23/25 08/24/25 Unknown History (Jardiance) albuterol sulfate 2.5 mg/3 mL 2.5 mg inhalation Q4H MO N 08/24/25 08/24/25 Unknown History (0.083 %) solution for nebulization shortness of breat h or wheezing insulin degludec 100 unit/mL (3 25 unit subcut BEDTIME 08/24/25 08/24/25 Unknown History mL) subcutaneous pen Physical Exam 2 Vital Signs: Vital Signs: Last Vital Signs Temp 97.3 F 08/25/25 11:23 Pulse 51 08/25/25 13:18 Resp 20 08/25/25 11:28 BP 146/64 H 08/25/25 11:23 Pulse Ox 97 08/25/25 11:23 O2 Del Method Nasal Cannula 08/25/25 11:23 O2 Flow Rate 4 08/25/25 11:23 BMI result Body Mass Index 35.5 Extrem: Other: bilateral redness LE Results Labs 08/25/25 08:34 08/25/25 08:34 Labs: Short CBC 08/25/25 Range/Units 08:34 WBC 7.9 (4.8-10.8) X10*3/uL Hgb 7.9 L (12.0-16.0) g/dl Hct 26.4 L (37.0-47.0) % Plt Count 254 (160-400) X10*3/uL BMP 08/25/25 08/25/25 06:58 08:34 Sodium 142 Potassium 4.7 Chloride 108 Carbon Dioxide 23 BUN 105 H Creatinine 2.10 H 2.14 H Calcium 7.8 L Microbiology Microbiology Results: Microbiology 08/23/25 19:35 Blood - Venous Blood Culture - Preliminary No growth after 24 hours. 08/23/25 19:35 Blood - Venous Blood Culture - Preliminary No growth after 24 hours. Assessment and Plan (1) Erythema of lower extremity: Status: Acute Plan Cover strep although bilateral cellulitis unusual,linezolid staph and strep. Steroid cream antiiflammatory if helps
--- NOTE | 2025-08-25 15:31 | HO.PM.IMPN ---
Subjective Subjective Date of Service: 08/25/25 Interval History: Complaints of persiustent dyspnoea. The patient has no other issues to report. Review of Systems Review of Systems: Yes all other systems are reviewed and are negative Physical Exam Exam: Exam: General: A&O x3, oriented to time place person and situation. Patient uncomfortable Cardiac: S1, S2 auscultated with no S3/4, no MRG. Well perfused. Respiratory: Reduced breath sounds throughout all lung zones, with bibasilar crepitations, and bilateral upper lobe wheezing GI/ : No abdominal pain on palpation, no masses or distentions. MSK: Normal ambulation without pain at bony prominences or musculature Extremities: Bilateral lower extremity erythema to the mid [place], with tenderness to palpation and light touch; bilateral lower extremity edema 2 to 3+ Neurological: Normal neurological examination on overview, without obvious CN II-XII abnormalities. Vital Signs: Vital Signs: Last Vital Signs Temp 97.3 F 08/25/25 11:23 Pulse 51 08/25/25 13:18 Resp 20 08/25/25 11:28 BP 146/64 H 08/25/25 11:23 Pulse Ox 97 08/25/25 11:23 O2 Del Method Nasal Cannula 08/25/25 11:23 O2 Flow Rate 4 08/25/25 11:23 BMI result Body Mass Index 35.5 Objective Data Active Medications Acetaminophen (Acetaminophen 325 Mg Tablet) 650 mg PO Q6H PRN PRN Reason: Pain, Mild 1-3,fever,headache Last Admin: 08/25/25 07:55 Dose: 650 mg Documented By: DUY Albuterol Sulfate (Albuterol Sulfate (0.083%) 2.5 Mg/3 Ml Vial.Neb) 2.5 mg INHALE Q4H PRN PRN Reason: shortness of breath or wheezing Albuterol Sulfate (Albuterol Sulfate 90 Mcg 8 Gm Inhaler) 2 puff INHALE Q6H PRN PRN Reason: Shortness Of Breath Or Wheezing Albuterol/Ipratropium (Albuterol/Iprat 2.5/0.5mg 3 Ml Ampul.Neb) 3 ml INHALE Q4H PRN PRN Reason: Shortness of Breath/Wheezing Last Admin: 08/25/25 11:27 Dose: 3 ml Documented By: KATHLEEN Amlodipine Besylate (Amlodipine Besylate 5 Mg Tablet) 5 mg PO DAILY [facility]; Protocol Last Admin: 08/25/25 07:56 Dose: 5 mg Documented By: DUY Atorvastatin Calcium (Atorvastatin Calcium 40 Mg Tablet) 40 mg PO BEDTIME [facility] Last Admin: 08/24/25 21:42 Dose: 40 mg Documented By: NICOLA Betamethasone Dipropion Augmented (Betamethasone Dip Aug 0.05% Cr 15 Gm Tube) 1 appl TOPICAL BID [facility]; Protocol Budesonide (Budesonide 0.5 Mg/2 Ml Ampul.Neb) 0.5 mg INHALE RBID [facility] Last Admin: 08/25/25 06:45 Dose: 0.5 mg Documented By: VARSHA Calcium Carbonate (Calcium Carbonate 750 Mg Tab.Chew) 750 mg PO Q4H PRN PRN Reason: Heartburn Dextrose (Dextrose 50 % 25 Gm/50 Ml Syringe) 25 gm IVPUSH Q15M PRN; Protocol PRN Reason: per Hypoglycemia Standing Ord. Last Admin: 08/24/25 04:50 Dose: 25 gm Documented By: JEAN-PIERRE Furosemide (Furosemide 20 Mg/2 Ml Vial) 40 mg IVPUSH BID@0900,1800 [facility]; Protocol Last Admin: 08/25/25 07:56 Dose: 40 mg Documented By: DUY Glucose (Glucose Gel 15 Gm Gel..Gram.) 15 gm PO Q15M PRN; Protocol PRN Reason: per Hypoglycemia Standing Ord. Heparin Sodium (Porcine) (Heparin Sodium,Porcine 5,000 Unit/Ml Vial) 5,000 unit SUBCUT Q12H [facility] Last Admin: 08/25/25 12:13 Dose: 5,000 unit Documented By: DUY Insulin Human Lispro (Insulin Lispro 100 Unit/Ml 3 Ml Vial) 0 unit SUBCUT QIDACHS [facility]; Protocol Last Admin: 08/25/25 12:13 Dose: 4 unit Documented By: DUY Levothyroxine Sodium (Levothyroxine Sodium 200 Mcg Tablet) 200 mcg PO DAILY@0600 [facility] Last Admin: 08/25/25 07:01 Dose: 200 mcg Documented By: NICOLA Linezolid (Linezolid 600 Mg Tablet) 600 mg PO Q12H [facility] Last Admin: 08/25/25 14:22 Dose: 600 mg Documented By: DUY Lorazepam (Lorazepam 1 Mg Tablet) 1 mg PO Q6H PRN PRN Reason: Anxiety Last Admin: 08/25/25 14:22 Dose: 1 mg Documented By: DUY Magnesium Hydroxide (Milk Of Magnesia 30 Ml Oral.Susp) 30 ml PO DAILY PRN PRN Reason: Constipation Melatonin (Melatonin 3 Mg Tablet) 6 mg PO BEDTIME PRN PRN Reason: Insomnia Nystatin (Nystatin Powder 15 Gm Bottle) 1 appl TOPICAL TID [facility]; Protocol Last Admin: 08/25/25 08:06 Dose: Not Given Documented By: DUY Non-Admin Reason: Patient Refused Ondansetron HCl (Ondansetron Hcl 4 Mg/2 Ml Vial) 4 mg IVPUSH Q8H PRN PRN Reason: Nausea and Vomiting Polyethylene Glycol (Polyethylene Glycol 3350 17 Gm Powd.Pack) 17 gm PO DAILY PRN PRN Reason: Constipation Senna (Sennosides 8.6 Mg Tablet) 17.2 mg PO BEDTIME [facility] Last Admin: 08/24/25 21:45 Dose: Not Given Documented By: NICOLA Non-Admin Reason: Patient Refused Sodium Chloride (0.9 % Sodium Chloride Flush 3 Ml Syringe) 3 ml IVFLUSH QSHIFT [facility] Last Admin: 08/25/25 08:03 Dose: 3 ml Documented By: DUY Labs 08/25/25 08:34 08/25/25 08:34 Labs: Laboratory Results - last 24 hr 08/24/25 08/24/25 08/24/25 15:48 18:02 19:02 MCV MCH MCHC RDW Plt Count MPV Immature Gran % (Auto) Neut % (Auto) Lymph % (Auto) Waller % (Auto) Eos % (Auto) Baso % (Auto) Lymph # (Auto) Waller # (Auto) Eos # (Auto) Baso # (Auto) Abs Immat Gran (auto) Absolute Neuts (auto) Absolute Nucleated RBC Nucleated RBC % (auto) Anion Gap Estim Creat Clear Calc Estimated GFR POC Glucose 193 H 171 H Random Glucose Calcium Stl C. cayetanensis PCR Stool Rotavirus A PCR Stl Adenov F 40/41 PCR Stool Astrovirus (PCR) Stool Campylobacter PCR Stool Cryptosporidium PCR Stl Sh Tox Pr E STEC PCR Stool E coli O157 PCR Stl Enterotoxigenic E PCR Stool EPEC (PCR) Stool EAEC (PCR) Stl E. histolytica PCR Stool Giardia Lamblia PCR Stl P. shigelloides PCR Stool Salmonella PCR Stool Sapovirus (PCR) Stl Shigella/EIEC PCR St Y.enterocolitica PCR Stool Vibrio (PCR) Stl Vibrio cholerae PCR Stl Norovirus GI/GII PCR Random Vancomycin 14.6 L 08/24/25 08/24/25 08/25/25 20:38 22:04 06:58 MCV MCH MCHC RDW Plt Count MPV Immature Gran % (Auto) Neut % (Auto) Lymph % (Auto) Waller % (Auto) Eos % (Auto) Baso % (Auto) Lymph # (Auto) Waller # (Auto) Eos # (Auto) Baso # (Auto) Abs Immat Gran (auto) Absolute Neuts (auto) Absolute Nucleated RBC Nucleated RBC % (auto) Anion Gap Estim Creat Clear Calc 25.8 Estimated GFR 23 POC Glucose 215 H Random Glucose Calcium Stl C. cayetanensis PCR Not Detected Stool Rotavirus A PCR Not Detected Stl Adenov F 40/41 PCR Not Detected Stool Astrovirus (PCR) Not Detected Stool Campylobacter PCR Not Detected Stool Cryptosporidium PCR Not Detected Stl Sh Tox Pr E STEC PCR Not Detected Stool E coli O157 PCR Not applicable Stl Enterotoxigenic E PCR Not Detected Stool EPEC (PCR) Not Detected Stool EAEC (PCR) Not Detected Stl E. histolytica PCR Not Detected Stool Giardia Lamblia PCR Not Detected Stl P. shigelloides PCR Not Detected Stool Salmonella PCR Not Detected Stool Sapovirus (PCR) Not Detected Stl Shigella/EIEC PCR Not Detected St Y.enterocolitica PCR Detected A Stool Vibrio (PCR) Not Detected Stl Vibrio cholerae PCR Not Detected Stl Norovirus GI/GII PCR Not Detected Random Vancomycin 08/25/25 08/25/25 08/25/25 07:46 08:34 11:25 MCV 95.3 MCH 28.5 MCHC 29.9 L RDW 15.9 Plt Count 254 MPV 9.2 L Immature Gran % (Auto) 0.6 H Neut % (Auto) 81.2 H Lymph % (Auto) 6.5 L Waller % (Auto) 6.5 Eos % (Auto) 4.3 H Baso % (Auto) 0.9 Lymph # (Auto) 0.5 L Waller # (Auto) 0.5 Eos # (Auto) 0.3 Baso # (Auto) 0.1 Abs Immat Gran (auto) 0.05 H Absolute Neuts (auto) 6.4 Absolute Nucleated RBC 0.000 Nucleated RBC % (auto) 0.0 Anion Gap 16 Estim Creat Clear Calc 25.3 Estimated GFR 22 POC Glucose 86 231 H Random Glucose 148 H Calcium 7.8 L Stl C. cayetanensis PCR Stool Rotavirus A PCR Stl Adenov F 40/41 PCR Stool Astrovirus (PCR) Stool Campylobacter PCR Stool Cryptosporidium PCR Stl Sh Tox Pr E STEC PCR Stool E coli O157 PCR Stl Enterotoxigenic E PCR Stool EPEC (PCR) Stool EAEC (PCR) Stl E. histolytica PCR Stool Giardia Lamblia PCR Stl P. shigelloides PCR Stool Salmonella PCR Stool Sapovirus (PCR) Stl Shigella/EIEC PCR St Y.enterocolitica PCR Stool Vibrio (PCR) Stl Vibrio cholerae PCR Stl Norovirus GI/GII PCR Random Vancomycin Microbiology Microbiology Results: Microbiology 08/23/25 19:35 Blood Culture - Preliminary Blood - Venous No growth after 24 hours. 08/23/25 19:35 Blood Culture - Preliminary Blood - Venous No growth after 24 hours. Assessment and Plan (1) Pulmonary hypertension: Status: Acute (2) NSTEMI (non-ST elevated myocardial infarction): Status: Acute (3) Elevated troponin: Status: Acute (4) Diabetes mellitus: Status: Acute (5) Morbid obesity: Status: Acute (6) Chronic kidney disease (CKD), stage 4: Status: Acute (7) Acute kidney injury: Status: Acute (8) COPD (chronic obstructive pulmonary disease): Status: Acute (9) Bilateral cellulitis of lower leg: Status: Acute (10) Chronic respiratory failure with hypoxia and hypercapnia: Status: Acute (11) Obesity hypoventilation syndrome: Status: Acute Plan 79-year-old female, with a history of type 2 DM, CKD stage 4, COPD chronic hypoxia/hypercarbia home O2 4 L, TEZ/OHS, hypothyroidism, chronic indwelling Francisco, HFpEF, represents with lower extremity erythema, admitted with bilateral lower extremity nonpurulent cellulitis, acute hypoxic respiratory failure 2/2 acute CHF exacerbation with superimposed exacerbation of chronic hypoxic/hypercarbic respiratory failure. Acute hypoxic respiratory failure Acute CHF exacerbation Acute exacerbation of chronic hypoxic/hypercarbic respiratory failure COPD on home O2 4 L Presents with acute respiratory distress in the setting of mild volume overload with bilateral pleural effusions and prerenal acute kidney injury. Lower extremity swelling noted. Patient is currently on furosemide, diuresing appropriately She is with the patient's chronic hypoxia and hypercarbic drive, and respiratory distress, we will initiate low-dose morphine to assist with comfort. PLAN - 40 mg b.i.d. IV furosemide - daily weights - low-sodium diet - intake/output q.6 hourly - Fluid restriction 1.5 L - Monitor BMP Bilateral lower extremity nonpurulent cellulitis Pt started on Vanco and Zosyn in the ED Discontinued and started on doxycycline and ceftriaxone for staph/strep coverage. Infectious disease pending-will adjust medications according to recommendations MARJORIE CKD stage 4 Hyperkalemia Etiology likely 2/2 cardiorenal syndrome Measure I/Os QS Avoid nephrotoxic medications including NSAIDS Avoid hypotension Urine studies requested, UA with reflex ordered Chronic francisco in place Diuresing with furosemide 40 mg b.i.d. IV Monitor BMPAnd urinary output TEZ/OHS Non compliant with APAP. Settings BiPAP at night FIO2 28, IPAP 12, EPAP 6 Pannus intertrigo Nystatin powder IDDM SSI Lantus ordered Diabetic Diet HTN Avoid antihypertensives on admission, BP is stable but 117 systolic Avoid hypotension Low Na diet HLD Continue statin, LFTs stable Hypothyrpidism TSH with relex pending Continue levothyroxine once med rec completed, adjust if indicated MEMO H/H currently stable, 07/25.2 No indciation for transfusion QUALITY METRICS - VTE: Heparin 5000 t.i.d. SQ - CODE STATUS: Full code - DIET: Cardiac, 1.5 L fluid restriction Total time managing care of this patient today: 45 minutes. Quality Stroke Does the patient have a stroke diagnosis?: No Reason for No Anti-thrombotic by Day Two: N/A - Med Ordered VTE Prior VTE?: No VTE Risk Level:: Medical - moderate - high VTE Device Contraindication: Treatment Not Tolerated VTE Drug Contraindication: N/A - Med Ordered
[2025-08-25 17:16] LABS: Glucose, Whole Blood 145 mg/dL (60-115)
--- NOTE | 2025-08-25 18:28 | P.PNNP_ITS ---
Subjective Subjective Date of Service: 08/25/25 Interval history: Events noted Physical Exam 2 Vital Signs: Vital Signs: Last Vital Signs Temp 97.4 F 08/25/25 15:37 Pulse 68 08/25/25 16:42 Resp 20 08/25/25 16:42 BP 130/62 08/25/25 15:37 Pulse Ox 100 08/25/25 15:37 O2 Del Method Nasal Cannula 08/25/25 15:37 O2 Flow Rate 4 08/25/25 15:37 BMI result Body Mass Index 35.5 Extrem: Other: bilateral redness LE Objective Data Labs 08/25/25 08:34 08/25/25 08:34 Labs: Laboratory Results - last 24 hr 08/24/25 08/24/25 08/24/25 19:02 20:38 22:04 WBC RBC Hgb Hct MCV MCH MCHC RDW Plt Count MPV Immature Gran % (Auto) Neut % (Auto) Lymph % (Auto) Benson % (Auto) Eos % (Auto) Baso % (Auto) Lymph # (Auto) Benson # (Auto) Eos # (Auto) Baso # (Auto) Abs Immat Gran (auto) Absolute Neuts (auto) Absolute Nucleated RBC Nucleated RBC % (auto) Sodium Potassium Chloride Carbon Dioxide Anion Gap BUN Creatinine Estim Creat Clear Calc Estimated GFR POC Glucose 215 H Random Glucose Calcium Stl C. cayetanensis PCR Not Detected Stool Rotavirus A PCR Not Detected Stl Adenov F 40/41 PCR Not Detected Stool Astrovirus (PCR) Not Detected Stool Campylobacter PCR Not Detected Stool Cryptosporidium PCR Not Detected Stl Sh Tox Pr E STEC PCR Not Detected Stool E coli O157 PCR Not applicable Stl Enterotoxigenic E PCR Not Detected Stool EPEC (PCR) Not Detected Stool EAEC (PCR) Not Detected Stl E. histolytica PCR Not Detected Stool Giardia Lamblia PCR Not Detected Stl P. shigelloides PCR Not Detected Stool Salmonella PCR Not Detected Stool Sapovirus (PCR) Not Detected Stl Shigella/EIEC PCR Not Detected St Y.enterocolitica PCR Detected A Stool Vibrio (PCR) Not Detected Stl Vibrio cholerae PCR Not Detected Stl Norovirus GI/GII PCR Not Detected Random Vancomycin 14.6 L 08/25/25 08/25/25 08/25/25 06:58 07:46 08:34 WBC 7.9 RBC 2.77 L Hgb 7.9 L Hct 26.4 L MCV 95.3 MCH 28.5 MCHC 29.9 L RDW 15.9 Plt Count 254 MPV 9.2 L Immature Gran % (Auto) 0.6 H Neut % (Auto) 81.2 H Lymph % (Auto) 6.5 L Benson % (Auto) 6.5 Eos % (Auto) 4.3 H Baso % (Auto) 0.9 Lymph # (Auto) 0.5 L Benson # (Auto) 0.5 Eos # (Auto) 0.3 Baso # (Auto) 0.1 Abs Immat Gran (auto) 0.05 H Absolute Neuts (auto) 6.4 Absolute Nucleated RBC 0.000 Nucleated RBC % (auto) 0.0 Sodium 142 Potassium 4.7 Chloride 108 Carbon Dioxide 23 Anion Gap 16 BUN 105 H Creatinine 2.10 H 2.14 H Estim Creat Clear Calc 25.8 25.3 Estimated GFR 23 22 POC Glucose 86 Random Glucose 148 H Calcium 7.8 L Stl C. cayetanensis PCR Stool Rotavirus A PCR Stl Adenov F PCR Stool Astrovirus (PCR) Stool Campylobacter PCR Stool Cryptosporidium PCR Stl Sh Tox Pr E STEC PCR Stool E coli O157 PCR Stl Enterotoxigenic E PCR Stool EPEC (PCR) Stool EAEC (PCR) Stl E. histolytica PCR Stool Giardia Lamblia PCR Stl P. shigelloides PCR Stool Salmonella PCR Stool Sapovirus (PCR) Stl Shigella/EIEC PCR St Y.enterocolitica PCR Stool Vibrio (PCR) Stl Vibrio cholerae PCR Stl Norovirus GI/GII PCR Random Vancomycin 08/25/25 08/25/25 11:25 16:42 WBC RBC Hgb Hct MCV MCH MCHC RDW Plt Count MPV Immature Gran % (Auto) Neut % (Auto) Lymph % (Auto) Benson % (Auto) Eos % (Auto) Baso % (Auto) Lymph # (Auto) Benson # (Auto) Eos # (Auto) Baso # (Auto) Abs Immat Gran (auto) Absolute Neuts (auto) Absolute Nucleated RBC Nucleated RBC % (auto) Sodium Potassium Chloride Carbon Dioxide Anion Gap BUN Creatinine Estim Creat Clear Calc Estimated GFR POC Glucose 231 H 145 H Random Glucose Calcium Stl C. cayetanensis PCR Stool Rotavirus A PCR Stl Adenov F 40/41 PCR Stool Astrovirus (PCR) Stool Campylobacter PCR Stool Cryptosporidium PCR Stl Sh Tox Pr E STEC PCR Stool E coli O157 PCR Stl Enterotoxigenic E PCR Stool EPEC (PCR) Stool EAEC (PCR) Stl E. histolytica PCR Stool Giardia Lamblia PCR Stl P. shigelloides PCR Stool Salmonella PCR Stool Sapovirus (PCR) Stl Shigella/EIEC PCR St Y.enterocolitica PCR Stool Vibrio (PCR) Stl Vibrio cholerae PCR Stl Norovirus GI/GII PCR Random Vancomycin Microbiology Microbiology Results: Microbiology 08/23/25 19:35 Blood - Venous Blood Culture - Preliminary No growth after 24 hours. 08/23/25 19:35 Blood - Venous Blood Culture - Preliminary No growth after 24 hours. Procedures Date of Service Date of Service: 08/25/25 Assessment & Plan Assessment and plan (1) Chronic kidney disease (CKD), stage 4: Status: Acute (2) Acute kidney injury: Status: Acute Plan MARJORIE superimposed on CKD. MARJORIE most likely due to hypoperfusion. Underlying CKD with a baseline creatinine of 1.4-1.8 mg/dL. Marginal improvement in creatinine since admission. No indication for dialysis. No obstruction based on renal ultrasonogram Concur with current medical management Mild hyperkalemia at time admission. Keep her on low-potassium diet Lokelma p.r.n. if potassium more than 5.2. Time Spent With Patient Time: Total time managing care of this patient today ____ minutes. Progress Note: Quality Stroke Does the patient have a stroke diagnosis?: No Reason for No Anti-thrombotic by Day Two: N/A - Med Ordered
[2025-08-25 20:55] LABS: Glucose, Whole Blood 207 mg/dL (60-115)
[2025-08-25] MEDS: Betamethasone Dip Aug 0.05% Cr 15 GM TUBE 1 APPL TOPICAL (21:42)
[2025-08-25] MEDS: Albuterol Sulfate (0.083%) 2.5 MG/3 ML VIAL.NEB INHALE (22:17)
[2025-08-26] VITALS (14 sets, daily range): BP systolic 129–163; BP diastolic 59–70; PULSE 52–78; RESP 18–37; TEMP 36.2–36.9; O2SAT 90–100
[2025-08-26 07:17] LABS: Glucose, Whole Blood 67 mg/dL (60-115)
[2025-08-26 07:19] LABS: Anion Gap 19 (12-20); Blood Urea Nitrogen 102 mg/dL (9-16); Calcium 7.7 mg/dL (8.4-10.2); Carbon Dioxide 21 mmol/L (22-29); Chloride 108 mmol/L (96-108); Creatinine Clr Calc Pharmacy 22.7; Estimated Glomerular Filt Rate 20; Potassium 4.9 mmol/L (3.3-5.1); Sodium 143 mmol/L (135-145)
[2025-08-26 07:50] LABS: Glucose, Whole Blood 76 mg/dL (60-115)
[2025-08-26] MEDS: Furosemide 20 MG/2 ML VIAL 40 MG IVPUSH (08:20)
[2025-08-26] MEDS: 0.9 % Sodium Chloride Flush 3 ML SYRINGE IVFLUSH (08:20)
[2025-08-26] MEDS: Betamethasone Dip Aug 0.05% Cr 15 GM TUBE 1 APPL TOPICAL ×2 (08:21→21:14)
[2025-08-26 11:05] LABS: NT Pro B Type Natriuretic Pept 9059.1 pg/mL (<300)
[2025-08-26] MEDS: Albuterol/Iprat 2.5/0.5MG 3 ML AMPUL.NEB INHALE ×3 (11:20→20:15)
[2025-08-26 11:24] LABS: Glucose, Whole Blood 157 mg/dL (60-115)
[2025-08-26 16:14] LABS: Glucose, Whole Blood 192 mg/dL (60-115)
--- NOTE | 2025-08-26 16:22 | HO.PM.IMPN ---
Subjective Subjective Date of Service: 08/26/25 Interval History: Fatigued and sleepy throughout the day. Utilizing APAP while asleep. No other complaints Physical Exam Exam: Exam: General: A&O x3, oriented to time place person and situation. Patient uncomfortable Cardiac: S1, S2 auscultated with no S3/4, no MRG. Well perfused. Respiratory: Reduced breath sounds throughout all lung zones, with bibasilar crepitations, and bilateral upper lobe wheezing GI/ : No abdominal pain on palpation, no masses or distentions. MSK: Normal ambulation without pain at bony prominences or musculature Extremities: Bilateral lower extremity erythema to the mid israel, with tenderness to palpation and light touch; bilateral lower extremity edema 2 to 3+ Neurological: Normal neurological examination on overview, without obvious CN II-XII abnormalities. Vital Signs: Vital Signs: Last Vital Signs Temp 98.4 F 08/26/25 15:31 Pulse 53 08/26/25 15:31 Resp 18 08/26/25 15:31 BP 143/63 H 08/26/25 15:31 Pulse Ox 93 08/26/25 15:31 O2 Del Method Nasal Cannula 08/26/25 15:31 O2 Flow Rate 4 08/26/25 15:31 BMI result Body Mass Index 35.5 Objective Data Active Medications Acetaminophen (Acetaminophen 325 Mg Tablet) 650 mg PO Q6H PRN PRN Reason: Pain, Mild 1-3,fever,headache Last Admin: 08/25/25 15:41 Dose: 650 mg Documented By: DUY Albuterol Sulfate (Albuterol Sulfate (0.083%) 2.5 Mg/3 Ml Vial.Neb) 2.5 mg INHALE Q4H PRN PRN Reason: shortness of breath or wheezing Last Admin: 08/25/25 22:17 Dose: 2.5 mg Documented By: VARSHA Albuterol Sulfate (Albuterol Sulfate 90 Mcg 8 Gm Inhaler) 2 puff INHALE Q6H PRN PRN Reason: Shortness Of Breath Or Wheezing Albuterol/Ipratropium (Albuterol/Iprat 2.5/0.5mg 3 Ml Ampul.Neb) 3 ml INHALE Q4H PRN PRN Reason: Shortness of Breath/Wheezing Last Admin: 08/26/25 11:20 Dose: 3 ml Documented By: ALBARO Amlodipine Besylate (Amlodipine Besylate 5 Mg Tablet) 5 mg PO DAILY [facility]; Protocol Last Admin: 08/26/25 08:19 Dose: 5 mg Documented By: MELISSA Atorvastatin Calcium (Atorvastatin Calcium 40 Mg Tablet) 40 mg PO BEDTIME [facility] Last Admin: 08/25/25 21:42 Dose: 40 mg Documented By: RICKEY Betamethasone Dipropion Augmented (Betamethasone Dip Aug 0.05% Cr 15 Gm Tube) 1 appl TOPICAL BID [facility]; Protocol Last Admin: 08/26/25 08:21 Dose: 1 appl Documented By: MELISSA Budesonide (Budesonide 0.5 Mg/2 Ml Ampul.Neb) 0.5 mg INHALE RBID [facility] Last Admin: 08/26/25 07:42 Dose: 0.5 mg Documented By: ALBARO Calcium Carbonate (Calcium Carbonate 750 Mg Tab.Chew) 750 mg PO Q4H PRN PRN Reason: Heartburn Dextrose (Dextrose 50 % 25 Gm/50 Ml Syringe) 25 gm IVPUSH Q15M PRN; Protocol PRN Reason: per Hypoglycemia Standing Ord. Last Admin: 08/24/25 04:50 Dose: 25 gm Documented By: JEAN-PIERRE Furosemide (Furosemide 20 Mg/2 Ml Vial) 40 mg IVPUSH BID@0900,1800 [facility]; Protocol On Hold: 08/26/25 09:51 Last Admin: 08/26/25 08:20 Dose: 40 mg Documented By: MELISSA Glucose (Glucose Gel 15 Gm Gel..Gram.) 15 gm PO Q15M PRN; Protocol PRN Reason: per Hypoglycemia Standing Ord. Heparin Sodium (Porcine) (Heparin Sodium,Porcine 5,000 Unit/Ml Vial) 5,000 unit SUBCUT Q12H [facility] Last Admin: 08/26/25 11:05 Dose: 5,000 unit Documented By: MELISSA Insulin Human Lispro (Insulin Lispro 100 Unit/Ml 3 Ml Vial) 0 unit SUBCUT QIDACHS [facility]; Protocol Last Admin: 08/26/25 11:52 Dose: 2 unit Documented By: MELISSA Levothyroxine Sodium (Levothyroxine Sodium 200 Mcg Tablet) 200 mcg PO DAILY@0600 [facility] Last Admin: 08/26/25 04:38 Dose: 200 mcg Documented By: RICKEY Comments: per pt request Linezolid (Linezolid 600 Mg Tablet) 600 mg PO Q12H [facility] Last Admin: 08/26/25 14:04 Dose: 600 mg Documented By: MELISSA Lorazepam (Lorazepam 1 Mg Tablet) 1 mg PO Q6H PRN PRN Reason: Anxiety Last Admin: 08/26/25 11:05 Dose: 1 mg Documented By: MELISSA Magnesium Hydroxide (Milk Of Magnesia 30 Ml Oral.Susp) 30 ml PO DAILY PRN PRN Reason: Constipation Melatonin (Melatonin 3 Mg Tablet) 6 mg PO BEDTIME PRN PRN Reason: Insomnia Morphine Sulfate (Morphine Sulfate 4 Mg/Ml Cartridge) 0.5 mg IVPUSH Q6H PRN; Protocol PRN Reason: respiraory distress Last Admin: 08/26/25 09:03 Dose: 0.5 mg Documented By: MELISSA Nystatin (Nystatin Powder 15 Gm Bottle) 1 appl TOPICAL TID [facility]; Protocol Last Admin: 08/26/25 08:21 Dose: 1 appl Documented By: MELISSA Ondansetron HCl (Ondansetron Hcl 4 Mg/2 Ml Vial) 4 mg IVPUSH Q8H PRN PRN Reason: Nausea and Vomiting Polyethylene Glycol (Polyethylene Glycol 3350 17 Gm Powd.Pack) 17 gm PO DAILY PRN PRN Reason: Constipation Senna (Sennosides 8.6 Mg Tablet) 17.2 mg PO BEDTIME [facility] Last Admin: 08/25/25 21:43 Dose: Not Given Documented By: RICKEY Non-Admin Reason: Patient Refused Sodium Chloride (0.9 % Sodium Chloride Flush 3 Ml Syringe) 3 ml IVFLUSH QSHIFT [facility] Last Admin: 08/26/25 08:20 Dose: 3 ml Documented By: MELISSA Labs 08/25/25 08:34 08/26/25 06:53 Labs: Laboratory Results - last 24 hr 08/25/25 08/25/25 08/26/25 16:42 20:49 06:53 Anion Gap 19 Estim Creat Clear Calc 22.7 Estimated GFR 20 POC Glucose 145 H 207 H Random Glucose 68 Calcium 7.7 L NT-Pro-B Natriuret Pep 9059.1 H 08/26/25 08/26/25 08/26/25 07:06 07:32 11:05 Anion Gap Estim Creat Clear Calc Estimated GFR POC Glucose 67 76 157 H Random Glucose Calcium NT-Pro-B Natriuret Pep 08/26/25 16:06 Anion Gap Estim Creat Clear Calc Estimated GFR POC Glucose 192 H Random Glucose Calcium NT-Pro-B Natriuret Pep Microbiology Microbiology Results: Microbiology 08/23/25 19:35 Blood Culture - Preliminary Blood - Venous No growth after 48 hours. 08/23/25 19:35 Blood Culture - Preliminary Blood - Venous No growth after 48 hours. Assessment and Plan (1) Pulmonary hypertension: Status: Acute (2) NSTEMI (non-ST elevated myocardial infarction): Status: Acute (3) Elevated troponin: Status: Acute (4) Diabetes mellitus: Status: Acute (5) Morbid obesity: Status: Acute (6) Chronic kidney disease (CKD), stage 4: Status: Acute (7) Acute kidney injury: Status: Acute (8) Hypomagnesemia: Status: Acute (9) Hypokalemia: Status: Acute (10) COPD (chronic obstructive pulmonary disease): Status: Acute (11) Chronic respiratory failure with hypoxia and hypercapnia: Status: Acute (12) Obesity hypoventilation syndrome: Status: Acute Plan 79-year-old female, with a history of type 2 DM, CKD stage 4, COPD chronic hypoxia/hypercarbia home O2 4 L, TEZ/OHS, hypothyroidism, chronic indwelling Francisco, HFpEF, represents with lower extremity erythema, admitted with bilateral lower extremity nonpurulent cellulitis, acute hypoxic respiratory failure 2/2 acute CHF exacerbation with superimposed exacerbation of chronic hypoxic/hypercarbic respiratory failure. Acute hypoxic respiratory failure Acute CHF exacerbation Acute exacerbation of chronic hypoxic/hypercarbic respiratory failure COPD on home O2 4 L Presents with acute respiratory distress in the setting of mild volume overload with bilateral pleural effusions and prerenal acute kidney injury. Lower extremity swelling noted. Patient is currently on furosemide, diuresing appropriately She is with the patient's chronic hypoxia and hypercarbic drive, and respiratory distress, we will initiate low-dose morphine to assist with comfort. PLAN - 40 mg b.i.d. IV furosemide - daily weights - low-sodium diet - intake/output q.6 hourly - Fluid restriction 1.5 L - Monitor BMP Bilateral lower extremity nonpurulent cellulitis Pt started on Vanco and Zosyn in the ED Discontinued and started on doxycycline and ceftriaxone for staph/strep coverage. Infectious disease pending-will adjust medications according to recommendations MARJORIE CKD stage 4 Hyperkalemia Etiology likely 2/2 cardiorenal syndrome Measure I/Os QS Avoid nephrotoxic medications including NSAIDS Avoid hypotension Urine studies requested, UA with reflex ordered Chronic francisco in place Diuresing with furosemide 40 mg b.i.d. IV Monitor BMP and urinary output TEZ/OHS Non compliant with APAP. Settings BiPAP at night FIO2 28, IPAP 12, EPAP 6 Pannus intertrigo Nystatin powder IDDM SSI Lantus ordered Diabetic Diet HTN Avoid antihypertensives on admission, BP is stable but 117 systolic Avoid hypotension Low Na diet HLD Continue statin, LFTs stable Hypothyrpidism TSH with relex pending Continue levothyroxine once med rec completed, adjust if indicated MEMO H/H currently stable, 07/25.2 No indciation for transfusion [facility] [employer] - VTE: Heparin 5000 t.i.d. SQ - CODE STATUS: Full code - DIET: Cardiac, 1.5 L fluid restriction Total time managing care of this patient today: 35 minutes. Quality Stroke Does the patient have a stroke diagnosis?: No Reason for No Anti-thrombotic by Day Two: N/A - Med Ordered VTE Prior VTE?: No VTE Risk Level:: Medical - moderate - high VTE Device Contraindication: Treatment Not Tolerated VTE Drug Contraindication: N/A - Med Ordered
[2025-08-26 21:00] LABS: Glucose, Whole Blood 210 mg/dL (60-115)
[2025-08-27] VITALS (16 sets, daily range): BP systolic 113–147; BP diastolic 58–67; PULSE 49–102; RESP 16–28; TEMP 36.1–36.4; O2SAT 90–100
[2025-08-27] MEDS: Albuterol/Iprat 2.5/0.5MG 3 ML AMPUL.NEB INHALE ×6 (00:17→23:17)
[2025-08-27 07:51] LABS: Glucose, Whole Blood 111 mg/dL (60-115)
[2025-08-27 08:08] LABS: Anion Gap 17 (12-20); Blood Urea Nitrogen 105 mg/dL (9-16); Calcium 7.7 mg/dL (8.4-10.2); Carbon Dioxide 23 mmol/L (22-29); Chloride 107 mmol/L (96-108); Creatinine Clr Calc Pharmacy 22.2; Estimated Glomerular Filt Rate 19; Potassium 4.8 mmol/L (3.3-5.1); Sodium 142 mmol/L (135-145)
[2025-08-27] MEDS: 0.9 % Sodium Chloride Flush 3 ML SYRINGE IVFLUSH ×2 (09:19→17:31)
[2025-08-27] MEDS: Betamethasone Dip Aug 0.05% Cr 15 GM TUBE 1 APPL TOPICAL (09:21)
[2025-08-27 11:07] LABS: Glucose, Whole Blood 164 mg/dL (60-115)
--- NOTE | 2025-08-27 14:46 | HO.PM.IMPN ---
Subjective Subjective Date of Service: 08/27/25 Interval History: Reports her breathing has improved compared to yesterday. No new complaints at this time. Reports lower extremities have also improved: Less pain, less red Review of Systems Review of Systems: Yes all other systems are reviewed and are negative Physical Exam Exam: Exam: General: A&O x3, oriented to time place person and situation. Patient uncomfortable Cardiac: S1, S2 auscultated with no S3/4, no MRG. Well perfused. Respiratory: Reduced breath sounds throughout all lung zones, with bibasilar crepitations, and bilateral upper lobe wheezing - tight lungs with poor air vent GI/ : No abdominal pain on palpation, no masses or distentions. MSK: Normal ambulation without pain at bony prominences or musculature Extremities: Bilateral lower extremity erythema to the mid [place], with tenderness to palpation and light touch; bilateral lower extremity edema 2 to 3+ Neurological: Normal neurological examination on overview, without obvious CN II-XII abnormalities. Vital Signs: Vital Signs: Last Vital Signs Temp 97.4 F 08/27/25 11:32 Pulse 60 08/27/25 13:44 Resp 18 08/27/25 13:44 BP 113/58 L 08/27/25 11:32 Pulse Ox 100 08/27/25 11:32 O2 Del Method Nasal Cannula 08/27/25 11:32 O2 Flow Rate 4 08/27/25 11:32 BMI result Body Mass Index 35.5 Objective Data Active Medications Acetaminophen (Acetaminophen 325 Mg Tablet) 650 mg PO Q6H PRN PRN Reason: Pain, Mild 1-3,fever,headache Last Admin: 08/25/25 15:41 Dose: 650 mg Documented By: DUY Albuterol Sulfate (Albuterol Sulfate (0.083%) 2.5 Mg/3 Ml Vial.Neb) 2.5 mg INHALE Q4H PRN PRN Reason: shortness of breath or wheezing Last Admin: 08/25/25 22:17 Dose: 2.5 mg Documented By: VARSHA Albuterol Sulfate (Albuterol Sulfate 90 Mcg 8 Gm Inhaler) 2 puff INHALE Q6H PRN PRN Reason: Shortness Of Breath Or Wheezing Albuterol/Ipratropium (Albuterol/Iprat 2.5/0.5mg 3 Ml Ampul.Neb) 3 ml INHALE Q4H PRN PRN Reason: Shortness of Breath/Wheezing Last Admin: 08/27/25 13:43 Dose: 3 ml Documented By: RAHEL Amlodipine Besylate (Amlodipine Besylate 5 Mg Tablet) 5 mg PO DAILY [facility]; Protocol Last Admin: 08/27/25 09:20 Dose: 5 mg Documented By: MELISSA Atorvastatin Calcium (Atorvastatin Calcium 40 Mg Tablet) 40 mg PO BEDTIME [facility] Last Admin: 08/26/25 21:12 Dose: 40 mg Documented By: PADDY Betamethasone Dipropion Augmented (Betamethasone Dip Aug 0.05% Cr 15 Gm Tube) 1 appl TOPICAL BID [facility]; Protocol Last Admin: 08/27/25 09:21 Dose: 1 appl Documented By: MELISSA Budesonide (Budesonide 0.5 Mg/2 Ml Ampul.Neb) 0.5 mg INHALE RBID [facility] Last Admin: 08/27/25 06:02 Dose: 0.5 mg Documented By: ADRIANA Calcium Carbonate (Calcium Carbonate 750 Mg Tab.Chew) 750 mg PO Q4H PRN PRN Reason: Heartburn Dextrose (Dextrose 50 % 25 Gm/50 Ml Syringe) 25 gm IVPUSH Q15M PRN; Protocol PRN Reason: per Hypoglycemia Standing Ord. Last Admin: 08/24/25 04:50 Dose: 25 gm Documented By: JEAN-PIERRE Furosemide (Furosemide 20 Mg/2 Ml Vial) 40 mg IVPUSH BID@0900,1800 [facility]; Protocol On Hold: 08/26/25 09:51 Last Admin: 08/26/25 08:20 Dose: 40 mg Documented By: MELISSA Glucose (Glucose Gel 15 Gm Gel..Gram.) 15 gm PO Q15M PRN; Protocol PRN Reason: per Hypoglycemia Standing Ord. Heparin Sodium (Porcine) (Heparin Sodium,Porcine 5,000 Unit/Ml Vial) 5,000 unit SUBCUT Q12H [facility] Last Admin: 08/27/25 11:59 Dose: Not Given Documented By: MELISSA Non-Admin Reason: Patient Refused Insulin Human Lispro (Insulin Lispro 100 Unit/Ml 3 Ml Vial) 0 unit SUBCUT QIDACHS [facility]; Protocol Last Admin: 08/27/25 11:59 Dose: Not Given Documented By: MELISSA Non-Admin Reason: Patient Asleep Comments: And refused insulin stating she wants to sleep. Levothyroxine Sodium (Levothyroxine Sodium 200 Mcg Tablet) 200 mcg PO DAILY@0600 [facility] Last Admin: 08/27/25 05:15 Dose: 200 mcg Documented By: PADDY Linezolid (Linezolid 600 Mg Tablet) 600 mg PO Q12H [facility] Last Admin: 08/27/25 14:04 Dose: 600 mg Documented By: MELISSA Lorazepam (Lorazepam 1 Mg Tablet) 1 mg PO Q6H PRN PRN Reason: Anxiety Last Admin: 08/27/25 14:04 Dose: 1 mg Documented By: MELISSA Magnesium Hydroxide (Milk Of Magnesia 30 Ml Oral.Susp) 30 ml PO DAILY PRN PRN Reason: Constipation Melatonin (Melatonin 3 Mg Tablet) 6 mg PO BEDTIME PRN PRN Reason: Insomnia Last Admin: 08/27/25 01:36 EST Dose: 6 mg Documented By: PADDY Morphine Sulfate (Morphine Sulfate 4 Mg/Ml Cartridge) 0.5 mg IVPUSH Q6H PRN; Protocol PRN Reason: respiraory distress Last Admin: 08/26/25 09:03 Dose: 0.5 mg Documented By: MELISSA Nystatin (Nystatin Powder 15 Gm Bottle) 1 appl TOPICAL TID [facility]; Protocol Last Admin: 08/27/25 14:07 Dose: 1 appl Documented By: MELISSA Ondansetron HCl (Ondansetron Hcl 4 Mg/2 Ml Vial) 4 mg IVPUSH Q8H PRN PRN Reason: Nausea and Vomiting Polyethylene Glycol (Polyethylene Glycol 3350 17 Gm Powd.Pack) 17 gm PO DAILY PRN PRN Reason: Constipation Senna (Sennosides 8.6 Mg Tablet) 17.2 mg PO BEDTIME [facility] Last Admin: 08/26/25 21:12 Dose: Not Given Documented By: PADDY Non-Admin Reason: Patient Refused Sodium Chloride (0.9 % Sodium Chloride Flush 3 Ml Syringe) 3 ml IVFLUSH QSHIFT [facility] Last Admin: 08/27/25 09:19 Dose: 3 ml Documented By: MELISSA Labs 08/25/25 08:34 08/27/25 07:08 Labs: Laboratory Results - last 24 hr 08/26/25 08/26/25 08/27/25 16:06 20:56 07:08 Hold Purple Top SEE NOTE Anion Gap 17 Estim Creat Clear Calc 22.2 Estimated GFR 19 POC Glucose 192 H 210 H Random Glucose 106 Calcium 7.7 L 08/27/25 08/27/25 07:27 10:59 Hold Purple Top Anion Gap Estim Creat Clear Calc Estimated GFR POC Glucose 111 164 H Random Glucose Calcium Assessment and Plan (1) Pulmonary hypertension: Status: Acute (2) NSTEMI (non-ST elevated myocardial infarction): Status: Acute (3) Diabetes mellitus: Status: Acute (4) Morbid obesity: Status: Acute (5) Chronic kidney disease (CKD), stage 4: Status: Acute (6) Acute kidney injury: Status: Acute (7) COPD (chronic obstructive pulmonary disease): Status: Acute (8) Chronic respiratory failure with hypoxia and hypercapnia: Status: Acute (9) Obesity hypoventilation syndrome: Status: Acute Plan 79-year-old female, with a history of type 2 DM, CKD stage 4, COPD chronic hypoxia/hypercarbia home O2 4 L, TEZ/OHS, hypothyroidism, chronic indwelling Francisco, HFpEF, represents with lower extremity erythema, admitted with bilateral lower extremity nonpurulent cellulitis, acute hypoxic respiratory failure 2/2 acute CHF exacerbation with superimposed exacerbation of chronic hypoxic/hypercarbic respiratory failure. Acute hypoxic respiratory failure Acute CHF exacerbation Acute exacerbation of chronic hypoxic/hypercarbic respiratory failure COPD on home O2 4 L Presents with acute respiratory distress in the setting of mild volume overload with bilateral pleural effusions and prerenal acute kidney injury. Lower extremity swelling noted. Patient is currently on furosemide, diuresing appropriately She is with the patient's chronic hypoxia and hypercarbic drive, and respiratory distress, we will initiate low-dose morphine to assist with comfort. PLAN - 40 mg b.i.d. IV furosemide - daily weights - low-sodium diet - intake/output q.6 hourly - Fluid restriction 1.5 L - Monitor BMP Bilateral lower extremity nonpurulent cellulitis Pt started on Vanco and Zosyn in the ED Discontinued and started on doxycycline and ceftriaxone for staph/strep coverage. Infectious disease pending-will adjust medications according to recommendations MARJORIE CKD stage 4 Hyperkalemia Etiology likely 2/2 cardiorenal syndrome Measure I/Os QS Avoid nephrotoxic medications including NSAIDS Avoid hypotension Urine studies requested, UA with reflex ordered Chronic francisco in place Diuresing with furosemide 40 mg b.i.d. IV Monitor BMP and urinary output TEZ/OHS Non compliant with APAP. Settings BiPAP at night FIO2 28, IPAP 12, EPAP 6 Pannus intertrigo Nystatin powder IDDM SSI Lantus ordered Diabetic Diet HTN Avoid antihypertensives on admission, BP is stable but 117 systolic Avoid hypotension Low Na diet HLD Continue statin, LFTs stable Hypothyrpidism TSH with relex pending Continue levothyroxine once med rec completed, adjust if indicated MEMO H/H currently stable, 07/25.2 No indciation for transfusion [employer] - VTE: Heparin 5000 t.i.d. SQ - CODE STATUS: Full code - DIET: Cardiac, 1.5 L fluid restriction Total time managing care of this patient today: 35 minutes. Quality Stroke Does the patient have a stroke diagnosis?: No Reason for No Anti-thrombotic by Day Two: N/A - Med Ordered VTE Prior VTE?: No VTE Risk Level:: Medical - moderate - high VTE Device Contraindication: Treatment Not Tolerated VTE Drug Contraindication: N/A - Med Ordered
[2025-08-27 17:14] LABS: Glucose, Whole Blood 194 mg/dL (60-115)
[2025-08-27 21:39] LABS: Glucose, Whole Blood 183 mg/dL (60-115)
[2025-08-28] VITALS (12 sets, daily range): BP systolic 123–156; BP diastolic 58–70; PULSE 57–78; RESP 15–23; TEMP 36–37.2; O2SAT 92–100
[2025-08-28 03:04] LABS: Glucose, Whole Blood 116 mg/dL (60-115)
[2025-08-28] MEDS: Albuterol/Iprat 2.5/0.5MG 3 ML AMPUL.NEB INHALE ×4 (07:25→23:22)
[2025-08-28 07:41] LABS: Anion Gap 18 (12-20); Blood Urea Nitrogen 106 mg/dL (9-16); Calcium 7.9 mg/dL (8.4-10.2); Carbon Dioxide 24 mmol/L (22-29); Chloride 107 mmol/L (96-108); Creatinine Clr Calc Pharmacy 23.4; Estimated Glomerular Filt Rate 20; Potassium 4.8 mmol/L (3.3-5.1); Sodium 144 mmol/L (135-145)
[2025-08-28 08:14] LABS: Glucose, Whole Blood 104 mg/dL (60-115)
[2025-08-28] MEDS: Betamethasone Dip Aug 0.05% Cr 15 GM TUBE 1 APPL TOPICAL ×2 (08:34→20:45)
[2025-08-28] MEDS: 0.9 % Sodium Chloride Flush 3 ML SYRINGE IVFLUSH ×4 (08:36→20:02)
--- NOTE | 2025-08-28 09:04 | HO.PM.IMPN ---
Subjective Subjective Date of Service: 08/29/25 Interval History: Met the patient for the 1st time Patient has severe anxiety regarding her breathing difficulties Reassured her that she is on appropriate nebulizing treatment Patient not receptive of being discharged-quite resistant, poorly redirectable Review of Systems Review of Systems: Yes all other systems are reviewed and are negative Physical Exam Exam: Exam: General: A&O x3, Patient uncomfortable Cardiac: S1, S2 auscultated with no S3/4, no MRG. Well perfused. Respiratory: Audible inspiratory expiratory respiratory wheezing noted bilaterally, appear move subjective than objective, patient has CPAP machine at the bedside GI/ : No abdominal pain on palpation, no masses or distentions. Extremities: Bilateral lower extremity erythema to the mid israel, with tenderness to palpation and light touch; bilateral lower extremity edema 2 to 3+, it appears bed-bound at baseline Vital Signs: Vital Signs: Last Vital Signs Temp 98.9 F 08/28/25 03:08 Pulse 58 08/28/25 08:43 Resp 18 08/28/25 07:25 BP 152/59 H 08/28/25 08:43 Pulse Ox 92 08/28/25 08:43 O2 Del Method Nasal Cannula 08/28/25 08:43 O2 Flow Rate 4 08/28/25 08:43 BMI result Body Mass Index 35.5 Objective Data Active Medications Acetaminophen (Acetaminophen 325 Mg Tablet) 650 mg PO Q6H PRN PRN Reason: Pain, Mild 1-3,fever,headache Last Admin: 08/27/25 14:45 Dose: 650 mg Documented By: MELISSA Albuterol Sulfate (Albuterol Sulfate (0.083%) 2.5 Mg/3 Ml Vial.Neb) 2.5 mg INHALE Q4H PRN PRN Reason: shortness of breath or wheezing Last Admin: 08/25/25 22:17 Dose: 2.5 mg Documented By: VARSHA Albuterol Sulfate (Albuterol Sulfate 90 Mcg 8 Gm Inhaler) 2 puff INHALE Q6H PRN PRN Reason: Shortness Of Breath Or Wheezing Albuterol/Ipratropium (Albuterol/Iprat 2.5/0.5mg 3 Ml Ampul.Neb) 3 ml INHALE Q4H PRN PRN Reason: Shortness of Breath/Wheezing Last Admin: 08/28/25 07:25 Dose: 3 ml Documented By: RAHEL Amlodipine Besylate (Amlodipine Besylate 5 Mg Tablet) 5 mg PO DAILY [facility]; Protocol Last Admin: 08/28/25 08:34 Dose: 5 mg Documented By: TATIANNA Atorvastatin Calcium (Atorvastatin Calcium 40 Mg Tablet) 40 mg PO BEDTIME [facility] Last Admin: 08/27/25 20:22 Dose: 40 mg Documented By: TRE Betamethasone Dipropion Augmented (Betamethasone Dip Aug 0.05% Cr 15 Gm Tube) 1 appl TOPICAL BID [facility]; Protocol Last Admin: 08/28/25 08:34 Dose: 1 appl Documented By: TATIANNA Budesonide (Budesonide 0.5 Mg/2 Ml Ampul.Neb) 0.5 mg INHALE RBID [facility] Last Admin: 08/28/25 07:25 Dose: 0.5 mg Documented By: RAHEL Calcium Carbonate (Calcium Carbonate 750 Mg Tab.Chew) 750 mg PO Q4H PRN PRN Reason: Heartburn Dextrose (Dextrose 50 % 25 Gm/50 Ml Syringe) 25 gm IVPUSH Q15M PRN; Protocol PRN Reason: per Hypoglycemia Standing Ord. Last Admin: 08/24/25 04:50 Dose: 25 gm Documented By: JEAN-PIERRE Furosemide (Furosemide 20 Mg/2 Ml Vial) 40 mg IVPUSH BID@0900,1800 [facility]; Protocol On Hold: 08/26/25 09:51 Last Admin: 08/26/25 08:20 Dose: 40 mg Documented By: MELISSA Glucose (Glucose Gel 15 Gm Gel..Gram.) 15 gm PO Q15M PRN; Protocol PRN Reason: per Hypoglycemia Standing Ord. Heparin Sodium (Porcine) (Heparin Sodium,Porcine 5,000 Unit/Ml Vial) 5,000 unit SUBCUT Q12H [facility] Last Admin: 08/27/25 22:26 Dose: 5,000 unit Documented By: TRE Insulin Human Lispro (Insulin Lispro 100 Unit/Ml 3 Ml Vial) 0 unit SUBCUT QIDACHS [facility]; Protocol Last Admin: 08/28/25 08:32 Dose: Not Given Documented By: TATAINNA Non-Admin Reason: No Insulin Coverage Levothyroxine Sodium (Levothyroxine Sodium 200 Mcg Tablet) 200 mcg PO DAILY@0600 [facility] Last Admin: 08/28/25 06:22 Dose: 200 mcg Documented By: TRE Linezolid (Linezolid 600 Mg Tablet) 600 mg PO Q12H [facility] Last Admin: 08/28/25 03:04 Dose: 600 mg Documented By: TRE Lorazepam (Lorazepam 1 Mg Tablet) 1 mg PO Q6H PRN PRN Reason: Anxiety Last Admin: 08/28/25 08:43 Dose: 1 mg Documented By: TATIANNA Magnesium Hydroxide (Milk Of Magnesia 30 Ml Oral.Susp) 30 ml PO DAILY PRN PRN Reason: Constipation Melatonin (Melatonin 3 Mg Tablet) 6 mg PO BEDTIME PRN PRN Reason: Insomnia Last Admin: 08/27/25 01:36 EST Dose: 6 mg Documented By: PADDY Morphine Sulfate (Morphine Sulfate 4 Mg/Ml Cartridge) 0.5 mg IVPUSH Q6H PRN; Protocol PRN Reason: respiraory distress Last Admin: 08/26/25 09:03 Dose: 0.5 mg Documented By: MELISSA Nystatin (Nystatin Powder 15 Gm Bottle) 1 appl TOPICAL TID [facility]; Protocol Last Admin: 08/28/25 08:36 Dose: 1 appl Documented By: TATIANNA Ondansetron HCl (Ondansetron Hcl 4 Mg/2 Ml Vial) 4 mg IVPUSH Q8H PRN PRN Reason: Nausea and Vomiting Polyethylene Glycol (Polyethylene Glycol 3350 17 Gm Powd.Pack) 17 gm PO DAILY PRN PRN Reason: Constipation Senna (Sennosides 8.6 Mg Tablet) 17.2 mg PO BEDTIME [facility] Last Admin: 08/27/25 20:23 Dose: Not Given Documented By: TRE Non-Admin Reason: Patient Refused Sodium Chloride (0.9 % Sodium Chloride Flush 3 Ml Syringe) [facility] Last Admin: 08/28/25 08:36 Dose: 3 ml Documented By: TATIANNA Labs 08/25/25 08:34 08/29/25 06:01 Labs: Laboratory Results - last 24 hr 08/27/25 08/27/25 08/27/25 10:59 16:28 21:29 Anion Gap Estim Creat Clear Calc Estimated GFR POC Glucose 164 H 194 H 183 H Random Glucose Calcium 08/28/25 08/28/25 08/28/25 02:59 06:42 08:00 Anion Gap 18 Estim Creat Clear Calc 23.4 Estimated GFR 20 POC Glucose 116 H 104 Random Glucose 97 Calcium 7.9 L Assessment and Plan (1) COPD (chronic obstructive pulmonary disease): Status: Acute Plan 79-year-old female, with a history of type 2 DM, CKD stage 4, COPD chronic hypoxia/hypercarbia home O2 4 L, TEZ/OHS, hypothyroidism, chronic indwelling Francisco, HFpEF, represents with lower extremity erythema, admitted with bilateral lower extremity nonpurulent cellulitis, acute hypoxic respiratory failure 2/2 acute CHF exacerbation with superimposed exacerbation of chronic hypoxic/hypercarbic respiratory failure. Acute hypoxic respiratory failure Acute CHF exacerbation Acute exacerbation of chronic hypoxic/hypercarbic respiratory failure COPD on home O2 4 L Presents with acute respiratory distress in the setting of mild volume overload with bilateral pleural effusions and prerenal acute kidney injury. Lower extremity swelling noted. Patient is currently on furosemide, diuresing appropriately She is with the patient's chronic hypoxia and hypercarbic drive, and respiratory distress, we will continue low-dose morphine p.r.n. to assist with comfort. PLAN - 40 mg b.i.d. IV furosemide - daily weights - low-sodium diet - intake/output q.6 hourly - Fluid restriction 1.5 L - Monitor BMP Bilateral lower extremity nonpurulent cellulitis likely staph or strep-we will continue on linezolid with the help of ID guidance MARJORIE on CKD stage 4 Hyperkalemia Etiology likely 2/2 cardiorenal syndrome Measure I/Os QS Avoid nephrotoxic medications including NSAIDS Avoid hypotension Urine studies requested, UA with reflex ordered Chronic francisco in place Diuresing with furosemide 40 mg b.i.d. IV Monitor BMP and urinary output TEZ/OHS Non compliant with APAP. Settings BiPAP at night FIO2 28, IPAP 12, EPAP 6 Pannus intertrigo Nystatin powder IDDM SSI Lantus ordered Diabetic Diet HTN Avoid antihypertensives on admission, BP is stable but 117 systolic Avoid hypotension Low Na diet HLD Continue statin, LFTs stable Hypothyrpidism TSH with relex pending Continue levothyroxine once med rec completed, adjust if indicated MEMO H/H currently stable, 07/25.2 No indciation for transfusion QUALITY [employer]RICS - VTE: Heparin 5000 t.i.d. SQ - CODE STATUS: Full code patient not receptive of code status discussion - DIET: Cardiac, 1.5 L fluid restriction This note is constructed using voice recognition software. While every effort has been made to ensure accuracy, conductor/engineer errors may have been included. Total time managing care of this patient today: 35 minutes. Quality Stroke Does the patient have a stroke diagnosis?: No Reason for No Anti-thrombotic by Day Two: N/A - Med Ordered VTE Prior VTE?: No VTE Risk Level:: Medical - moderate - high VTE Device Contraindication: Treatment Not Tolerated VTE Drug Contraindication: N/A - Med Ordered
[2025-08-28 12:16] LABS: Glucose, Whole Blood 200 mg/dL (60-115)
--- NOTE | 2025-08-28 14:21 | MHC.CM.PN ---
Per rounds, pt. not ready to DC, she has declined to participate in PT eval despite several attempts. DCP: home with care tenders [facility].
[2025-08-28 16:38] LABS: Glucose, Whole Blood 196 mg/dL (60-115)
--- NOTE | 2025-08-28 19:38 | PC.NURSE ---
report called from Ly from [facility] this transfer.. Pt transferred without incident. VS as noted, Pt denies complaint at this time. Safety precautions in place. plan of care ongoing.
[2025-08-28 20:31] LABS: Glucose, Whole Blood 226 mg/dL (60-115)
[2025-08-29] VITALS (13 sets, daily range): BP systolic 127–153; BP diastolic 56–72; PULSE 54–71; RESP 17–22; TEMP 35.7–36.6; O2SAT 91–100
[2025-08-29] MEDS: Albuterol/Iprat 2.5/0.5MG 3 ML AMPUL.NEB INHALE ×4 (03:40→22:23)
[2025-08-29 06:27] LABS: Anion Gap 18 (12-20); Blood Urea Nitrogen 107 mg/dL (9-16); Calcium 7.7 mg/dL (8.4-10.2); Carbon Dioxide 24 mmol/L (22-29); Chloride 106 mmol/L (96-108); Creatinine Clr Calc Pharmacy 23.9; Estimated Glomerular Filt Rate 21; Potassium 5.2 mmol/L (3.3-5.1); Sodium 143 mmol/L (135-145)
[2025-08-29 08:45] LABS: Glucose, Whole Blood 124 mg/dL (60-115)
[2025-08-29] MEDS: 0.9 % Sodium Chloride Flush 3 ML SYRINGE IVFLUSH ×3 (09:09→22:19)
[2025-08-29] MEDS: Betamethasone Dip Aug 0.05% Cr 15 GM TUBE 1 APPL TOPICAL ×3 (09:12→22:17)
[2025-08-29 11:27] LABS: Glucose, Whole Blood 195 mg/dL (60-115)
[2025-08-29] MEDS: Furosemide 20 MG/2 ML VIAL 40 MG IVPUSH ×2 (12:28→17:28)
--- NOTE | 2025-08-29 12:42 | MHC.CM.PN ---
Patient is requesting STR @ [facility]. She has recently discharge from the facility. She will need a PT eval to qualify for STR. A PT eval has been requested. A referral has been sent to [facility]. Patient will transport via BLS.
--- NOTE | 2025-08-29 13:52 | P.PNNP_ITS ---
Subjective Subjective Date of Service: 08/29/25 Interval history: Events noted Physical Exam 2 Vital Signs: Vital Signs: Last Vital Signs Temp 97.8 F 08/29/25 10:53 Pulse 60 08/29/25 11:19 Resp 17 08/29/25 11:19 BP 130/72 08/29/25 10:53 Pulse Ox 99 08/29/25 10:53 O2 Del Method Nasal Cannula 08/29/25 10:53 O2 Flow Rate 3 08/29/25 10:53 BMI result Body Mass Index 35.5 Resp: Effort & Inspection: normal respiratory effort Extrem: Other: bilateral redness LE Objective Data Labs 08/25/25 08:34 08/29/25 06:01 Labs: Laboratory Results - last 24 hr 08/28/25 08/28/25 08/29/25 16:30 20:20 06:01 Sodium 143 Potassium 5.2 H Chloride 106 Carbon Dioxide 24 Anion Gap 18 BUN 107 H Creatinine 2.27 H Estim Creat Clear Calc 23.9 Estimated GFR 21 POC Glucose 196 H 226 H Random Glucose 133 H Calcium 7.7 L 08/29/25 08/29/25 08:43 11:20 Sodium Potassium Chloride Carbon Dioxide Anion Gap BUN Creatinine Estim Creat Clear Calc Estimated GFR POC Glucose 124 H 195 H Random Glucose Calcium Microbiology Microbiology Results: Microbiology 08/23/25 19:35 Blood - Venous Blood Culture - Final No growth after 5 days. 08/23/25 19:35 Blood - Venous Blood Culture - Final No growth after 5 days. Procedures Date of Service Date of Service: 08/29/25 Assessment & Plan Assessment and plan (1) Chronic kidney disease (CKD), stage 4: Status: Acute (2) Acute kidney injury: Status: Acute Plan MARJORIE superimposed on CKD. MARJORIE most likely due to hypoperfusion. Underlying CKD with a baseline creatinine of 1.4-1.8 mg/dL. Marginal improvement in creatinine since admission. No indication for dialysis. No obstruction based on renal ultrasonogram Concur with current medical management Creatinine stays around 2.2 Mild hyperkalemia at time admission. Keep her on low-potassium diet Lokelma p.r.n. if potassium more than 5.2. Time Spent With Patient Time: Total time managing care of this patient today ____ minutes. Progress Note: Quality Stroke Does the patient have a stroke diagnosis?: No Reason for No Anti-thrombotic by Day Two: N/A - Med Ordered
--- NOTE | 2025-08-29 14:56 | HO.PM.IMPN ---
Subjective Subjective Date of Service: 08/29/25 Interval History: Met the patient for the 1st time Patient has severe anxiety regarding her breathing difficulties Reassured her that she is on appropriate nebulizing treatment Patient not receptive of being discharged-quite resistant, poorly redirectable Review of Systems Review of Systems: Yes all other systems are reviewed and are negative Physical Exam Exam: Exam: General: A&O x3, Patient uncomfortable Cardiac: S1, S2 auscultated with no S3/4, no MRG. Well perfused. Respiratory: Audible inspiratory expiratory respiratory wheezing noted bilaterally, appear move subjective than objective, patient has CPAP machine at the bedside GI/ : No abdominal pain on palpation, no masses or distentions. Extremities: Bilateral lower extremity erythema to the mid israel, with tenderness to palpation and light touch; bilateral lower extremity edema 2 to 3+, it appears bed-bound at baseline Vital Signs: Vital Signs: Last Vital Signs Temp 97.8 F 08/29/25 10:53 Pulse 60 08/29/25 11:19 Resp 17 08/29/25 11:19 BP 130/72 08/29/25 10:53 Pulse Ox 99 08/29/25 10:53 O2 Del Method Nasal Cannula 08/29/25 10:53 O2 Flow Rate 3 08/29/25 10:53 BMI result Body Mass Index 35.5 Objective Data Active Medications Acetaminophen (Acetaminophen 325 Mg Tablet) 650 mg PO Q6H PRN PRN Reason: Pain, Mild 1-3,fever,headache Last Admin: 08/29/25 11:47 Dose: 650 mg Documented By: JIE Albuterol Sulfate (Albuterol Sulfate (0.083%) 2.5 Mg/3 Ml Vial.Neb) 2.5 mg INHALE Q4H PRN PRN Reason: shortness of breath or wheezing Last Admin: 08/25/25 22:17 Dose: 2.5 mg Documented By: VARSHA Albuterol Sulfate (Albuterol Sulfate 90 Mcg 8 Gm Inhaler) 2 puff INHALE Q6H PRN PRN Reason: Shortness Of Breath Or Wheezing Albuterol/Ipratropium (Albuterol/Iprat 2.5/0.5mg 3 Ml Ampul.Neb) 3 ml INHALE Q4H PRN PRN Reason: Shortness of Breath/Wheezing Last Admin: 08/29/25 11:19 Dose: 3 ml Documented By: RADHA Amlodipine Besylate (Amlodipine Besylate 5 Mg Tablet) 5 mg PO DAILY [facility]; Protocol Last Admin: 08/29/25 09:09 Dose: 5 mg Documented By: JIE Atorvastatin Calcium (Atorvastatin Calcium 40 Mg Tablet) 40 mg PO BEDTIME [facility] Last Admin: 08/28/25 20:02 Dose: 40 mg Documented By: FLETCHER Betamethasone Dipropion Augmented (Betamethasone Dip Aug 0.05% Cr 15 Gm Tube) 1 appl TOPICAL BID [facility]; Protocol Last Admin: 08/29/25 09:12 Dose: 1 appl Documented By: JIE Budesonide (Budesonide 0.5 Mg/2 Ml Ampul.Neb) 0.5 mg INHALE RBID [facility] Last Admin: 08/29/25 08:02 Dose: 0.5 mg Documented By: RADHA Calcium Carbonate (Calcium Carbonate 750 Mg Tab.Chew) 750 mg PO Q4H PRN PRN Reason: Heartburn Dextrose (Dextrose 50 % 25 Gm/50 Ml Syringe) 25 gm IVPUSH Q15M PRN; Protocol PRN Reason: per Hypoglycemia Standing Ord. Last Admin: 08/24/25 04:50 Dose: 25 gm Documented By: JEAN-PIERRE Furosemide (Furosemide 20 Mg/2 Ml Vial) 40 mg IVPUSH BID@0900,1800 [facility]; Protocol Last Admin: 08/29/25 12:28 Dose: 40 mg Documented By: JIE Glucose (Glucose Gel 15 Gm Gel..Gram.) 15 gm PO Q15M PRN; Protocol PRN Reason: per Hypoglycemia Standing Ord. Heparin Sodium (Porcine) (Heparin Sodium,Porcine 5,000 Unit/Ml Vial) 5,000 unit SUBCUT Q12H [facility] Last Admin: 08/29/25 11:15 Dose: 5,000 unit Documented By: JIE Insulin Human Lispro (Insulin Lispro 100 Unit/Ml 3 Ml Vial) 0 unit SUBCUT QIDACHS [facility]; Protocol Last Admin: 08/29/25 11:36 Dose: 2 unit Documented By: JIE Levothyroxine Sodium (Levothyroxine Sodium 200 Mcg Tablet) 200 mcg PO DAILY@0600 [facility] Last Admin: 08/29/25 04:57 Dose: 200 mcg Documented By: FLETCHER Linezolid (Linezolid 600 Mg Tablet) 600 mg PO Q12H [facility] Last Admin: 08/29/25 01:43 Dose: 600 mg Documented By: FLETCHER Lorazepam (Lorazepam 1 Mg Tablet) 1 mg PO Q6H PRN PRN Reason: Anxiety Last Admin: 08/29/25 11:13 Dose: 1 mg Documented By: JIE Magnesium Hydroxide (Milk Of Magnesia 30 Ml Oral.Susp) 30 ml PO DAILY PRN PRN Reason: Constipation Melatonin (Melatonin 3 Mg Tablet) 6 mg PO BEDTIME PRN PRN Reason: Insomnia Last Admin: 08/28/25 21:08 Dose: 6 mg Documented By: FLETCHER Morphine Sulfate (Morphine Sulfate 4 Mg/Ml Cartridge) 0.5 mg IVPUSH Q6H PRN; Protocol PRN Reason: respiraory distress Last Admin: 08/29/25 12:48 Dose: 0.5 mg Documented By: JIE Nystatin (Nystatin Powder 15 Gm Bottle) 1 appl TOPICAL TID [facility]; Protocol Last Admin: 08/29/25 09:13 Dose: 1 appl Documented By: JIE Ondansetron HCl (Ondansetron Hcl 4 Mg/2 Ml Vial) 4 mg IVPUSH Q8H PRN PRN Reason: Nausea and Vomiting Polyethylene Glycol (Polyethylene Glycol 3350 17 Gm Powd.Pack) 17 gm PO DAILY PRN PRN Reason: Constipation Senna (Sennosides 8.6 Mg Tablet) 17.2 mg PO BEDTIME [facility] Last Admin: 08/28/25 20:02 Dose: 17.2 mg Documented By: FLETCHER Sodium Chloride (0.9 % Sodium Chloride Flush 3 Ml Syringe) 3 ml IVFLUSH QSHIFT [facility] Last Admin: 08/29/25 09:09 Dose: 3 ml Documented By: JIE Labs 08/25/25 08:34 08/29/25 06:01 Labs: Laboratory Results - last 24 hr 08/28/25 08/28/25 08/29/25 16:30 20:20 06:01 Anion Gap 18 Estim Creat Clear Calc 23.9 Estimated GFR 21 POC Glucose 196 H 226 H Random Glucose 133 H Calcium 7.7 L 08/29/25 08/29/25 08:43 11:20 Anion Gap Estim Creat Clear Calc Estimated GFR POC Glucose 124 H 195 H Random Glucose Calcium Microbiology Microbiology Results: Microbiology 08/23/25 19:35 Blood Culture - Final Blood - Venous No growth after 5 days. 08/23/25 19:35 Blood Culture - Final Blood - Venous No growth after 5 days. Assessment and Plan (1) COPD (chronic obstructive pulmonary disease): Status: Acute Plan 79-year-old female, with a history of type 2 DM, CKD stage 4, COPD chronic hypoxia/hypercarbia home O2 4 L, TEZ/OHS, hypothyroidism, chronic indwelling Francisco, HFpEF, represents with lower extremity erythema, admitted with bilateral lower extremity nonpurulent cellulitis, acute hypoxic respiratory failure 2/2 acute CHF exacerbation with superimposed exacerbation of chronic hypoxic/hypercarbic respiratory failure. Acute hypoxic respiratory failure Acute CHF exacerbation Acute exacerbation of chronic hypoxic/hypercarbic respiratory failure COPD on home O2 4 L Presents with acute respiratory distress in the setting of mild volume overload with bilateral pleural effusions and prerenal acute kidney injury. Lower extremity swelling noted. Patient is currently on furosemide, diuresing appropriately She is with the patient's chronic hypoxia and hypercarbic drive, and respiratory distress, we will continue low-dose morphine p.r.n. to assist with comfort. PLAN - 40 mg b.i.d. IV furosemide - daily weights - low-sodium diet - intake/output q.6 hourly - Fluid restriction 1.5 L - Monitor BMP Bilateral lower extremity nonpurulent cellulitis likely staph or strep-we will continue on linezolid with the help of ID guidance MARJORIE on CKD stage 4 Hyperkalemia Etiology likely 2/2 cardiorenal syndrome Measure I/Os QS Avoid nephrotoxic medications including NSAIDS Avoid hypotension Urine studies requested, UA with reflex ordered Chronic francisco in place Diuresing with furosemide 40 mg b.i.d. IV Monitor BMP and urinary output TEZ/OHS Non compliant with APAP. Settings BiPAP at night FIO2 28, IPAP 12, EPAP 6 Pannus intertrigo Nystatin powder IDDM SSI Lantus ordered Diabetic Diet HTN Avoid antihypertensives on admission, BP is stable but 117 systolic Avoid hypotension Low Na diet HLD Continue statin, LFTs stable Hypothyrpidism TSH with relex pending Continue levothyroxine once med rec completed, adjust if indicated MEMO H/H currently stable, 07/25.2 No indciation for transfusion [employer] [employer] - VTE: Heparin 5000 t.i.d. SQ - CODE STATUS: Full code patient not receptive of code status discussion - DIET: Cardiac, 1.5 L fluid restriction This note is constructed using voice recognition software. While every effort has been made to ensure accuracy, resident engineer errors may have been included. We will likely need hospitalization for 1-2 days as we need to find a rehab placement, likely pulmonary rehab like the 1 she recently was discharged a month and a half ago. Total time managing care of this patient today: 35 minutes. Quality Stroke Does the patient have a stroke diagnosis?: No Reason for No Anti-thrombotic by Day Two: N/A - Med Ordered VTE Prior VTE?: No VTE Risk Level:: Medical - moderate - high VTE Device Contraindication: Treatment Not Tolerated VTE Drug Contraindication: N/A - Med Ordered
[2025-08-29 16:26] LABS: Glucose, Whole Blood 153 mg/dL (60-115)
[2025-08-29 20:40] LABS: Glucose, Whole Blood 218 mg/dL (60-115)
[2025-08-29] MEDS: diazePAM 10 MG/2 ML CARTRIDGE 5 MG IVPUSH (23:17)
[2025-08-30] VITALS (13 sets, daily range): BP systolic 119–159; BP diastolic 62–66; PULSE 58–75; RESP 16–22; TEMP 36–37.1; O2SAT 90–97
[2025-08-30] MEDS: Albuterol/Iprat 2.5/0.5MG 3 ML AMPUL.NEB INHALE ×3 (01:48→15:17)
[2025-08-30] MEDS: Albuterol Sulfate (0.083%) 2.5 MG/3 ML VIAL.NEB INHALE (06:04)
--- NOTE | 2025-08-30 06:17 | PM.EVENT ---
Event Note Date of Service: 08/30/25 Event Note: pt with persistent SOB through the night, mild response to breathing treatments and ativan. was able to sleep better with bipap. no wheezing on exam but appears to be hyperventilating, appears anxious. will check BNP, VBG and chest xray. Time Spent With Patient Time: Total time managing care of this patient today ____ minutes.
[2025-08-30 06:48] LABS: Anion Gap 20 (12-20); Blood Urea Nitrogen 101 mg/dL (9-16); Calcium 7.8 mg/dL (8.4-10.2); Carbon Dioxide 23 mmol/L (22-29); Chloride 106 mmol/L (96-108); Creatinine Clr Calc Pharmacy 25.2; Estimated Glomerular Filt Rate 22; Potassium 5.1 mmol/L (3.3-5.1); Sodium 144 mmol/L (135-145)
--- NOTE | 2025-08-30 07:18 | HO.PM.IMPN ---
Subjective Subjective Date of Service: 08/30/25 Physical Exam Vital Signs: Vital Signs: Last Vital Signs Temp 97.1 F 08/30/25 04:00 Pulse 69 08/30/25 06:07 Resp 22 H 08/30/25 06:07 BP 140/66 H 08/30/25 04:00 Pulse Ox 97 08/30/25 04:00 O2 Del Method Nasal Cannula 08/30/25 04:00 O2 Flow Rate 4 08/30/25 04:00 BMI result Body Mass Index 35.5 Objective Data Active Medications Acetaminophen (Acetaminophen 325 Mg Tablet) 650 mg PO Q6H PRN PRN Reason: Pain, Mild 1-3,fever,headache Last Admin: 08/30/25 02:45 Dose: 650 mg Documented By: SARAHY Albuterol Sulfate (Albuterol Sulfate (0.083%) 2.5 Mg/3 Ml Vial.Neb) 2.5 mg INHALE Q4H PRN PRN Reason: shortness of breath or wheezing Last Admin: 08/30/25 06:04 Dose: 2.5 mg Documented By: ROD Albuterol Sulfate (Albuterol Sulfate 90 Mcg 8 Gm Inhaler) 2 puff INHALE Q6H PRN PRN Reason: Shortness Of Breath Or Wheezing Albuterol/Ipratropium (Albuterol/Iprat 2.5/0.5mg 3 Ml Ampul.Neb) 3 ml INHALE Q4H PRN PRN Reason: Shortness of Breath/Wheezing Last Admin: 08/30/25 01:48 Dose: 3 ml Documented By: ROD Amlodipine Besylate (Amlodipine Besylate 5 Mg Tablet) 5 mg PO DAILY GEO; Protocol Last Admin: 08/29/25 09:09 Dose: 5 mg Documented By: JIE Atorvastatin Calcium (Atorvastatin Calcium 40 Mg Tablet) 40 mg PO BEDTIME GEO Last Admin: 08/29/25 21:00 Dose: 40 mg Documented By: SARAHY Betamethasone Dipropion Augmented (Betamethasone Dip Aug 0.05% Cr 15 Gm Tube) 1 appl TOPICAL BID GEO; Protocol Last Admin: 08/29/25 22:17 Dose: 1 appl Documented By: SARAHY Budesonide (Budesonide 0.5 Mg/2 Ml Ampul.Neb) 0.5 mg INHALE RBID [facility] Last Admin: 08/29/25 20:13 Dose: 0.5 mg Documented By: ROD Calcium Carbonate (Calcium Carbonate 750 Mg Tab.Chew) 750 mg PO Q4H PRN PRN Reason: Heartburn Dextrose (Dextrose 50 % 25 Gm/50 Ml Syringe) 25 gm IVPUSH Q15M PRN; Protocol PRN Reason: per Hypoglycemia Standing Ord. Last Admin: 08/24/25 04:50 Dose: 25 gm Documented By: JEAN-PIERRE Furosemide (Furosemide 20 Mg/2 Ml Vial) 40 mg IVPUSH BID@0900,1800 [facility]; Protocol Last Admin: 08/29/25 17:28 Dose: 40 mg Documented By: JIE Glucose (Glucose Gel 15 Gm Gel..Gram.) 15 gm PO Q15M PRN; Protocol PRN Reason: per Hypoglycemia Standing Ord. Heparin Sodium (Porcine) (Heparin Sodium,Porcine 5,000 Unit/Ml Vial) 5,000 unit SUBCUT Q12H [facility] Last Admin: 08/29/25 22:07 Dose: 5,000 unit Documented By: SARAHY Insulin Human Lispro (Insulin Lispro 100 Unit/Ml 3 Ml Vial) 0 unit SUBCUT QIDACHS [facility]; Protocol Last Admin: 08/29/25 22:07 Dose: 4 unit Documented By: SARAHY Levothyroxine Sodium (Levothyroxine Sodium 200 Mcg Tablet) 200 mcg PO DAILY@0600 [facility] Last Admin: 08/30/25 06:23 Dose: 200 mcg Documented By: SARAHY Linezolid (Linezolid 600 Mg Tablet) 600 mg PO Q12H [facility] Last Admin: 08/30/25 02:43 Dose: 600 mg Documented By: SARAHY Lorazepam (Lorazepam 1 Mg Tablet) 1 mg PO Q6H PRN PRN Reason: Anxiety Last Admin: 08/30/25 02:51 Dose: 1 mg Documented By: SARAHY Magnesium Hydroxide (Milk Of Magnesia 30 Ml Oral.Susp) 30 ml PO DAILY PRN PRN Reason: Constipation Melatonin (Melatonin 3 Mg Tablet) 6 mg PO BEDTIME PRN PRN Reason: Insomnia Last Admin: 08/28/25 21:08 Dose: 6 mg Documented By: FLETCHER Morphine Sulfate (Morphine Sulfate 4 Mg/Ml Cartridge) 0.5 mg IVPUSH Q6H PRN; Protocol PRN Reason: respiraory distress Last Admin: 08/30/25 06:23 Dose: 0.5 mg Documented By: SARAHY Comments: Dr. Norton made aware of administration Nystatin (Nystatin Powder 15 Gm Bottle) 1 appl TOPICAL TID GEO; Protocol Last Admin: 08/29/25 22:17 Dose: 1 appl Documented By: SARAHY Ondansetron HCl (Ondansetron Hcl 4 Mg/2 Ml Vial) 4 mg IVPUSH Q8H PRN PRN Reason: Nausea and Vomiting Polyethylene Glycol (Polyethylene Glycol 3350 17 Gm Powd.Pack) 17 gm PO DAILY PRN PRN Reason: Constipation Senna (Sennosides 8.6 Mg Tablet) 17.2 mg PO BEDTIME [facility] Last Admin: 08/29/25 22:17 Dose: Not Given Documented By: SARAHY Non-Admin Reason: Patient Refused Sodium Chloride (0.9 % Sodium Chloride Flush 3 Ml Syringe) 3 ml IVFLUSH QSHIFT [facility] Last Admin: 08/29/25 22:19 Dose: 3 ml Documented By: SARAHY Labs 08/25/25 08:34 08/30/25 06:02 Labs: Laboratory Results - last 24 hr 08/29/25 08/29/25 08/29/25 08:43 11:20 16:17 Anion Gap Estim Creat Clear Calc Estimated GFR POC Glucose 124 H 195 H 153 H Random Glucose Calcium 08/29/25 08/30/25 20:27 06:02 Anion Gap 20 Estim Creat Clear Calc 25.2 Estimated GFR 22 POC Glucose 218 H Random Glucose 180 H Calcium 7.8 L Quality Stroke Does the patient have a stroke diagnosis?: No Reason for No Anti-thrombotic by Day Two: N/A - Med Ordered VTE Prior VTE?: No VTE Risk Level:: Medical - moderate - high VTE Device Contraindication: Treatment Not Tolerated VTE Drug Contraindication: N/A - Med Ordered
[2025-08-30 07:38] LABS: VBG HCO3 27 mmol/L (22-26)
[2025-08-30 07:39] LABS: Venous Blood Gas Refer to POC result
[2025-08-30 07:41] LABS: Glucose, Whole Blood 160 mg/dL (60-115)
[2025-08-30] MEDS: Furosemide 20 MG/2 ML VIAL 40 MG IVPUSH (09:18)
[2025-08-30] MEDS: 0.9 % Sodium Chloride Flush 3 ML SYRINGE IVFLUSH (09:24)
--- NOTE | 2025-08-30 10:58 | MHC.CM.PN ---
Per MD patient medically cleared for dc. Patient accepts bed at [facility]. BLS transport booked for 3pm. RN and patient aware. IMM delivered.
--- NOTE | 2025-08-30 11:00 | PC.NURSE ---
Care offered often throughout shift, patient refusing multiple times. Patient continuously complaining of SOB and yelling I can't breathe . Patient talking in complete sentences and SpO2 WNL. Patient very anxious and demanding requiring frequent reassurance and is constantly using call hull requiring high volume of nursing care and reassurance.
[2025-08-30 11:17] LABS: Glucose, Whole Blood 194 mg/dL (60-115)
--- NOTE | 2025-08-30 14:03 | ECG_ITS ---
Test Reason : CP Blood Pressure : */* mmHG Vent. Rate : 60 BPM Atrial Rate : * BPM P-R Int : * ms QRS Dur : 112 ms QT Int : 456 ms P-R-T Axes : * -37 59 degrees QTcB Int : 456 ms Normal sinus rhythm Left axis deviation Minimal voltage criteria for LVH, may be normal variant ( Monroe product ) Abnormal ECG When compared with ECG of 23-Aug-2025 18:26, No significant changes seen Referred By: Joellen Michelle Electronically Signed By: Jeremías Day
--- NOTE | 2025-08-30 14:39 | PC.NURSE ---
Patient yelling out I can't breathe , patient called Son and son called nurses station. Provider Viviana notified of patient's continuously complaint of SOB and difficulty breathing. IV Morphine administered, reassurance and education provided,spO2 93% on 3L. With a lot of education and encouragement, patient allowed 2 assist turn and reposition with dorcas care provided, patient tolerated turning, able to talk in complete sentences while care provided. After care provided patient then complained of chest pressure as if someone is sitting on my chest and jaw throbbing . Provider Viviana notified via tigerconnect and EKG and Trop ordered.
[2025-08-30 14:41] LABS: Troponin-I High Sensitivity 20.7 ng/L (<3.5-17.0)
--- NOTE | 2025-08-30 14:56 | PC.NURSE ---
Provider Viviana reviewed EKG and Labs and okay to continue with discharge. Per Provider Viviana, nursing could administer PRN Ativan early for anticipated discharge of 15:00.
--- NOTE | 2025-08-30 15:03 | PM.DS ---
DS: Providers Provider Date of Service: 08/30/25 Date of admission: 08/23/25 21:09 Date of discharge: 08/30/25 Primary care physician: Neida Soto MD Consults: 08/23/25 21:20 Consult to Nephrology Routine Consulting Provider: [facility] Reason for consultation: MARJORIE on CKD Has provider been notified: No 08/23/25 21:21 Consult to Infectious Diseases Routine Consulting Provider: [facility] Reason for consultation: BLE cellulitis 08/23/25 22:25 Consult to Wound Care Routine Consulting Provider: [facility] [facility] Reason for consultation: BLE open areas with cellulitis 08/23/25 23:08 Consult to Case Management Routine Comment: pt may require more care services at home DS: Diagnosis Discharge Diagnosis (1) COPD (chronic obstructive pulmonary disease): Status: Acute DS: Summary Hospital Course Hospital Course: Per HPI:Pt is a 79-year-old female with a history of IDDM II, anxiety, TEZ, obesity, CKD 4, hypertension, hyperlipidemia, NSTEMI, HFpEF, COPD-O2 dependent, lymphedema, hypothyroidism, hypokalemia chronic indwelling Francisco was BIBA for BLE redness with infection since leaving SNF for STR about 1.5 weeks ago. Pt states she was doing well until a few days ago when she noted redness in legs and now swelling and pain. Her VNA nurse advised pt to be taken to the ED for further evaluation. Pt's most concerning complaint is SOB after lying supine for US of legs and kidneys. Pt currently being evaluated by RT for BIPAP and lasix 60 mgs IV provided on top of the 80 mgs pt received in the ED earlier. Pt notes she uses 4L of O2 at home normally. Pt denies productive cough, chest pain, SANTILLAN but reports increasing anxiety since arrival. Per records from previous admission, pt was discharged home with [facility] Non-Invasive Ventilater on 07/20. BiPAP at night FIO2 28, IPAP 12, EPAP 6 per last discharge order. Pt reports the device did not fit right and has not been using at home. Work up in ED includes CXR noting CM, pulmonary edema and emphysema. LA 0.9, WBC 11.9, H/H 9/30.2, PLTs 262K. VBG was 7.42, 29, 140 and 19. K 5.4. Na 140. CO2 18. Cr CL 22.9, GFR 19. BG162. Troponin 21.6, next level pending. ABG pending. NT-BNP 4595. CHronic francisco is in place and pt has diuresed 1000 mls so far since receiving first dose of Lasix. ECG appears to be a sinus arrhythmia, HR 58 - 66 BPM. Plan is to admit pt to tele for BLE cellulits, rule out DVT, CHF exacerbation, COPD exacerbation, MARJORIE on CKD 4. Pt did clarify that she is a full code and would want to be intubated or receive nonmechanical ventilation if needed. Pt also states she would want dilaysis if needed acutely. Hospital course: AE COPD , chronic hypoxic hypercarbic respiratory failure 2/2 staph/strep cellulitis of lower extremities + AE HFpEF COPD on home O2 4 L TEZ/OHS Non compliant with APAP. Poor insight. Settings BiPAP at night FIO2 28, IPAP 12, EPAP 6 79-year-old female, with a history of type 2 DM, CKD stage 4, COPD chronic hypoxia/hypercarbia home O2 4 L, TEZ/OHS, hypothyroidism, chronic indwelling Francisco, HFpEF, represents with lower extremity erythema, admitted with bilateral lower extremity nonpurulent cellulitis, acute hypoxic respiratory failure 2/2 acute CHF exacerbation with superimposed exacerbation of chronic hypoxic/hypercarbic respiratory failure likely secondary to strep cellulitis complicated by severe anxiety with hyperventilation. She was treated with IV antibiotics and based on ID recommendations, she was switched to linezolid to cover for any staph strep cellulitis. Wound care was consulted and she was being treated with b.i.d. budesonide with good effect. Hospital throughout the hospitalization, patient continued to have multiple episodes of ?I can not breathe, I have heavy chest pain? and cardiac and pulmonary workup and labs suggestive of adequate ventilation. Hence even though she has been hemodynamically stable, at her baseline 4 L O2 requirement and p.r.n. CPAP requirement, she continued to have multiple episodes. Hence we introduced morphine p.r.n. for which she responded appropriately. Multiple goals of care discussion were held with the patient, however she is not receptive. Please use morphine and Ativan judiciously (morphine is new during this hospitalization with good effect) for her anxiety-would benefit from goals of care discussion with the family's involvement. Please check her labs and O2 prior to transferring back to the hospital because the patient has had multiple episodes without any physiological etiology. Bilateral lower extremity nonpurulent cellulitis likely staph or strep-we will continue on linezolid with the help of ID guidance-to complete 10 day course MARJORIE on CKD stage 4 Hyperkalemia Etiology likely 2/2 cardiorenal syndrome, nephrology consulted. Patient has chronic Francisco in place, we have used Lasix 40 p.o. b.i.d. with good effect Pannus intertrigoNystatin powder IDDMWas managed with insulin and diabetic diet while inpatient. No changes in meds at the time of admission HTN continue home meds HLDContinue statin, LFTs stable Hypothyroidism continued home meds MEMO chronic stable This note is constructed using voice recognition software. While every effort has been made to ensure accuracy, certified forklift operator errors may have been included. Total time managing care of this patient today: 106 minutes. Time spent discussing smoking cessation with patient: more than 10 minutes Status at Discharge Functional status at discharge: bed bound Overall status at discharge: patient is not back to baseline Time Attestation Discharge Coordination Time (in mins): 106 Quality: Safe Use of Opioids Does Pt have an Active Cancer Diagnosis on the Problem List?: No Quality: Stroke Does the patient have a stroke diagnosis?: No Physical Exam Exam: Exam: General: A&O x3, Patient uncomfortable, intermittent agitation, severe anxiety, hyperventilating at baseline, care difficult with behavioral and anxiety with requirement of multiple redirection Cardiac: S1, S2 auscultated with no S3/4, no MRG. Well perfused. Respiratory: Audible inspiratory expiratory respiratory wheezing noted bilaterally, appear move subjective than objective, patient has CPAP machine at the bedside GI/ : No abdominal pain on palpation, no masses or distentions. Extremities: Bilateral lower extremity erythema to the mid [place], with tenderness to palpation and light touch; bilateral lower extremity edema 2 to 3+, it appears bed-bound at baseline Vital Signs: Vital Signs: Last Vital Signs Temp 98.7 F 08/30/25 11:06 Pulse 62 08/30/25 13:53 Resp 20 08/30/25 13:53 BP 142/63 H 08/30/25 13:53 Pulse Ox 92 08/30/25 13:53 O2 Del Method Nasal Cannula 08/30/25 13:53 O2 Flow Rate 3 08/30/25 13:53 BMI result Body Mass Index 35.5 DS: Data Data Completed and Pending Completed studies during hospitalization [Text1]: Procedures Assistance with Respiratory Ventilation, Less than 24 Consecutive Hours, Continuous Positive Airway Pressure (07/19/25) Drainage of Left Pleural Cavity, Percutaneous Approach (04/25/25) Insertion of Endotracheal Airway into Trachea, Via Natural or Artificial Opening (04/25/25) Insertion of Infusion Device into Superior Vena Cava, Percutaneous Approach (11/10/21) Performance of Urinary Filtration, Intermittent, Less than 6 Hours Per Day (11/10/21) Respiratory Ventilation, 24-96 Consecutive Hours (04/25/25) Transfusion of Nonautologous Red Blood Cells into Peripheral Vein, Percutaneous Approach (04/03/25) Labs on day of discharge: Laboratory Results - last 24 hr 08/29/25 08/29/25 08/30/25 16:17 20:27 06:02 VBG pH VBG pCO2 VBG pO2 VBG HCO3 VBG O2 Saturation VBG Base Excess Sodium 144 Potassium 5.1 Chloride 106 Carbon Dioxide 23 Anion Gap 20 BUN 101 H Creatinine 2.15 H Estim Creat Clear Calc 25.2 Estimated GFR 22 POC Glucose 153 H 218 H Random Glucose 180 H Calcium 7.8 L Troponin I High Sens NT-Pro-B Natriuret Pep 08/30/25 08/30/25 08/30/25 07:11 07:19 07:34 VBG pH 7.29 L VBG pCO2 56 VBG pO2 99 VBG HCO3 27 H VBG O2 Saturation TNP VBG Base Excess 0.5 Sodium Potassium Chloride Carbon Dioxide Anion Gap BUN Creatinine Estim Creat Clear Calc Estimated GFR POC Glucose 160 H Random Glucose Calcium Troponin I High Sens NT-Pro-B Natriuret Pep 9197.5 H 08/30/25 08/30/25 11:04 14:15 VBG pH VBG pCO2 VBG pO2 VBG HCO3 VBG O2 Saturation VBG Base Excess Sodium Potassium Chloride Carbon Dioxide Anion Gap BUN Creatinine Estim Creat Clear Calc Estimated GFR POC Glucose 194 H Random Glucose Calcium Troponin I High Sens 20.7 H NT-Pro-B Natriuret Pep Discharge Plan Discharge Anticipated Discharge Date/Time: 08/30/25 14:47 Patient Disposition: Xfer SNF Discharge Diagnosis: AE COPD likely in the setting of strep cellulitis of bilateral lower extremities + severe baseline anxiety Referrals: [facility] [Other] - 1 Week Referral Note: short term rehab Neida Mirza MD [Primary Care Provider, Internal Medicine] - 1 Week Discharge Medications: New linezolid 600 mg Tablet 600 mg PO Q12H 10 Days Qty: 20 0RF budesonide [Pulmicort] 0.5 mg/2 mL Suspension For Nebulization 0.5 mg inhalation RBID Qty: 60 0RF betamethasone, augmented 0.05 % Cream 1 appl topical BID Qty: 50 0RF Protocol: Apply to: Apply to: legs red areas with intact skin bid nystatin [Nyamyc] 100,000 unit/gram Powder 1 appl topical TID Qty: 15 0RF Protocol: Apply to: Apply to: groin and perineal areas morphine 10 mg capsule,extend.release pellets 10 mg PO Q24H 5 Days Qty: 5 0RF Rx Instructions: Partial Fill upon patient request. Continued (DME) Lift chair See Rx Instructions .Route .MEDSUPPLY Qty: 1 0RF Rx Instructions: As directed (DME) compression stockings 40 mmHg knee high See Rx Instructions .Route .MEDSUPPLY Qty: 1 0RF Rx Instructions: As directed albuterol sulfate [Ventolin HFA] 90 mcg/actuation HFA aerosol inhaler 2 puff inhalation Q6H PRN (Reason: Shortness Of Breath Or Wheezing) 30 Days Qty: 6.7 1RF (DME) hospital bed See Rx Instructions .Route .MEDSUPPLY Qty: 1 0RF Rx Instructions: [place] Accu-Chek Odilia Plus test strp Strip See Rx Instructions .Route Qty: 100 1RF Rx Instructions: use it TID [place] Accu-Chek Guide test strips Strip See Rx Instructions .Route Qty: 100 3RF Rx Instructions: check sugar three times a day furosemide 40 mg Tablet 40 mg PO BID@0900,1800 Qty: 1 0RF Protocol: Hold for SBP< HOLD for SBP < : 90 acetaminophen 325 mg Tablet 650 mg PO Q6H PRN (Reason: Fever Or Pain) lorazepam [Ativan] 0.5 mg tablet 1 mg PO Q6H PRN (Reason: Anxiety) Qty: 15 0RF Jardiance 10 mg tablet 10 mg PO DAILY albuterol sulfate 2.5 mg /3 mL (0.083 %) solution for nebulization 2.5 mg inhalation Q4H PRN (Reason: shortness of breath or wheezing) insulin degludec 100 unit/mL (3 mL) insulin pen 25 unit subcut BEDTIME atorvastatin 40 mg tablet 40 mg PO BEDTIME 90 Days Qty: 90 3RF (DME) insulin syringe-needle U-100 0.5 mL 31 gauge x 5/16 syringe See Rx Instructions .Route Qty: 100 3RF Rx Instructions: Use 1 needle once a day (DME) lancets [Accu-Chek Softclix Lancets] Misc See Rx Instructions .Route Qty: 100 3RF Rx Instructions: Use 1 lancet once a day levothyroxine 200 mcg tablet 200 mcg PO DAILY@0600 90 Days Qty: 90 0RF (DME) pen needle, diabetic [1st Tier Unifine Pentips] 31 gauge x 5/16 needle See Rx Instructions .Route Qty: 100 4RF Rx Instructions: Use 1 pen needle once a day amlodipine 5 mg tablet 5 mg PO DAILY Qty: 90 2RF Discharge Orders: Discharge Order (Routine); Ordered 08/30/25 Ordered By: Joellen Michelle Diet: Low salt diet Activity on Discharge: As tolerated Stand Alone Forms: Patient Portal Discharge page Print Language: Portuguese Care Plan Goals: Patient needs to follow up with PCP within a week after discharge, patient needs to follow up pulmonology Patient's anxiety is unfortunately not control and she seems to be doing better with morphine and Ativan suggestive of severe anxiety rather than of physiological cause Less likely to be cardiogenic Patient not receptive of goals of care discussion which essentially needs to be had we have tried our very best to address during this hospitalization Patient is high-risk of readmission Patient needs to complete linezolid treatment for strep staph cellulitis Follow up with wound care outpatient-apply the antibiotic cream betamethasone b.i.d. for 2-4 weeks Continue nystatin antifungal treatment for candidal intertrigo Health Concerns: See above Plan of Treatment: See above Assessment: See above Patient Instructions: Anxiety (ED)
--- NOTE | 2025-08-30 16:41 | PC.NURSE ---
Patient calm, no complaints of SOB or difficulty breathing.
--- NOTE | 2025-08-30 17:41 | P.CDIM_ITS ---
PROVIDER RESPONSE TEXT: To clarify, the appropriate diagnosis supported by the clinical indicators: Yes, Cellulitis is associated with / due to the Diabetes QUERY TEXT: PHYSICIAN'S DOCUMENTATION REQUEST Date of Query: 08/29/2025 11:34 AM EST Patient Name: Radhika Vaca Admit Date: 08/24/2025 Dear Joellen Michelle MD, A review of the medical record indicates additional documentation may be needed. Please review below and update the documentation accordingly. Documentation includes the conditions of Cellulitis and Diabetes mellitus: Clinical Indicators: Progress notes: Bilateral lower extremity nonpurulent cellulitis. Patient started on Vanco and Zosyn in the ED. Painful legs bilaterally, redness. Started on Doxycycline and Ceftriaxone. DM SSI/Lantus ordered/Diabetic diet. Please clarify the relationship between these conditions: Yes, Cellulitis is associated with / due to the Diabetes No the Cellulitis is not associated with / due to Diabetes Other (explain) Clinically unable to determine (explain) Thank you, Sharda Kinsey, CCS, CDIS Use of terms such as suspected, likely, concern for, or probable (associated with a specific diagnosis that is being evaluated, monitored, or treated as if it exists) are acceptable and can be coded in the inpatient setting, when documented at the time of discharge. Please use your independent medical judgment in providing your response. THIS QUERY IS PART OF THE PERMANENT MEDICAL RECORD
== END 2025-08-30 16:45 | disposition skilled nursing facility (03) | DRG 637 ==
LOC: HO.ED 20:44 → HO.EDOVER 21:18 → HO.IMC 08-24 11:09 → HO.S3 08-28 16:27
PROVIDERS: Hospitalist; Internal Medicine; Physician Assistant; Admitting Provider Nurse Practitioner Family; Emergency Provider Emergency Medicine Emergency Medical Services; PCP Internal Medicine; Visit Provider Student in an Organized Health Care Education/Training Program
DX: E11.628 Type 2 diabetes mellitus with other skin complications (principal); I50.33 Acute on chronic diastolic (congestive) heart failure; J96.21 Acute and chronic respiratory failure with hypoxia; J96.22 Acute and chronic respiratory failure with hypercapnia; I13.0 Hypertensive heart and chronic kidney disease with heart failure and stage 1 through stage 4 chronic kidney disease, or unspecified chronic kidney disease; L03.116 Cellulitis of left lower limb; L03.115 Cellulitis of right lower limb; J44.1 Chronic obstructive pulmonary disease with (acute) exacerbation; N39.0 Urinary tract infection, site not specified; E66.2 Morbid (severe) obesity with alveolar hypoventilation; N18.4 Chronic kidney disease, stage 4 (severe); N17.9 Acute kidney failure, unspecified; E03.9 Hypothyroidism, unspecified; Z99.81 Dependence on supplemental oxygen; R32 Unspecified urinary incontinence; E11.22 Type 2 diabetes mellitus with diabetic chronic kidney disease; E78.5 Hyperlipidemia, unspecified; D50.9 Iron deficiency anemia, unspecified; Z96.0 Presence of urogenital implants; L30.4 Erythema intertrigo; E87.5 Hyperkalemia; F41.9 Anxiety disorder, unspecified; B95.5 Unspecified streptococcus as the cause of diseases classified elsewhere; Z20.822 Contact with and (suspected) exposure to COVID-19; Z87.891 Personal history of nicotine dependence; Z68.35 Body mass index [BMI] 35.0-35.9, adult; Z91.199 Patient's noncompliance with other medical treatment and regimen due to unspecified reason; Z79.4 Long term (current) use of insulin; Z79.890 Hormone replacement therapy; Z79.899 Other long term (current) drug therapy
CPT/HCPCS: 36415; 36600; 71045; 71046; 76775; 80048; 80053; 80076; 80202; 81001; 82550; 82565; 82570; 82803; 82947; 83605; 83735; 83880; 83930; 83935; 84132; 84443; 84484; 85025; 85999; 87040; 87507; 87637; 93005; 93306; 93970; 94640; 94660; 97162; 99285; J0696; J1271; J1644; J1938; J2270; J2543; J3360; J3373; Q9957

== ENCOUNTER → 2025-08-23 17:46 | Outpatient (BNV) | payer MEDICARE, SELFPAY | PROVIDERS: Admitting Provider Nurse Practitioner Family; Emergency Provider Emergency Medicine Emergency Medical Services; PCP Internal Medicine; Visit Provider Internal Medicine | DX: I44.4 Left anterior fascicular block (principal) | CPT/HCPCS: 93010 ==

== ENCOUNTER → 2025-08-23 18:32 | Outpatient (BNV) | payer MEDICARE, SELFPAY | PROVIDERS: Emergency Provider Emergency Medicine Emergency Medical Services; Visit Provider Student in an Organized Health Care Education/Training Program | DX: R60.0 Localized edema (principal); M79.661 Pain in right lower leg; M79.662 Pain in left lower leg; N17.9 Acute kidney failure, unspecified; N28.1 Cyst of kidney, acquired | CPT/HCPCS: 76775; 93970 ==

== ENCOUNTER 2025-08-23 21:09 | Outpatient (BNV) | payer MEDICARE, SELFPAY | END 2025-08-24 07:00 | PROVIDERS: Admitting Provider Nurse Practitioner Family; Emergency Provider Emergency Medicine Emergency Medical Services; Visit Provider Internal Medicine | DX: I27.20 Pulmonary hypertension, unspecified (principal); I34.81 Nonrheumatic mitral (valve) annulus calcification; I36.1 Nonrheumatic tricuspid (valve) insufficiency; I51.7 Cardiomegaly | CPT/HCPCS: 93306 ==

== ENCOUNTER 2025-08-23 21:09 | Outpatient (BNV) | payer MEDICARE, SELFPAY | END 2025-08-30 14:03 | PROVIDERS: Admitting Provider Nurse Practitioner Family; Emergency Provider Emergency Medicine Emergency Medical Services; PCP Internal Medicine; Visit Provider Internal Medicine Cardiovascular Disease | DX: R94.31 Abnormal electrocardiogram [ECG] [EKG] (principal); R07.9 Chest pain, unspecified | CPT/HCPCS: 93010 ==

== ENCOUNTER 2025-08-23 21:09 | Outpatient (BNV) | payer MEDICARE, SELFPAY | END 2025-08-30 10:14 | PROVIDERS: Admitting Provider Nurse Practitioner Family; Emergency Provider Emergency Medicine Emergency Medical Services; PCP Internal Medicine; Visit Provider Radiology Diagnostic Radiology | DX: R06.02 Shortness of breath (principal) | CPT/HCPCS: 71046 ==

== ENCOUNTER → 2025-08-23 21:09 | Outpatient (BNV) | payer MEDICARE, SELFPAY | PROVIDERS: Admitting Provider Nurse Practitioner Family; Emergency Provider Emergency Medicine Emergency Medical Services; PCP Internal Medicine; Visit Provider Internal Medicine | DX: L53.9 Erythematous condition, unspecified (principal) | CPT/HCPCS: 99222 ==

== ENCOUNTER → 2025-08-23 21:09 | Outpatient (BNV) | payer MEDICARE, SELFPAY | PROVIDERS: Admitting Provider Nurse Practitioner Family; Emergency Provider Emergency Medicine Emergency Medical Services; PCP Internal Medicine; Visit Provider Internal Medicine Hypertension Specialist | DX: N18.4 Chronic kidney disease, stage 4 (severe) (principal); N17.9 Acute kidney failure, unspecified | CPT/HCPCS: 99232 ==

== ENCOUNTER → 2025-08-23 21:09 | Outpatient (BNV) | payer MEDICARE, SELFPAY | PROVIDERS: Admitting Provider Nurse Practitioner Family; Emergency Provider Emergency Medicine Emergency Medical Services; Visit Provider Nurse Practitioner Family | DX: N17.9 Acute kidney failure, unspecified (principal); L03.116 Cellulitis of left lower limb; L03.115 Cellulitis of right lower limb | CPT/HCPCS: 99223 ==